=== PATIENT | female | born 1955 | race Caucasian/White ===

== ENCOUNTER 2024-06-28 13:15 | Outpatient (REF) | payer MEDICARE, SELFPAY ==
[2024-06-28 13:49] LABS: Basophils Absolute Auto 0.1 10^3/uL (0.0-0.1); Eosinophils Absolute Auto 0.3 10^3/uL (0.0-0.7); Eosinophils Percent Auto 4.6 % (0.9-7.0); Hematocrit 30.8 % (36.0-48.0); Hemoglobin 9.5 g/dL (12.0-16.0); Immature Granulocytes Abs Auto 0.02 10^3/uL (0.00-0.03); Immature Granulocytes Pct Auto 0.3 % (0.0-0.5); Lymphocytes Absolute Auto 1.2 10^3/uL (1.2-3.8); Mean Corpuscular HGB Conc 30.8 g/dL (29.9-35.2); Mean Corpuscular Hemoglobin 31.5 pg (26.7-34.0); Monocytes Absolute Auto 0.6 10^3/uL (0.3-0.8); Monocytes Percent Auto 8.9 % (1.7-12.0); Neutrophils Absolute Auto 4.1 10^3/uL (1.4-6.5); Neutrophils Percent Auto 66.2 % (43.0-75.0); Platelet Count 249 10^3/uL (150-450); Red Blood Count 3.02 10^6/uL (4.20-5.40); Red Cell Distribution Width 14.4 % (11.0-15.0); White Blood Count 6.2 10^3/uL (4.0-11.0)
[2024-06-28 13:57] LABS: INR 1.17; Prothrombin Time 12.2 sec (9.0-11.6)
[2024-06-28 14:00] LABS: Alanine Aminotransferase 18 U/L (14-59); Albumin Globulin Ratio 0.8; Albumin Level 2.6 g/dL (3.4-5.0); Alkaline Phosphatase 96 U/L (46-116); Anion Gap 14.7; Aspartate Amino Transferase 16 U/L (15-37); BUN Creatinine Ratio 18.2; Bilirubin Total 0.4 mg/dL (0.2-1.0); Calcium 8.7 mg/dL (8.5-10.1); Carbon Dioxide 22.3 mmol/L (21.0-32.0); Chloride 107 mmol/L (98-107); Chol HDL Ratio 1.8; Cholesterol 125 mg/dL (<=200); Estimated GFR (African America 39 (>=60); Estimated GFR (Non-African Ame 32 (>=60); Globulin 3.2 g/dL; Glucose 69 mg/dL (74-106); HDL Cholesterol 68 mg/dL (40-60); Sodium 140 mmol/L (136-145); Total Protein 5.8 g/dL (6.4-8.2); Triglycerides 73 mg/dL (<=150); VLDL CHOLESTEROL 14.6 mg/dL
== END 2024-06-28 13:16 | disposition home or self-care (01) ==
LOC: LAB 13:15
PROVIDERS: Visit Provider Nurse Practitioner Adult Health
DX: N25.81 Secondary hyperparathyroidism of renal origin (principal); I10 Essential (primary) hypertension; Z79.01 Long term (current) use of anticoagulants
CPT/HCPCS: 36415; 80053; 80061; 85025; 85610

== ENCOUNTER 2024-07-29 17:02 | Outpatient (REF) | payer MEDICARE, SELFPAY ==
--- OUTSIDE RECORDS SUMMARY | 2024-07-29 17:07 | XMS_ITS | CCD ---
Author Organization [facility] Care Team Providers Care Lastex Operator Name Role Phone MANJINDER, KHALED Admitting Unavailable MANJINDER, KHALED Attending Unavailable MANJINDER, KHALED Referring Unavailable OSOWIK, CHARLOTTE A Primary Care Unavailable MANJINDER, KHALED Admitting Unavailable MANJINDER, KHALED Attending Unavailable MANJINDER, KHALED Referring Unavailable OSOWIK, CHARLOTTE A Primary Care Unavailable UNKNOWN, PROVIDER Admitting Unavailable UNKNOWN, PROVIDER Attending Unavailable OSOWIK, CHARLOTTE A Referring Unavailable OSOWIK, CHARLOTTE A Primary Care Unavailable OSOWIK, CHARLOTTE A Primary Care Unavailable OSOWIK, CHARLOTTE A Referring Unavailable DEMSTEFANIEL, KIANNA H Attending Unavailable DEMIGUEL, KIANNA H Admitting Unavailable PHYSICIAN, DEFAULT Admitting Unavailable PHYSICIAN, DEFAULT Attending Unavailable OSOWIK, CHARLOTTE A Primary Care Unavailable Osowik, Charlotte A Primary Care Provider JANY SANTIZO Admitting Unavailable JANY SANTIZO Attending Unavailable OSOWIK, CHARLOTTE A Primary Care Unavailable OSOWIK, CHARLOTTE A Primary Care Unavailable Nate Peralta Unavailable Marie Wesley DO Primary Care Provider Fidelina Guillen MD Primary Care Provider Loreta Mcmillan NP Unavailable Fidelina Guillen MD Primary Care Provider ANNA CLEARY Attending Unavailable СЕРГЕЙ DALE Referring Unavailable FIDELINA GUILLEN Primary Care Unavailable Javan Julien MD Primary Care Provider Loreta Mcmillan CNP Unavailable [phone] BIB ALVA Referring Unavailable MANJINDER, KHALED AHMAD Primary Care Unavailabl e ALVA, BIB Referring Unavailable MANJINDER, KHALED AHMAD Primary Care Unavailabl e ALVA, BIB Referring Unavailable MANJINDER, KHALED AHMAD Primary Care Unavailabl e ALVA, BIB Attending Unavailable MANJINDER, KHALED AHMAD Primary Care Unavailabl e DEYANIRA, LORETA A Referring Unavailable MARYJANE, MARIE G Attending Unavailable DEYANIRA, LORETA A Attending Unavailable TODD, JACQUIE Todd Attending Unavailable DEYANIRA, LORETA A Attending Unavailable DEYANIRA, LORETA A Referring Unavailable DEYANIRA, LORETA A Referring Unavailable DEYANIRA, LORETA A Attending Unavailable DEYANIRA, LORETA A Referring Unavailable MORSE, STEPHAN Rodrigez Attending Unavailable MORSE, STEPHAN Rodrigez Referring Unavailable TODD, JACQUIE Todd Attending Unavailable JR. LINARES GEORGE C Attending Unavaila ble DEYANIRA, LORETA Multani Attending Unavailable GREG FLORES Referring Unavailable GREG FLORES Attending Unavailable SERVICE, JOBST Referring Unavailable MARYJANE, MARIE G Primary Care Unavailable SERVICE, JOBST Referring Unavailable MARYJANE, MARIE G Primary Care Unavailable SERVICE, JOBST Referring Unavailable MARYJANE, MARIE G Primary Care Unavailable MARCI CROFT Referring Unavailable WONDERLY, FIDELINA B Primary Care Unavailable SERVICE, JOBST Referring Unavailable WONDERLY, FIDELINA B Primary Care Unavailable SERVICE, JOBST Referring Unavailable WONDERLY, FIDELINA B Primary Care Unavailable MARYJANE, MARIE G Referring Unavailable MARYJANE, MARIE G Primary Care Unavailable SERVICE, JOBST Referring Unavailable WONDERLY, FIDELINA B Primary Care Unavailable SERVICE, JOBST Referring Unavailable WONDERLY, FIDELINA B Primary Care Unavailable SERVICE, JOBST Referring Unavailable WONDERLY, FIDELINA B Primary Care Unavailable SERVICE, JOBST Referring Unavailable WONDERLY, FIDELINA B Primary Care Unavailable SERVICE, JOBST Referring Unavailable WONDERLY, FIDELINA B Primary Care Unavailable SERVICE, JOBST Referring Unavailable WONDERLY, FIDELINA B Primary Care Unavailable KIANNA LUKE Referring Unavailable WONDERLY, FIDELINA B Primary Care Unavailable SERVICE, JOBST Referring Unavailable MARYJANE, MARIE G Primary Care Unavailable SERVICE, JOBST Referring Unavailable WONDERLY, FIDELINA B Primary Care Unavailable SERVICE, JOBST Referring Unavailable WONDERLY, FIDELINA B Primary Care Unavailable SERVICE, JOBST Referring Unavailable WONDERLY, FIDELINA B Primary Care Unavailable SERVICE, JOBST Referring Unavailable WONDERLY, FIDELINA B Primary Care Unavailable SERVICE, JOBST Referring Unavailable WONDERLY, FIDELINA B Primary Care Unavailable SERVICE, JOBST Referring Unavailable WONDERLY, FIDELINA B Primary Care Unavailable SERVICE, JOBST Referring Unavailable WONDERLY, FIDELINA B Primary Care Unavailable SERVICE, JOBST Referring Unavailable WONDERLY, FIDELINA B Primary Care Unavailable WONDERLY, FIDELINA B Primary Care Unavailable HAMLIN, RADHA Attending Unavailable HAMLIN, RADHA Referring Unavailable WONDERLY, FIDELINA B Primary Care Unavailable SERVICE, JOBST Referring Unavailable WONDERLY, FIDELINA B Primary Care Unavailable SERVICE, JOBST Referring Unavailable WONDERLY, FIDELINA B Primary Care Unavailable SERVICE, JOBST Referring Unavailable WONDERLY, FIDELINA B Primary Care Unavailable SERVICE, JOBST Referring Unavailable MARIE WESLEY G Primary Care Unavailable SERVICE, JOBST Referring Unavailable MARIE WESLEY G Primary Care Unavailable SERVICE, JOBST Referring Unavailable WONDERLY, FIDELINA B Primary Care Unavailable SERVICE, JOBST Referring Unavailable WONDERLY, FIDELINA B Primary Care Unavailable SERVICE, JOBST Referring Unavailable WONDERLY, FIDELINA B Primary Care Unavailable WONDERLY, FIDELINA B Primary Care Unavailable JOHANA KOVACS Attending Unavailable RADHA HAMLIN Attending Unavailable HAMLIN, RADHA Referring Unavailable WONDERLY, FIDELINA B Primary Care Unavailable JOHANA KOVACS Attending Unavailable JOHANA KOVACS Referring Unavailable WONDERLY, FIDELINA B Primary Care Unavailable NURIA BRADEN Attending Unavailable CHARLOTTE BOATENG Referring Unavailable WONDERLY, FIDELINA B Primary Care Unavailable WONDERLY, FIDELINA B Primary Care Unavailable CORDELL MORALES Attending Unavailable CARDIOLOGY, [facility] PH[facility]IAN Consulting Unavailable MONICA, ALANNA Z Admitting Unavailable RAFAT SEPULVEDA Consulting Unavailable JOHANA KOVACS Referring Unavailable WONDERLY, FIDELINA B Primary Care Unavailable WONDERLY, FIDELINA B Primary Care Unavailable RAFAT SEPULVEDA Attending Unavailable RAFAT SEPULVEDA Referring Unavailable WONDERLY, FIDELINA B Primary Care Unavailable JOSE G BETANCUR Attending Unavailable MARYJANE MARIE G Referring Unavailable MARYJANE, MARIE G Primary Care Unavailable GADANGI, MICAH JAQUELINE Referring Unavaila ble WONDERLY, FIDELINA B Primary Care Unavailable DANIEL MONTALVO Referring Unava ilable WONDERLY, FIDELINA B Primary Care Unavailable MONICA, ALANNA Z Referring Unavailable WONDERLY, FIDELINA B Primary Care Unavailable RAFAT SEPULVEDA Attending Unavailable WONDERLY, FIDELINA B Referring Unavailable WONDERLY, FIDELINA B Primary Care Unavailable MADELEINE KELLY Referring Unavailable FIDELINA GUILLEN Primary Care Unavailable RAFAT SEPULVEDA Attending Unavailable FIDELINA GUILLEN Referring Unavailable FIDELINA GUILLEN Primary Care Unavailable Allergies Allergy Classification Reported Allergen(s) Allergy Type Date of Onset Reaction(s) Facility Cephalosporins (antibiotic) (1 source) Cephalexin Drug Allergy 06-02-20 18 Rash, Swelling, Shortness of Breath [facility] HMG-CoA Reductase Inhibitors (statins) (1 source) atorvastatin Drug Allergy 06-02-20 18 Other: See Comments [facility] NIFEdipine (1 source) NIFEdipine Drug Allergy 06-02-20 18 Other: See Comments [facility] Penicillins (antibiotic) (2 sources) Dicloxacillin Drug Allergy 06-02-20 18 Rash, Swelling, Shortness of Breath, Hives [facility] (3 sources) Cephalexin Drug Allergy 10-13-19 14 Unknown [facility] (3 sources) NIFEdipine Drug Allergy 01-04-20 15 Unknown [facility] (6 sources) Penicillins; Translations: [PENICILLINS] Drug allergy (disorder) 10-13-19 14 [facility] (20 sources) Cephalexin; Translations: [CEPHALEXIN] Drug Allergy 03-27-20 14 Shortness Of Breath, Swelling, Rash [place], [place] (2 sources) Penicillins Propensity to adverse reactions to drug 03-27-20 14 Shortness Of Breath, Swelling, Rash [place], [place] (17 sources) atorvastatin; Translations: [ATORVASTATIN] Drug Allergy 10-25-19 17 muscle cramps [facility] (2 sources) Dicloxacillin Drug Allergy Unknown [facility] Other (2 sources) Penicillin Drug Allergy Unknown [facility] Other (19 sources) Dicloxacillin; Translations: [DICLOXACILLIN SODIUM] Drug Allergy 07-28-20 16 Shortness Of Breath, Swelling, Rash [facility] (20 sources) NIFEdipine; Translations: [NIFEDIPINE] Drug Allergy 10-08-19 17 Hypotension, Other: See Comments [facility] (14 sources) Penicillin G; Translations: [PENICILLIN G POTASSIUM] Drug Allergy 09-27-20 22 Hives [facility] (15 sources) Penicillins Propensity to adverse reactions to drug 10-08-19 17 Hives, Swelling [facility] (7 sources) atorvastatin Drug Allergy 10-25-19 17 Other: See Comments [facility] (3 sources) Nifedipine Propensity to adverse reactions 10-08-19 17 [facility] (3 sources) Penicillins Drug Intolerance 03-27-20 14 Hives, Rash, Shortness of breath, Swelling [facility] (1 source) atorvastatin; Translations: [ATORVASTATIN CALCIUM] Drug Allergy 06-02-20 18 [facility] Rep[facility] Medications Current Medications Medication Drug Class(es) Dates Sig (Normalized) Sig (Original) acetaminophen 500 mg oral tablet (11 sources) Start: 06-10-2024 take 2 tablets by mouth every eight hours acetaminophen (TYLENOL EXTRA STRENGTH) 500 mg tablet Take 2 tablets (1,000 mg total) by mouth every 8 (eight) hours. 30 tablet 06/10/2024 Active Start: 09-27-2022 take 2 tablets by mo uth every six hours as needed for pain acetaminophen (TYLENOL EXTRA STRENGTH) 500 mg tablet Take 2 tablets (1,000 mg total) by mouth every 6 (six) hours as needed for pain. 30 tablet 0 09/27/2022 Active acetaminophen 325 mg / butalbital 50 mg / caffeine 40 mg oral tablet (5 sources) Barbiturate, Central Nervous System Stimulant, Methylxanthine take 1 tablet by mouth every four hours as needed acetaminophen 325 mg-caffeine 40 mg-butalbital 50 mg (FIORICET) per tablet Take 1 tablet by mouth every 4 hours as needed for Headache. 0 Active amLODIPine 10 mg oral tablet (20 sources) Dihydropyridine Calcium Channel Amarjit Start: 09-07-20 23 take 1 tablet by mouth once daily amLODIPine (NORVASC) 10 mg tablet Take 10 mg by mouth once daily. 0 09/07/2023 Active Start: 03-07-2014 amLODIPine (NO RVASC) 5 MG tablet 5 mg 0 03/07/2014 Active take 2 tablets by mo uth once daily at breakfast amLODIPine (NORVASC) 5 mg tablet Take 2 tablets (10 mg total) by mouth daily with breakfast. 0 Active Ascorbic Acid (1 source) Vitamin C Vitamin C Active ascorbic acid 226 mg / beta carotene 16943 unt / cuprous oxide 0.8 mg / dl-alpha tocopheryl acetate 200 unt / zinc oxide 34.8 mg oral capsule (2 sources) Vitamin C PreserVision ARE DS - as directed Orally Active aspirin 81 mg delayed release oral tablet (7 sources) Platelet Aggregation Inhibitor, Nonsteroidal Anti-inflammatory Drug take 1 tablet by mouth once daily aspirin, enteric coated (ASPIRIN, ENTERIC COATED) 81 mg EC tablet Take 81 mg by mouth once daily. 0 Active take 1 tablet by mouth once kathi y aspirin 81 MG tablet Take 81 mg by mouth daily. 0 Active calcium citrate 950 mg oral tablet (2 sources) Start: 06-10-2024 calcium citrat e (CALCITRATE) 200 mg (950 mg) tablet Take 2 tablets (400 mg total) by mouth in the morning and 2 tablets (400 mg total) at noon and 2 tablets (400 mg total) in the evening. Take with meals. 06/10/2024 Active cholecalciferol 0.05 mg oral tablet (4 sources) Vitamin D Start: 06-10-2024 take 1 tablet by mouth in the morning cholecalciferol, vitamin D3, 2,000 units tablet Take 1 tablet (2,000 Units total) by mouth in the morning. 06/10/2024 Active take 1 tablet by mouth twice eloisa ly Cholecalciferol (VITAMIN D3) 125 MCG (5000 UT) TABS Take 1 tablet by mouth 2 times daily 0 Active cinnamon bark 500 mg oral capsule (5 sources) take 1 capsule by mouth once daily Cinnamon Bark 500 mg cap Take 500 mg by mouth once daily. 0 Active docusate sodium 100 mg oral capsule (12 sources) take 1 capsule by mouth once daily as needed docusate sodium (COLACE) 100 mg capsule 1 capsule as needed Orally Once a day for 30 day(s) 0 Active docusate sodium 50 mg / sennosides, half-way 8.6 mg oral tablet (2 sources) Start: 06-10-20 24 take 2 tablets by mouth once daily sennosides-docusat e sodium (SENOKOT-S) 8.6-50 mg Take 2 tablets by mouth nightly. 06/10/2024 Active DULoxetine 60 mg delayed release oral capsule (20 sources) Serotonin and Norepinephrine Reuptake Inhibitor Start: 06-17-20 End: 06-16-20 24 take 1 capsule by mouth once daily DULoxetine (CYMBALTA) 60 mg capsule Take 60 mg by mouth once daily. 0 06/17/2023 Active ezetimibe 10 mg oral tablet (10 sources) Dietary Cholesterol Absorption Inhibitor Start: 09-30-19 24 End: 09-29-19 25 take 1 tablet by mouth once daily ezetimibe (ZETIA) 10 mg tablet Take 1 tablet by mouth once daily. 0 09/30/2023 Active famotidine 40 mg oral tablet (5 sources) Histamine-2 Receptor Antagonist take 1 tablet by mouth once daily famotidine (PEPCID) 40 mg tablet Take 40 mg by mouth once daily. 0 Active ferrous sulfate 325 mg oral tablet (18 sources) take 1 tablet by mouth once daily at breakfast ferrous sulfate 325 (65 FE) mg tablet Take 1 tablet (325 mg total) by mouth daily with breakfast. Active flecainide acetate 100 mg oral tablet (20 sources) Antiarrhythmic Start: 04-13-20 flecainide (Tambocor) 100 MG tablet every 12 (twelve) hours. 0 04/13/2023 Active Start: 06-23-2016 take 1 tablet by cristy every twelve hours flecainide (TAMBOCOR) 100 mg tablet Take 1 tablet (100 mg total) by mouth every 12 (twelve) hours. 06/23/2016 Active Start: 03-07-2014 flecainide (TA MBOCOR) 100 MG tablet 100 mg 2 times daily 0 03/07/2014 Active Flecainide Aceta te 150 MG as directed Orally every 12 hrs Active FLUoxetine 40 mg oral capsule (7 sources) Serotonin Reuptake Inhibitor Start: 03-07-2014 FLUoxetine (PROZAC) 40 MG capsule furosemide 20 mg oral tablet (19 sources) Loop Diuretic Start: 09-15-2023 take 1 tablet by mouth once daily furosemide (LASIX) 20 mg tablet Take 20 mg by mouth once daily. 0 09/15/2023 Active gabapentin 100 mg oral capsule (7 sources) Anti-epileptic Agent Start: 06-10-2024 take 1 capsule by mouth three times daily gabapentin (NEURONTIN) 100 mg capsule Indications: Fracture of distal femur (CMS-HCC) Take 1 capsule (100 mg total) by mouth 3 (three) times a day. 21 capsule 06/10/2024 Active take 1 capsule by mo [facility] three times daily gabapentin (NEURONTIN) 300 mg capsule Ta ke 300 mg by mouth three times daily. 0 Active hydrALAZINE hydrochloride 50 mg oral tablet (20 sources) Arteriolar Vasodilator Start: 12-12-2022 End: 07-21-2024 take 1 tablet by mouth three times daily hydrALAZINE (APRESOLINE) 50 mg tablet Take 1 tablet (50 mg total) by mouth 3 (three) times a day. 12/12/2022 Active iv contrast (will be provided with radiology test) (2 sources) Start: 03-23-2024 End: 03-24-2024 iv contrast (will be provided with radiology test) Indications: Demyelinating disease of central nervous system (HCC) MRI CSP Inject, intravenously, once for 1 dose. No IV access, insert saline lock prior to the beginning of sedation, infusion, injection of imaging exam. Discontinue saline lock post exam. If Pt. has a central line or IVAD, may access for administration according to line specific nursing protocol. Once exam is complete flush line and de-access according to line specific nursing protocol in the MR contrast administration guidelines link. 1 Each 0 03/23/2024 03/24/2024 Active Start: 03-23-2024 End: 03-24-2024 inject 1 dose intravenously once iv contrast (will be provided with radiology test) Indications: Demyelinating disease of central nervous system (HCC) MRI TSP Inject, intravenously, once for 1 dose. No IV access, insert saline lock prior to the beginning of sedation, infusion, injection of imaging exam. Discontinue saline lock post exam. If Pt. has a central line or IVAD, may access for administration according to line specific nursing protocol. Once exam is complete flush line and de-access according to line specific nursing protocol in the MR contrast administration guidelines link. 1 Each 0 03/23/2024 03/24/2024 Active losartan potassium 25 mg oral tablet (20 sources) Angiotensin 2 Receptor Amarjit Start: 06-17-2023 End: 06-16-2024 take 1 tablet by mouth once daily losartan (COZAAR) 25 mg tablet Take 25 mg by mouth once daily. 0 06/17/2023 Active Magnesium (5 sources) take 1 tablet by mouth every twenty-four hours as needed Magnesium 250 mg tab Take 250 mg by mouth at bedtime as needed (Headaches). 0 Active magnesium oxide 400 mg oral tablet (2 sources) take 1 tablet by mouth once daily magnesium oxide (MAG-OX) 400 MG tablet Take 400 mg by mouth daily 0 Active melatonin 10 mg oral tablet (16 sources) take 1 tablet by mouth once daily melatonin 10 mg tablet Take 10 mg by mouth nightly. Active Melatonin 10 MG capsule Take by mouth. 0 Active Melatonin 10 MG as directed Orally Active methocarbamol 500 mg oral tablet (2 sources) Muscle Relaxant Start: 06-10-2024 methocarbamoL (ROBAXIN) 500 mg tablet Take 1 tablet (500 mg total) by mouth in the morning and 1 tablet (500 mg total) at noon and 1 tablet (500 mg total) in the evening and 1 tablet (500 mg total) before bedtime. 28 tablet 06/10/2024 Active methylphenidate hydrochloride 10 mg oral tablet (2 sources) Central Nervous System Stimulant take 1 tablet by mouth once daily methylphenidate (RITALIN) 10 MG tablet Take 10 mg by mouth daily. 0 Active 24 hr metoprolol succinate 50 mg extended release oral tablet (10 sources) beta-Adrenergic Amarjit take 1 tablet by mouth once daily metoprolol succinate ER (TOPROL XL) 50 mg 24 hr tablet Take 50 mg by mouth once daily. 0 Active take 1 tablet by mouth once kathi y metoprolol succinate (TOPROL XL) 25 MG extended release tablet Take 25 mg by mouth daily 0 Active Multiple Vitamins-Minerals ( PRESERVISION AREDS 2 PO) (3 sources) Multiple Vitamin s-Minerals (PRESERVISION AREDS 2 PO) Take by mouth. 0 Active NONFORMULARY (2 sources) NONFORMULARY Royer e 1 capsule by mouth Preser [facility] 2 1 capsule at night 0 Active NONFORMULARY Royer e 1 capsule by mouth Pres[facility] Areds 2 1 capsule at night 0 Suspended omega-3/dha/epa/fish oil (OMEGA-3 FISH OIL ORAL) (5 sources) omega-3/dha/epa/ fish oil (OMEGA-3 FISH OIL ORAL) Take 500 mg by mouth three times daily. 0 Active 24 hr oxybutynin chloride 15 mg extended release oral tablet (20 sources) Cholinergic Muscarinic Antagonist Start : 06-13 take 1 tablet by mouth once daily in the morning oxybutynin XL (DITROPAN XL) 15 mg 24 hr tablet take one tablet by mouth every morning 90 tablet 06/13/2024 Active Start: 03-20-2023 take 1 tablet by cristy th every twenty-four hours in the morning oxybutynin XL (DITROPAN XL) 15 mg 24 hr tablet Take 1 tablet (15 mg total) by mouth in the morning. 90 tablet 11 03/20/2023 Active Start: 08-07-2022 take 1 tablet by mouth once da jeffrey oxybutynin ER (DITROPAN XL) 15 mg 24 hr Extended Rel Tab Take 15 mg by mouth once daily. 0 08/07/2022 Active pantoprazole 40 mg delayed release oral tablet (19 sources) Proton Pump Inhibitor Start: 12-03-2022 End: 12-18-2023 take 1 tablet by mouth in the morning pantoprazole (PROTONIX) 40 mg EC tablet Indications: History of sleeve gastrectomy , Postsurgical malabsorption , Malnutrition following gastrointestinal surgery Take 1 tablet (40 mg total) by mouth in the morning. 90 tablet 3 12/18/2023 Active Phenazopyridine HCl & UTI Test (URISTAT UTI RELIEF HANNA CO) (3 sources) Phenazopyridine HCl & UTI Test (URISTAT UTI RELIEF HANNA CO) by Combination route. 0 Active Lucgzq-AxLpp-Vhsyh-Ca -Reno 3 ( + Complete Multi) 18-0.8 & 290 MG therapy (3 sources) Lhduuu-YeXke-Uyz hf-Ca -Reno 3 ( + Complete Multi) 18-0.8 & 290 MG therapy Take by mouth 0 Active [id number]-fttmd acid 29 mg iron- 1 mg chew (5 sources) take 1 mg by mouth once daily [id number] acid 29 mg iron- 1 mg chew Take 1 mg by mouth once daily. 0 Active Vit-Fe Fumarate-FA ( VITAMINS PO) (2 sources) Vit-Fe Fumarate-FA ( VITAMINS PO) Take by mouth 0 Active Vit-Fe Fumarate-FA ( VITAMINS PO) Take by mouth 0 Suspended rosuvastatin calcium 5 mg oral tablet (20 sources) HMG-CoA Reductase Inhibitor Start: 12-15-2022 take 1 tablet by mouth in the evening rosuvastatin (CRESTOR) 5 mg tablet Take 1 tablet (5 mg total) by mouth in the evening. 12/15/2022 Active take 1 tablet by mouth once kathi y rosuvastatin (CRESTOR) 10 mg tablet Take 10 mg by mouth once daily. 0 Active simvastatin 40 mg oral tablet (2 sources) HMG-CoA Reductase Inhibitor take 1 tablet by mouth once daily simvastatin (ZOCOR) 40 MG tablet Take 40 mg by mouth nightly 0 Active 1000 ml sodium chloride 9 mg/ml injection (1 source) Start: 0 0.9 % sodium chloride infusion solifenacin succinate 10 mg oral tablet (5 sources) Cholinergic Muscarinic Antagonist take 5 mg by mouth once daily solifenacin 10 mg tablet Take 5 mg by mouth once daily. 0 Active topiramate 50 mg oral tablet (20 sources) Start: 4 End: 4 take 1 tablet by mouth twice daily topiramate (TOPAMAX) 50 mg tablet Indications: Headache disorder , Neck pain TAKE ONE TABLET BY MOUTH TWICE A DAY 180 tablet 06/11/2022 Active take 1 tablet by mouth once kathi y topiramate (TOPAMAX) 50 mg tablet Take 50 mg by mouth once daily. 0 Active vit A/vit C/vit E/zinc/coppe r (PRESERVISION AREDS ORAL) (10 sources) take 1 tablet by cristy th in the morning vit A/vit C/vit E/zinc/copper (PRESERVISION AREDS ORAL) Take 1 tablet by mouth in the morning. Active take 1 tablet by mouth in the mo rning vit A/vit C/vit E/zinc/copper (PRESERVISION AREDS ORAL) Take 1 tablet by mouth in the morning. 0 Active vit C,K-Rm-spjro-lutein-zeax an (PRESERVISION AREDS 2) [phone] bg-tsvs-vq-mg cap (5 sources) vit C,E-Zn-coppr -lutein-zeaxan (PRESERVISION AREDS 2) [phone] ha-alwu-co-mg cap Take 1 capsule by mouth twice daily. 0 Active vitamin b12 0.1 mg oral tabl et (20 sources) Vitamin B12 cyanocobalamin ( vitamin B-12) 100 MCG tablet Take 10 tablets (1,000 mcg total) by mouth in the morning. Active take 1 tablet by mouth once kathi y cyanocobalamin (VITAMIN B-12) 1,000 mcg tab Take 1,000 mcg by mouth once daily. 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 or as directed by Natalie BAXTER (Medication Therapy Management). 90 tablet 1 02/23/2024 Active take 1 tablet by mouth once warf yordan (COUMADIN) 7.5 mg tablet Take 7.5 mg by mouth every Thursday,Thursday,Thursday,Thursday. 0 Active take 1 tablet by cristy th every week warfarin (COUMADIN) 3 MG tablet Take 3 m g by mouth once a week Thursday only 0 Active Completed/Discontinued Medications Medication Drug Class(es) Dates Sig (Normalized) Sig (Original) Cinnamon Preparation (1 source) Non-Standardize d Food Allergenic Extract End: 0 CINNAMON PO Take by mouth. 0 08/07/2020 Discontinued (LIST CLEANUP) hydroCHLOROthiazide 12.5 mg oral capsule (1 source) Thiazide Diuretic Start: 4 End: 0 hydrochlorothiazide (MICROZIDE) 12.5 MG capsule lisinopril 40 mg oral tablet (1 source) Angiotensin Converting Enzyme Inhibitor Start: 4 End: 0 lisinopril (PRINIVIL;ZESTRIL) 40 MG tablet Multiple Vitamins-Minerals (WOMENS MULTI VITAMIN & MINERAL PO) (1 source) End: 0 Multiple Vitamins-Minerals (WOMENS MULTI VITAMIN & MINERAL PO) Take by mouth. 0 08/07/2020 Discontinued (LIST CLEANUP) NON FORMULARY (2 sources) End: 4 NON FORMULARY Lymph system support from [employer] 0 10/28/2023 Discontinued (Therapy completed) Reno-3 Fatty Acids (FISH OIL PO) (1 source) End: 0 Reno-3 Fatty Acids (FISH OIL PO) Take by mouth. 0 08/07/2020 Discontinued (LIST CLEANUP) omeprazole 20 mg delayed release oral capsule (1 source) Proton Pump Inhibitor Start: 4 End: 0 omeprazole (PRILOSEC) 20 MG capsule pregabalin 150 mg oral capsule (1 source) Start: 4 End: 0 LYRICA 150 MG capsule traMADol hydrochloride 50 mg oral tablet (1 source) Opioid Agonist Start: 4 End: 0 traMADol (ULTRAM) 50 MG tablet Problems Active Problems Problem Classification Problem Date Documented Date Episodic/Chronic Administrative/social admission (2 sources) Patient encounter status; Translations: [Persons encountering health services in other specified circumstances] 11-01-2023 Episodic Asthma (16 sources) Asthma; Translations: [Unspecified asthma, uncomplicated] Onset: 7 11-10-2016 Chronic Cardiac dysrhythmias (20 sources) Paroxysmal atrial fibrillation; Translations: [Unspecified atrial fibrillation] Onset: 4 Resolved: 3 08-09-2023 Chronic Cataract (20 sources) Nuclear sclerotic cataract; Translations: [Age-related nuclear cataract, bilateral] Onset: 6 Resolved: 3 07-28-2016 Chronic Chronic kidney disease (20 sources) Chronic kidney disease stage 3B ; Translations: [Stage 3b chronic kidney disease] Onset: 7 Resolved: 3 08-10-2023 Chronic Chronic kidney disease (1 source) Chronic kidney disease; Translations: [Chronic kidney disease, stage 3b] Onset: 3 Complications of surgical procedures or medical care (14 sources) Post-surgical malabsorption; Translations: [Postsurgical malabsorption, not elsewhere classified] Onset: 4 10-27-2023 Chronic Disorders of lipid metabolism (19 sources) Hyperlipidemia; Translations: [Hyperlipidemia, unspecified] Onset: 7 08-09-2023 Chronic E Codes: Fall (1 source) Unspecified fall, initial encounter; Translations: [Unspecified fall, initial encounter] Onset: 4 Episodic E Codes: Fall (2 sources) Fall Onset: 4 Essential hypertension (20 sources) Essential (primary) hypertension; Translations: [Benign essential hypertension] Onset: 4 08-09-2023 Chronic Fracture of lower limb (2 sources) Unspecified fracture of lower end of right femur, initial encounter for closed fracture; Translations: [Unspecified fracture of lower end of unspecified femur, initial encounter for closed fracture] Onset: 4 Episodic Fracture of lower limb (4 sources) Closed supracondylar fracture of femur; Translations: [Displaced supracondylar fracture without intracondylar extension of lower end of left femur, initial encounter for closed fracture] Onset: 4 06-03-2024 Episodic Genitourinary symptoms and ill-defined conditions (17 sources) Unspecified urinary incontinence; Translations: [Urge incontinence of urine] Onset: 8 01-27-2023 Chronic Genitourinary symptoms and ill-defined conditions (11 sources) Nocturia; Translations: [Urgent desire to urinate] Onset: 8 10-28-2023 Episodic Hypertension with complications and secondary hypertension (7 sources) Secondary hypertension; Translations: [Other secondary hypertension] Onset: 2 11-01-2023 Chronic Mood disorders (20 sources) Moderate major depression, single episode; Translations: [Major depressive disorder, single episode, moderate] Onset: 7 10-27-2016 Chronic Osteoarthritis (20 sources) Arthritis; Translations: [Unspecified osteoarthritis, unspecified site] Onset: 4 11-10-2016 Chronic Osteoporosis (17 sources) Senile osteoporosis; Translations: [Age-related osteoporosis without current pathological fracture] Onset: 7 11-10-2016 Chronic Other bone disease and musculoskeletal deformities (5 sources) Idiopathic kyphoscoliosis; Translations: [Other idiopathic scoliosis, site unspecified] Onset: 4 10-28-2023 Chronic Other congenital anomalies (5 sources) Congenital spondylolisthesis; Translations: [Congenital spondylolisthesis] Onset: 4 11-01-2023 Chronic Other connective tissue disease (5 sources) Artificial knee joint present; Translations: [Presence of artificial knee joint, bilateral] Onset: 2 11-01-2023 Chronic Other connective tissue disease (1 source) Unspecified disorder of synovium and tendon, right shoulder; Translations: [Unspecified disorder of synovium and tendon, right shoulder] Onset: 4 Episodic Other diseases of kidney and ureters (16 sources) Hyperparathyroidism due to renal insufficiency; Translations: [Secondary hyperparathyroidism of renal origin] Onset: 7 10-27-2016 Chronic Other diseases of veins and lymphatics (20 sources) Lymphedema; Translations: [Lymphedema, not elsewhere classified] Onset: 4 08-10-2023 Chronic Other diseases of veins and lymphatics (5 sources) Lymphedema, not elsewhere classified; Translations: [Other lymphedema] Onset: 3 10-28-2023 Chronic Other ear and sense organ disorders (2 sources) Decreased hearing ; Translations: [Unspecified hearing loss, unspecified ear] 11-01-2023 Chronic Other eye disorders (1 source) Bilateral vitreous floaters; Translations: [Other vitreous opacities, bilateral] 12-18-2023 Chronic Other eye disorders (1 source) Bilateral posterior vitreous detachment; Translations: [Vitreous degeneration, bilateral] 12-18-2023 Chronic Other eye disorders (1 source) Other vitreous opacities, bilateral; Translations: [Other vitreous opacities, bilateral] Onset: 4 Chronic Other eye disorders (1 source) Vitreous degeneration, bilateral; Translations: [Vitreous degeneration, bilateral] Onset: 4 Chronic Other eye disorders (1 source) Dry eyes; Translations: [Dry eye syndrome of bilateral lacrimal glands] 12-18-2023 Episodic Other eye disorders (1 source) Dry eye syndrome of bilateral lacrimal glands; Translations: [Dry eye syndrome of bilateral lacrimal glands] Onset: 4 Episodic Other gastrointestinal disorders (2 sources) Diarrhea; Translations: [Diarrhea, unspecified] 11-01-2023 Episodic Other hematologic conditions (1 source) History of anemia; Translations: [Personal history of diseases of the blood and blood-forming organs and certain disorders involving the immune mechanism] 10-27-2023 Episodic Other nervous system disorders (15 sources) Neuropathy; Translations: [Polyneuropathy, unspecified] Onset: 3 09-16-2019 Chronic Other nervous system disorders (3 sources) Polyneuropathy; Translations: [Polyneuropathy, unspecified] Onset: 2 06-17-2023 Chronic Other nervous system disorders (2 sources) Demyelinating disease of central nervous system; Translations: [Demyelinating disease of central nervous system, unspecified] 03-23-2024 Chronic Other nervous system disorders (1 source) Demyelinating disease of central nervous system, unspecified; Translations: [Demyelinating disease of central nervous system (HCC)] Onset: 4 Chronic Other nervous system disorders (1 source) Idiopathic progressive polyneuropathy; Translations: [Idiopathic progressive neuropathy] 05-12-2024 Chronic Other nervous system disorders (2 sources) Ataxia; Translations: [Ataxia, unspecified] 03-23-2024 Episodic Other nervous system disorders (1 source) Ataxia, unspecified; Translations: [Ataxia] Onset: 4 Episodic Other nutritional; endocrine; and metabolic disorders (14 sources) Obesity; Translations: [Obesity, unspecified] Onset: 4 08-10-2023 Chronic Other nutritional; endocrine; and metabolic disorders (1 source) H/O: raised blood lipids; Translations: [Personal history of other endocrine, nutritional and metabolic disease] 10-27-2023 Episodic Peripheral and visceral atherosclerosis (2 sources) Atherosclerosis of aorta; Translations: [Atherosclerosis of aorta] 11-01-2023 Chronic Residual codes; unclassified (14 sources) Sleep apnea; Translations: [Sleep apnea, unspecified] Onset: 3 09-16-2019 Chronic Spondylosis; intervertebral disc disorders; other back problems (12 sources) Low back pain; Translations: [Low back pain] 09-16-2019 Episodic Unclassified (2 sources) DX Onset: 8 Unclassified (1 source) PVD Onset: 4 Unclassified (1 source) EMS Onset: 4 Unclassified (1 source) Establish Care Onset: 4 Unclassified (1 source) Post-op Onset: 4 Unclassified (1 source) EMS//// 68 yo F Onset: 4 Unclassified (1 source) Eye Exam Onset: 4 Past or Other Problems Problem Classification Problem Date Documented Da te Episodic/Chronic Anxiety disorders (19 sources) Mixed anxiety and depressive disorder; Translations: [Other specified anxiety disorders] Onset: 7 Resolved: 3 08-10-2023 Chronic Blindness and vision defects (16 sources) Visual impairment; Translations: [Unspecified visual loss] Onset: 3 Resolved: 3 08-10-2023 Chronic Blindness and vision defects (20 sources) Bilateral hyperopia of eyes; Translations: [Hypermetropia, bilateral] Onset: 9 Resolved: 3 03-18-2019 Episodic Conditions associated with dizziness or vertigo (3 sources) Dizziness; Translations: [Dizziness and giddiness] Onset: 3 09-30-2023 Episodic Conduction disorders (17 sources) Atrioventricular block, first degree; Translations: [First degree atrioventricular block] Onset: 7 Resolved: 3 08-10-2023 Chronic Deficiency and other anemia (16 sources) Iron deficiency anemia; Translations: [Iron deficiency anemia, unspecified] Onset: 7 08-10-2023 Episodic Deficiency and other anemia (19 sources) Anemia; Translations: [Anemia, unspecified] Onset: 7 Resolved: 3 08-10-2023 Episodic Deficiency and other anemia (5 sources) Iron deficiency anemia secondary to inadequate dietary iron intake; Translations: [Other iron deficiency anemias] Onset: 7 10-28-2023 Episodic Disorders of teeth and jaw (14 sources) Tooth disorder; Translations: [Disorder of teeth and supporting structures, unspecified] Onset: 3 Resolved: 3 08-10-2023 Episodic Esophageal disorders (20 sources) Gastroesophageal reflux disease without esophagitis; Translations: [Gastro-esophageal reflux disease without esophagitis] Onset: 7 Resolved: 0 02-08-2019 Chronic Fluid and electrolyte disorders (14 sources) Hypokalemia; Translations: [Hypokalemia] Onset: 3 08-10-2023 Episodic Gastrointestinal hemorrhage (14 sources) Gastrointestinal hemorrhage; Translations: [Gastrointestinal hemorrhage, unspecified] Onset: 3 Resolved: 3 08-10-2023 Episodic Headache; including migraine (14 sources) Migraine; Translations: [Migraine, unspecified, not intractable, without status migrainosus] Onset: 3 Resolved: 3 08-10-2023 Chronic Headache; including migraine (8 sources) Headache disorder; Translations: [Other headache syndrome] Onset: 7 09-30-2023 Episodic Malaise and fatigue (19 sources) Fatigue; Translations: [Other fatigue] Onset: 8 Resolved: 3 08-10-2023 Episodic Mood disorders (11 sources) Mood disorders Onset: 3 Resolved: 4 08-09-2023 Nonspecific chest pain (14 sources) Chest pain; Translations: [Chest pain, unspecified] Onset: 3 Resolved: 4 08-09-2023 Episodic Other aftercare (19 sources) Long-term current use of anticoagulant; Translations: [terminal superintendent (current) use of anticoagulants] Onset: 7 10-02-2023 Episodic Other aftercare (1 source) intermediate (current) use of anticoagulants; Translations: [intermediate (current) use of anticoagulants] Onset: 8 Episodic Other and ill-defined heart disease (16 sources) Left ventricular hypertrophy; Translations: [Cardiomegaly] Onset: 7 Resolved: 3 08-10-2023 Chronic Other circulatory disease (2 sources) Postural orthostatic tachycardia syndrome ; Translations: [Postural orthostatic tachycardia syndrome (POTS)] Onset: 4 Episodic Other connective tissue disease (14 sources) Muscle weakness; Translations: [Muscle weakness (generalized)] Onset: 9 Resolved: 3 08-10-2023 Episodic Other connective tissue disease (14 sources) Recurrent falls ; Translations: [Repeated falls] Onset: 3 Resolved: 3 08-10-2023 Episodic Other connective tissue disease (5 sources) Falls; Translations: [Repeated falls] Onset: 3 10-28-2023 Episodic Other connective tissue disease (5 sources) Neurogenic claudication; Translations: [Other symptoms and signs involving the nervous system] Onset: 4 11-01-2023 Episodic Other connective tissue disease (3 sources) Tear of right rotator cuff; Translations: [Unspecified rotator cuff tear or rupture of right shoulder, not specified as traumatic] Onset: 2 09-30-2023 Episodic Other diseases of bladder and urethra (20 sources) Disorder of bladder; Translations: [Bladder disorder, unspecified] Onset: 7 Resolved: 3 08-10-2023 Chronic Other ear and sense organ disorders (16 sources) Tinnitus; Translations: [Tinnitus, unspecified ear] Onset: 3 Resolved: 3 08-10-2023 Episodic Other eye disorders (16 sources) Vitreous floaters of right eye; Translations: [Other vitreous opacities, right eye] Onset: 9 Resolved: 3 08-10-2023 Chronic Other eye disorders (16 sources) Posterior vitreous detachment of right eye; Translations: [Vitreous degeneration, right eye] Onset: 9 Resolved: 3 08-10-2023 Chronic Other eye disorders (14 sources) Vitreous syneresis; Translations: [Other vitreous opacities, left eye] Onset: 9 Resolved: 3 08-10-2023 Chronic Other eye disorders (20 sources) Tear film insufficiency; Translations: [Dry eye syndrome of unspecified lacrimal gland] Onset: 6 Resolved: 3 08-10-2023 Episodic Other gastrointestinal disorders (16 sources) History of bariatric surgical procedure; Translations: [Bariatric surgery status] Onset: 9 Resolved: 3 08-10-2023 Episodic Other hematologic conditions (3 sources) ESR raised; Translations: [Elevated erythrocyte sedimentation rate] Onset: 9 09-30-2023 Episodic Other hematologic conditions (1 source) Personal history of diseases of the blood and blood-forming organs and certain disorders involving the immune mechanism; Translations: [Personal history of diseases of the blood and blood-forming organs and certain disorders involving the immune mechanism] Onset: 4 Episodic Other injuries and conditions due to external causes (14 sources) Conjunctival foreign body; Translations: [Foreign body in conjunctival sac, left eye, initial encounter] Onset: 6 Resolved: 4 08-10-2023 Episodic Other lower respiratory disease (1 source) Other forms of dyspnea; Translations: [OTHER FORMS OF DYSPNEA] Onset: 8 Episodic Other lower respiratory disease (3 sources) Dyspnea; Translations: [Dyspnea, unspecified] Onset: 3 09-30-2023 Episodic Other nervous system disorders (11 sources) Disorder of muscle; Translations: [Myopathy, unspecified] Onset: 9 Resolved: 3 08-10-2023 Chronic Other nervous system disorders (16 sources) Magnetic resonance imaging of brain abnormal; Translations: [White matter disease, unspecified] Onset: 9 Resolved: 3 08-10-2023 Episodic Other nervous system disorders (10 sources) Abnormal gait; Translations: [Unspecified abnormalities of gait and mobility] Onset: 8 11-01-2023 Episodic Other nervous system disorders (3 sources) White matter disease; Translations: [White matter disease, unspecified] Onset: 3 06-17-2023 Episodic Other nervous system disorders (3 sources) Impairment of balance; Translations: [Other abnormalities of gait and mobility] Onset: 3 06-17-2023 Episodic Other non-traumatic joint disorders (11 sources) Rotator cuff arthropathy of right shoulder; Translations: [Other specific arthropathies, not elsewhere classified, right shoulder] Onset: 9 Resolved: 3 08-10-2023 Chronic Other non-traumatic joint disorders (16 sources) Pain in right shoulder; Translations: [Pain in joint, shoulder region] Onset: 9 Resolved: 3 08-10-2023 Episodic Other nutritional; endocrine; and metabolic disorders (20 sources) Body mass index 40+ - severely obese; Translations: [Morbid (severe) obesity due to excess calories] Onset: 7 Resolved: 8 01-29-2018 Chronic Other nutritional; endocrine; and metabolic disorders (11 sources) Severe obesity; Translations: [Morbid (severe) obesity due to excess calories] Onset: 8 Resolved: 0 08-10-2020 Chronic Other nutritional; endocrine; and metabolic disorders (1 source) Personal history of other endocrine, nutritional and metabolic disease; Translations: [Personal history of other endocrine, nutritional and metabolic disease] Onset: 4 Episodic Other screening for suspected conditions (not mental disorders or infectious disease) (19 sources) Prolonged QT interval; Translations: [Abnormal electrocardiogram [ECG] [EKG]] Onset: 9 Resolved: 3 08-10-2023 Episodic Residual codes; unclassified (3 sources) Other amnesia; Translations: [OTHER AMNESIA] Onset: 8 Episodic Residual codes; unclassified (16 sources) H/O: endocrine disorder; Translations: [Personal history of other specified conditions] Onset: 9 03-03-2019 Episodic Residual codes; unclassified (18 sources) History of sleeve gastrectomy; Translations: [Acquired absence of stomach [part of]] Onset: 1 08-30-2021 Episodic Residual codes; unclassified (14 sources) Edema; Translations: [Edema, unspecified] Onset: 3 Resolved: 3 08-10-2023 Episodic Residual codes; unclassified (3 sources) Insomnia; Translations: [Insomnia, unspecified] Onset: 2 09-30-2023 Episodic Residual codes; unclassified (2 sources) Acquired absence of stomach [part of]; Translations: [Acquired absence of stomach (part of)] Onset: 1 Episodic Retinal detachments; defects; vascular occlusion; and retinopathy (16 sources) Bilateral drusen of maculae; Translations: [Drusen (degenerative) of macula, bilateral] Onset: 6 Resolved: 3 08-10-2023 Chronic Spondylosis; intervertebral disc disorders; other back problems (20 sources) Cervical spondylosis; Translations: [Spondylosis without myelopathy or radiculopathy, cervical region] Onset: 4 Resolved: 3 08-10-2023 Chronic Superficial injury; contusion (3 sources) Contusion of left thigh; Translations: [Contusion of left thigh, initial encounter] Onset: 3 09-30-2023 Episodic Systemic lupus erythematosus and connective tissue disorders (16 sources) Temporal arteritis; Translations: [Other giant cell arteritis] Onset: 8 Resolved: 3 08-10-2023 Chronic Unclassified (11 sources) Onset: 7 09-13-2017 Urinary tract infections (13 sources) Urinary tract infection, site not specified; Translations: [Urinary tract infectious disease] Onset: 2 Resolved: 3 Episodic Viral infection (14 sources) Infectious mononucleosis; Translations: [Infectious mononucleosis, unspecified without complication] Onset: 3 Resolved: 4 08-10-2023 Episodic Results Test Name Value Interpretation Reference Range Facility XR FEMUR LT 2+ VIEWSon 07-21 XR FEMUR LT 2+ VIEWS XR FEMUR LT 2+ VIEWS Indication: Follow-up fracture status post ORIF. TECHNIQUE: Frontal and lateral views of left femur are prior exam dated 06/03/2024. FINDINGS: Hardware appears intact. Probable hematoma within soft tissues lateral to proximal femur shows interval decrease in size measuring 11 cm today. Exuberant callus formation about distal femoral fracture with unchanged alignment. IMPRESSION: 1. Satisfactory appearing healing comminuted minimally displaced distal femoral fracture. No evidence for hardware complication. Finalized by Pooja Garrido MD on 07/21/2024 8:31 AM Normal [facility] BASIC METABOLIC PANLon 06-10 Anion gap [Moles/Vol] 8 mmol/L Normal 5-15 [facility] Comment on above: Performed By: #### 4 8664-7, PINR, 14121-8, 1798-8, 3040-3, 5643-2 #### [facility] ([id number]) [address], [address] [place] [address] Calcium [Mass/Vol] 8.7 mg/dL Normal 8.5-10.5 [facility] Comment on above: Performed By: #### 4 8664-7, PINR, 46641-5, 1798-8, 3040-3, 5643-2 #### [facility] ([id number]) [address], [address] [place] [address] Chloride [Moles/Vol] 106 mmol/L Normal 98-109 [facility] Comment on above: Performed By: #### 4 8664-7, PINR, 01182-3, 1798-8, 3040-3, 5643-2 #### [facility] ([id number]) [address], [address] [place] [address] CO2 [Moles/Vol] 27 mmol/L Normal 22-32 [facility] Comment on above: Performed By: #### 4 8664-7, PINR, 07079-0, 1798-8, 3040-3, 5643-2 #### [facility] ([id number]) [address], [address] [place] [address] Creatinine [Mass/Vol] 1.58 mg/dL High 0.40-1.00 [facility] Comment on above: Result Comment: METH OD TRACEABLE TO IDMS STANDARD Performed By: #### 4 8664-7, PINR, 19210-6, 1798-8, 3040-3, 5643-2 #### [facility] ([id number]) [address], [address] [place] [address] GFR/1.73 sq M.predicted among non-blacks MDRD (S/P/Bld) [Vol rate/Area] 35 mL/min/{1.73_m2} Low >59 [facility] Comment on above: Result Comment: Reported eGFR is based on the CKD-EPI 2020 equation that does not use a race coefficient. Performed By: #### 4 8664-7, PINR, 13989-3, 1798-8, 3040-3, 5643-2 #### [facility] ([id number]) [address], [address] [place] [address] Glucose [Mass/Vol] 111 mg/dL High 65-99 [facility] Comment on above: Performed By: #### 4 8664-7, PINR, 40117-5, 1798-8, 3040-3, 5643-2 #### [facility] ([id number]) [address], [address] [place] [address] Potassium [Moles/Vol] 3.7 mmol/L Normal 3.5-5.0 [facility] Comment on above: Performed By: #### 4 8664-7, PINR, 17121-8, 1798-8, 3040-3, 5643-2 #### [facility] ([id number]) [address], [address] [place] [address] Sodium [Moles/Vol] 141 mmol/L Normal 134-146 [facility] Comment on above: Performed By: #### 4 8664-7, PINR, 26714-6, 1798-8, 3040-3, 5643-2 #### [facility] ([id number]) [address], [address] [place] [address] Urea nitrogen [Mass/Vol] 34 mg/dL High 5-27 [facility] Comment on above: Performed By: #### 4 8664-7, PINR, 42310-4, 1798-8, 3040-3, 5643-2 #### [facility] ([id number]) [address], [address] [place] [address] COMPLETE BLOOD COUNTon 06-10 Erythrocyte distribution width (RBC) [Ratio] 14.6 % Normal 11.5-15.0 [facility] Comment on above: Performed By: #### 4 8664-7, PINR, 82607-2, 1798-8, 3040-3, 5643-2 #### [facility] ([id number]) [address], [address] [place] [address] Hematocrit (Bld) [Volume fraction] 25.1 % Low 35-47 [facility] Comment on above: Performed By: #### 4 8664-7, PINR, 31489-7, 1798-8, 3040-3, 5643-2 #### [facility] ([id number]) [address], [address] [place] [address] Hemoglobin (Bld) [Mass/Vol] 8.2 g/dL Low 11.7-15.5 [facility] Comment on above: Performed By: #### 4 8664-7, PINR, 86605-3, 1798-8, 3040-3, 5643-2 #### [facility] ([id number]) [address], [facility] [address] [place] [address] MCH (RBC) [Entitic mass] 31.6 pg Normal 27-34 [facility] Comment on above: Performed By: #### 4 8664-7, PINR, 65094-7, 1798-8, 3040-3, 5643-2 #### [facility] ([id number]) [address], [address] [place] [address] MCHC (RBC) [Mass/Vol] 32.6 g/dL Normal 32-36 [facility] Comment on above: Performed By: #### 4 8664-7, PINR, 68557-5, 1798-8, 3040-3, 5643-2 #### [facility] ([id number]) [address], [address] [place] [address] MCV (RBC) [Entitic vol] 97 fL Normal 80-100 [facility] Comment on above: Performed By: #### 4 8664-7, PINR, 44092-1, 1798-8, 3040-3, 5643-2 #### [facility] ([id number]) [address], [address] [place] [address] Platelet mean volume (Bld) [Entitic vol] 7.1 fL Normal 7-12 [facility] Comment on above: Performed By: #### 4 8664-7, PINR, 76450-2, 1798-8, 3040-3, 5643-2 #### [facility] ([id number]) [address], [address] [place] [address] Platelets (Bld) [#/Vol] 227 10*3/uL Normal 150-450 [facility] Comment on above: Performed By: #### 4 8664-7, PINR, 99578-5, 1798-8, 3040-3, 5643-2 #### [facility] ([id number]) [address], [address] [place] [address] RBC COUNT 2.60 X10E12/L Low 3.80-5.20 [facility] Comment on above: Performed By: #### 4 8664-7, PINR, 21967-3, 1798-8, 3040-3, 5643-2 #### [facility] ([id number]) [address], [address] [place] [address] WBC (Bld) [#/Vol] 7.9 10*3/uL Normal 4.0-11.0 [facility] Comment on above: Performed By: #### 4 8664-7, PINR, 28704-5, 1798-8, 3040-3, 5643-2 #### [facility] ([id number]) [address], [address] [place] [address] PROTIME AND INRon 06-10-2024 INR Coag (PPP) [Relative time] 2.6 {INR} High 0.8-1.1 [facility] Comment on above: Performed By: #### 4 8664-7, PINR, 41369-0, 1798-8, 3040-3, 5643-2 #### [facility] ([id number]) [address], [address] [place] [address] PT Coag (PPP) [Time] 29.1 s High 9.8-13.2 [facility] Comment on above: Performed By: #### 4 8664-7, PINR, 27105-5, 1798-8, 3040-3, 5643-2 #### [facility] ([id number]) [address], [address] [place] [address] BASIC METABOLIC PANLon 06-09 Anion gap [Moles/Vol] 8 mmol/L Normal 5-15 [facility] Comment on above: Performed By: #### 4 8664-7, PINR, 72649-5, 1798-8, 3040-3, 5643-2 #### [facility] ([id number]) [address], [address] [place] [address] Calcium [Mass/Vol] 8.7 mg/dL Normal 8.5-10.5 [facility] Comment on above: Performed By: #### 4 8664-7, PINR, 15457-2, 1798-8, 3040-3, 5643-2 #### [facility] ([id number]) [address], [address] [place] [address] Chloride [Moles/Vol] 106 mmol/L Normal 98-109 [facility] Comment on above: Performed By: #### 4 8664-7, PINR, 12478-2, 1798-8, 3040-3, 5643-2 #### [facility] ([id number]) [address], [address] [place] [address] CO2 [Moles/Vol] 27 mmol/L Normal 22-32 [facility] Comment on above: Performed By: #### 4 8664-7, PINR, 27699-5, 1798-8, 3040-3, 5643-2 #### [facility] ([id number]) [address], [address] [place] [address] Creatinine [Mass/Vol] 1.40 mg/dL High 0.40-1.00 [facility] Comment on above: Result Comment: METH OD TRACEABLE TO IDMS STANDARD Performed By: #### 4 8664-7, PINR, 91889-1, 1798-8, 3040-3, 5643-2 #### [facility] ([id number]) [address], [address] [place] [address] GFR/1.73 sq M.predicted among non-blacks MDRD (S/P/Bld) [Vol rate/Area] 41 mL/min/{1.73_m2} Low >59 [facility] Comment on above: Result Comment: Reported eGFR is based on the CKD-EPI 2020 equation that does not use a race coefficient. Performed By: #### 4 8664-7, PINR, 74300-8, 1798-8, 3040-3, 5643-2 #### [facility] ([id number]) [address], [address] [place] [address] Glucose [Mass/Vol] 89 mg/dL Normal 65-99 [facility] Comment on above: Performed By: #### 4 8664-7, PINR, 16591-2, 1798-8, 3040-3, 5643-2 #### [facility] ([id number]) [address], [address] [place] [address] Potassium [Moles/Vol] 4.3 mmol/L Normal 3.5-5.0 [facility] Comment on above: Performed By: #### 4 8664-7, PINR, 86397-7, 1798-8, 3040-3, 5643-2 #### [facility] ([id number]) [address], [address] [place] [address] Sodium [Moles/Vol] 141 mmol/L Normal 134-146 [facility] Comment on above: Performed By: #### 4 8664-7, PINR, 24516-0, 1798-8, 3040-3, 5643-2 #### [facility] ([id number]) [address], [address] [place] [address] Urea nitrogen [Mass/Vol] 31 mg/dL High 5-27 [facility] Comment on above: Performed By: #### 4 8664-7, PINR, 79230-2, 1798-8, 3040-3, 5643-2 #### [facility] ([id number]) [address], [facility] [address] [place] [address] COMPLETE BLOOD COUNTon 06-09 Erythrocyte distribution width (RBC) [Ratio] 14.1 % Normal 11.5-15.0 [facility] Comment on above: Performed By: #### 4 8664-7, PINR, 82115-3, 1798-8, 3040-3, 5643-2 #### [facility] ([id number]) [address], [facility] [address] [place] [address] Hematocrit (Bld) [Volume fraction] 23.7 % Low 35-47 [facility] Comment on above: Performed By: #### 4 8664-7, PINR, 26758-0, 1798-8, 3040-3, 5643-2 #### [facility] ([id number]) [address], [facility] [address] [place] [address] Hemoglobin (Bld) [Mass/Vol] 7.7 g/dL Low 11.7-15.5 [facility] Comment on above: Performed By: #### 4 8664-7, PINR, 01724-0, 1798-8, 3040-3, 5643-2 #### [facility] ([id number]) [address] [address] [place] [address] MCH (RBC) [Entitic mass] 31.3 pg Normal 27-34 [facility] Comment on above: Performed By: #### 4 8664-7, PINR, 91115-3, 1798-8, 3040-3, 5643-2 #### [facility] ([id number]) [address], [facility] [address] [place] [address] MCHC (RBC) [Mass/Vol] 32.6 g/dL Normal 32-36 [facility] Comment on above: Performed By: #### 4 8664-7, PINR, 97796-7, 1798-8, 3040-3, 5643-2 #### [facility] ([id number]) [address], [facility] [address] [place] [address] MCV (RBC) [Entitic vol] 96 fL Normal 80-100 [facility] Comment on above: Performed By: #### 4 8664-7, PINR, 87697-2, 1798-8, 3040-3, 5643-2 #### [facility] ([id number]) [address], [address] [address] Platelet mean volume (Bld) [Entitic vol] 7.5 fL Normal 7-12 [facility] Comment on above: Performed By: #### 4 8664-7, PINR, 37816-1, 1798-8, 3040-3, 5643-2 #### [facility] ([id number]) [address] [address] Platelets (Bld) [#/Vol] 211 10*3/uL Normal 150-450 [facility] Comment on above: Performed By: #### 4 8664-7, PINR, 73042-6, 1798-8, 3040-3, 5643-2 #### [facility] ([id number]) [address] [address] [place] [address] RBC COUNT 2.46 X10E12/L Low 3.80-5.20 [facility] Comment on above: Performed By: #### 4 8664-7, PINR, 85307-3, 1798-8, 3040-3, 5643-2 #### [facility] ([id number]) [address], [address] [place] [address] WBC (Bld) [#/Vol] 7.9 10*3/uL Normal 4.0-11.0 [facility] Comment on above: Performed By: #### 4 8664-7, PINR, 90585-5, 1798-8, 3040-3, 5643-2 #### [facility] ([id number]) [address], [address] [place] [address] PROTIME AND INRon 06-09-2024 INR Coag (PPP) [Relative time] 2.5 {INR} High 0.8-1.1 [facility] Comment on above: Performed By: #### 4 8664-7, PINR, 33490-6, 1798-8, 3040-3, 5643-2 #### [facility] ([id number]) [address], [address] [place] [address] PT Coag (PPP) [Time] 28.5 s High 9.8-13.2 [facility] Comment on above: Performed By: #### 4 8664-7, PINR, 40584-0, 1798-8, 3040-3, 5643-2 #### [facility] ([id number]) [address], [address] [place] [address] BASIC METABOLIC PANLon 06-08 Anion gap [Moles/Vol] 8 mmol/L Normal 5-15 [facility] Comment on above: Performed By: #### 4 8664-7, PINR, 84542-0, 1798-8, 3040-3, 5643-2 #### [facility] ([id number]) [address], [address] [place] [address] Calcium [Mass/Vol] 8.3 mg/dL Low 8.5-10.5 [facility] Comment on above: Performed By: #### 4 8664-7, PINR, 32487-1, 1798-8, 3040-3, 5643-2 #### [facility] ([id number]) [address] [address] Chloride [Moles/Vol] 107 mmol/L Normal 98-109 [facility] Comment on above: Performed By: #### 4 8664-7, PINR, 24330-4, 1798-8, 3040-3, 5643-2 #### [facility] ([id number]) [address] [address] CO2 [Moles/Vol] 25 mmol/L Normal 22-32 [facility] Comment on above: Performed By: #### 4 8664-7, PINR, 50039-5, 1798-8, 3040-3, 5643-2 #### [facility] ([id number]) [address] [address] Creatinine [Mass/Vol] 1.35 mg/dL High 0.40-1.00 [facility] Comment on above: Result Comment: METH OD TRACEABLE TO IDMS STANDARD Performed By: #### 4 8664-7, PINR, 08606-9, 1798-8, 3040-3, 5643-2 #### [facility] ([id number]) [address] [address] GFR/1.73 sq M.predicted among non-blacks MDRD (S/P/Bld) [Vol rate/Area] 43 mL/min/{1.73_m2} Low >59 [facility] Comment on above: Result Comment: Reported eGFR is based on the CKD-EPI 2020 equation that does not use a race coefficient. Performed By: #### 4 8664-7, PINR, 03917-8, 1798-8, 3040-3, 5643-2 #### [facility] ([id number]) [address], [address] [place] [address] Glucose [Mass/Vol] 92 mg/dL Normal 65-99 [facility] Comment on above: Performed By: #### 4 8664-7, PINR, 72660-7, 1798-8, 3040-3, 5643-2 #### [facility] ([id number]) [address], [address] [place] [address] Potassium [Moles/Vol] 3.7 mmol/L Normal 3.5-5.0 [facility] Comment on above: Performed By: #### 4 8664-7, PINR, 85915-9, 1798-8, 3040-3, 5643-2 #### [facility] ([id number]) [address], [address] [place] [address] Sodium [Moles/Vol] 140 mmol/L Normal 134-146 [facility] Comment on above: Performed By: #### 4 8664-7, PINR, 67175-5, 1798-8, 3040-3, 5643-2 #### [facility] ([id number]) [address], [address] [place] [address] Urea nitrogen [Mass/Vol] 34 mg/dL High 5-27 [facility] Comment on above: Performed By: #### 4 8664-7, PINR, 90040-1, 1798-8, 3040-3, 5643-2 #### [facility] ([id number]) [address], [address] [place] [address] COMPLETE BLOOD COUNTon 06-08 Erythrocyte distribution width (RBC) [Ratio] 13.9 % Normal 11.5-15.0 [facility] Comment on above: Performed By: #### 4 8664-7, PINR, 90643-4, 1798-8, 3040-3, 5643-2 #### [facility] ([id number]) [address], [address] [place] [address] Hematocrit (Bld) [Volume fraction] 22.5 % Low 35-47 [facility] Comment on above: Performed By: #### 4 8664-7, PINR, 79454-5, 1798-8, 3040-3, 5643-2 #### [facility] ([id number]) [address], [facility] [address] [place] [address] Hemoglobin (Bld) [Mass/Vol] 7.3 g/dL Low 11.7-15.5 [facility] Comment on above: Performed By: #### 4 8664-7, PINR, 01994-3, 1798-8, 3040-3, 5643-2 #### [facility] ([id number]) [address] [address] MCH (RBC) [Entitic mass] 31.0 pg Normal 27-34 [facility] Comment on above: Performed By: #### 4 8664-7, PINR, 46333-6, 1797-8, 3040-3, 5643-2 #### [facility] ([id number]) [address], [address] [address] MCHC (RBC) [Mass/Vol] 32.5 g/dL Normal 32-36 [facility] Comment on above: Performed By: #### 4 8664-7, PINR, 86397-3, 1797-8, 3040-3, 5643-2 #### [facility] ([id number]) [address] [address] MCV (RBC) [Entitic vol] 95 fL Normal 80-100 [facility] Comment on above: Performed By: #### 4 8664-7, PINR, 11268-3, 1798-8, 3040-3, 5643-2 #### [facility] ([id number]) [address] [address] [place] [address] Platelet mean volume (Bld) [Entitic vol] 7.7 fL Normal 7-12 [facility] Comment on above: Performed By: #### 4 8664-7, PINR, 22062-3, 1798-8, 3040-3, 5643-2 #### [facility] ([id number]) [address], [address] [place] [address] Platelets (Bld) [#/Vol] 187 10*3/uL Normal 150-450 [facility] Comment on above: Performed By: #### 4 8664-7, PINR, 32412-7, 1798-8, 3040-3, 5643-2 #### [facility] ([id number]) [address], [address] [place] [address] RBC COUNT 2.36 X10E12/L Low 3.80-5.20 [facility] Comment on above: Performed By: #### 4 8664-7, PINR, 94159-5, 1798-8, 3040-3, 5643-2 #### [facility] ([id number]) [address], [address] [place] [address] WBC (Bld) [#/Vol] 7.2 10*3/uL Normal 4.0-11.0 [facility] Comment on above: Performed By: #### 4 8664-7, PINR, 91686-2, 1798-8, 3040-3, 5643-2 #### [facility] ([id number]) [address], [address] [place] [address] PROTIME AND INRon 06-08-2024 INR Coag (PPP) [Relative time] 2.2 {INR} High 0.8-1.1 [facility] Comment on above: Performed By: #### 4 8664-7, PINR, 84151-3, 1798-8, 3040-3, 5643-2 #### [facility] ([id number]) [address], [address] [place] [address] PT Coag (PPP) [Time] 24.4 s High 9.8-13.2 [facility] Comment on above: Performed By: #### 4 8664-7, PINR, 13157-0, 1798-8, 3040-3, 5643-2 #### [facility] ([id number]) [address], [address] [place] [address] BASIC METABOLIC PANLon 06-07 Anion gap [Moles/Vol] 5 mmol/L Normal 5-15 [facility] Comment on above: Performed By: #### 4 8664-7, PINR, 03472-4, 1798-8, 3040-3, 5643-2 #### [facility] ([id number]) [address], [address] [place] [address] Calcium [Mass/Vol] 8.7 mg/dL Normal 8.5-10.5 [facility] Comment on above: Performed By: #### 4 8664-7, PINR, 71141-1, 1798-8, 3040-3, 5643-2 #### [facility] ([id number]) [address], [address] [place] [address] Chloride [Moles/Vol] 108 mmol/L Normal 98-109 [facility] Comment on above: Performed By: #### 4 8664-7, PINR, 52004-0, 1798-8, 3040-3, 5643-2 #### [facility] ([id number]) [address], [address] [place] [address] CO2 [Moles/Vol] 27 mmol/L Normal 22-32 [facility] Comment on above: Performed By: #### 4 8664-7, PINR, 61805-0, 1798-8, 3040-3, 5643-2 #### [facility] ([id number]) [address], [address] [place] [address] Creatinine [Mass/Vol] 1.61 mg/dL High 0.40-1.00 [facility] Comment on above: Result Comment: METH OD TRACEABLE TO IDMS STANDARD Performed By: #### 4 8664-7, PINR, 69284-1, 1798-8, 3040-3, 5643-2 #### [facility] ([id number]) [address], [address] [place] [address] GFR/1.73 sq M.predicted among non-blacks MDRD (S/P/Bld) [Vol rate/Area] 34 mL/min/{1.73_m2} Low >59 [facility] Comment on above: Result Comment: Reported eGFR is based on the CKD-EPI 2020 equation that does not use a race coefficient. Performed By: #### 4 8664-7, PINR, 15603-6, 1798-8, 3040-3, 5643-2 #### [facility] ([id number]) [address], [address] [place] [address] Glucose [Mass/Vol] 101 mg/dL High 65-99 [facility] Comment on above: Performed By: #### 4 8664-7, PINR, 75692-0, 1798-8, 3040-3, 5643-2 #### [facility] ([id number]) [address], [address] [place] [address] Potassium [Moles/Vol] 3.8 mmol/L Normal 3.5-5.0 [facility] Comment on above: Performed By: #### 4 8664-7, PINR, 77736-2, 1798-8, 3040-3, 5643-2 #### [facility] ([id number]) [address], [address] [place] [address] Sodium [Moles/Vol] 140 mmol/L Normal 134-146 [facility] Comment on above: Performed By: #### 4 8664-7, PINR, 13724-8, 1798-8, 3040-3, 5643-2 #### [facility] ([id number]) [address], [address] [place] [address] Urea nitrogen [Mass/Vol] 37 mg/dL High 5-27 [facility] Comment on above: Performed By: #### 4 8664-7, PINR, 01468-5, 1798-8, 3040-3, 5643-2 #### [facility] ([id number]) [address], [address] [place] [address] COMPLETE BLOOD COUNTon 06-07 Erythrocyte distribution width (RBC) [Ratio] 13.8 % Normal 11.5-15.0 [facility] Comment on above: Performed By: #### 4 8664-7, PINR, 98962-5, 1798-8, 3040-3, 5643-2 #### [facility] ([id number]) [address], [address] [place] [address] Hematocrit (Bld) [Volume fraction] 23.8 % Low 35-47 [facility] Comment on above: Performed By: #### 4 8664-7, PINR, 32646-4, 1798-8, 3040-3, 5643-2 #### [facility] ([id number]) [address], [address] [place] [address] Hemoglobin (Bld) [Mass/Vol] 7.7 g/dL Low 11.7-15.5 [facility] Comment on above: Performed By: #### 4 8664-7, PINR, 39234-3, 1798-8, 3040-3, 5643-2 #### [facility] ([id number]) [address], [address] [place] [address] MCH (RBC) [Entitic mass] 31.0 pg Normal 27-34 [facility] Comment on above: Performed By: #### 4 8664-7, PINR, 87645-5, 1798-8, 3040-3, 5643-2 #### [facility] ([id number]) [address], [address] [place] [address] MCHC (RBC) [Mass/Vol] 32.3 g/dL Normal 32-36 [facility] Comment on above: Performed By: #### 4 8664-7, PINR, 55197-6, 1798-8, 3040-3, 5643-2 #### [facility] ([id number]) [address], [facility] [address] [place] [address] MCV (RBC) [Entitic vol] 96 fL Normal 80-100 [facility] Comment on above: Performed By: #### 4 8664-7, PINR, 97509-8, 1798-8, 3040-3, 5643-2 #### [facility] ([id number]) [address], [address] [place] [address] Platelet mean volume (Bld) [Entitic vol] 7.7 fL Normal 7-12 [facility] Comment on above: Performed By: #### 4 8664-7, PINR, 55913-4, 1798-8, 3040-3, 5643-2 #### [facility] ([id number]) [address], [address] [place] [address] Platelets (Bld) [#/Vol] 186 10*3/uL Normal 150-450 [facility] Comment on above: Performed By: #### 4 8664-7, PINR, 38382-8, 1798-8, 3040-3, 5643-2 #### [facility] ([id number]) [address], [address] [place] [address] RBC COUNT 2.48 X10E12/L Low 3.80-5.20 [facility] Comment on above: Performed By: #### 4 8664-7, PINR, 14503-8, 1798-8, 3040-3, 5643-2 #### [facility] ([id number]) [address], [address] [place] [address] WBC (Bld) [#/Vol] 7.4 10*3/uL Normal 4.0-11.0 [facility] Comment on above: Performed By: #### 4 8664-7, PINR, 05071-8, 1798-8, 3040-3, 5643-2 #### [facility] ([id number]) [address], [address] [place] [address] PROTIME AND INRon 06-07-2024 INR Coag (PPP) [Relative time] 1.8 {INR} High 0.8-1.1 [facility] Comment on above: Performed By: #### 4 8664-7, PINR, 02254-9, 1798-8, 3040-3, 5643-2 #### [facility] ([id number]) [address], [address] [place] [address] PT Coag (PPP) [Time] 21.0 s High 9.8-13.2 [facility] Comment on above: Performed By: #### 4 8664-7, PINR, 49037-5, 1798-8, 3040-3, 5643-2 #### [facility] ([id number]) [address], [address] [place] [address] BASIC METABOLIC PANLon 06-06 Anion gap [Moles/Vol] 7 mmol/L Normal 5-15 [facility] Comment on above: Performed By: #### 4 8664-7, PINR, 52735-2, 1798-8, 3040-3, 5643-2 #### [facility] ([id number]) [address], [address] [place] [address] Calcium [Mass/Vol] 8.5 mg/dL Normal 8.5-10.5 [facility] Comment on above: Performed By: #### 4 8664-7, PINR, 92352-0, 1798-8, 3040-3, 5643-2 #### [facility] ([id number]) [address], [address] [place] [address] Chloride [Moles/Vol] 110 mmol/L High 98-109 [facility] Comment on above: Performed By: #### 4 8664-7, PINR, 35187-2, 1798-8, 3040-3, 5643-2 #### [facility] ([id number]) [address], [address] [place] [address] CO2 [Moles/Vol] 24 mmol/L Normal 22-32 [facility] Comment on above: Performed By: #### 4 8664-7, PINR, 23554-9, 1798-8, 3040-3, 5643-2 #### [facility] ([id number]) [address], [address] [place] [address] Creatinine [Mass/Vol] 1.96 mg/dL High 0.40-1.00 [facility] Comment on above: Result Comment: METH OD TRACEABLE TO IDMS STANDARD Performed By: #### 4 8664-7, PINR, 09520-6, 1798-8, 3040-3, 5643-2 #### [facility] ([id number]) [address], [address] [place] [address] GFR/1.73 sq M.predicted among non-blacks MDRD (S/P/Bld) [Vol rate/Area] 27 mL/min/{1.73_m2} Low >59 [facility] Comment on above: Result Comment: Reported eGFR is based on the CKD-EPI 2020 equation that does not use a race coefficient. Performed By: #### 4 8664-7, PINR, 19388-6, 1798-8, 3040-3, 5643-2 #### [facility] ([id number]) [address], [address] [place] [address] Glucose [Mass/Vol] 111 mg/dL High 65-99 [facility] Comment on above: Performed By: #### 4 8664-7, PINR, 45339-5, 1798-8, 3040-3, 5643-2 #### [facility] ([id number]) [address], [address] [place] [address] Potassium [Moles/Vol] 3.9 mmol/L Normal 3.5-5.0 [facility] Comment on above: Performed By: #### 4 8664-7, PINR, 07304-1, 1798-8, 3040-3, 5643-2 #### [facility] ([id number]) [address], [address] [place] [address] Sodium [Moles/Vol] 141 mmol/L Normal 134-146 [facility] Comment on above: Performed By: #### 4 8664-7, PINR, 75724-9, 1798-8, 3040-3, 5643-2 #### [facility] ([id number]) [address], [address] [place] [address] Urea nitrogen [Mass/Vol] 40 mg/dL High 5-27 [facility] Comment on above: Performed By: #### 4 8664-7, PINR, 69901-9, 1798-8, 3040-3, 5643-2 #### [facility] ([id number]) [address], [address] [place] [address] COMPLETE BLOOD COUNTon 06-06 Erythrocyte distribution width (RBC) [Ratio] 13.7 % Normal 11.5-15.0 [facility] Comment on above: Performed By: #### 4 8664-7, PINR, 05858-9, 1798-8, 3040-3, 5643-2 #### [facility] ([id number]) [address], [facility] [address] [place] [address] Hematocrit (Bld) [Volume fraction] 21.7 % Low 35-47 [facility] Comment on above: Performed By: #### 4 8664-7, PINR, 96989-4, 1798-8, 3040-3, 5643-2 #### [facility] ([id number]) [address], [facility] [address] [place] [address] Hemoglobin (Bld) [Mass/Vol] 7.1 g/dL Low 11.7-15.5 [facility] Comment on above: Performed By: #### 4 8664-7, PINR, 08362-4, 1798-8, 3040-3, 5643-2 #### [facility] ([id number]) [address], [facility] [address] [place] [address] MCH (RBC) [Entitic mass] 31.3 pg Normal 27-34 [facility] Comment on above: Performed By: #### 4 8664-7, PINR, 47990-9, 1798-8, 3040-3, 5643-2 #### [facility] ([id number]) [address], [facility] [address] [place] [address] MCHC (RBC) [Mass/Vol] 32.6 g/dL Normal 32-36 [facility] Comment on above: Performed By: #### 4 8664-7, PINR, 16743-4, 1798-8, 3040-3, 5643-2 #### [facility] ([id number]) [address] [address] MCV (RBC) [Entitic vol] 96 fL Normal 80-100 [facility] Comment on above: Performed By: #### 4 8664-7, PINR, 43470-6, 1798-8, 3040-3, 5643-2 #### [facility] ([id number]) [address], [address] [place] [address] Platelet mean volume (Bld) [Entitic vol] 8.1 fL Normal 7-12 [facility] Comment on above: Performed By: #### 4 8664-7, PINR, 80844-4, 1798-8, 3040-3, 5643-2 #### [facility] ([id number]) [address], [address] [place] [address] Platelets (Bld) [#/Vol] 151 10*3/uL Normal 150-450 [facility] Comment on above: Performed By: #### 4 8664-7, PINR, 93056-3, 8-8, 3040-3, 5643-2 #### [facility] ([id number]) [address], [address] [place] [address] RBC COUNT 2.26 X10E12/L Low 3.80-5.20 [facility] Comment on above: Performed By: #### 4 8664-7, PINR, 43172-8, 1798-8, 3040-3, 5643-2 #### [facility] ([id number]) [address], [address] [place] [address] WBC (Bld) [#/Vol] 7.5 10*3/uL Normal 4.0-11.0 [facility] Comment on above: Performed By: #### 4 8664-7, PINR, 90198-5, 1798-8, 3040-3, 5643-2 #### [facility] ([id number]) [address], [address] [place] [address] PROTIME AND INRon 06-06-2024 INR Coag (PPP) [Relative time] 1.6 {INR} High 0.8-1.1 [facility] Comment on above: Performed By: #### 4 8664-7, PINR, 67776-7, 1798-8, 3040-3, 5643-2 #### [facility] ([id number]) [address], [address] [place] [address] PT Coag (PPP) [Time] 17.8 s High 9.8-13.2 [facility] Comment on above: Performed By: #### 4 8664-7, PINR, 15080-5, 1798-8, 3040-3, 5643-2 #### [facility] ([id number]) [address], [address] [place] [address] BASIC METABOLIC PANLon 06-05 Anion gap [Moles/Vol] 8 mmol/L Normal 5-15 [facility] Comment on above: Performed By: #### 4 8664-7, PINR, 98574-2, 1798-8, 3040-3, 5643-2 #### [facility] ([id number]) [address], [address] [place] [address] Calcium [Mass/Vol] 8.4 mg/dL Low 8.5-10.5 [facility] Comment on above: Performed By: #### 4 8664-7, PINR, 73817-2, 1798-8, 3040-3, 5643-2 #### [facility] ([id number]) [address], [address] [place] [address] Chloride [Moles/Vol] 109 mmol/L Normal 98-109 [facility] Comment on above: Performed By: #### 4 8664-7, PINR, 96894-1, 1798-8, 3040-3, 5643-2 #### [facility] ([id number]) [address], [address] [place] [address] CO2 [Moles/Vol] 23 mmol/L Normal 22-32 [facility] Comment on above: Performed By: #### 4 8664-7, PINR, 59798-6, 1798-8, 3040-3, 5643-2 #### [facility] ([id number]) [address], [facility] [address] [place] [address] Creatinine [Mass/Vol] 2.06 mg/dL High 0.40-1.00 [facility] Comment on above: Result Comment: METH OD TRACEABLE TO IDMS STANDARD Performed By: #### 4 8664-7, PINR, 02208-8, 8-8, 3040-3, 5643-2 #### [facility] ([id number]) [address], [facility] [address] [place] [address] GFR/1.73 sq M.predicted among non-blacks MDRD (S/P/Bld) [Vol rate/Area] 26 mL/min/{1.73_m2} Low >59 [facility] Comment on above: Result Comment: Reported eGFR is based on the CKD-EPI 2020 equation that does not use a race coefficient. Performed By: #### 4 8664-7, PINR, 17227-7, 8-8, 3040-3, 5643-2 #### [facility] ([id number]) [address], [facility] [address] [place] [address] Glucose [Mass/Vol] 112 mg/dL High 65-99 [facility] Comment on above: Performed By: #### 4 8664-7, PINR, 63929-2, 8-8, 3040-3, 5643-2 #### [facility] ([id number]) [address], [address] [place] [address] Potassium [Moles/Vol] 4.1 mmol/L Normal 3.5-5.0 [facility] Comment on above: Performed By: #### 4 8664-7, PINR, 40416-0, 1798-8, 3040-3, 5643-2 #### [facility] ([id number]) [address], [address] [place] [address] Sodium [Moles/Vol] 140 mmol/L Normal 134-146 [facility] Comment on above: Performed By: #### 4 8664-7, PINR, 75894-2, 1798-8, 3040-3, 5643-2 #### [facility] ([id number]) [address], [address] [place] [address] Urea nitrogen [Mass/Vol] 45 mg/dL High 5-27 [facility] Comment on above: Performed By: #### 4 8664-7, PINR, 49563-0, 1798-8, 3040-3, 5643-2 #### [facility] ([id number]) [address], [facility] [address] [place] [address] CBC AND AUTO DIFFon 06-05-20 24 ABSOLUTE BASOPHIL 0.0 X10E9/L Normal 0.0-0.2 [facility] Comment on above: Performed By: #### 4 8664-7, PINR, 05776-2, 1798-8, 3040-3, 5643-2 #### [facility] ([id number]) [address], [address] [place] [address] ABSOLUTE NEUTROPHIL 6.8 X10E9/L High 1.5-6.6 [facility] Comment on above: Performed By: #### 4 8664-7, PINR, 34598-3, 1798-8, 3040-3, 5643-2 #### [facility] ([id number]) [address], [address] [place] [address] Basophils/100 WBC (Bld) 0.3 % Normal [facility] Comment on above: Performed By: #### 4 8664-7, PINR, 37383-0, 1798-8, 3040-3, 5643-2 #### [facility] ([id number]) [address], [address] [place] [address] Eosinophils (Bld) [#/Vol] 0.1 10*3/uL Normal 0.0-0.4 [facility] Comment on above: Performed By: #### 4 8664-7, PINR, 53749-0, 1798-8, 3040-3, 5643-2 #### [facility] ([id number]) [address], [address] [place] [address] Eosinophils/100 WBC (Bld) 0.6 % Normal [facility] Comment on above: Performed By: #### 4 8664-7, PINR, 26865-3, 1798-8, 3040-3, 5643-2 #### [facility] ([id number]) [address], [facility] [address] [place] [address] Erythrocyte distribution width (RBC) [Ratio] 13.2 % Normal 11.5-15.0 [facility] Comment on above: Performed By: #### 4 8664-7, PINR, 69079-8, 1798-8, 3040-3, 5643-2 #### [facility] ([id number]) [address], [facility] [address] [place] [address] Hematocrit (Bld) [Volume fraction] 23.5 % Low 35-47 [facility] Comment on above: Performed By: #### 4 8664-7, PINR, 05263-7, 1798-8, 3040-3, 5643-2 #### [facility] ([id number]) [address], [address] [place] [address] Hemoglobin (Bld) [Mass/Vol] 7.6 g/dL Low 11.7-15.5 [facility] Comment on above: Performed By: #### 4 8664-7, PINR, 06411-7, 1798-8, 3040-3, 5643-2 #### [facility] ([id number]) [address], [facility] [address] [place] [address] Lymphocytes (Bld) [#/Vol] 0.8 10*3/uL Low 1.0-3.5 [facility] Comment on above: Performed By: #### 4 8664-7, PINR, 71454-5, 1798-8, 3040-3, 5643-2 #### [facility] ([id number]) [address], [address] [place] [address] Lymphocytes/100 WBC (Bld) 9.5 % Normal [facility] Comment on above: Performed By: #### 4 8664-7, PINR, 38079-5, 8-8, 3040-3, 5643-2 #### [facility] ([id number]) [address], [facility] [address] [place] [address] MCH (RBC) [Entitic mass] 30.9 pg Normal 27-34 [facility] Comment on above: Performed By: #### 4 8664-7, PINR, 23995-7, 1797-8, 3040-3, 5643-2 #### [facility] ([id number]) [address], [address] [place] [address] MCHC (RBC) [Mass/Vol] 32.4 g/dL Normal 32-36 [facility] Comment on above: Performed By: #### 4 8664-7, PINR, 57490-9, 8-8, 3040-3, 5643-2 #### [facility] ([id number]) [address], [address] [place] [address] MCV (RBC) [Entitic vol] 96 fL Normal 80-100 [facility] Comment on above: Performed By: #### 4 8664-7, PINR, 98025-3, 1798-8, 3040-3, 5643-2 #### [facility] ([id number]) [address], [address] [place] [address] Monocytes (Bld) [#/Vol] 1.0 10*3/uL High 0-0.9 [facility] Comment on above: Performed By: #### 4 8664-7, PINR, 03994-9, 1798-8, 3040-3, 5643-2 #### [facility] ([id number]) [address], [address] [place] [address] Monocytes/100 WBC (Bld) 11.6 % Normal [facility] Comment on above: Performed By: #### 4 8664-7, PINR, 79275-2, 1798-8, 3040-3, 5643-2 #### [facility] ([id number]) [address], [address] [place] [address] Neutrophils/100 WBC (Bld) 78.0 % Normal [facility] Comment on above: Performed By: #### 4 8664-7, PINR, 13720-8, 1798-8, 3040-3, 5643-2 #### [facility] ([id number]) [address], [address] [place] [address] Platelet mean volume (Bld) [Entitic vol] 7.7 fL Normal 7-12 [facility] Comment on above: Performed By: #### 4 8664-7, PINR, 83020-6, 1798-8, 3040-3, 5643-2 #### [facility] ([id number]) [address], [address] [place] [address] Platelets (Bld) [#/Vol] 135 10*3/uL Low 150-450 [facility] Comment on above: Performed By: #### 4 8664-7, PINR, 16947-5, 1798-8, 3040-3, 5643-2 #### [facility] ([id number]) [address], [address] [place] [address] RBC COUNT 2.45 X10E12/L Low 3.80-5.20 [facility] Comment on above: Performed By: #### 4 8664-7, PINR, 00117-7, 1798-8, 3040-3, 5643-2 #### [facility] ([id number]) [address], [address] [place] [address] WBC (Bld) [#/Vol] 8.8 10*3/uL Normal 4.0-11.0 [facility] Comment on above: Performed By: #### 4 8664-7, PINR, 08404-1, 1798-8, 3040-3, 5643-2 #### [facility] ([id number]) [address], [address] [place] [address] HGB AND HCTon 06-05-2024 Hematocrit (Bld) [Volume fraction] 23.3 % Low 35-47 [facility] Comment on above: Performed By: #### 4 8664-7, PINR, 47602-7, 1798-8, 3040-3, 5643-2 #### [facility] ([id number]) [address], [address] [place] [address] Hemoglobin (Bld) [Mass/Vol] 7.5 g/dL Low 11.7-15.5 [facility] Comment on above: Performed By: #### 4 8664-7, PINR, 34943-7, 1798-8, 3040-3, 5643-2 #### [facility] ([id number]) [address], [address] [place] [address] Hematocrit (Bld) [Volume fraction] 22.2 % Low 35-47 [facility] Comment on above: Performed By: #### 4 8664-7, PINR, 06148-5, 1798-8, 3040-3, 5643-2 #### [facility] ([id number]) [address], [address] [place] [address] Hemoglobin (Bld) [Mass/Vol] 7.3 g/dL Low 11.7-15.5 [facility] Comment on above: Performed By: #### 4 8664-7, PINR, 26392-5, 1798-8, 3040-3, 5643-2 #### [facility] ([id number]) [address], [address] [place] [address] Hematocrit (Bld) [Volume fraction] 21.8 % Low 35-47 [facility] Comment on above: Performed By: #### 4 8664-7, PINR, 31652-9, 1798-8, 3040-3, 5643-2 #### [facility] ([id number]) [address], [address] [place] [address] Hemoglobin (Bld) [Mass/Vol] 7.1 g/dL Low 11.7-15.5 [facility] Comment on above: Performed By: #### 4 8664-7, PINR, 37456-6, 1798-8, 3040-3, 5643-2 #### [facility] ([id number]) [address], [address] [place] [address] PROTIME AND INRon 06-05-2024 INR Coag (PPP) [Relative time] 1.4 {INR} High 0.8-1.1 [facility] Comment on above: Performed By: #### 4 8664-7, PINR, 72617-9, 1798-8, 3040-3, 5643-2 #### [facility] ([id number]) [address], [address] [place] [address] PT Coag (PPP) [Time] 16.6 s High 9.8-13.2 [facility] Comment on above: Performed By: #### 4 8664-7, PINR, 86297-4, 1798-8, 3040-3, 5643-2 #### [facility] ([id number]) [address], [address] [place] [address] BASIC METABOLIC PANLon 06-04 Anion gap [Moles/Vol] 8 mmol/L Normal 5-15 [facility] Comment on above: Performed By: #### 4 8664-7, PINR, 96950-2, 1798-8, 3040-3, 5643-2 #### [facility] ([id number]) [address], [address] [place] [address] Calcium [Mass/Vol] 8.1 mg/dL Low 8.5-10.5 [facility] Comment on above: Performed By: #### 4 8664-7, PINR, 63785-5, 1798-8, 3040-3, 5643-2 #### [facility] ([id number]) [address], [address] [place] [address] Chloride [Moles/Vol] 109 mmol/L Normal 98-109 [facility] Comment on above: Performed By: #### 4 8664-7, PINR, 30755-0, 1798-8, 3040-3, 5643-2 #### [facility] ([id number]) [address], [address] [place] [address] CO2 [Moles/Vol] 22 mmol/L Normal 22-32 [facility] Comment on above: Performed By: #### 4 8664-7, PINR, 75532-4, 1798-8, 3040-3, 5643-2 #### [facility] ([id number]) [address], [address] [place] [address] Creatinine [Mass/Vol] 2.04 mg/dL High 0.40-1.00 [facility] Comment on above: Result Comment: METH OD TRACEABLE TO IDMS STANDARD Performed By: #### 4 8664-7, PINR, 14417-7, 1798-8, 3040-3, 5643-2 #### [facility] ([id number]) [address], [facility] [address] [place] [address] GFR/1.73 sq M.predicted among non-blacks MDRD (S/P/Bld) [Vol rate/Area] 26 mL/min/{1.73_m2} Low >59 [facility] Comment on above: Result Comment: Reported eGFR is based on the CKD-EPI 2020 equation that does not use a race coefficient. Performed By: #### 4 8664-7, PINR, 69787-0, 1798-8, 3040-3, 5643-2 #### [facility] ([id number]) [address] [address] Glucose [Mass/Vol] 185 mg/dL High 65-99 [facility] Comment on above: Performed By: #### 4 8664-7, PINR, 72814-0, 1798-8, 3040-3, 5643-2 #### [facility] ([id number]) [address], [address] [address] Potassium [Moles/Vol] 4.2 mmol/L Normal 3.5-5.0 [facility] Comment on above: Performed By: #### 4 8664-7, PINR, 52963-4, 1798-8, 3040-3, 5643-2 #### [facility] ([id number]) [address] [address] Sodium [Moles/Vol] 139 mmol/L Normal 134-146 [facility] Comment on above: Performed By: #### 4 8664-7, PINR, 01607-2, 1798-8, 3040-3, 5643-2 #### [facility] ([id number]) [address] [address] Urea nitrogen [Mass/Vol] 41 mg/dL High 5-27 [facility] Comment on above: Performed By: #### 4 8664-7, PINR, 62330-7, 1798-8, 3040-3, 5643-2 #### [facility] ([id number]) [address], [address] [place] [address] CBC AND AUTO DIFFon 06-04-20 24 ABSOLUTE BASOPHIL 0.0 X10E9/L Normal 0.0-0.2 [facility] Comment on above: Performed By: #### 4 8664-7, PINR, 64301-9, 1798-8, 3040-3, 5643-2 #### [facility] ([id number]) [address], [address] [place] [address] ABSOLUTE NEUTROPHIL 9.2 X10E9/L High 1.5-6.6 [facility] Comment on above: Performed By: #### 4 8664-7, PINR, 99674-1, 1797-8, 3040-3, 5643-2 #### [facility] ([id number]) [address], [address] [place] [address] Basophils/100 WBC (Bld) 0.1 % Normal [facility] Comment on above: Performed By: #### 4 8664-7, PINR, 36533-8, 1797-8, 3040-3, 5643-2 #### [facility] ([id number]) [address], [address] [place] [address] Eosinophils (Bld) [#/Vol] 0.0 10*3/uL Normal 0.0-0.4 [facility] Comment on above: Performed By: #### 4 8664-7, PINR, 31023-0, 1798-8, 3040-3, 5643-2 #### [facility] ([id number]) [address], [address] [place] [address] Eosinophils/100 WBC (Bld) 0.0 % Normal [facility] Comment on above: Performed By: #### 4 8664-7, PINR, 64043-9, 179-8, 3040-3, 5643-2 #### [facility] ([id number]) [address], [address] [place] [address] Erythrocyte distribution width (RBC) [Ratio] 13.9 % Normal 11.5-15.0 [facility] Comment on above: Performed By: #### 4 8664-7, PINR, 18321-6, 1797-8, 3040-3, 5643-2 #### [facility] ([id number]) [address], [facility] [address] [place] [address] Hematocrit (Bld) [Volume fraction] 27.1 % Low 35-47 [facility] Comment on above: Performed By: #### 4 8664-7, PINR, 12962-8, 1797-8, 3040-3, 5643-2 #### [facility] ([id number]) [address], [address] [place] [address] Hemoglobin (Bld) [Mass/Vol] 9.0 g/dL Low 11.7-15.5 [facility] Comment on above: Performed By: #### 4 8664-7, PINR, 12308-3, 1797-8, 3040-3, 5643-2 #### [facility] ([id number]) [address], [address] [place] [address] Lymphocytes (Bld) [#/Vol] 0.2 10*3/uL Low 1.0-3.5 [facility] Comment on above: Performed By: #### 4 8664-7, PINR, 72110-5, 1797-8, 3040-3, 5643-2 #### [facility] ([id number]) [address], [address] [place] [address] Lymphocytes/100 WBC (Bld) 2.0 % Normal [facility] Comment on above: Performed By: #### 4 8664-7, PINR, 74577-4, 1798-8, 3040-3, 5643-2 #### [facility] ([id number]) [address], [address] [place] [address] MCH (RBC) [Entitic mass] 31.8 pg Normal 27-34 [facility] Comment on above: Performed By: #### 4 8664-7, PINR, 95170-5, 1798-8, 3040-3, 5643-2 #### [facility] ([id number]) [address], [facility] [address] [place] [address] MCHC (RBC) [Mass/Vol] 33.4 g/dL Normal 32-36 [facility] Comment on above: Performed By: #### 4 8664-7, PINR, 08344-7, 1798-8, 3040-3, 5643-2 #### [facility] ([id number]) [address], [address] [place] [address] MCV (RBC) [Entitic vol] 95 fL Normal 80-100 [facility] Comment on above: Performed By: #### 4 8664-7, PINR, 71014-1, 1798-8, 3040-3, 5643-2 #### [facility] ([id number]) [address] [address] [place] [address] Monocytes (Bld) [#/Vol] 0.4 10*3/uL Normal 0-0.9 [facility] Comment on above: Performed By: #### 4 8664-7, PINR, 34495-5, 1798-8, 3040-3, 5643-2 #### [facility] ([id number]) [address] [address] [place] [address] Monocytes/100 WBC (Bld) 4.4 % Normal [facility] Comment on above: Performed By: #### 4 8664-7, PINR, 20072-6, 1798-8, 3040-3, 5643-2 #### [facility] ([id number]) [address], [address] [place] [address] Neutrophils/100 WBC (Bld) 93.5 % Normal [facility] Comment on above: Performed By: #### 4 8664-7, PINR, 77007-6, 1798-8, 3040-3, 5643-2 #### [facility] ([id number]) [address], [address] [place] [address] Platelet mean volume (Bld) [Entitic vol] 7.6 fL Normal 7-12 [facility] Comment on above: Performed By: #### 4 8664-7, PINR, 92004-6, 1798-8, 3040-3, 5643-2 #### [facility] ([id number]) [address], [address] [place] [address] Platelets (Bld) [#/Vol] 145 10*3/uL Low 150-450 [facility] Comment on above: Performed By: #### 4 8664-7, PINR, 00704-6, 1798-8, 3040-3, 5643-2 #### [facility] ([id number]) [address], [address] [place] [address] RBC COUNT 2.85 X10E12/L Low 3.80-5.20 [facility] Comment on above: Performed By: #### 4 8664-7, PINR, 60732-2, 1798-8, 3040-3, 5643-2 #### [facility] ([id number]) [address], [address] [place] [address] WBC (Bld) [#/Vol] 9.9 10*3/uL Normal 4.0-11.0 [facility] Comment on above: Performed By: #### 4 8664-7, PINR, 65673-8, 1798-8, 3040-3, 5643-2 #### [facility] ([id number]) [address] [facility] [place] [address] PROTIME AND INRon 06-04-2024 INR Coag (PPP) [Relative time] 1.5 {INR} High 0.8-1.1 [facility] Comment on above: Performed By: #### 4 8664-7, PINR, 06771-8, 1798-8, 3040-3, 5643-2 #### [facility] ([id number]) [address] [facility] [facility] [place] [address] PT Coag (PPP) [Time] 17.2 s High 9.8-13.2 [facility] Comment on above: Performed By: #### 4 8664-7, PINR, 32747-8, 1798-8, 3040-3, 5643-2 #### [facility] ([id number]) [address] [facility] [place] [address] XR FEMUR LT 2+ VIEWSon 06-04 XR FEMUR LT 2+ VIEWS XR FEMUR LT 2+ VIEWS History: Fracture Exam/Technique: Frontal and lateral views of the left femur were obtained. Comparison: 06/02/2024 Findings: There is been interval internal fixation of the comminuted periprosthetic fracture of the distal femur seen on the prior study. The fracture fragments appear to be in stable anatomic position. The remainder the visualized osseous structures are intact. IMPRESSION: Internal fixation of the periprosthetic fracture seen on the previous examination dated 06/02/2024. Finalized by Jany Lopez MD on 06/04/2024 12:02 AM Normal [facility] AMYLASEon 06-03-2024 Amylase [Catalytic activity/Vol] 75 U/L Normal 28-100 [facility] Comment on above: Performed By: #### 4 8664-7, PINR, 99356-4, 1798-8, 3040-3, 5643-2 #### [facility] ([id number]) [address], [address] [place] [address] BASIC METABOLIC PANLon 06-03 Anion gap [Moles/Vol] 9 mmol/L Normal 5-15 [facility] Comment on above: Performed By: #### 4 8664-7, PINR, 31075-4, 1798-8, 3040-3, 5643-2 #### [facility] ([id number]) [address], [address] [place] [address] Calcium [Mass/Vol] 8.3 mg/dL Low 8.5-10.5 [facility] Comment on above: Performed By: #### 4 8664-7, PINR, 44305-6, 1798-8, 3040-3, 5643-2 #### [facility] ([id number]) [address], [address] [place] [address] Chloride [Moles/Vol] 114 mmol/L High 98-109 [facility] Comment on above: Performed By: #### 4 8664-7, PINR, 42579-9, 1798-8, 3040-3, 5643-2 #### [facility] ([id number]) [address], [address] [place] [address] CO2 [Moles/Vol] 21 mmol/L Low 22-32 [facility] Comment on above: Performed By: #### 4 8664-7, PINR, 07928-3, 1798-8, 3040-3, 5643-2 #### [facility] ([id number]) [address], [address] [place] [address] Creatinine [Mass/Vol] 1.68 mg/dL High 0.40-1.00 [facility] Comment on above: Result Comment: METH OD TRACEABLE TO IDMS STANDARD Performed By: #### 4 8664-7, PINR, 57448-7, 1798-8, 3040-3, 5643-2 #### [facility] ([id number]) [address], [address] [place] [address] GFR/1.73 sq M.predicted among non-blacks MDRD (S/P/Bld) [Vol rate/Area] 33 mL/min/{1.73_m2} Low >59 [facility] Comment on above: Result Comment: Reported eGFR is based on the CKD-EPI 2020 equation that does not use a race coefficient. Performed By: #### 4 8664-7, PINR, 95754-3, 1798-8, 3040-3, 5643-2 #### [facility] ([id number]) [address], [address] [place] [address] Glucose [Mass/Vol] 100 mg/dL High 65-99 [facility] Comment on above: Performed By: #### 4 8664-7, PINR, 54040-3, 1798-8, 3040-3, 5643-2 #### [facility] ([id number]) [address], [address] [place] [address] Potassium [Moles/Vol] 4.0 mmol/L Normal 3.5-5.0 [facility] Comment on above: Performed By: #### 4 8664-7, PINR, 30072-4, 1798-8, 3040-3, 5643-2 #### [facility] ([id number]) [address], [address] [place] [address] Sodium [Moles/Vol] 144 mmol/L Normal 134-146 [facility] Comment on above: Performed By: #### 4 8664-7, PINR, 48705-5, 1798-8, 3040-3, 5643-2 #### [facility] ([id number]) [address], [address] [place] [address] Urea nitrogen [Mass/Vol] 33 mg/dL High 5-27 [facility] Comment on above: Performed By: #### 4 8664-7, PINR, 57197-7, 1798-8, 3040-3, 5643-2 #### [facility] ([id number]) [address], [address] [place] [address] CBC AND AUTO DIFFon 06-03-20 24 ABSOLUTE BASOPHIL 0.1 X10E9/L Normal 0.0-0.2 [facility] Comment on above: Performed By: #### P INR, CBCA, BMP #### [facility] ([id number]) [address], [address] [address] ABSOLUTE NEUTROPHIL 7.4 X10E9/L High 1.5-6.6 [facility] Comment on above: Performed By: #### P INR, CBCA, BMP #### [facility] ([id number]) [address], [address] [place] [address] Basophils/100 WBC (Bld) 0.7 % Normal [facility] Comment on above: Performed By: #### P INR, CBCA, BMP #### [facility] ([id number]) [address] [address] Eosinophils (Bld) [#/Vol] 0.0 10*3/uL Normal 0.0-0.4 [facility] Comment on above: Performed By: #### P INR, CBCA, BMP #### [facility] ([id number]) [address], [address] [place] [address] Eosinophils/100 WBC (Bld) 0.3 % Normal [facility] Comment on above: Performed By: #### P INR, CBCA, BMP #### [facility] ([id number]) [address], [address] [place] [address] Erythrocyte distribution width (RBC) [Ratio] 13.7 % Normal 11.5-15.0 [facility] Comment on above: Performed By: #### P INR, CBCA, BMP #### [facility] ([id number]) [address], [address] [place] [address] Hematocrit (Bld) [Volume fraction] 32.0 % Low 35-47 [facility] Comment on above: Performed By: #### P INR, CBCA, BMP #### [facility] ([id number]) [address], [address] [place] [address] Hemoglobin (Bld) [Mass/Vol] 10.8 g/dL Low 11.7-15.5 [facility] Comment on above: Performed By: #### P INR, CBCA, BMP #### [facility] [facility] ([id number]) [address], [facility] [address] [place] [address] Lymphocytes (Bld) [#/Vol] 0.9 10*3/uL Low 1.0-3.5 [facility] Comment on above: Performed By: #### P INR, CBCA, BMP #### [facility] ([id number]) [address], [facility] [address] [place] [address] Lymphocytes/100 WBC (Bld) 9.4 % Normal [facility] Comment on above: Performed By: #### P INR, CBCA, BMP #### [facility] ([id number]) [address], [address] [place] [address] MCH (RBC) [Entitic mass] 31.7 pg Normal 27-34 [facility] Comment on above: Performed By: #### P INR, CBCA, BMP #### [facility] ([id number]) [address] [place] [address] MCHC (RBC) [Mass/Vol] 33.9 g/dL Normal 32-36 [facility] Comment on above: Performed By: #### P INR, CBCA, BMP #### [facility] ([id number]) [address], [address] [place] [address] MCV (RBC) [Entitic vol] 94 fL Normal 80-100 [facility] Comment on above: Performed By: #### P INR, CBCA, BMP #### [facility] ([id number]) [address] [facility] [address] [place] [address] Monocytes (Bld) [#/Vol] 1.0 10*3/uL High 0-0.9 [facility] Comment on above: Performed By: #### P INR, CBCA, BMP #### [facility] ([id number]) [address] [address] Monocytes/100 WBC (Bld) 10.4 % Normal [facility] Comment on above: Performed By: #### P INR, CBCA, BMP #### [facility] ([id number]) [address], [address] [address] Neutrophils/100 WBC (Bld) 79.2 % Normal [facility] Comment on above: Performed By: #### P INR, CBCA, BMP #### [facility] ([id number]) [address], [facility] [address] [place] [address] Platelet mean volume (Bld) [Entitic vol] 7.7 fL Normal 7-12 [facility] Comment on above: Performed By: #### P INR, CBCA, BMP #### [facility] ([id number]) [address], [address] [address] Platelets (Bld) [#/Vol] 192 10*3/uL Normal 150-450 [facility] Comment on above: Performed By: #### P INR, CBCA, BMP #### [facility] ([id number]) [address] [address] [place] [address] RBC COUNT 3.42 X10E12/L Low 3.80-5.20 [facility] Comment on above: Performed By: #### P INR, CBCA, BMP #### [facility] ([id number]) [address], [address] [place] [address] WBC (Bld) [#/Vol] 9.3 10*3/uL Normal 4.0-11.0 [facility] Comment on above: Performed By: #### P INR, CBCA, BMP #### [facility] ([id number]) [address], [address] [place] [address] CT TIBFIB LT WO CONTon 06-03 CT TIBFIB LT WO CONT CT TIBFIB LT WO CONT History: Lower leg trauma PROCEDURE: Automated exposure control was utilized. CT performed through the left tibia and fibula Findings/Impression: * No fracture or destructive lesion of the tibia or fibula. No abnormal fluid collections within the leg * Comminuted fracture distal femur partially imaged and detailed CT femur report. Finalized by Jose R Rodriguez MD on 06/03/2024 12:12 AM Normal [facility] DRUG SCREEN, URINEon 024 AMPHETAMINE/METHAMP Negative Normal NEG [facility] Comment on above: Result Comment: AMPH /METH screening cut off = 1000 ng/mL Performed By: #### D SOW #### [facility] ([id number]) [address], [address] [place] [address] BARBITURATES Negative Normal NEG [facility] Comment on above: Result Comment: Hannah iturates screening cut off value = 200 ng/mL Performed By: #### D SOW #### [facility] ([id number]) [address], [address] [place] [address] BENZODIAZEPINES Negative Normal NEG [facility] Comment on above: Result Comment: Wes odiazepines screening cut off value = 200 ng/mL Performed By: #### D SOW #### [facility] ([id number]) [address], [address] [place] [address] CANNABINOIDS Negative Normal [facility]G [facility] Comment on above: Result Comment: Tan abinoids/THC screening cut off value = 50 ng/mL Performed By: #### D SOW #### [facility] ([id number]) [address], [address] [place] [address] COCAINE METABOLITE Negative Normal NEG [facility] Comment on above: Result Comment: Coca ine screening cut off value = 300 ng/mL Performed By: #### D SOW #### [facility] ([id number]) [address], [address] [place] [address] ECSTASY Negative Normal NEG [facility] Comment on above: Result Comment: Ecst asy screening cut off value = 500 ng/mL This report is intended for use in clinical monitoring or management of patients. Performed By: #### D SOW #### [facility] ([id number]) [address], [address] [place] [address] METHADONE Negative Normal NEG [facility] Comment on above: Result Comment: Meth adone screening cut off value = 300 ng/mL. Performed By: #### D SOW #### [facility] ([id number]) [address], [address] [place] [address] OPIATES Positive Abnormal NEG [facility] Comment on above: Result Comment: Conf irmation available upon request. Opiates screening cut off value = 300 ng/mL NOTE: This test is used for the detection of codeine, hydrocodone (>1000 ng/mL), morphine and hydromorphone (>900 ng/mL) in urine. Performed By: #### D SOW #### [facility] ([id number]) [address], [address] [place] [address] OXYCODONE Negative Normal NEG [facility] Comment on above: Result Comment: Oxyc odone screening cut off value = 300 ng/mL NOTE: This test is used for the detection of oxycodone and oxymorphone in urine. Performed By: #### D SOW #### [facility] ([id number]) [address], [address] [place] [address] PHENCYCLIDINE Negative Normal NEG [facility] Comment on above: Result Comment: Phen cyclidine screening cut off value = 25 ng/mL Performed By: #### D SOW #### [facility] ([id number]) [address], [address] [place] [address] ETHANOLon 06-03-2024 Ethanol [Mass/Vol] mg/dL Normal 0.00-0.08 [facility] Comment on above: Result Comment: This report is intended for use in clinical monitoring or management of patients. Performed By: #### 4 8664-7, PINR, 29617-4, 1798-8, 3040-3, 5643-2 #### [facility] ([id number]) [address], [address] [place] [address] Fibrinogen Coagulation.deriv ed (PPP) [Mass/Vol]on 06-03-2024 FIBRINOGEN 370 mg/dL Normal 190-480 [facility] Comment on above: Performed By: #### 4 8664-7, PINR, 19395-6, 1798-8, 3040-3, 5643-2 #### [facility] ([id number]) [address], [address] [place] [address] LIPASEon 06-03-2024 Lipase [Catalytic activity/Vol] 16 U/L Normal 11-82 [facility] Comment on above: Performed By: #### 4 8664-7, PINR, 34557-7, 1798-8, 3040-3, 5643-2 #### [facility] ([id number]) [address], [address] [place] [address] PROTIME AND INRon 06-03-2024 INR Coag (PPP) [Relative time] 1.7 {INR} High 0.8-1.1 [facility] Comment on above: Performed By: #### 4 8664-7, PINR, 31556-6, 1798-8, 3040-3, 5643-2 #### [facility] ([id number]) [address], [address] [place] [address] PT Coag (PPP) [Time] 19.4 s High 9.8-13.2 [facility] Comment on above: Performed By: #### 4 8664-7, PINR, 40361-1, 1797-8, 3040-3, 5643-2 #### [facility] ([id number]) [address], [address] [place] [address] INR Coag (PPP) [Relative time] 2.3 {INR} High 0.8-1.1 [facility] Comment on above: Performed By: #### P INR, CBCA, BMP #### [facility] ([id number]) [address], [address] [place] [address] PT Coag (PPP) [Time] 25.9 s High 9.8-13.2 [facility] Comment on above: Performed By: #### P INR, CBCA, BMP #### [facility] ([id number]) [address], [address] [place] [address] INR Coag (PPP) [Relative time] 2.3 {INR} High 0.8-1.1 [facility] Comment on above: Performed By: #### 4 8664-7, PINR, 64093-7, 1797-8, 3040-3, 5643-2 #### [facility] ([id number]) [address], [address] [place] [address] PT Coag (PPP) [Time] 26.3 s High 9.8-13.2 [facility] Comment on above: Performed By: #### 4 8664-7, PINR, 80237-6, 8-8, 3040-3, 5643-2 #### [facility] ([id number]) [address] [place] [address] URINALYSISon 06-03-2024 Bilirubin Ql (U) Negative Normal NEG [facility] Comment on above: Performed By: #### U A #### [facility] ([id number]) [address] [place] [address] BLOOD/HGB Trace Abnormal NEG [facility] Comment on above: Performed By: #### U A #### [facility] ([id number]) [address] [place] [address] CA OXALATE CRYSTALS PRESENT Abnormal NONE [facility] Comment on above: Performed By: #### U A #### [facility] ([id number]) [address], [address] [place] [address] Color (U) BROWN Abnormal YELLOW [facility] Comment on above: Performed By: #### U A #### [facility] ([id number]) [address], [address] [place] [address] Glucose Ql (U) Negative Normal NEG [facility] Comment on above: Performed By: #### U A #### [facility] ([id number]) [address] [place] [address] Ketones Ql (U) Negative Normal NEG [facility] Comment on above: Performed By: #### U A #### [facility] ([id number]) [address] [place] [address] Leukocyte esterase Test strip Ql (U) Large Abnormal NEG [facility] Comment on above: Performed By: #### U A #### [facility] ([id number]) [address] [place] [address] Nitrite Ql (U) Positive Abnormal NEG [facility] Comment on above: Performed By: #### U A #### [facility] ([id number]) [address], [address] [place] [address] pH (U) 5.5 [pH] Normal 5.0-8.5 [facility] Comment on above: Performed By: #### U A #### [facility] ([id number]) [address] [place] [address] Protein Ql (U) 50 mg/dL Abnormal NEG [facility] Comment on above: Performed By: #### U A #### [facility] ([id number]) [address] [address] [place] [address] R.B.CELLS 10 /hpf High 0-5 [facility] Comment on above: Performed By: #### U A #### [facility] ([id number]) [address] [address] [place] [address] Specific gravity (U) [Rel density] 1.014 Normal 1.003-1.035 [facility] Comment on above: Performed By: #### U A #### [facility] ([id number]) [address] [address] [place] [address] TURBIDITY CLOUDY Abnormal CLEAR [facility] Comment on above: Performed By: #### U A #### [facility] ([id number]) [address] [address] [place] [address] Urobilinogen (U) [Mass/Vol] mg/dL Normal <1.1 [facility] Comment on above: Performed By: #### U A #### [facility] ([id number]) [address] [address] [place] [address] W.B.CELLS >720 High 0-5 [facility] Comment on above: Performed By: #### U A #### [facility] ([id number]) [address] [address] [place] [address] WBC CLUMPS MANY Abnormal NONE [facility] Comment on above: Performed By: #### U A #### [facility] ([id number]) [address] [facility] [place] [address] Vitamin D+Metabolites [Mass/ Vol]on 06-03-2024 VITAMIN D 25 HYD TOT 54.4 ng/mL Normal 30-100 [facility] Comment on above: Result Comment: Vitamin D status 25 [place] Vitamin D Deficiency <20 ng/mL Insufficiency 20-29 ng/mL Sufficiency 30-100 ng/mL Toxicity >100 ng/mL NOTE: A pediatric reference range has not been established by the acid strength inspector of this kit. The [place] [employer] recommends a Vitamin D level of = or >20ng/mL in infants and children. Performed By: #### 4 8664-7, PINR, 06530-3, 1798-8, 3040-3, 5643-2 #### [facility] ([id number]) [address], [address] [place] [address] XR FEMUR LT 2+ VIEWSon 06-03 XR FEMUR LT 2+ VIEWS XR FEMUR LT 2+ VIEWS XR FEMUR LT 2+ VIEWS HISTORY: Surgery. COMPARISON: CT 06/02/2024. IMPRESSION: Reference air kerma 7.8 mGy. Fluoroscopic guidance provided. Please see details within procedural/operative note. Finalized by Guevara Archer MD on 06/03/2024 7:03 PM Normal [facility] aPTT Coag (PPP) [Time]on aPTT Coag (Bld) [Time] 38 s High 26-37 [facility] Comment on above: Performed By: #### 4 8664-7, PINR, 94292-8, 1798-8, 3040-3, 5643-2 #### [facility] ([id number]) [address] [facility] [place] [address] CBC AND AUTO DIFFon 06-02-20 24 ABSOLUTE BASOPHIL 0.0 X10E9/L Normal 0.0-0.2 [facility] Comment on above: Performed By: #### M ALBU #### [facility] ([id number]) [address] [facility], [address] [place] [address] ABSOLUTE NEUTROPHIL 8.9 X10E9/L High 1.5-6.6 [facility] Comment on above: Performed By: #### M ALBU #### [facility] ([id number]) [address] [facility] [address] [place] [address] Basophils/100 WBC (Bld) 0.3 % Normal [facility] Comment on above: Performed By: #### M ALBU #### [facility] ([id number]) [address] [facility] [address] [place] [address] Eosinophils (Bld) [#/Vol] 0.1 10*3/uL Normal 0.0-0.4 [facility] Comment on above: Performed By: #### M ALBU #### [facility] ([id number]) [address] [facility], [facility] [address] [place] [address] Eosinophils/100 WBC (Bld) 0.9 % Normal [facility] Comment on above: Performed By: #### M ALBU #### [facility] ([id number]) [address] [facility] [address] [place] [address] Erythrocyte distribution width (RBC) [Ratio] 14.1 % Normal 11.5-15.0 [facility] Comment on above: Performed By: #### M ALBU #### [facility] ([id number]) [address] [facility] [address] [place] [address] Hematocrit (Bld) [Volume fraction] 37.8 % Normal 35-47 [facility] Comment on above: Performed By: #### M ALBU #### [facility] ([id number]) [address], [address] [place] [address] Hemoglobin (Bld) [Mass/Vol] 12.6 g/dL Normal 11.7-15.5 [facility] Comment on above: Performed By: #### M ALBU #### [facility] ([id number]) [address] [place] [address] Lymphocytes (Bld) [#/Vol] 0.8 10*3/uL Low 1.0-3.5 [facility] Comment on above: Performed By: #### M ALBU #### [facility] ([id number]) [address] [place] [address] Lymphocytes/100 WBC (Bld) 7.8 % Normal [facility] Comment on above: Performed By: #### M ALBU #### [facility] ([id number]) [address], [address] [place] [address] MCH (RBC) [Entitic mass] 31.3 pg Normal 27-34 [facility] Comment on above: Performed By: #### M ALBU #### [facility] ([id number]) [address] [place] [address] MCHC (RBC) [Mass/Vol] 33.3 g/dL Normal 32-36 [facility] Comment on above: Performed By: #### M ALBU #### [facility] ([id number]) [address], [address] [place] [address] MCV (RBC) [Entitic vol] 94 fL Normal 80-100 [facility] Comment on above: Performed By: #### M ALBU #### [facility] ([id number]) [address] [place] [address] Monocytes (Bld) [#/Vol] 0.4 10*3/uL Normal 0-0.9 [facility] Comment on above: Performed By: #### M ALBU #### [facility] ([id number]) [address], [address] [place] [address] Monocytes/100 WBC (Bld) 4.1 % Normal [facility] Comment on above: Performed By: #### M ALBU #### [facility] ([id number]) [address], [address] [place] [address] Neutrophils/100 WBC (Bld) 86.9 % Normal [facility] Comment on above: Performed By: #### M ALBU #### [facility] ([id number]) [address], [address] [place] [address] Platelet mean volume (Bld) [Entitic vol] 7.3 fL Normal 7-12 [facility] Comment on above: Performed By: #### M ALBU #### [facility] ([id number]) [address], [address] [place] [address] Platelets (Bld) [#/Vol] 250 10*3/uL Normal 150-450 [facility] Comment on above: Performed By: #### M ALBU #### [facility] ([id number]) [address], [address] [place] [address] RBC COUNT 4.03 X10E12/L Normal 3.80-5.20 [facility] Comment on above: Performed By: #### M ALBU #### [facility] ([id number]) [address], [address] [place] [address] WBC (Bld) [#/Vol] 10.3 10*3/uL Normal 4.0-11.0 [facility] Comment on above: Performed By: #### M ALBU #### [facility] ([id number]) [address], [address] [place] [address] COMPREHENSIVE METABOLIC PANE Byron 09-05-2024 Albumin [Mass/Vol] 4.2 g/dL Normal 3.2-5.3 [facility] Comment on above: Performed By: #### M ALBU #### [facility] ([id number]) [address], [address] [place] [address] ALP [Catalytic activity/Vol] 73 U/L Normal 39-130 [facility] Comment on above: Performed By: #### M ALBU #### [facility] ([id number]) [address], [address] [place] [address] ALT [Catalytic activity/Vol] 22 U/L Normal 0-31 [facility] Comment on above: Performed By: #### M ALBU #### [facility] ([id number]) [address], [address] [place] [address] Anion gap [Moles/Vol] 12 mmol/L Normal 5-15 [facility] Comment on above: Performed By: #### M ALBU #### [facility] ([id number]) [address] [place] [address] AST [Catalytic activity/Vol] 20 U/L Normal 0-41 [facility] Comment on above: Performed By: #### M ALBU #### [facility] ([id number]) [address] [place] [address] Bilirubin [Mass/Vol] 0.7 mg/dL Normal 0.3-1.2 [facility] Comment on above: Performed By: #### M ALBU #### [facility] ([id number]) [address], [address] [place] [address] Calcium [Mass/Vol] 8.7 mg/dL Normal 8.5-10.5 [facility] Comment on above: Performed By: #### M ALBU #### [facility] ([id number]) [address], [address] [place] [address] Chloride [Moles/Vol] 108 mmol/L Normal 98-109 [facility] Comment on above: Performed By: #### M ALBU #### [facility] ([id number]) [address] [place] [address] CO2 [Moles/Vol] 17 mmol/L Low 22-32 [facility] Comment on above: Performed By: #### M ALBU #### [facility] ([id number]) [address] [address] [place] [address] Creatinine [Mass/Vol] 1.86 mg/dL High 0.40-1.00 [facility] Comment on above: Result Comment: METH OD TRACEABLE TO IDMS STANDARD Performed By: #### M ALBU #### [facility] ([id number]) [address] [address] [place] [address] GFR/1.73 sq M.predicted among non-blacks MDRD (S/P/Bld) [Vol rate/Area] 29 mL/min/{1.73_m2} Low >59 [facility] Comment on above: Result Comment: Reported eGFR is based on the CKD-EPI 2020 equation that does not use a race coefficient. Performed By: #### M ALBU #### [facility] ([id number]) [address] [place] [address] Glucose [Mass/Vol] 133 mg/dL High 65-99 [facility] Comment on above: Performed By: #### M ALBU #### [facility] ([id number]) [address] [address] [place] [address] Potassium [Moles/Vol] 3.7 mmol/L Normal 3.5-5.0 [facility] Comment on above: Performed By: #### M ALBU #### [facility] ([id number]) [address] [place] [address] Protein [Mass/Vol] 7.0 g/dL Normal 6.0-8.0 [facility] Comment on above: Performed By: #### M ALBU #### [facility] ([id number]) [address] [place] [address] Sodium [Moles/Vol] 137 mmol/L Normal 134-146 [facility] Comment on above: Performed By: #### M ALBU #### [facility] ([id number]) [address] [place] [address] Urea nitrogen [Mass/Vol] 43 mg/dL High 5-27 [facility] Comment on above: Performed By: #### M ALBU #### [facility] ([id number]) [address] [place] [address] CT FEMUR LT WO CONTon 2023 CT FEMUR LT WO CONT CT FEMUR LT WO CONT CT FEMUR LT WO CONT HISTORY: Leg trauma, pain.. COMPARISON: 10/05/2022. TECHNIQUE: Contiguous axial CT was performed of the left femur from the supra-acetabular region through the knee joint., coronal and sagittal reformatted images were generated and reviewed. IMPRESSION: Comminuted distal femoral metadiaphyseal fractures with at least 1.8 cm impaction. Surrounding blood products in hemarthrosis, blood products extends into the posterior compartment of the leg, posterior displacing adjacent vasculature and sciatic nerve, as seen on series 3 image #[id number]]. No additional transcortical fracture of the visualized left hemipelvis, remaining femoral diaphysis are femoral neck. Arthroplasty partially obscures assessment. Tib-fib dictated separately. Chronic hematoma overlying the axilla left lateral thigh, this measures at least 10.0 x 9.2 x [address] scans at this facility use dose modulation, iterative reconstruction, and/or weight based dosing when appropriate Finalized by Oliver Loyola MD on 06/02/2024 10:47 PM Normal [facility] PROTIME AND INRon 06-02-2024 INR Coag (PPP) [Relative time] 2.0 {INR} High 0.8-1.1 [facility] Comment on above: Performed By: #### M ALBU #### [facility] ([id number]) [address] [place] [address] PT Coag (PPP) [Time] 23.1 s High 9.8-13.2 [facility] Comment on above: Result Comment: NEW REFERENCE RANGE Performed By: #### M ALBU #### [facility] ([id number]) [address] [place] [address] XR CHEST 1 VWon 06-02-2024 XR CHEST 1 VW XR CHEST 1 VW HISTORY: A 68-year-old female with the history of fall. Preoperative examination for the knee fracture. EXAM/TECHNIQUE: CHEST: Semierect AP view COMPARISON: Comparison is made with prior chest examination of 08/09/2023. FINDINGS: Both lungs and costophrenic angles are clear. There is no evidence of pulmonary infiltrate or acute pulmonary pathology. The cardiac silhouette is within normal limits. There are aortic calcifications. The trachea is in midline. The mediastinum is otherwise unremarkable. The hemidiaphragms are normal in position. The bony rib cage is intact. IMPRESSION: * No evidence of pulmonary infiltrate, acute pulmonary pathology or significant interval change. Finalized by Pedro Dickens MD on 06/02/2024 10:50 PM Normal [facility] XR HIP LT 2-3 VIEWS W OR WO PELVISon 06-02-2024 XR HIP LT 2-3 VIEWS W OR WO PELVIS XR HIP LT 2-3 VIEWS W OR WO PELVIS XR HIP LT 2-3 VIEWS W PELVIS HISTORY: fall. Pelvic pain COMPARISON: 04/17/2024 IMPRESSION: PELVIS: No displaced or pelvic fracture seen. Degenerative changes sacral iliac joints and lower lumbar spine. Vascular calcifications LEFT HIP: No acute fracture, dislocation or malalignment. If there is suspected occult osseous abnormality, recommend MR. Finalized by Oliver Loyola MD on 06/02/2024 5:28 PM Normal [facility] XR KNEE LT 3 VWSon 4 XR KNEE LT 3 VWS XR KNEE LT 3 VWS HISTORY: A 68-year-old female with the history of fall. Complaining of the left knee pain. TECHNIQUE: Left knee: 3 views COMPARISON: Comparison is made with the left knee radiographs of 04/17/2024. 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 Metallic prosthesis is in satisfactory position. There is a comminuted fracture of the distal shaft of the femur and periprostatic region. There is a minimal angular deformity and impaction of the fracture. Associated soft tissue swelling is seen. There is an osteopenia. IMPRESSION: * There is a total left knee replacement. * There is a distal shaft of the left femur and periprostatic comminuted fracture with mild deformity and minimal anterior angulation. * An osteopenia. Finalized by Pedro Dickens MD on 06/02/2024 5:33 PM Normal [facility] aPTT Coag (PPP) [Time]on aPTT Coag (Bld) [Time] 39 s High 26-37 [facility] Comment on above: Result Comment: NEW REFERENCE RANGE Performed By: #### M ALBU #### [facility] ([id number]) [address], [address] [place] [address] 36on 05-26-2024 36 Faxed clearance to Miriam Linares office at [phone]. Nurse notified [facility] manages coumadin Normal [facility] Orders Onlyon 05-25-2024 Orders Only [id number] Keila Garcia 1955 F Date Provider Department Center 05/25/2024 GREG PATEL [facility] CARD [facility] No family history on file Normal [facility] No Panel Informationon 05-04 Results can be seen in attached scanned documents. If you are a patient reviewing this test result, call the doctor who ordered the test with any questions. [facility] [place] [facility] MR SHOULDER LEFT WO IV CONTR Gurpreet 05-03-2024 MR SHOULDER LEFT WO IV CONTRAST EXAM: MR SHOULDER LEFT WO IV CONTRAST HISTORY: Shoulder pain since a fall. TECHNIQUE: Multiplanar multisequence MRI of the shoulder was performed Without contrast. COMPARISON: Shoulder radiographs April 20, 2024. FINDINGS: Mild degenerative changes of the acromioclavicular joint with tiny undersurface osteophyte formation. The acromion is hooked. Coracoclavicular ligament intact. Small amount of subacromial/subdeltoid bursal fluid. Full-thickness tear of distal posterior fibers of supraspinatus tendon and anterior and mid fibers of infraspinatus tendon. Tiny low-grade intrasubstance tear along the myotendinous junction of supraspinatus and infraspinatus. Subscapularis and teres minor tendons are intact. No atrophy or fatty infiltration of the rotator cuff musculature. Partial tearing of the intra-articular and extra-articular long head biceps tendon. Medial subluxation of the long head biceps tendon. Advanced glenohumeral osteoarthritis including full-thickness cartilage loss of the majority of the humeral head and glenoid, subcortical cyst formation of the glenoid, tiny medial humeral head marginal osteophyte formation, and remodeling of the glenoid. Diffuse labral degeneration without definitive tear. Small glenohumeral joint effusion . IMPRESSION: Full-thickness tear of distal posterior fibers of supraspinatus tendon and anterior and mid fibers of infraspinatus tendon. Advanced glenohumeral osteoarthritis. Partial tearing of the long head biceps tendon. ELECTRONICALLY SIGNED BY: Ludwin Hutson, DO Normal Not Available Comment on above: Order Comment: MRI L T shoulder w/o at [facility]. Orbits if needed. MR Brain WO and W contrast I Von 05-02-2024 IMPRESSION: Scattered intracranial white matter lesions which are nonspecific. Greater than three new T2 lesions and no new enhancing lesions. Presence of new lesions is nonspecific given 7 Tricia examination the current study would be expected to have higher sensitivity for subtle white matter changes. No significant parenchymal volume loss. Other Significant Intracranial Findings: The majority of white matter lesions are not amenable to central vein sign evaluation due to confluent lesions and/or more than one vessel associated with each lesion. Computer Aided Design Technician: JENNA Transcribe Date/Time: May 02 2024 2:36P Dictated by : MALIHA HEIN MD This examination was interpreted and the report reviewed and electronically signed by: СЕРГЕЙ KIM MD on May 02 2024 3:43PM [facility] DIVISION OF RADIOLOGY * * *Final Report* * * DATE OF EXAM: May 02 2024 2:12PM M 3084 - MRI 7T BRAIN WO/W IVCON / PROCEDURE REASON: Demyelinating disease of central nervous system (HCC) * * * * Physician Interpretation * * * * EXAMINATION: MRI 7T BRAIN WO/W IVCON HISTORY: History of multiple vascular risk factors who initially presented to the [facility] in May 2018 for further evaluation of white matter abnormality on her MRI of the brain. Concern for chronic microvascular ischemia versus demyelinating process. TECHNIQUE: Brain 7T MRI with demyelinating disease protocol with and without IV gadolinium. MQ: [id number]_2 Contrast: 18 mL Dotarem IV COMPARISON: MRI brain 05/12/2018 RESULT: MR BRAIN: Multiple sequences are degraded by motion. Parenchymal Findings: There are multiple foci of hyperintensity on FLAIR and T2 within the white matter. New T2 Lesions: Greater than three. Site(s) of New/Larger T2 Lesion(s): Comparison to 05/12/2018 is limited due to differing slice thicknesses, though direct comparison with 3-D reconstruction reveals multiple lesions that have enlarged, as below with reference to the axial FLAIR series 8. Many of the small, punctate lesions throughout the bilateral frontal and parietal white matter may be new. Image 47 left frontal centrum semiovale. Image 49 right frontal centrum semiovale. Image 52 left parietal centrum semiovale. Image 63 left inferior frontal gyrus. Image 64 right inferior parietal lobe. Image 111 left aspect of tyree. Interval Improvement: None. New Enhancing Lesions: None T2 Loomis of Disease: Moderate. Parenchymal Volume Loss: None. Other Significant Findings: None. Motion degradation of certain sequences precludes assessment for central vein sign in multiple orthogonal planes. Central veins sign may be present in lesion within left frontal centrum semiovale (axial T2* series 15 image 45). However, the majority of the white matter changes are either confluent and/or associated with more than one vein, and do not meet criteria for central vein sign analysis. *Note:? The definition of new T2 Lesions includes both new and enlarging plaques on T2-weighted FLAIR images (new lesions greater than or equal to 5mm3 or an increase in diameter of an existing lesion by greater than or equal to 2mm). DIVISION OF RADIOLOGY Provider, Melba Marie [facility] - 05/02/2024 * * *Final Report* * * DATE OF EXAM: May 02 2024 2:12PM M 3084 - MRI 7T BRAIN WO/W IVCON / PROCEDURE REASON: Demyelinating disease of central nervous system (HCC) * * * * Physician Interpretation * * * * EXAMINATION: MRI 7T BRAIN WO/W IVCON HISTORY: History of multiple vascular risk factors who initially presented to the [facility] in May 2018 for further evaluation of white matter abnormality on her MRI of the brain. Concern for chronic microvascular ischemia versus demyelinating process. TECHNIQUE: Brain 7T MRI with demyelinating disease protocol with and without IV gadolinium. MQ: [id number]_2 Contrast: 18 mL Dotarem IV COMPARISON: MRI brain 05/12/2018 RESULT: MR BRAIN: Multiple sequences are degraded by motion. Parenchymal Findings: There are multiple foci of hyperintensity on FLAIR and T2 within the white matter. New T2 Lesions: Greater than three. Site(s) of New/Larger T2 Lesion(s): Comparison to 05/12/2018 is limited due to differing slice thicknesses, though direct comparison with 3-D reconstruction reveals multiple lesions that have enlarged, as below with reference to the axial FLAIR series 8. Many of the small, punctate lesions throughout the bilateral frontal and parietal white matter may be new. Image 47 left frontal centrum semiovale. Image 49 right frontal centrum semiovale. Image 52 left parietal centrum semiovale. Image 63 left inferior frontal gyrus. Image 64 right inferior parietal lobe. Image 111 left aspect of tyree. Interval Improvement: None. New Enhancing Lesions: None T2 Loomis of Disease: Moderate. Parenchymal Volume Loss: None. Other Significant Findings: None. Motion degradation of certain sequences precludes assessment for central vein sign in multiple orthogonal planes. Central veins sign may be present in lesion within left frontal centrum semiovale (axial T2* series 15 image 45). However, the majority of the white matter changes are either confluent and/or associated with more than one vein, and do not meet criteria for central vein sign analysis. *Note:? The definition of new T2 Lesions includes both new and enlarging plaques on T2-weighted FLAIR images (new lesions greater than or equal to 5mm3 or an increase in diameter of an existing lesion by greater than or equal to 2mm). IMPRESSION IMPRESSION: Scattered intracranial white matter lesions which are nonspecific. Greater than three new T2 lesions and no new enhancing lesions. Presence of new lesions is nonspecific given 7 Tricia examination the current study would be expected to have higher sensitivity for subtle white matter changes. No significant parenchymal volume loss. Other Significant Intracranial Findings: The majority of white matter lesions are not amenable to central vein sign evaluation due to confluent lesions and/or more than one vessel associated with each lesion. Computer Aided Design Technician: JENNA Transcribe Date/Time: May 02 2024 2:36P Dictated by : MALIHA EHIN MD This examination was interpreted and the report reviewed and electronically signed by: СЕРГЕЙ KIM MD on May 02 2024 3:43PM EST [facility] Radiology Study observation (narrative) [facility] MR Brain WO and W contrast I VOrdered By: Ccf Provider on 05-02-2024 [facility] MRI 7T BRAIN WO/W IVCONon MRI 7T BRAIN WO/W IVCON * * *Final Report* * * DATE OF EXAM: May 02 2024 2:12PM [facility] 3084 - MRI 7T BRAIN WO/W IVCON / PROCEDURE REASON: Demyelinating disease of central nervous system (HCC) * * * * Physician Interpretation * * * * EXAMINATION: MRI 7T BRAIN WO/W IVCON HISTORY: History of multiple vascular risk factors who initially presented to the [facility] in May 2018 for further evaluation of white matter abnormality on her MRI of the brain. Concern for chronic microvascular ischemia versus demyelinating process. TECHNIQUE: Brain 7T MRI with demyelinating disease protocol with and without IV gadolinium. MQ: [id number]_2 Contrast: 18 mL Dotarem IV COMPARISON: MRI brain 05/12/2018 RESULT: MR BRAIN: Multiple sequences are degraded by motion. Parenchymal Findings: There are multiple foci of hyperintensity on FLAIR and T2 within the white matter. New T2 Lesions: Greater than three. Site(s) of New/Larger T2 Lesion(s): Comparison to 05/12/2018 is limited due to differing slice thicknesses, though direct comparison with 3-D reconstruction reveals multiple lesions that have enlarged, as below with reference to the axial FLAIR series 8. Many of the small, punctate lesions throughout the bilateral frontal and parietal white matter may be new. Image 47 left frontal centrum semiovale. Image 49 right frontal centrum semiovale. Image 52 left parietal centrum semiovale. Image 63 left inferior frontal gyrus. Image 64 right inferior parietal lobe. Image 111 left aspect of tyree. Interval Improvement: None. New Enhancing Lesions: None T2 Loomis of Disease: Moderate. Parenchymal Volume Loss: None. Other Significant Findings: None. Motion degradation of certain sequences precludes assessment for central vein sign in multiple orthogonal planes. Central veins sign may be present in lesion within left frontal centrum semiovale (axial T2* series 15 image 45). However, the majority of the white matter changes are either confluent and/or associated with more than one vein, and do not meet criteria for central vein sign analysis. *Note:? The definition of new T2 Lesions includes both new and enlarging plaques on T2-weighted FLAIR images (new lesions greater than or equal to 5mm3 or an increase in diameter of an existing lesion by greater than or equal to 2mm). IMPRESSION: Scattered intracranial white matter lesions which are nonspecific. Greater than three new T2 lesions and no new enhancing lesions. Presence of new lesions is nonspecific given 7 Tricia examination the current study would be expected to have higher sensitivity for subtle white matter changes. No significant parenchymal volume loss. Other Significant Intracranial Findings: The majority of white matter lesions are not amenable to central vein sign evaluation due to confluent lesions and/or more than one vessel associated with each lesion. Computer Aided Design Technician: PSCB Transcribe Date/Time: May 02 2024 2:36P Dictated by : MALIHA HEIN MD This examination was interpreted and the report reviewed and electronically signed by: СЕРГЕЙ KIM MD on May 02 2024 3:43PM EST [id number] Normal [facility] XR SHOULDER 2+ VIEWS LEFTon 04-20-2024 XR SHOULDER 2+ VIEWS LEFT EXAM: XR - LT SHOULDER COMP MIN 2V REASON FOR STUDY: Left shoulder pain COMPARISON: None FINDINGS: 3 views Alignment: Appropriate Joint spaces: The glenohumeral joint alignment is appropriate. Acromioclavicular joint alignment appears normal. There is a distal acromial hook or spur that could impinge upon the rotator cuff distally. Fractures: None Soft Tissues: No soft tissue swelling or apparent joint effusion. IMPRESSION: Distal acromial hook/spur possibly impinging the rotator cuff. No fracture or malalignment. Dictated on: 04/21/2024 1:20 PM This report has been electronically signed and approved by the interpreting Radiologist. Electronically Signed Сергей Pearson D.O. 2024-04-21 13:26:44 Normal Not Available XR HIP LT 2-3 VIEWS W OR WO PELVISon 04-17-2024 XR HIP LT 2-3 VIEWS W OR WO PELVIS XR HIP LT 2-3 VIEWS W OR WO PELVIS AP VIEW PELVIS AND 2 VIEWS LEFT HIP HISTORY: Fall, pain COMPARISON: 03/18/2022 FINDINGS: Degenerative changes with scoliosis in the lumbar spine. No fracture. No dislocation. IMPRESSION: No acute osseous abnormalities in the pelvis/left hip. Finalized by Isaías Sykes MD on 04/17/2024 4:40 PM Normal [facility] XR KNEE LT 3 VWSon XR KNEE LT 3 VWS XR KNEE LT 3 VWS XR KNEE LT 3 VWS HISTORY: Fall with knee pain. COMPARISON: None. IMPRESSION: 1. No acute fracture or dislocation. No large joint effusion. 2. Knee prosthesis. Finalized by Guevara Archer MD on 04/17/2024 4:30 PM Normal [facility] XR SHOULDER RT MIN 2 VWSon 0 04-17-2024 XR SHOULDER RT MIN 2 VWS XR SHOULDER RT MIN 2 VWS XR SHOULDER RIGHT MINIMUM 2 VIEWS HISTORY: Fall, pain COMPARISON: 09/05/2021 IMPRESSION: * No acute fracture or dislocation. * Narrowed acromiohumeral distance compatible with chronic rotator cuff pathology. Glenohumeral joint osteoarthritis as well. * Osteopenia. Finalized by Isaías Sykes MD on 04/17/2024 4:33 PM Normal [facility] CNOVon 03-23-2024 CNOV Office Visit (NEMSMN ) KEILA GARCIA ([id number]) 1955 F [place] Date Time Provider Department 03/23/24 2:45 PM BIB ALVA During your visit today, we recorded the following information about you: Pulse Blood pressure Weight Height 80/minute 105/71 87.5 kg 1.676 m Bib Alva MD 03/23/2024 3:56 PM Signed [facility] NEW PATIENT EVALUATION/CONSULTATIO N Referral source: Loreta Mcmillan, [facility] [address] [address] Also followed by: Patient Care Team: Javan Julien MD as PCP - General (Neurology) Loreta Mcmillan CNP as Referring (Family Medicine) PRINCIPAL NEUROLOGIC DIAGNOSIS: White matter abnormality MRI brain, Cervical spondylosis with myelopathy DISEASE SUMMARY Date of onset: 2015 (approx) Date of diagnosis of MS: work up pending Disease course at onset: Progressive without relapses Current disease course: Stable Previous disease therapies: NA Current disease therapy: NA Most recent MRI brain: 09/01/2019 Most recent MRI cervical spine: 04/15/2022 Most recent MRI thoracic spine: 04/15/2022 Most recent MRI lumbar spine: 04/15/2022 CSF: NA JCV serology result and date: NA HISTORY OF ILLNESS: An opinion on this 68-year-old woman was requested by the referring physician for a second opinion on abnormal brain MRI. The patient was unaccompanied. Previous records (physician notes, laboratory reports, and radiology reports) and imaging studies were reviewed and summarized. My recommendations will be communicated back to the patient's physician(s) by mail. Follow-up is expected to be with me at the [facility]. PRESENTING HISTORY: 06/02/[address] [place] [address] Capellan: Approximately 20 years ago in the context of migraine headaches she underwent a brain MRI and the doctor at that time told her that there was concern for demyelination on the brain MRI. The last couple of years she has been falling, no clear triggers. In some instances she doesn't get a warning she is going to fall and she just goes down. She does not feel palpitations or black out. She has always had problems with leg weakness and has had lymphedema in her legs. She has used a rollator for the last year because of instability. She was previously using a cane for the prior 10 years. During that time she estimated that she fell twice over 10 years, now is falling more frequently. Initially she saw an orthopedist, had some interventions done on back, participated in aquatherapy. Bladder control also became a progressive issue, and her urologist referred her to Dr. Julien. An MRI of the brain, particularly changes in the [id number] interval, reportedly raised suspicion for MS. One of her good friends has MS and symptoms of weakness in legs, bladder issues, dropping objects, word finding difficulties resonated with her. She has been taking tramadol daily as a preventative for migraines. She takes butalbitol as an abortive for migraine. Multiple medical comorbidities including morbid obesity, paroxysmal afib on warfarin, hypertention, chronic kidney disease. She is currently in a bariatric program to get a gastric sleeve surgery done in [place]. No LP was performed because she is on Coumadin. The above history was reviewed and verified as complete and accurate. INTERVAL HISTORY: Her symptoms have been largely stable since her last visit. Underwent bariatric surgery Halloween 2017. Lost 150 lbs. Current Symptoms: Recurrent falls. No preceding symptoms. Uses a walker. Urinary incontinence. Wears pads daily. Intermittent upper extremity weakness. Occasional difficulty reaching above her head. Some hip weakness. Difficulty getting up when she falls. Lymphedema. Squeezing pain in the feet out of proportion to the level of swelling. PAST HISTORY: Past Medical and Surgical History: Migraine headaches Obesity s/p gastric sleeve pAF on warfarin Hypertension CKD Tonsillectomy and uvuloplasty Cholecystectomy TKR bilateral has a current medication list which includes the following prescription(s): aspirin, enteric coated, acetaminophen 325 mg-caffeine 40 mg-butalbital 50 mg, cinnamon bark, famotidine, flecainide, fluoxetine, gabapentin, magnesium, metoprolol succinate er, omega-3/dha/epa/fish oil, fd877-[id number]-efoff acid, vit c,u-jj-yachf-lutein-ze axan, rosuvastatin, solifenacin, topiramate, warfarin, and warfarin. Social History Tobacco Use Smoking status: Never Smokeless tobacco: Never Family History: Limited due to adoption Mother of metastatic breast cancer PHYSICAL EXAM: BP 105/71 Pulse 80 Ht 167.6 cm (5' 6 ) Wt 87.5 kg (193 lb) BMI 31.15 kg/m? Hair, skin, nails, and joints were normal. Neck was supple without Lhermitte's phenomenon. There was no peripheral edema. The patient was alert and oriented to person, place, (more content not included)... Normal [facility] METABOLIC PANE Byron 02-15-2024 Albumin [Mass/Vol] 4.2 g/dL Normal 3.2-5.3 [facility] Comment on above: Performed By: #### C JACINDA, CMP #### [facility] ([id number]) [address], [address] [place] [address] ALP [Catalytic activity/Vol] 73 U/L Normal 39-130 [facility] Comment on above: Performed By: #### C JACINDA, CMP #### [facility] ([id number]) [address], [address] [place] [address] ALT [Catalytic activity/Vol] 22 U/L Normal 0-31 [facility] Comment on above: Performed By: #### C JACINDA, CMP #### [facility] ([id number]) [address], [address] [place] [address] Anion gap [Moles/Vol] 11 mmol/L Normal 5-15 [facility] Comment on above: Performed By: #### C BC, CMP #### [facility] ([id number]) [address], [address] [place] [address] AST [Catalytic activity/Vol] 22 U/L Normal 0-41 [facility] Comment on above: Performed By: #### C BC, CMP #### [facility] ([id number]) [address], [address] [place] [address] Bilirubin [Mass/Vol] 0.4 mg/dL Normal 0.3-1.2 [facility] Comment on above: Performed By: #### C BC, CMP #### [facility] ([id number]) [address], [address] [place] [address] Calcium [Mass/Vol] 8.9 mg/dL Normal 8.5-10.5 [facility] Comment on above: Performed By: #### C JACINDA, CMP #### [facility] ([id number]) [address], [address] [place] [address] Chloride [Moles/Vol] 108 mmol/L Normal 98-109 [facility] Comment on above: Performed By: #### C JACINDA, CMP #### [facility] ([id number]) [address] [place] [address] CO2 [Moles/Vol] 21 mmol/L Low 22-32 [facility] Comment on above: Performed By: #### C JACINDA, CMP #### [facility] ([id number]) [address], [address] [place] [address] Creatinine [Mass/Vol] 1.47 mg/dL High 0.40-1.00 [facility] Comment on above: Result Comment: METH OD TRACEABLE TO IDMS STANDARD Performed By: #### C JACINDA, CMP #### [facility] ([id number]) [address], [address] [place] [address] GFR/1.73 sq M.predicted among non-blacks MDRD (S/P/Bld) [Vol rate/Area] 38 mL/min/{1.73_m2} Low >59 [facility] Comment on above: Result Comment: Reported eGFR is based on the CKD-EPI 1 equation that does not use a race coefficient. Performed By: #### C BC, CMP #### [facility] ([id number]) [address], [address] [place] [address] Glucose [Mass/Vol] 102 mg/dL High 65-99 [facility] Comment on above: Performed By: #### C BC, CMP #### [facility] ([id number]) [address], [address] [place] [address] Potassium [Moles/Vol] 3.5 mmol/L Normal 3.5-5.0 [facility] Comment on above: Performed By: #### C BC, CMP #### [facility] ([id number]) [address], [address] [place] [address] Protein [Mass/Vol] 7.0 g/dL Normal 6.0-8.0 [facility] Comment on above: Performed By: #### C BC, CMP #### [facility] ([id number]) [address], [address] [place] [address] Sodium [Moles/Vol] 140 mmol/L Normal 134-146 [facility] Comment on above: Performed By: #### C BC, CMP #### [facility] ([id number]) [address], [address] [place] [address] Urea nitrogen [Mass/Vol] 41 mg/dL High 5-27 [facility] Comment on above: Performed By: #### C BC, CMP #### [facility] ([id number]) [address], [address] [place] [address] BI MAMMOGRAM DIAGNOSTIC SALOMÓN SYNTHESIS BILATERALon 02-09-2024 BI MAMMOGRAM DIAGNOSTIC TOMOSYNTHESIS BILATERAL This is a summary report. The complete report is available in the patient's medical record. If you cannot access the medical record, please contact the sending organization for a detailed fax or copy. EXAMINATION: BI MAMMOGRAM DIAGNOSTIC TOMOSYNTHESIS BILATERAL CLINICAL HISTORY:screening COMPARISON: November 08, 2019 and October 28, 2019. RESULT: Digital mammography and 3D tomosynthesis of bilateral breasts was performed. Density: Almost entirely fatty [1] Right breast: Stable.There is no suspicious mass, asymmetry, architectural distortion, or calcification. Left breast: New aggregate benign lucent centered cutaneous calcifications upper outer quadrant replacing the mass presumably resected subsequent to the prior November 08, 2019 examination. No suspicious mass, asymmetry or distortion. No significant axillary lymphadenopathy. IMPRESSION: BIRADS 2 - Benign Follow-up: Routine Screening Mamm Board Certified Radiologists. Accredited by the ACR and FDA. MAMMOGRAPHY IS VERY IMPORTANT TO YOUR HEALTH. THE [place] [employer] GUIDELINES RECOMMEND THAT WOMEN 40 YEARS OF AGE AND OLDER SHOULD HAVE A MAMMOGRAM EVERY YEAR. A REMINDER LETTER WILL BE SENT AT THE APPROPRIATE TIME. THIS FACILITY UTILIZES A REMINDER SYSTEM TO ENSURE ALL PATIENTS RECEIVE REMINDER NOTIFICATIONS AT THE APPROPRIATE TIME BASED ON THE RECOMMENDATIONS OF THIS EXAM. THIS INCLUDES REMINDERS FOR ROUTINE SCREENING MAMMOGRAMS, DIAGNOSTIC MAMMOGRAMS IN WHICH THE PATIENT IS ASKED TO RETURN FOR ADDITIONAL VIEWS, OR OTHER BREAST IMAGING INTERVENTIONS WHEN APPROPRIATE. THE PATIENT WILL BE PLACED IN THE APPROPRIATE REMINDER SYSTEM INCLUDING A REMINDER AT THE APPROPRIATE TIME FOR ANY PENDING ADDITIONAL VIEWS. TRANSCRIBED BY: ELECTRONICALLY SIGNED BY: Cy Powers MD Normal Not Available Comment on above: Order Comment: Barbi karimi BI US BREAST LIMITED LEFTon 02-09-2024 BI US BREAST LIMITED LEFT This is a summary report. The complete report is available in the patient's medical record. If you cannot access the medical record, please contact the sending organization for a detailed fax or copy. FINDINGS: Sonographic evaluation of the left breast was performed correlation made with the same day mammogram and prior mammograms of November 08, 2019 and October 28, 2019. Shadowing corresponds with the palpable lump which demonstrates benign features on current mammogram. IMPRESSION: BI-RADS 2- Benign . TRANSCRIBED BY: ELECTRONICALLY SIGNED BY: Cy Powers MD Normal Not Available POCT Protime / INRon 024 INR Coag (PPP) [Relative time] 1.3 {INR} Abnormal 0.8 - 1.2 [facility] Interpretation and review of laboratory results [facility]normal [facility] CALCIUMon 11-30-2023 Calcium [Mass/Vol] 9.1 mg/dL Normal 8.5-10.5 [facility] Comment on above: Performed By: #### 1 7861-6, CBCA, 2731-8, FEPR, 78345-6, LIVR, 2132-9, 2284-8, 40322-2, 2276-4 #### [facility] ([id number]) [address] [facility], [address] [place] [address] #### 2998-3, VITASP #### [facility] ([id number]) [address] [place] [address], [place] [address] CBC AND AUTO DIFFon 11-30-19 24 ABSOLUTE BASOPHIL 0.1 X10E9/L Normal 0.0-0.2 [facility] Comment on above: Performed By: #### 1 7861-6, CBCA, 2731-8, FEPR, 01507-5, LIVR, 2132-9, 2284-8, 06650-1, 2276-4 #### [facility] ([id number]) [address], [address] [place] [address] #### 2998-3, VITASP #### [facility] ([id number]) [address] [place] [address] ABSOLUTE NEUTROPHIL 5.7 X10E9/L Normal 1.5-6.6 [facility] Comment on above: Performed By: #### 1 7861-6, CBCA, 2731-8, FEPR, 83564-9, LIVR, 2132-9, 2284-8, 69194-6, 2276-4 #### [facility] ([id number]) [address] [facility], [address] [place] [address] #### 2998-3, VITASP #### [facility] ([id number]) [address] [place] [address] 79763 Basophils/100 WBC (Bld) 0.8 % Normal [facility] Comment on above: Performed By: #### 1 7861-6, CBCA, 2731-8, FEPR, 26104-5, LIVR, 2132-9, 2284-8, 99795-2, 2276-4 #### [facility] ([id number]) [address], [address] [place] [address] #### 2998-3, VITASP #### [facility] ([id number]) [address] [place] [address]117 Eosinophils (Bld) [#/Vol] 0.1 10*3/uL Normal 0.0-0.4 [facility] Comment on above: Performed By: #### 1 7861-6, CBCA, 2731-8, FEPR, 73527-0, LIVR, 2131-9, 2284-8, 29112-7, 2276-4 #### [facility] ([id number]) [address], [address] [place] [address] #### 2998-3, VITASP #### [facility] ([id number]) [address] [place] [address] 05753 Eosinophils/100 WBC (Bld) 1.8 % Normal [facility] Comment on above: Performed By: #### 1 7861-6, CBCA, 2731-8, FEPR, 64959-2, LIVR, 2131-9, 4-8, 09726-8, 2276-4 #### [facility] ([id number]) [address], [address] [place] [address] #### 2998-3, VITASP #### [facility] ([id number]) [address] [place] [address] Erythrocyte distribution width (RBC) [Ratio] 13.9 % Normal 11.5-15.0 [facility] Comment on above: Performed By: #### 1 7861-6, CBCA, 2731-8, FEPR, 13621-7, LIVR, 2131-9, 4-8, 61312-6, 2276-4 #### [facility] ([id number]) [address], [address] [place] [address] #### 2998-3, VITASP #### [facility] ([id number]) [address] [place] [address]38 Hematocrit (Bld) [Volume fraction] 38.2 % Normal 35-47 [facility] Comment on above: Performed By: #### 1 7861-6, CBCA, 2731-8, FEPR, 71236-1, LIVR, 2132-9, 2284-8, 23884-9, 2276-4 #### [facility] ([id number]) [address], [address] [place] [address] #### 2998-3, VITASP #### [facility] ([id number]) [address] [place] [address] 13656 Hemoglobin (Bld) [Mass/Vol] 12.8 g/dL Normal 11.7-15.5 [facility] Comment on above: Performed By: #### 1 7861-6, CBCA, 2731-8, FEPR, 39186-5, LIVR, 2131-9, 4-8, 51729-0, 2276-4 #### [facility] ([id number]) [address], [address] [place] [address] #### 2998-3, VITASP #### [facility] ([id number]) [address] [place] [address]139 Lymphocytes (Bld) [#/Vol] 1.2 10*3/uL Normal 1.0-3.5 [facility] Comment on above: Performed By: #### 1 7861-6, CBCA, 2731-8, FEPR, 41039-9, LIVR, 2131-9, 4-8, 51906-3, 2276-4 #### [facility] ([id number]) [address], [address] [place] [address] #### 2998-3, VITASP #### [facility] ([id number]) [address] [place] [address] 51572 Lymphocytes/100 WBC (Bld) 15.8 % Normal [facility] Comment on above: Performed By: #### 1 7861-6, CBCA, 2731-8, FEPR, 00668-1, LIVR, 2132-9, 2284-8, 25714-2, 2276-4 #### [facility] ([id number]) [address], [address] [place] [address] #### 2998-3, VITASP #### [facility] ([id number]) [address] [place] [address] 46216 MCH (RBC) [Entitic mass] 31.7 pg Normal 27-34 [facility] Comment on above: Performed By: #### 1 7861-6, CBCA, 2731-8, FEPR, 88360-2, LIVR, 2131-9, 2283-8, 86576-1, 2276-4 #### [facility] ([id number]) [address], [address] [place] [address] #### 2998-3, VITASP #### [facility] ([id number]) [address] [place] [address] 90077 MCHC (RBC) [Mass/Vol] 33.4 g/dL Normal 32-36 [facility] Comment on above: Performed By: #### 1 7861-6, CBCA, 2731-8, FEPR, 49292-7, LIVR, 2131-9, 4-8, 43485-1, 2276-4 #### [facility] ([id number]) [address], [address] [place] [address] #### 2998-3, VITASP #### [facility] ([id number]) [address] [place] [address] 82544 MCV (RBC) [Entitic vol] 95 fL Normal 80-100 [facility] Comment on above: Performed By: #### 1 7861-6, CBCA, 2731-8, FEPR, 85739-9, LIVR, 213-9, 2284-8, 35986-2, 2276-4 #### [facility] ([id number]) [address], [address] [place] [address] #### 2998-3, VITASP #### [facility] ([id number]) [address] [place] [address] 93700 Monocytes (Bld) [#/Vol] 0.3 10*3/uL Normal 0-0.9 [facility] Comment on above: Performed By: #### 1 7861-6, CBCA, 2731-8, FEPR, 00837-2, LIVR, 2132-9, 2284-8, 55517-7, 6-4 #### [facility] ([id number]) [address], [address] [place] [address] #### 2998-3, VITASP #### [facility] ([id number]) [address] [place] [address] 93923 Monocytes/100 WBC (Bld) 3.5 % Normal [facility] Comment on above: Performed By: #### 1 7861-6, CBCA, 2731-8, FEPR, 11643-4, LIVR, 2132-9, 2284-8, 63877-1, 2276-4 #### [facility] ([id number]) [address], [address] [place] [address] #### 2998-3, VITASP #### [facility] ([id number]) [address] [place] [address] 36563 Neutrophils/100 WBC (Bld) 78.1 % Normal [facility] Comment on above: Performed By: #### 1 7861-6, CBCA, 2731-8, FEPR, 64741-8, LIVR, 2132-9, 2284-8, 85964-1, 6-4 #### [facility] ([id number]) [address], [address] [place] [address] #### 2998-3, VITASP #### [facility] ([id number]) [address] [place] [address] 04081 Platelet mean volume (Bld) [Entitic vol] 7.6 fL Normal 7-12 [facility] Comment on above: Performed By: #### 1 7861-6, CBCA, 2731-8, FEPR, 87650-0, LIVR, 2132-9, 2284-8, 94142-7, 2276-4 #### [facility] ([id number]) [address], [address] [place] [address] #### 2998-3, VITASP #### [facility] ([id number]) [address] [place] [address] 17871 Platelets (Bld) [#/Vol] 251 10*3/uL Normal 150-450 [facility] Comment on above: Performed By: #### 1 7861-6, CBCA, 2731-8, FEPR, 50646-8, LIVR, 2-9, 2284-8, 79228-8, 2276-4 #### [facility] ([id number]) [address], [address] [place] [address] #### 2998-3, VITASP #### [facility] ([id number]) [address] [place] [address] 60951 RBC COUNT 4.03 X10E12/L Normal 3.80-5.20 [facility] Comment on above: Performed By: #### 1 7861-6, CBCA, 2731-8, FEPR, 08814-4, LIVR, 2132-9, 2284-8, 88682-6, 2276-4 #### [facility] ([id number]) [address], [address] [place] [address] #### 2998-3, VITASP #### [facility] ([id number]) [address] [facility], [place] [address] WBC (Bld) [#/Vol] 7.3 10*3/uL Normal 4.0-11.0 [facility] Comment on above: Performed By: #### 1 7861-6, CBCA, 2731-8, FEPR, 58898-5, LIVR, 2131-9, 2284-8, 59842-8, 2276-4 #### [facility] ([id number]) [address] [place] [address], [address] [place] [address] #### 2998-3, VITASP #### [facility] ([id number]) [address] [place] [address] 90737 Copper [Mass/Vol]on 11-30-19 24 COPPER 81 ug/dL Normal 80-155 [facility] Comment on above: Result Comment: NOTE This test was developed and its performance characteristics determined by [facility] [place] ([facility] It has not been cleared or approved by the FDA. -[facility] is regulated under CLIA as qualified to perform high-complexity testing. This test is used for clinical purposes. It should not be regarded as investigational or for research. Test Performed By: [facility] [address] [place] [address] Agricultural Technical Officer: Maxime Weston III, M.D. CLIA #[id number] Performed By: #### C BC, CMP #### [facility] ([id number]) [address] [place] [address], [address] [place] [address] FERRITINon 11-30-2023 Ferritin [Mass/Vol] 56 ng/mL Normal 11-307 [facility] Comment on above: Performed By: #### 1 7861-6, CBCA, 2731-8, FEPR, 45459-2, LIVR, 2132-9, 2284-8, 07315-4, 2276-4 #### [facility] ([id number]) [address], [address] [place] [address] #### 2998-3, VITASP #### [facility] ([id number]) [address] [place] [address] 07387 Folate [Mass/Vol]on 11-30-19 24 FOLIC ACID 12.1 ng/mL Normal >5.8 [facility] Comment on above: Result Comment: NEW REFERENCE RANGE Performed By: #### 1 7861-6, CBCA, 2731-8, FEPR, 79779-9, LIVR, 2132-9, 2284-8, 35723-8, 2276-4 #### [facility] ([id number]) [address], [address] [place] [address] #### 2998-3, VITASP #### [facility] ([id number]) [address] [place] [address] 33239 IRON PROFILEon 11-30-2023 Iron [Mass/Vol] 100 ug/dL Normal 50-170 [facility] Comment on above: Performed By: #### 1 7861-6, CBCA, 2731-8, FEPR, 54893-8, LIVR, 2132-9, 2284-8, 52727-6, 2276-4 #### [facility] ([id number]) [address], [address] [place] [address] #### 2998-3, VITASP #### [facility] ([id number]) [address] [place] [address] 51411 IRON BINDING 340 ug/dL Normal 250-425 [facility] Comment on above: Performed By: #### 1 7861-6, CBCA, 2731-8, FEPR, 32101-1, LIVR, 2132-9, 2284-8, 31130-5, 2276-4 #### [facility] ([id number]) [address], [address] [place] [address] #### 2998-3, VITASP #### [facility] ([id number]) [address] [place] [address] IRON SATURATION 29 % SATURATION Normal 15-50 [facility] Comment on above: Performed By: #### 1 7861-6, CBCA, 2731-8, FEPR, 51475-8, LIVR, 2132-9, 2284-8, 63039-4, 2276-4 #### [facility] ([id number]) [address], [address] [place] [address] #### 2998-3, VITASP #### [facility] ([id number]) [address] [place] [address] 36198 LIVER PANELon 11-30-2023 Albumin [Mass/Vol] 4.0 g/dL Normal 3.2-5.3 [facility] Comment on above: Performed By: #### C BC, CMP #### [facility] ([id number]) [address], [address] [place] [address] ALP [Catalytic activity/Vol] 73 U/L Normal 39-130 [facility] Comment on above: Performed By: #### Sara BC, CMP #### [facility] ([id number]) [address], [address] [place] [address] ALT [Catalytic activity/Vol] 15 U/L Normal 0-31 [facility] Comment on above: Performed By: #### C BC, CMP #### [facility] ([id number]) [address], [address] [place] [address] AST [Catalytic activity/Vol] 15 U/L Normal 0-41 [facility] Comment on above: Performed By: #### C BC, CMP #### [facility] ([id number]) [address], [address] [place] [address] Bilirubin [Mass/Vol] 0.6 mg/dL Normal 0.3-1.2 [facility] Comment on above: Performed By: #### C BC, CMP #### [facility] ([id number]) [address], [address] [place] [address] Bilirubin.direct [Mass/Vol] 0.2 mg/dL Normal 0.0-0.4 [facility] Comment on above: Performed By: #### C BC, CMP #### [facility] ([id number]) [address], [address] [place] [address] Protein [Mass/Vol] 6.7 g/dL Normal 6.0-8.0 [facility] Comment on above: Performed By: #### Sara MONACO, CMP #### [facility] ([id number]) [address], [address] [place] [address] Lipid 1996 panelon 4 Cholesterol [Mass/Vol] 142 mg/dL Low 150-200 [facility] Comment on above: Performed By: #### 1 7861-6, CBCA, 2731-8, FEPR, 69698-7, LIVR, 2132-9, 2284-8, 45389-7, 2276-4 #### [facility] ([id number]) [address], [address] [place] [address] #### 2998-3, VITASP #### [facility] ([id number]) [address] [place] [address] Cholesterol in HDL [Mass/Vol] 75 mg/dL Normal >39 [facility] Comment on above: Result Comment: HDL <40 mg/dL - High Risk HDL > or = 40mg/dL- Desirable HDL >60 mg/dL - Negative Risk Performed By: #### 1 7861-6, CBCA, 2731-8, FEPR, 66939-0, LIVR, 2132-9, 2284-8, 71144-2, 2276-4 #### [facility] ([id number]) [address] [place] [address], [address] [place] [address] #### 2998-3, VITASP #### [facility] ([id number]) [address] [place] [address] 66497 Cholesterol in LDL [Mass/Vol] 42 mg/dL Normal <130 [facility] Comment on above: Result Comment: LDL <100 mg/dL - Desirable LDL >160 mg/dL - High Risk Performed By: #### 1 7861-6, CBCA, 2731-8, FEPR, 28698-5, LIVR, 2132-9, 2284-8, 49481-8, 2276-4 #### [facility] ([id number]) [address] [place] [address], [address] [place] [address] #### 2998-3, VITASP #### [facility] ([id number]) [address] [place] [address]378 Cholesterol in VLDL [Mass/Vol] 25 mg/dL Normal 0-30 [facility] Comment on above: Performed By: #### 1 7861-6, CBCA, 2731-8, FEPR, 86318-0, LIVR, 2132-9, 2284-8, 65193-1, 2276-4 #### [facility] ([id number]) [address] [place] [address], [address] [place] [address] #### 2998-3, VITASP #### [facility] ([id number]) [address] [place] [address] 989[address] CHOLESTEROL:HDL 1.9 Normal 1.0-5.0 [facility] Comment on above: Performed By: #### 1 7861-6, CBCA, 2731-8, FEPR, 61318-2, LIVR, 2132-9, 2284-8, 25698-2, 2276-4 #### [facility] ([id number]) [address], [address] [place] [address] #### 2998-3, VITASP #### [facility] ([id number]) [address] [place] [address] 11230 Triglyceride [Mass/Vol] 127 mg/dL Normal 27-150 [facility] Comment on above: Performed By: #### 1 7861-6, CBCA, 2731-8, FEPR, 86464-3, LIVR, 2132-9, 2284-8, 00066-4, 2276-4 #### [facility] ([id number]) [address], [address] [place] [address] #### 2998-3, VITASP #### [facility] ([id number]) [address] [place] [address]247 Parathyrin.intact [Mass/Vol] on 11-30-2023 PTH INTACT 117 pg/mL High 12-88 [facility] Comment on above: Performed By: #### C BC, CMP #### [facility] ([id number]) [address], [address] [place] [address] Thiamine (Bld) [Mass/Vol]on 11-30-2023 THIAMIN VITAMIN B1 See Below Normal [facility] Comment on above: Result Comment: NOTE TEST RESULT FLAG UNIT REF.RANGE ---- Vitamin B1 (TDP), Whole Blood 118.3 nmol/L 84.3-213.3 This assay measures the concentration of thiamine diphosphate (TDP), the primary active form of vitamin B1. Approximately 90 percent of vitamin B1 present in whole blood is TDP. Thiamine and thiamine monophosphate, which comprise the remaining 10 percent, are not measured. This test was developed and its performance characteristics determined by [facility]'s [facility] [place] ([facility]). It has not been cleared or approved by the FDA. [facility] is regulated under CLIA as qualified to perform high-complexity testing. This test is used for clinical purposes. It should not be regarded as investigational or for research. Test Performed By: [place] [address] Agricultural Technical Officer: Maxime Weston III, M.D. CLIA #[id number] Performed By: #### C JACINDA, CMP #### [facility] ([id number]) [address], [address] [place] [address] VITAMIN A(RETINOL)on 024 RETINYL PALMITATE 0.03 mg/L Normal 0.00-0.10 [facility] Comment on above: Performed By: #### Sara MONACO, CMP #### [facility] ([id number]) [address], [address] [place] [address] VIT A,SER/PL INTERP NORMAL Normal [facility] Comment on above: Result Comment: NOTE This test was developed and its performance characteristics determined by [facility]. It has not been cleared or approved by the [place] Food and Drug Administration. This test was performed in a CLIA certified laboratory and is intended for clinical purposes. Performed By: [facility] [address] [place] [address] Agricultural Technical Officer: Jordin Henriquez MD, PhD CLIA Number: [id number] Performed By: #### C JACINDA, CMP #### [facility] ([id number]) [address], [address] [place] [address] VITAMIN A(RETINOL) 0.87 mg/L Normal 0.30-1.20 [facility] Comment on above: Performed By: #### C BC, CMP #### [facility] ([id number]) [address] [place] [address], [address] [place] [address] VITAMIN B12on 11-30-2023 Cobalamin (Vitamin B12) [Mass/Vol] pg/mL High 180-914 [facility] Comment on above: Performed By: #### 1 7861-6, CBCA, 2731-8, FEPR, 78501-8, LIVR, 2132-9, 2284-8, 79799-2, 2276-4 #### [facility] ([id number]) [address] [place] [address], [address] [place] [address] #### 2998-3, VITASP #### [facility] ([id number]) [address] [place] [address], [place] [address] Vitamin D+Metabolites [Mass/ Vol]on 11-30-2023 VITAMIN D 25 HYD TOT 48.9 ng/mL Normal 30-100 [facility] Comment on above: Result Comment: Vitamin D status 25 [place] Vitamin D Deficiency <20 ng/mL Insufficiency 20-29 ng/mL Sufficiency 30-100 ng/mL Toxicity >100 ng/mL NOTE: A pediatric reference range has not been established by the acid strength inspector of this kit. The [place] [employer] recommends a Vitamin D level of = or >20ng/mL in infants and children. Performed By: #### C BC, CMP #### [facility] ([id number]) [address] [place] [address], [address] [place] [address] Zinc [Mass/Vol]on 11-30-2023 ZINC 106 ug/dL Normal 60-120 [facility] Comment on above: Result Comment: NOTE This test was developed and its performance characteristics determined by [facility] [place] ([facility]). It has not been cleared or approved by the FDA. [facility] is regulated under CLIA as qualified to perform high-complexity testing. This test is used for clinical purposes. It should not be regarded as investigational or for research. Test Performed By: [place] [address] Agricultural Technical Officer: Maxime Weston III, M.D. CLIA #[id number] Performed By: #### C JACINDA, CMP #### [facility] ([id number]) [address] [place] [address], [address] [place] [address] Follow-Upon 11-17-2023 Follow-Up [id number] Keila Garcia 1955 F Date Provider Department Center 11/17/2023 GREG PATEL [facility] CARD [facility] No family history on file Level of Service:36517 [place] OFFICE/OUTPATIENT ESTABLISHED LOW [facility] 20 MIN Reason for Visit and Comments: Follow-up [870096] Normal [facility] POCT Protime / INRon 11-12- 024 INR Coag (PPP) [Relative time] 1.8 {INR} Abnormal 0.8 - 1.2 [facility] Interpretation and review of laboratory results [facility]normal [facility] POCT Protime / INRon 10-02- 024 INR Coag (PPP) [Relative time] 2.2 {INR} Abnormal 0.8 - 1.2 [facility] Interpretation and review of laboratory results Abnormal [facility] COMPLETE BLOOD COUNTon 09-25 Erythrocyte distribution width (RBC) [Ratio] 14.2 % Normal 11.5-15.0 [facility] Comment on above: Performed By: #### C JACINDA, CMP #### [facility] ([id number]) [address] [place] [address], [address] [place] [address] Hematocrit (Bld) [Volume fraction] 38.3 % Normal 35-47 [facility] Comment on above: Performed By: #### C BC, CMP #### [facility] ([id number]) [address], [address] [place] [address] Hemoglobin (Bld) [Mass/Vol] 12.5 g/dL Normal 11.7-15.5 [facility] Comment on above: Performed By: #### Sara MONACO, CMP #### [facility] ([id number]) [address], [address] [place] [address] MCH (RBC) [Entitic mass] 31.1 pg Normal 27-34 [facility] Comment on above: Performed By: #### Sara MONACO, CMP #### [facility] ([id number]) [address], [address] [place] [address] MCHC (RBC) [Mass/Vol] 32.7 g/dL Normal 32-36 [facility] [facility] Comment on above: Performed By: #### Sara MONACO, CMP #### [facility] ([id number]) [address], [address] [place] [address] MCV (RBC) [Entitic vol] 95 fL Normal 80-100 [facility] Comment on above: Performed By: #### Sara MONACO, CMP #### [facility] ([id number]) [address], [address] [place] [address] Platelet mean volume (Bld) [Entitic vol] 7.5 fL Normal 7-12 [facility] Comment on above: Performed By: #### Sara MONACO, CMP #### [facility] ([id number]) [address] [address] [place] [address] Platelets (Bld) [#/Vol] 287 10*3/uL Normal 150-450 [facility] Comment on above: Performed By: #### C BC, CMP #### [facility] ([id number]) [address], [address] [place] [address] RBC COUNT 4.03 X10E12/L Normal 3.80-5.20 [facility] Comment on above: Performed By: #### C JACINDA, CMP #### [facility] ([id number]) [address], [address] [place] [address] WBC (Bld) [#/Vol] 11.2 10*3/uL High 4.0-11.0 [facility] Comment on above: Performed By: #### C JACINDA, CMP #### [facility] ([id number]) [address], [address] [place] [address] COMPREHENSIVE METABOLIC PANE Byron 09-25-2023 Albumin [Mass/Vol] 4.2 g/dL Normal 3.2-5.3 [facility] Comment on above: Performed By: #### C JACINDA, CMP #### [facility] ([id number]) [address], [address] [place] [address] ALP [Catalytic activity/Vol] 67 U/L Normal 39-130 [facility] Comment on above: Performed By: #### C JACINDA, CMP #### [facility] ([id number]) [address] [place] [address] ALT [Catalytic activity/Vol] 9 U/L Normal 0-31 [facility] Comment on above: Performed By: #### Sara MONACO, CMP #### [facility] ([id number]) [address] [place] [address] Anion gap [Moles/Vol] 12 mmol/L Normal 5-15 [facility] Comment on above: Performed By: #### C JACINDA, CMP #### [facility] ([id number]) [address], [address] [place] [address] AST [Catalytic activity/Vol] 14 U/L Normal 0-41 [facility] Comment on above: Performed By: #### C BC, CMP #### [facility] ([id number]) [address] [place] [address] Bilirubin [Mass/Vol] 0.6 mg/dL Normal 0.3-1.2 [facility] Comment on above: Performed By: #### C JACINDA, CMP #### [facility] ([id number]) [address] [address] [place] [address] Calcium [Mass/Vol] 9.1 mg/dL Normal 8.5-10.5 [facility] Comment on above: Performed By: #### C JACINDA, CMP #### [facility] ([id number]) [address] [address] [place] [address] Chloride [Moles/Vol] 103 mmol/L Normal 98-109 [facility] Comment on above: Performed By: #### Sara MONACO, CMP #### [facility] ([id number]) [address] [address] [place] [address] CO2 [Moles/Vol] 23 mmol/L Normal 22-32 [facility] Comment on above: Performed By: #### Sara MONACO, CMP #### [facility] ([id number]) [address] [address] [place] [address] Creatinine [Mass/Vol] 1.67 mg/dL High 0.40-1.00 [facility] Comment on above: Result Comment: METH OD TRACEABLE TO IDMS STANDARD Performed By: #### C JACINDA, CMP #### [facility] ([id number]) [address] [address] [place] [address] GFR/1.73 sq M.predicted among non-blacks MDRD (S/P/Bld) [Vol rate/Area] 33 mL/min/{1.73_m2} Low >59 [facility] Comment on above: Result Comment: Reported eGFR is based on the CKD-EPI 2020 equation that does not use a race coefficient. Performed By: #### C JACINDA, CMP #### [facility] ([id number]) [address] [address] [place] [address] Glucose [Mass/Vol] 85 mg/dL Normal 65-99 [facility] Comment on above: Performed By: #### C BC, CMP #### [facility] ([id number]) [address] [place] [address] Potassium [Moles/Vol] 3.5 mmol/L Normal 3.5-5.0 [facility] Comment on above: Performed By: #### C BC, CMP #### [facility] ([id number]) [address] [place] [address] Protein [Mass/Vol] 6.8 g/dL Normal 6.0-8.0 [facility] Comment on above: Performed By: #### C BC, CMP #### [facility] ([id number]) [address] [place] [address] Sodium [Moles/Vol] 138 mmol/L Normal 134-146 [facility] Comment on above: Performed By: #### C BC, CMP #### [facility] ([id number]) [address] [place] [address] Urea nitrogen [Mass/Vol] 30 mg/dL High 5-27 [facility] Comment on above: Performed By: #### C BC, CMP #### [facility] ([id number]) [address] [place] [address] MICROALBUMIN - ALBUMIN:CREAT ININE URINE RATIOon 09-25-2023 ALB/CREAT RATIO 198.7 mg/g creat High 0.0-30.0 [facility] Comment on above: Performed By: #### M ALBU #### [facility] ([id number]) [address] [place] [address] Albumin DL <= 20 mg/L (U) [Mass/Vol] 10.4 mg/dL High 0.0-1.9 [facility] Comment on above: Performed By: #### M ALBU #### [facility] ([id number]) [address] [place] [address] URINE CREAT 52.33 mg/dL Normal [facility] Comment on above: Performed By: #### M ALBU #### [facility] ([id number]) [address] [place] [address] HPon 07-29-2023 HP -- Attestation signed by Dimas Londono MD at 07/31/2023 1:14 PM I personally saw and examined the patient on the same date of service as resident/fellow Meghna Baeza. I discussed the findings and therapeutic plan with the resident/fellow Meghna Baeza. I agree with the documentation, except for any edits/updates below. Teaching Physician's Revisions: as above Keila Garcia is a 67 y.o. female we follow in the cardiac clinic at the [facility] for paroxysmal atrial fibrillation, hypertension. She has history of CKD3, YUNG, She is here today for tilt table test. She was recently evaluated September 2022 at the [facility] for dizziness and fall. patient experiencing multiple falls, dizziness and vertigo falling onto a bed and hitting her head. She also fell on her left left hip was found to have a subtherapeutic INR and a hematoma of the left hip. She is on Coumadin. She was found to be anemic. Hemoglobin 7.6. Creatinine 1.65 INR 1.1 BNP is 103 CRP 2.319 she was also evaluated by neurology. The discharge diagnosis was dizziness and fall symptomatic likely due to anemia and blood loss. Vertigo. Parroxysmal atrial fibrillation on anticoagulation with Coumadin. Stage IIIb chronic kidney disease. Iron deficiency anemia. Chronic obstructive sleep apnea. Obesity with BMI of 32.86. And previous left thigh hematoma. She also has a history of gastric bypass. She received one RBC infusion in the hospital Review of Systems HENT: Negative for nosebleeds. Cardiovascular: Positive for irregular heartbeat. Negative for palpitations and syncope. Rare heart racing or irregular beats. Not significant. Musculoskeletal: Positive for falls. Falls without warning. No syncope or LOC. Has seen several neurologists. White matter lesions but no MS I stand and then fall. No dizziness. No prodrome. No loc. Once every 6months or so. August -September 2022 5 falls, NO episodes since. Gastrointestinal: Negative for hematemesis and hematochezia. Neurological: Negative for dizziness, light-headedness and loss of balance. Objective Vitals reviewed. Constitutional: Appearance: Healthy appearance. Not in distress. Neck: Vascular: No JVR. JVD normal. Pulmonary: Effort: Pulmonary effort is normal. Breath sounds: Normal breath sounds. No wheezing. No rhonchi. No rales. Chest: Chest wall: Not tender to palpatation. Cardiovascular: PMI at left midclavicular line. Normal rate. Regular rhythm. Normal S1. Normal S2. Murmurs: There is no murmur. No gallop. No click. No rub. Pulses: Intact distal pulses. Edema: Peripheral edema absent. Abdominal: General: Bowel sounds are normal. Palpations: Abdomen is soft. Tenderness: There is no abdominal tenderness. Musculoskeletal: Normal range of motion. General: No tenderness. Skin: General: Skin is warm and dry. Neurological: General: No focal deficit present. Mental Status: Alert and oriented to person, place and time. [facility] lexiscan stress 2020: Negative perfusion stress test for ischemia, Normal myocardial perfusion with soft tissue artifact, Normal global left ventricular function, No transient ischemia dilatation and No ischemic ECG changes were seen Echo complete W/O contrast [facility] 2022 Order: [id number] Narrative Left Ventricle: Systolic function is normal with an ejection fraction of 60-65%. No significant valvular stenosis or regurgitation. Left Ventricle Left ventricle appears normal in size. Wall thickness is normal. Systolic function is normal with an ejection fraction of 60-65%. No segmental wall motion abnormalities. Normal diastolic function is present. Right Ventricle Right ventricular size is borderline dilated. Systolic function is normal. Left Atrium Left atrium is normal in size. Right Atrium Right atrium is normal in size. IVC/SVC IVC appears normal. Mitral Valve Mitral valve structure is normal. There is trace regurgitation. There is no evidence of mitral valve stenosis. Tricuspid Valve Tricuspid valve appears to be normal. There is trace regurgitation. There is no evidence of tricuspid valve stenosis. Aortic Valve The aortic valve is trileaflet. There is trace regurgitation. There is no evidence of aortic valve stenosis. Pulmonic Valve Pulmonic valve structure is grossly normal. There is no regurgitation or stenosis. Ascending Aorta The aortic root is normal in size. Pericardium There is no pericardial effusion. Lab Review: 11/17/2022 Order: [id number] Ref Range & Units 2 d ago Cholesterol 150 - 200 mg/dL 303 High Triglycerides 27 - 150 mg/dL 264 High HDL Cholesterol >39 mg/dL 84 Comment: HDL <40 mg/dL - High Risk HDL > or = 40mg/dL- Desirable HDL >60 mg/dL - Negative (more content not included)... Normal [facility] Orders Onlyon 07-28-2023 Orders Only [id number] Keila Garcia 1955 F Date Provider Department Center 07/28/2023 [facility] No family history on file Normal [facility] Covid-19 Ambulatoryon 2019 SARS-CoV-2, KIM Not Detected Not Detected [facility] [place] Comment on above: (NOTE) This nucleic acid amplification test was developed and its performance characteristics determined by [email or web address]. Nucleic acid amplification tests include PCR and TMA. This test has not been FDA cleared or approved. This test has been authorized by FDA under an Emergency Use Authorization (EUA). This test is only authorized for the duration of time the declaration that circumstances exist justifying the authorization of the emergency use of in vitro diagnostic tests for detection of SARS-CoV-2 virus and/or diagnosis of COVID-19 infection under section 564(b)(1) of the Act, 21 U.S.C. 360bbb-3(b) (1), unless the authorization is terminated or revoked sooner. When diagnostic testing is negative, the possibility of a false negative result should be considered in the context of a patient's recent exposures and the presence of clinical signs and symptoms consistent with COVID-19. An individual without symptoms of COVID- 19 and who is not shedding SARS-CoV-2 virus would expect to have a negative (not detected) result in this assay. Performed At: [facility] [address] [facility][1] [place] [id number] Jeff Multani MD Ph:[phone] [id number] 08-05-2020 SARS-CoV-2 Not Detected Normal Not Detected [facility] Comment on above: Result Comment: (NOT E) This nucleic acid amplification test was developed and its performance characteristics determined by [email or web address]. Nucleic acid amplification tests include PCR and TMA. This test has not been FDA cleared or approved. This test has been authorized by FDA under an Emergency Use Authorization (EUA). This test is only authorized for the duration of time the declaration that circumstances exist justifying the authorization of the emergency use of in vitro diagnostic tests for detection of SARS-CoV-2 virus and/or diagnosis of COVID-19 infection under section 564(b)(1) of the Act, 21 U.S.C. 360bbb-3(b) (1), unless the authorization is terminated or revoked sooner. When diagnostic testing is negative, the possibility of a false negative result should be considered in the context of a patient's recent exposures and the presence of clinical signs and symptoms consistent with COVID-19. An individual without symptoms of COVID- 19 and who is not shedding SARS-CoV-2 virus would expect to have a negative (not detected) result in this assay. Performed At: [facility] [address] [facility][1] [place] [id number] Jeff Multani MD Ph:[phone] Performed By: #### A COV #### [facility] [address] [place] [id number] [employer] Journeyman: Nate Mckee MD Rehab Psych Evaluationon Rehab Psych Evaluation MR#: [id number] REHABILITATION SERVICES ( ) INPATIENT (x) OUTPATIENT Patient Name: Keila Garcia Date of : 1955 Referring Physician: Javan Julien M.D. 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 Keila Garcia, a 62-year-old, right-handed, White, woman, who was referred by neurologist, Dr. Javan Julien, to ascertain her present neurocognitive status in the context of white matter signal abnormalities. Mrs. Garcia expresses desire to understand what, if any, impacts said lesions have had on her cognitive functioning. She is referred with Other Amnesia. HISTORY OF PRESENTING PROBLEM: Mrs. Garcia presents to the current evaluation on time and unaccompanied. She was believed to be an accurate historian. A clinic note from Dr. Julien dated 05/13/2018 was also consulted. According to that record, Dr. Julien indicated that a recent MRI revealed interval worsening of the deep and periventricular white matter signal abnormalities, some of them is pre-peripendular and pericallosal in distribution favoring demyelinating plaques related to multiple sclerosis over chronic microvascular ischemic disease. Presently, Mrs. Garcia reports being recently evaluated at [facility] and was apparently informed that her pattern of lesions was inconsistent with multiple sclerosis. With regard to functioning, she notes difficulties with balance and ambulation, in addition to cognitive changes such as slowed processing speed and word-finding difficulties. CURRENT MEDICATIONS: Mrs. Garcia provided a list of her current medications and they are as follows: Aspirin, acetaminophen, duloxetine, fluoxetine, magnesium, metoprolol, topiramate, warfarin, and tizanidine. PAST MEDICAL HISTORY: Mrs. Garcia indicates history of atrial fibrillation, lymphedema, kidney disease, headaches, and difficulties with balance. According to Dr. Julien's clinic note, Mrs. Garcia's medical history is also significant for the following: Arthritis, asthma, bladder disease, hyperlipidemia, hypertension, and iron deficiency. Mrs. Garcia reports no history of loss of consciousness or seizure disorder. She also indicates her developmental history was unremarkable. PAST SURGICAL HISTORY: Mrs. Garcia reports the following surgeries: Tonsillectomy, hysterectomy cholecystectomy, bilateral knee replacement, repair of a septal deviation/nasal turbinate, and a gastric sleeve surgery. PSYCHIATRIC HISTORY: Mrs. Garcia reports a long-standing history of anxiety. She reports initially experiencing anxiety 25 years ago. She reports her family physician, Dr. Mary Boateng, prescribes her psychiatric medications. Mrs. Garcia also reports being informed by the clinician who performed her presurgical evaluation (gastric sleeve) that she would likely benefit from psychiatric treatment for anxiety. However, she indicates she has yet to follow up on this recommendation. Mrs. Garcia reports no history of suicidal or homicidal ideation. SUBSTANCE USE: Mrs. Garcia reports infrequent alcohol use and no history of heavy alcohol consumption. She reports no history of illicit substance use or history of tobacco use. FAMILY MEDICAL HISTORY: Mrs. Garcia reports she is adopted and knows little about her biological parents. However, she indicates her mother's cause of was breast cancer. She also reports arterial sclerosis runs on her mother's family. She reports she is unaware of her father's medical history. SOCIAL HISTORY: Mrs. Garcia reports she was born in [place], [place] and raised in [place], where she presently resides with her . Mrs. Garcia reports she has been to her for approximately two years (together for 40 years); she reports having no children. EDUCATIONAL HISTORY: Mrs. Garcia reports she graduated from high school and completed one year of college at the [employer], where she studied education. She reports no history of special education, learning disability, or grade retention. For the purposes of this evaluation, she was credited with 13 years of education. VOCATIONAL HISTORY: Mrs. Garcia reports she presently receives social security disability benefits secondary to physical disability and anxiety; she has been receiving benefits for five years. 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 CURRENT FUNCTIONING: Behavioral: Mrs. Garcia reports her sleep is better over the past two months and cites weight loss (approximately 40 pounds) as the reason for the improvement. She does however report racing thoughts that cause slowed sleep onset. With regard to interest, she reports enjoying learning about her ancestry. She reports she used to enjoy singing, cooking, and sewing, but indicates difficulties related to physical limitations. Emotional: When asked to describe her present mood, Mrs. Garcia indicates she is easily wrapped up in negative thoughts, but is trying to be more positive. She notes she frequently feels overwhelmed, but notes she is future focused . She also reports significant stress related to providing care for her , who has been recently diagnosed with Parkinson's disease and is also blind. Cognitive: Mrs. Garcia reports slowed speed of processing and word-finding difficulties over the past two years. She reports her difficulties have worsened progressively. Physical: Mrs. Garcia reports her last fall was in January. She adds she now uses a walker or a cane to help prevent falls. She reports daily back pain that she rated at a 3/10 with 10 being the worst pain. Mrs. Garcia reports no changes to hearing or vision. Activities of Daily Living: Mrs. Garcia reports no difficulties completing activities of daily living such as dressing, bathing, eating, or toileting. She reports no difficulties managing her finances or remembering to take medications. She notes she is able to complete household duties and chores, but cites exhaustion that slows her down significantly. She is presently driving and has not incurred any accidents or near accidents. FINDINGS: Behavior: Mrs. Garcia was of average height and above average weight. She was appropriately dressed and groomed for this evaluation. Ambulation was slow and she used a walker. She had difficulty getting up from a seated position. Sensory and motor coordination were generally unremarkable. Rapport was believed to be easily established. She was mildly anxious, but affect was full range. Speech was normal with regard to rate, rhythm, and prosody. She was mildly impulsive when responding during testing. No word finding difficulties were observed and auditory comprehension was intact. Overall, she was cooperative and motivated throughout the testing and embedded measures of performance validity used to evaluate testing engagement/effort suggested results are valid. Consequently, the results of this evaluation are believed to accurately reflect her current neurocognitive status. Vision: Near-point visual acuity was estimated at 20/25 with corrective lenses. Motor: Fine motor dexterity was in the average range when using her dominant right hand, and in the low average range when using her nondominant left hand. Intellectual Functioning: Mrs. Garcia was administered the WAIS-IV and obtained a Full Scale IQ in the high average range (JKCO=025). She was also administered a reading recognition task designed to estimate premorbid intellectual abilities; performance was in the average range and no attenuation of intellectual abilities is identified. The remainder of obtained index scores are as follows: Verbal Comprehension Index was in the superior range (RGC=208); Perceptual Reasoning Index was in the average range (PVK=814); Working Memory Index was in the average range (TLB=866); Processing Speed Index was in the high average range (QZN=645). Visual Perception: Abilities in this domain are intact. Performance on a task of visuoconstruction, in which she was to construct blocks to match a pictured item, was in the average range. Performance on a task of visual analysis and synthesis was also in the average range. Mrs. Garcia displayed a significant strength on a task of visual integration, in which she was to put together mental puzzles, and performance was in the very superior range. Together these scores combined to yield a Perceptual Reasoning Index in the average range (PKL=069). Speech and Language: Abilities in this domain are a substantial strength for Mrs. Garcia, despite her self-report of word finding difficulty in free conversation. Tasks of expressive language are intact. Performance on a task of verbal abstract reasoning, in which she was to indicate how two seemingly unrelated items were alike or similar, was in the high average range. Performance on a task measuring oral vocabulary was in the very superior range, while performance on a task measuring general fund of information was in the high average range. Together these scores combined to yield a Verbal Comprehension Index in the superior range (IPH=893). Mrs. Garcia was also administered tasks of speech fluency. Performance on a task of phonemic fluency was in the average range and performance on a task of categorical fluency was in the high average range. Attention: Abilities in this domain are intact. Performance on a task of immediate auditory attention, in which she was to recite digits forward, backward, and in sequential order, was in the high average range. Performance on a task of mental arithmetic and working memory was in the average range. Together these scores combined to yield a Working Memory Index in the average range (NQO=412). Memory: Abilities in this domain are intact and a significant strength for Mrs. Garcia. Performance on a list learning task was in the superior range for learning across trials. Immediate recall was in the average range and delayed recall was in the superior range; recognition was average. Performance on a task of story memory was in the superior range for immediate and delayed recall. Recognition was in the high average range. Performance on a task of visual memory was in the high average range for immediate recall and in the superior range for delayed recall. Recognition was high average. Story and visual memory scores were combined to yield an Immediate Memory Index in the superior range (CCD=715) and a Delayed Memory Index in the very superior range (AMP=493). No attenuation of memory abilities is identified. Speed of Information Processing: Abilities in this domain are intact and consistent with IQ functioning, despite her self-perception of slower speed of processing. Performance on a task of visual search and symbol matching was in the high average range. Performance on a more complex task involving symbol substitution was in the high average range. Together these scores combined to yield a Processing Speed Index in the high average range (NRD=511). Higher Cognitive Functioning: Abilities in this domain are intact and consistent with IQ functioning. Performance on a task of motor speed sequencing was in the high average range. Performance on a more complex motor sequencing task involving set-shifting and cognitive flexibility was in the superior range. Affective Functioning: Mrs. Garcia was administered the [place] Multiphasic Personality Ibdflcwim-9-PU (MMPI-2-RF). Evaluation of the validity scales raises concern about the possibility of over-reporting. Specifically, she was noted to endorse a larger than average number of physical symptoms than even individuals with severe, chronic medical conditions endorse. With caution noted, Mrs. Garcia endorsed noteworthy somatic and neurologic complaints. Overall, this performance is suggestive of a heightened experience of physiological changes in response to psychological distress (somatoform tendency). TEST DATA: WAIS-IV (scaled scores): SI=13, VC=16, IN=13, BD=10, MA=9, STOPBOARD ASSEMBLER=16, DS=12, AR=10, SS=14, CD=12 PWEX=540 Pegs: Dominant=72 seconds; non-dominant=86 seconds TMT: A=20 second; B=42 seconds Phonemic=42 Categorical=26 WMS-IV (scaled scores): LM I=15, LM II=15, VR I=12, VR II=16 RAVLT: Total=55, Immediate=10, Delayed=13, Recognition=14 MMPI-2-RF: AMBAR=80, THD=57, BXD=46, FSB=73 IMPRESSIONS: 1. Mrs. Garcia is a 62-year-old, right-handed woman who was referred for this evaluation to ascertain her present neurocognitive status in the context of recently identified white matter lesions ( demyelinating plaques related to multiple sclerosis over chronic microvascular ischemic disease ); she indicates a recent evaluation at [facility] ruled out MS. Mrs. Garcia expressed interest in understanding potential cognitive weaknesses associated with said lesions. She is referred with Other Amnesia. 2. Results of this evaluation are valid and no impairment is identified. Intellectual functioning in the high average range and the majority of intellectual scores are consistent. With regard to additional tasks of cognitive functioning, tasks of memory are a substantial strength for Mrs. Garcia. Specifically, delayed performance on each memory task was in the superior range. Tasks of speed of processing were also a noteworthy strength (high average) for Mrs. Garcia, which argues against a diagnosis of MS. Mrs. Garcia reports difficulties with word finding. However, we observed no such difficulty, and her language abilities are a substantial strength (superior range). Consequently, Mrs. Sousas subjective cognitive complaints are likely non-neurological in nature and include variables such as, poor sleep, pain, and affective distress. Finally, although specific white matter lesions have been identified on MRI, we have no evidence to suggest said lesions have impacted Mrs. Garcia's cognitive functioning. 3. With regard to Mrs. Garcia's behavior, she was polite and pleasant throughout. Effort was excellent. 4. With regard to Mrs. Garcia's emotional functioning, her self-report on a questionnaire asking about affective distress was difficult to interpret due to significant over emphasis of symptoms. She endorsed noteworthy cognitive and somatic symptoms and her response profile is consistent with somatoform tendency (a tendency to experience heightened physiological/cognitiv e symptoms in response to psychological stress). RECOMMENDATIONS: 1. Continue medications as prescribed. 2. We encourage Mrs. Garcia to pursue counseling serves to help learn healthy ways to cope with low mood and stress. It is important for clinicians working with Mrs. Garcia's to recognize that she may experience increases in physiological distress, as a result of increasing emotional turmoil. 3. We suggest Mrs. Garcia read the following books: Say Jeana to Insomnia by Vi; The Depression Cure by Bonilla; On the Tip of My Tongue by Marlena Edge ; and, Feeling Better: A 6-week Mind-Body Program to Ease your Chronic Symptoms by Oscar Hurst 4. With regard to word-finding difficulties, the following strategies are provided: a) Delay: Just give it a second or two. With a bit of extra time, the word may pop out on its own. Be patient with yourself, and ask your partner to give you time. b) Describe: Give the listener information about what the thing looks like or does. Any extra information can help them know what you're talking about. It may even help you to say the word c) Association: See if you can think of something related. Even if it's not quite right, it may prompt the word or convey the meaning. Do you have any ah my they're not knives, but like that? d) Synonyms: Think of a word that means the same or something similar. e) First Letter: Try to write or think of the first letter of the word. Scan the alphabet to see if each letter triggers anything for you. Do you have any (traces an S in the air) scissors? f) Gesture: Use your hands or body to act out the word, like playing a game of [email or web address][employer]Com. Even gesturing with your hands in a non-specific way or tapping the table may help activate the brain. Do you have any (makes cutting gesture with fingers)? g) Draw: Sketch out a quick picture of what you're trying to say. You don't have to be an artist to use drawing to communicate. Do you have any (draws scissors on a notepad)? h) Look it Up: Think if there's somewhere the word is written down or pictured. A communication notebook, the [employer] hever in your phone, or a ticket stub in your pocket may hold the word. i) Narrow it Down: Give the general topic or category. Is it a person, place, or thing? A family member or a friend? Stating the topic can help your listener predict what you might be trying to say by providing some context. j) Come Back Later: If you can't think of the word and your partner can't guess, it's okay to give up for now. Our brains work out problems while we do other things, so it's possible the word will simply pop out later. This is a last resort, so try other strategies first. 5. The results of this evaluation will be provided to Mrs. Garcia on 09/03/2018 at 11 a.m. ADDENDUM: So discussed. At this time, she is discharged from our care. Thank you for allowing us to participate in the care of this nice woman. If you have any questions, please call [phone]. DICTATED BY: Roel De León, PhD Neuropsychology Fellow REVIEWED BY: Electronically Signed by: Fidelina Mota, PhD, ABPP 09/07/2018 12:03 P Fidelina Mota PhD, ABPP Board Certified Clinical Neuropsychologist Date Dict: 08/11/2018/01:57 P/Roel De León, PhD Date Trans: 08/11/2018 02:43 P/mmo Addendum: 08/13/2018 08:14 Rangel/stalin [id number] cc: Fidelina Mota, PhD, ABPP [address] Rehab Medicine [facility] [address] Charlotte Boateng M.D. [address] [facility] [address] Javan Julien M.D. [facility] [address] [facility] [address] *Mrs. Keila Garcia [address] [place] [address] Normal [facility] US UROLOGY PELVIC ULTRASOUND on 01-27-2018 US UROLOGY PELVIC ULTRASOUND [facility] Department of Radiology [address] [place] [id number] ======== Patient Name: KEILA GARCIA : 1955 Sex: F Age: Race: Other Pt. Location: [facility] Patient Status: O Ordered Date: 01/25/2018 3:00:00 PM Completed Date: 01/27/2018 03:00 PM Requesting Provider: KIANNA LUKE Attending Provider: KIANNA LUKE Report Copy To: CHARLOTTE BOATENG Signs & Symptoms: incontinence/nycturia History: order in ris Comments: Exam: US UROLOGY PELVIC ULTRASOUND ======== US UROLOGY PELVIC ULTRASOUND 01/27/2018 3:00 PM EDT SIGNS AND SYMPTOMS: incontinence/nycturia TECHNOLOGIST COMMENTS: Incontinence QUESTION FOR THE RADIOLOGIST: PROTOCOL: COMPARISON: none FINDINGS: The bladder initially contained 46 mL's of urine with complete emptying post void. IMPRESSION: No postvoid bladder residual identified. Electronically signed by:Ludwin Daly. Transcribed by: [email or web address], User Resident: Electronically Signed by: LUDWIN DALY @ 01/27/2018 03:12 PM Normal [facility] Vital Signs Date Time Vital Sign Value Performing Clinician Facility 07-20-2024 13:48-0400 Body height 165.1 cm Rafat Sepulveda MD Work Phone: [facility] 07-20-2024 13:48-0400 Body mass index (BMI) [Ratio] 32.45 kg/m2 Rafat Sepulveda MD Work Phone: [facility] 07-20-2024 13:48-0400 Body temperature 97 [degF] Rafat Sepulveda MD Work Phone: [facility] 07-20-2024 13:48-0400 Body weight 88.45 kg Rafat Sepulveda MD Work Phone: [facility] 03-23-2024 14:13-0400 Body height 167.6 cm Bib Alva MD Work Phone: [facility] 03-23-2024 14:13-0400 Body mass index (BMI) [Ratio] 31.15 kg/m2 Bib Alva MD Work Phone: [facility] 03-23-2024 14:13-0400 Body weight 87.54 kg Bib Alva MD Work Phone: [facility] 03-23-2024 14:13-0400 Diastolic blood pressure 71 mm[Hg] Bib Alva MD Work Phone: [facility] 03-23-2024 14:13-0400 Heart rate 80 /min Bib Alva MD Work Phone: [facility] 03-23-2024 14:13-0400 Systolic blood pressure 105 mm[Hg] Bib Alva MD Work Phone: [facility] 12-18-2023 11:00-0400 Body height 167.6 cm Nuria Hoitenga PA-C Work Phone: [facility] 12-18-2023 11:00-0400 Body mass index (BMI) [Ratio] 30.26 kg/m2 Nuria Hoitenga PA-C Work Phone: [facility] 12-18-2023 11:00-0400 Body temperature 97 [degF] Nuria Hoitenga PA-C Work Phone: [facility] 12-18-2023 11:00-0400 Body weight 85 kg Nuria Goodwinitenga PA-C Work Phone: [facility] 12-18-2023 11:00-0400 Diastolic blood pressure 68 mm[Hg] Nuria Hoitenga PA-C Work Phone: [facility] 12-18-2023 11:00-0400 Heart rate 79 /min Nuria Hoitenga PA-C Work Phone: [facility] 12-18-2023 11:00-0400 Systolic blood pressure 105 mm[Hg] Nuria Hoitenga PA-C Work Phone: [facility] 10-28-2023 15:17-0500 Diastolic blood pressure 62 mm[Hg] Loreta Deyanira RESIDENTIAL TECH Work Phone: [facility] 10-28-2023 15:17-0500 Systolic blood pressure 118 mm[Hg] Loreta Deyanira RESIDENTIAL TECH Work Phone: [facility] 10-28-2023 14:41-0500 Body height 165.1 cm Loreta Deyanira RESIDENTIAL TECH Work Phone: [facility] 10-28-2023 14:41-0500 Body mass index (BMI) [Ratio] 31.52 kg/m2 Loreta Deyanira RESIDENTIAL TECH Work Phone: [facility] 10-28-2023 14:41-0500 Body weight 85.91 kg Loreta Deyanira RESIDENTIAL TECH Work Phone: [facility] 10-28-2023 14:41-0500 Heart rate 68 /min Loreta Deyanira RESIDENTIAL TECH Work Phone: [facility] 07-23-2023 15:30-0400 Body height 165.1 cm Nate Peralta Other [employer] Other 07-23-2023 15:30-0400 Body mass index (BMI) [Ratio] 30.28 kg/m2 Nate Peralta Other [employer] Other 07-23-2023 15:30-0400 Body temperature 97.7 [degF] Nate Peralta Other [employer] Other 07-23-2023 15:30-0400 Body weight 82.56 kg Nate Peralta Other [employer] Other 07-23-2023 15:30-0400 Diastolic blood pressure 63 mm[Hg] Nate Peralta Other [employer] Other 07-23-2023 15:30-0400 Systolic blood pressure 111 mm[Hg] Nate Peralta Other [employer] Other 05-27-2023 13:15-0400 Body height 165.1 cm Nate Peralta Other [employer] Other 05-27-2023 13:15-0400 Body mass index (BMI) [Ratio] 30.28 kg/m2 Nate Peralta Other [employer] Other 05-27-2023 13:15-0400 Body temperature 97.2 [degF] Nate Peralta Other [employer] Other 05-27-2023 13:15-0400 Body weight 82.56 kg Nate Peralta Other [employer] Other 05-27-2023 13:15-0400 Diastolic blood pressure 71 mm[Hg] Nate Peralta Other [employer] Other 05-27-2023 13:15-0400 Systolic blood pressure 125 mm[Hg] Nate Kathryn Other [employer] Other 08-07-2020 11:08-0500 BP Diastolic 81 mm[Hg] Jany Santizo [facility] , [place] 08-07-2020 11:08-0500 BP Systolic 139 mm[Hg] Jany Santizo [facility] , [place] 08-07-2020 11:08-0500 Pulse (Heart Rate) 78 /[facility] [place] 08-07-2020 11:08-0500 Pulse [facility] 100 % [facility] [place] 08-07-2020 11:08-0500 Respiratory Rate 20 /[facility] [place] 08-07-2020 08:37-0500 Body Temperature 97.81 [degF] Jany Santizo [place] [place] , [place] 08-07-2020 08:37-0500 Height 167.6 cm Jany Santizo [place], [place] Encounters Encounter Date Encounter Type Care Provider Facility Start: 07-20-2024 End: 07-20-2024 Postop follow up visit related to original px Rafat Sepulveda MD Work Phone: [facility] Comment on above: Closed displaced sup racondylar fracture of distal end of left femur without intracondylar extension with routine healing, subsequent encounter (Primary Dx) Start: 07-20-2024 End: 07-20-2024 ambulatory MADELEINE L [facility] Start: 07-06-2024 End: 07-06-2024 Telephone encounter Marie [facility] Start: 06-22-2024 End: 06-22-2024 ambulatory RAFAT SEPULVEDA [facility] Start: 06-13-2024 End: 06-13-2024 ambulatory ALANNA ANDERSON [facility] Start: 06-10-2024 End: 06-10-2024 Evaluation and management of inpatient FIDELINA GUILLEN [facility] Start: 06-06-2024 End: 06-10-2024 Evaluation and management of inpatient DANIEL MONTALVO [facility] Start: 06-06-2024 End: 06-06-2024 ambulatory JOHANA Marie [facility] Start: 06-03-2024 End: 06-10-2024 Evaluation and management of inpatient MICAH VICTOR [facility] Start: 06-03-2024 Encounter for preprocedural respiratory examination CORDELL MORALES [facility] Start: 06-03-2024 End: 06-10-2024 Evaluation and management of inpatient FIDELINA GUILLEN [facility] Start: 06-02-2024 End: 06-03-2024 Emergency department patient visit JOHANA [facility] Start: 06-02-2024 End: 06-03-2024 Emergency department patient visit RADHA HAMLIN [facility] Start: 05-25-2024 End: 05-29-2024 ambulatory [facility] Start: 05-20-2024 End: 05-29-2024 ambulatory [facility] Start: 05-18-2024 End: 05-18-2024 ambulatory LORETA MCMILLAN Not Available Start: 05-17-2024 End: 05-29-2024 [facility] Start: 05-13-2024 End: 05-13-2024 ambulatory KAYLEY BULLOCK Not Available Start: 05-12-2024 Orders Only Bib Pineda Work Phone: [facility] Comment on above: Idiopathic progressi ve polyneuropathy (Primary Dx) Start: 05-05-2024 End: 05-05-2024 ambulatory JACQUIE BROOKS Not Available Start: 05-04-2024 End: 05-04-2024 ambulatory BIB ALVA Facility:[facility] Start: 05-04-2024 End: 05-04-2024 Patient encounter procedure Emg 2 Neur [facility] Rej (Max Weight: 400) Work Phone: Neurology Comment on above: EMG Start: 05-03-2024 End: 05-03-2024 ambulatory STEPHAN MORSE Not Available Start: 05-02-2024 End: 05-02-2024 ambulatory [place]IB [place] Facility:[facility] Start: 05-02-2024 End: 05-02-2024 Subsequent hospital visit by physician Emily Wagner [facility] Tamia (7t) Work Phone: Radiology Comment on above: Demyelinating diseas e of central nervous system (HCC) [G37.9] Start: 04-28-2024 End: 04-28-2024 ambulatory STEPHAN MORSE Not Available Start: 04-21-2024 End: 04-21-2024 [facility] Start: 04-20-2024 End: 04-20-2024 ambulatory LORETA A DEYANIRA Not Available Start: 04-20-2024 End: 04-20-2024 ambulatory LORETA MCMILLAN Not Available Start: 04-19-2024 End: 04-19-2024 ambulatory [facility] Neurology Comment on above: No Show Start: 04-19-2024 End: 04-19-2024 Patient encounter procedure Emg 1 Neur [facility] Naldo (Max Weight:400) Work Phone: Neurology Start: 04-17-2024 End: 04-18-2024 Emergency department patient visit RADHA HAMLIN [facility] Start: 04-15-2024 End: 04-28-2024 [facility] Start: 04-06-2024 End: 04-06-2024 [facility] Start: 03-30-2024 End: 04-28-2024 ambulatory [facility] Start: 03-25-2024 End: 03-28-2024 [facility] Start: 03-23-2024 End: 03-23-2024 ambulatory [place]IB [place] Facility:[facility] Start: 03-23-2024 End: 03-23-2024 Patient encounter procedure Bib Alva MD Work Phone: [facility] Comment on above: Demyelinating diseas e of central nervous system (HCC) (Primary Dx); Cervical spondylosis with myelopathy; Ataxia Start: 03-22-2024 End: 03-28-2024 ambulatory [facility] Start: 02-23-2024 End: 02-23-2024 ambulatory [facility] Start: 02-19-2024 End: 02-27-2024 ambulatory [facility] Start: 02-15-2024 End: 02-15-2024 ambulatory KIANNA LUKE [facility] Start: 02-09-2024 End: 02-09-2024 ambulatory LORETA MCMILLAN Not Available Start: 02-03-2024 End: 02-03-2024 ambulatory [facility] Start: 02-03-2024 End: 02-27-2024 ambulatory [facility] Start: 02-02-2024 End: 02-27-2024 ambulatory [facility] Start: 01-27-2024 End: 02-27-2024 ambulatory [facility] Start: 01-25-2024 End: 01-25-2024 ambulatory LORETA MCMILLAN Not Available Start: 01-13-2024 End: 01-13-2024 ambulatory [facility] Start: 01-13-2024 End: 01-13-2024 ambulatory JACQUIE CROWLIN Not Available Start: 01-13-2024 End: 01-27-2024 ambulatory [facility] Start: 01-08-2024 End: 01-27-2024 ambulatory [facility] Start: 12-31-2023 End: 01-27-2024 ambulatory [facility] Start: 12-29-2023 End: 01-27-2024 ambulatory [facility] Start: 12-24-2023 End: 12-28-2023 ambulatory [facility] Start: 12-18-2023 End: 12-18-2023 ambulatory ANNA CLEARY [facility] Amb[facility] Start: 12-18-2023 End: 12-18-2023 Office outpatient visit 15 minutes Anna Cleary MD [facility] Comment on above: Vitreous floaters of both eyes (Primary Dx); Posterior vitreous detachment of both eyes; Dry eyes, bilateral; Nuclear sclerotic cataract of both eyes; Macular drusen, bilateral Start: 12-18-2023 End: 12-18-2023 Office outpatient visit 25 minutes Nuria Braden PA-C Work Phone: [facility] Comment on above: History of sleeve ga strectomy (Primary Dx); Postsurgical malabsorption; Malnutrition following gastrointestinal surgery Start: 12-18-2023 End: 12-18-2023 ambulatory NURIA HERMOSILLORangel [facility] Start: 12-10-2023 End: 12-10-2023 ambulatory [facility] Start: 12-10-2023 End: 12-10-2023 Follow-up encounter [facility] Shae Mtm [address] 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) Start: 11-11-2023 Telephone encounter Jacquie Sheldon Work Phone: [facility] Start: 11-04-2023 Telephone encounter Natalie Garnica MA [facility] Medication Therapy Management Start: 11-04-2023 End: 11-27-2023 ambulatory JOBST [facility] Start: 11-02-2023 End: 11-27-2023 ambulatory JOBST [facility] Start: 10-30-2023 End: 11-27-2023 ambulatory [facility] Start: 10-28-2023 End: 10-28-2023 Office outpatient visit 40 minutes Loreta Mcmillan NP Work Phone: [facility] Comment on above: First degree AV bloc k (Primary Dx); Chronic atrial fibrillation, unspecified (I48.20); Sacroiliitis, not elsewhere classified (M46.1); Major depressive disorder, single episode, moderate (F32.1); Other giant cell arteritis (M31.6); Atherosclerosis of aorta (I70.0); Other secondary hypertension ([facility]/HCC); Essential hypertension, benign ([facility]/HCC); LVH (left ventricular hypertrophy); Prolonged Q-T interval on ECG; Stage 3b chronic kidney disease (HCC) ([facility]/HCC); Hyperparathyroidism, secondary renal ([facility]/HCC); Iron deficiency anemia secondary to inadequate dietary iron intake; History of borderline diabetes mellitus; Dyslipidemia ([facility]/HCC); History of sleeve gastrectomy; Lymphedema; Recurrent major depression in partial remission (HCC) ([facility]/HCC); Urinary urgency; White matter abnormality on MRI of brain; Tinnitus, unspecified laterality; Repeated falls; Tear film insufficiency, unspecified laterality; Nuclear sclerotic cataract of both eyes; Posterior vitreous detachment of right eye; Age-related osteoporosis without current pathological fracture ([facility]/HCC); Primary lymphedema; Degeneration of cervical intervertebral disc; Neurogenic claudication; Bilateral shoulder pain, unspecified chronicity; Congenital spondylolisthesis; Disc disorder; Idiopathic scoliosis and kyphoscoliosis; Inflammation of sacroiliac joint ([facility]/HCC); Presence of artificial knee joint, bilateral; Microalbuminuria; Urge incontinence; Bladder disorder; Status post bariatric surgery; Atrial fibrillation, unspecified type ([facility]/HCC); Hypertensive heart and chronic kidney disease without heart failure, with stage 1 through stage 4 chronic kidney disease, or unspecified chronic kidney disease ([facility]/HCC); Gastroesophageal reflux disease, unspecified whether esophagitis present; Decreased hearing, unspecified laterality; Encounter to establish care; Diarrhea, unspecified type; Visual impairment; Vitreous floaters of right eye; 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; Gait disorder Start: 10-28-2023 End: 10-28-2023 ambulatory LORETA MCMILLAN Not Available Start: 10-27-2023 Orders Only Keila Botello Work Phone: [facility] Comment on above: History of sleeve ga strectomy (Primary Dx); Postsurgical malabsorption; Malnutrition following gastrointestinal surgery; History of hyperlipidemia; History of anemia Start: 10-21-2023 Telephone encounter Aviva Mon alfredo [facility] General Surgery-Bariatric Comment on above: Appointment (5 year follow up visit) Start: 10-19-2023 End: 10-19-2023 ambulatory [facility] Start: 10-02-2023 End: 10-02-2023 ambulatory [facility] Start: 10-02-2023 End: 10-02-2023 Follow-up encounter [facility] [address] 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: intermediate current us e of 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 (Primary Dx) Start: 09-30-2023 End: 10-29-2023 ambulatory MARIE Akanksha WESLEY Not Available Start: 09-25-2023 End: 09-25-2023 ambulatory MARIE WESLEY [facility] Start: 07-29-2023 End: 07-29-2023 ambulatory GREG FLORES [facility] Start: 07-23-2023 End: 07-23-2023 ambulatory Nate Peralta Other [employer] Other Start: 07-23-2023 Office outpatient vi sit 25 minutes Nate Peralta [facility] Start: 05-27-2023 End: 05-27-2023 ambulatory Nate Peralta Other [employer] Other Start: 05-27-2023 Office outpatient ne w 45 minutes Nate Peralta [facility] Start: 08-07-2020 End: 08-07-2020 Patient encounter procedure JANY SANTIZO [facility] Start: 08-07-2020 End: 08-07-2020 Subsequent hospital visit by physician Jany Santizo Work Phone: [facility] Start: 08-03-2020 End: 08-08-2020 Patient encounter procedure CHARLOTTE BOATENG [facility] Start: 08-03-2020 End: 08-07-2020 Subsequent hospital visit by physician Flip VELASQUEZ PRE-ADMIT TESTING Start: 01-03-2019 End: 01-04-2019 Patient encounter procedure DEFAULT PHYSICIAN Facility:[facility] Start: 08-28-2018 End: 09-28-2018 Patient encounter procedure VINICIUSD MANJINDER Facility:[facility] Start: 08-11-2018 End: 08-28-2018 Patient encounter procedure JAVAN MANJINDER Facility:[facility] Start: 01-27-2018 End: 01-28-2018 Patient encounter procedure CHARLOTTE BOATENG Facility:[facility] Start: 01-15-2018 End: 01-16-2018 Patient encounter procedure PROVIDER UNKNOWN Facility:[facility] Procedures Date Procedure Procedure Detail Performing Clinician Start: 06-03-2024 Adult depression screening assessment Marie Laughlin Start: 05-04-2024 Nerve conduction studies 5-6 studies Bib Alva MD Work Phone: Start: 05-02-2024 Mri brain brain stem w/o w/contrast material Bib Alva MD Work Phone: Start: 02-09-2024 Mammography Marie Harley er Start: 12-18-2023 Follow-up visit Follow-up NETTIE BRADEN Start: 12-10-2023 Prothrombin time [employer] Work Phone: Start: 11-30-2023 Lipid 1996 panel - Serum or Plasma Bib Alva MD Work Phone: Start: 11-12-2023 Prothrombin time [employer] Work Phone: Start: 10-19-2023 End: 10-19-2023 Ophth medical xm&eval comprhnsv estab pt 1/> Hyperopia with astigmatism and presbyopia, bilateral Jose G Linley OD Work Phone: Comment on above: Hyperopia with astig matism and presbyopia, bilateral (Primary Dx) Start: 10-02-2023 Prothrombin time [employer] Work Phone: Start: 08-09-2023 Adult depression screening assessment [facility] Start: 10-07-2022 Colonoscopy [facility] Start: 08-07-2020 DISCHARGE PATIENT JANY SANTIZO Start: 08-03-2020 COVID- AMBULATORY NISREEN BOATENG Start: 08-03-2020 COVID- AMBULATORY Filemon Connor Work Phone: Start: 08-03-2020 COVID- CHARLOTTE BOATENG Start: 11-08-2019 Mammography Loreta Mcmillan NP Work Phone: Start: 10-28-2019 Mammography [facility] Plan of Treatment Date Care Activity Detail Author Start: 10-07-2032 Screening for malignant neoplasm of colon [facility] Start: 11-29-2028 Lipid panel Lipid Screening [facility] Start: 02-14-2027 Diabetes Screening Diabetes Screening [facility] Start: 07-25-2025 Tobacco Screening Tobacco Screening [facility] Start: 07-20-2025 Adult BMI Screening Adult BMI Screening [facility] Start: 06-23-2025 Tobacco Screening Tobacco Screening [facility] Start: 06-22-2025 Adult BMI Screening Adult BMI Screening [facility] Start: 06-03-2025 Depression Screening Depression Screening [facility] Start: 03-23-2025 BP Controlled (<130/80) BP Controlled (<130/80) [facility] Start: 02-14-2025 Creatinine measurement Serum Creatinine [facility] Start: 02-08-2025 Screening for malignant neoplasm of breast [facility] Start: 12-17-2024 Adult BMI Screening Adult BMI Screening [facility] Start: 12-17-2024 Tobacco Screening Tobacco Screening [facility] Start: 11-29-2024 Complete blood count Hemoglobin/Hematocrit [facility] Start: 11-28-2024 End: 11-28-2025 Calcium [Mass/volume] in Serum or Plasma Calcium Lab Routine History of sleeve gastrectomy 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 Expected: 11/28/2024 (Approximate), Expires: 11/28/2025 [facility] Comment on above: Expected: 11/28/2024 (Approximate), Expi res: 11/28/2025 Start: 11-28-2024 End: 11-28-2025 CBC W Auto Differential panel - Blood CBC auto differential Lab Routine History of sleeve gastrectomy 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 Expected: 11/28/2024 (Approximate), Expires: 11/28/2025 [facility] Comment on above: Expected: 11/28/2024 (Approximate), Expi res: 11/28/2025 Start: 11-28-2024 End: 11-28-2025 Copper, serum Copper, serum Lab Routine History of sleeve gastrectomy 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 Expected: 11/28/2024 (Approximate), Expires: 11/28/2025 [facility] Comment on above: Expected: 11/28/2024 (Approximate), Expi res: 11/28/2025 Start: 11-28-2024 End: 11-28-2025 Cyanocobalamin vitamin b-12 Vitamin B12 Lab Routine History of sleeve gastrectomy 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 Expected: 11/28/2024 (Approximate), Expires: 11/28/2025 [facility] Comment on above: Expected: 11/28/2024 (Approximate), Expi res: 11/28/2025 Start: 11-28-2024 End: 11-28-2025 Ferritin [Mass/volume] in Serum or Plasma Ferritin Lab Routine History of sleeve gastrectomy 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 Expected: 11/28/2024 (Approximate), Expires: 11/28/2025 [facility] Comment on above: Expected: 11/28/2024 (Approximate), Expi res: 11/28/2025 Start: 11-28-2024 End: 11-28-2025 Folate Folate Lab Routine History of sleeve gastrectomy 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 Expected: 11/28/2024 (Approximate), Expires: 11/28/2025 [facility] Comment on above: Expected: 11/28/2024 (Approximate), Expi res: 11/28/2025 Start: 11-28-2024 End: 11-28-2025 Iron and TIBC Iron and TIBC Lab Routine History of sleeve gastrectomy 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 Expected: 11/28/2024 (Approximate), Expires: 11/28/2025 [facility] Comment on above: Expected: 11/28/2024 (Approximate), Expi res: 11/28/2025 Start: 11-28-2024 End: 11-28-2025 Lipid 1996 panel - Serum or Plasma Lipid profile Lab Routine History of sleeve gastrectomy 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 Expected: 11/28/2024 (Approximate), Expires: 11/28/2025 [facility] Work Phone: Comment on above: Expected: 11/28/2024 (Approximate), Expi res: 11/28/2025 Start: 11-28-2024 End: 11-28-2025 Liver panel Liver panel Lab Routine History of sleeve gastrectomy 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 Expected: 11/28/2024 (Approximate), Expires: 11/28/2025 [facility] Comment on above: Expected: 11/28/2024 (Approximate), Expi res: 11/28/2025 Start: 11-28-2024 End: 11-28-2025 Parathyroid Hormone, intact Parathyroid Hormone, intact Lab Routine History of sleeve gastrectomy 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 Expected: 11/28/2024 (Approximate), Expires: 11/28/2025 [facility] Comment on above: Expected: 11/28/2024 (Approximate), Expi res: 11/28/2025 Start: 11-28-2024 End: 11-28-2025 Thiamin Vitamin B1, whole blood Thiamin Vitamin B1, whole blood Lab Routine History of sleeve gastrectomy 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 Expected: 11/28/2024 (Approximate), Expires: 11/28/2025 [facility] Comment on above: Expected: 11/28/2024 (Approximate), Expi res: 11/28/2025 Start: 11-28-2024 End: 11-28-2025 Vitamin A (Retinol) Vitamin A (Retinol) Lab Routine History of sleeve gastrectomy 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 Expected: 11/28/2024 (Approximate), Expires: 11/28/2025 [facility] Comment on above: Expected: 11/28/2024 (Approximate), Expi res: 11/28/2025 Start: 11-28-2024 End: 11-28-2025 Vitamin D 25 hydroxy Vitamin D 25 hydroxy Lab Routine History of sleeve gastrectomy 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 Expected: 11/28/2024 (Approximate), Expires: 11/28/2025 [facility] Comment on above: Expected: 11/28/2024 (Approximate), Expi res: 11/28/2025 Start: 11-28-2024 End: 11-28-2025 Zinc Zinc Lab Routine History of sleeve gastrectomy 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 Expected: 11/28/2024 (Approximate), Expires: 11/28/2025 [facility] Comment on above: Expected: 11/28/2024 (Approximate), Expi res: 11/28/2025 Start: 10-19-2024 Tobacco Screening Tobacco Screening [facility] Start: 09-02-2024 End: 09-02-2024 Patient encounter procedure 09/02/2024 10:15 AM EST Office Visit [facility] [address] [phone] Rafat Sepulveda MD [address] [place] [address] [facility] Start: 08-23-2024 End: 08-23-2024 Patient encounter procedure 08/23/2024 12:30 PM EST Office Visit [facility] [address] [address] Bib Alva MD [address] [place] [address] Follow up [facility] Comment on above: Follow up Start: 08-18-2024 End: 08-18-2024 Patient encounter procedure 08/18/2024 2:50 PM EST Office Visit [facility] [address] [place] [phone] Anna Cleary MD [address] [place] [address] [facility] Start: 08-11-2024 Tobacco Screening Tobacco Screening [facility] Start: 08-10-2024 Adult BMI Screening Adult BMI Screening [facility] Start: 08-09-2024 Depression Screening Depression Screening [facility] Start: 07-20-2024 End: 07-20-2024 Patient encounter procedure 07/20/2024 2:00 PM EDT Office Visit [facility] [address] [place] [phone] Rafat Sepulveda MD [address] [place] [address] [facility] Start: 05-29-2024 COVID-19 Vaccine () COVID-19 Vaccine () [facility] Start: 05-29-2024 Influenza vaccination [facility] Start: 05-12-2024 Administration of varicella zoster vaccine Zoster (Shingles) Vaccine (2 of 2) [facility] Start: 05-12-2024 Shingrix Vaccine (2 of 2) Shingrix Vaccine (2 of 2) [facility] Start: 05-04-2024 End: 05-04-2024 Patient encounter procedure 05/04/2024 2:15 PM EDT Procedure Neurology [address] [place] [address] [facility] Comment on above: r E LE Start: 04-19-2024 End: 04-19-2024 ambulatory 04/19/2024 12:30 PM EDT Procedure [facility] [address] [facility] [place], [place] [id number] [facility] Comment on above: [facility] Start: 01-29-2024 End: 01-29-2024 Patient encounter procedure 01/29/2024 1:15 PM EDT Office Visit [facility] [address] [place] [phone] Jany Smith MD [address] [place] [address] [facility] Start: 01-25-2024 End: 01-25-2024 Patient encounter procedure 01/25/2024 1:00 PM EDT Office Visit [facility] [address] [place] [phone] Loreta Mcmillan NP [address] [place] [address] [facility] Start: 12-24-2023 End: 12-24-2023 Follow-up encounter 12/24/2023 9:30 AM EDT Follow Up Anticoagulation [facility] Medication Therapy Management [address] [place] [address] [facility] Medication Therapy Management Start: 12-18-2023 End: 12-18-2023 Patient encounter procedure 12/18/2023 2:10 PM EDT Office Visit [facility] [address] [facility] [address] [place] [address] Anna Cleary MD [address] [facility] [address] [place] [address] [facility] Start: 12-18-2023 End: 12-18-2023 Patient encounter procedure 12/18/2023 11:30 AM EDT Office Visit [facility] [address] [place] [phone] Nuria Braden PA-C [address] [address] [facility] Start: 12-10-2023 End: 12-10-2023 Follow-up encounter 12/10/2023 11:45 AM EDT Follow Up Anticoagulation [facility] Medication Therapy Management [address] [place] [address] [facility] Medication Therapy Management Start: 11-20-2023 End: 11-20-2023 Patient encounter procedure 11/20/2023 1:30 PM EST Office Visit [facility] [address] [place] [phone] Anna Cleary MD [address] [place] [phone] [facility] Start: 11-17-2023 End: 11-17-2023 Patient encounter procedure 11/17/2023 1:00 PM EST Office Visit [facility] General Surgery-Bariatric [address] [place] [phone] Marci Croft, [employer] [address] [place] [address] [facility] Start: 11-12-2023 End: 11-12-2023 Follow-up encounter 11/12/2023 11:45 AM EST Follow Up Anticoagulation [facility] Medication Therapy Management [address] [facility] [place] [address] [facility] Medication Therapy Management Start: 11-03-2023 End: 10-27-2024 Calcium [Mass/volume] in Serum or Plasma Calcium Lab Routine History of sleeve gastrectomy 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 History of hyperlipidemia History of anemia Expected: 11/03/2023, Expires: 10/27/2024 [facility] Work Phone: Comment on above: Expected: 11/03/2023, Expires: Start: 11-03-2023 End: 10-27-2024 CBC W Auto Differential panel - Blood CBC auto differential Lab Routine History of sleeve gastrectomy 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 History of hyperlipidemia History of anemia Expected: 11/03/2023, Expires: 10/27/2024 [facility] Comment on above: Expected: 11/03/2023, Expires: Start: 11-03-2023 End: 10-27-2024 Copper, serum Copper, serum Lab Routine History of sleeve gastrectomy 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 History of hyperlipidemia History of anemia Expected: 11/03/2023, Expires: 10/27/2024 [facility] Comment on above: Expected: 11/03/2023, Expires: Start: 11-03-2023 End: 10-27-2024 Cyanocobalamin vitamin b-12 Vitamin B12 Lab Routine History of sleeve gastrectomy 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 History of hyperlipidemia History of anemia Expected: 11/03/2023, Expires: 10/27/2024 [facility] Comment on above: Expected: 11/03/2023, Expires: Start: 11-03-2023 End: 10-27-2024 Ferritin [Mass/volume] in Serum or Plasma Ferritin Lab Routine History of sleeve gastrectomy 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 History of hyperlipidemia History of anemia Expected: 11/03/2023, Expires: 10/27/2024 [facility] Comment on above: Expected: 11/03/2023, Expires: Start: 11-03-2023 End: 10-27-2024 Folate Folate Lab Routine History of sleeve gastrectomy 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 History of hyperlipidemia History of anemia Expected: 11/03/2023, Expires: 10/27/2024 [facility] Comment on above: Expected: 11/03/2023, Expires: Start: 11-03-2023 End: 10-27-2024 Iron and TIBC Iron and TIBC Lab Routine History of sleeve gastrectomy 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 History of hyperlipidemia History of anemia Expected: 11/03/2023, Expires: 10/27/2024 [facility] Comment on above: Expected: 11/03/2023, Expires: Start: 11-03-2023 End: 10-27-2024 Lipid 1996 panel - Serum or Plasma Lipid profile Lab Routine History of sleeve gastrectomy 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 History of hyperlipidemia History of anemia Expected: 11/03/2023, Expires: 10/27/2024 [facility] Comment on above: Expected: 11/03/2023, Expires: Start: 11-03-2023 End: 10-27-2024 Liver panel Liver panel Lab Routine History of sleeve gastrectomy 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 History of hyperlipidemia History of anemia Expected: 11/03/2023, Expires: 10/27/2024 [facility] Comment on above: Expected: 11/03/2023, Expires: Start: 11-03-2023 End: 10-27-2024 Parathyroid Hormone, intact Parathyroid Hormone, intact Lab Routine History of sleeve gastrectomy 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 History of hyperlipidemia History of anemia Expected: 11/03/2023, Expires: 10/27/2024 [facility] Comment on above: Expected: 11/03/2023, Expires: Start: 11-03-2023 End: 10-27-2024 Thiamin Vitamin B1, whole blood Thiamin Vitamin B1, whole blood Lab Routine History of sleeve gastrectomy 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 History of hyperlipidemia History of anemia Expected: 11/03/2023, Expires: 10/27/2024 [facility] Comment on above: Expected: 11/03/2023, Expires: Start: 11-03-2023 End: 10-27-2024 Vitamin A (Retinol) Vitamin A (Retinol) Lab Routine History of sleeve gastrectomy 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 History of hyperlipidemia History of anemia Expected: 11/03/2023, Expires: 10/27/2024 [facility] Comment on above: Expected: 11/03/2023, Expires: Start: 11-03-2023 End: 10-27-2024 Vitamin D 25 hydroxy Vitamin D 25 hydroxy Lab Routine History of sleeve gastrectomy 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 History of hyperlipidemia History of anemia Expected: 11/03/2023, Expires: 10/27/2024 [facility] Comment on above: Expected: 11/03/2023, Expires: Start: 11-03-2023 End: 10-27-2024 Zinc Zinc Lab Routine History of sleeve gastrectomy 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 History of hyperlipidemia History of anemia Expected: 11/03/2023, Expires: 10/27/2024 [facility] Comment on above: Expected: 11/03/2023, Expires: 5 Start: 10-30-2023 End: 10-30-2023 Follow-up encounter 10/30/2023 1:15 PM EST Follow Up Anticoagulation [facility] Medication Therapy Management [address] [place] [address] [facility] Medication Therapy Management Start: 10-19-2023 End: 10-19-2023 Patient encounter procedure 10/19/2023 2:00 PM EST Office Visit [facility] [address] [place] [phone] Jose G Betancur, DELIO [address] [place] [address] [place] [address] [facility] Start: 10-06-2023 Screening for malignant neoplasm of colon [facility] Start: 09-28-2023 Advance Directive Discussion Advance Directive Discussion [facility] Start: 05-29-2023 COVID-19 Vaccine () COVID-19 Vaccine () [facility] Start: 05-29-2023 Covid-19 Vaccine () Covid-19 Vaccine () [facility] Start: 11-08-2020 Screening for malignant neoplasm of breast Mammogram [facility] Start: 10-28-2020 Screening for malignant neoplasm of breast Mammogram [facility] Start: 08-05-2020 Annual Wellness Visit (AWV) Annual Wellness Visit (AWV) [place], [place] Start: 05-29-2020 Influenza vaccination Flu vaccine (#1) [place] Start: 01-11-2020 Creatinine measurement Creatinine monitoring [place], [place] Start: 01-11-2020 Potassium monitoring Potassium monitoring [place] Start: 2019 Fall Risk Screening Fall Risk Screening [facility] Start: 2019 Pneumococcal 65+ years Vaccine (2 of 2 - PPSV23) Pneumococcal 65+ years Vaccine (2 of 2 - PPSV23) [place] Start: 2019 Screening for osteoporosis Bone Density Screening [facility] Start: 04-05-2019 Medicare Annual Wellness Visit Medicare Annual Wellness Visit [facility] Start: 2009 Screening for osteoporosis DEXA (modify frequency per FRAX score) [place], [place] Start: 2004 Administration of varicella zoster vaccine Zoster (Shingles) Vaccine (1 of 2) [facility] Start: 2004 Screening for malignant neoplasm of breast Breast cancer screen [place], [place] Start: 2004 Screening for malignant neoplasm of colon Colon cancer screen colonoscopy [place], [place] Start: 2004 Shingles Vaccine (1 of 2) Shingles Vaccine (1 of 2) [place] Start: 1999 Screening for malignant neoplasm of colon [facility] Start: 1994 Lipid panel Lipid screen [place] Start: 1975 Screening for malignant neoplasm of cervix Cervical cancer screen [place], [place] Start: 1973 DTaP,Tdap and Td Vaccines (1 - Tdap) DTaP,Tdap and Td Vaccines (1 - Tdap) [facility] Start: 1973 DTaP/Tdap/Td vaccine (1 - Tdap) DTaP/Tdap/Td vaccine (1 - Tdap) [place] Start: 1973 Urine microalbumin profile DTaP,Tdap,Td Vaccine (1 - Tdap) [facility] Start: 1972 Adult BMI Follow Up Plan Adult BMI Follow Up Plan [facility] Start: 1972 Annual PCP Team Chronic Disease Visit Annual PCP Team Chronic Disease Visit [facility] Start: 1972 Spirometry Spirometry [facility] Start: 1969 HIV screening HIV screen [place], [place] Start: 1954 Hepatitis C screening Hepatitis C screen [place], [place] Start: 1954 Screening for malignant neoplasm of colon [facility] End: 08-03-2020 COVID-19 COVID-19 Lab Routine One Time for 1 Occurrences starting 08/03/2020 until 08/03/2020 [place] Comment on above: One Time for 1 Occurrences starting 02/2020 until 08/03/2020 End: 03-23-2025 EMG(NEURO/NI) EMG(NEURO/NI) EMG Routine Ataxia 1 Occurrences starting 03/23/2024 until 03/23/2025 [facility] Comment on above: 1 Occurrences starting 03/23/2024 until 03/23/2025 End: 04-22-2025 MR Brain WO and W contrast IV MRI 7T BRAIN WO/W IVCON Radiology Routine Demyelinating disease of central nervous system (HCC) 1 Occurrences starting 03/23/2024 until 04/22/2025 [facility] Work Phone: Comment on above: 1 Occurrences starting 03/23/2024 until 04/22/2025 Immunizations Immunization Date Immunization Notes Care Provider Shasha hines 03-17-2024 RSV, bivalent, prote in subunit RSVpreF, diluent reconstituted, 0.5 mL, PF [facility] 03-17-2024 zoster vaccine recombinant [facility] 03-17-2024 zoster vaccine, unspecified formulation [facility] 07-01-2023 Influenza, High-dose Seasonal, Quadrivalent, Preservative Free Loreta Mcmillan NP Work Phone: [facility] 07-01-2023 influenza virus vacc ine, unspecified formulation Mri (7t) Work Phone: [facility] 07-14-2022 Influenza Vaccine, Quadrivalent, Adjuvanted [facility] Work Phone: 08-14-2021 Influenza, High-dose , Quadrivalent [facility] Work Phone: 08-14-2021 pneumococcal polysaccharide vaccine, 23 valent [facility] 12-28-2020 COVID-19, mRNA, LNP- S, PF, 100mcg/0.5mL Dose [facility] 11-30-2020 COVID-19, mRNA, LNP- S, PF, 100mcg/0.5mL Dose [facility] 1 [facility] 10-10-2020 SARS-COV-2 (COVID-19 ) Vaccine, Unspecified [facility] 1 [facility] 09-15-2019 Influenza, injectabl e, Madin [place] Canine Kidney, preservative free, quadrivalent [facility] 1 [facility] 09-28-2018 influenza virus vacc ine, unspecified formulation [facility] 1 [facility] 08-10-2017 influenza, high dose seasonal, preservative-free [facility] 1 [facility] 08-10-2017 pneumococcal conjuga te vaccine, 13 valent [facility] 1 [facility] 07-09-2015 influenza virus vacc ine, unspecified formulation [facility] 1 [facility] 07-09-2015 influenza, seasonal, injectable [facility] 1 [facility] Payers Date Payer Category Payer Managed Care HMO (unspecified) AETMISTY AETNA [id number] 2021-Present [address] [place] [address] O [id number] 2021 Medicare [id number]. [id number] 2021 Medicare HMO AETNA MEDICARE [id number]. [id number] 2021 Medicare [id number] 2.16.840.1.412718.19 2017 Private Health Insurance [id number] [id number] 1955 Unknown [id number] 2.16.840.1.511838.3.579.2. 647 1954 Unknown [id number] 2.16.840.1.814314.3.579.2. 647 1954 Unknown [id number] 2.16.840.1.067053.3.579.2. 647 1954 Unknown [id number] 2.16.840.1.581579.3.579.2. 647 1954 Unknown [id number] 2.16.840.1.010237.3.579.2. 647 1954 Unknown [id number] 2.16.840.1.659447.3.579.2. 175 1954 Unknown [id number] 2.16.840.1.810352.3.579.2. 177 1954 Unknown [id number] 2.16.840.1.982439.3.579.2. 1286 1954 Unknown [id number] 2.16.840.1.374860.3.579.2. 1259 1954 Unknown [id number] 2.16.840.1.051263.3.579.2. 1259 1954 Unknown [id number] 2.16.840.1.217299.3.579.2. 1259 1954 Unknown [id number] 2.16.840.1.835974.3.579.2. 1259 1954 Unknown [id number] 2.16.840.1.243428.3.579.2. 9 1954 Unknown [id number] 2.16.840.1.565231.3.579.2. 1258 1954 Unknown [id number] 2.16.840.1.887184.3.579.2. 1258 1954 Unknown [id number] 2.16.840.1.334574.3.579.2. 125 1954 Unknown [id number] 2.16.840.1.550559.3.579.2. 1258 1954 Unknown [id number] 2.16.840.1.654477.3.579.2. 1258 1954 Unknown [id number] 2.16.840.1.487830.3.579.2. 1258 1954 Unknown [id number] 2.16.840.1.636492.3.579.2. 1258 1954 Unknown [id number] 2.16.840.1.689311.3.579.2. 1258 1954 Unknown [id number] 2.16.840.1.416735.3.579.2. 1285 1954 Unknown [id number] 2.16.840.1.687721.3.579.2. 1285 1954 Unknown [id number] 2.16.840.1.432517.3.579.2. 1285 1954 Unknown [id number] 2.16.840.1.774332.3.579.2. 1285 1954 Unknown [id number] 2.16.840.1.421873.3.579.2. 1285 1954 Unknown [id number] 2.16.840.1.755641.3.579.2. 128 1954 Unknown [id number] 2.16.840.1.912797.3.579.2. 1286 1954 Unknown [id number] 2.16.840.1.086026.3.579.2. 1285 1954 Unknown [id number] 2.16.840.1.906658.3.579.2. 1285 1954 Unknown [id number] 2.16.840.1.487884.3.579.2. 1285 1954 Unknown [id number] 2.16.840.1.801541.3.579.2. 1285 1954 Unknown [id number] 2.16.840.1.878608.3.579.2. 1285 1954 Unknown [id number] 2.16.840.1.341233.3.579.2. 1285 1954 Unknown [id number] 2.840.1.238395.3.579.2. 1285 1954 Unknown [id number] 2.16.840.1.370292.3.579.2. 1285 1954 Unknown [id number] 2.16.840.1.008043.3.579.2. 1285 1954 Unknown [id number] 2.16.840.1.223527.3.579.2. 1285 1954 Unknown [id number] 2.16.840.1.863515.3.579.2. 1285 1954 Unknown [id number] 2.16.840.1.276094.3.579.2. 1285 1954 Unknown [id number] 2.16.840.1.402481.3.579.2. 1285 1954 Unknown [id number] 2.16.840.1.476933.3.579.2. 1285 1954 Unknown [id number] 2.16.840.1.848112.3.579.2. 1285 1954 Unknown [id number] 2.16.840.1.409507.3.579.2. 1285 1954 Unknown [id number] 2.16.840.1.051954.3.579.2. 1285 1954 Unknown [id number] 2.16.840.1.793731.3.579.2. 1285 1954 Unknown [id number] 2.16.840.1.675293.3.579.2. 1285 1954 Unknown [id number] 2.16.840.1.381402.3.579.2. 1285 1954 Unknown [id number] 2.16.840.1.859089.3.579.2. 1285 1954 Unknown [id number] 2.16.840.1.783763.3.579.2. 1285 1954 Unknown [id number] 2.16.840.1.483992.3.579.2. 1285 1954 Unknown [id number] 2.16.840.1.716248.3.579.2. 1285 1954 Unknown [id number] 2.16.840.1.724614.3.579.2. 1285 1954 Unknown [id number] 2.16.840.1.859200.3.579.2. 1285 1954 Unknown [id number] 2.16.840.1.071006.3.579.2. 1285 1954 Unknown [id number] 2.16.840.1.218558.3.579.2. 1285 1954 Unknown [id number] 2.16.840.1.676419.3.579.2. 1285 1954 Unknown [id number] 2.16.840.1.860886.3.579.2. 1285 1954 Unknown [id number] 2.16.840.1.356061.3.579.2. 1285 1954 Unknown [id number] 2.16.840.1.653475.3.579.2. 1285 1954 Unknown [id number] 2.16.840.1.900671.3.579.2. 1285 1954 Unknown [id number] 2.16.840.1.707187.3.579.2. 1285 1954 Unknown [id number] 2.16.840.1.292253.3.579.2. 1285 1954 Unknown [id number] 2.840.1.332900.3.579.2. 1285 1954 Unknown [id number] 2.840.1.691061.3.579.2. 1285 1954 Unknown [id number] 2.16.840.1.369874.3.579.2. 1285 1954 Unknown [id number] 2.16.840.1.787680.3.579.2. 1285 1954 Unknown [id number] 2.16.840.1.174376.3.579.2. 1285 1954 Unknown [id number] 2.16840.1.016497.3.579.2. 1285 1954 Unknown [id number] 2.16.840.1.677607.3.579.2. 1285 1954 Unknown [id number] 2.16.840.1.328760.3.579.2. 1285 1954 Unknown [id number] 2.16.840.1.682953.3.579.2. 1285 1954 Unknown [id number] 2.16.840.1.193456.3.579.2. 1285 1954 Unknown [id number] 2.16.840.1.730488.3.579.2. 1286 1954 Unknown [id number] 2.16.840.1.336644.3.579.2. 1286 Unknown Social History Date Type Detail Facility Start: 08-07-2020 End: 10-05-2022 Tobacco smoking status VTIS Never smoker [facility] Start: 08-07-2020 End: 10-05-2022 Tobacco use and exposure Never used [place] Start: 08-07-2020 End: 07-25-2024 Alcohol intake Current drinker of alcohol (finding) [place] Start: 03-27-2014 Alcohol Comment social [place], [place] Start: 1955 Sex Assigned At Not on file [place] Exposure to SARS-CoV -2 (event) Not sure [place] Start: 08-09-2023 End: 06-22-2024 Sex Assigned At [facility] Start: 08-09-2023 End: 08-11-2023 Alcohol intake [facility] Has the [employer] [place], or [employer] threatened to shut off services in your home in past 12Mo No [facility] Are you now , , , , never or living with a partner? [facility] How often to you hav e a drink containing alcohol? Monthly or less [facility] How many standard drinks containing alcohol do you have on a typical day? 1 or 2 [facility] How often do you hav e 6 or more drinks on 1 occasion? Never [facility] How hard is it for y ou to pay for the very basics like food, housing, medical care, and heating Not hard at all [facility] Do you feel stress - tense, restless, nervous, or anxious, or unable to sleep at night because your mind is troubled all the time - these days [OSQ] Not at all [facility] Start: 03-17-2019 Alcohol Comment occasionally [facility] Start: 10-28-2023 Tobacco smoking status NHIS Ex-smoker [facility] History of tobacco use Current smoker [facility] History of tobacco use Cigarette Smoker [facility] Start: 06-17-2023 Tobacco Comment Patient states she was a chain smoker for 4 months decades ago [facility] Start: 1955 Sex Assigned At Female [facility] Start: 06-22-2023 Gender identity Identifies as female gender (finding) [facility] Start: 06-22-2023 Sexual orientation Heterosexual (finding) [facility] How often to you hav e a drink containing alcohol? 2-4 times a month [facility] Start: 05-01-2015 Sex Female (finding) [facility] Medical Equipment Procedure Code Equipment Code Equipment Origin al Text Equipment Identifier Dates Plate Bn 301mm C rv 14 Hl Va Lcp Cmbn Cndrl Lt Ss 4.5mm Scr - [id number] Start: 06-03-2024 Screw Bn 38mm 5m m [facility] Va Lck Strdr Ss T25 Ns - [id number] Start: 06-03-2024 Screw Bn 42mm [address]m m [address] Lck Va Strdr Ss T25 Ns Crv Cndrl Plt - [id number] Start: 06-03-2024 Screw Bn 46mm [address]m [address] Lck Va Strdr Ss T25 Ns Crv Cndrl Plt - [id number] Start: 06-03-2024 Screw Bn 75mm [address]m m [address] Va Lck Strdr - [id number] Start: 06-03-2024 Screw Bn 80mm 5m m [address] Lck Va Strdr Ss T25 Ns Crv Cndrl Plt Sy - [id number] Start: 06-03-2024 Screw Bn 85mm [address]m m [address] Lck Va Strdr Ss T25 Ns - [id number] Start: 06-03-2024 Screw Bn 38mm 4. [address] Lg Hex Sckt Nitish Ss 3.5mm Ns Lg - [id number] Start: 06-03-2024 Goals Date Patient Goal Desired Activity /State Personal health goal Comment on above: Formatting of this n ote might be different from the original. Evaluation of progress towards goal: safe transition from hospital to home alone with friends/family support. Personal health goal Comment on above: Formatting of this n ote might be different from the original. Evaluation of progress towards goal: Current Discharge plan: SNF for short term rehab Clinical Notes 05-27-2023 to 07-20-2024 Rafat Sepulvead MD - 07/20/2024 2:00 PM EDTPatient InstructionsTelephone Encounter - Marie Laughlin - 07/06/2024 2:56 PM EDTTelephone Encounter - STALIN Valentine - 07/06/2024 2:56 PM EDT Note Date & Type Note Facility 07-20-2024 History of Present illness Narrative Images from the original note were not included. CC: Closed displaced supracondylar fracture of distal end of left femur without intracondylar extension with routine healing. Subjective: HPI DOS: 06/03/2024, 6 weeks out. Keila Garcia is a 68 y.o. female who is here today for a follow-up visit. Patient was last seen in-clinic on 06/22/2024; at this time, patient was instructed to maintain her NWB status on the LLE while advancing her efforts at mobilization. Patient was additionally instructed to begin supplementation with vitamin-D and calcium, and was provided a referral to the osteoporosis/fracture clinic. Patient reports that she is doing well overall, endorsing that her pain is well controlled. Patient reports that she is working with PT/OT five times weekly, and endorses that she feels as though she continues to improve. Patient reports that she just had her lymphedema machine delivered, and endorses that she is excited to start using it. Patient reports that she has not yet been contacted by the osteoporosis/fracture clinic. Patient is non weight-bearing on the LLE. She is on chronic Coumadin per her primary team. Denies fever/chills/numbness/tingling. Past Medical, Surgical, and Family Histories: Were reviewed during this visit. Social History Occupational History Not on file Tobacco Use Smoking status: Never Smokeless tobacco: Never Vaping Use Vaping status: Never Used Substance and Sexual Activity Alcohol use: Yes Alcohol/week: 1.0 standard drink of alcohol Types: 1 Glasses of wine per week Comment: occasionally Drug use: Never Sexual activity: Defer Comment: not reviewd at this visit Medications & Allergies: Were reviewed at during this visit. Objective: Physical Exam General: Well-developed well-nourished Mentation: Alert and oriented. Extremity Exam: Left Knee/Hip Inspection: Skin C/D/I. Incisions well healed/approximated, no evidence of wound failure. Appreciated chronic 2-3+ peripheral edema- patient wearing Farrow wraps. ROM: Internal rotation 10-15 degrees. External rotation 10-15 degrees. No pain with log roll. Neurovascular Motor: intact EHL, FHL, DF, PF Sensation: intact to light touch sural, saphenous, deep peroneal, superficial peroneal 2+ DP IMAGING: I personally viewed X-ray images of left femur, which demonstrate retained hardware without evidence of failure, continued interval healing of fractures. There is some evidence of increased consolidation and osseous formation though complete bridging is not yet visualized. Will review and confirm findings with the radiologist report when available. Diagnosis: Closed displaced supracondylar fracture of distal end of left femur without intracondylar extension with routine healing, subsequent encounter. Plan: Patient to maintain non-weightbearing status on the left lower extremity- patient permitted to perform range of motion at the left hip and knee, but exercises should not be performed against resistance. Patient to continue PT/OT at facility. Patient to continue Coumadin per primary team and continue to monitor INR. Patient to continue supplementation with calcium /vitamin-D, and follow up in osteoporosis and fracture prevention clinic as able. Patient to continue pain management with [id number] Tylenol as needed. Patient permitted to utilize home lymphedema pump per primary team. Patient to follow up in 6 weeks for repeat clinical / radiographic check; recommend patient remain at facility until weightbearing can be safely advanced. Windy Marte PA-C ATTENDING STATEMENT: I, Rafat Sepulveda MD, personally performed the face to face evaluation on this patient. I discussed with the patient and confirmed the accuracy and completeness of the aforementioned history prepared by the advance practice provider, and I personally performed the clinical examination of the patient. I discussed the treatment plan with the patient. She is progressing quite well. Incisions and wounds are all well healed. She has been maintaining nonweightbearing status and I think that this should continue given her fracture pattern. Radiographs personally viewed agree with the findings as above. Plan for follow-up as detailed in a proximally 6 weeks. Will repeat radiographs of her left femur at that time.. RAFAT SEPULVEDA MD [employer] documented in this encounter [employer] 07-20-2024 Instructions Windy Marte PA-C - 07/20/2024 2:00 PM EDT Patient Education Calcium and Vitamin D (YANETH see um & VYE ta marbella riddle) Brand Names: US Nathaniel-Citrate Plus Vitamin D [OTC]; Calcet Petites [OTC]; Calcitrate [OTC] [DSC]; Calcium 500/D [OTC] [DSC]; Calcium 600+D [OTC]; Calcium 600-D [OTC] [DSC]; Calcium Citrate + D3 Maximum [OTC]; Calcium High Potency/Vitamin D [OTC]; Calcium Plus Vitamin D [OTC]; Calcium+D3 [OTC]; Caltrate 600+D3 Soft [OTC]; Caltrate 600+D3 [OTC]; Caltrate Gummy Bites [OTC]; Todd Calcium +D [OTC] [DSC]; Liquid Calcium with D3 [OTC]; Liquid Calcium/Vitamin D [OTC]; Os-Nathaniel Calcium + D3 [OTC]; Os-Nathaniel Extra D3 [OTC]; Os-Nathaniel [OTC]; Oysco 500+D [OTC]; Oyster Calcium + D [OTC] [DSC]; Oyster Shell Calcium + D [OTC]; Oyster Shell Calcium + D3 [OTC]; Oyster Shell Calcium 250+D [OTC]; Oyster Shell Calcium 500 + D [OTC]; Oyster Shell Calcium 500+D [OTC]; Oyster Shell Calcium Plus D [OTC]; Oyster Shell Calcium/Vit D [OTC]; Pronutrients Calcium+D3 [OTC]; Dannielle-Calcium [OTC] [DSC] What is this drug used for? It is used to help growth and good health. It is used to prevent or treat soft, brittle bones (osteoporosis). It is used to treat or prevent low calcium levels. It may be given to you for other reasons. Talk with the doctor. What do I need to tell my doctor BEFORE I take this drug? If you are allergic to this drug; any part of this drug; or any other drugs, foods, or substances. Tell your doctor about the allergy and what signs you had. If you have any of these health problems: High calcium levels, high vitamin D levels, kidney stones, or low phosphate levels. This is not a list of all drugs or health problems that interact with this drug. Tell your doctor and pharmacist about all of your drugs (prescription or OTC, natural products, vitamins) and health problems. You must check to make sure that it is safe for you to take this drug with all of your drugs and health problems. Do not start, stop, or change the dose of any drug without checking with your doctor. What are some things I need to know or do while I take this drug? Tell all of your health care providers that you take this drug. This includes your doctors, nurses, pharmacists, and dentists. If you are allergic to tartrazine (FD&C Yellow No. 5), talk with your doctor. Some products have tartrazine. This drug may prevent other drugs taken by mouth from getting into the body. If you take other drugs by mouth, you may need to take them at some other time than this drug. Talk with your doctor. Follow the diet plan that your doctor told you about. If you have phenylketonuria (PKU), talk with your doctor. Some products have phenylalanine. Tell your doctor if you are , plan on getting , or are breast-feeding. You will need to talk about the benefits and risks to you and the baby. What are some side effects that I need to call my doctor about right away? WARNING/CAUTION: Even though it may be rare, some people may have very bad and sometimes deadly side effects when taking a drug. Tell your doctor or get medical help right away if you have any of the following signs or symptoms that may be related to a very bad side effect: Signs of an allergic reaction, like rash; hives; itching; red, swollen, blistered, or peeling skin with or without fever; wheezing; tightness in the chest or throat; trouble breathing, swallowing, or talking; unusual hoarseness; or swelling of the mouth, face, lips, tongue, or throat. Signs of high calcium levels like weakness, confusion, feeling tired, headache, upset stomach and throwing up, constipation, or bone pain. What are some other side effects of this drug? All drugs may cause side effects. However, many people have no side effects or only have minor side effects. Call your doctor or get medical help if any of these side effects or any other side effects bother you or do not go away: Upset stomach or throwing up. Constipation. These are not all of the side effects that may occur. If you have questions about side effects, call your doctor. Call your doctor for medical advice about side effects. You may report side effects to your national health agency. You may report side effects to the FDA at . You may also report side effects at https://www.fda.gov/medwatch. How is this drug best taken? Use this drug as ordered by your doctor. Read all information given to you. Follow all instructions closely. All products: Take this drug with food. Chewable tablets: Chew well before swallowing. Some brands may be swallowed whole or dissolved in your mouth. Talk to your pharmacist if you have questions. Powder: Mix with food or liquids before taking. Liquid: Measure liquid doses carefully. Use the measuring device that comes with this drug. If there is none, ask the pharmacist for a device to measure this drug. Some of these drugs need to be shaken before use. Be sure you know if this product needs to be shaken before using it. What do I do if I miss a dose? Take a missed dose as soon as you think about it. If it is close to the time for your next dose, skip the missed dose and go back to your normal time. Do not take 2 doses at the same time or extra doses. How do I store and/or throw out this drug? All products: Store at room temperature in a dry place. Do not store in a bathroom. Keep all drugs in a safe place. Keep all drugs out of the reach of children and pets. Throw away unused or drugs. Do not flush down a toilet or pour down a drain unless you are told to do so. Check with your pharmacist if you have questions about the best way to throw out drugs. There may be drug take-back programs in your area. Liquid: After opening, be sure you know how long the product is good for and how to store it. Ask the doctor or pharmacist if you are not sure. General drug facts If your symptoms or health problems do not get better or if they become worse, call your doctor. Do not share your drugs with others and do not take anyone else's drugs. Some drugs may have another patient information leaflet. If you have any questions about this drug, please talk with your doctor, nurse, pharmacist, or other health care provider. Some drugs may have another patient information leaflet. Check with your pharmacist. If you have any questions about this drug, please talk with your doctor, nurse, pharmacist, or other health care provider. If you think there has been an overdose, call your poison control center or get medical care right away. Be ready to tell or show what was taken, how much, and when it happened. Consumer Information Use and Disclaimer This generalized information is a limited summary of diagnosis, treatment, and/or medication information. It is not meant to be comprehensive and should be used as a tool to help the user understand and/or assess potential diagnostic and treatment options. It does NOT include all information about conditions, treatments, medications, side effects, or risks that may apply to a specific patient. It is not intended to be medical advice or a substitute for the medical advice, diagnosis, or treatment of a health care provider based on the health care provider's examination and assessment of a patient's specific and unique circumstances. Patients must speak with a health care provider for complete information about their health, medical questions, and treatment options, including any risks or benefits regarding use of medications. This information does not endorse any treatments or medications as safe, effective, or approved for treating a specific patient. [employer] and its affiliates disclaim any warranty or liability relating to this information or the use thereof. The use of this information is governed by the Terms of Use, available at https://www.woltersYoonouwer.com/en/know/ rvifwyhk-ultpadojybyqe-ggntd. Last Reviewed Date 2021-02-20 Copyright 2021 [employer] and its affiliates and/or licensors. All rights reserved. documented in this encounter [employer] 07-06-2024 Miscellaneous Notes Patient called in stated that Dr. Sepulveda repaired her femur she's supposed to be NWB on that leg for 4 months, she already has her toy out and she keeps swelling from her lymphedema. Patient stated that she has a lymphedema pump that goes from the bottom of her leg up to her thigh and wanted to know if she is allowed to use that on her surgical leg. Patient would like a call back at [phone] The patient may use her lymphedema pump on her surgical leg. She is cautioned that if she has increased discomfort because of the pressure from the pump she should discontinue use on that leg. Will see the patient back at her scheduled postoperative appointment. documented in this encounter [employer] 07-06-2024 Telephone encounter Note Patient called in stated that Dr. Sepulveda repaired her femur she's supposed to be NWB on that leg for 4 months, she already has her toy out and she keeps swelling from her lymphedema. Patient stated that she has a lymphedema pump that goes from the bottom of her leg up to her thigh and wanted to know if she is allowed to use that on her surgical leg. Patient would like a call back at [phone] [employer] 07-06-2024 Telephone encounter Note The patient may use her lymphedema pump on her surgical leg. She is cautioned that if she has increased discomfort because of the pressure from the pump she should discontinue use on that leg. Will see the patient back at her scheduled postoperative appointment. [employer] Work Phone: 05-04-2024 Note HNO ID: [id number] Author: AYAD WILKERSON MD Service: ? Author Type: Physician Type: Progress Notes Filed: 05/04/2024 15:04 Note Text: UNIVERSAL PROTOCOL / SAFETY CHECKLIST Procedure to be Performed: EMG Sign In: A Moment of CARE was completed. Personnel directly involved with the procedure wore the appropriate PPE (Personal Protective Equipment). Patient/Surrogate Stated/Verified: PATIENT VERIFIED(optional for EMERGENT procedures): Patient name, Date of , Relevant allergies, and The intended procedure Time Out Communication: Intended patient and procedure match the source documents. Consent documented and matches the intended procedure. Correct side/site marked and visible. Sign Out: SIGN OUT (optional for EMERGENT procedures): Post-procedure follow-up management communicated and Plan of Care Visit completed when applicable. Nu Baker roll on workermarleni Wilkerson MD [facility] 05-04-2024 History of Present illness Narrative UNIVERSAL PROTOCOL / SAFETY CHECKLIST Procedure to be Performed: EMG Sign In: A Moment of CARE was completed. Personnel directly involved with the procedure wore the appropriate PPE (Personal Protective Equipment). Patient/Surrogate Stated/Verified: PATIENT VERIFIED(optional for EMERGENT procedures): Patient name, Date of , Relevant allergies, and The intended procedure Time Out Communication: Intended patient and procedure match the source documents. Consent documented and matches the intended procedure. Correct side/site marked and visible. Sign Out: SIGN OUT (optional for EMERGENT procedures): Post-procedure follow-up management communicated and Plan of Care Visit completed when applicable. Nu Baker roll on workermarleni Wilkerson MD documented in this encounter [facility] 05-02-2024 History of Present illness Narrative Radiology Service Progress Note DATE OF SERVICE: May 02, 2024 TIME: 1:32 PM PATIENT IDENTITY VERIFICATION COMPLETED USING TWO (2) STANDARD IDENTIFIERS: Name and Date of confirmed by patient verbally. FALL SCREENING: Has the patient had 2 falls in the last year or 1 fall with injury or currently using an Ambulatory Assistive Device (Walker, Cane, Wheelchair, Crutches, etc.)? Yes, Patient High Risk for Falls What interventions were put in place to prevent falls during this visit? Instructed Patient to Call for Help if Needed, Offered Assistance with Transfers/Clothing, Instructed Patient to Remain Seated (Not on Exam Table) Until Exam, Increased Observations by Caregivers, and Escorted to/from Restroom PATIENT GENDER DATA: Female. status: : No status: NO. PATIENT RELEVANT IMPLANT DATA REVIEWED: Yes PATIENT PRESENTS WITH AN IMPLANTABLE OR ATTACHED COMMUNITY SUPPORT SPECIALIST: No ALLERGIES: Reviewed and unchanged CONTRAST ALLERGY: NO. EXAM: MRI - CONTRAST TYPE: GROUP II PERIPHERAL IV DATA: Ambulatory: A peripheral IV was started in the Right antecubital site with a Butterfly: 23 gauge. RADIOLOGY DEPARTMENT: MR; Exam(s) Completed: Head: Multiple Sclerosis Central Vein Sign SIGNATURE: GIDEON Howe) PATIENT NAME: Keila Garcia DATE: May 02, 2024 TIME: 1:32 PM documented in this encounter [facility] 05-02-2024 Note HNO ID: [id number] Author: NATE LONDONO RT(R) Service: Radiology Author Type: Technologist Type: Progress Notes Filed: 05/02/2024 13:33 Note Text: Radiology Service Progress Note DATE OF SERVICE: May 02, 2024 TIME: 1:32 PM PATIENT IDENTITY VERIFICATION COMPLETED USING TWO (2) STANDARD IDENTIFIERS: Name and Date of confirmed by patient verbally. FALL SCREENING: Has the patient had 2 falls in the last year or 1 fall with injury or currently using an Ambulatory Assistive Device (Walker, Cane, Wheelchair, Crutches, etc.)? Yes, Patient High Risk for Falls What interventions were put in place to prevent falls during this visit? Instructed Patient to Call for Help if Needed, Offered Assistance with Transfers/Clothing, Instructed Patient to Remain Seated (Not on Exam Table) Until Exam, Increased Observations by Caregivers, and Escorted to/from Restroom PATIENT GENDER DATA: Female. status: : No status: NO. PATIENT RELEVANT IMPLANT DATA REVIEWED: Yes PATIENT PRESENTS WITH AN IMPLANTABLE OR ATTACHED COMMUNITY SUPPORT SPECIALIST: No ALLERGIES: Reviewed and unchanged CONTRAST ALLERGY: NO. EXAM: MRI - CONTRAST TYPE: GROUP II PERIPHERAL IV DATA: Ambulatory: A peripheral IV was started in the Right antecubital site with a Butterfly: 23 gauge. RADIOLOGY DEPARTMENT: MR; Exam(s) Completed: Head: Multiple Sclerosis Central Vein Sign SIGNATURE: RT Carley(R) PATIENT NAME: Keila Garcia DATE: May 02, 2024 TIME: 1:32 PM [facility] 03-23-2024 Instructions Bib Alva MD - 03/23/2024 3:35 PM EDT Schedule an MRI of the brain at the [facility]. Schedule an EMG/NCS. [facility] Follow up with Dr. Alva in several months after the MRI and EMG/NCS are complete. documented in this encounter [facility] 03-23-2024 History of Present illness Narrative Images from the original note were not included. [facility] NEW PATIENT EVALUATION/CONSULTATION Referral source: Loreta Mcmillan, [place] [address] Also followed by: Patient Care Team: Javan Julien MD as PCP - General (Neurology) Loreta Mcmillan CNP as Referring (Family Medicine) PRINCIPAL NEUROLOGIC DIAGNOSIS: White matter abnormality MRI brain, Cervical spondylosis with myelopathy DISEASE SUMMARY Date of onset: 2015 (approx) Date of diagnosis of MS: work up pending Disease course at onset: Progressive without relapses Current disease course: Stable Previous disease therapies: NA Current disease therapy: NA Most recent MRI brain: 09/01/2019 Most recent MRI cervical spine: 04/15/2022 Most recent MRI thoracic spine: 04/15/2022 Most recent MRI lumbar spine: 04/15/2022 CSF: NA JCV serology result and date: NA HISTORY OF ILLNESS: An opinion on this 68-year-old woman was requested by the referring physician for a second opinion on abnormal brain MRI. The patient was unaccompanied. Previous records (physician notes, laboratory reports, and radiology reports) and imaging studies were reviewed and summarized. My recommendations will be communicated back to the patient's physician(s) by mail. Follow-up is expected to be with me at the [facility]. PRESENTING HISTORY: 06/02/[address] Capellan: Approximately 20 years ago in the context of migraine headaches she underwent a brain MRI and the doctor at that time told her that there was concern for demyelination on the brain MRI. The last couple of years she has been falling, no clear triggers. In some instances she doesn't get a warning she is going to fall and she just goes down. She does not feel palpitations or black out. She has always had problems with leg weakness and has had lymphedema in her legs. She has used a rollator for the last year because of instability. She was previously using a cane for the prior 10 years. During that time she estimated that she fell twice over 10 years, now is falling more frequently. Initially she saw an orthopedist, had some interventions done on back, participated in aquatherapy. Bladder control also became a progressive issue, and her urologist referred her to Dr. Julien. An MRI of the brain, particularly changes in the [id number] interval, reportedly raised suspicion for MS. One of her good friends has MS and symptoms of weakness in legs, bladder issues, dropping objects, word finding difficulties resonated with her. She has been taking tramadol daily as a preventative for migraines. She takes butalbitol as an abortive for migraine. Multiple medical comorbidities including morbid obesity, paroxysmal afib on warfarin, hypertention, chronic kidney disease. She is currently in a bariatric program to get a gastric sleeve surgery done in [place]. No LP was performed because she is on Coumadin. The above history was reviewed and verified as complete and accurate. INTERVAL HISTORY: Her symptoms have been largely stable since her last visit. Underwent bariatric surgery 2017. Lost 150 lbs. Current Symptoms: Recurrent falls. No preceding symptoms. Uses a walker. Urinary incontinence. Wears pads daily. Intermittent upper extremity weakness. Occasional difficulty reaching above her head. Some hip weakness. Difficulty getting up when she falls. Lymphedema. Squeezing pain in the feet out of proportion to the level of swelling. PAST HISTORY: Past Medical and Surgical History: Migraine headaches Obesity s/p gastric sleeve pAF on warfarin Hypertension CKD Tonsillectomy and uvuloplasty Cholecystectomy TKR bilateral has a current medication list which includes the following prescription(s): aspirin, enteric coated, acetaminophen 325 mg-caffeine 40 mg-butalbital 50 mg, cinnamon bark, famotidine, flecainide, fluoxetine, gabapentin, magnesium, metoprolol succinate er, omega-3/dha/epa/fish oil, [id number]-[id number] acid, vit c,j-xu-yvcwe-lutein-zeaxan, rosuvastatin, solifenacin, topiramate, warfarin, and warfarin. Social History Tobacco Use Smoking status: Never Smokeless tobacco: Never Family History: Limited due to adoption Mother of metastatic breast cancer PHYSICAL EXAM: BP 105/71 Pulse 80 Ht 167.6 cm (5' 6 ) Wt 87.5 kg (193 lb) BMI 31.15 kg/m Hair, skin, nails, and joints were normal. Neck was supple without Lhermitte's phenomenon. There was no peripheral edema. The patient was alert and oriented to person, place, and time with normal language, attention and concentration, recent and remote memory, praxis, and intellectual function. Affect was normal. The patient did not appear depressed. Ocular ductions were full without nystagmus or ataxia. Facial sensation was normal. Muscles of mastication and facial expression moved normally. Hearing was impaired finger rub in the left ear. Palatal movements were normal. Sternocleidomastoid and trapezius power were normal. Tongue movements were normal. There was no dysarthria. Motor Examination: Right Upper Extremity: Left Upper Extremity: Deltoid 4/5 Deltoid 4/5 Biceps 5/5 Biceps 5/5 Triceps 5/5 Triceps 5/5 Wrist extensors 5/5 Wrist extensors 5/5 Wrist flexors 5/5 Wrist flexors 5/5 Dorsal interossei 5/5 Dorsal interossei 5/5 Abductor pollicis 5/5 Abductor pollicis 5/5 Tone (Enzo scale) 0 Tone (Enzo scale) 0 Right Lower Extremity: Left Lower Extremity: Hip flexors 4/5 Hip flexors 4/5 Knee flexors 5/5 Knee flexors 5/5 Knee extensors 5/5 Knee extensors 5/5 Dorsiflexors 5/5 Dorsiflexors 5/5 Plantarflexors 5/5 Plantarflexors 5/5 Tone (Enzo scale) 0 Tone (Enzo scale) [address] on formal strength testing. Reflexes: brachioradialis +++ brachioradialis +++ biceps +++ biceps +++ triceps ++ triceps ++ patellar +++ patellar +++ Achilles ++ Achilles ++ Juarez's sign absent Juarez's sign absent clonus absent clonus absent plantar response down plantar response equivocal Coordination testing in the arms and legs was performed including wkvhn-mh-uiegv, rapid-alternating, and fine movements. Rapid movements were smooth with good divya and there was no dysmetria or ataxia. HKS limited by pyramidal weakness. Sensory examination: Light touch: Normal all four extremities. Standard gait was ataxic with bilateral hip flexion weakness. REVIEW OF RECORDS: 05/12/2018 MR Brain W/O IVCON ([facility]): Findings: There is no significant difference compared to prior exam. The ventricular system and cortical sulci are appropriate for patient's age group. There are multiple deep and periventricular white matter foci of increased FLAIR signal more concentrated at the occipital lobe and centrum semiovale bilaterally. They demonstrate interval increase in size and number compared to prior exam. They demonstrate perpendicular distribution and pericallosal distribution suggestive of demyelinating plaques and multiple sclerosis. There is no localized area of restricted diffusion to support acute or subacute ischemic insult. There is no gross intra-axial or extra-axial fluid accumulation Pituitary stalk is midline. Pituitary gland and cerebellopontine angle are unremarkable IMPRESSION: There is a interval worsening in the deep and periventricular white matter disease with distribution suggestive of demyelinating plaques and multiple sclerosis versus small vessel disease. 05/25/2018 MR C-spine W/O IVCON ([facility]): No white matter cord lesion is seen no contrast was given as ordered.. Impression: * Diffuse thickening of the PLL is noted. In addition there is spondylosis and degenerative disc disease. Central canal stenosis is appreciated at C5-6 and C4-5. No acute process. 05/25/2018 MR T-spine W/O IVCON ([facility]): Findings: The thoracic spinal cord has a normal signal appearance and caliber size. No cord expansion is appreciated. Position of the conus medullaris is normal. No contrast was given however I do not see any focal white matter signal alteration. Breathing motion artifact does affect the study.. Impression: 1. Subacute appearing fracture the superior endplate of T2. Please correlate with point tenderness. 2. Disc herniation of midline at T8-9. This does cause ventral cord flattening, mild stenosis. 3. Smaller focal disc protrusion midline is appreciated C5-6.. REVIEW OF IMAGING STUDIES: I personally reviewed the following images: 05/12/2018 MR Brain W/O IVCON: Non-specific white matter changes most suggestive of chronic microvascular ischemia. 05/25/2018 MR C-spine W/O IVCON: No cord signal abnormality. Multilevel degenerative changes. 05/25/2018 MR T-spine W/O IVCON: No definite cord signal abnormality. Multilevel degenerative changes. ASSESSMENT: Keila Garcia is a 68-year-old woman with a history of multiple vascular risk factors who initially presented to the [facility] in May 2018 for further evaluation of white matter abnormality on her MRI of the brain. Based on the appearance, it's more suggestive of chronic microvascular ischemia. She is due for repeat imaging to look for evidence of interval progression. I will get a 7T MR Brain to better evaluate for central vein sign. Regarding the cause of her difficulty walking, I suspect myelopathy due to degenerative disc disease is a major contributing factor. There may also be a component of superimposed peripheral neuropathy based on her recent symptoms. PLAN: Upload 2021 MRIs of the cervical and thoracic spine. 7T MR Brain W/WO IVCON EMG/NCS [facility] Office Visit on 03/23/24 MRI 7T BRAIN WO/W IVCON MRI CERVICAL SPINE WO/W IVCON *Canceled* MRI THORACIC SPINE WO/W IVCON *Canceled* CONSULT TO SP[facility] EMG(NEURO/NI) The chart was reviewed for possible participation in the following studies: NA I spent a total of 60 minutes on the date of the service which included preparing to see the patient, ocya-mx-rivh patient care, completing clinical documentation, obtaining and/or reviewing separately obtained history, performing a medically appropriate examination, counseling and educating the patient/family/caregiver, ordering medications, tests, or procedures, independently interpreting results (not separately reported), and communicating results to the patient/family/caregiver. Bib Alva MD [facility] for Multiple Sclerosis documented in this encounter [facility] 03-23-2024 Note HNO ID: [id number] Author: BIB ALVA MD Service: ? Author Type: Physician Type: Progress Notes Filed: 03/23/2024 15:56 Note Text: [facility] NEW PATIENT EVALUATION/CONSULTATION Referral source: Loreta Mcmillan, [facility] [id number] [place] [id number] Also followed by: Patient Care Team: Javan Julien MD as PCP - General (Neurology) Loreta Mcmillan CNP as Referring (Family Medicine) PRINCIPAL NEUROLOGIC DIAGNOSIS: White matter abnormality MRI brain, Cervical spondylosis with myelopathy DISEASE SUMMARY Date of onset: 2015 (approx) Date of diagnosis of MS: work up pending Disease course at onset: Progressive without relapses Current disease course: Stable Previous disease therapies: NA Current disease therapy: NA Most recent MRI brain: 09/01/2019 Most recent MRI cervical spine: 04/15/2022 Most recent MRI thoracic spine: 04/15/2022 Most recent MRI lumbar spine: 04/15/2022 CSF: NA JCV serology result and date: NA HISTORY OF ILLNESS: An opinion on this 68-year-old woman was requested by the referring physician for a second opinion on abnormal brain MRI. The patient was unaccompanied. Previous records (physician notes, laboratory reports, and radiology reports) and imaging studies were reviewed and summarized. My recommendations will be communicated back to the patient's physician(s) by mail. Follow-up is expected to be with me at the [facility]. PRESENTING HISTORY: 06/02/[address] [place] [address] Capellan: Approximately 20 years ago in the context of migraine headaches she underwent a brain MRI and the doctor at that time told her that there was concern for demyelination on the brain MRI. The last couple of years she has been falling, no clear triggers. In some instances she doesn't get a warning she is going to fall and she just goes down. She does not feel palpitations or black out. She has always had problems with leg weakness and has had lymphedema in her legs. She has used a rollator for the last year because of instability. She was previously using a cane for the prior 10 years. During that time she estimated that she fell twice over 10 years, now is falling more frequently. Initially she saw an orthopedist, had some interventions done on back, participated in aquatherapy. Bladder control also became a progressive issue, and her urologist referred her to Dr. Julien. An MRI of the brain, particularly changes in the 2749-2603 interval, reportedly raised suspicion for MS. One of her good friends has MS and symptoms of weakness in legs, bladder issues, dropping objects, word finding difficulties resonated with her. She has been taking tramadol daily as a preventative for migraines. She takes butalbitol as an abortive for migraine. Multiple medical comorbidities including morbid obesity, paroxysmal afib on warfarin, hypertention, chronic kidney disease. She is currently in a bariatric program to get a gastric sleeve surgery done in [place]. No LP was performed because she is on Coumadin. The above history was reviewed and verified as complete and accurate. INTERVAL HISTORY: Her symptoms have been largely stable since her last visit. Underwent bariatric surgery 2017. Lost 150 lbs. Current Symptoms: Recurrent falls. No preceding symptoms. Uses a walker. Urinary incontinence. Wears pads daily. Intermittent upper extremity weakness. Occasional difficulty reaching above her head. Some hip weakness. Difficulty getting up when she falls. Lymphedema. Squeezing pain in the feet out of proportion to the level of swelling. PAST HISTORY: Past Medical and Surgical History: Migraine headaches Obesity s/p gastric sleeve pAF on warfarin Hypertension CKD Tonsillectomy and uvuloplasty Cholecystectomy TKR bilateral has a current medication list which includes the following prescription(s): aspirin, enteric coated, acetaminophen 325 mg-caffeine 40 mg-butalbital 50 mg, cinnamon bark, famotidine, flecainide, fluoxetine, gabapentin, magnesium, metoprolol succinate er, omega-3/dha/epa/fish oil, [id number] acid, vit c,x-kn-shjqc-lutein-zeaxan, rosuvastatin, solifenacin, topiramate, warfarin, and warfarin. Social History Tobacco Use Smoking status: Never Smokeless tobacco: Never Family History: Limited due to adoption Mother of metastatic breast cancer PHYSICAL EXAM: BP 105/71 Pulse 80 Ht 167.6 cm (5' 6 ) Wt 87.5 kg (193 lb) BMI 31.15 kg/m? Hair, skin, nails, and joints were normal. Neck was supple without Lhermitte's phenomenon. There was no peripheral edema. The patient was alert and oriented to person, place, and time with normal language, attention and concentration, recent and remote memory, praxis, and intellectual function. Affect was normal. The patient did not appear depressed. Ocular ductions were full without nystagmus or ataxia. Facial sensation was normal. M (more content not included)... [facility] 12-18-2023 History of Present illness Narrative Keila Garcia had concerns including PVD. HPI 1 year follow-up Reports gradual decrease with distance/near vision since her last visit despite her recent update to spectacle correction -- left > right. States her visual floaters are intermittent/ less active or slower -- appear unchanged in size/number. States the right eye seems to be the eye with more symptomatic with floaters when compared to the left. States the eyes seem more itching -- occasionally will get a burst blood vessel with the different itch sensation /hard blinking per pt -- denies pain and states the itch that causes the redness is different from the dryness itch. She states she is using AT about every 3 days or so. Notes an episode of a flash a few months ago ~ May 2023 -- described as like a brief lightening flash with no pain. Denies shade and noticeable peripheral vision loss at this time. Last edited by JOSE ENRIQUE Sheehan on 12/18/2023 2:25 PM. ROS Positive for: Cardiovascular (hypertension), Eyes, Heme/Lymph (borderline anemia) Negative for: Constitutional, Gastrointestinal, Neurological, Skin, Genitourinary, Musculoskeletal, HENT, Endocrine, Respiratory, Psychiatric, Allergic/Imm Last edited by JOSE ENRIQUE Sheehan on 12/18/2023 2:13 PM. No current outpatient medications on file. (Ophthalmic Drugs) No current facility-administered medications for this visit. (Ophthalmic Drugs) Current Outpatient Medications (Other) Medication Sig acetaminophen (TYLENOL EXTRA STRENGTH) 500 mg tablet Take 2 tablets (1,000 mg total) by mouth every 6 (six) hours as needed for pain. amLODIPine (NORVASC) 5 mg tablet Take 2 tablets (10 mg total) by mouth daily with breakfast. cyanocobalamin (vitamin B-12) 100 MCG tablet Take 10 tablets (1,000 mcg total) by mouth in the morning. docusate sodium (COLACE) 100 mg capsule 1 capsule as needed Orally Once a day for 30 day(s) DULoxetine (CYMBALTA) 60 mg capsule Take 1 capsule (60 mg total) by mouth in the morning. ferrous sulfate 325 (65 FE) mg tablet Take 1 tablet (325 mg total) by mouth daily with breakfast. flecainide (TAMBOCOR) 100 mg tablet Take 1 tablet (100 mg total) by mouth every 12 (twelve) hours. furosemide (LASIX) 20 mg tablet Take 1 tablet (20 mg total) by mouth daily. hydrALAZINE (APRESOLINE) 50 mg tablet Take 1 tablet (50 mg total) by mouth 3 (three) times a day. losartan (COZAAR) 25 mg tablet Take 1 tablet (25 mg total) by mouth in the morning. melatonin 10 mg tablet Take 10 mg by mouth nightly. oxybutynin XL (DITROPAN XL) 15 mg 24 hr tablet Take 1 tablet (15 mg total) by mouth in the morning. pantoprazole (PROTONIX) 40 mg EC tablet Take 1 tablet (40 mg total) by mouth in the morning. rosuvastatin (CRESTOR) 5 mg tablet Take 1 tablet (5 mg total) by mouth in the evening. topiramate (TOPAMAX) 50 mg tablet TAKE ONE TABLET BY MOUTH TWICE A DAY vit A/vit C/vit E/zinc/copper (PRESERVISION AREDS ORAL) Take 1 tablet by mouth in the morning. warfarin (COUMADIN) 5 mg tablet Take 1 tablet (5 mg total) by mouth in the evening. as directed by Natalie BAXTER (Medication Therapy Management). (Patient taking differently: Take 1 tablet (5 mg total) by mouth in the evening. as directed by Natalie BAXTER (Medication Therapy Management). Take 5mg warfarin QD Thursday, Thursday, Thursday, and Thursday. Take 2.5mg warfarin QD Thursday, Thursday, and . .) No current facility-administered medications for this visit. (Other) Social History Socioeconomic History Marital status: Single Spouse name: Not on file Number of children: Not on file Years of education: Not on file Highest education level: Not on file Occupational History Not on file Tobacco Use Smoking status: Never Smokeless tobacco: Never Vaping Use Vaping Use: Never used Substance and Sexual Activity Alcohol use: Yes Alcohol/week: 1.0 standard drink of alcohol Types: 1 Glasses of wine per week Comment: occasionally Drug use: Never Sexual activity: Not on file Comment: not reviewd at this visit Other Topics Concern Not on file Social History Narrative Not on file Social Determinants of Health Financial Resource Strain: Low Risk (08/09/2023) Overall Financial Resource Strain (CARDIA) Difficulty of Paying Living Expenses: Not hard at all Food Insecurity: No Food Insecurity (12/18/2023) Hunger Screening Food Insecurity - Worry: Never True Food Insecurity - Inability: Never True Transportation Needs: No Transportation Needs (08/09/2023) PRAPARE - Transportation Lack of Transportation (Medical): No Lack of Transportation (Non-Medical): No Physical Activity: Inactive (08/09/2023) Exercise Vital Sign Days of Exercise per Week: 0 days Minutes of Exercise per Session: 0 min Stress: No Stress Concern Present (08/09/2023) [employer] [place] [employer] - Occupational Stress Questionnaire Feeling of Stress : Not at all Social Connections: Moderately Isolated (08/09/2023) Social Connection and Isolation Panel [NHANES] Frequency of Communication with Friends and Family: More than three times a week Frequency of Social Gatherings with Friends and Family: More than three times a week Attends Je[employer] Services: More than 4 times per year Active Member of Clubs or Organizations: No Attends Club or Organization Meetings: Never Marital Status: Interpersonal Safety: Not At Risk (08/09/2023) Humiliation, Afraid, Rape, and Kick questionnaire Fear of Current or Ex-Partner: No Emotionally Abused: No Physically Abused: No Sexually Abused: No Housing Instability: Low Risk (08/09/2023) Housing Instability Housing Instability: No Family History Adopted: Yes Problem Relation Age of Onset Cancer Mother Diabetes Mother Ms. Garcia has a past medical history of Anemia, Arthritis, Asthma, Atrial fibrillation, Atrial fibrillation (HCC) [I48.91], Bilateral shoulder pain, Bladder disorder, Cataract, Cervical disc disorder, CKD (chronic kidney disease), Dental disease, Depression, Depression with anxiety, Disc disorder, Dry eye syndrome, Edema, Falls frequently, Gastrointestinal hemorrhage, GERD (gastroesophageal reflux disease), Giant cell arteritis (CMS-HCC), Hyperlipidemia, Hypertension, Low back pain, Lumbar disc disorder, LVH (left ventricular hypertrophy), Lymphedema, Macular drusen, bilateral, Migraine, Mononucleosis, Neuropathy, Obesity, Osteoarthritis of cervical spine, Posterior vitreous detachment of right eye, Presbyopia, Prolonged Q-T interval on ECG (12/2018), Rotator cuff arthropathy of right shoulder, Sleep apnea, Status post bariatric surgery, Thoracic disc disorder, Tinnitus, Urinary incontinence, Urinary urgency, UTI (urinary tract infection), Visual impairment, Vitreous floaters of right eye, Vitreous syneresis of left eye, and White matter abnormality on MRI of brain. She has a past surgical history that includes Replacement total knee (Bilateral, 09/2014); Tonsillectomy; Gallbladder surgery (); Dilation and curettage of uterus (2015); Nasal septum surgery (); Hysteroscopy (2015); Gastrectomy (N/A, 07/28/2018); Artery Biopsy (Bilateral, 07/28/2018); Muscle biopsy (Right, 04/05/2019); Esophagogastroduodenoscopy (Left Lateral, 10/07/2022); and Colonoscopy (Left Lateral, 10/07/2022). Base Eye Exam Visual Acuity (Snellen - Linear) Right Left Dist cc 20/25 +2 20/30 -2 Correction: Glasses Tonometry (Tonopen, 2:23 PM) Right Left Pressure 11 11 Pupils Pupils Right PERRL Left PERRL Visual [place] (Counting fingers) Right Left Full Full Extraocular Movement Right Left Full Full Neuro/Psych Oriented x3: Yes Mood/Affect: Normal Dilation Both eyes: 1.0% Tropicamide, 2.5% Phenylephrine Hydrochloride @ 2:23 PM Slit Lamp and Fundus Exam External Exam Right Left External Normal Normal Slit Lamp Exam Right Left Lids/Lashes Normal Normal Conjunctiva/Sclera White and quiet White and quiet Cornea Decreased tear film Decreased tear film Anterior Chamber Deep and quiet Deep and quiet Iris Round and dilated Round and dilated Lens 2+ Nuclear sclerosis 2+ Nuclear sclerosis, 3+ Cortical cataract Anterior Vitreous Normal Normal Fundus Exam Right Left Posterior Vitreous PVD, Floaters PVD, Floaters Disc Normal Normal C/D Ratio 0.2 0.2 Macula Drusen, RPE changes Drusen, RPE changes Vessels Normal Normal Periphery No evidence tears, holes, or detachments No evidence tears, holes, or detachments Diagnosis 1. Vitreous floaters of both eyes 2. Posterior vitreous detachment of both eyes 3. Dry eyes, bilateral 4. Nuclear sclerotic cataract of both eyes 5. Macular drusen, bilateral ASSESSMENT/PLAN 1. Vitreous floaters of both eyes BOTH EYES- stable. -Vitreous opacity noted on examination -Discussed standard of care -Recommend continued observation if patient can function. -Patient instructed to return sooner if floaters increase in size or amount. PATIENT EDUCATION SHEET: Treatment Options for Floaters 2. Posterior vitreous detachment of both eyes BOTH EYES- stable. -Posterior vitreous detachment noted on exam -No holes or tears noted. -Patient instructed to return sooner if any visual changes are noted. -Continue observation 3. Dry eyes, bilateral BOTH EYES-Mild - Condition discussed in depth with the patient. - Information sheet given to the patient on Dry Eye Syndrome. - Contributing factors discussed such as age, looking at computer screen, cellphone or tablet for a long time, using contact lenses, history of eye surgery and certain medications. - Discussed use of artificial tears. Recommend using artificial tears 3x to 4x a day. Recommended brands include Systane, Refresh, Theratears, Soothe XP, and Genteal. Recommend patient use the one that works best for them. - If patient needs artificial tears more than 6x a day, recommend preservative free tears. Patient can also try artificial tear gel at night to help with nightime dryness. 4. Nuclear sclerotic cataract of both eyes BOTH EYES- stable OD, OS slightly worse. -Nuclear sclerotic cataract noted on examination. -Visual requirement for cataract surgery: (-) -Continue observation. 5. Macular drusen, bilateral BOTH EYES- stable. Continue observation. Patient Education: Questions were encouraged to stated satisfaction from the patient. Discussed with patient that failure to follow up as recommended (appointment time, onset of new ocular symptoms) can lead to permanent loss of vision and/or blindness. Patient understands and agrees. Return Visit: 8-10 mo + DFE Physician: Anna Cleary MD Scribe: JOSE ENRIQUE SHI Scribe Statement: Scribed for and in the presence of Anna Cleary MD by RHONDA GASTELUM, COA I, Anna Cleary MD personally performed the services described in the documentation, as scribed by Rhonda Gastelum in my presence, and it is both accurate and complete. documented in this encounter [facility] 12-18-2023 History of Present illness Narrative Summary: 5 years s/p sleeve gastrectomy, Dr. Gil Images from the original note were not included. [facility] GENERAL SURGERY-BARIATRIC [address] [place] [id number] Subjective Patient ID: Keila Garcia is a 68 y.o. female who is an established patient. HPI: Keila is here for her 5 year post-op visit after laparoscopic sleeve gastrectomy with Dr. Gil on 07/28/18. She is fairly compliant with the postoperative diet, eating several small meals daily. Portion sizes are about one cup, or a little more. No issues drinking 64 oz of water daily. She has recently started drinking diet soda, and is now up to cans per day. She eats protein with each meal. Last fall she moved from her home of 55 years, and now lives next door to her best friend. They frequently make meals together. She states she has had a lot of life stress in the past 6 months and has not been paying attention to what she is eating and gained about 12 lbs. She feels more settled now, and is trying to focus more on a healthy diet. She will reach out for a building services engineer visit if she feels she needs help with this. No abdominal pain. + heartburn, mild, occurs about every other day. She continues on Protonix daily and takes TUMS PRN. No nausea or emesis. No constipation. No diarrhea. No dysphagia. For exercise, she started [employer] aerobics at the [facility]. She drinks EtOH occasionally, once/month, at most weekly. She does not use nicotine/tobacco products. She is taking vitamins as prescribed, with the exception of calcium. The following portions of the patient's history were reviewed and updated as appropriate: allergies, current medications, past family history, past medical history, past social history, past surgical history, problem list, and medication reconciliation was completed including current medication and post discharge medication. Weight and Comorbid Conditions: 1. Morbid Obesity [place] body weight: 155 lb BMI 49.67 Personal Goal: 175 lbs Pre op: 307 lb BMI 49.67 1 year post op: 218 lb BMI 31.19 2 years post op: 212 lb BMI 34.33 3 years post op: 208 lb BMI 33.65 4+ years post op: 196 lb BMI 31.65 5.5 years post op: 187 lb BMI 30.26 2. Sleep Apnea: No longer wearing her CPAP since she lost her weight; however currently having some troubles fall asleep 3. 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 GERD: Continues to take Protonix; has mild breakthrough symptoms 5. Hyperlipidemia: Continues on rosuvastatin Past Medical History: Diagnosis Date Anemia iron deficiency Arthritis Asthma Atrial fibrillation Atrial fibrillation (HCC) [I48.91] Bilateral shoulder pain Bladder disorder Cataract Cervical disc disorder CKD (chronic kidney disease) renal insuff/follows with Dr Luke never on dialysis Dental disease chipped Depression Depression with anxiety Disc disorder cervical, thoracic, lumbosacral Dry eye syndrome Edema legs Falls frequently Gastrointestinal hemorrhage Added automatically from request for surgery [id number] GERD (gastroesophageal reflux disease) Giant cell arteritis ([facility]-HCC) Hyperlipidemia Hypertension Low back pain Lumbar disc disorder LVH (left ventricular hypertrophy) AND DIASTOLIC DYSFUNCTION Lymphedema Macular drusen, bilateral Migraine Mononucleosis Neuropathy Obesity h/o bariatric surgery 01/2018, lost >100# Osteoarthritis of cervical spine Posterior vitreous detachment of right eye Presbyopia Prolonged Q-T interval on ECG 12/2018 Rotator cuff arthropathy of right shoulder Added automatically from request for surgery [id number] Sleep apnea uses c pap/states doesn`t use every night Status post bariatric surgery Thoracic disc disorder Tinnitus Urinary incontinence Urinary urgency UTI (urinary tract infection) Visual impairment glasses Vitreous floaters of right eye Vitreous syneresis of left eye White matter abnormality on MRI of brain Vitamins: Multivitamin - PNV QD, ran out recently Calcium citrate - none Vitamin B12 - 1000mcg QD ROS: Review of Systems Constitutional: Negative for fatigue. HENT: Negative for trouble swallowing. Cardiovascular: Negative for leg swelling. Gastrointestinal: Negative for abdominal distention, abdominal pain, constipation, diarrhea, nausea and vomiting. Skin: Negative for rash and wound (Incisions well-healed). Objective Lab Review: Recent Results (from the past 672 hour(s)) Zinc Collection Time: 11/30/23 3:40 PM Result Value Ref Range Zinc 106 60 - 120 ug/dL Vitamin D 25 hydroxy Collection Time: 11/30/23 3:40 PM Result Value Ref Range Vit D, 25-Hydroxy 48.9 30 - 100 ng/mL Vitamin B12 Collection Time: 11/30/23 3:40 PM Result Value Ref Range Vitamin B-12 >1,500 (H) 180 - 914 pg/mL Vitamin A (Retinol) Collection Time: 11/30/23 3:40 PM Result Value Ref Range Vitamin A (Retinol) 0.87 0.30 - 1.20 mg/L Vit A (Retinyl Palmitate) 0.03 0.00 - 0.10 mg/L Vit A, Ser/Pl Interp NORMAL Thiamin Vitamin B1, whole blood Collection Time: 11/30/23 3:40 PM Result Value Ref Range Thiamine See Below Parathyroid Hormone, intact Collection Time: 11/30/23 3:40 PM Result Value Ref Range PTH 117 (H) 12 - 88 pg/mL Liver panel Collection Time: 11/30/23 3:40 PM Result Value Ref Range Alkaline phosphatase 73 39 - 130 U/L AST 15 0 - 41 U/L ALT 15 0 - 31 U/L Total Bilirubin 0.6 0.3 - 1.2 mg/dL Bilirubin, direct 0.2 0.0 - 0.4 mg/dL Albumin 4.0 3.2 - 5.3 g/dL Total Protein 6.7 6.0 - 8.0 g/dL Lipid profile Collection Time: 11/30/23 3:40 PM Result Value Ref Range Cholesterol 142 (L) 150 - 200 mg/dL Triglycerides 127 27 - 150 mg/dL HDL Cholesterol 75 >39 mg/dL VLDL 25 0 - 30 mg/dL LDL (calc) 42 <130 mg/dL Cholesterol:HDL Ratio 1.9 1.0 - 5.0 Iron and TIBC Collection Time: 11/30/23 3:40 PM Result Value Ref Range Iron 100 50 - 170 ug/dL Tibc-calc only do not order 340 250 - 425 ug/dL Iron Saturation 29 15 - 50 % SATURATION Folate Collection Time: 11/30/23 3:40 PM Result Value Ref Range Folate 12.1 >5.8 ng/mL Ferritin Collection Time: 11/30/23 3:40 PM Result Value Ref Range Ferritin 56 11 - 307 ng/mL Copper, serum Collection Time: 11/30/23 3:40 PM Result Value Ref Range Copper 81 80 - 155 ug/dL CBC auto differential Collection Time: 11/30/23 3:40 PM Result Value Ref Range White Blood Cells 7.3 4.0 - 11.0 X10E9/L RBC count 4.03 3.80 - 5.20 X10E12/L Hemoglobin 12.8 11.7 - 15.5 g/dL Hematocrit 38.2 35 - 47 % MCV 95 80 - 100 fL MCH 31.7 27 - 34 pg MCHC 33.4 32 - 36 g/dL RDW 13.9 11.5 - 15.0 % Platelets 251 150 - 450 X10E9/L MPV 7.6 7 - 12 fL % neutrophils 78.1 % % lymphocytes 15.8 % % monocytes 3.5 % % eosinophils 1.8 % % Basophils 0.8 % Neutrophils Absolute (A) 5.7 1.5 - 6.6 X10E9/L Lymphocytes Absolute 1.2 1.0 - 3.5 X10E9/L Monocytes Absolute 0.3 0 - 0.9 X10E9/L Eosinophils Absolute 0.1 0.0 - 0.4 X10E9/L Basophils Absolute 0.1 0.0 - 0.2 X10E9/L Calcium Collection Time: 11/30/23 3:40 PM Result Value Ref Range Calcium 9.1 8.5 - 10.5 mg/dL POCT Protime / INR Collection Time: 12/10/23 12:00 AM Result Value Ref Range INR 1.3 (A) 0.8 - 1.2 Thiamine Date Value Ref Range Status 11/30/2023 See Below Final Comment: NOTE TEST RESULT FLAG UNIT REF.RANGE Vitamin B1 (TDP), Whole Blood 118.3 nmol/L 84.3-213.3 This assay measures the concentration of thiamine diphosphate (TDP), the primary active form of vitamin B1. Approximately 90 percent of vitamin B1 present in whole blood is TDP. Thiamine and thiamine monophosphate, which comprise the remaining 10 percent, are not measured. This test was developed and its performance characteristics determined by [facility]'s Ludwin Santos [facility] [place] ([facility]). It has not been cleared or approved by the FDA. [facility] is regulated under CLIA as qualified to perform high-complexity testing. This test is used for clinical purposes. It should not be regarded as investigational or for research. Test Performed By: [facility] [address] [place] [address] Agricultural Technical Officer: Maxime Weston III, M.D. [facility] #[id number]^ Vitals and Bariatric Vitals: Vitals: 12/18/23 1100 BP: 105/68 BP Site: Left Arm BP Postition: Sitting BP CUFF SIZE: L (13-17 inches) Pulse: 79 Temp: 36.1 C (97 F) TempSrc: Temporal Weight: 85 kg (187 lb 6.4 oz) Height: 167.6 cm (5' 5.98 ) # Days Post Op: (5 years) Weight: 85 kg (187 lb 6.4 oz) BMI: 30.26 Decrease in BMI: 19.44 Weight Lost (kg): 54.6 Weight Lost (lbs): 120.37 % Decreased BMI: 39.11 % Decreased Excess Weight: 78.8 Physical Exam Vitals reviewed. Constitutional: General: She is not in acute distress. Appearance: Normal appearance. She is not ill-appearing, toxic-appearing or diaphoretic. HENT: Head: Normocephalic and atraumatic. Mouth/Throat: Mouth: Mucous membranes are moist. Pulmonary: Effort: Pulmonary effort is normal. Skin: Coloration: Skin is not jaundiced or pale. Neurological: Mental Status: She is alert and oriented to person, place, and time. Psychiatric: Mood and Affect: Mood normal. Behavior: Behavior normal. Behavior is cooperative. Thought Content: Thought content normal. Assesment and Plan: Keila was seen today for follow-up. Diagnoses and all orders for this visit: History of sleeve gastrectomy - Lipid profile; Future - Iron and TIBC; Future - Ferritin; Future - Calcium; Future - CBC auto differential; Future - Copper, serum; Future - Folate; Future - Liver panel; Future - Parathyroid Hormone, intact; Future - Thiamin Vitamin B1, whole blood; Future - Vitamin A (Retinol); Future - Vitamin B12; Future - Vitamin D 25 hydroxy; Future - Zinc; Future - pantoprazole (PROTONIX) 40 mg EC tablet; Take 1 tablet (40 mg total) by mouth in the morning. - Ambulatory referral to Nutrition Services; Future Postsurgical malabsorption - Lipid profile; Future - Iron and TIBC; Future - Ferritin; Future - Calcium; Future - CBC auto differential; Future - Copper, serum; Future - Folate; Future - Liver panel; Future - Parathyroid Hormone, intact; Future - Thiamin Vitamin B1, whole blood; Future - Vitamin A (Retinol); Future - Vitamin B12; Future - Vitamin D 25 hydroxy; Future - Zinc; Future - pantoprazole (PROTONIX) 40 mg EC tablet; Take 1 tablet (40 mg total) by mouth in the morning. - Ambulatory referral to Nutrition Services; Future Malnutrition following gastrointestinal surgery - Lipid profile; Future - Iron and TIBC; Future - Ferritin; Future - Calcium; Future - CBC auto differential; Future - Copper, serum; Future - Folate; Future - Liver panel; Future - Parathyroid Hormone, intact; Future - Thiamin Vitamin B1, whole blood; Future - Vitamin A (Retinol); Future - Vitamin B12; Future - Vitamin D 25 hydroxy; Future - Zinc; Future - pantoprazole (PROTONIX) 40 mg EC tablet; Take 1 tablet (40 mg total) by mouth in the morning. - Ambulatory referral to Nutrition Services; Future 5 years s/p VSG, down 120 lbs (78.8% EBWL) Continue high protein, high veggie diet Consume 4-5 small meals per day, eating something every 3-4 hours Continue water intake; goal is at least 64 oz of water per day Increase exercise; goal is 150 minutes cardio per week and 2 days strength training Labs reviewed Patient would like to make dietary changes on own and schedule building services engineer video visit in 2-3 months PRN. Continue PNV or MVT, calcium and vitamin B12 for life Follow up labs in 1 year, obtain 1 wk prior to scheduled appointment Follow up in 1 year for annual visit Total time spent was 35 minutes: Preparing to see the patient (e.g., review of tests) Obtaining and/or reviewing separately obtained history Performing a medically appropriate examination and/or evaluation Counseling and educating the patient/family/caregiver Ordering medications, tests, or procedures Referring and communicating with other health child care center administrator (not separately reported) Documenting clinical information in the electronic or other health record Independently interpreting results (not separately reported) and communicating results to the patient/family/caregiver Nuria Braden PA-C 12/18/23 1250 documented in this encounter [facility] Instructions Nuria Braden PA-C - 12/18/2023 11:30 AM EDT 5 years s/p VSG, down 120 lbs (78.8% EBWL) Continue high protein, high veggie diet Consume 4-5 small meals per day, eating something every 3-4 hours Continue water intake; goal is at least 64 oz of water per day Increase exercise; goal is 150 minutes cardio per week and 2 days strength training Schedule building services engineer video visit if you notice more weight regain Continue PNV or MVT, calcium and vitamin B12 for life Follow up labs in 1 year, obtain 1 wk prior to scheduled appointment Follow up in 1 year for annual visit documented in this encounter [facility] 12-10[facility]2023 History of Present illness Narrative 15 minute [id number] follow-up anticoagulation appointment. INR performed in office per protocol. INR 1.3 (goal range: 2.0-3.0). Patient reports: Taking warfarin dosing as documented. Missed or extra doses of warfarin: No Changes to medications: No Changes to lifestyle (diet / alcohol / smoking / activity): YES Sporadic eating right now-- not eating regular meals/regular times Patient will be starting protein shakes to help supplement nutrition Started going to aquatics exercise Recent emergency department visit / hospitalization / health changes / new contraindication to current anticoagulant: No Signs/symptoms of bruising/bleeding or clotting or any intolerable adverse events: No Upcoming procedures: No Anticoagulant prescription needed: No Seen referring provider in the last year Duration of therapy reviewed Assessment: INR is subtherapeutic. This may be due to increased exercise or shift in eating habits. We will boost to 5 mg x1, then increase weekly dose by 9% Plan: Patient instructed to increase to warfarin 5 mg 12/09, then increase weekly dose to 2.5 mg Sun/Turs and 5 mg AOD. Check INR in 2 week(s). Patient verbalizes understanding of anticoagulant dosing instructions and information discussed. Dosing regimen, counseling, and follow-up appointment were provided to the patient. Patient reminded to call with questions or any medication changes. Patient instructed to seek medical attention if any major bleeding/bleeding that persists or worsens. Georgina Lockett RPH 12/10/23 1205 documented in this encounter [employer] 11-17-2023 Note Keila is a pleasant 68 year old female previously evaluated for orthostatic intolerance (OI) consistent with postural orthostatic tachycardia syndrome (POTS) and paroxysmal atrial fibrillation and hypertension at our [facility] in the [facility] at the [facility]. July 2023. Chest pain. EMS to [facility]. 3-4 days hospitalization. Cardiac enzymes negative. Evaluation and chemical stress negative . Three days later on DC contracted Covid. Not hospitalized. Review of Systems Cardiovascular: Positive for dyspnea on exertion and leg swelling. Negative for chest pain, near-syncope, palpitations and syncope. Musculoskeletal: Negative for falls. Neurological: Positive for dizziness and light-headedness. Orthostatic dizziness and lightheaded with rapid positions Objective Vitals reviewed. Constitutional: Appearance: Healthy appearance. Not in distress. Neck: Vascular: No JVR. JVD normal. Pulmonary: Effort: Pulmonary effort is normal. Breath sounds: Normal breath sounds. No wheezing. No rhonchi. No rales. Chest: Chest wall: Not tender to palpatation. Cardiovascular: PMI at left midclavicular line. Normal rate. Regular rhythm. Normal S1. Normal S2. Murmurs: There is no murmur. No gallop. No click. No rub. Pulses: Intact distal pulses. Edema: Peripheral edema absent. Comments: Bilateral lymphedema. Compression stockings Abdominal: General: Bowel sounds are normal. Palpations: Abdomen is soft. Tenderness: There is no abdominal tenderness. Musculoskeletal: Normal range of motion. General: No tenderness. Skin: General: Skin is warm and dry. Neurological: General: No focal deficit present. Mental Status: Alert and oriented to person, place and time. Lab Review: [facility]UP[facility] 2022: Interpretation Summary A Tilt Table test was performed on 07/29/23 at [facility] METHOD: The test was explained to Keila Garcia, and the information sheet was signed. ECG monitoring was initiated and a blood pressure cuff was applied to the upper arm. An IV line was placed. AT BASELINE, Had a supine blood pressure of 127/75 MmHg, a heart rate of 72 and Normal Sinus rhythm. Symptoms at baseline: asymptomatic. THE PATIENT WAS TILTED to 70 degree head upright position for 20 minutes. She had a maximum blood pressure of 126/73 mmHg, a heart rate of 83 bpm and Sinus Tachycardia rhythm at minute 6. She had a minimum blood pressure of 86/65 mmHg, a heart rate of 104 bpm and Sinus Tachycardia rhythm at minute 18. Symptoms during initial Tilt: general weakness.THE TEST WAS COMPLETED and the patient was returned to supine position. She had a blood pressure of 132/78 mmHg, a heart rate of 71 bpm, and Normal Sinus rhythm at minute 1 Symptoms Post Test: warm and flush. FINAL IMPRESSION: Positive study for Postural Orthostatic Tachycardia Syndrome Echocardiogram 2022 Narrative Left Ventricle: There is severe focal basal increased wall thickness/hypertrophy no LVOT obstruction noted. Remaining wall segments are normal. Systolic function is normal with an ejection fraction of 65-70%. The quantitative EF by 2D Glaser biplane is 67%. The quantitative EF by 3D imaging is 68%. Right Ventricle: Systolic function is normal. Aortic Valve: There is no regurgitation or stenosis. Mitral Valve: There is trace regurgitation. There is no evidence of mitral valve stenosis. Tricuspid Valve: There is trace to mild regurgitation. The tricuspid valve regurgitation jet is directed toward septum. There is no evidence of tricuspid valve stenosis. The right ventricular systolic pressure normal. RVSP calculated at 22 mmHg. RVSP is based on RA pressure of 3 mmHg. Pericardium: There is no pericardial effusion. Aorta: The aortic root is normal in size. Stress test 07/2023: Outside facility SUMMARY 1. Benign study without evidence of stress induced myocardial ischemia or prior infarction 2. LVEF > 70% 3. Stress ECG demonstrates sinus rhythm, no evidence of stress induced myocardial ischemia by ECG criteria 4. Low risk study overall 5. CT attenuation correction not available 6. Details below 7. Correlate clinically Assessment/Plan The primary encounter diagnosis was Paroxysmal atrial fibrillation (CMS/HCC). Diagnoses of Essential hypertension, benign and POTS (postural orthostatic tachycardia syndrome) were also pertinent to this visit. Problem List Items Addressed This Visit Circulatory Atrial fibrillation (CMS/HCC) - Primary Essential hypertension, benign Relevant Medications furosemide (Lasix) 20 mg tablet losartan (Cozaar) 25 mg tablet Other Visit Diagnoses POTS (postural orthostatic tachycardia syndrome) Atrial fibrillation. No palpitations. On Coumadin. On flecainide and metoprolol HTN stable on losartan, lasix, amlodipine, hydralazine. POTS: stable. No syncope. Ra (more content not included)... [facility] 11-12-2023 History of Present illness Narrative 15 minute [id number] follow-up anticoagulation appointment. INR performed in office per protocol. INR 1.8 (goal range: 2.0-3.0). Patient reports: Taking warfarin dosing as documented. Missed or extra doses of warfarin: YES Missed 1 dose yesterday Changes to medications: No Changes to lifestyle (diet / alcohol / smoking / activity): No Recent emergency department visit / hospitalization / health changes / new contraindication to current anticoagulant: No Signs/symptoms of bruising/bleeding or clotting or any intolerable adverse events: No Upcoming procedures: No Anticoagulant prescription needed: No Seen referring provider in the last year Duration of therapy reviewed Assessment: INR is slightly subtherapeutic, possibly due to missed dose. We will boost x1, then resume previous dose. Plan: Patient instructed to increase to warfarin 5 mg 11/12 and 2.5 mg Thu/e/Th and 5 mg AOD. Check INR in 4 week(s). Patient verbalizes understanding of anticoagulant dosing instructions and information discussed. Dosing regimen, counseling, and follow-up appointment were provided to the patient. Patient reminded to call with questions or any medication changes. Patient instructed to seek medical attention if any major bleeding/bleeding that persists or worsens. Georgina Lockett RPH 11/12/23 [id number] documented in this encounter [employer] 11-11-2023 Telephone encounter Note Patient has a 40.00 copay with unlimited visits Ok to schedule with Jacquie Brooks [facility] 11-11-2023 Miscellaneous Notes Patient has a 40.00 copay with unlimited visits Ok to schedule with Jacquie Brooks documented in this encounter [facility] 11-04-2023 Miscellaneous Notes The patient was a no show today. Limousine Driver GEOFFREY requesting patient call back to schedule another appointment. documented in this encounter [facility] 11-04-2023 Telephone encounter Note The patient was a no show today. Limousine Driver GEOFFREY requesting patient call back to schedule another appointment. [facility] 10-28-2023 History of Present illness Narrative Images from the original note were not included. Subjective Patient ID: Keila Garcia is a 68 y.o. female who presents for New patient exam and Diarrhea (Pt's bowels are normally regular, but for the last week pt has had some diarrhea normally in the evening. Pt has had abdominal cramping and bowels move. Pt had this for a few days, symptoms were better at the end of the week, but worsened again this week. Pt is wondering if this could be from her new medictions. ). Diarrhea Pertinent negatives include no fever. HPI: As above. No fever but had felt chilled, states may have had a Flu bug . Last night had a lot of cramping, no stool then. Had backed off of fruits/vegies. Eating dry toast, cheese, bananas rice. Drinking a lot of water, diet gingerale. No recent travel, ATB, zoo or farm visit. Pt states she had colonoscopy approx 2 years ago, [place] [address]-thinks she had polyps. Sees [facility] for INR. Last INR approx 5-6 weeks, thinks it was 2.2 then, has appt this Thursday. Had covid Aug 16 and since then more tired. Moved here from [place] in early April, friend neighbor brobruno hip, helped her, so not unpacked yet. 2020, 1.5 years ago lost his seeing eye dog. Used to see someone in [place] for mental health meds and counseling, not seeing anyone here yet. Had been on generic Ritalin , not now. On Cymbalta. Hx of lymphedema for 40 years, saw a lymphedema specialist and clinic in the past. Wearing blair hose now. Has lympha press machine at home-it goes from feet to thigh-not using now. Pt states she started taking Lymph System supplement approx 2 months ago and feels it has helped swelling. Sees Cardiology-Had tilt table test and will be seeing Dr Chun office 11/17/23. Hx of At fib-states pain is usually between shoulder blades. In Jul had chest pain-felt nauseated and had diarrhea. Went to the ER, and checked out ok. Sees Nephrology, Neurology, Urology, Opthamology . Hx of bariatric OR 2018. Since 2015 falling for no reason, not dizzy. Neurology thought she could have MS- but not sure. Pt states she plans to go to the [facility] for water aerobic class Review of Systems Constitutional: Positive for fatigue. Negative for appetite change and fever. Good appetite trying to eat healthy, less this past week. KEENAN in diet. Always fatiged for years-worse this past month HENT: Ok, some hearing loss constant buzz in ears. Saw ENT in the past-many years ago. Respiratory: Positive for chest tightness and shortness of breath. SOB with mod exertion, but do not move much . Occ tightness if over does it Cardiovascular: Negative for chest pain. Gastrointestinal: Positive for diarrhea. Negative for blood in stool. See HPI, Occ GERD with PPI, Tring to watch diet/triggers Genitourinary: Negative for difficulty urinating and dysuria. Occ sudden onset-need to go quickly Musculoskeletal: Does not have a lot of pain in joints, but mid/low back gets tired domi if stands along time. No Tylenol taken. Injured shoulder several years ago- recommended shoulder replacement, insurance Co woulnd't do until PT done. Started PT, then covid happened-so never had it. Still hurts, rates pain some days 4/10 other days 12/10, hard to lift arm Neurological: Positive for light-headedness. Used to have horrible H/A's, now rare. Sometimes go away on their own or takes generic Tylenol. Occ lightheaded, If turns too fast/gets up too fast. Psychiatric/Behavioral: Sleep is terrible, has to take Melatonin 12mg at night. Which sometimes helps. Sometimes falls asleep at 2 AM or 5 AM then sleeps til 10-11 AM. No caffeine, Some electronic before. See HPI for mood Objective Physical Exam Vitals reviewed. Constitutional: General: She is not in acute distress. HENT: Ears: Comments: TM cloudy, no erythema Nose: Nose normal. No rhinorrhea. Mouth/Throat: Mouth: Mucous membranes are moist. Pharynx: Oropharynx is clear. Eyes: Extraocular Movements: Extraocular movements intact. Cardiovascular: Rate and Rhythm: Normal rate and regular rhythm. Comments: Large lower legs, lyphedema, teds on Pulmonary: Effort: Pulmonary effort is normal. Breath sounds: Normal breath sounds. Comments: No cough Abdominal: General: Bowel sounds are normal. Palpations: Abdomen is soft. Tenderness: There is no abdominal tenderness. Musculoskeletal: Comments: Using wheeled walker Skin: General: Skin is warm and dry. Findings: No rash. Neurological: Mental Status: She is alert and oriented to person, place, and time. Psychiatric: Comments: Calm and cooperative, well groomed, good eye contact 06/17/2023 1:56 PM 06/17/2023 2:38 PM 07/01/2023 1:31 PM 09/30/2023 11:05 AM 10/28/2023 2:41 PM Vitals BMI 31.62 kg/m2 31.45 kg/m2 31.52 kg/m2 BSA (m2) 1.99 m2 1.98 m2 1.98 m2 Systolic 142 160 124 102 90 Diastolic 84 90 80 60 52 Heart Rate 83 78 68 SpO2 97 % 96 % Temp 97.1 F Resp 16 18 Height (in) 5' 5 5' 5 5' 5 Weight (lb) 190 189 189.4 Visit Report Report Report Report Report Report GERD triggers OJ, lemon, lemonade, , lemonade, canberry, tomoato, mashed pot, maori fries, pot cook Mac and cheese, spagetti, sour cream, mild shake, ice cream, fground beed, chocolate, corm chips brownies, salad drsg, liquor-peach margaetia, wine, tea-decab Assessment/Plan Diagnoses and all orders for this visit: First degree AV block Comments: Hx of-sees Cardiology Chronic atrial fibrillation, unspecified (I48.20) Comments: Hx of Sacroiliitis, not elsewhere classified (M46.1) Comments: Hx of Major depressive disorder, single episode, moderate (F32.1) Comments: Hx of-On Cymbalta Other giant cell arteritis (M31.6) Comments: Per pt-Thought she had it, but inconclusive Atherosclerosis of aorta (I70.0) Comments: Hx of. On Zetia Other secondary hypertension (CMS/HCC) Comments: Hx of Essential hypertension, benign (CMS/HCC) Comments: Hx of LVH (left ventricular hypertrophy) Comments: Hx of Prolonged Q-T interval on ECG Comments: Hx of Stage 3b chronic kidney disease (HCC) (CMS/HCC) Comments: Last BUN 30, crea1.67 GFR 33 in Aug. Sees Nephrology Hyperparathyroidism, secondary renal (CMS/HCC) Comments: Hx of Iron deficiency anemia secondary to inadequate dietary iron intake Comments: Last H/H 12.5/38.3 History of borderline diabetes mellitus Comments: Last glucose 85 Dyslipidemia (CMS/HCC) Comments: Hx of History of sleeve gastrectomy Comments: Hx of, pt states her Bariatric surgeon will be doong lab 11/17/23 she will get copy to us Lymphedema Comments: Hx of, has machine at home she can use. Wearing blair hose Recurrent major depression in partial remission (HCC) (CMS/HCC) Comments: On Cymbalta. Pt is interested in seeing [facility] counselor-will refer. She will have us order med at this time Urinary urgency Comments: Sees Urology White matter abnormality on MRI of brain Comments: Hx of sees Neurology-used to see Michelle George, last couple of years ago Tinnitus, unspecified laterality Comments: Hx of, could see ENT ie Dr Botello-pt will let me know Repeated falls Comments: Sees Neurology Tear film insufficiency, unspecified laterality: Sees Eye routinely Nuclear sclerotic cataract of both eyes: Hx of Posterior vitreous detachment of right eye: Hx of Age-related osteoporosis without current pathological fracture (CMS/HCC): Hx of-per pt she had Dexa approx 2 years ago, thought it showed osteopenia-I will see if we can get result Primary lymphedema Comments: Wearing support hose, had pump at home, has to find it. Could see Clinic in [place]-she will let me know Degeneration of cervical intervertebral disc Comments: Hx of Neurogenic claudication Comments: Hx of Bilateral shoulder pain, unspecified chronicity Comments: Hx of Congenital spondylolisthesis Comments: Hx of Disc disorder Comments: Hx of Idiopathic scoliosis and kyphoscoliosis Comments: Has seen Neurosurgeon-[facility] and one at [facility], Could do surgery-pt prefers to hold off Inflammation of sacroiliac joint (CMS/HCC) Comments: Hx of Presence of artificial knee joint, bilateral Comments: Hx of Microalbuminuria Comments: Hx of Urge incontinence Comments: Sees Urology Bladder disorder Comments: Sees Urology Status post bariatric surgery Comments: Hx of Atrial fibrillation, unspecified type (CMS/HCC) Comments: Hx of Hypertensive heart and chronic kidney disease without heart failure, with stage 1 through stage 4 chronic kidney disease, or unspecified chronic kidney disease (CMS/HCC) Comments: Hx of Gastroesophageal reflux disease, unspecified whether esophagitis present Comments: Hx of-on PPI. GERD triggers discussed, enc pt to stop or at least decrease triggers Decreased hearing, unspecified laterality Comments: Pt would like referral to ENT/Zainab Hwang-she will let us know if wants referral Encounter to establish care Comments: Reviewed Hx/Diagnoses. Enc RSV, Covid and Shingles vaccines. Last Mammogram 06/20. Pt states she had Dexa in [place] approx 2 years ago-thinks she had osteopenia. Pt thinks she had colonoscopy in [place] couple of years ago, she will check her my chart and call us with name of the Dr who did it. She thinks she has polyps and is to repeat colonoscopy in 5 years. Diarrhea, unspecified type Comments: Could get stool specimens. Continue to decrease frutis/vegetables. Discussed foods that bind ie yogurt, cheese, bananas, rice, applesauce. Pt states she will let us know if not improving to get order. Do not take Immodium. Discussed PPI can cause diarrhea Visual impairment: Hx of Vitreous floater right eye: Hx of intermediate use of 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: Hx of Gait disorder Fatigue Over 50 in visit today, complex pt, reviewed Dx's, Immunizations, refer to counselor documented in this encounter [facility] 10-27-2023 History of Present illness Narrative Annual lab orders entered. Patient has annual appointment scheduled 11/17/23 with Marci. documented in this encounter [facility] 10-21-2023 Miscellaneous Notes Attempted to call patient to schedule follow-up appointment. Needed to leave a message on importance of follow-up care Second attempt made to encourage follow up care via [employer] documented in this encounter [facility] 10-21-2023 Telephone encounter Note Attempted to call patient to schedule follow-up appointment. Needed to leave a message on importance of follow-up care [facility] 10-21-2023 Telephone encounter Note Second attempt made to encourage follow up care via [employer] [facility] 10-19-2023 History of Present illness Narrative Keila Garcia had concerns including Eye Exam. HPI Eye Exam In both eyes. Comments EP VE Patient is scheduled to use vision insurance benefits for a routine eye exam with refraction procedure eval only. Patient states moderate overall vision OU w/out correction over the past 4-5 months due to broken. There are +2.50 OTC readers used only at this time. She has continuation of care as seen with Dr Cleary. Patient takes Preservision ocular vitamin QD. There are halo effects seen at nighttime from lights. Patient uses OTC AT drop PRN OU. Last edited by David Gaviria on 10/19/2023 1:58 PM. ROS Positive for: Cardiovascular (hypertension), Eyes, Heme/Lymph (borderline anemia) Negative for: Constitutional, Gastrointestinal, Neurological, Skin, Genitourinary, Musculoskeletal, HENT, Endocrine, Respiratory, Psychiatric, Allergic/Imm Last edited by David Gaviria on 10/19/2023 1:49 PM. No current outpatient medications on file. (Ophthalmic Drugs) No current facility-administered medications for this visit. (Ophthalmic Drugs) Current Outpatient Medications (Other) Medication Sig acetaminophen (TYLENOL EXTRA STRENGTH) 500 mg tablet Take 2 tablets (1,000 mg total) by mouth every 6 (six) hours as needed for pain. amLODIPine (NORVASC) 5 mg tablet Take 2 tablets (10 mg total) by mouth daily with breakfast. cyanocobalamin (vitamin B-12) 100 MCG tablet Take 10 tablets (1,000 mcg total) by mouth in the morning. docusate sodium (COLACE) 100 mg capsule 1 capsule as needed Orally Once a day for 30 day(s) DULoxetine (CYMBALTA) 60 mg capsule Take 1 capsule (60 mg total) by mouth in the morning. ferrous sulfate 325 (65 FE) mg tablet Take 1 tablet (325 mg total) by mouth daily with breakfast. flecainide (TAMBOCOR) 100 mg tablet Take 1 tablet (100 mg total) by mouth every 12 (twelve) hours. furosemide (LASIX) 20 mg tablet Take 1 tablet (20 mg total) by mouth daily. hydrALAZINE (APRESOLINE) 50 mg tablet Take 1 tablet (50 mg total) by mouth 3 (three) times a day. losartan (COZAAR) 25 mg tablet Take 1 tablet (25 mg total) by mouth in the morning. melatonin 10 mg tablet Take 10 mg by mouth nightly. oxybutynin XL (DITROPAN XL) 15 mg 24 hr tablet Take 1 tablet (15 mg total) by mouth in the morning. pantoprazole (PROTONIX) 40 mg EC tablet Take 1 tablet (40 mg total) by mouth in the morning. rosuvastatin (CRESTOR) 5 mg tablet Take 1 tablet (5 mg total) by mouth in the evening. topiramate (TOPAMAX) 50 mg tablet TAKE ONE TABLET BY MOUTH TWICE A DAY vit A/vit C/vit E/zinc/copper (PRESERVISION AREDS ORAL) Take 1 tablet by mouth in the morning. warfarin (COUMADIN) 5 mg tablet Take 1 tablet (5 mg total) by mouth in the evening. as directed by Natalie BAXTER (Medication Therapy Management). (Patient taking differently: Take 1 tablet (5 mg total) by mouth in the evening. as directed by Natalie BAXTER (Medication Therapy Management). Take 5mg warfarin QD Thursday, Thursday, Thursday, and Thursday. Take 2.5mg warfarin QD Thursday, Thursday, and . .) No current facility-administered medications for this visit. (Other) Family History Adopted: Yes Problem Relation Age of Onset Cancer Mother Diabetes Mother Social History Socioeconomic History Marital status: Single Spouse name: Not on file Number of children: Not on file Years of education: Not on file Highest education level: Not on file Occupational History Not on file Tobacco Use Smoking status: Never Smokeless tobacco: Never Vaping Use Vaping Use: Never used Substance and Sexual Activity Alcohol use: Yes Alcohol/week: 1.0 standard drink of alcohol Types: 1 Glasses of wine per week Comment: occasionally Drug use: Never Sexual activity: Not on file Comment: not reviewd at this visit Other Topics Concern Not on file Social History Narrative Not on file Social Determinants of Health Financial Resource Strain: Low Risk (08/09/2023) Overall Financial Resource Strain (CARDIA) Difficulty of Paying Living Expenses: Not hard at all Food Insecurity: No Food Insecurity (08/09/2023) Hunger Screening Food Insecurity - Worry: Never True Food Insecurity - Inability: Never True Transportation Needs: No Transportation Needs (08/09/2023) PRAPARE - Transportation Lack of Transportation (Medical): No Lack of Transportation (Non-Medical): No Physical Activity: Inactive (08/09/2023) Exercise Vital Sign Days of Exercise per Week: 0 days Minutes of Exercise per Session: 0 min Stress: No Stress Concern Present (08/09/2023) [employer] [place] [employer] - Occupational Stress Questionnaire Feeling of Stress : Not at all Social Connections: Moderately Isolated (08/09/2023) Social Connection and Isolation Panel [NHANES] Frequency of Communication with Friends and Family: More than three times a week Frequency of Social Gatherings with Friends and Family: More than three times a week Attends [employer] Services: More than 4 times per year Active Member of Clubs or Organizations: No Attends Club or Organization Meetings: Never Marital Status: Interpersonal Safety: Not At Risk (08/09/2023) Humiliation, Afraid, Rape, and Kick questionnaire Fear of Current or Ex-Partner: No Emotionally Abused: No Physically Abused: No Sexually Abused: No Ms. Garcia has a past medical history of Anemia, Arthritis, Asthma, Atrial fibrillation, Atrial fibrillation (HCC) [I48.91], Bilateral shoulder pain, Bladder disorder, Cataract, Cervical disc disorder, CKD (chronic kidney disease), Dental disease, Depression, Depression with anxiety, Disc disorder, Dry eye syndrome, Edema, Falls frequently, Gastrointestinal hemorrhage, GERD (gastroesophageal reflux disease), Giant cell arteritis (CMS-HCC), Hyperlipidemia, Hypertension, Low back pain, Lumbar disc disorder, LVH (left ventricular hypertrophy), Lymphedema, Macular drusen, bilateral, Migraine, Mononucleosis, Neuropathy, Obesity, Osteoarthritis of cervical spine, Posterior vitreous detachment of right eye, Presbyopia, Prolonged Q-T interval on ECG (12/2018), Rotator cuff arthropathy of right shoulder, Sleep apnea, Status post bariatric surgery, Thoracic disc disorder, Tinnitus, Urinary incontinence, Urinary urgency, UTI (urinary tract infection), Visual impairment, Vitreous floaters of right eye, Vitreous syneresis of left eye, and White matter abnormality on MRI of brain. She has a past surgical history that includes Replacement total knee (Bilateral, 09/2014); Tonsillectomy; Gallbladder surgery (); Dilation and curettage of uterus (2015); Nasal septum surgery (s); Hysteroscopy (2015); Gastrectomy (N/A, 07/28/2018); Artery Biopsy (Bilateral, 07/28/2018); Muscle biopsy (Right, 04/05/2019); Esophagogastroduodenoscopy (Left Lateral, 10/07/2022); and Colonoscopy (Left Lateral, 10/07/2022). Base Eye Exam Visual Acuity (Snellen - Linear) Right Left Dist sc 20/100 20/80 Dist ph sc 20/25 -1 Near cc J2 J5 Correction: Glasses +2.50 OTC readers only Tonometry (Applanation, 2:14 PM) Right Left Pressure 10 12 Pupils Pupils Right PERRL Left PERRL Visual [place] (Counting fingers) Right Left Full Full Extraocular Movement Right Left Full Full Neuro/Psych Oriented x3: Yes Mood/Affect: Normal Dilation DFE as scheduled with Dr Cleary in Oct 2023 Additional Tests Amsler Right Left Normal Distortions Thin black lines in appearance but straight grid, especially right of center (OS) Glare Testing (BAT) Off Low Medium Right 20/30 20/40 20/30 Left 20/40 20/30 20/30 Slit Lamp and Fundus Exam External Exam Right Left External Normal periorbital Ecchymosis Slit Lamp Exam Right Left Lids/Lashes Normal Normal Conjunctiva/Sclera White and quiet White and quiet Cornea Punctate epithelial erosions Punctate epithelial erosions Anterior Chamber Deep and quiet Deep and quiet Iris Round and reactive Round and reactive Lens 2+ Nuclear sclerosis 2+ Nuclear sclerosis, 3+ Cortical cataract Anterior Vitreous Normal Normal Fundus Exam Right Left Posterior Vitreous Posterior vitreous detachment, Central vitreous floaters Posterior vitreous detachment, Central vitreous floaters Disc Normal Normal C/D Ratio 0.2 0.2 Macula Drusen, RPE changes Drusen, RPE changes Vessels Normal Normal Refraction Wearing Rx Sphere Cylinder [place] Add Right +0.75 -0.50 060 +2.50 Left +0.75 -0.75 135 +2.50 Last Rx, only +2.50 OTC readers Manifest Refraction (Auto) Sphere Cylinder [place] Dist [place] Add Right +2.00 -0.75 062 Left +2.50 -1.50 100 Manifest Refraction #2 Sphere Cylinder [place] Dist VA Add Right +1.75 -0.75 075 20/25 +2.50 Left +2.25 -1.50 100 20/50 +2.50 Manifest Refraction Comments M2 Dr. Betancur performed today Final Rx Sphere Cylinder [place] Dist [place] Add Right +1.75 -0.75 075 20/25 +2.50 Left +2.25 -1.50 100 20/50 +2.50 Expiration Date: 10/19/2025 Comments: Polycarbonate Diagnosis 1. Hyperopia with astigmatism and presbyopia, bilateral 1. Hyperopia with astigmatism and presbyopia, bilateral Subjective refraction performed in exam room; new spectacle prescription written today. Patient educated on BCVA secondary to ocular conditions. Patient voiced understanding. Patient Education: Questions were encouraged to stated satisfaction from the patient. Discussed with patient that failure to follow up as recommended (appointment time, onset of new ocular symptoms) can lead to permanent loss of vision and/or blindness. Patient understands and agrees. Return Visit: As scheduled with Dr. Cleary Physician: JOSE G BETANCUR OD Cigar Head Pegger: ELISABET CARTER Scribed for and in the presence of JOSE G BETANCUR OD by ELISABET CARTER I, JOSE G BETANCUR OD personally performed the services described in the documentation, as scribed by ELISABET CARTER in my presence, and it is both accurate and complete. Patient accompanied by self. [facility] History of Present illness Narrative 15 minute [id number] follow-up anticoagulation appointment. INR performed in office per protocol. INR 2.2 (goal range: 2.0-3.0). Patient reports: Taking warfarin dosing as documented. Missed or extra doses of warfarin: Yes, 1 missed dose about week and 1/2, but then took the next AM Changes to medications: No Changes to lifestyle (diet / alcohol / smoking / activity): No Recent emergency department visit / hospitalization / health changes / new contraindication to current anticoagulant: No Signs/symptoms of bruising/bleeding or clotting or any intolerable adverse events: No Upcoming procedures: No Anticoagulant prescription needed: No Seen referring provider in the last year Duration of therapy reviewed Assessment: INR is remaining stable in therapeutic range on current warfarin regimen. Plan: Patient instructed to continue warfarin Maintenance plan:2.5 mg every Thu, Thu, Thu; 5 mg all other days Check INR in 4 week(s). Patient verbalizes understanding of anticoagulant dosing instructions and information discussed. Dosing regimen, counseling, and follow-up appointment were provided to the patient. Patient reminded to call with questions or any medication changes. Patient instructed to seek medical attention if any major bleeding/bleeding that persists or worsens. Eamon Phan RPH 10/02/23 0949 documented in this encounter [facility] 07-23-2023 Evaluation note Encounter Date Diagnosis Assessment Notes Jun, Recurrent UTI (ICD-10 - N39.0) Preventative modalities with Vit C and daily use of theraworx urinary wipes to continue. She will make appt for 6 monts but follow up with me sooner is concerns arise. [employer] Other 08-30-2023 Evaluation note* Encounter Date Diagnosis Assessment Notes Treatment Notes Treatment Clinical Notes Apr, Recurrent UTI (ICD-10 - N39.0) Patient and I discussed preventing urinary tract infections overall. I told her I do not generally like to prescribe antibiotics unless there is a true infection and would not want to just simply start by giving a prophylactic antibiotic due to my concerns of resistance developing. I did asked the patient if she had any dry or itching of the vaginal area for which she denied thinking that atrophic vaginitis can always cause a problem in females. Since this does not seem to be a problem clinically we opted to try preventative measures with Theraworkx U hanna to be used twice a day and for her to supplement vitamin C into her diet. Patient does have a history of a gastric procedure for weight loss she was not clear if she had a bypass versus a sleeve. Ultimately though her absorption for routine medicines antibiotics and vitamins may not be normal. Moving forward this may be an issue. For now attempting the conservative measures with the Theraworkx U pack and vitamin C we will see how this does for her clinically. 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 documented in this encounter [employer] [facility]* Diagnosis Hyperopia with astigmatism and presbyopia, bilateral- Primary documented in this encounter [employer] [facility]* Diagnosis History of sleeve gastrectomy- Primary 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 Other and unspecified postsurgical nonabsorption History of hyperlipidemia History of anemia Personal history of diseases of blood and blood-forming organs documented in this encounter [employer] [facility]* Diagnosis First degree AV block- Primary First degree atrioventricular block Chronic atrial fibrillation, unspecified (I48.20) Sacroiliitis, not elsewhere classified (M46.1) Sacroiliitis, not elsewhere classified Major depressive disorder, single episode, moderate (F32.1) Major depressive disorder, single episode, moderate Other giant cell arteritis (M31.6) Atherosclerosis of aorta (I70.0) Atherosclerosis of aorta Other secondary hypertension (CMS/HCC) Essential hypertension, benign (CMS/HCC) Essential hypertension, benign LVH (left ventricular hypertrophy) Cardiomegaly Prolonged Q-T interval on ECG Nonspecific abnormal electrocardiogram (ECG) (EKG) Stage 3b chronic kidney disease (HCC) (CMS/HCC) Hyperparathyroidism, secondary renal (CMS/HCC) Secondary hyperparathyroidism (of renal origin) Iron deficiency anemia secondary to inadequate dietary iron intake History of borderline diabetes mellitus Dyslipidemia (CMS/HCC) Other and unspecified hyperlipidemia History of sleeve gastrectomy Lymphedema Other noninfectious lymphedema Recurrent major depression in partial remission (HCC) ([facility]) Major depressive disorder, recurrent episode, in partial or unspecified remission Urinary urgency Urgency of urination White matter abnormality on MRI of brain Tinnitus, unspecified laterality Repeated falls Tear film insufficiency, unspecified laterality Nuclear sclerotic cataract of both eyes Senile nuclear sclerosis Posterior vitreous detachment of right eye Vitreous degeneration Age-related osteoporosis without current pathological fracture (CMS/HCC) Primary lymphedema Degeneration of cervical intervertebral disc Neurogenic claudication Spinal stenosis of lumbar region Bilateral shoulder pain, unspecified chronicity Congenital spondylolisthesis Disc disorder Other and unspecified disc disorder of unspecified region Idiopathic scoliosis and kyphoscoliosis Scoliosis (and kyphoscoliosis), idiopathic Inflammation of sacroiliac joint (CMS/HCC) Sacroiliitis, not elsewhere classified Presence of artificial knee joint, bilateral Microalbuminuria Proteinuria Urge incontinence Bladder disorder Unspecified disorder of bladder Status post bariatric surgery Bariatric surgery status Atrial fibrillation, unspecified type (CMS/HCC) Hypertensive heart and chronic kidney disease without heart failure, with stage 1 through stage 4 chronic kidney disease, or unspecified chronic kidney disease ([facility]/HCC) Gastroesophageal reflux disease, unspecified whether esophagitis present Decreased hearing, unspecified laterality Encounter to establish care Diarrhea, unspecified type Visual impairment Unspecified visual loss Vitreous floaters of right eye 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 Gait disorder Abnormality of gait documented in this encounter [facility]* Diagnosis intermediate current use of 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- Primary [facility]* Diagnosis History of sleeve gastrectomy- Primary 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 Other and unspecified postsurgical nonabsorption documented in this encounter [facility]* Diagnosis Vitreous floaters of both eyes- Primary Posterior vitreous detachment of both eyes Vitreous degeneration Dry eyes, bilateral Nuclear sclerotic cataract of both eyes Senile nuclear sclerosis Macular drusen, bilateral [facility] Diagnosis Demyelinating disease of central nervous system (HCC)- Primary Demyelinating disease of central nervous system, unspecified Cervical spondylosis with myelopathy Ataxia Lack of coordination [facility]* Diagnosis Demyelinating disease of central nervous system (HCC) Demyelinating disease of central nervous system, unspecified [facility]* Diagnosis Radiculopathy, lumbosacral region- Primary Thoracic or lumbosacral neuritis or radiculitis, unspecified 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 documented [facility] this encounter [facility]* Diagnosis Ataxia Lack of coordination Radiculopathy, lumbosacral region- Primary Thoracic or lumbosacral neuritis or radiculitis, unspecified 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 documented [facility] this encounter [facility]* Diagnosis Idiopathic progressive polyneuropathy- Primary [facility] this [facility]* Diagnosis Closed displaced supracondylar fracture of distal end of left femur without intracondylar extension with routine healing, subsequent encounter- Primary documented in this encounter [facility] SystemHistory general Narrative - Reported* Type Description Date Medical History chronic kidney disease Medical History HTN Medical History iron deficiency anemia Medical History hyperlipidemia Medical History depression Medical History lymphedema Medical History asthma Medical History FERD Medical History arthritis Medical History osteoporosis Medical History AFIB Medical History overactive bladder Medical History migraines Medical History polyneuropathy Medical History YUNG Surgical History D&C/hysteroscopy w/ myosure & e ndocerv curettings Surgical History bilateral knee replacements Surgical History tonsillectomy Surgical History cyst, polyp, and tumor removal from uterus Surgical History gall bladder removed Surgical History gastric sleeve surgery Surgical History bilater bhemporal artery biopsy - negative Surgical History muscle biopsy Surgical History lumpectomy left breast Hospitalization History right knee replacement 0 01/10 Hospitalization History uti 03/17 Hospitalization History fall 01/14 Hospitalization History JUDE 01/11 Hospitalization History total left knee replacem ent 04/11 [employer] Other InstructionsNot on filedocumented in this encounter [facility] SystemInstructionsNot on filedocumented in this encounter [facility] System[facility]ructionsNot on filedocumented in this encounter [facility] SystemInstructionsNot on filedocumented in this encounter [facility]* Attachments The following attachments cannot be sent through Care Everywhere. * How to Care for Your Eyes (Divehi) [facility] SystemInstructionsNot on file documented in this encounterProShel[facility] HospitalReason for referral (narrative)* Consultation (Routine) - Pending Review Specialty Diagnoses / Procedures Referred By Dilip rodrigez Referred To Contact Nutrition Diagnoses History of sleeve gastrectomy 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 Nuria Braden PA-C [address] [place] [id number] Referral ID Status Reason Start Date Expiration Date Visits Requested Visits Authorized [id number] Pending Review Specialty Services Required 12/18/2023 12/17/2024 1 1 [facility] ([facility])* Outpatient Procedure (Routine) - Pending Review Specialty Diagnoses / Procedures Referred By Dilip rodrigez Referred To Contact [facility] Diagnoses Ataxia Procedures EMG(NEURO/NI) NERVE CONDUCTION STUDIES 9-10 STUDIES Bib Alva MD [address] [address] [facility] [place] [facility] [place] [address] Referral ID Status Reason Start Date Expiration Date Visits Requested Visits Authorized [id number] Pending Review Auto-Generat ed Referral 03/23/2024 03/23/2025 1 1 * Consult, Test, Treat (Routine) - Authorized Specialty Diagnoses / Procedures Referred By Dilip t Referred To Contact [facility] [place] Diagnoses Cervical spondylosis with myelopathy Procedures CONSULT TO [facility] OFFICE/OUTPATIENT [facility] 60 MINUTES Bib Alva MD [address] [place] [address] Referral ID Status Reason Start Date Expiration Date Visits Requested Visits Authorized [id number] Authorized PCP Requested Referral 03/23/2024 03/23/2025 1 1 [facility] Summary Purpose Family History No Family History Records FoundNo Family History Records FoundNo Family History Records FoundNo Family History Records FoundNo Family History Records FoundNo Family History Records FoundNo Family History Records FoundNo Family History Records FoundNo Family History Records Found Advance Directives Documents on File Type Date Recorded Patient Billing Collections Specialist Expl anation ACP-Advance Directive ACP-Power of Extension Service Supervisor Documents on File Type Date Recorded Patient Billing Collections Specialist Expl anation ACP-Advance Directive ACP-Power of Extension Service Supervisor Latest Code Status on File Code Status Date Activated Date Inactivated Comments Full Code 08/09/2023 6:35 PM 08/12/2023 3:58 PM Code Status History Code Status Date Activated Date Inactivated Comments Full Code 10/06/2022 3:21 PM 10/09/2022 5:31 PM Full Code 03/18/2022 7:50 PM 03/24/2022 7:48 PM Full Code 12/27/2018 5:26 PM 01/07/2019 10:29 PM Full Code 07/29/2018 8:38 AM 07/31/2018 6:38 PM Latest Code Status on File Code Status Date Activated Date Inactivated Comments Full Code 08/09/2023 6:35 PM 08/12/2023 3:58 PM Code Status History Code Status Date Activated Date Inactivated Comments Full Code 10/06/2022 3:21 PM 10/09/2022 5:31 PM Full Code 03/18/2022 7:50 PM 03/24/2022 7:48 PM Full Code 12/27/2018 5:26 PM 01/07/2019 10:29 PM Full Code 07/29/2018 8:38 AM 07/31/2018 6:38 PM Date Activated Date Inactivated Comments 06/03/2024 1:38 AM 06/10/2024 1:55 PM Date Activated Date Inactivated Comments 08/09/2023 6:35 PM 08/12/2023 3:58 PM Date Activated Date Inactivated Comments 10/06/2022 3:21 PM 10/09/2022 5:31 PM Date Activated Date Inactivated Comments 03/18/2022 7:50 PM 03/24/2022 7:48 PM Date Activated Date Inactivated Comments 12/27/2018 5:26 PM 01/07/2019 10:29 PM Discharge Instructions * Instructions* Jany Santizo, DO - 08/07/2020 [facility] POST-ENDOSCOPY INSTRUCTIONS: 1. ACTIVITY No driving, operating machinery, or making important decisions for 24 hours. Resume normal activity after 24 hours. You may return to work after 24 hours. 2. DIET ____ (EGD/ERCP): Do not eat or drink for one hour after your exam. You may then try a sip of water, and if you are able to swallow as usual you may advance to a regular diet. __x__ (Colonscopy/Flex Sig): Resume your usual diet unless specified below. ____ Diet Modification: 3. MEDICATIONS (Do not consume alcohol, tranquilizers, or sleeping medications for 24 hours unless advised by your physician) __x___ Resume your usual medications 4. PHYSICIAN FOLLOW-UP ____ Please call the office for an appointment/further instructions. __x__ See your family physician. 5. ADDITIONAL INSTRUCTIONS 6. NORMAL CHANGES YOU MAY EXPERIENCE AFTER ENDOSCOPY: EGD/ERCP COLONOSCOPY Sore throat after EGD/ERCP Passing of gas for several hours after A bloated feeling and belching from Some mild abdominal cramping air in stomach If a biopsy/polypectomy was done, you If a biopsy was done, you may spit may see some spotting of blood up some blood tinged mucous You may feel fatigued for the next 24-48 hours due to the prep and sedation 7. CALL YOUR PHYSICIAN IF YOU EXPERIENCE ANY OF THE FOLLOWING: A. Passing blood rectally or vomiting blood (color may be red or black) B. Severe abdominal pain or tenderness (that is not relieved by passing air) C. Fever, chills, or excessive sweating D. Persistent nausea or vomiting E. Redness or swelling at the IV site If you have additional questions, PLEASE call your doctor @ or the [facility] GI Unit [phone] documented in this encounter History of Present Illness * Ada Whitman RN - 08/07/2020 11:33 AM EST Pt left in wheelchair awake and stable. * Ada Whitman RN - 08/07/2020 11:23 AM EST Discussed d/c instructions with pt and pt family member. Both verbalize understanding. * Ada Whitman RN - 08/07/2020 10:56 AM EST Pt awake in post procedure. * Windy Cook RN - 08/07/2020 10:37 AM EST Pt. Tolerated well, abd. Soft . documented in this encounter Reason for Referral Specialty Diagnoses / Procedures Referred By Dilip rodrigez Referred To Contact Neurology Diagnoses Idiopathic progressive polyneuropathy Procedures CONSULT TO NEUROLOGY OFFICE/OUTPATIENT [facility] 60 MINUTES Bib Alva MD [address] [place] [address] Referral ID Status Reason Start Date Expiration Date Visits Requested Visits Authorized [id number] Authorized PCP Requested Referral 05/12/2024 05/12/2025 1 1 Additional Source Comments INFORMATION SOURCE (unrecogn ized section and content) DATE CREATED AUTHOR 01/04/2019 [facility] DATE CREATED AUTHOR AUTHOR'S ORGANIZ ATION 08/07/2020 [facility] DATE CREATED AUTHOR AUTHOR'S ORGANIZ ATION 08/08/2020 [facility] DATE CREATED AUTHOR AUTHOR'S ORGANIZ ATION 12/20/2023 [facility] DATE CREATED AUTHOR AUTHOR'S ORGANIZ ATION 05/07/2024 [facility] DATE CREATED AUTHOR AUTHOR'S ORGANIZ ATION 05/23/2024 [facility] EPIC DATE CREATED AUTHOR AUTHOR'S ORGANIZ ATION 05/27/2024 [facility] DATE CREATED AUTHOR AUTHOR'S ORGANIZ ATION 06/04/2024 [facility] DATE CREATED AUTHOR AUTHOR'S ORGANIZ ATION 07/22/2024 [facility] Reason for Visit (unrecogniz ed section and content) Status Reason Specialty Diagnoses / Procedures Referre d By Contact Referred To Contact Diagnoses Encounter for screening colonoscopy SCREENING Procedures MO COLONOSCOPY FLX DX W/COLLJ SPEC WHEN PFRMD COLORECTAL CANCER SCREENING, NOT HIGH RISK Jany Santizo, [address] [facility], [address] [place] [address] [place] Reason Comments Eye Exam Reason Onset Date Comments Appointment 10/21/2023 5 year follow up visit Reason Comments New patient exam Diarrhea Pt's bowels are norm ally regular, but for the last week pt has had some diarrhea normally in the evening. Pt has had abdominal cramping and bowels move. Pt had this for a few days, symptoms were better at the end of the week, but worsened again this week. Pt is wondering if this could be from her new medictions. Reason Comments Follow-up 5 years sleeve follo w up Reason Comments PVD Reason Comments New Patient Evaluation Reason Onset Date Comments EMG 05/04/2024 Specialty Diagnoses / Procedures Referred By Dilip rodrigez Referred To Contact [facility] Diagnoses Ataxia Procedures EMG(NEURO/NI) NERVE CONDUCTION STUDIES 9-10 STUDIES Bib Alva MD [address] [place] [address] [address] [facility] [place] [facility] [place] [address] Referral ID Status Reason Start Date Expiration Date V isits Requested Visits Authorized [id number] Closed Auto-Generate d Referral 09/28/2023 09/27/2024 1 1 Specialty Diagnoses / Procedures Referred By Dilip rodrigez Referred To Contact Neurology / NEUROLOGY EMG Diagnoses NO SHOW DO NOT CANCEL r E LE Procedures EMG STANDARD Bib Alva MD [address] [place] [facility] [address] [place] [address] Ne[facility] [address] [address] Referral ID Status Reason Start Date Expiration Date Visits Re quested Visits Authorized [id number] Closed 04/19/2024 07/18/2024 1 1 Reason Comments Establish Care F/u 1 month with Murphy murillo Xr (needs OP appt)Dx: L distal femur fx. Follow-up Care Teams (unrecognized sec tion and content) Lastex Operator Relationship Specialty Start Date End Date Marie Wesley DO [address] [place] [address] PCP - General Family Medicine 08/09/23 Lastex Operator Relationship Specialty Start Date End Date Marie Wesley DO [address] [facility] [place] [address] PCP - General Family Medicine 08/09/23 Lastex Operator Relationship Specialty Start Date End Date Marie Wesley DO [address] [place] [address] PCP - General Family Medicine 08/09/23 Lastex Operator Relationship Specialty Start Date End Date Marie Wesley DO [address] [place] [address] PCP - General Family Medicine 08/09/23 Lastex Operator Relationship Specialty Start Date End Date Fidelina Guillen MD [address] [place] [address] PCP - General Family Medicine 10/28/23 Loreta Mcmillan NP [address] [place] [address] Nurse Practitioner Family Medicine 10/28/23 Lastex Operator Relationship Specialty Start Date End Date Fidelina Guillen MD [facility] [place] [address] PCP - General Family Medicine 10/28/23 Loreta Mcmillan NP [facility] [place] [address] Nurse Practitioner Family Medicine 10/28/23 Lastex Operator Relationship Specialty Start Date End Date Marie Wesley DO [facility] [place] [address] PCP - General Family Medicine 08/09/23 Lastex Operator Relationship Specialty Start Date End Date Fidelina Guillen MD [facility] [place] [address] PCP - General Family Medicine 11/30/23 Lastex Operator Relationship Specialty Start Date End Date Fidelina Guillen MD [facility] [place] [address] PCP - General Family Medicine 11/30/23 Lastex Operator Relationship Specialty Start Date End Date Fidelina Guillen MD [address] [place] [address] PCP - General Family Medicine 11/30/23 Lastex Operator Relationship Specialty Start Date End Date Javan Julien MD [facility] [facility] [place] [address] PCP - General Neurology 05/13/18 Loreta Mcmillan CNP [facility] [place] [address] Referring Family Medicine 02/05/24 Lastex Operator Relationship Specialty Start Date End Date Javan Julien MD [address] [place] [address] PCP - General Neurology 05/13/18 Loreta Mcmillan CNP [address] [place] [address] Referring Family Medicine 02/05/24 Lastex Operator Relationship Specialty Start Date End Date Javan Julien MD [address] [place] [address] PCP - General Neurology 05/13/18 Loreta Mcmillan CNP [address] [place] [address] Referring Family Medicine 02/05/24 Lastex Operator Relationship Specialty Start Date End Date Javan Julien MD [address] [place] [address] PCP - General Neurology 05/13/18 Loreta Mcmillan CNP [address] [place] [address] Referring Family Medicine 02/05/24 Lastex Operator Relationship Specialty Start Date End Date Javan Julien MD [address] [place] [address] PCP - General Neurology 05/13/18 Loreta Mcmillan CNP [address] [place] [address] Referring Family Medicine 02/05/24 Lastex Operator Relationship Specialty Start Date End Date Wonderly, Fidelina B, MD [address] [place] [address] PCP - General Family Medicine 11/30/23 Lastex Operator Relationship Specialty Start Date End Date Fidelina Guillen MD [address] [place] [address] PCP - General Family Medicine 11/30/23 Source Comments (unrecognize d section and content) In the event this informatio n is protected by the Federal Confidentiality of Alcohol and Drug Abuse Patient Records regulations: The Federal rules restrict any use of the information to criminally investigate or prosecute any alcohol or drug abuse patient.[facility] Hospital[facility] the event this information is protected by the Federal Confidentiality of Alcohol and Drug Abuse Patient Records regulations: The Federal rules restrict any use of the information to criminally investigate or prosecute any alcohol or drug abuse patient.[facility] Hospital[facility] the event this information is protected by the Federal Confidentiality of Alcohol and Drug Abuse Patient Records regulations: The Federal rules restrict any use of the information to criminally investigate or prosecute any alcohol or drug abuse patient.[facility] the event this information is protected by the Federal Confidentiality of Alcohol and Drug Abuse Patient Records regulations: The Federal rules restrict any use of the information to criminally investigate or prosecute any alcohol or drug abuse patient.[facility] the event this information is protected by the Federal Confidentiality of Alcohol and Drug Abuse Patient Records regulations: The Federal rules restrict any use of the information to criminally investigate or prosecute any alcohol or drug abuse patient.[facility] FOR RECORDS PERTAINING TO PATIENTS WHO ARE OR HAVE BEEN ENROLLED IN A CHEMICAL DEPENDENCY/SUBSTANCEABUSE PROGRAM, SOME INFORMATION MAY BE OMITTED. This clinical summary was aggregated from multiple sources. Caution should be exercised in using it in the provision of clinical care. This summary normalizes information from multiple sources, and as a consequence, information in this document may materially change the coding, format and clinical context of patient data. In addition, data may be omitted in some cases. CLINICAL DECISIONS SHOULD BE BASED ON THE PRIMARY CLINICAL RECORDS. [facility] [employer] [facility]. provides no warranty or guarantee of the accuracy or completeness of information in this document.
== END 2024-07-29 17:03 | disposition home or self-care (01) ==
LOC: LAB 17:02
PROVIDERS: PCP Family Medicine; Visit Provider Nurse Practitioner Adult Health
DX: I48.0 Paroxysmal atrial fibrillation (principal)
CPT/HCPCS: 36415; 85610

== ENCOUNTER 2024-08-01 17:58 | Outpatient (REF) | payer MEDICARE, SELFPAY ==
[2024-08-01 19:09] LABS: INR 1.18; Prothrombin Time 12.3 sec (9.0-11.6)
== END 2024-08-01 17:59 | disposition home or self-care (01) ==
LOC: LAB 17:58
PROVIDERS: PCP Family Medicine; Visit Provider Nurse Practitioner Adult Health
DX: Z79.01 Long term (current) use of anticoagulants (principal)
CPT/HCPCS: 36415; 85610

== ENCOUNTER 2024-08-10 17:37 | Outpatient (REF) | payer MEDICARE, SELFPAY ==
--- OUTSIDE RECORDS SUMMARY | 2024-08-10 17:48 | XMS_ITS | CCD ---
Author Organization [facility] Care Team Providers Care Founder President And Ceo Name Role Phone MANJINDER, KHALED Admitting Unavailable [...] Primary Care Provider Loreta Mcmillan CNP Unavailable BIB ALVA Referring Unavailable MANJINDER, KHALED AHMAD Primary Care Unavailabl e ALVA, BIB Referring Unavailable MANJINDER, KHALED AHMAD Primary Care Unavailabl e ALVA, BIB Referring Unavailable MANJINDER, KHALED AHMAD Primary Care Unavailabl e ALVA, BIB Attending Unavailable MANJINDER, KHALED AHMAD Primary Care Unavailabl e DEYANIRA, LROETA A Referring Unavailable MARYJANE, MARIE G Attending [...] Care Unavailable SERVICE, JOBST Referring Unavailable WONDERLY, FIDLEINA B Primary Care Unavailable SERVICE, JOBST Referring [...] 06-02-20 18 Rash, Swelling, Shortness of Breath [facility] HMG-CoA Reductase Inhibitors (statins) (1 source) atorvastatin Drug Allergy 06-02-20 18 Other: See Comments [facility] NIFEdipine (1 source) NIFEdipine Drug Allergy 06-02-20 18 Other: See Comments [facility] Penicillins (antibiotic) (2 sources) Dicloxacillin Drug Allergy 06-02-20 18 Rash, Swelling, Shortness of Breath, Hives [facility] (3 sources) Cephalexin Drug Allergy 10-13-19 14 Unknown [facility] Repository (3 sources) NIFEdipine Drug Allergy 01-04-20 15 Unknown [facility] (6 sources) Penicillins; Translations: [PENICILLINS] Drug allergy (disorder) 10-13-19 14 [facility] (20 sources) Cephalexin; Translations: [CEPHALEXIN] Drug Allergy 03-27-20 14 Shortness Of Breath, Swelling, Rash [place] (2 sources) Penicillins Propensity to adverse reactions to drug 03-27-20 14 Shortness Of Breath, Swelling, Rash [place], [place] (17 sources) atorvastatin; Translations: [ATORVASTATIN] Drug Allergy 10-25-19 17 muscle cramps [facility] (2 sources) Dicloxacillin Drug Allergy Unknown [employer] Other (2 sources) Penicillin Drug Allergy Unknown [employer] Other (19 sources) Dicloxacillin; Translations: [DICLOXACILLIN SODIUM] Drug Allergy 07-28-20 16 Shortness Of Breath, Swelling, Rash [facility] (20 sources) NIFEdipine; Translations: [NIFEDIPINE] Drug Allergy 10-08-19 17 Hypotension, Other: See Comments [facility] (14 sources) Penicillin G; Translations: [PENICILLIN G POTASSIUM] Drug Allergy 09-27-20 22 Hives [facility] (15 sources) Penicillins Propensity to adverse reactions to drug 10-08-19 17 Hives, Swelling [facility] (7 sources) atorvastatin Drug Allergy 10-25-19 17 Other: See Comments [facility] (3 sources) Nifedipine Propensity to adverse reactions 10-08-[address] [facility] (3 sources) Penicillins Drug Intolerance 03-27-20 14 Hives, Rash, Shortness of breath, Swelling [facility] (1 source) atorvastatin; Translations: [ATORVASTATIN CALCIUM] Drug Allergy 06-02-20 18 [facility] Repository Medications Current Medications Medication Drug Class(es) [...] ascorbic acid 226 mg / beta carotene 48155 unt / cuprous oxide 0.8 mg / [...] 06/10/2024 Active take 1 capsule by mo [facility] three times daily gabapentin (NEURONTIN) 300 mg [...] [place]) by Combination route. 0 Active Dgwzep-TgHfj-Yzqfw-Ca -Magnolia 3 ( + Complete Multi) 18-0.8 & 290 MG therapy (3 sources) Wvmlib-TjOye-Sld hf-Ca -Magnolia 3 ( + Complete Multi) 18-0.8 & 290 MG therapy Take by mouth 0 Active ps967-eosn-vxypd acid 29 mg iron- 1 mg chew (5 sources) take 1 mg by mouth once daily li603-uusf-wqsrx acid 29 mg iron- 1 mg chew [...] mouth in the morning. 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: [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] Onset: 7 10-02-2023 Episodic Other aftercare (1 source) 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; Translations: [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] Onset: 8 Episodic [...] Garrido MD on 07/21/2024 8:31 AM Normal [facility] BASIC METABOLIC PANLon 06-10 Anion gap [Moles/Vol] 8 mmol/L Normal 5-15 [facility] Comment on above: Performed By: #### 4 8664-7, PINR, 74328-5, 1798-8, 3040-3, 5643-2 #### [facility] ([id number]) [address], [address] [place] [address] Calcium [Mass/Vol] 8.7 mg/dL Normal 8.5-10.5 [facility] Comment on above: Performed By: #### 4 8664-7, PINR, 17225-0, 1798-8, 3040-3, 5643-2 #### [facility] ([id number]) [address], [address] [place] [address] Chloride [Moles/Vol] 106 mmol/L Normal 98-109 [facility] Comment on above: Performed By: #### 4 8664-7, PINR, 84861-7, 1798-8, 3040-3, 5643-2 #### [facility] ([id number]) [address], [address] [place] [address] CO2 [Moles/Vol] 27 mmol/L Normal 22-32 [facility] Comment on above: Performed By: #### 4 8664-7, PINR, 24754-7, 1798-8, 3040-3, 5643-2 #### [facility] ([id number]) [address], [address] [place] [address] Creatinine [Mass/Vol] 1.58 mg/dL High 0.40-1.00 [facility] Comment on above: Result Comment: METH OD TRACEABLE TO IDMS STANDARD Performed By: #### 4 8664-7, PINR, 22572-4, 1798-8, 3040-3, 5643-2 #### [facility] ([id number]) [address], [address] [place] [address] GFR/1.73 sq M.predicted among non-blacks MDRD (S/P/Bld) [Vol rate/Area] 35 mL/min/{1.73_m2} Low >59 [facility] Comment on above: Result Comment: Reported eGFR is based on the CKD-EPI 2020 equation that does not use a race coefficient. Performed By: #### 4 8664-7, PINR, 38359-2, 1798-8, 3040-3, 5643-2 #### [facility] ([id number]) [address], [address] [place] [address] Glucose [Mass/Vol] 111 mg/dL High 65-99 [facility] Comment on above: Performed By: #### 4 8664-7, PINR, 86368-3, 1798-8, 3040-3, 5643-2 #### [facility] ([id number]) [address], [address] [place] [address] Potassium [Moles/Vol] 3.7 mmol/L Normal 3.5-5.0 [facility] Comment on above: Performed By: #### 4 8664-7, PINR, 97850-0, 1798-8, 3040-3, 5643-2 #### [facility] ([id number]) [address], [address] [place] [address] Sodium [Moles/Vol] 141 mmol/L Normal 134-146 [facility] Comment on above: Performed By: #### 4 8664-7, PINR, 78821-7, 1798-8, 3040-3, 5643-2 #### [facility] ([id number]) [address], [address] [place] [address] Urea nitrogen [Mass/Vol] 34 mg/dL High 5-27 [facility] Comment on above: Performed By: #### 4 8664-7, PINR, 91466-7, 1798-8, 3040-3, 5643-2 #### [facility] ([id number]) [address], [address] [place] [address] COMPLETE BLOOD COUNTon 06-10 Erythrocyte distribution width (RBC) [Ratio] 14.6 % Normal 11.5-15.0 [facility] Comment on above: Performed By: #### 4 8664-7, PINR, 79271-1, 1798-8, 3040-3, 5643-2 #### [facility] ([id number]) [address], [address] [place] [address] Hematocrit (Bld) [Volume fraction] 25.1 % Low 35-47 [facility] Comment on above: Performed By: #### 4 8664-7, PINR, 14537-4, 1798-8, 3040-3, 5643-2 #### [facility] ([id number]) [address], [address] [place] [address] Hemoglobin (Bld) [Mass/Vol] 8.2 g/dL Low 11.7-15.5 [facility] Comment on above: Performed By: #### 4 8664-7, PINR, 57293-4, 1798-8, 3040-3, 5643-2 #### [facility] ([id number]) [address], [facility] [address] [place] [address] MCH (RBC) [Entitic mass] 31.6 pg Normal 27-34 [facility] Comment on above: Performed By: #### 4 8664-7, PINR, 95804-3, 1798-8, 3040-3, 5643-2 #### [facility] ([id number]) [address], [address] [place] [address] MCHC (RBC) [Mass/Vol] 32.6 g/dL Normal 32-36 [facility] Comment on above: Performed By: #### 4 8664-7, PINR, 00637-8, 1798-8, 3040-3, 5643-2 #### [facility] ([id number]) [address], [address] [place] [address] MCV (RBC) [Entitic vol] 97 fL Normal 80-100 [facility] Comment on above: Performed By: #### 4 8664-7, PINR, 78419-2, 1798-8, 3040-3, 5643-2 #### [facility] ([id number]) [address], [address] [place] [address] Platelet mean volume (Bld) [Entitic vol] 7.1 fL Normal 7-12 [facility] Comment on above: Performed By: #### 4 8664-7, PINR, 17750-7, 1798-8, 3040-3, 5643-2 #### [facility] ([id number]) [address], [address] [place] [address] Platelets (Bld) [#/Vol] 227 10*3/uL Normal 150-450 [facility] Comment on above: Performed By: #### 4 8664-7, PINR, 54762-1, 1798-8, 3040-3, 5643-2 #### [facility] ([id number]) [address], [address] [place] [address] RBC COUNT 2.60 X10E12/L Low 3.80-5.20 [facility] Comment on above: Performed By: #### 4 8664-7, PINR, 93235-6, 1798-8, 3040-3, 5643-2 #### [facility] ([id number]) [address], [address] [place] [address] WBC (Bld) [#/Vol] 7.9 10*3/uL Normal 4.0-11.0 [facility] Comment on above: Performed By: #### 4 8664-7, PINR, 43287-7, 1798-8, 3040-3, 5643-2 #### [facility] ([id number]) [address], [address] [place] [address] PROTIME AND INRon 06-10-2024 INR Coag (PPP) [Relative time] 2.6 {INR} High 0.8-1.1 [facility] Comment on above: Performed By: #### 4 8664-7, PINR, 20201-2, 1798-8, 3040-3, 5643-2 #### [facility] ([id number]) [address], [address] [place] [address] PT Coag (PPP) [Time] 29.1 s High 9.8-13.2 [facility] Comment on above: Performed By: #### 4 8664-7, PINR, 13883-3, 1798-8, 3040-3, 5643-2 #### [facility] ([id number]) [address], [address] [place] [address] BASIC METABOLIC PANLon 06-09 Anion gap [Moles/Vol] 8 mmol/L Normal 5-15 [facility] Comment on above: Performed By: #### 4 8664-7, PINR, 71498-6, 1798-8, 3040-3, 5643-2 #### [facility] ([id number]) [address], [address] [place] [address] Calcium [Mass/Vol] 8.7 mg/dL Normal 8.5-10.5 [facility] Comment on above: Performed By: #### 4 8664-7, PINR, 70412-6, 1798-8, 3040-3, 5643-2 #### [facility] ([id number]) [address], [address] [place] [address] Chloride [Moles/Vol] 106 mmol/L Normal 98-109 [facility] Comment on above: Performed By: #### 4 8664-7, PINR, 32828-6, 1798-8, 3040-3, 5643-2 #### [facility] ([id number]) [address], [address] [place] [address] CO2 [Moles/Vol] 27 mmol/L Normal 22-32 [facility] Comment on above: Performed By: #### 4 8664-7, PINR, 22353-3, 1798-8, 3040-3, 5643-2 #### [facility] ([id number]) [address], [address] [place] [address] Creatinine [Mass/Vol] 1.40 mg/dL High 0.40-1.00 [facility] Comment on above: Result Comment: METH OD TRACEABLE TO IDMS STANDARD Performed By: #### 4 8664-7, PINR, 90293-7, 1798-8, 3040-3, 5643-2 #### [facility] ([id number]) [address], [address] [place] [address] GFR/1.73 sq M.predicted among non-blacks MDRD (S/P/Bld) [Vol rate/Area] 41 mL/min/{1.73_m2} Low >59 [facility] Comment on above: Result Comment: Reported eGFR is based on the CKD-EPI 2020 equation that does not use a race coefficient. Performed By: #### 4 8664-7, PINR, 66442-4, 1798-8, 3040-3, 5643-2 #### [facility] ([id number]) [address], [address] [place] [address] Glucose [Mass/Vol] 89 mg/dL Normal 65-99 [facility] Comment on above: Performed By: #### 4 8664-7, PINR, 52160-4, 1798-8, 3040-3, 5643-2 #### [facility] ([id number]) [address], [address] [place] [address] Potassium [Moles/Vol] 4.3 mmol/L Normal 3.5-5.0 [facility] Comment on above: Performed By: #### 4 8664-7, PINR, 10928-0, 1798-8, 3040-3, 5643-2 #### [facility] ([id number]) [address], [address] [place] [address] Sodium [Moles/Vol] 141 mmol/L Normal 134-146 [facility] Comment on above: Performed By: #### 4 8664-7, PINR, 82392-6, 1798-8, 3040-3, 5643-2 #### [facility] ([id number]) [address], [address] [place] [address] Urea nitrogen [Mass/Vol] 31 mg/dL High 5-27 [facility] Comment on above: Performed By: #### 4 8664-7, PINR, 82123-5, 1798-8, 3040-3, 5643-2 #### [facility] ([id number]) [address], [facility] [address] [place] [address] COMPLETE BLOOD COUNTon 06-09 Erythrocyte distribution width (RBC) [Ratio] 14.1 % Normal 11.5-15.0 [facility] Comment on above: Performed By: #### 4 8664-7, PINR, 90019-3, 1798-8, 3040-3, 5643-2 #### [facility] ([id number]) [address], [facility] [address] [place] [address] Hematocrit (Bld) [Volume fraction] 23.7 % Low 35-47 [facility] Comment on above: Performed By: #### 4 8664-7, PINR, 18366-4, 1798-8, 3040-3, 5643-2 #### [facility] ([id number]) [address], [facility] [address] [place] [address] Hemoglobin (Bld) [Mass/Vol] 7.7 g/dL Low 11.7-15.5 [facility] Comment on above: Performed By: #### 4 8664-7, PINR, 04471-1, 1798-8, 3040-3, 5643-2 #### [facility] ([id number]) [address] [address] [place] [address] MCH (RBC) [Entitic mass] 31.3 pg Normal 27-34 [facility] Comment on above: Performed By: #### 4 8664-7, PINR, 57039-7, 1798-8, 3040-3, 5643-2 #### [facility] ([id number]) [address], [facility] [address] [place] [address] MCHC (RBC) [Mass/Vol] 32.6 g/dL Normal 32-36 [facility] Comment on above: Performed By: #### 4 8664-7, PINR, 87189-4, 1798-8, 3040-3, 5643-2 #### [facility] ([id number]) [address], [facility] [address] [place] [address] MCV (RBC) [Entitic vol] 96 fL Normal 80-100 [facility] Comment on above: Performed By: #### 4 8664-7, PINR, 99701-6, 1798-8, 3040-3, 5643-2 #### [facility] ([id number]) [address], [address] [address] Platelet mean volume (Bld) [Entitic vol] 7.5 fL Normal 7-12 [facility] Comment on above: Performed By: #### 4 8664-7, PINR, 68817-9, 1798-8, 3040-3, 5643-2 #### [facility] ([id number]) [address] [address] Platelets (Bld) [#/Vol] 211 10*3/uL Normal 150-450 [facility] Comment on above: Performed By: #### 4 8664-7, PINR, 49483-1, 1798-8, 3040-3, 5643-2 #### [facility] ([id number]) [address] [address] [place] [address] RBC COUNT 2.46 X10E12/L Low 3.80-5.20 [facility] Comment on above: Performed By: #### 4 8664-7, PINR, 15625-9, 1798-8, 3040-3, 5643-2 #### [facility] ([id number]) [address], [address] [place] [address] WBC (Bld) [#/Vol] 7.9 10*3/uL Normal 4.0-11.0 [facility] Comment on above: Performed By: #### 4 8664-7, PINR, 08165-6, 1798-8, 3040-3, 5643-2 #### [facility] ([id number]) [address], [address] [place] [address] PROTIME AND INRon 06-09-2024 INR Coag (PPP) [Relative time] 2.5 {INR} High 0.8-1.1 [facility] Comment on above: Performed By: #### 4 8664-7, PINR, 23693-3, 1798-8, 3040-3, 5643-2 #### [facility] ([id number]) [address], [address] [place] [address] PT Coag (PPP) [Time] 28.5 s High 9.8-13.2 [facility] Comment on above: Performed By: #### 4 8664-7, PINR, 28838-2, 1798-8, 3040-3, 5643-2 #### [facility] ([id number]) [address], [address] [place] [address] BASIC METABOLIC PANLon 06-08 Anion gap [Moles/Vol] 8 mmol/L Normal 5-15 [facility] Comment on above: Performed By: #### 4 8664-7, PINR, 07431-7, 1798-8, 3040-3, 5643-2 #### [facility] ([id number]) [address], [address] [place] [address] Calcium [Mass/Vol] 8.3 mg/dL Low 8.5-10.5 [facility] Comment on above: Performed By: #### 4 8664-7, PINR, 06245-4, 1798-8, 3040-3, 5643-2 #### [facility] ([id number]) [address] [address] Chloride [Moles/Vol] 107 mmol/L Normal 98-109 [facility] Comment on above: Performed By: #### 4 8664-7, PINR, 67918-9, 1798-8, 3040-3, 5643-2 #### [facility] ([id number]) [address] [address] CO2 [Moles/Vol] 25 mmol/L Normal 22-32 [facility] Comment on above: Performed By: #### 4 8664-7, PINR, 82292-3, 1798-8, 3040-3, 5643-2 #### [facility] ([id number]) [address] [address] Creatinine [Mass/Vol] 1.35 mg/dL High 0.40-1.00 [facility] Comment on above: Result Comment: METH OD TRACEABLE TO IDMS STANDARD Performed By: #### 4 8664-7, PINR, 44117-0, 1798-8, 3040-3, 5643-2 #### [facility] ([id number]) [address] [address] GFR/1.73 sq M.predicted among non-blacks MDRD (S/P/Bld) [Vol rate/Area] 43 mL/min/{1.73_m2} Low >59 [facility] Comment on above: Result Comment: Reported eGFR is based on the CKD-EPI 2020 equation that does not use a race coefficient. Performed By: #### 4 8664-7, PINR, 38967-9, 1798-8, 3040-3, 5643-2 #### [facility] ([id number]) [address], [address] [place] [address] Glucose [Mass/Vol] 92 mg/dL Normal 65-99 [facility] Comment on above: Performed By: #### 4 8664-7, PINR, 29210-1, 1798-8, 3040-3, 5643-2 #### [facility] ([id number]) [address], [address] [place] [address] Potassium [Moles/Vol] 3.7 mmol/L Normal 3.5-5.0 [facility] Comment on above: Performed By: #### 4 8664-7, PINR, 49534-2, 1798-8, 3040-3, 5643-2 #### [facility] ([id number]) [address], [address] [place] [address] Sodium [Moles/Vol] 140 mmol/L Normal 134-146 [facility] Comment on above: Performed By: #### 4 8664-7, PINR, 07090-2, 1798-8, 3040-3, 5643-2 #### [facility] ([id number]) [address], [address] [place] [address] Urea nitrogen [Mass/Vol] 34 mg/dL High 5-27 [facility] Comment on above: Performed By: #### 4 8664-7, PINR, 38132-1, 1798-8, 3040-3, 5643-2 #### [facility] ([id number]) [address], [address] [place] [address] COMPLETE BLOOD COUNTon 06-08 Erythrocyte distribution width (RBC) [Ratio] 13.9 % Normal 11.5-15.0 [facility] Comment on above: Performed By: #### 4 8664-7, PINR, 56279-9, 1798-8, 3040-3, 5643-2 #### [facility] ([id number]) [address], [address] [place] [address] Hematocrit (Bld) [Volume fraction] 22.5 % Low 35-47 [facility] Comment on above: Performed By: #### 4 8664-7, PINR, 80885-1, 1798-8, 3040-3, 5643-2 #### [facility] ([id number]) [address], [facility] [address] [place] [address] Hemoglobin (Bld) [Mass/Vol] 7.3 g/dL Low 11.7-15.5 [facility] Comment on above: Performed By: #### 4 8664-7, PINR, 53695-7, 1798-8, 3040-3, 5643-2 #### [facility] ([id number]) [address] [address] MCH (RBC) [Entitic mass] 31.0 pg Normal 27-34 [facility] Comment on above: Performed By: #### 4 8664-7, PINR, 65619-3, 1797-8, 3040-3, 5643-2 #### [facility] ([id number]) [address], [address] [address] MCHC (RBC) [Mass/Vol] 32.5 g/dL Normal 32-36 [facility] Comment on above: Performed By: #### 4 8664-7, PINR, 98414-0, 1797-8, 3040-3, 5643-2 #### [facility] ([id number]) [address] [address] MCV (RBC) [Entitic vol] 95 fL Normal 80-100 [facility] Comment on above: Performed By: #### 4 8664-7, PINR, 18234-5, 1798-8, 3040-3, 5643-2 #### [facility] ([id number]) [address] [address] [place] [address] Platelet mean volume (Bld) [Entitic vol] 7.7 fL Normal 7-12 [facility] Comment on above: Performed By: #### 4 8664-7, PINR, 04256-4, 1798-8, 3040-3, 5643-2 #### [facility] ([id number]) [address], [address] [place] [address] Platelets (Bld) [#/Vol] 187 10*3/uL Normal 150-450 [facility] Comment on above: Performed By: #### 4 8664-7, PINR, 84972-2, 1798-8, 3040-3, 5643-2 #### [facility] ([id number]) [address], [address] [place] [address] RBC COUNT 2.36 X10E12/L Low 3.80-5.20 [facility] Comment on above: Performed By: #### 4 8664-7, PINR, 10620-4, 1798-8, 3040-3, 5643-2 #### [facility] ([id number]) [address], [address] [place] [address] WBC (Bld) [#/Vol] 7.2 10*3/uL Normal 4.0-11.0 [facility] Comment on above: Performed By: #### 4 8664-7, PINR, 02638-0, 1798-8, 3040-3, 5643-2 #### [facility] ([id number]) [address], [address] [place] [address] PROTIME AND INRon 06-08-2024 INR Coag (PPP) [Relative time] 2.2 {INR} High 0.8-1.1 [facility] Comment on above: Performed By: #### 4 8664-7, PINR, 40333-0, 1798-8, 3040-3, 5643-2 #### [facility] ([id number]) [address], [address] [place] [address] PT Coag (PPP) [Time] 24.4 s High 9.8-13.2 [facility] Comment on above: Performed By: #### 4 8664-7, PINR, 36077-8, 1798-8, 3040-3, 5643-2 #### [facility] ([id number]) [address], [address] [place] [address] BASIC METABOLIC PANLon 06-07 Anion gap [Moles/Vol] 5 mmol/L Normal 5-15 [facility] Comment on above: Performed By: #### 4 8664-7, PINR, 75544-4, 1798-8, 3040-3, 5643-2 #### [facility] ([id number]) [address], [address] [place] [address] Calcium [Mass/Vol] 8.7 mg/dL Normal 8.5-10.5 [facility] Comment on above: Performed By: #### 4 8664-7, PINR, 21732-8, 1798-8, 3040-3, 5643-2 #### [facility] ([id number]) [address], [address] [place] [address] Chloride [Moles/Vol] 108 mmol/L Normal 98-109 [facility] Comment on above: Performed By: #### 4 8664-7, PINR, 07079-6, 1798-8, 3040-3, 5643-2 #### [facility] ([id number]) [address], [address] [place] [address] CO2 [Moles/Vol] 27 mmol/L Normal 22-32 [facility] Comment on above: Performed By: #### 4 8664-7, PINR, 14011-2, 1798-8, 3040-3, 5643-2 #### [facility] ([id number]) [address], [address] [place] [address] Creatinine [Mass/Vol] 1.61 mg/dL High 0.40-1.00 [facility] Comment on above: Result Comment: METH OD TRACEABLE TO IDMS STANDARD Performed By: #### 4 8664-7, PINR, 26973-4, 1798-8, 3040-3, 5643-2 #### [facility] ([id number]) [address], [address] [place] [address] GFR/1.73 sq M.predicted among non-blacks MDRD (S/P/Bld) [Vol rate/Area] 34 mL/min/{1.73_m2} Low >59 [facility] Comment on above: Result Comment: Reported eGFR is based on the CKD-EPI 2020 equation that does not use a race coefficient. Performed By: #### 4 8664-7, PINR, 94475-9, 1798-8, 3040-3, 5643-2 #### [facility] ([id number]) [address], [address] [place] [address] Glucose [Mass/Vol] 101 mg/dL High 65-99 [facility] Comment on above: Performed By: #### 4 8664-7, PINR, 61033-3, 1798-8, 3040-3, 5643-2 #### [facility] ([id number]) [address], [address] [place] [address] Potassium [Moles/Vol] 3.8 mmol/L Normal 3.5-5.0 [facility] Comment on above: Performed By: #### 4 8664-7, PINR, 04156-3, 1798-8, 3040-3, 5643-2 #### [facility] ([id number]) [address], [address] [place] [address] Sodium [Moles/Vol] 140 mmol/L Normal 134-146 [facility] Comment on above: Performed By: #### 4 8664-7, PINR, 34634-7, 1798-8, 3040-3, 5643-2 #### [facility] ([id number]) [address], [address] [place] [address] Urea nitrogen [Mass/Vol] 37 mg/dL High 5-27 [facility] Comment on above: Performed By: #### 4 8664-7, PINR, 10545-4, 1798-8, 3040-3, 5643-2 #### [facility] ([id number]) [address], [address] [place] [address] COMPLETE BLOOD COUNTon 06-07 Erythrocyte distribution width (RBC) [Ratio] 13.8 % Normal 11.5-15.0 [facility] Comment on above: Performed By: #### 4 8664-7, PINR, 49084-5, 1798-8, 3040-3, 5643-2 #### [facility] ([id number]) [address], [address] [place] [address] Hematocrit (Bld) [Volume fraction] 23.8 % Low 35-47 [facility] Comment on above: Performed By: #### 4 8664-7, PINR, 31478-0, 1798-8, 3040-3, 5643-2 #### [facility] ([id number]) [address], [address] [place] [address] Hemoglobin (Bld) [Mass/Vol] 7.7 g/dL Low 11.7-15.5 [facility] Comment on above: Performed By: #### 4 8664-7, PINR, 68954-4, 1798-8, 3040-3, 5643-2 #### [facility] ([id number]) [address], [address] [place] [address] MCH (RBC) [Entitic mass] 31.0 pg Normal 27-34 [facility] Comment on above: Performed By: #### 4 8664-7, PINR, 39494-3, 1798-8, 3040-3, 5643-2 #### [facility] ([id number]) [address], [address] [place] [address] MCHC (RBC) [Mass/Vol] 32.3 g/dL Normal 32-36 [facility] Comment on above: Performed By: #### 4 8664-7, PINR, 88703-1, 1798-8, 3040-3, 5643-2 #### [facility] ([id number]) [address], [facility] [address] [place] [address] MCV (RBC) [Entitic vol] 96 fL Normal 80-100 [facility] Comment on above: Performed By: #### 4 8664-7, PINR, 44578-5, 1798-8, 3040-3, 5643-2 #### [facility] ([id number]) [address], [address] [place] [address] Platelet mean volume (Bld) [Entitic vol] 7.7 fL Normal 7-12 [facility] Comment on above: Performed By: #### 4 8664-7, PINR, 71324-5, 1798-8, 3040-3, 5643-2 #### [facility] ([id number]) [address], [address] [place] [address] Platelets (Bld) [#/Vol] 186 10*3/uL Normal 150-450 [facility] Comment on above: Performed By: #### 4 8664-7, PINR, 71909-8, 1798-8, 3040-3, 5643-2 #### [facility] ([id number]) [address], [address] [place] [address] RBC COUNT 2.48 X10E12/L Low 3.80-5.20 [facility] Comment on above: Performed By: #### 4 8664-7, PINR, 98984-9, 1798-8, 3040-3, 5643-2 #### [facility] ([id number]) [address], [address] [place] [address] WBC (Bld) [#/Vol] 7.4 10*3/uL Normal 4.0-11.0 [facility] Comment on above: Performed By: #### 4 8664-7, PINR, 35181-6, 1798-8, 3040-3, 5643-2 #### [facility] ([id number]) [address], [address] [place] [address] PROTIME AND INRon 06-07-2024 INR Coag (PPP) [Relative time] 1.8 {INR} High 0.8-1.1 [facility] Comment on above: Performed By: #### 4 8664-7, PINR, 81780-3, 1798-8, 3040-3, 5643-2 #### [facility] ([id number]) [address], [address] [place] [address] PT Coag (PPP) [Time] 21.0 s High 9.8-13.2 [facility] Comment on above: Performed By: #### 4 8664-7, PINR, 86718-5, 1798-8, 3040-3, 5643-2 #### [facility] ([id number]) [address], [address] [place] [address] BASIC METABOLIC PANLon 06-06 Anion gap [Moles/Vol] 7 mmol/L Normal 5-15 [facility] Comment on above: Performed By: #### 4 8664-7, PINR, 10953-5, 1798-8, 3040-3, 5643-2 #### [facility] ([id number]) [address], [address] [place] [address] Calcium [Mass/Vol] 8.5 mg/dL Normal 8.5-10.5 [facility] Comment on above: Performed By: #### 4 8664-7, PINR, 54423-6, 1798-8, 3040-3, 5643-2 #### [facility] ([id number]) [address], [address] [place] [address] Chloride [Moles/Vol] 110 mmol/L High 98-109 [facility] Comment on above: Performed By: #### 4 8664-7, PINR, 36508-2, 1798-8, 3040-3, 5643-2 #### [facility] ([id number]) [address], [address] [place] [address] CO2 [Moles/Vol] 24 mmol/L Normal 22-32 [facility] Comment on above: Performed By: #### 4 8664-7, PINR, 39496-0, 1798-8, 3040-3, 5643-2 #### [facility] ([id number]) [address], [address] [place] [address] Creatinine [Mass/Vol] 1.96 mg/dL High 0.40-1.00 [facility] Comment on above: Result Comment: METH OD TRACEABLE TO IDMS STANDARD Performed By: #### 4 8664-7, PINR, 31260-7, 1798-8, 3040-3, 5643-2 #### [facility] ([id number]) [address], [address] [place] [address] GFR/1.73 sq M.predicted among non-blacks MDRD (S/P/Bld) [Vol rate/Area] 27 mL/min/{1.73_m2} Low >59 [facility] Comment on above: Result Comment: Reported eGFR is based on the CKD-EPI 2020 equation that does not use a race coefficient. Performed By: #### 4 8664-7, PINR, 81262-5, 1798-8, 3040-3, 5643-2 #### [facility] ([id number]) [address], [address] [place] [address] Glucose [Mass/Vol] 111 mg/dL High 65-99 [facility] Comment on above: Performed By: #### 4 8664-7, PINR, 30548-7, 1798-8, 3040-3, 5643-2 #### [facility] ([id number]) [address], [address] [place] [address] Potassium [Moles/Vol] 3.9 mmol/L Normal 3.5-5.0 [facility] Comment on above: Performed By: #### 4 8664-7, PINR, 30282-2, 1798-8, 3040-3, 5643-2 #### [facility] ([id number]) [address], [address] [place] [address] Sodium [Moles/Vol] 141 mmol/L Normal 134-146 [facility] Comment on above: Performed By: #### 4 8664-7, PINR, 28881-5, 1798-8, 3040-3, 5643-2 #### [facility] ([id number]) [address], [address] [place] [address] Urea nitrogen [Mass/Vol] 40 mg/dL High 5-27 [facility] Comment on above: Performed By: #### 4 8664-7, PINR, 35595-2, 1798-8, 3040-3, 5643-2 #### [facility] ([id number]) [address], [address] [place] [address] COMPLETE BLOOD COUNTon 06-06 Erythrocyte distribution width (RBC) [Ratio] 13.7 % Normal 11.5-15.0 [facility] Comment on above: Performed By: #### 4 8664-7, PINR, 10223-2, 1798-8, 3040-3, 5643-2 #### [facility] ([id number]) [address], [facility] [address] [place] [address] Hematocrit (Bld) [Volume fraction] 21.7 % Low 35-47 [facility] Comment on above: Performed By: #### 4 8664-7, PINR, 95100-7, 1798-8, 3040-3, 5643-2 #### [facility] ([id number]) [address], [facility] [address] [place] [address] Hemoglobin (Bld) [Mass/Vol] 7.1 g/dL Low 11.7-15.5 [facility] Comment on above: Performed By: #### 4 8664-7, PINR, 18294-7, 1798-8, 3040-3, 5643-2 #### [facility] ([id number]) [address], [facility] [address] [place] [address] MCH (RBC) [Entitic mass] 31.3 pg Normal 27-34 [facility] Comment on above: Performed By: #### 4 8664-7, PINR, 43273-6, 1798-8, 3040-3, 5643-2 #### [facility] ([id number]) [address], [facility] [address] [place] [address] MCHC (RBC) [Mass/Vol] 32.6 g/dL Normal 32-36 [facility] Comment on above: Performed By: #### 4 8664-7, PINR, 02346-1, 1798-8, 3040-3, 5643-2 #### [facility] ([id number]) [address] [address] MCV (RBC) [Entitic vol] 96 fL Normal 80-100 [facility] Comment on above: Performed By: #### 4 8664-7, PINR, 36011-0, 1798-8, 3040-3, 5643-2 #### [facility] ([id number]) [address], [address] [place] [address] Platelet mean volume (Bld) [Entitic vol] 8.1 fL Normal 7-12 [facility] Comment on above: Performed By: #### 4 8664-7, PINR, 38274-9, 1798-8, 3040-3, 5643-2 #### [facility] ([id number]) [address], [address] [place] [address] Platelets (Bld) [#/Vol] 151 10*3/uL Normal 150-450 [facility] Comment on above: Performed By: #### 4 8664-7, PINR, 05715-4, 8-8, 3040-3, 5643-2 #### [facility] ([id number]) [address], [address] [place] [address] RBC COUNT 2.26 X10E12/L Low 3.80-5.20 [facility] Comment on above: Performed By: #### 4 8664-7, PINR, 04813-8, 1798-8, 3040-3, 5643-2 #### [facility] ([id number]) [address], [address] [place] [address] WBC (Bld) [#/Vol] 7.5 10*3/uL Normal 4.0-11.0 [facility] Comment on above: Performed By: #### 4 8664-7, PINR, 51698-7, 1798-8, 3040-3, 5643-2 #### [facility] ([id number]) [address], [address] [place] [address] PROTIME AND INRon 06-06-2024 INR Coag (PPP) [Relative time] 1.6 {INR} High 0.8-1.1 [facility] Comment on above: Performed By: #### 4 8664-7, PINR, 30706-7, 1798-8, 3040-3, 5643-2 #### [facility] ([id number]) [address], [address] [place] [address] PT Coag (PPP) [Time] 17.8 s High 9.8-13.2 [facility] Comment on above: Performed By: #### 4 8664-7, PINR, 22422-5, 1798-8, 3040-3, 5643-2 #### [facility] ([id number]) [address], [address] [place] [address] BASIC METABOLIC PANLon 06-05 Anion gap [Moles/Vol] 8 mmol/L Normal 5-15 [facility] Comment on above: Performed By: #### 4 8664-7, PINR, 78141-2, 1798-8, 3040-3, 5643-2 #### [facility] ([id number]) [address], [address] [place] [address] Calcium [Mass/Vol] 8.4 mg/dL Low 8.5-10.5 [facility] Comment on above: Performed By: #### 4 8664-7, PINR, 41079-2, 1798-8, 3040-3, 5643-2 #### [facility] ([id number]) [address], [address] [place] [address] Chloride [Moles/Vol] 109 mmol/L Normal 98-109 [facility] Comment on above: Performed By: #### 4 8664-7, PINR, 03187-7, 1798-8, 3040-3, 5643-2 #### [facility] ([id number]) [address], [address] [place] [address] CO2 [Moles/Vol] 23 mmol/L Normal 22-32 [facility] Comment on above: Performed By: #### 4 8664-7, PINR, 13735-9, 1798-8, 3040-3, 5643-2 #### [facility] ([id number]) [address], [facility] [address] [place] [address] Creatinine [Mass/Vol] 2.06 mg/dL High 0.40-1.00 [facility] Comment on above: Result Comment: METH OD TRACEABLE TO IDMS STANDARD Performed By: #### 4 8664-7, PINR, 82711-0, 8-8, 3040-3, 5643-2 #### [facility] ([id number]) [address], [facility] [address] [place] [address] GFR/1.73 sq M.predicted among non-blacks MDRD (S/P/Bld) [Vol rate/Area] 26 mL/min/{1.73_m2} Low >59 [facility] Comment on above: Result Comment: Reported eGFR is based on the CKD-EPI 2020 equation that does not use a race coefficient. Performed By: #### 4 8664-7, PINR, 56334-7, 8-8, 3040-3, 5643-2 #### [facility] ([id number]) [address], [facility] [address] [place] [address] Glucose [Mass/Vol] 112 mg/dL High 65-99 [facility] Comment on above: Performed By: #### 4 8664-7, PINR, 22853-5, 8-8, 3040-3, 5643-2 #### [facility] ([id number]) [address], [address] [place] [address] Potassium [Moles/Vol] 4.1 mmol/L Normal 3.5-5.0 [facility] Comment on above: Performed By: #### 4 8664-7, PINR, 98970-7, 1798-8, 3040-3, 5643-2 #### [facility] ([id number]) [address], [address] [place] [address] Sodium [Moles/Vol] 140 mmol/L Normal 134-146 [facility] Comment on above: Performed By: #### 4 8664-7, PINR, 25841-4, 1798-8, 3040-3, 5643-2 #### [facility] ([id number]) [address], [address] [place] [address] Urea nitrogen [Mass/Vol] 45 mg/dL High 5-27 [facility] Comment on above: Performed By: #### 4 8664-7, PINR, 65658-7, 1798-8, 3040-3, 5643-2 #### [facility] ([id number]) [address], [facility] [address] [place] [address] CBC AND AUTO DIFFon 06-05-20 24 ABSOLUTE BASOPHIL 0.0 X10E9/L Normal 0.0-0.2 [facility] Comment on above: Performed By: #### 4 8664-7, PINR, 79864-8, 1798-8, 3040-3, 5643-2 #### [facility] ([id number]) [address], [address] [place] [address] ABSOLUTE NEUTROPHIL 6.8 X10E9/L High 1.5-6.6 [facility] Comment on above: Performed By: #### 4 8664-7, PINR, 90103-8, 1798-8, 3040-3, 5643-2 #### [facility] ([id number]) [address], [address] [place] [address] Basophils/100 WBC (Bld) 0.3 % Normal [facility] Comment on above: Performed By: #### 4 8664-7, PINR, 03572-7, 1798-8, 3040-3, 5643-2 #### [facility] ([id number]) [address], [address] [place] [address] Eosinophils (Bld) [#/Vol] 0.1 10*3/uL Normal 0.0-0.4 [facility] Comment on above: Performed By: #### 4 8664-7, PINR, 76795-9, 1798-8, 3040-3, 5643-2 #### [facility] ([id number]) [address], [address] [place] [address] Eosinophils/100 WBC (Bld) 0.6 % Normal [facility] Comment on above: Performed By: #### 4 8664-7, PINR, 07672-2, 1798-8, 3040-3, 5643-2 #### [facility] ([id number]) [address], [facility] [address] [place] [address] Erythrocyte distribution width (RBC) [Ratio] 13.2 % Normal 11.5-15.0 [facility] Comment on above: Performed By: #### 4 8664-7, PINR, 42638-8, 1798-8, 3040-3, 5643-2 #### [facility] ([id number]) [address], [facility] [address] [place] [address] Hematocrit (Bld) [Volume fraction] 23.5 % Low 35-47 [facility] Comment on above: Performed By: #### 4 8664-7, PINR, 91774-4, 1798-8, 3040-3, 5643-2 #### [facility] ([id number]) [address], [address] [place] [address] Hemoglobin (Bld) [Mass/Vol] 7.6 g/dL Low 11.7-15.5 [facility] Comment on above: Performed By: #### 4 8664-7, PINR, 40337-1, 1798-8, 3040-3, 5643-2 #### [facility] ([id number]) [address], [facility] [address] [place] [address] Lymphocytes (Bld) [#/Vol] 0.8 10*3/uL Low 1.0-3.5 [facility] Comment on above: Performed By: #### 4 8664-7, PINR, 38419-6, 1798-8, 3040-3, 5643-2 #### [facility] ([id number]) [address], [address] [place] [address] Lymphocytes/100 WBC (Bld) 9.5 % Normal [facility] Comment on above: Performed By: #### 4 8664-7, PINR, 39450-1, 8-8, 3040-3, 5643-2 #### [facility] ([id number]) [address], [facility] [address] [place] [address] MCH (RBC) [Entitic mass] 30.9 pg Normal 27-34 [facility] Comment on above: Performed By: #### 4 8664-7, PINR, 47400-6, 1797-8, 3040-3, 5643-2 #### [facility] ([id number]) [address], [address] [place] [address] MCHC (RBC) [Mass/Vol] 32.4 g/dL Normal 32-36 [facility] Comment on above: Performed By: #### 4 8664-7, PINR, 49552-7, 8-8, 3040-3, 5643-2 #### [facility] ([id number]) [address], [address] [place] [address] MCV (RBC) [Entitic vol] 96 fL Normal 80-100 [facility] Comment on above: Performed By: #### 4 8664-7, PINR, 77732-7, 1798-8, 3040-3, 5643-2 #### [facility] ([id number]) [address], [address] [place] [address] Monocytes (Bld) [#/Vol] 1.0 10*3/uL High 0-0.9 [facility] Comment on above: Performed By: #### 4 8664-7, PINR, 64691-7, 1798-8, 3040-3, 5643-2 #### [facility] ([id number]) [address], [address] [place] [address] Monocytes/100 WBC (Bld) 11.6 % Normal [facility] Comment on above: Performed By: #### 4 8664-7, PINR, 59648-8, 1798-8, 3040-3, 5643-2 #### [facility] ([id number]) [address], [address] [place] [address] Neutrophils/100 WBC (Bld) 78.0 % Normal [facility] Comment on above: Performed By: #### 4 8664-7, PINR, 59735-0, 1798-8, 3040-3, 5643-2 #### [facility] ([id number]) [address], [address] [place] [address] Platelet mean volume (Bld) [Entitic vol] 7.7 fL Normal 7-12 [facility] Comment on above: Performed By: #### 4 8664-7, PINR, 03465-1, 1798-8, 3040-3, 5643-2 #### [facility] ([id number]) [address], [address] [place] [address] Platelets (Bld) [#/Vol] 135 10*3/uL Low 150-450 [facility] Comment on above: Performed By: #### 4 8664-7, PINR, 91292-4, 1798-8, 3040-3, 5643-2 #### [facility] ([id number]) [address], [address] [place] [address] RBC COUNT 2.45 X10E12/L Low 3.80-5.20 [facility] Comment on above: Performed By: #### 4 8664-7, PINR, 51459-6, 1798-8, 3040-3, 5643-2 #### [facility] ([id number]) [address], [address] [place] [address] WBC (Bld) [#/Vol] 8.8 10*3/uL Normal 4.0-11.0 [facility] Comment on above: Performed By: #### 4 8664-7, PINR, 98007-5, 1798-8, 3040-3, 5643-2 #### [facility] ([id number]) [address], [address] [place] [address] HGB AND HCTon 06-05-2024 Hematocrit (Bld) [Volume fraction] 23.3 % Low 35-47 [facility] Comment on above: Performed By: #### 4 8664-7, PINR, 88565-1, 1798-8, 3040-3, 5643-2 #### [facility] ([id number]) [address], [address] [place] [address] Hemoglobin (Bld) [Mass/Vol] 7.5 g/dL Low 11.7-15.5 [facility] Comment on above: Performed By: #### 4 8664-7, PINR, 20006-0, 1798-8, 3040-3, 5643-2 #### [facility] ([id number]) [address], [address] [place] [address] Hematocrit (Bld) [Volume fraction] 22.2 % Low 35-47 [facility] Comment on above: Performed By: #### 4 8664-7, PINR, 56773-5, 1798-8, 3040-3, 5643-2 #### [facility] ([id number]) [address], [address] [place] [address] Hemoglobin (Bld) [Mass/Vol] 7.3 g/dL Low 11.7-15.5 [facility] Comment on above: Performed By: #### 4 8664-7, PINR, 92278-2, 1798-8, 3040-3, 5643-2 #### [facility] ([id number]) [address], [address] [place] [address] Hematocrit (Bld) [Volume fraction] 21.8 % Low 35-47 [facility] Comment on above: Performed By: #### 4 8664-7, PINR, 28895-5, 1798-8, 3040-3, 5643-2 #### [facility] ([id number]) [address], [address] [place] [address] Hemoglobin (Bld) [Mass/Vol] 7.1 g/dL Low 11.7-15.5 [facility] Comment on above: Performed By: #### 4 8664-7, PINR, 65462-3, 1798-8, 3040-3, 5643-2 #### [facility] ([id number]) [address], [address] [place] [address] PROTIME AND INRon 06-05-2024 INR Coag (PPP) [Relative time] 1.4 {INR} High 0.8-1.1 [facility] Comment on above: Performed By: #### 4 8664-7, PINR, 26363-0, 1798-8, 3040-3, 5643-2 #### [facility] ([id number]) [address], [address] [place] [address] PT Coag (PPP) [Time] 16.6 s High 9.8-13.2 [facility] Comment on above: Performed By: #### 4 8664-7, PINR, 01513-0, 1798-8, 3040-3, 5643-2 #### [facility] ([id number]) [address], [address] [facility] [place] [address] BASIC METABOLIC PANLon 06-04 Anion gap [Moles/Vol] 8 mmol/L Normal 5-15 [facility] Comment on above: Performed By: #### 4 8664-7, PINR, 99675-9, 1798-8, 3040-3, 5643-2 #### [facility] ([id number]) [address], [address] [place] [address] Calcium [Mass/Vol] 8.1 mg/dL Low 8.5-10.5 [facility] Comment on above: Performed By: #### 4 8664-7, PINR, 88631-4, 1798-8, 3040-3, 5643-2 #### [facility] ([id number]) [address], [address] [place] [address] Chloride [Moles/Vol] 109 mmol/L Normal 98-109 [facility] Comment on above: Performed By: #### 4 8664-7, PINR, 13823-3, 1798-8, 3040-3, 5643-2 #### [facility] ([id number]) [address], [address] [place] [address] CO2 [Moles/Vol] 22 mmol/L Normal 22-32 [facility] Comment on above: Performed By: #### 4 8664-7, PINR, 82464-4, 1798-8, 3040-3, 5643-2 #### [facility] ([id number]) [address], [address] [place] [address] Creatinine [Mass/Vol] 2.04 mg/dL High 0.40-1.00 [facility] Comment on above: Result Comment: METH OD TRACEABLE TO IDMS STANDARD Performed By: #### 4 8664-7, PINR, 90652-6, 1798-8, 3040-3, 5643-2 #### [facility] ([id number]) [address], [facility] [address] [place] [address] GFR/1.73 sq M.predicted among non-blacks MDRD (S/P/Bld) [Vol rate/Area] 26 mL/min/{1.73_m2} Low >59 [facility] Comment on above: Result Comment: Reported eGFR is based on the CKD-EPI 2020 equation that does not use a race coefficient. Performed By: #### 4 8664-7, PINR, 21527-3, 1798-8, 3040-3, 5643-2 #### [facility] ([id number]) [address] [address] Glucose [Mass/Vol] 185 mg/dL High 65-99 [facility] Comment on above: Performed By: #### 4 8664-7, PINR, 90431-3, 1798-8, 3040-3, 5643-2 #### [facility] ([id number]) [address], [address] [address] Potassium [Moles/Vol] 4.2 mmol/L Normal 3.5-5.0 [facility] Comment on above: Performed By: #### 4 8664-7, PINR, 06938-9, 1798-8, 3040-3, 5643-2 #### [facility] ([id number]) [address] [address] Sodium [Moles/Vol] 139 mmol/L Normal 134-146 [facility] Comment on above: Performed By: #### 4 8664-7, PINR, 82665-3, 1798-8, 3040-3, 5643-2 #### [facility] ([id number]) [address] [address] Urea nitrogen [Mass/Vol] 41 mg/dL High 5-27 [facility] Comment on above: Performed By: #### 4 8664-7, PINR, 56360-7, 1798-8, 3040-3, 5643-2 #### [facility] ([id number]) [address], [address] [place] [address] CBC AND AUTO DIFFon 06-04-20 24 ABSOLUTE BASOPHIL 0.0 X10E9/L Normal 0.0-0.2 [facility] Comment on above: Performed By: #### 4 8664-7, PINR, 82765-9, 1798-8, 3040-3, 5643-2 #### [facility] ([id number]) [address], [address] [place] [address] ABSOLUTE NEUTROPHIL 9.2 X10E9/L High 1.5-6.6 [facility] Comment on above: Performed By: #### 4 8664-7, PINR, 66014-4, 1797-8, 3040-3, 5643-2 #### [facility] ([id number]) [address], [address] [place] [address] Basophils/100 WBC (Bld) 0.1 % Normal [facility] Comment on above: Performed By: #### 4 8664-7, PINR, 37015-8, 1797-8, 3040-3, 5643-2 #### [facility] ([id number]) [address], [address] [place] [address] Eosinophils (Bld) [#/Vol] 0.0 10*3/uL Normal 0.0-0.4 [facility] Comment on above: Performed By: #### 4 8664-7, PINR, 93864-6, 1798-8, 3040-3, 5643-2 #### [facility] ([id number]) [address], [address] [place] [address] Eosinophils/100 WBC (Bld) 0.0 % Normal [facility] Comment on above: Performed By: #### 4 8664-7, PINR, 96202-8, 179-8, 3040-3, 5643-2 #### [facility] ([id number]) [address], [address] [place] [address] Erythrocyte distribution width (RBC) [Ratio] 13.9 % Normal 11.5-15.0 [facility] Comment on above: Performed By: #### 4 8664-7, PINR, 66597-5, 1797-8, 3040-3, 5643-2 #### [facility] ([id number]) [address], [facility] [address] [place] [address] Hematocrit (Bld) [Volume fraction] 27.1 % Low 35-47 [facility] Comment on above: Performed By: #### 4 8664-7, PINR, 65727-9, 1797-8, 3040-3, 5643-2 #### [facility] ([id number]) [address], [address] [place] [address] Hemoglobin (Bld) [Mass/Vol] 9.0 g/dL Low 11.7-15.5 [facility] Comment on above: Performed By: #### 4 8664-7, PINR, 53796-5, 1797-8, 3040-3, 5643-2 #### [facility] ([id number]) [address], [address] [place] [address] Lymphocytes (Bld) [#/Vol] 0.2 10*3/uL Low 1.0-3.5 [facility] Comment on above: Performed By: #### 4 8664-7, PINR, 44806-0, 1797-8, 3040-3, 5643-2 #### [facility] ([id number]) [address], [address] [place] [address] Lymphocytes/100 WBC (Bld) 2.0 % Normal [facility] Comment on above: Performed By: #### 4 8664-7, PINR, 14908-8, 1798-8, 3040-3, 5643-2 #### [facility] ([id number]) [address], [address] [place] [address] MCH (RBC) [Entitic mass] 31.8 pg Normal 27-34 [facility] Comment on above: Performed By: #### 4 8664-7, PINR, 82126-3, 1798-8, 3040-3, 5643-2 #### [facility] ([id number]) [address], [facility] [address] [place] [address] MCHC (RBC) [Mass/Vol] 33.4 g/dL Normal 32-36 [facility] Comment on above: Performed By: #### 4 8664-7, PINR, 55282-0, 1798-8, 3040-3, 5643-2 #### [facility] ([id number]) [address], [address] [place] [address] MCV (RBC) [Entitic vol] 95 fL Normal 80-100 [facility] Comment on above: Performed By: #### 4 8664-7, PINR, 37739-9, 1798-8, 3040-3, 5643-2 #### [facility] ([id number]) [address] [address] [place] [address] Monocytes (Bld) [#/Vol] 0.4 10*3/uL Normal 0-0.9 [facility] Comment on above: Performed By: #### 4 8664-7, PINR, 23370-2, 1798-8, 3040-3, 5643-2 #### [facility] ([id number]) [address] [address] [place] [address] Monocytes/100 WBC (Bld) 4.4 % Normal [facility] Comment on above: Performed By: #### 4 8664-7, PINR, 39537-0, 1798-8, 3040-3, 5643-2 #### [facility] ([id number]) [address], [address] [place] [address] Neutrophils/100 WBC (Bld) 93.5 % Normal [facility] Comment on above: Performed By: #### 4 8664-7, PINR, 87143-7, 1798-8, 3040-3, 5643-2 #### [facility] ([id number]) [address], [address] [place] [address] Platelet mean volume (Bld) [Entitic vol] 7.6 fL Normal 7-12 [facility] Comment on above: Performed By: #### 4 8664-7, PINR, 16647-3, 1798-8, 3040-3, 5643-2 #### [facility] ([id number]) [address], [address] [place] [address] Platelets (Bld) [#/Vol] 145 10*3/uL Low 150-450 [facility] Comment on above: Performed By: #### 4 8664-7, PINR, 96416-5, 1798-8, 3040-3, 5643-2 #### [facility] ([id number]) [address], [address] [place] [address] RBC COUNT 2.85 X10E12/L Low 3.80-5.20 [facility] Comment on above: Performed By: #### 4 8664-7, PINR, 05106-0, 1798-8, 3040-3, 5643-2 #### [facility] ([id number]) [address], [address] [place] [address] WBC (Bld) [#/Vol] 9.9 10*3/uL Normal 4.0-11.0 [facility] Comment on above: Performed By: #### 4 8664-7, PINR, 36248-1, 1798-8, 3040-3, 5643-2 #### [facility] ([id number]) [address] [facility] [place] [address] PROTIME AND INRon 06-04-2024 INR Coag (PPP) [Relative time] 1.5 {INR} High 0.8-1.1 [facility] Comment on above: Performed By: #### 4 8664-7, PINR, 28504-9, 1798-8, 3040-3, 5643-2 #### [facility] ([id number]) [address] [facility] [place] [address] PT Coag (PPP) [Time] 17.2 s High 9.8-13.2 [facility] Comment on above: Performed By: #### 4 8664-7, PINR, 71455-0, 1798-8, 3040-3, 5643-2 #### [facility] ([id number]) [address] [facility] [place] [address] XR FEMUR LT 2+ VIEWSon 06-04 XR [...] Lopez MD on 06/04/2024 12:02 AM Normal [facility] AMYLASEon 06-03-2024 Amylase [Catalytic activity/Vol] 75 U/L Normal 28-100 [facility] Comment on above: Performed By: #### 4 8664-7, PINR, 56791-1, 1798-8, 3040-3, 5643-2 #### [facility] ([id number]) [address], [address] [place] [address] BASIC METABOLIC PANLon 06-03 Anion gap [Moles/Vol] 9 mmol/L Normal 5-15 [facility] Comment on above: Performed By: #### 4 8664-7, PINR, 35537-5, 1798-8, 3040-3, 5643-2 #### [facility] ([id number]) [address], [address] [place] [address] Calcium [Mass/Vol] 8.3 mg/dL Low 8.5-10.5 [facility] Comment on above: Performed By: #### 4 8664-7, PINR, 85046-1, 1798-8, 3040-3, 5643-2 #### [facility] ([id number]) [address], [address] [place] [address] Chloride [Moles/Vol] 114 mmol/L High 98-109 [facility] Comment on above: Performed By: #### 4 8664-7, PINR, 11186-6, 1798-8, 3040-3, 5643-2 #### [facility] ([id number]) [address], [address] [place] [address] CO2 [Moles/Vol] 21 mmol/L Low 22-32 [facility] Comment on above: Performed By: #### 4 8664-7, PINR, 62252-3, 1798-8, 3040-3, 5643-2 #### [facility] ([id number]) [address], [address] [place] [address] Creatinine [Mass/Vol] 1.68 mg/dL High 0.40-1.00 [facility] Comment on above: Result Comment: METH OD TRACEABLE TO IDMS STANDARD Performed By: #### 4 8664-7, PINR, 04952-0, 1798-8, 3040-3, 5643-2 #### [facility] ([id number]) [address], [address] [place] [address] GFR/1.73 sq M.predicted among non-blacks MDRD (S/P/Bld) [Vol rate/Area] 33 mL/min/{1.73_m2} Low >59 [facility] Comment on above: Result Comment: Reported eGFR is based on the CKD-EPI 2020 equation that does not use a race coefficient. Performed By: #### 4 8664-7, PINR, 83022-9, 1798-8, 3040-3, 5643-2 #### [facility] ([id number]) [address], [address] [place] [address] Glucose [Mass/Vol] 100 mg/dL High 65-99 [facility] Comment on above: Performed By: #### 4 8664-7, PINR, 42220-9, 1798-8, 3040-3, 5643-2 #### [facility] ([id number]) [address], [address] [place] [address] Potassium [Moles/Vol] 4.0 mmol/L Normal 3.5-5.0 [facility] Comment on above: Performed By: #### 4 8664-7, PINR, 38008-7, 1798-8, 3040-3, 5643-2 #### [facility] ([id number]) [address], [address] [place] [address] Sodium [Moles/Vol] 144 mmol/L Normal 134-146 [facility] Comment on above: Performed By: #### 4 8664-7, PINR, 66843-0, 1798-8, 3040-3, 5643-2 #### [facility] ([id number]) [address], [address] [place] [address] Urea nitrogen [Mass/Vol] 33 mg/dL High 5-27 [facility] Comment on above: Performed By: #### 4 8664-7, PINR, 56774-5, 1798-8, 3040-3, 5643-2 #### [facility] ([id number]) [address], [address] [place] [address] CBC AND AUTO DIFFon 06-03-20 24 ABSOLUTE BASOPHIL 0.1 X10E9/L Normal 0.0-0.2 [facility] Comment on above: Performed By: #### P INR, CBCA, BMP #### [facility] ([id number]) [address], [address] [address] ABSOLUTE NEUTROPHIL 7.4 X10E9/L High 1.5-6.6 [facility] Comment on above: Performed By: #### P INR, CBCA, BMP #### [facility] ([id number]) [address], [address] [place] [address] Basophils/100 WBC (Bld) 0.7 % Normal [facility] Comment on above: Performed By: #### P INR, CBCA, BMP #### [facility] ([id number]) [address], [address] [address] Eosinophils (Bld) [#/Vol] 0.0 10*3/uL Normal 0.0-0.4 [facility] Comment on above: Performed By: #### P INR, CBCA, BMP #### [facility] ([id number]) [address], [address] [place] [address] Eosinophils/100 WBC (Bld) 0.3 % Normal [facility] Comment on above: Performed By: #### P INR, CBCA, BMP #### [facility] ([id number]) [address], [address] [place] [address] Erythrocyte distribution width (RBC) [Ratio] 13.7 % Normal 11.5-15.0 [facility] Comment on above: Performed By: #### P INR, CBCA, BMP #### [facility] ([id number]) [address], [address] [place] [address] Hematocrit (Bld) [Volume fraction] 32.0 % Low 35-47 [facility] Comment on above: Performed By: #### P INR, CBCA, BMP #### [facility] ([id number]) [address], [address] [place] [address] Hemoglobin (Bld) [Mass/Vol] 10.8 g/dL Low 11.7-15.5 [facility] Comment on above: Performed By: #### P INR, CBCA, BMP #### [facility] ([id number]) [address], [facility] [address] [place] [address] Lymphocytes (Bld) [#/Vol] 0.9 10*3/uL Low 1.0-3.5 [facility] Comment on above: Performed By: #### P INR, CBCA, BMP #### [facility] ([id number]) [address], [facility] [address] [place] [address] Lymphocytes/100 WBC (Bld) 9.4 % Normal [facility] Comment on above: Performed By: #### P INR, CBCA, BMP #### [facility] ([id number]) [address], [address] [place] [address] MCH (RBC) [Entitic mass] 31.7 pg Normal 27-34 [facility] Comment on above: Performed By: #### P INR, CBCA, BMP #### [facility] ([id number]) [address], [address] [place] [address] MCHC (RBC) [Mass/Vol] 33.9 g/dL Normal 32-36 [facility] Comment on above: Performed By: #### P INR, CBCA, BMP #### [facility] ([id number]) [address], [address] [place] [address] MCV (RBC) [Entitic vol] 94 fL Normal 80-100 [facility] Comment on above: Performed By: #### P INR, CBCA, BMP #### [facility] ([id number]) [address], [facility] [address] [place] [address] Monocytes (Bld) [#/Vol] 1.0 10*3/uL High 0-0.9 [facility] Comment on above: Performed By: #### P INR, CBCA, BMP #### [facility] ([id number]) [address] [address] Monocytes/100 WBC (Bld) 10.4 % Normal [facility] Comment on above: Performed By: #### P INR, CBCA, BMP #### [facility] ([id number]) [address], [address] [address] Neutrophils/100 WBC (Bld) 79.2 % Normal [facility] Comment on above: Performed By: #### P INR, CBCA, BMP #### [facility] ([id number]) [address], [facility] [address] [place] [address] Platelet mean volume (Bld) [Entitic vol] 7.7 fL Normal 7-12 [facility] Comment on above: Performed By: #### P INR, CBCA, BMP #### [facility] ([id number]) [address], [address] [address] Platelets (Bld) [#/Vol] 192 10*3/uL Normal 150-450 [facility] Comment on above: Performed By: #### P INR, CBCA, BMP #### [facility] ([id number]) [address] [address] [place] [address] RBC COUNT 3.42 X10E12/L Low 3.80-5.20 [facility] Comment on above: Performed By: #### P INR, CBCA, BMP #### [facility] ([id number]) [address], [address] [place] [address] WBC (Bld) [#/Vol] 9.3 10*3/uL Normal 4.0-11.0 [facility] Comment on above: Performed By: #### P INR, CBCA, BMP #### [facility] ([id number]) [address], [address] [place] [address] CT TIBFIB LT WO CONTon 06-03 CT [...] Rodriguez MD on 06/03/2024 12:12 AM Normal [facility] DRUG SCREEN, URINEon 024 AMPHETAMINE/METHAMP Negative Normal NEG [facility] Comment on above: Result Comment: AMPH /METH screening cut off = 1000 ng/mL Performed By: #### D SOW #### [facility] ([id number]) [address], [address] [place] [address] BARBITURATES Negative Normal NEG [facility] Comment on above: Result Comment: Hannah iturates screening cut off value = 200 ng/mL Performed By: #### D SOW #### [facility] ([id number]) [address], [address] [place] [address] BENZODIAZEPINES Negative Normal NEG [facility] Comment on above: Result Comment: Wes odiazepines screening cut off value = 200 ng/mL Performed By: #### D SOW #### [facility] ([id number]) [address], [address] [place] [address] CANNABINOIDS Negative Normal NEG [facility] Comment on above: Result Comment: Tan abinoids/THC screening cut off value = 50 ng/mL Performed By: #### D SOW #### [facility] ([id number]) [address], [address] [place] [address] COCAINE METABOLITE Negative Normal NEG [facility] Comment on above: Result Comment: Coca ine screening cut off value = 300 ng/mL Performed By: #### D SOW #### [facility] ([id number]) [address], [address] [place] [address] ECSTASY Negative Normal NEG [facility] Comment on above: Result Comment: Ecst asy screening cut off value = 500 ng/mL This report is intended for use in clinical monitoring or management of patients. Performed By: #### D SOW #### [facility] ([id number]) [address], [address] [place] [address] METHADONE Negative Normal NEG [facility] Comment on above: Result Comment: Meth adone screening cut off value = 300 ng/mL. Performed By: #### D SOW #### [facility] ([id number]) [address], [address] [place] [address] OPIATES Positive Abnormal NEG [facility] Comment on above: Result Comment: Conf irmation available upon request. Opiates screening cut off value = 300 ng/mL NOTE: This test is used for the detection of codeine, hydrocodone (>1000 ng/mL), morphine and hydromorphone (>900 ng/mL) in urine. Performed By: #### D SOW #### [facility] ([id number]) [address], [address] [place] [address] OXYCODONE Negative Normal NEG [facility] Comment on above: Result Comment: Oxyc odone screening cut off value = 300 ng/mL NOTE: This test is used for the detection of oxycodone and oxymorphone in urine. Performed By: #### D SOW #### [facility] ([id number]) [address], [address] [place] [address] PHENCYCLIDINE Negative Normal NEG [facility] Comment on above: Result Comment: Phen cyclidine screening cut off value = 25 ng/mL Performed By: #### D SOW #### [facility] ([id number]) [address], [address] [place] [address] ETHANOLon 06-03-2024 Ethanol [Mass/Vol] mg/dL Normal 0.00-0.08 [facility] Comment on above: Result Comment: This report is intended for use in clinical monitoring or management of patients. Performed By: #### 4 8664-7, PINR, 85432-9, 1798-8, 3040-3, 5643-2 #### [facility] ([id number]) [address], [address] [place] [address] Fibrinogen Coagulation.deriv ed (PPP) [Mass/Vol]on 06-03-2024 FIBRINOGEN 370 mg/dL Normal 190-480 [facility] Comment on above: Performed By: #### 4 8664-7, PINR, 05851-7, 1798-8, 3040-3, 5643-2 #### [facility] ([id number]) [address], [address] [place] [address] LIPASEon 06-03-2024 Lipase [Catalytic activity/Vol] 16 U/L Normal 11-82 [facility] Comment on above: Performed By: #### 4 8664-7, PINR, 03371-2, 1798-8, 3040-3, 5643-2 #### [facility] ([id number]) [address], [address] [place] [address] PROTIME AND INRon 06-03-2024 INR Coag (PPP) [Relative time] 1.7 {INR} High 0.8-1.1 [facility] Comment on above: Performed By: #### 4 8664-7, PINR, 61820-7, 1798-8, 3040-3, 5643-2 #### [facility] ([id number]) [address], [address] [place] [address] PT Coag (PPP) [Time] 19.4 s High 9.8-13.2 [facility] Comment on above: Performed By: #### 4 8664-7, PINR, 94660-8, 1797-8, 3040-3, 5643-2 #### [facility] ([id number]) [address], [address] [place] [address] INR Coag (PPP) [Relative time] 2.3 {INR} High 0.8-1.1 [facility] Comment on above: Performed By: #### P INR, CBCA, BMP #### [facility] ([id number]) [address], [address] [place] [address] PT Coag (PPP) [Time] 25.9 s High 9.8-13.2 [facility] Comment on above: Performed By: #### P INR, CBCA, BMP #### [facility] ([id number]) [address], [address] [place] [address] INR Coag (PPP) [Relative time] 2.3 {INR} High 0.8-1.1 [facility] Comment on above: Performed By: #### 4 8664-7, PINR, 05293-8, 1797-8, 3040-3, 5643-2 #### [facility] ([id number]) [address], [address] [place] [address] PT Coag (PPP) [Time] 26.3 s High 9.8-13.2 [facility] Comment on above: Performed By: #### 4 8664-7, PINR, 67868-2, 8-8, 3040-3, 5643-2 #### [facility] ([id number]) [address] [place] [address] URINALYSISon 06-03-2024 Bilirubin Ql (U) Negative Normal NEG [facility] Comment on above: Performed By: #### U A #### [facility] ([id number]) [address] [place] [address] BLOOD/HGB Trace Abnormal NEG [facility] Comment on above: Performed By: #### U A #### [facility] ([id number]) [address], [address] [place] [address] CA OXALATE CRYSTALS PRESENT Abnormal NONE [facility] Comment on above: Performed By: #### U A #### [facility] ([id number]) [address], [address] [place] [address] Color (U) BROWN Abnormal YELLOW [facility] Comment on above: Performed By: #### U A #### [facility] ([id number]) [address] [place] [address] Glucose Ql (U) Negative Normal NEG [facility] Comment on above: Performed By: #### U A #### [facility] ([id number]) [address] [place] [address] Ketones Ql (U) Negative Normal NEG [facility] Comment on above: Performed By: #### U A #### [facility] ([id number]) [address] [place] [address] Leukocyte esterase Test strip Ql (U) Large Abnormal NEG [facility] Comment on above: Performed By: #### U A #### [facility] ([id number]) [address], [address] [place] [address] Nitrite Ql (U) Positive Abnormal NEG [facility] Comment on above: Performed By: #### U A #### [facility] ([id number]) [address], [address] [place] [address] pH (U) 5.5 [pH] Normal 5.0-8.5 [facility] Comment on above: Performed By: #### U A #### [facility] ([id number]) [address], [address] [place] [address] Protein Ql (U) 50 mg/dL Abnormal NEG [facility] Comment on above: Performed By: #### U A #### [facility] ([id number]) [address] [address] [place] [address] R.B.CELLS 10 /hpf High 0-5 [facility] Comment on above: Performed By: #### U A #### [facility] ([id number]) [address] [address] [place] [address] Specific gravity (U) [Rel density] 1.014 Normal 1.003-1.035 [facility] Comment on above: Performed By: #### U A #### [facility] ([id number]) [address] [address] [place] [address] TURBIDITY CLOUDY Abnormal CLEAR [facility] Comment on above: Performed By: #### U A #### [facility] ([id number]) [address] [address] [place] [address] Urobilinogen (U) [Mass/Vol] mg/dL Normal <1.1 [facility] Comment on above: Performed By: #### U A #### [facility] ([id number]) [address] [address] [place] [address] W.B.CELLS >720 High 0-5 [facility] Comment on above: Performed By: #### U A #### [facility] ([id number]) [address] [address] [place] [address] WBC CLUMPS MANY Abnormal NONE [facility] Comment on above: Performed By: #### U A #### [facility] ([id number]) [address] [facility], [address] [place] [address] Vitamin D+Metabolites [Mass/ Vol]on 06-03-2024 VITAMIN D 25 HYD TOT 54.4 ng/mL Normal 30-100 [facility] Comment on above: Result Comment: Vitamin D status 25 [place] Vitamin D Deficiency <20 ng/mL Insufficiency 20-29 ng/mL Sufficiency 30-100 ng/mL Toxicity >100 ng/mL NOTE: A pediatric reference range has not been established by the motor teacher of this kit. The [place] [employer] recommends a Vitamin D level of = or >20ng/mL in infants and children. Performed By: #### 4 8664-7, PINR, 60609-3, 1798-8, 3040-3, 5643-2 #### [facility] ([id number]) [address], [address] [place] [address] XR FEMUR LT 2+ VIEWSon 06-03 XR FEMUR LT 2+ VIEWS XR FEMUR LT 2+ VIEWS XR FEMUR LT 2+ VIEWS HISTORY: Surgery. COMPARISON: CT 06/02/2024. IMPRESSION: Reference air kerma 7.8 mGy. Fluoroscopic guidance provided. Please see details within procedural/operative note. Finalized by Guevara Archer MD on 06/03/2024 7:03 PM Normal [facility] aPTT Coag (PPP) [Time]on aPTT Coag (Bld) [Time] 38 s High 26-37 [facility] Comment on above: Performed By: #### 4 8664-7, PINR, 65828-6, 1798-8, 3040-3, 5643-2 #### [facility] ([id number]) [address] [facility] [place] [address] CBC AND AUTO DIFFon 06-02-20 24 ABSOLUTE BASOPHIL 0.0 X10E9/L Normal 0.0-0.2 [facility] Comment on above: Performed By: #### M ALBU #### [facility] ([id number]) [address] [facility], [address] [place] [address] ABSOLUTE NEUTROPHIL 8.9 X10E9/L High 1.5-6.6 [facility] Comment on above: Performed By: #### M ALBU #### [facility] ([id number]) [address] [facility] [address] [place] [address] Basophils/100 WBC (Bld) 0.3 % Normal [facility] Comment on above: Performed By: #### M ALBU #### [facility] ([id number]) [address] [facility] [address] [place] [address] Eosinophils (Bld) [#/Vol] 0.1 10*3/uL Normal 0.0-0.4 [facility] Comment on above: Performed By: #### M ALBU #### [facility] ([id number]) [address] [facility], [facility] [address] [place] [address] Eosinophils/100 WBC (Bld) 0.9 % Normal [facility] Comment on above: Performed By: #### M ALBU #### [facility] ([id number]) [address] [facility] [address] [place] [address] Erythrocyte distribution width (RBC) [Ratio] 14.1 % Normal 11.5-15.0 [facility] Comment on above: Performed By: #### M ALBU #### [facility] ([id number]) [address] [facility] [address] [place] [address] Hematocrit (Bld) [Volume fraction] 37.8 % Normal 35-47 [facility] Comment on above: Performed By: #### M ALBU #### [facility] ([id number]) [address], [address] [place] [address] Hemoglobin (Bld) [Mass/Vol] 12.6 g/dL Normal 11.7-15.5 [facility] Comment on above: Performed By: #### M ALBU #### [facility] ([id number]) [address], [address] [place] [address] Lymphocytes (Bld) [#/Vol] 0.8 10*3/uL Low 1.0-3.5 [facility] Comment on above: Performed By: #### M ALBU #### [facility] ([id number]) [address] [place] [address] Lymphocytes/100 WBC (Bld) 7.8 % Normal [facility] Comment on above: Performed By: #### M ALBU #### [facility] ([id number]) [address], [address] [place] [address] MCH (RBC) [Entitic mass] 31.3 pg Normal 27-34 [facility] Comment on above: Performed By: #### M ALBU #### [facility] ([id number]) [address], [address] [place] [address] MCHC (RBC) [Mass/Vol] 33.3 g/dL Normal 32-36 [facility] Comment on above: Performed By: #### M ALBU #### [facility] ([id number]) [address], [address] [place] [address] MCV (RBC) [Entitic vol] 94 fL Normal 80-100 [facility] Comment on above: Performed By: #### M ALBU #### [facility] ([id number]) [address], [address] [place] [address] Monocytes (Bld) [#/Vol] 0.4 10*3/uL Normal 0-0.9 [facility] Comment on above: Performed By: #### M ALBU #### [facility] ([id number]) [address], [address] [place] [address] Monocytes/100 WBC (Bld) 4.1 % Normal [facility] Comment on above: Performed By: #### M ALBU #### [facility] ([id number]) [address], [address] [place] [address] Neutrophils/100 WBC (Bld) 86.9 % Normal [facility] Comment on above: Performed By: #### M ALBU #### [facility] ([id number]) [address], [address] [place] [address] Platelet mean volume (Bld) [Entitic vol] 7.3 fL Normal 7-12 [facility] Comment on above: Performed By: #### M ALBU #### [facility] ([id number]) [address], [address] [place] [address] Platelets (Bld) [#/Vol] 250 10*3/uL Normal 150-450 [facility] Comment on above: Performed By: #### M ALBU #### [facility] ([id number]) [address], [address] [place] [address] RBC COUNT 4.03 X10E12/L Normal 3.80-5.20 [facility] Comment on above: Performed By: #### M ALBU #### [facility] ([id number]) [address], [address] [place] [address] WBC (Bld) [#/Vol] 10.3 10*3/uL Normal 4.0-11.0 [facility] Comment on above: Performed By: #### M ALBU #### [facility] ([id number]) [address], [address] [place] [address] COMPREHENSIVE METABOLIC PANE Byron 09-05-2024 Albumin [Mass/Vol] 4.2 g/dL Normal 3.2-5.3 [facility] Comment on above: Performed By: #### M ALBU #### [facility] ([id number]) [address], [address] [place] [address] ALP [Catalytic activity/Vol] 73 U/L Normal 39-130 [facility] Comment on above: Performed By: #### M ALBU #### [facility] ([id number]) [address], [address] [place] [address] ALT [Catalytic activity/Vol] 22 U/L Normal 0-31 [facility] Comment on above: Performed By: #### M ALBU #### [facility] ([id number]) [address], [address] [place] [address] Anion gap [Moles/Vol] 12 mmol/L Normal 5-15 [facility] Comment on above: Performed By: #### M ALBU #### [facility] ([id number]) [address], [address] [place] [address] AST [Catalytic activity/Vol] 20 U/L Normal 0-41 [facility] Comment on above: Performed By: #### M ALBU #### [facility] ([id number]) [address], [address] [place] [address] Bilirubin [Mass/Vol] 0.7 mg/dL Normal 0.3-1.2 [facility] Comment on above: Performed By: #### M ALBU #### [facility] ([id number]) [address], [address] [place] [address] Calcium [Mass/Vol] 8.7 mg/dL Normal 8.5-10.5 [facility] Comment on above: Performed By: #### M ALBU #### [facility] ([id number]) [address], [address] [place] [address] Chloride [Moles/Vol] 108 mmol/L Normal 98-109 [facility] Comment on above: Performed By: #### M ALBU #### [facility] ([id number]) [address], [address] [place] [address] CO2 [Moles/Vol] 17 mmol/L Low 22-32 [facility] Comment on above: Performed By: #### M ALBU #### [facility] ([id number]) [address] [place] [address] Creatinine [Mass/Vol] 1.86 mg/dL High 0.40-1.00 [facility] Comment on above: Result Comment: METH OD TRACEABLE TO IDMS STANDARD Performed By: #### M ALBU #### [facility] ([id number]) [address] [place] [address] GFR/1.73 sq M.predicted among non-blacks MDRD (S/P/Bld) [Vol rate/Area] 29 mL/min/{1.73_m2} Low >59 [facility] Comment on above: Result Comment: Reported eGFR is based on the CKD-EPI 2020 equation that does not use a race coefficient. Performed By: #### M ALBU #### [facility] ([id number]) [address], [address] [place] [address] Glucose [Mass/Vol] 133 mg/dL High 65-99 [facility] Comment on above: Performed By: #### M ALBU #### [facility] ([id number]) [address] [address] [place] [address] Potassium [Moles/Vol] 3.7 mmol/L Normal 3.5-5.0 [facility] Comment on above: Performed By: #### M ALBU #### [facility] ([id number]) [address], [address] [place] [address] Protein [Mass/Vol] 7.0 g/dL Normal 6.0-8.0 [facility] Comment on above: Performed By: #### M ALBU #### [facility] ([id number]) [address], [address] [place] [address] Sodium [Moles/Vol] 137 mmol/L Normal 134-146 [facility] Comment on above: Performed By: #### M ALBU #### [facility] ([id number]) [address], [address] [place] [address] Urea nitrogen [Mass/Vol] 43 mg/dL High 5-27 [facility] Comment on above: Performed By: #### M ALBU #### [facility] ([id number]) [address], [address] [place] [address] CT FEMUR LT WO CONTon 2023 CT [...] Loyola MD on 06/02/2024 10:47 PM Normal [facility] PROTIME AND INRon 06-02-2024 INR Coag (PPP) [Relative time] 2.0 {INR} High 0.8-1.1 [facility] Comment on above: Performed By: #### M ALBU #### [facility] ([id number]) [address], [address] [place] [address] PT Coag (PPP) [Time] 23.1 s High 9.8-13.2 [facility] Comment on above: Result Comment: NEW REFERENCE RANGE Performed By: #### M ALBU #### [facility] ([id number]) [address] [place] [address] XR CHEST 1 VWon 06-02-2024 XR CHEST [...] Dickens MD on 06/02/2024 10:50 PM Normal [facility] XR HIP LT 2-3 VIEWS W [...] Loyola MD on 06/02/2024 5:28 PM Normal [facility] XR KNEE LT 3 VWSon 4 [...] Dickens MD on 06/02/2024 5:33 PM Normal [facility] aPTT Coag (PPP) [Time]on aPTT Coag (Bld) [Time] 39 s High 26-37 [facility] Comment on above: Result Comment: NEW REFERENCE RANGE Performed By: #### M ALBU #### [facility] ([id number]) [address], [address] [place] [address] 36on 05-26-2024 36 Faxed clearance to Miriam Linares office at [phone]. Nurse notified [facility] manages coumadin Normal [facility] Orders Onlyon 05-25-2024 Orders Only [id number] Keila Garcia 1955 F Date Provider Department Center 05/25/2024 GREG PATEL [facility] No family history on file Normal [facility] No Panel Informationon 05-04 Results can be seen in attached scanned documents. If you are a patient reviewing this test result, call the doctor who ordered the test with any questions. [facility] [place] [facility] MR SHOULDER LEFT WO IV [...] Comment: MRI L T shoulder w/o at [facility]. Orbits if needed. MR Brain WO and [...] than one vessel associated with each lesion. 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 New Enhancing Lesions: None T2 [place] of Disease: Moderate. Parenchymal Volume Loss: None. [...] 2mm). 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 New Enhancing Lesions: None T2 [place] of Disease: Moderate. Parenchymal Volume Loss: None. [...] than one vessel associated with each lesion. Sap Security Architect: JENNA Transcribe Date/Time: May 02 2024 2:36P Dictated by : MALIHA HEIN MD This examination was interpreted and the report reviewed and electronically signed by: СЕРГЕЙ KIM MD on May 02 2024 3:43PM EST [facility] Radiology Study observation (narrative) [facility] MR Brain WO and W contrast I VOrdered By: [facility] Provider on 05-02-2024 [facility] MRI 7T BRAIN WO/W IVCONon MRI 7T BRAIN WO/W IVCON * * *Final Report* * * DATE OF EXAM: May 02 2024 2:12PM [facility] 3084 - MRI 7T BRAIN WO/W IVCON / 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 New Enhancing Lesions: None T2 [place] of Disease: Moderate. Parenchymal Volume Loss: None. [...] than one vessel associated with each lesion. Sap Security Architect: PSCB Transcribe Date/Time: May 02 2024 2:36P Dictated by : MALIHA HEIN MD This examination was interpreted and the report reviewed and electronically signed by: СЕРГЕЙ KIM MD on May 02 2024 3:43PM EST [id number] Normal [facility] XR SHOULDER 2+ VIEWS LEFTon 04-20-2024 XR [...] Sykes MD on 04/17/2024 4:40 PM Normal [facility] XR KNEE LT 3 VWSon XR KNEE LT 3 VWS XR KNEE LT 3 VWS XR KNEE LT 3 VWS HISTORY: Fall with knee pain. COMPARISON: None. IMPRESSION: 1. No acute fracture or dislocation. No large joint effusion. 2. Knee prosthesis. Finalized by Guevara Archer MD on 04/17/2024 4:30 PM Normal [facility] XR SHOULDER RT MIN 2 VWSon [...] Sykes MD on 04/17/2024 4:33 PM Normal [facility] CNOVon 03-23-2024 CNOV Office Visit (NEMSMN ) KEILA GARCIA ([id number]) 1955 F [place] Date Time Provider Department 03/23/24 2:45 PM BIB ALVA During your visit today, we recorded the following information about you: Pulse Blood pressure Weight Height 80/minute 105/71 87.5 kg 1.676 m Bib Alva MD 03/23/2024 3:[address] [facility] NEW PATIENT EVALUATION/CONSULTATIO N Referral source: Loreta Mcmillan, [facility] [address] [address] Also followed by: Patient Care Team: Javan [...] expected to be with me at the [facility]. PRESENTING HISTORY: 06/02/[address] [place] [address] Capellan: Approximately 20 years [...] of the brain, particularly changes in the 7266-4561 interval, reportedly raised suspicion for MS. One [...] get a gastric sleeve surgery done in [place]. No LP was performed because she is [...] gabapentin, magnesium, metoprolol succinate er, omega-3/dha/epa/fish oil, al969-ncrg-yhfsx acid, vit c,g-vt-xpnlf-lutein-ze axan, rosuvastatin, solifenacin, topiramate, warfarin, and warfarin. [...] person, place, (more content not included)... Normal [facility] METABOLIC PANE Byron 02-15-2024 Albumin [Mass/Vol] 4.2 g/dL Normal 3.2-5.3 [facility] Comment on above: Performed By: #### C JACINDA, CMP #### [facility] ([id number]) [address] [place] [address] ALP [Catalytic activity/Vol] 73 U/L Normal 39-130 [facility] Comment on above: Performed By: #### C JACINDA, CMP #### [facility] ([id number]) [address], [address] [place] [address] ALT [Catalytic activity/Vol] 22 U/L Normal 0-31 [facility] Comment on above: Performed By: #### C JACINDA, CMP #### [facility] ([id number]) [address], [address] [place] [address] Anion gap [Moles/Vol] 11 mmol/L Normal 5-15 [facility] Comment on above: Performed By: #### C BC, CMP #### [facility] ([id number]) [address] [place] [address] AST [Catalytic activity/Vol] 22 U/L Normal 0-41 [facility] Comment on above: Performed By: #### C BC, CMP #### [facility] ([id number]) [address] [place] [address] Bilirubin [Mass/Vol] 0.4 mg/dL Normal 0.3-1.2 [facility] Comment on above: Performed By: #### C BC, CMP #### [facility] ([id number]) [address], [address] [place] [address] Calcium [Mass/Vol] 8.9 mg/dL Normal 8.5-10.5 [facility] Comment on above: Performed By: #### C JACINDA, CMP #### [facility] ([id number]) [address], [address] [place] [address] Chloride [Moles/Vol] 108 mmol/L Normal 98-109 [facility] Comment on above: Performed By: #### C JACINDA, CMP #### [facility] ([id number]) [address] [place] [address] CO2 [Moles/Vol] 21 mmol/L Low 22-32 [facility] Comment on above: Performed By: #### C JACINDA, CMP #### [facility] ([id number]) [address] [place] [address] Creatinine [Mass/Vol] 1.47 mg/dL High 0.40-1.00 [facility] Comment on above: Result Comment: METH OD TRACEABLE TO IDMS STANDARD Performed By: #### C JACINDA, CMP #### [facility] ([id number]) [address], [address] [place] [address] GFR/1.73 sq M.predicted among non-blacks MDRD (S/P/Bld) [Vol rate/Area] 38 mL/min/{1.73_m2} Low >59 [facility] Comment on above: Result Comment: Reported eGFR is based on the CKD-EPI 1 equation that does not use a race coefficient. Performed By: #### C BC, CMP #### [facility] ([id number]) [address], [address] [place] [address] Glucose [Mass/Vol] 102 mg/dL High 65-99 [facility] Comment on above: Performed By: #### C BC, CMP #### [facility] ([id number]) [address] [place] [address] Potassium [Moles/Vol] 3.5 mmol/L Normal 3.5-5.0 [facility] Comment on above: Performed By: #### C BC, CMP #### [facility] ([id number]) [address] [place] [address] Protein [Mass/Vol] 7.0 g/dL Normal 6.0-8.0 [facility] Comment on above: Performed By: #### C BC, CMP #### [facility] ([id number]) [address] [place] [address] Sodium [Moles/Vol] 140 mmol/L Normal 134-146 [facility] Comment on above: Performed By: #### C BC, CMP #### [facility] ([id number]) [address] [place] [address] Urea nitrogen [Mass/Vol] 41 mg/dL High 5-27 [facility] Comment on above: Performed By: #### C BC, CMP #### [facility] ([id number]) [address] [place] [address] BI MAMMOGRAM DIAGNOSTIC SALOMÓN SYNTHESIS BILATERALon 02-09-2024 [...] IS VERY IMPORTANT TO YOUR HEALTH. THE [employer] GUIDELINES RECOMMEND THAT WOMEN 40 [...] time] 1.3 {INR} Abnormal 0.8 - 1.2 [facility] Interpretation and review of laboratory results [facility] CALCIUMon 11-30-2023 Calcium [Mass/Vol] 9.1 mg/dL Normal 8.5-10.5 [facility] Comment on above: Performed By: #### 1 7861-6, CBCA, 2731-8, FEPR, 38264-5, LIVR, 2132-9, 2284-8, 95896-3, 2276-4 #### [facility] ([id number]) [address], [address] [place] [address] #### 2998-3, VITASP #### [facility] ([id number]) [address] [place] [address], [place] [address] CBC AND AUTO DIFFon 11-30-19 24 ABSOLUTE BASOPHIL 0.1 X10E9/L Normal 0.0-0.2 [facility] Comment on above: Performed By: #### 1 7861-6, CBCA, 2731-8, FEPR, 30636-4, LIVR, 2132-9, 2284-8, 86646-1, 2276-4 #### [facility] ([id number]) [address] [place] [address] #### 2998-3, VITASP #### [facility] ([id number]) [address] [place] [address] ABSOLUTE NEUTROPHIL 5.7 X10E9/L Normal 1.5-6.6 [facility] Comment on above: Performed By: #### 1 7861-6, CBCA, 2731-8, FEPR, 79128-6, LIVR, 2132-9, 2284-8, 21323-9, 2276-4 #### [facility] ([id number]) [address] [place] [address] #### 2998-3, VITASP #### [facility] ([id number]) [address] [place] [address] Basophils/100 WBC (Bld) 0.8 % Normal [facility] Comment on above: Performed By: #### 1 7861-6, CBCA, 2731-8, FEPR, 74772-2, LIVR, 2132-9, 2284-8, 12032-8, 2276-4 #### [facility] ([id number]) [address] [place] [address] #### 2998-3, VITASP #### [facility] ([id number]) [address] [place] [address] Eosinophils (Bld) [#/Vol] 0.1 10*3/uL Normal 0.0-0.4 [facility] Comment on above: Performed By: #### 1 7861-6, CBCA, 2731-8, FEPR, 54834-7, LIVR, 2131-9, 2284-8, 95051-3, 2276-4 #### [facility] ([id number]) [address] [place] [address] #### 2998-3, VITASP #### [facility] ([id number]) [address] [place] [address] Eosinophils/100 WBC (Bld) 1.8 % Normal [facility] Comment on above: Performed By: #### 1 7861-6, CBCA, 2731-8, FEPR, 44486-7, LIVR, 2131-9, 4-8, 30545-2, 2276-4 #### [facility] ([id number]) [address] [place] [address] #### 2998-3, VITASP #### [facility] ([id number]) [address] [place] [address] Erythrocyte distribution width (RBC) [Ratio] 13.9 % Normal 11.5-15.0 [facility] Comment on above: Performed By: #### 1 7861-6, CBCA, 2731-8, FEPR, 93448-8, LIVR, 2131-9, 4-8, 61010-0, 2276-4 #### [facility] ([id number]) [address] [place] [address] #### 2998-3, VITASP #### [facility] ([id number]) [address] [place] [address] Hematocrit (Bld) [Volume fraction] 38.2 % Normal 35-47 [facility] Comment on above: Performed By: #### 1 7861-6, CBCA, 2731-8, FEPR, 65528-4, LIVR, 2132-9, 2284-8, 23296-6, 2276-4 #### [facility] ([id number]) [address] [place] [address] #### 2998-3, VITASP #### [facility] ([id number]) [address] [place] [address] Hemoglobin (Bld) [Mass/Vol] 12.8 g/dL Normal 11.7-15.5 [facility] Comment on above: Performed By: #### 1 7861-6, CBCA, 2731-8, FEPR, 41093-3, LIVR, 2131-9, 4-8, 37547-0, 2276-4 #### [facility] ([id number]) [address] [place] [address] #### 2998-3, VITASP #### [facility] ([id number]) [address] [place] [address] Lymphocytes (Bld) [#/Vol] 1.2 10*3/uL Normal 1.0-3.5 [facility] Comment on above: Performed By: #### 1 7861-6, CBCA, 2731-8, FEPR, 52326-0, LIVR, 2131-9, 4-8, 13140-7, 2276-4 #### [facility] ([id number]) [address] [place] [address] #### 2998-3, VITASP #### [facility] ([id number]) [address] [place] [address] Lymphocytes/100 WBC (Bld) 15.8 % Normal [facility] Comment on above: Performed By: #### 1 7861-6, CBCA, 2731-8, FEPR, 07872-1, LIVR, 2132-9, 2284-8, 76369-8, 2276-4 #### [facility] ([id number]) [address] [place] [address] #### 2998-3, VITASP #### [facility] ([id number]) [address] [place] [address] MCH (RBC) [Entitic mass] 31.7 pg Normal 27-34 [facility] Comment on above: Performed By: #### 1 7861-6, CBCA, 2731-8, FEPR, 39110-5, LIVR, 2131-9, 2283-8, 91607-2, 2276-4 #### [facility] ([id number]) [address] [place] [address] #### 2998-3, VITASP #### [facility] ([id number]) [address] [place] [address] MCHC (RBC) [Mass/Vol] 33.4 g/dL Normal 32-36 [facility] Comment on above: Performed By: #### 1 7861-6, CBCA, 2731-8, FEPR, 80349-1, LIVR, 2131-9, 4-8, 83292-8, 2276-4 #### [facility] ([id number]) [address] [place] [address] #### 2998-3, VITASP #### [facility] ([id number]) [address] [place] [address] MCV (RBC) [Entitic vol] 95 fL Normal 80-100 [facility] Comment on above: Performed By: #### 1 7861-6, CBCA, 2731-8, FEPR, 61859-9, LIVR, 213-9, 2284-8, 41123-4, 2276-4 #### [facility] ([id number]) [address] [place] [address] #### 2998-3, VITASP #### [facility] ([id number]) [address] [place] [address] Monocytes (Bld) [#/Vol] 0.3 10*3/uL Normal 0-0.9 [facility] Comment on above: Performed By: #### 1 7861-6, CBCA, 2731-8, FEPR, 65538-3, LIVR, 2132-9, 2284-8, 29926-2, 6-4 #### [facility] ([id number]) [address] [place] [address] #### 2998-3, VITASP #### [facility] ([id number]) [address] [place] [address] Monocytes/100 WBC (Bld) 3.5 % Normal [facility] Comment on above: Performed By: #### 1 7861-6, CBCA, 2731-8, FEPR, 61898-8, LIVR, 2132-9, 2284-8, 54123-7, 2276-4 #### [facility] ([id number]) [address] [place] [address] #### 2998-3, VITASP #### [facility] ([id number]) [address] [place] [address] Neutrophils/100 WBC (Bld) 78.1 % Normal [facility] Comment on above: Performed By: #### 1 7861-6, CBCA, 2731-8, FEPR, 83486-4, LIVR, 2132-9, 2284-8, 06741-4, 6-4 #### [facility] ([id number]) [address] [place] [address] #### 2998-3, VITASP #### [facility] ([id number]) [address] [place] [address]294 Platelet mean volume (Bld) [Entitic vol] 7.6 fL Normal 7-12 [facility] Comment on above: Performed By: #### 1 7861-6, CBCA, 2731-8, FEPR, 16203-6, LIVR, 2132-9, 2284-8, 50587-7, 2276-4 #### [facility] ([id number]) [address], [address] [place] [address] #### 2998-3, VITASP #### [facility] ([id number]) [address] [place] [address] 12499 Platelets (Bld) [#/Vol] 251 10*3/uL Normal 150-450 [facility] Comment on above: Performed By: #### 1 7861-6, CBCA, 2731-8, FEPR, 92108-7, LIVR, 2-9, 2284-8, 22718-6, 2276-4 #### [facility] ([id number]) [address], [address] [place] [address] #### 2998-3, VITASP #### [facility] ([id number]) [address] [place] [address] 61027 RBC COUNT 4.03 X10E12/L Normal 3.80-5.20 [facility] Comment on above: Performed By: #### 1 7861-6, CBCA, 2731-8, FEPR, 67997-3, LIVR, 2132-9, 2284-8, 20900-4, 2276-4 #### [facility] ([id number]) [address], [address] [place] [address] #### 2998-3, VITASP #### [facility] ([id number]) [address] [facility] [facility], [place] [address] WBC (Bld) [#/Vol] 7.3 10*3/uL Normal 4.0-11.0 [facility] Comment on above: Performed By: #### 1 7861-6, CBCA, 2731-8, FEPR, 64416-0, LIVR, 2131-9, 2284-8, 24622-3, 2276-4 #### [facility] ([id number]) [address] [place] [address], [address] [place] [address] #### 2998-3, VITASP #### [facility] ([id number]) [address] [place] [address] Copper [Mass/Vol]on 11-30-19 24 COPPER 81 ug/dL Normal 80-155 [facility] Comment on above: Result Comment: NOTE This test was developed and its performance characteristics determined by [facility]'s [facility]ology [facility] [place] ([facility] It has not been cleared or approved by the FDA. -[facility] is regulated under CLIA as qualified to perform high-complexity testing. This test is used for clinical purposes. It should not be regarded as investigational or for research. Test Performed By: [facility] [address] [place] [address] Window Unit Air Conditioning Mechanic: Maxime Weston III, M.D. CLIA #[id number] Performed By: #### C BC, CMP #### [facility] ([id number]) [address] [place] [address], [address] [place] [address] FERRITINon 11-30-2023 Ferritin [Mass/Vol] 56 ng/mL Normal 11-307 [facility] Comment on above: Performed By: #### 1 7861-6, CBCA, 2731-8, FEPR, 00615-6, LIVR, 2132-9, 2284-8, 76647-1, 2276-4 #### [facility] ([id number]) [address], [address] [place] [address] #### 2998-3, VITASP #### [facility] ([id number]) [address] [place] [address] Folate [Mass/Vol]on 11-30-19 24 FOLIC ACID 12.1 ng/mL Normal >5.8 [facility] Comment on above: Result Comment: NEW REFERENCE RANGE Performed By: #### 1 7861-6, CBCA, 2731-8, FEPR, 02258-8, LIVR, 2132-9, 2284-8, 95028-6, 2276-4 #### [facility] ([id number]) [address], [address] [place] [address] #### 2998-3, VITASP #### [facility] ([id number]) [address] [place] [address] IRON PROFILEon 11-30-2023 Iron [Mass/Vol] 100 ug/dL Normal 50-170 [facility] Comment on above: Performed By: #### 1 7861-6, CBCA, 2731-8, FEPR, 27363-9, LIVR, 2132-9, 2284-8, 36153-2, 2276-4 #### [facility] ([id number]) [address], [address] [place] [address] #### 2998-3, VITASP #### [facility] ([id number]) [address] [place] [address] IRON BINDING 340 ug/dL Normal 250-425 [facility] Comment on above: Performed By: #### 1 7861-6, CBCA, 2731-8, FEPR, 71606-1, LIVR, 2132-9, 2284-8, 81521-3, 2276-4 #### [facility] ([id number]) [address], [address] [place] [address] #### 2998-3, VITASP #### [facility] ([id number]) [address] [place] [address] IRON SATURATION 29 % SATURATION Normal 15-50 [facility] Comment on above: Performed By: #### 1 7861-6, CBCA, 2731-8, FEPR, 69322-1, LIVR, 2132-9, 2284-8, 95465-8, 2276-4 #### [facility] ([id number]) [address], [address] [place] [address] #### 2998-3, VITASP #### [facility] ([id number]) [address] [place] [address] LIVER PANELon 11-30-2023 Albumin [Mass/Vol] 4.0 g/dL Normal 3.2-5.3 [facility] Comment on above: Performed By: #### C BC, CMP #### [facility] ([id number]) [address], [address] [place] [address] ALP [Catalytic activity/Vol] 73 U/L Normal 39-130 [facility] Comment on above: Performed By: #### Sara BC, CMP #### [facility] ([id number]) [address], [address] [place] [address] ALT [Catalytic activity/Vol] 15 U/L Normal 0-31 [facility] Comment on above: Performed By: #### C BC, CMP #### [facility] ([id number]) [address], [address] [place] [address] AST [Catalytic activity/Vol] 15 U/L Normal 0-41 [facility] Comment on above: Performed By: #### C BC, CMP #### [facility] ([id number]) [address], [address] [place] [address] Bilirubin [Mass/Vol] 0.6 mg/dL Normal 0.3-1.2 [facility] Comment on above: Performed By: #### C BC, CMP #### [facility] ([id number]) [address], [address] [place] [address] Bilirubin.direct [Mass/Vol] 0.2 mg/dL Normal 0.0-0.4 [facility] Comment on above: Performed By: #### C BC, CMP #### [facility] ([id number]) [address], [address] [place] [address] Protein [Mass/Vol] 6.7 g/dL Normal 6.0-8.0 [facility] Comment on above: Performed By: #### Sara MONACO, CMP #### [facility] ([id number]) [address], [address] [place] [address] Lipid 1996 panelon 4 Cholesterol [Mass/Vol] 142 mg/dL Low 150-200 [facility] Comment on above: Performed By: #### 1 7861-6, CBCA, 2731-8, FEPR, 68589-5, LIVR, 2132-9, 2284-8, 48171-2, 2276-4 #### [facility] ([id number]) [address], [address] [place] [address] #### 2998-3, VITASP #### [facility] ([id number]) [address] [place] [address] Cholesterol in HDL [Mass/Vol] 75 mg/dL Normal >39 [facility] Comment on above: Result Comment: HDL <40 mg/dL - High Risk HDL > or = 40mg/dL- Desirable HDL >60 mg/dL - Negative Risk Performed By: #### 1 7861-6, CBCA, 2731-8, FEPR, 60926-5, LIVR, 2132-9, 2284-8, 79422-8, 2276-4 #### [facility] ([id number]) [address] [place] [address], [address] [place] [address] #### 2998-3, VITASP #### [facility] ([id number]) [address] [place] [address] Cholesterol in LDL [Mass/Vol] 42 mg/dL Normal <130 [facility] Comment on above: Result Comment: LDL <100 mg/dL - Desirable LDL >160 mg/dL - High Risk Performed By: #### 1 7861-6, CBCA, 2731-8, FEPR, 79449-0, LIVR, 2132-9, 2284-8, 37623-0, 2276-4 #### [facility] ([id number]) [address] [place] [address], [address] [place] [address] #### 2998-3, VITASP #### [facility] ([id number]) [address] [place] [address] Cholesterol in VLDL [Mass/Vol] 25 mg/dL Normal 0-30 [facility] Comment on above: Performed By: #### 1 7861-6, CBCA, 2731-8, FEPR, 09063-5, LIVR, 2132-9, 2284-8, 09697-2, 2276-4 #### [facility] ([id number]) [address] [place] [address], [address] [place] [address] #### 2998-3, VITASP #### [facility] ([id number]) [address] [place] [address] CHOLESTEROL:HDL 1.9 Normal 1.0-5.0 [facility] Comment on above: Performed By: #### 1 7861-6, CBCA, 2731-8, FEPR, 95116-9, LIVR, 2132-9, 2284-8, 91725-3, 2276-4 #### [facility] ([id number]) [address], [address] [place] [address] #### 2998-3, VITASP #### [facility] ([id number]) [address] [place] [address] Triglyceride [Mass/Vol] 127 mg/dL Normal 27-150 [facility] Comment on above: Performed By: #### 1 7861-6, CBCA, 2731-8, FEPR, 20315-9, LIVR, 2132-9, 2284-8, 85441-2, 2276-4 #### [facility] ([id number]) [address], [address] [place] [address] #### 2998-3, VITASP #### [facility] ([id number]) [address] [place] [address] Parathyrin.intact [Mass/Vol] on 11-30-2023 PTH INTACT 117 pg/mL High 12-88 [facility] Comment on above: Performed By: #### C BC, CMP #### [facility] ([id number]) [address], [address] [place] [address] Thiamine (Bld) [Mass/Vol]on 11-30-2023 THIAMIN VITAMIN B1 See Below Normal [facility] Comment on above: Result Comment: NOTE [...] developed and its performance characteristics determined by [facility]'s [facility] Pathology and Laboratory Medicine [place] ([facility]). It has not been cleared or approved by the FDA. [facility] is regulated under CLIA as qualified to perform high-complexity testing. This test is used for clinical purposes. It should not be regarded as investigational or for research. Test Performed By: [place] [address] Window Unit Air Conditioning Mechanic: Maxime Weston III, M.D. CLIA #[id number] Performed By: #### C JACINDA, CMP #### [facility] ([id number]) [address], [address] [place] [address] VITAMIN A(RETINOL)on 024 RETINYL PALMITATE 0.03 mg/L Normal 0.00-0.10 [facility] Comment on above: Performed By: #### Sara MONACO, CMP #### [facility] ([id number]) [address], [address] [place] [address] VIT A,SER/PL INTERP NORMAL Normal [facility] Comment on above: Result Comment: NOTE This test was developed and its performance characteristics determined by [employer]. It has not been cleared or approved by the US Food and Drug Administration. This test was performed in a CLIA certified laboratory and is intended for clinical purposes. Performed By: [facility] [address] [place] [address] Window Unit Air Conditioning Mechanic: Jordin Henriquez MD, PhD CLIA Number: [id number] Performed By: #### C JACINDA, CMP #### [facility] ([id number]) [address], [address] [place] [address] VITAMIN A(RETINOL) 0.87 mg/L Normal 0.30-1.20 [facility] Comment on above: Performed By: #### C BC, CMP #### [facility] ([id number]) [address] [place] [address], [address] [place] [address] VITAMIN B12on 11-30-2023 Cobalamin (Vitamin B12) [Mass/Vol] pg/mL High 180-914 [facility] Comment on above: Performed By: #### 1 7861-6, CBCA, 2731-8, FEPR, 15826-9, LIVR, 2132-9, 2284-8, 86882-3, 2276-4 #### [facility] ([id number]) [address] [place] [address], [address] [place] [address] #### 2998-3, VITASP #### [facility] ([id number]) [address] [place] [address], [place] [address] Vitamin D+Metabolites [Mass/ Vol]on 11-30-2023 VITAMIN D 25 HYD TOT 48.9 ng/mL Normal 30-100 [facility] Comment on above: Result Comment: Vitamin D status 25 [place] Vitamin D Deficiency <20 ng/mL Insufficiency 20-29 ng/mL Sufficiency 30-100 ng/mL Toxicity >100 ng/mL NOTE: A pediatric reference range has not been established by the motor teacher of this kit. The [place] [employer] recommends a Vitamin D level of = or >20ng/mL in infants and children. Performed By: #### C BC, CMP #### [facility] ([id number]) [address] [place] [address], [address] [place] [address] Zinc [Mass/Vol]on 11-30-2023 ZINC 106 ug/dL Normal 60-120 [facility] Comment on above: Result Comment: NOTE This test was developed and its performance characteristics determined by [facility]'s [facility] Pathology and Laboratory Medicine [place] ([facility]). It has not been cleared or approved by the FDA. [facility] is regulated under CLIA as qualified to perform high-complexity testing. This test is used for clinical purposes. It should not be regarded as investigational or for research. Test Performed By: [place] [address] Window Unit Air Conditioning Mechanic: Maxime Weston III, M.D. CLIA #[id number] Performed By: #### C JACINDA, CMP #### [facility] ([id number]) [address] [place] [address], [address] [place] [address] Follow-Upon 11-17-2023 Follow-Up [id number] Keila Garcia 1955 F Date Provider Department Center 11/17/2023 GREG PATEL [facility] No family history on file Level of Service:68818 [place] OFFICE/OUTPATIENT ESTABLISHED [facility] 20 MIN Reason for Visit and Comments: Follow-up [607328] Normal [facility] POCT Protime / INRon 11-12- 024 INR Coag (PPP) [Relative time] 1.8 {INR} Abnormal 0.8 - 1.2 [facility] Interpretation and review of laboratory results Abnormal [facility] POCT Protime / INRon 10-02- 024 INR Coag (PPP) [Relative time] 2.2 {INR} Abnormal 0.8 - 1.2 [facility] Interpretation and review of laboratory results Abnormal [facility] COMPLETE BLOOD COUNTon 09-25 Erythrocyte distribution width (RBC) [Ratio] 14.2 % Normal 11.5-15.0 [facility] Comment on above: Performed By: #### C JACINDA, CMP #### [facility] ([id number]) [address] [place] [address], [address] [place] [address] Hematocrit (Bld) [Volume fraction] 38.3 % Normal 35-47 [facility] Comment on above: Performed By: #### C BC, CMP #### [facility] ([id number]) [address], [address] [place] [address] Hemoglobin (Bld) [Mass/Vol] 12.5 g/dL Normal 11.7-15.5 [facility] Comment on above: Performed By: #### Sara MONACO, CMP #### [facility] ([id number]) [address], [address] [place] [address] MCH (RBC) [Entitic mass] 31.1 pg Normal 27-34 [facility] Comment on above: Performed By: #### Sara MONACO, CMP #### [facility] ([id number]) [address], [address] [place] [address] MCHC (RBC) [Mass/Vol] 32.7 g/dL Normal 32-36 [facility] Comment on above: Performed By: #### Sara MONACO, CMP #### [facility] ([id number]) [address], [address] [place] [address] MCV (RBC) [Entitic vol] 95 fL Normal 80-100 [facility] Comment on above: Performed By: #### Sara MONACO, CMP #### [facility] ([id number]) [address], [address] [place] [address] Platelet mean volume (Bld) [Entitic vol] 7.5 fL Normal 7-12 [facility] Comment on above: Performed By: #### Sara MONACO, CMP #### [facility] ([id number]) [address] [address] [place] [address] Platelets (Bld) [#/Vol] 287 10*3/uL Normal 150-450 [facility] Comment on above: Performed By: #### C BC, CMP #### [facility] ([id number]) [address], [address] [place] [address] RBC COUNT 4.03 X10E12/L Normal 3.80-5.20 [facility] Comment on above: Performed By: #### C JACINDA, CMP #### [facility] ([id number]) [address], [address] [place] [address] WBC (Bld) [#/Vol] 11.2 10*3/uL High 4.0-11.0 [facility] Comment on above: Performed By: #### C JACINDA, CMP #### [facility] ([id number]) [address], [address] [place] [address] COMPREHENSIVE METABOLIC PANE [place] 09-25-2023 Albumin [Mass/Vol] 4.2 g/dL Normal 3.2-5.3 [facility] Comment on above: Performed By: #### C JACINDA, CMP #### [facility] ([id number]) [address], [address] [place] [address] ALP [Catalytic activity/Vol] 67 U/L Normal 39-130 [facility] Comment on above: Performed By: #### C JACINDA, CMP #### [facility] ([id number]) [address], [address] [place] [address] ALT [Catalytic activity/Vol] 9 U/L Normal 0-31 [facility] Comment on above: Performed By: #### Sara MONACO, CMP #### [facility] ([id number]) [address], [address] [place] [address] Anion gap [Moles/Vol] 12 mmol/L Normal 5-15 [facility] Comment on above: Performed By: #### C JACINDA, CMP #### [facility] ([id number]) [address], [address] [place] [address] AST [Catalytic activity/Vol] 14 U/L Normal 0-41 [facility] Comment on above: Performed By: #### C BC, CMP #### [facility] ([id number]) [address], [address] [place] [address] Bilirubin [Mass/Vol] 0.6 mg/dL Normal 0.3-1.2 [facility] Comment on above: Performed By: #### C JACINDA, CMP #### [facility] ([id number]) [address] [address] [place] [address] Calcium [Mass/Vol] 9.1 mg/dL Normal 8.5-10.5 [facility] Comment on above: Performed By: #### C JACINDA, CMP #### [facility] ([id number]) [address] [address] [place] [address] Chloride [Moles/Vol] 103 mmol/L Normal 98-109 [facility] Comment on above: Performed By: #### Sara MONACO, CMP #### [facility] ([id number]) [address] [address] [place] [address] CO2 [Moles/Vol] 23 mmol/L Normal 22-32 [facility] Comment on above: Performed By: #### Sara MONACO, CMP #### [facility] ([id number]) [address] [address] [place] [address] Creatinine [Mass/Vol] 1.67 mg/dL High 0.40-1.00 [facility] Comment on above: Result Comment: METH OD TRACEABLE TO IDMS STANDARD Performed By: #### C JACINDA, CMP #### [facility] ([id number]) [address] [address] [place] [address] GFR/1.73 sq M.predicted among non-blacks MDRD (S/P/Bld) [Vol rate/Area] 33 mL/min/{1.73_m2} Low >59 [facility] Comment on above: Result Comment: Reported eGFR is based on the CKD-EPI 2020 equation that does not use a race coefficient. Performed By: #### C JACINDA, CMP #### [facility] ([id number]) [address] [address] [place] [address] Glucose [Mass/Vol] 85 mg/dL Normal 65-99 [facility] Comment on above: Performed By: #### C BC, CMP #### [facility] ([id number]) [address], [address] [place] [address] Potassium [Moles/Vol] 3.5 mmol/L Normal 3.5-5.0 [facility] Comment on above: Performed By: #### C BC, CMP #### [facility] ([id number]) [address], [address] [place] [address] Protein [Mass/Vol] 6.8 g/dL Normal 6.0-8.0 [facility] Comment on above: Performed By: #### C BC, CMP #### [facility] ([id number]) [address], [address] [place] [address] Sodium [Moles/Vol] 138 mmol/L Normal 134-146 [facility] Comment on above: Performed By: #### C BC, CMP #### [facility] ([id number]) [address], [address] [place] [address] Urea nitrogen [Mass/Vol] 30 mg/dL High 5-27 [facility] Comment on above: Performed By: #### C BC, CMP #### [facility] ([id number]) [address], [address] [place] [address] MICROALBUMIN - ALBUMIN:CREAT ININE URINE RATIOon 09-25-2023 ALB/CREAT RATIO 198.7 mg/g creat High 0.0-30.0 [facility] Comment on above: Performed By: #### M ALBU #### [facility] ([id number]) [address], [address] [place] [address] Albumin DL <= 20 mg/L (U) [Mass/Vol] 10.4 mg/dL High 0.0-1.9 [facility] Comment on above: Performed By: #### M ALBU #### [facility] ([id number]) [address], [address] [place] [address] URINE CREAT 52.33 mg/dL Normal [facility] Comment on above: Performed By: #### M ALBU #### [facility] ([id number]) [address], [address] [place] [address] HPon 07-29-2023 HP -- Attestation signed by [...] follow in the cardiac clinic at the [facility] for paroxysmal atrial fibrillation, hypertension. She has history of CKD3, YUNG, She is here today for tilt table test. She was recently evaluated September 2022 at the [facility] for dizziness and fall. patient experiencing multiple [...] and oriented to person, place and time. [facility] lexiscan stress 2020: Negative perfusion stress test for ischemia, Normal myocardial perfusion with soft tissue artifact, Normal global left ventricular function, No transient ischemia dilatation and No ischemic ECG changes were seen Echo complete W/O contrast [facility] Promedic 2022 Order: [id number] Narrative Left Ventricle: Systolic function is normal [...] no pericardial effusion. Lab Review: 11/17/2022 Order: [id number] Ref Range & Units 2 d ago Cholesterol 150 - 200 mg/dL 303 High Triglycerides 27 - 150 mg/dL 264 High HDL Cholesterol >39 mg/dL 84 Comment: HDL <40 mg/dL - High Risk HDL > or = 40mg/dL- Desirable HDL >60 mg/dL - Negative (more content not included)... Normal [facility] Orders Onlyon 07-28-2023 Orders Only [id number] Keila Garcia 1955 F Date Provider Department Center 07/28/2023 EAMON HANSEN [facility] No family history on file Normal [facility] Covid-19 Ambulatoryon 2019 SARS-CoV-2, KIM Not Detected Not Detected [facility] [place] Comment on above: (NOTE) This nucleic acid amplification test was developed and its performance characteristics determined by [employer]. Nucleic acid amplification tests include PCR and [...] detected) result in this assay. Performed At: [facility] [address] [facility] [place] [id number] Jeff Multani MD Ph:[phone] [id number] 08-05-2020 SARS-CoV-2 Not Detected Normal Not Detected [facility] Comment on above: Result Comment: (NOT E) This nucleic acid amplification test was developed and its performance characteristics determined by [employer]. Nucleic acid amplification tests include PCR and [...] detected) result in this assay. 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 Garcia reports being recently evaluated at [facility] and was apparently informed that her [...] Mrs. Garcia reports she was born in [place], [place] and raised in [place], where she presently resides with her . Mrs. Garcia reports she has been to her for approximately two years (together for 40 years); she reports having no children. EDUCATIONAL HISTORY: Mrs. Garcia reports she graduated from high school and completed one year of college at the [employer], where she studied education. 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 CURRENT FUNCTIONING: Behavioral: Mrs. Garcia [...] Scale IQ in the high average range (ROHY=016). She was also administered a reading recognition task designed to estimate premorbid intellectual abilities; performance was in the average range and no attenuation of intellectual abilities is identified. The remainder of obtained index scores are as follows: Verbal Comprehension Index was in the superior range (LZL=721); Perceptual Reasoning Index was in the average range (FJP=514); Working Memory Index was in the average range (WWM=538); Processing Speed Index was in the high average range (JUA=001). Visual Perception: Abilities in this domain are [...] Perceptual Reasoning Index in the average range (AYQ=534). Speech and Language: Abilities in this domain [...] Verbal Comprehension Index in the superior range (HVH=450). Mrs. Garcia was also administered tasks of [...] Working Memory Index in the average range (ZIW=029). Memory: Abilities in this domain are intact [...] Immediate Memory Index in the superior range (DKG=018) and a Delayed Memory Index in the very superior range (WMK=029). No attenuation of memory abilities is identified. [...] Speed Index in the high average range (RMW=041). Higher Cognitive Functioning: Abilities in this domain are intact and consistent with IQ functioning. Performance on a task of motor speed sequencing was in the high average range. Performance on a more complex motor sequencing task involving set-shifting and cognitive flexibility was in the superior range. Affective Functioning: Mrs. Garcia was administered the [place] Multiphasic Personality Aimtfglwh-4-UQ (MMPI-2-RF). Evaluation of the validity scales raises [...] (scaled scores): SI=13, VC=16, IN=13, BD=10, MA=9, BRUSH MAKER=16, DS=12, AR=10, SS=14, CD=12 NCWS=165 Pegs: Dominant=72 seconds; non-dominant=86 seconds TMT: A=20 [...] ); she indicates a recent evaluation at [facility] ruled out MS. Mrs. Garcia expressed [...] the word, like playing a game of charCleversafe. Even gesturing with your hands in a [...] down or pictured. A communication notebook, the [employer] hever in your phone, or a ticket [...] If you have any questions, please call [phone]. DICTATED BY: Roel De León, PhD Neuropsychology Fellow REVIEWED BY: Electronically Signed by: Fidelina Mota, PhD, ABPP 09/07/2018 12:03 P Fidelina Mota PhD, ABPP Board Certified Clinical Neuropsychologist Date Dict: 08/11/2018/01:57 P/Roel De León, PhD Date Trans: 08/11/2018 02:43 P/mmo Addendum: 08/13/2018 08:14 Rangel/stalin [id number] cc: Fidelina Mota, PhD, ABPP [address] Rehab Medicine [facility] [address] Charlotte Boateng M.D. [address] [facility] [address] Javan Julien M.D. [facility] Neurology [address] [facility] [address] *Mrs. Keila Garcia [address] [facility] [place] [place] [address] Normal [facility] US UROLOGY PELVIC ULTRASOUND on 01-27-2018 US UROLOGY PELVIC ULTRASOUND [facility] Department of Radiology [address] [place] [id number] ======== Patient Name: KEILA GARCIA : 1955 Sex: F Age: Race: Other Pt. Location: [facility] Patient Status: O Ordered Date: 01/25/2018 [...] identified. Electronically signed by:Ludwin Daly. Transcribed by: [email or web address], User Resident: Electronically Signed by: LUDWIN DALY @ 01/27/2018 03:12 PM Normal [facility] Vital Signs Date Time Vital Sign Value Performing Clinician Facility 07-20-2024 13:48-0400 Body height 165.1 cm Rafat Sepulveda MD Work Phone: [facility] 07-20-2024 13:48-0400 Body mass index (BMI) [Ratio] 32.45 kg/m2 Rafat Sepulveda MD Work Phone: [facility] 07-20-2024 13:48-0400 Body temperature 97 [degF] Rafat Sepulveda MD Work Phone: [facility] 07-20-2024 13:48-0400 Body weight 88.45 kg Rafat Sepulveda MD Work Phone: [facility] 03-23-2024 14:13-0400 Body height 167.6 cm Bib Alva MD Work Phone: [facility] 03-23-2024 14:13-0400 Body mass index (BMI) [Ratio] 31.15 kg/m2 Bib Alva MD Work Phone: [facility] 03-23-2024 14:13-0400 Body weight 87.54 kg Bib Alva MD Work Phone: [facility] 03-23-2024 14:13-0400 Diastolic blood pressure 71 mm[Hg] Bib Alva MD Work Phone: [facility] 03-23-2024 14:13-0400 Heart rate 80 /min Bib Alva MD Work Phone: [facility] 03-23-2024 14:13-0400 Systolic blood pressure 105 mm[Hg] Bib Alva MD Work Phone: [facility] 12-18-2023 11:00-0400 Body height 167.6 cm Nuria Hoitenga PA-C Work Phone: [facility] 12-18-2023 11:00-0400 Body mass index (BMI) [Ratio] 30.26 kg/m2 Nuria Hoitenga PA-C Work Phone: [facility] 12-18-2023 11:00-0400 Body temperature 97 [degF] Nuria Hoitenga PA-C Work Phone: [facility] 12-18-2023 11:00-0400 Body weight 85 kg Nuria Goodwinitenga PA-C Work Phone: [facility] 12-18-2023 11:00-0400 Diastolic blood pressure 68 mm[Hg] Nuria Hoitenga PA-C Work Phone: [facility] 12-18-2023 11:00-0400 Heart rate 79 /min Nuria Hoitenga PA-C Work Phone: [facility] 12-18-2023 11:00-0400 Systolic blood pressure 105 mm[Hg] Nuria Hoitenga PA-C Work Phone: [facility] 10-28-2023 15:17-0500 Diastolic blood pressure 62 mm[Hg] Loreta Deyanira HATCHERY WORKER Work Phone: [facility] 10-28-2023 15:17-0500 Systolic blood pressure 118 mm[Hg] Loreta Deyanira HATCHERY WORKER Work Phone: [facility] 10-28-2023 14:41-0500 Body height 165.1 cm Loreta Deyanira HATCHERY WORKER Work Phone: [facility] 10-28-2023 14:41-0500 Body mass index (BMI) [Ratio] 31.52 kg/m2 Loreta Deyanira HATCHERY WORKER Work Phone: [facility] 10-28-2023 14:41-0500 Body weight 85.91 kg Loreta Deyanira HATCHERY WORKER Work Phone: [facility] 10-28-2023 14:41-0500 Heart rate 68 /min Loreta Deyanira HATCHERY WORKER Work Phone: [facility] 07-23-2023 15:30-0400 Body height 165.1 cm Nate Peralta Other [employer] Other 07-23-2023 15:30-0400 Body mass index (BMI) [Ratio] 30.28 kg/m2 Nate Peralta Other [employer] Other 07-23-2023 15:30-0400 Body temperature 97.7 [degF] Nate Peralta Other [employer] Other 07-23-2023 15:30-0400 Body weight 82.56 kg Nate Peralta Other [employer] Other 07-23-2023 15:30-0400 Diastolic blood pressure 63 mm[Hg] Nate Peralta Other [employer] Other 07-23-2023 15:30-0400 Systolic blood pressure 111 mm[Hg] Nate Peralta Other [employer] Other 05-27-2023 13:15-0400 Body height 165.1 cm Nate Peralta Other [employer] Other 05-27-2023 13:15-0400 Body mass index (BMI) [Ratio] 30.28 kg/m2 Nate Peralta Other [employer] Other 05-27-2023 13:15-0400 Body temperature 97.2 [degF] Nate Peralta Other [employer] Other 05-27-2023 13:15-0400 Body weight 82.56 kg Nate Peralta Other [employer] Other 05-27-2023 13:15-0400 Diastolic blood pressure 71 mm[Hg] Nate Peralta Other [employer] Other 05-27-2023 13:15-0400 Systolic blood pressure 125 mm[Hg] Nate Kathryn Other [employer] Other 08-07-2020 11:08-0500 BP Diastolic 81 mm[Hg] Jany Santizo [facility] , [place] 08-07-2020 11:08-0500 BP Systolic 139 mm[Hg] Jany Santizo [facility] , [place] 08-07-2020 11:08-0500 Pulse (Heart Rate) 78 /[facility] [place] 08-07-2020 11:08-0500 Pulse Oximetry 100 % [facility] [place] 08-07-2020 11:08-0500 Respiratory Rate 20 /min [facility] [place] 08-07-2020 08:37-0500 Body Temperature 97.81 [degF] Jany Santizo [facility] , [place] 08-07-2020 08:37-0500 Height 167.6 cm Jany Santizo [place], [place] Encounters Encounter Date Encounter Type Care Provider Facility Start: 07-20-2024 End: 07-20-2024 Postop follow up visit related to original px Rafat Sepulveda MD Work Phone: [facility] Comment on above: Closed displaced sup racondylar fracture of distal end of left femur without intracondylar extension with routine healing, subsequent encounter (Primary Dx) Start: 07-20-2024 End: 07-20-2024 ambulatory MADELEINE L [facility] Start: 07-06-2024 End: 07-06-2024 Telephone encounter Marie [facility] Start: 06-22-2024 End: 06-22-2024 ambulatory RAFAT SEPULVEDA [facility] Start: 06-13-2024 End: 06-13-2024 ambulatory ALANNA ANDERSON [facility] Start: 06-10-2024 End: 06-10-2024 Evaluation and management of inpatient FIDELINA GUILLEN [facility] Start: 06-06-2024 End: 06-10-2024 Evaluation and management of inpatient DANIEL MONTALVO [facility] Start: 06-06-2024 End: 06-06-2024 ambulatory JOHANA Marie [facility] Start: 06-03-2024 End: 06-10-2024 Evaluation and management of inpatient MICAH VICTOR [facility] Start: 06-03-2024 Encounter for preprocedural respiratory examination CORDELL MORALES [facility] Start: 06-03-2024 End: 06-10-2024 Evaluation and management of inpatient FIDELINA GUILLEN [facility] Start: 06-02-2024 End: 06-03-2024 Emergency department patient visit JOHANA [facility] Start: 06-02-2024 End: 06-03-2024 Emergency department patient visit RADHA HAMLIN [facility] Start: 05-25-2024 End: 05-29-2024 ambulatory [facility] Start: 05-20-2024 End: 05-29-2024 ambulatory [facility] Start: 05-18-2024 End: 05-18-2024 ambulatory LORETA MCMILLAN Not Available Start: 05-17-2024 End: 05-29-2024 [facility] Start: 05-13-2024 End: 05-13-2024 ambulatory KAYLEY BULLOCK Not Available Start: 05-12-2024 Orders Only Bib Pineda Work Phone: [facility] Comment on above: Idiopathic progressi ve polyneuropathy (Primary Dx) Start: 05-05-2024 End: 05-05-2024 ambulatory JACQUIE BROOKS Not Available Start: 05-04-2024 End: 05-04-2024 ambulatory BIB ALVA Facility:[facility] Start: 05-04-2024 End: 05-04-2024 Patient encounter procedure Emg 2 Neur [facility] Rej (Max Weight: 400) Work Phone: Neurology Comment on above: EMG Start: 05-03-2024 End: 05-03-2024 ambulatory STEPHAN MORSE Not Available Start: 05-02-2024 End: 05-02-2024 ambulatory BIB DORSEY Facility:[facility] Start: 05-02-2024 End: 05-02-2024 Subsequent hospital visit by physician Emily Wagner [facility] Tamia (7t) Work Phone: Radiology Comment on above: Demyelinating diseas e of central nervous system (HCC) [G37.9] Start: 04-28-2024 End: 04-28-2024 ambulatory STEPHAN MORSE Not Available Start: 04-21-2024 End: 04-21-2024 [facility] Start: 04-20-2024 End: 04-20-2024 ambulatory LORETA A DEYANIRA Not Available Start: 04-20-2024 End: 04-20-2024 ambulatory LORETA MCMILLAN Not Available Start: 04-19-2024 End: 04-19-2024 ambulatory [facility] Neurology Comment on above: No Show Start: 04-19-2024 End: 04-19-2024 Patient encounter procedure Emg 1 Neur [facility] Naldo (Max Weight:400) Work Phone: Neurology Start: 04-17-2024 End: 04-18-2024 Emergency department patient visit RADHA HAMLIN [facility] Start: 04-15-2024 End: 04-28-2024 [facility] Start: 04-06-2024 End: 04-06-2024 [facility] Start: 03-30-2024 End: 04-28-2024 ambulatory [facility] Start: 03-25-2024 End: 03-28-2024 [facility] Start: 03-23-2024 End: 03-23-2024 ambulatory BIB DORSEY Facility:[facility] Start: 03-23-2024 End: 03-23-2024 Patient encounter procedure Bib Alva MD Work Phone: [facility] Comment on above: Demyelinating diseas e of central nervous system (HCC) (Primary Dx); Cervical spondylosis with myelopathy; Ataxia Start: 03-22-2024 End: 03-28-2024 ambulatory [facility] Start: 02-23-2024 End: 02-23-2024 ambulatory [facility] Start: 02-19-2024 End: 02-27-2024 ambulatory [facility] Start: 02-15-2024 End: 02-15-2024 ambulatory KIANNA LUKE [facility] Start: 02-09-2024 End: 02-09-2024 ambulatory LORETA MCMILLAN Not Available Start: 02-03-2024 End: 02-03-2024 ambulatory [facility] Start: 02-03-2024 End: 02-27-2024 ambulatory [facility] Start: 02-02-2024 End: 02-27-2024 ambulatory [facility] Start: 01-27-2024 End: 02-27-2024 ambulatory [facility] Start: 01-25-2024 End: 01-25-2024 ambulatory LORETA MCMILLAN Not Available Start: 01-13-2024 End: 01-13-2024 ambulatory [facility] Start: 01-13-2024 End: 01-13-2024 ambulatory JACQUIE CROWLIN Not Available Start: 01-13-2024 End: 01-27-2024 ambulatory [facility] Start: 01-08-2024 End: 01-27-2024 ambulatory [facility] Start: 12-31-2023 End: 01-27-2024 ambulatory [facility] Start: 12-29-2023 End: 01-27-2024 ambulatory [facility] Start: 12-24-2023 End: 12-28-2023 ambulatory [facility] Start: 12-18-2023 End: 12-18-2023 ambulatory ANNA CLEARY [facility] Start: 12-18-2023 End: 12-18-2023 Office outpatient visit 15 minutes Anna Cleary MD Work Phone: [facility] Comment on above: Vitreous floaters of both eyes (Primary Dx); Posterior vitreous detachment of both eyes; Dry eyes, bilateral; Nuclear sclerotic cataract of both eyes; Macular drusen, bilateral Start: 12-18-2023 End: 12-18-2023 Office outpatient visit 25 minutes Nuria Braden PA-C Work Phone: [facility] Comment on above: History of sleeve ga strectomy (Primary Dx); Postsurgical malabsorption; Malnutrition following gastrointestinal surgery Start: 12-18-2023 End: 12-18-2023 ambulatory NURIA HERMOSILLORangel [facility] Start: 12-10-2023 End: 12-10-2023 ambulatory [facility] Start: 12-10-2023 End: 12-10-2023 Follow-up encounter [facility] Shae Mtm 1 [facility] Medication Therapy Management 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) Start: 11-30-2023 End: 11-30-2023 ambulatory MARCI CROFT [facility] Start: 11-17-2023 ambulatory GREG Arredondo [facility] Start: 11-12-2023 End: 11-12-2023 ambulatory [facility] Start: 11-12-2023 End: 11-12-2023 Follow-up encounter [facility] Natalie [address] [facility] Medication Therapy Management 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) Start: 11-11-2023 Telephone encounter Jacquie Sheldon Work Phone: [facility] Start: 11-04-2023 Telephone encounter Natalie Garnica MA [facility] Medication Therapy Management Start: 11-04-2023 End: 11-27-2023 ambulatory JOBST [facility] Start: 11-02-2023 End: 11-27-2023 ambulatory JOBST [facility] Start: 10-30-2023 End: 11-27-2023 ambulatory [facility] Start: 10-28-2023 End: 10-28-2023 Office outpatient visit 40 minutes Loreta Mcmillan NP Work Phone: [facility] Comment on above: First degree AV bloc k (Primary Dx); Chronic atrial fibrillation, unspecified (I48.20); Sacroiliitis, not elsewhere classified (M46.1); Major depressive disorder, single episode, moderate (F32.1); Other giant cell arteritis (M31.6); Atherosclerosis of aorta (I70.0); Other secondary hypertension ([facility]/HCC); Essential hypertension, benign ([facility]/HCC); LVH (left ventricular hypertrophy); Prolonged Q-T interval on ECG; Stage 3b chronic kidney disease (HCC) ([facility]/HCC); Hyperparathyroidism, secondary renal ([facility]/HCC); Iron deficiency anemia secondary to inadequate dietary iron intake; History of borderline diabetes mellitus; Dyslipidemia ([facility]/HCC); History of sleeve gastrectomy; Lymphedema; Recurrent major depression in partial remission (HCC) ([facility]/HCC); Urinary urgency; White matter abnormality on MRI of brain; Tinnitus, unspecified laterality; Repeated falls; Tear film insufficiency, unspecified laterality; Nuclear sclerotic cataract of both eyes; Posterior vitreous detachment of right eye; Age-related osteoporosis without current pathological fracture ([facility]/HCC); Primary lymphedema; Degeneration of cervical intervertebral disc; Neurogenic claudication; Bilateral shoulder pain, unspecified chronicity; Congenital spondylolisthesis; Disc disorder; Idiopathic scoliosis and kyphoscoliosis; Inflammation of sacroiliac joint ([facility]/HCC); Presence of artificial knee joint, bilateral; Microalbuminuria; Urge incontinence; Bladder disorder; Status post bariatric surgery; Atrial fibrillation, unspecified type ([facility]/HCC); Hypertensive heart and chronic kidney disease without heart failure, with stage 1 through stage 4 chronic kidney disease, or unspecified chronic kidney disease ([facility]/HCC); Gastroesophageal reflux disease, unspecified whether esophagitis present; Decreased hearing, unspecified laterality; Encounter to establish care; Diarrhea, unspecified type; Visual impairment; Vitreous floaters of right eye; correction current use of 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; Gait disorder Start: 10-28-2023 End: 10-28-2023 ambulatory LORETA MCMILLAN Not Available Start: 10-27-2023 Orders Only Keila Botello Work Phone: [facility] Comment on above: History of sleeve ga strectomy (Primary Dx); Postsurgical malabsorption; Malnutrition following gastrointestinal surgery; History of hyperlipidemia; History of anemia Start: 10-21-2023 Telephone encounter Aviva Mon alfredo [facility] Comment on above: Appointment (5 year follow up visit) Start: 10-19-2023 End: 10-19-2023 ambulatory [facility] Start: 10-02-2023 End: 10-02-2023 ambulatory [facility] Start: 10-02-2023 End: 10-02-2023 Follow-up encounter [facility] Mt 1 [facility] Medication Therapy Management Comment on above: correction current us e of 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 (Primary Dx) Start: 09-30-2023 End: 10-29-2023 ambulatory MARIE Akanksha WESLEY Not Available Start: 09-25-2023 End: 09-25-2023 ambulatory MARIE WESLEY [facility] Start: 07-29-2023 End: 07-29-2023 ambulatory GREG FLORES [facility] Start: 07-23-2023 End: 07-23-2023 ambulatory Nate Peralta Other [employer] Other Start: 07-23-2023 Office outpatient vi sit 25 minutes Nate Peralta [facility] Start: 05-27-2023 End: 05-27-2023 ambulatory Nate Peralta Other [employer] Other Start: 05-27-2023 Office outpatient ne w 45 minutes Nate Peralta [facility] Start: 08-07-2020 End: 08-07-2020 Patient encounter procedure JANY SANTIZO [facility] Start: 08-07-2020 End: 08-07-2020 Subsequent hospital visit by physician Jany Santizo Work Phone: [facility] Start: 08-03-2020 End: 08-08-2020 Patient encounter procedure CHARLOTTE BOATENG [facility] Start: 08-03-2020 End: 08-07-2020 Subsequent hospital visit by physician Flip VELASQUEZ PRE-ADMIT TESTING Start: 01-03-2019 End: 01-04-2019 Patient encounter procedure DEFAULT PHYSICIAN Facility:[facility] Start: 08-28-2018 End: 09-28-2018 Patient encounter procedure VINICIUSD MANJINDER Facility:[facility] Start: 08-11-2018 End: 08-28-2018 Patient encounter procedure JAVAN MANJINDER Facility:[facility] Start: 01-27-2018 End: 01-28-2018 Patient encounter procedure CHARLOTTE BOATENG Facility:[facility] Start: 01-15-2018 End: 01-16-2018 Patient encounter procedure PROVIDER UNKNOWN Facility:[facility] Procedures Date Procedure Procedure Detail Performing Clinician [...] 10-07-2032 Screening for malignant neoplasm of colon [facility] Start: 11-29-2028 Lipid panel Lipid Screening [facility] Start: 02-14-2027 Diabetes Screening Diabetes Screening [facility] Start: 07-25-2025 Tobacco Screening Tobacco Screening [facility] Start: 07-20-2025 Adult BMI Screening Adult BMI Screening [facility] Start: 06-23-2025 Tobacco Screening Tobacco Screening [facility] Start: 06-22-2025 Adult BMI Screening Adult BMI Screening [facility] Start: 06-03-2025 Depression Screening Depression Screening [facility] Start: 03-23-2025 BP Controlled (<130/80) BP Controlled (<130/80) [facility] Start: 02-14-2025 Creatinine measurement Serum Creatinine [facility] Start: 02-08-2025 Screening for malignant neoplasm of breast [facility] Start: 12-17-2024 Adult BMI Screening Adult BMI Screening [facility] Start: 12-17-2024 Tobacco Screening Tobacco Screening [facility] Start: 11-29-2024 Complete blood count Hemoglobin/Hematocrit [facility] Start: 11-28-2024 End: 11-28-2025 Calcium [Mass/volume] in Serum or Plasma Calcium Lab Routine History of sleeve gastrectomy 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 Expected: 11/28/2024 (Approximate), Expires: 11/28/2025 [facility] Comment on above: Expected: 11/28/2024 (Approximate), Expi res: 11/28/2025 Start: 11-28-2024 End: 11-28-2025 CBC W Auto Differential panel - Blood CBC auto differential Lab Routine History of sleeve gastrectomy 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 Expected: 11/28/2024 (Approximate), Expires: 11/28/2025 [facility] Comment on above: Expected: 11/28/2024 (Approximate), Expi res: 11/28/2025 Start: 11-28-2024 End: 11-28-2025 Copper, serum Copper, serum Lab Routine History of sleeve gastrectomy 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 Expected: 11/28/2024 (Approximate), Expires: 11/28/2025 [facility] Comment on above: Expected: 11/28/2024 (Approximate), Expi res: 11/28/2025 Start: 11-28-2024 End: 11-28-2025 Cyanocobalamin vitamin b-12 Vitamin B12 Lab Routine History of sleeve gastrectomy 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 Expected: 11/28/2024 (Approximate), Expires: 11/28/2025 [facility] Comment on above: Expected: 11/28/2024 (Approximate), Expi res: 11/28/2025 Start: 11-28-2024 End: 11-28-2025 Ferritin [Mass/volume] in Serum or Plasma Ferritin Lab Routine History of sleeve gastrectomy 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 Expected: 11/28/2024 (Approximate), Expires: 11/28/2025 [facility] Comment on above: Expected: 11/28/2024 (Approximate), Expi res: 11/28/2025 Start: 11-28-2024 End: 11-28-2025 Folate Folate Lab Routine History of sleeve gastrectomy 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 Expected: 11/28/2024 (Approximate), Expires: 11/28/2025 [facility] Comment on above: Expected: 11/28/2024 (Approximate), Expi res: 11/28/2025 Start: 11-28-2024 End: 11-28-2025 Iron and TIBC Iron and TIBC Lab Routine History of sleeve gastrectomy 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 Expected: 11/28/2024 (Approximate), Expires: 11/28/2025 [facility] Comment on above: Expected: 11/28/2024 (Approximate), Expi res: 11/28/2025 Start: 11-28-2024 End: 11-28-2025 Lipid 1996 panel - Serum or Plasma Lipid profile Lab Routine History of sleeve gastrectomy 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 Expected: 11/28/2024 (Approximate), Expires: 11/28/2025 [facility] Work Phone: Comment on above: Expected: 11/28/2024 (Approximate), Expi res: 11/28/2025 Start: 11-28-2024 End: 11-28-2025 Liver panel Liver panel Lab Routine History of sleeve gastrectomy 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 Expected: 11/28/2024 (Approximate), Expires: 11/28/2025 [facility] Comment on above: Expected: 11/28/2024 (Approximate), Expi res: 11/28/2025 Start: 11-28-2024 End: 11-28-2025 Parathyroid Hormone, intact Parathyroid Hormone, intact Lab Routine History of sleeve gastrectomy 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 Expected: 11/28/2024 (Approximate), Expires: 11/28/2025 [facility] Comment on above: Expected: 11/28/2024 (Approximate), Expi res: 11/28/2025 Start: 11-28-2024 End: 11-28-2025 Thiamin Vitamin B1, whole blood Thiamin Vitamin B1, whole blood Lab Routine History of sleeve gastrectomy 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 Expected: 11/28/2024 (Approximate), Expires: 11/28/2025 [facility] Comment on above: Expected: 11/28/2024 (Approximate), Expi res: 11/28/2025 Start: 11-28-2024 End: 11-28-2025 Vitamin A (Retinol) Vitamin A (Retinol) Lab Routine History of sleeve gastrectomy 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 Expected: 11/28/2024 (Approximate), Expires: 11/28/2025 [facility] Comment on above: Expected: 11/28/2024 (Approximate), Expi res: 11/28/2025 Start: 11-28-2024 End: 11-28-2025 Vitamin D 25 hydroxy Vitamin D 25 hydroxy Lab Routine History of sleeve gastrectomy 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 Expected: 11/28/2024 (Approximate), Expires: 11/28/2025 [facility] Comment on above: Expected: 11/28/2024 (Approximate), Expi res: 11/28/2025 Start: 11-28-2024 End: 11-28-2025 Zinc Zinc Lab Routine History of sleeve gastrectomy 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 Expected: 11/28/2024 (Approximate), Expires: 11/28/2025 [facility] Comment on above: Expected: 11/28/2024 (Approximate), Expi res: 11/28/2025 Start: 10-19-2024 Tobacco Screening Tobacco Screening [facility] Start: 09-02-2024 End: 09-02-2024 Patient encounter procedure 09/02/2024 10:15 AM EST Office Visit [facility] [address] [address] Rafat Sepulveda MD [address] [place] [address] [facility] Start: 08-23-2024 End: 08-23-2024 Patient encounter procedure 08/23/2024 12:30 PM EST Office Visit [facility] [address] [address] Bib Alva MD [address] [place] [address] Follow up [facility] Comment on above: Follow up Start: 08-18-2024 End: 08-18-2024 Patient encounter procedure 08/18/2024 2:50 PM EST Office Visit [facility] [address] [place] [phone] Anna Cleary MD [address] [place] [address] [facility] Start: 08-11-2024 Tobacco Screening Tobacco Screening [facility] Start: 08-10-2024 Adult BMI Screening Adult BMI Screening [facility] Start: 08-09-2024 Depression Screening Depression Screening [facility] Start: 07-20-2024 End: 07-20-2024 Patient encounter procedure 07/20/2024 2:00 PM EDT Office Visit [facility] [address] [place] [phone] Rafat Sepulveda MD [address] [place] [address] [facility] Start: 05-29-2024 COVID-19 Vaccine () COVID-19 Vaccine () [facility] Start: 05-29-2024 Influenza vaccination [facility] Start: 05-12-2024 Administration of varicella zoster vaccine Zoster (Shingles) Vaccine (2 of 2) [facility] Start: 05-12-2024 Shingrix Vaccine (2 of 2) Shingrix Vaccine (2 of 2) [facility] Start: 05-04-2024 End: 05-04-2024 Patient encounter procedure 05/04/2024 2:15 PM EDT Procedure Neurology [address] [place] [address] [facility] Comment on above: r E LE Start: 04-19-2024 End: 04-19-2024 ambulatory 04/19/2024 12:30 PM EDT Procedure [facility] [address] [place], [place] [id number] [facility] Comment on above: [facility] Start: 01-29-2024 End: 01-29-2024 Patient encounter procedure 01/29/2024 1:15 PM EDT Office Visit [facility] [address] [place] [phone] Jany Smith MD [address] [place] [address] [facility] Start: 01-25-2024 End: 01-25-2024 Patient encounter procedure 01/25/2024 1:00 PM EDT Office Visit [facility] [address] [place] [phone] Loreta Mcmillan NP [address] [place] [address] [facility] Start: 12-24-2023 End: 12-24-2023 Follow-up encounter 12/24/2023 9:30 AM EDT Follow Up Anticoagulation [facility] Therapy Management [address] [place] [address] [facility] Start: 12-18-2023 End: 12-18-2023 Patient encounter procedure 12/18/2023 2:10 PM EDT Office Visit [facility] [address] [facility] [address] [place] [address] Anna Cleary MD [address] [facility] [address] [place] [address] [facility] Start: 12-18-2023 End: 12-18-2023 Patient encounter procedure 12/18/2023 11:30 AM EDT Office Visit [facility] [address] [place] [phone] Nuria Braden PA-C [address] [address] [facility] Start: 12-10-2023 End: 12-10-2023 Follow-up encounter 12/10/2023 11:45 AM EDT Follow Up Anticoagulation [facility] Med[facility] Therapy Management [address] [place] [address] [facility] Start: 11-20-2023 End: 11-20-2023 Patient encounter procedure 11/20/2023 1:30 PM EST Office Visit [facility] [address] [place] [phone] Anna Cleary MD [address] [place] [phone] [facility] Start: 11-17-2023 End: 11-17-2023 Patient encounter procedure 11/17/2023 1:00 PM EST Office Visit [facility]-B[facility] [address] [place] [phone] Marci Croft, LEARNING AND DEVELOPMENT ASSOCIATE-PUBLIC HEALTH ANALYST [address] [place] [address] [facility] Start: 11-12-2023 End: 11-12-2023 Follow-up encounter 11/12/2023 11:45 AM EST Follow Up Anticoagulation [facility] Medication Therapy Management [address] [facility] [place] [address] [facility] Start: 11-03-2023 End: 10-27-2024 [...] History of anemia Expected: 11/03/2023, Expires: 10/27/2024 [facility] Comment on above: Expected: 11/03/2023, Expires: Start: 11-03-2023 End: 10-27-2024 Copper, serum Copper, serum Lab Routine History of sleeve gastrectomy 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 History of hyperlipidemia History of anemia Expected: 11/03/2023, Expires: 10/27/2024 [facility] Comment on above: Expected: 11/03/2023, Expires: Start: 11-03-2023 End: 10-27-2024 Cyanocobalamin vitamin b-12 Vitamin B12 Lab Routine History of sleeve gastrectomy 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 History of hyperlipidemia History of anemia Expected: 11/03/2023, Expires: 10/27/2024 [facility] Comment on above: Expected: 11/03/2023, Expires: Start: 11-03-2023 End: 10-27-2024 Ferritin [Mass/volume] in Serum or Plasma Ferritin Lab Routine History of sleeve gastrectomy 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 History of hyperlipidemia History of anemia Expected: 11/03/2023, Expires: 10/27/2024 [facility] Comment on above: Expected: 11/03/2023, Expires: Start: 11-03-2023 End: 10-27-2024 Folate Folate Lab Routine History of sleeve gastrectomy 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 History of hyperlipidemia History of anemia Expected: 11/03/2023, Expires: 10/27/2024 [facility] Comment on above: Expected: 11/03/2023, Expires: Start: 11-03-2023 End: 10-27-2024 Iron and TIBC Iron and TIBC Lab Routine History of sleeve gastrectomy 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 History of hyperlipidemia History of anemia Expected: 11/03/2023, Expires: 10/27/2024 [facility] Comment on above: Expected: 11/03/2023, Expires: Start: 11-03-2023 End: 10-27-2024 Lipid 1996 panel - Serum or Plasma Lipid profile Lab Routine History of sleeve gastrectomy 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 History of hyperlipidemia History of anemia Expected: 11/03/2023, Expires: 10/27/2024 [facility] Comment on above: Expected: 11/03/2023, Expires: Start: 11-03-2023 End: 10-27-2024 Liver panel Liver panel Lab Routine History of sleeve gastrectomy 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 History of hyperlipidemia History of anemia Expected: 11/03/2023, Expires: 10/27/2024 [facility] Comment on above: Expected: 11/03/2023, Expires: Start: 11-03-2023 End: 10-27-2024 Parathyroid Hormone, intact Parathyroid Hormone, intact Lab Routine History of sleeve gastrectomy 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 History of hyperlipidemia History of anemia Expected: 11/03/2023, Expires: 10/27/2024 [facility] Comment on above: Expected: 11/03/2023, Expires: Start: 11-03-2023 End: 10-27-2024 Thiamin Vitamin B1, whole blood Thiamin Vitamin B1, whole blood Lab Routine History of sleeve gastrectomy 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 History of hyperlipidemia History of anemia Expected: 11/03/2023, Expires: 10/27/2024 [facility] Comment on above: Expected: 11/03/2023, Expires: Start: 11-03-2023 End: 10-27-2024 Vitamin A (Retinol) Vitamin A (Retinol) Lab Routine History of sleeve gastrectomy 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 History of hyperlipidemia History of anemia Expected: 11/03/2023, Expires: 10/27/2024 [facility] Comment on above: Expected: 11/03/2023, Expires: Start: 11-03-2023 End: 10-27-2024 Vitamin D 25 hydroxy Vitamin D 25 hydroxy Lab Routine History of sleeve gastrectomy 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 History of hyperlipidemia History of anemia Expected: 11/03/2023, Expires: 10/27/2024 [facility] Comment on above: Expected: 11/03/2023, Expires: Start: 11-03-2023 End: 10-27-2024 Zinc Zinc Lab Routine History of sleeve gastrectomy 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 History of hyperlipidemia History of anemia Expected: 11/03/2023, Expires: 10/27/2024 [facility] Comment on above: Expected: 11/03/2023, Expires: 5 Start: 10-30-2023 End: 10-30-2023 Follow-up encounter 10/30/2023 1:15 PM EST Follow Up Anticoagulation [facility] Medication Therapy Management [address] [place] [address] [facility] Start: 10-19-2023 End: 10-19-2023 Patient encounter procedure 10/19/2023 2:00 PM EST Office Visit [facility] [address] [place] [phone] Jose G Betancur, DELIO [address] [place] [address] [address] [place] [address] [facility] Start: 10-06-2023 Screening for malignant neoplasm of colon [facility] Start: 09-28-2023 Advance Directive Discussion Advance Directive Discussion [facility] Start: 05-29-2023 COVID-19 Vaccine () COVID-19 Vaccine () [facility] Start: 05-29-2023 Covid-19 Vaccine () Covid-19 Vaccine () [facility] Start: 11-08-2020 Screening for malignant neoplasm of breast Mammogram [facility] Start: 10-28-2020 Screening for malignant neoplasm of breast Mammogram [facility] Start: 08-05-2020 Annual Wellness Visit (AWV) Annual Wellness Visit (AWV) [place] Start: 05-29-2020 Influenza vaccination Flu vaccine (#1) [place] Start: 01-11-2020 Creatinine measurement Creatinine monitoring [place], [place] Start: 01-11-2020 Potassium monitoring Potassium monitoring [place] Start: 2019 Fall Risk Screening Fall Risk Screening [facility] Start: 2019 Pneumococcal 65+ years Vaccine (2 of 2 - PPSV23) Pneumococcal 65+ years Vaccine (2 of 2 - PPSV23) [place] Start: 2019 Screening for osteoporosis Bone Density Screening [facility] Start: 04-05-2019 Medicare Annual Wellness Visit Medicare Annual Wellness Visit [facility] Start: 2009 Screening for osteoporosis DEXA (modify frequency per FRAX score) [place] Start: 2004 Administration of varicella zoster vaccine Zoster (Shingles) Vaccine (1 of 2) [facility] Start: 2004 Screening for malignant neoplasm of breast Breast cancer screen [place] Start: 2004 Screening for malignant neoplasm of colon Colon cancer screen colonoscopy [place] Start: 2004 Shingles Vaccine (1 of 2) Shingles Vaccine (1 of 2) [place] Start: 1999 Screening for malignant neoplasm of colon [facility] Start: 1994 Lipid panel Lipid screen [place] Start: 1975 Screening for malignant neoplasm of cervix Cervical cancer screen [place] Start: 1973 DTaP,Tdap and Td Vaccines (1 - Tdap) DTaP,Tdap and Td Vaccines (1 - Tdap) [facility] Start: 1973 DTaP/Tdap/Td vaccine (1 - Tdap) DTaP/Tdap/Td vaccine (1 - Tdap) [place] Start: 1973 Urine microalbumin profile DTaP,Tdap,Td Vaccine (1 - Tdap) [facility] Start: 1972 Adult BMI Follow Up Plan Adult BMI Follow Up Plan [facility] Start: 1972 Annual PCP Team Chronic Disease Visit Annual PCP Team Chronic Disease Visit [facility] Start: 1972 Spirometry Spirometry [facility] Start: 1969 HIV screening HIV screen [place], [place] Start: 1954 Hepatitis C screening Hepatitis C screen [place] Start: 1954 Screening for malignant neoplasm of colon [facility] End: 08-03-2020 COVID-19 COVID-19 Lab Routine One Time for 1 Occurrences starting 08/03/2020 until 08/03/2020 [place] Comment on above: One Time for 1 Occurrences starting 02/2020 until 08/03/2020 End: 03-23-2025 EMG(NEURO/NI) EMG(NEURO/NI) EMG Routine Ataxia 1 Occurrences starting 03/23/2024 until 03/23/2025 [facility] Comment on above: 1 Occurrences starting 03/23/2024 until 03/23/2025 End: 04-22-2025 MR Brain WO and W contrast IV MRI 7T BRAIN WO/W IVCON Radiology Routine Demyelinating disease of central nervous system (HCC) 1 Occurrences starting 03/23/2024 until 04/22/2025 [facility] Work Phone: Comment on above: 1 Occurrences starting 03/23/2024 until 04/22/2025 Immunizations Immunization Date Immunization Notes Care Provider Shasha hines 03-17-2024 RSV, bivalent, prote in subunit RSVpreF, diluent reconstituted, 0.5 mL, PF [facility] 03-17-[address] [facility] 03-17-2024 zoster vaccine, unspecified formulation [facility] 07-01-2023 Influenza, High-dose Seasonal, Quadrivalent, Preservative Free Loreta Mcmillan NP Work Phone: [facility] 07-01-2023 influenza virus vacc ine, unspecified formulation Mri (7t) Work Phone: [facility] 07-14-2022 Influenza Vaccine, Quadrivalent, Adjuvanted [facility] 1 [facility] Work Phone: 08-14-2021 Influenza, High-dose , Quadrivalent [facility] 1 [facility] Work Phone: 08-14-2021 pneumococcal polysaccharide vaccine, 23 valent [facility] 1 [facility] 12-28-2020 COVID-19, mRNA, LNP- S, PF, 100mcg/0.5mL Dose [facility] 1 [facility] 11-30-2020 COVID-19, mRNA, LNP- S, PF, 100mcg/0.5mL Dose [facility] 1 [facility] 10-10-2020 SARS-COV-2 (COVID-19 ) Vaccine, Unspecified [facility] 1 [facility] 09-15-2019 Influenza, injectabl e, [place]in [place] Canine Kidney, preservative free, quadrivalent [facility] 1 [facility] 09-28-2018 influenza virus vacc ine, unspecified formulation [facility] 1 [facility] 08-10-2017 influenza, high dose seasonal, preservative-free [facility] 1 [facility] 08-10-2017 pneumococcal conjuga te vaccine, 13 valent [facility] 1 [facility] 07-09-2015 influenza virus vacc ine, unspecified formulation [facility] 1 [facility] 07-09-2015 influenza, seasonal, injectable [facility] 1 [facility] Payers Date Payer Category Payer Managed Care HMO (unspecified) [employer] [id number] 2021-Present [address] [place] [address] O [id number] 2021 Medicare [id number]. [id number] 2021 Medicare HMO [employer] MEDICARE [id number]. [id number] 2021 Medicare [id number] 2.16.840.1.190474.19 2017 Private Health Insurance [id number] [id number] 1955 Unknown [id number] 2.16.840.1.431337.3.579.2. 647 1954 Unknown [id number] 2.16.840.1.818382.3.579.2. 647 1954 Unknown [id number] 2.16.840.1.535995.3.579.2. 647 1954 Unknown [id number] 2.16.840.1.526806.3.579.2. 647 1954 Unknown [id number] 2.16.840.1.019247.3.579.2. 647 1954 Unknown [id number] 2.16.840.1.742510.3.579.2. 175 1954 Unknown [id number] 2.16.840.1.433213.3.579.2. 177 1954 Unknown [id number] 2.16.840.1.617872.3.579.2. 1286 1954 Unknown [id number] 2.16.840.1.349280.3.579.2. 1259 1954 Unknown [id number] 2.16.840.1.342638.3.579.2. 1259 1954 Unknown [id number] 2.16.840.1.074922.3.579.2. 1259 1954 Unknown [id number] 2.16.840.1.234047.3.579.2. 1259 1954 Unknown [id number] 2.16.840.1.060194.3.579.2. 9 1954 Unknown [id number] 2.16.840.1.685099.3.579.2. 1258 1954 Unknown [id number] 2.16.840.1.136054.3.579.2. 1258 1954 Unknown [id number] 2.16.840.1.005770.3.579.2. 125 1954 Unknown [id number] 2.16.840.1.754213.3.579.2. 1258 1954 Unknown [id number] 2.16.840.1.054523.3.579.2. 1258 1954 Unknown [id number] 2.16.840.1.535075.3.579.2. 1258 1954 Unknown [id number] 2.16.840.1.823239.3.579.2. 1258 1954 Unknown [id number] 2.16.840.1.949501.3.579.2. 1258 1954 Unknown [id number] 2.16.840.1.943081.3.579.2. 1285 1954 Unknown [id number] 2.16.840.1.024663.3.579.2. 1285 1954 Unknown [id number] 2.16.840.1.137402.3.579.2. 1285 1954 Unknown [id number] 2.16.840.1.659527.3.579.2. 1285 1954 Unknown [id number] 2.16.840.1.457830.3.579.2. 1285 1954 Unknown [id number] 2.16.840.1.977394.3.579.2. 128 1954 Unknown [id number] 2.16.840.1.814432.3.579.2. 1286 1954 Unknown [id number] 2.16.840.1.913312.3.579.2. 1285 1954 Unknown [id number] 2.16.840.1.050738.3.579.2. 1285 1954 Unknown [id number] 2.16.840.1.140163.3.579.2. 1285 1954 Unknown [id number] 2.16.840.1.867290.3.579.2. 1285 1954 Unknown [id number] 2.16.840.1.000692.3.579.2. 1285 1954 Unknown [id number] 2.16.840.1.075290.3.579.2. 1285 1954 Unknown [id number] 2.840.1.697753.3.579.2. 1285 1954 Unknown [id number] 2.16.840.1.056039.3.579.2. 1285 1954 Unknown [id number] 2.16.840.1.785276.3.579.2. 1285 1954 Unknown [id number] 2.16.840.1.262225.3.579.2. 1285 1954 Unknown [id number] 2.16.840.1.859312.3.579.2. 1285 1954 Unknown [id number] 2.16.840.1.030512.3.579.2. 1285 1954 Unknown [id number] 2.16.840.1.323838.3.579.2. 1285 1954 Unknown [id number] 2.16.840.1.528092.3.579.2. 1285 1954 Unknown [id number] 2.16.840.1.154900.3.579.2. 1285 1954 Unknown [id number] 2.16.840.1.440915.3.579.2. 1285 1954 Unknown [id number] 2.16.840.1.488073.3.579.2. 1285 1954 Unknown [id number] 2.16.840.1.775511.3.579.2. 1285 1954 Unknown [id number] 2.16.840.1.319842.3.579.2. 1285 1954 Unknown [id number] 2.16.840.1.440658.3.579.2. 1285 1954 Unknown [id number] 2.16.840.1.621151.3.579.2. 1285 1954 Unknown [id number] 2.16.840.1.495620.3.579.2. 1285 1954 Unknown [id number] 2.16.840.1.907443.3.579.2. 1285 1954 Unknown [id number] 2.16.840.1.076814.3.579.2. 1285 1954 Unknown [id number] 2.16.840.1.383442.3.579.2. 1285 1954 Unknown [id number] 2.16.840.1.542519.3.579.2. 1285 1954 Unknown [id number] 2.16.840.1.936040.3.579.2. 1285 1954 Unknown [id number] 2.16.840.1.542183.3.579.2. 1285 1954 Unknown [id number] 2.16.840.1.488868.3.579.2. 1285 1954 Unknown [id number] 2.16.840.1.394292.3.579.2. 1285 1954 Unknown [id number] 2.16.840.1.863324.3.579.2. 1285 1954 Unknown [id number] 2.16.840.1.112663.3.579.2. 1285 1954 Unknown [id number] 2.16.840.1.811252.3.579.2. 1285 1954 Unknown [id number] 2.16.840.1.962094.3.579.2. 1285 1954 Unknown [id number] 2.16.840.1.780828.3.579.2. 1285 1954 Unknown [id number] 2.840.1.362187.3.579.2. 1285 1954 Unknown [id number] 2.840.1.751685.3.579.2. 1285 1954 Unknown [id number] 2.16.840.1.897934.3.579.2. 1285 1954 Unknown [id number] 2.16.840.1.360084.3.579.2. 1285 1954 Unknown [id number] 2.16.840.1.085016.3.579.2. 1285 1954 Unknown [id number] 2.16840.1.422536.3.579.2. 1285 1954 Unknown [id number] 2.16.840.1.791461.3.579.2. 1285 1954 Unknown [id number] 2.16.840.1.464674.3.579.2. 1285 1954 Unknown [id number] 2.16.840.1.596153.3.579.2. 1285 1954 Unknown [id number] 2.16.840.1.911309.3.579.2. 1285 1954 Unknown [id number] 2.16.840.1.372022.3.579.2. 1286 1954 Unknown [id number] 2.16.840.1.197555.3.579.2. 1286 Unknown Social History Date Type Detail Facility Start: 08-07-2020 End: 10-05-2022 Tobacco smoking status UTIS Never smoker [facility] Start: 08-07-2020 End: 10-05-2022 Tobacco use and exposure Never used [place] Start: 08-07-2020 End: 07-25-2024 Alcohol intake Current drinker of alcohol (finding) [place] Start: 03-27-2014 Alcohol Comment social [place] Start: 1955 Sex Assigned At Not on file [place] Exposure to SARS-CoV -2 (event) Not sure [place] Start: 08-09-2023 End: 06-22-2024 Sex Assigned At [facility] Start: 08-09-2023 End: 08-11-2023 Alcohol intake [facility] Has the [employer], or [employer] threatened to shut off services in your home in past 12Mo No [facility] Are you now , , , , never or living with a partner? [facility] How often to you hav e a drink containing alcohol? Monthly or less [facility] How many standard drinks containing alcohol do you have on a typical day? 1 or 2 [facility] How often do you hav e 6 or more drinks on 1 occasion? Never [facility] How hard is it for y ou to pay for the very basics like food, housing, medical care, and heating Not hard at all [facility] Do you feel stress - tense, restless, nervous, or anxious, or unable to sleep at night because your mind is troubled all the time - these days [OSQ] Not at all [facility] Start: 03-17-2019 Alcohol Comment occasionally [facility] Start: 10-28-2023 Tobacco smoking status NHIS Ex-smoker [facility] History of tobacco use Current smoker [facility] History of tobacco use Cigarette Smoker [facility] Start: 06-17-2023 Tobacco Comment Patient states she was a chain smoker for 4 months decades ago [facility] Start: 1955 Sex Assigned At Female [facility] Start: 06-22-2023 Gender identity Identifies as female gender (finding) [facility] Start: 06-22-2023 Sexual orientation Heterosexual (finding) [facility] How often to you hav e a drink containing alcohol? 2-4 times a month [facility] Start: 05-01-2015 Sex Female (finding) [facility] Medical Equipment Procedure Code Equipment Code Equipment Origin al Text Equipment Identifier Dates Plate Bn 301mm C rv 14 Hl Va Lcp Cmbn Cndrl Lt Ss 4.5mm Scr - [id number] Start: 06-03-2024 Screw Bn 38mm [address]m m [address] Va Lck Strdr Ss T25 Ns - [id number] Start: 06-03-2024 Screw Bn 42mm [address]m m [address] Lck Va Strdr Ss T25 Ns Crv Cndrl Plt - [id number] Start: 06-03-2024 Screw Bn 46mm [address]m [address] Lck Va Strdr Ss T25 Ns Crv Cndrl Plt - [id number] Start: 06-03-2024 Screw Bn 75mm [address]m m [address] Va Lck Strdr - [id number] Start: 06-03-2024 Screw Bn 80mm [address]m m [address] Lck Va Strdr Ss T25 Ns Crv Cndrl Plt Sy - [id number] Start: 06-03-2024 Screw Bn 85mm [address]m [address] Lck Va Strdr Ss T25 Ns - [id number] Start: 06-03-2024 Screw Bn 38mm 4. [address] Lg Hex Sckt Nitish Ss 3.5mm Ns Lg - [id number] Start: 06-03-2024 Goals Date Patient Goal [...] rehab Clinical Notes 05-27-2023 to 07-20-2024 Rafat Sepulveda MD - 07/20/2024 2:00 PM EDTPatient InstructionsTelephone [...] able. Patient to continue pain management with axfp-rbz-taqextf Tylenol as needed. Patient permitted to utilize [...] MD Post-Op [employer] documented in this encounter 20/20 [employer] 07-20-2024 Instructions Windy Marte PA-C - 07/20/2024 [...] Caltrate 600+D3 [OTC]; Caltrate Gummy Bites [OTC]; Sevier Calcium +D [OTC] [DSC]; Liquid Calcium with [...] or approved for treating a specific patient. [employer] and its affiliates disclaim any warranty or liability relating to this information or the use thereof. The use of this information is governed by the Terms of Use, available at https://www.woltersLoveThatFituwer.com/en/know/ pxxdqvlh-imufyqmaywnvm-vhqpj. Last Reviewed Date 2021-02-20 Copyright 2021 [employer] and its affiliates and/or licensors. All rights reserved. documented in this encounter 20/20 [employer] 07-06-2024 Miscellaneous Notes Patient called in stated [...] Patient would like a call back at [phone] The patient may use her lymphedema pump on her surgical leg. She is cautioned that if she has increased discomfort because of the pressure from the pump she should discontinue use on that leg. Will see the patient back at her scheduled postoperative appointment. documented in this encounter 20/20 [employer] 07-06-2024 Telephone encounter Note Patient called in [...] Patient would like a call back at [phone] 20/20 [employer] 07-06-2024 Telephone encounter Note The patient may use her lymphedema pump on her surgical leg. She is cautioned that if she has increased discomfort because of the pressure from the pump she should discontinue use on that leg. Will see the patient back at her scheduled postoperative appointment. 20/20 [employer] Work Phone: 05-04-2024 Note HNO ID: [id number] Author: AYAD WILKERSON MD Service: ? Author [...] Care Visit completed when applicable. Nu [employer] carbide powder processormarleni Wilkerson MD [facility] 05-04-2024 History of Present illness Narrative UNIVERSAL [...] Care Visit completed when applicable. [employer] carbide powder processormarleni Wilkerson MD documented in this encounter [facility] 05-02-2024 History of Present illness Narrative [...] PATIENT PRESENTS WITH AN IMPLANTABLE OR ATTACHED MACHINE TESTER: No ALLERGIES: Reviewed and unchanged CONTRAST ALLERGY: NO. EXAM: MRI - CONTRAST TYPE: GROUP II PERIPHERAL IV DATA: Ambulatory: A peripheral IV was started in the Right antecubital site with a Butterfly: 23 gauge. RADIOLOGY DEPARTMENT: MR; Exam(s) Completed: Head: Multiple Sclerosis Central Vein Sign SIGNATURE: GIDEON Howe) PATIENT NAME: Keila Garcia DATE: May 02, 2024 TIME: 1:32 PM documented in this encounter [facility] 05-02-2024 Note HNO ID: [id number] Author: NATE LONDONO RT(R) Service: Radiology Author [...] PATIENT PRESENTS WITH AN IMPLANTABLE OR ATTACHED MACHINE TESTER: No ALLERGIES: Reviewed and unchanged CONTRAST ALLERGY: NO. EXAM: MRI - CONTRAST TYPE: GROUP II PERIPHERAL IV DATA: Ambulatory: A peripheral IV was started in the Right antecubital site with a Butterfly: 23 gauge. RADIOLOGY DEPARTMENT: MR; Exam(s) Completed: Head: Multiple Sclerosis Central Vein Sign SIGNATURE: RT Carley(R) PATIENT NAME: Keila Garcia DATE: May 02, 2024 TIME: 1:32 PM [facility] 03-23-2024 Instructions Bib Alva MD - 03/23/2024 3:35 PM EDT Schedule an MRI of the brain at the [facility]. Schedule an EMG/NCS. [facility]. Follow up with Dr. Alva in several months after the MRI and EMG/NCS are complete. documented in this encounter [facility] 03-23-2024 History of Present illness Narrative Images from the original note were not included. [facility] NEW PATIENT EVALUATION/CONSULTATION Referral source: Loreta Mcmillan, [place] [id number] Also followed by: Patient Care Team: Javan [...] expected to be with me at the [facility]. PRESENTING HISTORY: 06/02/[address] [address] [...] of the brain, particularly changes in the 3434-6043 interval, reportedly raised suspicion for MS. One [...] get a gastric sleeve surgery done in [place]. No LP was performed because she is [...] gabapentin, magnesium, metoprolol succinate er, omega-3/dha/epa/fish oil, vo575-fqcu-dxknm acid, vit c,z-wo-jepmi-lutein-zeaxan, rosuvastatin, solifenacin, topiramate, warfarin, and warfarin. Social [...] the arms and legs was performed including wvnvv-qj-yzomu, rapid-alternating, and fine movements. Rapid movements were smooth with good divya and there was no dysmetria or ataxia. HKS limited by pyramidal weakness. Sensory examination: Light touch: Normal all four extremities. Standard gait was ataxic with bilateral hip flexion weakness. REVIEW OF RECORDS: 05/12/2018 MR Brain W/O IVCON (3D FUTURE VISION IIa): Findings: There is no significant difference compared [...] vessel disease. 05/25/2018 MR C-spine W/O IVCON ([facility]): No white matter cord lesion is seen [...] risk factors who initially presented to the [facility] in May 2018 for further evaluation of [...] SPINE WO/W IVCON *Canceled* CONSULT TO [facility] EMG(NEURO/NI) The chart was reviewed for possible participation in the following studies: NA I spent a total of 60 minutes on the date of the service which included preparing to see the patient, kjpb-bw-kslr patient care, completing clinical documentation, obtaining and/or reviewing separately obtained history, performing a medically appropriate examination, counseling and educating the patient/family/caregiver, ordering medications, tests, or procedures, independently interpreting results (not separately reported), and communicating results to the patient/family/caregiver. Bib Alva MD [facility] for Multiple Sclerosis documented in this encounter [facility] 03-23-2024 Note HNO ID: [id number] Author: BIB ALVA MD Service: ? Author Type: Physician Type: Progress Notes Filed: 03/23/2024 15:56 Note Text: [facility] NEW PATIENT EVALUATION/CONSULTATION Referral source: Loreta Mcmillan, [facility] [address] [place] [address] Also followed by: Patient Care Team: Javan [...] expected to be with me at the [facility]. PRESENTING HISTORY: 06/02/[address] [place] [address] Capellan: Approximately 20 years [...] of the brain, particularly changes in the 9073-8346 interval, reportedly raised suspicion for MS. One [...] get a gastric sleeve surgery done in [place]. No LP was performed because she is [...] gabapentin, magnesium, metoprolol succinate er, omega-3/dha/epa/fish oil, iy039-gaax-vmpcs acid, vit c,b-rv-hpsmv-lutein-zeaxan, rosuvastatin, solifenacin, topiramate, warfarin, and warfarin. Social [...] was normal. M (more content not included)... [facility] 12-18-2023 History of Present illness Narrative Keila [...] min Stress: No Stress Concern Present (08/09/2023) [employer] [place] [employer] - Occupational Stress Questionnaire Feeling of Stress : Not at all Social Connections: Moderately Isolated (08/09/2023) Social Connection and Isolation Panel [NHANES] Frequency of Communication with Friends and Family: More than three times a week Frequency of Social Gatherings with Friends and Family: More than three times a week Attends Yazidism Services: More than 4 times per year [...] accurate and complete. documented in this encounter [facility] 12-18-2023 History of Present illness Narrative Summary: 5 years s/p sleeve gastrectomy, Dr. Gil Images from the original note were not included. [facility] GENERAL SURGERY-[facility] [address] [place] [phone] Subjective Patient ID: Keila Garcia is a [...] diet. She will reach out for a sales assistant visit if she feels she needs help with this. No abdominal pain. + heartburn, mild, occurs about every other day. She continues on Protonix daily and takes TUMS PRN. No nausea or emesis. No constipation. No diarrhea. No dysphagia. For exercise, she started [employer] aerobics at the [facility]. She drinks EtOH occasionally, once/month, at [...] Weight and Comorbid Conditions: 1. Morbid Obesity [place] body weight: 155 lb BMI 49.67 Personal [...] asleep 3. 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 GERD: Continues to take Protonix; has [...] hemorrhage Added automatically from request for surgery [id number] GERD (gastroesophageal reflux disease) Giant cell arteritis ([facility]) Hyperlipidemia Hypertension Low back pain Lumbar disc disorder LVH (left ventricular hypertrophy) AND DIASTOLIC DYSFUNCTION Lymphedema Macular drusen, bilateral Migraine Mononucleosis Neuropathy Obesity h/o bariatric surgery 01/2018, lost >100# Osteoarthritis of cervical spine Posterior vitreous detachment of right eye Presbyopia Prolonged Q-T interval on ECG 12/2018 Rotator cuff arthropathy of right shoulder Added automatically from request for surgery [id number] Sleep apnea uses c pap/states doesn`t use [...] developed and its performance characteristics determined by [facility]'s Ludwin Santos [facility] Pathology and Laboratory Medicine [place] ([facility] It has not been cleared or approved by the FDA. [facility] is regulated under CLIA as qualified to perform high-complexity testing. This test is used for clinical purposes. It should not be regarded as investigational or for research. Test Performed By: [facility] [address] [place] [address] Window Unit Air Conditioning Mechanic: Maxime Weston III, M.D. [facility] #[id number]^ Vitals and Bariatric Vitals: Vitals: 12/18/23 1100 [...] make dietary changes on own and schedule sales assistant video visit in 2-3 months PRN. Continue [...] procedures Referring and communicating with other health lawn care specialist (not separately reported) Documenting clinical information in the electronic or other health record Independently interpreting results (not separately reported) and communicating results to the patient/family/caregiver Nuria Braden PA-C 12/18/23 1250 [facility] 12-18-2023 Instructions Nuria Braden PA-C - 12/18/2023 [...] week and 2 days strength training Schedule sales assistant video visit if you notice more weight regain Continue PNV or MVT, calcium and vitamin B12 for life Follow up labs in 1 year, obtain 1 wk prior to scheduled appointment Follow up in 1 year for annual visit documented [facility] this encounter [facility] 12-10-2023 History of Present illness Narrative 15 minute hgrr-ml-wrlv follow-up anticoagulation appointment. INR performed in office [...] RPH 12/10/23 1205 documented in this encounter 20/20 [employer] 11-17-2023 Note Keila is a pleasant 68 year old female previously evaluated for orthostatic intolerance (OI) consistent with postural orthostatic tachycardia syndrome (POTS) and paroxysmal atrial fibrillation and hypertension at our [facility] in the [facility] at the [facility]. July 2023. Chest pain. EMS to [facility]. 3-4 days hospitalization. Cardiac enzymes negative. Evaluation [...] person, place and time. Lab Review: [facility]UPINDER [facility] 2022: Interpretation Summary A Tilt Table test was performed on 07/29/23 at [facility] METHOD: The test was explained to [...] No syncope. Ra (more content not included)... [facility] 11-12-2023 History of Present illness Narrative 15 minute hmlq-ip-hqab follow-up anticoagulation appointment. INR performed in office [...] RPH 11/12/23 1158 documented in this encounter 20/20 [employer] 11-11-2023 Telephone encounter Note Patient has a 40.00 copay with unlimited visits Ok to schedule with Jacquie Brooks [facility] 11-11-2023 Miscellaneous Notes Patient has a 40.00 copay with unlimited visits Ok to schedule with Jacquie Brooks documented in this encounter [facility] 11-04-2023 Miscellaneous Notes The patient was a no show today. Boss Miner GEOFFREY requesting patient call back to schedule another appointment. documented in this encounter [facility] 11-04-2023 Telephone encounter Note The patient was a no show today. Boss Miner GEOFFREY requesting patient call back to schedule another appointment. [facility] 10-28-2023 History of Present illness Narrative Images [...] had colonoscopy approx 2 years ago, in [place] on [place]-thinks she had polyps. Sees [facility] for INR. Last INR approx 5-6 weeks, thinks it was 2.2 then, has appt this Thursday. Had covid Aug 16 and since then more tired. Moved here from [place] in early April, friend neighbor brobruno hip, helped her, so not unpacked yet. 2020, 1.5 years ago lost his seeing eye dog. Used to see someone in [place] for mental health meds and counseling, not [...] states she plans to go to the [facility] for water aerobic class Review of [...] lemonade, , lemonade, canberry, tomoato, mashed pot, eritrean fries, pot cook Mac and cheese, spagetti, [...] to find it. Could see Clinic in [place]-she will let me know Degeneration of cervical intervertebral disc Comments: Hx of Neurogenic claudication Comments: Hx of Bilateral shoulder pain, unspecified chronicity Comments: Hx of Congenital spondylolisthesis Comments: Hx of Disc disorder Comments: Hx of Idiopathic scoliosis and kyphoscoliosis Comments: Has [facility] and one at [facility], Could do surgery-pt prefers to hold off [...] 06/20. Pt states she had Dexa in [place] approx 2 years ago-thinks she had osteopenia. 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 10-27-2023 History of Present illness Narrative Annual lab orders entered. Patient has annual appointment scheduled 11/17/23 with Marci. documented in this encounter [facility] 10-21-2023 Miscellaneous Notes Attempted to call patient to schedule follow-up appointment. Needed to leave a message on importance of follow-up care Second attempt made to encourage follow up care via [employer] documented in this encounter [facility] 10-21-2023 Telephone encounter Note Attempted to call patient to schedule follow-up appointment. Needed to leave a message on importance of follow-up care [facility] 10-21-2023 Telephone encounter Note Second attempt made to encourage follow up care via [employer] [facility] 10-19-2023 History of Present illness Narrative Keila [...] min Stress: No Stress Concern Present (08/09/2023) [place] [employer] - Occupational Stress Questionnaire Feeling of Stress : Not at all Social Connections: Moderately Isolated (08/09/2023) Social Connection and Isolation Panel [NHANES] Frequency of Communication with Friends and Family: More than three times a week Frequency of Social Gatherings with Friends and Family: More than three times a week Attends Yazidism Services: More than 4 times per year [...] Normal Normal Refraction Wearing Rx Sphere Cylinder [place] Add Right +0.75 -0.50 060 +2.50 Left +0.75 -0.75 135 +2.50 Last Rx, only +2.50 OTC readers Manifest Refraction (Auto) Sphere Cylinder [place] Dist [place] Add Right +2.00 -0.75 062 Left +2.50 -1.50 100 Manifest Refraction #2 Sphere Cylinder [place] Dist [place] Add Right +1.75 -0.75 075 20/25 +2.50 Left +2.25 -1.50 100 20/50 +2.50 Manifest Refraction Comments M2 Dr. Betancur performed today Final Rx Sphere Cylinder [place] Dist [place] Add Right +1.75 -0.75 075 [...] Dr. Cleary Physician: JOSE G BETANCUR OD Orthodontic Laboratory Technician: ELISABET CARTER Scribed for and in the presence of JOSE G BETANCUR OD by ELISABET CARTER I, JOSE G BETANCUR OD personally performed the services described in the documentation, as scribed by ELISABET CARTER in my presence, and it is both accurate and complete. Patient accompanied by self. documented [facility] 10-02-2023 History of Present illness Narrative 15 minute vvyq-lk-xowv follow-up anticoagulation appointment. INR performed in office [...] RPH 10/02/23 0949 documented in this encounter [facility] 07-23-2023 Evaluation note Encounter Date Diagnosis Assessment Notes Jun, Recurrent UTI (ICD-10 - N39.0) Preventative modalities with Vit C and daily use of theraworx urinary wipes to continue. She will make appt for 6 monts but follow up with me sooner is concerns arise. 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 Other and unspecified postsurgical nonabsorption History of hyperlipidemia History of anemia Personal history of diseases of blood and blood-forming organs documented in this encounter [employer] [facility] note* Diagnosis First degree AV block- [...] Recurrent major depression in partial remission (HCC) ([facility]) Major depressive disorder, recurrent episode, in [...] kidney disease, or unspecified chronic kidney disease ([facility]) Gastroesophageal reflux disease, unspecified whether esophagitis present Decreased hearing, unspecified laterality Encounter to establish care Diarrhea, unspecified type Visual impairment Unspecified visual loss Vitreous floaters of right eye correction current use of 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 Gait disorder Abnormality of gait [facility] Diagnosis 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 use of 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- Primary [facility] Diagnosis History of sleeve gastrectomy- Primary 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 Other and unspecified postsurgical nonabsorption [facility] Diagnosis Vitreous floaters of both eyes- Primary Posterior vitreous detachment of both eyes Vitreous degeneration Dry eyes, bilateral Nuclear sclerotic cataract of both eyes Senile nuclear sclerosis Macular drusen, bilateral [facility] Diagnosis Demyelinating disease of central nervous system (HCC)- Primary Demyelinating disease of central nervous system, unspecified Cervical spondylosis with myelopathy Ataxia Lack of coordination [facility]* Diagnosis Demyelinating disease of central nervous system (HCC) Demyelinating disease of central nervous system, unspecified [facility] Diagnosis Radiculopathy, lumbosacral region- Primary Thoracic or lumbosacral neuritis or radiculitis, unspecified 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 documented [facility]* Diagnosis Ataxia Lack of coordination Radiculopathy, lumbosacral region- Primary Thoracic or lumbosacral neuritis or radiculitis, unspecified 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 documented [facility]* Diagnosis Idiopathic progressive polyneuropathy- Primary [facility]* Diagnosis Closed displaced supracondylar fracture of distal end of left femur without intracondylar extension with routine healing, subsequent encounter- Primary [facility] N[facility] - Reported* Type Description [...] History total left knee replacem ent 04/11 [employer] Other InstructionsNot on filedocumented in this encounter [facility] System[facility]ructionsNot on filedocumented in this encounter [facility]ructionsNot on filedocumented in this encounter [facility] SystemInstructionsNot on filedocumented in this encounter [facility]* Attachments The following attachments cannot be sent through Care Everywhere. * How to Care for Your Eyes (Latvian) documented in this [facility] System[facility]ructionsNot on file documented in this encounterProBluffton HospitalReason for referral (narrative)* Consultation (Routine) - Pending Review Specialty Diagnoses / Procedures Referred By Dilip rodrigez Referred To Contact Nutrition Diagnoses History of sleeve gastrectomy 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 Nuria Braden PA-C [address] [place] [id number] Referral ID Status Reason Start Date Expiration Date Visits Requested Visits Authorized [id number] Pending Review Specialty Services Required 12/18/2023 12/17/2024 1 1 [facility] Outpatient Procedure (Routine) - Pending Review Specialty Diagnoses / Procedures Referred By Dilip rodrigez Referred To Contact [facility] Diagnoses Ataxia Procedures [facility](NEURO/NI) NERVE CONDUCTION STUDIES 9-10 STUDIES Bib Alva MD [address] [address] Neurological [place] [facility] [place] [address] Referral ID Status Reason Start Date Expiration Date Visits Requested Visits Authorized [id number] Pending Review Auto-Generat ed Referral 03/23/2024 03/23/2025 1 1 * Consult, Test, Treat (Routine) - Authorized Specialty Diagnoses / Procedures Referred By Dilip t Referred To Contact [facility] [place] Diagnoses Cervical spondylosis with myelopathy Procedures [facility]/OUTPATIENT [facility] 60 MINUTES Bib Alva MD [address] [place] [address] Referral ID Status Reason Start Date Expiration Date Visits Requested Visits Authorized [id number] Authorized PCP Requested Referral 03/23/2024 03/23/2025 1 1 [facility] Summary Purpose Family History No Family History Records FoundNo Family History Records FoundNo Family History Records FoundNo Family History Records FoundNo Family History Records FoundNo Family History Records FoundNo Family History Records FoundNo Family History Records FoundNo Family History Records Found Advance Directives Documents on File Type Date Recorded Patient Coater Helper Expl anation ACP-Advance Directive ACP-Power of Osd Clerk Documents on File Type Date Recorded Patient Coater Helper Expl anation ACP-Advance Directive ACP-Power of Osd Clerk Latest Code Status on File Code Status [...] * Instructions* Jany Santizo, DO - 08/07/[address] [facility] POST-ENDOSCOPY INSTRUCTIONS: 1. ACTIVITY No driving, operating [...] PLEASE call your doctor @ or the [facility] GI Unit [phone] documented in this encounter History of Present [...] progressive polyneuropathy Procedures CONSULT TO NEUROLOGY OFFICE/OUTPATIENT [facility] 60 MINUTES Bib Alva MD [address] [place] [address] Referral ID Status Reason Start Date Expiration Date Visits Requested Visits Authorized [id number] Authorized PCP Requested Referral 05/12/2024 05/12/2025 1 1 Additional Source Comments INFORMATION SOURCE (unrecogn ized section and content) DATE CREATED AUTHOR 01/04/2019 [facility] DATE CREATED AUTHOR AUTHOR'S ORGANIZ ATION 08/07/2020 [facility] DATE CREATED AUTHOR AUTHOR'S ORGANIZ ATION 08/08/2020 [facility] DATE CREATED AUTHOR AUTHOR'S ORGANIZ ATION 12/20/2023 [facility] DATE CREATED AUTHOR AUTHOR'S ORGANIZ ATION 05/07/2024 [facility] DATE CREATED AUTHOR AUTHOR'S ORGANIZ ATION 05/23/2024 [facility] DATE CREATED AUTHOR AUTHOR'S ORGANIZ ATION 05/27/2024 [facility] DATE CREATED AUTHOR AUTHOR'S ORGANIZ ATION 06/04/2024 [facility] DATE CREATED AUTHOR AUTHOR'S ORGANIZ ATION 07/22/2024 [facility] Reason for Visit (unrecogniz ed section and content) Status Reason Specialty Diagnoses / Procedures Referre d By Contact Referred To Contact Diagnoses Encounter for screening colonoscopy SCREENING Procedures AK COLONOSCOPY FLX DX W/COLLJ SPEC WHEN PFRMD COLORECTAL CANCER SCREENING, NOT HIGH RISK Jany Santizo, [address] [facility], [address] [place] [address] [facility] Reason Comments Eye Exam Reason Onset Date [...] 05/04/2024 Specialty Diagnoses / Procedures Referred By Diilp rodrigez Referred To Contact [facility] Diagnoses Ataxia Procedures EMG(NEURO/NI) NERVE CONDUCTION STUDIES 9-10 STUDIES Bib Alva MD [address] [address] [facility] [place] [facility] [place] [address] Referral ID Status Reason Start Date Expiration Date V isits Requested Visits Authorized [id number] Closed Auto-Generate d Referral 09/28/2023 09/27/2024 1 1 Specialty Diagnoses / Procedures Referred By Dilip rodrigez Referred To Contact Neurology / NEUROLOGY EMG Diagnoses NO SHOW DO NOT CANCEL r E LE Procedures EMG STANDARD Bib Alva MD [address] [facility] [address] [place] [address] [facility] [address] [address] Referral ID Status Reason Start Date Expiration Date Visits Re quested Visits Authorized [id number] Closed 04/19/2024 07/18/2024 1 1 Reason Comments Establish Care F/u 1 month with Murphy murillo Xr (needs OP appt)Dx: L distal femur fx. Follow-up Care Teams (unrecognized sec tion and content) Founder President And Ceo Relationship Specialty Start Date End Date Marie Wesley DO [address] [place] [address] PCP - General Family Medicine 08/09/23 Founder President And Ceo Relationship Specialty Start Date End Date Marie Wesley DO [address] [facility] [place] [address] PCP - General Family Medicine 08/09/23 Founder President And Ceo Relationship Specialty Start Date End Date Marie Wesley DO [address] [place] [address] PCP - General Family Medicine 08/09/23 Founder President And Ceo Relationship Specialty Start Date End Date Marie Wesley DO [address] [facility] [place] [address] PCP - General Family Medicine 08/09/23 Founder President And Ceo Relationship Specialty Start Date End Date Fidelina Guillen MD [address] [place] [address] PCP - General Family Medicine 10/28/23 Loreta Mcmillan NP [address] [place] [address] Nurse Practitioner Family Medicine 10/28/23 Founder President And Ceo Relationship Specialty Start Date End Date Fidelina Guillen MD [facility] [place] [address] PCP - General Family Medicine 10/28/23 Loreta Mcmillan NP [facility] [place] [address] Nurse Practitioner Family Medicine 10/28/23 Founder President And Ceo Relationship Specialty Start Date End Date Marie Wesley DO [facility] [place] [address] PCP - General Family Medicine 08/09/23 Founder President And Ceo Relationship Specialty Start Date End Date Fidelina Guillen MD [facility] [place] [address] PCP - General Family Medicine 11/30/23 Founder President And Ceo Relationship Specialty Start Date End Date Fidelina Guillen MD [facility] [place] [address] PCP - General Family Medicine 11/30/23 Founder President And Ceo Relationship Specialty Start Date End Date Fidelina Guillen MD [address] [place] [address] PCP - General Family Medicine 11/30/23 Founder President And Ceo Relationship Specialty Start Date End Date Javan Julien MD [facility] [place] [address] PCP - General Neurology 05/13/18 Loreta Mcmillan CNP [facility] [place] [address] Referring Family Medicine 02/05/24 Founder President And Ceo Relationship Specialty Start Date End Date Javan Julien MD [address] [place] [address] PCP - General Neurology 05/13/18 Loreta Mcmillan CNP [address] [place] [address] Referring Family Medicine 02/05/24 Founder President And Ceo Relationship Specialty Start Date End Date Javan Julien MD [address] [place] [address] PCP - General Neurology 05/13/18 Loreta Mcmillan CNP [address] [place] [address] Referring Family Medicine 02/05/24 Founder President And Ceo Relationship Specialty Start Date End Date Javan Julien MD [address] [place] [address] PCP - General Neurology 05/13/18 Loreta Mcmillan CNP [address] [place] [address] Referring Family Medicine 02/05/24 Founder President And Ceo Relationship Specialty Start Date End Date Javan Julien MD [address] [facility] [place] [address] PCP - General Neurology 05/13/18 Loreta Mcmillan CNP [address] [place] [address] Referring Family Medicine 02/05/24 Founder President And Ceo Relationship Specialty Start Date End Date Wonderly, Fidelina B, MD [address] [place] [address] PCP - General Family Medicine 11/30/23 Founder President And Ceo Relationship Specialty Start Date End Date Fidelina Guillen MD [address] [place] [address] PCP - General Family Medicine 11/30/23 Source Comments (unrecognize d section and content) In the event this informatio n is protected by the Federal Confidentiality of Alcohol and Drug Abuse Patient Records regulations: The Federal rules restrict any use of the information to criminally investigate or prosecute any alcohol or drug abuse patient.[facility] the event this information is protected by the Federal Confidentiality of Alcohol and Drug Abuse Patient Records regulations: The Federal rules restrict any use of the information to criminally investigate or prosecute any alcohol or drug abuse patient.[facility] the event this information is protected by the Federal Confidentiality of Alcohol and Drug Abuse Patient Records regulations: The Federal rules restrict any use of the information to criminally investigate or prosecute any alcohol or drug abuse patient.[facility] the event this information is protected by the Federal Confidentiality of Alcohol and Drug Abuse Patient Records regulations: The Federal rules restrict any use of the information to criminally investigate or prosecute any alcohol or drug abuse patient.[facility] the event this information is protected by the Federal Confidentiality of Alcohol and Drug Abuse Patient Records regulations: The Federal rules restrict any use of the information to criminally investigate or prosecute any alcohol or drug abuse patient.[facility] FOR RECORDS PERTAINING TO PATIENTS WHO [...] BE BASED ON THE PRIMARY CLINICAL RECORDS. [facility] [employer] [facility]. provides no warranty or guarantee of the accuracy or completeness of information in this document.
[2024-08-10 18:29] LABS: INR 1.94; Prothrombin Time 19.3 sec (9.0-11.6)
== END 2024-08-10 17:38 | disposition home or self-care (01) ==
LOC: LAB 17:37
PROVIDERS: PCP Family Medicine; Visit Provider Nurse Practitioner Adult Health
DX: I48.0 Paroxysmal atrial fibrillation (principal); Z79.01 Long term (current) use of anticoagulants
CPT/HCPCS: 36415; 85610

== ENCOUNTER 2025-04-28 15:16 | Outpatient (REF) | payer MEDICARE, MEDICAID, SELFPAY ==
[2025-04-28 16:14] LABS: INR 8.00; Prothrombin Time 89.6 sec (9.0-11.6)
== END 2025-04-28 15:17 | disposition home or self-care (01) ==
LOC: LAB 15:16
PROVIDERS: PCP Student in an Organized Health Care Education/Training Program; Visit Provider Student in an Organized Health Care Education/Training Program
DX: I48.19 Other persistent atrial fibrillation (principal)
CPT/HCPCS: 36415; 85610

== ENCOUNTER 2025-05-13 15:36 | Outpatient (REF) | payer MEDICARE, MEDICAID, SELFPAY ==
--- OUTSIDE RECORDS SUMMARY | 2025-05-13 15:42 | XMS_ITS | CCD ---
Author Organization [facility] Care Team Providers Care Dietician Name Role Phone MANJINDER, KHALED Admitting Unavailable [...] Care Unavailable OSOWIK, CHARLOTTE A Referring Unavailable DEMIGUEL, DANIEL H Attending Unavailable DEMIGUEL, DANIEL H Admitting Unavailable PHYSICIAN, DEFAULT Admitting Unavailable PHYSICIAN, DEFAULT Attending Unavailable OSOWIK, CHARLOTTE A Primary Care Unavailable Osowik, Charlotte A Primary Care Provider JANY SANTIZO Admitting Unavailable JANY SANTIZO Attending Unavailable OSOWIK, CHARLOTTE A Primary Care Unavailable OSOWIK, CHARLOTTE A Primary Care Unavailable Nate Peralta Unavailable Bryant Guillen MD Primary Care Provider Maryjane Deutsch NP Unavailable Javan Julien MD Primary Care Provider Maryjane Deutsch CNP Unavailable Bryant Guillen MD Primary Care Provider Bryant Guillen MD Primary Care Provider Bryant Guillen MD Primary Care Provider Marie Mann DO Primary Care Provider MARCI SOUZA Referring Unavailable WONDERLY, BRYANT B Primary Care Unavailable SERVICE, JOBST Referring Unavailable WONDERLY, BRYANT B Primary Care Unavailable SERVICE, JOBST Referring Unavailable WONDERLY, BRYANT B Primary Care Unavailable SERVICE, JOBST Referring Unavailable WONDERLY, BRYANT B Primary Care Unavailable SERVICE, JOBST Referring Unavailable WONDERLY, BRYANT B Primary Care Unavailable SERVICE, JOBST Referring Unavailable WONDERLY, BRYANT B Primary Care Unavailable SERVICE, JOBST Referring Unavailable WONDERLY, BRYANT B Primary Care Unavailable SERVICE, JOBST Referring Unavailable WONDERLY, BRYANT B Primary Care Unavailable SERVICE, JOBST Referring Unavailable WONDERLY, BRYANT B Primary Care Unavailable DANIEL CAMACHO Referring Unavailable WONDERLY, BRYANT B Primary Care Unavailable SERVICE, JOBST Referring Unavailable WONDERLY, BRYANT B Primary Care Unavailable SERVICE, JOBST Referring Unavailable WONDERLY, BRYANT B Primary Care Unavailable SERVICE, JOBST Referring Unavailable WONDERLY, BRYANT B Primary Care Unavailable SERVICE, JOBST Referring Unavailable WONDERLY, BRYANT B Primary Care Unavailable SERVICE, JOBST Referring Unavailable WONDERLY, BRYANT B Primary Care Unavailable SERVICE, JOBST Referring Unavailable WONDERLY, BRYANT B Primary Care Unavailable SERVICE, JOBST Referring Unavailable WONDERLY, BRYANT B Primary Care Unavailable SERVICE, JOBST Referring Unavailable WONDERLY, BRYANT B Primary Care Unavailable WONDERLY, BRYANT B Primary Care Unavailable BOUBACAR, RADHA Attending Unavailable HAMLIN, RADHA Referring Unavailable WONDERLY, BRYANT B Primary Care Unavailable SERVICE, JOBST Referring Unavailable WONDERLY, BRYANT B Primary Care Unavailable SERVICE, JOBST Referring Unavailable WONDERLY, BRYANT B Primary Care Unavailable SERVICE, JOBST Referring Unavailable WONDERLY, BRYANT B Primary Care Unavailable SERVICE, JOBST Referring Unavailable WONDERLY, BRYANT B Primary Care Unavailable SERVICE, JOBST Referring Unavailable WONDERLY, BRYANT B Primary Care Unavailable SERVICE, JOBST Referring Unavailable WONDERLY, BRYANT B Primary Care Unavailable WONDERLY, BRYANT B Primary Care Unavailable JOHANA KOVACS Attending Unavailable BOUBACAR, RADHA Attending Unavailable HAMLIN, RADHA Referring Unavailable WONDERLY, BRYANT B Primary Care Unavailable JOHANA KOVACS P Attending Unavailable JOHANA KOVACS P Referring Unavailable WONDERLY, BRYANT B Primary Care Unavailable VANESSA, CASSANDRA Referring Unavailable WONDERLY, BRYANT B Primary Care Unavailable VANESSA, CASSANDRA Referring Unavailable WONDERLY, BRYANT B Primary Care Unavailable MARYJANE DEUTSCH Primary Care Unavailable Maryjane Marino Primary Care Provide r NAFISA NAVARRO Referring Unavailable LA NENA, MARYJANE A Primary Care Unavailable NAFISA NAVARRO Attending Unavailable LA NENA, MARYJANE A Referring Unavailable LA NENA, MARYJANE A Primary Care Unavailable JAYLEEN GAUTAM I Attending Unavailable LA NENA, MARYJANE A Referring Unavailable LA NENA, MARYJANE A Primary Care Unavailable Bryant Guillen MD Primary Care Provider La Nena HEAD CORRECTION OFFICER, Maryjane Multani Unavailable La Nena LEAD PROCESS ENGINEER-[employer], Maryjane A Primary Care Provide r Unavailable ELISE ORTA Attending Unavailable [place] Nena LEAD PROCESS ENGINEER-[employer], Maryjane A Primary Care Provide r DANIEL JUAREZ Referring Unavailable REBA BROWN Referring Unavailable LA NENA, MARYJANE A Attending Unavailable LA NENA, MARYJANE A Referring Unavailable STEPHAN MORSE Attending Unavailable STEPHAN MORSE Referring Unavailable JACQUIE BROOKS Attending Unavailable JR. LINARES GEORGE C Attending Unavaila ble LA NENA, MARYJANE Multani Attending Unavailable WONDERLY, BRYANT B Primary Care Unavailable CORDELL MORALES Attending Unavailable CARDIOLOGY, [facility] PH[facility] Consulting Unavailable MONICA, ALANNA Admitting Unavailable RAFAT SEPULVEDA Consulting Unavailable JOHANA KOVACS Referring Unavailable WONDERLY, BRYANT B Primary Care Unavailable WONDERLY, BRYANT B Primary Care Unavailable RAFAT SEPULVEDA Attending Unavailable RAFAT SEPULVEDA Referring Unavailable WONDERLY, BRYANT B Primary Care Unavailable GADANGI, MICAH JAQUELINE Referring Unavaila ble WONDERLY, BRYANT B Primary Care Unavailable DANIEL KEE Referring Unav ailable WONDERLY, BRYANT B Primary Care Unavailable MONICA, ALANNA Referring Unavailable WONDERLY, BRYANT B Primary Care Unavailable RAFAT SEPULVEDA Attending Unavailable WONDERLY, BRYANT B Referring Unavailable WONDERLY, BRYANT B Primary Care Unavailable MADELEINE KELLY Referring Unavailable WONDERLY, BRYANT B Primary Care Unavailable RAFAT SEPULVEDA Attending Unavailable WONDERLY, BRYANT B Referring Unavailable WONDERLY, BRYANT B Primary Care Unavailable RAFAT SEPULVEDA Referring Unavailable WONDERLY, BRYANT B Primary Care Unavailable RAFAT SEPULVEDA Attending Unavailable WONDERLY, BRYANT B Referring Unavailable WONDERLY, BRYANT B Primary Care Unavailable LA NENA, MARYJANE A Primary Care Unavailable LUCÍA MCNEILL Consulting Unavailable NIGHTS, PPH ADMITTING Admitting Unavailabl e VEGA RIVERA Attending Unavailable CARDIOLOGY, [facility] Consulting Unavailable FIRE CONTROL MECHANIC, VASILE K Referring Unavailable LA NENA, MARYJANE A Primary Care Unavailable FIRE CONTROL MECHANIC, VASILE K Referring Unavailable LA NENA, MARYJANE A Primary Care Unavailable LA NENA, MARYJANE A Primary Care Unavailable NAFISA CARRASQUILLO Referring Unavailable LA NENA, MARYJANE A Primary Care Unavailable REBA BROWN Attending Unavailable LA NENA, MARYJANE A Referring Unavailable L ANENA, MARYJANE A Primary Care Unavailable MELISSA NORTON Attending Unavailable LA NENA, MARYJANE A Primary Care Unavailable RENAN DELANEY Consulting Unavailabl e NIGHTS, PPH ADMITTING Admitting Unavailabl e CARDIOLOGY, [facility] Consulting Unavailable HEMATOLOGY, [facility] B[facility]IGN Consulting Kia vailable DOV ERICKSON Consulting Unavailable IGORG WAQAR Referring Unavailable LA NENA, MARYJANE A Primary Care Unavailable IGORGEVERTONEN Referring Unavailable LA NENA, MARYJANE A Primary Care Unavailable STANG WAQAR Referring Unavailable LA NENA, MARYJANE A Primary Care Unavailable IGLESIAS, CAREN D Referring Unavailable LA NENA, MARYJANE A Primary Care Unavailable IGLESIAS, CAREN D Referring Unavailable LA NENA, MARYJANE A Primary Care Unavailable IGLESIAS, CAREN D Referring Unavailable LA NENA, MARYJANE A Primary Care Unavailable RICHY MONTOYA Attending Unavailable RICHY MONTOYA Referring Unavailable RICHY MONTOYA Attending Unavailable RICHY MONTOYA Referring Unavailable LA NENA, MARYJANE A Primary Care Unavailable RENAN THRASHER Attending Unavailable LA NENA, MARYJANE A Primary Care Unavailable RENAN DELANEY Attending Unavailabl e RENAN DELANEY Referring Unavailabl e LA NENA, MARYJANE A Primary Care Unavailable REINALDO ESTES Referring Unavailable LA NENA, MARYJANE A Primary Care Unavailable RENAN DELANEY Referring Unavailabl e LA NENA, MARYJANE A Primary Care Unavailable RENAN DELANEY Attending Unavailabl e LA NENA, MARYJANE A Referring Unavailable LA NENA, MARYJANE A Primary Care Unavailable POSLAIKO, WINDY Referring Unavailable LA NENA, MARYJANE A Primary Care Unavailable RENAN DELANEY Referring Unavailabl e LA NENA, MARYJANE A Primary Care Unavailable RENAN DELANEY Attending Unavailabl e LA NENA, MARYJANE A Referring Unavailable LA NENA, MARYJANE A Primary Care Unavailable GEORGIARENAN JOAQUIN Attending Unavailabl e LA NENA, MARYJANE A Referring Unavailable LA NENA, MARYJANE A Primary Care Unavailable GEORGIARENAN JOAQUIN Attending Unavailabl e LA NENA, MARYJANE A Referring Unavailable LA NENA, MARYJANE A Primary Care Unavailable MARIVELELISE CARRILLO Referring Unavailable LA NENA, MARYJANE A Primary Care Unavailable MADELEINE KELLY Referring Unavailable LA NENA, MARYJANE A Primary Care Unavailable GEORGIARENAN JOAQUIN Attending Unavailabl e LA NENA, MARYJANE A Referring Unavailable LA NENA, MARYJANE A Primary Care Unavailable Unavailable Primary Care Provider Unavailabl carole Julien MD, Javan Restrepo Primary Care [facility] Unavailabl e NALINI CORNELL Referring Unavailable ALVA, CORNELL Referring Unavailable MANJINDER, YUDI [facility] Unavailabl CORNELL Miranda Attending Unavailable SELF Referring Unavailable MANJINDER, JAVAN [facility] Unavailabl e Allergies Allergy Classification Reported Allergen(s) Allergy Type Date of Onset Reaction(s) Facility Cephalosporins (antibiotic) (1 source) Cephalexin Drug Allergy 06-02-20 18 Rash, Swelling, Shortness of Breath [facility] HMG-CoA Reductase Inhibitors (statins) (1 source) atorvastatin Drug Allergy 06-02-20 18 Other: See Comments [facility] NIFEdipine (1 source) NIFEdipine Drug Allergy 06-02-20 18 Other: See Comments [facility] Penicillins (antibiotic) (2 sources) Dicloxacillin Drug Allergy 06-02-20 18 Rash, Swelling, Shortness of Breath, Hives [facility] (3 sources) Cephalexin Drug Allergy 10-13-19 14 Unknown [facility] Repository (3 sources) NIFEdipine Drug Allergy 01-04-20 15 Unknown [facility] Repository (11 sources) Penicillins; Translations: [PENICILLINS] Drug allergy (disorder) 10-13-19 14 Hives [facility] Repository (20 sources) Cephalexin; Translations: [CEPHALEXIN] Drug Allergy 03-27-20 14 Shortness Of Breath, Swelling, Rash [place], [place] (2 sources) Penicillins Propensity to adverse reactions to drug 03-27-20 14 Shortness Of Breath, Swelling, Rash [place], [place] (20 sources) atorvastatin; Translations: [ATORVASTATIN] Drug Allergy 10-25-19 17 muscle cramps [facility] (2 sources) Dicloxacillin Drug Allergy Unknown [facility] Other (2 sources) Penicillin Drug Allergy Unknown [facility] Other (19 sources) atorvastatin Drug Allergy 10-25-19 17 Other: See Comments [facility] (20 sources) Nifedipine; Translations: [NIFEDIPINE] Propensity to adverse reactions 10-08-19 17 [facility] (14 sources) Penicillins Drug Intolerance 03-27-20 14 Hives, Rash, Shortness of breath, Swelling [facility] (20 sources) Dicloxacillin; Translations: [DICLOXACILLIN SODIUM] Drug Allergy 07-28-20 16 Rash, Swelling, Shortness of Breath [facility] (20 sources) NIFEdipine Drug Allergy 10-08-19 17 Other: See Comments, Hypotension [facility] (20 sources) Penicillins Drug Allergy 10-08-19 17 Hives, Swelling [facility] (20 sources) Penicillin G; Translations: [PENICILLIN G POTASSIUM] Drug Allergy 09-27-20 22 Hives [facility] (20 sources) Penicillins Propensity to adverse reactions to drug 10-08-19 17 Hives, Swelling [facility] (1 source) atorvastatin; Translations: [ATORVASTATIN CALCIUM] Drug Allergy 06-02-20 18 [facility] Repository Medications Current Medications Medication Drug Class(es) Dates Sig (Normalized) Sig (Original) acetaminophen 500 mg oral tablet (20 sources) Start: 01-18-2025 take 2 tablets by mouth every eight hours acetaminophen (TYLENOL EXTRA STRENGTH) 500 mg tablet Take 2 tablets (1,000 mg total) by mouth every 8 (eight) hours. 01/18/2025 Active Start: 01-13-2025 End: 01-13-2025 take 1000 mg by mouth once 1,000 mg, oral, Once, On Fr i 01/13/25 at 1200, For 1 dose, Pre-op Start: 01-12-2025 End: 01-18-2025 take 1 tablet by mouth every eight hours 1,000 mg, oral, Every 8 hours, First dose on Gina 01/12/25 at 2310, Recommend minimized narcotics, while still providing adequate analgesia, to minimize risk of sedation and delirium. The oral route is preferred for patients tolerating oral intake without nausea and vomiting. Use IV pain medications if the oral route is ineffective for symptom control, or if patient unable to take medications orally. Start: 06-10-2024 End: 01-13-2025 take 2 tablets by mouth every eight hours acetaminophen (TYLENOL EXTRA STRENGTH) 500 mg tablet Take 2 tablets (1,000 mg total) by mouth every 8 (eight) hours. 30 tablet 06/10/2024 01/13/2025 Discontinued Start: 09-27-2022 take 2 tablets by mo ut every six hours as needed for pain acetaminophen (TYLENOL EXTRA STRENGTH) 500 mg tablet Take 2 tablets (1,000 mg total) by mouth every 6 (six) hours as needed for pain. 30 tablet 09/27/2022 Suspended acetaminophen 325 mg / butalbital 50 mg / caffeine 40 mg oral tablet (6 sources) Barbiturate, Central Nervous System Stimulant, Methylxanthine take 1 tablet by mouth every four hours as needed acetaminophen 325 mg-caffeine 40 mg-butalbital 50 mg (FIORICET) per tablet Take 1 tablet by mouth every 4 hours as needed for Headache. Active amLODIPine 10 mg oral tablet (20 sources) Dihydropyridine Calcium Channel Hayder Start: 09-07-20 End: 01-14-20 take 1 tablet by mouth once daily amLODIPine (NORVASC) 10 mg tablet Take 10 mg by mouth once daily. 09/07/2023 Active Start: 03-07-2014 amLODIPine (NO RVASC) 5 MG tablet 5 mg 0 03/07/2014 Active take 2 tablets by mo uth once daily at breakfast amLODIPine (NORVASC) 5 mg tablet Take 2 tablets (10 mg total) by mouth daily with breakfast. Active Ascorbic Acid (1 source) Vitamin C Vitamin C Active ascorbic acid 226 mg / beta carotene 78423 unt / cuprous oxide 0.8 mg / dl-alpha tocopheryl acetate 200 unt / zinc oxide 34.8 mg oral capsule (2 sources) Vitamin C PreserVision ARE DS - as directed Orally Active aspirin 81 mg delayed release oral tablet (9 sources) Platelet Aggregation Inhibitor, Nonsteroidal Anti-inflammatory Drug End: 2 take 1 tablet by mouth once daily aspirin, enteric coated (ASPIRIN, ENTERIC COATED) 81 mg EC tablet Take 81 mg by mouth once daily. Active take 1 tablet by mouth once kathi y aspirin 81 MG tablet Take 81 mg by mouth daily. 0 Active calcium carbonate 1250 mg / cholecalciferol 200 unt oral tablet (17 sources) Vitamin D Start: 01-18-2025 take 1 tablet by mouth once in the morning calcium carbonate-vitamin D3 (OSCAL 500 + D) 500 mg (1,250 mg) - 200 units per tablet Take 1 tablet by mouth in the morning and 1 tablet in the evening. Take with meals. 01/18/2025 Active Start: 01-13-2025 End: 01-18-2025 take 1 tablet by mouth twice daily qlpsoac-zzygqgbob-rljhips D3 500 mg-5 mc g (200 unit) per tablet Take 1 tablet by mouth two times a day. 01/18/2025 Active cinnamon bark 500 mg oral capsule (6 sources) take 1 capsule by mouth once daily Cinnamon Bark 500 mg cap Take 500 mg by mouth once daily. Active docusate sodium 100 mg oral capsule (20 sources) take 1 capsule by mouth once daily as needed Docusate Sodium (DSS) 100 MG capsule 1 capsule as needed Orally Once a day for 30 day(s) Active docusate sodium 50 mg / sennosides, retirement 8.6 mg oral tablet (20 sources) Start: 4 End: 5 take 2 tablets by mouth once daily sennosides-docusat e sodium (SENOKOT-S) 8.6-50 mg Take 2 tablets by mouth nightly. 01/18/2025 Active DULoxetine 60 mg delayed release oral capsule (20 sources) Serotonin and Norepinephrine Reuptake Inhibitor Start: 3 End: 5 take 1 capsule by mouth once daily in the morning DULoxetine (Cymbalta) [address] capsule Indications: Recurrent major depression in partial remission TAKE ONE CAPSULE BY MOUTH EVERY MORNING *DO NOT CRUSH OR CHEW* 90 capsule 3 08/22/2024 Active ezetimibe 10 mg oral tablet (20 sources) Dietary Cholesterol Absorption Inhibitor Start: 4 End: 5 take 1 tablet by mouth once daily ezetimibe (ZETIA) 10 mg tablet Take 1 tablet by mouth once daily. 09/30/2023 Active famotidine 40 mg oral tablet (6 sources) Histamine-2 Receptor Antagonist take 1 tablet by mouth once daily famotidine (PEPCID) 40 mg tablet Take 40 mg by mouth once daily. Active FLUoxetine 40 mg oral capsule (8 sources) Serotonin Reuptake Inhibitor Start: 4 FLUoxetine (PROZAC) 40 MG capsule furosemide 20 mg oral tablet (20 sources) Loop Diuretic Start: 3 take 1 tablet by mouth once daily furosemide (LASIX) 20 mg tablet Take 20 mg by mouth once daily. 09/15/2023 Active gabapentin 100 mg oral capsule (20 sources) Anti-epileptic Agent Start: 4 End: 5 take 1 capsule by mouth at bedtime gabapentin (NEURONTIN) 100 mg capsule Indications: Fracture of distal femur (CMS-HCC) Take 1 capsule (100 mg total) by mouth in the morning and at bedtime for 7 days. 14 capsule 11/22/2024 11/29/2024 Active take 1 capsule by mo [facility] three times daily gabapentin (NEURONTIN) 300 mg capsule Ta ke 300 mg by mouth three times daily. Active hydrALAZINE hydrochloride 50 mg oral tablet (20 sources) Arteriolar Vasodilator Start: 12-12-2022 End: 07-21-2024 take 1 tablet by mouth three times daily hydrALAZINE (APRESOLINE) 50 mg tablet Take 50 mg by mouth three times a day. 12/12/2022 Active iv contrast [...] link. 1 Each 0 03/23/2024 03/24/2024 Active Lactobacillus acidophilus (4 sources) Start: 03-08-2025 take 1 capsule by mouth in the morning Lactobacillus acidophilus (ACIDOPHILUS) capsule Take 1 capsule by mouth in the morning. 03/08/2025 Active losartan potassium 25 mg oral tablet (20 sources) Angiotensin 2 Receptor Hayder Start: 06-17-2023 End: 06-16-2024 take 1 tablet by mouth once daily in the morning losartan (Cozaar) 25 MG tablet Indications: Primary hypertension TAKE ONE TABLET BY MOUTH EVERY MORNING 90 tablet 3 08/22/2024 Active Magnesium (6 sources) take 1 tablet by mouth every twenty-four hours as needed Magnesium 250 mg tab Take 250 mg by mouth at bedtime as needed (Headaches). Active take 1 tablet by cristy th every twenty-four hours as needed Magnesium 250 mg tab Take 250 mg by mout h at bedtime as needed (Headaches). 0 Active magnesium oxide 400 mg oral tablet (2 sources) take 1 tablet by cristy th once daily magnesium oxide (MAG-OX) 400 MG tablet Take 400 mg by mouth daily 0 Active melatonin 10 mg oral capsule (20 sources) Melatonin 10 MG capsule Take by mouth. Active melatonin 1 mg t ablet,chewable Chew 3 mg and swallow nightly. Active take 1 tablet by mouth once kathi y melatonin 10 mg tablet Take 10 mg by mouth nightly. Active Melatonin 10 MG as directed Orally Active methylphenidate hydrochloride 10 mg oral tablet (2 sources) Central Nervous System Stimulant take 1 tablet by mouth once daily methylphenidate (RITALIN) 10 MG tablet Take 10 mg by mouth daily. 0 Active metoprolol tartrate 25 mg oral tablet (20 sources) beta-Adrenergic Hayder Start: 01-19-20 take 0.5 tablet by mouth every hour in the morning metoprolol tartrate (LOPRESSOR) 25 mg tablet Take 0.5 tablets (12.5 mg total) by mouth in the morning and 0.5 tablets (12.5 mg total) before bedtime. Hold for SBP less than 100 and HR less than 60. 01/18/2025 Active Start: 01-14-2025 End: 01-18-2025 12.5 mg, oral, 2 times daily , First dose on 01/14/25 at 1415, Hold SBP less than 110 or heart rate less than 60 Look-alike/sound-alike medication - verify indication for use. take 1 tablet by cristy th once daily metoprolol succinate ER (TOPROL XL) 50 m g 24 hr tablet Take 50 mg by mouth once daily. Active take 1 tablet by cristy th once daily metoprolol succinate (TOPROL XL) 25 MG extended release tablet Take 25 mg by mouth daily 0 Active Multiple Vitamins-Minerals ( PRESERVISION AREDS 2 PO) (14 sources) Multiple Vitamin s-Minerals (PRESERVISION AREDS 2 PO) Take by mouth. Active Multiple Vitamin s-Minerals (PRESERVISION AREDS 2 PO) Take by mouth. 0 Active naloxone (NARCAN) 4 mg/actua tion spray,non-aerosol nasal spray (15 sources) Start: 01-16-2025 naloxone (NARC AN) 4 mg/actuation spray,non-aerosol nasal spray Administer 1 spray (4 mg total) into alternating nostrils as needed for opioid reversal. 01/16/2025 Start: 01-16-2025 naloxone (NARC AN) 4 mg/actuation spray,non-aerosol nasal spray Administer 1 spray (4 mg total) into alternating nostrils as needed for opioid reversal. 01/16/2025 Active NONFORMULARY (2 sources) NONFORMULARY Royer e 1 capsule by mouth Preser Vision Areds 2 1 capsule at night 0 Active NONFORMULARY Royer e 1 capsule by mouth Preser Vision Areds 2 1 capsule at night 0 Suspended omega-3/dha/epa/fish oil (OM EGA-3 FISH OIL ORAL) (6 sources) omega-3/dha/epa/ fish oil (OMEGA-3 FISH OIL ORAL) Take 500 mg by mouth three times daily. Active omega-3/dha/epa/ fish oil (OMEGA-3 FISH OIL ORAL) Take 500 mg by mouth three times daily. 0 Active 24 hr oxybutynin chloride 15 mg extended release oral tablet (20 sources) Cholinergic Muscarinic Antagonist Start: 03-20-2023 End: 06-13-2024 take 1 tablet by mouth every twenty-four hours in the morning oxybutynin XL (DITROPAN XL) 15 mg 24 hr tablet Take 1 tablet (15 mg total) by mouth in the morning. 90 tablet 11 03/20/2023 Active Start: 08-07-2022 take 1 tablet by cristy once daily in the morning oxybutynin XL (DITROPAN XL) 15 mg 24 hr tablet take one tablet by mouth every morning 90 tablet 06/13/2024 Active oxyCODONE hydrochloride 5 mg oral tablet (20 sources) Opioid Agonist Start: 01-12-2025 End: 01-19-2025 take 1 tablet by mouth every four hours as needed for pain oxyCODONE (ROXICODONE) 5 mg immediate release tablet Indications: Closed fracture of proximal end of left tibia, unspecified fracture morphology, initial encounter Take 1 tablet (5 mg total) by mouth every 4 (four) hours as needed (mild to moderate pain - pain scale 1-6) for up to 3 days. Max Daily Amount: 30 mg 10 tablet 01/16/2025 01/19/2025 Active Start: 01-12-2025 End: 01-18-2025 take 1 tablet by mouth every four hours as needed for pain 10 mg, oral, Every 4 hours PRN, severe pain - pain scale 7-10, Starting on Gina 01/12/25 at 2306, For patients less than 75 years of age Recommend minimized narcotics, while still providing adequate analgesia, to minimize risk of sedation and delirium. The oral route is preferred for patients tolerating oral intake without nausea and vomiting. Use IV pain medications if the oral route is ineffective for symptom control, or if patient unable to take medications orally. Look-alike/sound-alike medication - verify indication for use. Immediate release. 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 Max Daily Amount: 30 mg 12 tablet 11/22/2024 11/29/2024 Active Start: 06-10-2024 End: 06-13-2024 take 1 tablet by mouth every four hours as needed for pain oxyCODONE (ROXICODONE) 5 mg immediate release tablet Indications: Fracture of distal femur (CMS-HCC) Take 1 tablet (5 mg total) by mouth every 4 (four) hours as needed for pain for up to 3 days. Max Daily Amount: 30 mg 18 tablet 06/10/2024 06/13/2024 Active Phenazopyridine HCl & UTI Te st (URISTAT UTI RELIEF KAREN CO) (14 sources) Phenazopyridine HCl & UTI Test (URISTAT UTI RELIEF KAREN CO) by Combination route. Active Phenazopyridine HCl & UTI Test (URISTAT UTI RELIEF KAREN CO) by Combination route. 0 Active polyethylene glycol 3350 25699 mg powder for oral solution (5 sources) Osmotic Laxative Start: 11-22-2024 End: 12-22-2024 polyethylene glycol (GLYCOLAX) 17 gram packet Take 17 g by mouth in the morning for 30 days. 30 packet 11/22/2024 12/22/2024 Active Uzicld-YhZda-Kochq-C a-Sterling 3 ( + Complete Multi) 18-0.8 & 290 MG therapy (3 sources) Ktrtzx-ExYan-Znx hf- Ca-Sterling 3 ( + Complete Multi) 18-0.8 & 290 MG therapy Take by mouth 0 Active [id number] acid 29 mg iron- 1 mg chew (6 sources) take 1 mg by mouth once daily [id number] acid 29 mg iron- 1 mg chew Take 1 mg by mouth once daily. Active take 1 mg by mouth once daily pr enatal [id number] acid 29 mg iron- 1 mg chew Take 1 mg by mouth once daily. 0 Active Vit-Fe Fumarate-FA ( VITAMINS PO) (2 sources) Vit-Fe Fumarate-FA ( VITAMINS PO) Take by mouth 0 Active Vit-Fe Fumarate-FA ( VITAMINS PO) Take by mouth 0 Suspended simvastatin 40 mg oral tablet (2 sources) HMG-CoA Reductase Inhibitor take 1 tablet by mouth once daily simvastatin (ZOCOR) 40 MG tablet Take 40 mg by mouth nightly 0 Active solifenacin succinate 10 mg oral tablet (6 sources) Cholinergic Muscarinic Antagonist take 5 mg by mouth once daily solifenacin 10 mg tablet Take 5 mg by mouth once daily. Active sulfamethoxazole 400 mg / trimethoprim 80 mg oral tablet (6 sources) Dihydrofolate Reductase Inhibitor Antibacterial, Sulfonamide Antimicrobial Start: 01-19-20 End: 01-24-20 take 1 tablet by mouth once sulfamethoxazole-t rimethoprim (BACTRIM,SEPTRA) 400-80 mg per tablet Take 1 tablet by mouth every 12 (twelve) hours for 5 days. 01/18/2025 01/23/2025 Active Start: 01-16-2025 End: 01-18-2025 take 1 tablet by mouth every twelve hours 1 tablet, oral, Every 12 hours scheduled, First dose on Thu01/16/25 at 2100, Indication: UTI topiramate 50 mg oral tablet (20 sources) Start: 03-07-2014 End: 01-13-2025 take 1 tablet by mouth in the morning topiramate (Topamax) 50 MG tablet Indications: Migraine without status migrainosus, not intractable, unspecified migraine type Take 50 mg by mouth in the morning and 50 mg before bedtime. 180 tablet 3 08/17/2023 Active take 1 tablet by mouth once kathi y topiramate (TOPAMAX) 50 mg tablet Take 50 mg by mouth once daily. Active traZODone hydrochloride 50 mg oral tablet (18 sources) Serotonin Reuptake Inhibitor Start: 12-24-2024 End: 01-18-2025 take 1 tablet by mouth once daily traZODone (DESYREL) 50 mg tablet Take 1 tablet (50 mg total) by mouth nightly. 12/24/2024 Active vibegron (GEMTESA) 75 mg tablet (7 sources) Start: 02-22-2025 take 1 tablet by mouth in the morning vibegron (GEMTESA) 75 mg tablet Take 75 mg by mouth in the morning. 30 tablet 11 02/22/2025 Active vit A/vit C/vit E/zinc/copper (PRESERVISION AREDS ORAL) (20 sources) take 1 tablet by mouth once daily vit A/vit C/vit E/zinc/copper (PRESERVISION AREDS ORAL) Take 1 tablet by mouth nightly. take 1 tablet by mouth once kathi y vit A/vit C/vit E/zinc/copper (PRESERVISION AREDS ORAL) Take 1 tablet by mouth nightly. Suspended take 1 tablet by mouth once kathi y vit A/vit C/vit E/zinc/copper (PRESERVISION AREDS ORAL) Take 1 tablet by mouth nightly. Active take 1 tablet by mouth in the mo rning vit A/vit C/vit E/zinc/copper (PRESERVISION AREDS ORAL) Take 1 tablet by mouth in the morning. Suspended take 1 tablet by mouth in the mo rning vit A/vit C/vit E/zinc/copper (PRESERVISION AREDS ORAL) Take 1 tablet by mouth in the morning. Active take 1 tablet by mouth in the mo rning vit A/vit C/vit E/zinc/copper (PRESERVISION AREDS ORAL) Take 1 tablet by mouth in the morning. 0 Active vit C,L-Pl-wqkvm-lutein-zeax an (PRESERVISION AREDS 2) 204-673-62-1 ec-jieo-sz-mg cap (6 sources) vit C,E-Zn-coppr -lutein-zeaxan (PRESERVISION AREDS 2) 100-057-11-1 bg-irxm-fb-mg cap Take 1 capsule by mouth twice daily. Active vit C,E-Zn-coppr -lutein-zeaxan (PRESERVISION AREDS 2) [phone] cn-vibu-wq-mg cap Take 1 capsule by mouth twice daily. 0 Active vitamin b12 1 mg oral tablet (20 sources) Vitamin B12 take 1 tablet by mouth once daily cyanocobalamin (VITAMIN B-12) 1,000 mcg tab Take 1,000 mcg by mouth once daily. Active End: 01-13-2025 take 1 tablet by mouth in the morning cyanocobalamin, vitamin B-12, (VITAMIN B-12) 1,000 mcg tablet extended release Take 1 tablet (1 mg total) by mouth in the morning. 01/13/2025 Discontinued cyanocobalamin ( vitamin B-12) 100 MCG tablet Take 10 tablets (1,000 mcg total) by mouth in the morning. Active Vitamin B12 1000 MCG (2 sources) take 1 tablet by cristy th once daily Vitamin B12 1000 MCG 1 tablet Orally Once a day Active Completed/Discontinued Medications Medication Drug Class(es) Dates Sig (Normalized) Sig (Original) bisacodyl 10 mg rectal suppository (11 sources) Stimulant Laxative Start: 11-22-2024 End: 01-13-2025 bisacodyL (DULCOLAX) 10 mg suppository Insert 1 suppository (10 mg total) into the rectum daily as needed for constipation. 12 suppository 11/22/2024 01/13/2025 Discontinued calcium chloride 0.0014 meq/ml / potassium chloride 0.004 meq/ml / sodium chloride 0.103 meq/ml / sodium lactate 0.028 meq/ml injectable solution (1 source) Start: 01-13-2025 End: 01-13-2025 take 2 mL intravenously every hour 50 mL/hr, intravenous, Continuous, Starting on Thu01/13/25 at 1200, Pre-op, If fluid restriction is not indicated, infuse at a rate up to 5 mL/kg/hr not to exceed the total replacement volume (2 ml/kg/hr) from the time NPO status was initiated. calcium citrate 950 mg oral tablet (20 sources) Start: 01-13-2025 End: 01-18-2025 take 400 mg by mouth three times daily at mealtime 400 mg, oral, 3 times daily with meals, First dose on Thu01/13/25 at 1215 Start: 06-10-2024 calcium citrat e (CALCITRATE) 200 mg (950 mg) tablet Take 2 tablets (400 mg total) by mouth in the morning and 2 tablets (400 mg total) at noon and 2 tablets (400 mg total) in the evening. Take with meals. 06/10/2024 Active cholecalciferol 0.05 mg oral tablet (20 sources) Vitamin D Start: 01-13-2025 End: 01-18-2025 take 2000 [IU] by mouth once daily 2,000 Units, oral, Daily, First dose on Thu01/13/25 at 1215 Start: 06-10-2024 take 1 tablet by cristy th in the morning cholecalciferol, vitamin D3, 2,000 units tablet Take 1 tablet (2,000 Units total) by mouth in the morning. 06/10/2024 Active take 1 tablet by cristy th twice daily Cholecalciferol (VITAMIN D3) 125 MCG (5000 UT) TABS Take 1 tablet by mouth 2 times daily 0 Active Cinnamon Preparation (1 source) Non-Standardized Food Allergenic Extract End: 08-07-2020 CINNAMON PO Take by mouth. 0 08/07/2020 Discontinued (LIST CLEANUP) ciprofloxacin 500 mg oral tablet (3 sources) Quinolone Antimicrobial Start: 03-08-2025 End: 03-28-2025 take 1 tablet by mouth in the morning, then take 1 tablet by mouth at bedtime ciprofloxacin HCl (CIPRO) 500 mg tablet Take 1 tablet (500 mg total) by mouth in the morning and 1 tablet (500 mg total) before bedtime. Do all this for 20 days. 03/08/2025 03/28/2025 50 ml clindamycin 18 mg/ml injection (1 source) Lincosamide Antibacterial Start: 01-13-2025 End: 01-16-2025 take 900 mg intravenously every eight hours 900 mg, intravenous, at 100 mL/hr, Administer over 30 Minutes, Every 8 hours, First dose on Thu01/13/25 at 2230, For 3 days, Indication: Surgical prophylaxis doxycycline hyclate 100 mg oral capsule (4 sources) Tetracycline-class Drug Start: 03-08-2025 End: 03-28-2025 take 1 capsule by mouth in the morning, then take 1 capsule by mouth at bedtime doxycycline (VIBRAMYCIN) 100 mg capsule Take 1 capsule (100 mg total) by mouth in the morning and 1 capsule (100 mg total) before bedtime. Do all this for 20 days. 03/08/2025 03/28/2025 Start: 11-22-2024 End: 11-26-2024 take 1 capsule by mouth in the morning, then take 1 capsule by mouth at bedtime doxycycline (VIBRAMYCIN) 100 mg capsule Take 1 capsule (100 mg total) by mouth in the morning and 1 capsule (100 mg total) before bedtime. Do all this for 4 days. 8 capsule 11/22/2024 11/26/2024 Active 1 ml epoetin flor-epbx 04137 unt/ml injection (3 sources) Erythropoiesis-stimulating Agent Start: 01-18-2025 End: 01-18-2025 inject 12 g by subcutaneous injection once 40,000 Units, subcutaneous, Once, On Thu01/18/25 at 1230, For 1 dose, Do not administer if the patient's hemoglobin is greater than 12 g/dl., Indications: anemia Start: 01-16-2025 End: 01-17-2025 inject 12 g by subcutaneous injection once daily 40,000 Units, subcutaneous, Daily, First dose on 01/16/25 at 1345, For 2 doses, Do not administer if the patient's hemoglobin is greater than 12 g/dl., Indications: anemia, anemia due to renal failure Start: 01-15-2025 End: 01-15-2025 inject 12 g by subcutaneous injection once 40,000 Units, subcutaneous, Once, On Thu01/15/25 at 1245, For 1 dose, Do not administer if the patient's hemoglobin is greater than 12 g/dl., Indications: anemia, anemia due to renal failure ferrous sulfate 325 mg oral tablet (20 sources) Start: 01-13-2025 End: 01-15-2025 take 325 mg by mouth once daily at breakfast 325 mg, oral, Daily with breakfast, First dose on Thu01/13/25 at 1215, Give ferrous sulfate 2 hours before or 4 hours after antacids. flecainide acetate 100 mg oral tablet (20 sources) Antiarrhythmic Start: 01-14-2025 End: 01-18-2025 take 1 tablet by mouth every twelve hours 100 mg, oral, Every 12 hours, First dose on 01/14/25 at 1415, Look-alike/sound- alike medication - verify indication for use. Start: 04-13-2023 flecainide (Ta mbocor) 100 MG tablet every 12 (twelve) hours. 04/13/2023 Active Start: 06-23-2016 take 1 tablet by cristy th every twelve hours flecainide (TAMBOCOR) 100 mg tablet Take 1 tablet (100 mg total) by mouth every 12 (twelve) hours. 06/23/2016 Active Start: 03-07-2014 flecainide (TA MBOCOR) 100 MG tablet 100 mg 2 times daily 0 03/07/2014 Active Flecainide Aceta te 150 MG as directed Orally every 12 hrs Active glucagon (rdna) 1 mg injection (1 source) Antihypoglycemic Agent Start: 01-12-2025 End: 01-18-2025 1 mg, intramuscular, As needed, low blood sugar, blood glucose less than 70 mg/dL and unconscious or NPO without IV access., Starting on Gina 01/12/25 at 2304, If conscious and not NPO, immediately follow with meal tray or high protein (7Grams) snack if tray not available. If NPO, initiate IV 5% Dextrose/Water at 100 mL/hr and contact prescriber for additional orders. If blood glucose is not greater than 70 mg/dL after initial treatment, repeat treatment. 50 ml glucose 500 mg/ml prefilled syringe (2 sources) Start: 01-12-2025 End: 01-18-2025 15 g, oral, As needed, low blood sugar, blood glucose less than 70 mg/dL, Starting on Gina 01/12/25 at 2304, If patient conscious and taking PO. If blood glucose is not greater than 70 mg/dL after initial treatment, repeat treatment. Start: 01-12-2025 End: 01-18-2025 25 mL, intravenous, As neede d, low blood sugar, blood glucose less than 70 mg/dL and unconscious or NPO with IV access, Starting on Gina 01/12/25 at 2304, Push over 1-3 minutes STAT. If conscious and not NPO, immediately follow with meal tray or high protein (7 grams) snack if tray not available. If NPO, initiate 5% dextrose in water at 100 mL/hr and contact prescriber for additional orders. If blood glucose is not greater than 70 mg/dL after initial treatment, repeat treatment. VESICANT (RED) Warning: HYPERTONIC solution. hydroCHLOROthiazide 12.5 mg oral capsule (1 source) Thiazide Diuretic Start: 03-07-2014 End: 08-07-2020 hydrochlorothiazide (MICROZIDE) 12.5 MG capsule iron sucrose (VENOFER) 100 mg in sodium chloride 0.9 % 50 mL IVPB (1 source) Start: 01-15-2025 End: 01-18-2025 100 mg, intravenous, at 220 mL/hr, Administer over 15 Minutes, Daily, First dose on Thu01/15/25 at 1030, For 5 doses, Monitor patient for hypersensitivity reactions for at least 30 minutes after the infusion. AVOID the use of H1 antihistamines, such as diphenhydramine, as this may worsen hypersensitivity reactions. Have resuscitation equipment and medications available. lisinopril 40 mg oral tablet (1 source) Angiotensin Converting Enzyme Inhibitor Start: 03-07-2014 End: 08-07-2020 lisinopril (PRINIVIL;ZESTRIL) 40 MG tablet methocarbamol 500 mg oral tablet (20 sources) Muscle Relaxant Start: 06-10-2024 End: 01-13-2025 methocarbamoL (ROBAXIN) 500 mg tablet Take 1 tablet (500 mg total) by mouth in the morning and 1 tablet (500 mg total) at noon and 1 tablet (500 mg total) in the evening and 1 tablet (500 mg total) before bedtime. 28 tablet 06/10/2024 01/13/2025 Discontinued 2 ml midazolam 1 mg/ml cartridge (1 source) Benzodiazepine Start: 01-13-2025 End: 01-13-2025 2 mg, intravenous, As needed, anxiety, Starting on Thu01/13/25 at 1156, For 2 doses, Pre-op, May repeat in 10 minutes, if needed, if original midazolam (VERSED) ineffective, Indication: Other, Indication: anxiety midodrine hydrochloride 10 mg oral tablet (1 source) alpha-Adrenergic Agonist Start: 01-13-2025 End: 01-13-2025 take 10 mg by mouth once 10 mg, oral, Once, On Thu01/13/25 at 2345, For 1 dose, Look-alike/sound-alike medication - verify indication for use. Start: 01-13-2025 End: 01-13-2025 take 10 mg by mouth once 10 mg, oral, Once, On Thu at 2345, For 1 dose, Look-alike/sound-alike medication - verify indication for use. 1 ml morphine sulfate 2 mg/ml injection (1 source) Opioid Agonist Start: 01-12-2025 End: 01-12-2025 2 mg, intravenous, Once, On Gina 01/12/25 at 2045, For 1 dose, Look-alike/sound-alike medication - verify indication for use. Multiple Vitamins-Mineral s (WOMENS MULTI VITAMIN & MINERAL PO) (1 source) End: 08-07-2020 Multiple Vitamins-Minerals (WOMENS MULTI VITAMIN & MINERAL PO) Take by mouth. 0 08/07/2020 Discontinued (LIST CLEANUP) NON FORMULARY (2 sources) End: 10-28-2023 NON FORMULARY Lymph system support from [employer] 0 10/28/2023 Discontinued (Therapy completed) Sterling-3 Fatty Acids (FISH OIL PO) (1 source) End: 08-07-2020 Sterling-3 Fatty Acids (FISH OIL PO) Take by mouth. 0 08/07/2020 Discontinued (LIST CLEANUP) omeprazole 20 mg delayed release oral capsule (1 source) Proton Pump Inhibitor Start: 03-07-2014 End: 08-07-2020 omeprazole (PRILOSEC) 20 MG capsule 2 ml ondansetron 2 mg/ml injection (1 source) Serotonin-3 Receptor Antagonist Start: 01-12-2025 End: 01-18-2025 take 4 mg intravenously every eight hours as needed for nausea 4 mg, intravenous, Every 8 hours PRN, nausea, Starting on Gina 01/12/25 at 2306, Intravenous administration preferred to be given over 2-5 minutes., Intravenous Specific Administration: IV Push pantoprazole 40 mg delayed release oral tablet (20 sources) Proton Pump Inhibitor Start: 12-03-2022 End: 01-13-2025 take 1 tablet by mouth in the morning pantoprazole (PROTONIX) 40 mg EC tablet Indications: History of sleeve gastrectomy , Postsurgical malabsorption , Malnutrition following gastrointestinal surgery Take 1 tablet (40 mg total) by mouth in the morning. 90 tablet 3 12/18/2023 01/13/2025 Discontinued phytonadione (Vitamin K) (AQUA-MEPHYTON) 5 mg in sodium chloride 0.9 % 50 mL IVPB (1 source) Start: 01-12-2025 End: 01-13-2025 5 mg, intravenous, at 101 mL/hr, Administer over 30 Minutes, Once, On Gina 01/12/25 at 2255, For 1 dose pregabalin 150 mg oral capsule (1 source) Start: 03-07-2014 End: 08-07-2020 LYRICA 150 MG capsule rosuvastatin calcium 10 mg oral tablet (20 sources) HMG-CoA Reductase Inhibitor Start: 01-15-2025 End: 01-18-2025 take 5 mg by mouth once daily 5 mg, oral, Daily, First dose on Thu01/15/25 at 1600, Look-alike/sound-alike medication - verify indication for use. Start: 12-15-2022 take 1 tablet by cristy th once daily rosuvastatin (CRESTOR) 5 mg tablet Take 5 mg by mouth once daily. 12/15/2022 Active take 1 tablet by cristy th once daily rosuvastatin (CRESTOR) 10 mg tablet Take 10 mg by mouth once daily. Active 1000 ml sodium chloride 9 mg/ml injection (4 sources) Start: 01-15-2025 End: 01-18-2025 take 20 mL intravenously every hour as needed 20 mL/hr, intravenous, Continuous PRN, per policy for blood product transfusion, Starting on Thu01/15/25 at 2030, Initiate prior to blood product transfusion. Continue before and after each blood product transfusion. Discontinue upon completion of blood product transfusion(s). Start: 01-13-2025 End: 01-14-2025 1,000 mL, intravenous, at 98 4 mL/hr, Administer over 61 Minutes, Once, On Thu01/13/25 at 2345, For 1 dose Start: 01-12-2025 End: 01-12-2025 1,000 mL, intravenous, at 98 4 mL/hr, Administer over 61 Minutes, Once, On Thu01/12/25 at 1910, For 1 dose Start: 08-07-2020 0.9 % sodium c hloride infusion traMADol hydrochloride 50 mg oral tablet (1 source) Opioid Agonist Start: 03-07-2014 End: 08-07-2020 traMADol (ULTRAM) 50 MG tablet warfarin sodium 2.5 mg oral tablet (20 sources) Vitamin K Antagonist Start: 01-18-2025 End: 01-18-2025 2.5 mg, oral, Daily, First dose on Thu01/18/25 at 1600, Food-Drug Interaction Education Required Look-alike/sound-felipa e medication - verify indication for use Avoid intake of foods with large amounts of vitamin K Enteral Feeding: If patient is on tube feedings, avoid formulas containing soy protein Transition to oral diet may require decrease in warfarin dose, Target INR: 2 - 3, Indication: Atrial fibrillation/embolism , Hold warfarin & notify prescriber if INR greater than: 3 Start: 02-23-2024 End: 01-16-2025 take 0.5-1 tablets by mouth in the evening warfarin (COUMADIN) 5 mg tablet 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 or as directed by Natalie BAXTER (Medication Therapy Management). 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 as directed by Natalie BAXTER (Medication Therapy Management). 90 tablet 1 06/26/2023 Active take 1 tablet by mouth once warf yordan (COUMADIN) 7.5 mg tablet Take 7.5 mg by mouth every Thursday,Thursday,Thursday,Thursday. Active take 1 tablet by cristy th every week warfarin (COUMADIN) 3 MG tablet Take 3 mg by mouth once a week Thursday only 0 Active Problems Active Problems Problem Classification Problem Date Documented Date Episodic/Chronic Administrative/social admission (2 sources) Patient encounter status; Translations: [Persons encountering health services in other specified circumstances] 11-01-2023 Episodic Anxiety disorders (20 sources) Mixed anxiety and depressive disorder; Translations: [Other specified anxiety disorders] Onset: 7 Resolved: 3 09-30-2023 Chronic Asthma (20 sources) Asthma; Translations: [Unspecified asthma, uncomplicated] Onset: 7 06-02-2018 Chronic Bacterial infection; unspecified site (6 sources) Other bacterial infections of unspecified site; Translations: [Actinomycosis, unspecified] Onset: 5 Episodic Blindness and vision defects (20 sources) Visual impairment; Translations: [Unspecified visual loss] Onset: 3 Resolved: 3 11-01-2023 Chronic Cardiac dysrhythmias (20 sources) Paroxysmal atrial fibrillation; Translations: [Unspecified atrial fibrillation] Onset: 4 Resolved: 3 11-01-2023 Chronic Cataract (20 sources) Nuclear sclerotic cataract; Translations: [Age-related nuclear cataract, bilateral] Onset: 6 Resolved: 3 10-28-2023 Chronic Chronic kidney disease (20 sources) Chronic kidney disease stage 3B ; Translations: [Stage 3b chronic kidney disease (HCC) (CMS/HCC)] Onset: 7 Resolved: 3 11-01-2023 Chronic Chronic kidney disease (4 sources) Chronic kidney disease; Translations: [Chronic kidney disease, stage 3b] Onset: 3 Coagulation and hemorrhagic disorders (1 source) Blood coagulation disorder; Translations: [Coagulation defect, unspecified] Onset: 5 03-28-2025 Chronic Complications of surgical procedures or medical care (20 sources) Post-surgical malabsorption; Translations: [Postsurgical malabsorption, not elsewhere classified] Onset: 4 12-17-2023 Chronic Complications of surgical procedures or medical care (5 sources) Infection following a procedure, other surgical site, initial encounter; Translations: [Periprosthetic fracture around other internal prosthetic joint, subsequent encounter] Onset: 5 Episodic Conduction disorders (20 sources) Atrioventricular block, first degree; Translations: [First degree atrioventricular block] Onset: 7 Resolved: 3 11-01-2023 Chronic Deficiency and other anemia (1 source) Iron deficiency anemia due to blood loss; Translations: [Iron deficiency anemia secondary to blood loss (chronic)] 01-31-2025 Chronic Disorders of lipid metabolism (20 sources) Dyslipidemia; Translations: [Hyperlipidemia, unspecified] Onset: 7 11-01-2023 Chronic E Codes: Fall (2 sources) Fall Onset: 4 Esophageal disorders (20 sources) Gastroesophageal reflux disease; Translations: [Gastro-esophageal reflux disease without esophagitis] Onset: 7 Resolved: 0 11-01-2023 Chronic Essential hypertension (20 sources) Essential (primary) hypertension; Translations: [Benign essential hypertension] Onset: 4 11-01-2023 Chronic Genitourinary symptoms and ill-defined conditions (20 sources) Unspecified urinary incontinence; Translations: [Urge incontinence of urine] Onset: 8 11-01-2023 Chronic Genitourinary symptoms and ill-defined conditions (20 sources) Nocturia; Translations: [Urgent desire to urinate] Onset: 8 10-28-2023 Episodic Headache; including migraine (20 sources) Migraine; Translations: [Migraine, unspecified, not intractable, without status migrainosus] Onset: 3 Resolved: 3 09-30-2023 Chronic Hypertension with complications and secondary hypertension (20 sources) Secondary hypertension; Translations: [Other secondary hypertension] Onset: 2 11-01-2023 Chronic Mood disorders (20 sources) Moderate major depression, single episode; Translations: [Major depressive disorder, single episode, moderate] Onset: 7 11-01-2023 Chronic Nutritional deficiencies (1 source) Vitamin D deficiency; Translations: [Vitamin D deficiency, unspecified] Onset: 5 03-28-2025 Chronic Open wounds of extremities (15 sources) Open wound of lower limb; Translations: [Unspecified open wound, left lower leg, initial encounter] Onset: 5 03-02-2025 Episodic Osteoarthritis (20 sources) Arthritis; Translations: [Unspecified osteoarthritis, unspecified site] Onset: 4 09-30-2023 Chronic Osteoporosis (20 sources) Senile osteoporosis; Translations: [Age-related osteoporosis without current pathological fracture] Onset: 7 10-28-2023 Chronic Other and ill-defined heart disease (20 sources) Left ventricular hypertrophy; Translations: [Cardiomegaly] Onset: 7 Resolved: 3 11-01-2023 Chronic Other bone disease and musculoskeletal deformities (16 sources) Idiopathic kyphoscoliosis; Translations: [Other idiopathic scoliosis, site unspecified] Onset: 4 10-28-2023 Chronic Other congenital anomalies (16 sources) Congenital spondylolisthesis; Translations: [Congenital spondylolisthesis] Onset: 4 11-01-2023 Chronic Other congenital anomalies (11 sources) Hereditary lymphedema; Translations: [Other lymphedema] Onset: 3 06-17-2023 Chronic Other connective tissue disease (18 sources) Artificial knee joint present; Translations: [Presence of artificial knee joint, bilateral] Onset: 2 11-01-2023 Chronic Other connective tissue disease (4 sources) History of revision of left total knee arthroplasty; Translations: [Presence of left artificial knee joint] Onset: 5 12-14-2024 Chronic Other connective tissue disease (2 sources) Presence of left artificial knee joint; Translations: [Presence of left artificial knee joint] Onset: 5 Chronic Other connective tissue disease (2 sources) History of total knee arthroplasty; Translations: [Presence of left artificial knee joint] Onset: 5 04-16-2025 Chronic Other connective tissue disease (1 source) Presence of unspecified artificial knee joint; Translations: [Presence of unspecified artificial knee joint] Onset: 5 Chronic Other connective tissue disease (12 sources) Pain of left calf; Translations: [Pain in left lower leg] Onset: 5 01-31-2025 Episodic Other connective tissue disease (1 source) Pain in left lower leg; Translations: [Pain in left lower leg] Onset: 5 Episodic Other diseases of bladder and urethra (20 sources) Disorder of bladder; Translations: [Bladder disorder, unspecified] Onset: 7 Resolved: 3 11-01-2023 Chronic Other diseases of bladder and urethra (1 source) Overactive bladder; Translations: [Overactive bladder] Onset: 5 03-28-2025 Chronic Other diseases of kidney and ureters (20 sources) Hyperparathyroidism due to renal insufficiency; Translations: [Secondary hyperparathyroidism of renal origin] Onset: 7 11-01-2023 Chronic Other diseases of veins and lymphatics (20 sources) Lymphedema; Translations: [Lymphedema, not elsewhere classified] Onset: 4 11-01-2023 Chronic Other diseases of veins and lymphatics (8 sources) Lymphedema, not elsewhere classified; Translations: [Other lymphedema] Onset: 3 10-28-2023 Chronic Other ear and sense organ disorders (2 sources) Decreased hearing ; Translations: [Unspecified hearing loss, unspecified ear] 11-01-2023 Chronic Other eye disorders (20 sources) Posterior vitreous detachment of right eye; Translations: [Vitreous degeneration, right eye] Onset: 9 Resolved: 3 10-28-2023 Chronic Other eye disorders (20 sources) Vitreous floaters of right eye; Translations: [Other vitreous opacities, right eye] Onset: 9 Resolved: 3 11-01-2023 Chronic Other eye disorders (20 sources) Vitreous syneresis; Translations: [Other vitreous opacities, left eye] Onset: 9 Resolved: 3 09-30-2023 Chronic Other eye disorders (1 source) Bilateral vitreous floaters; Translations: [Other vitreous opacities, bilateral] 12-18-2023 Chronic Other eye disorders (1 source) Bilateral posterior vitreous detachment; Translations: [Vitreous degeneration, bilateral] 12-18-2023 Chronic Other fractures (15 sources) Periprosthetic fracture; Translations: [Periprosthetic fracture around other internal prosthetic joint, initial encounter] Onset: 5 01-20-2025 Episodic Other gastrointestinal disorders (2 sources) Diarrhea; Translations: [Diarrhea, unspecified] 11-01-2023 Episodic Other nervous system disorders (14 sources) Polyneuropathy; Translations: [Polyneuropathy, unspecified] Onset: 2 06-17-2023 Chronic Other nervous system disorders (20 sources) Neuropathy; Translations: [Polyneuropathy, unspecified] Onset: 3 09-30-2023 Chronic Other nervous system disorders (2 sources) Demyelinating disease of central nervous system; Translations: [Demyelinating disease of central nervous system, unspecified] 03-23-2024 Chronic Other nervous system disorders (3 sources) Idiopathic progressive polyneuropathy; Translations: [Idiopathic progressive neuropathy] 05-12-2024 Chronic Other nervous system disorders (1 source) Difficulty walking; Translations: [Difficulty in walking, not elsewhere classified] Onset: 5 03-28-2025 Chronic Other nervous system disorders (1 source) Demyelinating disease of central nervous system, unspecified; Translations: [Demyelinating disease of central nervous system (HCC)] Onset: Chronic Other nervous system disorders (2 sources) Ataxia; Translations: [Ataxia, unspecified] 03-23-2024 Episodic Other non-traumatic joint disorders (2 sources) Derangement of left shoulder joint; Translations: [Other specific joint derangements of left shoulder, not elsewhere classified] 05-13-2024 Chronic Other non-traumatic joint disorders (1 source) Pain in left knee; Translations: [Pain in left knee] Onset: 5 Episodic Other non-traumatic joint disorders (1 source) Hip pain; Translations: [Pain in left hip] Onset: 5 03-28-2025 Episodic Other nutritional; endocrine; and metabolic disorders (20 sources) Obesity; Translations: [Obesity, unspecified] Onset: 4 06-17-2023 Chronic Other nutritional; endocrine; and metabolic disorders (20 sources) Body mass index 40+ - severely obese; Translations: [Morbid (severe) obesity due to excess calories] Onset: 7 Resolved: 8 06-02-2018 Chronic Other nutritional; endocrine; and metabolic disorders (1 source) Body mass index 30+ - obesity; Translations: [Obesity, unspecified] 04-16-2025 Chronic Other nutritional; endocrine; and metabolic disorders (1 source) Hypomagnesemia; Translations: [Hypomagnesemia] Onset: 5 03-28-2025 Chronic Other skin disorders (1 source) Callosity; Translations: [Corns and callosities] Onset: 5 03-28-2025 Episodic Pathological fracture (9 sources) Pathological fracture due to osteoporosis; Translations: [Age-related osteoporosis with current pathological fracture, left lower leg, subsequent encounter for fracture with routine healing] Onset: 5 02-04-2025 Episodic Peripheral and visceral atherosclerosis (2 sources) Atherosclerosis of aorta; Translations: [Atherosclerosis of aorta] 11-01-2023 Chronic Residual codes; unclassified (20 sources) Sleep apnea; Translations: [Sleep apnea, unspecified] Onset: 3 06-17-2023 Chronic Residual codes; unclassified (3 sources) Presence of functional implant, unspecified; Translations: [Presence of functional implant, unspecified] Onset: 5 Chronic Residual codes; unclassified (1 source) Obstructive sleep apnea syndrome; Translations: [Obstructive sleep apnea (adult) (pediatric)] Onset: 5 03-28-2025 Chronic Residual codes; unclassified (1 source) Personal history of other drug therapy; Translations: [Personal history of other drug therapy] Onset: 5 Episodic Retinal detachments; defects; vascular occlusion; and retinopathy (20 sources) Bilateral drusen of maculae; Translations: [Drusen (degenerative) of macula, bilateral] Onset: 6 Resolved: 3 09-30-2023 Chronic Spondylosis; intervertebral disc disorders; other back problems (20 sources) Inflammation of sacroiliac joint; Translations: [Sacroiliitis, not elsewhere classified] Onset: 4 Resolved: 3 11-01-2023 Chronic Spondylosis; intervertebral disc disorders; other back problems (20 sources) Lumbosacral radiculopathy; Translations: [Radiculopathy, lumbosacral region] 05-04-2024 Episodic Superficial injury; contusion (15 sources) Contusion of left thigh; Translations: [Contusion of left thigh, initial encounter] Onset: 3 09-30-2023 Episodic Systemic lupus erythematosus and connective tissue disorders (20 sources) Arteritis; Translations: [Other giant cell arteritis] Onset: 8 Resolved: 3 11-01-2023 Chronic Unclassified (2 sources) DX Onset: 8 Unclassified (1 source) EMS Onset: 4 Unclassified (2 sources) Post-op Onset: 4 Unclassified (1 source) New Patient Onset: 5 Unclassified (1 source) Establish Care Onset: 4 Unclassified (1 source) EMS//// 68 yo F Onset: 4 Unclassified (1 source) Established Patient Follow-Up Onset: 5 Urinary tract infections (20 sources) Urinary tract infection, site not specified; Translations: [Urinary tract infectious disease] Onset: 2 Resolved: 3 Episodic Past or Other Problems Problem Classification Problem Date Documented Da te Episodic/Chronic Acute and unspecified renal failure (2 sources) Acute renal failure syndrome; Translations: [Acute kidney failure, unspecified] Onset: 5 01-12-2025 Episodic Blindness and vision defects (20 sources) Bilateral hyperopia of eyes; Translations: [Hypermetropia, bilateral] Onset: 9 Resolved: 3 09-30-2023 Episodic Complication of device; implant or graft (20 sources) 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; Translations: [Broken internal left knee prosthesis, initial encounter] Onset: 5 11-16-2024 Episodic Conditions associated with dizziness or vertigo (14 sources) Dizziness; Translations: [Dizziness and giddiness] Onset: 3 09-30-2023 Episodic Deficiency and other anemia (18 sources) Iron deficiency anemia secondary to inadequate dietary iron intake; Translations: [Other iron deficiency anemias] Onset: 7 10-28-2023 Episodic Deficiency and other anemia (20 sources) Anemia; Translations: [Anemia, unspecified] Onset: 7 Resolved: 3 06-17-2023 Episodic Deficiency and other anemia (20 sources) Iron deficiency anemia; Translations: [Iron deficiency anemia, unspecified] Onset: 7 06-02-2018 Episodic Disorders of teeth and jaw (20 sources) Tooth disorder; Translations: [Disorder of teeth and supporting structures, unspecified] Onset: 3 Resolved: 3 09-30-2023 Episodic E Codes: Fall (1 source) Unspecified fall, initial encounter; Translations: [Unspecified fall, initial encounter] Onset: 4 Episodic Fluid and electrolyte disorders (20 sources) Hypokalemia; Translations: [Hypokalemia] Onset: 3 09-30-2023 Episodic Fracture of lower limb (20 sources) Closed supracondylar fracture of femur; Translations: [Displaced supracondylar fracture without intracondylar extension of lower end of left femur, subsequent encounter for closed fracture with routine healing] Onset: 4 07-20-2024 Episodic Fracture of lower limb (1 source) Unspecified fracture of lower end of right femur, initial encounter for closed fracture; Translations: [Unspecified fracture of lower end of right femur, initial encounter for closed fracture] Onset: 4 Episodic Gastrointestinal hemorrhage (20 sources) Gastrointestinal hemorrhage; Translations: [Gastrointestinal hemorrhage, unspecified] Onset: 3 Resolved: 3 06-17-2023 Episodic Headache; including migraine (20 sources) Headache disorder; Translations: [Other headache syndrome] Onset: 7 09-30-2023 Episodic Joint disorders and dislocations; trauma-related (20 sources) Unspecified dislocation of left knee, initial encounter; Translations: [Dislocation of knee, unspecified, closed] Onset: 5 11-16-2024 Episodic Malaise and fatigue (20 sources) Fatigue; Translations: [Other fatigue] Onset: 8 Resolved: 3 09-30-2023 Episodic Mood disorders (20 sources) Mood disorders Onset: 4 Resolved: 5 06-03-2024 Nonspecific chest pain (20 sources) Chest pain; Translations: [Chest pain, unspecified] Onset: 3 Resolved: 4 10-28-2023 Episodic Other aftercare (20 sources) Long-term current use of anticoagulant; Translations: [assisted (current) use of anticoagulants] Onset: 7 11-01-2023 Episodic Other aftercare (2 sources) assisted (current) use of anticoagulants; Translations: [assisted (current) use of anticoagulants] Onset: 8 Episodic Other connective tissue disease (16 sources) Falls; Translations: [Repeated falls] Onset: 3 10-28-2023 Episodic Other connective tissue disease (16 sources) Neurogenic claudication; Translations: [Other symptoms and signs involving the nervous system] Onset: 4 11-01-2023 Episodic Other connective tissue disease (20 sources) Recurrent falls ; Translations: [Repeated falls] Onset: 3 Resolved: 3 06-17-2023 Episodic Other connective tissue disease (20 sources) Muscle weakness; Translations: [Muscle weakness (generalized)] Onset: 9 Resolved: 3 09-30-2023 Episodic Other connective tissue disease (14 sources) Tear of right rotator cuff; Translations: [Unspecified rotator cuff tear or rupture of right shoulder, not specified as traumatic] Onset: 2 09-30-2023 Episodic Other connective tissue disease (1 source) Unspecified disorder of synovium and tendon, right shoulder; Translations: [Unspecified disorder of synovium and tendon, right shoulder] Onset: 4 Episodic Other connective tissue disease (1 source) Pain in lower limb Onset: 5 Episodic Other ear and sense organ disorders (20 sources) Tinnitus; Translations: [Tinnitus, unspecified ear] Onset: 3 Resolved: 3 10-28-2023 Episodic Other eye disorders (20 sources) Tear film insufficiency; Translations: [Dry eye syndrome of unspecified lacrimal gland] Onset: 6 Resolved: 3 10-28-2023 Episodic Other eye disorders (1 source) Dry eyes; Translations: [Dry eye syndrome of bilateral lacrimal glands] 12-18-2023 Episodic Other gastrointestinal disorders (20 sources) History of bariatric surgical procedure; Translations: [Bariatric surgery status] Onset: 9 Resolved: 3 11-01-2023 Episodic Other hematologic conditions (14 sources) ESR raised; Translations: [Elevated erythrocyte sedimentation rate] Onset: 9 09-30-2023 Episodic Other hematologic conditions (1 source) History of anemia; Translations: [Personal history of diseases of the blood and blood-forming organs and certain disorders involving the immune mechanism] 10-27-2023 Episodic Other hematologic conditions (1 source) Personal history of diseases of the blood and blood-forming organs and certain disorders involving the immune mechanism; Translations: [Personal history of diseases of the blood and blood-forming organs and certain disorders involving the immune mechanism] Onset: 4 Episodic Other injuries and conditions due to external causes (20 sources) Conjunctival foreign body; Translations: [Foreign body in conjunctival sac, left eye, initial encounter] Onset: 6 Resolved: 4 11-01-2023 Episodic Other lower respiratory disease (1 source) Other forms of dyspnea; Translations: [OTHER FORMS OF DYSPNEA] Onset: 8 Episodic Other lower respiratory disease (14 sources) Dyspnea; Translations: [Dyspnea, unspecified] Onset: 3 09-30-2023 Episodic Other nervous system disorders (20 sources) Disorder of muscle; Translations: [Myopathy, unspecified] Onset: 9 Resolved: 3 08-10-2023 Chronic Other nervous system disorders (20 sources) Magnetic resonance imaging of brain abnormal; Translations: [White matter disease, unspecified] Onset: 9 Resolved: 3 10-28-2023 Episodic Other nervous system disorders (20 sources) Abnormal gait; Translations: [Unspecified abnormalities of gait and mobility] Onset: 8 11-01-2023 Episodic Other nervous system disorders (16 sources) White matter disease; Translations: [White matter disease, unspecified] Onset: 3 06-17-2023 Episodic Other nervous system disorders (16 sources) Impairment of balance; Translations: [Other abnormalities of gait and mobility] Onset: 3 06-17-2023 Episodic Other non-traumatic joint disorders (20 sources) Rotator cuff arthropathy of right shoulder; Translations: [Other specific arthropathies, not elsewhere classified, right shoulder] Onset: 9 Resolved: 3 08-10-2023 Chronic Other non-traumatic joint disorders (20 sources) Pain in right shoulder; Translations: [Pain in joint, shoulder region] Onset: 9 Resolved: 3 11-01-2023 Episodic Other non-traumatic joint disorders (10 sources) Pain in left shoulder; Translations: [Pain in joint, shoulder region] Onset: 9 05-19-2024 Episodic Other non-traumatic joint disorders (2 sources) Knee pain Onset: 5 Episodic Other nutritional; endocrine; and metabolic disorders (20 sources) Severe obesity; Translations: [Morbid (severe) obesity due to excess calories] Onset: 8 Resolved: 0 08-10-2020 Chronic Other nutritional; endocrine; and metabolic disorders (1 source) H/O: raised blood lipids; Translations: [Personal history of other endocrine, nutritional and metabolic disease] 10-27-2023 Episodic Other nutritional; endocrine; and metabolic disorders (1 source) Personal history of other endocrine, nutritional and metabolic disease; Translations: [Personal history of other endocrine, nutritional and metabolic disease] Onset: 4 Episodic Other screening for suspected conditions (not mental disorders or infectious disease) (20 sources) Prolonged QT interval; Translations: [Abnormal electrocardiogram [ECG] [EKG]] Onset: 9 Resolved: 3 11-01-2023 Episodic Residual codes; unclassified (3 sources) Other amnesia; Translations: [OTHER AMNESIA] Onset: 8 Episodic Residual codes; unclassified (20 sources) H/O: endocrine disorder; Translations: [Personal history of other specified conditions] Onset: 9 11-01-2023 Episodic Residual codes; unclassified (20 sources) History of sleeve gastrectomy; Translations: [Acquired absence of stomach [part of]] Onset: 1 11-01-2023 Episodic Residual codes; unclassified (20 sources) Edema; Translations: [Edema, unspecified] Onset: 3 Resolved: 3 09-30-2023 Episodic Residual codes; unclassified (16 sources) Insomnia; Translations: [Insomnia, unspecified] Onset: 2 09-30-2023 Episodic Residual codes; unclassified (1 source) Acquired absence of stomach [part of]; Translations: [Acquired absence of stomach (part of)] Onset: 1 Episodic Unclassified (20 sources) Onset: 7 09-13-2017 Unclassified (3 sources) Closed fracture of proximal end of left tibia 01-18-2025 Unclassified (1 source) 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 01-20-2025 Viral infection (20 sources) Infectious mononucleosis; Translations: [Infectious mononucleosis, unspecified without complication] Onset: 3 Resolved: 4 11-01-2023 Episodic Results Test Name Value Interpretation Reference Range Facility CNOVon 04-26-2025 CNOV Office Visit (NEMN ) -- ALEJANDROKEILA Multani ([id number]) 1955 F [place] Date Time Provider Department 04/26/25 4:15 PM CORNELL ALVA During your visit today, we recorded the following information about you: Pulse Blood pressure Weight Height 65/minute 148/81 104.3 kg 1.651 m Cornell Alva MD 04/28/2025 9:57 AM [facility] FOLLOWUP/ESTABLISHED PATIENT VISIT PRINCIPAL NEUROLOGIC DIAGNOSIS: White matter abnormality MRI brain, Cervical/Thoracic/Lumbar spondylosis, Generalized polyneuropathy DISEASE SUMMARY Date of onset: 2015 (approx) Date of diagnosis of MS: NA Disease course at onset: Progressive without relapses Current disease course: Stable Previous disease therapies: NA Current disease therapy: NA Most recent MRI brain: 09/01/2019 Most recent MRI cervical spine: 04/15/2022 Most recent MRI thoracic spine: 04/15/2022 Most recent MRI lumbar spine: 04/15/2022 CSF: NA JCV serology result and date: MISTY Keila Allen is a 69-year-old female presenting for follow-up on MRI and EMG results, with ongoing issues related to neuropathy and spinal disc herniations. INTERVAL HISTORY: Recording using [employer] software for draft documentation of the visit was discussed with the patient/authorized senior human resources representative; all questions welcomed and answered. Patient/authorized senior human resources representative agreed to proceed Neuropathy: - EMG shows multiple pinched nerves in the lumbosacral region on the right side as well as a generalized polyneuropathy. - Experiencing balance and sensation issues. Spinal Disc Herniations: - MRI from 2021 shows multiple slipped discs along the entire length of the spine, including cervical and thoracic regions. - No signal change within the spinal cord to indicate injury. Physical Therapy: - Undergoing physical therapy for leg recovery. - Recently started weight-bearing exercises. - Using a stand-up walker for support. - Reports progress but has experienced setbacks due to falls and leg infections. Chronic Symptoms: Recurrent falls. No preceding symptoms. Uses a walker. Urinary incontinence. Wears pads daily. Intermittent upper extremity weakness. Occasional difficulty reaching above her head. Some hip weakness. Difficulty getting up when she falls. Lymphedema. Squeezing pain in the feet out of proportion to the level of swelling. Refer to patient-entered data. Usual treating team: No specialty comments available. The patient was last seen 03/23/2024, currently Not on DMT. Since the patient's last visit the patient reports overall feeling stable. Issues with current therapy: Not currently on disease modifying therapy. Neuro-QoL Functions (higher=better functioning) Flowsheet Row Office Visit from 03/23/2024 in [facility] Upper Extremity Domain T Score 37.5 Lower Extremity Domain T Score 34.54 Cognitive Function Domain T Score 41.16 Positive Affect Well Being T Score -- Ability To Participate In Social Roles T Score 38.47 Satisfaction With Social Roles T Score 35.2 Neuro-QoL Symptoms (higher=worse symptoms) Flowsheet Row Office Visit from 03/23/2024 in [facility] Sleep Domain T Score 71.41 Fatigue Domain T Score 66.56 Anxiety Domain T Score 58.33 Depression Domain T Score 53.76 Stigma Domain T Score 51.47 Emotional Behavior Dyscontrol T Score -- has no past medical history on file. has a current medication list which includes the following prescription(s): warfarin, oxybutynin er, cyanocobalamin, rosuvastatin, furosemide, losartan, amlodipine, hydralazine, ezetimibe, duloxetine dr, aspirin, enteric coated, acetaminophen 325 mg-caffeine 40 mg-butalbital 50 mg, cinnamon bark, famotidine, flecainide, fluoxetine, gabapentin, magnesium, metoprolol succinate er, omega-3/dha/epa/fish oil, 078-vylv-guouv acid, vit c,f-vr-mfstc-lutein-zeaxan , rosuvastatin, solifenacin, topiramate, warfarin, and warfarin. EXAM: BP 148/81 Pulse 65 Ht 165.1 cm (5' 5 ) Wt 104.3 kg (230 lb) BMI 38.27 kg/m? MSPT Results Flowsheet Row Office Visit from 03/23/2024 in [facility] Processing Speed Total Number Correct 42 Processing Speed Z score 0.5 Dominant hand Right hand MDT Left Hand Time 27.56 MDT Right Hand Time 27.75 Walking Speed Test (25 feet) 12.98 Memory Z Score -- Hair, skin, nails, and joints were normal. Prominent lymphedema in the bilateral lower extremities. Neck was supple without Lhermitte's phenomenon. The patient was alert and oriented to person, place, and time with normal language, attention and concentration, recent and remote memory, praxis, and intellectual function. Affect was normal. The patient did not appear depressed. RESULTS: 05/04/2024 EMG: generalized sensorimotor axonal polyneuropathy, chronic right L3-S1 radiculopathy 05/02/2024 7T MRI Brain WWO IVCON: IMPRESSION: Scattered intracranial white m (more content not included)... Normal [facility] XR TIBIA FIBULA LT MIN 2 VWS on 04-18-2025 XR TIBIA FIBULA LT MIN 2 VWS Normal [facility] 36on 04-12-2025 36 Vm was left with information Normal [facility] 36on 04-11-2025 36 Please inform the stalin hamilton that her CRP is within normal. Her white blood cell count is within normal, as well. Normal [facility] 36 Please fax my note t o the patient's [facility] facility. Normal [facility] C-REACTIVE PROTEINon 025 C REACTIVE PROTEIN 0.1 mg/dL Normal <=0.7 [facility] Comment on above: Performed By: #### C ####[facility] (TT)[address], [place] [address] VIR CBC WITH AUTO DIFFERENTIALon 04-11-2025 BASOPHILS ABSOLUTE COUNT (10*3/UL) BY AUTOMATED COUNT 0.1 10*3/uL Normal 0.0-0.2 [facility] Comment on above: Performed By: #### C BCA ####[facility] ([facility])[address], [place] [address] VIR BASOPHILS RELATIVE PERCENT BY AUTOMATED COUNT 1.0 % Normal [facility] Comment on above: Performed By: #### C BCA ####[facility] ([facility])[address], [place] [address] VIR CELLAVISION DIFFERENTIAL TYPE AUTOMATED DIFFERENTIAL Normal [facility] Comment on above: Performed By: #### C BCA ####[facility] ([facility])[address], [place] [address] VIR Eosinophils (Bld) [#/Vol] 0.2 10*3/uL Normal 0.0-0.4 [facility] Comment on above: Performed By: #### C BCA ####[facility] ([facility])[address], [place] [address] VIR EOSINOPHILS RELATIVE PERCENT BY AUTOMATED COUNT 3.4 % Normal [facility] Comment on above: Performed By: #### C BCA ####[facility] ([facility])[address], [place] [address] VIR Erythrocyte distribution width (RBC) [Ratio] 15.2 % High 11.5-15 [facility] Comment on above: Performed By: #### C BCA ####[facility] ([facility])[address], [place] [address] VIR Hematocrit (Bld) [Volume fraction] 36.9 % Normal 35-47 [facility] Comment on above: Performed By: #### C BCA ####[facility] ([facility])[address], [place] [address] VIR Hemoglobin (Bld) [Mass/Vol] 12.0 g/dL Normal 11.7-15.5 [facility] Comment on above: Performed By: #### C BCA ####[facility] ([facility])[address], [place] [address] VIR LYMPHOCYTES ABSOLUTE COUNT (10*3/UL) BY AUTOMATED COUNT 0.9 10*3/uL Low 1.0-3.5 [facility] Comment on above: Performed By: #### C BCA ####[facility] ([facility])[address], [place] [address] VIR LYMPHOCYTES RELATIVE PERCENT BY AUTOMATED COUNT 14.8 % Normal [facility] Comment on above: Performed By: #### C BCA ####[facility] ([facility])[address], [place] [address] VIR MCH (RBC) [Entitic mass] 30.2 pg Normal 27-34 [facility] Comment on above: Performed By: #### C BCA ####[facility] ([facility])[address], [place] [address] VIR MCHC (RBC) [Mass/Vol] 32.5 g/dL Normal 32-36 [facility] Comment on above: Performed By: #### C BCA ####[facility] ([facility])[address], [place] [address] VIR MCV (RBC) [Entitic vol] 93 fL Normal 80-100 [facility] Comment on above: Performed By: #### C BCA ####[facility] ([facility])[address], [place] [address] VIR MONOCYTES ABSOLUTE COUNT (10*3/UL) BY AUTOMATED COUNT 0.4 10*3/uL Normal 0.0-0.9 [facility] Comment on above: Performed By: #### C BCA ####[facility] ([facility])[address], [place] [address] VIR MONOCYTES RELATIVE PERCENT BY AUTOMATED COUNT 6.6 % Normal [facility] Comment on above: Performed By: #### C BCA ####[facility] ([facility])[address], [place] [address] VIR NEUTROPHILS ABSOLUTE COUNT BY AUTOMATED COUNT 4.5 10*3/uL Normal 1.5-6.6 [facility] Comment on above: Performed By: #### C BCA ####[facility] ([facility])[address], [place] [address] VIR NEUTROPHILS RELATIVE PERCENT BY AUTOMATED COUNT 74.2 % Normal [facility] Comment on above: Performed By: #### C BCA ####[facility] ([facility])[address], [place] [address] VIR Platelet mean volume (Bld) [Entitic vol] 7.1 fL Normal 7-12 [facility] Comment on above: Performed By: #### C BCA ####[facility] ([facility])[address], [place] [address] VIR Platelets (Bld) [#/Vol] 226 10*3/uL Normal 150-450 [facility] Comment on above: Performed By: #### C BCA ####[facility] ([facility])[address], [place] [address] VIR RBC COUNT 3.98 X10E12/L Normal 3.8-5.2 [facility] Comment on above: Performed By: #### C BCA ####[facility] ([facility])[address], [place] [address] VIR WBC (Bld) [#/Vol] 6.1 10*3/uL Normal 4-11 [facility] Comment on above: Performed By: #### C BCA ####[facility] ([facility])[address], [place] [address] VIR Consulton 04-11-2025 Consult [id number] Keila Allen 1955 F Date Provider Department [place] 04/11/2025 ELISE HUERTAS [facility] No family history on file Level of Service:03900 DC OFFICE/OUTPATIENT NEW MODERATE MDM 45 MINUTES Reason for Visit and Comments: New Patient [632] Normal [facility] Telephoneon 04-11-2025 Telephone [phone] Keila Allen 1955 F Date Provider Department [place] 04/11/2025 ELISE HUERTAS [facility] No family history on file Normal [facility] BI MAMMOGRAM SCREENING TOMOS YNTHESIS BILATERALon 04-10-2025 BI MAMMOGRAM SCREENING TOMOSYNTHESIS BILATERAL This is a summary report. The complete report is available in the patient's medical record. If you cannot access the medical record, please contact the sending organization for a detailed fax or copy. Examination: BI MAMMOGRAM SCREENING TOMOSYNTHESIS BILATERAL Clinical History: screening mammogram Technique: Screening digital mammography study of both breasts was performed with 2-D and 3-D tomosynthesis imaging. Study was compared to the diagnostic mammogram study of the breasts dated 02/09/2024 and ultrasound study of the left breast dated 02/09/2024. Findings: There is no evidence of interval dominant spiculated mass, grouped microcalcifications, or skin thickening which would be suggestive of malignancy. Coarse benign-appearing calcification is seen in the left breast superolaterally, similar to the prior study. Post biopsy clip is seen in this area similar to the prior exam. A few scattered benign-appearing calcifications are noted bilaterally. A few small axillary lymph nodes are suggested on the right which appear grossly unremarkable. IMPRESSION: Impression: No specific evidence of malignancy seen in either breast. BIRADS 2 - Benign Findings DENSITY: The breasts are almost entirely fatty. FOLLOW-UP: Routine Screening Mammogram ELECTRONICALLY SIGNED BY: Patricio Britton M.D. Normal Not Available DEXA BONE DENSITYon 04-10-20 25 DEXA BONE DENSITY Examination: DEXA FERNANDO NE DENSITY Clinical History: menopause, osteoporosis screening Technique: Bone density study was performed. T score values for the lumbar spine, right femoral neck and left femoral neck were obtained. Comparison: None Findings: Value for the lumbar spine from L1-L4 is -0.1. Value for the right femoral neck is -3.5. Value for the left femoral neck is -4.0. Findings are compatible with osteoporosis with high increased fracture risk. IMPRESSION: Impression: Findings compatible with osteoporosis with high increased fracture risk. ELECTRONICALLY SIGNED BY: Patricio Britton M.D. Normal Not Available 36on 03-27-2025 36 This patient is sche duled tomorrow. She is a new patient but is in a 20-minute slot. Normal [facility] Telephoneon 03-27-2025 Telephone [id number] Keila Allen 1955 F Date Provider Department [place] 03/27/2025 ELISE HUERTAS [facility] No family history on file Normal [facility] 36on 03-13-2025 36 Patient called in to schedule new patient appointment, transferred to [facility] for scheduling Normal [facility] 36on 03-10-2025 36 Left vm for pt to re turn to schedule appt Normal [facility] Telephoneon 03-10-2025 Telephone [phone] Keila Allen 1955 F Date Provider Department [place] 03/10/2025 JACK CANDELARIO [facility] No family history on file Normal [facility] XR FEMUR LT 2+ VIEWSon 03-06 XR FEMUR LT 2+ VIEWS Normal [facility] XR TIBIA FIBULA LT MIN 2 VWS on 03-06-2025 XR TIBIA FIBULA LT MIN 2 VWS Normal [facility] ANAEROBIC CULTUREon 03-02-20 25 ANAEROBIC CULTURE Susceptible [facility] Comment on above: Performed By: #### A NAC ####[facility] ([facility])[address] [address] VIR ASPIRATE CULTURE INCLUDES GR AM STAINon 03-02-2025 ASPIRATE CULTURE INCLUDES GRAM STAIN CULTURE RESULTS CORYNEBACTERIUM STRIATUM Rare Corynebacterium striatum GRAM STAIN 0 to 1 White Blood Cells/LPF 0 Squamous Epithelial Cells/LPF No organisms seen Normal [facility] Comment on above: Performed By: #### A SPCUL ####[facility] ([facility])[address] [facility] [address], [place] [address] VIR FUNGAL CULTURE INCLUDES ZULEYMA AL SMEARon 03-02-2025 FUNGAL CULTURE INCLUDES FUNGAL SMEAR CULTURE RESULTS NO FUNGUS ISOLATED AFTER 4 WEEKS FUNGAL SMEAR No fungal elements seen On Direct Smear Normal [facility] Comment on above: Performed By: #### F DARWIN ####[facility] ([facility])[address] [place] [address] VIR XR TIBIA FIBULA LT MIN 2 VWS on 02-01-2025 XR TIBIA FIBULA LT MIN 2 VWS Normal [facility] US.doppler Lower extremity v ein - bilateralon 01-31-2025 Right: Limited visualization of the posterior tibial and peroneal veins in the calf due to edema. Remaining visualized deep venous segments are compressible with spontaneous phasic spectral Doppler waveforms. Superficial veins are compressible. Left: Non-visualization of the posterior tibial and peroneal veins in the calf due to edema. Remaining visualized deep venous segments are compressible with spontaneous phasic spectral Doppler waveforms. Superficial veins are compressible. General: Incidental finding of left small hypoechoic lobulated mass without color flow in the distal medial/anteromedial calf near sutures. Conclusions: BILATERAL: NO EVIDENCE of deep or superficial vein thrombosis of the lower extremities with limited visualization of lower extremity vein segments as described above.Incidental finding of left small hypoechoic lobulated mass without color flow in the distal medial/anteromedial calf near sutures. Recommendations: Any questions prior to finalization, please call the reading physician during normal business hours at the phone number beside their name. PM CARDIOVASCULAR Terrell Perez MD - 01/31/2025 Right: Limited visualization of the posterior tibial and peroneal veins in the calf due to edema. Remaining visualized deep venous segments are compressible with spontaneous phasic spectral Doppler waveforms. Superficial veins are compressible. Left: Non-visualization of the posterior tibial and peroneal veins in the calf due to edema. Remaining visualized deep venous segments are compressible with spontaneous phasic spectral Doppler waveforms. Superficial veins are compressible. General: Incidental finding of left small hypoechoic lobulated mass without color flow in the distal medial/anteromedial calf near sutures. Conclusions: BILATERAL: NO EVIDENCE of deep or superficial vein thrombosis of the lower extremities with limited visualization of lower extremity vein segments as described above.Incidental finding of left small hypoechoic lobulated mass without color flow in the distal medial/anteromedial calf near sutures. Recommendations: Any questions prior to finalization, please call the reading physician during normal business hours at the phone number beside their name. [facility] Radiology Study observation (narrative) [facility] US.doppler Lower extremity v ein - bilateralOrdered By: Terrell Perez on 01-31-2025 [facility] Work Phone: BASIC METABOLIC PANLon 01-18 Anion gap [Moles/Vol] 8 mmol/L Normal 5-15 [facility] Comment on above: Performed By: #### C BCA, PINR, BMP, , 4679-7 ####[facility] ([id number])[address] [address] Calcium [Mass/Vol] 8.5 mg/dL Normal 8.5-10.5 [facility] Comment on above: Performed By: #### C BCA, PINR, BMP, , 4679-7 ####[facility] ([id number])[address] [address] Chloride [Moles/Vol] 111 mmol/L High 98-109 [facility] Comment on above: Performed By: #### C BCA, PINR, BMP, , 4679-7 ####[facility] ([id number])[address] [place] [address] CO2 [Moles/Vol] 25 mmol/L Normal 22-32 [facility] Comment on above: Performed By: #### C BCA, PINR, BMP, , 4679-7 ####[facility] ([id number])[address] [place] [address] Creatinine [Mass/Vol] 1.55 mg/dL High 0.40-1.00 [facility] Comment on above: METHOD TRACEABLE TO IDMS STANDARD Result Comment: METH OD TRACEABLE TO IDMS STANDARD Performed By: #### C BCA, PINR, BMP, , 7 ####[facility] ([id number])[address], [place] [address] Glucose [Mass/Vol] 85 mg/dL Normal 65-99 [facility] Comment on above: Performed By: #### C BCA, PINR, BMP, , 4678-7 ####[facility] ([id number])[address] [address] [address] Potassium [Moles/Vol] 4.9 mmol/L Normal 3.5-5.0 [facility] Comment on above: Performed By: #### C BCA, PINR, BMP, , 4678-7 ####[facility] ([id number])[address] [address] [address] Sodium [Moles/Vol] 144 mmol/L Normal 134-146 [facility] Comment on above: Performed By: #### C BCA, PINR, BMP, , 46-7 ####[facility] ([id number])[address] [address] [address] Urea nitrogen [Mass/Vol] 32 mg/dL High 5-27 [facility] Comment on above: Performed By: #### C BCA, PINR, BMP, , 46-7 ####[facility] ([id number])[address] [address] [address] GFR/1.73 sq M.predicted among non-blacks MDRD (S/P/Bld) [Vol rate/Area] 36 mL/min/{1.73_m2} Low >59 [facility] Comment on above: Result Comment: Repo rted eGFR is based on theCKD-EPI 2020 equation that doesnot use a race coefficient. Performed By: #### C BCA, PINR, BMP, , 7 ####[facility] ([id number])[address] [address] Basic Metabolic Panelon 12-28 eGFR (CKD-EPI)non-race dependent 36 Low - PINF [facility] Comment on above: Reported eGFR is based on the CKD-EPI 2020 equation that does not use a race coefficient. Interpretation and review of laboratory results Abnormal [facility] CBC AND AUTO DIFFon 01-19-20 25 Band form neutrophils/100 WBC (Bld) 1.9 % Normal [facility] Comment on above: Performed By: #### C BCA, PINR, BMP, , 7 ####[facility] ([id number])[address] [address] Eosinophils (Bld) [#/Vol] 0.2 10*3/uL Normal 0.0-0.4 [facility] Comment on above: Performed By: #### C BCA, PINR, BMP, , 4679-7 ####[facility] ([id number])[address] [address] Eosinophils/100 WBC (Bld) 1.9 % Normal [facility] Comment on above: Performed By: #### C BCA, PINR, BMP, , 7 ####[facility] ([id number])[address] [address] Erythrocyte distribution width (RBC) [Ratio] 15.7 % High 11.5-15.0 [facility] Comment on above: Performed By: #### C BCA, PINR, BMP, , 7 ####[facility] ([id number])[address] [address] Hematocrit (Bld) [Volume fraction] 24.3 % Low 35-47 [facility] Comment on above: Performed By: #### C BCA, PINR, BMP, , 467 ####[facility] ([id number])[address] [place] [address] Hemoglobin (Bld) [Mass/Vol] 8.1 g/dL Low 11.7-15.5 [facility] Comment on above: Performed By: #### C BCA, PINR, BMP, , 4679-03 ####[facility] ([id number])[address], [address] [place] [address] Lymphocytes (Bld) [#/Vol] 0.9 10*3/uL Low 1.0-3.5 [facility] Comment on above: Performed By: #### C BCA, PINR, BMP, , 4679-03 ####[facility] ([id number])[address] [address] [place] [address] Lymphocytes/100 WBC (Bld) 10.6 % Normal [facility] Comment on above: Performed By: #### C BCA, PINR, BMP, , 467 ####[facility] ([id number])[address] [address] [place] [address] MCH (RBC) [Entitic mass] 31.2 pg Normal 27-34 [facility] Comment on above: Performed By: #### C BCA, PINR, BMP, , 467 ####[facility] ([id number])[address] [address] [address] MCHC (RBC) [Mass/Vol] 33.6 g/dL Normal 32-36 [facility] Comment on above: Performed By: #### C BCA, PINR, BMP, , [address] ####[facility] ([id number])[address] [address] [place] [address] MCV (RBC) [Entitic vol] 93 fL Normal 80-100 [facility] Comment on above: Performed By: #### C BCA, PINR, BMP, , 7 ####[facility] ([id number])[address] [address] [place] [address] Monocytes (Bld) [#/Vol] 0.4 10*3/uL Normal 0-0.9 [facility] Comment on above: Performed By: #### C BCA, PINR, BMP, , 4678- ####[facility] ([id number])[address] [address] Monocytes/100 WBC (Bld) 4.8 % Normal [facility] Comment on above: Performed By: #### C BCA, PINR, BMP, , 4678-7 ####[facility] ([id number])[address] [address] [place] [address] Platelet mean volume (Bld) [Entitic vol] 7.8 fL Normal 7-12 [facility] Comment on above: Performed By: #### C BCA, PINR, BMP, , 467 ####[facility] ([id number])[address] [address] Platelets (Bld) [#/Vol] 173 10*3/uL Normal 150-450 [facility] Comment on above: Performed By: #### C BCA, PINR, BMP, , 46-7 ####[facility] ([id number])[address] [address] MYELOCYTE 1.0 % Normal [facility] Comment on above: Performed By: #### C BCA, PINR, BMP, , 46-7 ####[facility] ([id number])[address] [address] [place] [address] Neutrophils (Bld) [#/Vol] 7.0 10*3/uL High 1.5-6.6 [facility] Comment on above: Performed By: #### C BCA, PINR, BMP, , 4679-03 ####[facility] ([id number])[address], [address] [place] [address] NUCLEATED RBC 3.8 /100 WBC High 0.0-1.0 [facility] Comment on above: Performed By: #### C BCA, PINR, BMP, , 4679-03 ####[facility] ([id number])[address], [address] [place] [address] POLYCHROMASIA 1+ Abnormal NONE [facility] Comment on above: Performed By: #### C BCA, PINR, BMP, , 4679-03 ####[facility] ([id number])[address], [address] [place] [address] RBC COUNT 2.61 X10E12/L Low 3.80-5.20 [facility] Comment on above: Performed By: #### C BCA, PINR, BMP, , 4679-03 ####[facility] ([id number])[address], [address] [place] [address] SEG NEUTROPHIL 79.8 % Normal [facility] Comment on above: Performed By: #### C BCA, PINR, BMP, , 4679-03 ####[facility] ([id number])[address], [address] [place] [address] WBC (Bld) [#/Vol] 8.5 10*3/uL Normal 4.0-11.0 [facility] Comment on above: Performed By: #### C BCA, PINR, BMP, , 4679-03 ####[facility] ([id number])[address] [facility] [address] [place] [address] CBC auto differentialon 12-28 Interpretation and review of laboratory results Abnormal [facility] Myelocytes/100 WBC (Bld) 1 % [facility] Neutrophils (Bld) [#/Vol] 7 10*3/uL High [facility] Nucleated RBC/100 WBC (Bld) [Ratio] 3.8 % High [facility] Polychromasia LM Ql (Bld) 1+ Abnormal NONE^NONE [facility] RBC (Bld) [#/Vol] 2.61 10*6/uL Low [facility] Segmented neutrophils/100 WBC (Bld) 79.8 % [facility] WBC corrected for nucl RBC Auto (Bld) [#/Vol] 8.5 [facility] Copper, Son 01-18-2025 Copper [Mass/Vol] 110 [employer] [facility] Comment on above: NOTE ADDITIONAL INFORMATION This test was developed and its performance characteristics determined by [facility] in a manner consistent with CLIA requirements. This test has not been cleared or approved by the U.S. Food and Drug Administration. Test Performed by: [facility] - [facility] [address] [place] [address] Glass Silverer: George Vale Ph.D.; CLIA# [id number] Laboratory - Chemistry and C hemistry - challengeon 01-18-2025 Magnesium [Mass/Vol] 1.8 mg/dL Normal 1.8-2.6 [facility] Comment on above: Performed By: #### C BCA, PINR, BMP, 22599-9, 4679-7 ####[facility] ([id number])[address] [facility], [address] [place] [address] No Panel Informationon 01-18 [facility] PROTIME AND INRon 01-18-2025 INR Coag (PPP) [Relative time] 2.9 {INR} High 0.9-1.2 [facility] Comment on above: Performed By: #### C TALIA, PINR, BMP, , 4679-7 ####[facility] ([id number])[address], [address] [place] [address] PT Coag (PPP) [Time] 33.4 s High 9.8-13.2 [facility] Comment on above: Performed By: #### C TALIA, PINR, MAGALY, , 4679-7 ####[facility] ([id number])[address] [address] Protime & INRon 01-18-2025 Interpretation and review of laboratory results Abnormal [facility] Reticulocyteson 01-18-2025 Reticulocytes/100 RBC (Bld) 2.7 % High 0.4 - 2.2 % [facility] Reticulocytes/100 RBC (Bld)o n 01-18-2025 Interpretation and review of laboratory results Abnormal [facility] RETICULOCYTE COUNT 2.7 % High 0.4-2.2 [facility] Comment on above: Performed By: #### C TALIA, PINR, BMP, , 4679-7 ####[facility] ([id number])[address], [address] [place] [address] Zinc [Mass/Vol]on 01-18-2025 Interpretation and review of laboratory results Abnormal [facility] Zinc, Serumon 01-18-2025 Zinc [Mass/Vol] 49 Low [facility] Comment on above: NOTE ADDITIONAL INFORMATION This test was developed and its performance characteristics determined by [facility] in a manner consistent with CLIA requirements. This test has not been cleared or approved by the U.S. Food and Drug Administration. Test Performed by: [facility] - [address] [address] Glass Silverer: George Vale Ph.D.; CLIA# [id number] BASIC METABOLIC PANLon 01-17 Anion gap [Moles/Vol] 8 mmol/L Normal 5-15 [facility] Comment on above: Performed By: #### C BCA, BMP ####[facility] ([id number])[address] [address], [place] [address] Calcium [Mass/Vol] 8.9 mg/dL Normal 8.5-10.5 [facility] Comment on above: Performed By: #### C BCA, BMP ####[facility] ([id number])[address] [address] [address] Chloride [Moles/Vol] 108 mmol/L Normal 98-109 [facility] Comment on above: Performed By: #### C BCA, BMP ####[facility] ([id number])[address] [address], [place] [address] CO2 [Moles/Vol] 25 mmol/L Normal 22-32 [facility] Comment on above: Performed By: #### C BCA, BMP ####[facility] ([id number])[address] [address], [place] [address] Creatinine [Mass/Vol] 1.62 mg/dL High 0.40-1.00 [facility] Comment on above: Result Comment: METH OD TRACEABLE TO IDMS STANDARD Performed By: #### C BCA, BMP ####[facility] ([id number])[address] [address], [place] [address] GFR/1.73 sq M.predicted among non-blacks MDRD (S/P/Bld) [Vol rate/Area] 34 mL/min/{1.73_m2} Low >59 [facility] Comment on above: Result Comment: Repo rted eGFR is based on theCKD-EPI 2020 equation that doesnot use a race coefficient. Performed By: #### C BCA, BMP ####[facility] ([id number])[address] [address] [place] [address] Glucose [Mass/Vol] 146 mg/dL High 65-99 [facility] Comment on above: Performed By: #### C BCA, BMP ####[facility] ([id number])[address] [address] [place] [address] Potassium [Moles/Vol] 4.2 mmol/L Normal 3.5-5.0 [facility] Comment on above: Performed By: #### C BCA, BMP ####[facility] ([id number])[address], [address] [place] [address] Sodium [Moles/Vol] 141 mmol/L Normal 134-146 [facility] Comment on above: Performed By: #### C BCA, BMP ####[facility] ([id number])[address] [address] [place] [address] Urea nitrogen [Mass/Vol] 39 mg/dL High 5-27 [facility] Comment on above: Performed By: #### C BCA, BMP ####[facility] ([id number])[address] [address] Bacteria identified Cx Nom ( U)on 01-17-2025 Interpretation and review of laboratory results Abnormal [facility] Service comment (Unsp spec) [Interp] 50,000 to 100,000 ORGANISMS/mL KLEBSIELLA PNEUMONIAE Abnormal [facility] Basic Metabolic Panelon - Anion gap [Moles/Vol] 8 mmol/L 5 - 15 mmol/L [facility] Calcium [Mass/Vol] 8.9 mg/dL 8.5 - 10. 5 mg/dL [facility] Chloride [Moles/Vol] 108 mmol/L 98 - 109 mmol/L [facility] CO2 [Moles/Vol] 25 mmol/L 22 - 32 mmol/L [facility] Creatinine [Mass/Vol] 1.62 mg/dL High 0.40 - 1.00 mg/dL [facility] Comment on above: METHOD TRACEABLE TO IDKS STANDARD eGFR (CKD-EPI)non-race dependent 34 Low - PINF [facility] Comment on above: Reported eGFR is based on the CKD-EPI 2020 equation that does not use a race coefficient. Glucose [Mass/Vol] 146 mg/dL High 65 - 99 mg/dL [facility] Interpretation and review of laboratory results Abnormal [facility] Potassium [Moles/Vol] 4.2 mmol/L 3.5 - 5.0 mmol/L [facility] Sodium [Moles/Vol] 141 mmol/L 134 - 146 mmol/L [facility] Urea nitrogen [Mass/Vol] 39 mg/dL High 5 - 27 mg/dL [facility] CBC AND AUTO DIFFon 01-18-20 25 Band form neutrophils/100 WBC (Bld) 2.0 % Normal [facility] Comment on above: Performed By: #### C TALIA, BMP ####[facility] ([id number])[address] [address] Erythrocyte distribution width (RBC) [Ratio] 15.6 % High 11.5-15.0 [facility] Comment on above: Performed By: #### C TALIA, BMP ####[facility] ([id number])[address] [address] Hematocrit (Bld) [Volume fraction] 24.2 % Low 35-47 [facility] Comment on above: Performed By: #### C BCA, BMP ####[facility] ([id number])[address] [address] Hemoglobin (Bld) [Mass/Vol] 8.2 g/dL Low 11.7-15.5 [facility] Comment on above: Performed By: #### C BCA, BMP ####[facility] ([id number])[address] [address] Lymphocytes (Bld) [#/Vol] 0.6 10*3/uL Low 1.0-3.5 [facility] Comment on above: Performed By: #### C TALIA, BMP ####[facility] ([id number])[address], [address] [address] Lymphocytes/100 WBC (Bld) 8.0 % Normal [facility] Comment on above: Performed By: #### C TALIA, BMP ####[facility] ([id number])[address], [address] [address] MCH (RBC) [Entitic mass] 31.4 pg Normal 27-34 [facility] Comment on above: Performed By: #### C TALIA, BMP ####[facility] ([id number])[address], [address] [address] MCHC (RBC) [Mass/Vol] 33.8 g/dL Normal 32-36 [facility] Comment on above: Performed By: #### C TALIA, BMP ####[facility] ([id number])[address], [address] [place] [address] MCV (RBC) [Entitic vol] 93 fL Normal 80-100 [facility] Comment on above: Performed By: #### C TALIA, BMP ####[facility] ([id number])[address] [address] [place] [address] Metamyelocytes/100 WBC (Bld) 1.0 % Normal [facility] Comment on above: Performed By: #### C TALIA, BMP ####[facility] ([id number])[address] [address] [place] [address] Monocytes (Bld) [#/Vol] 0.3 10*3/uL Normal 0-0.9 [facility] Comment on above: Performed By: #### C TALIA, BMP ####[facility] ([id number])[address], [address] [address] Monocytes/100 WBC (Bld) 4.0 % Normal [facility] Comment on above: Performed By: #### C TALIA, BMP ####[facility] ([id number])[address], [address], [place] [address] MYELOCYTE 1.0 % Normal [facility] Comment on above: Performed By: #### C TALIA, BMP ####[facility] ([id number])[address], [address] [address] Neutrophils (Bld) [#/Vol] 7.0 10*3/uL High 1.5-6.6 [facility] Comment on above: Performed By: #### C TALIA, BMP ####[facility] ([id number])[address], [address] [address] Platelet mean volume (Bld) [Entitic vol] 7.8 fL Normal 7-12 [facility] Comment on above: Performed By: #### C TALIA, BMP ####[facility] ([id number])[address], [address] [place] [address] Platelets (Bld) [#/Vol] 164 10*3/uL Normal 150-450 [facility] Comment on above: Performed By: #### Sara MELGAR, BMP ####[facility] ([id number])[address], [address], [place] [address] POLYCHROMASIA 1+ Abnormal NONE [facility] Comment on above: Performed By: #### C TALIA, BMP ####[facility] ([id number])[address] [address] [place] [address] RBC COUNT 2.60 X10E12/L Low 3.80-5.20 [facility] Comment on above: Performed By: #### Sara MELGAR, BMP ####[facility] ([id number])[address], [address] [address] SEG NEUTROPHIL 84.0 % Normal [facility] Comment on above: Performed By: #### Sara MELGAR, MAGALY ####[facility] ([id number])[address], [address] [address] WBC (Bld) [#/Vol] 8.1 10*3/uL Normal 4.0-11.0 [facility] Comment on above: Performed By: #### Sara MELGAR, BMP ####[facility] ([id number])[address], [address] [address] CBC auto differentialon 12-28 Band form neutrophils/100 WBC (Bld) 2 % [facility] Erythrocyte distribution width (RBC) [Ratio] 15.6 % High 11.5 - 15.0 % [facility] Hematocrit (Bld) [Volume fraction] 24.2 % Low 35 - 47 % [facility] Hemoglobin (Bld) [Mass/Vol] 8.2 g/dL Low 11.7 - 15.5 g/dL [facility] Interpretation and review of laboratory results Abnormal [facility] Lymphocytes (Bld) [#/Vol] 0.6 10*3/uL Low [facility] Lymphocytes/100 WBC (Bld) 8 % [facility] MCH (RBC) [Entitic mass] 31.4 pg 27 - 34 pg [facility] MCHC (RBC) [Mass/Vol] 33.8 g/dL 32 - 36 g/dL [facility] MCV (RBC) [Entitic vol] 93 fL 80 - 100 fL [facility] Metamyelocytes/100 WBC (Bld) 1 % [facility] Monocytes (Bld) [#/Vol] 0.3 10*3/uL [facility] Monocytes/100 WBC (Bld) 4 % [facility] Myelocytes/100 WBC (Bld) 1 % [facility] Neutrophils (Bld) [#/Vol] 7 10*3/uL High [facility] Platelet mean volume (Bld) [Entitic vol] 7.8 fL 7 - 12 fL [facility] Platelets (Bld) [#/Vol] 164 10*3/uL [facility] Polychromasia LM Ql (Bld) 1+ Abnormal NONE^NONE [facility] RBC (Bld) [#/Vol] 2.6 10*6/uL Low [facility] Segmented neutrophils/100 WBC (Bld) 84 % [facility] WBC corrected for nucl RBC Auto (Bld) [#/Vol] 8.1 [facility] Crossmatch RBC:Number of Uni ts: 201-17-2025 BB Type Barcode 600 [facility] Blood component type [id number] [facility] Crossmatch Compatible [facility] Expiration Date [id number] [facility] Status of unit TRANSFUSED [facility] Unit ABO A [facility] Unit number [id number] [facility] RH Negative [facility] PROTIME AND INRon 01-17-2025 INR Coag (PPP) [Relative time] 4.0 {INR} High 0.9-1.2 [facility] Comment on above: Performed By: #### P INR ####[facility] ([id number])[address] [facility] [address] [place] [address] PT Coag (PPP) [Time] 45.0 s High 9.8-13.2 [facility] Comment on above: Performed By: #### P INR ####[facility] ([id number])[address], [address], [place] [address] Protime & INRon 01-17-2025 INR Coag (PPP) [Relative time] 4 {INR} High [facility] Interpretation and review of laboratory results Abnormal [facility] PT Coag (PPP) [Time] 45 s High [facility] BASIC METABOLIC PANLon 01-16 Anion gap [Moles/Vol] 6 mmol/L Normal 5-15 [facility] Comment on above: Performed By: #### C BCA, BMP, PINR ####[facility] ([id number])[address] [address] [place] [address] Calcium [Mass/Vol] 8.5 mg/dL Normal 8.5-10.5 [facility] Comment on above: Performed By: #### C BCA, BMP, PINR ####[facility] ([id number])[address] [address], [place] [address] Chloride [Moles/Vol] 110 mmol/L High 98-109 [facility] Comment on above: Performed By: #### C BCA, BMP, PINR ####[facility] ([id number])[address] [address] [place] [address] CO2 [Moles/Vol] 24 mmol/L Normal 22-32 [facility] Comment on above: Performed By: #### C BCA, BMP, PINR ####[facility] ([id number])[address] [place] [address] Creatinine [Mass/Vol] 1.70 mg/dL High 0.40-1.00 [facility] Comment on above: Result Comment: METH OD TRACEABLE TO IDMS STANDARD Performed By: #### C BCA, BMP, PINR ####[facility] ([id number])[address] [place] [address] GFR/1.73 sq M.predicted among non-blacks MDRD (S/P/Bld) [Vol rate/Area] 32 mL/min/{1.73_m2} Low >59 [facility] Comment on above: Result Comment: Repo rted eGFR is based on theCKD-EPI 2020 equation that doesnot use a race coefficient. Performed By: #### C BCA, BMP, PINR ####[facility] ([id number])[address] [address] [place] [address] Glucose [Mass/Vol] 81 mg/dL Normal 65-99 [facility] Comment on above: Performed By: #### C BCA, BMP, PINR ####[facility] ([id number])[address], [address] [place] [address] Potassium [Moles/Vol] 4.5 mmol/L Normal 3.5-5.0 [facility] Comment on above: Performed By: #### C BCA, BMP, PINR ####[facility] ([id number])[address], [address] [place] [address] Sodium [Moles/Vol] 140 mmol/L Normal 134-146 [facility] Comment on above: Performed By: #### C BCA, BMP, PINR ####[facility] ([id number])[address], [address] [place] [address] Urea nitrogen [Mass/Vol] 44 mg/dL High 5-27 [facility] Comment on above: Performed By: #### C BCA, BMP, PINR ####[facility] ([id number])[address] [address] Basic Metabolic Panelon 04-2 Anion gap [Moles/Vol] 6 mmol/L 5 - 15 mmol/L [facility] Calcium [Mass/Vol] 8.5 mg/dL 8.5 - 10. 5 mg/dL [facility] Chloride [Moles/Vol] 110 mmol/L High 98 - 109 mmol/L [facility] CO2 [Moles/Vol] 24 mmol/L 22 - 32 mmol/L [facility] Creatinine [Mass/Vol] 1.7 mg/dL High 0.40 - 1.00 mg/dL [facility] Comment on above: METHOD TRACEABLE TO IDKS STANDARD eGFR (CKD-EPI)non-race dependent 32 Low - PINF [facility] Comment on above: Reported eGFR is based on the CKD-EPI 2020 equation that does not use a race coefficient. Glucose [Mass/Vol] 81 mg/dL 65 - 99 mg/dL [facility] Interpretation and review of laboratory results Abnormal [facility] Potassium [Moles/Vol] 4.5 mmol/L 3.5 - 5.0 mmol/L [facility] Sodium [Moles/Vol] 140 mmol/L 134 - 146 mmol/L [facility] Urea nitrogen [Mass/Vol] 44 mg/dL High 5 - 27 mg/dL [facility] CBC AND AUTO DIFFon 01-17-20 25 Band form neutrophils/100 WBC (Bld) 1.0 % Normal [facility] Comment on above: Performed By: #### C MAGALY MELGAR, PINR ####[facility] ([id number])[address] [address] Eosinophils (Bld) [#/Vol] 0.1 10*3/uL Normal 0.0-0.4 [facility] Comment on above: Performed By: #### MAGALY Ruiz BCA, PINR ####[facility] ([id number])[address] [address] [place] [address] Eosinophils/100 WBC (Bld) 1.0 % Normal [facility] Comment on above: Performed By: #### MAGALY Ruiz BCA, PINR ####[facility] ([id number])[address] [address] Erythrocyte distribution width (RBC) [Ratio] 15.9 % High 11.5-15.0 [facility] Comment on above: Performed By: #### C TALIA BMP, PINR ####[facility] ([id number])[address] [address] [place] [address] Hematocrit (Bld) [Volume fraction] 22.6 % Low 35-47 [facility] Comment on above: Performed By: #### Sara MELGAR BMP, PINR ####[facility] ([id number])[address] [address] Hemoglobin (Bld) [Mass/Vol] 7.6 g/dL Low 11.7-15.5 [facility] Comment on above: Performed By: #### C TALIA BMP, PINR ####[facility] ([id number])[address], [address] [place] [address] Lymphocytes (Bld) [#/Vol] 1.0 10*3/uL Normal 1.0-3.5 [facility] Comment on above: Performed By: #### C TALIA, BMP, PINR ####[facility] ([id number])[address], [address] [address] Lymphocytes/100 WBC (Bld) 15.0 % Normal [facility] Comment on above: Performed By: #### C TALIA, BMP, PINR ####[facility] ([id number])[address], [address] [address] MCH (RBC) [Entitic mass] 31.2 pg Normal 27-34 [facility] Comment on above: Performed By: #### C TALIA, BMP, PINR ####[facility] ([id number])[address], [address] [place] [address] MCHC (RBC) [Mass/Vol] 33.8 g/dL Normal 32-36 [facility] Comment on above: Performed By: #### C TALIA, BMP, PINR ####[facility] ([id number])[address] [address], [place] [address] MCV (RBC) [Entitic vol] 92 fL Normal 80-100 [facility] Comment on above: Performed By: #### C BCA, BMP, PINR ####[facility] ([id number])[address], [address] [place] [address] Metamyelocytes/100 WBC (Bld) 1.0 % Normal [facility] Comment on above: Performed By: #### C TALIA, BMP, PINR ####[facility] ([id number])[address], [address], [place] [address] Monocytes (Bld) [#/Vol] 0.3 10*3/uL Normal 0-0.9 [facility] Comment on above: Performed By: #### C BCA, BMP, PINR ####[facility] ([id number])[address], [address], [place] [address] Monocytes/100 WBC (Bld) 4.0 % Normal [facility] Comment on above: Performed By: #### C TALIA, BMP, PINR ####[facility] ([id number])[address], [address] [place] [address] MYELOCYTE 2.0 % Normal [facility] Comment on above: Performed By: #### C TALIA, BMP, PINR ####[facility] ([id number])[address], [address] [place] [address] Neutrophils (Bld) [#/Vol] 5.3 10*3/uL Normal 1.5-6.6 [facility] Comment on above: Performed By: #### C TALIA, BMP, PINR ####[facility] ([id number])[address], [address], [place] [address] Platelet mean volume (Bld) [Entitic vol] 7.8 fL Normal 7-12 [facility] Comment on above: Performed By: #### C BCA, BMP, PINR ####[facility] ([id number])[address], [address], [place] [address] Platelets (Bld) [#/Vol] 132 10*3/uL Low 150-450 [facility] Comment on above: Performed By: #### C BCA, BMP, PINR ####[facility] ([id number])[address], [address], [place] [address] RBC COUNT 2.45 X10E12/L Low 3.80-5.20 [facility] Comment on above: Performed By: #### C MAGALY MELGAR, PINR ####[facility] ([id number])[address], [address] [address] RBC morphology finding Nom (Bld) NORMAL Normal [facility] Comment on above: Performed By: #### MAGALY Ruiz BCA, PINR ####[facility] ([id number])[address] [address] SEG NEUTROPHIL 76.0 % Normal [facility] Comment on above: Performed By: #### MAAGLY Ruiz BCA, PINR ####[facility] ([id number])[address] [address] WBC (Bld) [#/Vol] 6.9 10*3/uL Normal 4.0-11.0 [facility] Comment on above: Performed By: #### MAGALY Ruiz BCA, PINR ####[facility] ([id number])[address] [address] CBC auto differentialon 12-28 Band form neutrophils/100 WBC (Bld) 1 % [facility] Eosinophils (Bld) [#/Vol] 0.1 10*3/uL [facility] Eosinophils/100 WBC (Bld) 1 % [facility] Erythrocyte distribution width (RBC) [Ratio] 15.9 % High 11.5 - 15.0 % [facility] Hematocrit (Bld) [Volume fraction] 22.6 % Low 35 - 47 % [facility] Hemoglobin (Bld) [Mass/Vol] 7.6 g/dL Low 11.7 - 15.5 g/dL [facility] Interpretation and review of laboratory results Abnormal [facility] Lymphocytes (Bld) [#/Vol] 1 10*3/uL [facility] Lymphocytes/100 WBC (Bld) 15 % [facility] MCH (RBC) [Entitic mass] 31.2 pg 27 - 34 pg [facility] MCHC (RBC) [Mass/Vol] 33.8 g/dL 32 - 36 g/dL [facility] MCV (RBC) [Entitic vol] 92 fL 80 - 100 fL [facility] Metamyelocytes/100 WBC (Bld) 1 % [facility] Monocytes (Bld) [#/Vol] 0.3 10*3/uL [facility] Monocytes/100 WBC (Bld) 4 % [facility] Myelocytes/100 WBC (Bld) 2 % [facility] Neutrophils (Bld) [#/Vol] 5.3 10*3/uL [facility] Platelet mean volume (Bld) [Entitic vol] 7.8 fL 7 - 12 fL [facility] Platelets (Bld) [#/Vol] 132 10*3/uL Low [facility] Polymorphonuclear cells/100 WBC (Bld) NORMAL [facility] RBC (Bld) [#/Vol] 2.45 10*6/uL Low [facility] Segmented neutrophils/100 WBC (Bld) 76 % [facility] WBC corrected for nucl RBC Auto (Bld) [#/Vol] 6.9 [facility] Copper [Mass/Vol]on 01-17-20 25 Copper, S 110 mcg/dL Normal 77-206 [facility] Comment on above: Result Comment: NOTE ADDITIONAL INFORMATION This test was developed and its performance characteristicsdetermined by [facility] in a manner consistent with CLIArequirements. This test has not been cleared or approved bythe U.S. Food and Drug Administration.Test Performed by:[facility] - [address] [address]Kjl Director: George Vale Ph.D.; CLIA# [id number] Crossmatch RBC:Number of Uni ts: 1on 01-16-2025 BB Type Barcode 6200 [facility] Blood component type [id number] [facility] Crossmatch Compatible [facility] Expiration Date [id number] [facility] Status of unit TRANSFUSED [facility] Unit ABO A [facility] Unit number [id number] [facility] RH Positive [facility] HGBon 01-16-2025 Hematocrit (Bld) [Volume fraction] 21.4 % Low 35-47 [facility] Comment on above: Performed By: #### H H ####[facility] ([id number])[address] [place] [address] Hemoglobin (Bld) [Mass/Vol] 7.2 g/dL Low 11.7-15.5 [facility] Comment on above: Performed By: #### H H ####[facility] ([id number])[address] [place] [address] Hemoglobin and hematocrit, b loodon 01-16-2025 Hematocrit (Bld) [Volume fraction] 21.4 % Low 35 - 47 % [facility] Hemoglobin (Bld) [Mass/Vol] 7.2 g/dL Low 11.7 - 15.5 g/dL [facility] Interpretation and review of laboratory results Abnormal [facility] PROTIME AND INRon 01-16-2025 INR Coag (PPP) [Relative time] 3.6 {INR} High 0.9-1.2 [facility] Comment on above: Performed By: #### C MAGALY MELGAR, PINR ####[facility] ([id number])[address] [place] [address] PT Coag (PPP) [Time] 40.8 s High 9.8-13.2 [facility] Comment on above: Performed By: #### C MAGALY MELGAR, PINR ####[facility] ([id number])[address], [address], [place] [address] Protime & INRon 01-16-2025 INR Coag (PPP) [Relative time] 3.6 {INR} High [facility] Interpretation and review of laboratory results Abnormal [facility] PT Coag (PPP) [Time] 40.8 s High [facility] Zinc [Mass/Vol]on 01-16-2025 Zinc, S 49 mcg/dL Low 60-106 [facility] Comment on above: Result Comment: NOTE ADDITIONAL INFORMATION This test was developed and its performance characteristicsdetermined by [facility] in a manner consistent with CLIArequirements. This test has not been cleared or approved bythe U.S. Food and Drug Administration.Test Performed by:[facility] [place] [address]Vpi Director: George Vale Ph.D.; CLIA# [id number] BASIC METABOLIC PANLon 01-15 Anion gap [Moles/Vol] 8 mmol/L Normal 5-15 [facility] Comment on above: Performed By: #### B KRISTAL PINR ####[facility] ([id number])[address] [address] Calcium [Mass/Vol] 8.2 mg/dL Low 8.5-10.5 [facility] Comment on above: Performed By: #### Hong GIRALDO PINR ####[facility] ([id number])[address], [address] [place] [address] Chloride [Moles/Vol] 111 mmol/L High 98-109 [facility] Comment on above: Performed By: #### Hong GIRALDO PINR ####[facility] ([id number])[address], [address] [place] [address] CO2 [Moles/Vol] 21 mmol/L Low 22-32 [facility] Comment on above: Performed By: #### Hong GIRALDO, PINR ####[facility] ([id number])[address] [address], [place] [address] Creatinine [Mass/Vol] 2.13 mg/dL High 0.40-1.00 [facility] Comment on above: Result Comment: METH OD TRACEABLE TO IDMS STANDARD Performed By: #### B KRISTAL PINR ####[facility] ([id number])[address] [address] [place] [address] GFR/1.73 sq M.predicted among non-blacks MDRD (S/P/Bld) [Vol rate/Area] 24 mL/min/{1.73_m2} Low >59 [facility] Comment on above: Result Comment: Repo rted eGFR is based on theCKD-EPI 2020 equation that doesnot use a race coefficient. Performed By: #### Hong GIRALDO, PINR ####[facility] ([id number])[address] [address] [address] Glucose [Mass/Vol] 117 mg/dL High 65-99 [facility] Comment on above: Performed By: #### Hong GIRALDO PINR ####[facility] ([id number])[address] [address], [place] [address] Potassium [Moles/Vol] 4.6 mmol/L Normal 3.5-5.0 [facility] Comment on above: Performed By: #### Hong GIRALDO, PINR ####[facility] ([id number])[address] [address], [place] [address] Sodium [Moles/Vol] 140 mmol/L Normal 134-146 [facility] Comment on above: Performed By: #### Hong GIRALDO, PINR ####[facility] ([id number])0 [facility] [address], [place] [address] Urea nitrogen [Mass/Vol] 59 mg/dL High 5-27 [facility] Comment on above: Performed By: #### B MP, PINR ####[facility] ([id number])[address], [address] [place] [address] Basic Metabolic Panelon 12-28 Anion gap [Moles/Vol] 8 mmol/L 5 - 15 mmol/L [facility] Calcium [Mass/Vol] 8.2 mg/dL Low 8.5 - 10. 5 mg/dL [facility] Chloride [Moles/Vol] 111 mmol/L High 98 - 109 mmol/L [facility] CO2 [Moles/Vol] 21 mmol/L Low 22 - 32 mmol/L [facility] Creatinine [Mass/Vol] 2.13 mg/dL High 0.40 - 1.00 mg/dL [facility] Comment on above: METHOD TRACEABLE TO [facility] STANDARD eGFR (CKD-EPI)non-race dependent 24 Low - PINF [facility] Comment on above: Reported eGFR is based on the CKD-EPI 2020 equation that does not use a race coefficient. Glucose [Mass/Vol] 117 mg/dL High 65 - 99 mg/dL [facility] Interpretation and review of laboratory results Abnormal [facility] Potassium [Moles/Vol] 4.6 mmol/L 3.5 - 5.0 mmol/L [facility] Sodium [Moles/Vol] 140 mmol/L 134 - 146 mmol/L [facility] Urea nitrogen [Mass/Vol] 59 mg/dL High 5 - 27 mg/dL [facility] CBC AND AUTO DIFFon 01-16-20 ABSOLUTE BASOPHIL 0.0 X10E9/L Normal 0.0-0.2 [facility] Comment on above: Performed By: #### C BCA, 4679-7 ####[facility] ([id number])[address], [address] [place] [address] ABSOLUTE NEUTROPHIL 6.7 X10E9/L High 1.5-6.6 [facility] Comment on above: Performed By: #### C BCA, 4679-7 ####[facility] ([id number])[address], [address] [place] [address] Basophils/100 WBC (Bld) 0.4 % Normal [facility] Comment on above: Performed By: #### Sara MELGAR, 4679-7 ####[facility] ([id number])[address], [address], [place] [address] Eosinophils (Bld) [#/Vol] 0.0 10*3/uL Normal 0.0-0.4 [facility] Comment on above: Performed By: #### Sara MELGAR, 4679-7 ####[facility] ([id number])[address] [address] Eosinophils/100 WBC (Bld) 0.0 % Normal [facility] Comment on above: Performed By: #### Sara MELGAR, 4679-7 ####[facility] ([id number])0 [facility] [address] [address] Erythrocyte distribution width (RBC) [Ratio] 14.5 % Normal 11.5-15.0 [facility] Comment on above: Performed By: #### Sara MELGAR, 4679-7 ####[facility] ([id number])0 [address] [address], [place] [address] Hematocrit (Bld) [Volume fraction] 18.3 % Low 35-47 [facility] Comment on above: Performed By: #### Sara MELGAR, 4679-7 ####[facility] ([id number])0 [address] [address], [place] [address] Hemoglobin (Bld) [Mass/Vol] 6.1 g/dL Critically low 11.7-15.5 [facility] Comment on above: Performed By: #### Sara MELGAR, 4679-7 ####[facility] ([id number])0 [address] [address], [place] [address] Lymphocytes (Bld) [#/Vol] 0.5 10*3/uL Low 1.0-3.5 [facility] Comment on above: Performed By: #### Sara MELGAR, 4679-7 ####[facility] ([id number])[address], [address] [place] [address] Lymphocytes/100 WBC (Bld) 6.0 % Normal [facility] Comment on above: Performed By: #### Sara MELGAR, 4679-7 ####[facility] ([id number])[address], [address] [place] [address] MCH (RBC) [Entitic mass] 31.8 pg Normal 27-34 [facility] Comment on above: Performed By: #### Sara MELGAR, 4679-7 ####[facility] ([id number])[address], [address], [place] [address] MCHC (RBC) [Mass/Vol] 33.2 g/dL Normal 32-36 [facility] Comment on above: Performed By: #### Sara MELGAR, 4679-7 ####[facility] ([id number])[address], [address], [place] [address] MCV (RBC) [Entitic vol] 96 fL Normal 80-100 [facility] Comment on above: Performed By: #### Sara MELGAR, 4679-7 ####[facility] ([id number])[address], [address], [place] [address] Monocytes (Bld) [#/Vol] 0.6 10*3/uL Normal 0-0.9 [facility] Comment on above: Performed By: #### Sara MELGAR, 4679-7 ####[facility] ([id number])[address], [address] [place] [address] Monocytes/100 WBC (Bld) 7.6 % Normal [facility] Comment on above: Performed By: #### Sara MELGAR, 4679-7 ####[facility] ([id number])[address] [address] [place] [address] Neutrophils/100 WBC (Bld) 86.0 % Normal [facility] Comment on above: Performed By: #### Sara MELGAR, 4679-7 ####[facility] ([id number])[address] [address] Platelet mean volume (Bld) [Entitic vol] 8.2 fL Normal 7-12 [facility] Comment on above: Performed By: #### Sara MELGAR, 4679-7 ####[facility] ([id number])[address] [address] Platelets (Bld) [#/Vol] 138 10*3/uL Low 150-450 [facility] Comment on above: Performed By: #### Sara MELGAR, 4679-7 ####[facility] ([id number])[address] [address] RBC COUNT 1.91 X10E12/L Low 3.80-5.20 [facility] Comment on above: Performed By: #### Sara MLEGAR, 4679-7 ####[facility] ([id number])[address] [address] WBC (Bld) [#/Vol] 7.8 10*3/uL Normal 4.0-11.0 [facility] Comment on above: Performed By: #### Sara MELGAR, 4679-7 ####[facility] ([id number])[address] [address] CBC auto differentialon 12-28 Basophils (Bld) [#/Vol] 0 10*3/uL [facility] Basophils/100 WBC (Bld) 0.4 % [facility] Eosinophils (Bld) [#/Vol] 0 10*3/uL [facility] Eosinophils/100 WBC (Bld) 0 % [facility] Erythrocyte distribution width (RBC) [Ratio] 14.5 % 11.5 - 15.0 % [facility] Hematocrit (Bld) [Volume fraction] 18.3 % Low 35 - 47 % [facility] Hemoglobin (Bld) [Mass/Vol] 6.1 g/dL Critically low 11.7 - 15.5 g/dL [facility] Interpretation and review of laboratory results Abnormal [facility] Lymphocytes (Bld) [#/Vol] 0.5 10*3/uL Low [facility] Lymphocytes/100 WBC (Bld) 6 % [facility] MCH (RBC) [Entitic mass] 31.8 pg 27 - 34 pg [facility] MCHC (RBC) [Mass/Vol] 33.2 g/dL 32 - 36 g/dL [facility] MCV (RBC) [Entitic vol] 96 fL 80 - 100 fL [facility] Monocytes (Bld) [#/Vol] 0.6 10*3/uL [facility] Monocytes/100 WBC (Bld) 7.6 % [facility] Neutrophils (Bld) [#/Vol] 6.7 10*3/uL High [facility] Neutrophils/100 WBC (Bld) 86 % [facility] Platelet mean volume (Bld) [Entitic vol] 8.2 fL 7 - 12 fL [facility] Platelets (Bld) [#/Vol] 138 10*3/uL Low [facility] RBC (Bld) [#/Vol] 1.91 10*6/uL Low [facility] WBC corrected for nucl RBC Auto (Bld) [#/Vol] 7.8 [facility] HEMOGLOBINon 01-15-2025 Hemoglobin (Bld) [Mass/Vol] 6.6 g/dL Critically low 11.7-15.5 [facility] Comment on above: Performed By: #### 7 18-7 ####[facility] ([id number])[address] [facility], [address] [place] [address] HGBon 01-15-2025 Hematocrit (Bld) [Volume fraction] 17.8 % Low 35-47 [facility] Comment on above: Performed By: #### H H ####[facility] ([id number])[address], [address] [place] [address] Hemoglobin (Bld) [Mass/Vol] 6.0 g/dL Critically low 11.7-15.5 [facility] Comment on above: Performed By: #### H H ####[facility] ([id number])[address], [address] [place] [address] Hemoglobinon 01-15-2025 Hemoglobin (Bld) [Mass/Vol] 6.6 g/dL Critically low 11.7 - 15.5 g/dL [facility] Hemoglobin (Bld) [Mass/Vol]o n 01-15-2025 Interpretation and review of laboratory results Abnormal [facility] Hemoglobin and hematocrit, b loodon 01-15-2025 Hematocrit (Bld) [Volume fraction] 17.8 % Low 35 - 47 % [facility] Hemoglobin (Bld) [Mass/Vol] 6 g/dL Critically low 11.7 - 15.5 g/dL [facility] Interpretation and review of laboratory results Abnormal [facility] PROTIME AND INRon 01-15-2025 INR Coag (PPP) [Relative time] 1.6 {INR} High 0.9-1.2 [facility] Comment on above: Performed By: #### Hong GIRALDO, PINR ####[facility] ([id number])[address] [address] [place] [address] PT Coag (PPP) [Time] 18.6 s High 9.8-13.2 [facility] Comment on above: Performed By: #### B KRISTAL, PINR ####[facility] ([id number])[address], [address] [place] [address] Protime & INRon 01-15-2025 INR Coag (PPP) [Relative time] 1.6 {INR} High [facility] Interpretation and review of laboratory results Abnormal [facility] PT Coag (PPP) [Time] 18.6 s High [facility] Reticulocyteson 01-15-2025 Reticulocytes/100 RBC (Bld) 2.2 % 0.4 - 2.2 % [facility] Reticulocytes/100 RBC (Bld)o n 01-15-2025 [facility] RETICULOCYTE COUNT 2.2 % Normal 0.4-2.2 [facility] Comment on above: Performed By: #### C BCA, 4679-7 ####[facility] ([id number])[address] [place] [address] BASIC METABOLIC PANLon 01-14 Anion gap [Moles/Vol] 9 mmol/L Normal 5-15 [facility] Comment on above: Performed By: #### B MP, CBCA, 53198-2, FEPR, 2276-4, 2284-8, 2132-05 ####[facility] ([id number])[address], [address] [place] [address] Calcium [Mass/Vol] 7.8 mg/dL Low 8.5-10.5 [facility] Comment on above: Performed By: #### B MP, CBCA, 32636-6, FEPR, 2276-4, 2284-8, 2132-05 ####[facility] ([id number])[address], [address] [place] [address] Chloride [Moles/Vol] 112 mmol/L High 98-109 [facility] Comment on above: Performed By: #### B MP, CBCA, 70827-2, FEPR, 2276-4, 2284-8, 2131- ####[facility] ([id number])[address], [address] [place] [address] CO2 [Moles/Vol] 20 mmol/L Low 22-32 [facility] Comment on above: Performed By: #### B MP, CBCA, 60819-9, FEPR, 2276-4, 2284-8, 2132-05 ####[facility] ([id number])[address] [address] [address] Creatinine [Mass/Vol] 1.93 mg/dL High 0.40-1.00 [facility] Comment on above: Result Comment: METH OD TRACEABLE TO [facility] STANDARD Performed By: #### B MP, CBCA, 24267-9, FEPR, 2276-4, 2284-8, 2132-05 ####[facility] ([id number])[address] [address] GFR/1.73 sq M.predicted among non-blacks MDRD (S/P/Bld) [Vol rate/Area] 28 mL/min/{1.73_m2} Low >59 [facility] Comment on above: Result Comment: Repo rted eGFR is based on theCKD-EPI 2020 equation that doesnot use a race coefficient. Performed By: #### B MP, CBCA, 79229-2, FEPR, 2276-4, 2284-8, 2132-05 ####[facility] ([id number])[address] [address] [place] [address] Glucose [Mass/Vol] 152 mg/dL High 65-99 [facility] Comment on above: Performed By: #### B MP, CBCA, 06695-9, FEPR, 2276-4, 2284-8, 2132-05 ####[facility] ([id number])[address] [address] [address] Potassium [Moles/Vol] 4.7 mmol/L Normal 3.5-5.0 [facility] Comment on above: Performed By: #### B MP, CBCA, 17243-4, FEPR, 2276-4, 2284-8, 9 ####[facility] ([id number])[address] [facility] [address] [place] [address] Sodium [Moles/Vol] 141 mmol/L Normal 134-146 [facility] Comment on above: Performed By: #### B MP, CBCA, 50725-6, FEPR, 2276-4, 2284-8, 9 ####[facility] ([id number])[address], [address] [place] [address] Urea nitrogen [Mass/Vol] 53 mg/dL High 5-27 [facility] Comment on above: Performed By: #### B MP, CBCA, 19137-0, FEPR, 2276-4, 2284-8, 9 ####[facility] ([id number])[address], [address] [address] Basic Metabolic Panelon - Anion gap [Moles/Vol] 9 mmol/L 5 - 15 mmol/L [facility] Calcium [Mass/Vol] 7.8 mg/dL Low 8.5 - 10. 5 mg/dL [facility] Chloride [Moles/Vol] 112 mmol/L High 98 - 109 mmol/L [facility] CO2 [Moles/Vol] 20 mmol/L Low 22 - 32 mmol/L [facility] Creatinine [Mass/Vol] 1.93 mg/dL High 0.40 - 1.00 mg/dL [facility] Comment on above: METHOD TRACEABLE TO [facility] STANDARD eGFR (CKD-EPI)non-race dependent 28 Low - PINF [facility] Comment on above: Reported eGFR is based on the CKD-EPI 2020 equation that does not use a race coefficient. Glucose [Mass/Vol] 152 mg/dL High 65 - 99 mg/dL [facility] Interpretation and review of laboratory results Abnormal [facility] Potassium [Moles/Vol] 4.7 mmol/L 3.5 - 5.0 mmol/L [facility] Sodium [Moles/Vol] 141 mmol/L 134 - 146 mmol/L [facility] Urea nitrogen [Mass/Vol] 53 mg/dL High 5 - 27 mg/dL [facility] CBC AND AUTO DIFFon 01-15-20 25 ABSOLUTE BASOPHIL 0.0 X10E9/L Normal 0.0-0.2 [facility] Comment on above: Performed By: #### B MP, CBCA, 68154-1, FEPR, 2276-4, 4-8, 2132-05 ####[facility] ([id number])[address] [address] ABSOLUTE NEUTROPHIL 10.4 X10E9/L High 1.5-6.[address] [facility] Comment on above: Performed By: #### B MP, CBCA, 35663-3, FEPR, 2275-4, 2283-, 2132-05 ####[facility] ([id number])[address] [address] Basophils/100 WBC (Bld) 0.1 % Normal [facility] Comment on above: Performed By: #### B MP, CBCA, 00905-9, FEPR, 6-4, 2283-8, 2132-05 ####[facility] ([id number])[address] [address] [place] [address] Eosinophils (Bld) [#/Vol] 0.0 10*3/uL Normal 0.0-0.4 [facility] Comment on above: Performed By: #### B MP, CBCA, 71372-2, FEPR, 6-4, 2283-8, 2132-05 ####[facility] ([id number])[address], [address] [place] [address] Eosinophils/100 WBC (Bld) 0.0 % Normal [facility] Comment on above: Performed By: #### B MP, CBCA, 85420-1, FEPR, 2276-4, 4-8, 2132-05 ####[facility] ([id number])[address] [address] Erythrocyte distribution width (RBC) [Ratio] 14.9 % Normal 11.5-15.0 [facility] Comment on above: Performed By: #### B MP, CBCA, 87169-9, FEPR, 2276-4, 2283-8, 2132-05 ####[facility] ([id number])[address] [address] [address] Hematocrit (Bld) [Volume fraction] 23.8 % Low 35-47 [facility] Comment on above: Performed By: #### B MP, CBCA, 67606-1, FEPR, 2276-4, 2283-8, 2132-05 ####[facility] ([id number])[address] [address] [address] Hemoglobin (Bld) [Mass/Vol] 7.7 g/dL Low 11.7-15.5 [facility] Comment on above: Performed By: #### B MP, CBCA, 36436-4, FEPR, 2276-4, 2283-8, 2132-05 ####[facility] ([id number])[address] [address] [place] [address] Lymphocytes (Bld) [#/Vol] 0.4 10*3/uL Low 1.0-3.5 [facility] Comment on above: Performed By: #### B MP, CBCA, 70641-1, FEPR, 2276-4, 2283-8, 2132-05 ####[facility] ([id number])[address] [address] [address] Lymphocytes/100 WBC (Bld) 3.7 % Normal [facility] Comment on above: Performed By: #### B MP, CBCA, 18161-9, FEPR, 2276-4, 4-8, 2132-05 ####[facility] ([id number])[address] [address] [place] [address] MCH (RBC) [Entitic mass] 30.8 pg Normal 27-34 [facility] Comment on above: Performed By: #### B MP, CBCA, 21808-5, FEPR, 2276-4, 2283-, 2132-05 ####[facility] ([id number])[address], [address] [address] MCHC (RBC) [Mass/Vol] 32.5 g/dL Normal 32-36 [facility] Comment on above: Performed By: #### B MP, CBCA, 41290-2, FEPR, 2275-4, 2284-04, 2132-05 ####[facility] ([id number])[address] [address] MCV (RBC) [Entitic vol] 95 fL Normal 80-100 [facility] Comment on above: Performed By: #### B MP, CBCA, 12245-4, FEPR, 2275-4, 2284-04, 2132-05 ####[facility] ([id number])[address] [address] [address] Monocytes (Bld) [#/Vol] 0.5 10*3/uL Normal 0-0.9 [facility] Comment on above: Performed By: #### B MP, CBCA, 68513-4, FEPR, 2275-, 2284-04, 2132-05 ####[facility] ([id number])[address] [address] [place] [address] Monocytes/100 WBC (Bld) 4.1 % Normal [facility] Comment on above: Performed By: #### B MP, CBCA, 91040-5, FEPR, 2276-4, 2283-, 2132-05 ####[facility] ([id number])[address] [address] Neutrophils/100 WBC (Bld) 92.1 % Normal [facility] Comment on above: Performed By: #### B MP, CBCA, 40358-1, FEPR, 2276-4, 2284-8, 2132-05 ####[facility] ([id number])[address], [address] [place] [address] Platelet mean volume (Bld) [Entitic vol] 8.0 fL Normal 7-12 [facility] Comment on above: Performed By: #### B MP, CBCA, 41787-2, FEPR, 2276-4, 228-8, 2132-05 ####[facility] ([id number])[address] [address] [place] [address] Platelets (Bld) [#/Vol] 166 10*3/uL Normal 150-450 [facility] Comment on above: Performed By: #### B MP, CBCA, 10556-8, FEPR, 2276-4, 2283-8, 2132-05 ####[facility] ([id number])[address] [address] RBC COUNT 2.51 X10E12/L Low 3.80-5.20 [facility] Comment on above: Performed By: #### B MP, CBCA, 76238-0, FEPR, 2276-4, 228-8, 2132-05 ####[facility] ([id number])[address], [address] [place] [address] WBC (Bld) [#/Vol] 11.3 10*3/uL High 4.0-11.0 [facility] Comment on above: Performed By: #### B MP, CBCA, 63598-2, FEPR, 2276-4, 2284-8, 2132-05 ####[facility] ([id number])[address] [address] [place] [address] CBC auto differentialon 12-27 Basophils (Bld) [#/Vol] 0 10*3/uL [facility] Basophils/100 WBC (Bld) 0.1 % [facility] Eosinophils (Bld) [#/Vol] 0 10*3/uL [facility] Eosinophils/100 WBC (Bld) 0 % [facility] Erythrocyte distribution width (RBC) [Ratio] 14.9 % 11.5 - 15.0 % [facility] Hematocrit (Bld) [Volume fraction] 23.8 % Low 35 - 47 % [facility] Hemoglobin (Bld) [Mass/Vol] 7.7 g/dL Low 11.7 - 15.5 g/dL [facility] Interpretation and review of laboratory results Abnormal [facility] Lymphocytes (Bld) [#/Vol] 0.4 10*3/uL Low [facility] Lymphocytes/100 WBC (Bld) 3.7 % [facility] MCH (RBC) [Entitic mass] 30.8 pg 27 - 34 pg [facility] MCHC (RBC) [Mass/Vol] 32.5 g/dL 32 - 36 g/dL [facility] MCV (RBC) [Entitic vol] 95 fL 80 - 100 fL [facility] Monocytes (Bld) [#/Vol] 0.5 10*3/uL [facility] Monocytes/100 WBC (Bld) 4.1 % [facility] Neutrophils (Bld) [#/Vol] 10.4 10*3/uL High [facility] Neutrophils/100 WBC (Bld) 92.1 % [facility] Platelet mean volume (Bld) [Entitic vol] 8 fL 7 - 12 fL [facility] Platelets (Bld) [#/Vol] 166 10*3/uL [facility] RBC (Bld) [#/Vol] 2.51 10*6/uL Low [facility] WBC corrected for nucl RBC Auto (Bld) [#/Vol] 11.3 High [facility] Cobalamin (Vitamin B12) [Mas s/Vol]on 01-14-2025 Interpretation and review of laboratory results Abnormal [facility] FERRITINon 01-14-2025 Ferritin [Mass/Vol] 101 ng/mL Normal 11-307 [facility] Comment on above: Performed By: #### B MP, CBCA, 83288-5, FEPR, 2276-4, 2284-8, 2132-05 ####[facility] ([id number])[address] [facility] [address] [address] Ferritinon 01-14-2025 Ferritin [Mass/Vol] 101 ng/mL 11 - 307 ng/mL [facility] Ferritin [Mass/Vol]on 2024 [facility] Folateon 01-14-2025 Folate [Mass/Vol] 22.6 ng/mL 5.8 - PINF ng/mL [facility] Comment on above: NEW REFERENCE RANGE Folate [Mass/Vol]on 01-15-20 [facility] FOLIC ACID 22.6 ng/mL Normal >5.8 [facility] Comment on above: Result Comment: NEW REFERENCE RANGE Performed By: #### B MP, CBCA, 65069-0, FEPR, 2276-4, 2284-8, 2132-05 ####[facility] ([id number])[address] [facility], [address] [place] [address] IRON PROFILEon 01-14-2025 Iron [Mass/Vol] 10 ug/dL Low 50-170 [facility] Comment on above: Performed By: #### B MP, CBCA, 42985-1, FEPR, 2276-4, 2284-8, 2132-05 ####[facility] ([id number])[address] [facility], [address] [place] [address] IRON BINDING 235 ug/dL Low 250-425 [facility] Comment on above: Performed By: #### B MP, CBCA, 07309-0, FEPR, 2276-4, 2284-8, 2132-05 ####[facility] ([id number])[address] [facility], [address] [place] [address] [id number] IRON SATURATION 4 % SATURATION Low 15-50 [facility] Comment on above: Performed By: #### B MP, CBCA, 84367-4, FEPR, 2276-4, 2284-8, 2132-9 ####[facility] ([id number])[address] [facility], [address] [place] [id number] Iron and TIBCon 01-14-2025 Interpretation and review of laboratory results Abnormal [facility] Iron [Mass/Vol] 10 ug/dL Low 50 - 170 ug/dL [facility] Iron binding capacity [Mass/Vol] 235 ug/dL Low 250 - 425 ug/dL [facility] Iron saturation [Mass fraction] 4 Low [facility] PROTIME AND INRon 01-14-2025 INR Coag (PPP) [Relative time] 1.3 {INR} High 0.9-1.2 [facility] Comment on above: Performed By: #### P INR ####[facility] ([id number])[address] [facility], [address] [place] [id number] PT Coag (PPP) [Time] 14.8 s High 9.8-13.2 [facility] Comment on above: Performed By: #### P INR ####[facility] ([id number])0 [facility], [address] [place] [address] [phone] Protime & INRon 01-14-2025 INR Coag (PPP) [Relative time] 1.3 {INR} High [facility] Interpretation and review of laboratory results Abnormal [facility] PT Coag (PPP) [Time] 14.8 s High [facility] URINE CULTUREon 01-14-2025 Bacteria identified Cx Nom (U) Susceptible [facility] Comment on above: Performed By: #### 6 30-4 ####[facility] ([id number])2130 [facility], [address] [place] [address] VITAMIN B12on 01-14-2025 Cobalamin (Vitamin B12) [Mass/Vol] pg/mL High 180-914 [facility] Comment on above: Performed By: #### B MP, CBCA, 78841-1, FEPR, 2275-, 2284-04, 2132-05 ####[facility] ([id number])2130 [facility], [address] [place] [address] Vitamin B12on 01-14-2025 Cobalamin (Vitamin B12) [Mass/Vol] pg/mL High 180 - 914 pg/mL [facility] Vitamin D 25 hydroxyon 01-14 Vitamin D+Metabolites [Mass/Vol] 44.4 ng/mL 30 - 100 ng/mL [facility] Comment on above: Vitamin D status 25 [place] Vitamin D Deficiency <20 ng/mL Insufficiency 20-29 ng/mL Sufficiency 30-100 ng/mL Toxicity >100 ng/mL NOTE: A pediatric reference range has not been established by the ventilated rib fitter of this kit. The [employer] [employer] recommends a Vitamin D level of = or >20ng/mL in infants and children. Vitamin D+Metabolites [Mass/ Vol]on 01-14-2025 [facility] VITAMIN D 25 HYD TOT 44.4 ng/mL Normal 30-100 [facility] Comment on above: Result Comment: Dannielle min D status 25 [place] Vitamin D Deficiency <20 ng/mLInsufficiency 20-29 ng/mLSufficiency 30-100 ng/mLToxicity >100 ng/mLNOTE: A pediatric reference range has not beenestablished by the ventilated rib fitter of this kit.The [place] [employer] recommendsa Vitamin D level of = or >20ng/mL in infantsand children. Performed By: #### B MP, CBCA, 21667-4, FEPR, 6-4, 2283-8, 2132-05 ####[facility] ([id number])0 [facility], [address], [place] [address] [id number] 01-13-2025 [id number] Normal [facility] ABG RAPID K GLU HHon 025 VINICIUS'S TEST Normal [facility] Comment on above: Performed By: #### H RTN ####[facility] ([id number])2141 [place] [address] BASE,DEFICIT 5.7 MMOL/L High 0.0-2.0 [facility] Comment on above: Performed By: #### H RTN ####[facility] ([id number])2141 [place] [address] Body temperature 98.6 [degF] Normal 37.0 [facility] Comment on above: Performed By: #### H RTN ####[facility] ([id number])2141 [place] [address] Glucose [Mass/Vol] 118 mg/dL High 65-99 [facility] Comment on above: Performed By: #### H RTN ####[facility] ([id number])2141 [place] [address] HCO3 (Bld) [Moles/Vol] 20.3 mmol/L Low 22-26 [facility] Comment on above: Performed By: #### H RTN ####[facility] ([id number])2141 [place] [address] Hematocrit (Bld) [Volume fraction] 29 % Low 35-47 [facility] Comment on above: Performed By: #### H RTN ####[facility] ([id number])2141 [place] [address] Hemoglobin (Bld) [Mass/Vol] 9.4 g/dL Low 11.7-15.5 [facility] Comment on above: Performed By: #### H RTN ####[facility] ([id number])2141 [facility] [place] [address] INSP. O2 CONC. 100 % Normal [facility] Comment on above: Performed By: #### H RTN ####[facility] ([id number])2141 [facility] [place] [address] Oxygen (Bld) [Partial pressure] 68 mm[Hg] Low 80-100 [facility] Comment on above: Performed By: #### H RTN ####[facility] ([id number])2141 [place] [address] Oxygen saturation in Blood 94.6 % Normal >90 [facility] Comment on above: Performed By: #### H RTN ####[facility] ([id number])2141 [facility] [place] [address] PCO2 38.8 MMHG Normal 35-45 [facility] Comment on above: Performed By: #### H RTN ####[facility] ([id number])2141 [facility] [place] [address] pH (Bld) 7.327 [pH] Low 7.350-7.45 0 [facility] Comment on above: Performed By: #### H RTN ####[facility] ([id number])2141 [facility] [place] [address] Potassium [Moles/Vol] 4.1 mmol/L Normal 3.5-5.0 [facility] Comment on above: Performed By: #### H RTN ####[facility] ([id number])2141 [facility] [place] [address] SAMPLE SITE TERRA Normal [facility] Comment on above: Performed By: #### H RTN ####[facility] ([id number])2141 [facility] [place] [address] SAMPLE TYPE Arterial Normal [facility] Comment on above: Performed By: #### H RTN ####[facility] ([id number])2141 [place] [address] VINICIUS'S TEST Normal [facility] Comment on above: Performed By: #### H RTN ####[facility] ([id number])2141 [place] [address] BASE,DEFICIT 8.3 MMOL/L High 0.0-2.0 [facility] Comment on above: Performed By: #### H RTN ####[facility] ([id number])2141 [place] [address] Body temperature 98.6 [degF] Normal 37.0 [facility] Comment on above: Performed By: #### H RTN ####[facility] ([id number])2141 [place] [address] Glucose [Mass/Vol] 102 mg/dL High 65-99 [facility] Comment on above: Performed By: #### H RTN ####[facility] ([id number])2141 [place] [address] HCO3 (Bld) [Moles/Vol] 18.2 mmol/L Low 22-26 [facility] Comment on above: Performed By: #### H RTN ####[facility] ([id number])2141 [place] [address] Hematocrit (Bld) [Volume fraction] 33 % Low 35-47 [facility] Comment on above: Performed By: #### H RTN ####[facility] ([id number])2141 [place] [address] Hemoglobin (Bld) [Mass/Vol] 10.6 g/dL Low 11.7-15.5 [facility] Comment on above: Performed By: #### H RTN ####[facility] ([id number])2141 [facility] [address] INSP. O2 CONC. 100 % Normal [facility] Comment on above: Performed By: #### H RTN ####[facility] ([id number])2141 [place] [address] Oxygen (Bld) [Partial pressure] 109 mm[Hg] High 80-100 [facility] Comment on above: Performed By: #### H RTN ####[facility] ([id number])2141 [facility] [place] [address] Oxygen saturation in Blood 98.6 % Normal >90 [facility] Comment on above: Performed By: #### H RTN ####[facility] ([id number])2141 [facility] [place] [address] PCO2 37.7 MMHG Normal 35-45 [facility] Comment on above: Performed By: #### H RTN ####[facility] ([id number])2141 [facility] [place] [address] pH (Bld) 7.292 [pH] Low 7.350-7.45 0 [facility] Comment on above: Performed By: #### H RTN ####[facility] ([id number])2141 [facility] [place] [address] Potassium [Moles/Vol] 4.1 mmol/L Normal 3.5-5.0 [facility] Comment on above: Performed By: #### H RTN ####[facility] ([id number])2141 [facility] [place] [address] SAMPLE SITE TERRA [facility] Comment on above: Performed By: #### H RTN ####[facility] ([id number])2141 [place] [address] SAMPLE TYPE Arterial Normal [facility] Comment on above: Performed By: #### H RTN ####[facility] ([id number])2[address] [place] [address] BASIC METABOLIC PANLon 01-13 Anion gap [Moles/Vol] 10 mmol/L Normal 5-15 [facility] Comment on above: Performed By: #### P INR, CBC, BMP ####[facility] ([id number])2130 [facility] [address] [place] [address] Calcium [Mass/Vol] 8.5 mg/dL Normal 8.5-10.5 [facility] Comment on above: Performed By: #### P INR, CBC, BMP ####[facility] ([id number])[address] [address] Chloride [Moles/Vol] 112 mmol/L High 98-109 [facility] Comment on above: Performed By: #### P INR, CBC, BMP ####[facility] ([id number])2130 [facility] [address] [place] [address] CO2 [Moles/Vol] 19 mmol/L Low 22-32 [facility] Comment on above: Performed By: #### P INR, CBC, BMP ####[facility] ([id number])[address] [address] Creatinine [Mass/Vol] 2.24 mg/dL High 0.40-1.00 [facility] Comment on above: Result Comment: METH OD TRACEABLE TO IDMS STANDARD Performed By: #### P INR, CBC, BMP ####[facility] ([id number])[address] [address] GFR/1.73 sq M.predicted among non-blacks MDRD (S/P/Bld) [Vol rate/Area] 23 mL/min/{1.73_m2} Low >59 [facility] Comment on above: Result Comment: Repo rted eGFR is based on theCKD-EPI 2020 equation that doesnot use a race coefficient. Performed By: #### P INR, CBC, BMP ####[facility] ([id number])[address] [address] Glucose [Mass/Vol] 111 mg/dL High 65-99 [facility] Comment on above: Performed By: #### P INR, CBC, BMP ####[facility] ([id number])[address] [address] Potassium [Moles/Vol] 4.1 mmol/L Normal 3.5-5.0 [facility] Comment on above: Performed By: #### P INR, CBC, BMP ####[facility] ([id number])[address] [address] Sodium [Moles/Vol] 141 mmol/L Normal 134-146 [facility] Comment on above: Performed By: #### P INR, CBC, BMP ####[facility] ([id number])[address] [address] Urea nitrogen [Mass/Vol] 59 mg/dL High 5-27 [facility] Comment on above: Performed By: #### P INR, CBC, BMP ####[facility] ([id number])[address] [address] Basic Metabolic Panelon 12-27 Anion gap [Moles/Vol] 10 mmol/L 5 - 15 mmol/L [facility] Calcium [Mass/Vol] 8.5 mg/dL 8.5 - 10. 5 mg/dL [facility] Chloride [Moles/Vol] 112 mmol/L High 98 - 109 mmol/L [facility] CO2 [Moles/Vol] 19 mmol/L Low 22 - 32 mmol/L [facility] Creatinine [Mass/Vol] 2.24 mg/dL High 0.40 - 1.00 mg/dL [facility] Comment on above: METHOD TRACEABLE TO IDMS STANDARD eGFR (CKD-EPI)non-race dependent 23 Low - PINF [facility] Comment on above: Reported eGFR is based on the CKD-EPI 2020 equation that does not use a race coefficient. Glucose [Mass/Vol] 111 mg/dL High 65 - 99 mg/dL [facility] Interpretation and review of laboratory results Abnormal [facility] Potassium [Moles/Vol] 4.1 mmol/L 3.5 - 5.0 mmol/L [facility] Sodium [Moles/Vol] 141 mmol/L 134 - 146 mmol/L [facility] Urea nitrogen [Mass/Vol] 59 mg/dL High 5 - 27 mg/dL [facility] CBC without diffon Erythrocyte distribution width (RBC) [Ratio] 14.3 % 11.5 - 15.0 % [facility] Hematocrit (Bld) [Volume fraction] 33 % Low 35 - 47 % [facility] Hemoglobin (Bld) [Mass/Vol] 10.8 g/dL Low 11.7 - 15.5 g/dL [facility] Interpretation and review of laboratory results Abnormal [facility] MCH (RBC) [Entitic mass] 31 pg 27 - 34 pg [facility] MCHC (RBC) [Mass/Vol] 32.8 g/dL 32 - 36 g/dL [facility] MCV (RBC) [Entitic vol] 94 fL 80 - 100 fL [facility] Platelet mean volume (Bld) [Entitic vol] 7.6 fL 7 - 12 fL [facility] Platelets (Bld) [#/Vol] 189 10*3/uL [facility] RBC (Bld) [#/Vol] 3.5 10*6/uL Low [facility] WBC corrected for nucl RBC Auto (Bld) [#/Vol] 7 [facility] COMPLETE BLOOD COUNTon 01-13 Erythrocyte distribution width (RBC) [Ratio] 14.3 % Normal 11.5-15.0 [facility] Comment on above: Performed By: #### P INR, CBC, BMP ####[facility] ([id number])213 [facility] [address] [place] [address] Hematocrit (Bld) [Volume fraction] 33.0 % Low 35-47 [facility] Comment on above: Performed By: #### P INR, CBC, BMP ####[facility] ([id number])[address], [address] [place] [address] Hemoglobin (Bld) [Mass/Vol] 10.8 g/dL Low 11.7-15.5 [facility] Comment on above: Performed By: #### P INR, CBC, BMP ####[facility] ([id number])2[address] [facility] [address] [place] [address] MCH (RBC) [Entitic mass] 31.0 pg Normal 27-34 [facility] Comment on above: Performed By: #### P INR, CBC, BMP ####[facility] ([id number])2[address] [facility] [address], [place] [address] MCHC (RBC) [Mass/Vol] 32.8 g/dL Normal 32-36 [facility] Comment on above: Performed By: #### P INR, CBC, BMP ####[facility] ([id number])2129 [facility] [address] [place] [address] MCV (RBC) [Entitic vol] 94 fL Normal 80-100 [facility] Comment on above: Performed By: #### P INR, CBC, BMP ####[facility] ([id number])2129 [facility] [address] [place] [address], [place] [address] Platelet mean volume (Bld) [Entitic vol] 7.6 fL Normal 7-12 [facility] Comment on above: Performed By: #### P INR, CBC, BMP ####[facility] ([id number])2[address] [facility] [address] [place] [address] Platelets (Bld) [#/Vol] 189 10*3/uL Normal 150-450 [facility] Comment on above: Performed By: #### P INR, CBC, BMP ####[facility] ([id number])2130 [address], [address] [place] [address] RBC COUNT 3.50 X10E12/L Low 3.80-5.20 [facility] Comment on above: Performed By: #### P INR, CBC, BMP ####[facility] ([id number])[address], [address] [place] [address] WBC (Bld) [#/Vol] 7.0 10*3/uL Normal 4.0-11.0 [facility] Comment on above: Performed By: #### P INR, CBC, BMP ####[facility] ([id number])2[address], [address] [address] POCT ABG Rapid K GLU HHon Arterial patency Wrist artery --pre arterial puncture [facility] Base deficit (Bld) [Moles/Vol] 5.7 mmol/L High [facility] CO2 (Bld) [Partial pressure] 38.8 mm[Hg] [facility] Glucose [Mass/Vol] 118 mg/dL High 65 - 99 mg/dL [facility] HCO3 (Bld) [Moles/Vol] 20.3 mmol/L Low [facility] Hematocrit (Bld) [Volume fraction] 29 % Low 35 - 47 % [facility] Hemoglobin (Bld) [Mass/Vol] 9.4 g/dL Low 11.7 - 15.5 g/dL [facility] Interpretation and review of laboratory results Abnormal [facility] Oxygen (Bld) [Partial pressure] 68 mm[Hg] Low [facility] Oxygen/Inspired gas setting [Volume Fraction] Ventilator 100 % [facility] pH (Bld) 7.327 [pH] Low 7.350 - 7.450 [facility] Potassium [Moles/Vol] 4.1 mmol/L 3.5 - 5.0 mmol/L [facility] Specimen site Narrative [facility] Specimen type Nom (Spec) Arterial [facility] Arterial patency Wrist artery --pre arterial puncture [facility] Base deficit (Bld) [Moles/Vol] 8.3 mmol/L High [facility] CO2 (Bld) [Partial pressure] 37.7 mm[Hg] [facility] Glucose [Mass/Vol] 102 mg/dL High 65 - 99 mg/dL [facility] HCO3 (Bld) [Moles/Vol] 18.2 mmol/L Low [facility] Hematocrit (Bld) [Volume fraction] 33 % Low 35 - 47 % [facility] Hemoglobin (Bld) [Mass/Vol] 10.6 g/dL Low 11.7 - 15.5 g/dL [facility] Interpretation and review of laboratory results Abnormal [facility] Oxygen (Bld) [Partial pressure] 109 mm[Hg] High [facility] Oxygen/Inspired gas setting [Volume Fraction] Ventilator 100 % [facility] pH (Bld) 7.292 [pH] Low 7.350 - 7.450 [facility] Potassium [Moles/Vol] 4.1 mmol/L 3.5 - 5.0 mmol/L [facility] Specimen site Narrative [facility] Specimen type Nom (Spec) Arterial [facility] POCT ABG Rapid K GLU ICA HHo n 01-13-2025 Arterial patency Wrist artery --pre arterial puncture [facility] Base deficit (Bld) [Moles/Vol] 7.6 mmol/L High [facility] Calcium.ionized ISE [Moles/Vol] 4.7 mg/dL 4.5 - 5.3 mg/dL [facility] CO2 (Bld) [Partial pressure] 40.7 mm[Hg] [facility] Glucose [Mass/Vol] 93 mg/dL 65 - 99 mg/dL [facility] HCO3 (Bld) [Moles/Vol] 19.1 mmol/L Low [facility] Hematocrit (Bld) [Volume fraction] 32 % Low 35 - 47 % [facility] Hemoglobin (Bld) [Mass/Vol] 10.6 g/dL Low 11.7 - 15.5 g/dL [facility] Interpretation and review of laboratory results Abnormal [facility] Oxygen (Bld) [Partial pressure] 145 mm[Hg] High [facility] Oxygen/Inspired gas setting [Volume Fraction] Ventilator 100 % [facility] pH (Bld) 7.28 [pH] Low 7.350 - 7.450 [facility] Potassium [Moles/Vol] 6.6 mmol/L Critically high 3.5 - 5.0 mmol/L [facility] Specimen site Narrative [facility] Specimen type Nom (Spec) Arterial [facility] PROTIME AND INRon 01-13-2025 INR Coag (PPP) [Relative time] 1.8 {INR} High 0.9-1.2 [facility] Comment on above: Performed By: #### P INR, CBC, BMP ####[facility] ([id number])[address], [address] [place] [address] PT Coag (PPP) [Time] 20.7 s High 9.8-13.2 [facility] Comment on above: Performed By: #### P INR, CBC, BMP ####[facility] ([id number])[address], [address] [place] [address] Protime & INRon 01-13-2025 INR Coag (PPP) [Relative time] 1.8 {INR} High [facility] Interpretation and review of laboratory results Abnormal [facility] PT Coag (PPP) [Time] 20.7 s High [facility] RAPID CARDIACon 01-13-2025 VINICIUS'S TEST Normal [facility] Comment on above: Performed By: #### A FAB5 ####[facility] ([id number])2141 [place] [address] BASE,DEFICIT 7.6 MMOL/L High 0.0-2.0 [facility] Comment on above: Performed By: #### A FAB5 ####[facility] ([id number])2141 [place] [address] Body temperature 98.6 [degF] Normal 37.0 [facility] Comment on above: Performed By: #### A FAB5 ####[facility] ([id number])2141 [place] [address] Glucose [Mass/Vol] 93 mg/dL Normal 65-99 [facility] Comment on above: Performed By: #### A FAB5 ####[facility] ([id number])2141 [place] [address] HCO3 (Bld) [Moles/Vol] 19.1 mmol/L Low 22-26 [facility] Comment on above: Performed By: #### A FAB5 ####[facility] ([id number])2141 [place] [address] Hematocrit (Bld) [Volume fraction] 32 % Low 35-47 [facility] Comment on above: Performed By: #### A FAB5 ####[facility] ([id number])2141 [place] [address] Hemoglobin (Bld) [Mass/Vol] 10.6 g/dL Low 11.7-15.5 [facility] Comment on above: Performed By: #### A FAB5 ####[facility] ([id number])2141 [place] [address] INSP. O2 CONC. 100 % Normal [facility] Comment on above: Performed By: #### A FAB5 ####[facility] ([id number])2141 [place] [address] IONIZED CALCIUM 4.7 mg/dL Normal 4.5-5.3 [facility] Comment on above: Performed By: #### A FAB5 ####[facility] ([id number])2141 [place] [address] Oxygen (Bld) [Partial pressure] 145 mm[Hg] High 80-100 [facility] Comment on above: Performed By: #### A FAB5 ####[facility] ([id number])2141 [place] [address] Oxygen saturation in Blood 99.3 % Normal >90 [facility] Comment on above: Performed By: #### A FAB5 ####[facility] ([id number])2141 [place] [address] PCO2 40.7 MMHG Normal 35-45 [facility] Comment on above: Performed By: #### A FAB5 ####[facility] ([id number])2141 [place] [address] pH (Bld) 7.280 [pH] Low 7.350-7.45 0 [facility] Comment on above: Performed By: #### A FAB5 ####[facility] ([id number])2141 [place] [address] Potassium [Moles/Vol] 6.6 mmol/L Critically high 3.5-5.0 [facility] Comment on above: Performed By: #### A FAB5 ####[facility] ([id number])2141 [place] [address] SAMPLE SITE TERRA Normal [facility] Comment on above: Performed By: #### A FAB5 ####[facility] ([id number])2141 [place] [address] SAMPLE TYPE Arterial Normal [facility] Comment on above: Performed By: #### A FAB5 ####[facility] ([id number])2141 [place] [address] Type and screenon 01-13-2025 ABO A [facility] Rh Nom (Bld) Positive [facility] XR TIBIA FIBULA LT MIN 2 VWS on 01-13-2025 XR TIBIA FIBULA LT MIN 2 VWS Normal [facility] XR TIBIA FIBULA LT MIN 2 VWS Normal [facility] XR Tibia and Fibula - left 2 Viewson 01-13-2025 EXAM: XR TIBIA FIBUL A LT MIN 2 VWS CLINICAL INFORMATION: s/p ORIF. COMPARISON: 01/12/2025 FINDINGS: There are postsurgical changes compatible with interval tibial ORIF with an intramedullary harjit and medial plate and screws transfixing fractures of the proximal tibia. Changes of pre-existing knee arthroplasty and femoral ORIF are noted. Soft tissue gas is compatible with the patient's immediate postoperative status. IMPRESSION: Postsurgical changes status post interval tibial ORIF, as above. Immediate postoperative changes are noted. Finalized by Rafa Cifuentes MD on 01/13/2025 10:25 PM Rafa Agrawal MD - 01/13/2025 EXAM: XR TIBIA FIBULA LT MIN 2 VWS CLINICAL INFORMATION: s/p ORIF. COMPARISON: 01/12/2025 FINDINGS: There are postsurgical changes compatible with interval tibial ORIF with an intramedullary harjit and medial plate and screws transfixing fractures of the proximal tibia. Changes of pre-existing knee arthroplasty and femoral ORIF are noted. Soft tissue gas is compatible with the patient's immediate postoperative status. IMPRESSION: Postsurgical changes status post interval tibial ORIF, as above. Immediate postoperative changes are noted. Finalized by Rafa Cifuentes MD on 01/13/2025 10:25 PM [facility] EXAM: XR TIBIA FIBUL A LT MIN 2 VWS CLINICAL INFORMATION: orif left tibia. COMPARISON: 01/12/2025 FINDINGS: Intraoperative fluoroscopy was provided to the ordering clinical service. There are 28 spot images demonstrating tibial ORIF with a plate and screws. Again seen are changes of knee arthroplasty and femoral ORIF. Reference Air Kerma: 6.94 mGy IMPRESSION: Intraoperative fluoroscopy was provided to the ordering clinical service, as above. Finalized by Rafa Cifuentes MD on 01/13/2025 10:23 PM Rafa Agrawal MD - 01/13/2025 EXAM: XR TIBIA FIBULA LT MIN 2 VWS CLINICAL INFORMATION: orif left tibia. COMPARISON: 01/12/2025 FINDINGS: Intraoperative fluoroscopy was provided to the ordering clinical service. There are 28 spot images demonstrating tibial ORIF with a plate and screws. Again seen are changes of knee arthroplasty and femoral ORIF. Reference Air Kerma: 6.94 mGy IMPRESSION: Intraoperative fluoroscopy was provided to the ordering clinical service, as above. Finalized by Rafa Cifuentes MD on 01/13/2025 10:23 PM [facility] Radiology Study observation (narrative) [facility] Radiology Study observation (narrative) [facility] XR Tibia and Fibula - left 2 ViewsOrdered By: Rafa Cifuentes on 01-13-2025 [facility] Work Phone: APTTon 01-12-2025 aPTT Coag (PPP) [Time] 23 s Low [facility] BASIC METABOLIC PANLon 01-12 Anion gap [Moles/Vol] 11 mmol/L Normal 5-15 [facility] Comment on above: Performed By: #### B FIORELLA GIRALDOR, 89567-6 ####[facility] ([id number])[address], [address] [place] [address] Calcium [Mass/Vol] 8.7 mg/dL Normal 8.5-10.5 [facility] Comment on above: Performed By: #### B FIORELLA GIRALDOR, 11673-0 ####[facility] ([id number])[address], [address] [place] [id number] Chloride [Moles/Vol] 108 mmol/L Normal 98-109 [facility] Comment on above: Performed By: #### B KRISTAL PINR, [id number] ####[facility] ([id number])[address], [address] [place] [address] CO2 [Moles/Vol] 19 mmol/L Low 22-32 [facility] Comment on above: Performed By: #### B KRISTAL PINR, [id number] ####[facility] ([id number])[address], [address], [place] [address] Creatinine [Mass/Vol] 2.13 mg/dL High 0.40-1.00 [facility] Comment on above: Result Comment: METH OD TRACEABLE TO IDMS STANDARD Performed By: #### B NICOLE GIRALDO, [id number] ####[facility] ([id number])[address] [address], [place] [address] GFR/1.73 sq M.predicted among non-blacks MDRD (S/P/Bld) [Vol rate/Area] 24 mL/min/{1.73_m2} Low >59 [facility] Comment on above: Result Comment: Repo rted eGFR is based on theCKD-EPI 2020 equation that doesnot use a race coefficient. Performed By: #### B NICOLE GIRALDO, [id number] ####[facility] ([id number])[address] [address], [place] [address] Glucose [Mass/Vol] 103 mg/dL High 65-99 [facility] Comment on above: Performed By: #### B NICOLE GIRALDO, 38144-5 ####[facility] ([id number])[address] [address], [place] [address] Potassium [Moles/Vol] 3.8 mmol/L Normal 3.5-5.0 [facility] Comment on above: Performed By: #### B NICOLE GIRALDO, 46383-2 ####[facility] ([id number])[address] [address], [place] [address] Sodium [Moles/Vol] 138 mmol/L Normal 134-146 [facility] Comment on above: Performed By: #### B NICOLE GIRALDO, [id number] ####[facility] ([id number])[address] [address], [place] [address] Urea nitrogen [Mass/Vol] 57 mg/dL High 5-27 [facility] Comment on above: Performed By: #### B FIORELLA GIRALDOR, 02057-2 ####[facility] ([id number])[address] [facility], [address] [place], [place] [id number] Basic Metabolic Panelon 04- Anion gap [Moles/Vol] 11 mmol/L 5 - 15 mmol/L [facility] Calcium [Mass/Vol] 8.7 mg/dL 8.5 - 10. 5 mg/dL [facility] Chloride [Moles/Vol] 108 mmol/L 98 - 109 mmol/L [facility] CO2 [Moles/Vol] 19 mmol/L Low 22 - 32 mmol/L [facility] Creatinine [Mass/Vol] 2.13 mg/dL High 0.40 - 1.00 mg/dL [facility] Comment on above: METHOD TRACEABLE TO [facility] STANDARD eGFR (CKD-EPI)non-race dependent 24 Low - PINF [facility] Comment on above: Reported eGFR is based on the CKD-EPI 2020 equation that does not use a race coefficient. Glucose [Mass/Vol] 103 mg/dL High 65 - 99 mg/dL [facility] Interpretation and review of laboratory results Abnormal [facility] Potassium [Moles/Vol] 3.8 mmol/L 3.5 - 5.0 mmol/L [facility] Sodium [Moles/Vol] 138 mmol/L 134 - 146 mmol/L [facility] Urea nitrogen [Mass/Vol] 57 mg/dL High 5 - 27 mg/dL [facility] CT BRAIN WO CONTon CT BRAIN WO CONT Normal [facility] CT Head WO contraston 2024 CLINICAL INFORMATION : s/p fall with head injury COMPARISON: 10/05/2022. PROCEDURE: Routine CT Head obtained without contrast. All CT scans at this facility use dose modulation, iterative reconstruction, and/or weight based dosing when appropriate to reduce radiation dose to as low as reasonably achievable. FINDINGS: No acute intracranial hemorrhage. No mass effect or midline shift. No extra-axial fluid collections. The ventricles and sulci are prominent consistent with global atrophy. Low-attenuation areas identified in the periventricular white matter consistent with microvascular ischemia. No depressed calvarial fracture. IMPRESSION: * No acute intracranial findings by CT. Finalized by Roel Nino MD on 01/12/2025 6:32 PM [facility] Roel Nino MD - 01/12/2025 CLINICAL INFORMATION: s/p fall with head injury COMPARISON: 10/05/2022. PROCEDURE: Routine CT Head obtained without contrast. All CT scans at this facility use dose modulation, iterative reconstruction, and/or weight based dosing when appropriate to reduce radiation dose to as low as reasonably achievable. FINDINGS: No acute intracranial hemorrhage. No mass effect or midline shift. No extra-axial fluid collections. The ventricles and sulci are prominent consistent with global atrophy. Low-attenuation areas identified in the periventricular white matter consistent with microvascular ischemia. No depressed calvarial fracture. IMPRESSION: * No acute intracranial findings by CT. Finalized by Roel Nino MD on 01/12/2025 6:32 PM [facility] Radiology Study observation (narrative) [facility] CT Head WO contrastOrdered B y: Roel Nino on 01-12-2025 [facility] Work Phone: CT KNEE LT WO CONTon 025 CT KNEE LT WO CONT Normal [facility] CT Knee - left WO contraston 01-12-2025 CT KNEE LT WO CONT CLINICAL INFORMATION: Tibia fracture, eval component, pre op planning COMPARISON: None. PROCEDURE: Routine CT of the left knee was obtained without contrast. Sagittal and coronal reformats were obtained from the axial data. Automated exposure control was utilized. All CT scans at this facility use dose modulation, iterative reconstruction, and/or weight based dosing when appropriate to reduce radiation dose to as low as reasonably achievable. FINDINGS: Extensive edema and stranding present in the soft tissues. Lipohemarthrosis is suspected. Lateral soft tissue swelling is noted. Patella is intact. Surgical fixation of the femur. Nondisplaced transversely oriented fracture of the proximal tibia involving the distal tip of the tibial stem of the knee prosthesis. There is a nondisplaced fracture of the proximal fibula. There is slight angulation of the tibial fracture. IMPRESSION: * Left knee arthroplasty with proximal tibial periprosthetic fracture as well as fibular fracture. * Edema and stranding in the soft tissues, cannot exclude lipohemarthrosis. * Please see above for further details. Finalized by Roel Nino MD on 01/12/2025 9:40 PM [facility] Roel Nino MD - 01/12/2025 CT KNEE LT WO CONT CLINICAL INFORMATION: Tibia fracture, eval component, pre op planning COMPARISON: None. PROCEDURE: Routine CT of the left knee was obtained without contrast. Sagittal and coronal reformats were obtained from the axial data. Automated exposure control was utilized. All CT scans at this facility use dose modulation, iterative reconstruction, and/or weight based dosing when appropriate to reduce radiation dose to as low as reasonably achievable. FINDINGS: Extensive edema and stranding present in the soft tissues. Lipohemarthrosis is suspected. Lateral soft tissue swelling is noted. Patella is intact. Surgical fixation of the femur. Nondisplaced transversely oriented fracture of the proximal tibia involving the distal tip of the tibial stem of the knee prosthesis. There is a nondisplaced fracture of the proximal fibula. There is slight angulation of the tibial fracture. IMPRESSION: * Left knee arthroplasty with proximal tibial periprosthetic fracture as well as fibular fracture. * Edema and stranding in the soft tissues, cannot exclude lipohemarthrosis. * Please see above for further details. Finalized by Roel Nino MD on 01/12/2025 9:40 PM [facility] Radiology Study observation (narrative) [facility] ECG 12 leadOrdered By: Regine Todd on 01-12-2025 [facility] No Panel Informationon 01-12 Interpretation and review of laboratory results Abnormal [facility] PROTIME AND INRon 01-12-2025 INR Coag (PPP) [Relative time] 2.6 {INR} High 0.9-1.2 [facility] Comment on above: Performed By: #### B MP, PINR, [id number] ####[facility] ([id number])[address], [place] [address] PT Coag (PPP) [Time] 29.3 s High 9.8-13.2 [facility] Comment on above: Performed By: #### B KRISTAL, NICOLE, 99027-8 ####[facility] ([id number])[address], [address], [place] [address] Protime & INRon 01-12-2025 INR Coag (PPP) [Relative time] 2.6 {INR} High [facility] PT Coag (PPP) [Time] 29.3 s High [facility] XR CHEST 1 VWon 01-12-2025 XR CHEST 1 VW Normal [facility] XR CLAVICLE LTon 01-12-2025 XR CLAVICLE LT XR CLAVICLE LT XR CLAVICLE LT CLINICAL INFORMATION: Eval for fx COMPARISON: None. IMPRESSION: * No fracture. Moderate degenerative changes. Finalized by Roel Nino MD on 01/12/2025 8:53 PM Normal [facility] XR Chest Single viewon 01-12 CHEST 1 VIEW HISTORY: Preop COMPARISON: 06/02/2024 FINDINGS: No focal airspace disease, pulmonary edema, pleural effusions, or pneumothorax. Normal cardiomediastinal silhouette. IMPRESSION: No acute cardiopulmonary disease. Finalized by Isaías Sykes MD on 01/12/2025 10:08 PM SECTRAPAIsaías Ghotra MD - 01/12/2025 CHEST 1 VIEW HISTORY: Preop COMPARISON: 06/02/2024 FINDINGS: No focal airspace disease, pulmonary edema, pleural effusions, or pneumothorax. Normal cardiomediastinal silhouette. IMPRESSION: No acute cardiopulmonary disease. Finalized by Isaías Sykes MD on 01/12/2025 10:08 PM [facility] Radiology Study observation (narrative) [facility] XR Chest Single viewOrdered By: Isaías Sykes on 01-12-2025 [facility] Work Phone: XR Clavicle - left Viewson 0 01-12-2025 XR CLAVICLE LT CLINICAL INFORMATION: Eval for fx COMPARISON: None. IMPRESSION: * No fracture. Moderate degenerative changes. Finalized by Roel Nino MD on 01/12/2025 8:53 PM Roel Martin MD - 01/12/2025 XR CLAVICLE LT CLINICAL INFORMATION: Eval for fx COMPARISON: None. IMPRESSION: * No fracture. Moderate degenerative changes. Finalized by Roel Nino MD on 01/12/2025 8:53 PM [facility] Radiology Study observation (narrative) [facility] XR FEMUR LT 2+ VIEWSon 01-12 XR FEMUR LT 2+ VIEWS Normal [facility] XR Femur - left 2 Viewson XR FEMUR LT 2+ VIEWS CLINICAL INFORMATION: s/p fall. Leg pain. COMPARISON: 11/15/2024. IMPRESSION: * Soft tissue swelling overlying the proximal femur. Rounded density measuring 8.1 cm, hematoma or other process is not excluded. * Surgical fixation of the distal femur with anatomic alignment of fracture, knee arthroplasty present. No change in alignment. Finalized by Roel Nino MD on 01/12/2025 6:56 PM Roel Martin MD - 01/12/2025 XR FEMUR LT 2+ VIEWS CLINICAL INFORMATION: s/p fall. Leg pain. COMPARISON: 11/15/2024. IMPRESSION: * Soft tissue swelling overlying the proximal femur. Rounded density measuring 8.1 cm, hematoma or other process is not excluded. * Surgical fixation of the distal femur with anatomic alignment of fracture, knee arthroplasty present. No change in alignment. Finalized by Roel Nino MD on 01/12/2025 6:56 PM [facility] Radiology Study observation (narrative) [facility] XR HIP LT 2-3 VIEWS W OR WO PELVISon 01-12-2025 XR HIP LT 2-3 VIEWS W OR WO PELVIS Normal [facility] XR Pelvis and Hip - left 2 V iewson 01-12-2025 CLINICAL INFORMATION : s/p fall TECHNIQUE: XR HIP LT 2-3 VIEWS W OR WO PELVIS 3 views left hip were obtained. The exam is limited. Femoral neck appears intact. No intratrochanteric abnormality noted to within the limits of this exam. Pelvic ring unremarkable. Crosstable lateral view is nondiagnostic. IMPRESSION: No acute findings. Finalized by Sathya Carroll MD on 01/12/2025 6:52 PM Sathya Lindquist M D - 01/12/2025 CLINICAL INFORMATION: s/p fall TECHNIQUE: XR HIP LT 2-3 VIEWS W OR WO PELVIS 3 views left hip were obtained. The exam is limited. Femoral neck appears intact. No intratrochanteric abnormality noted to within the limits of this exam. Pelvic ring unremarkable. Crosstable lateral view is nondiagnostic. IMPRESSION: No acute findings. Finalized by Sathya Carroll MD on 01/12/2025 6:52 PM [facility] Radiology Study observation (narrative) [facility] XR Pelvis and Hip - left 2 V iewsOrdered By: Sathya Carroll on 01-12-2025 [facility] Work Phone: XR SHOULDER LT MIN 2 VWSon 0 01-12-2025 XR SHOULDER LT MIN 2 VWS Normal [facility] XR Shoulder - left 2 Viewson 01-12-2025 CLINICAL INFORMATION : Pain, rule out fracture TECHNIQUE: XR SHOULDER LT MIN 2 VWS 3 views left shoulder were obtained. AC joint degenerative changes noted. Humeral head is high riding. No fracture appreciated. No dislocation. IMPRESSION: AC joint degenerative changes and probable chronic rotator cuff tear. Finalized by Sathya Carroll MD on 01/12/2025 8:26 PM Sathya Lindquist M D - 01/12/2025 CLINICAL INFORMATION: Pain, rule out fracture TECHNIQUE: XR SHOULDER LT MIN 2 VWS 3 views left shoulder were obtained. AC joint degenerative changes noted. Humeral head is high riding. No fracture appreciated. No dislocation. IMPRESSION: AC joint degenerative changes and probable chronic rotator cuff tear. Finalized by Sathya Carroll MD on 01/12/2025 8:26 PM [facility] Radiology Study observation (narrative) [facility] XR TIBIA FIBULA LT MIN 2 VWS on 01-12-2025 XR TIBIA FIBULA LT MIN 2 VWS Normal [facility] XR Tibia and Fibula - left 2 Viewson 01-12-2025 XR TIBIA FIBULA LT M IN 2 VWS CLINICAL INFORMATION: s/p fall. Leg pain. COMPARISON: 05/17/2021. IMPRESSION: * Transverse fracture of the proximal tibia near the stem of the tibial component of the patient's knee prosthesis. Knee radiographs are recommended. * Cannot exclude proximal fibular fracture. * Surgical fixation of the distal femur with fracture in this region again noted. * Osteopenia and degenerative changes present. * Soft tissue swelling. Finalized by Roel Nino MD on 01/12/2025 6:57 PM [facility] Roel Nino MD - 01/12/2025 XR TIBIA FIBULA LT MIN 2 VWS CLINICAL INFORMATION: s/p fall. Leg pain. COMPARISON: 05/17/2021. IMPRESSION: * Transverse fracture of the proximal tibia near the stem of the tibial component of the patient's knee prosthesis. Knee radiographs are recommended. * Cannot exclude proximal fibular fracture. * Surgical fixation of the distal femur with fracture in this region again noted. * Osteopenia and degenerative changes present. * Soft tissue swelling. Finalized by Roel Nino MD on 01/12/2025 6:57 PM [facility] Radiology Study observation (narrative) [facility] aPTT Coag (PPP) [Time]on aPTT Coag (Bld) [Time] 23 s Low 26-37 [facility] Comment on above: Performed By: #### B MP, PINR, [id number] ####[facility] ([id number])[address], [address] [place] [address] Protime & INRon 01-10-2025 INR Coag (PPP) [Relative time] 2.5 {INR} Abnormal 0.9 - 1.1 [facility] Interpretation and review of laboratory results Abnormal [facility] Protime & INRon 01-06-2025 INR Coag (PPP) [Relative time] 2.3 {INR} Abnormal 0.9 - 1.1 [facility] Interpretation and review of laboratory results Abnormal [facility] Protime & INRon 12-30-2024 INR Coag (PPP) [Relative time] 1.1 {INR} 0.9 - 1.1 [facility] Protime & INRon 12-26-2024 INR Coag (PPP) [Relative time] 1.4 {INR} Abnormal 0.9 - 1.1 [facility] Interpretation and review of laboratory results Abnormal [facility] XR KNEE LT 3 VWSon XR KNEE LT 3 VWS XR KNEE LT 3 VWS Comparison November 17 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 Prosthesis similar appearance to prior study. Plate and screws transfixing supracondylar fracture similar prior study Finalized by Jose R Rodriguez MD on 12/14/2024 9:48 PM Normal [place] PROTIME AND INRon 11-22-2024 INR Coag (PPP) [Relative time] 1.4 {INR} High 0.9-1.2 [facility] Comment on above: Performed By: #### P INR ####[facility] ([id number])[address], [address] [place] [address] PT Coag (PPP) [Time] 15.6 s High 9.8-13.2 [facility] Comment on above: Performed By: #### P INR ####[facility] ([id number])[address], [address] [place] [address] BASIC METABOLIC PANLon 11-21 Anion gap [Moles/Vol] 7 mmol/L Normal 5-15 [facility] Comment on above: Performed By: #### C BCA, BMP, , PINR ####[facility] ([id number])[address], [address], [place] [address] Calcium [Mass/Vol] 8.4 mg/dL Low 8.5-10.5 [facility] Comment on above: Performed By: #### C BCA, BMP, , PINR ####[facility] ([id number])[address], [address], [place] [address] Chloride [Moles/Vol] 111 mmol/L High 98-109 [facility] Comment on above: Performed By: #### C BCA, BMP, , PINR ####[facility] ([id number])[address], [address] [place] [address] CO2 [Moles/Vol] 23 mmol/L Normal 22-32 [facility] Comment on above: Performed By: #### C BCA, BMP, , PINR ####[facility] ([id number])[address], [address] [address] Creatinine [Mass/Vol] 1.33 mg/dL High 0.40-1.00 [facility] Comment on above: Result Comment: METH OD TRACEABLE TO IDMS STANDARD Performed By: #### C BCA, BMP, , PINR ####[facility] ([id number])[address], [address], [place] [address] GFR/1.73 sq M.predicted among non-blacks MDRD (S/P/Bld) [Vol rate/Area] 43 mL/min/{1.73_m2} Low >59 [facility] Comment on above: Result Comment: Repo rted eGFR is based on theD-EPI 2020 equation that doesnot use a race coefficient. Performed By: #### C MAGALY MELGAR, , PINR ####[facility] ([id number])[address], [address], [place] [address] Glucose [Mass/Vol] 106 mg/dL High 65-99 [facility] Comment on above: Performed By: #### C MAGALY MELGAR, , PINR ####[facility] ([id number])[address] [address], [place] [address] Potassium [Moles/Vol] 4.1 mmol/L Normal 3.5-5.0 [facility] Comment on above: Performed By: #### C MAGALY MELGAR, , PINR ####[facility] ([id number])[address] [address] [place] [address] Sodium [Moles/Vol] 141 mmol/L Normal 134-146 [facility] Comment on above: Performed By: #### C MAGALY MELGAR, , PINR ####[facility] ([id number])[address] [address] [place] [address] Urea nitrogen [Mass/Vol] 29 mg/dL High 5-27 [facility] Comment on above: Performed By: #### C MAGALY MELGAR, , PINR ####[facility] ([id number])[address] [address], [place] [address] CBC AND AUTO DIFFon 02-24-20 25 ABSOLUTE BASOPHIL 0.0 X10E9/L Normal 0.0-0.2 [facility] Comment on above: Performed By: #### C MAGALY MELGAR, , PINR ####[facility] ([id number])[address] [address] [place] [address] ABSOLUTE NEUTROPHIL 5.0 X10E9/L Normal 1.5-6.6 [facility] Comment on above: Performed By: #### C TALIA, BMP, , PINR ####[facility] ([id number])[address] [place] [address] Basophils/100 WBC (Bld) 0.6 % Normal [facility] Comment on above: Performed By: #### C TALIA, BMP, , PINR ####[facility] ([id number])[address], [place] [address] Eosinophils (Bld) [#/Vol] 0.2 10*3/uL Normal 0.0-0.4 [facility] Comment on above: Performed By: #### C TALIA, BMP, , PINR ####[facility] ([id number])[address] [address] Eosinophils/100 WBC (Bld) 2.6 % Normal [facility] Comment on above: Performed By: #### C TALIA, BMP, , PINR ####[facility] ([id number])[address], [place] [address] Erythrocyte distribution width (RBC) [Ratio] 13.9 % Normal 11.5-15.0 [facility] Comment on above: Performed By: #### C TALIA, BMP, , PINR ####[facility] ([id number])[address] [place] [address] Hematocrit (Bld) [Volume fraction] 27.6 % Low 35-47 [facility] Comment on above: Performed By: #### C TALIA, BMP, , PINR ####[facility] ([id number])[address] [place] [address] Hemoglobin (Bld) [Mass/Vol] 9.2 g/dL Low 11.7-15.5 [facility] Comment on above: Performed By: #### C TALIA, BMP, , PINR ####[facility] ([id number])[address], [place] [address] Lymphocytes (Bld) [#/Vol] 1.3 10*3/uL Normal 1.0-3.5 [facility] Comment on above: Performed By: #### C TALIA, BMP, , PINR ####[facility] ([id number])[address] [address] Lymphocytes/100 WBC (Bld) 17.6 % Normal [facility] Comment on above: Performed By: #### C TALIA, BMP, , PINR ####[facility] ([id number])[address] [place] [address] MCH (RBC) [Entitic mass] 31.7 pg Normal 27-34 [facility] Comment on above: Performed By: #### C TALIA, BMP, , PINR ####[facility] ([id number])[address] [place] [address] MCHC (RBC) [Mass/Vol] 33.4 g/dL Normal 32-36 [facility] Comment on above: Performed By: #### C TALIA, BMP, , PINR ####[facility] ([id number])[address], [place] [address] MCV (RBC) [Entitic vol] 95 fL Normal 80-100 [facility] Comment on above: Performed By: #### C BCA, BMP, , PINR ####[facility] ([id number])[address] [place] [address] Monocytes (Bld) [#/Vol] 0.7 10*3/uL Normal 0-0.9 [facility] Comment on above: Performed By: #### C MAGALY MELGAR, , PINR ####[facility] ([id number])[address], [place] [address] Monocytes/100 WBC (Bld) 10.0 % Normal [facility] Comment on above: Performed By: #### C MAGALY MELGAR, , PINR ####[facility] ([id number])[address] [address] Neutrophils/100 WBC (Bld) 69.2 % Normal [facility] Comment on above: Performed By: #### C MAGALY MELGAR, , PINR ####[facility] ([id number])[address] [address] Platelet mean volume (Bld) [Entitic vol] 7.5 fL Normal 7-12 [facility] Comment on above: Performed By: #### MAGALY Ruiz BCA, , PINR ####[facility] ([id number])[address] [address] Platelets (Bld) [#/Vol] 184 10*3/uL Normal 150-450 [facility] Comment on above: Performed By: #### MAGALY Ruiz BCA, , PINR ####[facility] ([id number])[address] [place] [address] RBC COUNT 2.91 X10E12/L Low 3.80-5.20 [facility] Comment on above: Performed By: #### Sara MELGAR BMP, , PINR ####[facility] ([id number])[address] [place] [address] WBC (Bld) [#/Vol] 7.2 10*3/uL Normal 4.0-11.0 [facility] Comment on above: Performed By: #### C TALIA BMP, , PINR ####[facility] ([id number])[address] [address] MAGNESIUMon 11-21-2024 Magnesium [Mass/Vol] 1.8 mg/dL Normal 1.8-2.6 [facility] Comment on above: Performed By: #### C TALIA, BMP, , PINR ####[facility] ([id number])[address], [address] [place] [address] PROTIME AND INRon 11-21-2024 INR Coag (PPP) [Relative time] 1.5 {INR} High 0.8-1.1 [facility] Comment on above: Performed By: #### C TALIA BMP, , PINR ####[facility] ([id number])[address], [place] [address] PT Coag (PPP) [Time] 16.6 s High 9.8-13.2 [facility] Comment on above: Performed By: #### C TALIA BMP, , PINR ####[facility] ([id number])[address], [place] [address] BASIC METABOLIC PANLon 11-20 Anion gap [Moles/Vol] 7 mmol/L Normal 5-15 [facility] Comment on above: Performed By: #### C TALIA, BMP, , PINR ####[facility] ([id number])[address], [address] [place] [address] Calcium [Mass/Vol] 8.2 mg/dL Low 8.5-10.5 [facility] Comment on above: Performed By: #### C TALIA, BMP, , PINR ####[facility] ([id number])[address], [address], [place] [address] Chloride [Moles/Vol] 109 mmol/L Normal 98-109 [facility] Comment on above: Performed By: #### C MAGALY MELGAR, , PINR ####[facility] ([id number])[address], [address], [place] [address] CO2 [Moles/Vol] 23 mmol/L Normal 22-32 [facility] Comment on above: Performed By: #### C MAGALY MELGAR, , PINR ####[facility] ([id number])[address], [address], [place] [address] Creatinine [Mass/Vol] 1.35 mg/dL High 0.40-1.00 [facility] Comment on above: Result Comment: METH OD TRACEABLE TO IDMS STANDARD Performed By: #### C MAGALY MELGAR, , PINR ####[facility] ([id number])[address] [address], [place] [address] GFR/1.73 sq M.predicted among non-blacks MDRD (S/P/Bld) [Vol rate/Area] 42 mL/min/{1.73_m2} Low >59 [facility] Comment on above: Result Comment: Repo rted eGFR is based on theCKD-EPI 2020 equation that doesnot use a race coefficient. Performed By: #### C MAGALY MELGAR, , PINR ####[facility] ([id number])[address], [address], [place] [address] Glucose [Mass/Vol] 96 mg/dL Normal 65-99 [facility] Comment on above: Performed By: #### C MAGALY MELGAR, , PINR ####[facility] ([id number])[address], [address], [place] [address] Potassium [Moles/Vol] 3.9 mmol/L Normal 3.5-5.0 [facility] Comment on above: Performed By: #### C MAGALY MELGAR, , PINR ####[facility] ([id number])[address] [address] Sodium [Moles/Vol] 139 mmol/L Normal 134-146 [facility] Comment on above: Performed By: #### C MAGALY MELGAR, , PINR ####[facility] ([id number])[address] [address] Urea nitrogen [Mass/Vol] 33 mg/dL High 5-27 [facility] Comment on above: Performed By: #### C MAGALY MELGAR, , PINR ####[facility] ([id number])[address] [address] CBC AND AUTO DIFFon 11-20-19 25 ABSOLUTE BASOPHIL 0.0 X10E9/L Normal 0.0-0.2 [facility] Comment on above: Performed By: #### C MAGALY MELGAR, , PINR ####[facility] ([id number])[address] [address] ABSOLUTE NEUTROPHIL 4.6 X10E9/L Normal 1.5-6.6 [facility] Comment on above: Performed By: #### C MAGALY MELGAR, , PINR ####[facility] ([id number])[address] [address] [address] Basophils/100 WBC (Bld) 0.4 % Normal [facility] Comment on above: Performed By: #### C MAGALY MELGAR, , PINR ####[facility] ([id number])[address], [address] [address] Eosinophils (Bld) [#/Vol] 0.1 10*3/uL Normal 0.0-0.4 [facility] Comment on above: Performed By: #### C MAGALY MELGAR, , PINR ####[facility] ([id number])[address], [address] [place] [address] Eosinophils/100 WBC (Bld) 1.7 % Normal [facility] Comment on above: Performed By: #### C TALIA, MAGALY, , PINR ####[facility] ([id number])[address], [address] [place] [address] Erythrocyte distribution width (RBC) [Ratio] 14.2 % Normal 11.5-15.0 [facility] Comment on above: Performed By: #### C TALIA, MAGALY, , PINR ####[facility] ([id number])[address], [address] [place] [address] Hematocrit (Bld) [Volume fraction] 27.4 % Low 35-47 [facility] Comment on above: Performed By: #### C MAGALY MELGAR, , PINR ####[facility] ([id number])[address] [address] [place] [address] Hemoglobin (Bld) [Mass/Vol] 8.9 g/dL Low 11.7-15.5 [facility] Comment on above: Performed By: #### C MAGALY MELGAR, , PINR ####[facility] ([id number])[address] [address] [place] [address] Lymphocytes (Bld) [#/Vol] 0.9 10*3/uL Low 1.0-3.5 [facility] Comment on above: Performed By: #### C TALIA, BMP, , PINR ####[facility] ([id number])[address], [address] [place] [address] Lymphocytes/100 WBC (Bld) 14.0 % Normal [facility] Comment on above: Performed By: #### C TALIA BMP, , PINR ####[facility] ([id number])[address], [address], [place] [address] MCH (RBC) [Entitic mass] 31.4 pg Normal 27-34 [facility] Comment on above: Performed By: #### C TALIA, BMP, , PINR ####[facility] ([id number])[address], [address], [place] [address] MCHC (RBC) [Mass/Vol] 32.6 g/dL Normal 32-36 [facility] Comment on above: Performed By: #### C TALIA, BMP, , PINR ####[facility] ([id number])[address], [address] [address] MCV (RBC) [Entitic vol] 96 fL Normal 80-100 [facility] Comment on above: Performed By: #### C TALIA, BMP, , PINR ####[facility] ([id number])[address] [address] [place] [address] Monocytes (Bld) [#/Vol] 0.7 10*3/uL Normal 0-0.9 [facility] Comment on above: Performed By: #### Sara MELGAR BMP, , PINR ####[facility] ([id number])[address] [address], [place] [address] Monocytes/100 WBC (Bld) 10.7 % Normal [facility] Comment on above: Performed By: #### C TALIA, BMP, , PINR ####[facility] ([id number])[address] [address] [address] Neutrophils/100 WBC (Bld) 73.2 % Normal [facility] Comment on above: Performed By: #### C MAGALY MELGAR, , PINR ####[facility] ([id number])[address], [address] [address] Platelet mean volume (Bld) [Entitic vol] 7.8 fL Normal 7-12 [facility] Comment on above: Performed By: #### C TALIA, BMP, , PINR ####[facility] ([id number])[address], [address] [address] Platelets (Bld) [#/Vol] 145 10*3/uL Low 150-450 [facility] Comment on above: Performed By: #### C TALIA, BMP, , PINR ####[facility] ([id number])[address], [address], [place] [address] RBC COUNT 2.84 X10E12/L Low 3.80-5.20 [facility] Comment on above: Performed By: #### C TALIA, MAGALY, , PINR ####[facility] ([id number])[address] [address] [place] [address] WBC (Bld) [#/Vol] 6.3 10*3/uL Normal 4.0-11.0 [facility] Comment on above: Performed By: #### C TALIA, MAGALY, , PINR ####[facility] ([id number])[address], [address], [place] [address] MAGNESIUMon 11-20-2024 Magnesium [Mass/Vol] 1.8 mg/dL Normal 1.8-2.6 [facility] Comment on above: Performed By: #### C TALIA, BMP, , PINR ####[facility] ([id number])[address], [address], [place] [address] PROTIME AND INRon 11-20-2024 INR Coag (PPP) [Relative time] 1.6 {INR} High 0.8-1.1 [facility] Comment on above: Performed By: #### C TALIA BMP, , PINR ####[facility] ([id number])[address], [address], [place] [address] PT Coag (PPP) [Time] 18.1 s High 9.8-13.2 [facility] Comment on above: Performed By: #### C TALIA, BMP, , PINR ####[facility] ([id number])[address], [address] [place] [address] BASIC METABOLIC PANLon 11-19 Anion gap [Moles/Vol] 8 mmol/L Normal 5-15 [facility] Comment on above: Performed By: #### C TALIA BMP, , PINR ####[facility] ([id number])[address], [address], [place] [address] Calcium [Mass/Vol] 8.0 mg/dL Low 8.5-10.5 [facility] Comment on above: Performed By: #### C TALIA, BMP, , PINR ####[facility] ([id number])[address], [address] [place] [address] Chloride [Moles/Vol] 109 mmol/L Normal 98-109 [facility] Comment on above: Performed By: #### C TALIA, BMP, , PINR ####[facility] ([id number])[address], [address] [place] [address] CO2 [Moles/Vol] 19 mmol/L Low 22-32 [facility] Comment on above: Performed By: #### C BCA, BMP, , PINR ####[facility] ([id number])[address], [address], [place] [address] Creatinine [Mass/Vol] 1.74 mg/dL High 0.40-1.00 [facility] Comment on above: Result Comment: METH OD TRACEABLE TO IDMS STANDARD Performed By: #### C MAGALY MELGAR, , PINR ####[facility] ([id number])[address], [address] [place] [address] GFR/1.73 sq M.predicted among non-blacks MDRD (S/P/Bld) [Vol rate/Area] 31 mL/min/{1.73_m2} Low >59 [facility] Comment on above: Result Comment: Repo rted eGFR is based on theCKD-EPI 2020 equation that doesnot use a race coefficient. Performed By: #### C MAGALY MELGAR, , PINR ####[facility] ([id number])[address] [address], [place] [address] Glucose [Mass/Vol] 100 mg/dL High 65-99 [facility] Comment on above: Performed By: #### C MAGALY MELGAR, , PINR ####[facility] ([id number])[address] [address] [place] [address] Potassium [Moles/Vol] 4.1 mmol/L Normal 3.5-5.0 [facility] Comment on above: Performed By: #### C MAGALY MELGAR, , PINR ####[facility] ([id number])[address] [address] [place] [address] Sodium [Moles/Vol] 136 mmol/L Normal 134-146 [facility] Comment on above: Performed By: #### C MAGALY MELGAR, , PINR ####[facility] ([id number])[address], [address] [place] [address] Urea nitrogen [Mass/Vol] 39 mg/dL High 5-27 [facility] Comment on above: Performed By: #### C TALIA, [facility], , PINR ####[facility] ([id number])[address], [address] [address] CBC AND AUTO DIFFon 11-19-19 25 ABSOLUTE BASOPHIL 0.0 X10E9/L Normal 0.0-0.2 [facility] Comment on above: Performed By: #### C TALIA, BMP, , PINR ####[facility] ([id number])[address], [address] [address] ABSOLUTE NEUTROPHIL 3.7 X10E9/L Normal 1.5-6.6 [facility] Comment on above: Performed By: #### C TALIA, BMP, , PINR ####[facility] ([id number])[address], [address] [place] [address] Basophils/100 WBC (Bld) 0.3 % Normal [facility] Comment on above: Performed By: #### C TALIA, BMP, , PINR ####[facility] ([id number])[address], [address] [place] [address] Eosinophils (Bld) [#/Vol] 0.1 10*3/uL Normal 0.0-0.4 [facility] Comment on above: Performed By: #### Sara MELGAR BMP, , PINR ####[facility] ([id number])[address], [address] [place] [address] Eosinophils/100 WBC (Bld) 1.4 % Normal [facility] Comment on above: Performed By: #### C TALIA, BMP, , PINR ####[facility] ([id number])[address], [address] [address] Erythrocyte distribution width (RBC) [Ratio] 14.5 % Normal 11.5-15.0 [facility] Comment on above: Performed By: #### C TALIA [facility], , PINR ####[facility] ([id number])[address], [address] [place] [address] Hematocrit (Bld) [Volume fraction] 27.9 % Low 35-47 [facility] Comment on above: Performed By: #### Sara MELGAR [facility], , PINR ####[facility] ([id number])[address] [address] Hemoglobin (Bld) [Mass/Vol] 9.0 g/dL Low 11.7-15.5 [facility] Comment on above: Performed By: #### Sara MELGAR BMP, , PINR ####[facility] ([id number])[address] [address] Lymphocytes (Bld) [#/Vol] 0.9 10*3/uL Low 1.0-3.5 [facility] Comment on above: Performed By: #### Sara MELGAR [facility], , PINR ####[facility] ([id number])[address] [address] [address] Lymphocytes/100 WBC (Bld) 16.8 % Normal [facility] Comment on above: Performed By: #### C MAGALY MELGAR, , PINR ####[facility] ([id number])[address], [address], [place] [address] MCH (RBC) [Entitic mass] 31.1 pg Normal 27-34 [facility] Comment on above: Performed By: #### Sara MELGAR BMP, , PINR ####[facility] ([id number])[address] [address] MCHC (RBC) [Mass/Vol] 32.3 g/dL Normal 32-36 [facility] Comment on above: Performed By: #### C TALIA, BMP, , PINR ####[facility] ([id number])[address], [place] [address] MCV (RBC) [Entitic vol] 96 fL Normal 80-100 [facility] Comment on above: Performed By: #### Sara MELGAR, BMP, , PINR ####[facility] ([id number])[address], [address] [address] Monocytes (Bld) [#/Vol] 0.6 10*3/uL Normal 0-0.9 [facility] Comment on above: Performed By: #### Sara MELGAR, BMP, , PINR ####[facility] ([id number])[address], [address] [address] Monocytes/100 WBC (Bld) 11.4 % Normal [facility] Comment on above: Performed By: #### Sara MELGAR, BMP, , PINR ####[facility] ([id number])[address], [address] [place] [address], [place] [address] Neutrophils/100 WBC (Bld) 70.1 % Normal [facility] Comment on above: Performed By: #### Sara MELGAR, BMP, , PINR ####[facility] ([id number])[address], [address], [place] [address] Platelet mean volume (Bld) [Entitic vol] 7.5 fL Normal 7-12 [facility] Comment on above: Performed By: #### Sara MELGAR, BMP, , PINR ####[facility] ([id number])[address], [address] [place] [address] Platelets (Bld) [#/Vol] 144 10*3/uL Low 150-450 [facility] Comment on above: Performed By: #### C TALIA, [facility], , PINR ####[facility] ([id number])[address], [address] [address] RBC COUNT 2.90 X10E12/L Low 3.80-5.20 [facility] Comment on above: Performed By: #### C TALIA, [facility], , PINR ####[facility] ([id number])[address], [address] [place] [address] WBC (Bld) [#/Vol] 5.2 10*3/uL Normal 4.0-11.0 [facility] Comment on above: Performed By: #### C TALIA, [facility], , PINR ####[facility] ([id number])[address], [address] [place] [address] MAGNESIUMon 11-19-2024 Magnesium [Mass/Vol] 1.9 mg/dL Normal 1.8-2.6 [facility] Comment on above: Performed By: #### C TALIA [facility], , PINR ####[facility] ([id number])[address] [address] [place] [address] PROTIME AND INRon 11-19-2024 INR Coag (PPP) [Relative time] 1.6 {INR} High 0.8-1.1 [facility] Comment on above: Performed By: #### C TALIA, [facility], , PINR ####[facility] ([id number])[address], [place] [address] PT Coag (PPP) [Time] 18.6 s High 9.8-13.2 [facility] Comment on above: Performed By: #### C TALIA, BMP, , PINR ####[facility] ([id number])[address], [address], [place] [address] PROTIME AND INRon 11-18-2024 INR Coag (PPP) [Relative time] 1.7 {INR} High 0.8-1.1 [facility] Comment on above: Performed By: #### P INR ####[facility] ([id number])[address], [address] [place] [address] PT Coag (PPP) [Time] 18.9 s High 9.8-13.2 [facility] Comment on above: Performed By: #### P INR ####[facility] ([id number])[address] [place] [address] URINALYSISon 11-18-2024 Bilirubin Ql (U) Negative Normal NEG [facility] Comment on above: Performed By: #### U A ####[facility] ([id number])[address], [address] [place] [address], [place] [address] BLOOD/HGB Small Abnormal NEG [facility] Comment on above: Performed By: #### U A ####[facility] ([id number])[address] [address] [place] [address], [place] [address] Color (U) YELLOW Normal YELLOW [facility] Comment on above: Performed By: #### U A ####[facility] ([id number])[address], [address], [place] [address] Glucose Ql (U) Negative Normal NEG [facility] Comment on above: Performed By: #### U A ####[facility] ([id number])[address], [address] [place] [address] Ketones Ql (U) Negative Normal NEG [facility] Comment on above: Performed By: #### U A ####[facility] ([id number])[address], [address] [place] [address] Leukocyte esterase Test strip Ql (U) Large Abnormal NEG [facility] Comment on above: Performed By: #### U A ####[facility] ([id number])[address] [address] [place] [address] MUCOUS PRESENT Abnormal NONE [facility] Comment on above: Performed By: #### U A ####[facility] ([id number])[address] [address] [place] [address] Nitrite Ql (U) Negative Normal NEG [facility] Comment on above: Performed By: #### U A ####[facility] ([id number])[address] [address] [place] [address] pH (U) 6.5 [pH] Normal 5.0-8.5 [facility] Comment on above: Performed By: #### U A ####[facility] ([id number])[address] [address] [place] [address] Protein Ql (U) 300 mg/dL Abnormal NEG [facility] Comment on above: Performed By: #### U A ####[facility] ([id number])[address] [address] R.B.CELLS 247 /hpf High 0-5 [facility] Comment on above: Performed By: #### U A ####[facility] ([id number])[address] [address] [place] [address] Specific gravity (U) [Rel density] 1.013 Normal 1.003-1.03 5 [facility] Comment on above: Performed By: #### U A ####[facility] ([id number])[address] [address] TURBIDITY CLOUDY Abnormal CLEAR [facility] Comment on above: Performed By: #### U A ####[facility] ([id number])[address] [address] Urinalysis dipstick W Reflex Microscopic panel (U) URINE RECEIVED WITHOUT PRESERVATIVE-DELAYS IN TRANSPORT MAY AFFECT RESULTS.INTERPRET WITH CAUTION AND CLINICAL CORRELATION IS RECOMMENDED. Normal [facility] Comment on above: Performed By: #### U A ####[facility] ([id number])[address] [address] Urobilinogen (U) [Mass/Vol] mg/dL Normal <1.1 [facility] Comment on above: Performed By: #### U A ####[facility] ([id number])[address] [address] W.B.CELLS >720 High 0-5 [facility] Comment on above: Performed By: #### U A ####[facility] ([id number])[address] [address] WBC CLUMPS MANY Abnormal NONE [facility] Comment on above: Performed By: #### U A ####[facility] ([id number])[address] [address] URINE CULTUREon 11-18-2024 Bacteria identified Cx Nom (U) Susceptible [facility] Comment on above: Performed By: #### 6 30-4 ####[facility] ([id number])[address] [address] XR KNEE LT 1 OR 2 VWSon 10-30 XR KNEE LT 1 OR 2 VWS Normal [facility] CBC AND AUTO DIFFon 11-17-19 25 ABSOLUTE BASOPHIL 0.1 X10E9/L Normal 0.0-0.2 [facility] Comment on above: Performed By: #### C BCA, CMP ####[facility] ([id number])[address] [address] ABSOLUTE NEUTROPHIL 4.9 X10E9/L Normal 1.5-6.6 [facility] Comment on above: Performed By: #### C BCA, CMP ####[facility] ([id number])[address] [place] [address] Basophils/100 WBC (Bld) 1.0 % Normal [facility] Comment on above: Performed By: #### C BCA, CMP ####[facility] ([id number])[address] [place] [address] Eosinophils (Bld) [#/Vol] 0.1 10*3/uL Normal 0.0-0.4 [facility] Comment on above: Performed By: #### C BCA, CMP ####[facility] ([id number])[address], [place] [address] Eosinophils/100 WBC (Bld) 2.0 % Normal [facility] Comment on above: Performed By: #### C BCA, CMP ####[facility] ([id number])[address] [address] [place] [address] Erythrocyte distribution width (RBC) [Ratio] 14.9 % Normal 11.5-15.0 [facility] Comment on above: Performed By: #### C BCA, CMP ####[facility] ([id number])[address] [address] [place] [address] Hematocrit (Bld) [Volume fraction] 34.7 % Low 35-47 [facility] Comment on above: Performed By: #### C BCA, CMP ####[facility] ([id number])[address] [address] [place] [address] Hemoglobin (Bld) [Mass/Vol] 11.6 g/dL Low 11.7-15.5 [facility] Comment on above: Performed By: #### C BCA, CMP ####[facility] ([id number])[address] [address] [place] [address] Lymphocytes (Bld) [#/Vol] 1.2 10*3/uL Normal 1.0-3.5 [facility] Comment on above: Performed By: #### C BCA, CMP ####[facility] ([id number])[address] [place] [address] Lymphocytes/100 WBC (Bld) 17.4 % Normal [facility] Comment on above: Performed By: #### C BCA, CMP ####[facility] ([id number])[address] [address], [place] [address] MCH (RBC) [Entitic mass] 31.8 pg Normal 27-34 [facility] Comment on above: Performed By: #### C BCA, CMP ####[facility] ([id number])[address] [address], [place] [address] MCHC (RBC) [Mass/Vol] 33.3 g/dL Normal 32-36 [facility] Comment on above: Performed By: #### C TALIA, CMP ####[facility] ([id number])[address] [address] [place] [address] MCV (RBC) [Entitic vol] 95 fL Normal 80-100 [facility] Comment on above: Performed By: #### C BCA, CMP ####[facility] ([id number])[address] [address] [place] [address] Monocytes (Bld) [#/Vol] 0.6 10*3/uL Normal 0-0.9 [facility] Comment on above: Performed By: #### C BCA, CMP ####[facility] ([id number])[address] [address] [place] [address] Monocytes/100 WBC (Bld) 8.6 % Normal [facility] Comment on above: Performed By: #### C BCA, CMP ####[facility] ([id number])[address] [address] [address] Neutrophils/100 WBC (Bld) 71.0 % Normal [facility] Comment on above: Performed By: #### C BCA, CMP ####[facility] ([id number])[address], [place] [address] Platelet mean volume (Bld) [Entitic vol] 7.9 fL Normal 7-12 [facility] Comment on above: Performed By: #### C TALIA, CMP ####[facility] ([id number])[address] [address] [address] Platelets (Bld) [#/Vol] 177 10*3/uL Normal 150-450 [facility] Comment on above: Performed By: #### C TALIA, CMP ####[facility] ([id number])[address] [address], [place] [address] RBC COUNT 3.65 X10E12/L Low 3.80-5.20 [facility] Comment on above: Performed By: #### C TALIA, CMP ####[facility] ([id number])[address] [address] [place] [address] WBC (Bld) [#/Vol] 6.9 10*3/uL Normal 4.0-11.0 [facility] Comment on above: Performed By: #### C BCA, CMP ####[facility] ([id number])[address] [address] [address] COMPREHENSIVE METABOLIC PANE [place] 11-17-2024 Albumin [Mass/Vol] 3.5 g/dL Normal 3.2-5.3 [facility] Comment on above: Performed By: #### C BCA, CMP ####[facility] ([id number])[address], [address] [place] [address] ALP [Catalytic activity/Vol] 60 U/L Normal 39-130 [facility] Comment on above: Performed By: #### C BCA, CMP ####[facility] ([id number])[address], [address], [place] [address] ALT [Catalytic activity/Vol] 9 U/L Normal 0-31 [facility] Comment on above: Performed By: #### C BCA, CMP ####[facility] ([id number])[address], [address], [place] [address] Anion gap [Moles/Vol] 11 mmol/L Normal 5-15 [facility] Comment on above: Performed By: #### C BCA, CMP ####[facility] ([id number])[address], [address], [place] [address] AST [Catalytic activity/Vol] 14 U/L Normal 0-41 [facility] Comment on above: Performed By: #### C BCA, CMP ####[facility] ([id number])[address], [address], [place] [address] Bilirubin [Mass/Vol] 0.4 mg/dL Normal 0.3-1.2 [facility] Comment on above: Performed By: #### C BCA, CMP ####[facility] ([id number])[address], [address], [place] [address] Calcium [Mass/Vol] 8.7 mg/dL Normal 8.5-10.5 [facility] Comment on above: Performed By: #### C BCA, CMP ####[facility] ([id number])[address], [address], [place] [address] Chloride [Moles/Vol] 108 mmol/L Normal 98-109 [facility] Comment on above: Performed By: #### C BCA, CMP ####[facility] ([id number])[address], [place] [address] CO2 [Moles/Vol] 23 mmol/L Normal 22-32 [facility] Comment on above: Performed By: #### C BCA, CMP ####[facility] ([id number])[address] [address] [address] Creatinine [Mass/Vol] 1.75 mg/dL High 0.40-1.00 [facility] Comment on above: Result Comment: METH OD TRACEABLE TO IDMS STANDARD Performed By: #### C BCA, CMP ####[facility] ([id number])[address] [address] GFR/1.73 sq M.predicted among non-blacks MDRD (S/P/Bld) [Vol rate/Area] 31 mL/min/{1.73_m2} Low >59 [facility] Comment on above: Result Comment: Repo rted eGFR is based on theCKD-EPI 2020 equation that doesnot use a race coefficient. Performed By: #### C BCA, CMP ####[facility] ([id number])[address] [address] Glucose [Mass/Vol] 75 mg/dL Normal 65-99 [facility] Comment on above: Performed By: #### C BCA, CMP ####[facility] ([id number])[address] [address] Potassium [Moles/Vol] 3.8 mmol/L Normal 3.5-5.0 [facility] Comment on above: Performed By: #### C BCA, CMP ####[facility] ([id number])[address] [address] Protein [Mass/Vol] 6.0 g/dL Normal 6.0-8.0 [facility] Comment on above: Performed By: #### C BCA, CMP ####[facility] ([id number])[address], [address] [place] [address] Sodium [Moles/Vol] 142 mmol/L Normal 134-146 [facility] Comment on above: Performed By: #### C BCA, CMP ####[facility] ([id number])[address], [address] [place] [address] Urea nitrogen [Mass/Vol] 31 mg/dL High 5-27 [facility] Comment on above: Performed By: #### C BCA, CMP ####[facility] ([id number])[address], [address], [place] [address] PORTABLE PROTIMEon PORTABLE INR 1.6 High 0.8-1.2 [facility] Comment on above: Performed By: #### I PRO ####[facility] ([id number])[address] [facility] [address] PROTIME AND INRon 11-17-2024 INR Coag (PPP) [Relative time] 2.0 {INR} High 0.8-1.1 [facility] Comment on above: Performed By: #### P INR ####[facility] ([id number])[address], [address] [place] [address] PT Coag (PPP) [Time] 22.2 s High 9.8-13.2 [facility] Comment on above: Performed By: #### P INR ####[facility] ([id number])[address], [address] [place] [address] BASIC METABOLIC PANLon 11-16 Anion gap [Moles/Vol] 11 mmol/L Normal 5-15 [facility] Comment on above: Performed By: #### C BCA, PINR, 66145-2, BMP ####[facility] ([id number])[address] [place] [address] Calcium [Mass/Vol] 9.0 mg/dL Normal 8.5-10.5 [facility] Comment on above: Performed By: #### C TALIA PINR, 71274-4, BMP ####[facility] ([id number])[address], [address] [place] [address] Chloride [Moles/Vol] 105 mmol/L Normal 98-109 [facility] Comment on above: Performed By: #### C TALIA PINFlorentino, 95964-0, BMP ####[facility] ([id number])[address] [address] [address] CO2 [Moles/Vol] 24 mmol/L Normal 22-32 [facility] Comment on above: Performed By: #### C TALIA PINR, 88086-5, BMP ####[facility] ([id number])[address] [address] [place] [address] Creatinine [Mass/Vol] 1.79 mg/dL High 0.40-1.00 [facility] Comment on above: Result Comment: METH OD TRACEABLE TO IDMS STANDARD Performed By: #### C NICOLE MELGAR, 88249-0, BMP ####[facility] ([id number])[address] [address] GFR/1.73 sq M.predicted among non-blacks MDRD (S/P/Bld) [Vol rate/Area] 30 mL/min/{1.73_m2} Low >59 [facility] Comment on above: Result Comment: Repo rted eGFR is based on theCKD-EPI 2020 equation that doesnot use a race coefficient. Performed By: #### C TALIA PINR, 14236-6, BMP ####[facility] ([id number])[address] [address] [place] [address] Glucose [Mass/Vol] 87 mg/dL Normal 65-99 [facility] Comment on above: Performed By: #### C TALIA PINR, 12583-6, BMP ####[facility] ([id number])[address], [address], [place] [address] Potassium [Moles/Vol] 3.6 mmol/L Normal 3.5-5.0 [facility] Comment on above: Performed By: #### C TALIA, PINR, 40629-8, BMP ####[facility] ([id number])[address], [address] [address] Sodium [Moles/Vol] 140 mmol/L Normal 134-146 [facility] Comment on above: Performed By: #### C TALIA PINR, 58380-5, BMP ####[facility] ([id number])[address], [address] [address] Urea nitrogen [Mass/Vol] 29 mg/dL High 5-27 [facility] Comment on above: Performed By: #### C TALIA, PINR, 96717-6, BMP ####[facility] ([id number])[address], [address] [address] CBC AND AUTO DIFFon 11-16-19 25 ABSOLUTE BASOPHIL 0.1 X10E9/L Normal 0.0-0.2 [facility] Comment on above: Performed By: #### C TALIA, PINR, 61674-1, BMP ####[facility] ([id number])[address], [address] [address] ABSOLUTE NEUTROPHIL 6.4 X10E9/L Normal 1.5-6.6 [facility] Comment on above: Performed By: #### C TALIA, PINR, 80263-6, BMP ####[facility] ([id number])[address], [address] [address] Basophils/100 WBC (Bld) 1.2 % Normal [facility] Comment on above: Performed By: #### C TALIA, PINR, 21332-0, BMP ####[facility] ([id number])[address] [address], [place] [address] Eosinophils (Bld) [#/Vol] 0.1 10*3/uL Normal 0.0-0.4 [facility] Comment on above: Performed By: #### C TALIA, PINR, 50739-0, BMP ####[facility] ([id number])[address], [address], [place] [address] Eosinophils/100 WBC (Bld) 1.7 % Normal [facility] Comment on above: Performed By: #### C TALIA PINR, 46374-3, BMP ####[facility] ([id number])[address] [address] [address] Erythrocyte distribution width (RBC) [Ratio] 14.8 % Normal 11.5-15.0 [facility] Comment on above: Performed By: #### C TALIA, PINR, 98884-1, BMP ####[facility] ([id number])[address] [address], [place] [address] Hematocrit (Bld) [Volume fraction] 38.5 % Normal 35-47 [facility] Comment on above: Performed By: #### C TALIA, PINR, 61701-7, BMP ####[facility] ([id number])[address] [address], [place] [address] Hemoglobin (Bld) [Mass/Vol] 13.2 g/dL Normal 11.7-15.5 [facility] Comment on above: Performed By: #### C TALIA, PINR, 02139-0, BMP ####[facility] ([id number])[address] [address], [place] [address] Lymphocytes (Bld) [#/Vol] 1.0 10*3/uL Normal 1.0-3.5 [facility] Comment on above: Performed By: #### C TALIA, PINR, 86786-8, BMP ####[facility] ([id number])[address], [address], [place] [address] Lymphocytes/100 WBC (Bld) 11.8 % Normal [facility] Comment on above: Performed By: #### C BCA, PINR, 84771-7, BMP ####[facility] ([id number])[address] [place] [address] MCH (RBC) [Entitic mass] 32.4 pg Normal 27-34 [facility] Comment on above: Performed By: #### C TALIA, PINR, 93808-8, BMP ####[facility] ([id number])[address], [address], [place] [address] MCHC (RBC) [Mass/Vol] 34.2 g/dL Normal 32-36 [facility] Comment on above: Performed By: #### C BCA, PINR, 76194-1, BMP ####[facility] ([id number])[address], [place] [address] MCV (RBC) [Entitic vol] 95 fL Normal 80-100 [facility] Comment on above: Performed By: #### C BCA, PINR, 20160-0, BMP ####[facility] ([id number])[address], [address], [place] [address] Monocytes (Bld) [#/Vol] 0.5 10*3/uL Normal 0-0.9 [facility] Comment on above: Performed By: #### C BCA, PINR, 67498-5, BMP ####[facility] ([id number])[address], [address], [place] [address] Monocytes/100 WBC (Bld) 6.3 % Normal [facility] Comment on above: Performed By: #### C BCA, PINR, 34657-2, BMP ####[facility] ([id number])[address] [address] [place] [address] Neutrophils/100 WBC (Bld) 79.0 % Normal [facility] Comment on above: Performed By: #### Sara MELGAR, PINR, 76218-2, BMP ####[facility] ([id number])[address] [address] [place] [address] Platelet mean volume (Bld) [Entitic vol] 7.6 fL Normal 7-12 [facility] Comment on above: Performed By: #### C TALIA PINR, 21272-3, BMP ####[facility] ([id number])[address] [address] Platelets (Bld) [#/Vol] 219 10*3/uL Normal 150-450 [facility] Comment on above: Performed By: #### Sara MELGAR PINR, 70188-1, BMP ####[facility] ([id number])[address] [address] RBC COUNT 4.06 X10E12/L Normal 3.80-5.20 [facility] Comment on above: Performed By: #### Sara MELGAR, PINR, 86459-2, BMP ####[facility] ([id number])[address] [address] WBC (Bld) [#/Vol] 8.1 10*3/uL Normal 4.0-11.0 [facility] Comment on above: Performed By: #### Sara MELGAR, PINR, 26018-1, BMP ####[facility] ([id number])[address], [address] [place] [address] KNEE LT WO CONTon 025 CT KNEE LT WO CONT Normal [facility] PROTIME AND INRon 11-16-2024 INR Coag (PPP) [Relative time] 2.3 {INR} High 0.8-1.1 [facility] Comment on above: Performed By: #### C BCA, PINR, 17403-1, BMP ####[facility] ([id number])[address], [address] [place] [address] PT Coag (PPP) [Time] 25.8 s High 9.8-13.2 [facility] Comment on above: Performed By: #### C BCA, PINR, 03871-3, BMP ####[facility] ([id number])[address], [address] [place] [address] aPTT Coag (PPP) [Time]on aPTT Coag (Bld) [Time] 42 s High 26-37 [facility] Comment on above: Performed By: #### C BCA, PINR, 11457-9, BMP ####[facility] ([id number])[address], [address] [place] [address] XR FEMUR LT 2+ VIEWSon 11-15 XR FEMUR LT 2+ VIEWS XR FEMUR LT 2+ VIEWS XR FEMUR LT 2+ VIEWS Clinical history:fall acute leg pain Comparison: None. Findings: Degenerative changes of the left hip. There is postoperative changes of the distal femur. There is undergoing healing. No new or acute process. Osteopenia. If the patient is unable to bear weight or if there is concern for nondisplaced hip fracture, consider correlation with MRI. Impression: Postoperative and degenerative changes without definitive new or acute process. Finalized by Nate Hernandez MD on 11/15/2024 6:34 PM Normal [facility] Protime & INRon 11-14-2024 INR Coag (PPP) [Relative time] 1.9 {INR} Abnormal 0.9 - 1.1 [facility] Interpretation and review of laboratory results Abnormal [facility] Protime & INRon 11-10-2024 INR Coag (PPP) [Relative time] 1.3 {INR} Abnormal 0.9 - 1.1 [facility] Interpretation and review of laboratory results Abnormal [facility]ara [facility] Protime & INRon 11-07-2024 INR Coag (PPP) [Relative time] 1.2 {INR} Abnormal 0.9 - 1.1 [facility] Interpretation and review of laboratory results Abnormal [facility] PROTIME AND INRon 10-14-2024 INR Coag (PPP) [Relative time] 1.9 {INR} High 0.8-1.1 [facility] Comment on above: Performed By: #### C BCA, 9, 91331-8, FEPR, 2276-4, 2284- 8, 32662-2, LIVR, 2731-8, 08514-4 #### [facility] ([id number]) [address] [place] [address], [address] [place] [address] #### VITASP, 2998-3 #### [facility] ([id number]) [address] [place] [address] PT Coag (PPP) [Time] 21.8 s High 9.8-13.2 [facility] Comment on above: Result Comment: NEW REFERENCE RANGE Performed By: #### C BCA, 2132-05, 68557-6, FEPR, 2276-4, 2284-8, 11327-6, LIVR, 2731-8, 44952-7 #### [facility] ([id number]) [address] [place] [address], [address] [place] [address] #### VITASP, 2998-3 #### [facility] ([id number]) [address] [place] [address] PROTIME AND INRon 09-30-2024 INR Coag (PPP) [Relative time] 3.8 {INR} High 0.8-1.1 [facility] Comment on above: Performed By: #### C BCA, 9, 91164-4, FEPR, 2276-4, 2284- 8, 21378-0, LIVR, 2731-8, 12643-2 #### [facility] ([id number]) [address], [address] [place] [address] #### VITASP, 2998-3 #### [facility] ([id number]) [address] [place] [address] PT Coag (PPP) [Time] 42.7 s High 9.8-13.2 [facility] Comment on above: Result Comment: NEW REFERENCE RANGE Performed By: #### C BCA, 2132-9, 81736-6, FEPR, 2276-4, 2284-8, 24810-6, LIVR, 2731-8, 27225-9 #### [facility] ([id number]) [address], [address] [place] [address] #### VITASP, 2998-3 #### [facility] ([id number]) [address] [place] [address] XR FEMUR LT 2+ VIEWSon 09-02 XR FEMUR LT 2+ VIEWS Normal [facility] XR FEMUR LT 2+ VIEWSon 07-21 XR FEMUR LT 2+ VIEWS Normal [facility] BASIC METABOLIC PANLon 06-10 Anion gap [Moles/Vol] 8 mmol/L Normal 5-15 [facility] Comment on above: Performed By: #### C JACINDA, PINR, BMP ####[facility] ([id number])[address] [address] Calcium [Mass/Vol] 8.7 mg/dL Normal 8.5-10.5 [facility] Comment on above: Performed By: #### C BC, PINR, BMP ####[facility] ([id number])[address] [address] Chloride [Moles/Vol] 106 mmol/L Normal 98-109 [facility] Comment on above: Performed By: #### C NICOLE MONACO BMP ####[facility] ([id number])[address], [place] [address] CO2 [Moles/Vol] 27 mmol/L Normal 22-32 [facility] Comment on above: Performed By: #### C NICOLE MONACO BMP ####[facility] ([id number])[address], [place] [address] Creatinine [Mass/Vol] 1.58 mg/dL High 0.40-1.00 [facility] Comment on above: Result Comment: METH OD TRACEABLE TO IDMS STANDARD Performed By: #### C NICOLE MONACO BMP ####[facility] ([id number])[address] [address] [address] GFR/1.73 sq M.predicted among non-blacks MDRD (S/P/Bld) [Vol rate/Area] 35 mL/min/{1.73_m2} Low >59 [facility] Comment on above: Result Comment: Repo rted eGFR is based on theCKD-EPI 2020 equation that doesnot use a race coefficient. Performed By: #### C NICOLE MONACO BMP ####[facility] ([id number])[address] [address], [place] [address] Glucose [Mass/Vol] 111 mg/dL High 65-99 [facility] Comment on above: Performed By: #### C NICOLE MONACO BMP ####[facility] ([id number])[address] [address], [place] [address] Potassium [Moles/Vol] 3.7 mmol/L Normal 3.5-5.0 [facility] Comment on above: Performed By: #### C NICOLE MONACO BMP ####[facility] ([id number])[address] [address], [place] [address] Sodium [Moles/Vol] 141 mmol/L Normal 134-146 [facility] Comment on above: Performed By: #### C NICOLE MONACO BMP ####[facility] ([id number])[address], [place] [address] Urea nitrogen [Mass/Vol] 34 mg/dL High 5-27 [facility] Comment on above: Performed By: #### NICOLE LAST BMP ####[facility] ([id number])[address] [address] COMPLETE BLOOD COUNTon 06-10 Erythrocyte distribution width (RBC) [Ratio] 14.6 % Normal 11.5-15.0 [facility] Comment on above: Performed By: #### NICOLE LAST BMP ####[facility] ([id number])[address] [address] Hematocrit (Bld) [Volume fraction] 25.1 % Low 35-47 [facility] Comment on above: Performed By: #### NICOLE LAST BMP ####[facility] ([id number])[address] [address] [place] [address], [place] [address] Hemoglobin (Bld) [Mass/Vol] 8.2 g/dL Low 11.7-15.5 [facility] Comment on above: Performed By: #### NICOLE LAST BMP ####[facility] ([id number])[address], [place] [address] MCH (RBC) [Entitic mass] 31.6 pg Normal 27-34 [facility] Comment on above: Performed By: #### NICOLE LAST BMP ####[facility] ([id number])[address], [place] [address] MCHC (RBC) [Mass/Vol] 32.6 g/dL Normal 32-36 [facility] Comment on above: Performed By: #### C NICOLE MONACO, BMP ####[facility] ([id number])[address], [place] [address] MCV (RBC) [Entitic vol] 97 fL Normal 80-100 [facility] Comment on above: Performed By: #### Sara MONACO PINFolrentino, BMP ####[facility] ([id number])[address], [place] [address] Platelet mean volume (Bld) [Entitic vol] 7.1 fL Normal 7-12 [facility] Comment on above: Performed By: #### NICOLE LAST, BMP ####[facility] ([id number])[address], [place] [address] Platelets (Bld) [#/Vol] 227 10*3/uL Normal 150-450 [facility] Comment on above: Performed By: #### NICOLE LAST, BMP ####[facility] ([id number])[address], [place] [address] RBC COUNT 2.60 X10E12/L Low 3.80-5.20 [facility] Comment on above: Performed By: #### NICOLE LAST, BMP ####[facility] ([id number])[address] [address] [place] [address] WBC (Bld) [#/Vol] 7.9 10*3/uL Normal 4.0-11.0 [facility] Comment on above: Performed By: #### NICOLE LAST, BMP ####[facility] ([id number])[address] [place] [address] PROTIME AND INRon 06-10-2024 INR Coag (PPP) [Relative time] 2.6 {INR} High 0.8-1.1 [facility] Comment on above: Performed By: #### C BC, PINR, BMP ####[facility] ([id number])[address] [place] [address] PT Coag (PPP) [Time] 29.1 s High 9.8-13.2 [facility] Comment on above: Performed By: #### C JACINDA PINR, BMP ####[facility] ([id number])[address] [place] [address] BASIC METABOLIC PANLon 06-09 Anion gap [Moles/Vol] 8 mmol/L Normal 5-15 [facility] Comment on above: Performed By: #### C NICOLE MONACO, BMP ####[facility] ([id number])[address] [place] [address] Calcium [Mass/Vol] 8.7 mg/dL Normal 8.5-10.5 [facility] Comment on above: Performed By: #### C JACINDA PINR, BMP ####[facility] ([id number])[address] [place] [address] Chloride [Moles/Vol] 106 mmol/L Normal 98-109 [facility] Comment on above: Performed By: #### Sara MONACO PINR, BMP ####[facility] ([id number])[address] [place] [address] CO2 [Moles/Vol] 27 mmol/L Normal 22-32 [facility] Comment on above: Performed By: #### C JACINDA PINR, BMP ####[facility] ([id number])[address] [place] [address] Creatinine [Mass/Vol] 1.40 mg/dL High 0.40-1.00 [facility] Comment on above: Result Comment: METH OD TRACEABLE TO IDMS STANDARD Performed By: #### C JACINDA PINR, BMP ####[facility] ([id number])[address] [address] [address] GFR/1.73 sq M.predicted among non-blacks MDRD (S/P/Bld) [Vol rate/Area] 41 mL/min/{1.73_m2} Low >59 [facility] Comment on above: Result Comment: Repo rted eGFR is based on theCKD-EPI 2020 equation that doesnot use a race coefficient. Performed By: #### C NICOLE MONACO BMP ####[facility] ([id number])[address] [address] [address] Glucose [Mass/Vol] 89 mg/dL Normal 65-99 [facility] Comment on above: Performed By: #### NICOLE LAST BMP ####[facility] ([id number])[address] [address] [address] Potassium [Moles/Vol] 4.3 mmol/L Normal 3.5-5.0 [facility] Comment on above: Performed By: #### NICOLE LAST BMP ####[facility] ([id number])[address] [address] Sodium [Moles/Vol] 141 mmol/L Normal 134-146 [facility] Comment on above: Performed By: #### NICOLE LAST BMP ####[facility] ([id number])[address] [address] Urea nitrogen [Mass/Vol] 31 mg/dL High 5-27 [facility] Comment on above: Performed By: #### NICOLE LAST BMP ####[facility] ([id number])[address] [address] COMPLETE BLOOD COUNTon 06-09 Erythrocyte distribution width (RBC) [Ratio] 14.1 % Normal 11.5-15.0 [facility] Comment on above: Performed By: #### C NICOLE MONACO, BMP ####[facility] ([id number])[address] [place] [address] Hematocrit (Bld) [Volume fraction] 23.7 % Low 35-47 [facility] Comment on above: Performed By: #### C JACINDA PINR, BMP ####[facility] ([id number])[address] [place] [address] Hemoglobin (Bld) [Mass/Vol] 7.7 g/dL Low 11.7-15.5 [facility] Comment on above: Performed By: #### C NICOLE MONACO, BMP ####[facility] ([id number])[address], [place] [address] MCH (RBC) [Entitic mass] 31.3 pg Normal 27-34 [facility] Comment on above: Performed By: #### C NICOLE MONACO, BMP ####[facility] ([id number])[address] [place] [address] MCHC (RBC) [Mass/Vol] 32.6 g/dL Normal 32-36 [facility] Comment on above: Performed By: #### C JACINDA PINR, BMP ####[facility] ([id number])[address] [address], [place] [address] MCV (RBC) [Entitic vol] 96 fL Normal 80-100 [facility] Comment on above: Performed By: #### C JACINDA PINR, BMP ####[facility] ([id number])[address] [place] [address] Platelet mean volume (Bld) [Entitic vol] 7.5 fL Normal 7-12 [facility] Comment on above: Performed By: #### C JACINDA PINR, BMP ####[facility] [facility] ([id number])[address], [address] [place] [address] Platelets (Bld) [#/Vol] 211 10*3/uL Normal 150-450 [facility] Comment on above: Performed By: #### C NICOLE MONACO BMP ####[facility] ([id number])[address], [address], [place] [address] RBC COUNT 2.46 X10E12/L Low 3.80-5.20 [facility] Comment on above: Performed By: #### C NICOLE MONACO, BMP ####[facility] ([id number])[address], [address] [place] [address] WBC (Bld) [#/Vol] 7.9 10*3/uL Normal 4.0-11.0 [facility] Comment on above: Performed By: #### C NICOLE MONACO, BMP ####[facility] ([id number])[address] [address] [place] [address] PROTIME AND INRon 06-09-2024 INR Coag (PPP) [Relative time] 2.5 {INR} High 0.8-1.1 [facility] Comment on above: Performed By: #### Sara MONACO PINR, BMP ####[facility] ([id number])[address] [address] [place] [address], [place] [address] PT Coag (PPP) [Time] 28.5 s High 9.8-13.2 [facility] Comment on above: Performed By: #### C JACINDA PINR, BMP ####[facility] ([id number])[address] [address] [place] [address], [place] [address] BASIC METABOLIC PANLon 06-08 Anion gap [Moles/Vol] 8 mmol/L Normal 5-15 [facility] Comment on above: Performed By: #### MAGALY LAST, PINR ####[facility] ([id number])[address], [address], [place] [address] Calcium [Mass/Vol] 8.3 mg/dL Low 8.5-10.5 [facility] Comment on above: Performed By: #### C MAGALY MONACO, PINR ####[facility] ([id number])[address], [address], [place] [address] Chloride [Moles/Vol] 107 mmol/L Normal 98-109 [facility] Comment on above: Performed By: #### C MAGALY MONACO, PINR ####[facility] ([id number])[address], [address], [place] [address] CO2 [Moles/Vol] 25 mmol/L Normal 22-32 [facility] Comment on above: Performed By: #### C MAGALY MONACO, PINR ####[facility] ([id number])[address], [address], [place] [address] Creatinine [Mass/Vol] 1.35 mg/dL High 0.40-1.00 [facility] Comment on above: Result Comment: METH OD TRACEABLE TO IDMS STANDARD Performed By: #### C MAGALY MONACO, PINR ####[facility] ([id number])[address] [address], [place] [address] GFR/1.73 sq M.predicted among non-blacks MDRD (S/P/Bld) [Vol rate/Area] 43 mL/min/{1.73_m2} Low >59 [facility] Comment on above: Result Comment: Repo rted eGFR is based on theCKD-EPI 2020 equation that doesnot use a race coefficient. Performed By: #### C MAGALY MONACO, PINR ####[facility] ([id number])[address], [address], [place] [address] Glucose [Mass/Vol] 92 mg/dL Normal 65-99 [facility] Comment on above: Performed By: #### C BC, BMP, PINR ####[facility] ([id number])[address], [address] [place] [address] Potassium [Moles/Vol] 3.7 mmol/L Normal 3.5-5.0 [facility] Comment on above: Performed By: #### C BC, BMP, PINR ####[facility] ([id number])[address], [address], [place] [address] Sodium [Moles/Vol] 140 mmol/L Normal 134-146 [facility] Comment on above: Performed By: #### C JACINDA, BMP, PINR ####[facility] ([id number])[address] [address], [place] [address] Urea nitrogen [Mass/Vol] 34 mg/dL High 5-27 [facility] Comment on above: Performed By: #### C JACINDA, MAGALY, PINR ####[facility] ([id number])[address], [place] [address] COMPLETE BLOOD COUNTon 06-08 Erythrocyte distribution width (RBC) [Ratio] 13.9 % Normal 11.5-15.0 [facility] Comment on above: Performed By: #### C JACINDA, BMP, PINR ####[facility] ([id number])[address] [address] [place] [address] Hematocrit (Bld) [Volume fraction] 22.5 % Low 35-47 [facility] Comment on above: Performed By: #### C JACINDA, BMP, PINR ####[facility] ([id number])[address] [address] [place] [address], [place] [address] Hemoglobin (Bld) [Mass/Vol] 7.3 g/dL Low 11.7-15.5 [facility] Comment on above: Performed By: #### C BC, BMP, PINR ####[facility] ([id number])[address], [address] [place] [address] MCH (RBC) [Entitic mass] 31.0 pg Normal 27-34 [facility] Comment on above: Performed By: #### MAGALY LAST, PINR ####[facility] ([id number])[address], [address], [place] [address] MCHC (RBC) [Mass/Vol] 32.5 g/dL Normal 32-36 [facility] Comment on above: Performed By: #### C MAGALY MONACO, PINR ####[facility] ([id number])[address], [address] [place] [address] MCV (RBC) [Entitic vol] 95 fL Normal 80-100 [facility] Comment on above: Performed By: #### MAGALY LAST, PINR ####[facility] ([id number])[address], [address] [place] [address] Platelet mean volume (Bld) [Entitic vol] 7.7 fL Normal 7-12 [facility] Comment on above: Performed By: #### C MAGALY MONACO, PINR ####[facility] ([id number])[address] [address] [place] [address] Platelets (Bld) [#/Vol] 187 10*3/uL Normal 150-450 [facility] Comment on above: Performed By: #### MAGALY LAST, PINR ####[facility] ([id number])[address] [address] [place] [address] RBC COUNT 2.36 X10E12/L Low 3.80-5.20 [facility] Comment on above: Performed By: #### MAGALY LAST, PINR ####[facility] ([id number])[address] [address] [place] [address] WBC (Bld) [#/Vol] 7.2 10*3/uL Normal 4.0-11.0 [facility] Comment on above: Performed By: #### C BC, BMP, PINR ####[facility] ([id number])[address], [address] [place] [address] PROTIME AND INRon 06-08-2024 INR Coag (PPP) [Relative time] 2.2 {INR} High 0.8-1.1 [facility] Comment on above: Performed By: #### C BC, BMP, PINR ####[facility] ([id number])[address], [address] [place] [address] PT Coag (PPP) [Time] 24.4 s High 9.8-13.2 [facility] Comment on above: Performed By: #### C BC, BMP, PINR ####[facility] ([id number])[address], [address], [place] [address] BASIC METABOLIC PANLon 06-07 Anion gap [Moles/Vol] 5 mmol/L Normal 5-15 [facility] Comment on above: Performed By: #### P INR, CBC, BMP ####[facility] ([id number])[address], [address] [place] [address] Calcium [Mass/Vol] 8.7 mg/dL Normal 8.5-10.5 [facility] Comment on above: Performed By: #### P INR, CBC, BMP ####[facility] ([id number])[address], [address] [place] [address] Chloride [Moles/Vol] 108 mmol/L Normal 98-109 [facility] Comment on above: Performed By: #### P INR, CBC, BMP ####[facility] ([id number])[address], [address] [place] [address] CO2 [Moles/Vol] 27 mmol/L Normal 22-32 [facility] Comment on above: Performed By: #### P INR, CBC, BMP ####[facility] ([id number])[address] [address] [place] [address] Creatinine [Mass/Vol] 1.61 mg/dL High 0.40-1.00 [facility] Comment on above: Result Comment: METH OD TRACEABLE TO IDMS STANDARD Performed By: #### P INR, CBC, BMP ####[facility] ([id number])[address] [address] GFR/1.73 sq M.predicted among non-blacks MDRD (S/P/Bld) [Vol rate/Area] 34 mL/min/{1.73_m2} Low >59 [facility] Comment on above: Result Comment: Repo rted eGFR is based on theCKD-EPI 2020 equation that doesnot use a race coefficient. Performed By: #### P INR, CBC, BMP ####[facility] ([id number])[address] [address] [place] [address] Glucose [Mass/Vol] 101 mg/dL High 65-99 [facility] Comment on above: Performed By: #### P INR, CBC, BMP ####[facility] ([id number])[address] [address] [place] [address] Potassium [Moles/Vol] 3.8 mmol/L Normal 3.5-5.0 [facility] Comment on above: Performed By: #### P INR, CBC, BMP ####[facility] ([id number])[address] [address] [place] [address] Sodium [Moles/Vol] 140 mmol/L Normal 134-146 [facility] Comment on above: Performed By: #### P INR, CBC, BMP ####[facility] ([id number])[address] [address] [place] [address] Urea nitrogen [Mass/Vol] 37 mg/dL High 5-27 [facility] Comment on above: Performed By: #### P INR, CBC, BMP ####[facility] ([id number])[address] [address] [place] [address] COMPLETE BLOOD COUNTon 06-07 Erythrocyte distribution width (RBC) [Ratio] 13.8 % Normal 11.5-15.0 [facility] Comment on above: Performed By: #### P INR, CBC, BMP ####[facility] ([id number])[address] [address] [place] [address] Hematocrit (Bld) [Volume fraction] 23.8 % Low 35-47 [facility] Comment on above: Performed By: #### P INR, CBC, BMP ####[facility] ([id number])[address] [address] [place] [address] Hemoglobin (Bld) [Mass/Vol] 7.7 g/dL Low 11.7-15.5 [facility] Comment on above: Performed By: #### P INR, CBC, BMP ####[facility] ([id number])[address] [address] [place] [address] MCH (RBC) [Entitic mass] 31.0 pg Normal 27-34 [facility] Comment on above: Performed By: #### P INR, CBC, BMP ####[facility] ([id number])[address] [address] [place] [address] MCHC (RBC) [Mass/Vol] 32.3 g/dL Normal 32-36 [facility] Comment on above: Performed By: #### P INR, CBC, BMP ####[facility] ([id number])[address] [address] [place] [address] MCV (RBC) [Entitic vol] 96 fL Normal 80-100 [facility] Comment on above: Performed By: #### P INR, CBC, BMP ####[facility] ([id number])[address], [place] [address] Platelet mean volume (Bld) [Entitic vol] 7.7 fL Normal 7-12 [facility] Comment on above: Performed By: #### P INR, CBC, BMP ####[facility] ([id number])[address], [address], [place] [address] Platelets (Bld) [#/Vol] 186 10*3/uL Normal 150-450 [facility] Comment on above: Performed By: #### P INR, CBC, BMP ####[facility] ([id number])[address], [place] [address] RBC COUNT 2.48 X10E12/L Low 3.80-5.20 [facility] Comment on above: Performed By: #### P INR, CBC, BMP ####[facility] ([id number])[address] [address] [place] [address] WBC (Bld) [#/Vol] 7.4 10*3/uL Normal 4.0-11.0 [facility] Comment on above: Performed By: #### P INR, CBC, BMP ####[facility] ([id number])[address] [address] [place] [address] PROTIME AND INRon 06-07-2024 INR Coag (PPP) [Relative time] 1.8 {INR} High 0.8-1.1 [facility] Comment on above: Performed By: #### P INR, CBC, BMP ####[facility] ([id number])[address], [address] [place] [address], [place] [address] PT Coag (PPP) [Time] 21.0 s High 9.8-13.2 [facility] Comment on above: Performed By: #### P INR, CBC, BMP ####[facility] ([id number])[address], [address], [place] [address] BASIC METABOLIC PANLon 06-06 Anion gap [Moles/Vol] 7 mmol/L Normal 5-15 [facility] Comment on above: Performed By: #### P INR, CBC, BMP ####[facility] ([id number])[address], [address] [place] [address], [place] [address] Calcium [Mass/Vol] 8.5 mg/dL Normal 8.5-10.5 [facility] Comment on above: Performed By: #### P INR, CBC, BMP ####[facility] ([id number])[address], [address] [place] [address] Chloride [Moles/Vol] 110 mmol/L High 98-109 [facility] Comment on above: Performed By: #### P INR, CBC, BMP ####[facility] ([id number])[address] [address] [place] [address] CO2 [Moles/Vol] 24 mmol/L Normal 22-32 [facility] Comment on above: Performed By: #### P INR, CBC, BMP ####[facility] ([id number])[address] [address] [place] [address] Creatinine [Mass/Vol] 1.96 mg/dL High 0.40-1.00 [facility] Comment on above: Result Comment: METH OD TRACEABLE TO IDMS STANDARD Performed By: #### P INR, CBC, BMP ####[facility] ([id number])[address] [address] [place] [address] GFR/1.73 sq M.predicted among non-blacks MDRD (S/P/Bld) [Vol rate/Area] 27 mL/min/{1.73_m2} Low >59 [facility] Comment on above: Result Comment: Repo rted eGFR is based on theCKD-EPI 2020 equation that doesnot use a race coefficient. Performed By: #### P INR, CBC, BMP ####[facility] ([id number])[address] [address] [place] [address] Glucose [Mass/Vol] 111 mg/dL High 65-99 [facility] Comment on above: Performed By: #### P INR, CBC, BMP ####[facility] ([id number])[address] [address] [place] [address] Potassium [Moles/Vol] 3.9 mmol/L Normal 3.5-5.0 [facility] Comment on above: Performed By: #### P INR, CBC, BMP ####[facility] ([id number])[address] [address] [place] [address] Sodium [Moles/Vol] 141 mmol/L Normal 134-146 [facility] Comment on above: Performed By: #### P INR, CBC, BMP ####[facility] ([id number])[address] [address] [place] [address] Urea nitrogen [Mass/Vol] 40 mg/dL High 5-27 [facility] Comment on above: Performed By: #### P INR, CBC, BMP ####[facility] ([id number])[address] [address] COMPLETE BLOOD COUNTon 06-06 Erythrocyte distribution width (RBC) [Ratio] 13.7 % Normal 11.5-15.0 [facility] Comment on above: Performed By: #### P INR, CBC, BMP ####[facility] ([id number])[address] [address] Hematocrit (Bld) [Volume fraction] 21.7 % Low 35-47 [facility] Comment on above: Performed By: #### P INR, CBC, BMP ####[facility] ([id number])[address] [place] [address] Hemoglobin (Bld) [Mass/Vol] 7.1 g/dL Low 11.7-15.5 [facility] Comment on above: Performed By: #### P INR, CBC, BMP ####[facility] ([id number])[address], [place] [address] MCH (RBC) [Entitic mass] 31.3 pg Normal 27-34 [facility] Comment on above: Performed By: #### P INR, CBC, BMP ####[facility] ([id number])[address], [address] [place] [address] MCHC (RBC) [Mass/Vol] 32.6 g/dL Normal 32-36 [facility] Comment on above: Performed By: #### P INR, CBC, BMP ####[facility] ([id number])[address] [address] [place] [address] MCV (RBC) [Entitic vol] 96 fL Normal 80-100 [facility] Comment on above: Performed By: #### P INR, CBC, BMP ####[facility] ([id number])[address] [place] [address] Platelet mean volume (Bld) [Entitic vol] 8.1 fL Normal 7-12 [facility] Comment on above: Performed By: #### P INR, CBC, BMP ####[facility] ([id number])[address] [address] [place] [address] Platelets (Bld) [#/Vol] 151 10*3/uL Normal 150-450 [facility] Comment on above: Performed By: #### P INR, CBC, BMP ####[facility] ([id number])[address] [address] [place] [address], [place] [address] RBC COUNT 2.26 X10E12/L Low 3.80-5.20 [facility] Comment on above: Performed By: #### P INR, CBC, BMP ####[facility] ([id number])[address] [address] [place] [address] WBC (Bld) [#/Vol] 7.5 10*3/uL Normal 4.0-11.0 [facility] Comment on above: Performed By: #### P INR, CBC, BMP ####[facility] ([id number])[address] [address] PROTIME AND INRon 06-06-2024 INR Coag (PPP) [Relative time] 1.6 {INR} High 0.8-1.1 [facility] Comment on above: Performed By: #### P INR, CBC, BMP ####[facility] ([id number])[address] [address] PT Coag (PPP) [Time] 17.8 s High 9.8-13.2 [facility] Comment on above: Performed By: #### P INR, CBC, BMP ####[facility] ([id number])[address] [address] [place] [address] BASIC METABOLIC PANLon 06-05 Anion gap [Moles/Vol] 8 mmol/L Normal 5-15 [facility] Comment on above: Performed By: #### C BCA, PINR, BMP ####[facility] ([id number])[address] [address] [place] [address] Calcium [Mass/Vol] 8.4 mg/dL Low 8.5-10.5 [facility] Comment on above: Performed By: #### C BCA, PINR, BMP ####[facility] ([id number])[address] [address] Chloride [Moles/Vol] 109 mmol/L Normal 98-109 [facility] Comment on above: Performed By: #### C NICOLE MELGAR BMP ####[facility] ([id number])[address], [place] [address] CO2 [Moles/Vol] 23 mmol/L Normal 22-32 [facility] Comment on above: Performed By: #### C NICOLE MELGAR, BMP ####[facility] ([id number])[address], [place] [address] Creatinine [Mass/Vol] 2.06 mg/dL High 0.40-1.00 [facility] Comment on above: Result Comment: METH OD TRACEABLE TO IDMS STANDARD Performed By: #### C NICOLE MELGAR BMP ####[facility] ([id number])[address] [address] [place] [address] GFR/1.73 sq M.predicted among non-blacks MDRD (S/P/Bld) [Vol rate/Area] 26 mL/min/{1.73_m2} Low >59 [facility] Comment on above: Result Comment: Repo rted eGFR is based on theCKD-EPI 2020 equation that doesnot use a race coefficient. Performed By: #### C NICOLE MELGAR BMP ####[facility] ([id number])[address] [address] [address] Glucose [Mass/Vol] 112 mg/dL High 65-99 [facility] Comment on above: Performed By: #### C NICOLE MELGAR BMP ####[facility] ([id number])[address] [address], [place] [address] Potassium [Moles/Vol] 4.1 mmol/L Normal 3.5-5.0 [facility] Comment on above: Performed By: #### C TALIA PINR, BMP ####[facility] ([id number])[address] [address], [place] [address] Sodium [Moles/Vol] 140 mmol/L Normal 134-146 [facility] Comment on above: Performed By: #### C TALIA PINR, BMP ####[facility] ([id number])[address], [address] [place] [address] Urea nitrogen [Mass/Vol] 45 mg/dL High 5-27 [facility] Comment on above: Performed By: #### C TALIA PINR, BMP ####[facility] ([id number])[address], [address] [place] [address] CBC AND AUTO DIFFon 06-05-20 24 ABSOLUTE BASOPHIL 0.0 X10E9/L Normal 0.0-0.2 [facility] Comment on above: Performed By: #### C TALIA PINR, BMP ####[facility] ([id number])[address], [address] [place] [address] ABSOLUTE NEUTROPHIL 6.8 X10E9/L High 1.5-6.6 [facility] Comment on above: Performed By: #### C TALIA PINR, BMP ####[facility] ([id number])[address] [address] [place] [address] 26542 Basophils/100 WBC (Bld) 0.3 % Normal [facility] Comment on above: Performed By: #### C TALIA PINR, BMP ####[facility] ([id number])[address], [address] [place] [address] Eosinophils (Bld) [#/Vol] 0.1 10*3/uL Normal 0.0-0.4 [facility] Comment on above: Performed By: #### C TALIA PINR, BMP ####[facility] ([id number])[address] [address] [place] [address] Eosinophils/100 WBC (Bld) 0.6 % Normal [facility] Comment on above: Performed By: #### C TALIA PINR, BMP ####[facility] ([id number])[address] [address] [place] [address]54 Erythrocyte distribution width (RBC) [Ratio] 13.2 % Normal 11.5-15.0 [facility] Comment on above: Performed By: #### C TALIA, PINR, BMP ####[facility] ([id number])[address] [address] [place] [address] Hematocrit (Bld) [Volume fraction] 23.5 % Low 35-47 [facility] Comment on above: Performed By: #### C TALIA PINR, BMP ####[facility] ([id number])[address] [address] Hemoglobin (Bld) [Mass/Vol] 7.6 g/dL Low 11.7-15.5 [facility] Comment on above: Performed By: #### C TALIA PINR, BMP ####[facility] ([id number])[address] [address] Lymphocytes (Bld) [#/Vol] 0.8 10*3/uL Low 1.0-3.5 [facility] Comment on above: Performed By: #### C TALIA PINR, BMP ####[facility] ([id number])[address] [address] Lymphocytes/100 WBC (Bld) 9.5 % Normal [facility] Comment on above: Performed By: #### C TALIA, PINR, BMP ####[facility] ([id number])[address] [address] MCH (RBC) [Entitic mass] 30.9 pg Normal 27-34 [facility] Comment on above: Performed By: #### C TALIA, PINR, BMP ####[facility] ([id number])[address], [place] [address] MCHC (RBC) [Mass/Vol] 32.4 g/dL Normal 32-36 [facility] Comment on above: Performed By: #### NICOLE Ruiz BCA, BMP ####[facility] ([id number])[address], [place] [address] MCV (RBC) [Entitic vol] 96 fL Normal 80-100 [facility] Comment on above: Performed By: #### C FIORELLA MELGARR, BMP ####[facility] ([id number])[address], [place] [address] Monocytes (Bld) [#/Vol] 1.0 10*3/uL High 0-0.9 [facility] Comment on above: Performed By: #### NICOLE Ruiz BCA, BMP ####[facility] ([id number])[address], [place] [address] Monocytes/100 WBC (Bld) 11.6 % Normal [facility] Comment on above: Performed By: #### NICOLE Ruiz BCA, BMP ####[facility] ([id number])[address], [place] [address] Neutrophils/100 WBC (Bld) 78.0 % Normal [facility] Comment on above: Performed By: #### NICOLE Ruiz BCA, BMP ####[facility] ([id number])[address], [place] [address] Platelet mean volume (Bld) [Entitic vol] 7.7 fL Normal 7-12 [facility] Comment on above: Performed By: #### NICOLE Ruiz BCA, BMP ####[facility] ([id number])[address], [place] [address] Platelets (Bld) [#/Vol] 135 10*3/uL Low 150-450 [facility] Comment on above: Performed By: #### C NICOLE MELGAR, BMP ####[facility] ([id number])[address] [place] [address] RBC COUNT 2.45 X10E12/L Low 3.80-5.20 [facility] Comment on above: Performed By: #### C FIORELLA MELGARR, BMP ####[facility] ([id number])[address] [place] [address] WBC (Bld) [#/Vol] 8.8 10*3/uL Normal 4.0-11.0 [facility] Comment on above: Performed By: #### C NICOLE MELGAR, BMP ####[facility] ([id number])[address], [address] [place] [address] HGB AND HCTon 06-05-2024 Hematocrit (Bld) [Volume fraction] 23.3 % Low 35-47 [facility] Comment on above: Performed By: #### H H ####[facility] ([id number])[address], [address] [place] [address] Hemoglobin (Bld) [Mass/Vol] 7.5 g/dL Low 11.7-15.5 [facility] Comment on above: Performed By: #### H H ####[facility] ([id number])[address] [address] [place] [address] Hematocrit (Bld) [Volume fraction] 22.2 % Low 35-47 [facility] Comment on above: Performed By: #### H H ####[facility] ([id number])[address] [address] [place] [address] Hemoglobin (Bld) [Mass/Vol] 7.3 g/dL Low 11.7-15.5 [facility] Comment on above: Performed By: #### H H ####[facility] ([id number])[address], [address] [place] [address] Hematocrit (Bld) [Volume fraction] 21.8 % Low 35-47 [facility] Comment on above: Performed By: #### H H ####[facility] ([id number])[address], [address] [place] [address] Hemoglobin (Bld) [Mass/Vol] 7.1 g/dL Low 11.7-15.5 [facility] Comment on above: Performed By: #### H H ####[facility] ([id number])[address], [address] [place] [address] PROTIME AND INRon 06-05-2024 INR Coag (PPP) [Relative time] 1.4 {INR} High 0.8-1.1 [facility] Comment on above: Performed By: #### C NICOLE MELGAR, BMP ####[facility] ([id number])[address], [address] [place] [address] PT Coag (PPP) [Time] 16.6 s High 9.8-13.2 [facility] Comment on above: Performed By: #### C TALIA PINR, BMP ####[facility] ([id number])[address] [address] [address] BASIC METABOLIC PANLon 06-04 Anion gap [Moles/Vol] 8 mmol/L Normal 5-15 [facility] Comment on above: Performed By: #### C TALIA, BMP ####[facility] ([id number])[address], [address] [place] [address] Calcium [Mass/Vol] 8.1 mg/dL Low 8.5-10.5 [facility] Comment on above: Performed By: #### C BCA, BMP ####[facility] ([id number])[address], [address] [address] Chloride [Moles/Vol] 109 mmol/L Normal 98-109 [facility] Comment on above: Performed By: #### C BCA, BMP ####[facility] ([id number])[address] [address] CO2 [Moles/Vol] 22 mmol/L Normal 22-32 [facility] Comment on above: Performed By: #### C BCA, BMP ####[facility] ([id number])[address] [address] Creatinine [Mass/Vol] 2.04 mg/dL High 0.40-1.00 [facility] Comment on above: Result Comment: METH OD TRACEABLE TO IDMS STANDARD Performed By: #### C BCA, BMP ####[facility] ([id number])[address] [address] GFR/1.73 sq M.predicted among non-blacks MDRD (S/P/Bld) [Vol rate/Area] 26 mL/min/{1.73_m2} Low >59 [facility] Comment on above: Result Comment: Repo rted eGFR is based on theCKD-EPI 2020 equation that doesnot use a race coefficient. Performed By: #### C BCA, BMP ####[facility] ([id number])[address] [address] Glucose [Mass/Vol] 185 mg/dL High 65-99 [facility] Comment on above: Performed By: #### C BCA, BMP ####[facility] ([id number])[address] [address] Potassium [Moles/Vol] 4.2 mmol/L Normal 3.5-5.0 [facility] Comment on above: Performed By: #### C BCA, BMP ####[facility] ([id number])[address] [address] Sodium [Moles/Vol] 139 mmol/L Normal 134-146 [facility] Comment on above: Performed By: #### C TALIA, BMP ####[facility] ([id number])[address], [address] [address] Urea nitrogen [Mass/Vol] 41 mg/dL High 5-27 [facility] Comment on above: Performed By: #### C TALIA, BMP ####[facility] ([id number])[address], [address] [place] [address] CBC AND AUTO DIFFon 06-04-20 24 ABSOLUTE BASOPHIL 0.0 X10E9/L Normal 0.0-0.2 [facility] Comment on above: Performed By: #### C TALIA, BMP ####[facility] ([id number])[address], [address] [place] [address] ABSOLUTE NEUTROPHIL 9.2 X10E9/L High 1.5-6.6 [facility] Comment on above: Performed By: #### C TALIA, BMP ####[facility] ([id number])[address] [address] [place] [address] Basophils/100 WBC (Bld) 0.1 % Normal [facility] Comment on above: Performed By: #### C TALIA, BMP ####[facility] ([id number])[address] [address] [place] [address] Eosinophils (Bld) [#/Vol] 0.0 10*3/uL Normal 0.0-0.4 [facility] Comment on above: Performed By: #### C TALIA, BMP ####[facility] ([id number])[address] [address] [place] [address] Eosinophils/100 WBC (Bld) 0.0 % Normal [facility] Comment on above: Performed By: #### C TALIA, BMP ####[facility] ([id number])[address], [address] [place] [address] Erythrocyte distribution width (RBC) [Ratio] 13.9 % Normal 11.5-15.0 [facility] Comment on above: Performed By: #### C TALIA, BMP ####[facility] ([id number])[address], [address] [place] [address] Hematocrit (Bld) [Volume fraction] 27.1 % Low 35-47 [facility] Comment on above: Performed By: #### C TALIA, BMP ####[facility] ([id number])[address], [address], [place] [address] Hemoglobin (Bld) [Mass/Vol] 9.0 g/dL Low 11.7-15.5 [facility] Comment on above: Performed By: #### Sara MELGAR, BMP ####[facility] ([id number])[address], [address], [place] [address] Lymphocytes (Bld) [#/Vol] 0.2 10*3/uL Low 1.0-3.5 [facility] Comment on above: Performed By: #### C TALIA, BMP ####[facility] ([id number])[address], [address], [place] [address] Lymphocytes/100 WBC (Bld) 2.0 % Normal [facility] Comment on above: Performed By: #### C TALIA, BMP ####[facility] ([id number])[address], [address] [place] [address] MCH (RBC) [Entitic mass] 31.8 pg Normal 27-34 [facility] Comment on above: Performed By: #### Sara MELGAR, BMP ####[facility] ([id number])[address], [address] [place] [address] MCHC (RBC) [Mass/Vol] 33.4 g/dL Normal 32-36 [facility] Comment on above: Performed By: #### C BCA, BMP ####[facility] ([id number])[address], [address], [place] [address] MCV (RBC) [Entitic vol] 95 fL Normal 80-100 [facility] Comment on above: Performed By: #### C BCA, BMP ####[facility] ([id number])[address], [address], [place] [address] Monocytes (Bld) [#/Vol] 0.4 10*3/uL Normal 0-0.9 [facility] Comment on above: Performed By: #### C TALIA, BMP ####[facility] ([id number])[address], [address], [place] [address] Monocytes/100 WBC (Bld) 4.4 % Normal [facility] Comment on above: Performed By: #### C TALIA, BMP ####[facility] ([id number])[address], [address], [place] [address] Neutrophils/100 WBC (Bld) 93.5 % Normal [facility] Comment on above: Performed By: #### C BCA, BMP ####[facility] ([id number])[address], [address], [place] [address] Platelet mean volume (Bld) [Entitic vol] 7.6 fL Normal 7-12 [facility] Comment on above: Performed By: #### C BCA, BMP ####[facility] ([id number])[address], [address], [place] [address] Platelets (Bld) [#/Vol] 145 10*3/uL Low 150-450 [facility] Comment on above: Performed By: #### C BCA, BMP ####[facility] ([id number])[address], [address], [place] [address] RBC COUNT 2.85 X10E12/L Low 3.80-5.20 [facility] Comment on above: Performed By: #### C BCA, BMP ####[facility] ([id number])[address], [address] [place] [address] WBC (Bld) [#/Vol] 9.9 10*3/uL Normal 4.0-11.0 [facility] Comment on above: Performed By: #### C BCA, BMP ####[facility] ([id number])[address], [address] [place] [address] PROTIME AND INRon 06-04-2024 INR Coag (PPP) [Relative time] 1.5 {INR} High 0.8-1.1 [facility] Comment on above: Performed By: #### P INR ####[facility] ([id number])[address], [address] [place] [address] PT Coag (PPP) [Time] 17.2 s High 9.8-13.2 [facility] Comment on above: Performed By: #### P INR ####[facility] ([id number])[address], [address] [place] [address] XR FEMUR LT 2+ VIEWSon 06-04 XR FEMUR LT 2+ VIEWS Normal [facility] AMYLASEon 06-03-2024 Amylase [Catalytic activity/Vol] 75 U/L Normal 28-100 [facility] Comment on above: Performed By: #### 4 8664-7, PINR, 31258-4, 1798-8, 3040-3, 5643-2 ####[facility] ([id number])[address], [address] [place] [address] BASIC METABOLIC PANLon 06-03 Anion gap [Moles/Vol] 9 mmol/L Normal 5-15 [facility] Comment on above: Performed By: #### P INR, CBCA, BMP ####[facility] ([id number])[address], [address] [place] [address] Calcium [Mass/Vol] 8.3 mg/dL Low 8.5-10.5 [facility] Comment on above: Performed By: #### P INR, CBCA, BMP ####[facility] ([id number])[address], [address] [place] [address] Chloride [Moles/Vol] 114 mmol/L High 98-109 [facility] Comment on above: Performed By: #### P INR, CBCA, BMP ####[facility] ([id number])[address], [address] [place] [address] CO2 [Moles/Vol] 21 mmol/L Low 22-32 [facility] Comment on above: Performed By: #### P INR, CBCA, BMP ####[facility] ([id number])[address], [facility] [facility] [place] [address] Creatinine [Mass/Vol] 1.68 mg/dL High 0.40-1.00 [facility] Comment on above: Result Comment: METH OD TRACEABLE TO IDMS STANDARD Performed By: #### P INR, CBCA, BMP ####[facility] ([id number])[address] [address] [place] [address], [place] [address] GFR/1.73 sq M.predicted among non-blacks MDRD (S/P/Bld) [Vol rate/Area] 33 mL/min/{1.73_m2} Low >59 [facility] Comment on above: Result Comment: Repo rted eGFR is based on theCKD-EPI 2020 equation that doesnot use a race coefficient. Performed By: #### P INR, CBCA, BMP ####[facility] ([id number])[address] [address], [place] [address] Glucose [Mass/Vol] 100 mg/dL High 65-99 [facility] Comment on above: Performed By: #### P INR, CBCA, BMP ####[facility] ([id number])[address], [address], [place] [address] Potassium [Moles/Vol] 4.0 mmol/L Normal 3.5-5.0 [facility] Comment on above: Performed By: #### P INR, CBCA, BMP ####[facility] ([id number])[address], [address], [place] [address] Sodium [Moles/Vol] 144 mmol/L Normal 134-146 [facility] Comment on above: Performed By: #### P INR, CBCA, BMP ####[facility] ([id number])[address], [address], [place] [address] Urea nitrogen [Mass/Vol] 33 mg/dL High 5-27 [facility] Comment on above: Performed By: #### P INR, CBCA, BMP ####[facility] ([id number])[address], [address], [place] [address] CBC AND AUTO DIFFon 06-03-20 24 ABSOLUTE BASOPHIL 0.1 X10E9/L Normal 0.0-0.2 [facility] Comment on above: Performed By: #### P INR, CBCA, BMP ####[facility] ([id number])[address], [address] [place] [address] ABSOLUTE NEUTROPHIL 7.4 X10E9/L High 1.5-6.6 [facility] Comment on above: Performed By: #### P INR, CBCA, BMP ####[facility] ([id number])[address] [address] [place] [address], [place] [address] Basophils/100 WBC (Bld) 0.7 % Normal [facility] Comment on above: Performed By: #### P INR, CBCA, BMP ####[facility] ([id number])[address] [address] [place] [address] Eosinophils (Bld) [#/Vol] 0.0 10*3/uL Normal 0.0-0.4 [facility] Comment on above: Performed By: #### P INR, CBCA, BMP ####[facility] ([id number])[address] [address] Eosinophils/100 WBC (Bld) 0.3 % Normal [facility] Comment on above: Performed By: #### P INR, CBCA, BMP ####[facility] ([id number])[address] [address] Erythrocyte distribution width (RBC) [Ratio] 13.7 % Normal 11.5-15.0 [facility] Comment on above: Performed By: #### P INR, CBCA, BMP ####[facility] ([id number])[address] [address] [place] [address] Hematocrit (Bld) [Volume fraction] 32.0 % Low 35-47 [facility] Comment on above: Performed By: #### P INR, CBCA, BMP ####[facility] ([id number])[address] [address] Hemoglobin (Bld) [Mass/Vol] 10.8 g/dL Low 11.7-15.5 [facility] Comment on above: Performed By: #### P INR, CBCA, BMP ####[facility] ([id number])[address] [address] Lymphocytes (Bld) [#/Vol] 0.9 10*3/uL Low 1.0-3.5 [facility] Comment on above: Performed By: #### P INR, CBCA, BMP ####[facility] ([id number])[address] [address] Lymphocytes/100 WBC (Bld) 9.4 % Normal [facility] Comment on above: Performed By: #### P INR, CBCA, BMP ####[facility] ([id number])[address], [address], [place] [address] MCH (RBC) [Entitic mass] 31.7 pg Normal 27-34 [facility] Comment on above: Performed By: #### P INR, CBCA, BMP ####[facility] ([id number])[address], [address] [address] MCHC (RBC) [Mass/Vol] 33.9 g/dL Normal 32-36 [facility] Comment on above: Performed By: #### P INR, CBCA, BMP ####[facility] ([id number])[address], [address] [address] MCV (RBC) [Entitic vol] 94 fL Normal 80-100 [facility] Comment on above: Performed By: #### P INR, CBCA, BMP ####[facility] ([id number])[address], [address] [place] [address] Monocytes (Bld) [#/Vol] 1.0 10*3/uL High 0-0.9 [facility] Comment on above: Performed By: #### P INR, CBCA, BMP ####[facility] ([id number])[address], [address] [place] [address] Monocytes/100 WBC (Bld) 10.4 % Normal [facility] Comment on above: Performed By: #### P INR, CBCA, BMP ####[facility] ([id number])[address], [address] [place] [address] Neutrophils/100 WBC (Bld) 79.2 % Normal [facility] Comment on above: Performed By: #### P INR, CBCA, BMP ####[facility] ([id number])[address], [address] [place] [address] Platelet mean volume (Bld) [Entitic vol] 7.7 fL Normal 7-12 [facility] Comment on above: Performed By: #### P INR, CBCA, BMP ####[facility] ([id number])[address] [address] [place] [address] Platelets (Bld) [#/Vol] 192 10*3/uL Normal 150-450 [facility] Comment on above: Performed By: #### P INR, CBCA, BMP ####[facility] ([id number])[address] [address] [place] [address] RBC COUNT 3.42 X10E12/L Low 3.80-5.20 [facility] Comment on above: Performed By: #### P INR, CBCA, BMP ####[facility] ([id number])[address] [address] [place] [address] WBC (Bld) [#/Vol] 9.3 10*3/uL Normal 4.0-11.0 [facility] Comment on above: Performed By: #### P INR, CBCA, BMP ####[facility] ([id number])[address] [address] [address] TIBFIB LT WO CONTon 06-03 CT [...] Rodriguez MD on 06/03/2024 12:12 AM Normal [facility] DRUG SCREEN, URINEon 024 AMPHETAMINE/METHAMP Negative Normal NEG [facility] Comment on above: Result Comment: AMPH /METH screening cut off = 1000 ng/mL Performed By: #### D SOW ####[facility] ([id number])[address], [address] [place] [address] BARBITURATES Negative Normal NEG [facility] Comment on above: Result Comment: Hannah iturates screening cut off value = 200 ng/mL Performed By: #### D SOW ####[facility] ([id number])[address], [address] [place] [address] BENZODIAZEPINES Negative Normal NEG [facility] Comment on above: Result Comment: Wes odiazepines screening cut off value = 200 ng/mL Performed By: #### D SOW ####[facility] ([id number])[address], [address] [place] [address] CANNABINOIDS Negative Normal NEG [facility] Comment on above: Result Comment: Tan abinoids/THC screening cut off value = 50 ng/mL Performed By: #### D SOW ####[facility] ([id number])[address], [address] [place] [address] COCAINE METABOLITE Negative Normal NEG [facility] Comment on above: Result Comment: Coca ine screening cut off value = 300 ng/mL Performed By: #### D SOW ####[facility] ([id number])[address], [address] [place] [address] ECSTASY Negative Normal NEG [facility] Comment on above: Result Comment: Ecst asy screening cut off value = 500 ng/mLThis report is intended for use in clinicalmonitoring or management of patients. Performed By: #### D SOW ####[facility] ([id number])[address], [address] [place] [address] METHADONE Negative Normal NEG [facility] Comment on above: Result Comment: Meth adone screening cut off value = 300 ng/mL. Performed By: #### D SOW ####[facility] ([id number])[address], [address] [place] [address] OPIATES Positive Abnormal NEG [facility] Comment on above: Result Comment: Conf irmation available upon request.Opiates screening cut off value = 300 ng/mLNOTE:This test is used for the detection ofcodeine, hydrocodone (>1000 ng/mL), morphineand hydromorphone (>900 ng/mL) in urine. Performed By: #### D SOW ####[facility] ([id number])[address], [address] [place] [address] OXYCODONE Negative Normal NEG [facility] Comment on above: Result Comment: Oxyc odone screening cut off value = 300 ng/mLNOTE:This test is used for the detection ofoxycodone and oxymorphone in urine. Performed By: #### D SOW ####[facility] ([id number])[address], [address] [place] [address] PHENCYCLIDINE Negative Normal NEG [facility] Comment on above: Result Comment: Phen cyclidine screening cut off value = 25 ng/mL Performed By: #### D SOW ####[facility] ([id number])[address] [facility], [address] [place] [address] ETHANOLon 06-03-2024 Ethanol [Mass/Vol] mg/dL Normal 0.00-0.08 [facility] Comment on above: Result Comment: This report is intended for use in clinicalmonitoring or management of patients. Performed By: #### 4 8664-7, PINR, 00871-7, 1798-8, 3040-3, 5643-2 ####[facility] ([id number])[address], [address] [place] [address] Fibrinogen Coagulation.deriv ed (PPP) [Mass/Vol]on 06-03-2024 FIBRINOGEN 370 mg/dL Normal 190-480 [facility] Comment on above: Performed By: #### 4 8664-7, PINR, 66689-2, 1798-8, 3040-3, 5643-2 ####[facility] ([id number])[address], [address] [place] [address] LIPASEon 06-03-2024 Lipase [Catalytic activity/Vol] 16 U/L Normal 11-82 [facility] Comment on above: Performed By: #### 4 8664-7, PINR, 46449-6, 1798-8, 3040-3, 5643-2 ####[facility] ([id number])[address], [address] [place] [address] PROTIME AND INRon 06-03-2024 INR Coag (PPP) [Relative time] 1.7 {INR} High 0.8-1.1 [facility] Comment on above: Performed By: #### P INR ####[facility] ([id number])[address], [address], [place] [address] PT Coag (PPP) [Time] 19.4 s High 9.8-13.2 [facility] Comment on above: Performed By: #### P INR ####[facility] ([id number])[address], [address] [place] [address] INR Coag (PPP) [Relative time] 2.3 {INR} High 0.8-1.1 [facility] Comment on above: Performed By: #### P INR, CBCA, BMP ####[facility] ([id number])[address], [address] [place] [address] PT Coag (PPP) [Time] 25.9 s High 9.8-13.2 [facility] Comment on above: Performed By: #### P INR, CBCA, BMP ####[facility] ([id number])[address], [address] [place] [address] INR Coag (PPP) [Relative time] 2.3 {INR} High 0.8-1.1 [facility] Comment on above: Performed By: #### 4 8664-7, PINR, 01397-0, 1798-8, 3040-3, 5643-2 ####[facility] ([id number])[address], [address], [place] [address] PT Coag (PPP) [Time] 26.3 s High 9.8-13.2 [facility] Comment on above: Performed By: #### 4 8664-7, PINR, 79661-1, 1798-8, 3040-3, 5643-2 ####[facility] ([id number])[address], [address], [place] [address] URINALYSISon 06-03-2024 Bilirubin Ql (U) Negative Normal NEG [facility] Comment on above: Performed By: #### U A ####[facility] ([id number])[address], [address], [place] [address] BLOOD/HGB Trace Abnormal NEG [facility] Comment on above: Performed By: #### U A ####[facility] ([id number])[address], [place] [address] CA OXALATE CRYSTALS PRESENT Abnormal NONE [facility] Comment on above: Performed By: #### U A ####[facility] ([id number])[address], [place] [address] Color (U) BROWN Abnormal YELLOW [facility] Comment on above: Performed By: #### U A ####[facility] ([id number])[address], [place] [address] Glucose Ql (U) Negative Normal NEG [facility] Comment on above: Performed By: #### U A ####[facility] ([id number])[address], [place] [address] Ketones Ql (U) Negative Normal NEG [facility] Comment on above: Performed By: #### U A ####[facility] ([id number])[address], [place] [address] Leukocyte esterase Test strip Ql (U) Large Abnormal NEG [facility] Comment on above: Performed By: #### U A ####[facility] ([id number])[address] [address] [place] [address] Nitrite Ql (U) Positive Abnormal NEG [facility] Comment on above: Performed By: #### U A ####[facility] ([id number])[address] [address] [place] [address] pH (U) 5.5 [pH] Normal 5.0-8.5 [facility] Comment on above: Performed By: #### U A ####[facility] ([id number])[address] [address] [place] [address] Protein Ql (U) 50 mg/dL Abnormal NEG [facility] Comment on above: Performed By: #### U A ####[facility] ([id number])[address] [address] [place] [address], [place] [address] R.B.CELLS 10 /hpf High 0-5 [facility] Comment on above: Performed By: #### U A ####[facility] ([id number])[address] [address] [place] [address], [place] [address] Specific gravity (U) [Rel density] 1.014 Normal 1.003-1.03 5 [facility] Comment on above: Performed By: #### U A ####[facility] ([id number])[address] [address] [place] [address] TURBIDITY CLOUDY Abnormal CLEAR [facility] Comment on above: Performed By: #### U A ####[facility] ([id number])[address] [address] [place] [address] Urobilinogen (U) [Mass/Vol] mg/dL Normal <1.1 [facility] Comment on above: Performed By: #### U A ####[facility] ([id number])[address], [place] [address] W.B.CELLS >720 High 0-5 [facility] Comment on above: Performed By: #### U A ####[facility] ([id number])[address] [address] WBC CLUMPS MANY Abnormal NONE [facility] Comment on above: Performed By: #### U A ####[facility] ([id number])[address] [address] [address] Vitamin D+Metabolites [Mass/ Vol]on 06-03-2024 VITAMIN D 25 HYD TOT 54.4 ng/mL Normal 30-100 [facility] Comment on above: Result Comment: Dannielle min D status 25 [place] Vitamin D Deficiency <20 ng/mLInsufficiency 20-29 ng/mLSufficiency 30-100 ng/mLToxicity >100 ng/mLNOTE: A pediatric reference range has not beenestablished by the ventilated rib fitter of this kit.The [place] [employer] recommendsa Vitamin D level of = or >20ng/mL in infantsand children. Performed By: #### 3 5365-6 ####[facility] ([id number])[address] [address], [place] [address] XR FEMUR LT 2+ VIEWSon 06-03 XR FEMUR LT 2+ VIEWS Normal [facility] aPTT Coag (PPP) [Time]on aPTT Coag (Bld) [Time] 38 s High 26-37 [facility] Comment on above: Performed By: #### 4 8664-7, PINR, 98079-2, 1798-8, 3040-3, 5643-2 ####[facility] ([id number])[address], [address] [address] CBC AND AUTO DIFFon 06-02-20 24 ABSOLUTE BASOPHIL 0.0 X10E9/L Normal 0.0-0.2 [facility] Comment on above: Performed By: #### C BCA, 2131-9, 72241-4, FEPR, 2276-4, 2284- 8, 63859-8, LIVR, 2731-8, 51956-4 #### [facility] ([id number]) [address], [address] [place] [address] #### VITASP, 2998-3 #### [facility] ([id number]) [address] [place] [address] ABSOLUTE NEUTROPHIL 8.9 X10E9/L High 1.5-6.6 [facility] Comment on above: Performed By: #### C BCA, 2131-9, 46893-4, FEPR, 2276-4, 2284- 8, 70297-6, LIVR, 2731-8, 17365-7 #### [facility] ([id number]) [address], [address] [place] [address] #### VITASP, 2998-3 #### [facility] ([id number]) [address] [place] [address] Basophils/100 WBC (Bld) 0.3 % Normal [facility] Comment on above: Performed By: #### C BCA, 2131-9, 70334-4, FEPR, 2276-4, 2284- 8, 85650-4, LIVR, 2731-8, 25808-3 #### [facility] ([id number]) [address], [address] [place] [address] #### VITASP, 2998-3 #### [facility] ([id number]) [address] [place] [address] Eosinophils (Bld) [#/Vol] 0.1 10*3/uL Normal 0.0-0.4 [facility] Comment on above: Performed By: #### C BCA, 2131-, 80589-8, FEPR, 2276-4, 2284- 8, 05568-1, LIVR, 2731-8, 44113-8 #### [facility] ([id number]) [address], [address] [place] [address] #### VITASP, 2998-3 #### [facility] ([id number]) [address] [place] [address] Eosinophils/100 WBC (Bld) 0.9 % Normal [facility] Comment on above: Performed By: #### C BCA, 2132-05, 38469-2, FEPR, 2276-4, 2284- 8, 88963-3, LIVR, 2731-8, 13971-0 #### [facility] ([id number]) [address], [address] [place] [address] #### VITASP, 2998-3 #### [facility] ([id number]) [address] [place] [address] Erythrocyte distribution width (RBC) [Ratio] 14.1 % Normal 11.5-15.0 [facility] Comment on above: Performed By: #### C BCA, 2132-05, 72695-3, FEPR, 2276-4, 2284- 8, 74226-5, LIVR, 2731-8, 98080-7 #### [facility] ([id number]) [address], [address] [place] [address] #### VITASP, 2998-3 #### [facility] ([id number]) [address] [place] [address] Hematocrit (Bld) [Volume fraction] 37.8 % Normal 35-47 [facility] Comment on above: Performed By: #### C BCA, 2-9, 54151-6, FEPR, 2276-4, 2284- 8, 57643-8, LIVR, 2731-8, 93698-9 #### [facility] ([id number]) [address] [facility] [address] [place] [address] #### VITASP, 2998-3 #### [facility] ([id number]) [address] [place] [address] Hemoglobin (Bld) [Mass/Vol] 12.6 g/dL Normal 11.7-15.5 [facility] Comment on above: Performed By: #### C BCA, 2131-9, 90299-2, FEPR, 2276-4, 2284- 8, 98807-6, LIVR, 2731-8, 79579-2 #### [facility] ([id number]) [address] [facility], [address] [place] [address] #### VITASP, 2998-3 #### [facility] ([id number]) [address] [place] [address] Lymphocytes (Bld) [#/Vol] 0.8 10*3/uL Low 1.0-3.5 [facility] Comment on above: Performed By: #### C BCA, 2-9, 08204-8, FEPR, 2276-4, 2284- 8, 09873-5, LIVR, 2731-8, 22258-1 #### [facility] ([id number]) [address], [address] [place] [address] #### VITASP, 2998-3 #### [facility] ([id number]) [address] [place] [address] Lymphocytes/100 WBC (Bld) 7.8 % Normal [facility] Comment on above: Performed By: #### C BCA, 2132-9, 83133-7, FEPR, 2276-4, 2284- 8, 45418-9, LIVR, 2731-8, 74756-8 #### [facility] ([id number]) [address] [facility], [address] [place] [address] #### VITASP, 2998-3 #### [facility] ([id number]) [address] [place] [address] MCH (RBC) [Entitic mass] 31.3 pg Normal 27-34 [facility] Comment on above: Performed By: #### C BCA, 2-9, 52344-8, FEPR, 2276-4, 2284- 8, 04664-8, LIVR, 2731-8, 72216-6 #### [facility] ([id number]) [address] [facility], [address] [place] [address] #### VITASP, 2998-3 #### [facility] ([id number]) [address] [place] [address] MCHC (RBC) [Mass/Vol] 33.3 g/dL Normal 32-36 [facility] Comment on above: Performed By: #### C BCA, 2-9, 75814-2, FEPR, 2276-4, 2284- 8, 83123-0, LIVR, 2731-8, 27232-8 #### [facility] ([id number]) [address], [address] [place] [address] #### VITASP, 2998-3 #### [facility] ([id number]) [address] [place] [address] MCV (RBC) [Entitic vol] 94 fL Normal 80-100 [facility] Comment on above: Performed By: #### C BCA, 9, 12330-1, FEPR, 2276-4, 2284- 8, 57455-8, LIVR, 2731-8, 32854-1 #### [facility] ([id number]) [address] [facility], [address] [place] [address] #### VITASP, 2998-3 #### [facility] ([id number]) [address] [place] [address] Monocytes (Bld) [#/Vol] 0.4 10*3/uL Normal 0-0.9 [facility] Comment on above: Performed By: #### C BCA, 2132-05, 11948-7, FEPR, 2276-4, 2284- 8, 65063-7, LIVR, 2731-8, 51301-4 #### [facility] ([id number]) [address] [facility], [address] [place] [address] #### VITASP, 2998-3 #### [facility] ([id number]) [address] [place] [address] Monocytes/100 WBC (Bld) 4.1 % Normal [facility] Comment on above: Performed By: #### C BCA, 2132-05, 77208-9, FEPR, 2276-4, 2284- 8, 89346-4, LIVR, 2731-8, 91846-3 #### [facility] ([id number]) [address] [facility], [address] [place] [address] #### VITASP, 2998-3 #### [facility] ([id number]) [address] [place] [address] Neutrophils/100 WBC (Bld) 86.9 % Normal [facility] Comment on above: Performed By: #### C BCA, 2131-9, 39488-2, FEPR, 2276-4, 2284- 8, 42139-5, LIVR, 2731-8, 60956-7 #### [facility] ([id number]) [address], [address] [place] [address] #### VITASP, 2998-3 #### [facility] ([id number]) [address] [place] [address]18 Platelet mean volume (Bld) [Entitic vol] 7.3 fL Normal 7-12 [facility] Comment on above: Performed By: #### C BCA, 2131-, 63728-3, FEPR, 2276-4, 2284- 8, 94345-6, LIVR, 2731-8, 33250-0 #### [facility] ([id number]) [address], [address] [place] [address] #### VITASP, 2998-3 #### [facility] ([id number]) [address] [place] [address]709 Platelets (Bld) [#/Vol] 250 10*3/uL Normal 150-450 [facility] Comment on above: Performed By: #### C BCA, 2132-05, 64572-1, FEPR, 2276-4, 2284- 8, 86797-0, LIVR, 2731-8, 40074-5 #### [facility] ([id number]) [address], [address] [place] [address] #### VITASP, 2998-3 #### [facility] ([id number]) [address] [place] [address]331 RBC COUNT 4.03 X10E12/L Normal 3.80-5.20 [facility] Comment on above: Performed By: #### C BCA, 2131-9, 89644-0, FEPR, 2276-4, 2284- 8, 90906-0, LIVR, 2731-8, 73136-2 #### [facility] ([id number]) [address], [address] [place] [address] #### VITASP, 2998-3 #### [facility] ([id number]) [address] [place] [address] 21565 WBC (Bld) [#/Vol] 10.3 10*3/uL Normal 4.0-11.0 [facility] Comment on above: Performed By: #### C BCA, 2132-9, 90855-3, FEPR, 2276-4, 2284- 8, 33607-7, LIVR, 2731-8, 59115-8 #### [facility] ([id number]) [address], [address] [place] [address] #### VITASP, 2998-3 #### [facility] ([id number]) [address] [place] [address] COMPREHENSIVE METABOLIC PANE Byron 06-02-2024 Albumin [Mass/Vol] 4.2 g/dL Normal 3.2-5.3 [facility] Comment on above: Performed By: #### C BCA, 2-9, 08555-0, FEPR, 2276-4, 2284- 8, 40916-0, LIVR, 2731-8, 39419-5 #### [facility] ([id number]) [address], [address] [place] [address] #### VITASP, 2998-3 #### [facility] ([id number]) [address] [place] [address] 75473 ALP [Catalytic activity/Vol] 73 U/L Normal 39-130 [facility] Comment on above: Performed By: #### C BCA, 2132-9, 61006-8, FEPR, 2276-4, 2284- 8, 89489-7, LIVR, 2731-8, 23632-6 #### [facility] ([id number]) [address] [facility], [address] [place] [address] #### VITASP, 2998-3 #### [facility] ([id number]) [address] [place] [address] 49908 ALT [Catalytic activity/Vol] 22 U/L Normal 0-31 [facility] Comment on above: Performed By: #### C BCA, 2131-9, 86839-7, FEPR, 2276-4, 2284- 8, 46003-2, LIVR, 2731-8, 66349-0 #### [facility] ([id number]) [address] [facility], [address] [place] [address] #### VITASP, 2998-3 #### [facility] ([id number]) [address] [place] [address] 05626 Anion gap [Moles/Vol] 12 mmol/L Normal 5-15 [facility] Comment on above: Performed By: #### C BCA, 2131-9, 44267-6, FEPR, 2276-4, 2284- 8, 70202-0, LIVR, 2731-8, 67368-1 #### [facility] ([id number]) [address] [facility], [address] [place] [address] #### VITASP, 2998-3 #### [facility] ([id number]) [address] [place] [address] 78464 AST [Catalytic activity/Vol] 20 U/L Normal 0-41 [facility] Comment on above: Performed By: #### C BCA, 2131-9, 41761-1, FEPR, 2276-4, 2284- 8, 68216-2, LIVR, 2731-8, 14495-9 #### [facility] ([id number]) [address] [facility], [address] [place] [address] #### VITASP, 2998-3 #### [facility] ([id number]) [address] [place] [address] 62480 Bilirubin [Mass/Vol] 0.7 mg/dL Normal 0.3-1.2 [facility] Comment on above: Performed By: #### C BCA, 2132-9, 45066-4, FEPR, 2276-4, 2284- 8, 21832-3, LIVR, 2731-8, 08201-7 #### [facility] ([id number]) [address], [address] [place] [address] #### VITASP, 2998-3 #### [facility] ([id number]) [address] [place] [address] 13067 Calcium [Mass/Vol] 8.7 mg/dL Normal 8.5-10.5 [facility] Comment on above: Performed By: #### C BCA, 2-9, 19702-6, FEPR, 2276-4, 2284- 8, 77908-7, LIVR, 2731-8, 27920-6 #### [facility] ([id number]) [address], [address] [place] [address] #### VITASP, 2998-3 #### [facility] ([id number]) [address] [place] [address] 50303 Chloride [Moles/Vol] 108 mmol/L Normal 98-109 [facility] Comment on above: Performed By: #### C BCA, 2132-9, 92008-6, FEPR, 2276-4, 2284- 8, 59568-5, LIVR, 2731-8, 40921-9 #### [facility] ([id number]) [address], [address] [place] [address] #### VITASP, 2998-3 #### [facility] ([id number]) [address] [place] [address] CO2 [Moles/Vol] 17 mmol/L Low 22-32 [facility] Comment on above: Performed By: #### C BCA, 9, 16838-1, FEPR, 2276-4, 2284- 8, 45742-7, LIVR, 2731-8, 71751-2 #### [facility] ([id number]) [address] [place] [address], [address] [place] [address] #### VITASP, 2998-3 #### [facility] ([id number]) [address] [place] [address] 81345 Creatinine [Mass/Vol] 1.86 mg/dL High 0.40-1.00 [facility] Comment on above: Result Comment: METH OD TRACEABLE TO IDMS STANDARD Performed By: #### C BCA, 2132-05, 61836-6, FEPR, 2276-4, 2284-8, 15519-9, LIVR, 2731-8, 77331-8 #### [facility] ([id number]) [address] [place] [address], [address] [address] #### VITASP, 2998-3 #### [facility] ([id number]) [address] [place] [address]32 GFR/1.73 sq M.predicted among non-blacks MDRD (S/P/Bld) [Vol rate/Area] 29 mL/min/{1.73_m2} Low >59 [facility] Comment on above: Result Comment: Reported eGFR is based on the CKD-EPI 2020 equation that does not use a race coefficient. Performed By: #### C BCA, 9, 17474-1, FEPR, 2276-4, 2284-8, 44000-9, LIVR, 2731-8, 98723-3 #### [facility] ([id number]) [address], [address] [place] [address] #### VITASP, 2998-3 #### [facility] ([id number]) [address] [place] [address] 26834 Glucose [Mass/Vol] 133 mg/dL High 65-99 [facility] Comment on above: Performed By: #### C BCA, 2-9, 60631-0, FEPR, 2276-4, 2284- 8, 15111-3, LIVR, 2731-8, 98476-4 #### [facility] ([id number]) [address], [address] [place] [address] #### VITASP, 2998-3 #### [facility] ([id number]) [address] [place] [address] 71041 Potassium [Moles/Vol] 3.7 mmol/L Normal 3.5-5.0 [facility] Comment on above: Performed By: #### C BCA, 2131-9, 38668-3, FEPR, 2276-4, 2284- 8, 32150-3, LIVR, 2731-8, 75133-4 #### [facility] ([id number]) [address], [address] [place] [address] #### VITASP, 2998-3 #### [facility] ([id number]) [address] [place] [address] 87155 Protein [Mass/Vol] 7.0 g/dL Normal 6.0-8.0 [facility] Comment on above: Performed By: #### C BCA, 2-9, 44217-4, FEPR, 2276-4, 2284- 8, 64126-4, LIVR, 2731-8, 65987-4 #### [facility] ([id number]) [address], [address] [place] [address] #### VITASP, 2998-3 #### [facility] ([id number]) [address] [place] [address] Sodium [Moles/Vol] 137 mmol/L Normal 134-146 [facility] Comment on above: Performed By: #### C BCA, 2132-9, 80126-4, FEPR, 2276-4, 2284- 8, 19047-9, LIVR, 2731-8, 26712-0 #### [facility] ([id number]) [address] [place] [address], [address] [place] [address] #### VITASP, 2998-3 #### [facility] ([id number]) [address] [place] [address] Urea nitrogen [Mass/Vol] 43 mg/dL High 5-27 [facility] Comment on above: Performed By: #### C BCA, 2132-9, 38417-2, FEPR, 2276-4, 2284- 8, 19098-6, LIVR, 2731-8, 35669-3 #### [facility] ([id number]) [address] [place] [address], [address] [place] [address] #### VITASP, 2998-3 #### [facility] ([id number]) [address] [place] [address] CT FEMUR LT WO CONTon 2023 CT [...] Loyola MD on 06/02/2024 10:47 PM Normal [facility] PROTIME AND INRon 06-02-2024 INR Coag (PPP) [Relative time] 2.0 {INR} High 0.8-1.1 [facility] Comment on above: Performed By: #### C BCA, 2132-9, 11804-5, FEPR, 2276-4, 2284- 8, 31806-1, LIVR, 2731-8, 52019-3 #### [facility] ([id number]) [address], [address] [place] [address] #### VITASP, 2998-3 #### [facility] ([id number]) [address] [place] [address] 90006 PT Coag (PPP) [Time] 23.1 s High 9.8-13.2 [facility] Comment on above: Result Comment: NEW REFERENCE RANGE Performed By: #### C BCA, 2132-9, 27734-8, FEPR, 2276-4, 2284-8, 74878-6, LIVR, 2731-8, 38514-2 #### [facility] ([id number]) [address], [address] [place] [address] #### VITASP, 2998-3 #### [facility] ([id number]) [address] [place] [address] 76208 XR CHEST 1 VWon 06-02-2024 XR CHEST [...] Dickens MD on 06/02/2024 10:50 PM Normal [facility] XR HIP LT 2-3 VIEWS W OR [...] Loyola MD on 06/02/2024 5:28 PM Normal [facility] XR KNEE LT 3 VWSon XR KNEE [...] Dickens MD on 06/02/2024 5:33 PM Normal [facility] aPTT Coag (PPP) [Time]on aPTT Coag (Bld) [Time] 39 s High 26-37 [facility] Comment on above: Result Comment: NEW REFERENCE RANGE Performed By: #### C BCA, 2132-9, 78223-4, FEPR, 2276-4, 2284-8, 67277-6, LIVR, 2731-8, 31291-3 #### [facility] ([id number]) [address] [facility], [address] [place] [address] #### VITASP, 2998-3 #### [facility] ([id number]) [address] [facility], [place] [address] 36on 05-26-2024 36 Faxed clearance to Miriam Linares office at [phone]. Nurse notified [facility] manages coumadin Normal [facility] Orders Onlyon 05-25-2024 Orders Only [id number] Keila Allen 1955 F Date Provider Department Center 05/25/2024 GLORIA PATEL [facility] CARD [facility] No family history on file Normal [facility] No Panel Informationon 05-04 Results can be seen in attached scanned documents. If you are a patient reviewing this test result, call the doctor who ordered the test with any questions. [facility] MR SHOULDER LEFT WO IV CONTR Gurpreet [...] Comment: MRI L T shoulder w/o at [facility]. Orbits if needed. MR Brain WO and [...] than one vessel associated with each lesion. Tractor Mechanic: JENNA Transcribe Date/Time: May 02 2024 2:36P Dictated by : MALIHA HEIN MD This examination was interpreted and the report reviewed and electronically signed by: ZAIDA KIM MD on May 02 2024 3:43PM [facility] DIVISION OF RADIOLOGY * * *Final Report* [...] risk factors who initially presented to the [facility] in May 2018 for further evaluation [...] Improvement: None. New Enhancing Lesions: None T2 [place] of Disease: Moderate. Parenchymal Volume Loss: None. [...] equal to 2mm). DIVISION OF RADIOLOGY Provider, [facility] - 05/02/2024 * * *Final Report* [...] risk factors who initially presented to the [facility] in May 2018 for further evaluation [...] Improvement: None. New Enhancing Lesions: None T2 [place] of Disease: Moderate. Parenchymal Volume Loss: None. [...] than one vessel associated with each lesion. Tractor Mechanic: JENNA Transcribe Date/Time: May 02 2024 2:36P Dictated by : MALIHA HEIN MD This examination was interpreted and the report reviewed and electronically signed by: ZAIDA KIM MD on May 02 2024 3:43PM [facility] Radiology Study observation (narrative) [facility] MR Brain WO and W contrast I VOrdered By: [facility] Provider on 05-02-2024 [facility] MRI 7T BRAIN WO/W IVCONon MRI 7T [...] risk factors who initially presented to the [facility] in May 2018 for further evaluation [...] Improvement: None. New Enhancing Lesions: None T2 [place] of Disease: Moderate. Parenchymal Volume Loss: None. [...] than one vessel associated with each lesion. Tractor Mechanic: JENNA Transcribe Date/Time: May 02 2024 2:36P Dictated by : MALIHA HEIN MD This examination was interpreted and the report reviewed and electronically signed by: ZAIDA KIM MD on May 02 2024 3:43PM EST [id number] Normal [facility] POCT Protime / INRon 04-21-2 024 INR Coag (PPP) [Relative time] 2.1 {INR} Abnormal 0.8 - 1.2 [employer] Interpretation and review of laboratory results Abnormal [employer] [facility] XR SHOULDER 2+ VIEWS LEFTon 04-20-2024 [...] approved by the interpreting Radiologist. Electronically Signed Zaida Pearson D.O. 2024-04-21 13:26:44 Normal Not Available [...] in the pelvis/left hip. Finalized by Isaías Skyes MD on 04/17/2024 4:40 PM Normal [facility] XR KNEE LT 3 VWSon XR KNEE LT 3 VWS XR KNEE LT 3 VWS XR KNEE LT 3 VWS HISTORY: Fall with knee pain. COMPARISON: None. IMPRESSION: 1. No acute fracture or dislocation. No large joint effusion. 2. Knee prosthesis. Finalized by Guevara Archer MD on 04/17/2024 4:30 PM Normal [facility] XR SHOULDER RT MIN 2 VWSon 0 [...] Sykes MD on 04/17/2024 4:33 PM Normal [facility] POCT Protime / INRon 04-06-2 024 INR Coag (PPP) [Relative time] 1.4 {INR} Abnormal 0.8 - 1.2 [facility] Interpretation and review of laboratory results Abnormal [facility] POCT Protime / INRon 02-22- 024 INR Coag (PPP) [Relative time] 2.2 {INR} Abnormal 0.8 - 1.2 [facility] Interpretation and review of laboratory results Abnormal [facility] COMPREHENSIVE METABOLIC PANE [place] 02-15-2024 Albumin [Mass/Vol] 4.2 g/dL Normal 3.2-5.3 [facility] Comment on above: Performed By: #### C BCA, 2132-9, 60153-5, FEPR, 2276-4, 2284- 8, 03751-6, LIVR, 8401-8, 35365-8 #### [facility] ([id number]) [address], [address] [place] [address] #### VITASP, 2998-3 #### [facility] ([id number]) [address] [place] [address] ALP [Catalytic activity/Vol] 73 U/L Normal 39-130 [facility] Comment on above: Performed By: #### C BCA, 2131-9, 68233-7, FEPR, 2276-4, 2284- 8, 22121-9, LIVR, 2731-8, 11804-5 #### [facility] ([id number]) [address], [address] [place] [address] #### VITASP, 2998-3 #### [facility] ([id number]) [address] [place] [address]33 ALT [Catalytic activity/Vol] 22 U/L Normal 0-31 [facility] Comment on above: Performed By: #### C BCA, 2131-9, 18545-7, FEPR, 2276-4, 2284- 8, 72044-3, LIVR, 2731-8, 24001-7 #### [facility] ([id number]) [address], [address] [place] [address] #### VITASP, 2998-3 #### [facility] ([id number]) [address] [place] [address] Anion gap [Moles/Vol] 11 mmol/L Normal 5-15 [facility] Comment on above: Performed By: #### C BCA, 2131-9, 27350-9, FEPR, 2276-4, 2284- 8, 87712-6, LIVR, 2731-8, 57472-8 #### [facility] ([id number]) [address], [address] [place] [address] #### VITASP, 2998-3 #### [facility] ([id number]) [address] [place] [address] 90328 AST [Catalytic activity/Vol] 22 U/L Normal 0-41 [facility] Comment on above: Performed By: #### C BCA, 2132-9, 08078-9, FEPR, 2276-4, 2284- 8, 19490-2, LIVR, 2731-8, 59162-5 #### [facility] ([id number]) [address] [facility], [address] [place] [address] #### VITASP, 2998-3 #### [facility] ([id number]) [address] [place] [address]84 Bilirubin [Mass/Vol] 0.4 mg/dL Normal 0.3-1.2 [facility] Comment on above: Performed By: #### C BCA, 2131-9, 38082-4, FEPR, 2276-4, 2284- 8, 15259-6, LIVR, 2731-8, 81648-2 #### [facility] ([id number]) [address] [facility], [address] [place] [address] #### VITASP, 2998-3 #### [facility] ([id number]) [address] [place] [address] 19422 Calcium [Mass/Vol] 8.9 mg/dL Normal 8.5-10.5 [facility] Comment on above: Performed By: #### C BCA, 2-9, 28378-6, FEPR, 2276-4, 2284- 8, 51332-1, LIVR, 2731-8, 29938-3 #### [facility] ([id number]) [address] [facility], [address] [place] [address] #### VITASP, 2998-3 #### [facility] ([id number]) [address] [place] [address] 49048 Chloride [Moles/Vol] 108 mmol/L Normal 98-109 [facility] Comment on above: Performed By: #### C BCA, 2131-9, 50402-7, FEPR, 2276-4, 2284- 8, 04123-4, LIVR, 2731-8, 82609-6 #### [facility] ([id number]) [address] [facility], [address] [place] [address] #### VITASP, 2998-3 #### [facility] ([id number]) [address] [place] [address] 38990 CO2 [Moles/Vol] 21 mmol/L Low 22-32 [facility] Comment on above: Performed By: #### C BCA, 2132-05, 74519-1, FEPR, 2276-4, 2284- 8, 98802-9, LIVR, 2731-8, 26284-1 #### [facility] ([id number]) [address] [facility], [address] [place] [address] #### VITASP, 2998-3 #### [facility] ([id number]) [address] [place] [address] 82323 Creatinine [Mass/Vol] 1.47 mg/dL High 0.40-1.00 [facility] Comment on above: Result Comment: METH OD TRACEABLE TO IDMS STANDARD Performed By: #### C BCA, 9, 49493-3, FEPR, 2276-4, 2284-8, 45755-3, LIVR, 2731-8, 33048-9 #### [facility] ([id number]) [address], [address] [place] [address] #### VITASP, 2998-3 #### [facility] ([id number]) [address] [place] [address] 36889 GFR/1.73 sq M.predicted among non-blacks MDRD (S/P/Bld) [Vol rate/Area] 38 mL/min/{1.73_m2} Low >59 [facility] Comment on above: Result Comment: Reported eGFR is based on the CKD-EPI 2020 equation that does not use a race coefficient. Performed By: #### C BCA, 2131-9, 37300-9, FEPR, 2276-4, 2284-8, 83838-3, LIVR, 2731-8, 50333-7 #### [facility] ([id number]) [address], [address] [place] [address] #### VITASP, 2998-3 #### [facility] ([id number]) [address] [place] [address] 50252 Glucose [Mass/Vol] 102 mg/dL High 65-99 [facility] Comment on above: Performed By: #### C BCA, 2132-05, 50197-7, FEPR, 2276-4, 2284- 8, 06137-6, LIVR, 2731-8, 57711-2 #### [facility] ([id number]) [address], [address] [place] [address] #### VITASP, 2998-3 #### [facility] ([id number]) [address] [place] [address] 12951 Potassium [Moles/Vol] 3.5 mmol/L Normal 3.5-5.0 [facility] Comment on above: Performed By: #### C BCA, 2131-9, 94294-7, FEPR, 2276-4, 2284- 8, 06118-7, LIVR, 2731-8, 95421-3 #### [facility] ([id number]) [address], [address] [place] [address] #### VITASP, 2998-3 #### [facility] ([id number]) [address] [place] [address] Protein [Mass/Vol] 7.0 g/dL Normal 6.0-8.0 [facility] Comment on above: Performed By: #### C BCA, 2131-9, 13071-3, FEPR, 2276-4, 2284- 8, 75407-2, LIVR, 2731-8, 28278-4 #### [facility] ([id number]) [address], [address] [place] [address] #### VITASP, 2998-3 #### [facility] ([id number]) [address] [place] [address] 70482 Sodium [Moles/Vol] 140 mmol/L Normal 134-146 [facility] Comment on above: Performed By: #### C BCA, 2132-05, 00882-3, FEPR, 2276-4, 2284- 8, 11162-2, LIVR, 2731-8, 30462-8 #### [facility] ([id number]) [address], [address] [place] [address] #### VITASP, 2998-3 #### [facility] ([id number]) [address] [place] [address] 14786 Urea nitrogen [Mass/Vol] 41 mg/dL High 5-27 [facility] Comment on above: Performed By: #### C BCA, 2131-9, 58555-6, FEPR, 2276-4, 2284- 8, 43114-9, LIVR, 2731-8, 78130-5 #### [facility] ([id number]) [address], [address] [place] [address] #### VITASP, 2998-3 #### [facility] ([id number]) [address] [place] [address] 75657 POCT Protime / INRon 024 INR Coag (PPP) [Relative time] 1.9 {INR} Abnormal 0.8 - 1.2 [facility] Interpretation and review of laboratory results Abnormal [facility] POCT Protime / INRon 024 INR Coag (PPP) [Relative time] 4.1 {INR} Abnormal 0.8 - 1.2 [facility] Interpretation and review of laboratory results Abnormal [facility] POCT Protime / INRon 024 INR Coag (PPP) [Relative time] 1.3 {INR} Abnormal 0.8 - 1.2 [facility] Interpretation and review of laboratory results Abnormal [facility] CALCIUMon 11-30-2023 Calcium [Mass/Vol] 9.1 mg/dL Normal 8.5-10.5 [facility] Comment on above: Performed By: #### C BCA, 9, 23498-2, FEPR, 2276-4, 2284- 8, 93066-9, LIVR, 2731-8, 32362-7 #### [facility] ([id number]) [address] [place] [address], [address] [place] [address] #### VITASP, 2998-3 #### [facility] ([id number]) [address] [place] [address] 04804 CBC AND AUTO DIFFon 11-30-19 24 ABSOLUTE BASOPHIL 0.1 X10E9/L Normal 0.0-0.2 [facility] Comment on above: Performed By: #### C BCA, 9, 37173-3, FEPR, 2276-4, 2284- 8, 44531-8, LIVR, 2731-8, 77436-9 #### [facility] ([id number]) [address] [place] [address], [address] [place] [address] #### VITASP, 2998-3 #### [facility] ([id number]) [address] [place] [address] 88597 ABSOLUTE NEUTROPHIL 5.7 X10E9/L Normal 1.5-6.6 [facility] Comment on above: Performed By: #### C BCA, 2132-05, 19143-2, FEPR, 2276-4, 2284- 8, 23106-2, LIVR, 2731-8, 32758-1 #### [facility] ([id number]) [address], [address] [place] [address] #### VITASP, 2998-3 #### [facility] ([id number]) [address] [place] [address] 55964 Basophils/100 WBC (Bld) 0.8 % Normal [facility] Comment on above: Performed By: #### C BCA, 2132-05, , FEPR, 2276-4, 2284- 8, 19823-5, LIVR, 2731-8, 47005-7 #### [facility] ([id number]) [address], [address] [place] [address] #### VITASP, 2998-3 #### [facility] ([id number]) [address] [place] [address] 52683 Eosinophils (Bld) [#/Vol] 0.1 10*3/uL Normal 0.0-0.4 [facility] Comment on above: Performed By: #### C BCA, 2132-05, , FEPR, 2276-4, 2284- 8, 21207-9, LIVR, 2731-8, 73535-8 #### [facility] ([id number]) [address], [address] [place] [address] #### VITASP, 2998-3 #### [facility] ([id number]) [address] [place] [address] 05164 Eosinophils/100 WBC (Bld) 1.8 % Normal [facility] Comment on above: Performed By: #### C BCA, 2132-05, 98846-4, FEPR, 2276-4, 2284- 8, 61359-8, LIVR, 2731-8, 49229-4 #### [facility] ([id number]) [address] [place] [address], [address] [place] [address] #### VITASP, 2998-3 #### [facility] ([id number]) [address] [place] [address] 99084 Erythrocyte distribution width (RBC) [Ratio] 13.9 % Normal 11.5-15.0 [facility] Comment on above: Performed By: #### C BCA, 2131-9, 88644-4, FEPR, 2276-4, 2284- 8, 21414-8, LIVR, 2731-8, 45637-9 #### [facility] ([id number]) [address] [place] [address], [address] [place] [address] #### VITASP, 2998-3 #### [facility] ([id number]) [address] [place] [address] 57073 Hematocrit (Bld) [Volume fraction] 38.2 % Normal 35-47 [facility] Comment on above: Performed By: #### C BCA, 2132-05, 33266-5, FEPR, 2276-4, 2284- 8, 45655-6, LIVR, 2731-8, 43956-9 #### [facility] ([id number]) [address] [place] [address], [address] [place] [address] #### VITASP, 2998-3 #### [facility] ([id number]) [address] [place] [address] 50377 Hemoglobin (Bld) [Mass/Vol] 12.8 g/dL Normal 11.7-15.5 [facility] Comment on above: Performed By: #### C BCA, 2131-9, 25997-8, FEPR, 2276-4, 2284- 8, 63823-2, LIVR, 2731-8, 32459-6 #### [facility] ([id number]) [address], [address] [place] [address] #### VITASP, 2998-3 #### [facility] ([id number]) [address] [place] [address] 51418 Lymphocytes (Bld) [#/Vol] 1.2 10*3/uL Normal 1.0-3.5 [facility] Comment on above: Performed By: #### C BCA, 2131-9, 59468-0, FEPR, 2276-4, 2284- 8, 67837-1, LIVR, 2731-8, 77166-6 #### [facility] ([id number]) [address], [address] [place] [address] #### VITASP, 2998-3 #### [facility] ([id number]) [address] [place] [address] 09045 Lymphocytes/100 WBC (Bld) 15.8 % Normal [facility] Comment on above: Performed By: #### C BCA, 2131-9, 63492-5, FEPR, 2276-4, 2284- 8, 60590-8, LIVR, 2731-8, 43655-4 #### [facility] ([id number]) [address], [address] [place] [address] #### VITASP, 2998-3 #### [facility] ([id number]) [address] [place] [address] 93516 MCH (RBC) [Entitic mass] 31.7 pg Normal 27-34 [facility] Comment on above: Performed By: #### C BCA, 2131-9, 51319-2, FEPR, 2276-4, 2284- 8, 80523-2, LIVR, 2731-8, 92885-6 #### [facility] ([id number]) [address], [address] [place] [address] #### VITASP, 2998-3 #### [facility] ([id number]) [address] [place] [address] 50648 MCHC (RBC) [Mass/Vol] 33.4 g/dL Normal 32-36 [facility] Comment on above: Performed By: #### C BCA, 2131-9, 13913-3, FEPR, 2276-4, 2284- 8, 67431-4, LIVR, 2731-8, 23055-7 #### [facility] ([id number]) [address] [facility], [address] [place] [id number] #### VITASP, 2998-3 #### [facility] ([id number]) [address] [place] [address] 85595 MCV (RBC) [Entitic vol] 95 fL Normal 80-100 [facility] Comment on above: Performed By: #### C BCA, 2132-05, 79079-1, FEPR, 2276-4, 2284- 8, 19964-6, LIVR, 2731-8, 15083-4 #### [facility] ([id number]) [address], [address] [place] [address] #### VITASP, 2998-3 #### [facility] ([id number]) [address] [place] [address] 93844 Monocytes (Bld) [#/Vol] 0.3 10*3/uL Normal 0-0.9 [facility] Comment on above: Performed By: #### C BCA, 2131-, 08362-6, FEPR, 2276-4, 2284- 8, 33462-4, LIVR, 2731-8, 24683-0 #### [facility] ([id number]) [address], [address] [place] [address] #### VITASP, 2998-3 #### [facility] ([id number]) [address] [place] [address] 88200 Monocytes/100 WBC (Bld) 3.5 % Normal [facility] Comment on above: Performed By: #### C BCA, 2132-9, 29629-7, FEPR, 2276-4, 2284- 8, 97340-6, LIVR, 2731-8, 12871-6 #### [facility] ([id number]) [address], [address] [place] [address] #### VITASP, 2998-3 #### [facility] ([id number]) [address] [place] [address] 93471 Neutrophils/100 WBC (Bld) 78.1 % Normal [facility] Comment on above: Performed By: #### C BCA, 2131-9, 22550-8, FEPR, 2276-4, 2284- 8, 69330-5, LIVR, 2731-8, 81805-4 #### [facility] ([id number]) [address], [address] [place] [address] #### VITASP, 2998-3 #### [facility] ([id number]) [address] [place] [address] 59600 Platelet mean volume (Bld) [Entitic vol] 7.6 fL Normal 7-12 [facility] Comment on above: Performed By: #### C BCA, 2-9, 00300-0, FEPR, 2276-4, 2284- 8, 76587-5, LIVR, 2731-8, 99616-6 #### [facility] ([id number]) [address], [address] [place] [address] #### VITASP, 2998-3 #### [facility] ([id number]) [address] [place] [address] 99530 Platelets (Bld) [#/Vol] 251 10*3/uL Normal 150-450 [facility] Comment on above: Performed By: #### C BCA, 2131-9, 99896-4, FEPR, 2276-4, 2284- 8, 53759-9, LIVR, 2731-8, 68690-0 #### [facility] ([id number]) [address], [address] [place] [address] #### VITASP, 2998-3 #### [facility] ([id number]) [address] [place] [address] 25364 RBC COUNT 4.03 X10E12/L Normal 3.80-5.20 [facility] Comment on above: Performed By: #### C BCA, 2132-05, 34832-8, FEPR, 2276-4, 2284- 8, 72411-9, LIVR, 2731-8, 26314-9 #### [facility] ([id number]) [address] [facility], [address] [place] [address] #### VITASP, 2998-3 #### [facility] ([id number]) [address] [place] [address] 50887 WBC (Bld) [#/Vol] 7.3 10*3/uL Normal 4.0-11.0 [facility] Comment on above: Performed By: #### C BCA, 9, 89371-8, FEPR, 2276-4, 2284- 8, 87159-9, LIVR, 2731-8, 20649-2 #### [facility] ([id number]) [address], [address] [place] [address] #### VITASP, 2998-3 #### [facility] ([id number]) [address] [place] [address] 05750 Copper [Mass/Vol]on 11-30-19 24 COPPER 81 ug/dL Normal 80-155 [facility] Comment on above: Result Comment: NOTE This test was developed and its performance characteristics determined by [facility]'s [facility] ([facility]). It has not been cleared or approved by the FDA. [facility] is regulated under CLIA as qualified to perform high-complexity testing. This test is used for clinical purposes. It should not be regarded as investigational or for research. Test Performed By: [place] [address] Ict Analyst: Maxime Weston III, M.D. CLIA #[id number] Performed By: #### C BCA, 2132-9, 10493-0, FEPR, 2276-4, 2284-8, 31837-1, LIVR, 2731-8, 49333-7 #### [facility] ([id number]) [address] [place] [address], [address] [place] [address] #### VITASP, 2998-3 #### [facility] ([id number]) [address] [place] [address] 29228 FERRITINon 11-30-2023 Ferritin [Mass/Vol] 56 ng/mL Normal 11-307 [facility] Comment on above: Performed By: #### C BCA, 2131-9, 55064-0, FEPR, 2276-4, 2284- 8, 56230-5, LIVR, 2731-8, 94430-3 #### [facility] ([id number]) [address] [place] [address], [address] [place] [address] #### VITASP, 2998-3 #### [facility] ([id number]) [address] [place] [address] 97951 Folate [Mass/Vol]on 11-30-19 24 FOLIC ACID 12.1 ng/mL Normal >5.8 [facility] Comment on above: Result Comment: NEW REFERENCE RANGE Performed By: #### C BCA, 2-9, 68656-9, FEPR, 2276-4, 2284-8, 79465-2, LIVR, 2731-8, 22169-5 #### [facility] ([id number]) [address] [place] [address], [address] [place] [address] #### VITASP, 2998-3 #### [facility] ([id number]) [address] [place] [address] 74443 IRON PROFILEon 11-30-2023 Iron [Mass/Vol] 100 ug/dL Normal 50-170 [facility] Comment on above: Performed By: #### C BCA, 2132-05, 29437-3, FEPR, 2276-4, 2284- 8, 01079-4, LIVR, 2731-8, 70818-6 #### [facility] ([id number]) [address] [place] [address], [address] [place] [address] #### VITASP, 2998-3 #### [facility] ([id number]) [address] [place] [address] 37728 IRON BINDING 340 ug/dL Normal 250-425 [facility] Comment on above: Performed By: #### C BCA, 2132-05, 32374-1, FEPR, 2276-4, 2284- 8, 34183-2, LIVR, 2731-8, 91838-8 #### [facility] ([id number]) [address] [place] [address], [address] [place] [address] #### VITASP, 2998-3 #### [facility] ([id number]) [address] [place] [address] 64178 IRON SATURATION 29 % SATURATION Normal 15-50 [facility] Comment on above: Performed By: #### C BCA, 2132-05, 10456-0, FEPR, 2276-4, 2284- 8, 92724-2, LIVR, 2731-8, 67320-0 #### [facility] ([id number]) [address] [facility], [address] [place] [address] #### VITASP, 2998-3 #### [facility] ([id number]) [address] [place] [address] 82914 LIVER PANELon 11-30-2023 Albumin [Mass/Vol] 4.0 g/dL Normal 3.2-5.3 [facility] Comment on above: Performed By: #### C BCA, 2131-9, 93162-4, FEPR, 2276-4, 2284- 8, 68624-0, LIVR, 2731-8, 78881-4 #### [facility] ([id number]) [address] [facility], [address] [place] [address] #### VITASP, 2998-3 #### [facility] ([id number]) [address] [place] [address] 19615 ALP [Catalytic activity/Vol] 73 U/L Normal 39-130 [facility] Comment on above: Performed By: #### C BCA, 2131-9, 04291-6, FEPR, 2276-4, 2284- 8, 44360-2, LIVR, 2731-8, 11453-8 #### [facility] ([id number]) [address] [facility] [facility], [address] [place] [address] #### VITASP, 2998-3 #### [facility] ([id number]) [address] [place] [address] 87769 ALT [Catalytic activity/Vol] 15 U/L Normal 0-31 [facility] Comment on above: Performed By: #### C BCA, 2131-9, 28500-5, FEPR, 2276-4, 2284- 8, 08640-0, LIVR, 2731-8, 00155-9 #### [facility] ([id number]) [address] [facility], [address] [place] [address] #### VITASP, 2998-3 #### [facility] ([id number]) [address] [place] [address] 67251 AST [Catalytic activity/Vol] 15 U/L Normal 0-41 [facility] Comment on above: Performed By: #### C BCA, 2-9, 76546-4, FEPR, 2276-4, 2284- 8, 58586-7, LIVR, 2731-8, 65606-5 #### [facility] ([id number]) [address] [facility], [address] [place] [address] #### VITASP, 2998-3 #### [facility] ([id number]) [address] [place] [address] 40985 Bilirubin [Mass/Vol] 0.6 mg/dL Normal 0.3-1.2 [facility] Comment on above: Performed By: #### C BCA, 2131-9, 23714-5, FEPR, 2276-4, 2284- 8, 01218-3, LIVR, 2731-8, 85151-3 #### [facility] ([id number]) [address] [facility], [address] [place] [address] #### VITASP, 2998-3 #### [facility] ([id number]) [address] [place] [address] 69387 Bilirubin.direct [Mass/Vol] 0.2 mg/dL Normal 0.0-0.4 [facility] Comment on above: Performed By: #### C BCA, 2-9, 38349-2, FEPR, 2276-4, 2284- 8, 81258-6, LIVR, 2731-8, 62378-5 #### [facility] ([id number]) [address], [address] [place] [address] #### VITASP, 2998-3 #### [facility] ([id number]) [address] [place] [address] 57761 Protein [Mass/Vol] 6.7 g/dL Normal 6.0-8.0 [facility] Comment on above: Performed By: #### C BCA, 2131-9, 62373-2, FEPR, 2276-4, 2284- 8, 27177-7, LIVR, 2731-8, 48969-2 #### [facility] ([id number]) [address] [place] [address], [address] [place] [address] #### VITASP, 2998-3 #### [facility] ([id number]) [address] [place] [address] 11367 Lipid 1996 panelon 4 Cholesterol [Mass/Vol] 142 mg/dL Low 150-200 [facility] Comment on above: Performed By: #### C BCA, 9, 50898-8, FEPR, 2276-4, 2284- 8, 46041-2, LIVR, 2731-8, 26284-1 #### [facility] ([id number]) [address] [place] [address], [address] [place] [address] #### VITASP, 2998-3 #### [facility] ([id number]) [address] [place] [address] Cholesterol in HDL [Mass/Vol] 75 mg/dL Normal >39 [facility] Comment on above: Result Comment: HDL <40 mg/dL - High Risk HDL > or = 40mg/dL- Desirable HDL >60 mg/dL - Negative Risk Performed By: #### C BCA, 9, 54101-4, FEPR, 2276-4, 2284-8, 51874-4, LIVR, 2731-8, 99105-9 #### [facility] ([id number]) [address] [place] [address], [address] [place] [address] #### VITASP, 2998-3 #### [facility] ([id number]) [address] [place] [address] 98865 Cholesterol in LDL [Mass/Vol] 42 mg/dL Normal <130 [facility] Comment on above: Result Comment: LDL <100 mg/dL - Desirable LDL >160 mg/dL - High Risk Performed By: #### C BCA, 2132-05, 83542-7, FEPR, 2276-4, 2284-8, 26772-2, LIVR, 2731-8, 91713-6 #### [facility] ([id number]) [address] [place] [address], [address] [place] [address] #### VITASP, 2998-3 #### [facility] ([id number]) [address] [place] [address]10 Cholesterol in VLDL [Mass/Vol] 25 mg/dL Normal 0-30 [facility] Comment on above: Performed By: #### C BCA, 2132-05, 82185-1, FEPR, 2276-4, 2284- 8, 91131-0, LIVR, 2731-8, 23074-4 #### [facility] ([id number]) [address] [place] [address], [address] [place] [address] #### VITASP, 2998-3 #### [facility] ([id number]) [address] [place] [address] 43713 CHOLESTEROL:HDL 1.9 Normal 1.0-5.0 [facility] Comment on above: Performed By: #### C BCA, 2132-05, 51878-0, FEPR, 2276-4, 2284- 8, 03960-3, LIVR, 2731-8, 50367-9 #### [facility] ([id number]) [address], [address] [place] [address] #### VITASP, 2998-3 #### [facility] ([id number]) [address] [place] [address] 46583 Triglyceride [Mass/Vol] 127 mg/dL Normal 27-150 [facility] Comment on above: Performed By: #### C BCA, 2-9, 85756-6, FEPR, 2276-4, 2284- 8, 30968-1, LIVR, 2731-8, 19914-8 #### [facility] ([id number]) [address], [address] [place] [address] #### VITASP, 2998-3 #### [facility] ([id number]) [address] [place] [address]27 Parathyrin.intact [Mass/Vol] on 11-30-2023 PTH INTACT 117 pg/mL High 12-88 [facility] Comment on above: Performed By: #### C BCA, 2-9, 78602-0, FEPR, 2276-4, 2284- 8, 95724-3, LIVR, 2731-8, 42384-5 #### [facility] ([id number]) [address], [address] [place] [address] #### VITASP, 2998-3 #### [facility] ([id number]) [address] [place] [address] 20447 Thiamine (Bld) [Mass/Vol]on 11-30-2023 THIAMIN VITAMIN B1 See Below Normal [facility] Comment on above: Result Comment: NOTE [...] developed and its performance characteristics determined by [facility] ([facility]). It has not been cleared or approved by the FDA. [facility] is regulated under CLIA as qualified to perform high-complexity testing. This test is used for clinical purposes. It should not be regarded as investigational or for research. Test Performed By: [place] [address] Ict Analyst: Maxime Weston III, M.D. CLIA #[id number] Performed By: #### C BCA, 2132-05, 17414-5, FEPR, 2276-4, 2284-8, 31121-2, LIVR, 2731-8, 06615-5 #### [facility] ([id number]) [address], [address] [place] [address] #### VITASP, 2998-3 #### [facility] ([id number]) [address] [place] [address], [place] [address] VITAMIN A(RETINOL)on 024 RETINYL PALMITATE 0.03 mg/L Normal 0.00-0.10 [facility] Comment on above: Performed By: #### C BCA, 9, 76576-1, FEPR, 2276-4, 2284- 8, 29827-4, LIVR, 2731-8, 05319-5 #### [facility] ([id number]) [address] [facility] [facility] [facility], [address] [place] [address] #### VITASP, 2998-3 #### [facility] ([id number]) [address] [place] [address] VIT A,SER/PL INTERP NORMAL Normal [facility] Comment on above: Result Comment: NOTE This test was developed and its performance characteristics determined by [employer]. It has not been cleared or approved by the US Food and Drug Administration. This test was performed in a CLIA certified laboratory and is intended for clinical purposes. Performed By: [email or web address] [address] [place] [id number] Ict Analyst: Jordin Henriquez MD, PhD CLIA Number: [id number] Performed By: #### C BCA, 2131-9, 85825-2, FEPR, 2276-4, 2284-8, 22498-7, LIVR, 2731-8, 14688-3 #### [facility] ([id number]) [address] [facility] [facility] [facility], [address] [place] [address] #### VITASP, 2998-3 #### [facility] ([id number]) [address] [place] [address] VITAMIN A(RETINOL) 0.87 mg/L Normal 0.30-1.20 [facility] Comment on above: Performed By: #### C BCA, 9, 02450-4, FEPR, 2276-4, 2284- 8, 79561-6, LIVR, 2731-8, 53224-9 #### [facility] ([id number]) [address] [facility], [address] [place] [address] #### VITASP, 2998-3 #### [facility] ([id number]) [address] [place] [address] VITAMIN B12on 11-30-2023 Cobalamin (Vitamin B12) [Mass/Vol] pg/mL High 180-914 [facility] Comment on above: Performed By: #### C BCA, 2131-9, 14838-9, FEPR, 2276-4, 2284- 8, 47500-0, LIVR, 2731-8, 02186-0 #### [facility] ([id number]) [address] [place] [address], [address] [place] [address] #### VITASP, 2998-3 #### [facility] ([id number]) [address] [place] [address] Vitamin D+Metabolites [Mass/ Vol]on 11-30-2023 VITAMIN D 25 HYD TOT 48.9 ng/mL Normal 30-100 [facility] Comment on above: Result Comment: Vitamin D status 25 [place] Vitamin D Deficiency <20 ng/mL Insufficiency 20-29 ng/mL Sufficiency 30-100 ng/mL Toxicity >100 ng/mL NOTE: A pediatric reference range has not been established by the ventilated rib fitter of this kit. The [place] [employer] recommends a Vitamin D level of = or >20ng/mL in infants and children. Performed By: #### C BCA, 2132-9, 51990-8, FEPR, 2276-4, 2284-8, 72090-5, LIVR, 2731-8, 04446-9 #### [facility] ([id number]) [address] [place] [address], [address] [place] [address] #### VITASP, 2998-3 #### [facility] ([id number]) [address] [place] [address] Zinc [Mass/Vol]on 11-30-2023 ZINC 106 ug/dL Normal 60-120 [facility] Comment on above: Result Comment: NOTE This test was developed and its performance characteristics determined by [facility] ([facility]). It has not been cleared or approved by the FDA. [facility] is regulated under CLIA as qualified to perform high-complexity testing. This test is used for clinical purposes. It should not be regarded as investigational or for research. Test Performed By: [facility] [address] [place], [place] [address] Ict Analyst: Mak Barksdale III #[id number] Performed By: #### C BCA, 2132-9, 20111-3, FEPR, 2276-4, 2284-8, 00030-0, LIVR, 2731-8, 51483-8 #### [facility] ([id number]) [address] [facility], [address] [place] [address] #### VITASP, 2998-3 #### [facility] ([id number]) [address] [facility], [place] [address] POCT Protime / INRon 11-12-2 024 INR Coag (PPP) [Relative time] 1.8 {INR} Abnormal 0.8 - 1.2 [facility] Interpretation and review of laboratory results Abnormal [facility] POCT Protime / INRon 10-02- 024 INR Coag (PPP) [Relative time] 2.2 {INR} Abnormal 0.8 - 1.2 [facility] Interpretation and review of laboratory results Abnormal [facility] Covid-19 Ambulatoryon 2019 SARS-CoV-2, KIM Not Detected Not Detected [place], [place] Comment on above: (NOTE) This nucleic acid amplification test was developed and its performance characteristics determined by [employer]. Nucleic acid amplification tests include PCR and [...] detected) result in this assay. Performed At: [facility] [employer] [place], [place] [id number] Jeff Multani MD Ph:[phone] [id number] 08-05-2020 SARS-CoV-2 Not Detected Normal Not Detected [facility] Comment on above: Result Comment: (NOT E) This nucleic acid amplification test was developed and its performance characteristics determined by [employer]. Nucleic acid amplification tests include PCR and [...] detected) result in this assay. Performed At: [facility] [address] [place] [place], [place] [id number] Jeff Multani MD Ph:[phone] Performed By: #### A COV #### [facility] [address] [place] [address] Glass Silverer: Nate Mckee MD Rehab Psych Evaluationon Rehab Psych Evaluation MR#: [id number] REHABILITATION SERVICES ( ) INPATIENT (x) OUTPATIENT Patient Name: Keila Allen Date of : 1955 Referring Physician: Javan Julien M.D. 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 Keila Allen, a 62-year-old, right-handed, White, woman, who was referred by neurologist, Dr. Javan Julien, to ascertain her present neurocognitive status in the context of white matter signal abnormalities. Mrs. Allen expresses desire to understand what, if any, impacts said lesions have had on her cognitive functioning. She is referred with Other Amnesia. HISTORY OF PRESENTING PROBLEM: Mrs. Allen presents to the current evaluation on time [...] over chronic microvascular ischemic disease. Presently, Mrs. Allen reports being recently evaluated at [facility] and was apparently informed that her pattern of lesions was inconsistent with multiple sclerosis. With regard to functioning, she notes difficulties with balance and ambulation, in addition to cognitive changes such as slowed processing speed and word-finding difficulties. CURRENT MEDICATIONS: Mrs. Allen provided a list of her current medications and they are as follows: Aspirin, acetaminophen, duloxetine, fluoxetine, magnesium, metoprolol, topiramate, warfarin, and tizanidine. PAST MEDICAL HISTORY: Mrs. Allen indicates history of atrial fibrillation, lymphedema, kidney disease, headaches, and difficulties with balance. According to Dr. Julien's clinic note, Mrs. Allen's medical history is also significant for the following: Arthritis, asthma, bladder disease, hyperlipidemia, hypertension, and iron deficiency. Mrs. Allen reports no history of loss of consciousness or seizure disorder. She also indicates her developmental history was unremarkable. PAST SURGICAL HISTORY: Mrs. Allen reports the following surgeries: Tonsillectomy, hysterectomy cholecystectomy, bilateral knee replacement, repair of a septal deviation/nasal turbinate, and a gastric sleeve surgery. PSYCHIATRIC HISTORY: Mrs. Allen reports a long-standing history of anxiety. She reports initially experiencing anxiety 25 years ago. She reports her family physician, Dr. Mary Boateng, prescribes her psychiatric medications. Mrs. Allen also reports being informed by the clinician who performed her presurgical evaluation (gastric sleeve) that she would likely benefit from psychiatric treatment for anxiety. However, she indicates she has yet to follow up on this recommendation. Mrs. Allen reports no history of suicidal or homicidal ideation. SUBSTANCE USE: Mrs. Allen reports infrequent alcohol use and no history of heavy alcohol consumption. She reports no history of illicit substance use or history of tobacco use. FAMILY MEDICAL HISTORY: Mrs. Allen reports she is adopted and knows little about her biological parents. However, she indicates her mother's cause of was breast cancer. She also reports arterial sclerosis runs on her mother's family. She reports she is unaware of her father's medical history. SOCIAL HISTORY: Mrs. Allen reports she was born in [place], [place] and raised in [place], where she presently resides with her . Mrs. Allen reports she has been to her for approximately two years (together for 40 years); she reports having no children. EDUCATIONAL HISTORY: Mrs. Allen reports she graduated from high school and completed one year of college at the [employer], where she studied education. She reports no history of special education, learning disability, or grade retention. For the purposes of this evaluation, she was credited with 13 years of education. VOCATIONAL HISTORY: Mrs. Allen reports she presently receives social security disability benefits secondary to physical disability and anxiety; she has been receiving benefits for five years. 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 CURRENT FUNCTIONING: Behavioral: Mrs. Allen reports her sleep is better over the [...] asked to describe her present mood, Mrs. Allen indicates she is easily wrapped up in negative thoughts, but is trying to be more positive. She notes she frequently feels overwhelmed, but notes she is future focused . She also reports significant stress related to providing care for her , who has been recently diagnosed with Parkinson's disease and is also blind. Cognitive: Mrs. Allen reports slowed speed of processing and word-finding difficulties over the past two years. She reports her difficulties have worsened progressively. Physical: Mrs. Allen reports her last fall was in January. She adds she now uses a walker or a cane to help prevent falls. She reports daily back pain that she rated at a 3/10 with 10 being the worst pain. Mrs. Allen reports no changes to hearing or vision. Activities of Daily Living: Mrs. Allen reports no difficulties completing activities of daily living such as dressing, bathing, eating, or toileting. She reports no difficulties managing her finances or remembering to take medications. She notes she is able to complete household duties and chores, but cites exhaustion that slows her down significantly. She is presently driving and has not incurred any accidents or near accidents. FINDINGS: Behavior: Mrs. Allen was of average height and above average [...] her nondominant left hand. Intellectual Functioning: Mrs. Allen was administered the WAIS-IV and obtained a Full Scale IQ in the high average range (NOBZ=341). She was also administered a reading recognition task designed to estimate premorbid intellectual abilities; performance was in the average range and no attenuation of intellectual abilities is identified. The remainder of obtained index scores are as follows: Verbal Comprehension Index was in the superior range (TLP=664); Perceptual Reasoning Index was in the average range (SIE=768); Working Memory Index was in the average range (HBC=368); Processing Speed Index was in the high average range (CJR=194). Visual Perception: Abilities in this domain are intact. Performance on a task of visuoconstruction, in which she was to construct blocks to match a pictured item, was in the average range. Performance on a task of visual analysis and synthesis was also in the average range. Mrs. Allen displayed a significant strength on a task of visual integration, in which she was to put together mental puzzles, and performance was in the very superior range. Together these scores combined to yield a Perceptual Reasoning Index in the average range (XIF=879). Speech and Language: Abilities in this domain are a substantial strength for Mrs. Allen, despite her self-report of word finding difficulty [...] Verbal Comprehension Index in the superior range (EJO=568). Mrs. Allen was also administered tasks of speech fluency. [...] Working Memory Index in the average range (NHQ=644). Memory: Abilities in this domain are intact and a significant strength for Mrs. Allen. Performance on a list learning task was [...] Immediate Memory Index in the superior range (ZOL=141) and a Delayed Memory Index in the very superior range (EPY=962). No attenuation of memory abilities is identified. [...] Speed Index in the high average range (OMJ=408). Higher Cognitive Functioning: Abilities in this domain are intact and consistent with IQ functioning. Performance on a task of motor speed sequencing was in the high average range. Performance on a more complex motor sequencing task involving set-shifting and cognitive flexibility was in the superior range. Affective Functioning: Mrs. Allen was administered the [place] Multiphasic Personality Vsqvcmwdk-7-BR (MMPI-2-RF). Evaluation of the validity scales raises concern about the possibility of over-reporting. Specifically, she was noted to endorse a larger than average number of physical symptoms than even individuals with severe, chronic medical conditions endorse. With caution noted, Mrs. Allen endorsed noteworthy somatic and neurologic complaints. Overall, this performance is suggestive of a heightened experience of physiological changes in response to psychological distress (somatoform tendency). TEST DATA: WAIS-IV (scaled scores): SI=13, VC=16, IN=13, BD=10, MA=9, AFFILIATE MANAGER=16, DS=12, AR=10, SS=14, CD=12 XRKQ=133 Pegs: Dominant=72 seconds; non-dominant=86 seconds TMT: A=20 second; B=42 seconds Phonemic=42 Categorical=26 WMS-IV (scaled scores): LM I=15, LM II=15, VR I=12, VR II=16 RAVLT: Total=55, Immediate=10, Delayed=13, Recognition=14 MMPI-2-RF: AMBAR=80, THD=57, BXD=46, FSB=73 IMPRESSIONS: 1. Mrs. Allen is a 62-year-old, right-handed woman who was referred for this evaluation to ascertain her present neurocognitive status in the context of recently identified white matter lesions ( demyelinating plaques related to multiple sclerosis over chronic microvascular ischemic disease ); she indicates a recent evaluation at [facility] ruled out MS. Mrs. Allen expressed interest in understanding potential cognitive weaknesses associated with said lesions. She is referred with Other Amnesia. 2. Results of this evaluation are valid and no impairment is identified. Intellectual functioning in the high average range and the majority of intellectual scores are consistent. With regard to additional tasks of cognitive functioning, tasks of memory are a substantial strength for Mrs. Allen. Specifically, delayed performance on each memory task was in the superior range. Tasks of speed of processing were also a noteworthy strength (high average) for Mrs. Allen, which argues against a diagnosis of MS. Mrs. Allen reports difficulties with word finding. However, we [...] to suggest said lesions have impacted Mrs. Allen's cognitive functioning. 3. With regard to Mrs. Sousas behavior, she was polite and pleasant throughout. Effort was excellent. 4. With regard to Mrs. Sousas emotional functioning, her self-report on a questionnaire asking about affective distress was difficult to interpret due to significant over emphasis of symptoms. She endorsed noteworthy cognitive and somatic symptoms and her response profile is consistent with somatoform tendency (a tendency to experience heightened physiological/cognitive symptoms in response to psychological stress). RECOMMENDATIONS: 1. Continue medications as prescribed. 2. We encourage Mrs. Allen to pursue counseling serves to help learn healthy ways to cope with low mood and stress. It is important for clinicians working with Mrs. Allen'perez to recognize that she may experience increases in physiological distress, as a result of increasing emotional turmoil. 3. We suggest Mrs. Allen read the following books: Say Jeana to [...] the word, like playing a game of charades. Even gesturing with your hands in a [...] down or pictured. A communication notebook, the [employer] hever in your phone, or a ticket [...] this evaluation will be provided to Mrs. Allen on 09/03/2018 at 11 a.m. ADDENDUM: So discussed. At this time, she is discharged from our care. Thank you for allowing us to participate in the care of this nice woman. If you have any questions, please call [phone]. DICTATED BY: Roel De León, PhD Neuropsychology Fellow REVIEWED BY: Electronically Signed by: Bryant Mota, PhD, ABPP 09/07/2018 12:03 P ____ Bryant Mota, PhD, ABPP Board Certified Clinical Neuropsychologist Date Dict: 08/11/2018/01:57 P/Roel De León, PhD Date Trans: 08/11/2018 02:43 P/mmo Addendum: 08/13/2018 08:14 Rangel/stalin [id number] cc: Bryant Mota, PhD, ABPP [address] [facility]. Rehab Medicine [facility] [address] Charlotte Boateng M.D. [address] [facility] [address] [facility] [address] Javan Julien M.D. [facility] [address] [facility] [address] *Mrs. Keila Allen [address] [place] [address] Normal [facility] US UROLOGY PELVIC ULTRASOUND on 01-27-2018 US UROLOGY PELVIC ULTRASOUND [facility] Department of Radiology [address] [place] [id number] Patient Name: KEILA ALLEN : 1955 Sex: F Age: Race: Other Pt. Location: [facility] Patient Status: O Ordered Date: 01/25/2018 3:00:00 PM Completed Date: 01/27/2018 03:00 PM Requesting Provider: DANIEL CAMACHO Attending Provider: DANIEL CAMACHO Report Copy To: CHARLOTTE BOATENG Signs & Symptoms: incontinence/nycturia History: order in ris Comments: Exam: US UROLOGY PELVIC ULTRASOUND US UROLOGY PELVIC ULTRASOUND 01/27/2018 3:00 PM EDT SIGNS AND SYMPTOMS: incontinence/nycturia TECHNOLOGIST COMMENTS: Incontinence QUESTION FOR THE RADIOLOGIST: PROTOCOL: COMPARISON: none FINDINGS: The bladder initially contained 46 mL's of urine with complete emptying post void. IMPRESSION: No postvoid bladder residual identified. Electronically signed by:Ludwin Daly. Transcribed by: [email or web address], User Resident: Electronically Signed by: LUDWIN DALY @ 01/27/2018 03:12 PM Normal [facility] Vital Signs Date Time Vital Sign Value Performing Clinician Facility 04-26-2025 16: Body height 165.1 cm Cornell Alva MD Work Phone: [facility] 04-26-2025 16:040 Body mass index (BMI) [Ratio] 38.27 kg/m2 Cornell Alva MD Work Phone: [facility] 04-26-2025 [id number]:14040 Body weight 104.33 kg Cornell Alva MD Work Phone: [facility] 04-26-2025 16:14-0400 Diastolic blood pressure 81 mm[Hg] Cornell Alva MD Work Phone: [facility] 04-26-2025 16:14-0400 Heart rate 65 /min Cornell Alva MD Work Phone: [facility] 04-26-2025 16:14-0400 Systolic blood pressure 148 mm[Hg] Cornell Alva MD Work Phone: [facility] 04-11-2025 15:26-0400 Body height 165.1 cm Renan Delaney MD Work Phone: [facility] 04-11-2025 15:26-0400 Body mass index (BMI) [Ratio] 36.61 kg/m2 Renan Delaney MD Work Phone: [facility] 04-11-2025 15:26-0400 Body temperature 97.5 [degF] Renan Delaney MD Work Phone: [facility] 04-11-2025 15:26-0400 Body weight 99.79 kg Renan Delaney MD Work Phone: [facility] 03-21-2025 15:07-0400 Body height 165.1 cm Renan Delaney MD Work Phone: [facility] 03-21-2025 15:07-0400 Body mass index (BMI) [Ratio] 36.61 kg/m2 Renan Delaney MD Work Phone: [facility] 03-21-2025 15:07-0400 Body temperature 96.91 [degF] Renan Delaney MD Work Phone: [facility] 03-21-2025 15:07-0400 Body weight 99.79 kg Renan Delaney MD Work Phone: [facility] 03-14-2025 12:17-0400 Body height 165.1 cm Renan Delaney MD Work Phone: [facility] 03-14-2025 12:17-0400 Body mass index (BMI) [Ratio] 36.61 kg/m2 Renan Delaney MD Work Phone: [facility] 03-14-2025 12:17-0400 Body temperature 96.8 [degF] Renan Delaney MD Work Phone: [facility] 03-14-2025 12:17-0400 Body weight 99.8 kg Renan Delaney MD Work Phone: [facility] 03-02-2025 11:29-0400 Body height 165.1 cm Renan Delaney MD Work Phone: [facility] 03-02-2025 11:29-0400 Body mass index (BMI) [Ratio] 36.61 kg/m2 Renan Delaney MD Work Phone: [facility] 03-02-2025 11:29-0400 Body temperature 97.3 [degF] Renan Delaney MD Work Phone: [facility] 03-02-2025 11:29-0400 Body weight 99.79 kg Renan Delaney MD Work Phone: [facility] 02-22-2025 10:45-0400 Body height 165.1 cm Jayleen GANT Work Phone: [facility] 02-22-2025 10:45-0400 Body mass index (BMI) [Ratio] 36.61 kg/m2 Jayleen GANT Work Phone: [facility] 02-22-2025 10:45-0400 Body weight 99.79 kg Jayleen GANT Work Phone: [facility] 01-31-2025 08:31-0400 Body height 165.1 cm Renan Delaney MD Work Phone: [facility] 01-31-2025 08:31-0400 Body mass index (BMI) [Ratio] 36.61 kg/m2 Renan Delaney MD Work Phone: [facility] 01-31-2025 08:31-0400 Body temperature 96.91 [degF] Renan Delaney MD Work Phone: [facility] 01-31-2025 08:31-0400 Body weight 99.79 kg Renan Delaney MD Work Phone: [facility] 01-18-2025 12:28-0400 Body temperature 97.7 [degF] Melissa Norton MD Work Phone: [facility] 01-18-2025 12:28-0400 Diastolic blood pressure 66 mm[Hg] Melissa Norton MD Work Phone: [facility] 01-18-2025 12:28-0400 Heart rate 66 /min Melissa Norton MD Work Phone: [facility] 01-18-2025 12:28-0400 Respiratory rate 16 /min Melissa Norton MD Work Phone: [facility] 01-18-2025 12:28-0400 SaO2% (BldA) [Mass fraction] 93 % Melissa Norton MD Work Phone: [facility] 01-18-2025 12:28-0400 Systolic blood pressure 114 mm[Hg] Melissa Norton MD Work Phone: [facility] 01-13-2025 15:33-0400 Body temperature 98.6 [degF] Melissa Norton MD Work Phone: [facility] 01-13-2025 15:33-0400 SaO2% (BldA) [Mass fraction] 94.6 % Melissa Norton MD Work Phone: [facility] [facility] 01-13-2025 14:33-0400 Body temperature 98.6 [degF] Melissa Norton MD Work Phone: [facility] 01-13-2025 14:33-0400 SaO2% (BldA) [Mass fraction] 98.6 % Melissa Norton MD Work Phone: [facility] 01-13-2025 14:17-0400 Body temperature 98.6 [degF] Melissa Norton MD Work Phone: [facility] [facility] 01-13-2025 14:17-0400 SaO2% (BldA) [Mass fraction] 99.3 % Melissa Norton MD Work Phone: [facility] [facility] 01-13-2025 11:47-0400 Body height 165.1 cm Melissa Norton MD Work Phone: [facility] 01-13-2025 11:47-0400 Body mass index (BMI) [Ratio] 36.61 kg/m2 Melissa Norton MD Work Phone: [facility] [employer] [facility] 01-13-2025 11:47-0400 Body weight 99.79 kg Melissa Norton MD Work Phone: [facility] [employer] [facility] 12-14-2024 10:13-0400 Body height 165.1 cm Divina GANT Work Phone: [facility] [employer] [facility] 12-14-2024 10:13-0400 Body mass index (BMI) [Ratio] 34.96 kg/m2 Divina GANT Work Phone: [facility] 12-14-2024 10:13-0400 Body weight 95.3 kg Divina Mejia PA Work Phone: [facility] [facility] [employer] 11-29-2024 13:27-0500 Body height 167.6 cm Reba HORVATH Work Phone: [facility] 11-29-2024 13:27-0500 Body mass index (BMI) [Ratio] 33.93 kg/m2 Reba Brown APRN-DISTRICT SERVICE MANAGER Work Phone: [facility] [employer] [facility] 11-29-2024 13:27-0500 Body weight 95.3 kg Reba Brown APRN-DISTRICT SERVICE MANAGER Work Phone: [facility] [employer] [facility] 09-02-2024 10:40-0500 Body height 165.1 cm Rafat Sepulveda MD Work Phone: [facility] 09-02-2024 10:40-0500 Body mass index (BMI) [Ratio] 32.45 kg/m2 Rafat Sepulveda MD Work Phone: [facility] 09-02-2024 10:40-0500 Body temperature 97.81 [degF] Rafat Sepulveda MD Work Phone: [facility] 09-02-2024 10:40-0500 Body weight 88.45 kg Rafat Sepulveda MD Work Phone: [facility] 07-20-2024 13:48-0400 Body height 165.1 cm Rafat Sepulveda MD Work Phone: [facility] 07-20-2024 13:48-0400 Body mass index (BMI) [Ratio] 32.45 kg/m2 Rafat Sepulveda MD Work Phone: [facility] 07-20-2024 13:48-0400 Body temperature 97 [degF] Rafat Sepulveda MD Work Phone: [facility] 07-20-2024 13:48-0400 Body weight 88.45 kg Rafat Sepulveda MD Work Phone: [facility] 06-22-2024 12:44-0400 Body height 165.1 cm Rafat Sepulveda MD Work Phone: [facility] 06-22-2024 12:44-0400 Body mass index (BMI) [Ratio] 32.45 kg/m2 Rafat Sepulveda MD Work Phone: [facility] 06-22-2024 12:44-0400 Body temperature 96.91 [degF] Rafat Sepulveda MD Work Phone: [facility] 06-22-2024 12:44-0400 Body weight 88.45 kg Rafat Sepulveda MD Work Phone: [facility] 05-18-2024 13:46-0400 Diastolic blood pressure 52 mm[Hg] Maryjane Deutsch NP Work Phone: [facility] 05-18-2024 13:46-0400 Systolic blood pressure 102 mm[Hg] Maryjane Deutsch HEAD CORRECTION OFFICER Work Phone: [facility] 05-18-2024 13:10-0400 Body mass index (BMI) [Ratio] 35.25 kg/m2 Maryjane Deutsch HEAD CORRECTION OFFICER Work Phone: [facility] 05-18-2024 13:10-0400 Body weight 96.07 kg Maryjane Deutsch HEAD CORRECTION OFFICER Work Phone: [facility] 05-18-2024 13:10-0400 Heart rate 80 /min Maryjane Deutsch HEAD CORRECTION OFFICER Work Phone: [facility] 03-23-2024 14:13-0400 Body height 167.6 cm Cornell Alva MD Work Phone: [facility] 03-23-2024 14:13-0400 Body mass index (BMI) [Ratio] 31.15 kg/m2 Cornell Alva MD Work Phone: [facility] 03-23-2024 14:13-0400 Body weight 87.54 kg Cornell Alva MD Work Phone: [facility] 03-23-2024 14:13-0400 Diastolic blood pressure 71 mm[Hg] Cornell Alva MD Work Phone: [facility] 03-23-2024 14:13-0400 Heart rate 80 /min Cornell Alva MD Work Phone: [facility] 03-23-2024 14:13-0400 Systolic blood pressure 105 mm[Hg] Cornell Alva MD Work Phone: [facility] 12-18-2023 11:00-0400 Body height 167.6 cm Nuria Rojas PA-C Work Phone: [facility] [employer] 12-18-2023 11:00-0400 Body mass index (BMI) [Ratio] 30.26 kg/m2 Nuria Gomeza PA-C Work Phone: [facility] 12-18-2023 11:00-0400 Body temperature 97 [degF] Nuria Goodwinitenga PA-C Work Phone: [facility] 12-18-2023 11:00-0400 Body weight 85 kg Nuria Hoitenga PA-C Work Phone: [facility] 12-18-2023 11:00-0400 Diastolic blood pressure 68 mm[Hg] Nuria Hoitenga PA-C Work Phone: [facility] 12-18-2023 11:00-0400 Heart rate 79 /min Nuria Hoitenga PA-C Work Phone: [facility] 12-18-2023 11:00-0400 Systolic blood pressure 105 mm[Hg] Nuria Hoitenga PA-C Work Phone: [facility] 10-28-2023 15:17-0500 Diastolic blood pressure 62 mm[Hg] Maryjane La Nena HEAD CORRECTION OFFICER Work Phone: [facility] 10-28-2023 15:17-0500 Systolic blood pressure 118 mm[Hg] Maryjane La Nena HEAD CORRECTION OFFICER Work Phone: [facility] 10-28-2023 14:41-0500 Body height 165.1 cm Maryjane La Nena HEAD CORRECTION OFFICER Work Phone: [facility] 10-28-2023 14:41-0500 Body mass index (BMI) [Ratio] 31.52 kg/m2 Maryjane La Nena HEAD CORRECTION OFFICER Work Phone: [facility] 10-28-2023 14:41-0500 Body weight 85.91 kg Maryjane La Nena HEAD CORRECTION OFFICER Work Phone: [facility] 10-28-2023 14:41-0500 Heart rate 68 /min Maryjane La Nena HEAD CORRECTION OFFICER Work Phone: [facility] 07-23-2023 15:30-0400 Body height 165.1 cm Nate Peralta Other [facility] Other 07-23-2023 15:30-0400 Body mass index (BMI) [Ratio] 30.28 kg/m2 Nate Kathryn Other [facility] Other 07-23-2023 15:30-0400 Body temperature 97.7 [degF] Nate Kathryn Other [facility] Other 07-23-2023 15:30-0400 Body weight 82.56 kg Nate Peralta Other [facility] Other 07-23-2023 15:30-0400 Diastolic blood pressure 63 mm[Hg] Nate Kathryn Other [facility] Other 07-23-2023 15:30-0400 Systolic blood pressure 111 mm[Hg] Nate Kathryn Other [facility] Other 05-27-2023 13:15-0400 Body height 165.1 cm Nate Peralta Other [facility] Other 05-27-2023 13:15-0400 Body mass index (BMI) [Ratio] 30.28 kg/m2 Nate Peralta Other [facility] Other 05-27-2023 13:15-0400 Body temperature 97.2 [degF] Nate Kathryn Other [facility] Other 05-27-2023 13:15-0400 Body weight 82.56 kg Nate Kathryn Other [facility] Other 05-27-2023 13:15-0400 Diastolic blood pressure 71 mm[Hg] Nate Peralta Other [facility] Other 05-27-2023 13:15-0400 Systolic blood pressure 125 mm[Hg] Nate Peralta Other [facility] Other 08-07-2020 11:08-0500 BP Diastolic 81 mm[Hg] Jany [place]oz- [place] , [place] 08-07-2020 11:08-0500 BP Systolic 139 mm[Hg] Jany Atari- [place] , [place] 08-07-2020 11:08-0500 Pulse (Heart Rate) 78 /min Jany GuKonoz- [place] 08-07-2020 11:08-0500 Pulse [facility]etry 100 % [facility] [place] 08-07-2020 11:08-0500 Respiratory Rate 20 /min [place] 08-07-2020 08:37-0500 Body Temperature 97.81 [degF] [place] 08-07-2020 08:37-0500 Height 167.6 cm [place] Encounters Encounter Date Encounter Type Care Provider Facility Start: 04-27-2025 End: 04-27-2025 Telephone encounter Bryant Guillen MD Other Phone: [facility] Start: 04-26-2025 End: 04-26-2025 Patient encounter procedure Cornell Alva MD Work Phone: [facility] Comment on above: Idiopathic progressi ve polyneuropathy (Primary Dx); Degenerative disc disease, cervical; Degeneration of intervertebral disc of lumbar region with discogenic back pain and lower extremity pain; Degenerative disc disease, thoracic Start: 04-26-2025 End: 04-26-2025 ambulatory CORNELL ALVA Facility:[facility] Start: 04-11-2025 End: 04-11-20[facility] Start: 04-11-2025 End: 04-11-2025 Postop follow up visit related to original px Renan Delaney MD [facility] Phone[facility] Comment on above: Status post total kn ee replacement using cement, left (Primary Dx); Periprosthetic fracture of proximal end of tibia, subsequent encounter; Obesity (BMI 35.0-39.9 without comorbidity) Start: 04-11-2025 End: 04-11-2025 ambulatory ELISE [facility] Start: 04-11-2025 End: 04-11-2025 ambulatory [facility] Start: 04-10-2025 End: 04-10-2025 ambulatory REBA K KEVIN Not Available Start: 03-21-2025 End: 03-21-2025 ambulatory RENAN Ye OHIOEMANI [facility] Start: 03-21-2025 End: 03-21-2025 Postop follow up visit related to original px Renan Delaney MD Work Phone: [facility] Comment on above: Leg wound, left, sub sequent encounter (Primary Dx); Periprosthetic fracture of proximal end of tibia, subsequent encounter; Status post revision of total replacement of left knee Start: 03-17-2025 End: 03-17-2025 Telephone encounter Bryant Guillen MD Other Phone: [facility] Start: 03-14-2025 End: 03-14-2025 ambulatory RENAN DELANEY [facility] Start: 03-14-2025 End: 03-14-2025 Postop follow up visit related to original px Renan Delaney MD Work Phone: [facility] Comment on above: Closed displaced sup racondylar fracture of distal end of left femur without intracondylar extension with routine healing, subsequent encounter (Primary Dx); Other closed fracture of proximal end of left tibia with routine healing, subsequent encounter; Open leg wound, left, initial encounter Start: 03-07-2025 End: 03-09-2025 Telephone encounter Renan Delaney MD Work Phone: [facility] Start: 03-02-2025 End: 03-02-2025 Postop follow up visit related to original px Renan Delaney MD Work Phone: [facility]/Trauma [facility] Adult Reconstruction Comment on above: Open leg wound, left , initial encounter (Primary Dx); Closed displaced supracondylar fracture of distal end of left femur without intracondylar extension with routine healing, subsequent encounter; Other closed fracture of proximal end of left tibia with routine healing, subsequent encounter Start: 03-02-2025 End: 03-02-2025 ambulatory RENAN DELANEY [facility] Start: 02-22-2025 End: 02-22-2025 Office outpatient visit 25 minutes Jany Smith MD Work Phone: [facility] Gen[facility]Ur[facility] Sur[facility] Comment on above: Urge incontinence (P rimary Dx); Urinary tract infection without hematuria, site unspecified Start: 02-22-2025 End: 02-22-2025 ambulatory JAYLEEN [facility] Start: 01-31-2025 End: 01-31-2025 Postop follow up visit related to original px Renan Delaney MD Work Phone: [facility]/Trauma [facility] Adult Reconstruction Comment on above: Closed fracture of p roximal end of left tibia with routine healing, unspecified fracture morphology, subsequent encounter (Primary Dx); Periprosthetic fracture of proximal end of tibia, subsequent encounter; Pain of left calf; Anemia, unspecified type; Age-related osteoporosis with current pathological fracture of left lower leg with routine healing; Age-related osteoporosis without current pathological fracture Start: 01-31-2025 End: 01-31-2025 Orders Only Irlanda HORVATH Work [facility]: [facility] Comment on above: Iron deficiency anem ia secondary to blood loss (chronic) (Primary Dx) Start: 01-20-2025 End: 01-20-2025 Orders Only Diandra Low PA-C Work Phone: [facility]/Trauma [facility] Adult Reconstruction Comment on above: Periprosthetic fract ure of proximal end of tibia, initial encounter (Primary Dx); 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 Start: 01-19-2025 End: 01-19-2025 Follow-up encounter Marci Montiel [facility] Work Phone: [facility] Pharmacy Medication Management Comment on above: 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 (Primary Dx) Start: 01-18-2025 End: 01-18-2025 ambulatory RENAN THRASHER [facility] Start: 01-18-2025 End: 01-18-2025 Telephone encounter [facility] Start: 01-15-2025 End: 01-15-2025 Telephone encounter Vickie good Comment on above: Consult (Blood manag ement) Critical Lab Value Start: 01-13-2025 End: 01-18-2025 Evaluation and management of inpatient REINALDO ESTES [facility] Start: 01-13-2025 End: 01-18-2025 [facility] Start: 01-12-2025 End: 01-18-2025 ambulatory RICHY Ephraim LINDSAY [facility] Start: 01-12-2025 End: 01-18-2025 ambulatory [facility] Start: 01-12-2025 End: 01-18-2025 Emergency department patient visit [facility] Start: 01-12-2025 End: 01-18-2025 Emergency department patient visit WAQARANDREY NICHOLSGisel [facility] Start: 01-12-2025 Encounter for preprocedural cardiovascular examination MELISSA NORTON [facility] Start: 01-12-2025 End: 01-18-2025 Evaluation and management of inpatient Richard R Naomi PEREZ Work Phone: [facility] GEN 7 Acute Comment on above: Closed fracture of p roximal end of left tibia, unspecified fracture morphology, initial encounter (Primary Dx); JUDE (acute kidney injury) Start: 01-12-2025 End: 01-12-2025 Telephone encounter Eugenia good Comment on above: Post op clearance Start: 01-12-2025 End: 01-18-2025 ambulatory RICHY MONTOYA [facility] Start: 01-12-2025 End: 01-18-2025 Emergency department patient visit WAQAR ROBERTSON [facility] Start: 01-10-2025 End: 01-10-2025 Follow-up encounter [facility] Medication [facility] Work Phone: [facility] Medication [facility] Comment on above: assisted current us e of 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 (Primary Dx) Start: 01-06-2025 End: 01-06-2025 Follow-up encounter [facility] Medication Management Work Phone: [facility] Medication Management Comment on above: 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 (Primary Dx) Start: 12-30-2024 End: 12-30-2024 Follow-up encounter [facility] Medication Management Work Phone: [facility] Medication Management Comment on above: 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 (Primary Dx) Start: 12-26-2024 End: 12-26-2024 Follow-up encounter [facility] Medication Management Work Phone: [facility] Medication Management Comment on above: 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 (Primary Dx) Start: 12-14-2024 End: 12-14-2024 Postop follow up visit related to original px Divina GANT Work Phone: [facility] Comment on above: Status post revision of total replacement of left knee (Primary Dx); 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 ([facility]) Start: 12-14-2024 End: 12-14-2024 ambulatory NAFISA NAVARRO [place] Start: 12-06-2024 End: 12-06-2024 Telephone encounter Marie Laughlin [facility] Orth[facility]/Trauma [facility] Adult Reconstruction Start: 11-30-2024 End: 11-30-2024 Telephone encounter Shree Ji CMA [facility] Start: 11-29-2024 End: 11-29-2024 Office outpatient visit 25 minutes Reba Brown APRN-DISTRICT SERVICE MANAGER Work Phone: [facility] Comment on above: Age-related osteopor osis without current pathological fracture (Primary Dx) Start: 11-29-2024 End: 11-29-2024 ambulatory REBA Mcclure BROWN [facility] Start: 11-23-2024 End: 11-23-2024 Follow-up encounter Marci Montiel [facility] Work Phone: [facility] Medication Management Comment on above: 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 (Primary Dx) Start: 11-22-2024 End: 11-22-2024 Evaluation and management of inpatient [facility] Start: 11-17-2024 End: 11-22-2024 Evaluation and management of inpatient [facility] Start: 11-16-2024 End: 11-22-2024 Emergency department patient visit VASILE LOPEZ [facility] Start: 11-16-2024 Encounter for other preprocedural examination [facility] Start: 11-16-2024 End: 11-22-2024 Evaluation and management of inpatient [facility] Start: 11-16-2024 End: 11-16-2024 Orders Only Jerzy Dietrich RN Work Phone: [facility] Comment on above: Mechanical failure o f prosthetic left knee joint ([facility]-H[facility]) (Primary Dx) Start: 11-15-2024 End: 11-22-2024 Emergency department patient visit [facility] Start: 11-15-2024 End: 11-15-2024 Telephone encounter Marie Miner [facility] Start: 11-14-2024 End: 11-14-2024 Follow-up encounter [facility] Medication Management Work Phone: [facility] Medication Management Comment on above: assisted current us e of 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 (Primary Dx) Start: 11-10-2024 End: 11-10-2024 Follow-up encounter [facility] Medication Management Work Phone: [facility] Medication Management Comment on above: 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 (Primary Dx) Start: 11-09-2024 End: 11-09-2024 Telephone encounter [facility] Comment on above: Physical Therapy Start: 11-08-2024 End: 11-08-2024 Follow-up encounter [facility] Medication Management Work Phone: [facility] Medication Management Comment on above: 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 (Primary Dx) Start: 11-07-2024 End: 11-07-2024 Telephone encounter Rafat Sepulveda MD Work Phone: [facility] Start: 11-03-2024 End: 11-03-2024 Telephone encounter Reema Mel[facility]dez [facility] Start: 10-14-2024 End: 10-14-2024 ambulatory [facility] Start: 10-03-2024 End: 10-03-2024 Telephone encounter Aviva Noriega CMA [facility]-B[facility] Comment on above: Appointment (6 year follow up visit) Start: 09-30-2024 End: 09-30-2024 ambulatory [facility] Start: 09-02-2024 End: 09-02-2024 ambulatory RAFAT SEPULVEDA [facility] Start: 09-02-2024 End: 09-02-2024 Office outpatient visit 15 minutes Rafat Sepulveda MD Work Phone: [facility] Comment on above: Closed displaced sup racondylar fracture of distal end of left femur without intracondylar extension with routine healing, subsequent encounter Start: 08-31-2024 End: 08-31-2024 Orders Only Nedra Sanchez RN [facility] Comment on above: Closed displaced sup racondylar fracture of distal end of left femur without intracondylar extension with routine healing, subsequent encounter Start: 08-21-2024 End: 08-22-2024 Refill Marie Mann DO Work Phone: [facility] Comment on above: 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) (CMS/HCC); Primary hypertension (CMS/HCC) Start: 07-20-2024 End: 07-20-2024 Postop follow up visit related to original px Rafat Sepulveda MD Work Phone: [facility] Orthopedics/Trauma and Adult Reconstruction Comment on above: Closed displaced sup racondylar fracture of distal end of left femur without intracondylar extension with routine healing, subsequent encounter (Primary Dx) Start: 07-20-2024 End: 07-20-2024 ambulatory MADELEINE Murphy [facility] Start: 07-06-2024 End: 07-06-2024 Telephone encounter Marie Laughlin [facility] Orthopedics/Trauma and Adult Reconstruction Start: 06-22-2024 End: 06-22-2024 Postop follow up visit related to original px Rafat Sepulveda MD Work Phone: [facility] Orthopedics/Trauma and Adult Reconstruction Comment on above: Closed displaced sup racondylar fracture of distal end of left femur without intracondylar extension with routine healing, subsequent encounter (Primary Dx); Age-related osteoporosis without current pathological fracture Start: 06-22-2024 End: 06-22-2024 ambulatory [place] Ephraim SEPULVEDA [facility] Start: 06-13-2024 End: 06-13-2024 Follow-up encounter Gabriela Tomlinson [facility] Work Phone: [facility] Med[facility] Therapy Management Comment on above: 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 (Primary Dx) Start: 06-13-2024 End: 06-13-2024 ambulatory ALANNAJOSE ANDERSON [facility] Start: 06-11-2024 End: 06-13-2024 Refill Jany Smith MD Work Phone: [facility] Start: 06-10-2024 End: 06-10-2024 Evaluation and management of inpatient BRYANT GUILLEN [facility] Start: 06-07-2024 End: 06-07-2024 Telephone encounter [facility] Work Phone: [facility] Start: 06-06-2024 End: 06-06-2024 Telephone encounter Bryant Guillen Work Phone: [facility] Start: 06-06-2024 End: 06-10-2024 Evaluation and management of inpatient DANIEL BURCH [facility] Start: 06-06-2024 End: 06-06-2024 ambulatory [facility] Start: 06-03-2024 End: 06-10-2024 Evaluation and management of inpatient MICAH [facility] Start: 06-03-2024 [facility] Start: 06-03-2024 End: 06-10-2024 Evaluation and management of inpatient BRYANT Pitts [facility] Start: 06-02-2024 End: 06-03-2024 Emergency department patient visit [facility] Start: 06-02-2024 End: 06-03-2024 Emergency department patient visit RADHA HAMLIN [facility] Start: 06-02-2024 End: 06-02-2024 Telephone encounter Georges Estes [facility] Work Phone: [facility] Start: 05-25-2024 End: 05-25-2024 Telephone encounter [employer] [facility] Work Phone: [facility] Start: 05-25-2024 End: 05-29-2024 ambulatory [facility] Start: 05-20-2024 End: 05-29-2024 ambulatory [facility] Start: 05-19-2024 Preoperative state Maryjane motley NP Work Phone: [facility] Start: 05-19-2024 End: 06-01-2024 Telephone encounter Roel GANT Work Phone: [facility] FB ORTHOPAEDICS Start: 05-18-2024 End: 05-18-2024 Bamboo flowsheet Maryjane Deutsch HEAD CORRECTION OFFICER Work Phone: [facility] Start: 05-18-2024 End: 05-18-2024 Bamboo flowsheet Maryjane Deutsch HEAD CORRECTION OFFICER Work Phone: [facility] Start: 05-18-2024 End: 05-18-2024 Office outpatient visit 40 minutes Maryjane Deutsch NP Work Phone: [facility] Comment on above: Essential hypertensi on, benign (CMS/HCC) (Primary Dx); Hypertensive heart and chronic kidney disease without heart failure, with stage 1 through stage 4 chronic kidney disease, or unspecified chronic kidney disease (CMS/HCC); Stage 3b chronic kidney disease (HCC) (CMS/HCC); Dyslipidemia (CMS/HCC); Hyperparathyroidism, secondary renal (CMS/HCC); Age-related osteoporosis without current pathological fracture (CMS/HCC); Atrial fibrillation, unspecified type (CMS/HCC); Major depressive disorder, single episode, moderate (HCC) (CMS/HCC); Iron deficiency anemia secondary to inadequate dietary iron intake; Gait disorder; Gastrointestinal hemorrhage, unspecified gastrointestinal hemorrhage type; Prolonged Q-T interval on ECG; Preoperative clearance; Left shoulder pain, unspecified chronicity; Depression with anxiety; Headache syndrome; Insomnia, unspecified type; White matter disease; LVH (left ventricular hypertrophy); First degree AV block; Status post bariatric surgery; Presence of artificial knee joint, bilateral; History of borderline diabetes mellitus; Dental disease; Edema, unspecified type; Impairment of balance Start: 05-18-2024 End: 05-18-2024 Preoperative state Maryjane Deutsch NP Work Phone: [facility] Start: 05-18-2024 End: 05-18-2024 ambulatory MARYJANE DEUTSCH Not Available Start: 05-17-2024 End: 05-29-2024 ambulatory [facility] Start: 05-13-2024 End: 05-13-2024 Office outpatient visit 25 minutes Jr. Ruben Linares DO Work Phone: [facility] Comment on above: Internal derangement of left shoulder (Primary Dx) Start: 05-13-2024 End: 05-13-2024 ambulatory RUBEN BULLOCK Not Available Start: 05-12-2024 Orders Only Cornell Pineda Work Phone: [facility] Comment on above: Idiopathic progressi ve polyneuropathy (Primary Dx) Start: 05-05-2024 End: 05-05-2024 ambulatory JACQUIE BROOKS Not Available Start: 05-04-2024 End: 05-04-2024 ambulatory CORNELL ALVA Facility:[facility] Start: 05-04-2024 End: 05-04-2024 Patient encounter procedure Emg 2 Neur [facility] Rej (Max Weight: 400) Work Phone: Neurology Comment on above: EMG Start: 05-03-2024 End: 05-03-2024 ambulatory STEPHAN MORSE Not Available Start: 05-02-2024 End: 05-02-2024 ambulatory JAVAN JULIEN Facility:[facility] Start: 05-02-2024 End: 05-02-2024 Subsequent hospital visit by physician Emily Wagner [facility] (7t) Work Phone: Radiology Comment on above: Demyelinating diseas e of central nervous system (HCC) [G37.9] Start: 04-28-2024 End: 04-28-2024 ambulatory STEPHAN MORSE Not Available Start: 04-21-2024 End: 04-21-2024 Follow-up encounter [facility] Mtm 1 [facility] Med[facility] Therapy Management Comment on above: Atrial fibrillation, unspecified type (CMS-HCC) (Primary Dx) Start: 04-21-2024 End: 04-21-2024 ambulatory [facility] Start: 04-20-2024 End: 04-20-2024 ambulatory MARYJANE DEUTSCH Not Available Start: 04-20-2024 End: 04-20-2024 ambulatory MARYJANEBARRIE DEUTSCH Not Available Start: 04-19-2024 End: 04-19-2024 ambulatory Emg Weight:400) Work Phone: Neurology Comment on above: No Show Start: 04-19-2024 End: 04-19-2024 Patient encounter procedure Emg 1 Neur [facility] Naldo (Max Weight:400) Work Phone: Neurology Start: 04-17-2024 End: 04-18-2024 Emergency department patient visit RADHA HAMLIN [facility] Start: 04-15-2024 End: 04-19-2024 Telephone encounter [facility] Work Phone: [facility] Medication Therapy Management Start: 04-15-2024 End: 04-28-2024 ambulatory [facility] Start: 04-06-2024 End: 04-06-2024 ambulatory JOBST [facility] Start: 04-06-2024 End: 04-06-2024 Follow-up encounter [facility] Natalie Mtm 2 [facility] Medication Therapy Management Comment on above: 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 (Primary Dx) Start: 03-30-2024 End: 04-28-2024 ambulatory [facility] Start: 03-25-2024 End: 03-28-2024 ambulatory [facility] Start: 03-23-2024 End: 03-23-2024 Patient encounter procedure Cornell Alva MD Work Phone: [facility] Comment on above: Demyelinating diseas e of central nervous system (HCC) (Primary Dx); Cervical spondylosis with myelopathy; Ataxia Start: 03-22-2024 End: 03-28-2024 ambulatory JOBST [facility] Start: 02-23-2024 End: 02-23-2024 ambulatory [facility] Start: 02-23-2024 End: 02-23-2024 Follow-up encounter [facility] 1 [facility] Med[facility] Comment on above: assisted current us e of 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 (Primary Dx); Atrial fibrillation, unspecified type ([facility]-HCC) Start: 02-19-2024 End: 02-27-2024 ambulatory [facility] Start: 02-15-2024 End: 02-15-2024 ambulatory DANIEL CAMACHO [facility] Start: 02-03-2024 End: 02-03-2024 ambulatory [facility] Start: 02-03-2024 End: 02-03-2024 Follow-up encounter [facility] Mtm 1 [facility] Medication Therapy Management Comment on above: assisted current us e of 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 (Primary Dx) Start: 02-03-2024 End: 02-27-2024 ambulatory [facility] Start: 02-02-2024 End: 02-27-2024 ambulatory JOBST [facility] Start: 01-27-2024 End: 01-27-2024 Telephone encounter Natalie Garnica MA [facility] Medication Therapy [facility] Start: 01-27-2024 End: 02-27-2024 ambulatory JOBST [facility] Start: 01-13-2024 End: 01-13-2024 Orders Only Eamon Phan [facility] Work Phone: [facility] Medication Therapy Management Comment on above: assisted current us e of 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; Atrial fibrillation, unspecified type ([facility]-HCC) assisted current us e of 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 (Primary Dx) Start: 01-13-2024 End: 01-27-2024 ambulatory [facility] Start: 01-08-2024 End: 01-27-2024 ambulatory [facility] Start: 01-05-2024 End: 01-05-2024 Documentation procedure Lissa Montes [facility] Work Phone: [facility] Therapy [facility] Start: 12-31-2023 End: 01-27-2024 ambulatory JOBST [facility] Start: 12-29-2023 End: 01-27-2024 [facility] Start: 12-24-2023 End: 12-28-2023 [facility] Start: 12-18-2023 End: 12-18-2023 Office outpatient visit 15 minutes Ivan Cleary MD Work Phone: [facility] Comment on above: Vitreous floaters of both eyes (Primary Dx); Posterior vitreous detachment of both eyes; Dry eyes, bilateral; Nuclear sclerotic cataract of both eyes; Macular drusen, bilateral Start: 12-18-2023 End: 12-18-2023 Office outpatient visit 25 minutes Nuria Rojas PA-C Work Phone: [facility]-B[facility] Comment on above: History of sleeve ga strectomy (Primary Dx); Postsurgical malabsorption; Malnutrition following gastrointestinal surgery Start: 12-10-2023 End: 12-10-2023 [facility] Start: 12-10-2023 End: 12-10-2023 Follow-up encounter [facility] Mtm 1 [facility] Medication Therapy Management Comment on above: assisted current us e of 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 (Primary Dx) Start: 11-30-2023 End: 11-30-2023 ambulatory MARCI SOUZA [facility] Start: 11-12-2023 End: 11-12-2023 Follow-up encounter 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 (Primary Dx) Start: 11-11-2023 Telephone encounter Jacquei Sheldon Work Phone: [facility] Start: 11-04-2023 Telephone encounter Natalie Garnica MA [facility] Medication Therapy Management Start: 10-28-2023 End: 10-28-2023 Office outpatient visit 40 minutes Maryjane Deutsch NP Work Phone: [facility] Comment on above: First degree AV bloc k (Primary Dx); Chronic atrial fibrillation, unspecified (I48.20); Sacroiliitis, not elsewhere classified (M46.1); Major depressive disorder, single episode, moderate (F32.1); Other giant cell arteritis (M31.6); Atherosclerosis of aorta (I70.0); Other secondary hypertension (CMS/HCC); Essential hypertension, benign ([facility]/HCC); LVH (left ventricular hypertrophy); Prolonged Q-T interval on ECG; Stage 3b chronic kidney disease (HCC) (CMS/HCC); Hyperparathyroidism, secondary renal (CMS/HCC); Iron deficiency anemia secondary to inadequate dietary iron intake; History of borderline diabetes mellitus; Dyslipidemia (CMS/HCC); History of sleeve gastrectomy; Lymphedema; Recurrent major depression in partial remission (HCC) ([facility]); Urinary urgency; White matter abnormality on MRI of brain; Tinnitus, unspecified laterality; Repeated falls; Tear film insufficiency, unspecified laterality; Nuclear sclerotic cataract of both eyes; Posterior vitreous detachment of right eye; Age-related osteoporosis without current pathological fracture ([facility]); Primary lymphedema; Degeneration of cervical intervertebral disc; Neurogenic claudication; Bilateral shoulder pain, unspecified chronicity; Congenital spondylolisthesis; Disc disorder; Idiopathic scoliosis and kyphoscoliosis; Inflammation of sacroiliac joint ([facility]/HCC); Presence of artificial knee joint, bilateral; Microalbuminuria; Urge incontinence; Bladder disorder; Status post bariatric surgery; Atrial fibrillation, unspecified type ([facility]); Hypertensive heart and chronic kidney disease without heart failure, with stage 1 through stage 4 chronic kidney disease, or unspecified chronic kidney disease ([facility]/HCC); Gastroesophageal reflux disease, unspecified whether esophagitis present; Decreased hearing, unspecified laterality; Encounter to establish care; Diarrhea, unspecified type; Visual impairment; Vitreous floaters of right eye; 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; Gait disorder Start: 10-27-2023 Orders Only Keila Botello Work Phone: [facility] Comment on above: History of sleeve ga strectomy (Primary Dx); Postsurgical malabsorption; Malnutrition following gastrointestinal surgery; History of hyperlipidemia; History of anemia Start: 10-21-2023 Telephone encounter Aviva Noriega [facility] Comment on above: Appointment (5 year follow up visit) Start: 10-02-2023 End: 10-02-2023 Follow-up encounter [facility] 1 [facility] Medication Therapy Management Comment on above: 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 (Primary Dx) Start: 07-23-2023 End: 07-23-2023 ambulatory Nate Peralta Other [facility] Other Start: 07-23-2023 Office outpatient vi sit 25 minutes Nate Peralta [facility] Start: 05-27-2023 End: 05-27-2023 ambulatory Nate Peralta Other [facility] Other Start: 05-27-2023 Office outpatient ne w 45 minutes Nate Peralta [facility] Start: 08-07-2020 End: 08-07-2020 Patient encounter procedure JANY SANTIZO [facility] Start: 08-07-2020 End: 08-07-2020 Subsequent hospital visit by physician Jany Santizo Work Phone: [facility] Start: 08-03-2020 End: 08-08-2020 Patient encounter procedure CHARLOTTE BOATENG [facility] Start: 08-03-2020 End: 08-07-2020 Subsequent hospital visit by physician Flip Cisneros Rm 4 [facility] PRE-ADMIT TESTING Start: 01-03-2019 End: 01-04-2019 Patient encounter procedure DEFAULT PHYSICIAN Facility:[facility] Start: 08-28-2018 End: 09-28-2018 Patient encounter procedure VINICIUSD MANJINDER Facility:[facility] Start: 08-11-2018 End: 08-28-2018 Patient encounter procedure KHALED MANJINDER Facility:[facility] Start: 01-27-2018 End: 01-28-2018 Patient encounter procedure CHARLOTTE BOATENG Facility:[facility] Start: 01-15-2018 End: 01-16-2018 Patient encounter procedure PROVIDER UNKNOWN Facility:[facility] Procedures Date Procedure Procedure Detail Performing Clinician Start: 04-10-2025 Mammography Renan estrada MD Work Phone: Start: 03-02-2025 Culture bacterial an y source anaerobic iso&id Madeleine Kelly PA-C Work Phone: Start: 02-22-2025 Follow-up visit Follow-up ALEX GAUTAM Start: 01-18-2025 Basic metabolic pane l calcium total Melissa Norton MD Work Phone: Start: 01-17-2025 Basic metabolic pane l calcium total Melissa Notron MD Work Phone: Start: 01-17-2025 Prothrombin time Raman Li MD Work Phone: Start: 01-17-2025 Compatibility each u nit electronic Caren Iglesias MD Work Phone: Start: 01-16-2025 BIPAP/CPAP/AUTOPAP Richy Montoya DO Work Phone: Start: 01-16-2025 Assay of zinc Irlanda Vilc heswapnil LEAD PROCESS ENGINEER-DISTRICT SERVICE MANAGER Work Phone: Start: 01-16-2025 Basic metabolic pane l calcium total Alysha Li MD Work Phone: Start: 01-16-2025 Blood count hematocrit Javier Baeza PA-C Work Phone: Start: 01-15-2025 BIPAP/CPAP/AUTOPAP Richy Montoya DO Work Phone: Start: 01-15-2025 Blood count hemoglobin Socorro Ramirez MD Work Phone: Start: 01-15-2025 End: 01-15-2025 TRANSFUSE RED BLOOD CELLS Socorro Ramirez MD Work Phone: Start: 01-15-2025 Blood count hematocrit Socorro Ramirez MD Work Phone: Start: 01-15-2025 Blood count reticulo cyte automated Alysha Li MD Work Phone: Start: 01-15-2025 Basic metabolic pane l calcium total Alysha Li MD Work Phone: Start: 01-14-2025 Culture bacterial quanttative colony count urine Renan Delaney MD Work Phone: Start: 01-14-2025 Prothrombin time Raman Li MD Work Phone: Start: 01-14-2025 Basic metabolic pane l calcium total Alysha Li MD Work Phone: Start: 01-13-2025 Radiologic examinati on tibia & fibula 2 views Reinaldo Estes MD Work Phone: Start: 01-13-2025 Fluoroscopy up to 1 hour physician/qhp time Renan Delaney MD Work Phone: Start: 01-13-2025 End: 01-13-2025 Blood gases any combination ph pco2 po2 co2 hco3 Richard R Naomi DO Work Phone: Start: 01-13-2025 Calcium ionized Richard R Naomi DO Work Phone: Start: 01-13-2025 End: 01-13-2025 Optx tibial shft fx w/plate/screws w/wo cerclage Renan Delaney MD Work Phone: Start: 01-13-2025 RESPIRATORY CARE CONSULT Richy Montoya DO Work Phone: Start: 01-13-2025 Basic metabolic pane l calcium total Richy Montoya DO Work Phone: Start: 01-13-2025 Adult depression screening assessment Vickie Cam Start: 01-13-2025 Antibody screen Melissa vega MD Work Phone: Start: 01-12-2025 BIPAP/CPAP/AUTOPAP Richy Montoya DO Work Phone: Start: 01-12-2025 Blood typing serolog ic abo Caren Iglesias MD Work Phone: Start: 01-12-2025 Radiologic exam ches t single view Richy Montoya DO Work Phone: Start: 01-12-2025 Ecg routine ecg w/le ast 12 lds trcg only w/o i&r Richy Montoya DO Work Phone: Start: 01-12-2025 Ct lower extremity w /o contrast material Caren Iglesias MD Work Phone: Start: 01-12-2025 End: 01-12-2025 Radex clavicle complete Caren Pineda Work Phone: Start: 01-12-2025 End: 01-12-2025 3d rendering w/interp & postprocess supervision Waqar Robertson LEAD PROCESS ENGINEER-DISTRICT SERVICE MANAGER Work Phone: Start: 01-12-2025 Basic metabolic pane l calcium total Waqar Nicholsgisel LEAD PROCESS ENGINEER-DISTRICT SERVICE MANAGER Work Phone: Start: 01-10-2025 Prothrombin time [facility] Work Phone: Start: 01-06-2025 Prothrombin time Not In System Ref Prov Start: 12-30-2024 Prothrombin time [facility] Work Phone: Start: 12-26-2024 Prothrombin time [facility] Work Phone: Start: 11-17-2024 Adult depression screening assessment Marci Montiel [facility] Work Phone: Start: 11-14-2024 Prothrombin time [facility] Work Phone: Start: 11-10-2024 Prothrombin time Not In System Ref Prov Start: 11-07-2024 Prothrombin time [facility] Work Phone: Start: 07-20-2024 Follow-up visit Follow-up RAFAT SEPULVEDA Start: 06-03-2024 Adult depression screening assessment [employer] Work Phone: Start: 05-04-2024 Nerve conduction nadja dies 5-6 studies Cornell Alva MD Work Phone: Start: 05-02-2024 Mri brain brain stem w/o w/contrast material Cornell Alva MD Work Phone: Start: 04-21-2024 Prothrombin time [employer] Work Phone: Start: 04-06-2024 Prothrombin time [facility] Work Phone: Start: 02-23-2024 Prothrombin time [employer] Work Phone: Start: 02-09-2024 Mammography [facility] 1 Start: 02-03-2024 Prothrombin time [facility] Work Phone: Start: 01-13-2024 Prothrombin time [facility] Work Phone: Start: 12-10-2023 Prothrombin time [facility] Work Phone: Start: 11-30-2023 Lipid 1996 panel - S marta or Plasma Cornell Alva MD Work Phone: Start: 11-12-2023 Prothrombin time [facility] Work Phone: Start: 10-19-2023 End: 10-19-2023 Ophth medical xm&eval comprhnsv estab pt 1/> Hyperopia with astigmatism and presbyopia, bilateral Guido Pipe OD Work Phone: Comment on above: Hyperopia with astig matism and presbyopia, bilateral (Primary Dx) Start: 10-02-2023 Prothrombin time [facility] Work Phone: Start: 08-09-2023 Adult depression screening assessment [facility] 1 Start: 10-07-2022 Colonoscopy [facility] 1 Start: 08-07-2020 DISCHARGE PATIENT JANY SANTIZO Start: 08-03-2020 COVID-19 AMBULATORY ROS LEATHARIE OSOWIK Start: 08-03-2020 COVID-19 AMBULATORY Filemon s E Nikolas Work Phone: Start: 08-03-2020 COVID-19 CHARLOTTE OSOWIK Start: 11-08-2019 Mammography Maryjane Deutsch NP Work Phone: Start: 10-28-2019 Mammography [facility] 1 Plan of Treatment Date Care Activity Detail Author Start: 10-07-2032 Screening for malignant neoplasm of colon [facility] Start: 11-29-2028 Lipid panel Lipid Screening [facility] Start: 01-19-2028 Diabetes Screening Diabetes Screening [facility] Start: 02-14-2027 Diabetes Screening Diabetes Screening [facility] Start: 04-11-2026 Adult BMI Screening Adult BMI Screening [facility] Start: 04-10-2026 Screening for malignant neoplasm of breast [facility] Start: 04-02-2026 Tobacco Screening Tobacco Screening [facility] Start: 03-21-2026 Adult BMI Screening Adult BMI Screening [facility] Start: 03-21-2026 Tobacco Screening Tobacco Screening [facility] Start: 03-14-2026 Adult BMI Screening Adult BMI Screening [facility] Start: 03-14-2026 Tobacco Screening Tobacco Screening [facility] Start: 03-04-2026 Tobacco Screening Tobacco Screening [facility] Start: 03-02-2026 Adult BMI Screening Adult BMI Screening [facility] Start: 03-02-2026 Tobacco Screening Tobacco Screening [facility] Start: 02-22-2026 Adult BMI Screening Adult BMI Screening [facility] Start: 02-22-2026 Tobacco Screening Tobacco Screening [facility] Start: 01-31-2026 Adult BMI Screening Adult BMI Screening [facility] Start: 01-31-2026 Tobacco Screening Tobacco Screening [facility] Start: 01-18-2026 Creatinine measurement Serum Creatinine [facility] Start: 01-14-2026 Tobacco Screening Tobacco Screening [facility] Start: 01-13-2026 Adult BMI Screening Adult BMI Screening [facility] Start: 01-13-2026 Depression Screening Depression Screening [facility] Start: 01-12-2026 Tobacco Screening Tobacco Screening [facility] Start: 12-14-2025 Adult BMI Screening Adult BMI Screening [facility] Start: 12-14-2025 Tobacco Screening Tobacco Screening [facility] Start: 11-29-2025 Adult BMI Screening Adult BMI Screening [facility] Start: 11-29-2025 Tobacco Screening Tobacco Screening [facility] Start: 11-17-2025 Adult BMI Screening Adult BMI Screening [facility] Start: 11-17-2025 Depression Screening Depression Screening [facility] Start: 11-17-2025 Tobacco Screening Tobacco Screening [facility] Start: 11-16-2025 Tobacco Screening Tobacco Screening [facility] Start: 11-15-2025 Adult BMI Screening Adult BMI Screening [facility] Start: 11-15-2025 Tobacco Screening Tobacco Screening [facility] Start: 09-02-2025 Adult BMI Screening Adult BMI Screening [facility] Start: 09-02-2025 Tobacco Screening Tobacco Screening [facility] Start: 07-25-2025 Tobacco Screening Tobacco Screening [facility] Start: 07-20-2025 Adult BMI Screening Adult BMI Screening [facility] Start: 06-23-2025 Tobacco Screening Tobacco Screening [facility] Start: 06-22-2025 Adult BMI Screening Adult BMI Screening [facility] Start: 06-22-2025 Tobacco Screening Tobacco Screening [facility] Start: 06-20-2025 End: 06-20-2025 Patient encounter procedure 06/20/2025 12:30 PM EDT Office Visit [facility] [address] [place] [address] [address] [place] [address] Renan Delaney MD [address] [place] [address], [address] [place] [address] [facility] Start: 06-03-2025 Adult BMI Screening Adult BMI Screening [facility] Start: 06-03-2025 Depression Screening Depression Screening [facility] Start: 06-03-2025 Tobacco Screening Tobacco Screening [facility] Start: 06-02-2025 Adult BMI Screening Adult BMI Screening [facility] Start: 06-02-2025 Tobacco Screening Tobacco Screening [facility] Start: 05-29-2025 Influenza vaccination [facility] Start: 05-22-2025 End: 05-22-2025 Patient encounter procedure 05/22/2025 3:30 PM EDT Office Visit [facility] [address] [place] [address] [facility] [place] [address] Nate Ann MD [address] [place] [address] [facility] Start: 05-15-2025 End: 05-15-2025 Patient encounter procedure 05/15/2025 2:30 PM EDT Office Visit Neurology [address] [place] [id number] Nicole Mustafa MD [address] [place] [address] CONSULT TO NEUROLOGY Neurology Comment on above: CONSULT TO NEUROLOGY Start: 04-26-2025 End: 07-26-2025 Hemoglobin A1c in Blood HEMOGLOBIN A1C Lab Routine Idiopathic progressive polyneuropathy Expected: 04/26/2025, Expires: 07/26/2025 [facility] Work Phone: Comment on above: Expected: 04/26/2025, Expires: Start: 04-26-2025 End: 07-26-2025 IMMUNOFIXATION SCREEN, SERUM IMMUNOFIXATION SCREEN, SERUM Lab Routine Idiopathic progressive polyneuropathy Expected: 04/26/2025, Expires: 07/26/2025 [facility] Comment on above: Expected: 04/26/2025, Expires: Start: 04-26-2025 End: 07-26-2025 PROTEIN ELECTROPHORESIS SERUM W/INTERP PROTEIN ELECTROPHORESIS SERUM W/INTERP Lab Routine Idiopathic progressive polyneuropathy Expected: 04/26/2025, Expires: 07/26/2025 [facility] Comment on above: Expected: 04/26/2025, Expires: Start: 04-17-2025 Adult BMI Screening Adult BMI Screening [facility] Start: 04-17-2025 Tobacco Screening Tobacco Screening [facility] Start: 04-11-2025 End: 04-11-2025 Patient encounter procedure 04/11/2025 2:45 PM EDT Office Visit [facility] [address] [facility] [address] [place] [address] Renan Delaney MD [address] [facility], [address] [place] [address] [facility] Start: 04-11-2025 End: 04-11-2026 XR Tibia and Fibula - left 2 Views X-ray tibia fibula left minimum 2 views Imaging Routine Periprosthetic fracture of proximal end of tibia, subsequent encounter Expected: 04/11/2025, Expires: 04/11/2026 [facility] Work Phone: Comment on above: Expected: 04/11/2025, Expires: Start: 04-03-2025 End: 04-03-2025 Patient encounter procedure 04/03/2025 3:30 PM EDT Office Visit [facility] [address] [facility] [place] [phone] Pump, Radha, HEAD CORRECTION OFFICER [address] [facility], [place] [phone] [facility] Start: 03-23-2025 BP Controlled (<130/80) BP Controlled (<130/80) [facility] Start: 03-21-2025 End: 03-21-2025 Patient encounter procedure 03/21/2025 3:00 PM EDT Office Visit [facility] [address] [place] [address] Renan Delaney MD [facility] [place] [address] [facility] Start: 03-21-2025 End: 03-21-2026 XR Tibia and Fibula - left 2 Views X-ray tibia fibula left minimum 2 views Imaging Routine Status post revision of total replacement of left knee Expected: 03/21/2025, Expires: 03/21/2026 [facility] Work Phone: Comment on above: Expected: 03/21/2025, Expires: Start: 03-14-2025 End: 03-14-2025 Patient encounter procedure 03/14/2025 11:30 AM EDT Office Visit [facility] [address] [place] [phone] Renan Delaney MD [facility] [place] [address] [facility] Start: 03-07-2025 End: 03-07-2025 Patient encounter procedure 03/07/2025 8:30 AM EDT Office Visit [facility] [address] [place] [phone] Renan Delaney MD [address], [address] [place] [address] [facility] Start: 02-28-2025 End: 02-28-2025 Patient encounter procedure 02/28/2025 3:15 PM EDT Office Visit [facility] [address] [place] [phone] Renan Delaney MD [address] [place] [address], [address] [place] [address] [facility] Start: 02-22-2025 End: 02-22-2025 Patient encounter procedure 02/22/2025 11:15 AM EDT Office Visit [facility] [address] [place] [address] [place] [address] Jany Smith MD [address] [place] [address] Jayleen Gautam PA [address] [place] [address] [facility] Start: 02-14-2025 Creatinine measurement Serum Creatinine [facility] Start: 02-08-2025 Screening for malignant neoplasm of breast [facility] Start: 01-31-2025 End: 01-31-2026 XR Tibia and Fibula - left 2 Views X-ray tibia fibula left minimum 2 views Imaging Routine Periprosthetic fracture of proximal end of tibia, subsequent encounter Expected: 01/31/2025, Expires: 01/31/2026 [facility] Work Phone: Comment on above: Expected: 01/31/2025, Expires: Start: 01-26-2025 End: 01-26-2025 Patient encounter procedure [facility] Start: 01-25-2025 End: 01-25-2025 Patient encounter procedure [facility] Start: 12-17-2024 Adult BMI Screening Adult BMI Screening [facility] Start: 12-17-2024 Tobacco Screening Tobacco Screening [facility] Start: 12-14-2024 End: 12-14-2025 XR Knee - left 3 Views X-ray knee left 3 views Imaging Routine 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 ([facility]) Expected: 12/14/2024, Expires: 12/14/2025 [facility] Work Phone: Comment on above: Expected: 12/14/2024, Expires: Start: 12-14-2024 End: 12-14-2024 Patient encounter procedure 12/14/2024 10:15 AM EDT Office Visit [facility] [address] [facility] [address] [place] [phone] Nafisa Navarro MD [address] [place] [address] [facility] Start: 12-12-2024 End: 12-12-2024 Patient encounter procedure [facility] Start: 12-08-2024 End: 12-08-2024 Patient encounter procedure 12/08/2024 10:30 AM EDT Office Visit [facility] [address] [place] [address] Jany Smith MD [address] [place] [address] [facility] Start: 12-05-2024 End: 12-05-2024 Patient encounter procedure [facility] Start: 11-30-2024 End: 11-30-2024 Patient encounter procedure 11/30/2024 12:30 PM EST Office Visit [facility] [address] [place] [phone] Rafat Sepulveda MD [address] [place], [place] [phone] [facility] Start: 11-29-2024 Complete blood count Hemoglobin/Hematocrit [facility] Start: 11-29-2024 End: 11-28-2025 DXA Skeletal system Views for bone density Dexa scan central skeletal Imaging Routine Age-related osteoporosis without current pathological fracture Expected: 11/29/2024 (Approximate), Expires: 11/28/2025 [facility] Work Phone: Comment on above: Expected: 11/29/2024 (Approximate), Expi res: 11/28/2025 Start: 11-29-2024 End: 11-29-2024 Patient encounter procedure 11/29/2024 1:00 PM EST Office Visit [facility] [address] [place] [phone] Reba Brown, LEAD PROCESS ENGINEER-DISTRICT SERVICE MANAGER [address] [address] [facility] Start: 11-28-2024 End: 11-28-2025 Calcium [Mass/volume] in Serum or Plasma Calcium Lab Routine History of sleeve gastrectomy 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 Expected: 11/28/2024 (Approximate), Expires: 11/28/2025 [facility] [employer] Comment on above: Expected: 11/28/2024 (Approximate), Expi res: 11/28/2025 Start: 11-28-2024 End: 11-28-2025 CBC W Auto Differential panel - Blood CBC auto differential Lab Routine History of sleeve gastrectomy 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 Expected: 11/28/2024 (Approximate), Expires: 11/28/2025 [facility] Comment on above: Expected: 11/28/2024 (Approximate), Expi res: 11/28/2025 Start: 11-28-2024 End: 11-28-2025 Copper, serum Copper, serum Lab Routine History of sleeve gastrectomy 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 Expected: 11/28/2024 (Approximate), Expires: 11/28/2025 [facility] Comment on above: Expected: 11/28/2024 (Approximate), Expi res: 11/28/2025 Start: 11-28-2024 End: 11-28-2025 Cyanocobalamin vitamin b-12 Vitamin B12 Lab Routine History of sleeve gastrectomy 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 Expected: 11/28/2024 (Approximate), Expires: 11/28/2025 [facility] Comment on above: Expected: 11/28/2024 (Approximate), Expi res: 11/28/2025 Start: 11-28-2024 End: 11-28-2025 Ferritin [Mass/volume] in Serum or Plasma Ferritin Lab Routine History of sleeve gastrectomy 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 Expected: 11/28/2024 (Approximate), Expires: 11/28/2025 [facility] Comment on above: Expected: 11/28/2024 (Approximate), Expi res: 11/28/2025 Start: 11-28-2024 End: 11-28-2025 Folate Folate Lab Routine History of sleeve gastrectomy 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 Expected: 11/28/2024 (Approximate), Expires: 11/28/2025 [facility] Comment on above: Expected: 11/28/2024 (Approximate), Expi res: 11/28/2025 Start: 11-28-2024 End: 11-28-2025 Iron and TIBC Iron and TIBC Lab Routine History of sleeve gastrectomy 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 Expected: 11/28/2024 (Approximate), Expires: 11/28/2025 [facility] Comment on above: Expected: 11/28/2024 (Approximate), Expi res: 11/28/2025 Start: 11-28-2024 End: 11-28-2025 Lipid 1996 panel - Serum or Plasma Lipid profile Lab Routine History of sleeve gastrectomy 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 Expected: 11/28/2024 (Approximate), Expires: 11/28/2025 [employer] Work Phone: Comment on above: Expected: 11/28/2024 (Approximate), Expi res: 11/28/2025 Start: 11-28-2024 End: 11-28-2025 Liver panel Liver panel Lab Routine History of sleeve gastrectomy 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 Expected: 11/28/2024 (Approximate), Expires: 11/28/2025 [facility] [employer] Comment on above: Expected: 11/28/2024 (Approximate), Expi res: 11/28/2025 Start: 11-28-2024 End: 11-28-2025 Parathyroid Hormone, intact Parathyroid Hormone, intact Lab Routine History of sleeve gastrectomy 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 Expected: 11/28/2024 (Approximate), Expires: 11/28/2025 [facility] [employer] [facility] Comment on above: Expected: 11/28/2024 (Approximate), Expi res: 11/28/2025 Start: 11-28-2024 End: 11-28-2025 Thiamin Vitamin B1, whole blood Thiamin Vitamin B1, whole blood Lab Routine History of sleeve gastrectomy 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 Expected: 11/28/2024 (Approximate), Expires: 11/28/2025 [facility] Comment on above: Expected: 11/28/2024 (Approximate), Expi res: 11/28/2025 Start: 11-28-2024 End: 11-28-2025 Vitamin A (Retinol) Vitamin A (Retinol) Lab Routine History of sleeve gastrectomy 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 Expected: 11/28/2024 (Approximate), Expires: 11/28/2025 [facility] Comment on above: Expected: 11/28/2024 (Approximate), Expi res: 11/28/2025 Start: 11-28-2024 End: 11-28-2025 Vitamin D 25 hydroxy Vitamin D 25 hydroxy Lab Routine History of sleeve gastrectomy 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 Expected: 11/28/2024 (Approximate), Expires: 11/28/2025 [facility] Comment on above: Expected: 11/28/2024 (Approximate), Expi res: 11/28/2025 Start: 11-28-2024 End: 11-28-2025 Zinc Zinc Lab Routine History of sleeve gastrectomy 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 Expected: 11/28/2024 (Approximate), Expires: 11/28/2025 [facility] Comment on above: Expected: 11/28/2024 (Approximate), Expi res: 11/28/2025 Start: 11-23-2024 End: 11-23-2024 Patient encounter procedure 11/23/2024 1:10 PM EST Office Visit [facility] Clay David [address] [facility] [address] [place] [address] Ivan Cleary MD [address] [facility] [address] [place] [address] Daphney David Start: 11-17-2024 End: 11-17-2024 Admission to same day surgery center 11/17/2024 4:15 PM EST - 11/17/2024 5:30 PM EST Surgery [facility] [address] [place] [phone] Nafisa Navarro MD [address] [place] [address] REVISION POLY EXCHANGE KNEE [85832 (CPT )] [facility] Comment on above: REVISION POLY EXCHANGE KNEE [83669 (CPT )] Start: 11-17-2024 End: 11-17-2024 Revj total knee arthrp w/wo algrft 1 component REVISION POLY EXCHANGE KNEE 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 ([facility]) Expected: 11/16/2024, Expires: 11/16/2025 [employer] Work Phone: Comment on above: Expected: 11/16/2024, Expires: Start: 10-19-2024 Tobacco Screening Tobacco Screening [facility] [employer] [facility] Start: 09-28-2024 Advance Directive Discussion Advance Directive Discussion [facility] Start: 09-28-2024 Medicare Advantage Annual Wellness Visit Medicare Advantage Annual Wellness Visit [facility] Start: 09-02-2024 End: 09-02-2025 XR Femur - left 2 Views X-ray femur left 2+ views Imaging Routine Closed displaced supracondylar fracture of distal end of left femur without intracondylar extension with routine healing, subsequent encounter Expected: 09/02/2024, Expires: 09/02/2025 [employer] Work Phone: Comment on above: Expected: 09/02/2024, Expires: Start: 09-02-2024 End: 09-02-2024 [facility] Start: 08-31-2024 End: 08-31-2025 XR Femur - left 2 Views X-ray femur left 2+ views Imaging Routine Closed displaced supracondylar fracture of distal end of left femur without intracondylar extension with routine healing, subsequent encounter Expected: 08/31/2024, Expires: 08/31/2025 [employer] Work Phone: Comment on above: Expected: 08/31/2024, Expires: Start: 08-23-2024 End: 08-23-2024 Patient encounter procedure 08/23/2024 12:30 PM EST Office Visit [facility] [address] [address] Cornell Alva MD [address] [place] [address] Follow up [facility] Comment on above: Follow up Start: 08-18-2024 End: 08-18-2024 Patient encounter procedure 08/18/2024 2:50 PM EST Office Visit [facility] [address] [facility] [address] [place] [phone] Ivan Cleary MD [address] [facility] [address] [place] [phone] [facility] Start: 08-11-2024 Tobacco Screening Tobacco Screening [facility] Start: 08-10-2024 Adult BMI Screening Adult BMI Screening [facility] Start: 08-09-2024 Depression Screening Depression Screening [facility] Start: 07-20-2024 End: 07-20-2024 Patient encounter procedure 07/20/2024 2:00 PM EDT Office Visit [facility] [address] [facility] [place] [address] Rafat Sepulveda MD [address] [place] [address] [facility] Start: 06-22-2024 End: 06-22-2025 XR Femur - left 2 Views X-ray femur left 2+ views Imaging Routine Closed displaced supracondylar fracture of distal end of left femur without intracondylar extension with routine healing, subsequent encounter Expected: 06/22/2024, Expires: 06/22/2025 [facility] Work Phone: Comment on above: Expected: 06/22/2024, Expires: Start: 06-22-2024 End: 06-22-2024 Patient encounter procedure 06/22/2024 12:30 PM EDT Office Visit [facility] [address] [place] [address] Rafat Sepulveda MD [address] [place] [address] [facility] Start: 06-20-2024 End: 06-20-2024 Patient encounter procedure 06/20/2024 2:45 PM EDT Office Visit [facility] [address] [place] [address] Jany Smith MD [address] [facility] [address] [facility] Start: 06-02-2024 End: 06-02-2024 Social Work 06/02/2024 1:00 PM EDT Social Work [facility] [address] [place] [address] Jacquie Brooks, TISHA-S [address] [place] [address] [facility] Start: 05-29-2024 COVID-19 Vaccine ( season) COVID-19 Vaccine ( season) [facility] Start: 05-29-2024 COVID-19 Vaccine ( season) COVID-19 Vaccine ( season) [facility] Start: 05-29-2024 COVID-19 Vaccine ( season) COVID-19 Vaccine ( season) [facility] Start: 05-29-2024 Influenza vaccination [facility] Start: 05-18-2024 End: 05-18-2024 Patient encounter procedure [facility] Comment on above: Arrived Start: 05-17-2024 End: 05-17-2024 Follow-up encounter 05/17/2024 1:45 PM EDT Follow Up Anticoagulation [facility] Medication Therapy Management [address] [place] [address] [facility] Start: 05-12-2024 Administration of varicella zoster vaccine Zoster (Shingles) Vaccine (2 of 2) [facility] Start: 05-12-2024 Shingrix Vaccine (2 of 2) Shingrix Vaccine (2 of 2) [facility] Start: 05-04-2024 End: 05-04-2024 Patient encounter procedure 05/04/2024 2:15 PM EDT Procedure Neurology [address] [place] [address] florentino [facility] Comment on above: florentino ERIC Start: 04-27-2024 End: 04-27-2024 Patient encounter procedure 04/27/2024 11:45 AM EDT Office Visit [facility] [address] [facility] [address] [phone] Jany Smith MD [address] [place] [address] [facility] Start: 04-21-2024 End: 04-21-2024 Follow-up encounter 04/21/2024 1:45 PM EDT Follow Up Anticoagulation [facility] Medication Therapy Management [address] [place] [address] [facility] Start: 04-19-2024 End: 04-19-2024 ambulatory 04/19/2024 12:30 PM EDT Procedure Neurology [address] [place], [place] [id number] [facility] Comment on above: [facility] Start: 04-15-2024 End: 04-15-2024 Follow-up encounter 04/15/2024 1:15 PM EDT Follow Up Anticoagulation [facility] Medication Therapy Management [address] [place] [address] [facility] Start: 03-22-2024 End: 03-22-2024 Follow-up encounter 03/22/2024 11:00 AM EDT Follow Up Anticoagulation [facility] Medication Therapy Management [address] [place] [address] [facility] Start: 03-09-2024 End: 03-09-2024 Patient encounter procedure 03/09/2024 11:15 AM EDT Office Visit [facility] [address] [place] [address] Jany Smith MD [address] [place] [address] [facility] Start: 02-19-2024 End: 02-19-2024 Follow-up encounter 02/19/2024 2:00 PM EDT Follow Up Anticoagulation [facility] Medication Therapy Management [address] [place] [address] [facility] Start: 02-15-2024 End: 02-15-2024 Patient encounter procedure 02/15/2024 2:45 PM EDT Office Visit [facility] [address] [place] [address] Jany Smith MD [address] [place] [address] [facility] Start: 02-02-2024 End: 02-02-2024 Follow-up encounter 02/02/2024 9:00 AM EDT Follow Up Anticoagulation [facility] Medication Therapy Management [address] [place] [address] [facility] Start: 01-29-2024 End: 01-29-2024 Patient encounter procedure 01/29/2024 1:15 PM EDT Office Visit [facility] [address] [place] [address] Jany Smith MD [address] [place] [address] [facility] Start: 01-27-2024 End: 01-27-2024 Follow-up encounter 01/27/2024 2:00 PM EDT Follow Up Anticoagulation [facility] Medication Therapy Management [address] [place] [address] [facility] Start: 01-25-2024 End: 01-25-2024 Patient encounter procedure 01/25/2024 1:00 PM EDT Office Visit [facility] [address] [facility] [place] [phone] Maryjane Deutsch NP [address] [place] [address] [facility] Start: 01-08-2024 End: 01-08-2024 Follow-up encounter 01/08/2024 1:15 PM EDT Follow Up Anticoagulation [facility] Medication Therapy Management [address] [facility] [place] [address] [facility] Start: 12-24-2023 End: 12-24-2023 Follow-up encounter 12/24/2023 9:30 AM EDT Follow Up Anticoagulation [facility] Medication Therapy Management [address] [place] [address] [facility] Start: 12-18-2023 End: 12-18-2023 Patient encounter procedure 12/18/2023 2:10 PM EDT Office Visit [facility] [address] [place] [address] Ivan Cleary MD [address] [place] [address] [facility] Start: 12-18-2023 End: 12-18-2023 Patient encounter procedure 12/18/2023 11:30 AM EDT Office Visit [facility]-B[facility]ric [address] [place] [address] Nuria Rojas PA-C [address] [place] [address] [facility] Start: 12-10-2023 End: 12-10-2023 Follow-up encounter 12/10/2023 11:45 AM EDT Follow Up Anticoagulation [facility] Medication Therapy Management [address] [place] [address] [facility] Start: 11-20-2023 End: 11-20-2023 Patient encounter procedure 11/20/2023 1:30 PM EST Office Visit [facility] [address] [place] [address] Ivan Cleary MD [address] [place] [address] [facility] Start: 11-17-2023 End: 11-17-2023 Patient encounter procedure 11/17/2023 1:00 PM EST Office Visit [facility] General [facility]-B[facility]ric [address] [place] [address] Marci Souza, LEAD PROCESS ENGINEER-DISTRICT SERVICE MANAGER [address] [place] [address] [facility] General Surgery-Bariatric Start: 11-12-2023 End: 11-12-2023 Follow-up encounter 11/12/2023 11:45 AM EST Follow Up Anticoagulation [facility] Medication Therapy Management [address] [place] [address] [facility] Start: 11-03-2023 End: 10-27-2024 Calcium [Mass/volume] in Serum or Plasma Calcium Lab Routine History of sleeve gastrectomy 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 History of hyperlipidemia History of anemia Expected: 11/03/2023, Expires: 10/27/2024 [facility] Work Phone: Comment on above: Expected: 11/03/2023, Expires: Start: 11-03-2023 End: 10-27-2024 CBC W Auto Differential panel - Blood CBC auto differential Lab Routine History of sleeve gastrectomy 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 History of hyperlipidemia History of anemia Expected: 11/03/2023, Expires: 10/27/2024 [facility] [employer] Comment on above: Expected: 11/03/2023, Expires: Start: 11-03-2023 End: 10-27-2024 Copper, serum Copper, serum Lab Routine History of sleeve gastrectomy 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 History of hyperlipidemia History of anemia Expected: 11/03/2023, Expires: 10/27/2024 [facility] [employer] Comment on above: Expected: 11/03/2023, Expires: Start: 11-03-2023 End: 10-27-2024 Cyanocobalamin vitamin b-12 Vitamin B12 Lab Routine History of sleeve gastrectomy 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 History of hyperlipidemia History of anemia Expected: 11/03/2023, Expires: 10/27/2024 [facility] [employer] [facility] Comment on above: Expected: 11/03/2023, Expires: Start: 11-03-2023 End: 10-27-2024 Ferritin [Mass/volume] in Serum or Plasma Ferritin Lab Routine History of sleeve gastrectomy 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 History of hyperlipidemia History of anemia Expected: 11/03/2023, Expires: 10/27/2024 [facility] Comment on above: Expected: 11/03/2023, Expires: Start: 11-03-2023 End: 10-27-2024 Folate Folate Lab Routine History of sleeve gastrectomy 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 History of hyperlipidemia History of anemia Expected: 11/03/2023, Expires: 10/27/2024 [facility] Comment on above: Expected: 11/03/2023, Expires: Start: 11-03-2023 End: 10-27-2024 Iron and TIBC Iron and TIBC Lab Routine History of sleeve gastrectomy 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 History of hyperlipidemia History of anemia Expected: 11/03/2023, Expires: 10/27/2024 [facility] Comment on above: Expected: 11/03/2023, Expires: Start: 11-03-2023 End: 10-27-2024 Lipid 1996 panel - Serum or Plasma Lipid profile Lab Routine History of sleeve gastrectomy 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 History of hyperlipidemia History of anemia Expected: 11/03/2023, Expires: 10/27/2024 [facility] Comment on above: Expected: 11/03/2023, Expires: Start: 11-03-2023 End: 10-27-2024 Liver panel Liver panel Lab Routine History of sleeve gastrectomy 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 History of hyperlipidemia History of anemia Expected: 11/03/2023, Expires: 10/27/2024 [facility] Comment on above: Expected: 11/03/2023, Expires: Start: 11-03-2023 End: 10-27-2024 Parathyroid Hormone, intact Parathyroid Hormone, intact Lab Routine History of sleeve gastrectomy 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 History of hyperlipidemia History of anemia Expected: 11/03/2023, Expires: 10/27/2024 [facility] Comment on above: Expected: 11/03/2023, Expires: Start: 11-03-2023 End: 10-27-2024 Thiamin Vitamin B1, whole blood Thiamin Vitamin B1, whole blood Lab Routine History of sleeve gastrectomy 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 History of hyperlipidemia History of anemia Expected: 11/03/2023, Expires: 10/27/2024 [facility] Comment on above: Expected: 11/03/2023, Expires: Start: 11-03-2023 End: 10-27-2024 Vitamin A (Retinol) Vitamin A (Retinol) Lab Routine History of sleeve gastrectomy 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 History of hyperlipidemia History of anemia Expected: 11/03/2023, Expires: 10/27/2024 [facility] Comment on above: Expected: 11/03/2023, Expires: Start: 11-03-2023 End: 10-27-2024 Vitamin D 25 hydroxy Vitamin D 25 hydroxy Lab Routine History of sleeve gastrectomy 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 History of hyperlipidemia History of anemia Expected: 11/03/2023, Expires: 10/27/2024 [facility] Comment on above: Expected: 11/03/2023, Expires: Start: 11-03-2023 End: 10-27-2024 Zinc Zinc Lab Routine History of sleeve gastrectomy 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 History of hyperlipidemia History of anemia Expected: 11/03/2023, Expires: 10/27/2024 [facility] Comment on above: Expected: 11/03/2023, Expires: Start: 10-30-2023 End: 10-30-2023 Follow-up encounter 10/30/2023 1:15 PM EST Follow Up Anticoagulation [facility] [address] [place] [address] [facility] Start: 10-19-2023 End: 10-19-2023 Patient encounter procedure 10/19/2023 2:00 PM EST Office Visit [facility] [address] [place] [address] [place] [address] Chaz BetancuronDELIO [address] [facility] [address] [place] [address] [facility] Start: 10-06-2023 Screening for malignant neoplasm of colon [facility] Start: 09-28-2023 Advance Directive Discussion Advance Directive Discussion [facility] Start: 05-29-2023 COVID-19 Vaccine () COVID-19 Vaccine () [facility] Start: 05-29-2023 Covid-19 Vaccine () Covid-19 Vaccine () [facility] Start: 11-08-2020 Screening for malignant neoplasm of breast [facility] Start: 10-28-2020 Screening for malignant neoplasm of breast Mammogram [facility] Start: 08-05-2020 Annual Wellness Visit (AWV) Annual Wellness Visit (AWV) [place] Start: 05-29-2020 Influenza vaccination Flu vaccine (#1) [place] Start: 01-11-2020 Creatinine measurement Creatinine monitoring [place] Start: 01-11-2020 Potassium monitoring Potassium monitoring [place] Start: 2019 Fall Risk Screening Fall Risk Screening [facility] Start: 2019 Pneumococcal 65+ years Vaccine (2 of 2 - PPSV23) Pneumococcal 65+ years Vaccine (2 of 2 - PPSV23) [place] Start: 2019 Screening for osteoporosis Bone Density Screening [facility] Start: 04-05-2019 Medicare Annual Wellness (AWV) Medicare Annual Wellness (AWV) [facility] Start: 04-05-2019 Medicare Annual Wellness Visit Medicare Annual Wellness Visit [facility] Start: 2009 Screening for osteoporosis DEXA (modify frequency per FRAX score) [place] Start: 2004 Administration of varicella zoster vaccine Zoster (Shingles) Vaccine (1 of 2) [facility] Start: 2004 Screening for malignant neoplasm of breast Breast cancer screen [place] Start: 2004 Screening for malignant neoplasm of colon Colon cancer screen colonoscopy [place] Start: 2004 Shingles Vaccine (1 of 2) Shingles Vaccine (1 of 2) [place] Start: 1999 Screening for malignant neoplasm of colon [facility] Start: 1994 Lipid panel Lipid screen [place] Start: 1975 Screening for malignant neoplasm of cervix Cervical cancer screen [place] Start: 1973 DTaP,Tdap and Td Vaccines (1 - Tdap) DTaP,Tdap and Td Vaccines (1 - Tdap) [facility] Start: 1973 DTaP/Tdap/Td vaccine (1 - Tdap) DTaP/Tdap/Td vaccine (1 - Tdap) [place] Start: 1973 Urine microalbumin profile DTaP,Tdap,Td Vaccine (1 - Tdap) [facility] Start: 1972 Adult BMI Follow Up Plan Adult BMI Follow Up Plan [facility] Start: 1972 Annual PCP Team Chronic Disease Visit Annual PCP Team Chronic Disease Visit [facility] Start: 1972 Spirometry Spirometry [facility] Start: 1969 HIV screening HIV screen [place], [place] Start: 1954 Hepatitis C screening Hepatitis C screen [place] Start: 1954 Screening for malignant neoplasm of colon [facility] Bacteria identified in Aspirate by Aerobe culture Aspirate culture includes gram stain Microbiology STAT Open leg wound, left, initial encounter 03/02/2025 12:30 PM EDT [facility] Bacteria identified in Unspecified specimen by Anaerobe culture Anaerobic culture Microbiology STAT Open leg wound, left, initial encounter 03/02/2025 12:30 PM EDT [facility] Work Phone: End: 01-12-2025 CBC W Auto Differential panel - Blood CBC auto differential Lab STAT STAT for 1 Occurrences starting 01/12/2025 until 01/12/2025 [employer] Work Phone: Comment on above: STAT for 1 Occurrences starting 01/13/20 until 01/12/2025 End: 01-31-2026 CBC W Auto Differential panel - Blood CBC auto differential Lab Routine Iron deficiency anemia secondary to blood loss (chronic) 2 weeks for 6 Occurrences starting 01/31/2025 until 01/31/2026 [employer] Work Phone: Comment on above: 2 weeks for 6 Occurrences starting 01/31 until 01/31/2026 End: 08-03-2020 COVID-19 COVID-19 Lab Routine One Time for 1 Occurrences starting 08/03/2020 until 08/03/2020 [place] Comment on above: One Time for 1 Occurrences starting 02/2020 until 08/03/2020 End: 03-23-2025 EMG(NEURO/NI) EMG(NEURO/NI) EMG Routine Ataxia 1 Occurrences starting 03/23/2024 until 03/23/2025 [facility] Comment on above: 1 Occurrences starting 03/23/2024 until 03/23/2025 End: 01-31-2026 Ferritin [Mass/volume] in Serum or Plasma Ferritin Lab Routine Iron deficiency anemia secondary to blood loss (chronic) 2 weeks for 6 Occurrences starting 01/31/2025 until 01/31/2026 [employer] Comment on above: 2 weeks for 6 Occurrences starting 01/31 until 01/31/2026 Fungus identified in Unspecified specimen by Culture Fungal culture includes fungal smear Microbiology STAT Open leg wound, left, initial encounter 03/02/2025 12:30 PM EDT [employer] End: 01-31-2026 Iron and TIBC Iron and TIBC Lab Routine Iron deficiency anemia secondary to blood loss (chronic) 2 weeks for 6 Occurrences starting 01/31/2025 until 01/31/2026 [facility] Comment on above: 2 weeks for 6 Occurrences starting 01/31 until 01/31/2026 End: 04-22-2025 MR Brain WO and W contrast IV MRI 7T BRAIN WO/W IVCON Radiology Routine Demyelinating disease of central nervous system (HCC) 1 Occurrences starting 03/23/2024 until 04/22/2025 [facility] Work Phone: Comment on above: 1 Occurrences starting 03/23/2024 until 04/22/2025 End: 01-31-2026 Reticulocytes Reticulocytes Lab Routine Iron deficiency anemia secondary to blood loss (chronic) 2 weeks for 6 Occurrences starting 01/31/2025 until 01/31/2026 [facility] Comment on above: 2 weeks for 6 Occurrences starting 01/31 until 01/31/2026 End: 01-12-2025 Type and screen(includes indirect sherron) Type and screen(includes indirect sherron) Blood Bank Routine Once for 1 Occurrences starting 01/12/2025 until 01/12/2025 [facility] Work Phone: Comment on above: Once for 1 Occurrences starting 01/13/20 until 01/12/2025 Immunizations Immunization Date Immunization Notes Care Provider Fa [facility] 03-17-2024 ABRYSVO - Respirator y syncytial virus (RSV), vaccine, bivalent, protein subunit RSV prefusion F, diluent reconstituted, 0.5 mL, PF Jr. Stepanic DO Work Phone: [facility] 03-17-2024 zoster vaccine recombinant Jr. Stepanic DO Work Phone: [facility] 03-17-2024 zoster vaccine, unspecified formulation Pmh 2 [facility] 07-01-2023 Influenza, High-dose Seasonal, Quadrivalent, Preservative Free Maryjane Deutsch NP Work Phone: [facility] 07-01-2023 influenza virus vacc ine, unspecified formulation Pmh 2 [facility] 07-14-2022 Influenza Vaccine, Quadrivalent, Adjuvanted Pmh 1 [facility] 12-28-2021 Moderna SARS-CoV-2 Booster Vaccination Bryant Guillen MD Other Phone: [facility] 11-30-2021 Moderna SARS-CoV-2 Vaccination Bryant Guillen MD Other Phone: [facility] 08-14-2021 Influenza, High-dose , Quadrivalent Pmh 1 [facility] 08-14-2021 pneumococcal polysaccharide vaccine, 23 valent Pmh 1 [facility] 12-28-2020 COVID-19, mRNA, LNP- S, PF, 100mcg/0.5mL Dose Pmh 1 [facility] 11-30-2020 COVID-19, mRNA, LNP- S, PF, 100mcg/0.5mL Dose Pmh 1 [facility] 10-10-2020 SARS-COV-2 (COVID-19 ) Vaccine, Unspecified Pmh 1 [facility] 09-15-2019 Influenza, injectabl e, Madin [place] Canine Kidney, preservative free, quadrivalent Pmh 1 [facility] 09-28-2018 influenza virus vacc ine, unspecified formulation Pmh 1 [facility] 08-10-2017 influenza, high dose seasonal, preservative-free Pmh 1 [facility] 08-10-2017 pneumococcal conjuga te vaccine, 13 valent Pmh 1 [facility] 07-09-2015 influenza virus vacc ine, unspecified formulation Pmh 1 [facility] 07-09-2015 influenza, seasonal, injectable Pmh 1 [facility] Payers Date Payer Category Payer Medicaid NOT SUBMITTED 09-28-2021 Managed Care HMO (unspecified) [employer]ET[employer] AETNA [id number] 09/28/2021-Present [address] [place] [address] HMO [id number] 09-28-2021 Medicaid [employer] MEDICARE A DVANTAGE [id number] 09-28-2021 Medicare [id number] 09-28-2021 Medicare (Managed Care) [employer] [place] [id number] 09-28-2021 Medicare HMO [employer] MEDICARE [id number] 09-28-2021 Medicare [id number] 2.16.840.1.877485.19 09-28-2017 Private Health Insurance [id number] [id number] 1955 Unknown [id number] 2.16840.1.094185.3.579.2. 647 1954 Unknown [id number] 2.16840.1.515414.3.579.2. 647 1954 Unknown [id number] 2.16840.1.901913.3.579.2. 647 1954 Unknown [id number] 2.16840.1.811019.3.579.2. 647 1954 Unknown [id number] 2.16.840.1.452471.3.579.2. 647 1954 Unknown [id number] 2.16.840.1.867972.3.579.2. 175 1954 Unknown [id number] 2.16.840.1.630700.3.579.2. 177 1954 Unknown [id number] 2.16.840.1.616686.3.579.2. 1286 1954 Unknown [id number] 2.16.840.1.283431.3.579.2. 1286 1954 Unknown [id number] 2.16.840.1.966573.3.579.2. 1286 1954 Unknown [id number] 2.16.840.1.469910.3.579.2. 1286 1954 Unknown [id number] 2.16.840.1.926450.3.579.2. 1286 1954 Unknown [id number] 2.16.840.1.875933.3.579.2. 1286 1954 Unknown [id number] 2.16.840.1.758555.3.579.2. 1286 1954 Unknown [id number] 2.16.840.1.835649.3.579.2. 1286 1954 Unknown [id number] 2.16.840.1.477431.3.579.2. 1286 1954 Unknown [id number] 2.16.840.1.775167.3.579.2. 1286 1954 Unknown [id number] 2.16.840.1.876038.3.579.2. 1286 1954 Unknown [id number] 2.16.840.1.152382.3.579.2. 1286 19-1954 Unknown [id number] 2.16.840.1.549657.3.579.2. 1285 1954 Unknown [id number] 2.16.840.1.458299.3.579.2. 1285 1954 Unknown [id number] 2.16.840.1.667742.3.579.2. 1285 1954 Unknown [id number] 2.16.840.1.351013.3.579.2. 1285 1954 Unknown [id number] 2.16.840.1.309282.3.579.2. 1285 1954 Unknown [id number] 2.16.840.1.183677.3.579.2. 1285 1954 Unknown [id number] 2.16.840.1.431647.3.579.2. 1285 1954 Unknown [id number] 2.16.840.1.638513.3.579.2. 1285 1954 Unknown [id number] 2.16.840.1.014120.3.579.2. 1285 1954 Unknown [id number] 2.16.840.1.728937.3.579.2. 1285 1954 Unknown [id number] 2.16.840.1.878950.3.579.2. 1285 1954 Unknown [id number] 2.16.840.1.086868.3.579.2. 1285 1954 Unknown [id number] 2.16.840.1.346498.3.579.2. 1285 1954 Unknown [id number] 2.16.840.1.712662.3.579.2. 1285 1954 Unknown [id number] 2.16.840.1.446484.3.579.2. 1285 1954 Unknown [id number] 2.16.840.1.196185.3.579.2. 128 1954 Unknown [id number] 2.16.840.1.072865.3.579.2. 128 1954 Unknown [id number] 2.16.840.1.844783.3.579.2. 128 1954 Unknown [id number] 2.16.840.1.225834.3.579.2. 128 1954 Unknown [id number] 2.16.840.1.978923.3.579.2. 128 1954 Unknown [id number] 2.16.840.1.893404.3.579.2. 1285 1954 Unknown [id number] 2.16.840.1.573890.3.579.2. 1285 1954 Unknown [id number] 2.16.840.1.994423.3.579.2. 1285 1954 Unknown [id number] 2.16.840.1.725124.3.579.2. 1285 1954 Unknown [id number] 2.16.840.1.789450.3.579.2. 1285 1954 Unknown [id number] 2.16.840.1.234006.3.579.2. 128 1954 Unknown [id number] 2.16.840.1.478110.3.579.2. 128 1954 Unknown [id number] 2.16.840.1.962278.3.579.2. 128 1954 Unknown [id number] 2.16.840.1.799324.3.579.2. 9 1954 Unknown [id number] 2.16.840.1.941224.3.579.2. 1259 1954 Unknown [id number] 2.16.840.1.654523.3.579.2. 1259 1954 Unknown [id number] 2.16.840.1.380033.3.579.2. 1259 1954 Unknown [id number] 2.16.840.1.736956.3.579.2. 1259 1954 Unknown [id number] 2.16.840.1.205951.3.579.2. 1258 1954 Unknown [id number] 2.16.840.1.818394.3.579.2. 1259 1954 Unknown [id number] 2.16.840.1.106417.3.579.2. 1258 1954 Unknown [id number] 2.16.840.1.730960.3.579.2. 1258 1954 Unknown [id number] 2.16.840.1.654589.3.579.2. 1285 1954 Unknown [id number] 2.16.840.1.182819.3.579.2. 1285 1954 Unknown [id number] 2.16.840.1.048546.3.579.2. 1285 1954 Unknown [id number] 2.16.840.1.340069.3.579.2. 1285 1954 Unknown [id number] 2.16.840.1.761050.3.579.2. 128 1954 Unknown [id number] 2.16.840.1.990138.3.579.2. 1285 1954 Unknown [id number] 2.16.840.1.008186.3.579.2. 128 1954 Unknown [id number] 2.16.840.1.525915.3.579.2. 1285 1954 Unknown [id number] 2.16.840.1.493728.3.579.2. 1286 1954 Unknown [id number] 2.16.840.1.678923.3.579.2. 128 1954 Unknown [id number] 2.16.840.1.198327.3.579.2. 128 1954 Unknown [id number] 2.16.840.1.317775.3.579.2. 128 1954 Unknown [id number] 2.16.840.1.778110.3.579.2. 128 1954 Unknown [id number] 2.16.840.1.818635.3.579.2. 1285 1954 Unknown [id number] 2.16.840.1.875429.3.579.2. 128 1954 Unknown [id number] 2.16.840.1.571863.3.579.2. 1285 1954 Unknown [id number] 2.16.840.1.668857.3.579.2. 1285 1954 Unknown [id number] 2.16.840.1.463067.3.579.2. 1285 1954 Unknown [id number] 2.16.840.1.114414.3.579.2. 1285 1954 Unknown [id number] 2.16.840.1.164029.3.579.2. 128 1954 Unknown [id number] 2.16.840.1.869755.3.579.2. 128 1954 Unknown [id number] 2.16.840.1.224772.3.579.2. 1285 1954 Unknown [id number] 2.16.840.1.059544.3.579.2. 1285 1954 Unknown [id number] 2.16.840.1.662101.3.579.2. 128 1954 Unknown [id number] 2.16.840.1.826703.3.579.2. 1285 1954 Unknown [id number] 2.16.840.1.186900.3.579.2. 1285 1954 Unknown [id number] 2.16.840.1.984229.3.579.2. 1285 1954 Unknown [id number] 2.16.840.1.422097.3.579.2. 1285 1954 Unknown [id number] 2.16.840.1.011581.3.579.2. 1285 1954 Unknown [id number] 2.16.840.1.668855.3.579.2. 1285 1954 Unknown [id number] 2.840.1.156337.3.579.2. 1285 1954 Unknown [id number] 2.840.1.712776.3.579.2. 1285 1954 Unknown [id number] 2.840.1.698759.3.579.2. 1285 1954 Unknown [id number] 2.16840.1.900859.3.579.2. 1285 1954 Unknown [id number] 2.16840.1.746091.3.579.2. 1285 1954 Unknown [id number] 2.16840.1.603271.3.579.2. 1285 1954 Unknown [id number] 2.16840.1.773218.3.579.2. 1285 1954 Unknown [id number] 2.16840.1.327223.3.579.2. 1285 1954 Unknown [id number] 2.16840.1.408054.3.579.2. 1285 1954 Unknown [id number] 2.16.840.1.565542.3.579.2. 1286 1954 Unknown [id number] 2.16.840.1.608597.3.579.2. 1286 1954 Unknown [id number] 2.16.840.1.885591.3.579.2. 1286 1954 Unknown [id number] 2.16.840.1.397983.3.579.2. 1286 1954 Unknown [id number] 2.16.840.1.045060.3.579.2. 1286 1954 Unknown [id number] 2.16.840.1.878693.3.579.2. 1286 1954 Unknown [id number] 2.16.840.1.538647.3.579.2. 1286 1954 Unknown [id number] 2.16.840.1.239051.3.579.2. 1286 Unknown Social History Date Type Detail Facility Start: 08-07-2020 End: 03-23-2024 Tobacco smoking status LAIS Never smoker [facility] Start: 08-07-2020 End: 03-23-2024 Tobacco use and exposure Never used [place] Start: 08-07-2020 End: 04-16-2025 Alcohol intake Current drinker of alcohol (finding) [place] Start: 03-27-2014 Alcohol Comment social [place] Start: 1955 Sex Assigned At Not on file [place] Exposure to SARS-CoV -2 (event) Not sure [place] Start: 10-28-2023 End: 01-17-2025 Sex Assigned At [facility] Start: 10-28-2023 Tobacco smoking status NHIS Ex-smoker [facility] History of tobacco use Current smoker [facility] History of tobacco use Cigarette Smoker [facility] Start: 10-28-2023 End: 04-22-2025 History of Social function [facility] How often to you hav e a drink containing alcohol? Monthly or less [facility] How many standard drinks containing alcohol do you have on a typical day? 1 or 2 [facility] How often do you hav e 6 or more drinks on 1 occasion? Never [facility] Start: 06-17-2023 Tobacco Comment Patient states she was a chain smoker for 4 months decades ago [facility] Start: 1955 Sex Assigned At Female [facility] Start: 06-22-2023 Gender identity Identifies as female gender (finding) [facility] Start: 06-22-2023 Sexual orientation Heterosexual (finding) [facility] National Score (1-10 0), lower number is lower risk Not on file [facility] Has the [employer] s, oil, or water company threatened to shut off services in your home in past 12Mo No [facility] Are you now , , , , never or living with a partner? [facility] How often to you hav e a drink containing alcohol? 2-4 times a month [facility] Do you feel stress - tense, restless, nervous, or anxious, or unable to sleep at night because your mind is troubled all the time - these days [OSQ] Not at all [facility] Start: 03-17-2019 Alcohol Comment occasionally [facility] [employer] [facility] Start: 05-01-2015 Sex Female (finding) [facility] Has the [employer] s, oil, or water company threatened to shut off services in your home in past 12Mo Yes [facility] How hard is it for y ou to pay for the very basics like food, housing, medical care, and heating Somewhat hard [facility] Medical Equipment Procedure Code Equipment Code Equipment Origin al Text Equipment Identifier Dates Plate Bn 301mm C rv 14 Hl Va Lcp Cmbn Cndrl Lt Ss 4.5mm Scr - [id number] Start: 06-03-2024 Screw Bn 38mm 5m m [address] Va Lck Strdr Ss T25 Ns - [id number] Start: 06-03-2024 Screw Bn 42mm [address]m m [address] Lck Va Strdr Ss T25 Ns Crv Cndrl Plt - [id number] Start: 06-03-2024 Screw Bn 46mm [address]m [address] Lck Va Strdr Ss T25 Ns Crv Cndrl Plt - [id number] Start: 06-03-2024 Screw Bn 75mm [address]m m [address] Va Lck Strdr - [id number] Start: 06-03-2024 Screw Bn 80mm 5m m [address] Lck Va Strdr Ss T25 Ns Crv Cndrl Plt Sy - [id number] Start: 06-03-2024 Screw Bn 85mm [address] Lck Va Strdr Ss T25 Ns - [id number] Start: 06-03-2024 Screw Bn 38mm 4. [address] Lg Hex Sckt Nitish Ss 3.5mm Ns Lg - [id number] Start: 06-03-2024 Bearing Tib 71/17wuf90od Kn Post Stab + Dir Cmpr Mld Vngrd - [id number] Start: 11-17-2024 Stem Tib Ascnt M xm Kn Intlk Ti Prm Lck Bar Strl - [id number] Start: 11-17-2024 Simplex P Bone Cement [id number] Start: 01-13-2025 Nail Im 440mm 4m m Elc Ti Ns Pur - [id number] Start: 01-13-2025 Plate Bn 236mm 9 Hl Lcp Fem Lt Dist Ti Ns - [id number] Start: 01-13-2025 Screw Bn 50mm 4. [address] Lg Hex Sckt Nitish Ti Ns Lg Frag - [id number] Start: 01-13-2025 Screw Bn 30mm 4. 5mm 6[address] Cnn Lg Hex Nitish Ti Ft Ns Lg - [id number] Start: 01-13-2025 Screw Bn 26mm 5m m 4.4mm Slf Drl Lck Thrd Cncl Hd Hex Ti 3.5m - [id number] Start: 01-13-2025 Screw Bn 40mm 5m m 4.4mm Slf Drl Lck Thrd Cncl Hd Hex Ti 3.5m - [id number] Start: 01-13-2025 Screw Bn 65mm 5m m 4.4mm Slf Drl Lck Thrd Cncl Hd Hex Ti 3.5m - [id number] Start: 01-13-2025 Goals Date Patient Goal Desired Activity /State [...] Discharge plan: SNF for short term rehab Personal health goal Comment on above: Formatting of this n ote might be different from the original. Evaluation of progress towards goal: pt will likely need [place] Personal health goal Comment on above: Formatting of this n ote might be different from the original. Evaluation of progress towards goal: Progress towards discharge Functional Status Date Assessment Result Facility 01-13-2025 Humiliation, Afraid, Rape, and Kick questionnaire [HARK] [facility] Mental Status Date Assessment Result Facility [facility] [employer] Clinical Notes 05-27-2023 to 04-27-2025 Telephone Encounter - Santo Harvey - 04/27/2025 11:40 AM EDTTelephone Encounter - Santo Harvey - 04/27/2025 11:40 AM EDTPatient Cornell Pérez MD - 04/26/2025 4:15 PM EDTDischarge Instructions Note Date & Type Note Facility 04-27-2025 Telephone encounter Note Juan Griffin called at 9:30 this morning to cancel [facility] appt . They left a Voice mail , but it got so busy up here I'm just getting back to those messages - Nia muir [facility] 04-27-2025 Miscellaneous Notes Juan Griffin called at 9:30 this morning to cancel [facility] appt . They left a Voice mail , but it got so busy up here I'm just getting back to those messages - Nia muir documented in this encounter [facility] 04-26-2025 Instructions Cornell Alva MD - 04/26/2025 4:57 PM EDT Schedule a consult with Neuromuscular Medicine. Schedule a consult with Spine Medicine. Get some initial screening labs for neuropathy when convenient at any [facility] lab. documented in this encounter [facility] 04-26-2025 History of Present illness Narrative Images from the original note were not included. [facility] FOLLOWUP/ESTABLISHED PATIENT VISIT PRINCIPAL NEUROLOGIC DIAGNOSIS: White matter abnormality MRI brain, Cervical/Thoracic/Lumbar spondylosis, Generalized polyneuropathy DISEASE SUMMARY Date of onset: 2015 (approx) Date of diagnosis of MS: NA Disease course at onset: Progressive without relapses Current disease course: Stable Previous disease therapies: NA Current disease therapy: NA Most recent MRI brain: 09/01/2019 Most recent MRI cervical spine: 04/15/2022 Most recent MRI thoracic spine: 04/15/2022 Most recent MRI lumbar spine: 04/15/2022 CSF: NA JCV serology result and date: NA Keila Allen is a 69-year-old female presenting for follow-up on MRI and EMG results, with ongoing issues related to neuropathy and spinal disc herniations. INTERVAL HISTORY: Recording using [employer] software for draft documentation of the visit was discussed with the patient/authorized senior human resources representative; all questions welcomed and answered. Patient/authorized senior human resources representative agreed to proceed Neuropathy: - EMG shows multiple pinched nerves in the lumbosacral region on the right side as well as a generalized polyneuropathy. - Experiencing balance and sensation issues. Spinal Disc Herniations: - MRI from 2021 shows multiple slipped discs along the entire length of the spine, including cervical and thoracic regions. - No signal change within the spinal cord to indicate injury. Physical Therapy: - Undergoing physical therapy for leg recovery. - Recently started weight-bearing exercises. - Using a stand-up walker for support. - Reports progress but has experienced setbacks due to falls and leg infections. Chronic Symptoms: Recurrent falls. No preceding symptoms. Uses a walker. Urinary incontinence. Wears pads daily. Intermittent upper extremity weakness. Occasional difficulty reaching above her head. Some hip weakness. Difficulty getting up when she falls. Lymphedema. Squeezing pain in the feet out of proportion to the level of swelling. Refer to patient-entered data. Usual treating team: No specialty comments available. The patient was last seen 03/23/2024, currently Not on DMT. Since the patient's last visit the patient reports overall feeling stable. Issues with current therapy: Not currently on disease modifying therapy. Neuro-QoL Functions (higher=better functioning) Flowsheet [facility] Office Visit from 03/23/2024 in [facility] Upper Extremity Domain T Score 37.5 Lower Extremity Domain T Score 34.54 Cognitive Function Domain T Score 41.16 Positive Affect Well Being T Score -- Ability To Participate In Social Roles T Score 38.47 Satisfaction With Social Roles T Score 35.2 Neuro-QoL Symptoms (higher=worse symptoms) Flowsheet [facility] Office Visit from 03/23/2024 in [facility] Sleep Domain T Score 71.41 Fatigue Domain T Score 66.56 Anxiety Domain T Score 58.33 Depression Domain T Score 53.76 Stigma Domain T Score 51.47 Emotional Behavior Dyscontrol T Score -- has no past medical history on file. has a current medication list which includes the following prescription(s): warfarin, oxybutynin er, cyanocobalamin, rosuvastatin, furosemide, losartan, amlodipine, hydralazine, ezetimibe, duloxetine dr, aspirin, enteric coated, acetaminophen 325 mg-caffeine 40 mg-butalbital 50 mg, cinnamon bark, famotidine, flecainide, fluoxetine, gabapentin, magnesium, metoprolol succinate er, omega-3/dha/epa/fish oil, [id number] acid, vit c,u-xg-vxiew-lutein-zeaxan, rosuvastatin, solifenacin, topiramate, warfarin, and warfarin. EXAM: BP 148/81 Pulse 65 Ht 165.1 cm (5' 5 ) Wt 104.3 kg (230 lb) BMI 38.27 kg/m MSPT Results Flowsheet Row Office Visit from 03/23/2024 in [facility] Processing Speed Total Number Correct 42 Processing Speed Z score 0.5 Dominant hand Right hand MDT Left Hand Time 27.56 MDT Right Hand Time 27.75 Walking Speed Test (25 feet) 12.98 Memory Z Score -- Hair, skin, nails, and joints were normal. Prominent lymphedema in the bilateral lower extremities. Neck was supple without Lhermitte's phenomenon. The patient was alert and oriented to person, place, and time with normal language, attention and concentration, recent and remote memory, praxis, and intellectual function. Affect was normal. The patient did not appear depressed. RESULTS: 05/04/2024 EMG: generalized sensorimotor axonal polyneuropathy, chronic right L3-S1 radiculopathy 05/02/2024 7T MRI Brain WWO IVCON: IMPRESSION: Scattered intracranial white matter lesions which [...] than one vessel associated with each lesion. 04/15/2022 MRI C/T-spine: Multilevel degenerative changes without corresponding cord signal change. B12 > 1,500 Folate 22.6 ASSESSMENT/PLAN: Keila Allen is a 69-year-old woman with a history of multiple vascular risk factors who initially presented to the [facility] in May 2018 for further evaluation of white matter abnormality on her MRI of the brain. Based on the appearance, it's more suggestive of chronic microvascular ischemia. 7T MR Brain was non-diagnostic, but MRI imaging has been stable now for 7 years. Her difficulty walking is likely multifactorial with contributions from large fiber neuropathy and degenerative disc disease. 1. 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 - Ordered screening labs to evaluate for treatable causes of neuropathy, including diabetes and serum protein electrophoresis. - Refer to neuromuscular medicine for further evaluation and management. 2. Degenerative disc disease, cervical (M50.30) 3. Degenerative disc disease, thoracic (M51.34) 4. Degeneration of intervertebral disc of lumbar region with discogenic back pain and lower extremity pain (M51.362) - MRI from 2021 shows multiple slipped discs throughout the cervical, thoracic, and lumbar spine without cord signal change. - EMG shows multiple pinched nerves in the lumbosacral region, likely contributing to right-sided weakness and sensory symptoms. - Unlikely to require surgical intervention based on current imaging; refer to spine clinic for further evaluation and symptom management. - Continue physical therapy; emphasized its importance for recovery and management of degenerative changes. The chart was reviewed for possible participation in the following studies: NA Follow-up: As needed for new or worsening symptoms I spent a total of 30 minutes on the date of the service which included preparing to see the patient, [id number] patient care, completing clinical documentation, obtaining and/or reviewing separately obtained history, counseling and educating the patient/family/caregiver, ordering medications, tests, or procedures, independently interpreting results (not separately reported), and communicating results to the patient/family/caregiver. Cornell Alva MD [facility] documented in this encounter [facility] 04-26-2025 Note HNO ID: [id number] Author: CORNELL ALVA MD Service: ? Author Type: Physician Type: Progress Notes Filed: 04/28/2025 09:57 Note Text: [facility] FOLLOWUP/ESTABLISHED PATIENT VISIT PRINCIPAL NEUROLOGIC DIAGNOSIS: White matter abnormality MRI brain, Cervical/Thoracic/Lumbar spondylosis, Generalized polyneuropathy DISEASE SUMMARY Date of onset: 2015 (approx) Date of diagnosis of MS: NA Disease course at onset: Progressive without relapses Current disease course: Stable Previous disease therapies: NA Current disease therapy: NA Most recent MRI brain: 09/01/2019 Most recent MRI cervical spine: 04/15/2022 Most recent MRI thoracic spine: 04/15/2022 Most recent MRI lumbar spine: 04/15/2022 CSF: NA JCV serology result and date: NA Keila Allen is a 69-year-old female presenting for follow-up on MRI and EMG results, with ongoing issues related to neuropathy and spinal disc herniations. INTERVAL HISTORY: Recording using [employer] software for draft documentation of the visit was discussed with the patient/authorized senior human resources representative; all questions welcomed and answered. Patient/authorized senior human resources representative agreed to proceed Neuropathy: - EMG shows multiple pinched nerves in the lumbosacral region on the right side as well as a generalized polyneuropathy. - Experiencing balance and sensation issues. Spinal Disc Herniations: - MRI from 2021 shows multiple slipped discs along the entire length of the spine, including cervical and thoracic regions. - No signal change within the spinal cord to indicate injury. Physical Therapy: - Undergoing physical therapy for leg recovery. - Recently started weight-bearing exercises. - Using a stand-up walker for support. - Reports progress but has experienced setbacks due to falls and leg infections. Chronic Symptoms: Recurrent falls. No preceding symptoms. Uses a walker. Urinary incontinence. Wears pads daily. Intermittent upper extremity weakness. Occasional difficulty reaching above her head. Some hip weakness. Difficulty getting up when she falls. Lymphedema. Squeezing pain in the feet out of proportion to the level of swelling. Refer to patient-entered data. Usual treating team: No specialty comments available. The patient was last seen 03/23/2024, currently Not on DMT. Since the patient's last visit the patient reports overall feeling stable. Issues with current therapy: Not currently on disease modifying therapy. Neuro-QoL Functions (higher=better functioning) Flowsheet Row Office Visit from 03/23/2024 in [facility] Upper Extremity Domain T Score 37.5 Lower Extremity Domain T Score 34.54 Cognitive Function Domain T Score 41.16 Positive Affect Well Being T Score -- Ability To Participate In Social Roles T Score 38.47 Satisfaction With Social Roles T Score 35.2 Neuro-QoL Symptoms (higher=worse symptoms) Flowsheet Row Office Visit from 03/23/2024 in [facility] Sleep Domain T Score 71.41 Fatigue Domain T Score 66.56 Anxiety Domain T Score 58.33 Depression Domain T Score 53.76 Stigma Domain T Score 51.47 Emotional Behavior Dyscontrol T Score -- has no past medical history on file. has a current medication list which includes the following prescription(s): warfarin, oxybutynin er, cyanocobalamin, rosuvastatin, furosemide, losartan, amlodipine, hydralazine, ezetimibe, duloxetine dr, aspirin, enteric coated, acetaminophen 325 mg-caffeine 40 mg-butalbital 50 mg, cinnamon bark, famotidine, flecainide, fluoxetine, gabapentin, magnesium, metoprolol succinate er, omega-3/dha/epa/fish oil, [id number] acid, vit c,u-ol-argyu-lutein-zeaxan, rosuvastatin, solifenacin, topiramate, warfarin, and warfarin. EXAM: BP 148/81 Pulse 65 Ht 165.1 cm (5' 5 ) Wt 104.3 kg (230 lb) BMI 38.27 kg/m? MSPT Results Flowsheet Row Office Visit from 03/23/2024 in [facility] Processing Speed Total Number Correct 42 Processing Speed Z score 0.5 Dominant hand Right hand MDT Left Hand Time 27.56 MDT Right Hand Time 27.75 Walking Speed Test (25 feet) 12.98 Memory Z Score -- Hair, skin, nails, and joints were normal. Prominent lymphedema in the bilateral lower extremities. Neck was supple without Lhermitte's phenomenon. The patient was alert and oriented to person, place, and time with normal language, attention and concentration, recent and remote memory, praxis, and intellectual function. Affect was normal. The patient did not appear depressed. RESULTS: 05/04/2024 EMG: generalized sensorimotor axonal polyneuropathy, chronic right L3-S1 radiculopathy 05/02/2024 7T MRI Brain WWO IVCON: IMPRESSION: Scattered intracranial white matter lesions which are nonspecific. Greater than three new T2 lesions and no new enhancing lesions. Presence of new lesions is nonspecific given 7 Tricia examination the current study would be expected to have higher sensitivity for subtle white matter changes. No (more content not included)... [facility] 04-11-2025 Note Security Supervisor faxed epi s note from visit on 04/11/2025 to [facility] kuldip at [phone]. [facility] 04-11-2025 History of Present illness Narrative CC: S/P left medial leg wounds, left periprosthetic tibial fracture Subjective: HPI DOS: 01/13/25 - operative stabilization left periprosthetic proximal tibia fracture (3 months out) Keila Allen is a 69 y.o. female who is here today for a follow-up visit. We have been following her left medial leg wounds closely and at her last appointment, Mirragen was applied. Previous cultures were significant for E coli, actinotignum schaalii, and corynebacterium striatum. Patient is currently not on antibiotics however will be starting oral antibiotics per infectious disease. Patient is weight-bearing as tolerated and states she is able take some steps but is weak. Past Medical, Surgical, and Family Histories: were reviewed during this visit. Social History Occupational History Not on file Tobacco Use Smoking status: Never Smokeless tobacco: Never Vaping Use Vaping status: Never Used Substance and Sexual Activity Alcohol use: Yes Alcohol/week: 1.0 standard drink of alcohol Types: 1 Glasses of wine per week Comment: occasionally Drug use: Never Sexual activity: Defer Comment: not reviewd at this visit Medications & allergies: were reviewed at during this visit. Objective: Physical Exam General: Well-developed well-nourished Mentation: Alert and oriented. Extremity Exam: Left Knee Inspection: incisions overall healing with small dry eschars over the three medial tibia incisions, no erythema, no drainage Knee ROM 0-120 degrees Neurovascular Motor: intact EHL, FHL, DF, PF Sensation intact globally IMAGING: X-ray left tibia personally reviewed and identify maintained alignment tibia fracture with stable implants Diagnosis: Periprosthetic fracture of proximal end of tibia, subsequent encounter Leg wound, left, subsequent encounter Plan: WBAT left lower extremity Antibiotics per infectious disease - plan to resume oral antibiotics with doxycycline Simple dry dressing as needed for drainage Compression wrap for swelling control Consider prophylactic fixation of the femur once she recovers further from her most recent surgery Hbg improved to 12.0 Follow up in 2 months with xrays left tibia Diandra Low PA-C MDM: post-operative global ORTHOPAEDIC SURGERY ATTENDING NOTE I, Renan Delaney MD, personally performed the face to face evaluation on this patient. I discussed with the patient and confirmed the accuracy and completeness of the aforementioned history prepared by the advance practice provider, and I personally performed the clinical examination of the patient. I discussed the treatment plan with the patient. THE PATIENT'S LEFT LEG WOUNDS ARE NOW HEALED. SHE IS STILL VERY WEAK. SHE WAS NOT ABLE TO STAND FOR A LONG STANDING BONE ALINGEMENT FILM. I AGAIN DISCUSSED PROPHYLACTIC NAILING OF HER LEFT FEMUR ABOVE HER EXISTING FEMORAL PLATE. SHE IS NOT READY TO PROCEED WITH THIS AT THIS TIME, ALTHOUGH SHE WOULD BE INTERESTED AT A FUTURE TIME. I WILL SEE HE PATIENT BACK IN THE OFFICE IN TWO MONTHS WITH A LONG STANDING BONE ALINGEMENT FILM IF THE PATIENT IS ABLE TO STAND. IN THE INTERIM THE PATIENT SHOULD WORK ON WEIGHT REDUCTION, STRENGTHENING, HER HEMOGLOBIN SHOULD BE IN A NORMAL RANGE PRIOR TO ANY ELECTIVE SURGERY. FOLLOW-UP IN 2 MONTHS OUTLINED ABOVE. EARLIER IF THERE ARE ANY PROBLEMS. RENAN DELANEY MD documented in this encounter [facility] 04-11-2025 Note Division of Infectio us Diseases - Outpatient Clinic Note Patient name: Keila Allen Patient Today's Date and Time: 04/11/2025, 12:11 PM Primary Care Physician: Bryant Guillen MD Reason for consultation / Chief complaint: Left lower extremity infection History of Present Illness: This is a 69-year-old female patient who is presenting as a new patient to our service for evaluation of infection of her left lower extremity. She had been hospitalized in December 2024 after suffering from a fall. She had developed left knee pain, and she was found to have a left proximal tibial periprosthetic fracture and fibular fracture. She underwent an open reduction with internal fixation of the tibia. She had been [facility] to a [facility] facility. She had been following up with orthopedic surgery in the outpatient setting, and when she presented to the office on March 02, 2025, she was found to have purulent drainage from her proximal and medial wounds. X-rays were obtained that showed an overall stable alignment of the periprosthetic fracture. She underwent aspiration from the left proximal medial wound, and cultures obtained showed E. coli, corynebacterium, and actinomyces. She was prescribed treatment with oral doxycycline and ciprofloxacin. She is following up with our service today to evaluate for any change of symptoms. She is present today with her sister. She reports she completed the antibiotics approximately 2 weeks ago on March 27, 2025. She is currently residing at a [facility] facility. She denied having any fevers, chills, chest pain, shortness of breath, abdominal pain, nausea, vomiting, or diarrhea. She suffers from lymphedema in the left lower extremity. She reports intermittent pain in the incisions. She also reports pain in the medial aspect of the left knee. She also reports previously suffering from a fracture of the left femur and had surgery in May to correct this. She then had her knee operated on in mid-October. She reports she did have bilateral knee replacements originally in 2014. She also underwent a cholecystectomy approximately 30 years ago. She underwent a tonsillectomy 20 to 30 years ago. She reports she has suffered from longstanding bilateral lower extremity lymphedema. She also has a history of frequent falls and has seen multiple different neurologist to diagnose this, but there has not yet been a diagnosis found. She does not have any diabetic history, but she does suffer from chronic kidney disease stage IIIb and atrial fibrillation. She continues on warfarin for treatment of this. She reports she has had atrial fibrillation for 30 to 40 years. Past Medical History: Medical History[1] Past Surgical History: Surgical History[2] Medications: Social History: Social History Socioeconomic History Marital status: Single Spouse name: Not on file Number of children: Not on file Years of education: Not on file Highest education level: Not on file Occupational History Not on file Tobacco Use Smoking status: Never Passive exposure: Never Smokeless tobacco: Never Substance and Sexual Activity Alcohol use: Yes Drug use: Not Currently Sexual activity: Not on file Other Topics Concern Not on file Social History Narrative Not on file Social Drivers of Health Financial Resource Strain: Medium Risk (01/13/2025) Received from [employer] Overall Financial Resource Strain (CARDIA) Difficulty of Paying Living Expenses: Somewhat hard Food Insecurity: No Food Insecurity (03/21/2025) Received from [employer] Hunger Screening Within the past 12 months we worried whether our food would run out before we got money to buy more.: Never True Within the past 12 months the food we bought just didn't last and we didn't have money to get more.: Never True Transportation Needs: No Transportation Needs (01/13/2025) Received from [employer] PRAPARE - Transportation Lack of Transportation (Medical): No Lack of Transportation (Non-Medical): No Physical Activity: Inactive (08/09/2023) Received from [employer] Exercise Vital Sign Days of Exercise per Week: 0 days Minutes of Exercise per Session: 0 min Stress: No Stress Concern Present (08/09/2023) Received from [employer] [place] [employer] - Occupational Stress Questionnaire Feeling of Stress : Not at all Social Connections: Moderately Isolated (08/09/2023) Received from [employer] Social Connection and Isolation Panel [NHANES] Frequency of Communication with Friends and Family: More than three times a week Frequency of Social Gatherings with Friends and Family: More than three times a week Attends Yazidism Services: More than 4 times per year Active Member of Clubs or Organizations: No Attends Club or Organization Meetings: Never Marital Statu (more content not included)... [facility] 03-21-2025 History of Present illness Narrative Images from the original note were not included. CC: S/P left medial leg wounds, left periprosthetic tibial fracture Subjective: HPI DOS: 01/13/25 - operative stabilization left periprosthetic proximal tibia fracture - 9.5 week(s) out Keila Allen is a 69 y.o. female who is here today for a follow-up visit. We have been following her left medial leg wounds closely and at her last appointment, Mirragen was applied. Previous cultures were significant for E coli, actinotignum schaalii, and corynebacterium striatum. She does have outpatient follow up with the Infectious Disease team at [facility] next week. Patient is partial weightbearing LLE 60lbs. She is on chronic Coumadin. She does note some edema in her legs based on recent hot weather and humidity. Past Medical, Surgical, and Family Histories: were reviewed during this visit. Social History Occupational History Not on file Tobacco Use Smoking status: Never Smokeless tobacco: Never Vaping Use Vaping status: Never Used Substance and Sexual Activity Alcohol use: Yes Alcohol/week: 1.0 standard drink of alcohol Types: 1 Glasses of wine per week Comment: occasionally Drug use: Never Sexual activity: Defer Comment: not reviewd at this visit Medications & allergies: were reviewed at during this visit. Objective: Physical Exam General: Well-developed well-nourished Mentation: Alert and oriented. Extremity Exam: Left Knee Inspection: Mirragen that was previously applied was gently removed from the wound bases today ROM: Extension lacks 5 degrees of active extension Flexion 100 degrees Neurovascular Motor: intact EHL, FHL, DF, PF IMAGING: no new images taken at today's visit. Diagnosis: Periprosthetic fracture of proximal end of tibia, subsequent encounter Leg wound, left, subsequent encounter - left Plan: - Weight bearing: advance to weight bearing as tolerated - Range of motion: range of motion as tolerated - Wound care: Daily non adherent dressing may be performed daily as needed to left medial leg wounds. - Antibiotics: Currently on ciprofloxacin as well as doxycycline. Again she has a follow-up appointment with [facility] Infectious Disease - Physical Therapy: Continue therapy at [facility] - DME supplies: did discuss potential for benefit with use of an upright rolling walker - Follow up 2-3 weeks with XRs to include AP, lateral and internal and external oblique views of the tibia MADELEINE KELLY PA-C Based on the following criteria: POST OP GLOBAL ORTHOPAEDIC SURGERY ATTENDING NOTE I, Renan Delaney MD, personally performed the face to face evaluation on this patient. I discussed with the patient and confirmed the accuracy and completeness of the aforementioned history prepared by the [facility] practice provider, and I personally performed the clinical examination of the patient. I discussed the treatment plan with the patient. HER LEFT MEDIAL ANKLE WOUNDS ARE IMPROVING. I WILL SEE HER BACK OUTLINED ABOVE. ADDITION BONE ALIGNMENT FILM IF THE PATIENT IS ABLE TO DO THIS. A CRITICAL POWER TECHNICIAN I AM INTERESTED IN PROPHYLACTIC NAILING OF HER LEFT FEMUR ABOVE HER PLATE, I BELIEVE SHE IS AT HIGH RISK FOR PERIPROSTHETIC FRACTURE. WE HAVE DISCUSSED THIS AT LENGTH IN THE PAST. THE PATIENT ALSO HAS SIGNIFICANT ANEMIA OF CHRONIC DISEASE, AND THIS WILL NEED TO BE CORRECTED PRIOR TO ANY ELECTIVE SURGERY. HER CURRENT HEMOGLOBIN IN DECEMBER WAS 8.1. SHE WILL NEED REFERRAL TO BLOOD MANAGEMENT. RENAN DELANEY MD documented in this encounter [facility] 03-17-2025 Telephone encounter Note Keila left a voicemail asking ot schedule Mammogram - no order in chart . Dexa scan order being faxed over [facility] 03-17-2025 Miscellaneous Notes Keila left a voicemail asking ot schedule Mammogram - no order in chart . Dexa scan order being faxed over documented in this encounter [facility] 03-14-2025 History of Present illness Narrative Images from the original note were not included. CC: S/P left periprosthetic proximal tibia fracture Subjective: HPI DOS: 01/13/2025 8.5 week(s) out Keila Allen is a 69 y.o. female who is here today for a follow-up visit. At her last office appointment, her eschars were probed with silver nitrate and demonstrated purulence from the proximal and middle wounds. Cultures were obtained and resulted positive for E coli, actinotignum schaalii, and corynebacterium striatum. Infectious Disease was consulted for assistance with antibiotic coverage given possible antibiotic interaction with her flecainide. Ultimately, the patient was started on ciprofloxacin and she is also on doxcycline. She is not currently on an IV antibiotic regimen. She has an upcoming appointment with Elise Orta on 04/03/25. She presents to the office today to discuss her culture results and for a clinical check. She has been partial weight-bearing 60 lb or less on the left lower extremity. She has been performing daily wet-to-dry dressing changes with half strength Dakin's to her lower extremity wounds. She is chronically on Warfarin for her Atrial fibrillation. Past Medical, Surgical, and Family Histories: were reviewed during this visit. Social History Occupational History Not on file Tobacco Use Smoking status: Never Smokeless tobacco: Never Vaping Use Vaping status: Never Used Substance and Sexual Activity Alcohol use: Yes Alcohol/week: 1.0 standard drink of alcohol Types: 1 Glasses of wine per week Comment: occasionally Drug use: Never Sexual activity: Defer Comment: not reviewd at this visit Medications & allergies: were reviewed at during this visit. Objective: Physical Exam General: Well-developed well-nourished Mentation: Alert and oriented. Extremity Exam: left LE: Inspection: The 3 left lower extremity wounds are benign-appearing with pink healthy tissues and minor serosanguineous drainage. -Proximal wound : 1.5cm x 1cm x 1cm -Middle wound: 1.5cm x 1cm x 1cm -Lower wound: 1.5cm x 2cm x 1cm Her surrounding erythema has improved and there is no evidence of purulent drainage. See images below. ROM knee: Flex: 110 Ext: lacks 20 degree of extension Compartments edematous yet compressible IMAGING: None performed today Diagnosis: Closed displaced supracondylar fracture of distal end of left femur without intracondylar extension with routine healing, subsequent encounter Other closed fracture of proximal end of left tibia with routine healing, subsequent encounter Open leg wound, left, initial encounter Plan: - Continue partial weight-bearing 60 lb or less to left lower extremity, okay to mobilize with assistive devices as able. - Range of motion: range of motion as tolerated - Wound care: Daily superficial dry dressing change, leaving the adaptic in place. Do not get wounds wet. - Anticoagulation: Chronically on Coumadin. - Antibiotics: continue doxycycline and ciprofloxacin per ID recommendations. - Physical Therapy: Continue therapy at [facility]. - Follow up in the orthopedic office in 1 week for a wound check. JACQUES ALEXANDERC [facility] ORTHOPAEDIC SURGERY ATTENDING NOTE I, Renan Delaney MD, personally performed the face to face evaluation on this patient. I discussed with the patient and confirmed the accuracy and completeness of the aforementioned history prepared by the [facility] practice provider, and I personally performed the clinical examination of the patient. I discussed the treatment plan with the patient. THE PATIENT'S LEFT ANTEROMEDIAL KNEE WOUNDS LOOK VERY GOOD. THERE IS NO ODOR. THERE IS NO DRAINAGE ON THE PROXIMAL 2 WOUNDS AND SLIGHT DRAINAGE FROM THE DISTAL WOUND. THERE IS NO TRACKING. THEY ARE PINK AND GRANULATING. ALL THE WOUNDS WERE TREATED WITH MIRRAGEN. I WILL SEE HER BACK FOR WOUND CHECK IN 1 WEEK'S TIME. THE CRITICAL POWER TECHNICIAN GOAL AFTER WE GET HER MEDIAL TIBIAL WOUNDS TO HEAL IS TO DETERMINE A TIME TABLE FOR FULL WEIGHT-BEARING. SHE ALSO NEEDS TO HAVE HER HEMOGLOBIN CONNECTED TO A NORMAL RANGE. ONCE THOSE ARE DONE I WOULD STRONGLY RECOMMEND PROPHYLACTIC FIXATION OF HER PROXIMAL FEMUR, WITH HER PREVIOUS GASTRIC BYPASS, MULTIPLE PREVIOUS FRAGILITY FRACTURES, SHE IS AT HIGH RISK FOR A FELICITAS IMPLANT FRACTURE IN THE FUTURE. RENAN DELANEY MD documented in this encounter [employer] 03-07-2025 Miscellaneous Notes ----- Message from ALEXANDRU Marquez sent at 03/07/2025 3:51 PM EDT ----- Regarding: RE: new patient referral No problem! The doxycycline should offer good coverage for now, as this will cover the acintotignum and corynebacterium, and then for Cipro (as long as no contraindications to fluoroquinolone use), you can proceed with 500 mg BID. The Cipro would offer good bioavailability, but we can also look at IV antibiotics depending on severity. ----- Message ----- From: Madeleine Kelly PA-C Sent: 03/07/2025 3:49 PM EDT To: ALEXANDRU Miller Subject: RE: new patient referral Thanks! That would be great! We will send over referral information this afternoon. As far as antibiotics in the mean time, she's been on doxycycline since last week - I see that the anaerobic cultures are sensitive to ciprofloxacin. Is there a dosing regiment that you would recommend in the meantime? Also with the Corynebacterium striatum with a Gram stain, does that normally cover that as well? ----- Message ----- From: ALEXANDRU Miller Sent: 03/07/2025 3:31 PM EDT To: Madeleine Kelly PA-C; Angela Garnica Subject: RE: new patient referral Arthur, The soonest we can probably do is March 23, so we can try to get that scheduled then if that works.Thank you! ----- Message ----- From: Madeleine Kelly PA-C Sent: 03/07/2025 2:30 PM EDT To: ALEXANDRU Miller; Kiet Ruvalcaba Subject: new patient referral Hi wonderful ID friends! Just wondering if there is any providers that you know of who would be able to see a new patient referral from Dr. Delaney sooner rather than later. In brief, she underwent operative stabilization of a periprosthetic tibial fracture about 8 weeks ago and at her office appointment last week, she had some medial leg eschars that were noted to have purulent drainage and these were debrided by Dr. Delaney in the office. Aspirate cultures were sent (see attached results) and she was started on doxycycline at that time but based on results I'm not sure that's enough. She is currently at [facility]. I appreciate any help you can offer : ) ----- Message ----- From: Lab, Background User Sent: 03/02/2025 9:59 PM EDT To: Madeleine Kelly PA-C Patient informed of positive cultures from recent wound aspirate. I did contact [facility] for earliest timing of new patient appointment which is anticipated on March 23. Patient is agreeable to the referral and mobile phone number listed is her best contact information. She was currently at [facility]. She was overall doing well and states the dressing changes are going well. No fever or chills or other fatigue. We will continue her on doxycycline and start her on ciprofloxacin 500 mg p.o. b.i.d. which she has taken in the past and tolerated well. Will also start her on Bacid for probiotic benefit with multiple antibiotics. Interaction noted with cardiac medication flecainide and ciprofloxacin - will obtain baseline EKG at facility. Will also attempt to discuss medication changes with house medical provider, Dr. Tavera/libia HEAD CORRECTION OFFICER documented in this encounter [facility] 03-07-2025 Telephone encounter Note ----- Message from ALEXANDRU Maqruez sent at 03/07/2025 3:51 PM EDT ----- Regarding: RE: new patient referral No problem! The doxycycline should offer good coverage for now, as this will cover the acintotignum and corynebacterium, and then for Cipro (as long as no contraindications to fluoroquinolone use), you can proceed with 500 mg BID. The Cipro would offer good bioavailability, but we can also look at IV antibiotics depending on severity. ----- Message ----- From: Madeleine Kelly PA-C Sent: 03/07/2025 3:49 PM EDT To: ALEXANDRU Miller Subject: RE: new patient referral Thanks! That would be great! We will send over referral information this afternoon. As far as antibiotics in the mean time, she's been on doxycycline since last week - I see that the anaerobic cultures are sensitive to ciprofloxacin. Is there a dosing regiment that you would recommend in the meantime? Also with the Corynebacterium striatum with a Gram stain, does that normally cover that as well? ----- Message ----- From: ALEXANDRU Miller Sent: 03/07/2025 3:31 PM EDT To: Madeleine Kelly PA-C; Angela Garnica Subject: RE: new patient referral [facility], The soonest we can probably do is March 23, so we can try to get that scheduled then if that works.Thank you! ----- Message ----- From: Madeleine Kelly PA-C Sent: 03/07/2025 2:30 PM EDT To: ALEXANDRU Miller; Kiet Ruvalcaba Subject: new patient referral Hi wonderful ID friends! Just wondering if there is any providers that you know of who would be able to see a new patient referral from Dr. Delaney sooner rather than later. In brief, she underwent operative stabilization of a periprosthetic tibial fracture about 8 weeks ago and at her office appointment last week, she had some medial leg eschars that were noted to have purulent drainage and these were debrided by Dr. Delaney in the office. Aspirate cultures were sent (see attached results) and she was started on doxycycline at that time but based on results I'm not sure that's enough. She is currently at [facility]. I appreciate any help you can offer : ) ----- Message ----- From: Lab, Background User Sent: 03/02/2025 9:59 PM EDT To: Madeleine Kelly PA-C [facility] 03-07-2025 Telephone encounter Note Patient informed of positive cultures from recent wound aspirate. I did contact [facility] for earliest timing of new patient appointment which is anticipated on March 23. Patient is agreeable to the referral and mobile phone number listed is her best contact information. She was currently at [facility]. She was overall doing well and states the dressing changes are going well. No fever or chills or other fatigue. We will continue her on doxycycline and start her on ciprofloxacin 500 mg p.o. b.i.d. which she has taken in the past and tolerated well. Will also start her on Bacid for probiotic benefit with multiple antibiotics. [facility] 03-07-2025 Telephone encounter Note Interaction noted with cardiac medication flecainide and ciprofloxacin - will obtain baseline EKG at facility. Will also attempt to discuss medication changes with [facility] medical provider, Dr. Tavera/libia HEAD CORRECTION OFFICER [facility] 03-07-2025 Miscellaneous Notes I CALLED [facility] AND SPOKE WITH JESSICA DAVILA. THE FACILITY DID NOT GET TRANSPORTATION FOR KEILA'S APPT TODAY. AN APPT WAS MADE FOR 03/14/25 AT 1115A FOR KEILA. JESSICA WILL NOTIFY THE TRANSPORTATION PERSON AT THE FACILITY TO ARRANGE FOR THE CYLINDER HANDLER. documented in this encounter [facility] 03-07-2025 Telephone encounter Note I CALLED [facility] AND SPOKE WITH JESSICA DAVILA. THE FACILITY DID NOT GET TRANSPORTATION FOR KEILA'S APPT TODAY. AN APPT WAS MADE FOR 03/14/25 AT 1115A FOR KEILA. JESSICA WILL NOTIFY THE TRANSPORTATION PERSON AT THE FACILITY TO ARRANGE FOR THE CYLINDER HANDLER. [facility] 03-02-2025 History of Present illness Narrative Images from the original note were not included. CC: S/P left periprosthetic proximal tibia fracture Subjective: HPI DOS: 01/13/2025 7 week(s) out Keila Allen is a 69 y.o. female who is here today for a follow-up visit. At her last appointment, she was continue with partial weight-bearing left lower extremity up to 60 lb with assistance from therapy. Doppler ultrasound performed at that time was also negative for DVT. She returns for clinical and radiographic check. She continues on Coumadin for anticoagulation. She notes some drainage from the medial leg wounds, proximal and middle and also some odor. She was not currently on antibiotics. She has been attempting to put some weight on her left leg and is working on range of motion. She notes some squeezing type pain to the left leg which is worsening in the past week. She does note that she has been able to get full extension with use of a NuStep. Denies fever/chills/numbness/tingling Past Medical, Surgical, and Family Histories: were reviewed during this visit. Social History Occupational History Not on file Tobacco Use Smoking status: Never Smokeless tobacco: Never Vaping Use Vaping status: Never Used Substance and Sexual Activity Alcohol use: Yes Alcohol/week: 1.0 standard drink of alcohol Types: 1 Glasses of wine per week Comment: occasionally Drug use: Never Sexual activity: Defer Comment: not reviewd at this visit Medications & allergies: were reviewed at during this visit. Objective: Physical Exam General: Well-developed well-nourished Mentation: Alert and oriented. Extremity Exam: Left Knee Inspection: Incisions as seen below Eschars were removed and wounds were probed, purulence able to be expressed from proximal and middle wounds, silver nitrate stick was also used to gently probed the wound as well as applied to the wound base, hydrogen peroxide was also used to gently rinse the wounds these were packed with saline moistened gauze covered with ABDs and Webril secured with Bakari bandage ROM: Extension 110 degrees Flexion lacks 30-40 actively, passively 20 Neurovascular Motor: intact EHL, FHL, DF, PF IMAGING: I personally viewed X-ray images of left tibia and left femur, which demonstrate: Overall stable alignment of the periprosthetic fracture and orthopedic implants. Will review and confirm findings with the radiologist report when available. Diagnosis: Open leg wound, left, initial encounter Closed displaced supracondylar fracture of distal end of left femur without intracondylar extension with routine healing, subsequent encounter Other closed fracture of proximal end of left tibia with routine healing, subsequent encounter Plan: - Weight bearing: Continue partial weight-bearing 60 lb or less to left lower extremity, okay to mobilize with assistive devices as able - Range of motion: range of motion as tolerated - Wound care: Wounds are to be packed on a daily basis with moist to dry dressing moistened with half-strength Dakin's solution, covered with ABD and secured with Bakari bandage Dressings can be removed and patient may shower and get the wounds wet and then dressings may be replaced Would also like patient to have chlorhexidine showers to left leg - Anticoagulation: Chronically on Coumadin Aspirate sent to lab from left proximal medial wound. We will await cultures. - Antibiotics: doxycycline 100mg BID x 7 days, we will have facility check INR every other day due to chronic use of Coumadin and possibility of change in INR - Physical Therapy: Continue therapy at [facility] - Follow up 1 weeks for wound check MADELEINE KELLY PA-C Based on the following criteria: POST OP GLOBAL ORTHOPAEDIC SURGERY ATTENDING NOTE THE PATIENT HAS SEVERAL AREAS OVER THE MEDIAL INCISIONS THAT HAVE SOME ODOR. THESE WERE DEBRIDED. CULTURES WERE TAKEN OF FLUID ON 1 OF THESE, THE MORE PROXIMAL OPEN WOUND. THE WOUNDS WERE PROBED AND NO DEEP COMMUNICATION TO THE KNEE MEDIAL IMPLANT COULD BE APPRECIATED. NEVERTHELESS THIS IS A CAUSE FOR CONCERN. THE WOUNDS WERE PACKED OPEN. WRITTEN INSTRUCTIONS FOR SENT BACK TO HER NURSING FACILITY TO PACKED THE WOUNDS OPEN DAILY WITH DAKIN'S. THE PATIENT WILL BE GIVEN ORAL ANTIBIOTIC, AND SHE WILL HAVE A WOUND CHECK IN MY [facility]YSIC[facility]IN[facility] IN 1 WEEK'S TIME. FROM AN ACTIVITY LEVEL SHE SHOULD CONTINUE PARTIAL WEIGHT-BEARING BEFORE. I HAD HER WALK FOR ME IN THE OFFICE AND SHE STILL VERY WEAK, REQUIRING ASSISTANCE TO STAND. SHE COULD ONLY TAKE A FEW STEPS BEFORE SHE GOT TIRED. THE PATIENT SHOULD ALSO FOLLOW UP WITH ME February OR February SO I CAN PERSONALLY EVALUATE HER WOUNDS AT THAT POINT. RENAN DELANEY MD documented in this encounter [facility] 02-22-2025 Evaluation + Plan note Associated Problem(s): Urge incontinence Myrbetriq has a potential interaction with flecainide. She will try taking Gemtesa alone. If symptoms persist, she can restart oxybutynin and take a combination of the 2 medications. We will have her meet with 1 of the doctors in 2 months or so. She will call sooner if any problems. She would like to transfer her care to 1 of the [facility] physicians. [facility] 02-22-2025 Miscellaneous Notes Associated Problem(s): Urge incontinence Myrbetriq has a potential interaction with flecainide. She will try taking Gemtesa alone. If symptoms persist, she can restart oxybutynin and take a combination of the 2 medications. We will have her meet with 1 of the doctors in 2 months or so. She will call sooner if any problems. She would like to transfer her care to 1 of the [facility] physicians. documented in this encounter [facility] 02-22-2025 History of Present illness Narrative Images from the original note were not included. [id number] [place] [address] [address] [facility] [id number] Patient: Keila Aleln Date of : 1955 Encounter Date: 02/22/2025 History of Present Illness: The patient is a 69 y.o. female, an established patient, and is here for Hospital follow-up. She has a history of enuresis and urge incontinence. She was last seen by Dr. Smith 01/27/2023. She was recently admitted to the hospital for knee pain after a fall. Urine culture 01/14/2025 was positive for 50-100,000 Klebsiella. She was treated with Bactrim which was renally dosed. She states that she does not get frequent UTIs. She denies any residual symptoms following antibiotics. She states that she is mainly here to discuss her issues with incontinence. Sometimes she has urge incontinence and other times it occurs without sensation. She is currently in a wheelchair following her recent orthopedic procedures and is voiding into a brief. She is currently [facility]. She is taking oxybutynin XL 15mg. She is going through 5-6 pads a day. She sees Dr. Camacho (Nephrology). Her last Cr was 1.55. She feels she empties her bladder. She reports that she had a catheter in while she was in the hospital and was checked to make sure she emptied well after it was removed. Urinalysis today: No results for input(s): EXTPOCURCO , EXTPOCURCH , EXTPOCAPP , EXTPOCURBS , EXTPOCURBIL , EXTPOCUKET , EXTPOCUSPG , EXTPOCUHGB , EXTPOCUPRO , EXTPOCUURO , EXTPOCULEU , EXTPOCUNIT , EXTPOCUWBC , EXTPOCUBLD , EXTPOCURBC , EXTPOCUCRY , EXTPOCUBAC , EXTPOCUTREP , EXTPOCUPH in the last 72 hours. Last BUN and creatinine: Lab Results Component Value Date BUN 32 (H) 01/18/2025 Lab Results Component Value Date CREATININE 1.55 (H) 01/18/2025 Past Medical, Family, and Social History Update: The following portions of the patient's history were reviewed and updated as appropriate: allergies, current medications, past family history, past medical history, past social history, past surgical history and problem list. Past Medical History: Diagnosis Date Anemia iron deficiency Arthritis Asthma Atrial fibrillation Atrial fibrillation (HCC) [I48.91] 07/17/2017 Bilateral shoulder pain 05/04/2019 Bladder disorder 11/10/2016 Breast injury Deep bruise 2018 Cataract Cervical disc disorder CKD (chronic kidney disease) renal insuff/follows with Dr Camacho never on dialysis Dental disease chipped Depression Depression with anxiety 10/27/2016 Disc disorder cervical, thoracic, lumbosacral Dislocation of left knee, initial encounter 11/16/2024 Dry eye syndrome 07/28/2016 Edema legs Falls frequently Gastrointestinal hemorrhage 10/05/2022 Added automatically from request for surgery [id number] GERD (gastroesophageal reflux disease) Giant cell arteritis ([facility]) 07/20/2018 Hyperlipidemia Hypertension Low back pain Lumbar disc disorder LVH (left ventricular hypertrophy) AND DIASTOLIC DYSFUNCTION Lymphedema Macular drusen, bilateral 07/28/2016 Migraine Mononucleosis Neuropathy Obesity h/o bariatric surgery 01/2018, lost >100# Osteoarthritis of cervical spine 02/24/2019 Posterior vitreous detachment of right eye 03/03/2019 Presbyopia 03/18/2019 Prolonged Q-T interval on ECG 12/2018 Rotator cuff arthropathy of right shoulder 09/16/2019 Added automatically from request for surgery [id number] Sleep apnea uses c pap/states doesn`t use every night Status post bariatric surgery 02/24/2019 Thoracic disc disorder Tinnitus Urinary incontinence Urinary urgency UTI (urinary tract infection) 03/18/2022 Visual impairment glasses Vitreous floaters of right eye 03/03/2019 Vitreous syneresis of left eye 03/03/2019 White matter abnormality on MRI of brain 02/24/2019 Past Surgical History: Procedure Laterality Date BIOPSY ARTERY TEMPORAL Bilateral 07/28/2018 Performed by Jany Mesa MD at [facility] BIOPSY MUSCLE LOWER EXTREMITY Right 04/05/2019 Performed by Zaida Blue MD at [facility] COLONOSCOPY Left Lateral 10/07/2022 Performed by Gissell Ye MD at [facility] DILATION AND CURETTAGE OF UTERUS 2016 EGD Left Lateral 10/07/2022 Performed by Gissell Ye MD at [facility] FEMUR FRACTURE SURGERY Left 05/2024 broke femur in 2 places and required a harjit placement FEMUR SURGERY Left 10/2024 Femur dislocation GALLBLADDER SURGERY 1979`s HYSTEROSCOPY 2016 LAPAROSCOPIC SLEEVE GASTRECTOMY/ CLOSURE DIAPHRAGMATIC CRUA N/A 07/28/2018 Performed by Zaida Gil MD at [facility] NASAL SEPTUM SURGERY 1989`s OPEN REDUCTION INTERNAL FIXATION FEMUR Left 06/03/2024 Performed by Rafat Sepulveda MD at [facility] OPEN REDUCTION INTERNAL FIXATION TIBIA WITH STRESS EXAMINATION Left 01/13/2025 Performed by Renan Delaney MD at [facility] REPLACEMENT TOTAL KNEE Bilateral 09/2014 REVISION TOTAL JOINT KNEE POLY EXCHANGE Left 11/17/2024 Performed by Nafisa Navarro MD at [facility] TIBIA FRACTURE SURGERY Left 12/2024 Tibia fracture requiring harjit placement TONSILLECTOMY x 2 as a child and second time in her 40`s Family History Adopted: Yes Problem Relation Age of Onset Cancer Mother Diabetes Mother Breast cancer Mother Metastisis various systems Current Outpatient Medications Medication Sig Dispense Refill acetaminophen (TYLENOL EXTRA STRENGTH) 500 mg tablet Take 2 tablets (1,000 mg total) by mouth every 8 (eight) hours. calcium carbonate-vitamin D3 (OSCAL 500 + D) 500 mg (1,250 mg) - 200 units per tablet Take 1 tablet by mouth in the morning and 1 tablet in the evening. Take with meals. calcium citrate (CALCITRATE) 200 mg (950 mg) tablet Take 2 tablets (400 mg total) by mouth in the morning and 2 tablets (400 mg total) at noon and 2 tablets (400 mg total) in the evening. Take with meals. cholecalciferol, vitamin D3, 2,000 units tablet Take 1 tablet (2,000 Units total) by mouth in the morning. DULoxetine (CYMBALTA) 60 mg capsule Take 1 capsule (60 mg total) by mouth in the morning. ezetimibe (ZETIA) 10 mg tablet Take 1 tablet (10 mg total) by mouth in the morning. ferrous sulfate 325 (65 FE) mg tablet Take 1 tablet (325 mg total) by mouth daily with breakfast. flecainide (TAMBOCOR) 100 mg tablet Take 1 tablet (100 mg total) by mouth every 12 (twelve) hours. gabapentin (NEURONTIN) 100 mg capsule Take 1 capsule (100 mg total) by mouth 3 (three) times a day. melatonin 1 mg tablet,chewable Chew 3 mg and swallow nightly. metoprolol tartrate (LOPRESSOR) 25 mg tablet Take 0.5 tablets (12.5 mg total) by mouth in the morning and 0.5 tablets (12.5 mg total) before bedtime. Hold for SBP less than 100 and HR less than 60. naloxone (NARCAN) 4 mg/actuation spray,non-aerosol nasal spray Administer 1 spray (4 mg total) into alternating nostrils as needed for opioid reversal. oxybutynin XL (DITROPAN XL) 15 mg 24 hr tablet take one tablet by mouth every morning 90 tablet 0 oxyCODONE (ROXICODONE) 5 mg immediate release tablet Take 1 tablet (5 mg total) by mouth every 4 (four) hours as needed for pain. pantoprazole (PROTONIX) 40 mg EC tablet Take 1 tablet (40 mg total) by mouth in the morning. rosuvastatin (CRESTOR) 5 mg tablet Take 1 tablet (5 mg total) by mouth in the evening. sennosides-docusate sodium (SENOKOT-S) 8.6-50 mg Take 2 tablets by mouth nightly. traZODone (DESYREL) 50 mg tablet Take 1 tablet (50 mg total) by mouth nightly. vit A/vit C/vit E/zinc/copper (PRESERVISION AREDS ORAL) Take 1 tablet by mouth nightly. warfarin (COUMADIN) 5 mg tablet Take 0.5-1 tablets (2.5-5 mg total) by mouth in the evening. or as directed by Natalie BAXTER (Medication Therapy Management). (Patient taking differently: Take 0.5-1 tablets (2.5-5 mg total) by mouth in the evening. or as directed by Natalie BAXTER (Medication Therapy Management) 2.5 mg Thursday, Thursday, ; Take 5mg Thursday, Thursday, Thursday, , Thursday, and Thursday. .) 90 tablet 1 vibegron (GEMTESA) 75 mg tablet Take 75 mg by mouth in the morning. 30 tablet 11 No current facility-administered medications for this visit. (All medications reviewed and updated by provider since last office visit or hospitalization) Allergies: Cephalexin, Dicloxacillin sodium, Lipitor [atorvastatin], Nifedipine, Penicillin g potassium, and Penicillins Tobacco History: Social History Tobacco Use Smoking Status Never Smokeless Tobacco Never (If patient a smoker, smoking cessation counseling offered) Social History: Social History Substance and Sexual Activity Alcohol Use Yes Alcohol/week: 1.0 standard drink of alcohol Types: 1 Glasses of wine per week Comment: occasionally Review of Systems: General: Negative for chills and fever. Cardiovascular: Negative for chest pain and shortness of breath. Gastrointestinal: Negative for constipation, diarrhea, nausea, and vomitting. Physical Exam: Ht 165.1 cm (5' 5 ) Wt 99.8 kg (220 lb) BMI 36.61 kg/m Constitutional: She appears well-developed. No distress. Pulmonary/Chest: Effort normal. No respiratory distress. Neurological: She is alert and oriented for age. Gait: wheelchair Nursing note and vitals reviewed. Assessment and Plan: Keila was seen today for follow-up. Diagnoses and all orders for this visit: Urge incontinence Urinary tract infection without hematuria, site unspecified Other orders - vibegron (GEMTESA) 75 mg tablet; Take 75 mg by mouth in the morning. Problem List Genitourinary Urge incontinence - Primary Overview 02/22/25 Persistent incontinence. Interested in a trial of Gemtesa 01/27/2023: Having dry mouth but overall her symptoms are well controlled and she does not feel side effects are bad enough to warrant changing or adjusting. Will plan to see back in 1 year. 08/07/22: Switch to oxybutynin due to insurance reasons. Overall doing well still having some leakage during the day but is much improved. Discussed methods for decreasing nocturnal enuresis including elevating legs and restarting CPAP. Increase to 15 mg, will monitor for worsening dry mouth. Follow-up in 3 months Start trospium. Discussed bladder irritants. F/u 6 weeks Current Assessment & Plan Jack has a potential interaction with flecainide. She will try taking Gemtesa alone. If symptoms persist, she can restart oxybutynin and take a combination of the 2 medications. We will have her meet with 1 of the doctors in 2 months or so. She will call sooner if any problems. She would like to transfer her care to 1 of the [place] physicians. STALIN ALLRED This note was created with the assistance of a speech recognition program. While intending to generate a timely document that accurately reflects the content of the visit, no guarantee can be provided that every grammatical or spelling mistake has been or will be identified or corrected. Thank you for your understanding. STALIN Allred 02/22/25 1254 [facility] Miscellaneous Notes Called pt to let them the next steps of their care. PT has no surgery date yet, orders faxed to [facility] in [place] at F [phone]. documented in this encounter [facility] 01-31-2025 Telephone encounter Note Called pt to let them the next steps of their care. PT has no surgery date yet, orders faxed to [facility] in [place] at F [phone]. [facility] 01-31-2025 History of Present illness Narrative Patient will need labs in 2 weeks cbc, iron studies, retic, ferritin- awaiting surgery date- will likely needed retacrit ALEXANDRU Damon 01/31/25 0943 documented in this encounter [facility] 01-31-2025 History of Present illness Narrative Images from the original note were not included. CC: S/P ORIF left proximal tibial periprosthetic fracture. Subjective: HPI DOS: 01/13/2025, 2.5 weeks out. Keila Allen is a 69 y.o. female who is here today for a follow-up visit. Patient underwent procedure as documented above on 01/13/2025; procedure was overall well tolerated, and without significant complication. Post-operatively, patient was monitored in the postanesthesia care unit prior to transfer to the floor for continued medical management and monitoring. Patient was ultimately [facility] on [facility]25. Patient returns to clinic this morning for repeat clinical/radiographic check. Patient reports that she is currently residing at [facility]. Patient reports that she is overall doing well, endorsing that she feels as though she is receiving all of her chronic medications as scheduled. The patient reports that she has maintained restrictions to the best of her ability. Patient reports that she has increasing pain in the left lower extremity, endorsing soreness about the left calf. Patient is partial weightbearing on the left lower extremity, up to 60-lb with use of a walker. Patient continues warfarin for chronic DVT prophylaxis as prescribed by their primary care provider secondary to personal history of paroxysmal atrial fibrillation. Denies fever/chills/numbness/tingling. Past Medical, Surgical, and Family [...] not reviewd at this visit Medications & allergies: Were reviewed at during this visit. Objective: Physical Exam General: Well-developed well-nourished Mentation: Alert and oriented. Extremity Exam: Left Knee Inspection: Skin C/D/I. Appreciated evidence of mild suture erythema, significant bilateral lower extremity edema appearing consistent with baseline. No evidence of ecchymoses. See photos below. Palpation: Nontender to palpation about the left knee, appreciated significant tenderness to palpation about the left calf. ROM: Flexion 95 degrees. Extension 5 degrees. Neurovascular Motor: intact EHL, FHL, DF, PF. Sensation: intact to light touch sural, saphenous, deep peroneal, superficial peroneal. 2+ DP. IMAGING: I personally viewed X-ray images of left knee, which demonstrate: retained orthopedic hardware without evidence of failure. Will review and confirm findings with the radiologist report when available. Diagnosis: Periprosthetic fracture of proximal end of tibia, subsequent encounter Pain of left calf Anemia, unspecified type Plan: Postoperative sutures removed at time of encounter; at this time, patient is permitted to shower- would recommend against soaking/submerging and scrubbing incision. Continue partial weight-bearing on the left lower extremity, up to 60 lb as tolerated with use of a walker. Continue PT/OT per facility providers. Continue supplementation with calcium/vitamin-D as able/tolerated. Continue multimodal pain management with [id number] Tylenol and oxycodone; would recommend addition of oral gabapentin, 100-mg TID as needed in an effort to better manage pain/discomfort and limit use of narcotic pain medication. Continue chronic warfarin per primary care/cardiology team secondary to personal history of paroxysmal atrial fibrillation. Ambulatory referral provided to [facility] for continued monitoring of chronic anemia. Return to clinic in 1 month for repeat clinical/radiographic check. Noted that patient's Wells score for DVT is +2, considered moderate risk. Urgent orders placed for bilateral lower extremity venous duplex ultrasounds- see interpretation below. Windy Marte PA-C MDM: [facility] ATTENDING NOTE THE PATIENT HAS SOME MILD GENU VALGUM BILATERALLY. THE INCISIONS ABOUT HER LEFT FEMUR ARE ESSENTIALLY HEALED. SHE DOES HAVE CHRONIC SWELLING AN ULTRASOUND WAS TAKEN ON THE DAY OF THE OFFICE ENCOUNTER WHICH WAS NEGATIVE. FROM MY STANDPOINT I WOULD CONTINUE PARTIAL WEIGHT-BEARING ONLY ON THE AFFECTED LEFT LEG FOR NOW. I WOULD LIKE SEE HER BACK FOR ANOTHER CLINICAL AND RADIOGRAPHIC CHECK IN ABOUT 1 MONTH'S TIME. I HAVE DISCUSSED WITH HER THAT WITH HER SEVERE BONE QUALITY, POST GASTRIC BYPASS, POST MULTIPLE PROCEDURES ON THE LEFT LOWER EXTREMITY, SHE IS AT INCREASED RISK FOR FELICITAS IMPLANT FRACTURE ABOVE THE PROXIMAL EXTENT OF HER FEMORAL PLATE. DESPITE HER LARGE SIZE, I FEEL THAT A PROPHYLACTIC FIXATION OF HER PROXIMAL FEMUR WITH A TROCHANTERIC NAIL WOULD BE INDICATED. THIS WOULD INVOLVE REMOVING SOME OF THE SCREWS ABOVE HER FEMORAL PLATE AND INSERTING AN OVER LIKE IT OVERLAPPING LONG TROCHANTERIC NAIL. THIS COULD BE AUGMENTED WITH CEMENT IN THE PROXIMAL FEMUR, AND SHE WOULD IDEALLY HAVE SOME TYPE OF STATIC LOCKING OF THE NAIL. THE PATIENT IS AGREEABLE TO PROCEED. I HAVE TOLD OVER THAT SHE NEEDS TO COMPLETELY RECOVER FROM THIS LATEST OPERATION IN HER HEMOGLOBIN SHOULD BE IN A NORMAL RANGE. HER LAST HEMOGLOBIN ON 05/20/2025 WAS 8.1. FOLLOW-UP IN 1 MONTH WITH REPEAT X-RAYS OF HER LEFT KNEE AND FEMUR. RENAN DELANEY MD documented in this encounter [employer] 01-19-2025 History of Present illness Narrative Patient admitted to [facility] 01/12/25-01/18/25 after presenting to ED following fall at home. Patient sustained a closed L proximal tibial fracture and fibular fracture. Patient underwent orthopedic open reduction fixation surgery on 01/13/25. Patient was monitored by hematology inpatient for anemia. Patient was also found to have +klebsiella UTI and required abx therapy. At discharge, new medication ordered include Bactrim SS 1 tab BID x 5 days, oxycodone 5 mg Q4H PRN pain, APAP 1000 mg Q8H, Senokot-S 2 tabs HS, Lopressor 12.5 mg BID, and Oscal 500 + vitamin D BID. INR therapeutic upon admission at 2.6. INR was reversed with vitamin K 5 mg IV x 1 on 01/13/25 for planned procedure. Warfarin therapy was resumed post-operatively on 01/14/25. INR did increase quickly after resumption, possibly d/t DDI with Bactrim. INR 2.9 prior to discharge yesterday. Patient discharged to [facility], [facility], on 01/18/25. Fax sent to facility requesting PPMM receive notification upon patient discharge home. Anticoagulation episode temporarily resolved. No future INR appts currently scheduled. Marci Montiel RP 01/19/25 1045 documented in this encounter [facility] 01-18-2025 Progress note Formatting of t his note might be different from the original. DISCHARGE PLANNING NOTE CRF sent to [facility] ([facility]) (P# ; F# ) [facility] 01-18-2025 Miscellaneous Notes DISCHARGE PLANNING NOTE CRF sent to [facility] ([facility]) (P# ; F# ) DISCHARGE PLANNING NOTE Case discussed in daily transition rounds and chart reviewed by CN. Discharge Plan remains: SNF: [facility]. Transport scheduled for 3 PM. HENS complete, discharge packet complete with BLPerez cert emailed to PTN. CN will continue to follow and is available should any further needs arise. - Melita Govea RN 01/18/25 12:37 PM Retic level checked- still very low- will order another dose of rey prior to dc - if still here tomorrow- she will need another dose of rey ALEXANDRU Damon 01/18/25 1224 DISCHARGE PLANNING NOTE BLS transport to [facility] on 01/18/25 at 1500 hours via PTN. Confirmed in [employer]. Occupational Therapy Treatment Discharge Recommendations OT Recommendations : Residential Facility 6 Clicks: Daily Activity Putting on and taking off regular lower body clothing?: Total Bathing (including washing, rinsing, drying)?: A lot Toileting, which includes using toilet, bedpan or urinal?: Total Putting on and taking off regular upper body clothing?: A little Taking care of personal grooming such as brushing teeth?: A little Eating meals?: None Scoring Daily Activity Raw Score: 14 CMS G Code Modifier: CK OT Treatment/Interventions: ADL retraining, Functional transfer training, UE strengthening/ROM, Endurance training, Cognitive reorientation, Patient/family training, Equipment eval/education, Balance, Bed mobility, Compensatory technique education, Functional activities OT Frequency: 5-6days/week OT Duration: LOS Assessment Patient Assessment Therapy Problem List: Decreased ADL status, Decreased balance, Decreased endurance, Decreased high-level ADLs, Decreased mobility, Decreased safe judgement during ADL, Decreased LE strength, Decreased cognition, Decreased self-care trans, Decreased UE ROM, Decreased UE strength Patient Response to Treatment: Slow progress, decreased activity tolerance Mood/Affect: Appropriate for circumstances Rehab Prognosis: Good, With continued OT status post acute discharge Visit RN Communication: Yes Medical Record Reviewed: Yes OT Type of Visit: Treatment Precautions Activity: ok to tx per RN Equipment: gait belt, lena RW, TY stedy, external cath (removed, RN aware), repositioning sling Weight Bearing Status: PWB L LE (40-60#) 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: Yes Other: High fall risk, anxiety/fear of falling, h/o falls Pain Assessment Pain Assessment: 0-10 Pain Score: 7 Pain Location: Leg Pain Orientation: Left Pain Intervention(s): Repositioned, Cold pack Response to Interventions: Pain unchanged, Quiet ADL / IADL Hand Dominance: Right Where Assessed: Edge of bed, Supine, bed Grooming Assistance: Standby assist Grooming Deficit: Wash/dry hands, Wash/dry face, Brushing hair Toilet/Commode Assistance: Total assist Toilet/Commode Deficit: Perineal hygiene UE Dressing Assistance: Standby assist LE Dressing Assistance: Total assist LE Dressing Deficit: Don/doff brief Other: pt required felicitas care upon writers arrival. total assist required for felicitas hygiene and for LBD to don new brief while supine. pt completed grooming tasks and UBD while sitting at EOB. SBA provided to complete. no LOB noted. Home Management - IADL Other: pt required felicitas care upon writers arrival. total assist required for felicitas hygiene and for LBD to don new brief while supine. pt completed grooming tasks and UBD while sitting at EOB. SBA provided to complete. no LOB noted. Cognition Orientation Level: Oriented X4 Other: pt is hyperverbose and demos increased anxiety with mobility tasks. Bed Mobility Rolling: Min assist Supine to Sit: Min assist Other: pt rolled R and L while supine for felicitas hygiene. min A required to complete. use of rail provided. pt completed supine to sit with HOB flat. min A required to assist with L LE during transition. pt left in the chair at end of session with call light within reach and with RN aware. ice applied. Transfers Sit to Stand: Mod assist (x2) Stand to Sit: Mod assist (x2) Bed to Chair: Total assist (ty stedy) Other: pt completed sit to stand from EOB at ty stedy. mod A x2 required to complete with bed elevated. cues provided for proper tech and safe hand placement. fair compliance demo with PWB in L LE during transfer. use of ty stedy utilized to transfer pt from bed to chair. repo sling in place for nursing staff. pt completed x2 sit to stands from recliner at RW. pt continued to require mod A x2 to complete transfers. scale placed below L LE to ensure pt is maintaining PWB restrictions. pt demo good compliance with transition and upon standing. pt very fearful upon standing at RW. Gait Other: not appropriate at this time. Balance Sitting Balance: Static: Fair (+) Sitting Balance: Dynamic: Fair Standing Balance: Static: Poor (+) Standing Balance: Dynamic: Poor Other: unsupported sitting completed while EOB for ADLs. pt able to tolerate 12 mins with SBA provided. pt stood at RW x2 to help increase standing tolerance/balance for ADLs and functional mobility. pt able to tolerate 15-20 second interventions with B UE support required from device. no major LOB noted throughout session. Activity Tolerance Endurance: Tolerates >30 minutes activity with rest breaks Other: fair overall tolerance. pt is limited by weakness, fatigue, pain, and anxiety. increased time/effort required to complete all therapy interventions. rest breaks provided as needed. 01/18/25 0930 UE ROM UE ROM exercises performed? Yes Scapular retraction x Shoulder horizontal abduction/adduction x Elbow flexion/extension x Other B UE AROM Repetitions x15 Plan Occupational Therapy Care Plan Occupational Therapy Care Plan (Active) Template: OT - Occupational Therapy Problem: Activity Tolerance Dates: Start: 01/14/25 Disciplines: OT Goal: Tolerate > 30 minutes of activity WITHOUT rest breaks Dates: Start: 01/14/25 Expected End: 02/04/25 Description: Goal Description: Disciplines: OT Outcomes Date/Time User Outcome 01/18/25 1009 ANGE Gale Progressing 01/16/25 1004 ANGE Gale Progressing Goal Note filed on 01/18/25 1009 by ANGE Gale Evaluation of progress towards goal: Problem: Bathing LB Dates: Start: 01/14/25 Disciplines: OT Goal: Patient will perform bathing LB with Minimum Assist Dates: Start: 01/14/25 Expected End: 02/04/25 Description: With use of compensatory strategies and/or AE as needed. Disciplines: OT Problem: Bathing UB Dates: Start: 01/14/25 Disciplines: OT Goal: Patient will perform bathing UB with Set-Up Dates: Start: 01/14/25 Expected End: 02/04/25 Description: Goal Description: Disciplines: OT Problem: Bed Mobility Dates: Start: 01/14/25 Disciplines: OT Goal: Patient will perform bed mobility with Stand By Assist Dates: Start: 01/14/25 Expected End: 02/04/25 Description: Goal Description: Disciplines: OT Outcomes Date/Time User Outcome 01/18/25 1009 ANGE Gale Progressing 01/16/25 1004 ANGE Gale Progressing Goal Note filed on 01/18/25 1009 by ANGE Gale Evaluation of progress towards goal: Problem: Dressing LB Dates: Start: 01/14/25 Disciplines: OT Goal: Patient will perform dressing LB with Minimum Assist Dates: Start: 01/14/25 Expected End: 02/04/25 Description: With use of compensatory strategies and/or AE as needed. Disciplines: OT Outcomes Date/Time User Outcome 01/16/25 1004 ANGE Gale Not Progressing Goal Note filed on 01/16/25 1004 by ANGE Gale Evaluation of progress towards goal: Problem: Dressing UB Dates: Start: 01/14/25 Disciplines: OT Goal: Patient will perform dressing UB with Set-Up Dates: Start: 01/14/25 Expected End: 02/04/25 Description: Goal Description: Disciplines: OT Outcomes Date/Time User Outcome 01/18/25 1009 ANGE Gale Progressing Goal Note filed on 01/18/25 1009 by ANGE Gale Evaluation of progress towards goal: Problem: Functional Mobility Dates: Start: 01/14/25 Disciplines: OT Goal: Patient will perform functional mobility with Minimum Assist Dates: Start: 01/14/25 Expected End: 02/04/25 Description: Goal Description: Disciplines: OT Problem: Grooming Dates: Start: 01/14/25 Disciplines: OT Goal: Patient will perform grooming with Modified [place] Dates: Start: 01/14/25 Expected End: 02/04/25 Description: Goal Description: Disciplines: OT Outcomes Date/Time User Outcome 01/18/25 1009 ANGE Gale Progressing 01/16/25 1004 ANGE Gale Progressing Goal Note filed on 01/18/25 1009 by ANGE Gale Evaluation of progress towards goal: Problem: Sitting Balance Dates: Start: 01/14/25 Disciplines: OT Goal: Improve balance to good Dates: Start: 01/14/25 Expected End: 02/04/25 Description: Static Dynamic Disciplines: OT Outcomes Date/Time User Outcome 01/18/25 1009 CARLOTA Gale/Murphy Progressing 01/16/25 1004 ANGE Gale Progressing Goal Note filed on 01/18/25 1009 by ANGE Gale Evaluation of progress towards goal: Problem: Standing Balance Dates: Start: 01/14/25 Disciplines: OT Goal: Improve balance to fair Dates: Start: 01/14/25 Expected End: 02/04/25 Description: Static Dynamic Disciplines: OT Outcomes Date/Time User Outcome 01/18/25 1009 CARLOTA Gale/Murphy Progressing 01/16/25 1004 ANGE Gale Not Progressing Goal Note filed on 01/18/25 1009 by CARLOTA Gale/Murphy Evaluation of progress towards goal: Problem: Strength Dates: Start: 01/14/25 Disciplines: OT Goal: Improve strength Dates: Start: 01/14/25 Expected End: 02/04/25 Description: Pt will be Mod I with BUE HEP to maximize overall strength and activity tolerance for ADL/IADL. Disciplines: OT Outcomes Date/Time User Outcome 01/18/25 1009 CARLOTA Gale/Murphy Progressing Goal Note filed on 01/18/25 1009 by ANGE Gale Evaluation of progress towards goal: Problem: Toilet Transfers Dates: Start: 01/14/25 Disciplines: OT Goal: Patient will perform toilet transfers with Minimum Assist Dates: Start: 01/14/25 Expected End: 02/04/25 Description: Goal Description: Disciplines: OT Problem: Toileting Dates: Start: 01/14/25 Disciplines: OT Goal: Patient will perform toileting with Minimum Assist Dates: Start: 01/14/25 Expected End: 02/04/25 Description: Goal Description: Disciplines: OT Outcomes Date/Time User Outcome 01/16/25 1004 ANGE Gale Not Progressing Goal Note filed on 01/16/25 1004 by ANGE Gale Evaluation of progress towards goal: Problem: Transfers Dates: Start: 01/14/25 Disciplines: OT Goal: Patient will perform transfers with Minimum Assist Dates: Start: 01/14/25 Expected End: 02/04/25 Description: Goal Description: Disciplines: OT Outcomes Date/Time User Outcome 01/18/25 1009 ANGE Gale Progressing 01/16/25 1004 ANGE Gale Not Progressing Goal Note filed on 01/18/25 1009 by ANGE Gale Evaluation of progress towards goal: Occupational Therapy Care Plan (Resolved) There are no resolved problems. Principal Problem: Closed fracture of proximal end of left tibia, unspecified fracture morphology, initial encounter Cosigned by ARABELLA Murdock at 01/18/2025 10:33 AM EDT Associated attestation - Ty Bolden OTR/L - 01/18/2025 10:33 AM EDT I have reviewed and agree with this note and education documentation for this visit. DISCHARGE PLANNING NOTE Prior [facility] (P# ; F# ) Approval #[id number] Valid for Dates: 01.18.2025-01.24.2025 Problem: Potential for Compromised Skin Integrity Goal: Skin integrity is maintained or improved Description: Patient's goal is: INTERVENTIONS 1. Perform initial skin assessment on admission and as needed 2. Turn patient every 2 hours and PRN 3. Relieve pressure to bony prominences 4. Avoid shearing 5. Keep skin clean and dry 6. Alternate a full bath with partial baths for elderly 7. Apply lotion/moisturizer on skin 8. Monitor patient's hygiene practices 9. Float heels 10. Collaborate with interdisciplinary team and initiate plans and interventions as needed Outcome: Progressing Note: Evaluation of progress towards goal: Pt remains free from new or worsening wounds Goal: Patient's nutritional intake is adequate Description: Patient's goal is: INTERVENTIONS 1. Assess and monitor food intake and supplements, patient food preferences, nausea, vomiting, labs, oral cavity (gums, teeth, tongue, mucosa), proper denture fit, and cultural beliefs 2. Monitor for signs of hypoglycemia and hyperglycemia 3. Collaborate with interdisciplinary team and initiate plan and interventions as ordered 4. Monitor patient's weight 5. Assist patient with meals/food selection 6. Assist patient with eating 7. Allow adequate time for meals 8. Provide pleasant environment during mealtime 9. Increase social contact during mealtimes 10. Plan activities to conserve energy 11. Encourage/perform oral hygiene as appropriate 12. Encourage patient to take dietary supplement as ordered 13. Collaborate with clinical gluer and wedger 14. Include patient/ patient's senior human resources representative in decisions related to nutrition Outcome: Progressing Note: Evaluation of progress towards goal: Pt orders three meals a day Problem: Urinary Incontinence Goal: Perineal skin integrity is maintained or improved Description: INTERVENTIONS 1. Assess genitourinary system, perineal skin, labs (urinalysis), and history of incontinence to include past management, aggravating, and alleviating factors 2. Keep skin clean and dry 3. Apply skin protectant 4. Develop skin care regimen 5. Provide privacy when changing patients incontinence device to maintain their dignity 6. Consider placing an indwelling catheter 7. Collaborate with interdisciplinary team and initiate plans and interventions as needed Outcome: Progressing Note: Evaluation of progress towards goal: Patient perineal skin integrity maintained Problem: Inadequate Airway Clearance Goal: Patient will maintain patent airway Description: INTERVENTIONS 1. Assess and monitor breath sounds, cough and sputum (if present) 2. Monitor respiratory rate and oxygen saturation 3. Collaborate with respiratory therapy to administer medication, oxygen, and suitable airway clearance techniques as ordered 4. Position patient for maximum ventilatory efficiency; elevate head of bed at least 30 degrees if appropriate 5. Provide adequate fluid intake to liquify secretions if appropriate 6. Suction secretions as indicated to maintain patent airway 7. Instruct patient to turn, cough, and deep breathe; encourage incentive spirometer if indicated Outcome: Progressing Note: Evaluation of progress towards goal: patient has patent airway Problem: Inadequate Breathing Pattern Goal: Patient will achieve/maintain normal respiratory rate/effort Description: Patient's goal is: INTERVENTIONS 1. Assess and monitor respiratory rate, effort, breathing pattern, and oxygenation 2. Monitor patient for restlessness, anxiety, air hunger 3. Assess physical activity tolerance 4. Assess tobacco history; ask, advise, and refer as appropriate 5. Collaborate with interdisciplinary team and initiate plans/interventions as needed Outcome: Progressing Note: Evaluation of progress towards goal: patient respiratory rate within normal limits Goal: Patient will maintain effective ventilation Description: Patient's goal is: INTERVENTIONS 1. Assess and monitor vital signs, respiratory status (to include respiratory rate, depth, effort, and breath sounds), oxygen saturation, oral mucosa, tongue, pain, and labs (ABGs). 2. Collaborate with interdisciplinary team and initiate plans and interventions as needed 3. Oxygen therapy as indicated 4. Position patient for maximum ventilatory efficiency 5. Instruct patient to turn, cough, and deep breathe; encourage incentive spirometer if indicated 6. Plan activities to conserve energy 7. Encourage ambulation/activity per patient's tolerance 8. Collaborate with patient/RT to administer medications/treatments 9. Monitor lab/diagnostic results Outcome: Progressing Note: Evaluation of progress towards goal: pt oxygen saturation within defined limits Problem: Anxiety Goal: Anxiety is at manageable level Description: Patient's goal is: INTERVENTIONS 1. Assess and monitor patient's anxiety level 2. Monitor for signs and symptoms of anxiety both physical and emotional (heart palpitations, chest pain, shortness of breath, headaches, nausea, feeling jumpy, restlessness, irritable, apprehensive) 3. Reorient/orient patient to unit/surroundings 4. Explain treatment plan 5. Explain tests/procedures prior to initiation 6. Encourage participation in care 7. Encourage verbalization of concerns/fears 8. Assess coping mechanisms 9. Assist in developing anxiety-reducing skills 10. Administer complimentary therapies 11. Manage patient's environment 12. Limit or eliminate stimulants such as caffeine and nicotine 13. Collaborate with ancillary departments 14. Include patient/patient senior human resources representative in decisions related to anxiety Outcome: Progressing Note: Evaluation of progress towards goal: patient is calm Problem: Activity Intolerance/Impaired Mobility Goal: Mobility/activity is maintained at optimum level for patient Description: Patient's goal is: INTERVENTIONS 1. Assess and monitor patient barriers to mobility and need for assistive/adaptive devices 2. Assess patient's emotional response to limitations 3. Collaborate with interdisciplinary teams and initiate plans and interventions as ordered 4. Encourage independent activity per tolerance 5. Maintain proper body alignment 6. Perform active/passive ROM as tolerated/ordered 7. Coordinate activities to conserve energy 8. Reposition patient 9. Ensure adequate rest/sleep time Outcome: Progressing Note: Evaluation of progress towards goal: ROM encouraged Problem: Inadequate Coping Goal: Demonstrates and verbalizes ability to cope effectively Description: Patient's goal is: INTERVENTIONS 1. Patient is able to verbalize feelings related to emotional state 2. Encourage verbalization of feelings, perceptions, fears, stressors, loss of loved ones 3. Encourage verbalization of problems out of their control 4. Encourage participation in care and self management 5. Inform patient of all treatment/care prior to providing care 6. Collaborate with pastoral/spiritual care, social human services assistants, mental health counselor as needed. 7. Instruct patient on diversional activities such as physical activity, distraction, and deep breathing exercises to assist with coping 8. Involve patient's senior human resources representative in care Outcome: Progressing Note: Evaluation of progress towards goal: patient able to express needs Problem: Pain Goal: Patient goal is pain score less than 4, able to rest, and participant in treatment plan as appropriate Description: INTERVENTIONS: 1. Encourage patient or legal senior human resources representative to report early pain and ask for pain medicine when needed 2. Assess pain using appropriate pain scale and include the scale used when documenting 3. Administer analgesics based on type and severity of pain and evaluate response within appropriate time frame 4. Implement non-pharmacological measures as appropriate and evaluate response 5. Consider cultural and social influences on pain and pain management 6. Notify LIP if interventions ineffective or patient reports new pain 7. Monitor vital signs including pulse ox 8. Reassess pain per policy 9. Teach patient or legal senior human resources representative interventions for comforting Outcome: Progressing Note: Evaluation of progress towards goal: Pain controlled with current medication Problem: Safety Goal: Patient will be injury free during hospitalization Description: INTERVENTIONS: 1. Assess patient's risk for falls and implement fall prevention plan of care per policy 2. Provide and maintain a safe environment 3. Proper use of double Identifiers 4. Medication administration using the 5 rights 5. Hand hygiene 6. Specimens are labeled at the bedside 7. Instruct patient/ patient senior human resources representative about use of safety devices 8. Include patient/ patient senior human resources representative in decisions related to safety Outcome: Progressing Note: Evaluation of progress towards goal: Patient remains free from any falls or injuries Problem: Infection Goal: Absence of infection during hospitalization Description: INTERVENTIONS 1. Assess and monitor for signs and symptoms of infection. 2. Monitor lab/diagnostic results. 3. Monitor all insertion sites i.e., indwelling lines, tubes and drains. 4. Monitor endotracheal (as able) and nasal secretions for changes in amount and color. 5. Administer medications as ordered. 6. Instruct and encourage patient and family to use good hand hygiene technique. 7. Identify and instruct patient/patient senior human resources representative in use of appropriate isolation precautions for identified infection/symptoms. 8. Provide and discuss with patient/patient senior human resources representative on educational MDRO sheet. 9. Encourage and monitor nutritional status daily and consult gluer and wedger if indicated. 10. Implement neutropenic guidelines as needed. Outcome: Progressing Note: Evaluation of progress towards goal: Patient remains free from any signs and symptoms of infection at this time Problem: Knowledge Deficit Goal: Patient/patient senior human resources representative demonstrates understanding of disease process, treatment plan, medications, and discharge instructions Description: INTERVENTIONS 1. Complete learning assessment and assess knowledge base 2. Provide teaching at level of understanding 3. Provide teaching via preferred learning method(s) Outcome: Progressing Note: Evaluation of progress towards goal: Patient will voice any questions or concerns during this admission Problem: Discharge Planning Goal: Discharge to post-acute care, other facility, or home with appropriate resources Description: Patient's goal is: INTERVENTIONS 1. Conduct assessment to determine patient/family and health care team treatment goals, and need for post-acute services based on payer coverage, community resources, and patient preferences, and barriers to discharge 2. Coordinate with Social work, Care Navigation, and Utilization Review to arrange appropriate level of services according to patient's needs based on patient preference and payer coverage in collaboration with the physician and health care team 3. Address psychosocial, clinical, and financial barriers to discharge as identified in assessment in conjunction with the patient/family and health care team 4. Consult appropriate ancillary services (i.e.. PT/OT/ST, etc) as needed 5. Communicate with and update the patient/family, physician, and health care team regarding progress on the discharge plan 6. Identify discharge learning needs (meds, wound care, etc). 7. Arrange for needed discharge 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 as appropriate Outcome: Progressing Note: Evaluation of progress towards goal: Patient will voice any questions or concerns about discharge during the hospital admission Problem: Moderate - High Risk Fall Score Description: Bach Fall Score of =/> 25 or indicated by [facility] Assessment Goal: Patient should be free from fall Description: Interventions: 1. Aldie to environment 2. Hourly rounds addressing the 4 P's (Pain, Positioning, Possessions, Potty) 3. Clear area of hazards (spills, clutter, electrical cords, unnecessary equipment) 4. Place equipment (bed & TV controls, call light, phone, urinal) within reach 5. Encourage patient to wear glasses and hearing aides as appropriate 6. Maintain bed in lowest position 7. Lock wheels on bed/wheelchair 8. Provide adequate lighting, including night light 9. Assess need for additional bedding, food/fluids, pain med's prior to sleep/routinely 10. Provide gripper slippers or personal non-skid footwear 11. Teach patient and patient senior human resources representative to maintain environment for safety and engage in all aspects of fall prevention program 12. Remind patient to call for help before getting out of bed 13. Initiate bed/chair/exit alarms supportive devices as appropriate, (chair wedge, no-skid floor mat, raised edge mattress, hip protectors) 14. Locate patient bed assignment for optimal visualization 15. Evaluate and identify Safe Patient Handling Equipment needs 16. Provide supervision when out of bed or chair 17. Utilize gait belt as needed to assist with ambulation 18. Place adaptive equipment (cane, walker) within reach 19. Request patient senior human resources representative bring adaptive equipment/mobility aids from home or obtain and provide as needed 20. Consult pharmacy regarding effects of med's affecting mobility, cognition, and alternatives 21. Obtain physician order for PT if risk factors associated with mobility are present 22. Obtain physician order for OT as appropriate 23. Utilize diversional activities 24. Educate patient and patient senior human resources representative how to maintain a safe environment during visitation times (notify nurse prior to leaving bedside) 25. Consider appropriateness of medical or non-biomedical engineering professor 26. Set up voiding schedule as appropriate (every 2 hours) Outcome: Progressing Note: Evaluation of progress towards goal: Patient remains free from any falls or injuries Problem: Pain Goal: Patient goal is pain score less than 4, able to rest, and participant in treatment plan as appropriate Description: INTERVENTIONS: 1. Encourage patient or legal senior human resources representative to report early pain and ask for pain medicine when needed 2. Assess pain using appropriate pain scale and include the scale used when documenting 3. Administer analgesics based on type and severity of pain and evaluate response within appropriate time frame 4. Implement non-pharmacological measures as appropriate and evaluate response 5. Consider cultural and social influences on pain and pain management 6. Notify LIP if interventions ineffective or patient reports new pain 7. Monitor vital signs including pulse ox 8. Reassess pain per policy 9. Teach patient or legal senior human resources representative interventions for comforting Note: Evaluation of progress towards goal: Patient will verbalize tolerable pain level after pain interventions. Will continue to monitor and treat pain throughout shift. Problem: Safety Goal: Patient will be injury free during hospitalization Description: INTERVENTIONS: 1. Assess patient's risk for falls and implement fall prevention plan of care per policy 2. Provide and maintain a safe environment 3. Proper use of double Identifiers 4. Medication administration using the 5 rights 5. Hand hygiene 6. Specimens are labeled at the bedside 7. Instruct patient/ patient senior human resources representative about use of safety devices 8. Include patient/ patient senior human resources representative in decisions related to safety Note: Evaluation of progress towards goal: Patient safety has been maintained, will continue with safety interventions until DC. Problem: Infection Goal: Absence of infection during hospitalization Description: INTERVENTIONS 1. Assess and monitor for signs and symptoms of infection. 2. Monitor lab/diagnostic results. 3. Monitor all insertion sites i.e., indwelling lines, tubes and drains. 4. Monitor endotracheal (as able) and nasal secretions for changes in amount and color. 5. Administer medications as ordered. 6. Instruct and encourage patient and family to use good hand hygiene technique. 7. Identify and instruct patient/patient senior human resources representative in use of appropriate isolation precautions for identified infection/symptoms. 8. Provide and discuss with patient/patient senior human resources representative on educational MDRO sheet. 9. Encourage and monitor nutritional status daily and consult gluer and wedger if indicated. 10. Implement neutropenic guidelines as needed. Note: Evaluation of progress towards goal: Patient will show no new signs of infection, will continue with stable vitals, nurse to continue to assess and monitor until DC. Problem: Knowledge Deficit Goal: Patient/patient senior human resources representative demonstrates understanding of disease process, treatment plan, medications, and discharge instructions Description: INTERVENTIONS 1. Complete learning assessment and assess knowledge base 2. Provide teaching at level of understanding 3. Provide teaching via preferred learning method(s) Note: Evaluation of progress towards goal: Nurse to continue education with patient and family as needed via their preferred learning method until DC. DISCHARGE PLANNING NOTE Case discussed in daily transition rounds and chart reviewed by CN. Barriers to discharge include IV iron, hemoglobin monitoring. Discharge Plan remains: SNF: [facility]. CN will continue to follow and is available should any further needs arise. - Melita Govea RN 01/17/25 11:57 AM Problem: Potential for Compromised Skin Integrity Goal: Skin integrity is maintained or improved Description: Patient's goal is: INTERVENTIONS 1. Perform initial skin assessment on admission and as needed 2. Turn patient every 2 hours and PRN 3. Relieve pressure to bony prominences 4. Avoid shearing 5. Keep skin clean and dry 6. Alternate a full bath with partial baths for elderly 7. Apply lotion/moisturizer on skin 8. Monitor patient's hygiene practices 9. Float heels 10. Collaborate with interdisciplinary team and initiate plans and interventions as needed Outcome: Progressing Note: Evaluation of progress towards goal: Pt remains free from new or worsening wounds Goal: Patient's nutritional intake is adequate Description: Patient's goal is: INTERVENTIONS 1. Assess and monitor food intake and supplements, patient food preferences, nausea, vomiting, labs, oral cavity (gums, teeth, tongue, mucosa), proper denture fit, and cultural beliefs 2. Monitor for signs of hypoglycemia and hyperglycemia 3. Collaborate with interdisciplinary team and initiate plan and interventions as ordered 4. Monitor patient's weight 5. Assist patient with meals/food selection 6. Assist patient with eating 7. Allow adequate time for meals 8. Provide pleasant environment during mealtime 9. Increase social contact during mealtimes 10. Plan activities to conserve energy 11. Encourage/perform oral hygiene as appropriate 12. Encourage patient to take dietary supplement as ordered 13. Collaborate with clinical gluer and wedger 14. Include patient/ patient's senior human resources representative in decisions related to nutrition Outcome: Progressing Note: Evaluation of progress towards goal: Pt orders three meals a day Problem: Urinary Incontinence Goal: Perineal skin integrity is maintained or improved Description: INTERVENTIONS 1. Assess genitourinary system, perineal skin, labs (urinalysis), and history of incontinence to include past management, aggravating, and alleviating factors 2. Keep skin clean and dry 3. Apply skin protectant 4. Develop skin care regimen 5. Provide privacy when changing patients incontinence device to maintain their dignity 6. Consider placing an indwelling catheter 7. Collaborate with interdisciplinary team and initiate plans and interventions as needed Outcome: Progressing Note: Evaluation of progress towards goal: Patient perineal skin integrity maintained Problem: Inadequate Airway Clearance Goal: Patient will maintain patent airway Description: INTERVENTIONS 1. Assess and monitor breath sounds, cough and sputum (if present) 2. Monitor respiratory rate and oxygen saturation 3. Collaborate with respiratory therapy to administer medication, oxygen, and suitable airway clearance techniques as ordered 4. Position patient for maximum ventilatory efficiency; elevate head of bed at least 30 degrees if appropriate 5. Provide adequate fluid intake to liquify secretions if appropriate 6. Suction secretions as indicated to maintain patent airway 7. Instruct patient to turn, cough, and deep breathe; encourage incentive spirometer if indicated Outcome: Progressing Note: Evaluation of progress towards goal: patient has patent airway Problem: Inadequate Breathing Pattern Goal: Patient will achieve/maintain normal respiratory rate/effort Description: Patient's goal is: INTERVENTIONS 1. Assess and monitor respiratory rate, effort, breathing pattern, and oxygenation 2. Monitor patient for restlessness, anxiety, air hunger 3. Assess physical activity tolerance 4. Assess tobacco history; ask, advise, and refer as appropriate 5. Collaborate with interdisciplinary team and initiate plans/interventions as needed Outcome: Progressing Note: Evaluation of progress towards goal: patients breathing pattern within defined limits Goal: Patient will maintain effective ventilation Description: Patient's goal is: INTERVENTIONS 1. Assess and monitor vital signs, respiratory status (to include respiratory rate, depth, effort, and breath sounds), oxygen saturation, oral mucosa, tongue, pain, and labs (ABGs). 2. Collaborate with interdisciplinary team and initiate plans and interventions as needed 3. Oxygen therapy as indicated 4. Position patient for maximum ventilatory efficiency 5. Instruct patient to turn, cough, and deep breathe; encourage incentive spirometer if indicated 6. Plan activities to conserve energy 7. Encourage ambulation/activity per patient's tolerance 8. Collaborate with patient/RT to administer medications/treatments 9. Monitor lab/diagnostic results Outcome: Progressing Note: Evaluation of progress towards goal: Problem: Anxiety Goal: Anxiety is at manageable level Description: Patient's goal is: INTERVENTIONS 1. Assess and monitor patient's anxiety level 2. Monitor for signs and symptoms of anxiety both physical and emotional (heart palpitations, chest pain, shortness of breath, headaches, nausea, feeling jumpy, restlessness, irritable, apprehensive) 3. Reorient/orient patient to unit/surroundings 4. Explain treatment plan 5. Explain tests/procedures prior to initiation 6. Encourage participation in care 7. Encourage verbalization of concerns/fears 8. Assess coping mechanisms 9. Assist in developing anxiety-reducing skills 10. Administer complimentary therapies 11. Manage patient's environment 12. Limit or eliminate stimulants such as caffeine and nicotine 13. Collaborate with ancillary departments 14. Include patient/patient senior human resources representative in decisions related to anxiety Outcome: Progressing Note: Evaluation of progress towards goal: patient is calm Problem: Activity Intolerance/Impaired Mobility Goal: Mobility/activity is maintained at optimum level for patient Description: Patient's goal is: INTERVENTIONS 1. Assess and monitor patient barriers to mobility and need for assistive/adaptive devices 2. Assess patient's emotional response to limitations 3. Collaborate with interdisciplinary teams and initiate plans and interventions as ordered 4. Encourage independent activity per tolerance 5. Maintain proper body alignment 6. Perform active/passive ROM as tolerated/ordered 7. Coordinate activities to conserve energy 8. Reposition patient 9. Ensure adequate rest/sleep time Outcome: Progressing Note: Evaluation of progress towards goal: ROM encouraged Problem: Inadequate Coping Goal: Demonstrates and verbalizes ability to cope effectively Description: Patient's goal is: INTERVENTIONS 1. Patient is able to verbalize feelings related to emotional state 2. Encourage verbalization of feelings, perceptions, fears, stressors, loss of loved ones 3. Encourage verbalization of problems out of their control 4. Encourage participation in care and self management 5. Inform patient of all treatment/care prior to providing care 6. Collaborate with pastoral/spiritual care, social human services assistants, mental health counselor as needed. 7. Instruct patient on diversional activities such as physical activity, distraction, and deep breathing exercises to assist with coping 8. Involve patient's senior human resources representative in care Outcome: Progressing Note: Evaluation of progress towards goal: patient able to express needs Problem: Pain Goal: Patient goal is pain score less than 4, able to rest, and participant in treatment plan as appropriate Description: INTERVENTIONS: 1. Encourage patient or legal senior human resources representative to report early pain and ask for pain medicine when needed 2. Assess pain using appropriate pain scale and include the scale used when documenting 3. Administer analgesics based on type and severity of pain and evaluate response within appropriate time frame 4. Implement non-pharmacological measures as appropriate and evaluate response 5. Consider cultural and social influences on pain and pain management 6. Notify LIP if interventions ineffective or patient reports new pain 7. Monitor vital signs including pulse ox 8. Reassess pain per policy 9. Teach patient or legal senior human resources representative interventions for comforting Outcome: Progressing Note: Evaluation of progress towards goal: Patient denies pain at this time will continue to monitor Problem: Safety Goal: Patient will be injury free during hospitalization Description: INTERVENTIONS: 1. Assess patient's risk for falls and implement fall prevention plan of care per policy 2. Provide and maintain a safe environment 3. Proper use of double Identifiers 4. Medication administration using the 5 rights 5. Hand hygiene 6. Specimens are labeled at the bedside 7. Instruct patient/ patient senior human resources representative about use of safety devices 8. Include patient/ patient senior human resources representative in decisions related to safety Outcome: Progressing Note: Evaluation of progress towards goal: Patient remains free from any falls or injuries Problem: Infection Goal: Absence of infection during hospitalization Description: INTERVENTIONS 1. Assess and monitor for signs and symptoms of infection. 2. Monitor lab/diagnostic results. 3. Monitor all insertion sites i.e., indwelling lines, tubes and drains. 4. Monitor endotracheal (as able) and nasal secretions for changes in amount and color. 5. Administer medications as ordered. 6. Instruct and encourage patient and family to use good hand hygiene technique. 7. Identify and instruct patient/patient senior human resources representative in use of appropriate isolation precautions for identified infection/symptoms. 8. Provide and discuss with patient/patient senior human resources representative on educational MDRO sheet. 9. Encourage and monitor nutritional status daily and consult gluer and wedger if indicated. 10. Implement neutropenic guidelines as needed. Outcome: Progressing Note: Evaluation of progress towards goal: Patient remains free from any signs and symptoms of infection at this time Problem: Knowledge Deficit Goal: Patient/patient senior human resources representative demonstrates understanding of disease process, treatment plan, medications, and discharge instructions Description: INTERVENTIONS 1. Complete learning assessment and assess knowledge base 2. Provide teaching at level of understanding 3. Provide teaching via preferred learning method(s) Outcome: Progressing Note: Evaluation of progress towards goal: Patient will voice any questions or concerns during this admission Problem: Discharge Planning Goal: Discharge to post-acute care, other facility, or home with appropriate resources Description: Patient's goal is: INTERVENTIONS 1. Conduct assessment to determine patient/family and health care team treatment goals, and need for post-acute services based on payer coverage, community resources, and patient preferences, and barriers to discharge 2. Coordinate with Social work, Care Navigation, and Utilization Review to arrange appropriate level of services according to patient's needs based on patient preference and payer coverage in collaboration with the physician and health care team 3. Address psychosocial, clinical, and financial barriers to discharge as identified in assessment in conjunction with the patient/family and health care team 4. Consult appropriate ancillary services (i.e.. PT/OT/ST, etc) as needed 5. Communicate with and update the patient/family, physician, and health care team regarding progress on the discharge plan 6. Identify discharge learning needs (meds, wound care, etc). 7. Arrange for needed discharge 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 as appropriate Outcome: Progressing Note: Evaluation of progress towards goal: Patient will voice any questions or concerns about discharge during the hospital admission Problem: Moderate - High Risk Fall Score Description: Bach Fall Score of =/> 25 or indicated by [facility] Assessment Goal: Patient should be free from fall Description: Interventions: 1. Aldie to environment 2. Hourly rounds addressing the 4 P's (Pain, Positioning, Possessions, Potty) 3. Clear area of hazards (spills, clutter, electrical cords, unnecessary equipment) 4. Place equipment (bed & TV controls, call light, phone, urinal) within reach 5. Encourage patient to wear glasses and hearing aides as appropriate 6. Maintain bed in lowest position 7. Lock wheels on bed/wheelchair 8. Provide adequate lighting, including night light 9. Assess need for additional bedding, food/fluids, pain med's prior to sleep/routinely 10. Provide gripper slippers or personal non-skid footwear 11. Teach patient and patient senior human resources representative to maintain environment for safety and engage in all aspects of fall prevention program 12. Remind patient to call for help before getting out of bed 13. Initiate bed/chair/exit alarms supportive devices as appropriate, (chair wedge, no-skid floor mat, raised edge mattress, hip protectors) 14. Locate patient bed assignment for optimal visualization 15. Evaluate and identify Safe Patient Handling Equipment needs 16. Provide supervision when out of bed or chair 17. Utilize gait belt as needed to assist with ambulation 18. Place adaptive equipment (cane, walker) within reach 19. Request patient senior human resources representative bring adaptive equipment/mobility aids from home or obtain and provide as needed 20. Consult pharmacy regarding effects of med's affecting mobility, cognition, and alternatives 21. Obtain physician order for PT if risk factors associated with mobility are present 22. Obtain physician order for OT as appropriate 23. Utilize diversional activities 24. Educate patient and patient senior human resources representative how to maintain a safe environment during visitation times (notify nurse prior to leaving bedside) 25. Consider appropriateness of medical or non-biomedical engineering professor 26. Set up voiding schedule as appropriate (every 2 hours) Outcome: Progressing Note: Evaluation of progress towards goal: Patient remains free from any falls or injuries DISCHARGE PLANNING NOTE Case discussed in daily transition rounds and chart reviewed by CN. Barriers to discharge include hemoglobin monitoring, INR levels. Discharge Plan remains: SNF: [facility]. Facility came to discuss admission with patient. CN will continue to follow and is available should any further needs arise. - Melita Govea RN 01/16/25 3:50 PM Problem: Safety Goal: Patient will be injury free during hospitalization Description: INTERVENTIONS: 1. Assess patient's risk for falls and implement fall prevention plan of care per policy 2. Provide and maintain a safe environment 3. Proper use of double Identifiers 4. Medication administration using the 5 rights 5. Hand hygiene 6. Specimens are labeled at the bedside 7. Instruct patient/ patient senior human resources representative about use of safety devices 8. Include patient/ patient senior human resources representative in decisions related to safety Outcome: Progressing Note: Evaluation of progress towards goal: Patient remains safe and free of falls and injury since start of shift. Hourly rounding continued and call light within reach. Bed rails up x3 and orientation reviewed. Will continue to maintain safety during duration of stay.. Problem: Potential for Compromised Skin Integrity Goal: Skin integrity is maintained or improved Description: Patient's goal is: INTERVENTIONS 1. Perform initial skin assessment on admission and as needed 2. Turn patient every 2 hours and PRN 3. Relieve pressure to bony prominences 4. Avoid shearing 5. Keep skin clean and dry 6. Alternate a full bath with partial baths for elderly 7. Apply lotion/moisturizer on skin 8. Monitor patient's hygiene practices 9. Float heels 10. Collaborate with interdisciplinary team and initiate plans and interventions as needed Outcome: Progressing Goal: Patient's nutritional intake is adequate Description: Patient's goal is: INTERVENTIONS 1. Assess and monitor food intake and supplements, patient food preferences, nausea, vomiting, labs, oral cavity (gums, teeth, tongue, mucosa), proper denture fit, and cultural beliefs 2. Monitor for signs of hypoglycemia and hyperglycemia 3. Collaborate with interdisciplinary team and initiate plan and interventions as ordered 4. Monitor patient's weight 5. Assist patient with meals/food selection 6. Assist patient with eating 7. Allow adequate time for meals 8. Provide pleasant environment during mealtime 9. Increase social contact during mealtimes 10. Plan activities to conserve energy 11. Encourage/perform oral hygiene as appropriate 12. Encourage patient to take dietary supplement as ordered 13. Collaborate with clinical gluer and wedger 14. Include patient/ patient's senior human resources representative in decisions related to nutrition Outcome: Progressing Note: Evaluation of progress towards goal: patient eating well and consuming 80-100% of meals. Problem: Safety Goal: Patient will be injury free during hospitalization Description: INTERVENTIONS: 1. Assess patient's risk for falls and implement fall prevention plan of care per policy 2. Provide and maintain a safe environment 3. Proper use of double Identifiers 4. Medication administration using the 5 rights 5. Hand hygiene 6. Specimens are labeled at the bedside 7. Instruct patient/ patient senior human resources representative about use of safety devices 8. Include patient/ patient senior human resources representative in decisions related to safety Outcome: Progressing Note: Evaluation of progress towards goal: Patient remains safe and free of falls and injury since start of shift. Hourly rounding continued and call light within reach. Bed rails up x3 and orientation reviewed. Will continue to maintain safety during duration of stay.. Occupational Therapy Treatment Discharge Recommendations OT Recommendations : Residential Facility 6 Clicks: Daily Activity Putting on and taking off regular lower body clothing?: Total Bathing (including washing, rinsing, drying)?: A lot Toileting, which includes using toilet, bedpan or urinal?: Total Putting on and taking off regular upper body clothing?: A little Taking care of personal grooming such as brushing teeth?: A little Eating meals?: None Scoring Daily Activity Raw Score: 14 CMS G Code Modifier: CK OT Treatment/Interventions: ADL retraining, Functional transfer training, UE strengthening/ROM, Endurance training, Cognitive reorientation, Patient/family training, Equipment eval/education, Balance, Bed mobility, Compensatory technique education, Functional activities OT Frequency: 5-6days/week OT Duration: LOS Assessment Patient Assessment Therapy Problem List: Decreased ADL status, Decreased balance, Decreased endurance, Decreased high-level ADLs, Decreased mobility, Decreased safe judgement during ADL, Decreased LE strength, Decreased cognition, Decreased self-care trans, Decreased UE ROM, Decreased UE strength Patient Response to Treatment: Slow progress, decreased activity tolerance Mood/Affect: Appropriate for circumstances Rehab Prognosis: Good, With continued OT status post acute discharge Visit RN Communication: Yes Medical Record Reviewed: Yes OT Type of Visit: Treatment Precautions Activity: Early mobility: pass. okay to see per RN Equipment: gait belt, TY stedy, external cath, repositioning sling Weight Bearing Status: PWB L LE (40-60#) 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: Yes Oxygen Used: pt initially on 3L, removed O2 during session. SPO2 95% on RA at end of session. Other: High fall risk, anxiety/fear of falling, h/o falls Pain Assessment Pain Assessment: 0-10 Pain Score: 9 Observed Behavior: Calm Pain Location: Leg Pain Orientation: Left, Lower Pain Intervention(s): Repositioned, Ambulation/increased activity, Cold applied, Elevated Response to Interventions: Quiet Pain 2 Observed Behavior: Calm ADL / IADL Hand Dominance: Right Where Assessed: Supine, bed, Chair Grooming Assistance: Standby assist Grooming Deficit: Wash/dry hands, Brushing hair, Wash/dry face, Oral hygiene Toilet/Commode Assistance: Total assist Toilet/Commode Deficit: Perineal hygiene LE Dressing Assistance: Total assist LE Dressing Deficit: Don/doff brief Footwear Assistance: Total assist Footwear Deficit: R sock, L sock Other: pt required total assist to don B socks while supine. pt required brief change, task completed while supine. total assist required for felicitas hygiene and for LBD to don new brief. pt completed grooming tasks while sitting at EOB. SBA provided for safety. no LOB noted during self care tasks. Home Management - IADL Other: pt required total assist to don B socks while supine. pt required brief change, task completed while supine. total assist required for felicitas hygiene and for LBD to don new brief. pt completed grooming tasks while sitting at EOB. SBA provided for safety. no LOB noted during self care tasks. Cognition Orientation Level: Oriented X4 Other: pt able to recall WB restrictions. pt tends to be hyperverbose. Bed Mobility Rolling: Contact guard assist, Right, Left Supine to Sit: Min assist, Right Other: pt rolled R and L while supine for felicitas hygiene. use of rail required, CGA provided for safety. pt completed supine to sit with HOB slightly elevated. use of rail required. min A provided to assist with L LE during transition. pt left in the chair at end of session with call light within reach and with RN aware. Transfers Sit to Stand: Max assist (x2) Stand to Sit: Max assist (x2) Bed to Chair: Total assist (ty stedy) Other: sit to stand completed from EOB at ty stedy. max A x2 required to complete with bed elevated. pt demos fair compliance with PWB in L LE during transfer. use of ty stedy utilized to transfer pt from bed to chair. repo sling in place for nursing staff. Gait Other: not appropriate at this time. Balance Sitting Balance: Static: Fair (+) Sitting Balance: Dynamic: Fair Standing Balance: Static: Poor Other: unsupported sitting completed while at EOB for ADLs. pt able to tolerate 15 mins with SBA provided. no UE support required while sitting. pt only able to tolerate standing long enough for paddle placement in ty stedy. max A x2 required for balance. Activity Tolerance Endurance: Tolerates >30 minutes activity with rest breaks Other: fair overall tolerance. pt is limited by weakness, fatigue, pain, and decreased activity tolerance. Plan Occupational Therapy Care Plan Occupational Therapy Care Plan (Active) Template: OT - Occupational Therapy Problem: Activity Tolerance Dates: Start: 01/14/25 Disciplines: OT Goal: Tolerate > 30 minutes of activity WITHOUT rest breaks Dates: Start: 01/14/25 Expected End: 02/04/25 Description: Goal Description: Disciplines: OT Outcomes Date/Time User Outcome 01/16/25 1004 ANGE Gale Progressing Goal Note filed on 01/16/25 1004 by ANGE Gale Evaluation of progress towards goal: Problem: Bathing LB Dates: Start: 01/14/25 Disciplines: OT Goal: Patient will perform bathing LB with Minimum Assist Dates: Start: 01/14/25 Expected End: 02/04/25 Description: With use of compensatory strategies and/or AE as needed. Disciplines: OT Problem: Bathing UB Dates: Start: 01/14/25 Disciplines: OT Goal: Patient will perform bathing UB with Set-Up Dates: Start: 01/14/25 Expected End: 02/04/25 Description: Goal Description: Disciplines: OT Problem: Bed Mobility Dates: Start: 01/14/25 Disciplines: OT Goal: Patient will perform bed mobility with Stand By Assist Dates: Start: 01/14/25 Expected End: 02/04/25 Description: Goal Description: Disciplines: OT Outcomes Date/Time User Outcome 01/16/25 1004 ANGE Gale Progressing Goal Note filed on 01/16/25 1004 by ANGE Gale Evaluation of progress towards goal: Problem: Dressing LB Dates: Start: 01/14/25 Disciplines: OT Goal: Patient will perform dressing LB with Minimum Assist Dates: Start: 01/14/25 Expected End: 02/04/25 Description: With use of compensatory strategies and/or AE as needed. Disciplines: OT Outcomes Date/Time User Outcome 01/16/25 1004 ANGE Gale Not Progressing Goal Note filed on 01/16/25 1004 by ANGE Gale Evaluation of progress towards goal: Problem: Dressing UB Dates: Start: 01/14/25 Disciplines: OT Goal: Patient will perform dressing UB with Set-Up Dates: Start: 01/14/25 Expected End: 02/04/25 Description: Goal Description: Disciplines: OT Problem: Functional Mobility Dates: Start: 01/14/25 Disciplines: OT Goal: Patient will perform functional mobility with Minimum Assist Dates: Start: 01/14/25 Expected End: 02/04/25 Description: Goal Description: Disciplines: OT Problem: Grooming Dates: Start: 01/14/25 Disciplines: OT Goal: Patient will perform grooming with Modified [place] Dates: Start: 01/14/25 Expected End: 02/04/25 Description: Goal Description: Disciplines: OT Outcomes Date/Time User Outcome 01/16/25 1004 ANGE Gale Progressing Goal Note filed on 01/16/25 1004 by ANGE Gale Evaluation of progress towards goal: Problem: Sitting Balance Dates: Start: 01/14/25 Disciplines: OT Goal: Improve balance to good Dates: Start: 01/14/25 Expected End: 02/04/25 Description: Static Dynamic Disciplines: OT Outcomes Date/Time User Outcome 01/16/25 1004 ANGE Gale Progressing Goal Note filed on 01/16/25 1004 by ANGE Gale Evaluation of progress towards goal: Problem: Standing Balance Dates: Start: 01/14/25 Disciplines: OT Goal: Improve balance to fair Dates: Start: 01/14/25 Expected End: 02/04/25 Description: Static Dynamic Disciplines: OT Outcomes Date/Time User Outcome 01/16/25 1004 ANGE Gale Not Progressing Goal Note filed on 01/16/25 1004 by ANGE Gale Evaluation of progress towards goal: Problem: Strength Dates: Start: 01/14/25 Disciplines: OT Goal: Improve strength Dates: Start: 01/14/25 Expected End: 02/04/25 Description: Pt will be Mod I with BUE HEP to maximize overall strength and activity tolerance for ADL/IADL. Disciplines: OT Problem: Toilet Transfers Dates: Start: 01/14/25 Disciplines: OT Goal: Patient will perform toilet transfers with Minimum Assist Dates: Start: 01/14/25 Expected End: 02/04/25 Description: Goal Description: Disciplines: OT Problem: Toileting Dates: Start: 01/14/25 Disciplines: OT Goal: Patient will perform toileting with Minimum Assist Dates: Start: 01/14/25 Expected End: 02/04/25 Description: Goal Description: Disciplines: OT Outcomes Date/Time User Outcome 01/16/25 1004 ANGE Gale Not Progressing Goal Note filed on 01/16/25 1004 by ANGE Gale Evaluation of progress towards goal: Problem: Transfers Dates: Start: 01/14/25 Disciplines: OT Goal: Patient will perform transfers with Minimum Assist Dates: Start: 01/14/25 Expected End: 02/04/25 Description: Goal Description: Disciplines: OT Outcomes Date/Time User Outcome 01/16/25 1004 ANGE Gale Not Progressing Goal Note filed on 01/16/25 1004 by ANGE Gale Evaluation of progress towards goal: Occupational Therapy Care Plan (Resolved) There are no resolved problems. Principal Problem: Closed fracture of proximal end of left tibia, unspecified fracture morphology, initial encounter Cosigned by ARABELLA Estrella at 01/16/2025 2:17 PM EDT Associated attestation - Makenna Yanes OTR/L - 01/16/2025 2:17 PM EDT I have reviewed and agree with this note and education documentation for this visit. Physical Therapy Treatment Discharge Recommendations PT Recommendations: Residential Facility 6 Clicks: Basic Mobility Turning from your back to your side while in a flat bed without using bed rails?: A little Moving from lying on your back to sitting on side of flat bed without using bed rails?: A little Moving to and from bed to a chair (including w/c)?: Total Standing up from a chair using your arms (e.g. w/c or bedside chair)?: A lot To walk in hospital room?: Total Climbing 3-5 steps with a railing?: Total Scoring 6 Clicks: Basic Mobility Raw Score: 11 CMS G Code Modifier: CL PT Treatment/Interventions: Functional transfer training, LE strengthening/ROM, Endurance training, Patient/family training, Balance, Bed mobility, Gait training, Functional activities PT Frequency: 5-6days/week PT Duration: length of stay Patient Response to Treatment: Slow progress, decreased activity tolerance Assessment Patient Assessment Therapy Problem List: Decreased balance, Decreased endurance, Decreased mobility, Decreased LE ROM, Decreased LE strength Patient Response to Treatment: Slow progress, decreased activity tolerance Mood/Affect: Appropriate for circumstances Rehab Prognosis: Good, With continued PT status post acute discharge Visit RN Communication: Yes Medical Record Reviewed: Yes PT Type of Visit: Treatment Precautions Activity: early mobility pass, okay to see per RN Equipment: gait belt, ty stedy, external female urinary catheter, repositioning sling Weight Bearing Status: PWB Lt LE 40-60 lbs 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: Yes Oxygen Used: initially on 3 liters, but okay to remove per RN, pt on room air with spo2 95% Other: high fall risk, h/o falls Pain Assessment Pain Assessment: 0-10 (RN aware) Pain Score: 6 Observed Behavior: Calm Pain Location: Leg Pain Orientation: Left, Lower Pain Intervention(s): Repositioned, Ambulation/increased activity, Cold pack Response to Interventions: Quiet, No grimacing Bed Mobility Rolling: Contact guard assist Supine to Sit: Min assist Other: pt in bed upon entrance, completes rolling towards both sides for felicitas hygiene. HOB slightly elevated with use of bed rail. inc time/effort for transition to EOB with min assist for Lt LE. pt left in chair with call light in reach. RN aware Transfers Sit to Stand: Max assist (x2) Stand to Sit: Max assist (x2) Bed to Chair: Total assist Other: pt completed STS from EOB with max assist x2 to achieve full stand. pt with forward flexed posture, demos fair ability to maintain PWB status. use of ty stedy for safe transfer from bed to chair this date. recommend maxi eddi for nursing staff. Balance Sitting Balance: Static: Fair (+) Sitting Balance: Dynamic: Fair Standing Balance: Static: Poor Other: pt sat at EOB '15 min for ADLs with SBA. pt demos poor standing balance this date. Activity Tolerance Endurance: Tolerates >30 minutes activity with rest breaks Other: limited by fatigue, weakness and pain. Plan Physical Therapy Care Plan Physical Therapy Care Plan (Active) Template: PT - Physical Therapy Problem: Activity Tolerance Dates: Start: 01/14/25 Disciplines: PT Goal: Tolerate > 30 minutes of activity WITH rest breaks Dates: Start: 01/14/25 Expected End: 02/03/25 Description: Goal Description: Patient to perform functional range / strength exercises to improve functional strength, balance and activity tolerance for improved independence and safety with mobility. Disciplines: PT Outcomes Date/Time User Outcome 01/16/25 Fredi Ochoa PTA Progressing Problem: Bed Mobility Dates: Start: 01/14/25 Disciplines: PT Goal: Patient will perform bed mobility with Minimum Assist Dates: Start: 01/14/25 Expected End: 02/03/25 Description: Goal Description: Patient to perform mobility with good safety awareness. Disciplines: PT Outcomes Date/Time User Outcome 01/16/25 Fredi Ochoa PTA Progressing Problem: Gait Dates: Start: 01/14/25 Disciplines: PT Goal: Patient will perform gait with Minimum Assist Dates: Start: 01/14/25 Expected End: 02/03/25 Description: With___RW_,__10__feet Goal Description: Pt to perform activity while maintaining partial weight bearing status. Disciplines: PT Problem: Sitting Balance Dates: Start: 01/14/25 Disciplines: PT Goal: Improve balance to good Dates: Start: 01/14/25 Expected End: 02/03/25 Description: Static Dynamic Disciplines: PT Outcomes Date/Time User Outcome 01/16/25 Fredi Ochoa STRAP BUCKLER MACHINE Progressing Problem: Standing Balance Dates: Start: 01/14/25 Disciplines: PT Goal: Improve balance to fair Dates: Start: 01/14/25 Expected End: 02/03/25 Description: Static Dynamic Disciplines: PT Outcomes Date/Time User Outcome 01/16/25 Fredi Ochoa STRAP BUCKL[employer] MACHINE Progressing Problem: Strength Dates: Start: 01/14/25 Disciplines: PT Goal: Improve strength Dates: Start: 01/14/25 Expected End: 02/03/25 Description: Of extremity/ location: bilat LE to WFL To facilitate: Disciplines: PT Outcomes Date/Time User Outcome 01/16/25 Fredi Ochoa STRAP BUCKLER MACHINE Progressing Problem: Transfers Dates: Start: 01/14/25 Disciplines: PT Goal: Patient will perform transfers with Minimum Assist Dates: Start: 01/14/25 Expected End: 02/03/25 Description: Goal Description: Patient to perform mobility with good safety awareness and able to maintain PWB status Disciplines: PT Outcomes Date/Time User Outcome 01/16/25 1024 Janice Ochoa PTA Progressing Physical Therapy Care Plan (Resolved) There are no resolved problems. Principal Problem: Closed fracture of proximal end of left tibia, unspecified fracture morphology, initial encounter Cosigned by Justin Mast PT at 01/16/2025 2:14 PM EDT Associated attestation - Justin Mast, PT - 01/16/2025 2:14 PM EDT I have reviewed and agree with this note and education documentation for this visit. Problem: Potential for Compromised Skin Integrity Goal: Skin integrity is maintained or improved Description: Patient's goal is: INTERVENTIONS 1. Perform initial skin assessment on admission and as needed 2. Turn patient every 2 hours and PRN 3. Relieve pressure to bony prominences 4. Avoid shearing 5. Keep skin clean and dry 6. Alternate a full bath with partial baths for elderly 7. Apply lotion/moisturizer on skin 8. Monitor patient's hygiene practices 9. Float heels 10. Collaborate with interdisciplinary team and initiate plans and interventions as needed Outcome: Progressing Note: Evaluation of progress towards goal: Skin assessment complete. No new areas of concern. Felicitas-care as needed. Assistance needed with positioning. Problem: Urinary Incontinence Goal: Perineal skin integrity is maintained or improved Description: INTERVENTIONS 1. Assess genitourinary system, perineal skin, labs (urinalysis), and history of incontinence to include past management, aggravating, and alleviating factors 2. Keep skin clean and dry 3. Apply skin protectant 4. Develop skin care regimen 5. Provide privacy when changing patients incontinence device to maintain their dignity 6. Consider placing an indwelling catheter 7. Collaborate with interdisciplinary team and initiate plans and interventions as needed Outcome: Progressing Note: Evaluation of progress towards goal: Bradford removed per protocol. External female catheter in place. Problem: Activity Intolerance/Impaired Mobility Goal: Mobility/activity is maintained at optimum level for patient Description: Patient's goal is: INTERVENTIONS 1. Assess and monitor patient barriers to mobility and need for assistive/adaptive devices 2. Assess patient's emotional response to limitations 3. Collaborate with interdisciplinary teams and initiate plans and interventions as ordered 4. Encourage independent activity per tolerance 5. Maintain proper body alignment 6. Perform active/passive ROM as tolerated/ordered 7. Coordinate activities to conserve energy 8. Reposition patient 9. Ensure adequate rest/sleep time Outcome: Progressing Note: Evaluation of progress towards goal: Patient up to chair with meals. PT/OT consulted. Self care encouraged. Problem: Pain Goal: Patient goal is pain score less than 4, able to rest, and participant in treatment plan as appropriate Description: INTERVENTIONS: 1. Encourage patient or legal senior human resources representative to report early pain and ask for pain medicine when needed 2. Assess pain using appropriate pain scale and include the scale used when documenting 3. Administer analgesics based on type and severity of pain and evaluate response within appropriate time frame 4. Implement non-pharmacological measures as appropriate and evaluate response 5. Consider cultural and social influences on pain and pain management 6. Notify LIP if interventions ineffective or patient reports new pain 7. Monitor vital signs including pulse ox 8. Reassess pain per policy 9. Teach patient or legal senior human resources representative interventions for comforting Outcome: Progressing Note: Evaluation of progress towards goal: Patient goal is pain score less than 4, able to rest, and participant in treatment plan as appropriate. Problem: Safety Goal: Patient will be injury free during hospitalization Description: INTERVENTIONS: 1. Assess patient's risk for falls and implement fall prevention plan of care per policy 2. Provide and maintain a safe environment 3. Proper use of double Identifiers 4. Medication administration using the 5 rights 5. Hand hygiene 6. Specimens are labeled at the bedside 7. Instruct patient/ patient senior human resources representative about use of safety devices 8. Include patient/ patient senior human resources representative in decisions related to safety Outcome: Progressing Note: Evaluation of progress towards goal: Patient is forgetful but alert. Patient has history of falls. Hourly rounding ongoing. Patient able to use call-light and make needs known to staff. No falls or injuries reported this shift. Problem: Infection Goal: Absence of infection during hospitalization Description: INTERVENTIONS 1. Assess and monitor for signs and symptoms of infection. 2. Monitor lab/diagnostic results. 3. Monitor all insertion sites i.e., indwelling lines, tubes and drains. 4. Monitor endotracheal (as able) and nasal secretions for changes in amount and color. 5. Administer medications as ordered. 6. Instruct and encourage patient and family to use good hand hygiene technique. 7. Identify and instruct patient/patient senior human resources representative in use of appropriate isolation precautions for identified infection/symptoms. 8. Provide and discuss with patient/patient senior human resources representative on educational MDRO sheet. 9. Encourage and monitor nutritional status daily and consult gluer and wedger if indicated. 10. Implement neutropenic guidelines as needed. Outcome: Progressing Note: Evaluation of progress towards goal: Afebrile. No obvious signs of infection noted this shift. Handwashing encouraged. Problem: Knowledge Deficit Goal: Patient/patient senior human resources representative demonstrates understanding of disease process, treatment plan, medications, and discharge instructions Description: INTERVENTIONS 1. Complete learning assessment and assess knowledge base 2. Provide teaching at level of understanding 3. Provide teaching via preferred learning method(s) Outcome: Progressing Note: Evaluation of progress towards goal: Patient demonstrates understanding of disease process, treatment plan, medications, and discharge instructions DISCHARGE PLANNING NOTE Referrals sent to [facility] (P# ; SNF F# ; [place] F# [phone]), [facility]/ [place], [place] (P# ; F# ) and to [facility] (P# ; F# ) Images from the original note were not included. DISCHARGE PLANNING NOTE Security Supervisor met with patient, introduced self, and explained role. Patient educated on safe discharge plan. Pt admitted 01/12/2025 with Preop cardiovascular exam [Z01.810] JUDE (acute kidney injury) [N17.9] Closed fracture of proximal end of left tibia, unspecified fracture morphology, initial encounter [S82.102A] per chart review. Consults: Cardiology, Oncology, and Orthopaedics Discharge Barriers per Daily Transition Rounds and chart review: 3L NC, Hem 6.1, IV iron, IV antibiotics Past Medical History: Diagnosis Date Anemia iron deficiency Arthritis Asthma Atrial fibrillation Atrial fibrillation (HCC) [I48.91] 07/17/2017 Bilateral shoulder pain 05/04/2019 Bladder disorder 11/10/2016 Cataract Cervical disc disorder CKD (chronic kidney disease) renal insuff/follows with Dr Camacho never on dialysis Dental disease chipped Depression Depression with anxiety 10/27/2016 Disc disorder cervical, thoracic, lumbosacral Dislocation of left knee, initial encounter 11/16/2024 Dry eye syndrome 07/28/2016 Edema legs Falls frequently Gastrointestinal hemorrhage 10/05/2022 Added automatically from request for surgery [id number] GERD (gastroesophageal reflux disease) Giant cell arteritis ([facility]) 07/20/2018 Hyperlipidemia Hypertension Low back pain Lumbar disc disorder LVH (left ventricular hypertrophy) AND DIASTOLIC DYSFUNCTION Lymphedema Macular drusen, bilateral 07/28/2016 Migraine Mononucleosis Neuropathy Obesity h/o bariatric surgery 01/2018, lost >100# Osteoarthritis of cervical spine 02/24/2019 Posterior vitreous detachment of right eye 03/03/2019 Presbyopia 03/18/2019 Prolonged Q-T interval on ECG 12/2018 Rotator cuff arthropathy of right shoulder 09/16/2019 Added automatically from request for surgery [id number] Sleep apnea uses c pap/states doesn`t use every night Status post bariatric surgery 02/24/2019 Thoracic disc disorder Tinnitus Urinary incontinence Urinary urgency UTI (urinary tract infection) 03/18/2022 Visual impairment glasses Vitreous floaters of right eye 03/03/2019 Vitreous syneresis of left eye 03/03/2019 White matter abnormality on MRI of brain 02/24/2019 Prior to admission patient was living alone and self care. Medical equipment patient used prior to admission includes: Cane, Raised/Elevated Toilet Seat, Shower Chair, Walker - Rollator, and Wheelchair. Patient denies need for 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/ food/ prescription medication assistance resources. PCP: ALEXANDRU ALLEN [facility] and pharmacy confirmed with patient. CN offered to assist with follow up appointment arrangements; patient declines. ALEXANDRU ALLEN added to Follow Up Providers for Summary of Care communication. Per patient self-report: Drug use: Denies Smoking: Denies ETOH Use: Denies Current discharge plan is: Residential Facility Services Requested: Services Requested Patient expects to be discharged to:: SNF Does the patient wish to have family/friend/caregiver involved in their discharge planning?: No, the patient does not wish to have family/friend/caregiver involved in their discharge planning Discharge Disposition: SNF Does the patient need discharge 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 arranged?: Yes Patient choice offered: Yes List Provided: Yes [facility] List Provided: Residential Facility Goals: Goals <enter goal here> (pt-stated) Evaluation of progress towards goal: pt will likely need to go to SNF [place]hab [place] <enter goal here> (pt-stated) Evaluation of progress towards goal: Progress towards discharge Patient has been back and forth from hospital to SNF over the last year. Patient states she was home for a couple of weeks with Gogo Moran prior to her fall this hospitalization. DC plan at this time is [facility] facility for short term rehab. RC tasked with sending referrals to 1. [facility] 2. [place] and 3. [facility]. Awaiting response. Patient will need 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 arranged when discharged. Patient denies any other needs at this time. Will continue to medically monitor. Will continue to follow as plan of care develops. CN discussed benefits and importance of medication compliance and follow ups. Please feel free to reach out for any discharge planning questions. - Makenna Luu RN 01/15/25 2:54 PM Consult received. Iv iron has been started. Retic is under productive for her degree of anemia, gfr<45- likely contributing to her anemia as well. Recommend starting rey- will order. Full consult note to come ALEXANDRU Damon 01/15/25 1230 Problem: Potential for Compromised Skin Integrity Goal: Skin integrity is maintained or improved Description: Patient's goal is: INTERVENTIONS 1. Perform initial skin assessment on admission and as needed 2. Turn patient every 2 hours and PRN 3. Relieve pressure to bony prominences 4. Avoid shearing 5. Keep skin clean and dry 6. Alternate a full bath with partial baths for elderly 7. Apply lotion/moisturizer on skin 8. Monitor patient's hygiene practices 9. Float heels 10. Collaborate with interdisciplinary team and initiate plans and interventions as needed Outcome: Progressing Note: Evaluation of progress towards goal: No new skin breakdown at this time continue to monitor for signs of new breakdown Problem: Urinary Incontinence Goal: Perineal skin integrity is maintained or improved Description: INTERVENTIONS 1. Assess genitourinary system, perineal skin, labs (urinalysis), and history of incontinence to include past management, aggravating, and alleviating factors 2. Keep skin clean and dry 3. Apply skin protectant 4. Develop skin care regimen 5. Provide privacy when changing patients incontinence device to maintain their dignity 6. Consider placing an indwelling catheter 7. Collaborate with interdisciplinary team and initiate plans and interventions as needed Outcome: Progressing Note: Evaluation of progress towards goal: Bradford catheter in place. Skin integrity remains in stable condition. No new skin breakdown at this time continue to monitor for signs of new breakdown Physical Therapy Evaluation Discharge Recommendations PT Recommendations: Residential Facility SNF/ECF Comments: Pt would benefit from skilled therapy services to address deficits in functional strength, decreased activity tolerance and decreased independence with mobility s/p fall with L tib/fib fracture and surgical fixation. Pt unable to care for self in home environment. 6 Clicks: Basic Mobility Turning from your back to your side while in a flat bed without using bed rails?: A little Moving from lying on your back to sitting on side of flat bed without using bed rails?: A little Moving to and from bed to a chair (including w/c)?: Total Standing up from a chair using your arms (e.g. w/c or bedside chair)?: A lot To walk in hospital room?: Total Climbing 3-5 steps with a railing?: Total Scoring 6 Clicks: Basic Mobility Raw Score: 11 [facility] G Code Modifier: CL Therapy Plan Need for skilled Physical Therapy to address deficits in functional mobility due to a status decline resulting from admission s/p fall onto L side while ambulating with walker Xray L hip (-) acute Xray L tib/fib showed transverse fracutre proximal tibia CT L knee showed tibia / fibula fracture Ortho consult - pt is at high risk for femur fracture, needs prophylactic fixation in the future 01/13 pt underwent ORIF L tibial shaft fracture PT Treatment/Interventions: ADL retraining, Functional transfer training, LE strengthening/ROM, Endurance training, Patient/family training, Equipment eval/education, Balance, Bed mobility, Gait training, Functional activities, Neuromuscular reeducation PT Frequency: 5-6days/week PT Duration: length of stay Patient Response to Treatment: Tolerated evaluation without adverse reaction Past Medical History: Diagnosis Date Anemia iron deficiency Arthritis Asthma Atrial fibrillation Atrial fibrillation (HCC) [I48.91] 07/17/2017 Bilateral shoulder pain 05/04/2019 Bladder disorder 11/10/2016 Cataract Cervical disc disorder CKD (chronic kidney disease) renal insuff/follows with Dr Camacho never on dialysis Dental disease chipped Depression Depression with anxiety 10/27/2016 Disc disorder cervical, thoracic, lumbosacral Dislocation of left knee, initial encounter 11/16/2024 Dry eye syndrome 07/28/2016 Edema legs Falls frequently Gastrointestinal hemorrhage 10/05/2022 Added automatically from request for surgery [id number] GERD (gastroesophageal reflux disease) Giant cell arteritis ([facility]) 07/20/2018 Hyperlipidemia Hypertension Low back pain Lumbar disc disorder LVH (left ventricular hypertrophy) AND DIASTOLIC DYSFUNCTION Lymphedema Macular drusen, bilateral 07/28/2016 Migraine Mononucleosis Neuropathy Obesity h/o bariatric surgery 01/2018, lost >100# Osteoarthritis of cervical spine 02/24/2019 Posterior vitreous detachment of right eye 03/03/2019 Presbyopia 03/18/2019 Prolonged Q-T interval on ECG 12/2018 Rotator cuff arthropathy of right shoulder 09/16/2019 Added automatically from request for surgery [id number] Sleep apnea uses c pap/states doesn`t use every night Status post bariatric surgery 02/24/2019 Thoracic disc disorder Tinnitus Urinary incontinence Urinary urgency UTI (urinary tract infection) 03/18/2022 Visual impairment glasses Vitreous floaters of right eye 03/03/2019 Vitreous syneresis of left eye 03/03/2019 White matter abnormality on MRI of brain 02/24/2019 Past Surgical History: Procedure Laterality Date BIOPSY ARTERY TEMPORAL Bilateral 07/28/2018 Performed by Jany Mesa MD at [facility] BIOPSY MUSCLE LOWER EXTREMITY Right 04/05/2019 Performed by Zaida Blue MD at [facility] COLONOSCOPY Left Lateral 10/07/2022 Performed by Gissell Ye MD at [facility] DILATION AND CURETTAGE OF UTERUS 2016 EGD Left Lateral 10/07/2022 Performed by Gissell Ye MD at [facility] HYSTEROSCOPY 2016 LAPAROSCOPIC SLEEVE GASTRECTOMY/ CLOSURE DIAPHRAGMATIC CRUA N/A 07/28/2018 Performed by Zaida Gil MD at [facility] NASAL SEPTUM SURGERY OPEN REDUCTION INTERNAL FIXATION FEMUR Left 06/03/2024 Performed by Rafat Sepulveda MD at [facility] OPEN REDUCTION INTERNAL FIXATION TIBIA WITH STRESS EXAMINATION Left 01/13/2025 Performed by Renan Delaney MD at [facility] REPLACEMENT TOTAL KNEE Bilateral 09/2014 REVISION TOTAL JOINT KNEE POLY EXCHANGE Left 11/17/2024 Performed by Nafisa Navarro MD at [facility] TONSILLECTOMY x 2 as a child and second time in her 40`s Assessment Patient Assessment Therapy Problem List: Decreased ADL status, Decreased balance, Decreased endurance, Decreased high-level ADLs, Decreased mobility, Decreased safe judgement during ADL, Decreased LE strength Patient Response to Treatment: Tolerated evaluation without adverse reaction Mood/Affect: Anxious Rehab Prognosis: Good, With continued PT status post acute discharge Visit RN Communication: Yes Medical Record Reviewed: Yes PT Type of Visit: Evaluation Precautions Activity: early mobility / pass - okay per RN Equipment: RW, gait belt, TY stedy, bradford, IV, repositioning sling placed in chair Weight Bearing Status: PWB L LE (40-60# 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: Yes Other: high fall risk, fearful of falling Pain Assessment Pain Assessment: 0-10 FACES Pain Rating Scale: 9 Observed Behavior: Resting Pain Location: Leg Pain Orientation: Left, Lower Pain Intervention(s): Cold applied, Repositioned, Ambulation/increased activity, Emotional support Response to Interventions: Quiet, No longer crying (RN aware) Pain 2 Observed Behavior: Resting FACES Pain Rating Scale: 9 Home Living Type of Home: Mobile home Home Layout: One level Stairs to Enter: ramp Hand Rails: Bilateral Stairs in Home: 1 step into bathroom Hand Rails in Home: None Bathroom Shower/Tub: Walk-in shower Bathroom Toilet: Standard Bathroom Equipment: Shower chair, Hand-held shower, Grab bars around toilet, Toilet raiser Home Equipment: Rolling walker, 4 Wheeled walker, Wheelchair-manual Other : pt reports use of 4WW and wheelchair for mobility around home. Prior Function Lives With: Alone Receives Help From: Other (Comment), Home health (pt reports neighbor watching her cat while she is in hospital, denies local support. Pt receiving nursing, PT and OT since discharge home in November 2024 from rehab.) Level of Mobility: Independent with ADLs and functional transfers or gait Homemaking Assistance: Independent ( I'm alone so I have to. ) Other: Pt hospitalized May 2024 s/p fall and at rehab through Sep 2024. Returned to hospital late September and discharged home November 2024 from rehab. ADL / IADL Hand Dominance: Right Hearing / Speech / Vision Hearing: Within Functional Limits Speech: Within Functional Limits Current Vision: Wears glasses only for reading Cognition Overall Cognitive Status: Exceptions to Within Functional Limits Orientation Level: Oriented X4 Safety Judgment: Decreased awareness of need for assistance, Decreased awareness of need for safety Insight of Deficits: Decreased awareness of deficits Problem Solving: Reduced Interfering Components: Attention - sustained, Other (comment) (anxiety) Bed Mobility Supine to Sit: Min assist, Right Sit to Supine: (remained up in chair with call light in reach) Other: HOB elevated, use of bedrail. Increased time /effort required for mobility Transfers Sit to Stand: Max assist (2-person assist) Stand to Sit: Mod assist (2-person assist) Other: Pt stood from elevated EOB to walker with max assist x 2. Pt fearful of putting too much weight through L LE and sat abruptly when attempting to advance L LE. With TY stedy pt able to stand with 2-person assist and transfer to chair. Bed elevated, pt required increased time and effort due to anxiety with mobility. Gait Other: not appropriate to attempt at this time Balance Sitting Balance: Static: Fair Sitting Balance: Dynamic: Fair ((-)) Standing Balance: Static: Poor Standing Balance: Dynamic: Poor Other: standing balance with bilat UE support RUE Assessment: (see OT eval) LUE Assessment: (see OT eval) RLE Assessment: (functional weakness, 4/5 throughout) LLE Assessment: Exceptions to WFL (functional weakness, <3/5 throughout) Activity Tolerance Endurance: Tolerates >30 minutes activity with rest breaks Other: frequent rest breaks Plan Physical Therapy Care Plan Physical Therapy Care Plan (Active) Template: PT - Physical Therapy Problem: Activity Tolerance Dates: Start: 01/14/25 Disciplines: PT Goal: Tolerate > 30 minutes of activity WITH rest breaks Dates: Start: 01/14/25 Expected End: 02/03/25 Description: Goal Description: Patient to perform functional range / strength exercises to improve functional strength, balance and activity tolerance for improved independence and safety with mobility. Disciplines: PT Problem: Bed Mobility Dates: Start: 01/14/25 Disciplines: PT Goal: Patient will perform bed mobility with Minimum Assist Dates: Start: 01/14/25 Expected End: 02/03/25 Description: Goal Description: Patient to perform mobility with good safety awareness. Disciplines: PT Problem: Gait Dates: Start: 01/14/25 Disciplines: PT Goal: Patient will perform gait with Minimum Assist Dates: Start: 01/14/25 Expected End: 02/03/25 Description: With___RW_,__10__feet Goal Description: Pt to perform activity while maintaining partial weight bearing status. Disciplines: PT Problem: Sitting Balance Dates: Start: 01/14/25 Disciplines: PT Goal: Improve balance to good Dates: Start: 01/14/25 Expected End: 02/03/25 Description: Static Dynamic Disciplines: PT Problem: Standing Balance Dates: Start: 01/14/25 Disciplines: PT Goal: Improve balance to fair Dates: Start: 01/14/25 Expected End: 02/03/25 Description: Static Dynamic Disciplines: PT Problem: Strength Dates: Start: 01/14/25 Disciplines: PT Goal: Improve strength Dates: Start: 01/14/25 Expected End: 02/03/25 Description: Of extremity/ location: bilat LE to WFL To facilitate: Disciplines: PT Problem: Transfers Dates: Start: 01/14/25 Disciplines: PT Goal: Patient will perform transfers with Minimum Assist Dates: Start: 01/14/25 Expected End: 02/03/25 Description: Goal Description: Patient to perform mobility with good safety awareness and able to maintain PWB status Disciplines: PT Physical Therapy Care Plan (Resolved) There are no resolved problems. Principal Problem: Closed fracture of proximal end of left tibia, unspecified fracture morphology, initial encounter Occupational Therapy Evaluation Discharge Recommendations OT Recommendations : Residential Facility SNF/ECF Comments: Due to decline in functional status, recommend SNF to address safety, ADL and mobility deficits to maximize independence and decrease caregiver burden. Pt is a high fall risk and unable to safely care for self at this time. 6 Clicks: Daily Activity Putting on and taking off regular lower body clothing?: A lot Bathing (including washing, rinsing, drying)?: A lot Toileting, which includes using toilet, bedpan or urinal?: Total ([place]) Putting on and taking off regular upper body clothing?: A lot Taking care of personal grooming such as brushing teeth?: A little Eating meals?: None Scoring Daily Activity Raw Score: 14 CMS G Code Modifier: CK Therapy Plan Need for skilled Occupational Therapy to address deficits in ADL independence and functional mobility due to a status decline resulting from closed fracture of proximal end of left tibia. Pt is a 69 y/o female s/p fall onto L side while ambulating with walker. Xray L hip (-) acute Xray L tib/fib showed transverse fracutre proximal tibia. CT L knee showed tibia / fibula fracture. Ortho consult: pt is at high risk for femur fracture; needs prophylactic fixation in the future. 01/13 pt underwent ORIF L tibial shaft fracture. PWB LLE. 01/14 Hgb 7.7 PMH significant for L TKA; pt with periprosthetic fracture 05/2024 and underwent ORIF. Pt with posterior dislocation of L tibial component 10/2024, resulting in revision L TKA. Pt has been in rehab s/p each procedure. Past Medical History: Diagnosis Date Anemia iron deficiency Arthritis Asthma Atrial fibrillation Atrial fibrillation (HCC) [I48.91] 07/17/2017 Bilateral shoulder pain 05/04/2019 Bladder disorder 11/10/2016 Cataract Cervical disc disorder CKD (chronic kidney disease) renal insuff/follows with Dr Camacho never on dialysis Dental disease chipped Depression Depression with anxiety 10/27/2016 Disc disorder cervical, thoracic, lumbosacral Dislocation of left knee, initial encounter 11/16/2024 Dry eye syndrome 07/28/2016 Edema legs Falls frequently Gastrointestinal hemorrhage 10/05/2022 Added automatically from request for surgery [id number] GERD (gastroesophageal reflux disease) Giant cell arteritis ([facility]) 07/20/2018 Hyperlipidemia Hypertension Low back pain Lumbar disc disorder LVH (left ventricular hypertrophy) AND DIASTOLIC DYSFUNCTION Lymphedema Macular drusen, bilateral 07/28/2016 Migraine Mononucleosis Neuropathy Obesity h/o bariatric surgery 01/2018, lost >100# Osteoarthritis of cervical spine 02/24/2019 Posterior vitreous detachment of right eye 03/03/2019 Presbyopia 03/18/2019 Prolonged Q-T interval on ECG 12/2018 Rotator cuff arthropathy of right shoulder 09/16/2019 Added automatically from request for surgery [id number] Sleep apnea uses c pap/states doesn`t use every night Status post bariatric surgery 02/24/2019 Thoracic disc disorder Tinnitus Urinary incontinence Urinary urgency UTI (urinary tract infection) 03/18/2022 Visual impairment glasses Vitreous floaters of right eye 03/03/2019 Vitreous syneresis of left eye 03/03/2019 White matter abnormality on MRI of brain 02/24/2019 Past Surgical History: Procedure Laterality Date BIOPSY ARTERY TEMPORAL Bilateral 07/28/2018 Performed by Jany Mesa MD at [facility] BIOPSY MUSCLE LOWER EXTREMITY Right 04/05/2019 Performed by Zaida Blue MD at [facility] COLONOSCOPY Left Lateral 10/07/2022 Performed by Gissell Ye MD at [facility] DILATION AND CURETTAGE OF UTERUS 2015 EGD Left Lateral 10/07/2022 Performed by Gissell Ye MD at [facility] GALLBLADDER SURGERY 1979`s HYSTEROSCOPY 2016 LAPAROSCOPIC SLEEVE GASTRECTOMY/ CLOSURE DIAPHRAGMATIC CRUA N/A 07/28/2018 Performed by Zaida Gil MD at [facility] NASAL SEPTUM SURGERY 1989`s OPEN REDUCTION INTERNAL FIXATION FEMUR Left 06/03/2024 Performed by Rafat Sepulveda MD at [facility] OPEN REDUCTION INTERNAL FIXATION TIBIA WITH STRESS EXAMINATION Left 01/13/2025 Performed by Renan Delaney MD at [facility] REPLACEMENT TOTAL KNEE Bilateral 09/2014 REVISION TOTAL JOINT KNEE POLY EXCHANGE Left 11/17/2024 Performed by Nafisa Navarro MD at [facility] TONSILLECTOMY x 2 as a child and second time in her 40`s OT Treatment/Interventions: ADL retraining, Functional transfer training, UE strengthening/ROM, Endurance training, Cognitive reorientation, Patient/family training, Equipment eval/education, Balance, Bed mobility, Compensatory technique education, Functional activities OT Frequency: 5-6days/week OT Duration: LOS Assessment Patient Assessment Therapy Problem List: Decreased ADL status, Decreased balance, Decreased endurance, Decreased high-level ADLs, Decreased mobility, Decreased safe judgement during ADL, Decreased LE strength, Decreased cognition, Decreased self-care trans, Decreased UE ROM, Decreased UE strength Patient Response to Treatment: Tolerated evaluation without adverse reaction Mood/Affect: Anxious Rehab Prognosis: Good, With continued OT status post acute discharge Visit RN Communication: Yes Medical Record Reviewed: Yes OT Type of Visit: Evaluation Precautions Activity: Early mobility: pass Equipment: RW, gait belt, TY stedy, bradford, IV, repositioning sling placed in chair Weight Bearing Status: PWB L LE (40-60#) 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: Yes Oxygen Used: Room air Other: High fall risk, anxiety/fear of falling, h/o falls Pain Assessment Pain Assessment: 0-10 FACES Pain Rating Scale: 7 Pain Location: Leg Pain Orientation: Left, Lower Pain Intervention(s): Repositioned, Ambulation/increased activity, Emotional support Response to Interventions: Quiet (RN notified.) FACES Pain Rating Scale: 7 Home Living Type of Home: Mobile home Home Layout: One level Stairs to Enter: Ramp Hand Rails: Bilateral Stairs in Home: 1 step from bedroom to bathroom Hand Rails in Home: None Bathroom Shower/Tub: Walk-in shower Bathroom Toilet: Standard Bathroom Equipment: Shower chair, Hand-held shower, Grab bars around toilet, Toilet raiser Bathroom Accessibility: Accessible (Not accessible via RW; uses countertop support.) Home Equipment: Rolling walker, 4 Wheeled walker, Wheelchair-manual, Other (Comment) (Adjustable bed) Other : Pt reports using both 4WW and wheelchair for mobility within home. Prior Function Lives With: Alone Receives Help From: Neighbor, Home health (Pt reports neighbor is watching her cat. Pt was receiving RN/OT/PT since discharge from rehab.) Level of Mobility: Independent with ADLs and functional transfers or gait (Grossly Mod I to independent; use of AD for mobility.) Homemaking Assistance: Needs assistance Other: Pt states she's primarily independent with IADL since living alone. Pt has not been driving as of recent. Pt usually has meals delivered; pt heats up meals/makes sandwiches. Other: Pt was hospitalized 05/2024 s/p fall; pt at rehab through 09/2024. Pt returned to hospital 10/2024 and discharged home 11/2024. ADL / IADL Hand Dominance: Right Where Assessed: Edge of bed, Chair Eating Assistance: Independent Grooming Assistance: Standby assist (Seated in chair.) Bathing/Showering Assistance: Mod assist Toilet/Commode Assistance: Total assist ([place]) UE Dressing Assistance: Mod assist LE Dressing Assistance: Max assist Footwear Assistance: Total assist Footwear Deficit: R sock, L sock Other: Assist required to david bilateral socks; bradford catheter in place. Pt participated in grooming/oral care while seated in chair with SBA; increased time required with all tasks. Significant assist required with LB ADL tasks at this time due to weakness, fatigue and decreased balance. Home Management - IADL Other: Assist required to david bilateral socks; bradford catheter in place. Pt participated in grooming/oral care while seated in chair with SBA; increased time required with all tasks. Significant assist required with LB ADL tasks at this time due to weakness, fatigue and decreased balance. Hearing / Speech / Vision Hearing: Within Functional Limits Speech: Within Functional Limits Current Vision: Wears glasses only for reading Cognition Overall Cognitive Status: Exceptions to Within Functional Limits Arousal/Alertness: Appropriate responses to stimuli Attention Span: Attends with cues to redirect Memory: Decreased recall of recent events Orientation Level: Oriented X4 Following Commands: Follows one step commands without difficulty Safety Judgment: Decreased awareness of need for assistance, Decreased awareness of need for safety Awareness of Errors: Decreased awareness of errors Insight of Deficits: Decreased awareness of deficits Problem Solving: Reduced Interfering Components: Attention - sustained, Other (comment) (Anxiety) Other: Pt admits to being very talkative; cues required for redirection. Pt noted with significant fear of falling; anxiety with mobility and maintaining PWB precautions. Bed Mobility Supine to Sit: Min assist, Right Sit to Supine: (NT; pt left up in chair with needs met, call light within reach and repositioning sling in place.) Other: HOB elevated; use of bedrail. Increased time/effort required. Transfers Sit to Stand: Max assist (x2) Stand to Sit: Mod assist (x2) Other: Height of bed elevated; pt stood from EOB with Max A x2 using RW. Cues for hand placement, PWB precautions and technique. Pt fearful of putting too much weight on LLE and abruptly sat back onto bed when attempting to take a step. Utilized Ty Stedy for transfer to chair with Max A x2 for safety and technique; bed remained elevated. Increased time/effort and reassurance required. Gait Other: NT; not appropriate at this time. Balance Balance Evaluation: Exceptions to Functional Limits Sitting Balance: Static: Fair Sitting Balance: Dynamic: Fair (-) Standing Balance: Static: Poor Standing Balance: Dynamic: Poor Other: BUE support on RW/Ty Stedy during standing. LUE Assessment: (Limited shoulder AROM; pt reports RTC injury. Generalized weakness throughout.) RLE Assessment: (Limited shoulder AROM; generalized weakness throughout.) Activity Tolerance Endurance: Tolerates >30 minutes activity with rest breaks Other: Activity limited by pain, anxiety, fatigue and weakness; frequent rest breaks and reassurance required. Plan Occupational Therapy Care Plan Occupational Therapy Care Plan (Active) Template: OT - Occupational Therapy Problem: Activity Tolerance Dates: Start: 01/14/25 Disciplines: OT Goal: Tolerate > 30 minutes of activity WITHOUT rest breaks Dates: Start: 01/14/25 Expected End: 02/04/25 Description: Goal Description: Disciplines: OT Problem: Bathing LB Dates: Start: 01/14/25 Disciplines: OT Goal: Patient will perform bathing LB with Minimum Assist Dates: Start: 01/14/25 Expected End: 02/04/25 Description: With use of compensatory strategies and/or AE as needed. Disciplines: OT Problem: Bathing UB Dates: Start: 01/14/25 Disciplines: OT Goal: Patient will perform bathing UB with Set-Up Dates: Start: 01/14/25 Expected End: 02/04/25 Description: Goal Description: Disciplines: OT Problem: Bed Mobility Dates: Start: 01/14/25 Disciplines: OT Goal: Patient will perform bed mobility with Stand By Assist Dates: Start: 01/14/25 Expected End: 02/04/25 Description: Goal Description: Disciplines: OT Problem: Dressing LB Dates: Start: 01/14/25 Disciplines: OT Goal: Patient will perform dressing LB with Minimum Assist Dates: Start: 01/14/25 Expected End: 02/04/25 Description: With use of compensatory strategies and/or AE as needed. Disciplines: OT Problem: Dressing UB Dates: Start: 01/14/25 Disciplines: OT Goal: Patient will perform dressing UB with Set-Up Dates: Start: 01/14/25 Expected End: 02/04/25 Description: Goal Description: Disciplines: OT Problem: Functional Mobility Dates: Start: 01/14/25 Disciplines: OT Goal: Patient will perform functional mobility with Minimum Assist Dates: Start: 01/14/25 Expected End: 02/04/25 Description: Goal Description: Disciplines: OT Problem: Grooming Dates: Start: 01/14/25 Disciplines: OT Goal: Patient will perform grooming with Modified [place] Dates: Start: 01/14/25 Expected End: 02/04/25 Description: Goal Description: Disciplines: OT Problem: Sitting Balance Dates: Start: 01/14/25 Disciplines: OT Goal: Improve balance to good Dates: Start: 01/14/25 Expected End: 02/04/25 Description: Static Dynamic Disciplines: OT Problem: Standing Balance Dates: Start: 01/14/25 Disciplines: OT Goal: Improve balance to fair Dates: Start: 01/14/25 Expected End: 02/04/25 Description: Static Dynamic Disciplines: OT Problem: Strength Dates: Start: 01/14/25 Disciplines: OT Goal: Improve strength Dates: Start: 01/14/25 Expected End: 02/04/25 Description: Pt will be Mod I with BUE HEP to maximize overall strength and activity tolerance for ADL/IADL. Disciplines: OT Problem: Toilet Transfers Dates: Start: 01/14/25 Disciplines: OT Goal: Patient will perform toilet transfers with Minimum Assist Dates: Start: 01/14/25 Expected End: 02/04/25 Description: Goal Description: Disciplines: OT Problem: Toileting Dates: Start: 01/14/25 Disciplines: OT Goal: Patient will perform toileting with Minimum Assist Dates: Start: 01/14/25 Expected End: 02/04/25 Description: Goal Description: Disciplines: OT Problem: Transfers Dates: Start: 01/14/25 Disciplines: OT Goal: Patient will perform transfers with Minimum Assist Dates: Start: 01/14/25 Expected End: 02/04/25 Description: Goal Description: Disciplines: OT Occupational Therapy Care Plan (Resolved) There are no resolved problems. Principal Problem: Closed fracture of proximal end of left tibia, unspecified fracture morphology, initial encounter Reviewed with we will resume home flecainide dosing and add low-dose beta hayder ALEXANDRU Murrieta 01/14/25 1413 Problem: Potential for Compromised Skin Integrity Goal: Skin integrity is maintained or improved Description: Patient's goal is: INTERVENTIONS 1. Perform initial skin assessment on admission and as needed 2. Turn patient every 2 hours and PRN 3. Relieve pressure to bony prominences 4. Avoid shearing 5. Keep skin clean and dry 6. Alternate a full bath with partial baths for elderly 7. Apply lotion/moisturizer on skin 8. Monitor patient's hygiene practices 9. Float heels 10. Collaborate with interdisciplinary team and initiate plans and interventions as needed Outcome: Progressing Note: Evaluation of progress towards goal: No new skin breakdown at this time continue to monitor for signs of new breakdown Goal: Patient's nutritional intake is adequate Description: Patient's goal is: INTERVENTIONS 1. Assess and monitor food intake and supplements, patient food preferences, nausea, vomiting, labs, oral cavity (gums, teeth, tongue, mucosa), proper denture fit, and cultural beliefs 2. Monitor for signs of hypoglycemia and hyperglycemia 3. Collaborate with interdisciplinary team and initiate plan and interventions as ordered 4. Monitor patient's weight 5. Assist patient with meals/food selection 6. Assist patient with eating 7. Allow adequate time for meals 8. Provide pleasant environment during mealtime 9. Increase social contact during mealtimes 10. Plan activities to conserve energy 11. Encourage/perform oral hygiene as appropriate 12. Encourage patient to take dietary supplement as ordered 13. Collaborate with clinical gluer and wedger 14. Include patient/ patient's senior human resources representative in decisions related to nutrition Outcome: Progressing Note: Evaluation of progress towards goal: Adequate nutritional intake per shift. Problem: Urinary Incontinence Goal: Perineal skin integrity is maintained or improved Description: INTERVENTIONS 1. Assess genitourinary system, perineal skin, labs (urinalysis), and history of incontinence to include past management, aggravating, and alleviating factors 2. Keep skin clean and dry 3. Apply skin protectant 4. Develop skin care regimen 5. Provide privacy when changing patients incontinence device to maintain their dignity 6. Consider placing an indwelling catheter 7. Collaborate with interdisciplinary team and initiate plans and interventions as needed Outcome: Progressing Note: Evaluation of progress towards goal: No new skin breakdown at this time continue to monitor for signs of new breakdown. [place] catheter in place. Skin integrity remains in stable condition. Problem: Inadequate Airway Clearance Goal: Patient will maintain patent airway Description: INTERVENTIONS 1. Assess and monitor breath sounds, cough and sputum (if present) 2. Monitor respiratory rate and oxygen saturation 3. Collaborate with respiratory therapy to administer medication, oxygen, and suitable airway clearance techniques as ordered 4. Position patient for maximum ventilatory efficiency; elevate head of bed at least 30 degrees if appropriate 5. Provide adequate fluid intake to liquify secretions if appropriate 6. Suction secretions as indicated to maintain patent airway 7. Instruct patient to turn, cough, and deep breathe; encourage incentive spirometer if indicated Outcome: Progressing Note: Evaluation of progress towards goal: Respiratory status remains in stable condition. Remains w/o ss of distress or shortness of breath. Problem: Inadequate Breathing Pattern Goal: Patient will achieve/maintain normal respiratory rate/effort Description: Patient's goal is: INTERVENTIONS 1. Assess and monitor respiratory rate, effort, breathing pattern, and oxygenation 2. Monitor patient for restlessness, anxiety, air hunger 3. Assess physical activity tolerance 4. Assess tobacco history; ask, advise, and refer as appropriate 5. Collaborate with interdisciplinary team and initiate plans/interventions as needed Outcome: Progressing Note: Evaluation of progress towards goal: Respiratory status remains in stable condition. Remains w/o ss of distress or shortness of breath. Goal: Patient will maintain effective ventilation Description: Patient's goal is: INTERVENTIONS 1. Assess and monitor vital signs, respiratory status (to include respiratory rate, depth, effort, and breath sounds), oxygen saturation, oral mucosa, tongue, pain, and labs (ABGs). 2. Collaborate with interdisciplinary team and initiate plans and interventions as needed 3. Oxygen therapy as indicated 4. Position patient for maximum ventilatory efficiency 5. Instruct patient to turn, cough, and deep breathe; encourage incentive spirometer if indicated 6. Plan activities to conserve energy 7. Encourage ambulation/activity per patient's tolerance 8. Collaborate with patient/RT to administer medications/treatments 9. Monitor lab/diagnostic results Outcome: Progressing Note: Evaluation of progress towards goal: Respiratory status remains in stable condition. Remains w/o ss of distress or shortness of breath. Problem: Anxiety Goal: Anxiety is at manageable level Description: Patient's goal is: INTERVENTIONS 1. Assess and monitor patient's anxiety level 2. Monitor for signs and symptoms of anxiety both physical and emotional (heart palpitations, chest pain, shortness of breath, headaches, nausea, feeling jumpy, restlessness, irritable, apprehensive) 3. Reorient/orient patient to unit/surroundings 4. Explain treatment plan 5. Explain tests/procedures prior to initiation 6. Encourage participation in care 7. Encourage verbalization of concerns/fears 8. Assess coping mechanisms 9. Assist in developing anxiety-reducing skills 10. Administer complimentary therapies 11. Manage patient's environment 12. Limit or eliminate stimulants such as caffeine and nicotine 13. Collaborate with ancillary departments 14. Include patient/patient senior human resources representative in decisions related to anxiety Outcome: Progressing Note: Evaluation of progress towards goal: Pt encouraged to express needs and concerns; verbalizes comfort at this time w/o ss of anxiety heart palpitations, chest pain, shortness of breath, headaches, nausea, feeling jumpy, restlessness, irritable, apprehensive. Problem: Activity Intolerance/Impaired Mobility Goal: Mobility/activity is maintained at optimum level for patient Description: Patient's goal is: INTERVENTIONS 1. Assess and monitor patient barriers to mobility and need for assistive/adaptive devices 2. Assess patient's emotional response to limitations 3. Collaborate with interdisciplinary teams and initiate plans and interventions as ordered 4. Encourage independent activity per tolerance 5. Maintain proper body alignment 6. Perform active/passive ROM as tolerated/ordered 7. Coordinate activities to conserve energy 8. Reposition patient 9. Ensure adequate rest/sleep time Outcome: Progressing Note: Evaluation of progress towards goal: PT/OT on board. Mobility status improving; will continue to monitor according to pt care plan and safe patient handling and transferring procedures. Problem: Inadequate Coping Goal: Demonstrates and verbalizes ability to cope effectively Description: Patient's goal is: INTERVENTIONS 1. Patient is able to verbalize feelings related to emotional state 2. Encourage verbalization of feelings, perceptions, fears, stressors, loss of loved ones 3. Encourage verbalization of problems out of their control 4. Encourage participation in care and self management 5. Inform patient of all treatment/care prior to providing care 6. Collaborate with pastoral/spiritual care, social human services assistants, mental health counselor as needed. 7. Instruct patient on diversional activities such as physical activity, distraction, and deep breathing exercises to assist with coping 8. Involve patient's senior human resources representative in care Outcome: Progressing Note: Evaluation of progress towards goal: Pt encouraged to express needs and concerns; verbalizes comfort at this time. Problem: Pain Goal: Patient goal is pain score less than 4, able to rest, and participant in treatment plan as appropriate Description: INTERVENTIONS: 1. Encourage patient or legal senior human resources representative to report early pain and ask for pain medicine when needed 2. Assess pain using appropriate pain scale and include the scale used when documenting 3. Administer analgesics based on type and severity of pain and evaluate response within appropriate time frame 4. Implement non-pharmacological measures as appropriate and evaluate response 5. Consider cultural and social influences on pain and pain management 6. Notify LIP if interventions ineffective or patient reports new pain 7. Monitor vital signs including pulse ox 8. Reassess pain per policy 9. Teach patient or legal senior human resources representative interventions for comforting Outcome: Progressing Note: Evaluation of progress towards goal: Verbalizes adequate comfort level. Please see MAR for pain management orders. Problem: Safety Goal: Patient will be injury free during hospitalization Description: INTERVENTIONS: 1. Assess patient's risk for falls and implement fall prevention plan of care per policy 2. Provide and maintain a safe environment 3. Proper use of double Identifiers 4. Medication administration using the 5 rights 5. Hand hygiene 6. Specimens are labeled at the bedside 7. Instruct patient/ patient senior human resources representative about use of safety devices 8. Include patient/ patient senior human resources representative in decisions related to safety Outcome: Progressing Note: Evaluation of progress towards goal: Proper identifiers used with patient care and medication administration. Remains free of injury during shift. Problem: Infection Goal: Absence of infection during hospitalization Description: INTERVENTIONS 1. Assess and monitor for signs and symptoms of infection. 2. Monitor lab/diagnostic results. 3. Monitor all insertion sites i.e., indwelling lines, tubes and drains. 4. Monitor endotracheal (as able) and nasal secretions for changes in amount and color. 5. Administer medications as ordered. 6. Instruct and encourage patient and family to use good hand hygiene technique. 7. Identify and instruct patient/patient senior human resources representative in use of appropriate isolation precautions for identified infection/symptoms. 8. Provide and discuss with patient/patient senior human resources representative on educational MDRO sheet. 9. Encourage and monitor nutritional status daily and consult gluer and wedger if indicated. 10. Implement neutropenic guidelines as needed. Outcome: Progressing Note: Evaluation of progress towards goal: Skin integrity remains in stable condition; remains w/o ss of infection, fever, pain, or increased discomfort. Problem: Knowledge Deficit Goal: Patient/patient senior human resources representative demonstrates understanding of disease process, treatment plan, medications, and discharge instructions Description: INTERVENTIONS 1. Complete learning assessment and assess knowledge base 2. Provide teaching at level of understanding 3. Provide teaching via preferred learning method(s) Outcome: Progressing Note: Evaluation of progress towards goal: Verbalizes understanding of current treatment plan as educated. Will continue to educate for understanding. Problem: Discharge Planning Goal: Discharge to post-acute care, other facility, or home with appropriate resources Description: Patient's goal is: INTERVENTIONS 1. Conduct assessment to determine patient/family and health care team treatment goals, and need for post-acute services based on payer coverage, community resources, and patient preferences, and barriers to discharge 2. Coordinate with Social work, Care Navigation, and Utilization Review to arrange appropriate level of services according to patient's needs based on patient preference and payer coverage in collaboration with the physician and health care team 3. Address psychosocial, clinical, and financial barriers to discharge as identified in assessment in conjunction with the patient/family and health care team 4. Consult appropriate ancillary services (i.e.. PT/OT/ST, etc) as needed 5. Communicate with and update the patient/family, physician, and health care team regarding progress on the discharge plan 6. Identify discharge learning needs (meds, wound care, etc). 7. Arrange for needed discharge 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 as appropriate Outcome: Progressing Note: Evaluation of progress towards goal: Discharge planning in process; will continue to monitor for discharge needs. Problem: Moderate - High Risk Fall Score Description: Bach Fall Score of =/> 25 or indicated by [facility] Assessment Goal: Patient should be free from fall Description: Interventions: 1. Aldie to environment 2. Hourly rounds addressing the 4 P's (Pain, Positioning, Possessions, Potty) 3. Clear area of hazards (spills, clutter, electrical cords, unnecessary equipment) 4. Place equipment (bed & TV controls, call light, phone, urinal) within reach 5. Encourage patient to wear glasses and hearing aides as appropriate 6. Maintain bed in lowest position 7. Lock wheels on bed/wheelchair 8. Provide adequate lighting, including night light 9. Assess need for additional bedding, food/fluids, pain med's prior to sleep/routinely 10. Provide gripper slippers or personal non-skid footwear 11. Teach patient and patient senior human resources representative to maintain environment for safety and engage in all aspects of fall prevention program 12. Remind patient to call for help before getting out of bed 13. Initiate bed/chair/exit alarms supportive devices as appropriate, (chair wedge, no-skid floor mat, raised edge mattress, hip protectors) 14. Locate patient bed assignment for optimal visualization 15. Evaluate and identify Safe Patient Handling Equipment needs 16. Provide supervision when out of bed or chair 17. Utilize gait belt as needed to assist with ambulation 18. Place adaptive equipment (cane, walker) within reach 19. Request patient senior human resources representative bring adaptive equipment/mobility aids from home or obtain and provide as needed 20. Consult pharmacy regarding effects of med's affecting mobility, cognition, and alternatives 21. Obtain physician order for PT if risk factors associated with mobility are present 22. Obtain physician order for OT as appropriate 23. Utilize diversional activities 24. Educate patient and patient senior human resources representative how to maintain a safe environment during visitation times (notify nurse prior to leaving bedside) 25. Consider appropriateness of medical or non-biomedical engineering professor 26. Set up voiding schedule as appropriate (every 2 hours) Outcome: Progressing Note: Evaluation of progress towards goal: Call light within reach. Remains free of fall or injury. Environment free of clutter. DATE OF OPERATION: 01/13/2025 PREOPERATIVE DIAGNOSES: 1. Periprosthetic fracture around left total knee arthroplasty (M97.12XA). 2. Osteoporosis with associated left proximal tibia fracture (M80.0628). POSTOPERATIVE DIAGNOSES: 1. Periprosthetic fracture around left total knee arthroplasty (M97.12XA). 2. Osteoporosis with associated left proximal tibia fracture (M80.0628). OPERATION PERFORMED: 1. Open reduction, internal fixation of left proximal tibial shaft fracture around total knee arthroplasty (67180.22), unusual in that: a. The patient's bone quality was severely compromised due to severe osteoporosis. b. Intramedullary insertion of Simplex cement into the canal of the tibia was performed as well as attempts to place intramedullary cement around the intramedullary prosthetic stem. c. Fixation of the entire intramedullary canal with a 4 mm diameter Synthes elastic nail employed, in order to have some reinforcement of the entire bone. d. A medially placed, LCP, BECKA distal femoral titanium alloy plate was placed medially, employing cortical screw fixation through cement, as well as locking BECKA screws. 2. Stress examination left knee under anesthesia and fluoroscopy (19373.59). SURGEON: Renan Delaney MD. TIRE REBUILDER: Everton Estes MD, PGY2, Orthopedic Surgery Resident from the [facility]. ANESTHESIA: General. ESTIMATED BLOOD LOSS: 700 mL. INTRAOPERATIVE FLUIDS: 225 mL of autologous red blood cells from the Cell [employer], 3500 mL crystalloid, 250 mL of 5% albumin. URINARY OUTPUT: 400 mL, concentrated, of urine. INDICATIONS FOR SURGERY: Keila Allen is a 69-year-old, osteoporotic woman from [place], [place] who has had previous fragility fractures. In the past 1 of my partners, Dr. Rafat Sepulveda, fixed a fragility osteoporotic fracture of her distal femur around a total knee arthroplasty. She more recently had a polyethylene exchange of her left total knee by 1 of my other partners, Dr. Nafisa Navarro. The patient presented to the hospital with a simple fall, sustaining metaphyseal fracture of her tibia just below the base plate of her pre-existing total knee arthroplasty. I sat down with the patient last night when I saw her in the emergency room and reviewed all of her possible treatment options. Her leg and thigh are massive in size. It will be difficult to get any type of brace on this fracture. The patient would also like to try to get up and be more mobile and possibly walk earlier on this left leg. With her history of chronic renal failure, stage IV, previous gastric bypass, and multiple fragility fractures, her bone density and bone quality were not good and this would have impact on surgical fixation. My plan for this patient was to perform intramedullary reinforcement of her canal with bone cement. I will also place a large diameter elastic nail in the entire tibial canal. Her proximal tibia can be buttressed with a medially based Becka plate. The patient seemed to understand what will be involved with the surgical procedure. She agreed to proceed. Of note, she is at very high risk of sustaining another periprosthetic fracture around her distally-based distal femoral plate. I have told her I would like to prophylactically fix her proximal femur at some point in the future, but this could be reserved for a different day. She seemed to understand my rationale for this. The affected left thigh was marked. Witnessed informed consent was obtained. DESCRIPTION OF PROCEDURE: This obese woman, 5 feet 5 inches tall, 220 pounds, BMI almost 37, was taken to the operating theater where she was given a general anesthetic with endotracheal tube intubation. A Bradford urinary catheter was in place. Her urine was thick and cloudy. She had an arterial line placed by the anesthesiology service. Her right leg was placed on a radiolucent bone foam. The mobile C-arm fluoroscopy unit was available during the case. Spot and dynamic fluoroscopic images were taken as needed. The left leg was then examined. There was a previous healed midline scar from her recent polyethylene exchange of her total knee arthroplasty. Otherwise, the soft tissue conditions looked good. No tourniquet was used. With the patient's leg resting on a radiolucent bone foam, the entire left lower extremity from the foot to the upper thigh was scrubbed with chlorhexidine, dried, painted with DuraPrep and then draped off in the usual sterile fashion. Because this patient has severe kidney disease, I elected to give her preoperative prophylaxis with clindamycin. The patient received 900 mg of intravenous clindamycin for antibiotic prophylaxis. After an appropriate timeout, the mobile C-arm fluoroscopy unit was brought in. Varus and valgus stress examination of the left knee under fluoroscopy and anesthesia showed varus collapse of the knee. With this in mind, I elected to place my buttress plate medially. A long lateral incision was made under C-arm fluoroscopic guidance. Dissection was carried out through the skin and subcutaneous tissues. The fascia of the anterior compartment was gently elevated. The fracture site was then appreciated. A power lo was then used to make an approximately 3 x 2 cm long hole in the tibia at the fracture site. Two packs of Simplex low- viscosity bone cement were then inserted into the intramedullary canal. The cement was placed distally in the canal and as much cement as possible was attempted to be placed in the metaphyseal area as well. A cannulated awl was used to make an entry hole just adjacent to the total knee arthroplasty on C-arm fluoroscopic guidance. As the low-viscosity cement was allowed to set, a 4 mm diameter Synthes flexible elastic nail was placed into the hole proximally, past the fracture site, and it came down the canal of the tibia all the way down to the ankle. A valgus stress was placed on the knee as this was done to avoid varus collapse. A power lo was used to gently notch and then cut the elastic nail flush with the skin. Once the canal had set, an approximately 5 to 6 cm medial incision was made under C-arm fluoroscopic guidance. Dissection was carried out through the skin and subcutaneous tissues. The periosteum just distal to the pes anserine insertion was opened. A 9 hole, titanium alloy, left, BECKA plate was chosen. The plate was placed subperiosteally down the femur. Once it was in good position, selected 4.5 mm cortical screws were placed. Reasonable purchase through cement was obtained with these screws. The bone quality overall was poor, however. C-arm fluoroscopic imaging confirmed good position of the medial buttress plate. Selected locking Becka plates were placed both proximally and distally. The final construct was very stable. It came out to full extension. It was stable to varus and valgus stress. Final C- arm fluoroscopic images were taken and saved on the hospital PACS system. The wounds were all irrigated with saline solution. A hemostatic gelatin powder was placed into the wounds to help with postoperative hemostasis. The deep tissues were closed with Vicryl suture. The long lateral incision was closed with a running, #1, barbed, Stratafix suture. The skin over the anterolateral incision, as well as the medial incisions were closed with nylon sutures. It should be noted that after the original medial incision was made, 2 smaller incisions were made distally to palpate the plate and make sure it was on the bone. Small cortical and locking screws were able to be placed through these incisions. Sterile dressings were then applied. Cotton Webril padding was applied from the foot to the upper thigh. A circumferential double Bakari bandage was placed. Ms. Allen tolerated this procedure well. She was awakened in the operating room and taken to the postanesthesia recovery area in stable condition. I will allow the patient about 40 pounds of weightbearing only on the left leg. She will need a walker. She will need discharge disposition and follow up with me in my office in 2 weeks for a clinical and radiographic check. With her history of a previous gastric bypass, chronic renal failure, previous fragility fractures, I feel she is at high risk for a fracture above her distally based femoral implant. Once she recovers from the surgery, and improves her hemoglobin to a more normal range, I will recommend prophylactic fixation of her left femur above her femoral plate before she has a fracture there as well. The patient will be started on Lovenox for DVT prophylaxis and transitioned back to her normal dose of Coumadin. She will need discharge planning and again, she will need to follow up with me in the office in about 2 weeks. When the patient does come to my office, I will need an AP, cross- table lateral, and internal oblique view taken of her left tibia. RENAN DELANEY MD GMG/MODL J#: [id number] Physical Therapy PT Type of Visit: Medical deferral Reason For Medical Deferral: Medical procedure ongoing (Per RN pt is going to sx. today.) Procedure Procedures Maira Farnsworth 01/12/252023 ALEXANDRU Altamirano 01/17/258 documented in this encounter [facility] [employer] 01-18-2025 Miscellaneous Notes Patient called in and stated she is currently admitted to the hospital had surgery 01/13 by patient stated she is confused on what the plan is with her discharge stated she has talked to the nurse and hospitalist and they stated no one from Dr. Delaney' team is set to see her before discharge today patient stated she believes there was one more test/lab Dr. Delaney wanted her to have as well as some confusion on a [facility] facility patient would like a callback at [phone] to discuss Discussed with the pt that we cannot go forward with additional surgery at this time as her hgb is too low. She is going to dc to a SNF and follow up as an outpt. We will work on surgical timing as her hgb improves. The pt voices understanding. documented in this encounter [employer] 01-18-2025 Telephone encounter Note Patient called in and stated she is currently admitted to the hospital had surgery 01/13 by patient stated she is confused on what the plan is with her discharge stated she has talked to the nurse and hospitalist and they stated no one from Dr. Delaney' team is set to see her before discharge today patient stated she believes there was one more test/lab Dr. Delaney wanted her to have as well as some confusion on a [facility] facility patient would like a callback at [phone] to discuss [employer] 01-18-2025 Telephone encounter Note Discussed with the pt that we cannot go forward with additional surgery at this time as her hgb is too low. She is going to dc to a SNF and follow up as an outpt. We will work on surgical timing as her hgb improves. The pt voices understanding. [facility] Work Phone: 01-18-2025 Progress note Formatting of t his note might be different from the original. DISCHARGE PLANNING NOTE Case discussed in daily transition rounds and chart reviewed by CN. Discharge Plan remains: SNF: [facility]. Transport scheduled for 3 PM. HENS complete, discharge packet complete with BLS cert emailed to PTN. CN will continue to follow and is available should any further needs arise. - Melita Govea RN 01/18/25 12:37 PM [facility] 01-18-2025 Progress note Formatting of t his note might be different from the original. Retic level checked- still very low- will order another dose of rey prior to dc - if still here tomorrow- she will need another dose of rey ALEXANDRU Damon 01/18/25 1224 [facility] 01-18-2025 Hospital course Narrative Images from the original note were not included. [facility]- Hospital Medicine Discharge Summary DISCHARGE NOTE Demographics: Patient Name: Keila Allen : 1955 DATE OF ADMISSION: 01/12/2025 DATE OF DISCHARGE: 01/18/2025 DISCHARGE DIAGNOSES: Principal Problem: Closed fracture of proximal end of left tibia, unspecified fracture morphology, initial encounter CONSULTANTS: Consulting Providers Provider Service Specialty Renan Delaney MD Orthopedics Orthopedic Surgery [facility] Benign Hematology -- Hematology Promedic Physician Cardiology -- Cardiology PCP: Patient Care Team: Maryjane Deutsch APRN-KAREN as PCP - General (Nurse Practitioner) Daniel Camacho MD as Referring Physician (Nephrology) Dimas Toledo MD as Consulting Physician (Cardiology) Ivan Cleary MD as Consulting Physician (Ophthalmology) Zaida Gil MD as Referring Physician (General Surgery) Evangelist De Oliveira MD as Referring Physician (Neurosurgery) Quirino Rice MD as Consulting Physician (Urology) Javan Julien MD as Referring Physician (Neurology) Patrice Hernandez MD as Surgeon (Otolaryngology) Zaida Blue MD as Consulting Physician (General Surgery) Jose Velasco MD as Referring Physician (Rheumatology) HOSPITAL COURSE SUMMARY: Per HPI: This is a 69-year-old woman who has a history of frequent fall presenting to the ER for evaluation of left knee pain after a fall. 1. Mechanical fall with resultant left proximal tibial periprosthetic fracture and fibular fracture with history of osteoporosis status post multiple fractures. The patient is status post open reduction internal fixation of tibia. Continue calcium and vitamin-D supplementation. Partial weight-bearing on the left lower extremity 2. Paroxysmal atrial fibrillation on long-term anticoagulation with warfarin. Flecainide resumed as per Cardiology. 3. Acute on chronic kidney disease stage IIIB Renal function is improving almost at baseline 4. History of gastric sleeve 5 obstructive sleep apnea 6. Chronic bilateral lower extremity lymphedema 7. Acute perioperative blood loss anemia status post blood transfusion on January 15, 2025 8. Klebsiella UTI patient on Bactrim which is renally dosed patient does have an allergy to penicillin and cephalosporin. Has received 2 doses this far would need to monitor renal function quite closely given her underlying CKD Barrier to discharge is awaiting [facility] facility insurance authorization Exam: BP 118/88 Pulse 72 Temp 36.4 C (97.5 F) (Oral) Resp 14 Ht 165.1 cm (5' 5 ) Wt 99.8 kg (220 lb) SpO2 98% BMI 36.61 kg/m Intake/Output Summary (Last 24 hours) at 01/18/2025 1144 Last data filed at 01/18/2025 0905 Gross per 24 hour Intake -- Output 1700 ml Net -1700 ml BP 118/88 Pulse 72 Temp 36.4 C (97.5 F) (Oral) Resp 14 Ht 165.1 cm (5' 5 ) Wt 99.8 kg (220 lb) SpO2 98% BMI 36.61 kg/m General: Not in acute distress. Cooperative Neurological: alert and oriented times three. Grossly non focal Head, eyes and throat: Atraumatic, Conjunctive clear. Oral mucosa is clear and no exudate Neck: supple. Trachea midline CVS: regular rate and rhythm. No rub or murmur. Lungs: Clear to auscultation bilaterally. No crackles or wheezes. Abdomen: Positive bowel sounds. Soft and nontender. No organomegaly Extremities: No edema. No cyanosis Skin: no visible rashes. No visible lesions. Grossly intact. Labs: Recent Results (from the past 48 hours) Zinc, Serum Collection Time: 01/16/25 2:27 PM Result Value Ref Range Zinc, S 49 (L) 60 - 106 mcg/dL Copper, S Collection Time: 01/16/25 2:27 PM Result Value Ref Range Copper, S 110 77 - 206 mcg/dL Crossmatch RBC:Number of Units: 2 Collection Time: 01/17/25 1:56 AM Result Value Ref Range Blood component type [id number] Unit number [id number] Unit ABO A Unit RH NEG Crossmatch Compatible Status of unit TRANSFUSED Expiration Date [id number] BB Type Barcode 0600 Protime & INR Collection Time: 01/17/25 6:02 AM Result Value Ref Range Protime 45.0 (H) 9.8 - 13.2 sec Inr 4.0 (H) 0.9 - 1.2 Basic Metabolic Panel Collection Time: 01/17/25 1:15 PM Result Value Ref Range Sodium 141 134 - 146 mmol/L Potassium, Bld 4.2 3.5 - 5.0 mmol/L Chloride 108 98 - 109 mmol/L CO2 25 22 - 32 mmol/L Anion gap 8 5 - 15 mmol/L BUN 39 (H) 5 - 27 mg/dL Creatinine 1.62 (H) 0.40 - 1.00 mg/dL Glucose 146 (H) 65 - 99 mg/dL Calcium 8.9 8.5 - 10.5 mg/dL eGFR (CKD-EPI)non-race dependent 34 (L) >59 ml/min/1.73sq.m CBC auto differential Collection Time: 01/17/25 1:15 PM Result Value Ref Range White Blood Cells 8.1 4.0 - 11.0 X10E9/L RBC count 2.60 (L) 3.80 - 5.20 X10E12/L Hemoglobin 8.2 (L) 11.7 - 15.5 g/dL Hematocrit 24.2 (L) 35 - 47 % MCV 93 80 - 100 fL MCH 31.4 27 - 34 pg MCHC 33.8 32 - 36 g/dL RDW 15.6 (H) 11.5 - 15.0 % Platelets 164 150 - 450 X10E9/L MPV 7.8 7 - 12 fL Myelocyte 1.0 % Metamyelocyte 1.0 % Band 2.0 % Seg neutrophil 84.0 % Lymphocyte 8.0 % Monocytes 4.0 % Neutrophils Absolute (M) 7.0 (H) 1.5 - 6.6 X10E9/L Lymphocytes Absolute 0.6 (L) 1.0 - 3.5 X10E9/L Monocytes Absolute 0.3 0 - 0.9 X10E9/L Polychromasia 1+ (A) NONE^NONE Protime & INR Collection Time: 01/18/25 6:00 AM Result Value Ref Range Protime 33.4 (H) 9.8 - 13.2 sec Inr 2.9 (H) 0.9 - 1.2 Basic Metabolic Panel Collection Time: 01/18/25 6:00 AM Result Value Ref Range Sodium 144 134 - 146 mmol/L Potassium, Bld 4.9 3.5 - 5.0 mmol/L Chloride 111 (H) 98 - 109 mmol/L CO2 25 22 - 32 mmol/L Anion gap 8 5 - 15 mmol/L BUN 32 (H) 5 - 27 mg/dL Creatinine 1.55 (H) 0.40 - 1.00 mg/dL Glucose 85 65 - 99 mg/dL Calcium 8.5 8.5 - 10.5 mg/dL eGFR (CKD-EPI)non-race dependent 36 (L) >59 ml/min/1.73sq.m CBC auto differential Collection Time: 01/18/25 6:00 AM Result Value Ref Range White Blood Cells 8.5 4.0 - 11.0 X10E9/L RBC count 2.61 (L) 3.80 - 5.20 X10E12/L Hemoglobin 8.1 (L) 11.7 - 15.5 g/dL Hematocrit 24.3 (L) 35 - 47 % MCV 93 80 - 100 fL MCH 31.2 27 - 34 pg MCHC 33.6 32 - 36 g/dL RDW 15.7 (H) 11.5 - 15.0 % Platelets 173 150 - 450 X10E9/L MPV 7.8 7 - 12 fL Myelocyte 1.0 % Band 1.9 % Seg neutrophil 79.8 % Lymphocyte 10.6 % Monocytes 4.8 % Eosinophil 1.9 % Nucleated RBC 3.8 (H) 0.0 - 1.0 /100 WBC Neutrophils Absolute (M) 7.0 (H) 1.5 - 6.6 X10E9/L Lymphocytes Absolute 0.9 (L) 1.0 - 3.5 X10E9/L Monocytes Absolute 0.4 0 - 0.9 X10E9/L Eosinophils Absolute 0.2 0.0 - 0.4 X10E9/L Polychromasia 1+ (A) NONE^NONE Magnesium Collection Time: 01/18/25 6:00 AM Result Value Ref Range Magnesium 1.8 1.8 - 2.6 mg/dL Your medication list START taking these medications Instructions Last Dose Given Next Dose Due acetaminophen 500 mg tablet Commonly known as: TYLENOL EXTRA STRENGTH Take 2 tablets (1,000 mg total) by mouth every 8 (eight) hours. calcium carbonate-vitamin D3 500 mg (1,250 mg) - 200 units per tablet Commonly known as: OSCAL 500 + D Take 1 tablet by mouth in the morning and 1 tablet in the evening. Take with meals. metoprolol tartrate 25 mg tablet Commonly known as: LOPRESSOR Take 0.5 tablets (12.5 mg total) by mouth in the morning and 0.5 tablets (12.5 mg total) before bedtime. Hold for SBP less than 100 and HR less than 60. naloxone 4 mg/actuation spray,non-aerosol nasal spray Commonly known as: NARCAN Administer 1 spray (4 mg total) into alternating nostrils as needed for opioid reversal. oxyCODONE 5 mg immediate release tablet Commonly known as: ROXICODONE Take 1 tablet (5 mg total) by mouth every 4 (four) hours as needed (mild to moderate pain - pain scale 1-6) for up to 3 days. Max Daily Amount: 30 mg sennosides-docusate sodium 8.6-50 mg Commonly known as: SENOKOT-S Take 2 tablets by mouth nightly. sulfamethoxazole-trimethoprim 400-80 mg per tablet Commonly known as: BACTRIM,SEPTRA Take 1 tablet by mouth every 12 (twelve) hours for 5 days. CONTINUE taking these medications Instructions Last Dose Given Next Dose Due calcium citrate 200 mg (950 mg) tablet Commonly known as: CALCITRATE Take 2 tablets (400 mg total) by mouth in the morning and 2 tablets (400 mg total) at noon and 2 tablets (400 mg total) in the evening. Take with meals. cholecalciferol (vitamin D3) 2,000 units tablet Take 1 tablet (2,000 Units total) by mouth in the morning. DULoxetine 60 mg capsule Commonly known as: CYMBALTA ezetimibe 10 mg tablet Commonly known as: ZETIA ferrous sulfate 325 (65 FE) MG tablet flecainide 100 mg tablet Commonly known as: TAMBOCOR oxybutynin XL 15 mg 24 hr tablet Commonly known as: DITROPAN XL take one tablet by mouth every morning PRESERVISION AREDS ORAL rosuvastatin 5 mg tablet Commonly known as: CRESTOR traZODone 50 mg tablet Commonly known as: DESYREL warfarin 5 mg tablet Commonly known as: COUMADIN Take 0.5-1 tablets (2.5-5 mg total) by mouth in the evening. or as directed by Natalie BAXTER (Medication Therapy Management). Where to Get Your Medications You can get these medications from any pharmacy Bring a paper prescription for each of these medications oxyCODONE 5 mg immediate release tablet Information about where to get these medications is not yet available Ask your nurse or doctor about these medications acetaminophen 500 mg tablet calcium carbonate-vitamin D3 500 mg (1,250 mg) - 200 units per tablet metoprolol tartrate 25 mg tablet naloxone 4 mg/actuation spray,non-aerosol nasal spray sennosides-docusate sodium 8.6-50 mg sulfamethoxazole-trimethoprim 400-80 mg per tablet DISCHARGE INSTRUCTION: Disposition: Discharge to [facility] Condition:Stable Activity: per AVS Diet: Adult diet Regular Texture Follow up: Maryjane Deutsch, MILAD-DISTRICT SERVICE MANAGER [address] [facility] [address] Schedule an appointment as soon as possible for a visit in 1 week(s) Renan Delaney MD [address] [facility], [address] [facility] [phone] Follow up on 01/26/2025 Camille White MD [address] [facility] [address] Schedule an appointment as soon as possible for a visit in 1 month(s) Irlanda Miller, LEAD PROCESS ENGINEER-DISTRICT SERVICE MANAGER [address] [phone] Schedule an appointment as soon as possible for a visit in 2 week(s) can also be a telemedicine appointment for anemia (low hgb) For most accurate medication list, please review the discharge medication summary. 35 minutes were spent on discharging this patient. Electronically signed by: Melissa Norton MD Disclaimer Note: To increase efficiency, your physician may have prepared this document using voice recognition technology. In that case, if a word or phrase is confusing, or does not make sense, this is likely due to a recognition error within the program which was not discovered during the physician s review. If you believe an error has occurred, please notify your physician s office at your earliest convenience, so we can correct any mistakes. documented in this encounter [facility] 01-18-2025 Progress note Formatting of t his note might be different from the original. DISCHARGE PLANNING NOTE BLS transport to [facility] on 01/18/25 at 1500 hours via PTN. Confirmed in [facility]. [facility] 01-18-2025 Progress note Formatting of t his note is different from the original. Occupational Therapy Treatment Discharge Recommendations OT Recommendations : Residential Facility 6 Clicks: Daily Activity Putting on and taking off regular lower body clothing?: Total Bathing (including washing, rinsing, drying)?: A lot Toileting, which includes using toilet, bedpan or urinal?: Total Putting on and taking off regular upper body clothing?: A little Taking care of personal grooming such as brushing teeth?: A little Eating meals?: None Scoring Daily Activity Raw Score: 14 CMS G Code Modifier: CK OT Treatment/Interventions: ADL retraining, Functional transfer training, UE strengthening/ROM, Endurance training, Cognitive reorientation, Patient/family training, Equipment eval/education, Balance, Bed mobility, Compensatory technique education, Functional activities OT Frequency: 5-6days/week OT Duration: LOS Assessment Patient Assessment Therapy Problem List: Decreased ADL status, Decreased balance, Decreased endurance, Decreased high-level ADLs, Decreased mobility, Decreased safe judgement during ADL, Decreased LE strength, Decreased cognition, Decreased self-care trans, Decreased UE ROM, Decreased UE strength Patient Response to Treatment: Slow progress, decreased activity tolerance Mood/Affect: Appropriate for circumstances Rehab Prognosis: Good, With continued OT status post acute discharge Visit RN Communication: Yes Medical Record Reviewed: Yes OT Type of Visit: Treatment Precautions Activity: ok to tx per RN Equipment: gait belt, lena RW, TY stedy, external cath (removed, RN aware), repositioning sling Weight Bearing Status: PWB L LE (40-60#) 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: Yes Other: High fall risk, anxiety/fear of falling, h/o falls Pain Assessment Pain Assessment: 0-10 Pain Score: 7 Pain Location: Leg Pain Orientation: Left Pain Intervention(s): Repositioned, Cold pack Response to Interventions: Pain unchanged, Quiet ADL / IADL Hand Dominance: Right Where Assessed: Edge of bed, Supine, bed Grooming Assistance: Standby assist Grooming Deficit: Wash/dry hands, Wash/dry face, Brushing hair Toilet/Commode Assistance: Total assist Toilet/Commode Deficit: Perineal hygiene UE Dressing Assistance: Standby assist LE Dressing Assistance: Total assist LE Dressing Deficit: Don/doff brief Other: pt required felicitas care upon writers arrival. total assist required for felicitas hygiene and for LBD to don new brief while supine. pt completed grooming tasks and UBD while sitting at EOB. SBA provided to complete. no LOB noted. Home Management - IADL Other: pt required felicitas care upon writers arrival. total assist required for felicitas hygiene and for LBD to don new brief while supine. pt completed grooming tasks and UBD while sitting at EOB. SBA provided to complete. no LOB noted. Cognition Orientation Level: Oriented X4 Other: pt is hyperverbose and demos increased anxiety with mobility tasks. Bed Mobility Rolling: Min assist Supine to Sit: Min assist Other: pt rolled R and L while supine for felicitas hygiene. min A required to complete. use of rail provided. pt completed supine to sit with HOB flat. min A required to assist with L LE during transition. pt left in the chair at end of session with call light within reach and with RN aware. ice applied. Transfers Sit to Stand: Mod assist (x2) Stand to Sit: Mod assist (x2) Bed to Chair: Total assist (ty stedy) Other: pt completed sit to stand from EOB at ty stedy. mod A x2 required to complete with bed elevated. cues provided for proper tech and safe hand placement. fair compliance demo with PWB in L LE during transfer. use of ty stedy utilized to transfer pt from bed to chair. repo sling in place for nursing staff. pt completed x2 sit to stands from recliner at . pt continued to require mod A x2 to complete transfers. scale placed below L LE to ensure pt is maintaining PWB restrictions. pt demo good compliance with transition and upon standing. pt very fearful upon standing at . Gait Other: not appropriate at this time. Balance Sitting Balance: Static: Fair (+) Sitting Balance: Dynamic: Fair Standing Balance: Static: Poor (+) Standing Balance: Dynamic: Poor Other: unsupported sitting completed while EOB for ADLs. pt able to tolerate 12 mins with SBA provided. pt stood at RW x2 to help increase standing tolerance/balance for ADLs and functional mobility. pt able to tolerate 15-20 second interventions with B UE support required from device. no major LOB noted throughout session. Activity Tolerance Endurance: Tolerates >30 minutes activity with rest breaks Other: fair overall tolerance. pt is limited by weakness, fatigue, pain, and anxiety. increased time/effort required to complete all therapy interventions. rest breaks provided as needed. 01/18/25 0930 UE ROM UE ROM exercises performed? Yes Scapular retraction x Shoulder horizontal abduction/adduction x Elbow flexion/extension x Other B UE AROM Repetitions x15 Plan Occupational Therapy Care Plan Occupational Therapy Care Plan (Active) Template: OT - Occupational Therapy Problem: Activity Tolerance Dates: Start: 01/14/25 Disciplines: OT Goal: Tolerate > 30 minutes of activity WITHOUT rest breaks Dates: Start: 01/14/25 Expected End: 02/04/25 Description: Goal Description: Disciplines: OT Outcomes Date/Time User Outcome 01/18/25 1009 ANGE Gale Progressing 01/16/25 1004 ANGE Gale Progressing Goal Note filed on 01/18/25 1009 by ANGE Gale Evaluation of progress towards goal: Problem: Bathing LB Dates: Start: 01/14/25 Disciplines: OT Goal: Patient will perform bathing LB with Minimum Assist Dates: Start: 01/14/25 Expected End: 02/04/25 Description: With use of compensatory strategies and/or AE as needed. Disciplines: OT Problem: Bathing UB Dates: Start: 01/14/25 Disciplines: OT Goal: Patient will perform bathing UB with Set-Up Dates: Start: 01/14/25 Expected End: 02/04/25 Description: Goal Description: Disciplines: OT Problem: Bed Mobility Dates: Start: 01/14/25 Disciplines: OT Goal: Patient will perform bed mobility with Stand By Assist Dates: Start: 01/14/25 Expected End: 02/04/25 Description: Goal Description: Disciplines: OT Outcomes Date/Time User Outcome 01/18/25 1009 ANGE Gale Progressing 01/16/25 1004 ANGE Gale Progressing Goal Note filed on 01/18/25 1009 by ANGE Gale Evaluation of progress towards goal: Problem: Dressing LB Dates: Start: 01/14/25 Disciplines: OT Goal: Patient will perform dressing LB with Minimum Assist Dates: Start: 01/14/25 Expected End: 02/04/25 Description: With use of compensatory strategies and/or AE as needed. Disciplines: OT Outcomes Date/Time User Outcome 01/16/25 1004 ANGE Gale Not Progressing Goal Note filed on 01/16/25 1004 by ANGE Gale Evaluation of progress towards goal: Problem: Dressing UB Dates: Start: 01/14/25 Disciplines: OT Goal: Patient will perform dressing UB with Set-Up Dates: Start: 01/14/25 Expected End: 02/04/25 Description: Goal Description: Disciplines: OT Outcomes Date/Time User Outcome 01/18/25 1009 ANGE Gale Progressing Goal Note filed on 01/18/25 1009 by ANGE Gale Evaluation of progress towards goal: Problem: Functional Mobility Dates: Start: 01/14/25 Disciplines: OT Goal: Patient will perform functional mobility with Minimum Assist Dates: Start: 01/14/25 Expected End: 02/04/25 Description: Goal Description: Disciplines: OT Problem: Grooming Dates: Start: 01/14/25 Disciplines: OT Goal: Patient will perform grooming with Modified [place] Dates: Start: 01/14/25 Expected End: 02/04/25 Description: Goal Description: Disciplines: OT Outcomes Date/Time User Outcome 01/18/25 1009 CARLOTA Gale/Murphy Progressing 01/16/25 1004 CARLOTA Gale/Murphy Progressing Goal Note filed on 01/18/25 1009 by ANGE Gale Evaluation of progress towards goal: Problem: Sitting Balance Dates: Start: 01/14/25 Disciplines: OT Goal: Improve balance to good Dates: Start: 01/14/25 Expected End: 02/04/25 Description: Static Dynamic Disciplines: OT Outcomes Date/Time User Outcome 01/18/25 1009 ANGE Gale Progressing 01/16/25 1004 ANGE Gale Progressing Goal Note filed on 01/18/25 1009 by ANGE Gale Evaluation of progress towards goal: Problem: Standing Balance Dates: Start: 01/14/25 Disciplines: OT Goal: Improve balance to fair Dates: Start: 01/14/25 Expected End: 02/04/25 Description: Static Dynamic Disciplines: OT Outcomes Date/Time User Outcome 01/18/25 1009 CARLOTA Gale/Murphy Progressing 01/16/25 1004 CARLOTA Gale/Murphy Not Progressing Goal Note filed on 01/18/25 1009 by ANGE Gale Evaluation of progress towards goal: Problem: Strength Dates: Start: 01/14/25 Disciplines: OT Goal: Improve strength Dates: Start: 01/14/25 Expected End: 02/04/25 Description: Pt will be Mod I with BUE HEP to maximize overall strength and activity tolerance for ADL/IADL. Disciplines: OT Outcomes Date/Time User Outcome 01/18/25 1009 ANGE Gale Progressing Goal Note filed on 01/18/25 1009 by ANGE Gale Evaluation of progress towards goal: Problem: Toilet Transfers Dates: Start: 01/14/25 Disciplines: OT Goal: Patient will perform toilet transfers with Minimum Assist Dates: Start: 01/14/25 Expected End: 02/04/25 Description: Goal Description: Disciplines: OT Problem: Toileting Dates: Start: 01/14/25 Disciplines: OT Goal: Patient will perform toileting with Minimum Assist Dates: Start: 01/14/25 Expected End: 02/04/25 Description: Goal Description: Disciplines: OT Outcomes Date/Time User Outcome 01/16/25 1004 ANGE Gale Not Progressing Goal Note filed on 01/16/25 1004 by ANGE Gale Evaluation of progress towards goal: Problem: Transfers Dates: Start: 01/14/25 Disciplines: OT Goal: Patient will perform transfers with Minimum Assist Dates: Start: 01/14/25 Expected End: 02/04/25 Description: Goal Description: Disciplines: OT Outcomes Date/Time User Outcome 01/18/25 1009 ANGE Gale Progressing 01/16/25 1004 ANGE Gale Not Progressing Goal Note filed on 01/18/25 1009 by ANGE Gale Evaluation of progress towards goal: Occupational Therapy Care Plan (Resolved) There are no resolved problems. Principal Problem: Closed fracture of proximal end of left tibia, unspecified fracture morphology, initial encounter Cosigned by ARABELLA Murdock at 01/18/2025 10:33 AM EDT Associated attestation - Ty Bolden OTR/L - 01/18/2025 10:33 AM EDT I have reviewed and agree with this note and education documentation for this visit. [facility] 01-18-2025 Progress note Formatting of t his note might be different from the original. DISCHARGE PLANNING NOTE Prior Auth approved for admission to : [facility] ([facility]) (P# ; F# ) Approval #[id number] Valid for Dates: 01.18.2025-01.24.2025 [employer] 01-18-2025 History of Present illness Narrative Pharmacokinetic Consult - Follow Up Warfarin Dosing Keila Allen is a 69 y.o. female for whom pharmacy has been consulted for warfarin dosing and monitoring. Subjective Anticoag Therapy Indication: Cardiac dysrhythmia Target INR: 2 - 3 Current inpatient warfarin regimen: see below Current Hematologic Labs Results from last 7 days Lab Units 01/18/25 0600 01/17/25 0602 01/16/25 0731 01/15/25 0752 01/14/25 1033 01/13/25 0650 01/12/25 1804 INR 2.9* 4.0* 3.6* 1.6* 1.3* 1.8* 2.6* Warfarin Administrations (last 168 hours) Date/Time Action Medication Dose 01/15/25 1657 Given warfarin (COUMADIN) tablet 5 mg 5 mg 01/14/25 1711 Given warfarin (COUMADIN) tablet 5 mg 5 mg Assessment INR currently: therapeutic Drug-drug interactions: Duloxetine, Sulfamethoxazole-trimethoprim Drug-disease state interactions: Age >65, CKD, s/p femur fx, Hct <30% Other pertinent information: Vitamin K 5mg IV on 01/13/2025, Bactrim therapy for UTI will adjust warfarin dose to account for predicted INR increase Plan RX Anticoag Warfarin IP dose plan: begin warfarin 2.5 mg today Pharmacist will continue to follow patient's clinical progress daily. Terrell Thorne Ext [phone] Reviewed and agreed with above plan, Coby Hernandez Pharm.D.,[facility] Internal Medicine Progress Note: 01/17/2025 Patient Name: Keila Allen : 1955 Assessment and Plan: This is a 69-year-old woman who has a history of frequent fall presenting to the ER for evaluation of left knee pain after a fall. 1. Mechanical fall with resultant left proximal tibial periprosthetic fracture and fibular fracture with history of osteoporosis status post multiple fractures. The patient is status post open reduction internal fixation of tibia. Continue calcium and vitamin-D supplementation. Partial weight-bearing on the left lower extremity for 260 lb with a you so walker. 2. Paroxysmal atrial fibrillation on long-term anticoagulation with warfarin. Flecainide resumed as per Cardiology. 3. Acute on chronic kidney disease stage IIIB Renal function is improving 4. History of gastric sleeve 5 obstructive sleep apnea 6. Chronic bilateral lower extremity lymphedema 7. Acute perioperative blood loss anemia status post blood transfusion on January 15, 2025 8. Klebsiella UTI patient on Bactrim which is renally dosed patient does have an allergy to penicillin and cephalosporin. Has received 2 doses this far would need to monitor renal function quite closely given her underlying CKD with a preserved ejection fraction Barrier to discharge is awaiting [facility] facility insurance authorization Chief Complaint: Chief Complaint Patient presents with Fall Leg Pain The patient is seen and examined for the above-stated in the assessment and plan. Review of Systems: No fever or chills. No chest pain or shortness of breath. No nausea or vomiting. No bowel or bladder complains. Denies any type of generalized pain Exam: BP 118/65 Pulse 71 Temp 36.8 C (98.2 F) (Oral) Resp 18 Ht 165.1 cm (5' 5 ) Wt 99.8 kg (220 lb) SpO2 97% BMI 36.61 kg/m Intake/Output Summary (Last 24 hours) at 01/17/2025 1601 Last data filed at 01/17/2025 0951 Gross per 24 hour Intake 109.74 ml Output 1000 ml Net -890.26 ml BP 118/65 Pulse 71 Temp 36.8 C (98.2 F) (Oral) Resp 18 Ht 165.1 cm (5' 5 ) Wt 99.8 kg (220 lb) SpO2 97% BMI 36.61 kg/m General: Not in acute distress. Cooperative Neurological: alert and oriented times three. Grossly non focal Head, eyes and throat: Atraumatic, Conjunctive clear. Oral mucosa is clear and no exudate Neck: supple. Trachea midline CVS: regular rate and rhythm. No rub or murmur. Lungs: Clear to auscultation bilaterally. No crackles or wheezes. Abdomen: Positive bowel sounds. Soft and nontender. No organomegaly Extremities: edema. No cyanosis Skin: no visible rashes. No visible lesions. Grossly intact. Current Facility-Administered Medications Medication Dose Route Frequency Provider Last Rate Last Admin acetaminophen (TYLENOL EXTRA STRENGTH) tablet 1,000 mg 1,000 mg oral Q8H Richy Montoya DO 1,000 mg at 01/17/25 0635 calcium carbonate-vitamin D3 (OSCAL 500 + D) 500 mg (1,250 mg) - 200 units per tablet 1 tablet 1 tablet oral BID with meals Caren Iglesias MD 1 tablet at 01/17/25 0813 calcium citrate (CALCITRATE) tablet 400 mg 400 mg oral TID with meals Alysha Li MD 400 mg at 01/17/25 1203 cholecalciferol (vitamin D3) tablet 2,000 Units 2,000 Units oral Daily Alysha Li MD 2,000 Units at 01/17/25 0814 dextrose (GLUTOSE) 40 % gel 15 g 15 g oral PRN Richy Montoya DO dextrose 50 % in water (D50W) 50% solution 25 mL 25 mL intravenous PRN Richy Montoya DO DULoxetine (CYMBALTA) DR capsule 60 mg 60 mg oral Daily Alysha Li MD 60 mg at 01/17/25 0814 epoetin flor-epbx (RETACRIT) injection 40,000 Units 40,000 Units subcutaneous Daily Irlanda Miller APRN-DISTRICT SERVICE MANAGER 40,000 Units at 01/16/25 1652 ezetimibe (ZETIA) tablet 10 mg 10 mg oral Daily Alysha Li MD 10 mg at 01/17/25 0814 flecainide (TAMBOCOR) tablet 100 mg 100 mg oral Q12H Lisa Diaz APRN-KAREN 100 mg at 01/17/25 0635 glucagon HCL injection 1 mg 1 mg intramuscular PRN Richy Montoya DO iron sucrose (VENOFER) 100 mg in sodium chloride 0.9 % 50 mL IVPB 100 mg intravenous Daily Socorro Ramirez MD Stopped at 01/17/25 0845 metoprolol tartrate (LOPRESSOR) tablet 12.5 mg 12.5 mg oral BID Lisa Diaz APRN-DISTRICT SERVICE MANAGER 12.5 mg at 01/17/25 0813 ondansetron (PF) (ZOFRAN) injection 4 mg 4 mg intravenous Q8H PRN Richy Ye Lindsay, DO oxyCODONE (ROXICODONE) immediate release tablet 10 mg 10 mg oral Q4H PRN Richy Ye Lindsay, DO 10 mg at 01/15/25 1652 oxyCODONE (ROXICODONE) immediate release tablet 5 mg 5 mg oral Q4H PRN Richy Ye Lindsay, DO 5 mg at 01/16/25 1236 rosuvastatin (CRESTOR) tablet 5 mg 5 mg oral Daily Socorro Ramirez MD 5 mg at 01/16/25 1437 sennosides-docusate sodium (SENOKOT-S) 8.6-50 mg 2 tablet 2 tablet oral Nightly Richy Ye Abalos, DO 2 tablet at 01/16/25 2231 sodium chloride 0.9 % infusion 20 mL/hr intravenous Continuous PRN Javier Baeza PA-C sulfamethoxazole-trimethoprim (BACTRIM,SEPTRA) 400-80 mg per tablet 1 tablet 1 tablet oral Q12H HOLDEN Alysha Li MD 1 tablet at 01/17/25 0814 traZODone (DESYREL) tablet 50 mg 50 mg oral Nightly Alysha Li MD 50 mg at 01/16/25 2233 Labs: Recent Results (from the past 48 hours) Hemoglobin Collection Time: 01/15/25 6:44 PM Result Value Ref Range Hemoglobin 6.6 (LL) 11.7 - 15.5 g/dL Hemoglobin and hematocrit, blood Collection Time: 01/16/25 1:21 AM Result Value Ref Range Hemoglobin 7.2 (L) 11.7 - 15.5 g/dL Hematocrit 21.4 (L) 35 - 47 % CBC auto differential Collection Time: 01/16/25 7:31 AM Result Value Ref Range White Blood Cells 6.9 4.0 - 11.0 X10E9/L RBC count 2.45 (L) 3.80 - 5.20 X10E12/L Hemoglobin 7.6 (L) 11.7 - 15.5 g/dL Hematocrit 22.6 (L) 35 - 47 % MCV 92 80 - 100 fL MCH 31.2 27 - 34 pg MCHC 33.8 32 - 36 g/dL RDW 15.9 (H) 11.5 - 15.0 % Platelets 132 (L) 150 - 450 X10E9/L MPV 7.8 7 - 12 fL Myelocyte 2.0 % Metamyelocyte 1.0 % Band 1.0 % Seg neutrophil 76.0 % Lymphocyte 15.0 % Monocytes 4.0 % Eosinophil 1.0 % Neutrophils Absolute (M) 5.3 1.5 - 6.6 X10E9/L Lymphocytes Absolute 1.0 1.0 - 3.5 X10E9/L Monocytes Absolute 0.3 0 - 0.9 X10E9/L Eosinophils Absolute 0.1 0.0 - 0.4 X10E9/L RBC Morphology NORMAL Basic Metabolic Panel Collection Time: 01/16/25 7:31 AM Result Value Ref Range Sodium 140 134 - 146 mmol/L Potassium, Bld 4.5 3.5 - 5.0 mmol/L Chloride 110 (H) 98 - 109 mmol/L CO2 24 22 - 32 mmol/L Anion gap 6 5 - 15 mmol/L BUN 44 (H) 5 - 27 mg/dL Creatinine 1.70 (H) 0.40 - 1.00 mg/dL Glucose 81 65 - 99 mg/dL Calcium 8.5 8.5 - 10.5 mg/dL eGFR (CKD-EPI)non-race dependent 32 (L) >59 ml/min/1.73sq.m Protime & INR Collection Time: 01/16/25 7:31 AM Result Value Ref Range Protime 40.8 (H) 9.8 - 13.2 sec Inr 3.6 (H) 0.9 - 1.2 Crossmatch RBC:Number of Units: 2 Collection Time: 01/17/25 1:56 AM Result Value Ref Range Blood component type [id number] Unit number [id number] Unit ABO A Unit RH NEG Crossmatch Compatible Status of unit TRANSFUSED Expiration Date [id number] BB Type Barcode 0600 Protime & INR Collection Time: 01/17/25 6:02 AM Result Value Ref Range Protime 45.0 (H) 9.8 - 13.2 sec Inr 4.0 (H) 0.9 - 1.2 Basic Metabolic Panel Collection Time: 01/17/25 1:15 PM Result Value Ref Range Sodium 141 134 - 146 mmol/L Potassium, Bld 4.2 3.5 - 5.0 mmol/L Chloride 108 98 - 109 mmol/L CO2 25 22 - 32 mmol/L Anion gap 8 5 - 15 mmol/L BUN 39 (H) 5 - 27 mg/dL Creatinine 1.62 (H) 0.40 - 1.00 mg/dL Glucose 146 (H) 65 - 99 mg/dL Calcium 8.9 8.5 - 10.5 mg/dL eGFR (CKD-EPI)non-race dependent 34 (L) >59 ml/min/1.73sq.m CBC auto differential Collection Time: 01/17/25 1:15 PM Result Value Ref Range White Blood Cells 8.1 4.0 - 11.0 X10E9/L RBC count 2.60 (L) 3.80 - 5.20 X10E12/L Hemoglobin 8.2 (L) 11.7 - 15.5 g/dL Hematocrit 24.2 (L) 35 - 47 % MCV 93 80 - 100 fL MCH 31.4 27 - 34 pg MCHC 33.8 32 - 36 g/dL RDW 15.6 (H) 11.5 - 15.0 % Platelets 164 150 - 450 X10E9/L MPV 7.8 7 - 12 fL Myelocyte 1.0 % Metamyelocyte 1.0 % Band 2.0 % Seg neutrophil 84.0 % Lymphocyte 8.0 % Monocytes 4.0 % Neutrophils Absolute (M) 7.0 (H) 1.5 - 6.6 X10E9/L Lymphocytes Absolute 0.6 (L) 1.0 - 3.5 X10E9/L Monocytes Absolute 0.3 0 - 0.9 X10E9/L Polychromasia 1+ (A) NONE^NONE Principal Problem: Closed fracture of proximal end of left tibia, unspecified fracture morphology, initial encounter Imaging Imaging has been reviewed in detail and can be seen in full via EMR. Electronically signed by: Melissa Norton MD Disclaimer Note: To increase efficiency, your physician may have prepared this document using voice recognition technology. In that case, if a word or phrase is confusing, or does not make sense, this is likely due to a recognition error within the program which was not discovered during the physician s review. If you believe an error has occurred, please notify your physician s office at your earliest convenience, so we can correct any mistakes. Pharmacokinetic Consult - Follow Up Warfarin Dosing Keila Allen is a 69 y.o. female for whom pharmacy has been consulted for warfarin dosing and monitoring. Subjective Indication for treatment: Anticoag Therapy Indication: Cardiac dysrhythmia Goal INR: Target INR: 2 - 3 Current inpatient warfarin regimen: see below Current Hematologic Labs Results from last 7 days Lab Units 01/17/25 0602 01/16/25 0731 01/15/25 0752 01/14/25 1033 01/13/25 0650 01/12/25 1804 INR 4.0* 3.6* 1.6* 1.3* 1.8* 2.6* Warfarin Administrations (last 168 hours) Date/Time Action Medication Dose 01/15/25 1657 Given warfarin (COUMADIN) tablet 5 mg 5 mg 01/14/25 1711 Given warfarin (COUMADIN) tablet 5 mg 5 mg Assessment INR currently: supratherapeutic Drug-drug interactions: Bactrim (started on 01/16/25), Crestor, Cymbalta, trazodone Drug-disease state interactions: age, obesity, JUDE on CKD, Other pertinent information: warfarin was held on 01/16/25 due to supratherapeutic INR of 3.6. Bactrim was started on 01/16/25. INR is even higher today at 4 Plan RX Anticoag Warfarin IP dose plan: Hold warfarin and reassess tomorrow. Pharmacist will continue to follow patient's clinical progress daily. Frank Lepe, PharmD, [facility] Ext [phone] Pharmacokinetic Consult - Follow Up Warfarin Dosing Keila Allen is a 69 y.o. female for whom pharmacy has been consulted for warfarin dosing and monitoring. Subjective Indication for treatment: Anticoag Therapy Indication: Cardiac dysrhythmia Goal INR: Target INR: 2 - 3 Current inpatient warfarin regimen: see below Current Hematologic Labs Results from last 7 days Lab Units 01/17/25 0602 01/16/25 0731 01/15/25 0752 01/14/25 1033 01/13/25 0650 01/12/25 1804 INR 4.0* 3.6* 1.6* 1.3* 1.8* 2.6* Warfarin Administrations (last 168 hours) Date/Time Action Medication Dose 01/15/25 1657 Given warfarin (COUMADIN) tablet 5 mg 5 mg 01/14/25 1711 Given warfarin (COUMADIN) tablet 5 mg 5 mg Assessment INR currently: supratherapeutic Drug-drug interactions: Duloxetine, sulfamethoxazole-trimethoprim Drug-disease state interactions: CKD, s/p femur fx Other pertinent information: Vitamin K 5mg IV on 01/13/2025 Plan RX Anticoag Warfarin IP dose plan: Hold warfarin and reassess tomorrow. Pharmacist will continue to follow patient's clinical progress daily. Terrell Thorne Ext [phone] Reviewed and agree with plan. Coby Hernandez Pharm.D.,Formerly [facility] Ext: [phone] 01/16/2025 Patient Name: Keila Allen : 1955 Code status: Problem List: Principal Problem: Closed fracture of proximal end of left tibia, unspecified fracture morphology, initial encounter Chief Complaint: No new complaints Assessment and Plan: Left proximal tibial periprosthetic fracture and fibular fracture, history of osteoporosis status post multiple fractures: Status post open reduction internal fixation of tibia. Status post cardiology evaluation for preop risk stratification. Continue calcium and vitamin-D supplementation. Partial weight-bearing on the left lower extremity 40-60 lb with the use of walker. Felicitas operative antibiotics per ortho. AFib: Resumed Coumadin, pharmacy consult. the patient cleared by ortho. Cardiology following, flecainide was resumed. JUDE on CKD IIIb: Monitor urine output and renal function. Continue LR hydration for now. If no improvement we will consult Nephrology. YUNG. History of gastric sleeve. Chronic bilateral lower extremity lymphedema. Acute perioperative blood loss anemia: Status post blood transfusion 01/15/2025, continue to monitor hemoglobin. Klebsiella UTI: Awaiting susceptibility, start Bactrim renally dosed. The patient has allergy to penicillin and cephalosporin. DVT prophylaxis with scd. Code Status: full code. SUBJECTIVE: The patient reports feeling good today. Voices no complaints. Denies chest pain, dyspnea, fever or chills. OBJECTIVE: Exam: BP 112/59 Pulse 72 Temp 36.5 C (97.7 F) (Oral) Resp 14 Ht 165.1 cm (5' 5 ) Wt 99.8 kg (220 lb) SpO2 92% BMI 36.61 kg/m Intake/Output Summary (Last 24 hours) at 01/16/2025 1441 Last data filed at 01/16/2025 0400 Gross per 24 hour Intake 1017.48 ml Output 1900 ml Net -882.52 ml Wt Readings from Last 3 Encounters: 01/13/25 99.8 kg (220 lb) 12/14/24 95.3 kg (210 lb 1.6 oz) 11/29/24 95.3 kg (210 lb 1.6 oz) Physical Exam: Physical Exam VS: reviewed Gen: Appears staged age, In no acute distress Heart: RRR. No gallop. Lungs: non labored respiration, without wheezing. Abdomen: Soft, nontender, nondistended. Skin: Warm, dry, not jaundiced Psych: Appropriate judgement, affect, mood Medications: Scheduled Medications: acetaminophen, 1,000 mg, oral, Q8H calcium carbonate-vitamin D3, 1 tablet, oral, BID with meals calcium citrate, 400 mg, oral, TID with meals cholecalciferol (vitamin D3), 2,000 Units, oral, Daily clindamycin (CLEOCIN) IV, 900 mg, intravenous, Q8H DULoxetine, 60 mg, oral, Daily epoetin flor-epbx, 40,000 Units, subcutaneous, Daily ezetimibe, 10 mg, oral, Daily flecainide, 100 mg, oral, Q12H iron sucrose, 100 mg, intravenous, Daily metoprolol tartrate, 12.5 mg, oral, BID rosuvastatin, 5 mg, oral, Daily sennosides-docusate sodium, 2 tablet, oral, Nightly traZODone, 50 mg, oral, Nightly Infusions: sodium chloride 0.9 %, 20 mL/hr PRN medications dextrose, 15 g, PRN dextrose 50 % in water (D50W), 25 mL, PRN glucagon (human recombinant), 1 mg, PRN ondansetron, 4 mg, Q8H PRN oxyCODONE, 10 mg, Q4H PRN oxyCODONE, 5 mg, Q4H PRN sodium chloride 0.9 %, 20 mL/hr, Continuous PRN Recent Results (from the past 48 hours) Urine culture Collection Time: 01/14/25 8:05 PM Specimen: Urine Result Value Ref Range Culture (A) 50,000 to 100,000 ORGANISMS/mL KLEBSIELLA PNEUMONIAE Basic Metabolic Panel Collection Time: 01/15/25 7:52 AM Result Value Ref Range Sodium 140 134 - 146 mmol/L Potassium, Bld 4.6 3.5 - 5.0 mmol/L Chloride 111 (H) 98 - 109 mmol/L CO2 21 (L) 22 - 32 mmol/L Anion gap 8 5 - 15 mmol/L BUN 59 (H) 5 - 27 mg/dL Creatinine 2.13 (H) 0.40 - 1.00 mg/dL Glucose 117 (H) 65 - 99 mg/dL Calcium 8.2 (L) 8.5 - 10.5 mg/dL eGFR (CKD-EPI)non-race dependent 24 (L) >59 ml/min/1.73sq.m Protime & INR Collection Time: 01/15/25 7:52 AM Result Value Ref Range Protime 18.6 (H) 9.8 - 13.2 sec Inr 1.6 (H) 0.9 - 1.2 CBC auto differential Collection Time: 01/15/25 9:33 AM Result Value Ref Range White Blood Cells 7.8 4.0 - 11.0 X10E9/L RBC count 1.91 (L) 3.80 - 5.20 X10E12/L Hemoglobin 6.1 (LL) 11.7 - 15.5 g/dL Hematocrit 18.3 (L) 35 - 47 % MCV 96 80 - 100 fL MCH 31.8 27 - 34 pg MCHC 33.2 32 - 36 g/dL RDW 14.5 11.5 - 15.0 % Platelets 138 (L) 150 - 450 X10E9/L MPV 8.2 7 - 12 fL % neutrophils 86.0 % % lymphocytes 6.0 % % monocytes 7.6 % % eosinophils 0.0 % % Basophils 0.4 % Neutrophils Absolute (A) 6.7 (H) 1.5 - 6.6 X10E9/L Lymphocytes Absolute 0.5 (L) 1.0 - 3.5 X10E9/L Monocytes Absolute 0.6 0 - 0.9 X10E9/L Eosinophils Absolute 0.0 0.0 - 0.4 X10E9/L Basophils Absolute 0.0 0.0 - 0.2 X10E9/L Reticulocytes Collection Time: 01/15/25 9:33 AM Result Value Ref Range Reticulocyte 2.2 0.4 - 2.2 % Hemoglobin and hematocrit, blood Collection Time: 01/15/25 12:22 PM Result Value Ref Range Hemoglobin 6.0 (LL) 11.7 - 15.5 g/dL Hematocrit 17.8 (L) 35 - 47 % Hemoglobin Collection Time: 01/15/25 6:44 PM Result Value Ref Range Hemoglobin 6.6 (LL) 11.7 - 15.5 g/dL Hemoglobin and hematocrit, blood Collection Time: 01/16/25 1:21 AM Result Value Ref Range Hemoglobin 7.2 (L) 11.7 - 15.5 g/dL Hematocrit 21.4 (L) 35 - 47 % CBC auto differential Collection Time: 01/16/25 7:31 AM Result Value Ref Range White Blood Cells 6.9 4.0 - 11.0 X10E9/L RBC count 2.45 (L) 3.80 - 5.20 X10E12/L Hemoglobin 7.6 (L) 11.7 - 15.5 g/dL Hematocrit 22.6 (L) 35 - 47 % MCV 92 80 - 100 fL MCH 31.2 27 - 34 pg MCHC 33.8 32 - 36 g/dL RDW 15.9 (H) 11.5 - 15.0 % Platelets 132 (L) 150 - 450 X10E9/L MPV 7.8 7 - 12 fL Myelocyte 2.0 % Metamyelocyte 1.0 % Band 1.0 % Seg neutrophil 76.0 % Lymphocyte 15.0 % Monocytes 4.0 % Eosinophil 1.0 % Neutrophils Absolute (M) 5.3 1.5 - 6.6 X10E9/L Lymphocytes Absolute 1.0 1.0 - 3.5 X10E9/L Monocytes Absolute 0.3 0 - 0.9 X10E9/L Eosinophils Absolute 0.1 0.0 - 0.4 X10E9/L RBC Morphology NORMAL Basic Metabolic Panel Collection Time: 01/16/25 7:31 AM Result Value Ref Range Sodium 140 134 - 146 mmol/L Potassium, Bld 4.5 3.5 - 5.0 mmol/L Chloride 110 (H) 98 - 109 mmol/L CO2 24 22 - 32 mmol/L Anion gap 6 5 - 15 mmol/L BUN 44 (H) 5 - 27 mg/dL Creatinine 1.70 (H) 0.40 - 1.00 mg/dL Glucose 81 65 - 99 mg/dL Calcium 8.5 8.5 - 10.5 mg/dL eGFR (CKD-EPI)non-race dependent 32 (L) >59 ml/min/1.73sq.m Protime & INR Collection Time: 01/16/25 7:31 AM Result Value Ref Range Protime 40.8 (H) 9.8 - 13.2 sec Inr 3.6 (H) 0.9 - 1.2 Lab Review Results from last 7 days Lab Units 01/16/25 0731 01/15/25 0752 01/14/25 0609 POTASSIUM mmol/L 4.5 4.6 4.7 CHLORIDE mmol/L 110* 111* 112* CO2 mmol/L 24 21* 20* BUN mg/dL 44* 59* 53* CREATININE mg/dL 1.70* 2.13* 1.93* CALCIUM mg/dL 8.5 8.2* 7.8* Results from last 7 days Lab Units 01/16/25 0731 01/16/25 0121 01/15/25 1844 01/15/25 1222 01/15/25 0933 01/14/25 0609 WBC X10E9/L 6.9 -- -- -- 7.8 11.3* HEMOGLOBIN g/dL 7.6* 7.2* 6.6* 6.0* 6.1* 7.7* HEMATOCRIT % 22.6* 21.4* -- 17.8* 18.3* 23.8* PLATELETS X10E9/L 132* -- -- -- 138* 166 Imaging: X-ray tibia fibula left minimum 2 views Result Date: 01/13/2025 EXAM: XR TIBIA FIBULA LT MIN 2 VWS CLINICAL INFORMATION: s/p ORIF. COMPARISON: 01/12/2025 FINDINGS: There are postsurgical changes compatible with interval tibial ORIF with an intramedullary harjit and medial plate and screws transfixing fractures of the proximal tibia. Changes of pre-existing knee arthroplasty and femoral ORIF are noted. Soft tissue gas is compatible with the patient's immediate postoperative status. IMPRESSION: Postsurgical changes status post interval tibial ORIF, as above. Immediate postoperative changes are noted. Finalized by Rafa Cifuentes MD on 01/13/2025 10:25 PM X-ray tibia fibula left minimum 2 views Result Date: 01/13/2025 EXAM: XR TIBIA FIBULA LT MIN 2 VWS CLINICAL INFORMATION: orif left tibia. COMPARISON: 01/12/2025 FINDINGS: Intraoperative fluoroscopy was provided to the ordering clinical service. There are 28 spot images demonstrating tibial ORIF with a plate and screws. Again seen are changes of knee arthroplasty and femoral ORIF. Reference Air Kerma: 6.94 mGy IMPRESSION: Intraoperative fluoroscopy was provided to the ordering clinical service, as above. Finalized by Rafa Cifuentes MD on 01/13/2025 10:23 PM This note was created with the assistance of a speech-recognition program. Although the intention is to generate a document that actually reflects the content of the visit, no guarantees can be provided that every mistake has been identified and corrected by editing. Pharmacokinetic Consult - Follow Up Warfarin Dosing Keila Allen is a 69 y.o. female for whom pharmacy has been consulted for warfarin dosing and monitoring. Subjective Indication for treatment: Anticoag Therapy Indication: Cardiac dysrhythmia Goal INR: Target INR: 2 - 3 Current inpatient warfarin regimen: see below Current Hematologic Labs Results from last 7 days Lab Units 01/16/25 0731 01/15/25 0752 01/14/25 1033 01/13/25 0650 01/12/25 1804 01/10/25 0000 INR 3.6* 1.6* 1.3* 1.8* 2.6* 2.5* Warfarin Administrations (last 168 hours) Date/Time Action Medication Dose 01/15/25 1657 Given warfarin (COUMADIN) tablet 5 mg 5 mg 01/14/25 1711 Given warfarin (COUMADIN) tablet 5 mg 5 mg Assessment INR currently: supratherapeutic Drug-drug interactions: clindamycin, duloxetine Drug-disease state interactions: CKD, s/p femur fx Other pertinent information: vitamin K 5 mg IV on 01/13/25 Plan RX Anticoag Warfarin IP dose plan: Hold warfarin and reassess tomorrow. Pharmacist will continue to follow patient's clinical progress daily. Coby Hernandez PharmD Ext [phone] Images from the original note were not included. [facility] [address] [place] [address] PROGRESS NOTE 01/16/2025 11:34 AM Subjective: Ms. Allen has no chest pain Current Meds: Current Facility-Administered Medications: acetaminophen (TYLENOL EXTRA STRENGTH) tablet 1,000 mg, 1,000 mg, oral, Q8H, Richy Montoya DO, 1,000 mg at 01/16/25 0813 calcium carbonate-vitamin D3 (OSCAL 500 + D) 500 mg (1,250 mg) - 200 units per tablet 1 tablet, 1 tablet, oral, BID with meals, Caren Iglesias MD, 1 tablet at 01/16/25 0817 calcium citrate (CALCITRATE) tablet 400 mg, 400 mg, oral, TID with meals, Alysha Li MD, 400 mg at 01/16/25 08 cholecalciferol (vitamin D3) tablet 2,000 Units, 2,000 Units, oral, Daily, Alysha Li MD, 2,000 Units at 01/16/25 0813 clindamycin (CLEOCIN) IVPB 900 mg/50 mL in dextrose 5% (18 mg/mL premix), 900 mg, intravenous, Q8H, Reinaldo Estes MD, Stopped at 01/16/25 0620 dextrose (GLUTOSE) 40 % gel 15 g, 15 g, oral, PRN, Richy Montoya DO dextrose 50 % in water (D50W) 50% solution 25 mL, 25 mL, intravenous, PRN, Richy Montoya DO DULoxetine (CYMBALTA) DR capsule 60 mg, 60 mg, oral, Daily, Alysha Li MD, 60 mg at 01/16/25 08 ezetimibe (ZETIA) tablet 10 mg, 10 mg, oral, Daily, Alysha Li MD, 10 mg at 01/16/25 08 flecainide (TAMBOCOR) tablet 100 mg, 100 mg, oral, Q12H, Lisa Diaz APRN-DISTRICT SERVICE MANAGER, 100 mg at 01/16/25 0500 glucagon HCL injection 1 mg, 1 mg, intramuscular, PRN, Richy Montoya DO iron sucrose (VENOFER) 100 mg in sodium chloride 0.9 % 50 mL IVPB, 100 mg, intravenous, Daily, Socorro Ramirez MD, Stopped at 01/16/25 1035 metoprolol tartrate (LOPRESSOR) tablet 12.5 mg, 12.5 mg, oral, BID, Lisa Diaz APRN-KAREN, 12.5 mg at 01/16/25 0813 ondansetron (PF) (ZOFRAN) injection 4 mg, 4 mg, intravenous, Q8H PRN, Richy Montoya DO oxyCODONE (ROXICODONE) immediate release tablet 10 mg, 10 mg, oral, Q4H PRN, Richy Montoya DO, 10 mg at 01/15/25 1652 oxyCODONE (ROXICODONE) immediate release tablet 5 mg, 5 mg, oral, Q4H PRN, Richy Montoya DO, 5 mg at 01/16/25 0812 rosuvastatin (CRESTOR) tablet 5 mg, 5 mg, oral, Daily, Socorro Ramirez MD, 5 mg at 01/15/25 1653 sennosides-docusate sodium (SENOKOT-S) 8.6-50 mg 2 tablet, 2 tablet, oral, Nightly, Richy Montoya DO, 2 tablet at 01/14/25 2241 sodium chloride 0.9 % infusion, 20 mL/hr, intravenous, Continuous PRN, Socorro Ramirez MD sodium chloride 0.9 % infusion, 20 mL/hr, intravenous, Continuous PRN, Javier Baeza PA-C traZODone (DESYREL) tablet 50 mg, 50 mg, oral, Nightly, Alysha Li MD, 50 mg at 01/15/25 221 warfarin (COUMADIN) tablet 5 mg, 5 mg, oral, Daily, Alysha Li MD, 5 mg at 01/15/25 1657 Continuous Infusions: sodium chloride 0.9 %, 20 mL/hr sodium chloride 0.9 %, 20 mL/hr VITAL SIGNS BP 136/78 Pulse 75 Temp 36.3 C (97.3 F) (Axillary) Resp 12 Ht 165.1 cm (5' 5 ) Wt 99.8 kg (220 lb) SpO2 (!) 88% BMI 36.61 kg/m 3 L/min Admit Weight: 99.8 kg (220 lb) Last 3 weights: Wt Readings from Last 3 Encounters: 01/13/25 99.8 kg (220 lb) 12/14/24 95.3 kg (210 lb 1.6 oz) 11/29/24 95.3 kg (210 lb 1.6 oz) BMI: Body mass index is 36.61 kg/m . INPUT/OUTPUT: Intake/Output Summary (Last 24 hours) at 01/16/2025 1134 Last data filed at 01/16/2025 0400 Gross per 24 hour Intake 1017.48 ml Output 1900 ml Net -882.52 ml Current Meds: Current Facility-Administered Medications: acetaminophen (TYLENOL EXTRA STRENGTH) tablet 1,000 mg, 1,000 mg, oral, Q8H, Richy Montoya DO, 1,000 mg at 01/16/25 0813 calcium carbonate-vitamin D3 (OSCAL 500 + D) 500 mg (1,250 mg) - 200 units per tablet 1 tablet, 1 tablet, oral, BID with meals, Caren Iglesias MD, 1 tablet at 01/16/25 08 calcium citrate (CALCITRATE) tablet 400 mg, 400 mg, oral, TID with meals, Alysha Li MD, 400 mg at 01/16/25 08 cholecalciferol (vitamin D3) tablet 2,000 Units, 2,000 Units, oral, Daily, Alysha Li MD, 2,000 Units at 01/16/25 08 clindamycin (CLEOCIN) IVPB 900 mg/50 mL in dextrose 5% (18 mg/mL premix), 900 mg, intravenous, Q8H, Reinaldo Estes MD, Stopped at 01/16/25 0620 dextrose (GLUTOSE) 40 % gel 15 g, 15 g, oral, PRN, Richy Montoya DO dextrose 50 % in water (D50W) 50% solution 25 mL, 25 mL, intravenous, PRN, Richy Montoya DO DULoxetine (CYMBALTA) DR capsule 60 mg, 60 mg, oral, Daily, Alysha Li MD, 60 mg at 01/16/25 08 ezetimibe (ZETIA) tablet 10 mg, 10 mg, oral, Daily, Alysha Li MD, 10 mg at 01/16/25 08 flecainide (TAMBOCOR) tablet 100 mg, 100 mg, oral, Q12H, ALEXANDRU Murrieta, 100 mg at 01/16/25 0500 glucagon HCL injection 1 mg, 1 mg, intramuscular, PRN, Ricyh Montoya DO iron sucrose (VENOFER) 100 mg in sodium chloride 0.9 % 50 mL IVPB, 100 mg, intravenous, Daily, Socorro Ramirez MD, Stopped at 01/16/25 1035 metoprolol tartrate (LOPRESSOR) tablet 12.5 mg, 12.5 mg, oral, BID, ALEXANDRU Murrieta, 12.5 mg at 01/16/25 0813 ondansetron (PF) (ZOFRAN) injection 4 mg, 4 mg, intravenous, Q8H PRN, Richy M Lindsay, DO oxyCODONE (ROXICODONE) immediate release tablet 10 mg, 10 mg, oral, Q4H PRN, Richy Ye LindsayDO, 10 mg at 01/15/25 1652 oxyCODONE (ROXICODONE) immediate release tablet 5 mg, 5 mg, oral, Q4H PRN, Richy Ye DO Lindsay, 5 mg at 01/16/25 0812 rosuvastatin (CRESTOR) tablet 5 mg, 5 mg, oral, Daily, Socorro Ramirez MD, 5 mg at 01/15/25 1653 sennosides-docusate sodium (SENOKOT-S) 8.6-50 mg 2 tablet, 2 tablet, oral, Nightly, Richy Montoya DO, 2 tablet at 01/14/25 2241 sodium chloride 0.9 % infusion, 20 mL/hr, intravenous, Continuous PRN, Socorro Ramirez MD sodium chloride 0.9 % infusion, 20 mL/hr, intravenous, Continuous PRN, Javier Baeza PA-C traZODone (DESYREL) tablet 50 mg, 50 mg, oral, Nightly, Alysha Li MD, 50 mg at 01/15/25 2219 warfarin (COUMADIN) tablet 5 mg, 5 mg, oral, Daily, Alysha Li MD, 5 mg at 01/15/25 1657 Continuous Infusions: sodium chloride 0.9 %, 20 mL/hr sodium chloride 0.9 %, 20 mL/hr EXAM: General appearance: In no acute distress. Lungs: Clear to Auscultation bilaterally Heart: regular rate and rhythm S1 S2 Abdomen: Soft nontender Extremities: No edema Psych: Appropriate mood and affect. Awake, alert and oriented x 3. Other: CV HISTORY: ECHO: Echo complete W/O contrast Result Date: 08/10/2023 Left Ventricle: There is severe focal basal [...] The aortic root is normal in size. STRESS: Nuc stress Lexiscan Result Date: 08/11/2023 SUMMARY 1. Benign study without evidence of stress induced myocardial ischemia or prior infarction 2. LVEF > 70% 3. Stress ECG demonstrates sinus rhythm, no evidence of stress induced myocardial ischemia by ECG criteria 4. Low risk study overall 5. CT attenuation correction not available 6. Details below 7. Correlate clinically EXAM TYPE: Stress myocardial perfusion exam with Lexiscan stress and Cardiolite SPECT MPI DATE: 08/11/2023 INDICATION: Chest pain EXAM NARRATIVE: Patient was injected at rest with 10.4 mCi of Technetium 99m Sestamibi, followed by resting SPECT myocardial perfusion imaging. The patient was then stressed with an IV dose of Lexiscan 0.4 mg per protocol. After that time, patient was reinjected with 30.4 mCi of Technetium 99m Sestamibi, and repeat SPECT myocardial perfusion imaging with ECG gating was performed. CT attenuation correction was not available. Review of process reconstructed tomographic imaging performed in the vertical long axis, horizontal long axis, and short axis was performed. TOMOGRAPHIC FINDINGS: No evidence of reversible myocardial perfusion defect noted to suggest myocardial ischemia. There is evidence of fixed myocardial perfusion defect noted -- moderate in size, moderate in intensity -- involving the basal to mid inferior wall, inferoseptum, and inferolateral wall, suggestive of attenuation artifact in the setting of normal wall motion in this territory on gated images. No visual evidence of transient ischemic dilatation to suggest balanced ischemia. Calculated TID ratio 1.04 within normal limits. Summed difference score 0 within normal limits. GATED IMAGING: Normal left ventricular size and wall thickening with a calculated normal left ventricular ejection fraction > 70% with no evidence of regional wall motion abnormalities or dyssynchrony on gated imaging. HOLTER: No results found. CARDIAC CATH: No results found. CAROTID: No results found. EKG: CXR: @CXR24@ LABS CBC: Lab Results Component Value Date WBC 6.9 01/16/2025 HGB 7.6 (L) 01/16/2025 HCT 22.6 (L) 01/16/2025 MCV 92 01/16/2025 RDW 15.9 (H) 01/16/2025 PLT 132 (L) 01/16/2025 BMP: Lab Results Component Value Date K 4.5 01/16/2025 CL 110 (H) 01/16/2025 CO2 24 01/16/2025 BUN 44 (H) 01/16/2025 CREATININE 1.70 (H) 01/16/2025 EGFR 32 (L) 01/16/2025 GLU 81 01/16/2025 GLU 126 (H) 10/05/2022 MG/PHOS: Lab Results Component Value Date MG 1.8 11/21/2024 PT/INR: Lab Results Component Value Date INR 3.6 (H) 01/16/2025 INR 1.6 (H) 11/17/2024 PTT: No results found for: APTT BNP: Lab Results Component Value Date BNP 104 (H) 08/09/2023 Last 3 Troponin: No components found for: TROPONIN I;3 Lipid Panel: @BRIEFLAB(CHOL,TRIG,HDL,LDLCALCU,CHOLH DL Pulse Ox: )SpO2 Av.1 % Min: 88 % Max: 100 % Supplemental O2: O2 Flow Rate (L/min): 3 L/min Principal Problem: Closed fracture of proximal end of left tibia, unspecified fracture morphology, initial encounter ASSESSMENT / PLAN MPRESSIONS/PLAN @DX@ 1. Chronic HFpEF 2. Paroxysmal AFib -back on flecainide -warfarin restarted. Currently in sinus rhythm 3. Left femur fracture -SP surgical intervention 4. Acute anemia -hemoglobin remains low at 7.6 At this point we will sign off she will follow up with [facility] Images from the original note were not included. Orthopedic Progress Note CC: S/P ORIF left proximal tibia. Subjective Patient resting comfortably in chair at time of encounter, no new complaints. Objective BP 136/78 Pulse 75 Temp 36.3 C (97.3 F) (Axillary) Resp 12 Ht 165.1 cm (5' 5 ) Wt 99.8 kg (220 lb) SpO2 97% BMI 36.61 kg/m O2 Device: Nasal cannula General: alert, appears stated age, and cooperative Neurovascular: Sensation is grossly intact to sural, saphenous, deep peroneal, and superficial peroneal left lower extremity. Motor function intact with flexor hallicus longus, extensor hallicus longus, anterior tibialis and gastrocsoleus present left extremity. 1+ DP pulse present left lower extremity. Brisk capillary refill present to digits. Extremity Exam: Postoperative dressings taken down at time of encounter, incisions well approximated with post-operative sutures, clean/dry/intact and without surrounding erythema or drainage. New dressings applied. DVT/Comparment Exam: No evidence of DVT seen on physical exam. thigh and lower leg compartments soft and compressible. No evidence of compartment syndrome. LABS Lab Results Component Value Date WBC 6.9 01/16/2025 HGB 7.6 (L) 01/16/2025 HCT 22.6 (L) 01/16/2025 MCV 92 01/16/2025 PLT 132 (L) 01/16/2025 Lab Results Component Value Date CRP 0.2 06/23/2019 Lab Results Component Value Date SEDRATE 34 (H) 06/23/2019 Lab Results Component Value Date GLU 81 01/16/2025 CALCIUM 8.5 01/16/2025 K 4.5 01/16/2025 CO2 24 01/16/2025 BUN 44 (H) 01/16/2025 CREATININE 1.70 (H) 01/16/2025 Microbiology Results Procedure Component Value Units Date/Time Urine culture [[id number]] (Abnormal) Collected: 01/14/252004 Specimen: Urine Updated: 01/16/2538 Culture 50,000 to 100,000 ORGANISMS/mL KLEBSIELLA PNEUMONIAE Assessment/Plan Post-Operative Day: 3 Days Post-Op Status post- Procedure(s): OPEN REDUCTION INTERNAL FIXATION TIBIA WITH STRESS EXAMINATION (Left) - Wound Class: Clean Contaminated - Incision Closure: Deep and Superficial Layers PLAN As documented above, postoperative dressings changed at bedside today. Orders placed for once daily/as needed simple dry dressing changes to left lower extremity with nursing staff- appreciate their diligence. Continue intravenous clindamycin as previously ordered for a total of 72 hours, scheduled to be completed later this evening. Continue partial weight-bearing on the left lower extremity, up to 60 lb as able/tolerated for use of a walker. Continue bone health with calcium and vitamin-D supplementation as able/tolerated. PT/OT- mobilization, gait training. DVT Prophylaxis- Per primary service, warfarin for chronic DVT prophylaxis secondary to personal history of paroxysmal atrial fibrillation. Pain well controlled, continue current regimen. Remainder of care per medical and other specialty teams, appreciated their assistance in caring for this patient. Dispo Planning- Per primary service, several referrals have been sent to local [facility] facilities. Barriers to discharge include: completion of perioperative intravenous antibiotic therapy, ABLA. Dictated by Windy Marte PA-C. LOS: 3 days Windy Marte PA-C 01/16/25 1048 Cosigned by Renan Delaney MD at 01/17/2025 7:57 AM EDT Images from the original note were not included. [facility] PROGRESS NOTE 01/15/2025 Patient Name: Keila Allen : 1955 Code status: Problem List: Principal Problem: Closed fracture of proximal end of left tibia, unspecified fracture morphology, initial encounter Consulting Providers Provider Service Specialty Dov Erickson MD -- Medical Oncology Renan Delaney MD Orthopedics Orthopedic Surgery [facility] -- Hematology [facility] -- Cardiology Chief Complaint Patient presents with Fall Leg Pain Assessment and Plan: Left proximal tibial periprosthetic fracture and fibular fracture-s/p open reduction internal fixation of tibia. Continue calcium and vitamin-D supplementation. Weight-bearing per Orthopedic recommendations. Acute hemoglobin drop-hemoglobin 6.1 today. No tachycardia or hypotension. No evidence of any active bleeding. Blood management is already on board. Ordered erythropoietin. Will start IV Venofer. Patient consented for blood transfusion. Will order 1 unit of PRBC transfusion. Paroxysmal AFib rate controlled. On Coumadin for anticoagulation JUDE on CKD stage IIIB. Monitor urine output and renal function History of gastric sleeve Chronic bilateral lower extremity lymphedema Discharge Planning: Monitor hemoglobin. Follow up orthopedics planned DVT prophylaxis- EPC cuff SUBJECTIVE: Patient is currently asymptomatic, sitting comfortably on bed. Denied any dizziness or lightheadedness. Pain in her legs is tolerable. Looking forward To working with therapy later today Review of Systems - General ROS: negative for - chills or fever Respiratory ROS: no cough, shortness of breath, or wheezing Cardiovascular ROS: no chest pain or dyspnea on exertion Gastrointestinal ROS: no abdominal pain, change in bowel habits, or black or bloody stools OBJECTIVE: Exam: BP 115/59 Pulse 80 Temp 36.8 C (98.3 F) (Oral) Resp 18 Ht 165.1 cm (5' 5 ) Wt 99.8 kg (220 lb) SpO2 100% BMI 36.61 kg/m Intake/Output Summary (Last 24 hours) at 01/15/2025 1624 Last data filed at 01/15/2025 0454 Gross per 24 hour Intake -- Output 350 ml Net -350 ml Wt Readings from Last 3 Encounters: 01/13/25 99.8 kg (220 lb) 12/14/24 95.3 kg (210 lb 1.6 oz) 11/29/24 95.3 kg (210 lb 1.6 oz) Physical Exam Constitutional: General: She is not in acute distress. Appearance: Normal appearance. She is well-developed. She is not diaphoretic. HENT: Head: Normocephalic and atraumatic. Mouth/Throat: Pharynx: No oropharyngeal exudate. Eyes: Conjunctiva/sclera: Conjunctivae normal. Pupils: Pupils are equal, round, and reactive to light. Neck: Thyroid: No thyromegaly. Cardiovascular: Rate and Rhythm: Normal rate and regular rhythm. Heart sounds: No murmur heard. Pulmonary: Effort: Pulmonary effort is normal. No respiratory distress. Breath sounds: Normal breath sounds. Abdominal: General: Bowel sounds are normal. There is no distension. Palpations: Abdomen is soft. Musculoskeletal: General: No tenderness. Cervical back: Normal range of motion and neck supple. Skin: General: Skin is warm and dry. Neurological: Mental Status: She is alert and oriented to person, place, and time. Mental status is at baseline. Psychiatric: Mood and Affect: Mood normal. Behavior: Behavior normal. Medications: Scheduled Medications: acetaminophen, 1,000 mg, oral, Q8H calcium carbonate-vitamin D3, 1 tablet, oral, BID with meals calcium citrate, 400 mg, oral, TID with meals cholecalciferol (vitamin D3), 2,000 Units, oral, Daily clindamycin (CLEOCIN) IV, 900 mg, intravenous, Q8H DULoxetine, 60 mg, oral, Daily epoetin flor-epbx, 40,000 Units, subcutaneous, Once ezetimibe, 10 mg, oral, Daily flecainide, 100 mg, oral, Q12H iron sucrose, 100 mg, intravenous, Daily metoprolol tartrate, 12.5 mg, oral, BID rosuvastatin, 5 mg, oral, Daily sennosides-docusate sodium, 2 tablet, oral, Nightly traZODone, 50 mg, oral, Nightly warfarin, 5 mg, oral, Daily Infusions: sodium chloride 0.9 %, 20 mL/hr PRN medications dextrose, 15 g, PRN dextrose 50 % in water (D50W), 25 mL, PRN glucagon (human recombinant), 1 mg, PRN ondansetron, 4 mg, Q8H PRN oxyCODONE, 10 mg, Q4H PRN oxyCODONE, 5 mg, Q4H PRN sodium chloride 0.9 %, 20 mL/hr, Continuous PRN Recent Results (from the past 48 hours) CBC auto differential Collection Time: 01/14/25 6:09 AM Result Value Ref Range White Blood Cells 11.3 (H) 4.0 - 11.0 X10E9/L RBC count 2.51 (L) 3.80 - 5.20 X10E12/L Hemoglobin 7.7 (L) 11.7 - 15.5 g/dL Hematocrit 23.8 (L) 35 - 47 % MCV 95 80 - 100 fL MCH 30.8 27 - 34 pg MCHC 32.5 32 - 36 g/dL RDW 14.9 11.5 - 15.0 % Platelets 166 150 - 450 X10E9/L MPV 8.0 7 - 12 fL % neutrophils 92.1 % % lymphocytes 3.7 % % monocytes 4.1 % % eosinophils 0.0 % % Basophils 0.1 % Neutrophils Absolute (A) 10.4 (H) 1.5 - 6.6 X10E9/L Lymphocytes Absolute 0.4 (L) 1.0 - 3.5 X10E9/L Monocytes Absolute 0.5 0 - 0.9 X10E9/L Eosinophils Absolute 0.0 0.0 - 0.4 X10E9/L Basophils Absolute 0.0 0.0 - 0.2 X10E9/L Basic Metabolic Panel Collection Time: 01/14/25 6:09 AM Result Value Ref Range Sodium 141 134 - 146 mmol/L Potassium, Bld 4.7 3.5 - 5.0 mmol/L Chloride 112 (H) 98 - 109 mmol/L CO2 20 (L) 22 - 32 mmol/L Anion gap 9 5 - 15 mmol/L BUN 53 (H) 5 - 27 mg/dL Creatinine 1.93 (H) 0.40 - 1.00 mg/dL Glucose 152 (H) 65 - 99 mg/dL Calcium 7.8 (L) 8.5 - 10.5 mg/dL eGFR (CKD-EPI)non-race dependent 28 (L) >59 ml/min/1.73sq.m Vitamin D 25 hydroxy Collection Time: 01/14/25 6:09 AM Result Value Ref Range Vit D, 25-Hydroxy 44.4 30 - 100 ng/mL Vitamin B12 Collection Time: 01/14/25 6:09 AM Result Value Ref Range Vitamin B-12 >1,500 (H) 180 - 914 pg/mL Iron and TIBC Collection Time: 01/14/25 6:09 AM Result Value Ref Range Iron 10 (L) 50 - 170 ug/dL Tibc-calc only do not order 235 (L) 250 - 425 ug/dL Iron Saturation 4 (L) 15 - 50 % SATURATION Ferritin Collection Time: 01/14/25 6:09 AM Result Value Ref Range Ferritin 101 11 - 307 ng/mL Folate Collection Time: 01/14/25 6:09 AM Result Value Ref Range Folate 22.6 >5.8 ng/mL Protime & INR Collection Time: 01/14/25 10:33 AM Result Value Ref Range Protime 14.8 (H) 9.8 - 13.2 sec Inr 1.3 (H) 0.9 - 1.2 Basic Metabolic Panel Collection Time: 01/15/25 7:52 AM Result Value Ref Range Sodium 140 134 - 146 mmol/L Potassium, Bld 4.6 3.5 - 5.0 mmol/L Chloride 111 (H) 98 - 109 mmol/L CO2 21 (L) 22 - 32 mmol/L Anion gap 8 5 - 15 mmol/L BUN 59 (H) 5 - 27 mg/dL Creatinine 2.13 (H) 0.40 - 1.00 mg/dL Glucose 117 (H) 65 - 99 mg/dL Calcium 8.2 (L) 8.5 - 10.5 mg/dL eGFR (CKD-EPI)non-race dependent 24 (L) >59 ml/min/1.73sq.m Protime & INR Collection Time: 01/15/25 7:52 AM Result Value Ref Range Protime 18.6 (H) 9.8 - 13.2 sec Inr 1.6 (H) 0.9 - 1.2 CBC auto differential Collection Time: 01/15/25 9:33 AM Result Value Ref Range White Blood Cells 7.8 4.0 - 11.0 X10E9/L RBC count 1.91 (L) 3.80 - 5.20 X10E12/L Hemoglobin 6.1 (LL) 11.7 - 15.5 g/dL Hematocrit 18.3 (L) 35 - 47 % MCV 96 80 - 100 fL MCH 31.8 27 - 34 pg MCHC 33.2 32 - 36 g/dL RDW 14.5 11.5 - 15.0 % Platelets 138 (L) 150 - 450 X10E9/L MPV 8.2 7 - 12 fL % neutrophils 86.0 % % lymphocytes 6.0 % % monocytes 7.6 % % eosinophils 0.0 % % Basophils 0.4 % Neutrophils Absolute (A) 6.7 (H) 1.5 - 6.6 X10E9/L Lymphocytes Absolute 0.5 (L) 1.0 - 3.5 X10E9/L Monocytes Absolute 0.6 0 - 0.9 X10E9/L Eosinophils Absolute 0.0 0.0 - 0.4 X10E9/L Basophils Absolute 0.0 0.0 - 0.2 X10E9/L Reticulocytes Collection Time: 01/15/25 9:33 AM Result Value Ref Range Reticulocyte 2.2 0.4 - 2.2 % Hemoglobin and hematocrit, blood Collection Time: 01/15/25 12:22 PM Result Value Ref Range Hemoglobin 6.0 (LL) 11.7 - 15.5 g/dL Hematocrit 17.8 (L) 35 - 47 % Lab Review Results from last 7 days Lab Units 01/15/25 1222 01/15/25 0933 01/14/25 0609 01/13/25 0650 WBC X10E9/L -- 7.8 11.3* 7.0 HEMOGLOBIN g/dL 6.0* 6.1* 7.7* 10.8* HEMATOCRIT % 17.8* 18.3* 23.8* 33.0* PLATELETS X10E9/L -- 138* 166 189 MCV fL -- 96 95 94 Results from last 7 days Lab Units 01/15/25 0752 01/14/25 0609 01/13/25 0650 01/12/25 1804 SODIUM mmol/L 140 141 141 138 POTASSIUM mmol/L 4.6 4.7 4.1 3.8 CHLORIDE mmol/L 111* 112* 112* 108 CO2 mmol/L 21* 20* 19* 19* BUN mg/dL 59* 53* 59* 57* CREATININE mg/dL 2.13* 1.93* 2.24* 2.13* CALCIUM mg/dL 8.2* 7.8* 8.5 8.7 ANION GAP mmol/L 8 9 10 11 Results from last 7 days Lab Units 01/15/25 0752 01/14/25 0609 01/13/25 0650 01/12/25 1804 GLUCOSE mg/dL 117* 152* 111* 103* Results from last 7 days Lab Units 01/15/25 0752 01/14/25 0609 01/13/25 0650 01/12/25 1804 CALCIUM mg/dL 8.2* 7.8* 8.5 8.7 Results from last 7 days Lab Units 01/14/25 0609 IRON ug/dL 10* TIBC-CALC ONLY DO NOT ORDER ug/dL 235* FERRITIN ng/mL 101 Results from last 7 days Lab Units 01/15/25 0752 01/14/25 1033 01/13/25 0650 PROTIME sec 18.6* 14.8* 20.7* INR 1.6* 1.3* 1.8* Microbiology Results Procedure Component Value Units Date/Time Urine culture [[id number]] Resulted: 01/14/252026 Specimen: Urine Updated: 01/14/252048 X-ray tibia fibula left minimum 2 views Result Date: 01/13/2025 EXAM: XR TIBIA FIBULA LT MIN 2 VWS CLINICAL INFORMATION: s/p ORIF. COMPARISON: 01/12/2025 FINDINGS: There are postsurgical changes compatible with interval tibial ORIF with an intramedullary harjit and medial plate and screws transfixing fractures of the proximal tibia. Changes of pre-existing knee arthroplasty and femoral ORIF are noted. Soft tissue gas is compatible with the patient's immediate postoperative status. IMPRESSION: Postsurgical changes status post interval tibial ORIF, as above. Immediate postoperative changes are noted. Finalized by Rafa Cifuentes MD on 01/13/2025 10:25 PM X-ray tibia fibula left minimum 2 views Result Date: 01/13/2025 EXAM: XR TIBIA FIBULA LT MIN 2 VWS CLINICAL INFORMATION: orif left tibia. COMPARISON: 01/12/2025 FINDINGS: Intraoperative fluoroscopy was provided to the ordering clinical service. There are 28 spot images demonstrating tibial ORIF with a plate and screws. Again seen are changes of knee arthroplasty and femoral ORIF. Reference Air Kerma: 6.94 mGy IMPRESSION: Intraoperative fluoroscopy was provided to the ordering clinical service, as above. Finalized by Rafa Cifuentes MD on 01/13/2025 10:23 PM X-ray chest 1 view Result Date: 01/12/2025 CHEST 1 VIEW HISTORY: Preop COMPARISON: 06/02/2024 FINDINGS: No focal airspace disease, pulmonary edema, pleural effusions, or pneumothorax. Normal cardiomediastinal silhouette. IMPRESSION: No acute cardiopulmonary disease. Finalized by Isaías Sykes MD on 01/12/2025 10:[address] knee left without contrast Result Date: 01/12/2025 CT KNEE LT WO CONT CLINICAL INFORMATION: Tibia fracture, eval component, pre op planning COMPARISON: None. PROCEDURE: Routine CT of the left knee was obtained without contrast. Sagittal and coronal reformats were obtained from the axial data. Automated exposure control was utilized. All CT scans at this facility use dose modulation, iterative reconstruction, and/or weight based dosing when appropriate to reduce radiation dose to as low as reasonably achievable. FINDINGS: Extensive edema and stranding present in the soft tissues. Lipohemarthrosis is suspected. Lateral soft tissue swelling is noted. Patella is intact. Surgical fixation of the femur. Nondisplaced transversely oriented fracture of the proximal tibia involving the distal tip of the tibial stem of the knee prosthesis. There is a nondisplaced fracture of the proximal fibula. There is slight angulation of the tibial fracture. IMPRESSION: * Left knee arthroplasty with proximal tibial periprosthetic fracture as well as fibular fracture. * Edema and stranding in the soft tissues, cannot exclude lipohemarthrosis. * Please see above for further details. Finalized by Roel Nino MD on 01/12/2025 9:40 PM X-ray clavicle left Result Date: 01/12/2025 XR CLAVICLE LT CLINICAL INFORMATION: Eval for fx COMPARISON: None. IMPRESSION: * No fracture. Moderate degenerative changes. Finalized by Roel Nino MD on 01/12/2025 8:53 PM X-ray shoulder left minimum 2 views Result Date: 01/12/2025 CLINICAL INFORMATION: Pain, rule out fracture TECHNIQUE: XR SHOULDER LT MIN 2 VWS 3 views left shoulder were obtained. AC joint degenerative changes noted. Humeral head is high riding. No fracture appreciated. No dislocation. IMPRESSION: AC joint degenerative changes and probable chronic rotator cuff tear. Finalized by Sathya Carroll MD on 01/12/2025 8:26 PM X-ray tibia fibula left minimum 2 views Result Date: 01/12/2025 XR TIBIA FIBULA LT MIN 2 VWS CLINICAL INFORMATION: s/p fall. Leg pain. COMPARISON: 05/17/2021. IMPRESSION: * Transverse fracture of the proximal tibia near the stem of the tibial component of the patient's knee prosthesis. Knee radiographs are recommended. * Cannot exclude proximal fibular fracture. * Surgical fixation of the distal femur with fracture in this region again noted. * Osteopenia and degenerative changes present. * Soft tissue swelling. Finalized by Roel Nino MD on 01/12/2025 6:57 PM X-ray femur left 2+ views Result Date: 01/12/2025 XR FEMUR LT 2+ VIEWS CLINICAL INFORMATION: s/p fall. Leg pain. COMPARISON: 11/15/2024. IMPRESSION: * Soft tissue swelling overlying the proximal femur. Rounded density measuring 8.1 cm, hematoma or other process is not excluded. * Surgical fixation of the distal femur with anatomic alignment of fracture, knee arthroplasty present. No change in alignment. Finalized by Roel Nino MD on 01/12/2025 6:56 PM X-ray hip left 2-3 views with or without pelvis Result Date: 01/12/2025 CLINICAL INFORMATION: s/p fall TECHNIQUE: XR HIP LT 2-3 VIEWS W OR WO PELVIS 3 views left hip were obtained. The exam is limited. Femoral neck appears intact. No intratrochanteric abnormality noted to within the limits of this exam. Pelvic ring unremarkable. Crosstable lateral view is nondiagnostic. IMPRESSION: No acute findings. Finalized by Sathya Carroll MD on 01/12/2025 6:[address] brain without contrast Result Date: 01/12/2025 CLINICAL INFORMATION: s/p fall with head injury COMPARISON: 10/05/2022. PROCEDURE: Routine CT Head obtained without contrast. All CT scans at this facility use dose modulation, iterative reconstruction, and/or weight based dosing when appropriate to reduce radiation dose to as low as reasonably achievable. FINDINGS: No acute intracranial hemorrhage. No mass effect or midline shift. No extra-axial fluid collections. The ventricles and sulci are prominent consistent with global atrophy. Low-attenuation areas identified in the periventricular white matter consistent with microvascular ischemia. No depressed calvarial fracture. IMPRESSION: * No acute intracranial findings by CT. Finalized by Roel Nino MD on 01/12/2025 6:32 PM This note was created with the assistance of a speech-recognition program. Although the intention is to generate a document that actually reflects the content of the visit, no guarantees can be provided that every mistake has been identified and corrected by editing. Electronically signed by: SOCORRO RAMIREZ MD, COLETTE, FACP 01/15/2025 4:24 PM Preferred contact method: #1. Epic chat #2. [facility] team pager Available from 7 am to 7 pm Pharmacokinetic Consult - Follow Up Warfarin Dosing Keila Allen is a 69 y.o. female for whom pharmacy has been consulted for warfarin dosing and monitoring. Subjective Indication for treatment: afib Goal INR: Target INR: 2 - 3 Current inpatient warfarin regimen: 5 mg Current Hematologic Labs Results from last 7 days Lab Units 01/15/25 0752 01/14/25 1033 01/13/25 0650 01/12/25 1804 01/10/25 0000 INR 1.6* 1.3* 1.8* 2.6* 2.5* Warfarin Administrations (last 168 hours) Date/Time Action Medication Dose 01/14/25 1711 Given warfarin (COUMADIN) tablet 5 mg 5 mg Assessment INR currently: subtherapeutic Drug-drug interactions: n/a Drug-disease state interactions: s/p femur Fx Other pertinent information: Vit K 5 mg IV on 01/13 Plan RX Anticoag Warfarin IP dose plan: Continue current warfarin regimen of 5 mg daily. Pharmacist will continue to follow patient's clinical progress daily. Evangelist Rick, ChristianoD Images from the original note were not included. [facility] [address] [place] [address] PROGRESS NOTE Keila Allen appears in no acute distress. SUBJECTIVE Allergies: Allergies Allergen Reactions Cephalexin Shortness Of Breath, Swelling and Rash Tolerates ceftriaxone Dicloxacillin Sodium Shortness Of Breath, Swelling and Rash Tolerates ceftriaxone Lipitor [Atorvastatin] muscle cramps Nifedipine Hypotension Other reaction(s): Allergy: EDEMA; Penicillin G Potassium Hives Penicillins Hives Tolerates ceftriaxone CURRENT MEDICATIONS acetaminophen, 1,000 mg, oral, Q8H calcium carbonate-vitamin D3, 1 tablet, oral, BID with meals calcium citrate, 400 mg, oral, TID with meals cholecalciferol (vitamin D3), 2,000 Units, oral, Daily clindamycin (CLEOCIN) IV, 900 mg, intravenous, Q8H DULoxetine, 60 mg, oral, Daily ezetimibe, 10 mg, oral, Daily ferrous sulfate, 325 mg, oral, Daily with breakfast flecainide, 100 mg, oral, Q12H metoprolol tartrate, 12.5 mg, oral, BID sennosides-docusate sodium, 2 tablet, oral, Nightly traZODone, 50 mg, oral, Nightly warfarin, 2.5 mg, oral, Once per day on Thursday warfarin, 5 mg, oral, Once per day on Thursday CONTINUOUS INFUSIONS OBJECTIVE CBC: Results from last 7 days Lab Units 01/14/25 0609 01/13/25 0650 WBC X10E9/L 11.3* 7.0 HEMOGLOBIN g/dL 7.7* 10.8* HEMATOCRIT % 23.8* 33.0* MCV fL 95 94 PLATELETS X10E9/L 166 189 BMP: Results from last 7 days Lab Units 01/14/25 0609 01/13/25 0650 01/12/25 1804 SODIUM mmol/L 141 141 138 POTASSIUM mmol/L 4.7 4.1 3.8 CHLORIDE mmol/L 112* 112* 108 CO2 mmol/L 20* 19* 19* BUN mg/dL 53* 59* 57* CREATININE mg/dL 1.93* 2.24* 2.13* CALCIUM mg/dL 7.8* 8.5 8.7 PT/INR: Results from last 7 days Lab Units 01/14/25 1033 01/13/25 0650 01/12/25 1804 PROTIME sec 14.8* 20.7* 29.3* INR 1.3* 1.8* 2.6* APTT: MAG: D Dimer: Troponin I ProBNP Lipid Panel: Lab Results Component Value Date CHOL 142 (L) 11/30/2023 TRIG 127 11/30/2023 HDL 75 11/30/2023 Liver Panel: No results found for: ALB HgA1C: Lab Results Component Value Date HGBA1C 4.9 10/06/2022 ABG: CV TESTING HISTORY: ECHO: Echo complete W/O contrast Result Date: 08/10/2023 Left Ventricle: There is severe focal basal [...] The aortic root is normal in size. STRESS: Nuc stress Lexiscan Result Date: 08/11/2023 SUMMARY 1. Benign study without evidence of stress induced myocardial ischemia or prior infarction 2. LVEF > 70% 3. Stress ECG demonstrates sinus rhythm, no evidence of stress induced myocardial ischemia by ECG criteria 4. Low risk study overall 5. CT attenuation correction not available 6. Details below 7. Correlate clinically EXAM TYPE: Stress myocardial perfusion exam with Lexiscan stress and Cardiolite SPECT MPI DATE: 08/11/2023 INDICATION: Chest pain EXAM NARRATIVE: Patient was injected at rest with 10.4 mCi of Technetium 99m Sestamibi, followed by resting SPECT myocardial perfusion imaging. The patient was then stressed with an IV dose of Lexiscan 0.4 mg per protocol. After that time, patient was reinjected with 30.4 mCi of Technetium 99m Sestamibi, and repeat SPECT myocardial perfusion imaging with ECG gating was performed. CT attenuation correction was not available. Review of process reconstructed tomographic imaging performed in the vertical long axis, horizontal long axis, and short axis was performed. TOMOGRAPHIC FINDINGS: No evidence of reversible myocardial perfusion defect noted to suggest myocardial ischemia. There is evidence of fixed myocardial perfusion defect noted -- moderate in size, moderate in intensity -- involving the basal to mid inferior wall, inferoseptum, and inferolateral wall, suggestive of attenuation artifact in the setting of normal wall motion in this territory on gated images. No visual evidence of transient ischemic dilatation to suggest balanced ischemia. Calculated TID ratio 1.04 within normal limits. Summed difference score 0 within normal limits. GATED IMAGING: Normal left ventricular size and wall thickening with a calculated normal left ventricular ejection fraction > 70% with no evidence of regional wall motion abnormalities or dyssynchrony on gated imaging. CXR: X-ray chest 1 view Result Date: 01/12/2025 CHEST 1 VIEW HISTORY: Preop COMPARISON: 06/02/2024 FINDINGS: No focal airspace disease, pulmonary edema, pleural effusions, or pneumothorax. Normal cardiomediastinal silhouette. IMPRESSION: No acute cardiopulmonary disease. Finalized by Isaías Sykes MD on 01/12/2025 10:08 PM TELEMETRY: Sinus w/1 degree AVB PHYSICAL EXAM Admission Weight: Weight: 99.8 kg (220 lb) I/O last 3 completed shifts: In: 3775 [I.V.:3500; Blood:225; IV Piggyback:50] Out: 1200 [Urine:500; Blood:700] Weight change: Wt Readings from Last 3 Encounters: 01/13/25 99.8 kg (220 lb) 12/14/24 95.3 kg (210 lb 1.6 oz) 11/29/24 95.3 kg (210 lb 1.6 oz) Vitals: Vitals: 01/14/25 1138 01/14/25 1531 01/14/25 2015 01/14/25 2311 BP: 115/61 103/62 122/58 108/50 Pulse: 82 78 Resp: 17 11 Temp: 36.6 C (97.9 F) 36.7 C (98.1 F) 36.4 C (97.6 F) 36.4 C (97.6 F) TempSrc: Axillary Oral Oral Oral SpO2: 99% 100% Weight: Height: Admit Weight Weight: 99.8 kg (220 lb) Last 3 Weights Last 3 Weight Readings 01/13/25 1039 01/13/25 1147 Weight: 99.8 kg (220 lb) 99.8 kg (220 lb) Body mass index is 36.61 kg/m . INTAKE/OUTPUT I/O last 3 completed shifts: In: 3775 [I.V.:3500; Blood:225; IV Piggyback:50] Out: 1200 [Urine:500; Blood:700] No intake or output data in the 24 hours ending 01/15/25 0029 General appearance: In no acute distress Skin: Warm and dry to touch Neck: No JVD, trachea midline Lungs: Resps even, non labored Heart:: RRR with normal S1 and S2 Extremities: No edema ASSESSMENT PAF Chronic HFpEF L femur fx, s/p surgical intervention Acute anemia PLAN Monitor AM CBC Warfarin dosing per pharmacy Currently not bridging If Hgb stabilizes, would likely bridge with UFH vs LMWH to therapeutic INR Remains in sinus rhythm Home flecainide was resumed ALEXANDRU Santos This note was completed using a voice cartographic aide system. Every effort was made to ensure accuracy. However, inadvertent computerized cartographic aide errors may be present. ALEXANDRU Sanchez 01/15/25 0036 Cosigned by Camille White MD at 01/15/2025 1:39 AM EDT 01/14/2025 Patient Name: Keila Allen : 1955 Code status: Problem List: Principal Problem: Closed fracture of proximal end of left tibia, unspecified fracture morphology, initial encounter Chief Complaint: No new complaints Assessment and Plan: Left proximal tibial periprosthetic fracture and fibular fracture, history of osteoporosis status post multiple fractures: Status post open reduction internal fixation of tibia. Status post cardiology evaluation for preop risk stratification. Continue calcium and vitamin-D supplementation. Partial weight-bearing on the left lower extremity 40-60 lb with the use of walker. Felicitas operative antibiotics per ortho. AFib: Resume Coumadin, pharmacy consult. the patient cleared by ortho. Cardiology following. JUDE on CKD IIIb: Monitor urine output and renal function. Continue LR hydration for now. If no improvement we will consult Nephrology. YUNG. History of gastric sleeve. Chronic bilateral lower extremity lymphedema. DVT prophylaxis with scd. Code Status: full code. SUBJECTIVE: The patient reports feeling okay today postoperatively. Voices no complaints. OBJECTIVE: Exam: BP 115/61 Pulse 85 Temp 36.6 C (97.9 F) (Axillary) Resp 19 Ht 165.1 cm (5' 5 ) Wt 99.8 kg (220 lb) SpO2 97% BMI 36.61 kg/m Intake/Output Summary (Last 24 hours) at 01/14/2025 1238 Last data filed at 01/13/2025 1900 Gross per 24 hour Intake 3775 ml Output 1200 ml Net 2575 ml Wt Readings from Last 3 Encounters: 01/13/25 99.8 kg (220 lb) 12/14/24 95.3 kg (210 lb 1.6 oz) 11/29/24 95.3 kg (210 lb 1.6 oz) Physical Exam: Physical Exam VS: reviewed Gen: Appears staged age, In no acute distress Heart: RRR. No gallop. B/l LE edema Lungs: non labored respiration, without wheezing. Abdomen: Soft, nontender, nondistended. Skin: Warm, dry, not jaundiced Psych: Appropriate judgement, affect, mood Medications: Scheduled Medications: acetaminophen, 1,000 mg, oral, Q8H calcium carbonate-vitamin D3, 1 tablet, oral, BID with meals calcium citrate, 400 mg, oral, TID with meals cholecalciferol (vitamin D3), 2,000 Units, oral, Daily clindamycin (CLEOCIN) IV, 900 mg, intravenous, Q8H DULoxetine, 60 mg, oral, Daily ezetimibe, 10 mg, oral, Daily ferrous sulfate, 325 mg, oral, Daily with breakfast sennosides-docusate sodium, 2 tablet, oral, Nightly traZODone, 50 mg, oral, Nightly [START ON 01/15/2025] warfarin, 2.5 mg, oral, Once per day on Thursday warfarin, 5 mg, oral, Once per day on Thursday Infusions: PRN medications dextrose, 15 g, PRN dextrose 50 % in water (D50W), 25 mL, PRN glucagon (human recombinant), 1 mg, PRN ondansetron, 4 mg, Q8H PRN oxyCODONE, 10 mg, Q4H PRN oxyCODONE, 5 mg, Q4H PRN Recent Results (from the past 48 hours) Basic Metabolic Panel Collection Time: 01/12/25 6:04 PM Result Value Ref Range Sodium 138 134 - 146 mmol/L Potassium, Bld 3.8 3.5 - 5.0 mmol/L Chloride 108 98 - 109 mmol/L CO2 19 (L) 22 - 32 mmol/L Anion gap 11 5 - 15 mmol/L BUN 57 (H) 5 - 27 mg/dL Creatinine 2.13 (H) 0.40 - 1.00 mg/dL Glucose 103 (H) 65 - 99 mg/dL Calcium 8.7 8.5 - 10.5 mg/dL eGFR (CKD-EPI)non-race dependent 24 (L) >59 ml/min/1.73sq.m Protime & INR Collection Time: 01/12/25 6:04 PM Result Value Ref Range Protime 29.3 (H) 9.8 - 13.2 sec Inr 2.6 (H) 0.9 - 1.2 APTT Collection Time: 01/12/25 6:04 PM Result Value Ref Range aPTT 23 (L) 26 - 37 sec Type and screen Collection Time: 01/12/25 11:00 PM Result Value Ref Range ABO A RH Positive Antibody Screen Negative Protime & INR Collection Time: 01/13/25 6:50 AM Result Value Ref Range Protime 20.7 (H) 9.8 - 13.2 sec Inr 1.8 (H) 0.9 - 1.2 Basic Metabolic Panel Collection Time: 01/13/25 6:50 AM Result Value Ref Range Sodium 141 134 - 146 mmol/L Potassium, Bld 4.1 3.5 - 5.0 mmol/L Chloride 112 (H) 98 - 109 mmol/L CO2 19 (L) 22 - 32 mmol/L Anion gap 10 5 - 15 mmol/L BUN 59 (H) 5 - 27 mg/dL Creatinine 2.24 (H) 0.40 - 1.00 mg/dL Glucose 111 (H) 65 - 99 mg/dL Calcium 8.5 8.5 - 10.5 mg/dL eGFR (CKD-EPI)non-race dependent 23 (L) >59 ml/min/1.73sq.m CBC without diff Collection Time: 01/13/25 6:50 AM Result Value Ref Range White Blood Cells 7.0 4.0 - 11.0 X10E9/L RBC count 3.50 (L) 3.80 - 5.20 X10E12/L Hemoglobin 10.8 (L) 11.7 - 15.5 g/dL Hematocrit 33.0 (L) 35 - 47 % MCV 94 80 - 100 fL MCH 31.0 27 - 34 pg MCHC 32.8 32 - 36 g/dL RDW 14.3 11.5 - 15.0 % Platelets 189 150 - 450 X10E9/L MPV 7.6 7 - 12 fL POCT ABG Rapid K GLU ICA Collection Time: 01/13/25 2:15 PM Result Value Ref Range Potassium 6.6 (HH) 3.5 - 5.0 mmol/L Portable glucose 93 65 - 99 mg/dL Hemoglobin 10.6 (L) 11.7 - 15.5 g/dL Portable hematoct 32 (L) 35 - 47 % Ionized Calcium 4.7 4.5 - 5.3 mg/dL Sample Type Arterial Body Temp 37.0 37.0 C pH 7.280 (L) 7.350 - 7.450 PCO2 40.7 35 - 45 MMHG PO2 145 (H) 80 - 100 MMHG Base,Deficit 7.6 (H) 0.0 - 2.0 MMOL/L Portable HCO3 19.1 (L) 22 - 26 MMOL/L % O2 Sat 99.3 >90 % Vinicius'S Test NA Sample Site [place] Insp. O2 Conc. 100 % POCT ABG Rapid K GLU Collection Time: 01/13/25 2:31 PM Result Value Ref Range Portable potassium 4.1 3.5 - 5.0 mmol/L Glucose 102 (H) 65 - 99 mg/dL Portable HGB 10.6 (L) 11.7 - 15.5 g/dL Portable hematocrit 33 (L) 35 - 47 % Sample Type Arterial Body Temp 37.0 37.0 C pH 7.292 (L) 7.350 - 7.450 PCO2 37.7 35 - 45 MMHG PO2 109 (H) 80 - 100 MMHG Base,Deficit 8.3 (H) 0.0 - 2.0 MMOL/L Portable HCO3 18.2 (L) 22 - 26 MMOL/L % O2 Sat 98.6 >90 % Vinicius's Test NA Sample Site [place] Insp. O2 Conc. 100 % POCT ABG Rapid K GLU Collection Time: 01/13/25 3:31 PM Result Value Ref Range Portable potassium 4.1 3.5 - 5.0 mmol/L Glucose 118 (H) 65 - 99 mg/dL Portable HGB 9.4 (L) 11.7 - 15.5 g/dL Portable hematocrit 29 (L) 35 - 47 % Sample Type Arterial Body Temp 37.0 37.0 C pH 7.327 (L) 7.350 - 7.450 PCO2 38.8 35 - 45 MMHG PO2 68 (L) 80 - 100 MMHG Base,Deficit 5.7 (H) 0.0 - 2.0 MMOL/L Portable HCO3 20.3 (L) 22 - 26 MMOL/L % O2 Sat 94.6 >90 % Vinicius's Test NA Sample Site [facility] Insp. O2 Conc. 100 % CBC auto differential Collection Time: 01/14/25 6:09 AM Result Value Ref Range White Blood Cells 11.3 (H) 4.0 - 11.0 X10E9/L RBC count 2.51 (L) 3.80 - 5.20 X10E12/L Hemoglobin 7.7 (L) 11.7 - 15.5 g/dL Hematocrit 23.8 (L) 35 - 47 % MCV 95 80 - 100 fL MCH 30.8 27 - 34 pg MCHC 32.5 32 - 36 g/dL RDW 14.9 11.5 - 15.0 % Platelets 166 150 - 450 X10E9/L MPV 8.0 7 - 12 fL % neutrophils 92.1 % % lymphocytes 3.7 % % monocytes 4.1 % % eosinophils 0.0 % % Basophils 0.1 % Neutrophils Absolute (A) 10.4 (H) 1.5 - 6.6 X10E9/L Lymphocytes Absolute 0.4 (L) 1.0 - 3.5 X10E9/L Monocytes Absolute 0.5 0 - 0.9 X10E9/L Eosinophils Absolute 0.0 0.0 - 0.4 X10E9/L Basophils Absolute 0.0 0.0 - 0.2 X10E9/L Basic Metabolic Panel Collection Time: 01/14/25 6:09 AM Result Value Ref Range Sodium 141 134 - 146 mmol/L Potassium, Bld 4.7 3.5 - 5.0 mmol/L Chloride 112 (H) 98 - 109 mmol/L CO2 20 (L) 22 - 32 mmol/L Anion gap 9 5 - 15 mmol/L BUN 53 (H) 5 - 27 mg/dL Creatinine 1.93 (H) 0.40 - 1.00 mg/dL Glucose 152 (H) 65 - 99 mg/dL Calcium 7.8 (L) 8.5 - 10.5 mg/dL eGFR (CKD-EPI)non-race dependent 28 (L) >59 ml/min/1.73sq.m Vitamin D 25 hydroxy Collection Time: 01/14/25 6:09 AM Result Value Ref Range Vit D, 25-Hydroxy 44.4 30 - 100 ng/mL Protime & INR Collection Time: 01/14/25 10:33 AM Result Value Ref Range Protime 14.8 (H) 9.8 - 13.2 sec Inr 1.3 (H) 0.9 - 1.2 Lab Review Results from last 7 days Lab Units 01/14/25 0609 01/13/25 0650 01/12/25 1804 POTASSIUM mmol/L 4.7 4.1 3.8 CHLORIDE mmol/L 112* 112* 108 CO2 mmol/L 20* 19* 19* BUN mg/dL 53* 59* 57* CREATININE mg/dL 1.93* 2.24* 2.13* CALCIUM mg/dL 7.8* 8.5 8.7 Results from last 7 days Lab Units 01/14/25 0609 01/13/25 0650 WBC X10E9/L 11.3* 7.0 HEMOGLOBIN g/dL 7.7* 10.8* HEMATOCRIT % 23.8* 33.0* PLATELETS X10E9/L 166 189 Imaging: X-ray tibia fibula left minimum 2 views Result Date: 01/13/2025 EXAM: XR TIBIA FIBULA LT MIN 2 VWS CLINICAL INFORMATION: s/p ORIF. COMPARISON: 01/12/2025 FINDINGS: There are postsurgical changes compatible with interval tibial ORIF with an intramedullary harjit and medial plate and screws transfixing fractures of the proximal tibia. Changes of pre-existing knee arthroplasty and femoral ORIF are noted. Soft tissue gas is compatible with the patient's immediate postoperative status. IMPRESSION: Postsurgical changes status post interval tibial ORIF, as above. Immediate postoperative changes are noted. Finalized by Rafa Cifuentes MD on 01/13/2025 10:25 PM X-ray tibia fibula left minimum 2 views Result Date: 01/13/2025 EXAM: XR TIBIA FIBULA LT MIN 2 VWS CLINICAL INFORMATION: orif left tibia. COMPARISON: 01/12/2025 FINDINGS: Intraoperative fluoroscopy was provided to the ordering clinical service. There are 28 spot images demonstrating tibial ORIF with a plate and screws. Again seen are changes of knee arthroplasty and femoral ORIF. Reference Air Kerma: 6.94 mGy IMPRESSION: Intraoperative fluoroscopy was provided to the ordering clinical service, as above. Finalized by Rafa Cifuentes MD on 01/13/2025 10:23 PM X-ray chest 1 view Result Date: 01/12/2025 CHEST 1 VIEW HISTORY: Preop COMPARISON: 06/02/2024 FINDINGS: No focal airspace disease, pulmonary edema, pleural effusions, or pneumothorax. Normal cardiomediastinal silhouette. IMPRESSION: No acute cardiopulmonary disease. Finalized by Isaías Sykes MD on 01/12/2025 10:[address] knee left without contrast Result Date: 01/12/2025 CT KNEE LT WO CONT CLINICAL INFORMATION: Tibia fracture, eval component, pre op planning COMPARISON: None. PROCEDURE: Routine CT of the left knee was obtained without contrast. Sagittal and coronal reformats were obtained from the axial data. Automated exposure control was utilized. All CT scans at this facility use dose modulation, iterative reconstruction, and/or weight based dosing when appropriate to reduce radiation dose to as low as reasonably achievable. FINDINGS: Extensive edema and stranding present in the soft tissues. Lipohemarthrosis is suspected. Lateral soft tissue swelling is noted. Patella is intact. Surgical fixation of the femur. Nondisplaced transversely oriented fracture of the proximal tibia involving the distal tip of the tibial stem of the knee prosthesis. There is a nondisplaced fracture of the proximal fibula. There is slight angulation of the tibial fracture. IMPRESSION: * Left knee arthroplasty with proximal tibial periprosthetic fracture as well as fibular fracture. * Edema and stranding in the soft tissues, cannot exclude lipohemarthrosis. * Please see above for further details. Finalized by Roel Nino MD on 01/12/2025 9:40 PM X-ray clavicle left Result Date: 01/12/2025 XR CLAVICLE LT CLINICAL INFORMATION: Eval for fx COMPARISON: None. IMPRESSION: * No fracture. Moderate degenerative changes. Finalized by Roel Nino MD on 01/12/2025 8:53 PM X-ray shoulder left minimum 2 views Result Date: 01/12/2025 CLINICAL INFORMATION: Pain, rule out fracture TECHNIQUE: XR SHOULDER LT MIN 2 VWS 3 views left shoulder were obtained. AC joint degenerative changes noted. Humeral head is high riding. No fracture appreciated. No dislocation. IMPRESSION: AC joint degenerative changes and probable chronic rotator cuff tear. Finalized by Sathya Carroll MD on 01/12/2025 8:26 PM X-ray tibia fibula left minimum 2 views Result Date: 01/12/2025 XR TIBIA FIBULA LT MIN 2 VWS CLINICAL INFORMATION: s/p fall. Leg pain. COMPARISON: 05/17/2021. IMPRESSION: * Transverse fracture of the proximal tibia near the stem of the tibial component of the patient's knee prosthesis. Knee radiographs are recommended. * Cannot exclude proximal fibular fracture. * Surgical fixation of the distal femur with fracture in this region again noted. * Osteopenia and degenerative changes present. * Soft tissue swelling. Finalized by Roel Nino MD on 01/12/2025 6:57 PM X-ray femur left 2+ views Result Date: 01/12/2025 XR FEMUR LT 2+ VIEWS CLINICAL INFORMATION: s/p fall. Leg pain. COMPARISON: 11/15/2024. IMPRESSION: * Soft tissue swelling overlying the proximal femur. Rounded density measuring 8.1 cm, hematoma or other process is not excluded. * Surgical fixation of the distal femur with anatomic alignment of fracture, knee arthroplasty present. No change in alignment. Finalized by Roel Nino MD on 01/12/2025 6:56 PM X-ray hip left 2-3 views with or without pelvis Result Date: 01/12/2025 CLINICAL INFORMATION: s/p fall TECHNIQUE: XR HIP LT 2-3 VIEWS W OR WO PELVIS 3 views left hip were obtained. The exam is limited. Femoral neck appears intact. No intratrochanteric abnormality noted to within the limits of this exam. Pelvic ring unremarkable. Crosstable lateral view is nondiagnostic. IMPRESSION: No acute findings. Finalized by Sathya Carroll MD on 01/12/2025 6:[address] brain without contrast Result Date: 01/12/2025 CLINICAL INFORMATION: s/p fall with head injury COMPARISON: 10/05/2022. PROCEDURE: Routine CT Head obtained without contrast. All CT scans at this facility use dose modulation, iterative reconstruction, and/or weight based dosing when appropriate to reduce radiation dose to as low as reasonably achievable. FINDINGS: No acute intracranial hemorrhage. No mass effect or midline shift. No extra-axial fluid collections. The ventricles and sulci are prominent consistent with global atrophy. Low-attenuation areas identified in the periventricular white matter consistent with microvascular ischemia. No depressed calvarial fracture. IMPRESSION: * No acute intracranial findings by CT. Finalized by Roel Nino MD on 01/12/2025 6:32 PM This note was created with the assistance of a speech-recognition program. Although the intention is to generate a document that actually reflects the content of the visit, no guarantees can be provided that every mistake has been identified and corrected by editing. Pharmacokinetic Consult - Anticoagulation Dosing Keila Allen is a 69 y.o. female for whom pharmacy has been consulted for warfarin dosing and monitoring. Indication for treatment: afib Current Hematologic Labs Lab Results Component Value Date Inr 1.3 (H) 01/14/2025 Inr 1.8 (H) 01/13/2025 Inr 2.6 (H) 01/12/2025 Lab Results Component Value Date ALT 9 11/17/2024 ALT 15 11/30/2023 Warfarin Administrations (last 168 hours) None Subjective Anticoag Therapy Indication: Cardiac dysrhythmia Target INR: 2 - 3 Warfarin Prior to Admission?: Yes Assessment Bleeding Risks: Age > 65 y;Hct <30%;Scr >1.5 mg/dL Home Regimen: 2.5 mg every Thu, Thu, Thu; 5 mg all other days Drug-drug Interactions: Cymbalta (home medication), received vitamin K on 01/13 Plan Holding Warfarin Dose?: Not holding Bridging Agent in Conjunction With Warfarin? : No Follow-Up Labs: Daily INR per protocol Patient Education (with patient/family): On [employer]AP [employer] MACHINE - not needed Will resume warfarin home regimen. Will continue to follow patient's clinical progress daily. Tana Garcia RPH Orthopaedic Surgery Progress Note Surgery: ORIF left proximal tibia Main Orthopedic Condition(s): Left tibial shaft fracture around total knee arthroplasty SUBJECTIVE: NAEON. Patient doing very well this morning she is very pleasant and talking to her family on the phone upon initial evaluation. She is very cheerful this a.m.. OBJECTIVE BP 118/58 Pulse 85 Temp 36.7 C (98 F) (Oral) Resp 19 Ht 165.1 cm (5' 5 ) Wt 99.8 kg (220 lb) SpO2 97% BMI 36.61 kg/m O2 Device: None (Room air) General: Aox3, NAD Focused MSK exam: Dressing clean, dry, intact, SILT s/s/sp/dp/pt, + motor fxn EHL, FHL, DF, PF. Comparments & calves soft and compressible with no increased pain on passive stretch; Palpable pulses with BCR x 5 Labs Recent Results (from the past 24 hours) POCT ABG Rapid K GLU ICA HH Collection Time: 01/13/25 2:15 PM Result Value Ref Range Potassium 6.6 (HH) 3.5 - 5.0 mmol/L Portable glucose 93 65 - 99 mg/dL Hemoglobin 10.6 (L) 11.7 - 15.5 g/dL Portable hematoct 32 (L) 35 - 47 % Ionized Calcium 4.7 4.5 - 5.3 mg/dL Sample Type Arterial Body Temp 37.0 37.0 C pH 7.280 (L) 7.350 - 7.450 PCO2 40.7 35 - 45 MMHG PO2 145 (H) 80 - 100 MMHG Base,Deficit 7.6 (H) 0.0 - 2.0 MMOL/L Portable HCO3 19.1 (L) 22 - 26 MMOL/L % O2 Sat 99.3 >90 % Vinicius'S Test NA Sample Site [facility] Insp. O2 Conc. 100 % POCT ABG Rapid K GLU HH Collection Time: 01/13/25 2:31 PM Result Value Ref Range Portable potassium 4.1 3.5 - 5.0 mmol/L Glucose 102 (H) 65 - 99 mg/dL Portable HGB 10.6 (L) 11.7 - 15.5 g/dL Portable hematocrit 33 (L) 35 - 47 % Sample Type Arterial Body Temp 37.0 37.0 C pH 7.292 (L) 7.350 - 7.450 PCO2 37.7 35 - 45 MMHG PO2 109 (H) 80 - 100 MMHG Base,Deficit 8.3 (H) 0.0 - 2.0 MMOL/L Portable HCO3 18.2 (L) 22 - 26 MMOL/L % O2 Sat 98.6 >90 % Vinicius's Test NA Sample Site TERRA Insp. O2 Conc. 100 % POCT ABG Rapid K GLU HH Collection Time: 01/13/25 3:31 PM Result Value Ref Range Portable potassium 4.1 3.5 - 5.0 mmol/L Glucose 118 (H) 65 - 99 mg/dL Portable HGB 9.4 (L) 11.7 - 15.5 g/dL Portable hematocrit 29 (L) 35 - 47 % Sample Type Arterial Body Temp 37.0 37.0 C pH 7.327 (L) 7.350 - 7.450 PCO2 38.8 35 - 45 MMHG PO2 68 (L) 80 - 100 MMHG Base,Deficit 5.7 (H) 0.0 - 2.0 MMOL/L Portable HCO3 20.3 (L) 22 - 26 MMOL/L % O2 Sat 94.6 >90 % Vinicius's Test NA Sample Site [facility] Insp. O2 Conc. 100 % CBC auto differential Collection Time: 01/14/25 6:09 AM Result Value Ref Range White Blood Cells 11.3 (H) 4.0 - 11.0 X10E9/L RBC count 2.51 (L) 3.80 - 5.20 X10E12/L Hemoglobin 7.7 (L) 11.7 - 15.5 g/dL Hematocrit 23.8 (L) 35 - 47 % MCV 95 80 - 100 fL MCH 30.8 27 - 34 pg MCHC 32.5 32 - 36 g/dL RDW 14.9 11.5 - 15.0 % Platelets 166 150 - 450 X10E9/L MPV 8.0 7 - 12 fL % neutrophils 92.1 % % lymphocytes 3.7 % % monocytes 4.1 % % eosinophils 0.0 % % Basophils 0.1 % Neutrophils Absolute (A) 10.4 (H) 1.5 - 6.6 X10E9/L Lymphocytes Absolute 0.4 (L) 1.0 - 3.5 X10E9/L Monocytes Absolute 0.5 0 - 0.9 X10E9/L Eosinophils Absolute 0.0 0.0 - 0.4 X10E9/L Basophils Absolute 0.0 0.0 - 0.2 X10E9/L Basic Metabolic Panel Collection Time: 01/14/25 6:09 AM Result Value Ref Range Sodium 141 134 - 146 mmol/L Potassium, Bld 4.7 3.5 - 5.0 mmol/L Chloride 112 (H) 98 - 109 mmol/L CO2 20 (L) 22 - 32 mmol/L Anion gap 9 5 - 15 mmol/L BUN 53 (H) 5 - 27 mg/dL Creatinine 1.93 (H) 0.40 - 1.00 mg/dL Glucose 152 (H) 65 - 99 mg/dL Calcium 7.8 (L) 8.5 - 10.5 mg/dL eGFR (CKD-EPI)non-race dependent 28 (L) >59 ml/min/1.73sq.m Vitamin D 25 hydroxy Collection Time: 01/14/25 6:09 AM Result Value Ref Range Vit D, 25-Hydroxy 44.4 30 - 100 ng/mL Imaging X-ray tibia fibula left minimum 2 views Result Date: 01/13/2025 EXAM: XR TIBIA FIBULA LT MIN 2 VWS CLINICAL INFORMATION: s/p ORIF. COMPARISON: 01/12/2025 FINDINGS: There are postsurgical changes compatible with interval tibial ORIF with an intramedullary harjit and medial plate and screws transfixing fractures of the proximal tibia. Changes of pre-existing knee arthroplasty and femoral ORIF are noted. Soft tissue gas is compatible with the patient's immediate postoperative status. IMPRESSION: Postsurgical changes status post interval tibial ORIF, as above. Immediate postoperative changes are noted. Finalized by Rafa Cifuentes MD on 01/13/2025 10:25 PM X-ray tibia fibula left minimum 2 views Result Date: 01/13/2025 EXAM: XR TIBIA FIBULA LT MIN 2 VWS CLINICAL INFORMATION: orif left tibia. COMPARISON: 01/12/2025 FINDINGS: Intraoperative fluoroscopy was provided to the ordering clinical service. There are 28 spot images demonstrating tibial ORIF with a plate and screws. Again seen are changes of knee arthroplasty and femoral ORIF. Reference Air Kerma: 6.94 mGy IMPRESSION: Intraoperative fluoroscopy was provided to the ordering clinical service, as above. Finalized by Rafa Cifuentes MD on 01/13/2025 10:23 PM ASSESSMENT: Keila Allen is a 69 y.o. female 1 Day Post-Op OPEN REDUCTION INTERNAL FIXATION TIBIA WITH STRESS EXAMINATION, Left - Leg Lower PLAN - no plans for further operative intervention this hospitalization - partial weight-bearing to left lower extremity (40-60 lb with the use of a walker) - ABX: Clindamycin for 72 hours postoperatively. -dressings: To be changed postop day 2 by surgical team -DVT prophylaxis: On warfarin at home. Okay to resume Lovenox with transition back to Coumadin as needed. We will defer to primary for this. -PT/OT - We will continue to follow up. Remainder of care per primary team Everton Estes Orthopedic Surgery Resident, PGY-2 01/14/2025 Cosigned by Beau Rodriguez MD at 01/14/2025 9:19 AM EDT Associated attestation - Beau Rodriguez MD - 01/14/2025 9:19 AM EDT I, BEAU RODRIGUEZ MD, agree with above and have reviewed/discussed the aforementioned clinical evaluation. I have discussed with the above care provider the above findings and agree with the plan and the above documentation is appropriate. BEAU RODRIGUEZ MD Images from the original note were not included. [facility] [address] [place] [address] PROGRESS NOTE Keila Allen resting comfortably. SUBJECTIVE Allergies: Allergies Allergen Reactions Cephalexin Shortness Of Breath, Swelling and Rash Tolerates ceftriaxone Dicloxacillin Sodium Shortness Of Breath, Swelling and Rash Tolerates ceftriaxone Lipitor [Atorvastatin] muscle cramps Nifedipine Hypotension Other reaction(s): Allergy: EDEMA; Penicillin G Potassium Hives Penicillins Hives Tolerates ceftriaxone CURRENT MEDICATIONS acetaminophen, 1,000 mg, oral, Q8H calcium carbonate-vitamin D3, 1 tablet, oral, BID with meals calcium citrate, 400 mg, oral, TID with meals cholecalciferol (vitamin D3), 2,000 Units, oral, Daily clindamycin (CLEOCIN) IV, 900 mg, intravenous, Q8H DULoxetine, 60 mg, oral, Daily ezetimibe, 10 mg, oral, Daily ferrous sulfate, 325 mg, oral, Daily with breakfast sennosides-docusate sodium, 2 tablet, oral, Nightly sodium chloride, 1,000 mL, intravenous, Once traZODone, 50 mg, oral, Nightly CONTINUOUS INFUSIONS Review of Systems: Cardiovascular: No chest pain, dyspnea on exertion, palpitations or loss of consciousness. No cough, hemoptysis, pleuritic pain, or phlebitis. Respiratory: No cough or wheezing, no sputum production, no hematemesis. Neurological: No headache, diplopia, change in muscle strength, numbness or tingling. No change in gait, balance, coordination, mood, affect, memory, mentation, behavior. Hematologic/Lymphatic: No abnormal bruising or bleeding, blood clots or swollen lymph nodes. OBJECTIVE CBC: Results from last 7 days Lab Units 01/13/25 0650 WBC X10E9/L 7.0 HEMOGLOBIN g/dL 10.8* HEMATOCRIT % 33.0* MCV fL 94 PLATELETS X10E9/L 189 BMP: Results from last 7 days Lab Units 01/13/25 0650 01/12/25 1804 SODIUM mmol/L 141 138 POTASSIUM mmol/L 4.1 3.8 CHLORIDE mmol/L 112* 108 CO2 mmol/L 19* 19* BUN mg/dL 59* 57* CREATININE mg/dL 2.24* 2.13* CALCIUM mg/dL 8.5 8.7 PT/INR: Results from last 7 days Lab Units 01/13/25 0650 01/12/25 1804 01/10/25 0000 PROTIME sec 20.7* 29.3* -- INR 1.8* 2.6* 2.5* APTT: MAG: D Dimer: Troponin I ProBNP Lipid Panel: Lab Results Component Value Date CHOL 142 (L) 11/30/2023 TRIG 127 11/30/2023 HDL 75 11/30/2023 Liver Panel: No results found for: ALB HgA1C: Lab Results Component Value Date HGBA1C 4.9 10/06/2022 ABG: CV TESTING HISTORY: ECHO: Echo complete W/O contrast Result Date: 08/10/2023 Left Ventricle: There is severe focal basal [...] The aortic root is normal in size. STRESS: Nuc stress Lexiscan Result Date: 08/11/2023 SUMMARY 1. Benign study without evidence of stress induced myocardial ischemia or prior infarction 2. LVEF > 70% 3. Stress ECG demonstrates sinus rhythm, no evidence of stress induced myocardial ischemia by ECG criteria 4. Low risk study overall 5. CT attenuation correction not available 6. Details below 7. Correlate clinically EXAM TYPE: Stress myocardial perfusion exam with Lexiscan stress and Cardiolite SPECT MPI DATE: 08/11/2023 INDICATION: Chest pain EXAM NARRATIVE: Patient was injected at rest with 10.4 mCi of Technetium 99m Sestamibi, followed by resting SPECT myocardial perfusion imaging. The patient was then stressed with an IV dose of Lexiscan 0.4 mg per protocol. After that time, patient was reinjected with 30.4 mCi of Technetium 99m Sestamibi, and repeat SPECT myocardial perfusion imaging with ECG gating was performed. CT attenuation correction was not available. Review of process reconstructed tomographic imaging performed in the vertical long axis, horizontal long axis, and short axis was performed. TOMOGRAPHIC FINDINGS: No evidence of reversible myocardial perfusion defect noted to suggest myocardial ischemia. There is evidence of fixed myocardial perfusion defect noted -- moderate in size, moderate in intensity -- involving the basal to mid inferior wall, inferoseptum, and inferolateral wall, suggestive of attenuation artifact in the setting of normal wall motion in this territory on gated images. No visual evidence of transient ischemic dilatation to suggest balanced ischemia. Calculated TID ratio 1.04 within normal limits. Summed difference score 0 within normal limits. GATED IMAGING: Normal left ventricular size and wall thickening with a calculated normal left ventricular ejection fraction > 70% with no evidence of regional wall motion abnormalities or dyssynchrony on gated imaging. CXR: X-ray chest 1 view Result Date: 01/12/2025 CHEST 1 VIEW HISTORY: Preop COMPARISON: 06/02/2024 FINDINGS: No focal airspace disease, pulmonary edema, pleural effusions, or pneumothorax. Normal cardiomediastinal silhouette. IMPRESSION: No acute cardiopulmonary disease. Finalized by Isaías Sykes MD on 01/12/2025 10:08 PM PHYSICAL EXAM Admission Weight: Weight: 99.8 kg (220 lb) I/O last 3 completed shifts: In: 4825.4 [I.V.:3500; Blood:225; IV Piggyback:1100.4] Out: 1100 [Urine:400; Blood:700] Weight change: Wt Readings from Last 3 Encounters: 01/13/25 99.8 kg (220 lb) 12/14/24 95.3 kg (210 lb 1.6 oz) 11/29/24 95.3 kg (210 lb 1.6 oz) Vitals: Vitals: 01/13/25 1948 01/13/25 1954 01/13/25 2308 01/13/25 2330 BP: 99/54 102/60 93/57 (!) 56/43 Pulse: 90 86 85 Resp: 09 12 19 Temp: 36.6 C (97.9 F) 36.6 C (97.9 F) 36.7 C (98.1 F) TempSrc: Oral Oral Oral SpO2: 92% 96% 97% Weight: Height: Admit Weight Weight: 99.8 kg (220 lb) Last 3 Weights Last 3 Weight Readings 01/13/25 1039 01/13/25 1147 Weight: 99.8 kg (220 lb) 99.8 kg (220 lb) Body mass index is 36.61 kg/m . INTAKE/OUTPUT I/O last 3 completed shifts: In: 4825.4 [I.V.:3500; Blood:225; IV Piggyback:1100.4] Out: 1100 [Urine:400; Blood:700] Intake/Output Summary (Last 24 hours) at 01/14/202532 Last data filed at 01/13/2025 1900 Gross per 24 hour Intake 3825 ml Output 1200 ml Net 2625 ml General appearance: In no acute distress Skin: Warm and dry to touch Head: Normocephalic, without obvious abnormality, atraumatic Lungs: Clear to ausculation bilaterally, no use of accessory muscles Heart:: RRR with normal S1 and S2, no murmurs and no gallops. ASSESSMENT Chronic HFpEF Paroxysmal Atrial Fibrillation Left Femur Fx - POD 1 PLAN Resume warfarin when able. RICHARD RAMOS PA-C This note was completed using a voice cartographic aide system. Every effort was made to ensure accuracy. However, inadvertent computerized cartographic aide errors may be present. Richard Ramos PA-C 01/14/2534 Cosigned by Camille White MD at 01/14/2025 3:19 AM EDT Images from the original note were not included. Brief orthopedic surgery preoperative note We reviewed the proposed procedure of reduction and fixation of her left proximal periprosthetic tibia fracture around her left total knee arthroplasty. I plan to use a harjit, plates and screws, and cement. The patient seemed to understand will be involved and agreed to proceed. Informed consent was obtained. The affected left leg was marked. Media Information Document Information Photos/Images Informed consent for periprosthetic proximal tibia fracture surgery 01/13/2025 12:39 Attached To: Hospital Encounter on 01/12/25 Source Information Renan Delaney MD t [facility] Document History Renan Delaney MD 01/13/2025 Patient Name: Keila Allen : 1955 Code status: Problem List: Principal Problem: Closed fracture of proximal end of left tibia, unspecified fracture morphology, initial encounter Chief Complaint: No new complaints Assessment and Plan: Left proximal tibial periprosthetic fracture and fibular fracture, history of osteoporosis status post multiple fractures: Status post orthopedic surgery evaluation, noted plan for surgical intervention later today. Status post cardiology evaluation for preop risk stratification low to moderate risk. Vitamin K was given for INR reversal, further management per ortho. Continue calcium and vitamin-D supplementation. Check vitamin D level. AFib: Resume anticoagulation once cleared by ortho. JUDE on CKD IIIb: Monitor urine output and renal function. Continue LR hydration for now. If no improvement we will consult Nephrology. YUNG. History of gastric sleeve. Chronic bilateral lower extremity lymphedema. DVT prophylaxis with scd. Code Status: full code. SUBJECTIVE: The patient reports feeling comfortable with the surgery plan plan. OBJECTIVE: Exam: BP 105/56 Pulse 87 Temp 36.7 C (98.1 F) (Skin) Resp 21 Ht 165.1 cm (5' 5 ) Wt 99.8 kg (220 lb) SpO2 96% BMI 36.61 kg/m Intake/Output Summary (Last 24 hours) at 01/13/2025 1204 Last data filed at 01/13/2025 0542 Gross per 24 hour Intake 1050.4 ml Output -- Net 1050.4 ml Wt Readings from Last 3 Encounters: 01/13/25 99.8 kg (220 lb) 12/14/24 95.3 kg (210 lb 1.6 oz) 11/29/24 95.3 kg (210 lb 1.6 oz) Physical Exam: Physical Exam VS: reviewed Gen: Appears staged age, In no acute distress Heart: RRR. No gallop. B/l LE edema Lungs: non labored respiration, without wheezing. Abdomen: Soft, nontender, nondistended. Skin: Warm, dry, not jaundiced Psych: Appropriate judgement, affect, mood Medications: Scheduled Medications: [Transfer Hold] acetaminophen, 1,000 mg, oral, Q8H acetaminophen, 1,000 mg, oral, Once [Transfer Hold] calcium carbonate-vitamin D3, 1 tablet, oral, BID with meals [Transfer Hold] sennosides-docusate sodium, 2 tablet, oral, Nightly Infusions: [Transfer Hold] dextrose 5 % in water, 100 mL/hr lactated ringer's, 50 mL/hr [Transfer Hold] sodium chloride 0.9 %, 20 mL/hr PRN medications [Transfer Hold] dextrose, 15 g, PRN [Transfer Hold] dextrose 5 % in water, 100 mL/hr, Continuous PRN [Transfer Hold] dextrose 50 % in water (D50W), 25 mL, PRN [Transfer Hold] glucagon (human recombinant), 1 mg, PRN lidocaine PF, 0.1 mL, PRN midazolam, 2 mg, PRN [Transfer Hold] ondansetron, 4 mg, Q8H PRN [Transfer Hold] oxyCODONE, 10 mg, Q4H PRN [Transfer Hold] oxyCODONE, 5 mg, Q4H PRN [Transfer Hold] sodium chloride 0.9 %, 20 mL/hr, Continuous PRN Recent Results (from the past 48 hours) Basic Metabolic Panel Collection Time: 01/12/25 6:04 PM Result Value Ref Range Sodium 138 134 - 146 mmol/L Potassium, Bld 3.8 3.5 - 5.0 mmol/L Chloride 108 98 - 109 mmol/L CO2 19 (L) 22 - 32 mmol/L Anion gap 11 5 - 15 mmol/L BUN 57 (H) 5 - 27 mg/dL Creatinine 2.13 (H) 0.40 - 1.00 mg/dL Glucose 103 (H) 65 - 99 mg/dL Calcium 8.7 8.5 - 10.5 mg/dL eGFR (CKD-EPI)non-race dependent 24 (L) >59 ml/min/1.73sq.m Protime & INR Collection Time: 01/12/25 6:04 PM Result Value Ref Range Protime 29.3 (H) 9.8 - 13.2 sec Inr 2.6 (H) 0.9 - 1.2 APTT Collection Time: 01/12/25 6:04 PM Result Value Ref Range aPTT 23 (L) 26 - 37 sec Type and screen Collection Time: 01/12/25 11:00 PM Result Value Ref Range ABO A RH Positive Antibody Screen Negative Protime & INR Collection Time: 01/13/25 6:50 AM Result Value Ref Range Protime 20.7 (H) 9.8 - 13.2 sec Inr 1.8 (H) 0.9 - 1.2 Basic Metabolic Panel Collection Time: 01/13/25 6:50 AM Result Value Ref Range Sodium 141 134 - 146 mmol/L Potassium, Bld 4.1 3.5 - 5.0 mmol/L Chloride 112 (H) 98 - 109 mmol/L CO2 19 (L) 22 - 32 mmol/L Anion gap 10 5 - 15 mmol/L BUN 59 (H) 5 - 27 mg/dL Creatinine 2.24 (H) 0.40 - 1.00 mg/dL Glucose 111 (H) 65 - 99 mg/dL Calcium 8.5 8.5 - 10.5 mg/dL eGFR (CKD-EPI)non-race dependent 23 (L) >59 ml/min/1.73sq.m CBC without diff Collection Time: 01/13/25 6:50 AM Result Value Ref Range White Blood Cells 7.0 4.0 - 11.0 X10E9/L RBC count 3.50 (L) 3.80 - 5.20 X10E12/L Hemoglobin 10.8 (L) 11.7 - 15.5 g/dL Hematocrit 33.0 (L) 35 - 47 % MCV 94 80 - 100 fL MCH 31.0 27 - 34 pg MCHC 32.8 32 - 36 g/dL RDW 14.3 11.5 - 15.0 % Platelets 189 150 - 450 X10E9/L MPV 7.6 7 - 12 fL Lab Review Results from last 7 days Lab Units 01/13/25 0650 01/12/25 1804 POTASSIUM mmol/L 4.1 3.8 CHLORIDE mmol/L 112* 108 CO2 mmol/L 19* 19* BUN mg/dL 59* 57* CREATININE mg/dL 2.24* 2.13* CALCIUM mg/dL 8.5 8.7 Results from last 7 days Lab Units 01/13/25 0650 WBC X10E9/L 7.0 HEMOGLOBIN g/dL 10.8* HEMATOCRIT % 33.0* PLATELETS X10E9/L 189 Imaging: X-ray chest 1 view Result Date: 01/12/2025 CHEST 1 VIEW HISTORY: Preop COMPARISON: 06/02/2024 FINDINGS: No focal airspace disease, pulmonary edema, pleural effusions, or pneumothorax. Normal cardiomediastinal silhouette. IMPRESSION: No acute cardiopulmonary disease. Finalized by Isaías Sykes MD on 01/12/2025 10:[address] knee left without contrast Result Date: 01/12/2025 CT KNEE LT WO CONT CLINICAL INFORMATION: Tibia fracture, eval component, pre op planning COMPARISON: None. PROCEDURE: Routine CT of the left knee was obtained without contrast. Sagittal and coronal reformats were obtained from the axial data. Automated exposure control was utilized. All CT scans at this facility use dose modulation, iterative reconstruction, and/or weight based dosing when appropriate to reduce radiation dose to as low as reasonably achievable. FINDINGS: Extensive edema and stranding present in the soft tissues. Lipohemarthrosis is suspected. Lateral soft tissue swelling is noted. Patella is intact. Surgical fixation of the femur. Nondisplaced transversely oriented fracture of the proximal tibia involving the distal tip of the tibial stem of the knee prosthesis. There is a nondisplaced fracture of the proximal fibula. There is slight angulation of the tibial fracture. IMPRESSION: * Left knee arthroplasty with proximal tibial periprosthetic fracture as well as fibular fracture. * Edema and stranding in the soft tissues, cannot exclude lipohemarthrosis. * Please see above for further details. Finalized by Roel Nino MD on 01/12/2025 9:40 PM X-ray clavicle left Result Date: 01/12/2025 XR CLAVICLE LT CLINICAL INFORMATION: Eval for fx COMPARISON: None. IMPRESSION: * No fracture. Moderate degenerative changes. Finalized by Roel Nino MD on 01/12/2025 8:53 PM X-ray shoulder left minimum 2 views Result Date: 01/12/2025 CLINICAL INFORMATION: Pain, rule out fracture TECHNIQUE: XR SHOULDER LT MIN 2 VWS 3 views left shoulder were obtained. AC joint degenerative changes noted. Humeral head is high riding. No fracture appreciated. No dislocation. IMPRESSION: AC joint degenerative changes and probable chronic rotator cuff tear. Finalized by Sathya Carroll MD on 01/12/2025 8:26 PM X-ray tibia fibula left minimum 2 views Result Date: 01/12/2025 XR TIBIA FIBULA LT MIN 2 VWS CLINICAL INFORMATION: s/p fall. Leg pain. COMPARISON: 05/17/2021. IMPRESSION: * Transverse fracture of the proximal tibia near the stem of the tibial component of the patient's knee prosthesis. Knee radiographs are recommended. * Cannot exclude proximal fibular fracture. * Surgical fixation of the distal femur with fracture in this region again noted. * Osteopenia and degenerative changes present. * Soft tissue swelling. Finalized by Roel Nino MD on 01/12/2025 6:57 PM X-ray femur left 2+ views Result Date: 01/12/2025 XR FEMUR LT 2+ VIEWS CLINICAL INFORMATION: s/p fall. Leg pain. COMPARISON: 11/15/2024. IMPRESSION: * Soft tissue swelling overlying the proximal femur. Rounded density measuring 8.1 cm, hematoma or other process is not excluded. * Surgical fixation of the distal femur with anatomic alignment of fracture, knee arthroplasty present. No change in alignment. Finalized by Roel Nino MD on 01/12/2025 6:56 PM X-ray hip left 2-3 views with or without pelvis Result Date: 01/12/2025 CLINICAL INFORMATION: s/p fall TECHNIQUE: XR HIP LT 2-3 VIEWS W OR WO PELVIS 3 views left hip were obtained. The exam is limited. Femoral neck appears intact. No intratrochanteric abnormality noted to within the limits of this exam. Pelvic ring unremarkable. Crosstable lateral view is nondiagnostic. IMPRESSION: No acute findings. Finalized by Sathya Carroll MD on 01/12/2025 6:[address] brain without contrast Result Date: 01/12/2025 CLINICAL INFORMATION: s/p fall with head injury COMPARISON: 10/05/2022. PROCEDURE: Routine CT Head obtained without contrast. All CT scans at this facility use dose modulation, iterative reconstruction, and/or weight based dosing when appropriate to reduce radiation dose to as low as reasonably achievable. FINDINGS: No acute intracranial hemorrhage. No mass effect or midline shift. No extra-axial fluid collections. The ventricles and sulci are prominent consistent with global atrophy. Low-attenuation areas identified in the periventricular white matter consistent with microvascular ischemia. No depressed calvarial fracture. IMPRESSION: * No acute intracranial findings by CT. Finalized by Roel Nino MD on 01/12/2025 6:32 PM This note was created with the assistance of a speech-recognition program. Although the intention is to generate a document that actually reflects the content of the visit, no guarantees can be provided that every mistake has been identified and corrected by editing. documented in this encounter [facility] 01-18-2025 Plan of care note Problem: Potential for Compromised Skin Integrity Goal: Skin integrity is maintained or improved Description: Patient's goal is: INTERVENTIONS 1. Perform initial skin assessment on admission and as needed 2. Turn patient every 2 hours and PRN 3. Relieve pressure to bony prominences 4. Avoid shearing 5. Keep skin clean and dry 6. Alternate a full bath with partial baths for elderly 7. Apply lotion/moisturizer on skin 8. Monitor patient's hygiene practices 9. Float heels 10. Collaborate with interdisciplinary team and initiate plans and interventions as needed Outcome: Progressing Note: Evaluation of progress towards goal: Pt remains free from new or worsening wounds Goal: Patient's nutritional intake is adequate Description: Patient's goal is: INTERVENTIONS 1. Assess and monitor food intake and supplements, patient food preferences, nausea, vomiting, labs, oral cavity (gums, teeth, tongue, mucosa), proper denture fit, and cultural beliefs 2. Monitor for signs of hypoglycemia and hyperglycemia 3. Collaborate with interdisciplinary team and initiate plan and interventions as ordered 4. Monitor patient's weight 5. Assist patient with meals/food selection 6. Assist patient with eating 7. Allow adequate time for meals 8. Provide pleasant environment during mealtime 9. Increase social contact during mealtimes 10. Plan activities to conserve energy 11. Encourage/perform oral hygiene as appropriate 12. Encourage patient to take dietary supplement as ordered 13. Collaborate with clinical gluer and wedger 14. Include patient/ patient's senior human resources representative in decisions related to nutrition Outcome: Progressing Note: Evaluation of progress towards goal: Pt orders three meals a day Problem: Urinary Incontinence Goal: Perineal skin integrity is maintained or improved Description: INTERVENTIONS 1. Assess genitourinary system, perineal skin, labs (urinalysis), and history of incontinence to include past management, aggravating, and alleviating factors 2. Keep skin clean and dry 3. Apply skin protectant 4. Develop skin care regimen 5. Provide privacy when changing patients incontinence device to maintain their dignity 6. Consider placing an indwelling catheter 7. Collaborate with interdisciplinary team and initiate plans and interventions as needed Outcome: Progressing Note: Evaluation of progress towards goal: Patient perineal skin integrity maintained Problem: Inadequate Airway Clearance Goal: Patient will maintain patent airway Description: INTERVENTIONS 1. Assess and monitor breath sounds, cough and sputum (if present) 2. Monitor respiratory rate and oxygen saturation 3. Collaborate with respiratory therapy to administer medication, oxygen, and suitable airway clearance techniques as ordered 4. Position patient for maximum ventilatory efficiency; elevate head of bed at least 30 degrees if appropriate 5. Provide adequate fluid intake to liquify secretions if appropriate 6. Suction secretions as indicated to maintain patent airway 7. Instruct patient to turn, cough, and deep breathe; encourage incentive spirometer if indicated Outcome: Progressing Note: Evaluation of progress towards goal: patient has patent airway Problem: Inadequate Breathing Pattern Goal: Patient will achieve/maintain normal respiratory rate/effort Description: Patient's goal is: INTERVENTIONS 1. Assess and monitor respiratory rate, effort, breathing pattern, and oxygenation 2. Monitor patient for restlessness, anxiety, air hunger 3. Assess physical activity tolerance 4. Assess tobacco history; ask, advise, and refer as appropriate 5. Collaborate with interdisciplinary team and initiate plans/interventions as needed Outcome: Progressing Note: Evaluation of progress towards goal: patient respiratory rate within normal limits Goal: Patient will maintain effective ventilation Description: Patient's goal is: INTERVENTIONS 1. Assess and monitor vital signs, respiratory status (to include respiratory rate, depth, effort, and breath sounds), oxygen saturation, oral mucosa, tongue, pain, and labs (ABGs). 2. Collaborate with interdisciplinary team and initiate plans and interventions as needed 3. Oxygen therapy as indicated 4. Position patient for maximum ventilatory efficiency 5. Instruct patient to turn, cough, and deep breathe; encourage incentive spirometer if indicated 6. Plan activities to conserve energy 7. Encourage ambulation/activity per patient's tolerance 8. Collaborate with patient/RT to administer medications/treatments 9. Monitor lab/diagnostic results Outcome: Progressing Note: Evaluation of progress towards goal: pt oxygen saturation within defined limits Problem: Anxiety Goal: Anxiety is at manageable level Description: Patient's goal is: INTERVENTIONS 1. Assess and monitor patient's anxiety level 2. Monitor for signs and symptoms of anxiety both physical and emotional (heart palpitations, chest pain, shortness of breath, headaches, nausea, feeling jumpy, restlessness, irritable, apprehensive) 3. Reorient/orient patient to unit/surroundings 4. Explain treatment plan 5. Explain tests/procedures prior to initiation 6. Encourage participation in care 7. Encourage verbalization of concerns/fears 8. Assess coping mechanisms 9. Assist in developing anxiety-reducing skills 10. Administer complimentary therapies 11. Manage patient's environment 12. Limit or eliminate stimulants such as caffeine and nicotine 13. Collaborate with ancillary departments 14. Include patient/patient senior human resources representative in decisions related to anxiety Outcome: Progressing Note: Evaluation of progress towards goal: patient is calm Problem: Activity Intolerance/Impaired Mobility Goal: Mobility/activity is maintained at optimum level for patient Description: Patient's goal is: INTERVENTIONS 1. Assess and monitor patient barriers to mobility and need for assistive/adaptive devices 2. Assess patient's emotional response to limitations 3. Collaborate with interdisciplinary teams and initiate plans and interventions as ordered 4. Encourage independent activity per tolerance 5. Maintain proper body alignment 6. Perform active/passive ROM as tolerated/ordered 7. Coordinate activities to conserve energy 8. Reposition patient 9. Ensure adequate rest/sleep time Outcome: Progressing Note: Evaluation of progress towards goal: ROM encouraged Problem: Inadequate Coping Goal: Demonstrates and verbalizes ability to cope effectively Description: Patient's goal is: INTERVENTIONS 1. Patient is able to verbalize feelings related to emotional state 2. Encourage verbalization of feelings, perceptions, fears, stressors, loss of loved ones 3. Encourage verbalization of problems out of their control 4. Encourage participation in care and self management 5. Inform patient of all treatment/care prior to providing care 6. Collaborate with pastoral/spiritual care, social human services assistants, mental health counselor as needed. 7. Instruct patient on diversional activities such as physical activity, distraction, and deep breathing exercises to assist with coping 8. Involve patient's senior human resources representative in care Outcome: Progressing Note: Evaluation of progress towards goal: patient able to express needs Problem: Pain Goal: Patient goal is pain score less than 4, able to rest, and participant in treatment plan as appropriate Description: INTERVENTIONS: 1. Encourage patient or legal senior human resources representative to report early pain and ask for pain medicine when needed 2. Assess pain using appropriate pain scale and include the scale used when documenting 3. Administer analgesics based on type and severity of pain and evaluate response within appropriate time frame 4. Implement non-pharmacological measures as appropriate and evaluate response 5. Consider cultural and social influences on pain and pain management 6. Notify LIP if interventions ineffective or patient reports new pain 7. Monitor vital signs including pulse ox 8. Reassess pain per policy 9. Teach patient or legal senior human resources representative interventions for comforting Outcome: Progressing Note: Evaluation of progress towards goal: Pain controlled with current medication Problem: Safety Goal: Patient will be injury free during hospitalization Description: INTERVENTIONS: 1. Assess patient's risk for falls and implement fall prevention plan of care per policy 2. Provide and maintain a safe environment 3. Proper use of double Identifiers 4. Medication administration using the 5 rights 5. Hand hygiene 6. Specimens are labeled at the bedside 7. Instruct patient/ patient senior human resources representative about use of safety devices 8. Include patient/ patient senior human resources representative in decisions related to safety Outcome: Progressing Note: Evaluation of progress towards goal: Patient remains free from any falls or injuries Problem: Infection Goal: Absence of infection during hospitalization Description: INTERVENTIONS 1. Assess and monitor for signs and symptoms of infection. 2. Monitor lab/diagnostic results. 3. Monitor all insertion sites i.e., indwelling lines, tubes and drains. 4. Monitor endotracheal (as able) and nasal secretions for changes in amount and color. 5. Administer medications as ordered. 6. Instruct and encourage patient and family to use good hand hygiene technique. 7. Identify and instruct patient/patient senior human resources representative in use of appropriate isolation precautions for identified infection/symptoms. 8. Provide and discuss with patient/patient senior human resources representative on educational MDRO sheet. 9. Encourage and monitor nutritional status daily and consult gluer and wedger if indicated. 10. Implement neutropenic guidelines as needed. Outcome: Progressing Note: Evaluation of progress towards goal: Patient remains free from any signs and symptoms of infection at this time Problem: Knowledge Deficit Goal: Patient/patient senior human resources representative demonstrates understanding of disease process, treatment plan, medications, and discharge instructions Description: INTERVENTIONS 1. Complete learning assessment and assess knowledge base 2. Provide teaching at level of understanding 3. Provide teaching via preferred learning method(s) Outcome: Progressing Note: Evaluation of progress towards goal: Patient will voice any questions or concerns during this admission Problem: Discharge Planning Goal: Discharge to post-acute care, other facility, or home with appropriate resources Description: Patient's goal is: INTERVENTIONS 1. Conduct assessment to determine patient/family and health care team treatment goals, and need for post-acute services based on payer coverage, community resources, and patient preferences, and barriers to discharge 2. Coordinate with Social work, Care Navigation, and Utilization Review to arrange appropriate level of services according to patient's needs based on patient preference and payer coverage in collaboration with the physician and health care team 3. Address psychosocial, clinical, and financial barriers to discharge as identified in assessment in conjunction with the patient/family and health care team 4. Consult appropriate ancillary services (i.e.. PT/OT/ST, etc) as needed 5. Communicate with and update the patient/family, physician, and health care team regarding progress on the discharge plan 6. Identify discharge learning needs (meds, wound care, etc). 7. Arrange for needed discharge 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 as appropriate Outcome: Progressing Note: Evaluation of progress towards goal: Patient will voice any questions or concerns about discharge during the hospital admission Problem: Moderate - High Risk Fall Score Description: Bach Fall Score of =/> 25 or indicated by [facility] Assessment Goal: Patient should be free from fall Description: Interventions: 1. Aldie to environment 2. Hourly rounds addressing the 4 P's (Pain, Positioning, Possessions, Potty) 3. Clear area of hazards (spills, clutter, electrical cords, unnecessary equipment) 4. Place equipment (bed & TV controls, call light, phone, urinal) within reach 5. Encourage patient to wear glasses and hearing aides as appropriate 6. Maintain bed in lowest position 7. Lock wheels on bed/wheelchair 8. Provide adequate lighting, including night light 9. Assess need for additional bedding, food/fluids, pain med's prior to sleep/routinely 10. Provide gripper slippers or personal non-skid footwear 11. Teach patient and patient senior human resources representative to maintain environment for safety and engage in all aspects of fall prevention program 12. Remind patient to call for help before getting out of bed 13. Initiate bed/chair/exit alarms supportive devices as appropriate, (chair wedge, no-skid floor mat, raised edge mattress, hip protectors) 14. Locate patient bed assignment for optimal visualization 15. Evaluate and identify Safe Patient Handling Equipment needs 16. Provide supervision when out of bed or chair 17. Utilize gait belt as needed to assist with ambulation 18. Place adaptive equipment (cane, walker) within reach 19. Request patient senior human resources representative bring adaptive equipment/mobility aids from home or obtain and provide as needed 20. Consult pharmacy regarding effects of med's affecting mobility, cognition, and alternatives 21. Obtain physician order for PT if risk factors associated with mobility are present 22. Obtain physician order for OT as appropriate 23. Utilize diversional activities 24. Educate patient and patient senior human resources representative how to maintain a safe environment during visitation times (notify nurse prior to leaving bedside) 25. Consider appropriateness of medical or non-biomedical engineering professor 26. Set up voiding schedule as appropriate (every 2 hours) Outcome: Progressing Note: Evaluation of progress towards goal: Patient remains free from any falls or injuries [facility] Plan of care note Problem: Pain Goal: Patient goal is pain score less than 4, able to rest, and participant in treatment plan as appropriate Description: INTERVENTIONS: 1. Encourage patient or legal senior human resources representative to report early pain and ask for pain medicine when needed 2. Assess pain using appropriate pain scale and include the scale used when documenting 3. Administer analgesics based on type and severity of pain and evaluate response within appropriate time frame 4. Implement non-pharmacological measures as appropriate and evaluate response 5. Consider cultural and social influences on pain and pain management 6. Notify LIP if interventions ineffective or patient reports new pain 7. Monitor vital signs including pulse ox 8. Reassess pain per policy 9. Teach patient or legal senior human resources representative interventions for comforting Note: Evaluation of progress towards goal: Patient will verbalize tolerable pain level after pain interventions. Will continue to monitor and treat pain throughout shift. Problem: Safety Goal: Patient will be injury free during hospitalization Description: INTERVENTIONS: 1. Assess patient's risk for falls and implement fall prevention plan of care per policy 2. Provide and maintain a safe environment 3. Proper use of double Identifiers 4. Medication administration using the 5 rights 5. Hand hygiene 6. Specimens are labeled at the bedside 7. Instruct patient/ patient senior human resources representative about use of safety devices 8. Include patient/ patient senior human resources representative in decisions related to safety Note: Evaluation of progress towards goal: Patient safety has been maintained, will continue with safety interventions until DC. Problem: Infection Goal: Absence of infection during hospitalization Description: INTERVENTIONS 1. Assess and monitor for signs and symptoms of infection. 2. Monitor lab/diagnostic results. 3. Monitor all insertion sites i.e., indwelling lines, tubes and drains. 4. Monitor endotracheal (as able) and nasal secretions for changes in amount and color. 5. Administer medications as ordered. 6. Instruct and encourage patient and family to use good hand hygiene technique. 7. Identify and instruct patient/patient senior human resources representative in use of appropriate isolation precautions for identified infection/symptoms. 8. Provide and discuss with patient/patient senior human resources representative on educational MDRO sheet. 9. Encourage and monitor nutritional status daily and consult gluer and wedger if indicated. 10. Implement neutropenic guidelines as needed. Note: Evaluation of progress towards goal: Patient will show no new signs of infection, will continue with stable vitals, nurse to continue to assess and monitor until DC. Problem: Knowledge Deficit Goal: Patient/patient senior human resources representative demonstrates understanding of disease process, treatment plan, medications, and discharge instructions Description: INTERVENTIONS 1. Complete learning assessment and assess knowledge base 2. Provide teaching at level of understanding 3. Provide teaching via preferred learning method(s) Note: Evaluation of progress towards goal: Nurse to continue education with patient and family as needed via their preferred learning method until DC. [facility] 01-17-2025 Progress note Formatting of t his note might be different from the original. DISCHARGE PLANNING NOTE Case discussed in daily transition rounds and chart reviewed by CN. Barriers to discharge include IV iron, hemoglobin monitoring. Discharge Plan remains: SNF: [facility]. CN will continue to follow and is available should any further needs arise. - Melita Govea RN 01/17/25 11:57 AM [facility] 01-17-2025 Plan of care note Problem: Potential for Compromised Skin Integrity Goal: Skin integrity is maintained or improved Description: Patient's goal is: INTERVENTIONS 1. Perform initial skin assessment on admission and as needed 2. Turn patient every 2 hours and PRN 3. Relieve pressure to bony prominences 4. Avoid shearing 5. Keep skin clean and dry 6. Alternate a full bath with partial baths for elderly 7. Apply lotion/moisturizer on skin 8. Monitor patient's hygiene practices 9. Float heels 10. Collaborate with interdisciplinary team and initiate plans and interventions as needed Outcome: Progressing Note: Evaluation of progress towards goal: Pt remains free from new or worsening wounds Goal: Patient's nutritional intake is adequate Description: Patient's goal is: INTERVENTIONS 1. Assess and monitor food intake and supplements, patient food preferences, nausea, vomiting, labs, oral cavity (gums, teeth, tongue, mucosa), proper denture fit, and cultural beliefs 2. Monitor for signs of hypoglycemia and hyperglycemia 3. Collaborate with interdisciplinary team and initiate plan and interventions as ordered 4. Monitor patient's weight 5. Assist patient with meals/food selection 6. Assist patient with eating 7. Allow adequate time for meals 8. Provide pleasant environment during mealtime 9. Increase social contact during mealtimes 10. Plan activities to conserve energy 11. Encourage/perform oral hygiene as appropriate 12. Encourage patient to take dietary supplement as ordered 13. Collaborate with clinical gluer and wedger 14. Include patient/ patient's senior human resources representative in decisions related to nutrition Outcome: Progressing Note: Evaluation of progress towards goal: Pt orders three meals a day Problem: Urinary Incontinence Goal: Perineal skin integrity is maintained or improved Description: INTERVENTIONS 1. Assess genitourinary system, perineal skin, labs (urinalysis), and history of incontinence to include past management, aggravating, and alleviating factors 2. Keep skin clean and dry 3. Apply skin protectant 4. Develop skin care regimen 5. Provide privacy when changing patients incontinence device to maintain their dignity 6. Consider placing an indwelling catheter 7. Collaborate with interdisciplinary team and initiate plans and interventions as needed Outcome: Progressing Note: Evaluation of progress towards goal: Patient perineal skin integrity maintained Problem: Inadequate Airway Clearance Goal: Patient will maintain patent airway Description: INTERVENTIONS 1. Assess and monitor breath sounds, cough and sputum (if present) 2. Monitor respiratory rate and oxygen saturation 3. Collaborate with respiratory therapy to administer medication, oxygen, and suitable airway clearance techniques as ordered 4. Position patient for maximum ventilatory efficiency; elevate head of bed at least 30 degrees if appropriate 5. Provide adequate fluid intake to liquify secretions if appropriate 6. Suction secretions as indicated to maintain patent airway 7. Instruct patient to turn, cough, and deep breathe; encourage incentive spirometer if indicated Outcome: Progressing Note: Evaluation of progress towards goal: patient has patent airway Problem: Inadequate Breathing Pattern Goal: Patient will achieve/maintain normal respiratory rate/effort Description: Patient's goal is: INTERVENTIONS 1. Assess and monitor respiratory rate, effort, breathing pattern, and oxygenation 2. Monitor patient for restlessness, anxiety, air hunger 3. Assess physical activity tolerance 4. Assess tobacco history; ask, advise, and refer as appropriate 5. Collaborate with interdisciplinary team and initiate plans/interventions as needed Outcome: Progressing Note: Evaluation of progress towards goal: patients breathing pattern within defined limits Goal: Patient will maintain effective ventilation Description: Patient's goal is: INTERVENTIONS 1. Assess and monitor vital signs, respiratory status (to include respiratory rate, depth, effort, and breath sounds), oxygen saturation, oral mucosa, tongue, pain, and labs (ABGs). 2. Collaborate with interdisciplinary team and initiate plans and interventions as needed 3. Oxygen therapy as indicated 4. Position patient for maximum ventilatory efficiency 5. Instruct patient to turn, cough, and deep breathe; encourage incentive spirometer if indicated 6. Plan activities to conserve energy 7. Encourage ambulation/activity per patient's tolerance 8. Collaborate with patient/RT to administer medications/treatments 9. Monitor lab/diagnostic results Outcome: Progressing Note: Evaluation of progress towards goal: Problem: Anxiety Goal: Anxiety is at manageable level Description: Patient's goal is: INTERVENTIONS 1. Assess and monitor patient's anxiety level 2. Monitor for signs and symptoms of anxiety both physical and emotional (heart palpitations, chest pain, shortness of breath, headaches, nausea, feeling jumpy, restlessness, irritable, apprehensive) 3. Reorient/orient patient to unit/surroundings 4. Explain treatment plan 5. Explain tests/procedures prior to initiation 6. Encourage participation in care 7. Encourage verbalization of concerns/fears 8. Assess coping mechanisms 9. Assist in developing anxiety-reducing skills 10. Administer complimentary therapies 11. Manage patient's environment 12. Limit or eliminate stimulants such as caffeine and nicotine 13. Collaborate with ancillary departments 14. Include patient/patient senior human resources representative in decisions related to anxiety Outcome: Progressing Note: Evaluation of progress towards goal: patient is calm Problem: Activity Intolerance/Impaired Mobility Goal: Mobility/activity is maintained at optimum level for patient Description: Patient's goal is: INTERVENTIONS 1. Assess and monitor patient barriers to mobility and need for assistive/adaptive devices 2. Assess patient's emotional response to limitations 3. Collaborate with interdisciplinary teams and initiate plans and interventions as ordered 4. Encourage independent activity per tolerance 5. Maintain proper body alignment 6. Perform active/passive ROM as tolerated/ordered 7. Coordinate activities to conserve energy 8. Reposition patient 9. Ensure adequate rest/sleep time Outcome: Progressing Note: Evaluation of progress towards goal: ROM encouraged Problem: Inadequate Coping Goal: Demonstrates and verbalizes ability to cope effectively Description: Patient's goal is: INTERVENTIONS 1. Patient is able to verbalize feelings related to emotional state 2. Encourage verbalization of feelings, perceptions, fears, stressors, loss of loved ones 3. Encourage verbalization of problems out of their control 4. Encourage participation in care and self management 5. Inform patient of all treatment/care prior to providing care 6. Collaborate with pastoral/spiritual care, social human services assistants, mental health counselor as needed. 7. Instruct patient on diversional activities such as physical activity, distraction, and deep breathing exercises to assist with coping 8. Involve patient's senior human resources representative in care Outcome: Progressing Note: Evaluation of progress towards goal: patient able to express needs Problem: Pain Goal: Patient goal is pain score less than 4, able to rest, and participant in treatment plan as appropriate Description: INTERVENTIONS: 1. Encourage patient or legal senior human resources representative to report early pain and ask for pain medicine when needed 2. Assess pain using appropriate pain scale and include the scale used when documenting 3. Administer analgesics based on type and severity of pain and evaluate response within appropriate time frame 4. Implement non-pharmacological measures as appropriate and evaluate response 5. Consider cultural and social influences on pain and pain management 6. Notify LIP if interventions ineffective or patient reports new pain 7. Monitor vital signs including pulse ox 8. Reassess pain per policy 9. Teach patient or legal senior human resources representative interventions for comforting Outcome: Progressing Note: Evaluation of progress towards goal: Patient denies pain at this time will continue to monitor Problem: Safety Goal: Patient will be injury free during hospitalization Description: INTERVENTIONS: 1. Assess patient's risk for falls and implement fall prevention plan of care per policy 2. Provide and maintain a safe environment 3. Proper use of double Identifiers 4. Medication administration using the 5 rights 5. Hand hygiene 6. Specimens are labeled at the bedside 7. Instruct patient/ patient senior human resources representative about use of safety devices 8. Include patient/ patient senior human resources representative in decisions related to safety Outcome: Progressing Note: Evaluation of progress towards goal: Patient remains free from any falls or injuries Problem: Infection Goal: Absence of infection during hospitalization Description: INTERVENTIONS 1. Assess and monitor for signs and symptoms of infection. 2. Monitor lab/diagnostic results. 3. Monitor all insertion sites i.e., indwelling lines, tubes and drains. 4. Monitor endotracheal (as able) and nasal secretions for changes in amount and color. 5. Administer medications as ordered. 6. Instruct and encourage patient and family to use good hand hygiene technique. 7. Identify and instruct patient/patient senior human resources representative in use of appropriate isolation precautions for identified infection/symptoms. 8. Provide and discuss with patient/patient senior human resources representative on educational MDRO sheet. 9. Encourage and monitor nutritional status daily and consult gluer and wedger if indicated. 10. Implement neutropenic guidelines as needed. Outcome: Progressing Note: Evaluation of progress towards goal: Patient remains free from any signs and symptoms of infection at this time Problem: Knowledge Deficit Goal: Patient/patient senior human resources representative demonstrates understanding of disease process, treatment plan, medications, and discharge instructions Description: INTERVENTIONS 1. Complete learning assessment and assess knowledge base 2. Provide teaching at level of understanding 3. Provide teaching via preferred learning method(s) Outcome: Progressing Note: Evaluation of progress towards goal: Patient will voice any questions or concerns during this admission Problem: Discharge Planning Goal: Discharge to post-acute care, other facility, or home with appropriate resources Description: Patient's goal is: INTERVENTIONS 1. Conduct assessment to determine patient/family and health care team treatment goals, and need for post-acute services based on payer coverage, community resources, and patient preferences, and barriers to discharge 2. Coordinate with Social work, Care Navigation, and Utilization Review to arrange appropriate level of services according to patient's needs based on patient preference and payer coverage in collaboration with the physician and health care team 3. Address psychosocial, clinical, and financial barriers to discharge as identified in assessment in conjunction with the patient/family and health care team 4. Consult appropriate ancillary services (i.e.. PT/OT/ST, etc) as needed 5. Communicate with and update the patient/family, physician, and health care team regarding progress on the discharge plan 6. Identify discharge learning needs (meds, wound care, etc). 7. Arrange for needed discharge 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 as appropriate Outcome: Progressing Note: Evaluation of progress towards goal: Patient will voice any questions or concerns about discharge during the hospital admission Problem: Moderate - High Risk Fall Score Description: Bach Fall Score of =/> 25 or indicated by [facility] Assessment Goal: Patient should be free from fall Description: Interventions: 1. Aldie to environment 2. Hourly rounds addressing the 4 P's (Pain, Positioning, Possessions, Potty) 3. Clear area of hazards (spills, clutter, electrical cords, unnecessary equipment) 4. Place equipment (bed & TV controls, call light, phone, urinal) within reach 5. Encourage patient to wear glasses and hearing aides as appropriate 6. Maintain bed in lowest position 7. Lock wheels on bed/wheelchair 8. Provide adequate lighting, including night light 9. Assess need for additional bedding, food/fluids, pain med's prior to sleep/routinely 10. Provide gripper slippers or personal non-skid footwear 11. Teach patient and patient senior human resources representative to maintain environment for safety and engage in all aspects of fall prevention program 12. Remind patient to call for help before getting out of bed 13. Initiate bed/chair/exit alarms supportive devices as appropriate, (chair wedge, no-skid floor mat, raised edge mattress, hip protectors) 14. Locate patient bed assignment for optimal visualization 15. Evaluate and identify Safe Patient Handling Equipment needs 16. Provide supervision when out of bed or chair 17. Utilize gait belt as needed to assist with ambulation 18. Place adaptive equipment (cane, walker) within reach 19. Request patient senior human resources representative bring adaptive equipment/mobility aids from home or obtain and provide as needed 20. Consult pharmacy regarding effects of med's affecting mobility, cognition, and alternatives 21. Obtain physician order for PT if risk factors associated with mobility are present 22. Obtain physician order for OT as appropriate 23. Utilize diversional activities 24. Educate patient and patient senior human resources representative how to maintain a safe environment during visitation times (notify nurse prior to leaving bedside) 25. Consider appropriateness of medical or non-biomedical engineering professor 26. Set up voiding schedule as appropriate (every 2 hours) Outcome: Progressing Note: Evaluation of progress towards goal: Patient remains free from any falls or injuries [facility] [employer] 01-16-2025 Progress note Formatting of t his note might be different from the original. DISCHARGE PLANNING NOTE Case discussed in daily transition rounds and chart reviewed by CN. Barriers to discharge include hemoglobin monitoring, INR levels. Discharge Plan remains: SNF: [facility]. Facility came to discuss admission with patient. CN will continue to follow and is available should any further needs arise. - Melita Govea RN 01/16/25 3:50 PM [employer] 01-16-2025 Consult note Associated Order (s): CONSULT BENIGN HEMATOLOGY AND BLOOD MANAGEMENT Benign Hematology/ Patient Blood Management Consultation: Dr. Dov GANT Patient ID: Keila Allen, 69 y.o. female Requested by: No ref. provider found PCP: MARYJANE DEUTSCH APRN-KAREN : [id number] REASON FOR CONSULTATION: Anemia and hgb optimization CHIEF COMPLAINT: Chief Complaint Patient presents with Fall Leg Pain HISTORY OF PRESENT ILLNESS: Keila Allen is a 69 y.o. female with history of atrial fibrillation on Coumadin, asthma, CKD, depression, frequent falls, GI hemorrhage, hypertension, sleep apnea, status post bariatric surgery who presented to the hospital with fall/fracture. Benign Hematology/ Blood Management is now consulted due to hemoglobin optimization/anemia. Patient is alert oriented able to answer all my questions at this time. Patient is sitting up in chair. Denies any lightheadedness or dizziness. Denies any shortness of breath. Denies any nausea or vomiting. Denies any issues with nose bleeds. Positive for increased bruising. States she has not had any increased bleeding from her wound PAST HEMATOLOGY / VASCULAR HISTORY: REVIEW OF SYSTEMS: Complete 10-point ROS is negative except as mentioned in HPI. PAST MEDICAL HISTORY: Past Medical History: Diagnosis Date Anemia iron deficiency Arthritis Asthma Atrial fibrillation Atrial fibrillation (HCC) [I48.91] 07/17/2017 Bilateral shoulder pain 05/04/2019 Bladder disorder 11/10/2016 Cataract Cervical disc disorder CKD (chronic kidney disease) renal insuff/follows with Dr Camacho never on dialysis Dental disease chipped Depression Depression with anxiety 10/27/2016 Disc disorder cervical, thoracic, lumbosacral Dislocation of left knee, initial encounter 11/16/2024 Dry eye syndrome 07/28/2016 Edema legs Falls frequently Gastrointestinal hemorrhage 10/05/2022 Added automatically from request for surgery [id number] GERD (gastroesophageal reflux disease) Giant cell arteritis ([facility]) 07/20/2018 Hyperlipidemia Hypertension Low back pain Lumbar disc disorder LVH (left ventricular hypertrophy) AND DIASTOLIC DYSFUNCTION Lymphedema Macular drusen, bilateral 07/28/2016 Migraine Mononucleosis Neuropathy Obesity h/o bariatric surgery 01/2018, lost >100# Osteoarthritis of cervical spine 02/24/2019 Posterior vitreous detachment of right eye 03/03/2019 Presbyopia 03/18/2019 Prolonged Q-T interval on ECG 12/2018 Rotator cuff arthropathy of right shoulder 09/16/2019 Added automatically from request for surgery [id number] Sleep apnea uses c pap/states doesn`t use every night Status post bariatric surgery 02/24/2019 Thoracic disc disorder Tinnitus Urinary incontinence Urinary urgency UTI (urinary tract infection) 03/18/2022 Visual impairment glasses Vitreous floaters of right eye 03/03/2019 Vitreous syneresis of left eye 03/03/2019 White matter abnormality on MRI of brain 02/24/2019 PAST SURGICAL HISTORY: Past Surgical History: Procedure Laterality Date BIOPSY ARTERY TEMPORAL Bilateral 07/28/2018 Performed by Jany Mesa MD at [facility] BIOPSY MUSCLE LOWER EXTREMITY Right 04/05/2019 Performed by Zaida Blue MD at [facility] COLONOSCOPY Left Lateral 10/07/2022 Performed by Gissell Ye MD at [facility] DILATION AND CURETTAGE OF UTERUS 2015 EGD Left Lateral 10/07/2022 Performed by Gissell Ye MD at [facility] GALLBLADDER SURGERY s HYSTEROSCOPY 2016 LAPAROSCOPIC SLEEVE GASTRECTOMY/ CLOSURE DIAPHRAGMATIC CRUA N/A 07/28/2018 Performed by Zaida Gil MD at [facility] NASAL SEPTUM SURGERY 1989`s OPEN REDUCTION INTERNAL FIXATION FEMUR Left 06/03/2024 Performed by Rafat Sepulveda MD at [facility] OPEN REDUCTION INTERNAL FIXATION TIBIA WITH STRESS EXAMINATION Left 01/13/2025 Performed by Renan Delaney MD at [facility] REPLACEMENT TOTAL KNEE Bilateral 09/2014 REVISION TOTAL JOINT KNEE POLY EXCHANGE Left 11/17/2024 Performed by Nafisa Navarro MD at [facility] TONSILLECTOMY x 2 as a child and second time in her 40`s PAST FAMILY HISTORY: Family History Adopted: Yes Problem Relation Age of Onset Cancer Mother Diabetes Mother SOCIAL HISTORY: Lives in home. Social History Socioeconomic History Marital status: Single [...] Defer Comment: not reviewd at this visit Other Topics Concern Not on file Social History Narrative Not on file Social Drivers of Health Financial Resource Strain: Medium Risk (01/13/2025) Overall Financial Resource Strain (CARDIA) Difficulty of Paying Living Expenses: Somewhat hard Food Insecurity: No Food Insecurity (01/15/2025) Hunger Screening Food Insecurity - Worry: Never True Food Insecurity - Inability: Never True Recent Concern: Food Insecurity - Food Insecurity Present (01/13/2025) Hunger Screening Food Insecurity - Worry: Sometimes True Food Insecurity - Inability: Sometimes True Transportation Needs: No Transportation Needs (01/13/2025) PRAPARE - Transportation Lack of Transportation (Medical): No Lack of Transportation (Non-Medical): No Physical Activity: Inactive (08/09/2023) Exercise Vital Sign Days of Exercise per Week: 0 days Minutes of Exercise per Session: 0 min Stress: No Stress Concern Present (08/09/2023) [employer] - Occupational Stress Questionnaire [...] Marital Status: Interpersonal Safety: Not At Risk (01/13/2025) Humiliation, Afraid, Rape, and Kick questionnaire Fear of Current or Ex-Partner: No Emotionally Abused: No Physically Abused: No Sexually Abused: No Housing Instability: Low Risk (01/13/2025) Housing Instability Housing Instability: No MEDICATIONS: No current facility-administered medications on file prior to encounter. Current Outpatient Medications on File Prior to Encounter Medication Sig Dispense Refill calcium citrate (CALCITRATE) 200 mg (950 mg) tablet Take 2 tablets (400 mg total) by mouth in the morning and 2 tablets (400 mg total) at noon and 2 tablets (400 mg total) in the evening. Take with meals. cholecalciferol, vitamin D3, 2,000 units tablet Take 1 tablet (2,000 Units total) by mouth in the morning. DULoxetine (CYMBALTA) 60 mg capsule Take 1 capsule (60 mg total) by mouth in the morning. ezetimibe (ZETIA) 10 mg tablet Take 1 tablet (10 mg total) by mouth in the morning. ferrous sulfate 325 (65 FE) mg tablet Take 1 tablet (325 mg total) by mouth daily with breakfast. flecainide (TAMBOCOR) 100 mg tablet Take 1 tablet (100 mg total) by mouth every 12 (twelve) hours. oxybutynin XL (DITROPAN XL) 15 mg 24 hr tablet take one tablet by mouth every morning 90 tablet 0 rosuvastatin (CRESTOR) 5 mg tablet Take 1 tablet (5 mg total) by mouth in the evening. traZODone (DESYREL) 50 mg tablet Take 1 tablet (50 mg total) by mouth nightly. vit A/vit C/vit E/zinc/copper (PRESERVISION AREDS ORAL) Take 1 tablet by mouth nightly. warfarin (COUMADIN) 5 mg tablet Take 0.5-1 tablets (2.5-5 mg total) by mouth in the evening. or as directed by Natalie BAXTER (Medication Therapy Management). (Patient taking differently: Take 0.5-1 tablets (2.5-5 mg total) by mouth in the evening. or as directed by Natalie BAXTER (Medication Therapy Management) 2.5 mg Thursday, Thursday, ; Take 5mg Thursday, Thursday, Thursday, and Thursday. .) 90 tablet 1 [DISCONTINUED] aspirin 81 mg Take 81 mg by mouth daily. To stop 5 to 7 days preop ALLERGIES: Allergies Allergen Reactions Cephalexin Shortness Of Breath, Swelling and Rash Tolerates ceftriaxone Dicloxacillin Sodium Shortness Of Breath, Swelling and Rash Tolerates ceftriaxone Lipitor [Atorvastatin] muscle cramps Nifedipine Hypotension Other reaction(s): Allergy: EDEMA; Penicillin G Potassium Hives Penicillins Hives Tolerates ceftriaxone PHYSICAL EXAMINATION: Vital signs: BP 112/59 Pulse 72 Temp 36.5 C (97.7 F) (Oral) Resp 14 Ht 165.1 cm (5' 5 ) Wt 99.8 kg (220 lb) SpO2 92% BMI 36.61 kg/m General appearance: awake, alert, oriented, no acute distress HEENT: supple, area on left side of nose CV: RRR, no murmurs PULM: CTAB, no wheezing ABD: soft, NT/ND NEURO: Negative for focal deficit, weakness or loss of sensation. EXT: No deformities or skin discoloration. No clubbing, cyanosis, or edema. Left leg bakari wrap- clean and dry LABORATORY DATA: Lab Results Component Value Date WBC 6.9 01/16/2025 WBC 7.8 01/15/2025 WBC 11.3 (H) 01/14/2025 HGB 7.6 (L) 01/16/2025 HGB 7.2 (L) 01/16/2025 HGB 6.6 (LL) 01/15/2025 HCT 22.6 (L) 01/16/2025 HCT 21.4 (L) 01/16/2025 HCT 17.8 (L) 01/15/2025 MCV 92 01/16/2025 MCV 96 01/15/2025 MCV 95 01/14/2025 PLT 132 (L) 01/16/2025 PLT 138 (L) 01/15/2025 PLT 166 01/14/2025 Lab Results Component Value Date GLU 81 01/16/2025 CALCIUM 8.5 01/16/2025 SODIUM 140 01/16/2025 K 4.5 01/16/2025 CO2 24 01/16/2025 BUN 44 (H) 01/16/2025 CREATININE 1.70 (H) 01/16/2025 GFR 41 (L) 03/24/2022 GFR 49 (L) 03/24/2022 Lab Results Component Value Date ALT 9 11/17/2024 AST 14 11/17/2024 ALKPHOS 60 11/17/2024 Lab Results Component Value Date INR 3.6 (H) 01/16/2025 INR 1.6 (H) 01/15/2025 INR 1.3 (H) 01/14/2025 PROTIME 40.8 (H) 01/16/2025 PROTIME 18.6 (H) 01/15/2025 PROTIME 14.8 (H) 01/14/2025 Lab Results Component Value Date FERRITIN 101 01/14/2025 FERRITIN 56 11/30/2023 FERRITIN 60 11/17/2022 IRON 10 (L) 01/14/2025 IRON 100 11/30/2023 IRON 70 11/17/2022 TIBC 235 (L) 01/14/2025 TIBC 340 11/30/2023 TIBC 377 11/17/2022 IRONSAT 4 (L) 01/14/2025 IRONSAT 29 11/30/2023 IRONSAT 19 11/17/2022 [id number] >1,500 (H) 01/14/2025 [id number] >1,500 (H) 11/30/2023 [id number] >1,500 (H) 11/17/2022 FOLATE 22.6 01/14/2025 FOLATE 12.1 11/30/2023 FOLATE 16.1 11/17/2022 RETICULOCYTE 2.2 01/15/2025 Lab Results Component Value Date TSH 1.26 10/06/2022 T4 0.88 10/06/2022 Lab Results Component Value Date LDH 167 12/28/2018 FIBRINOGEN 370 06/03/2024 ASSESSMENT/RECOMMENDATIONS: Acute blood loss/anemia of chronic disease 10/06/2022- 1 unit of blood 06/02/2024-hemoglobin 12.6 06/03/2024-hemoglobin 7.8 06/05/2024- venofer 100 mg 11/16/2024-hemoglobin 13.2 11/17/2024-hemoglobin 11.6- 2 units of FFP 01/13/2025-hemoglobin 10.8- vit k given ORIF left proximal tibia 01/14/2025-coumadin given 01/15/2025-hemoglobin 6.0- started retacrit, coumadin given 2 units of PRBC Currently, patient noted to have some degree of iron deficiency giving her iron sat is less than 20. Her reticulocyte count currently 2.2, this is under productive for her degree of anemia. Likely related to her CKD and acute inflammation/issues. Discussed REY therapy with the patient to help avoid blood transfusions. Plan - Retacrit 40 k daily x3- if still admitted recheck retic 01/18 Agree with aundrea iv- pt has history of bariatric surgery Check zinc, and copper Take multivitamin daily Monitor for s/s of bleeding Will continue to follow along outpt- she may need another surgery and wants to optimize her blood prior -plan for lab recheck in 4 weeks Encourage anemia tolerance when patient is hemodynamically stable and moderate symptoms of anemia -transfusion decision should be based on patient's assessment and not be based on laboratory parameters alone Blood products increase risk of infection, sepsis, hospital length of stay, impaired wound healing, TRIM, TRLI, Ischemic events, bleeding, thrombosis- and more Treatment aimed at control of underlying chronic condition Energy conservation with frequent rest periods Blood conservation is an essential part of blood management so we recommend limiting phlebotomy (especially the use of daily labs) to a as needed for medical decision making only. Can use Secure [employer] messaging anytime during business hours Thursday-Thursday 8 am to 5 pm. Irlanda Miller NP Benign Hematology/ Patient Blood Management/Bloodless Medicine Office [phone] ALEXANDRU Damon 01/16/25 [address] [employer] Work Phone: 01-16-2025 Consult note Associated Order (s): CONSULT BENIGN HEMATOLOGY AND BLOOD MANAGEMENT Benign Hematology/ Patient Blood Management Consultation: Dr. Dov GANT Patient ID: Keila Allen, 69 y.o. female Requested by: No ref. provider found PCP: ALEXANDRU ALLEN : 1955 REASON FOR CONSULTATION: Anemia and hgb optimization CHIEF COMPLAINT: Chief Complaint Patient presents with Fall Leg Pain HISTORY OF PRESENT ILLNESS: Keila Allen is a 69 y.o. female with history of atrial fibrillation on Coumadin, asthma, CKD, depression, frequent falls, GI hemorrhage, hypertension, sleep apnea, status post bariatric surgery who presented to the hospital with fall/fracture. Benign Hematology/ Blood Management is now consulted due to hemoglobin optimization/anemia. Patient is alert oriented able to answer all my questions at this time. Patient is sitting up in chair. Denies any lightheadedness or dizziness. Denies any shortness of breath. Denies any nausea or vomiting. Denies any issues with nose bleeds. Positive for increased bruising. States she has not had any increased bleeding from her wound PAST HEMATOLOGY / VASCULAR HISTORY: REVIEW OF SYSTEMS: Complete 10-point ROS is negative except as mentioned in HPI. PAST MEDICAL HISTORY: Past Medical History: Diagnosis Date Anemia iron deficiency Arthritis Asthma Atrial fibrillation Atrial fibrillation (HCC) [I48.91] 07/17/2017 Bilateral shoulder pain 05/04/2019 Bladder disorder 11/10/2016 Cataract Cervical disc disorder CKD (chronic kidney disease) renal insuff/follows with Dr Camacho never on dialysis Dental disease chipped Depression Depression with anxiety 10/27/2016 Disc disorder cervical, thoracic, lumbosacral Dislocation of left knee, initial encounter 11/16/2024 Dry eye syndrome 07/28/2016 Edema legs Falls frequently Gastrointestinal hemorrhage 10/05/2022 Added automatically from request for surgery [id number] GERD (gastroesophageal reflux disease) Giant cell arteritis ([facility]) 07/20/2018 Hyperlipidemia Hypertension Low back pain Lumbar disc disorder LVH (left ventricular hypertrophy) AND DIASTOLIC DYSFUNCTION Lymphedema Macular drusen, bilateral 07/28/2016 Migraine Mononucleosis Neuropathy Obesity h/o bariatric surgery 01/2018, lost >100# Osteoarthritis of cervical spine 02/24/2019 Posterior vitreous detachment of right eye 03/03/2019 Presbyopia 03/18/2019 Prolonged Q-T interval on ECG 12/2018 Rotator cuff arthropathy of right shoulder 09/16/2019 Added automatically from request for surgery [id number] Sleep apnea uses c pap/states doesn`t use every night Status post bariatric surgery 02/24/2019 Thoracic disc disorder Tinnitus Urinary incontinence Urinary urgency UTI (urinary tract infection) 03/18/2022 Visual impairment glasses Vitreous floaters of right eye 03/03/2019 Vitreous syneresis of left eye 03/03/2019 White matter abnormality on MRI of brain 02/24/2019 PAST SURGICAL HISTORY: Past Surgical History: Procedure Laterality Date BIOPSY ARTERY TEMPORAL Bilateral 07/28/2018 Performed by Jany Mesa MD at [facility] BIOPSY MUSCLE LOWER EXTREMITY Right 04/05/2019 Performed by Zaida Blue MD at [facility] COLONOSCOPY Left Lateral 10/07/2022 Performed by Gissell Ye MD at [facility] DILATION AND CURETTAGE OF UTERUS 2016 EGD Left Lateral 10/07/2022 Performed by Gissell Ye MD at [facility] GALLBLADDER SURGERY HYSTEROSCOPY 2016 LAPAROSCOPIC SLEEVE GASTRECTOMY/ CLOSURE DIAPHRAGMATIC CRUA N/A 07/28/2018 Performed by Zaida Gil MD at [facility] NASAL SEPTUM SURGERY OPEN REDUCTION INTERNAL FIXATION FEMUR Left 06/03/2024 Performed by Rafat Sepulveda MD at [facility] OPEN REDUCTION INTERNAL FIXATION TIBIA WITH STRESS EXAMINATION Left 01/13/2025 Performed by Renan Delaney MD at [facility] REPLACEMENT TOTAL KNEE Bilateral 09/2014 REVISION TOTAL JOINT KNEE POLY EXCHANGE Left 11/17/2024 Performed by Nafisa Navarro MD at [facility] TONSILLECTOMY x 2 as a child and second time in her 40`s PAST FAMILY HISTORY: Family History Adopted: Yes Problem Relation Age of Onset Cancer Mother Diabetes Mother SOCIAL HISTORY: Lives in home. Social History Socioeconomic History Marital status: Single [...] Defer Comment: not reviewd at this visit Other Topics Concern Not on file Social History Narrative Not on file Social Drivers of Health Financial Resource Strain: Medium Risk (01/13/2025) Overall Financial Resource Strain (CARDIA) Difficulty of Paying Living Expenses: Somewhat hard Food Insecurity: No Food Insecurity (01/15/2025) Hunger Screening Food Insecurity - Worry: Never True Food Insecurity - Inability: Never True Recent Concern: Food Insecurity - Food Insecurity Present (01/13/2025) Hunger Screening Food Insecurity - Worry: Sometimes True Food Insecurity - Inability: Sometimes True Transportation Needs: No Transportation Needs (01/13/2025) PRAPARE - Transportation Lack of Transportation (Medical): No Lack of Transportation (Non-Medical): No Physical Activity: Inactive (08/09/2023) Exercise Vital Sign Days of Exercise per Week: 0 days Minutes of Exercise per Session: 0 min Stress: No Stress Concern Present (08/09/2023) [employer] - Occupational Stress Questionnaire [...] Marital Status: Interpersonal Safety: Not At Risk (01/13/2025) Humiliation, Afraid, Rape, and Kick questionnaire Fear of Current or Ex-Partner: No Emotionally Abused: No Physically Abused: No Sexually Abused: No Housing Instability: Low Risk (01/13/2025) Housing Instability Housing Instability: No MEDICATIONS: No current facility-administered medications on file prior to encounter. Current Outpatient Medications on File Prior to Encounter Medication Sig Dispense Refill calcium citrate (CALCITRATE) 200 mg (950 mg) tablet Take 2 tablets (400 mg total) by mouth in the morning and 2 tablets (400 mg total) at noon and 2 tablets (400 mg total) in the evening. Take with meals. cholecalciferol, vitamin D3, 2,000 units tablet Take 1 tablet (2,000 Units total) by mouth in the morning. DULoxetine (CYMBALTA) 60 mg capsule Take 1 capsule (60 mg total) by mouth in the morning. ezetimibe (ZETIA) 10 mg tablet Take 1 tablet (10 mg total) by mouth in the morning. ferrous sulfate 325 (65 FE) mg tablet Take 1 tablet (325 mg total) by mouth daily with breakfast. flecainide (TAMBOCOR) 100 mg tablet Take 1 tablet (100 mg total) by mouth every 12 (twelve) hours. oxybutynin XL (DITROPAN XL) 15 mg 24 hr tablet take one tablet by mouth every morning 90 tablet 0 rosuvastatin (CRESTOR) 5 mg tablet Take 1 tablet (5 mg total) by mouth in the evening. traZODone (DESYREL) 50 mg tablet Take 1 tablet (50 mg total) by mouth nightly. vit A/vit C/vit E/zinc/copper (PRESERVISION AREDS ORAL) Take 1 tablet by mouth nightly. warfarin (COUMADIN) 5 mg tablet Take 0.5-1 tablets (2.5-5 mg total) by mouth in the evening. or as directed by Natalie BAXTER (Medication Therapy Management). (Patient taking differently: Take 0.5-1 tablets (2.5-5 mg total) by mouth in the evening. or as directed by Natalie BAXTER (Medication Therapy Management) 2.5 mg Thursday, Thursday, ; Take 5mg Thursday, Thursday, Thursday, and Thursday. .) 90 tablet 1 [DISCONTINUED] aspirin 81 mg Take 81 mg by mouth daily. To stop 5 to 7 days preop ALLERGIES: Allergies Allergen Reactions Cephalexin Shortness Of Breath, Swelling and Rash Tolerates ceftriaxone Dicloxacillin Sodium Shortness Of Breath, Swelling and Rash Tolerates ceftriaxone Lipitor [Atorvastatin] muscle cramps Nifedipine Hypotension Other reaction(s): Allergy: EDEMA; Penicillin G Potassium Hives Penicillins Hives Tolerates ceftriaxone PHYSICAL EXAMINATION: Vital signs: BP 112/59 Pulse 72 Temp 36.5 C (97.7 F) (Oral) Resp 14 Ht 165.1 cm (5' 5 ) Wt 99.8 kg (220 lb) SpO2 92% BMI 36.61 kg/m General appearance: awake, alert, oriented, no acute distress HEENT: supple, area on left side of nose CV: RRR, no murmurs PULM: CTAB, no wheezing ABD: soft, NT/ND NEURO: Negative for focal deficit, weakness or loss of sensation. EXT: No deformities or skin discoloration. No clubbing, cyanosis, or edema. Left leg bakari wrap- clean and dry LABORATORY DATA: Lab Results Component Value Date WBC 6.9 01/16/2025 WBC 7.8 01/15/2025 WBC 11.3 (H) 01/14/2025 HGB 7.6 (L) 01/16/2025 HGB 7.2 (L) 01/16/2025 HGB 6.6 (LL) 01/15/2025 HCT 22.6 (L) 01/16/2025 HCT 21.4 (L) 01/16/2025 HCT 17.8 (L) 01/15/2025 MCV 92 01/16/2025 MCV 96 01/15/2025 MCV 95 01/14/2025 PLT 132 (L) 01/16/2025 PLT 138 (L) 01/15/2025 PLT 166 01/14/2025 Lab Results Component Value Date GLU 81 01/16/2025 CALCIUM 8.5 01/16/2025 SODIUM 140 01/16/2025 K 4.5 01/16/2025 CO2 24 01/16/2025 BUN 44 (H) 01/16/2025 CREATININE 1.70 (H) 01/16/2025 GFR 41 (L) 03/24/2022 GFR 49 (L) 03/24/2022 Lab Results Component Value Date ALT 9 11/17/2024 AST 14 11/17/2024 ALKPHOS 60 11/17/2024 Lab Results Component Value Date INR 3.6 (H) 01/16/2025 INR 1.6 (H) 01/15/2025 INR 1.3 (H) 01/14/2025 PROTIME 40.8 (H) 01/16/2025 PROTIME 18.6 (H) 01/15/2025 PROTIME 14.8 (H) 01/14/2025 Lab Results Component Value Date FERRITIN 101 01/14/2025 FERRITIN 56 11/30/2023 FERRITIN 60 11/17/2022 IRON 10 (L) 01/14/2025 IRON 100 11/30/2023 IRON 70 11/17/2022 TIBC 235 (L) 01/14/2025 TIBC 340 11/30/2023 TIBC 377 11/17/2022 IRONSAT 4 (L) 01/14/2025 IRONSAT 29 11/30/2023 IRONSAT 19 11/17/2022 [id number] >1,500 (H) 01/14/2025 [id number] >1,500 (H) 11/30/2023 [id number] >1,500 (H) 11/17/2022 FOLATE 22.6 01/14/2025 FOLATE 12.1 11/30/2023 FOLATE 16.1 11/17/2022 RETICULOCYTE 2.2 01/15/2025 Lab Results Component Value Date TSH 1.26 10/06/2022 T4 0.88 10/06/2022 Lab Results Component Value Date LDH 167 12/28/2018 FIBRINOGEN 370 06/03/2024 ASSESSMENT/RECOMMENDATIONS: Acute blood loss/anemia of chronic disease 10/06/2022- 1 unit of blood 06/02/2024-hemoglobin 12.6 06/03/2024-hemoglobin 7.8 06/05/2024- venofer 100 mg 11/16/2024-hemoglobin 13.2 11/17/2024-hemoglobin 11.6- 2 units of FFP 01/13/2025-hemoglobin 10.8- vit k given ORIF left proximal tibia 01/14/2025-coumadin given 01/15/2025-hemoglobin 6.0- started retacrit, coumadin given 2 units of PRBC Currently, patient noted to have some degree of iron deficiency giving her iron sat is less than 20. Her reticulocyte count currently 2.2, this is under productive for her degree of anemia. Likely related to her CKD and acute inflammation/issues. Discussed REY therapy with the patient to help avoid blood transfusions. Plan - Retacrit 40 k daily x3- if still admitted recheck retic 01/18 Agree with venofer iv- pt has history of bariatric surgery Check zinc, and copper Take multivitamin daily Monitor for s/s of bleeding Will continue to follow along outpt- she may need another surgery and wants to optimize her blood prior -plan for lab recheck in 4 weeks Encourage anemia tolerance when patient is hemodynamically stable and moderate symptoms of anemia -transfusion decision should be based on patient's assessment and not be based on laboratory parameters alone Blood products increase risk of infection, sepsis, hospital length of stay, impaired wound healing, TRIM, TRLI, Ischemic events, bleeding, thrombosis- and more Treatment aimed at control of underlying chronic condition Energy conservation with frequent rest periods Blood conservation is an essential part of blood management so we recommend limiting phlebotomy (especially the use of daily labs) to a as needed for medical decision making only. Can use [employer] messaging anytime during business hours Thursday-Thursday 8 am to 5 pm. Irlanda Miller NP Benign Hematology/ Patient Blood Management/Bloodless Medicine Office [phone] Irlanda Miller APRN-DISTRICT SERVICE MANAGER 01/16/25 1340 Images from the original note were not included. [facility] [address] [place] [address] HISTORY & PHYSICAL / CONSULT NOTE Keila Allen PCP: ALEXANDRU ALLEN Date of Admission: 01/12/2025 Date of Consultation: 01/13/2025 1:28 AM Consult for preoperative cardiovascular risk assessment SUBJECTIVE History of Present Illness: Keila Allen is a 69 y.o. female with history of chronic diastolic heart failure, paroxysmal atrial fibrillation, hypertension, hyperlipidemia, CKD, YUNG, mild carotid disease. Patient presented to the ED today after a fall. Stated that he was walking down a ramp with her friend and suddenly found herself on the ground, unexplained loss of balance. Denied any dizziness, syncope or presyncope. Denied chest pain or shortness of breath. Denied orthopnea. Reports having chronic lymphedema which is stable. On arrival to the hospital vitals within normal limits. EKG showed patient is sinus/ectopic rhythm, IVCD, PVC. Noted to have IVCD in previous EKG. Blood work showed INR 2.6. Creatinine 2.1. Chest x-ray negative. Imaging study showing evidence of fracture in the distal left femur around surgical fixation site. At the time patient was seen was lying in bed in no acute distress. No active chest pain shortness of breath. Previous Medical History: Past Medical History: Diagnosis Date Anemia iron deficiency Arthritis Asthma Atrial fibrillation Atrial fibrillation (HCC) [I48.91] Bilateral shoulder pain Bladder disorder Cataract Cervical disc disorder CKD (chronic kidney disease) renal insuff/follows with Dr Camacho never on dialysis Dental disease chipped Depression Depression with anxiety Disc disorder cervical, thoracic, lumbosacral Dislocation of left knee, initial encounter 11/16/2024 Dry eye syndrome Edema legs Falls frequently Gastrointestinal hemorrhage Added automatically from request for surgery [id number] GERD (gastroesophageal reflux disease) Giant cell arteritis ([facility]) Hyperlipidemia Hypertension Low back pain Lumbar disc disorder LVH (left ventricular hypertrophy) AND DIASTOLIC DYSFUNCTION Lymphedema Macular drusen, bilateral Migraine Mononucleosis Neuropathy Obesity h/o bariatric surgery 01/2018, lost >100# Osteoarthritis of cervical spine Posterior vitreous detachment of right eye Presbyopia Prolonged Q-T interval on ECG 12/2018 Rotator cuff arthropathy of right shoulder Added automatically from request for surgery [id number] Sleep apnea uses c pap/states doesn`t use every night Status post bariatric surgery Thoracic disc disorder Tinnitus Urinary incontinence Urinary urgency UTI (urinary tract infection) Visual impairment glasses Vitreous floaters of right eye Vitreous syneresis of left eye White matter abnormality on MRI of brain Previous Surgical History: Past Surgical History: Procedure Laterality Date BIOPSY ARTERY TEMPORAL Bilateral 07/28/2018 Performed by Jany Mesa MD at [facility] BIOPSY MUSCLE LOWER EXTREMITY Right 04/05/2019 Performed by Zaida Blue MD at [facility] COLONOSCOPY Left Lateral 10/07/2022 Performed by Gissell Ye MD at [facility] DILATION AND CURETTAGE OF UTERUS 2016 EGD Left Lateral 10/07/2022 Performed by Gissell Ye MD at [facility] GALLBLADDER SURGERY 1979`s HYSTEROSCOPY 2015 LAPAROSCOPIC SLEEVE GASTRECTOMY/ CLOSURE DIAPHRAGMATIC CRUA N/A 07/28/2018 Performed by Zaida Gil MD at [facility] NASAL SEPTUM SURGERY 1989` OPEN REDUCTION INTERNAL FIXATION FEMUR Left 06/03/2024 Performed by Rafat Sepulveda MD at [facility] REPLACEMENT TOTAL KNEE Bilateral 09/2014 REVISION TOTAL JOINT KNEE POLY EXCHANGE Left 11/17/2024 Performed by Nafisa Navarro MD at [facility] TONSILLECTOMY x 2 as a child and second time in her 40`s Allergies: Allergies Allergen Reactions Cephalexin Shortness Of Breath, Swelling and Rash Tolerates ceftriaxone Dicloxacillin Sodium Shortness Of Breath, Swelling and Rash Tolerates ceftriaxone Lipitor [Atorvastatin] muscle cramps Nifedipine Hypotension Other reaction(s): Allergy: EDEMA; Penicillin G Potassium Hives Penicillins Hives Tolerates ceftriaxone Hospital Meds: Current Facility-Administered Medications Medication Dose Route Frequency Provider Last Rate Last Admin acetaminophen (TYLENOL EXTRA STRENGTH) tablet 1,000 mg 1,000 mg oral Q8H Richy Montoya DO calcium carbonate-vitamin D3 (OSCAL 500 + D) 500 mg (1,250 mg) - 200 units per tablet 1 tablet 1 tablet oral BID with meals Caren Iglesias MD dextrose (GLUTOSE) 40 % gel 15 g 15 g oral PRN Irchy M Lindsay, DO dextrose 5 % (D5W) infusion 100 mL/hr intravenous Continuous PRN , DO dextrose 50 % in water (D50W) 50% solution 25 mL 25 mL intravenous PRN , DO glucagon HCL injection 1 mg 1 mg intramuscular PRN , DO ondansetron (PF) (ZOFRAN) injection 4 mg 4 mg intravenous Q8H PRN , DO oxyCODONE (ROXICODONE) immediate release tablet 10 mg 10 mg oral Q4H PRN , DO oxyCODONE (ROXICODONE) immediate release tablet 5 mg 5 mg oral Q4H PRN , DO phytonadione (Vitamin K) (AQUA-MEPHYTON) 5 mg in sodium chloride 0.9 % 50 mL IVPB 5 mg intravenous Once , DO sennosides-docusate sodium (SENOKOT-S) 8.6-50 mg 2 tablet 2 tablet oral Nightly , DO sodium chloride 0.9 % infusion 20 mL/hr intravenous Continuous PRN Caren Iglesias MD Current Outpatient Medications Medication Sig Dispense Refill acetaminophen (TYLENOL EXTRA STRENGTH) 500 mg tablet Take 2 tablets (1,000 mg total) by mouth every 8 (eight) hours. 30 tablet 0 amLODIPine (NORVASC) 10 mg tablet Take 1 tablet (10 mg total) by mouth daily with breakfast. bisacodyL (DULCOLAX) 10 mg suppository Insert 1 suppository (10 mg total) into the rectum daily as needed for constipation. 12 suppository 0 calcium citrate (CALCITRATE) 200 mg (950 mg) tablet Take 2 tablets (400 mg total) by mouth in the morning and 2 tablets (400 mg total) at noon and 2 tablets (400 mg total) in the evening. Take with meals. cholecalciferol, vitamin D3, 2,000 units tablet Take 1 tablet (2,000 Units total) by mouth in the morning. cyanocobalamin, vitamin B-12, (VITAMIN B-12) 1,000 mcg tablet extended release Take 1 tablet (1 mg total) by mouth in the morning. DULoxetine (CYMBALTA) 60 mg capsule Take 1 capsule (60 mg total) by mouth in the morning. ezetimibe (ZETIA) 10 mg tablet Take 1 tablet (10 mg total) by mouth in the morning. ferrous sulfate 325 (65 FE) mg tablet Take 1 tablet (325 mg total) by mouth daily with breakfast. flecainide (TAMBOCOR) 100 mg tablet Take 1 tablet (100 mg total) by mouth every 12 (twelve) hours. methocarbamoL (ROBAXIN) 500 mg tablet Take 1 tablet (500 mg total) by mouth in the morning and 1 tablet (500 mg total) at noon and 1 tablet (500 mg total) in the evening and 1 tablet (500 mg total) before bedtime. 28 tablet 0 oxybutynin XL (DITROPAN XL) 15 mg 24 hr tablet take one tablet by mouth every morning 90 tablet 0 pantoprazole (PROTONIX) 40 mg EC tablet Take 1 tablet (40 mg total) by mouth in the morning. 90 tablet 3 rosuvastatin (CRESTOR) 5 mg tablet Take 1 tablet (5 mg total) by mouth in the evening. sennosides-docusate sodium (SENOKOT-S) 8.6-50 mg Take 2 tablets by mouth nightly. topiramate (TOPAMAX) 50 mg tablet TAKE ONE TABLET BY MOUTH TWICE A DAY 180 tablet 0 vit A/vit C/vit E/zinc/copper (PRESERVISION AREDS ORAL) Take 1 tablet by mouth nightly. warfarin (COUMADIN) 5 mg tablet Take 0.5-1 tablets (2.5-5 mg total) by mouth in the evening. or as directed by Natalie BAXTER (Medication Therapy Management). 90 tablet 1 Home Meds: Prior to Admission medications Medication Sig Start Date End Date Taking? Authorizing Provider acetaminophen (TYLENOL EXTRA STRENGTH) 500 mg tablet Take 2 tablets (1,000 mg total) by mouth every 8 (eight) hours. 06/10/24 Nurys Odell MD amLODIPine (NORVASC) 10 mg tablet Take 1 tablet (10 mg total) by mouth daily with breakfast. Not In System Ref Prov bisacodyL (DULCOLAX) 10 mg suppository Insert 1 suppository (10 mg total) into the rectum daily as needed for constipation. 11/22/24 Vega Rivera MD calcium citrate (CALCITRATE) 200 mg (950 mg) tablet Take 2 tablets (400 mg total) by mouth in the morning and 2 tablets (400 mg total) at noon and 2 tablets (400 mg total) in the evening. Take with meals. 06/10/24 Nurys Odell MD cholecalciferol, vitamin D3, 2,000 units tablet Take 1 tablet (2,000 Units total) by mouth in the morning. 06/10/24 Nurys Odell MD cyanocobalamin, vitamin B-12, (VITAMIN B-12) 1,000 mcg tablet extended release Take 1 tablet (1 mg total) by mouth in the morning. Not In System Ref Prov DULoxetine (CYMBALTA) 60 mg capsule Take 1 capsule (60 mg total) by mouth in the morning. Not In System Ref Prov ezetimibe (ZETIA) 10 mg tablet Take 1 tablet (10 mg total) by mouth in the morning. Not In System Ref Prov ferrous sulfate 325 (65 FE) mg tablet Take 1 tablet (325 mg total) by mouth daily with breakfast. Not In System Ref Prov flecainide (TAMBOCOR) 100 mg tablet Take 1 tablet (100 mg total) by mouth every 12 (twelve) hours. 06/23/16 Not In System Ref Prov methocarbamoL (ROBAXIN) 500 mg tablet Take 1 tablet (500 mg total) by mouth in the morning and 1 tablet (500 mg total) at noon and 1 tablet (500 mg total) in the evening and 1 tablet (500 mg total) before bedtime. 06/10/24 Nurys Odell MD oxybutynin XL (DITROPAN XL) 15 mg 24 hr tablet take one tablet by mouth every morning 06/13/24 Avelina Dial APRN-KAREN pantoprazole (PROTONIX) 40 mg EC tablet Take 1 tablet (40 mg total) by mouth in the morning. 12/18/23 Nuria Rojas PA-C rosuvastatin (CRESTOR) 5 mg tablet Take 1 tablet (5 mg total) by mouth in the evening. 12/15/22 Not In System Ref Prov sennosides-docusate sodium (SENOKOT-S) 8.6-50 mg Take 2 tablets by mouth nightly. 06/10/24 Nurys Odell MD topiramate (TOPAMAX) 50 mg tablet TAKE ONE TABLET BY MOUTH TWICE A DAY 06/11/22 Javan Julien MD vit A/vit C/vit E/zinc/copper (PRESERVISION AREDS ORAL) Take 1 tablet by mouth nightly. Not In System Ref Prov warfarin (COUMADIN) 5 mg tablet Take 0.5-1 tablets (2.5-5 mg total) by mouth in the evening. [facility] ([facility] 02/23/24 Georgina Lockett [facility] aspirin 81 mg Take 81 mg by mouth daily. To stop 5 to 7 days preop 03/19/22 Not In System Ref Prov Social History: TOBACCO: reports that she has never smoked. She has never used smokeless tobacco. ETOH: reports current alcohol use of about 1.0 standard drink of alcohol per week. DRUGS: reports no history of drug use. OCCUPATION: Family History: Family History Adopted: Yes Problem Relation Age of Onset Cancer Mother Diabetes Mother Review of Systems: Constitutional: there has been no unanticipated weight loss, no change in energy level, sleep pattern, or activity level. Eyes: No visual changes or diplopia, no scleral icterus. ENT: No Headaches, hearing loss or vertigo. No sore throat Cardiovascular: See HPI Respiratory: No cough or wheezing, no sputum production, no hematemesis. Gastrointestinal: No abdominal pain, no constipation, no diarrhea, no hematochezia, no melena. Genitourinary: No dysuria, trouble voiding, or hematuria Musculoskeletal: No gait disturbance, weakness or joint complaints Integumentary: No rash or pruritis Neurological: No headache, focal muscle weakness, focal numbness or tingling. Hematologic/Lymphatic: No abnormal bruising or bleeding, blood clots. Allergic/Immunologic: No nasal congestion or hives OBJECTIVE LAST LABS: CBC: BMP: Results from last 7 days Lab Units 01/12/25 1804 SODIUM mmol/L 138 POTASSIUM mmol/L 3.8 CHLORIDE mmol/L 108 CO2 mmol/L 19* BUN mg/dL 57* CREATININE mg/dL 2.13* CALCIUM mg/dL 8.7 PT/INR: Results from last 7 days Lab Units 01/12/25 1804 01/10/25 0000 PROTIME sec 29.3* -- INR 2.6* 2.5* APTT: MAG: D Dimer: Troponin I ProBNP Lipid Panel: Lab Results Component Value Date CHOL 142 (L) 11/30/2023 TRIG 127 11/30/2023 HDL 75 11/30/2023 Liver Panel: No results found for: ALB HgA1C: Lab Results Component Value Date HGBA1C 4.9 10/06/2022 ABG: RADIOLOGY: X-ray chest 1 view Result Date: 01/12/2025 CHEST 1 VIEW HISTORY: Preop COMPARISON: 06/02/2024 FINDINGS: No focal airspace disease, pulmonary edema, pleural effusions, or pneumothorax. Normal cardiomediastinal silhouette. IMPRESSION: No acute cardiopulmonary disease. Finalized by Isaías Sykes MD on 01/12/2025 10:[address] knee left without contrast Result Date: 01/12/2025 CT KNEE LT WO CONT CLINICAL INFORMATION: Tibia fracture, eval component, pre op planning COMPARISON: None. PROCEDURE: Routine CT of the left knee was obtained without contrast. Sagittal and coronal reformats were obtained from the axial data. Automated exposure control was utilized. All CT scans at this facility use dose modulation, iterative reconstruction, and/or weight based dosing when appropriate to reduce radiation dose to as low as reasonably achievable. FINDINGS: Extensive edema and stranding present in the soft tissues. Lipohemarthrosis is suspected. Lateral soft tissue swelling is noted. Patella is intact. Surgical fixation of the femur. Nondisplaced transversely oriented fracture of the proximal tibia involving the distal tip of the tibial stem of the knee prosthesis. There is a nondisplaced fracture of the proximal fibula. There is slight angulation of the tibial fracture. IMPRESSION: * Left knee arthroplasty with proximal tibial periprosthetic fracture as well as fibular fracture. * Edema and stranding in the soft tissues, cannot exclude lipohemarthrosis. * Please see above for further details. Finalized by Roel Nino MD on 01/12/2025 9:40 PM X-ray clavicle left Result Date: 01/12/2025 XR CLAVICLE LT CLINICAL INFORMATION: Eval for fx COMPARISON: None. IMPRESSION: * No fracture. Moderate degenerative changes. Finalized by Roel Nino MD on 01/12/2025 8:53 PM X-ray shoulder left minimum 2 views Result Date: 01/12/2025 CLINICAL INFORMATION: Pain, rule out fracture TECHNIQUE: XR SHOULDER LT MIN 2 VWS 3 views left shoulder were obtained. AC joint degenerative changes noted. Humeral head is high riding. No fracture appreciated. No dislocation. IMPRESSION: AC joint degenerative changes and probable chronic rotator cuff tear. Finalized by Sathya Carroll MD on 01/12/2025 8:26 PM X-ray tibia fibula left minimum 2 views Result Date: 01/12/2025 XR TIBIA FIBULA LT MIN 2 VWS CLINICAL INFORMATION: s/p fall. Leg pain. COMPARISON: 05/17/2021. IMPRESSION: * Transverse fracture of the proximal tibia near the stem of the tibial component of the patient's knee prosthesis. Knee radiographs are recommended. * Cannot exclude proximal fibular fracture. * Surgical fixation of the distal femur with fracture in this region again noted. * Osteopenia and degenerative changes present. * Soft tissue swelling. Finalized by Roel Nino MD on 01/12/2025 6:57 PM X-ray femur left 2+ views Result Date: 01/12/2025 XR FEMUR LT 2+ VIEWS CLINICAL INFORMATION: s/p fall. Leg pain. COMPARISON: 11/15/2024. IMPRESSION: * Soft tissue swelling overlying the proximal femur. Rounded density measuring 8.1 cm, hematoma or other process is not excluded. * Surgical fixation of the distal femur with anatomic alignment of fracture, knee arthroplasty present. No change in alignment. Finalized by Roel Nino MD on 01/12/2025 6:56 PM X-ray hip left 2-3 views with or without pelvis Result Date: 01/12/2025 CLINICAL INFORMATION: s/p fall TECHNIQUE: XR HIP LT 2-3 VIEWS W OR WO PELVIS 3 views left hip were obtained. The exam is limited. Femoral neck appears intact. No intratrochanteric abnormality noted to within the limits of this exam. Pelvic ring unremarkable. Crosstable lateral view is nondiagnostic. IMPRESSION: No acute findings. Finalized by Sathya Carroll MD on 01/12/2025 6:[address] brain without contrast Result Date: 01/12/2025 CLINICAL INFORMATION: s/p fall with head injury COMPARISON: 10/05/2022. PROCEDURE: Routine CT Head obtained without contrast. All CT scans at this facility use dose modulation, iterative reconstruction, and/or weight based dosing when appropriate to reduce radiation dose to as low as reasonably achievable. FINDINGS: No acute intracranial hemorrhage. No mass effect or midline shift. No extra-axial fluid collections. The ventricles and sulci are prominent consistent with global atrophy. Low-attenuation areas identified in the periventricular white matter consistent with microvascular ischemia. No depressed calvarial fracture. IMPRESSION: * No acute intracranial findings by CT. Finalized by Roel Nino MD on 01/12/2025 6:32 PM PHYSICAL EXAM Admission Weight: No intake/output data recorded. Weight change: Wt Readings from Last 3 Encounters: 12/14/24 95.3 kg (210 lb 1.6 oz) 11/29/24 95.3 kg (210 lb 1.6 oz) 11/17/24 95.3 kg (210 lb 1.6 oz) Vitals: Vitals: 01/12/25 2130 01/12/25 2200 01/12/25 2245 01/13/25 0015 BP: 124/75 Pulse: 94 99 80 Resp: 12 15 Temp: TempSrc: SpO2: 94% 94% 92% Admit Weight Last 3 Weights There were no vitals filed for this visit. There is no height or weight on file to calculate BMI. INTAKE/OUTPUT No intake/output data recorded. Intake/Output Summary (Last 24 hours) at 01/13/2025 0128 Last data filed at 01/12/2025 2216 Gross per 24 hour Intake 1000.4 ml Output -- Net 1000.4 ml EKG: No results found. ECHO (Last) Echo complete W/O contrast Result Date: 08/10/2023 Left Ventricle: There is severe focal basal [...] The aortic root is normal in size. General appearance: Alert oriented and cooperative, in no acute distress Skin: Warm and dry to touch Head: Normocephalic, without obvious abnormality, atraumatic Eyes: Conjunctivae unremarkable, EOMs intact, sclera non icteric Neck: No JVD, no carotid bruit, neck supple, trachea midline Lungs: Clear to ausculation bilaterally, no use of accessory muscles. Heart:: RRR with normal S1 and S2 , no murmurs and no gallops. Abdomen: Soft, non-tender, bowel sounds normal Extremities: Chronic lymphedema, non pitting Neurologic: Oriented to time, person and place, affect appropriate, no focal/major motor or sensory defects noted Psychiatric: Appropriate mood, memory and judgment ASSESSMENT Preoperative cardiovascular risk assessment Chronic HFpEF - normal EF TTE 07/2023 Paroxysmal atrial fibrillation on home warfarin Low risk nuclear stress test 07/2023 left femur fracture PLAN -patient stable at the time she was seen. Lying comfortably flat, no signs of fluid overload. -low to moderate risk for perioperative cardiovascular complications. Risk non prohibitive. Can hold warfarin until cleared by surgical team. - can hold home amlodipine for now, given controled BP. -will follow-up. CAMILLE WHITE MD This note was completed using a voice cartographic aide system. Every effort was made to ensure accuracy. However, inadvertent computerized cartographic aide errors may be present. Orthopaedic surgery consultation note This obese osteoporotic woman with previous fragility fractures (periprosthetic fracture around left total knee arthroplasty) now presents with a new fragility fracture around her total knee. She has recently had a polyethylene exchange by my partner Dr. Nafisa Navarro on 11/17/2024. This patient lives alone at home. She is from the [place] [facility]. She was using a walker when she fell and landed on her left leg. She had extreme pain and was brought to our emergency room. The patient has a rather extensive past medical history but most pertinent from an orthopedic standpoint are factors that are contributing to poor bone quality including previous gastric bypass as well as chronic kidney disease. Past Medical History: Diagnosis Date Anemia iron deficiency Arthritis Asthma Atrial fibrillation Atrial fibrillation (HCC) [I48.91] Bilateral shoulder pain Bladder disorder Cataract Cervical disc disorder CKD (chronic kidney disease) renal insuff/follows with Dr Camacho never on dialysis Dental disease chipped Depression Depression with anxiety Disc disorder cervical, thoracic, lumbosacral Dislocation of left knee, initial encounter 11/16/2024 Dry eye syndrome Edema legs Falls frequently Gastrointestinal hemorrhage Added automatically from request for surgery [id number] GERD (gastroesophageal reflux disease) Giant cell arteritis (CMS-HCC) Hyperlipidemia Hypertension Low back pain Lumbar disc disorder LVH (left ventricular hypertrophy) AND DIASTOLIC DYSFUNCTION Lymphedema Macular drusen, bilateral Migraine Mononucleosis Neuropathy Obesity h/o bariatric surgery 01/2018, lost >100# Osteoarthritis of cervical spine Posterior vitreous detachment of right eye Presbyopia Prolonged Q-T interval on ECG 12/2018 Rotator cuff arthropathy of right shoulder Added automatically from request for surgery [id number] Sleep apnea uses c pap/states doesn`t use every night Status post bariatric surgery Thoracic disc disorder Tinnitus Urinary incontinence Urinary urgency UTI (urinary tract infection) Visual impairment glasses Vitreous floaters of right eye Vitreous syneresis of left eye White matter abnormality on MRI of brain Past Surgical History: Procedure Laterality Date BIOPSY ARTERY TEMPORAL Bilateral 07/28/2018 Performed by Jany Mesa MD at [facility] BIOPSY MUSCLE LOWER EXTREMITY Right 04/05/2019 Performed by Zaida Blue MD at [facility] COLONOSCOPY Left Lateral 10/07/2022 Performed by Gissell Ye MD at [facility] DILATION AND CURETTAGE OF UTERUS 2016 EGD Left Lateral 10/07/2022 Performed by Gissell Ye MD at [facility] GALLBLADDER SURGERY 1979`s HYSTEROSCOPY 2016 LAPAROSCOPIC SLEEVE GASTRECTOMY/ CLOSURE DIAPHRAGMATIC CRUA N/A 07/28/2018 Performed by Zaida Gil MD at [facility] NASAL SEPTUM SURGERY 1989`s OPEN REDUCTION INTERNAL FIXATION FEMUR Left 06/03/2024 Performed by Rafat Sepulveda MD at [facility] REPLACEMENT TOTAL KNEE Bilateral 09/2014 REVISION TOTAL JOINT KNEE POLY EXCHANGE Left 11/17/2024 Performed by Nafisa Navarro MD at [facility] TONSILLECTOMY x 2 as a child and second time in her 40`s Pertinent laboratory studies: CBC is pending today. Previous hemoglobin has been in the range of 9. She has an INR today that is 2.6. Her glomerular filtration rate is 24. Physical examination: The patient is a pleasant obese woman who is lying on a stretcher in the emergency room. She is awake alert and oriented. She is answering all questions well. Her vital signs. Are stable BP (!) 64/48 Pulse 94 Temp 36.4 C (97.6 F) (Oral) Resp 16 SpO2 94% Head neck exam is unremarkable. Chest is clinically clear. Abdomen is obese and soft. Focused examination of her left leg shows healed previous anterior incision from her polyethylene exchange. She is moving her left foot and ankle well. Soft tissues about her left leg are intact but her left leg is very large. She is moving her left foot and ankle well. Pertinent radiographic studies: The patient has a left total knee arthroplasty in place. She has a fracture clearly visible on CT that is adjacent to her total knee stem. She was a ipsilateral left locking plate in place. The plate in his in the proximal 3rd of the shaft. Her bone structure is visibly osteopenic in her femur and her tibia. Impression: 1. Left proximal tibial periprosthetic fracture 2. Osteoporosis with fragility fracture 3. Chronic anemia 4. Metabolic bone disease from gastric bypass and chronic renal failure 5. Coumadin induced coagulopathy Recommendations: I do think this patient would do better with reduction and fixation of her fracture. I would likely use a locking plate with cement fixation that would allow for early weight-bearing. I also I had a long discussion with her about her bone quality and the fact that she is at high risk for a felicitas implant fracture in her femur. At some future time I would likely recommend a prophylactic fixation of her left femur, but I think it is too much to do all at 1 setting. At this point her INR and into more normal range, and have appropriate medical clearance for possible surgery tomorrow. If she can not be cleared for tomorrow I will put her on my schedule for Thursday. I had a long conversation with this patient. She was agreeable to surgery. Renan Delaney MD documented in this encounter [facility] 01-16-2025 Hospital Discharge instructions Melissa Norton MD - 01/16/2025 1:15 PM EDT ORTHOPAEDIC DISCHARGE INSTRUCTIONS Diagnosis: Left periprosthetic tibia fracture Procedure: Operative stabilization left periprosthetic tibia fracture Follow-Up Appointment: Dr. Delaney on Future Appointments Date Time Provider Department Center 01/25/2025 1:00 PM [facility] [place] [facility] 01/26/[place]25 10:30 AM Renan Delaney MD [facility] [address] [place] [address] RN: Marlena Delaney RN: Nedra Sepulveda RN: Jessica Rodriguez RN: Jerzy Navarro RN: Beau Alcala Call 911 immediately if you experience: Chest pain, difficulty breathing, or shortness of breath. Call the office for concerns related to: calf pain, leg swelling, fever/chills, redness or drainage around the incision sites, prolong numbness/tingling, or increased pain-that is not relieved with medications, ice and elevation. Weight-bearing instructions: Left Lower Extremity partial weightbearing 40-60 pounds on the left lower extremity Incision care: Keep clean and dry. Replace with clean and dry dressing if applicable. Do not soak submerge or get wounds wet. Do not apply creams or ointments to incision unless instructed to do so. Perform dressing changes after washing your hands and practicing good personal hygiene. Suture and staple care: Do not remove. They will be removed at your postop appointment. Exercises and range of motion: Wiggle (flex and extend) fingers/toes of affected extremity frequently with gentle range of motion. For upper extremity injuries, passively and actively make full fists with the fingers of the operative side. Use your other hand to assist with achieving full flexion & extension. Placed ice bag on affected extremity: 20 minutes on every 2-4 hours. You may not 'feel the cold' because of your dressing, but it is still beneficial to reduce the swelling Elevate the affected extremity above the heart to reduce swelling. For ankle & foot injuries concentrate on elevating your 'toes above your nose' Medications: Refer to discharge medication reconciliation form for complete discharge medication list. If you have a fracture/broken bone: Avoid NSAIDs/anti-inflammatory medications (example ibuprofen, Advil, Aleve, Motrin) - they may delay bone healing. Vitamins/supplements It is recommended to take Calcium and Vitamin D for bone health. Please refer to the medication reconciliation form for exact doses. Pain medications Please refer to the medication reconciliation form for exact doses. Prevention of blood clots Many orthopedic conditions can predispose you to blood clots. Medications for prevention of blood clots may be appropriate. If prescribed, they will be detailed on the Discharge Medication Reconciliation. If you are prescribed aspirin 81mg twice daily, this is for blood clot prevention, not pain control. Please take this as prescribed. The following attachments cannot be sent through Care Everywhere.Blood transfusion ([place])documented in this encounter [facility] 01-16-2025 Plan of care note Problem: Safety Goal: Patient will be injury free during hospitalization Description: INTERVENTIONS: 1. Assess patient's risk for falls and implement fall prevention plan of care per policy 2. Provide and maintain a safe environment 3. Proper use of double Identifiers 4. Medication administration using the 5 rights 5. Hand hygiene 6. Specimens are labeled at the bedside 7. Instruct patient/ patient senior human resources representative about use of safety devices 8. Include patient/ patient senior human resources representative in decisions related to safety Outcome: Progressing Note: Evaluation of progress towards goal: Patient remains safe and free of falls and injury since start of shift. Hourly rounding continued and call light within reach. Bed rails up x3 and orientation reviewed. Will continue to maintain safety during duration of stay.. Problem: Potential for Compromised Skin Integrity Goal: Skin integrity is maintained or improved Description: Patient's goal is: INTERVENTIONS 1. Perform initial skin assessment on admission and as needed 2. Turn patient every 2 hours and PRN 3. Relieve pressure to bony prominences 4. Avoid shearing 5. Keep skin clean and dry 6. Alternate a full bath with partial baths for elderly 7. Apply lotion/moisturizer on skin 8. Monitor patient's hygiene practices 9. Float heels 10. Collaborate with interdisciplinary team and initiate plans and interventions as needed Outcome: Progressing Goal: Patient's nutritional intake is adequate Description: Patient's goal is: INTERVENTIONS 1. Assess and monitor food intake and supplements, patient food preferences, nausea, vomiting, labs, oral cavity (gums, teeth, tongue, mucosa), proper denture fit, and cultural beliefs 2. Monitor for signs of hypoglycemia and hyperglycemia 3. Collaborate with interdisciplinary team and initiate plan and interventions as ordered 4. Monitor patient's weight 5. Assist patient with meals/food selection 6. Assist patient with eating 7. Allow adequate time for meals 8. Provide pleasant environment during mealtime 9. Increase social contact during mealtimes 10. Plan activities to conserve energy 11. Encourage/perform oral hygiene as appropriate 12. Encourage patient to take dietary supplement as ordered 13. Collaborate with clinical gluer and wedger 14. Include patient/ patient's senior human resources representative in decisions related to nutrition Outcome: Progressing Note: Evaluation of progress towards goal: patient eating well and consuming 80-100% of meals. Problem: Safety Goal: Patient will be injury free during hospitalization Description: INTERVENTIONS: 1. Assess patient's risk for falls and implement fall prevention plan of care per policy 2. Provide and maintain a safe environment 3. Proper use of double Identifiers 4. Medication administration using the 5 rights 5. Hand hygiene 6. Specimens are labeled at the bedside 7. Instruct patient/ patient senior human resources representative about use of safety devices 8. Include patient/ patient senior human resources representative in decisions related to safety Outcome: Progressing Note: Evaluation of progress towards goal: Patient remains safe and free of falls and injury since start of shift. Hourly rounding continued and call light within reach. Bed rails up x3 and orientation reviewed. Will continue to maintain safety during duration of stay.. [facility] [employer] 01-16-2025 Progress note Formatting of t his note is different from the original. Occupational Therapy Treatment Discharge Recommendations OT Recommendations : Residential Facility 6 Clicks: Daily Activity Putting on and taking off regular lower body clothing?: Total Bathing (including washing, rinsing, drying)?: A lot Toileting, which includes using toilet, bedpan or urinal?: Total Putting on and taking off regular upper body clothing?: A little Taking care of personal grooming such as brushing teeth?: A little Eating meals?: None Scoring Daily Activity Raw Score: 14 CMS G Code Modifier: CK OT Treatment/Interventions: ADL retraining, Functional transfer training, UE strengthening/ROM, Endurance training, Cognitive reorientation, Patient/family training, Equipment eval/education, Balance, Bed mobility, Compensatory technique education, Functional activities OT Frequency: 5-6days/week OT Duration: LOS Assessment Patient Assessment Therapy Problem List: Decreased ADL status, Decreased balance, Decreased endurance, Decreased high-level ADLs, Decreased mobility, Decreased safe judgement during ADL, Decreased LE strength, Decreased cognition, Decreased self-care trans, Decreased UE ROM, Decreased UE strength Patient Response to Treatment: Slow progress, decreased activity tolerance Mood/Affect: Appropriate for circumstances Rehab Prognosis: Good, With continued OT status post acute discharge Visit RN Communication: Yes Medical Record Reviewed: Yes OT Type of Visit: Treatment Precautions Activity: Early mobility: pass. okay to see per RN Equipment: gait belt, TY stedy, external cath, repositioning sling Weight Bearing Status: PWB L LE (40-60#) 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: Yes Oxygen Used: pt initially on 3L, removed O2 during session. SPO2 95% on RA at end of session. Other: High fall risk, anxiety/fear of falling, h/o falls Pain Assessment Pain Assessment: 0-10 Pain Score: 9 Observed Behavior: Calm Pain Location: Leg Pain Orientation: Left, Lower Pain Intervention(s): Repositioned, Ambulation/increased activity, Cold applied, Elevated Response to Interventions: Quiet Pain 2 Observed Behavior: Calm ADL / IADL Hand Dominance: Right Where Assessed: Supine, bed, Chair Grooming Assistance: Standby assist Grooming Deficit: Wash/dry hands, Brushing hair, Wash/dry face, Oral hygiene Toilet/Commode Assistance: Total assist Toilet/Commode Deficit: Perineal hygiene LE Dressing Assistance: Total assist LE Dressing Deficit: Don/doff brief Footwear Assistance: Total assist Footwear Deficit: R sock, L sock Other: pt required total assist to don B socks while supine. pt required brief change, task completed while supine. total assist required for felicitas hygiene and for LBD to don new brief. pt completed grooming tasks while sitting at EOB. SBA provided for safety. no LOB noted during self care tasks. Home Management - IADL Other: pt required total assist to don B socks while supine. pt required brief change, task completed while supine. total assist required for felicitas hygiene and for LBD to don new brief. pt completed grooming tasks while sitting at EOB. SBA provided for safety. no LOB noted during self care tasks. Cognition Orientation Level: Oriented X4 Other: pt able to recall WB restrictions. pt tends to be hyperverbose. Bed Mobility Rolling: Contact guard assist, Right, Left Supine to Sit: Min assist, Right Other: pt rolled R and L while supine for felicitas hygiene. use of rail required, CGA provided for safety. pt completed supine to sit with HOB slightly elevated. use of rail required. min A provided to assist with L LE during transition. pt left in the chair at end of session with call light within reach and with RN aware. Transfers Sit to Stand: Max assist (x2) Stand to Sit: Max assist (x2) Bed to Chair: Total assist (ty stedy) Other: sit to stand completed from EOB at ty stedy. max A x2 required to complete with bed elevated. pt demos fair compliance with PWB in L LE during transfer. use of ty stedy utilized to transfer pt from bed to chair. repo sling in place for nursing staff. Gait Other: not appropriate at this time. Balance Sitting Balance: Static: Fair (+) Sitting Balance: Dynamic: Fair Standing Balance: Static: Poor Other: unsupported sitting completed while at EOB for ADLs. pt able to tolerate 15 mins with SBA provided. no UE support required while sitting. pt only able to tolerate standing long enough for paddle placement in [facility]. max A x2 required for balance. Activity Tolerance Endurance: Tolerates >30 minutes activity with rest breaks Other: fair overall tolerance. pt is limited by weakness, fatigue, pain, and decreased activity tolerance. Plan Occupational Therapy Care Plan Occupational Therapy Care Plan (Active) Template: OT - Occupational Therapy Problem: Activity Tolerance Dates: Start: 01/14/25 Disciplines: OT Goal: Tolerate > 30 minutes of activity WITHOUT rest breaks Dates: Start: 01/14/25 Expected End: 02/04/25 Description: Goal Description: Disciplines: OT Outcomes Date/Time User Outcome 01/16/25 1004 ANGE Gale Progressing Goal Note filed on 01/16/25 1004 by ANGE Gale Evaluation of progress towards goal: Problem: Bathing LB Dates: Start: 01/14/25 Disciplines: OT Goal: Patient will perform bathing LB with Minimum Assist Dates: Start: 01/14/25 Expected End: 02/04/25 Description: With use of compensatory strategies and/or AE as needed. Disciplines: OT Problem: Bathing UB Dates: Start: 01/14/25 Disciplines: OT Goal: Patient will perform bathing UB with Set-Up Dates: Start: 01/14/25 Expected End: 02/04/25 Description: Goal Description: Disciplines: OT Problem: Bed Mobility Dates: Start: 01/14/25 Disciplines: OT Goal: Patient will perform bed mobility with Stand By Assist Dates: Start: 01/14/25 Expected End: 02/04/25 Description: Goal Description: Disciplines: OT Outcomes Date/Time User Outcome 01/16/25 1004 ANGE Gale Progressing Goal Note filed on 01/16/25 1004 by CARLOTA Gale/Murphy Evaluation of progress towards goal: Problem: Dressing LB Dates: Start: 01/14/25 Disciplines: OT Goal: Patient will perform dressing LB with Minimum Assist Dates: Start: 01/14/25 Expected End: 02/04/25 Description: With use of compensatory strategies and/or AE as needed. Disciplines: OT Outcomes Date/Time User Outcome 01/16/25 1004 ANGE Gale Not Progressing Goal Note filed on 01/16/25 1004 by ANGE Gale Evaluation of progress towards goal: Problem: Dressing UB Dates: Start: 01/14/25 Disciplines: OT Goal: Patient will perform dressing UB with Set-Up Dates: Start: 01/14/25 Expected End: 02/04/25 Description: Goal Description: Disciplines: OT Problem: Functional Mobility Dates: Start: 01/14/25 Disciplines: OT Goal: Patient will perform functional mobility with Minimum Assist Dates: Start: 01/14/25 Expected End: 02/04/25 Description: Goal Description: Disciplines: OT Problem: Grooming Dates: Start: 01/14/25 Disciplines: OT Goal: Patient will perform grooming with Modified [place] Dates: Start: 01/14/25 Expected End: 02/04/25 Description: Goal Description: Disciplines: OT Outcomes Date/Time User Outcome 01/16/25 1004 ANGE Gale Progressing Goal Note filed on 01/16/25 1004 by ANGE Gale Evaluation of progress towards goal: Problem: Sitting Balance Dates: Start: 01/14/25 Disciplines: OT Goal: Improve balance to good Dates: Start: 01/14/25 Expected End: 02/04/25 Description: Static Dynamic Disciplines: OT Outcomes Date/Time User Outcome 01/16/25 1004 ANGE Gale Progressing Goal Note filed on 01/16/25 1004 by ANGE Gale Evaluation of progress towards goal: Problem: Standing Balance Dates: Start: 01/14/25 Disciplines: OT Goal: Improve balance to fair Dates: Start: 01/14/25 Expected End: 02/04/25 Description: Static Dynamic Disciplines: OT Outcomes Date/Time User Outcome 01/16/25 1004 ANGE Gale Not Progressing Goal Note filed on 01/16/25 1004 by ANGE Gale Evaluation of progress towards goal: Problem: Strength Dates: Start: 01/14/25 Disciplines: OT Goal: Improve strength Dates: Start: 01/14/25 Expected End: 02/04/25 Description: Pt will be Mod I with BUE HEP to maximize overall strength and activity tolerance for ADL/IADL. Disciplines: OT Problem: Toilet Transfers Dates: Start: 01/14/25 Disciplines: OT Goal: Patient will perform toilet transfers with Minimum Assist Dates: Start: 01/14/25 Expected End: 02/04/25 Description: Goal Description: Disciplines: OT Problem: Toileting Dates: Start: 01/14/25 Disciplines: OT Goal: Patient will perform toileting with Minimum Assist Dates: Start: 01/14/25 Expected End: 02/04/25 Description: Goal Description: Disciplines: OT Outcomes Date/Time User Outcome 01/16/25 1004 ANGE Gale Not Progressing Goal Note filed on 01/16/25 1004 by ANGE Gale Evaluation of progress towards goal: Problem: Transfers Dates: Start: 01/14/25 Disciplines: OT Goal: Patient will perform transfers with Minimum Assist Dates: Start: 01/14/25 Expected End: 02/04/25 Description: Goal Description: Disciplines: OT Outcomes Date/Time User Outcome 01/16/25 1004 ANGE Gale Not Progressing Goal Note filed on 01/16/25 1004 by ANGE Gale Evaluation of progress towards goal: Occupational Therapy Care Plan (Resolved) There are no resolved problems. Principal Problem: Closed fracture of proximal end of left tibia, unspecified fracture morphology, initial encounter Cosigned by ARABELLA Estrella at 01/16/2025 2:17 PM EDT Associated attestation - Makenna Yanes OTR/L - 01/16/2025 2:17 PM EDT I have reviewed and agree with this note and education documentation for this visit. [facility] [employer] [facility] 01-16-2025 Progress note Formatting of t his note is different from the original. Physical Therapy Treatment Discharge Recommendations PT Recommendations: Residential Facility 6 Clicks: Basic Mobility Turning from your back to your side while in a flat bed without using bed rails?: A little Moving from lying on your back to sitting on side of flat bed without using bed rails?: A little Moving to and from bed to a chair (including w/c)?: Total Standing up from a chair using your arms (e.g. w/c or bedside chair)?: A lot To walk in hospital room?: Total Climbing 3-5 steps with a railing?: Total Scoring 6 Clicks: Basic Mobility Raw Score: 11 CMS G Code Modifier: CL PT Treatment/Interventions: Functional transfer training, LE strengthening/ROM, Endurance training, Patient/family training, Balance, Bed mobility, Gait training, Functional activities PT Frequency: 5-6days/week PT Duration: length of stay Patient Response to Treatment: Slow progress, decreased activity tolerance Assessment Patient Assessment Therapy Problem List: Decreased balance, Decreased endurance, Decreased mobility, Decreased LE ROM, Decreased LE strength Patient Response to Treatment: Slow progress, decreased activity tolerance Mood/Affect: Appropriate for circumstances Rehab Prognosis: Good, With continued PT status post acute discharge Visit RN Communication: Yes Medical Record Reviewed: Yes PT Type of Visit: Treatment Precautions Activity: early mobility pass, okay to see per RN Equipment: gait belt, ty stedy, external female urinary catheter, repositioning sling Weight Bearing Status: PWB Lt LE 40-60 lbs 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: Yes Oxygen Used: initially on 3 liters, but okay to remove per RN, pt on room air with spo2 95% Other: high fall risk, h/o falls Pain Assessment Pain Assessment: 0-10 (RN aware) Pain Score: 6 Observed Behavior: Calm Pain Location: Leg Pain Orientation: Left, Lower Pain Intervention(s): Repositioned, Ambulation/increased activity, Cold pack Response to Interventions: Quiet, No grimacing Bed Mobility Rolling: Contact guard assist Supine to Sit: Min assist Other: pt in bed upon entrance, completes rolling towards both sides for felicitas hygiene. HOB slightly elevated with use of bed rail. inc time/effort for transition to EOB with min assist for Lt LE. pt left in chair with call light in reach. RN aware Transfers Sit to Stand: Max assist (x2) Stand to Sit: Max assist (x2) Bed to Chair: Total assist Other: pt completed STS from EOB with max assist x2 to achieve full stand. pt with forward flexed posture, demos fair ability to maintain PWB status. use of ty stedy for safe transfer from bed to chair this date. recommend maxi eddi for nursing staff. Balance Sitting Balance: Static: Fair (+) Sitting Balance: Dynamic: Fair Standing Balance: Static: Poor Other: pt sat at EOB '15 min for ADLs with SBA. pt demos poor standing balance this date. Activity Tolerance Endurance: Tolerates >30 minutes activity with rest breaks Other: limited by fatigue, weakness and pain. Plan Physical Therapy Care Plan Physical Therapy Care Plan (Active) Template: PT - Physical Therapy Problem: Activity Tolerance Dates: Start: 01/14/25 Disciplines: PT Goal: Tolerate > 30 minutes of activity WITH rest breaks Dates: Start: 01/14/25 Expected End: 02/03/25 Description: Goal Description: Patient to perform functional range / strength exercises to improve functional strength, balance and activity tolerance for improved independence and safety with mobility. Disciplines: PT Outcomes Date/Time User Outcome 01/16/25 Fredi Ochoa, STRAP BUCKLER MACHINE Progressing Problem: Bed Mobility Dates: Start: 01/14/25 Disciplines: PT Goal: Patient will perform bed mobility with Minimum Assist Dates: Start: 01/14/25 Expected End: 02/03/25 Description: Goal Description: Patient to perform mobility with good safety awareness. Disciplines: PT Outcomes Date/Time User Outcome 01/16/25 Fredi Ochoa, STRAP BUCKLER MACHINE Progressing Problem: Gait Dates: Start: 01/14/25 Disciplines: PT Goal: Patient will perform gait with Minimum Assist Dates: Start: 01/14/25 Expected End: 02/03/25 Description: With___RW_,__10__feet Goal Description: Pt to perform activity while maintaining partial weight bearing status. Disciplines: PT Problem: Sitting Balance Dates: Start: 01/14/25 Disciplines: PT Goal: Improve balance to good Dates: Start: 01/14/25 Expected End: 02/03/25 Description: Static Dynamic Disciplines: PT Outcomes Date/Time User Outcome 01/16/25 Fredi Ochoa, STRAP BUCKLER MACHINE Progressing Problem: Standing Balance Dates: Start: 01/14/25 Disciplines: PT Goal: Improve balance to fair Dates: Start: 01/14/25 Expected End: 02/03/25 Description: Static Dynamic Disciplines: PT Outcomes Date/Time User Outcome 01/16/25 Fredi Janice Ochoa PTA Progressing Problem: Strength Dates: Start: 01/14/25 Disciplines: PT Goal: Improve strength Dates: Start: 01/14/25 Expected End: 02/03/25 Description: Of extremity/ location: bilat LE to WFL To facilitate: Disciplines: PT Outcomes Date/Time User Outcome 01/16/25 Fredi Ochoa PTA Progressing Problem: Transfers Dates: Start: 01/14/25 Disciplines: PT Goal: Patient will perform transfers with Minimum Assist Dates: Start: 01/14/25 Expected End: 02/03/25 Description: Goal Description: Patient to perform mobility with good safety awareness and able to maintain PWB status Disciplines: PT Outcomes Date/Time User Outcome 01/16/25 Fredi Ochoa PTA Progressing Physical Therapy Care Plan (Resolved) There are no resolved problems. Principal Problem: Closed fracture of proximal end of left tibia, unspecified fracture morphology, initial encounter Cosigned by Justin Mast PT at 01/16/2025 2:14 PM EDT Associated attestation - Justin Mast PT - 01/16/2025 2:14 PM EDT I have reviewed and agree with this note and education documentation for this visit. [facility] 01-16-2025 Plan of care note Problem: Potential for Compromised Skin Integrity Goal: Skin integrity is maintained or improved Description: Patient's goal is: INTERVENTIONS 1. Perform initial skin assessment on admission and as needed 2. Turn patient every 2 hours and PRN 3. Relieve pressure to bony prominences 4. Avoid shearing 5. Keep skin clean and dry 6. Alternate a full bath with partial baths for elderly 7. Apply lotion/moisturizer on skin 8. Monitor patient's hygiene practices 9. Float heels 10. Collaborate with interdisciplinary team and initiate plans and interventions as needed Outcome: Progressing Note: Evaluation of progress towards goal: Skin assessment complete. No new areas of concern. Felicitas-care as needed. Assistance needed with positioning. Problem: Urinary Incontinence Goal: Perineal skin integrity is maintained or improved Description: INTERVENTIONS 1. Assess genitourinary system, perineal skin, labs (urinalysis), and history of incontinence to include past management, aggravating, and alleviating factors 2. Keep skin clean and dry 3. Apply skin protectant 4. Develop skin care regimen 5. Provide privacy when changing patients incontinence device to maintain their dignity 6. Consider placing an indwelling catheter 7. Collaborate with interdisciplinary team and initiate plans and interventions as needed Outcome: Progressing Note: Evaluation of progress towards goal: Bradford removed per protocol. External female catheter in place. Problem: Activity Intolerance/Impaired Mobility Goal: Mobility/activity is maintained at optimum level for patient Description: Patient's goal is: INTERVENTIONS 1. Assess and monitor patient barriers to mobility and need for assistive/adaptive devices 2. Assess patient's emotional response to limitations 3. Collaborate with interdisciplinary teams and initiate plans and interventions as ordered 4. Encourage independent activity per tolerance 5. Maintain proper body alignment 6. Perform active/passive ROM as tolerated/ordered 7. Coordinate activities to conserve energy 8. Reposition patient 9. Ensure adequate rest/sleep time Outcome: Progressing Note: Evaluation of progress towards goal: Patient up to chair with meals. PT/OT consulted. Self care encouraged. Problem: Pain Goal: Patient goal is pain score less than 4, able to rest, and participant in treatment plan as appropriate Description: INTERVENTIONS: 1. Encourage patient or legal senior human resources representative to report early pain and ask for pain medicine when needed 2. Assess pain using appropriate pain scale and include the scale used when documenting 3. Administer analgesics based on type and severity of pain and evaluate response within appropriate time frame 4. Implement non-pharmacological measures as appropriate and evaluate response 5. Consider cultural and social influences on pain and pain management 6. Notify LIP if interventions ineffective or patient reports new pain 7. Monitor vital signs including pulse ox 8. Reassess pain per policy 9. Teach patient or legal senior human resources representative interventions for comforting Outcome: Progressing Note: Evaluation of progress towards goal: Patient goal is pain score less than 4, able to rest, and participant in treatment plan as appropriate. Problem: Safety Goal: Patient will be injury free during hospitalization Description: INTERVENTIONS: 1. Assess patient's risk for falls and implement fall prevention plan of care per policy 2. Provide and maintain a safe environment 3. Proper use of double Identifiers 4. Medication administration using the 5 rights 5. Hand hygiene 6. Specimens are labeled at the bedside 7. Instruct patient/ patient senior human resources representative about use of safety devices 8. Include patient/ patient senior human resources representative in decisions related to safety Outcome: Progressing Note: Evaluation of progress towards goal: Patient is forgetful but alert. Patient has history of falls. Hourly rounding ongoing. Patient able to use call-light and make needs known to staff. No falls or injuries reported this shift. Problem: Infection Goal: Absence of infection during hospitalization Description: INTERVENTIONS 1. Assess and monitor for signs and symptoms of infection. 2. Monitor lab/diagnostic results. 3. Monitor all insertion sites i.e., indwelling lines, tubes and drains. 4. Monitor endotracheal (as able) and nasal secretions for changes in amount and color. 5. Administer medications as ordered. 6. Instruct and encourage patient and family to use good hand hygiene technique. 7. Identify and instruct patient/patient senior human resources representative in use of appropriate isolation precautions for identified infection/symptoms. 8. Provide and discuss with patient/patient senior human resources representative on educational MDRO sheet. 9. Encourage and monitor nutritional status daily and consult gluer and wedger if indicated. 10. Implement neutropenic guidelines as needed. Outcome: Progressing Note: Evaluation of progress towards goal: Afebrile. No obvious signs of infection noted this shift. Handwashing encouraged. Problem: Knowledge Deficit Goal: Patient/patient senior human resources representative demonstrates understanding of disease process, treatment plan, medications, and discharge instructions Description: INTERVENTIONS 1. Complete learning assessment and assess knowledge base 2. Provide teaching at level of understanding 3. Provide teaching via preferred learning method(s) Outcome: Progressing Note: Evaluation of progress towards goal: Patient demonstrates understanding of disease process, treatment plan, medications, and discharge instructions [facility] [employer] 01-15-2025 Progress note Formatting of t his note might be different from the original. DISCHARGE PLANNING NOTE Referrals sent to [facility] (P# ; SNF F# ; [place] F# [phone]), [facility]/ [place], [place] (P# ; F# ) and to [facility] (P# ; F# ) [employer] 01-15-2025 Progress note Formatting of t his note is different from the original. Images from the original note were not included. DISCHARGE PLANNING NOTE Security Supervisor met with patient, introduced self, and explained role. Patient educated on safe discharge plan. Pt admitted 01/12/2025 with Preop cardiovascular exam [Z01.810] JUDE (acute kidney injury) [N17.9] Closed fracture of proximal end of left tibia, unspecified fracture morphology, initial encounter [S82.102A] per chart review. Consults: Cardiology, Oncology, and Orthopaedics Discharge Barriers per Daily Transition Rounds and chart review: 3L NC, Hem 6.1, IV iron, IV antibiotics Past Medical History: Diagnosis Date Anemia iron deficiency Arthritis Asthma Atrial fibrillation Atrial fibrillation ([facility]) [I48.91] 07/17/2017 Bilateral shoulder pain 05/04/2019 Bladder disorder 11/10/2016 Cataract Cervical disc disorder CKD (chronic kidney disease) renal insuff/follows with Dr Camacho never on dialysis Dental disease chipped Depression Depression with anxiety 10/27/2016 Disc disorder cervical, thoracic, lumbosacral Dislocation of left knee, initial encounter 11/16/2024 Dry eye syndrome 07/28/2016 Edema legs Falls frequently Gastrointestinal hemorrhage 10/05/2022 Added automatically from request for surgery [id number] GERD (gastroesophageal reflux disease) Giant cell arteritis ([facility]) 07/20/2018 Hyperlipidemia Hypertension Low back pain Lumbar disc disorder LVH (left ventricular hypertrophy) AND DIASTOLIC DYSFUNCTION Lymphedema Macular drusen, bilateral 07/28/2016 Migraine Mononucleosis Neuropathy Obesity h/o bariatric surgery 01/2018, lost >100# Osteoarthritis of cervical spine 02/24/2019 Posterior vitreous detachment of right eye 03/03/2019 Presbyopia 03/18/2019 Prolonged Q-T interval on ECG 12/2018 Rotator cuff arthropathy of right shoulder 09/16/2019 Added automatically from request for surgery [id number] Sleep apnea uses c pap/states doesn`t use every night Status post bariatric surgery 02/24/2019 Thoracic disc disorder Tinnitus Urinary incontinence Urinary urgency UTI (urinary tract infection) 03/18/2022 Visual impairment glasses Vitreous floaters of right eye 03/03/2019 Vitreous syneresis of left eye 03/03/2019 White matter abnormality on MRI of brain 02/24/2019 Prior to admission patient was living alone and self care. Medical equipment patient used prior to admission includes: Cane, Raised/Elevated Toilet Seat, Shower Chair, Walker - Rollator, and Wheelchair. Patient denies need for 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/ food/ prescription medication assistance resources. PCP: ALEXANDRU ALLEN [facility]acy:[facility] and pharmacy confirmed with patient. CN offered to assist with follow up appointment arrangements; patient declines. ALEXANDRU ALLEN added to Follow Up Providers for Summary of Care communication. Per patient self-report: Drug use: Denies Smoking: Denies ETOH Use: Denies Current discharge plan is: Residential Facility Services Requested: Services Requested Patient expects to be discharged to:: SNF Does the patient wish to have family/friend/caregiver involved in their discharge planning?: No, the patient does not wish to have family/friend/caregiver involved in their discharge planning Discharge Disposition: SNF Does the patient need discharge 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 arranged?: Yes Patient choice offered: Yes List Provided: Yes [facility] List Provided: Residential Facility Goals: Goals (pt-stated) Evaluation of progress towards goal: pt will likely need to go to SNF for rehab at [place] (pt-stated) Evaluation of progress towards goal: Progress towards discharge Patient has been back and forth from hospital to SNF over the last year. Patient states she was home for a couple of weeks with [facility] prior to her fall this hospitalization. [place] plan at this time is [facility] facility for [facility] term rehab. RC tasked with sending referrals to 1. [facility] 2. [place] and 3. [facility]. Awaiting response. Patient will need 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 arranged when discharged. Patient denies any other needs at this time. Will continue to medically monitor. Will continue to follow as plan of care develops. CN discussed benefits and importance of medication compliance and follow ups. Please feel free to reach out for any discharge planning questions. - Makenna Luu RN 01/15/25 2:54 PM [facility] 01-15-2025 Progress note Formatting of t his note might be different from the original. Consult received. Iv iron has been started. Retic is under productive for her degree of anemia, gfr<45- likely contributing to her anemia as well. Recommend starting rey- will order. Full consult note to come ALEXANDRU Damon 01/15/25 1230 [facility] 01-15-2025 Plan of care note Problem: Potential for Compromised Skin Integrity Goal: Skin integrity is maintained or improved Description: Patient's goal is: INTERVENTIONS 1. Perform initial skin assessment on admission and as needed 2. Turn patient every 2 hours and PRN 3. Relieve pressure to bony prominences 4. Avoid shearing 5. Keep skin clean and dry 6. Alternate a full bath with partial baths for elderly 7. Apply lotion/moisturizer on skin 8. Monitor patient's hygiene practices 9. Float heels 10. Collaborate with interdisciplinary team and initiate plans and interventions as needed Outcome: Progressing Note: Evaluation of progress towards goal: No new skin breakdown at this time continue to monitor for signs of new breakdown Problem: Urinary Incontinence Goal: Perineal skin integrity is maintained or improved Description: INTERVENTIONS 1. Assess genitourinary system, perineal skin, labs (urinalysis), and history of incontinence to include past management, aggravating, and alleviating factors 2. Keep skin clean and dry 3. Apply skin protectant 4. Develop skin care regimen 5. Provide privacy when changing patients incontinence device to maintain their dignity 6. Consider placing an indwelling catheter 7. Collaborate with interdisciplinary team and initiate plans and interventions as needed Outcome: Progressing Note: Evaluation of progress towards goal: Bradford catheter in place. Skin integrity remains in stable condition. No new skin breakdown at this time continue to monitor for signs of new breakdown [facility] 01-15-2025 Miscellaneous Notes Contract: 122 [facility] Rm [id number] Critical Value Contract: 122 Called Irlanda Miller and connected call documented in this encounter [facility] 01-15-2025 Telephone encounter Note Contract: 122 [facility] Rm [id number] Critical Value [facility] 01-15-2025 Telephone encounter Note Contract: 122 Called Irlanda Miller and connected call [facility] 01-15-2025 Miscellaneous Notes Contract: 122 New consult for blood management Called Irlanda Miller and connected to the facility documented in this encounter [facility] 01-15-2025 Telephone encounter Note Contract: 122 New consult for blood management Called Irlanda Miller and connected to the facility [facility] 01-14-2025 Progress note Formatting of t his note is different from the original. Physical Therapy Evaluation Discharge Recommendations PT Recommendations: Residential Facility SNF/ECF Comments: Pt would benefit from skilled therapy services to address deficits in functional strength, decreased activity tolerance and decreased independence with mobility s/p fall with L tib/fib fracture and surgical fixation. Pt unable to care for self in home environment. 6 Clicks: Basic Mobility Turning from your back to your side while in a flat bed without using bed rails?: A little Moving from lying on your back to sitting on side of flat bed without using bed rails?: A little Moving to and from bed to a chair (including w/c)?: Total Standing up from a chair using your arms (e.g. w/c or bedside chair)?: A lot To walk in hospital room?: Total Climbing 3-5 steps with a railing?: Total Scoring 6 Clicks: Basic Mobility Raw Score: 11 [facility] G Code Modifier: CL Therapy Plan Need for skilled Physical Therapy to address deficits in functional mobility due to a status decline resulting from admission s/p fall onto L side while ambulating with walker Xray L hip (-) acute Xray L tib/fib showed transverse fracutre proximal tibia CT L knee showed tibia / fibula fracture Ortho consult - pt is at high risk for femur fracture, needs prophylactic fixation in the future 01/13 pt underwent ORIF L tibial shaft fracture PT Treatment/Interventions: ADL retraining, Functional transfer training, LE strengthening/ROM, Endurance training, Patient/family training, Equipment eval/education, Balance, Bed mobility, Gait training, Functional activities, Neuromuscular reeducation PT Frequency: 5-6days/week PT Duration: length of stay Patient Response to Treatment: Tolerated evaluation without adverse reaction Past Medical History: Diagnosis Date Anemia iron deficiency Arthritis Asthma Atrial fibrillation Atrial fibrillation (HCC) [I48.91] 07/17/2017 Bilateral shoulder pain 05/04/2019 Bladder disorder 11/10/2016 Cataract Cervical disc disorder CKD (chronic kidney disease) renal insuff/follows with Dr Camacho never on dialysis Dental disease chipped Depression Depression with anxiety 10/27/2016 Disc disorder cervical, thoracic, lumbosacral Dislocation of left knee, initial encounter 11/16/2024 Dry eye syndrome 07/28/2016 Edema legs Falls frequently Gastrointestinal hemorrhage 10/05/2022 Added automatically from request for surgery [id number] GERD (gastroesophageal reflux disease) Giant cell arteritis ([facility]) 07/20/2018 Hyperlipidemia Hypertension Low back pain Lumbar disc disorder LVH (left ventricular hypertrophy) AND DIASTOLIC DYSFUNCTION Lymphedema Macular drusen, bilateral 07/28/2016 Migraine Mononucleosis Neuropathy Obesity h/o bariatric surgery 01/2018, lost >100# Osteoarthritis of cervical spine 02/24/2019 Posterior vitreous detachment of right eye 03/03/2019 Presbyopia 03/18/2019 Prolonged Q-T interval on ECG 12/2018 Rotator cuff arthropathy of right shoulder 09/16/2019 Added automatically from request for surgery [id number] Sleep apnea uses c pap/states doesn`t use every night Status post bariatric surgery 02/24/2019 Thoracic disc disorder Tinnitus Urinary incontinence Urinary urgency UTI (urinary tract infection) 03/18/2022 Visual impairment glasses Vitreous floaters of right eye 03/03/2019 Vitreous syneresis of left eye 03/03/2019 White matter abnormality on MRI of brain 02/24/2019 Past Surgical History: Procedure Laterality Date BIOPSY ARTERY TEMPORAL Bilateral 07/28/2018 Performed by Jany Mesa MD at [facility] BIOPSY MUSCLE LOWER EXTREMITY Right 04/05/2019 Performed by Zaida Blue MD at [facility] COLONOSCOPY Left Lateral 10/07/2022 Performed by Gissell Ye MD at [facility] DILATION AND CURETTAGE OF UTERUS 2015 EGD Left Lateral 10/07/2022 Performed by Gissell Ye MD at [facility] GALLBLADDER SURGERY 1979` HYSTEROSCOPY 2015 LAPAROSCOPIC SLEEVE GASTRECTOMY/ CLOSURE DIAPHRAGMATIC CRUA N/A 07/28/2018 Performed by Zaida Gil MD at [facility] NASAL SEPTUM SURGERY 1989` OPEN REDUCTION INTERNAL FIXATION FEMUR Left 06/03/2024 Performed by Rafat Sepulveda MD at [facility] OPEN REDUCTION INTERNAL FIXATION TIBIA WITH STRESS EXAMINATION Left 01/13/2025 Performed by Renan Delaney MD at [facility] REPLACEMENT TOTAL KNEE Bilateral 09/2014 REVISION TOTAL JOINT KNEE POLY EXCHANGE Left 11/17/2024 Performed by Nafisa Navarro MD at [facility] TONSILLECTOMY x 2 as a child and second time in her 40`s Assessment Patient Assessment Therapy Problem List: Decreased ADL status, Decreased balance, Decreased endurance, Decreased high-level ADLs, Decreased mobility, Decreased safe judgement during ADL, Decreased LE strength Patient Response to Treatment: Tolerated evaluation without adverse reaction Mood/Affect: Anxious Rehab Prognosis: Good, With continued PT status post acute discharge Visit RN Communication: Yes Medical Record Reviewed: Yes PT Type of Visit: Evaluation Precautions Activity: early mobility / pass - okay per RN Equipment: RW, gait belt, TY stedy, bradford, IV, repositioning sling placed in chair Weight Bearing Status: PWB L LE (40-60# 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: Yes Other: high fall risk, fearful of falling Pain Assessment Pain Assessment: 0-10 FACES Pain Rating Scale: 9 Observed Behavior: Resting Pain Location: Leg Pain Orientation: Left, Lower Pain Intervention(s): Cold applied, Repositioned, Ambulation/increased activity, Emotional support Response to Interventions: Quiet, No longer crying (RN aware) Pain 2 Observed Behavior: Resting FACES Pain Rating Scale: 9 Home Living Type of Home: Mobile home Home Layout: One level Stairs to Enter: ramp Hand Rails: Bilateral Stairs in Home: 1 step into bathroom Hand Rails in Home: None Bathroom Shower/Tub: Walk-in shower Bathroom Toilet: Standard Bathroom Equipment: Shower chair, Hand-held shower, Grab bars around toilet, Toilet raiser Home Equipment: Rolling walker, 4 Wheeled walker, Wheelchair-manual Other : pt reports use of 4WW and wheelchair for mobility around home. Prior Function Lives With: Alone Receives Help From: Other (Comment), Home health (pt reports neighbor watching her cat while she is in hospital, denies local support. Pt receiving nursing, PT and OT since discharge home in November 2024 from rehab.) Level of Mobility: Independent with ADLs and functional transfers or gait Homemaking Assistance: Independent ( I'm alone so I have to. ) Other: Pt hospitalized May 2024 s/p fall and at rehab through Sep 2024. Returned to hospital late September and discharged home November 2024 from rehab. ADL / IADL Hand Dominance: Right Hearing / Speech / Vision Hearing: Within Functional Limits Speech: Within Functional Limits Current Vision: Wears glasses only for reading Cognition Overall Cognitive Status: Exceptions to Within Functional Limits Orientation Level: Oriented X4 Safety Judgment: Decreased awareness of need for assistance, Decreased awareness of need for safety Insight of Deficits: Decreased awareness of deficits Problem Solving: Reduced Interfering Components: Attention - sustained, Other (comment) (anxiety) Bed Mobility Supine to Sit: Min assist, Right Sit to Supine: (remained up in chair with call light in reach) Other: HOB elevated, use of bedrail. Increased time /effort required for mobility Transfers Sit to Stand: Max assist (2-person assist) Stand to Sit: Mod assist (2-person assist) Other: Pt stood from elevated EOB to walker with max assist x 2. Pt fearful of putting too much weight through L LE and sat abruptly when attempting to advance L LE. With TY madison pt able to stand with 2-person assist and transfer to chair. Bed elevated, pt required increased time and effort due to anxiety with mobility. Gait Other: not appropriate to attempt at this time Balance Sitting Balance: Static: Fair Sitting Balance: Dynamic: Fair ((-)) Standing Balance: Static: Poor Standing Balance: Dynamic: Poor Other: standing balance with bilat UE support RUE Assessment: (see OT eval) LUE Assessment: (see OT eval) RLE Assessment: (functional weakness, 4/5 throughout) LLE Assessment: Exceptions to WFL (functional weakness, <3/5 throughout) Activity Tolerance Endurance: Tolerates >30 minutes activity with rest breaks Other: frequent rest breaks Plan Physical Therapy Care Plan Physical Therapy Care Plan (Active) Template: PT - Physical Therapy Problem: Activity Tolerance Dates: Start: 01/14/25 Disciplines: PT Goal: Tolerate > 30 minutes of activity WITH rest breaks Dates: Start: 01/14/25 Expected End: 02/03/25 Description: Goal Description: Patient to perform functional range / strength exercises to improve functional strength, balance and activity tolerance for improved independence and safety with mobility. Disciplines: PT Problem: Bed Mobility Dates: Start: 01/14/25 Disciplines: PT Goal: Patient will perform bed mobility with Minimum Assist Dates: Start: 01/14/25 Expected End: 02/03/25 Description: Goal Description: Patient to perform mobility with good safety awareness. Disciplines: PT Problem: Gait Dates: Start: 01/14/25 Disciplines: PT Goal: Patient will perform gait with Minimum Assist Dates: Start: 01/14/25 Expected End: 02/03/25 Description: With___RW_,__10__feet Goal Description: Pt to perform activity while maintaining partial weight bearing status. Disciplines: PT Problem: Sitting Balance Dates: Start: 01/14/25 Disciplines: PT Goal: Improve balance to good Dates: Start: 01/14/25 Expected End: 02/03/25 Description: Static Dynamic Disciplines: PT Problem: Standing Balance Dates: Start: 01/14/25 Disciplines: PT Goal: Improve balance to fair Dates: Start: 01/14/25 Expected End: 02/03/25 Description: Static Dynamic Disciplines: PT Problem: Strength Dates: Start: 01/14/25 Disciplines: PT Goal: Improve strength Dates: Start: 01/14/25 Expected End: 02/03/25 Description: Of extremity/ location: bilat LE to WFL To facilitate: Disciplines: PT Problem: Transfers Dates: Start: 01/14/25 Disciplines: PT Goal: Patient will perform transfers with Minimum Assist Dates: Start: 01/14/25 Expected End: 02/03/25 Description: Goal Description: Patient to perform mobility with good safety awareness and able to maintain PWB status Disciplines: PT Physical Therapy Care Plan (Resolved) There are no resolved problems. Principal Problem: Closed fracture of proximal end of left tibia, unspecified fracture morphology, initial encounter [employer] 01-14-2025 Progress note Formatting of t his note is different from the original. Occupational Therapy Evaluation Discharge Recommendations OT Recommendations : Residential Facility SNF/ECF Comments: Due to decline in functional status, recommend SNF to address safety, ADL and mobility deficits to maximize independence and decrease caregiver burden. Pt is a high fall risk and unable to safely care for self at this time. 6 Clicks: Daily Activity Putting on and taking off regular lower body clothing?: A lot Bathing (including washing, rinsing, drying)?: A lot Toileting, which includes using toilet, bedpan or urinal?: Total (Bradford) Putting on and taking off regular upper body clothing?: A lot Taking care of personal grooming such as brushing teeth?: A little Eating meals?: None Scoring Daily Activity Raw Score: 14 [facility] G Code Modifier: CK Therapy Plan Need for skilled Occupational Therapy to address deficits in ADL independence and functional mobility due to a status decline resulting from closed fracture of proximal end of left tibia. Pt is a 69 y/o female s/p fall onto L side while ambulating with walker. Xray L hip (-) acute Xray L tib/fib showed transverse fracutre proximal tibia. CT L knee showed tibia / fibula fracture. Ortho consult: pt is at high risk for femur fracture; needs prophylactic fixation in the future. 01/13 pt underwent ORIF L tibial shaft fracture. PWB LLE. 01/14 Hgb 7.7 PMH significant for L TKA; pt with periprosthetic fracture 05/2024 and underwent ORIF. Pt with posterior dislocation of L tibial component 10/2024, resulting in revision L TKA. Pt has been in rehab s/p each procedure. Past Medical History: Diagnosis Date Anemia iron deficiency Arthritis Asthma Atrial fibrillation Atrial fibrillation (HCC) [I48.91] 07/17/2017 Bilateral shoulder pain 05/04/2019 Bladder disorder 11/10/2016 Cataract Cervical disc disorder CKD (chronic kidney disease) renal insuff/follows with Dr Camacho never on dialysis Dental disease chipped Depression Depression with anxiety 10/27/2016 Disc disorder cervical, thoracic, lumbosacral Dislocation of left knee, initial encounter 11/16/2024 Dry eye syndrome 07/28/2016 Edema legs Falls frequently Gastrointestinal hemorrhage 10/05/2022 Added automatically from request for surgery [id number] GERD (gastroesophageal reflux disease) Giant cell arteritis ([facility]) 07/20/2018 Hyperlipidemia Hypertension Low back pain Lumbar disc disorder LVH (left ventricular hypertrophy) AND DIASTOLIC DYSFUNCTION Lymphedema Macular drusen, bilateral 07/28/2016 Migraine Mononucleosis Neuropathy Obesity h/o bariatric surgery 01/2018, lost >100# Osteoarthritis of cervical spine 02/24/2019 Posterior vitreous detachment of right eye 03/03/2019 Presbyopia 03/18/2019 Prolonged Q-T interval on ECG 12/2018 Rotator cuff arthropathy of right shoulder 09/16/2019 Added automatically from request for surgery [id number] Sleep apnea uses c pap/states doesn`t use every night Status post bariatric surgery 02/24/2019 Thoracic disc disorder Tinnitus Urinary incontinence Urinary urgency UTI (urinary tract infection) 03/18/2022 Visual impairment glasses Vitreous floaters of right eye 03/03/2019 Vitreous syneresis of left eye 03/03/2019 White matter abnormality on MRI of brain 02/24/2019 Past Surgical History: Procedure Laterality Date BIOPSY ARTERY TEMPORAL Bilateral 07/28/2018 Performed by Jany Mesa MD at [facility] BIOPSY MUSCLE LOWER EXTREMITY Right 04/05/2019 Performed by Zaida Blue MD at [facility] COLONOSCOPY Left Lateral 10/07/2022 Performed by Gissell Ye MD at [facility] DILATION AND CURETTAGE OF UTERUS 2016 EGD Left Lateral 10/07/2022 Performed by Gissell Ye MD at [facility] GALLBLADDER SURGERY s HYSTEROSCOPY 2016 LAPAROSCOPIC SLEEVE GASTRECTOMY/ CLOSURE DIAPHRAGMATIC CRUA N/A 07/28/2018 Performed by Zaida Gil MD at [facility] NASAL SEPTUM SURGERY 1989`s OPEN REDUCTION INTERNAL FIXATION FEMUR Left 06/03/2024 Performed by Rafat Sepulveda MD at [facility] OPEN REDUCTION INTERNAL FIXATION TIBIA WITH STRESS EXAMINATION Left 01/13/2025 Performed by Renan Delaney MD at [facility] REPLACEMENT TOTAL KNEE Bilateral 09/2014 REVISION TOTAL JOINT KNEE POLY EXCHANGE Left 11/17/2024 Performed by Nafisa Navarro MD at [facility] TONSILLECTOMY x 2 as a child and second time in her 40`s OT Treatment/Interventions: ADL retraining, Functional transfer training, UE strengthening/ROM, Endurance training, Cognitive reorientation, Patient/family training, Equipment eval/education, Balance, Bed mobility, Compensatory technique education, Functional activities OT Frequency: 5-6days/week OT Duration: LOS Assessment Patient Assessment Therapy Problem List: Decreased ADL status, Decreased balance, Decreased endurance, Decreased high-level ADLs, Decreased mobility, Decreased safe judgement during ADL, Decreased LE strength, Decreased cognition, Decreased self-care trans, Decreased UE ROM, Decreased UE strength Patient Response to Treatment: Tolerated evaluation without adverse reaction Mood/Affect: Anxious Rehab Prognosis: Good, With continued OT status post acute discharge Visit RN Communication: Yes Medical Record Reviewed: Yes OT Type of Visit: Evaluation Precautions Activity: Early mobility: pass Equipment: RW, gait belt, TY stedy, bradford, IV, repositioning sling placed in chair Weight Bearing Status: PWB L LE (40-60#) 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: Yes Oxygen Used: Room air Other: High fall risk, anxiety/fear of falling, h/o falls Pain Assessment Pain Assessment: 0-10 FACES Pain Rating Scale: 7 Pain Location: Leg Pain Orientation: Left, Lower Pain Intervention(s): Repositioned, Ambulation/increased activity, Emotional support Response to Interventions: Quiet (RN notified.) FACES Pain Rating Scale: 7 Home Living Type of Home: Mobile home Home Layout: One level Stairs to Enter: Ramp Hand Rails: Bilateral Stairs in Home: 1 step from bedroom to bathroom Hand Rails in Home: None Bathroom Shower/Tub: Walk-in shower Bathroom Toilet: Standard Bathroom Equipment: Shower chair, Hand-held shower, Grab bars around toilet, Toilet raiser Bathroom Accessibility: Accessible (Not accessible via RW; uses countertop support.) Home Equipment: Rolling walker, 4 Wheeled walker, Wheelchair-manual, Other (Comment) (Adjustable bed) Other : Pt reports using both 4WW and wheelchair for mobility within home. Prior Function Lives With: Alone Receives Help From: Neighbor, Home health (Pt reports neighbor is watching her cat. Pt was receiving HH RN/OT/PT since discharge from rehab.) Level of Mobility: Independent with ADLs and functional transfers or gait (Grossly Mod I to independent; use of AD for mobility.) Homemaking Assistance: Needs assistance Other: Pt states she's primarily independent with IADL since living alone. Pt has not been driving as of recent. Pt usually has meals delivered; pt heats up meals/makes sandwiches. Other: Pt was hospitalized 05/2024 s/p fall; pt at rehab through 09/2024. Pt returned to hospital 10/2024 and discharged home 11/2024. ADL / IADL Hand Dominance: Right Where Assessed: Edge of bed, Chair Eating Assistance: Independent Grooming Assistance: Standby assist (Seated in chair.) Bathing/Showering Assistance: Mod assist Toilet/Commode Assistance: Total assist (Bradford) UE Dressing Assistance: Mod assist LE Dressing Assistance: Max assist Footwear Assistance: Total assist Footwear Deficit: R sock, L sock Other: Assist required to david bilateral socks; bradford catheter in place. Pt participated in grooming/oral care while seated in chair with SBA; increased time required with all tasks. Significant assist required with LB ADL tasks at this time due to weakness, fatigue and decreased balance. Home Management - IADL Other: Assist required to david bilateral socks; bradford catheter in place. Pt participated in grooming/oral care while seated in chair with SBA; increased time required with all tasks. Significant assist required with LB ADL tasks at this time due to weakness, fatigue and decreased balance. Hearing / Speech / Vision Hearing: Within Functional Limits Speech: Within Functional Limits Current Vision: Wears glasses only for reading Cognition Overall Cognitive Status: Exceptions to Within Functional Limits Arousal/Alertness: Appropriate responses to stimuli Attention Span: Attends with cues to redirect Memory: Decreased recall of recent events Orientation Level: Oriented X4 Following Commands: Follows one step commands without difficulty Safety Judgment: Decreased awareness of need for assistance, Decreased awareness of need for safety Awareness of Errors: Decreased awareness of errors Insight of Deficits: Decreased awareness of deficits Problem Solving: Reduced Interfering Components: Attention - sustained, Other (comment) (Anxiety) Other: Pt admits to being very talkative; cues required for redirection. Pt noted with significant fear of falling; anxiety with mobility and maintaining PWB precautions. Bed Mobility Supine to Sit: Min assist, Right Sit to Supine: (NT; pt left up in chair with needs met, call light within reach and repositioning sling in place.) Other: HOB elevated; use of bedrail. Increased time/effort required. Transfers Sit to Stand: Max assist (x2) Stand to Sit: Mod assist (x2) Other: Height of bed elevated; pt stood from EOB with Max A x2 using RW. Cues for hand placement, PWB precautions and technique. Pt fearful of putting too much weight on LLE and abruptly sat back onto bed when attempting to take a step. Utilized Ty Stedy for transfer to chair with Max A x2 for safety and technique; bed remained elevated. Increased time/effort and reassurance required. Gait Other: NT; not appropriate at this time. Balance Balance Evaluation: Exceptions to Functional Limits Sitting Balance: Static: Fair Sitting Balance: Dynamic: Fair (-) Standing Balance: Static: Poor Standing Balance: Dynamic: Poor Other: BUE support on RW/Ty Stedy during standing. LUE Assessment: (Limited shoulder AROM; pt reports RTC injury. Generalized weakness throughout.) RLE Assessment: (Limited shoulder AROM; generalized weakness throughout.) Activity Tolerance Endurance: Tolerates >30 minutes activity with rest breaks Other: Activity limited by pain, anxiety, fatigue and weakness; frequent rest breaks and reassurance required. Plan Occupational Therapy Care Plan Occupational Therapy Care Plan (Active) Template: OT - Occupational Therapy Problem: Activity Tolerance Dates: Start: 01/14/25 Disciplines: OT Goal: Tolerate > 30 minutes of activity WITHOUT rest breaks Dates: Start: 01/14/25 Expected End: 02/04/25 Description: Goal Description: Disciplines: OT Problem: Bathing LB Dates: Start: 01/14/25 Disciplines: OT Goal: Patient will perform bathing LB with Minimum Assist Dates: Start: 01/14/25 Expected End: 02/04/25 Description: With use of compensatory strategies and/or AE as needed. Disciplines: OT Problem: Bathing UB Dates: Start: 01/14/25 Disciplines: OT Goal: Patient will perform bathing UB with Set-Up Dates: Start: 01/14/25 Expected End: 02/04/25 Description: Goal Description: Disciplines: OT Problem: Bed Mobility Dates: Start: 01/14/25 Disciplines: OT Goal: Patient will perform bed mobility with Stand By Assist Dates: Start: 01/14/25 Expected End: 02/04/25 Description: Goal Description: Disciplines: OT Problem: Dressing LB Dates: Start: 01/14/25 Disciplines: OT Goal: Patient will perform dressing LB with Minimum Assist Dates: Start: 01/14/25 Expected End: 02/04/25 Description: With use of compensatory strategies and/or AE as needed. Disciplines: OT Problem: Dressing UB Dates: Start: 01/14/25 Disciplines: OT Goal: Patient will perform dressing UB with Set-Up Dates: Start: 01/14/25 Expected End: 02/04/25 Description: Goal Description: Disciplines: OT Problem: Functional Mobility Dates: Start: 01/14/25 Disciplines: OT Goal: Patient will perform functional mobility with Minimum Assist Dates: Start: 01/14/25 Expected End: 02/04/25 Description: Goal Description: Disciplines: OT Problem: Grooming Dates: Start: 01/14/25 Disciplines: OT Goal: Patient will perform grooming with Modified [place] Dates: Start: 01/14/25 Expected End: 02/04/25 Description: Goal Description: Disciplines: OT Problem: Sitting Balance Dates: Start: 01/14/25 Disciplines: OT Goal: Improve balance to good Dates: Start: 01/14/25 Expected End: 02/04/25 Description: Static Dynamic Disciplines: OT Problem: Standing Balance Dates: Start: 01/14/25 Disciplines: OT Goal: Improve balance to fair Dates: Start: 01/14/25 Expected End: 02/04/25 Description: Static Dynamic Disciplines: OT Problem: Strength Dates: Start: 01/14/25 Disciplines: OT Goal: Improve strength Dates: Start: 01/14/25 Expected End: 02/04/25 Description: Pt will be Mod I with BUE HEP to maximize overall strength and activity tolerance for ADL/IADL. Disciplines: OT Problem: Toilet Transfers Dates: Start: 01/14/25 Disciplines: OT Goal: Patient will perform toilet transfers with Minimum Assist Dates: Start: 01/14/25 Expected End: 02/04/25 Description: Goal Description: Disciplines: OT Problem: Toileting Dates: Start: 01/14/25 Disciplines: OT Goal: Patient will perform toileting with Minimum Assist Dates: Start: 01/14/25 Expected End: 02/04/25 Description: Goal Description: Disciplines: OT Problem: Transfers Dates: Start: 01/14/25 Disciplines: OT Goal: Patient will perform transfers with Minimum Assist Dates: Start: 01/14/25 Expected End: 02/04/25 Description: Goal Description: Disciplines: OT Occupational Therapy Care Plan (Resolved) There are no resolved problems. Principal Problem: Closed fracture of proximal end of left tibia, unspecified fracture morphology[facility] Progress note Formatting of t his note might be different from the original. Reviewed with we will resume home flecainide dosing and add low-dose beta hayder ALEXANDRU [place] 01/14/25 1413 [facility] Work Phone: 01-14-2025 Plan of care note Problem: Potential for Compromised Skin Integrity Goal: Skin integrity is maintained or improved Description: Patient's goal is: INTERVENTIONS 1. Perform initial skin assessment on admission and as needed 2. Turn patient every 2 hours and PRN 3. Relieve pressure to bony prominences 4. Avoid shearing 5. Keep skin clean and dry 6. Alternate a full bath with partial baths for elderly 7. Apply lotion/moisturizer on skin 8. Monitor patient's hygiene practices 9. Float heels 10. Collaborate with interdisciplinary team and initiate plans and interventions as needed Outcome: Progressing Note: Evaluation of progress towards goal: No new skin breakdown at this time continue to monitor for signs of new breakdown Goal: Patient's nutritional intake is adequate Description: Patient's goal is: INTERVENTIONS 1. Assess and monitor food intake and supplements, patient food preferences, nausea, vomiting, labs, oral cavity (gums, teeth, tongue, mucosa), proper denture fit, and cultural beliefs 2. Monitor for signs of hypoglycemia and hyperglycemia 3. Collaborate with interdisciplinary team and initiate plan and interventions as ordered 4. Monitor patient's weight 5. Assist patient with meals/food selection 6. Assist patient with eating 7. Allow adequate time for meals 8. Provide pleasant environment during mealtime 9. Increase social contact during mealtimes 10. Plan activities to conserve energy 11. Encourage/perform oral hygiene as appropriate 12. Encourage patient to take dietary supplement as ordered 13. Collaborate with clinical gluer and wedger 14. Include patient/ patient's senior human resources representative in decisions related to nutrition Outcome: Progressing Note: Evaluation of progress towards goal: Adequate nutritional intake per shift. Problem: Urinary Incontinence Goal: Perineal skin integrity is maintained or improved Description: INTERVENTIONS 1. Assess genitourinary system, perineal skin, labs (urinalysis), and history of incontinence to include past management, aggravating, and alleviating factors 2. Keep skin clean and dry 3. Apply skin protectant 4. Develop skin care regimen 5. Provide privacy when changing patients incontinence device to maintain their dignity 6. Consider placing an indwelling catheter 7. Collaborate with interdisciplinary team and initiate plans and interventions as needed Outcome: Progressing Note: Evaluation of progress towards goal: No new skin breakdown at this time continue to monitor for signs of new breakdown. Bradford catheter in place. Skin integrity remains in stable condition. Problem: Inadequate Airway Clearance Goal: Patient will maintain patent airway Description: INTERVENTIONS 1. Assess and monitor breath sounds, cough and sputum (if present) 2. Monitor respiratory rate and oxygen saturation 3. Collaborate with respiratory therapy to administer medication, oxygen, and suitable airway clearance techniques as ordered 4. Position patient for maximum ventilatory efficiency; elevate head of bed at least 30 degrees if appropriate 5. Provide adequate fluid intake to liquify secretions if appropriate 6. Suction secretions as indicated to maintain patent airway 7. Instruct patient to turn, cough, and deep breathe; encourage incentive spirometer if indicated Outcome: Progressing Note: Evaluation of progress towards goal: Respiratory status remains in stable condition. Remains w/o ss of distress or shortness of breath. Problem: Inadequate Breathing Pattern Goal: Patient will achieve/maintain normal respiratory rate/effort Description: Patient's goal is: INTERVENTIONS 1. Assess and monitor respiratory rate, effort, breathing pattern, and oxygenation 2. Monitor patient for restlessness, anxiety, air hunger 3. Assess physical activity tolerance 4. Assess tobacco history; ask, advise, and refer as appropriate 5. Collaborate with interdisciplinary team and initiate plans/interventions as needed Outcome: Progressing Note: Evaluation of progress towards goal: Respiratory status remains in stable condition. Remains w/o ss of distress or shortness of breath. Goal: Patient will maintain effective ventilation Description: Patient's goal is: INTERVENTIONS 1. Assess and monitor vital signs, respiratory status (to include respiratory rate, depth, effort, and breath sounds), oxygen saturation, oral mucosa, tongue, pain, and labs (ABGs). 2. Collaborate with interdisciplinary team and initiate plans and interventions as needed 3. Oxygen therapy as indicated 4. Position patient for maximum ventilatory efficiency 5. Instruct patient to turn, cough, and deep breathe; encourage incentive spirometer if indicated 6. Plan activities to conserve energy 7. Encourage ambulation/activity per patient's tolerance 8. Collaborate with patient/RT to administer medications/treatments 9. Monitor lab/diagnostic results Outcome: Progressing Note: Evaluation of progress towards goal: Respiratory status remains in stable condition. Remains w/o ss of distress or shortness of breath. Problem: Anxiety Goal: Anxiety is at manageable level Description: Patient's goal is: INTERVENTIONS 1. Assess and monitor patient's anxiety level 2. Monitor for signs and symptoms of anxiety both physical and emotional (heart palpitations, chest pain, shortness of breath, headaches, nausea, feeling jumpy, restlessness, irritable, apprehensive) 3. Reorient/orient patient to unit/surroundings 4. Explain treatment plan 5. Explain tests/procedures prior to initiation 6. Encourage participation in care 7. Encourage verbalization of concerns/fears 8. Assess coping mechanisms 9. Assist in developing anxiety-reducing skills 10. Administer complimentary therapies 11. Manage patient's environment 12. Limit or eliminate stimulants such as caffeine and nicotine 13. Collaborate with ancillary departments 14. Include patient/patient senior human resources representative in decisions related to anxiety Outcome: Progressing Note: Evaluation of progress towards goal: Pt encouraged to express needs and concerns; verbalizes comfort at this time w/o ss of anxiety heart palpitations, chest pain, shortness of breath, headaches, nausea, feeling jumpy, restlessness, irritable, apprehensive. Problem: Activity Intolerance/Impaired Mobility Goal: Mobility/activity is maintained at optimum level for patient Description: Patient's goal is: INTERVENTIONS 1. Assess and monitor patient barriers to mobility and need for assistive/adaptive devices 2. Assess patient's emotional response to limitations 3. Collaborate with interdisciplinary teams and initiate plans and interventions as ordered 4. Encourage independent activity per tolerance 5. Maintain proper body alignment 6. Perform active/passive ROM as tolerated/ordered 7. Coordinate activities to conserve energy 8. Reposition patient 9. Ensure adequate rest/sleep time Outcome: Progressing Note: Evaluation of progress towards goal: PT/OT on board. Mobility status improving; will continue to monitor according to pt care plan and safe patient handling and transferring procedures. Problem: Inadequate Coping Goal: Demonstrates and verbalizes ability to cope effectively Description: Patient's goal is: INTERVENTIONS 1. Patient is able to verbalize feelings related to emotional state 2. Encourage verbalization of feelings, perceptions, fears, stressors, loss of loved ones 3. Encourage verbalization of problems out of their control 4. Encourage participation in care and self management 5. Inform patient of all treatment/care prior to providing care 6. Collaborate with pastoral/spiritual care, social human services assistants, mental health counselor as needed. 7. Instruct patient on diversional activities such as physical activity, distraction, and deep breathing exercises to assist with coping 8. Involve patient's senior human resources representative in care Outcome: Progressing Note: Evaluation of progress towards goal: Pt encouraged to express needs and concerns; verbalizes comfort at this time. Problem: Pain Goal: Patient goal is pain score less than 4, able to rest, and participant in treatment plan as appropriate Description: INTERVENTIONS: 1. Encourage patient or legal senior human resources representative to report early pain and ask for pain medicine when needed 2. Assess pain using appropriate pain scale and include the scale used when documenting 3. Administer analgesics based on type and severity of pain and evaluate response within appropriate time frame 4. Implement non-pharmacological measures as appropriate and evaluate response 5. Consider cultural and social influences on pain and pain management 6. Notify LIP if interventions ineffective or patient reports new pain 7. Monitor vital signs including pulse ox 8. Reassess pain per policy 9. Teach patient or legal senior human resources representative interventions for comforting Outcome: Progressing Note: Evaluation of progress towards goal: Verbalizes adequate comfort level. Please see MAR for pain management orders. Problem: Safety Goal: Patient will be injury free during hospitalization Description: INTERVENTIONS: 1. Assess patient's risk for falls and implement fall prevention plan of care per policy 2. Provide and maintain a safe environment 3. Proper use of double Identifiers 4. Medication administration using the 5 rights 5. Hand hygiene 6. Specimens are labeled at the bedside 7. Instruct patient/ patient senior human resources representative about use of safety devices 8. Include patient/ patient senior human resources representative in decisions related to safety Outcome: Progressing Note: Evaluation of progress towards goal: Proper identifiers used with patient care and medication administration. Remains free of injury during shift. Problem: Infection Goal: Absence of infection during hospitalization Description: INTERVENTIONS 1. Assess and monitor for signs and symptoms of infection. 2. Monitor lab/diagnostic results. 3. Monitor all insertion sites i.e., indwelling lines, tubes and drains. 4. Monitor endotracheal (as able) and nasal secretions for changes in amount and color. 5. Administer medications as ordered. 6. Instruct and encourage patient and family to use good hand hygiene technique. 7. Identify and instruct patient/patient senior human resources representative in use of appropriate isolation precautions for identified infection/symptoms. 8. Provide and discuss with patient/patient senior human resources representative on educational MDRO sheet. 9. Encourage and monitor nutritional status daily and consult gluer and wedger if indicated. 10. Implement neutropenic guidelines as needed. Outcome: Progressing Note: Evaluation of progress towards goal: Skin integrity remains in stable condition; remains w/o ss of infection, fever, pain, or increased discomfort. Problem: Knowledge Deficit Goal: Patient/patient senior human resources representative demonstrates understanding of disease process, treatment plan, medications, and discharge instructions Description: INTERVENTIONS 1. Complete learning assessment and assess knowledge base 2. Provide teaching at level of understanding 3. Provide teaching via preferred learning method(s) Outcome: Progressing Note: Evaluation of progress towards goal: Verbalizes understanding of current treatment plan as educated. Will continue to educate for understanding. Problem: Discharge Planning Goal: Discharge to post-acute care, other facility, or home with appropriate resources Description: Patient's goal is: INTERVENTIONS 1. Conduct assessment to determine patient/family and health care team treatment goals, and need for post-acute services based on payer coverage, community resources, and patient preferences, and barriers to discharge 2. Coordinate with Social work, Care Navigation, and Utilization Review to arrange appropriate level of services according to patient's needs based on patient preference and payer coverage in collaboration with the physician and health care team 3. Address psychosocial, clinical, and financial barriers to discharge as identified in assessment in conjunction with the patient/family and health care team 4. Consult appropriate ancillary services (i.e.. PT/OT/ST, etc) as needed 5. Communicate with and update the patient/family, physician, and health care team regarding progress on the discharge plan 6. Identify discharge learning needs (meds, wound care, etc). 7. Arrange for needed discharge 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 as appropriate Outcome: Progressing Note: Evaluation of progress towards goal: Discharge planning in process; will continue to monitor for discharge needs. Problem: Moderate - High Risk Fall Score Description: Bach Fall Score of =/> 25 or indicated by [facility] Assessment Goal: Patient should be free from fall Description: Interventions: 1. Aldie to environment 2. Hourly rounds addressing the 4 P's (Pain, Positioning, Possessions, Potty) 3. Clear area of hazards (spills, clutter, electrical cords, unnecessary equipment) 4. Place equipment (bed & TV controls, call light, phone, urinal) within reach 5. Encourage patient to wear glasses and hearing aides as appropriate 6. Maintain bed in lowest position 7. Lock wheels on bed/wheelchair 8. Provide adequate lighting, including night light 9. Assess need for additional bedding, food/fluids, pain med's prior to sleep/routinely 10. Provide gripper slippers or personal non-skid footwear 11. Teach patient and patient senior human resources representative to maintain environment for safety and engage in all aspects of fall prevention program 12. Remind patient to call for help before getting out of bed 13. Initiate bed/chair/exit alarms supportive devices as appropriate, (chair wedge, no-skid floor mat, raised edge mattress, hip protectors) 14. Locate patient bed assignment for optimal visualization 15. Evaluate and identify Safe Patient Handling Equipment needs 16. Provide supervision when out of bed or chair 17. Utilize gait belt as needed to assist with ambulation 18. Place adaptive equipment (cane, walker) within reach 19. Request patient senior human resources representative bring adaptive equipment/mobility aids from home or obtain and provide as needed 20. Consult pharmacy regarding effects of med's affecting mobility, cognition, and alternatives 21. Obtain physician order for PT if risk factors associated with mobility are present 22. Obtain physician order for OT as appropriate 23. Utilize diversional activities 24. Educate patient and patient senior human resources representative how to maintain a safe environment during visitation times (notify nurse prior to leaving bedside) 25. Consider appropriateness of medical or non-biomedical engineering professor 26. Set up voiding schedule as appropriate (every 2 hours) Outcome: Progressing Note: Evaluation of progress towards goal: Call light within reach. Remains free of fall or injury. Environment free of clutter. [facility] 01-14-2025 Nurse Note Patient requested that nurse do not remove her catheter. [facility] 01-14-2025 Nurse Note Patient requested that nurse do not remove her catheter. documented in this encounter [facility] 01-13-2025 Procedure note DATE OF OPERATION: 01/13/2025 PREOPERATIVE DIAGNOSES: 1. Periprosthetic fracture around left total knee arthroplasty (M97.12XA). 2. Osteoporosis with associated left proximal tibia fracture (M80.0628). POSTOPERATIVE DIAGNOSES: 1. Periprosthetic fracture around left total knee arthroplasty (M97.12XA). 2. Osteoporosis with associated left proximal tibia fracture (M80.0628). OPERATION PERFORMED: 1. Open reduction, internal fixation of left proximal tibial shaft fracture around total knee arthroplasty (09154.22), unusual in that: a. The patient's bone quality was severely compromised due to severe osteoporosis. b. Intramedullary insertion of Simplex cement into the canal of the tibia was performed as well as attempts to place intramedullary cement around the intramedullary prosthetic stem. c. Fixation of the entire intramedullary canal with a 4 mm diameter Synthes elastic nail employed, in order to have some reinforcement of the entire bone. d. A medially placed, LCP, BECKA distal femoral titanium alloy plate was placed medially, employing cortical screw fixation through cement, as well as locking BECKA screws. 2. Stress examination left knee under anesthesia and fluoroscopy (48635.59). SURGEON: Renan Delaney MD. TIRE REBUILDER: Everton Estes MD, PGY2, Orthopedic Surgery Resident from the [facility]. ANESTHESIA: General. ESTIMATED BLOOD LOSS: 700 mL. INTRAOPERATIVE FLUIDS: 225 mL of autologous red blood cells from the Cell Saver, 3500 mL crystalloid, 250 mL of 5% albumin. URINARY OUTPUT: 400 mL, concentrated, of urine. INDICATIONS FOR SURGERY: Keila Allen is a 69-year-old, osteoporotic woman from [place], [place] who has had previous fragility fractures. In the past 1 of my partners, Dr. Rafat Sepulveda, fixed a fragility osteoporotic fracture of her distal femur around a total knee arthroplasty. She more recently had a polyethylene exchange of her left total knee by 1 of my other partners, Dr. Nafisa Navarro. The patient presented to the hospital with a simple fall, sustaining metaphyseal fracture of her tibia just below the base plate of her pre-existing total knee arthroplasty. I sat down with the patient last night when I saw her in the emergency room and reviewed all of her possible treatment options. Her leg and thigh are massive in size. It will be difficult to get any type of brace on this fracture. The patient would also like to try to get up and be more mobile and possibly walk earlier on this left leg. With her history of chronic renal failure, stage IV, previous gastric bypass, and multiple fragility fractures, her bone density and bone quality were not good and this would have impact on surgical fixation. My plan for this patient was to perform intramedullary reinforcement of her canal with bone cement. I will also place a large diameter elastic nail in the entire tibial canal. Her proximal tibia can be buttressed with a medially based Becka plate. The patient seemed to understand what will be involved with the surgical procedure. She agreed to proceed. Of note, she is at very high risk of sustaining another periprosthetic fracture around her distally-based distal femoral plate. I have told her I would like to prophylactically fix her proximal femur at some point in the future, but this could be reserved for a different day. She seemed to understand my rationale for this. The affected left thigh was marked. Witnessed informed consent was obtained. DESCRIPTION OF PROCEDURE: This obese woman, 5 feet 5 inches tall, 220 pounds, BMI almost 37, was taken to the operating theater where she was given a general anesthetic with endotracheal tube intubation. A Bradford urinary catheter was in place. Her urine was thick and cloudy. She had an arterial line placed by the anesthesiology service. Her right leg was placed on a radiolucent bone foam. The mobile C-arm fluoroscopy unit was available during the case. Spot and dynamic fluoroscopic images were taken as needed. The left leg was then examined. There was a previous healed midline scar from her recent polyethylene exchange of her total knee arthroplasty. Otherwise, the soft tissue conditions looked good. No tourniquet was used. With the patient's leg resting on a radiolucent bone foam, the entire left lower extremity from the foot to the upper thigh was scrubbed with chlorhexidine, dried, painted with DuraPrep and then draped off in the usual sterile fashion. Because this patient has severe kidney disease, I elected to give her preoperative prophylaxis with clindamycin. The patient received 900 mg of intravenous clindamycin for antibiotic prophylaxis. After an appropriate timeout, the mobile C-arm fluoroscopy unit was brought in. Varus and valgus stress examination of the left knee under fluoroscopy and anesthesia showed varus collapse of the knee. With this in mind, I elected to place my buttress plate medially. A long lateral incision was made under C-arm fluoroscopic guidance. Dissection was carried out through the skin and subcutaneous tissues. The fascia of the anterior compartment was gently elevated. The fracture site was then appreciated. A power lo was then used to make an approximately 3 x 2 cm long hole in the tibia at the fracture site. Two packs of Simplex low- viscosity bone cement were then inserted into the intramedullary canal. The cement was placed distally in the canal and as much cement as possible was attempted to be placed in the metaphyseal area as well. A cannulated awl was used to make an entry hole just adjacent to the total knee arthroplasty on C-arm fluoroscopic guidance. As the low-viscosity cement was allowed to set, a 4 mm diameter Synthes flexible elastic nail was placed into the hole proximally, past the fracture site, and it came down the canal of the tibia all the way down to the ankle. A valgus stress was placed on the knee as this was done to avoid varus collapse. A power lo was used to gently notch and then cut the elastic nail flush with the skin. Once the canal had set, an approximately 5 to 6 cm medial incision was made under C-arm fluoroscopic guidance. Dissection was carried out through the skin and subcutaneous tissues. The periosteum just distal to the pes anserine insertion was opened. A 9 hole, titanium alloy, left, BECKA plate was chosen. The plate was placed subperiosteally down the femur. Once it was in good position, selected 4.5 mm cortical screws were placed. Reasonable purchase through cement was obtained with these screws. The bone quality overall was poor, however. C-arm fluoroscopic imaging confirmed good position of the medial buttress plate. Selected locking Becka plates were placed both proximally and distally. The final construct was very stable. It came out to full extension. It was stable to varus and valgus stress. Final C- arm fluoroscopic images were taken and saved on the hospital PACS system. The wounds were all irrigated with saline solution. A hemostatic gelatin powder was placed into the wounds to help with postoperative hemostasis. The deep tissues were closed with Vicryl suture. The long lateral incision was closed with a running, #1, barbed, Stratafix suture. The skin over the anterolateral incision, as well as the medial incisions were closed with nylon sutures. It should be noted that after the original medial incision was made, 2 smaller incisions were made distally to palpate the plate and make sure it was on the bone. Small cortical and locking screws were able to be placed through these incisions. Sterile dressings were then applied. Cotton Webril padding was applied from the foot to the upper thigh. A circumferential double Bakari bandage was placed. Ms. Allen tolerated this procedure well. She was awakened in the operating room and taken to the postanesthesia recovery area in stable condition. I will allow the patient about 40 pounds of weightbearing only on the left leg. She will need a walker. She will need discharge disposition and follow up with me in my office in 2 weeks for a clinical and radiographic check. With her history of a previous gastric bypass, chronic renal failure, previous fragility fractures, I feel she is at high risk for a fracture above her distally based femoral implant. Once she recovers from the surgery, and improves her hemoglobin to a more normal range, I will recommend prophylactic fixation of her left femur above her femoral plate before she has a fracture there as well. The patient will be started on Lovenox for DVT prophylaxis and transitioned back to her normal dose of Coumadin. She will need discharge planning and again, she will need to follow up with me in the office in about 2 weeks. When the patient does come to my office, I will need an AP, cross- table lateral, and internal oblique view taken of her left tibia. RENAN DELANEY MD GMG/MODL J#: [id number] [facility] 01-13-2025 Progress note Formatting of t his note is different from the original. Physical Therapy PT Type of Visit: Medical deferral Reason For Medical Deferral: Medical procedure ongoing (Per RN pt is going to sx. today.) [facility] 01-13-2025 Emergency department Note Bed: 39 Expected date: Expected time: Means of arrival: Comments: 17 [facility] 01-13-2025 Emergency department Note Bed: 39 Expected date: Expected time: Means of arrival: Comments: 17 Pt states that she was going down a ramp and fell and landed on her left hip and is having left leg pain. Pt states she hit her head but denies LOC. 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 Bed: 17 Expected date: Expected time: Means of arrival: [facility] Comments: 76F Fall; landed on LT side, did not hit head On thinners Swelling on LT knee cap Surgery at [facility] few months ago 75mcg 91/51 Iv est; NS bolus running [id number] 18 96%ra documented in this encounter [employer] 01-13-2025 Consult note Formatting of th is note is different from the original. Images from the original note were not included. [facility] [address] [place] [address] HISTORY & PHYSICAL / CONSULT NOTE Keila Henriquez Sruthilowell PCP: MARYJANE DEUTSCH APRN-DISTRICT SERVICE MANAGER Date of Admission: 01/12/2025 Date of Consultation: 01/13/2025 1:28 AM Consult for preoperative cardiovascular risk assessment SUBJECTIVE History of Present Illness: Keila Allen is a 69 y.o. female with history of chronic diastolic heart failure, paroxysmal atrial fibrillation, hypertension, hyperlipidemia, CKD, YUNG, mild carotid disease. Patient presented to the ED today after a fall. Stated that he was walking down a ramp with her friend and suddenly found herself on the ground, unexplained loss of balance. Denied any dizziness, syncope or presyncope. Denied chest pain or shortness of breath. Denied orthopnea. Reports having chronic lymphedema which is stable. On arrival to the hospital vitals within normal limits. EKG showed patient is sinus/ectopic rhythm, IVCD, PVC. Noted to have IVCD in previous EKG. Blood work showed INR 2.6. Creatinine 2.1. Chest x-ray negative. Imaging study showing evidence of fracture in the distal left femur around surgical fixation site. At the time patient was seen was lying in bed in no acute distress. No active chest pain shortness of breath. Previous Medical History: Past Medical History: Diagnosis Date Anemia iron deficiency Arthritis Asthma Atrial fibrillation Atrial fibrillation (HCC) [I48.91] Bilateral shoulder pain Bladder disorder Cataract Cervical disc disorder CKD (chronic kidney disease) renal insuff/follows with Dr Camacho never on dialysis Dental disease chipped Depression Depression with anxiety Disc disorder cervical, thoracic, lumbosacral Dislocation of left knee, initial encounter 11/16/2024 Dry eye syndrome Edema legs Falls frequently Gastrointestinal hemorrhage Added automatically from request for surgery [id number] GERD (gastroesophageal reflux disease) Giant cell arteritis (CMS-HCC) Hyperlipidemia Hypertension Low back pain Lumbar disc disorder LVH (left ventricular hypertrophy) AND DIASTOLIC DYSFUNCTION Lymphedema Macular drusen, bilateral Migraine Mononucleosis Neuropathy Obesity h/o bariatric surgery 01/2018, lost >100# Osteoarthritis of cervical spine Posterior vitreous detachment of right eye Presbyopia Prolonged Q-T interval on ECG 12/2018 Rotator cuff arthropathy of right shoulder Added automatically from request for surgery [id number] Sleep apnea uses c pap/states doesn`t use every night Status post bariatric surgery Thoracic disc disorder Tinnitus Urinary incontinence Urinary urgency UTI (urinary tract infection) Visual impairment glasses Vitreous floaters of right eye Vitreous syneresis of left eye White matter abnormality on MRI of brain Previous Surgical History: Past Surgical History: Procedure Laterality Date BIOPSY ARTERY TEMPORAL Bilateral 07/28/2018 Performed by Jnay Mesa MD at [facility] BIOPSY MUSCLE LOWER EXTREMITY Right 04/05/2019 Performed by Zaida Blue MD at [facility] COLONOSCOPY Left Lateral 10/07/2022 Performed by Gissell Ye MD at [facility] DILATION AND CURETTAGE OF UTERUS 2016 EGD Left Lateral 10/07/2022 Performed by Gissell Ye MD at [facility] GALLBLADDER SURGERY 1979` HYSTEROSCOPY 2015 LAPAROSCOPIC SLEEVE GASTRECTOMY/ CLOSURE DIAPHRAGMATIC CRUA N/A 07/28/2018 Performed by Zaida Gil MD at [facility] NASAL SEPTUM SURGERY 1989` OPEN REDUCTION INTERNAL FIXATION FEMUR Left 06/03/2024 Performed by Rafat Sepulveda MD at [facility] REPLACEMENT TOTAL KNEE Bilateral 09/2014 REVISION TOTAL JOINT KNEE POLY EXCHANGE Left 11/17/2024 Performed by Nafisa Navarro MD at [facility] TONSILLECTOMY x 2 as a child and second time in her 40`s Allergies: Allergies Allergen Reactions Cephalexin Shortness Of Breath, Swelling and Rash Tolerates ceftriaxone Dicloxacillin Sodium Shortness Of Breath, Swelling and Rash Tolerates ceftriaxone Lipitor [Atorvastatin] muscle cramps Nifedipine Hypotension Other reaction(s): Allergy: EDEMA; Penicillin G Potassium Hives Penicillins Hives Tolerates ceftriaxone Hospital Meds: Current Facility-Administered Medications Medication Dose Route Frequency Provider Last Rate Last Admin acetaminophen (TYLENOL EXTRA STRENGTH) tablet 1,000 mg 1,000 mg oral Q8H Richy Montoya DO calcium carbonate-vitamin D3 (OSCAL 500 + D) 500 mg (1,250 mg) - 200 units per tablet 1 tablet 1 tablet oral BID with meals Caren Iglesias MD dextrose (GLUTOSE) 40 % gel 15 g 15 g oral PRN s, DO dextrose 5 % (D5W) infusion 100 mL/hr intravenous Continuous PRN s, DO dextrose 50 % in water (D50W) 50% solution 25 mL 25 mL intravenous PRN s, DO glucagon HCL injection 1 mg 1 mg intramuscular PRN los, DO ondansetron (PF) (ZOFRAN) injection 4 mg 4 mg intravenous Q8H PRN Richy Lindsay, DO oxyCODONE (ROXICODONE) immediate release tablet 10 mg 10 mg oral Q4H PRN Richy Lindsay, DO oxyCODONE (ROXICODONE) immediate release tablet 5 mg 5 mg oral Q4H PRN Richy Lindsay, DO phytonadione (Vitamin K) (AQUA-MEPHYTON) 5 mg in sodium chloride 0.9 % 50 mL IVPB 5 mg intravenous Once , DO sennosides-docusate sodium (SENOKOT-S) 8.6-50 mg 2 tablet 2 tablet oral Nightly , DO sodium chloride 0.9 % infusion 20 mL/hr intravenous Continuous PRN Caren Iglesias MD Current Outpatient Medications Medication Sig Dispense Refill acetaminophen (TYLENOL EXTRA STRENGTH) 500 mg tablet Take 2 tablets (1,000 mg total) by mouth every 8 (eight) hours. 30 tablet 0 amLODIPine (NORVASC) 10 mg tablet Take 1 tablet (10 mg total) by mouth daily with breakfast. bisacodyL (DULCOLAX) 10 mg suppository Insert 1 suppository (10 mg total) into the rectum daily as needed for constipation. 12 suppository 0 calcium citrate (CALCITRATE) 200 mg (950 mg) tablet Take 2 tablets (400 mg total) by mouth in the morning and 2 tablets (400 mg total) at noon and 2 tablets (400 mg total) in the evening. Take with meals. cholecalciferol, vitamin D3, 2,000 units tablet Take 1 tablet (2,000 Units total) by mouth in the morning. cyanocobalamin, vitamin B-12, (VITAMIN B-12) 1,000 mcg tablet extended release Take 1 tablet (1 mg total) by mouth in the morning. DULoxetine (CYMBALTA) 60 mg capsule Take 1 capsule (60 mg total) by mouth in the morning. ezetimibe (ZETIA) 10 mg tablet Take 1 tablet (10 mg total) by mouth in the morning. ferrous sulfate 325 (65 FE) mg tablet Take 1 tablet (325 mg total) by mouth daily with breakfast. flecainide (TAMBOCOR) 100 mg tablet Take 1 tablet (100 mg total) by mouth every 12 (twelve) hours. methocarbamoL (ROBAXIN) 500 mg tablet Take 1 tablet (500 mg total) by mouth in the morning and 1 tablet (500 mg total) at noon and 1 tablet (500 mg total) in the evening and 1 tablet (500 mg total) before bedtime. 28 tablet 0 oxybutynin XL (DITROPAN XL) 15 mg 24 hr tablet take one tablet by mouth every morning 90 tablet 0 pantoprazole (PROTONIX) 40 mg EC tablet Take 1 tablet (40 mg total) by mouth in the morning. 90 tablet 3 rosuvastatin (CRESTOR) 5 mg tablet Take 1 tablet (5 mg total) by mouth in the evening. sennosides-docusate sodium (SENOKOT-S) 8.6-50 mg Take 2 tablets by mouth nightly. topiramate (TOPAMAX) 50 mg tablet TAKE ONE TABLET BY MOUTH TWICE A DAY 180 tablet 0 vit A/vit C/vit E/zinc/copper (PRESERVISION AREDS ORAL) Take 1 tablet by mouth nightly. warfarin (COUMADIN) 5 mg tablet Take 0.5-1 tablets (2.5-5 mg total) by mouth in the evening. or as directed by Natalie BAXTER (Medication Therapy Management). 90 tablet 1 Home Meds: Prior to Admission medications Medication Sig Start Date End Date Taking? Authorizing Provider acetaminophen (TYLENOL EXTRA STRENGTH) 500 mg tablet Take 2 tablets (1,000 mg total) by mouth every 8 (eight) hours. 06/10/24 Nurys Odell MD amLODIPine (NORVASC) 10 mg tablet Take 1 tablet (10 mg total) by mouth daily with breakfast. Not In System Ref Prov bisacodyL (DULCOLAX) 10 mg suppository Insert 1 suppository (10 mg total) into the rectum daily as needed for constipation. 11/22/24 Vega Rivera MD calcium citrate (CALCITRATE) 200 mg (950 mg) tablet Take 2 tablets (400 mg total) by mouth in the morning and 2 tablets (400 mg total) at noon and 2 tablets (400 mg total) in the evening. Take with meals. 06/10/24 Nurys Odell MD cholecalciferol, vitamin D3, 2,000 units tablet Take 1 tablet (2,000 Units total) by mouth in the morning. 06/10/24 Nurys Odell MD cyanocobalamin, vitamin B-12, (VITAMIN B-12) 1,000 mcg tablet extended release Take 1 tablet (1 mg total) by mouth in the morning. Not In System Ref Prov DULoxetine (CYMBALTA) 60 mg capsule Take 1 capsule (60 mg total) by mouth in the morning. Not In System Ref Prov ezetimibe (ZETIA) 10 mg tablet Take 1 tablet (10 mg total) by mouth in the morning. Not In System Ref Prov ferrous sulfate 325 (65 FE) mg tablet Take 1 tablet (325 mg total) by mouth daily with breakfast. Not In System Ref Prov flecainide (TAMBOCOR) 100 mg tablet Take 1 tablet (100 mg total) by mouth every 12 (twelve) hours. 06/23/16 Not In System Ref Prov methocarbamoL (ROBAXIN) 500 mg tablet Take 1 tablet (500 mg total) by mouth in the morning and 1 tablet (500 mg total) at noon and 1 tablet (500 mg total) in the evening and 1 tablet (500 mg total) before bedtime. 06/10/24 Nurys Odell MD oxybutynin XL (DITROPAN XL) 15 mg 24 hr tablet take one tablet by mouth every morning 06/13/24 Avelina Dial APRN-KAREN pantoprazole (PROTONIX) 40 mg EC tablet Take 1 tablet (40 mg total) by mouth in the morning. 12/18/23 Nuria Rojas PA-C rosuvastatin (CRESTOR) 5 mg tablet Take 1 tablet (5 mg total) by mouth in the evening. 12/15/22 Not In System Ref Prov sennosides-docusate sodium (SENOKOT-S) 8.6-50 mg Take 2 tablets by mouth nightly. 06/10/24 Nurys Odell MD topiramate (TOPAMAX) 50 mg tablet TAKE ONE TABLET BY MOUTH TWICE A DAY 06/11/22 Javan Julien MD vit A/vit C/vit E/zinc/copper (PRESERVISION AREDS ORAL) Take 1 tablet by mouth nightly. Not In System Ref Prov warfarin (COUMADIN) 5 mg tablet Take 0.5-1 tablets (2.5-5 mg total) by mouth in the evening. or as directed by Natalie BAXTER (Medication Therapy Management). 02/23/24 Georgina Lockett [facility] aspirin 81 mg Take 81 mg by mouth daily. To stop 5 to 7 days preop 03/19/22 Not In System Ref Prov Social History: TOBACCO: reports that she has never smoked. She has never used smokeless tobacco. ETOH: reports current alcohol use of about 1.0 standard drink of alcohol per week. DRUGS: reports no history of drug use. OCCUPATION: Family History: Family History Adopted: Yes Problem Relation Age of Onset Cancer Mother Diabetes Mother Review of Systems: Constitutional: there has been no unanticipated weight loss, no change in energy level, sleep pattern, or activity level. Eyes: No visual changes or diplopia, no scleral icterus. ENT: No Headaches, hearing loss or vertigo. No sore throat Cardiovascular: See HPI Respiratory: No cough or wheezing, no sputum production, no hematemesis. Gastrointestinal: No abdominal pain, no constipation, no diarrhea, no hematochezia, no melena. Genitourinary: No dysuria, trouble voiding, or hematuria Musculoskeletal: No gait disturbance, weakness or joint complaints Integumentary: No rash or pruritis Neurological: No headache, focal muscle weakness, focal numbness or tingling. Hematologic/Lymphatic: No abnormal bruising or bleeding, blood clots. Allergic/Immunologic: No nasal congestion or hives OBJECTIVE LAST LABS: CBC: BMP: Results from last 7 days Lab Units 01/12/25 1804 SODIUM mmol/L 138 POTASSIUM mmol/L 3.8 CHLORIDE mmol/L 108 CO2 mmol/L 19* BUN mg/dL 57* CREATININE mg/dL 2.13* CALCIUM mg/dL 8.7 PT/INR: Results from last 7 days Lab Units 01/12/25 1804 01/10/25 0000 PROTIME sec 29.3* -- INR 2.6* 2.5* APTT: MAG: D Dimer: Troponin I ProBNP Lipid Panel: Lab Results Component Value Date CHOL 142 (L) 11/30/2023 TRIG 127 11/30/2023 HDL 75 11/30/2023 Liver Panel: No results found for: ALB HgA1C: Lab Results Component Value Date HGBA1C 4.9 10/06/2022 ABG: RADIOLOGY: X-ray chest 1 view Result Date: 01/12/2025 CHEST 1 VIEW HISTORY: Preop COMPARISON: 06/02/2024 FINDINGS: No focal airspace disease, pulmonary edema, pleural effusions, or pneumothorax. Normal cardiomediastinal silhouette. IMPRESSION: No acute cardiopulmonary disease. Finalized by Isaías Sykes MD on 01/12/2025 10:[address] knee left without contrast Result Date: 01/12/2025 CT KNEE LT WO CONT CLINICAL INFORMATION: Tibia fracture, eval component, pre op planning COMPARISON: None. PROCEDURE: Routine CT of the left knee was obtained without contrast. Sagittal and coronal reformats were obtained from the axial data. Automated exposure control was utilized. All CT scans at this facility use dose modulation, iterative reconstruction, and/or weight based dosing when appropriate to reduce radiation dose to as low as reasonably achievable. FINDINGS: Extensive edema and stranding present in the soft tissues. Lipohemarthrosis is suspected. Lateral soft tissue swelling is noted. Patella is intact. Surgical fixation of the femur. Nondisplaced transversely oriented fracture of the proximal tibia involving the distal tip of the tibial stem of the knee prosthesis. There is a nondisplaced fracture of the proximal fibula. There is slight angulation of the tibial fracture. IMPRESSION: * Left knee arthroplasty with proximal tibial periprosthetic fracture as well as fibular fracture. * Edema and stranding in the soft tissues, cannot exclude lipohemarthrosis. * Please see above for further details. Finalized by Roel Nino MD on 01/12/2025 9:40 PM X-ray clavicle left Result Date: 01/12/2025 XR CLAVICLE LT CLINICAL INFORMATION: Eval for fx COMPARISON: None. IMPRESSION: * No fracture. Moderate degenerative changes. Finalized by Roel Nino MD on 01/12/2025 8:53 PM X-ray shoulder left minimum 2 views Result Date: 01/12/2025 CLINICAL INFORMATION: Pain, rule out fracture TECHNIQUE: XR SHOULDER LT MIN 2 VWS 3 views left shoulder were obtained. AC joint degenerative changes noted. Humeral head is high riding. No fracture appreciated. No dislocation. IMPRESSION: AC joint degenerative changes and probable chronic rotator cuff tear. Finalized by Sathya Carroll MD on 01/12/2025 8:26 PM X-ray tibia fibula left minimum 2 views Result Date: 01/12/2025 XR TIBIA FIBULA LT MIN 2 VWS CLINICAL INFORMATION: s/p fall. Leg pain. COMPARISON: 05/17/2021. IMPRESSION: * Transverse fracture of the proximal tibia near the stem of the tibial component of the patient's knee prosthesis. Knee radiographs are recommended. * Cannot exclude proximal fibular fracture. * Surgical fixation of the distal femur with fracture in this region again noted. * Osteopenia and degenerative changes present. * Soft tissue swelling. Finalized by Roel Nino MD on 01/12/2025 6:57 PM X-ray femur left 2+ views Result Date: 01/12/2025 XR FEMUR LT 2+ VIEWS CLINICAL INFORMATION: s/p fall. Leg pain. COMPARISON: 11/15/2024. IMPRESSION: * Soft tissue swelling overlying the proximal femur. Rounded density measuring 8.1 cm, hematoma or other process is not excluded. * Surgical fixation of the distal femur with anatomic alignment of fracture, knee arthroplasty present. No change in alignment. Finalized by Roel Nino MD on 01/12/2025 6:56 PM X-ray hip left 2-3 views with or without pelvis Result Date: 01/12/2025 CLINICAL INFORMATION: s/p fall TECHNIQUE: XR HIP LT 2-3 VIEWS W OR WO PELVIS 3 views left hip were obtained. The exam is limited. Femoral neck appears intact. No intratrochanteric abnormality noted to within the limits of this exam. Pelvic ring unremarkable. Crosstable lateral view is nondiagnostic. IMPRESSION: No acute findings. Finalized by Sathya Carroll MD on 01/12/2025 6:[address] brain without contrast Result Date: 01/12/2025 CLINICAL INFORMATION: s/p fall with head injury COMPARISON: 10/05/2022. PROCEDURE: Routine CT Head obtained without contrast. All CT scans at this facility use dose modulation, iterative reconstruction, and/or weight based dosing when appropriate to reduce radiation dose to as low as reasonably achievable. FINDINGS: No acute intracranial hemorrhage. No mass effect or midline shift. No extra-axial fluid collections. The ventricles and sulci are prominent consistent with global atrophy. Low-attenuation areas identified in the periventricular white matter consistent with microvascular ischemia. No depressed calvarial fracture. IMPRESSION: * No acute intracranial findings by CT. Finalized by Roel Nino MD on 01/12/2025 6:32 PM PHYSICAL EXAM Admission Weight: No intake/output data recorded. Weight change: Wt Readings from Last 3 Encounters: 12/14/24 95.3 kg (210 lb 1.6 oz) 11/29/24 95.3 kg (210 lb 1.6 oz) 11/17/24 95.3 kg (210 lb 1.6 oz) Vitals: Vitals: 01/12/25 2130 01/12/25 2200 01/12/25 2245 01/13/25 0015 BP: 124/75 Pulse: 94 99 80 Resp: 12 15 Temp: TempSrc: SpO2: 94% 94% 92% Admit Weight Last 3 Weights There were no vitals filed for this visit. There is no height or weight on file to calculate BMI. INTAKE/OUTPUT No intake/output data recorded. Intake/Output Summary (Last 24 hours) at 01/13/2025 0128 Last data filed at 01/12/2025 2216 Gross per 24 hour Intake 1000.4 ml Output -- Net 1000.4 ml EKG: No results found. ECHO (Last) Echo complete W/O contrast Result Date: 08/10/2023 Left Ventricle: There is severe focal basal [...] The aortic root is normal in size. General appearance: Alert oriented and cooperative, in no acute distress Skin: Warm and dry to touch Head: Normocephalic, without obvious abnormality, atraumatic Eyes: Conjunctivae unremarkable, EOMs intact, sclera non icteric Neck: No JVD, no carotid bruit, neck supple, trachea midline Lungs: Clear to ausculation bilaterally, no use of accessory muscles. Heart:: RRR with normal S1 and S2 , no murmurs and no gallops. Abdomen: Soft, non-tender, bowel sounds normal Extremities: Chronic lymphedema, non pitting Neurologic: Oriented to time, person and place, affect appropriate, no focal/major motor or sensory defects noted Psychiatric: Appropriate mood, memory and judgment ASSESSMENT Preoperative cardiovascular risk assessment Chronic HFpEF - normal EF TTE 07/2023 Paroxysmal atrial fibrillation on home warfarin Low risk nuclear stress test 07/2023 left femur fracture PLAN -patient stable at the time she was seen. Lying comfortably flat, no signs of fluid overload. -low to moderate risk for perioperative cardiovascular complications. Risk non prohibitive. Can hold warfarin until cleared by surgical team. - can hold home amlodipine for now, given controled BP. -will follow-up. CAMILLE WHITE MD This note was completed using a voice cartographic aide system. Every effort was made to ensure accuracy. However, inadvertent computerized cartographic aide errors may be present. [employer] Work Phone: 01-12-2025 Consult note Formatting of th is note is different from the original. Orthopaedic surgery consultation note This obese osteoporotic woman with previous fragility fractures (periprosthetic fracture around left total knee arthroplasty) now presents with a new fragility fracture around her total knee. She has recently had a polyethylene exchange by my partner Dr. Nafisa Navarro on 11/17/2024. This patient lives alone at home. She is from the [place] [facility]. She was using a walker when she fell and landed on her left leg. She had extreme pain and was brought to our emergency room. The patient has a rather extensive past medical history but most pertinent from an orthopedic standpoint are factors that are contributing to poor bone quality including previous gastric bypass as well as chronic kidney disease. Past Medical History: Diagnosis Date Anemia iron deficiency Arthritis Asthma Atrial fibrillation Atrial fibrillation (HCC) [I48.91] Bilateral shoulder pain Bladder disorder Cataract Cervical disc disorder CKD (chronic kidney disease) renal insuff/follows with Dr Camacho never on dialysis Dental disease chipped Depression Depression with anxiety Disc disorder cervical, thoracic, lumbosacral Dislocation of left knee, initial encounter 11/16/2024 Dry eye syndrome Edema legs Falls frequently Gastrointestinal hemorrhage Added automatically from request for surgery [id number] GERD (gastroesophageal reflux disease) Giant cell arteritis (CMS-HCC) Hyperlipidemia Hypertension Low back pain Lumbar disc disorder LVH (left ventricular hypertrophy) AND DIASTOLIC DYSFUNCTION Lymphedema Macular drusen, bilateral Migraine Mononucleosis Neuropathy Obesity h/o bariatric surgery 01/2018, lost >100# Osteoarthritis of cervical spine Posterior vitreous detachment of right eye Presbyopia Prolonged Q-T interval on ECG 12/2018 Rotator cuff arthropathy of right shoulder Added automatically from request for surgery [id number] Sleep apnea uses c pap/states doesn`t use every night Status post bariatric surgery Thoracic disc disorder Tinnitus Urinary incontinence Urinary urgency UTI (urinary tract infection) Visual impairment glasses Vitreous floaters of right eye Vitreous syneresis of left eye White matter abnormality on MRI of brain Past Surgical History: Procedure Laterality Date BIOPSY ARTERY TEMPORAL Bilateral 07/28/2018 Performed by Jany Mesa MD at [facility] BIOPSY MUSCLE LOWER EXTREMITY Right 04/05/2019 Performed by Zaida Blue MD at [facility] COLONOSCOPY Left Lateral 10/07/2022 Performed by Gissell Ye MD at [facility] DILATION AND CURETTAGE OF UTERUS 2016 EGD Left Lateral 10/07/2022 Performed by Gissell Ye MD at [facility] GALLBLADDER SURGERY s HYSTEROSCOPY 2016 LAPAROSCOPIC SLEEVE GASTRECTOMY/ CLOSURE DIAPHRAGMATIC CRUA N/A 07/28/2018 Performed by Zaida Gil MD at [facility] NASAL SEPTUM SURGERY 1989`s OPEN REDUCTION INTERNAL FIXATION FEMUR Left 06/03/2024 Performed by Rafat Sepulveda MD at [facility] REPLACEMENT TOTAL KNEE Bilateral 09/2014 REVISION TOTAL JOINT KNEE POLY EXCHANGE Left 11/17/2024 Performed by Nafisa Navarro MD at [facility] TONSILLECTOMY x 2 as a child and second time in her 40`s Pertinent laboratory studies: CBC is pending today. Previous hemoglobin has been in the range of 9. She has an INR today that is 2.6. Her glomerular filtration rate is 24. Physical examination: The patient is a pleasant obese woman who is lying on a stretcher in the emergency room. She is awake alert and oriented. She is answering all questions well. Her vital signs. Are stable BP (!) 64/48 Pulse 94 Temp 36.4 C (97.6 F) (Oral) Resp 16 SpO2 94% Head neck exam is unremarkable. Chest is clinically clear. Abdomen is obese and soft. Focused examination of her left leg shows healed previous anterior incision from her polyethylene exchange. She is moving her left foot and ankle well. Soft tissues about her left leg are intact but her left leg is very large. She is moving her left foot and ankle well. Pertinent radiographic studies: The patient has a left total knee arthroplasty in place. She has a fracture clearly visible on CT that is adjacent to her total knee stem. She was a ipsilateral left locking plate in place. The plate in his in the proximal 3rd of the shaft. Her bone structure is visibly osteopenic in her femur and her tibia. Impression: 1. Left proximal tibial periprosthetic fracture 2. Osteoporosis with fragility fracture 3. Chronic anemia 4. Metabolic bone disease from gastric bypass and chronic renal failure 5. Coumadin induced coagulopathy Recommendations: I do think this patient would do better with reduction and fixation of her fracture. I would likely use a locking plate with cement fixation that would allow for early weight-bearing. I also I had a long discussion with her about her bone quality and the fact that she is at high risk for a felicitas implant fracture in her femur. At some future time I would likely recommend a prophylactic fixation of her left femur, but I think it is too much to do all at 1 setting. At this point her INR and into more normal range, and have appropriate medical clearance for possible surgery tomorrow. If she can not be cleared for tomorrow I will put her on my schedule for Thursday. I had a long conversation with this patient. She was agreeable to surgery. Renan Delaney MD [facility] 01-12-2025 Miscellaneous Notes Contract: NILE Iglesias @ [facility] is calling for pre op surgical clearance. Security Supervisor sent a secure chat to STALIN Ramos advising him to reach out to the facility documented in this encounter [facility] 01-12-2025 Telephone encounter Note Contract: NILE Iglesias @ [facility] is calling for pre op surgical clearance. [facility] 01-12-2025 Telephone encounter Note Security Supervisor sent a secure chat to STALIN Ramos advising him to reach out to the facility [facility] 01-12-2025 History and physical note Images from the original note were not included. [facility] History & Physical Examination H&P Department of Internal Medicine 01/12/2025 Patient Name: Keila Allen : 1955 Chief Complaint Patient presents with Fall Leg Pain HPI Keila Allen is a 69 y.o. female with medical history significant for atrial fibrillation, HTN, CKD, asthma, frequent falls, who presented to the ER for evaluation of left knee pain after a fall. Patient states that she fell while walking outside with her walker. States she slipped and fell on her ramp. Patient had immediate pain in her left knee area and was unable to stand. Patient has had 2 left leg fractures and surgeries in the last year. Work up in the ER revealed proximal tibial periprosthetic fracture as well as fibular fracture. Patient was in her routine state of health prior to fall. She denies any chest pain at rest or with exertion. Past Medical History: Diagnosis Date Anemia iron deficiency Arthritis Asthma Atrial fibrillation Atrial fibrillation (HCC) [I48.91] Bilateral shoulder pain Bladder disorder Cataract Cervical disc disorder CKD (chronic kidney disease) renal insuff/follows with Dr Camacho never on dialysis Dental disease chipped Depression Depression with anxiety Disc disorder cervical, thoracic, lumbosacral Dislocation of left knee, initial encounter 11/16/2024 Dry eye syndrome Edema legs Falls frequently Gastrointestinal hemorrhage Added automatically from request for surgery [id number] GERD (gastroesophageal reflux disease) Giant cell arteritis ([facility]-HCC) Hyperlipidemia Hypertension Low back pain Lumbar disc disorder LVH (left ventricular hypertrophy) AND DIASTOLIC DYSFUNCTION Lymphedema Macular drusen, bilateral Migraine Mononucleosis Neuropathy Obesity h/o bariatric surgery 01/2018, lost >100# Osteoarthritis of cervical spine Posterior vitreous detachment of right eye Presbyopia Prolonged Q-T interval on ECG 12/2018 Rotator cuff arthropathy of right shoulder Added automatically from request for surgery [id number] Sleep apnea uses c pap/states doesn`t use every night Status post bariatric surgery Thoracic disc disorder Tinnitus Urinary incontinence Urinary urgency UTI (urinary tract infection) Visual impairment glasses Vitreous floaters of right eye Vitreous syneresis of left eye White matter abnormality on MRI of brain Past Surgical History: Procedure Laterality Date BIOPSY ARTERY TEMPORAL Bilateral 07/28/2018 Performed by Jany Mesa MD at [facility] BIOPSY MUSCLE LOWER EXTREMITY Right 04/05/2019 Performed by Zaida Blue MD at [facility] COLONOSCOPY Left Lateral 10/07/2022 Performed by Gissell Ye MD at [facility] DILATION AND CURETTAGE OF UTERUS 2016 EGD Left Lateral 10/07/2022 Performed by Gissell Ye MD at [facility] GALLBLADDER SURGERY 1979`s HYSTEROSCOPY 2016 LAPAROSCOPIC SLEEVE GASTRECTOMY/ CLOSURE DIAPHRAGMATIC CRUA N/A 07/28/2018 Performed by Zaida Gil MD at [facility] NASAL SEPTUM SURGERY 1989`s OPEN REDUCTION INTERNAL FIXATION FEMUR Left 06/03/2024 Performed by Rafat Sepulveda MD at [facility] REPLACEMENT TOTAL KNEE Bilateral 09/2014 REVISION TOTAL JOINT KNEE POLY EXCHANGE Left 11/17/2024 Performed by Nafisa Navarro MD at [facility] TONSILLECTOMY x 2 as a child and second time in her 40`s Allergy: Cephalexin, Dicloxacillin sodium, Lipitor [atorvastatin], Nifedipine, Penicillin g potassium, and Penicillins Prior to Admission medications Medication Sig Start Date End Date Taking? Authorizing Provider acetaminophen (TYLENOL EXTRA STRENGTH) 500 mg tablet Take 2 tablets (1,000 mg total) by mouth every 8 (eight) hours. 06/10/24 Nurys Odell MD amLODIPine (NORVASC) 10 mg tablet Take 1 tablet (10 mg total) by mouth daily with breakfast. Not In System Ref Prov bisacodyL (DULCOLAX) 10 mg suppository Insert 1 suppository (10 mg total) into the rectum daily as needed for constipation. 11/22/24 Vega Rivera MD calcium citrate (CALCITRATE) 200 mg (950 mg) tablet Take 2 tablets (400 mg total) by mouth in the morning and 2 tablets (400 mg total) at noon and 2 tablets (400 mg total) in the evening. Take with meals. 06/10/24 Nurys Odell MD cholecalciferol, vitamin D3, 2,000 units tablet Take 1 tablet (2,000 Units total) by mouth in the morning. 06/10/24 Nurys Odell MD cyanocobalamin, vitamin B-12, (VITAMIN B-12) 1,000 mcg tablet extended release Take 1 tablet (1 mg total) by mouth in the morning. Not In System Ref Prov DULoxetine (CYMBALTA) 60 mg capsule Take 1 capsule (60 mg total) by mouth in the morning. Not In System Ref Prov ezetimibe (ZETIA) 10 mg tablet Take 1 tablet (10 mg total) by mouth in the morning. Not In System Ref Prov ferrous sulfate 325 (65 FE) mg tablet Take 1 tablet (325 mg total) by mouth daily with breakfast. Not In System Ref Prov flecainide (TAMBOCOR) 100 mg tablet Take 1 tablet (100 mg total) by mouth every 12 (twelve) hours. 06/23/16 Not In System Ref Prov methocarbamoL (ROBAXIN) 500 mg tablet Take 1 tablet (500 mg total) by mouth in the morning and 1 tablet (500 mg total) at noon and 1 tablet (500 mg total) in the evening and 1 tablet (500 mg total) before bedtime. 06/10/24 Nurys Odell MD oxybutynin XL (DITROPAN XL) 15 mg 24 hr tablet take one tablet by mouth every morning 06/13/24 Avelina Dial APRN-KAREN pantoprazole (PROTONIX) 40 mg EC tablet Take 1 tablet (40 mg total) by mouth in the morning. 12/18/23 Nuria Rojas PA-C rosuvastatin (CRESTOR) 5 mg tablet Take 1 tablet (5 mg total) by mouth in the evening. 12/15/22 Not In System Ref Prov sennosides-docusate sodium (SENOKOT-S) 8.6-50 mg Take 2 tablets by mouth nightly. 06/10/24 Nurys Odell MD topiramate (TOPAMAX) 50 mg tablet TAKE ONE TABLET BY MOUTH TWICE A DAY 06/11/22 Javan Julien MD vit A/vit C/vit E/zinc/copper (PRESERVISION AREDS ORAL) Take 1 tablet by mouth nightly. Not In System Ref Prov warfarin (COUMADIN) 5 mg tablet Take 0.5-1 tablets (2.5-5 mg total) by mouth in the evening. or [facility] ([facility] Management). 02/23/24 Georgina Lockett, [facility] aspirin 81 mg Take 81 mg by mouth daily. To stop 5 to 7 days preop 03/19/22 Not In System Ref Prov reports that she has never smoked. She has never used smokeless tobacco. She reports current alcohol use of about 1.0 standard drink of alcohol per week. She reports that she does not use drugs. Family History Adopted: Yes Problem Relation Age of Onset Cancer Mother Diabetes Mother Review of Systems Constitutional: Negative for fever, chills, diaphoresis and fatigue. HENT: Negative for rhinorrhea and vision change. Eyes: Negative for double vision and visual disturbance. Respiratory: Negative for cough, shortness of breath and wheezing. Cardiovascular: Negative for chest pain, palpitations and leg swelling. Gastrointestinal: Negative for nausea, vomiting, abdominal pain. Genitourinary: Negative for dysuria, urgency, frequency, hematuria, flank pain, decreased urine volume and difficulty urinating. Musculoskeletal: Positive for myalgias, joint swelling and arthralgias of the left knee. Skin: Negative for pallor, rash and wound. Neurological: Negative for dizziness, syncope, weakness, light-headedness, numbness and headaches. Psychiatric/Behavioral: Negative for behavioral problems and agitation. Exam BP 113/61 Pulse 80 Temp 36.4 C (97.6 F) (Oral) Resp 18 SpO2 96% Constitutional: Oriented to person, place and time. Appears well-developed and well-nourished. No distress. HENT: Normocephalic and atraumatic. Nose normal. Eyes: Conjunctivae and EOM are normal. Pupils are equal, round, and reactive to light. No scleral icterus. Neck: Neck supple. No stridor and no tracheal deviation present. Cardiovascular: Normal rate, regular rhythm, normal heart sounds and intact distal pulses. No murmur heard. No JVD. Pulmonary/Chest: Effort normal and breath sounds normal. No respiratory distress. No wheezes. No rales. No tenderness. Abdominal: Soft. Bowel sounds are normal. No distension and no mass. There is no tenderness. Musculoskeletal: Left knee in immobilizer. Distal pulses intact. Lymph: Chronic bilateral LE lymphedema noted. Neurological: Alert and oriented to person, place, and time. No cranial nerve deficit. Normal muscle tone. Coordination normal. Strength 5/5 in all extremities. Skin: Skin is warm and dry. No rash noted. Non diaphoretic. No erythema. No pallor. Psychiatric: Normal mood and affect. Behavior is normal. Judgment and thought content normal. No intake or output data in the 24 hours ending 01/12/252042 Labs Recent Results (from the past 48 hours) Basic Metabolic Panel Collection Time: 01/12/25 6:04 PM Result Value Ref Range Sodium 138 134 - 146 mmol/L Potassium, Bld 3.8 3.5 - 5.0 mmol/L Chloride 108 98 - 109 mmol/L CO2 19 (L) 22 - 32 mmol/L Anion gap 11 5 - 15 mmol/L BUN 57 (H) 5 - 27 mg/dL Creatinine 2.13 (H) 0.40 - 1.00 mg/dL Glucose 103 (H) 65 - 99 mg/dL Calcium 8.7 8.5 - 10.5 mg/dL eGFR (CKD-EPI)non-race dependent 24 (L) >59 ml/min/1.73sq.m Protime & INR Collection Time: 01/12/25 6:04 PM Result Value Ref Range Protime 29.3 (H) 9.8 - 13.2 sec Inr 2.6 (H) 0.9 - 1.2 APTT Collection Time: 01/12/25 6:04 PM Result Value Ref Range aPTT 23 (L) 26 - 37 sec Imaging X-ray shoulder left minimum 2 views Result Date: 01/12/2025 CLINICAL INFORMATION: Pain, rule out fracture TECHNIQUE: XR SHOULDER LT MIN 2 VWS 3 views left shoulder were obtained. AC joint degenerative changes noted. Humeral head is high riding. No fracture appreciated. No dislocation. IMPRESSION: AC joint degenerative changes and probable chronic rotator cuff tear. Finalized by Sathya Carroll MD on 01/12/2025 8:26 PM X-ray tibia fibula left minimum 2 views Result Date: 01/12/2025 XR TIBIA FIBULA LT MIN 2 VWS CLINICAL INFORMATION: s/p fall. Leg pain. COMPARISON: 05/17/2021. IMPRESSION: * Transverse fracture of the proximal tibia near the stem of the tibial component of the patient's knee prosthesis. Knee radiographs are recommended. * Cannot exclude proximal fibular fracture. * Surgical fixation of the distal femur with fracture in this region again noted. * Osteopenia and degenerative changes present. * Soft tissue swelling. Finalized by Roel Nino MD on 01/12/2025 6:57 PM X-ray femur left 2+ views Result Date: 01/12/2025 XR FEMUR LT 2+ VIEWS CLINICAL INFORMATION: s/p fall. Leg pain. COMPARISON: 11/15/2024. IMPRESSION: * Soft tissue swelling overlying the proximal femur. Rounded density measuring 8.1 cm, hematoma or other process is not excluded. * Surgical fixation of the distal femur with anatomic alignment of fracture, knee arthroplasty present. No change in alignment. Finalized by Roel Nino MD on 01/12/2025 6:56 PM X-ray hip left 2-3 views with or without pelvis Result Date: 01/12/2025 CLINICAL INFORMATION: s/p fall TECHNIQUE: XR HIP LT 2-3 VIEWS W OR WO PELVIS 3 views left hip were obtained. The exam is limited. Femoral neck appears intact. No intratrochanteric abnormality noted to within the limits of this exam. Pelvic ring unremarkable. Crosstable lateral view is nondiagnostic. IMPRESSION: No acute findings. Finalized by Sathya Carroll MD on 01/12/2025 6:[address] brain without contrast Result Date: 01/12/2025 CLINICAL INFORMATION: s/p fall with head injury COMPARISON: 10/05/2022. PROCEDURE: Routine CT Head obtained without contrast. All CT scans at this facility use dose modulation, iterative reconstruction, and/or weight based dosing when appropriate to reduce radiation dose to as low as reasonably achievable. FINDINGS: No acute intracranial hemorrhage. No mass effect or midline shift. No extra-axial fluid collections. The ventricles and sulci are prominent consistent with global atrophy. Low-attenuation areas identified in the periventricular white matter consistent with microvascular ischemia. No depressed calvarial fracture. IMPRESSION: * No acute intracranial findings by CT. Finalized by Roel Nino MD on 01/12/2025 6:32 PM Principal Problem: Closed fracture of proximal end of left tibia, unspecified fracture morphology, initial encounter Assessment and Plan 1. Left proximal tibial periprosthetic fracture and fibular fracture s/p fall NPO after midnight Discussed with surgical team - requested Cardiology consultation for cardiac clearance Vitamin K to reverse INR 2. Atrial fibrillation on warfarin INR 2.6, recheck in AM 3. Osteoporosis S/p multiple fragility fractures 4. JUDE on CKD Gentle IV hydration overnight Monitor for retention, bladder scan prn 5. YUNG 6. History of sleeve gastrectomy 7. Chronic LE lymphedema 8. HLD 9. Obesity DVT prophylaxis with with SCD's Full code Electronically signed by: Richy Montoya DO This note was created with the assistance of a speech-recognition program. Although the intention is to generate a document that actually reflects the content of the visit, no guarantees can be provided that every mistake has been identified and corrected by editing. [employer] Work Phone: 01-12-2025 History and physical note Images from the original note were not included. [facility] Hospitalists History & Physical Examination H&P Department of Internal Medicine 01/12/2025 Patient Name: Keila Allen : 1955 Chief Complaint Patient presents with Fall Leg Pain HPI Keila Allen is a 69 y.o. female with medical history significant for atrial fibrillation, HTN, CKD, asthma, frequent falls, who presented to the ER for evaluation of left knee pain after a fall. Patient states that she fell while walking outside with her walker. States she slipped and fell on her ramp. Patient had immediate pain in her left knee area and was unable to stand. Patient has had 2 left leg fractures and surgeries in the last year. Work up in the ER revealed proximal tibial periprosthetic fracture as well as fibular fracture. Patient was in her routine state of health prior to fall. She denies any chest pain at rest or with exertion. Past Medical History: Diagnosis Date Anemia iron deficiency Arthritis Asthma Atrial fibrillation Atrial fibrillation (HCC) [I48.91] Bilateral shoulder pain Bladder disorder Cataract Cervical disc disorder CKD (chronic kidney disease) renal insuff/follows with Dr Camacho never on dialysis Dental disease chipped Depression Depression with anxiety Disc disorder cervical, thoracic, lumbosacral Dislocation of left knee, initial encounter 11/16/2024 Dry eye syndrome Edema legs Falls frequently Gastrointestinal hemorrhage Added automatically from request for surgery [id number] GERD (gastroesophageal reflux disease) Giant cell arteritis (CMS-HCC) Hyperlipidemia Hypertension Low back pain Lumbar disc disorder LVH (left ventricular hypertrophy) AND DIASTOLIC DYSFUNCTION Lymphedema Macular drusen, bilateral Migraine Mononucleosis Neuropathy Obesity h/o bariatric surgery 01/2018, lost >100# Osteoarthritis of cervical spine Posterior vitreous detachment of right eye Presbyopia Prolonged Q-T interval on ECG 12/2018 Rotator cuff arthropathy of right shoulder Added automatically from request for surgery [id number] Sleep apnea uses c pap/states doesn`t use every night Status post bariatric surgery Thoracic disc disorder Tinnitus Urinary incontinence Urinary urgency UTI (urinary tract infection) Visual impairment glasses Vitreous floaters of right eye Vitreous syneresis of left eye White matter abnormality on MRI of brain Past Surgical History: Procedure Laterality Date BIOPSY ARTERY TEMPORAL Bilateral 07/28/2018 Performed by Jany Mesa MD at [facility] BIOPSY MUSCLE LOWER EXTREMITY Right 04/05/2019 Performed by Zaida Blue MD at [facility] COLONOSCOPY Left Lateral 10/07/2022 Performed by Gissell Ye MD at [facility] DILATION AND CURETTAGE OF UTERUS 2015 EGD Left Lateral 10/07/2022 Performed by Gissell Ye MD at [facility] GALLBLADDER SURGERY HYSTEROSCOPY 2015 LAPAROSCOPIC SLEEVE GASTRECTOMY/ CLOSURE DIAPHRAGMATIC CRUA N/A 07/28/2018 Performed by Zaida Gil MD at [facility] NASAL SEPTUM SURGERY 1989` OPEN REDUCTION INTERNAL FIXATION FEMUR Left 06/03/2024 Performed by Rafat Sepulveda MD at [facility] REPLACEMENT TOTAL KNEE Bilateral 09/2014 REVISION TOTAL JOINT KNEE POLY EXCHANGE Left 11/17/2024 Performed by Nafisa Navarro MD at [facility] TONSILLECTOMY x 2 as a child and second time in her 40`s Allergy: Cephalexin, Dicloxacillin sodium, Lipitor [atorvastatin], Nifedipine, Penicillin g potassium, and Penicillins Prior to Admission medications Medication Sig Start Date End Date Taking? Authorizing Provider acetaminophen (TYLENOL EXTRA STRENGTH) 500 mg tablet Take 2 tablets (1,000 mg total) by mouth every 8 (eight) hours. 06/10/24 Nurys Odell MD amLODIPine (NORVASC) 10 mg tablet Take 1 tablet (10 mg total) by mouth daily with breakfast. Not In System Ref Prov bisacodyL (DULCOLAX) 10 mg suppository Insert 1 suppository (10 mg total) into the rectum daily as needed for constipation. 11/22/24 Vega Rivera MD calcium citrate (CALCITRATE) 200 mg (950 mg) tablet Take 2 tablets (400 mg total) by mouth in the morning and 2 tablets (400 mg total) at noon and 2 tablets (400 mg total) in the evening. Take with meals. 06/10/24 Nurys Odell MD cholecalciferol, vitamin D3, 2,000 units tablet Take 1 tablet (2,000 Units total) by mouth in the morning. 06/10/24 Nurys Odell MD cyanocobalamin, vitamin B-12, (VITAMIN B-12) 1,000 mcg tablet extended release Take 1 tablet (1 mg total) by mouth in the morning. Not In System Ref Prov DULoxetine (CYMBALTA) 60 mg capsule Take 1 capsule (60 mg total) by mouth in the morning. Not In System Ref Prov ezetimibe (ZETIA) 10 mg tablet Take 1 tablet (10 mg total) by mouth in the morning. Not In System Ref Prov ferrous sulfate 325 (65 FE) mg tablet Take 1 tablet (325 mg total) by mouth daily with breakfast. Not In System Ref Prov flecainide (TAMBOCOR) 100 mg tablet Take 1 tablet (100 mg total) by mouth every 12 (twelve) hours. 06/23/16 Not In System Ref Prov methocarbamoL (ROBAXIN) 500 mg tablet Take 1 tablet (500 mg total) by mouth in the morning and 1 tablet (500 mg total) at noon and 1 tablet (500 mg total) in the evening and 1 tablet (500 mg total) before bedtime. 06/10/24 Nurys Odell MD oxybutynin XL (DITROPAN XL) 15 mg 24 hr tablet take one tablet by mouth every morning 06/13/24 Avelina Dial APRN-DISTRICT SERVICE MANAGER pantoprazole (PROTONIX) 40 mg EC tablet Take 1 tablet (40 mg total) by mouth in the morning. 12/18/23 Nuria Rojas PA-C rosuvastatin (CRESTOR) 5 mg tablet Take 1 tablet (5 mg total) by mouth in the evening. 12/15/22 Not In System Ref Prov sennosides-docusate sodium (SENOKOT-S) 8.6-50 mg Take 2 tablets by mouth nightly. 06/10/24 Nurys Odell MD topiramate (TOPAMAX) 50 mg tablet TAKE ONE TABLET BY MOUTH TWICE A DAY 06/11/22 Javan Julien MD vit A/vit C/vit E/zinc/copper (PRESERVISION AREDS ORAL) Take 1 tablet by mouth nightly. Not In System Ref Prov warfarin (COUMADIN) 5 mg tablet Take 0.5-1 tablets (2.5-5 mg total) by mouth in the evening. or as directed by Natalie MT (Medication Therapy Management). 02/23/24 Georgina Lockett [facility] aspirin 81 mg Take 81 mg by mouth daily. To stop 5 to 7 days preop 03/19/22 Not In System Ref Prov reports that she has never smoked. She has never used smokeless tobacco. She reports current alcohol use of about 1.0 standard drink of alcohol per week. She reports that she does not use drugs. Family History Adopted: Yes Problem Relation Age of Onset Cancer Mother Diabetes Mother Review of Systems Constitutional: Negative for fever, chills, diaphoresis and fatigue. HENT: Negative for rhinorrhea and vision change. Eyes: Negative for double vision and visual disturbance. Respiratory: Negative for cough, shortness of breath and wheezing. Cardiovascular: Negative for chest pain, palpitations and leg swelling. Gastrointestinal: Negative for nausea, vomiting, abdominal pain. Genitourinary: Negative for dysuria, urgency, frequency, hematuria, flank pain, decreased urine volume and difficulty urinating. Musculoskeletal: Positive for myalgias, joint swelling and arthralgias of the left knee. Skin: Negative for pallor, rash and wound. Neurological: Negative for dizziness, syncope, weakness, light-headedness, numbness and headaches. Psychiatric/Behavioral: Negative for behavioral problems and agitation. Exam BP 113/61 Pulse 80 Temp 36.4 C (97.6 F) (Oral) Resp 18 SpO2 96% Constitutional: Oriented to person, place and time. Appears well-developed and well-nourished. No distress. HENT: Normocephalic and atraumatic. Nose normal. Eyes: Conjunctivae and EOM are normal. Pupils are equal, round, and reactive to light. No scleral icterus. Neck: Neck supple. No stridor and no tracheal deviation present. Cardiovascular: Normal rate, regular rhythm, normal heart sounds and intact distal pulses. No murmur heard. No JVD. Pulmonary/Chest: Effort normal and breath sounds normal. No respiratory distress. No wheezes. No rales. No tenderness. Abdominal: Soft. Bowel sounds are normal. No distension and no mass. There is no tenderness. Musculoskeletal: Left knee in immobilizer. Distal pulses intact. Lymph: Chronic bilateral LE lymphedema noted. Neurological: Alert and oriented to person, place, and time. No cranial nerve deficit. Normal muscle tone. Coordination normal. Strength 5/5 in all extremities. Skin: Skin is warm and dry. No rash noted. Non diaphoretic. No erythema. No pallor. Psychiatric: Normal mood and affect. Behavior is normal. Judgment and thought content normal. No intake or output data in the 24 hours ending 01/12/252042 Labs Recent Results (from the past 48 hours) Basic Metabolic Panel Collection Time: 01/12/25 6:04 PM Result Value Ref Range Sodium 138 134 - 146 mmol/L Potassium, Bld 3.8 3.5 - 5.0 mmol/L Chloride 108 98 - 109 mmol/L CO2 19 (L) 22 - 32 mmol/L Anion gap 11 5 - 15 mmol/L BUN 57 (H) 5 - 27 mg/dL Creatinine 2.13 (H) 0.40 - 1.00 mg/dL Glucose 103 (H) 65 - 99 mg/dL Calcium 8.7 8.5 - 10.5 mg/dL eGFR (CKD-EPI)non-race dependent 24 (L) >59 ml/min/1.73sq.m Protime & INR Collection Time: 01/12/25 6:04 PM Result Value Ref Range Protime 29.3 (H) 9.8 - 13.2 sec Inr 2.6 (H) 0.9 - 1.2 APTT Collection Time: 01/12/25 6:04 PM Result Value Ref Range aPTT 23 (L) 26 - 37 sec Imaging X-ray shoulder left minimum 2 views Result Date: 01/12/2025 CLINICAL INFORMATION: Pain, rule out fracture TECHNIQUE: XR SHOULDER LT MIN 2 VWS 3 views left shoulder were obtained. AC joint degenerative changes noted. Humeral head is high riding. No fracture appreciated. No dislocation. IMPRESSION: AC joint degenerative changes and probable chronic rotator cuff tear. Finalized by Sathya Carroll MD on 01/12/2025 8:26 PM X-ray tibia fibula left minimum 2 views Result Date: 01/12/2025 XR TIBIA FIBULA LT MIN 2 VWS CLINICAL INFORMATION: s/p fall. Leg pain. COMPARISON: 05/17/2021. IMPRESSION: * Transverse fracture of the proximal tibia near the stem of the tibial component of the patient's knee prosthesis. Knee radiographs are recommended. * Cannot exclude proximal fibular fracture. * Surgical fixation of the distal femur with fracture in this region again noted. * Osteopenia and degenerative changes present. * Soft tissue swelling. Finalized by Roel Nino MD on 01/12/2025 6:57 PM X-ray femur left 2+ views Result Date: 01/12/2025 XR FEMUR LT 2+ VIEWS CLINICAL INFORMATION: s/p fall. Leg pain. COMPARISON: 11/15/2024. IMPRESSION: * Soft tissue swelling overlying the proximal femur. Rounded density measuring 8.1 cm, hematoma or other process is not excluded. * Surgical fixation of the distal femur with anatomic alignment of fracture, knee arthroplasty present. No change in alignment. Finalized by Roel Nino MD on 01/12/2025 6:56 PM X-ray hip left 2-3 views with or without pelvis Result Date: 01/12/2025 CLINICAL INFORMATION: s/p fall TECHNIQUE: XR HIP LT 2-3 VIEWS W OR WO PELVIS 3 views left hip were obtained. The exam is limited. Femoral neck appears intact. No intratrochanteric abnormality noted to within the limits of this exam. Pelvic ring unremarkable. Crosstable lateral view is nondiagnostic. IMPRESSION: No acute findings. Finalized by Sathya Carroll MD on 01/12/2025 6:[address] brain without contrast Result Date: 01/12/2025 CLINICAL INFORMATION: s/p fall with head injury COMPARISON: 10/05/2022. PROCEDURE: Routine CT Head obtained without contrast. All CT scans at this facility use dose modulation, iterative reconstruction, and/or weight based dosing when appropriate to reduce radiation dose to as low as reasonably achievable. FINDINGS: No acute intracranial hemorrhage. No mass effect or midline shift. No extra-axial fluid collections. The ventricles and sulci are prominent consistent with global atrophy. Low-attenuation areas identified in the periventricular white matter consistent with microvascular ischemia. No depressed calvarial fracture. IMPRESSION: * No acute intracranial findings by CT. Finalized by Roel Nino MD on 01/12/2025 6:32 PM Principal Problem: Closed fracture of proximal end of left tibia, unspecified fracture morphology, initial encounter Assessment and Plan 1. Left proximal tibial periprosthetic fracture and fibular fracture s/p fall NPO after midnight Discussed with surgical team - requested Cardiology consultation for cardiac clearance Vitamin K to reverse INR 2. Atrial fibrillation on warfarin INR 2.6, recheck in AM 3. Osteoporosis S/p multiple fragility fractures 4. JUDE on CKD Gentle IV hydration overnight Monitor for retention, bladder scan prn 5. YUNG 6. History of sleeve gastrectomy 7. Chronic LE lymphedema 8. HLD 9. Obesity DVT prophylaxis with with SCD's Full code Electronically signed by: Richy Montoya DO This note was created with the assistance of a speech-recognition program. Although the intention is to generate a document that actually reflects the content of the visit, no guarantees can be provided that every mistake has been identified and corrected by editing. documented in this encounter [facility] 01-12-2025 Procedure note Procedure Procedures Maira Farnsworth 01/12/252023 ALEXANDRU Altamirano 01/17/25107 [facility] 01-12-2025 Emergency department Triage note Pt states that she was going down a ramp and fell and landed on her left hip and is having left leg pain. Pt states she hit her head but denies LOC. 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 [facility] 01-12-2025 Emergency department Note Bed: 17 Expected date: Expected time: Means of arrival: [facility] Comments: 76F Fall; landed on LT side, did not hit head On thinners Swelling on LT knee cap Surgery at [facility] few months ago 75mcg 91/51 Iv est; NS bolus running 92mezh9 18 96%ra [facility] 01-10-2025 History of Present illness Narrative Minoo from [facility] P:[phone] INR today 2.5 Minoo reports no med/diet/health changes, no missed or extra doses, no bleeding or bruising, no upcoming procedures. Dose reported 5 mg ///Sa and 2.5 mg //Sow F/U 01/17 OK to call patient with dosing Fax orders to [phone] No other information left on vm. Result received from [facility]. INR 2.5 (goal range: 2.0-3.0). Spoke to patient and/or caregiver who reports patient findings: Taking warfarin dosing as documented. Missed or extra doses of warfarin: No Changes to medications: No Changes to lifestyle (diet / alcohol / smoking / activity): No Patient continues to drink 1 Boost shake daily. Recent emergency department visit / hospitalization / health changes / new contraindication to current anticoagulant: No Signs/symptoms of bruising/bleeding or clotting: No Upcoming procedures: No Anticoagulant prescription needed: No - She plans to take inventory of the many different strengths of warfarin she has at home. She will call if she needs any refills. Seen referring provider in the last year Duration of therapy reviewed Assessment: INR is remaining stable in therapeutic range on current warfarin regimen. Plan: Patient instructed to continue warfarin 2.5 mg every Sun, Tues, Thurs; 5 mg AOD. Check INR in 1 week(s). Order faxed to [facility]. Patient and/or caregiver verbalizes understanding of anticoagulant dosing instructions and information discussed. Dosing regimen, counseling, and follow-up INR redraw date were provided. Patient reminded to call with questions or any medication changes. Patient instructed to seek medical attention if any major bleeding/bleeding that persists or worsens. Lissa Montes RPH 01/10/25 1115 documented in this encounter [facility] 01-06-2025 History of Present illness Narrative Minoo Bowens called ([phone]). INR today is 2.3. Minoo reports no med/diet/health changes, no missed or extra doses, no bleeding or bruising, no upcoming procedures. Current warfarin dose is 2.5mg on Sun, Tues, and Thurs; 5mg AOD. Next home visit is scheduled for 01/10. Ok to call patient w/dosing. Please fax orders to [phone]. Please also send an order that it was ok to draw INR today. Result received from [facility]. INR 2.3 (goal range: 2.0-3.0). Spoke to patient who reports patient findings: Taking warfarin dosing as documented. Missed or extra doses of warfarin: No Changes to medications: No Changes to lifestyle (diet / alcohol / smoking / activity): patient reports that she has been having Boost daily for breakfast which was started about 1 week. She plans to continue with 1 shake/day Recent emergency department visit / hospitalization / health changes / new contraindication to current anticoagulant: No Signs/symptoms of bruising/bleeding or clotting: No Upcoming procedures: No Anticoagulant prescription needed: No Seen referring provider in the last year Duration of therapy reviewed Assessment: INR is therapeutic at 2.3 today. Patient states that she has been drinking Boost for about 1 week now since discharge. Will plan to continue with current dosing for now as INR is therapeutic. Plan: Patient instructed to continue warfarin 2.5 mg Thursday, Thursday, ; 5 mg all other days. Check INR in 4 day(s). Order faxed Patient and/or caregiver verbalizes understanding of anticoagulant dosing instructions and information discussed. Dosing regimen, counseling, and follow-up INR redraw date were provided. Patient reminded to call with questions or any medication changes. Patient instructed to seek medical attention if any major bleeding/bleeding that persists or worsens. [phone] Luanne Parks PharmD 01/06/25 1533 documented in this encounter [employer] 12-30-2024 History of Present illness Narrative Shannon from [facility] called ([phone]). INR today is 1.1. Shannon reports no med/diet/health changes, no bleeding or bruising, no upcoming procedures. Shannon reports that the patient missed her warfarin last night for sure, possibly other days but she is not sure. Current warfarin dose is 2.5mg Thu, , and ; 5mg AOD. Next home visit will be scheduled once insurance authorizes. Ok to call patient w/dosing. Please fax orders to [phone]. Result received from [facility]. INR 1.1 (goal range: 2.0-3.0). Left voicemail for patient at [phone] with the following instructions including INR result: Assessment: INR subtherapeutic due to missed dose and possibly more than one Plan: Patient instructed to continue warfarin 2.5 mg Thursday, Thursday, , 5 mg all other days. Redraw INR next week. Did not want to adjust dose for now since she has recently returned home and need to assess if prior maintenance dose is effective. Patient instructed to return call to discuss INR result, anticoagulant dosing instructions, and follow-up INR redraw date as well as confirm current warfarin regimen and assess any recent changes in medications, lifestyle (diet / alcohol / smoking / activity), or health. Patient also instructed to report any upcoming procedures or signs/symptoms of bleeding or clotting. Georges Estes RPH 12/30/24 1022 documented in this encounter [facility] 12-26-2024 History of Present illness Narrative Radha from [facility] called Resuming care today: INR today 1.4 Radha reports no med/diet/health changes, no missed or extra doses, no bleeding or bruising, no upcoming procedures. Current dose 3.5 mg daily per patient F/U 12/29 or 12/30 per PPMM discretion and next week 01/02 OK to call patient with dosing Fax orders to [phone] Result received from [facility]. INR 1.4 (goal range: 2.0-3.0). Spoke to patient and/or caregiver who reports patient findings: Taking warfarin dosing as documented. Missed or extra doses of warfarin: No Changes to medications: No Changes to lifestyle (diet / alcohol / smoking / activity): Yes, appetite remains slightly reduced. Recent emergency department visit / hospitalization / health changes / new contraindication to current anticoagulant: Yes, patient was discharged home on 12/23/24 on warfarin 3.5 mg daily. Of note, dosing from [facility] unable to be verified. Signs/symptoms of bruising/bleeding or clotting: No Upcoming procedures: No Anticoagulant prescription needed: No Seen referring provider in the last year Duration of therapy reviewed Assessment: INR is subtherapeutic following discharge from the SNF. However, dosing during admission is uncertain. Will plan to return to the patient's previous outpatient regimen and recheck an INR in 3-4 days to reassess. Plan: Patient instructed to increase to warfarin 2.5 mg every Thu, Thu, Thu; 5 mg all other days. Check INR in 3-4 day(s). Order faxed to [facility]. Patient and/or caregiver verbalizes understanding of anticoagulant dosing instructions and information discussed. Dosing regimen, counseling, and follow-up INR redraw date were provided. Patient reminded to call with questions or any medication changes. Patient instructed to seek medical attention if any major bleeding/bleeding that persists or worsens. Gabriela Tomlinson RPH 12/26/24 1202 documented in this encounter [facility] 12-06-2024 Miscellaneous Notes Left message for patient to reschedule appointment time for appointment on 12/14/2024. Patient's current appointment is at 10:15 am it needs to be moved to 1:15 pm. If patient unable to do this please contact GIOVANNI Bertrand for further instructions. documented in this encounter [facility] 12-06-2024 Telephone encounter Note Left message for patient to reschedule appointment time for appointment on 12/14/2024. Patient's current appointment is at 10:15 am it needs to be moved to 1:15 pm. If patient unable to do this please contact GIOVANNI Bertrand for further instructions. [facility] 11-30-2024 Miscellaneous Notes Patient [place] wanting a closer Provider she is asking if she can switch to a provider who goes to one of our outlining offices.. Please advise Patient is currently not driving at this time so she can't make it to [place] for her visit on 12/08 so she is wanting to know if she can do a telehealth visit instead Pt called back and said she doesn't need the telehealth visit on 12/08/2024. documented in this encounter [facility] 11-30-2024 Telephone encounter Note Patient has moved to [place] and his wanting a closer Provider she is asking if she can switch to a provider who goes to one of our outlining offices.. Please advise Patient is currently not driving at this time so she can't make it to [place] for her visit on 12/08 so she is wanting to know if she can do a telehealth visit instead [facility] 11-30-2024 Telephone encounter Note Pt called back and said she doesn't need the telehealth visit on 12/08/2024. [facility] 11-29-2024 History of Present illness Narrative Images from the original note were not included. Keila Allen [id number] 69 y.o. Visit date: 11/29/24 Physician: Maryjane HORVATH Reason for visit: Patient is here for a bone health evaluation for secondary fracture prevention, osteoporosis education and management, and identification of risk for future fractures History Keila Allen is a 69 y.o. female with a history of osteoporosis. She was appropriately identified by Dr. Sepulveda due to concerns for compromised bone quality and risk for future fractures. This visit is medically necessary to identify risk as well as initiate and investigate treatment to improve bone quality and strength for reduction of secondary fractures. Fractures since age 49: Femur fracture DEXA scan within last two years: no The patient has not been on any osteoporosis medications in the past. The following bone health history was obtained at today's visit: Height loss since age 19: yes - 1 inches Menopause history: - age at menopause: early 40's - patient had menopause naturally Use of hormone replacement therapy: no Smoking/alchol history: Social History Tobacco Use Smoking status: Never Smokeless tobacco: Never Substance Use Topics Alcohol use: Yes Alcohol/week: 1.0 standard drink of alcohol Types: 1 Glasses of wine per week Comment: occasionally Date of last dental exam? 10 years ago Do you have any upcoming dental work needed? yes Number of falls in the last year: 7 History of heart attack or stroke within the past 12 months: no History of any other heart or vascular problems: yes afib Daily activity level: not active (walks less than 5,000 steps per day Caffeine servings per day: no caffeinated beverages Nutritional supplements:2,000 units vitamin D3, calcium 400 mg daily Past Medical, Surgical, and Family Histories: were reviewed during this visit. The patient does not have a personal history of cancer. The patient does not have a family history of osteoporosis. The following medical problems were identified and discussed as potential contributing risk factors for future fractures: gastric bypass, GERD, CKD, depression, HTN Medications & allergies: were reviewed at during this visit. The following medications were reviewed and identified as negatively affecting the patient's bone health: warfarin, furosemide, pantoprazole Review of Systems: Negative for Fever/Chills, Numbness/Tingling, Skin changes. Objective: Physical Exam: General: Well-nourished, Well-developed and Age appropriate LOC: awake and alert Orientation: oriented to person, place, time, and recent events Psych: Ple[place] and [place] Station: seated in wheelchair Lungs: Clinically clear with no audible wheezing Musculoskeletal: In wheel chair, hips flexed at 90 degrees, no kyphotic spine DEXA SCAN IMAGING: None on file OTHER DATA REVIEWED: 11/21/2024 0718 11/21/2024 0805 Basic Metabolic Panel [[id number]] (Abnormal) PLASMA Component Value Units Sodium 141 mmol/L Potassium, Bld 4.1 mmol/L Chloride 111 High mmol/L CO2 23 mmol/L Anion gap 7 mmol/L BUN 29 High mg/dL Creatinine 1.33 High mg/dL Glucose 106 High mg/dL Calcium 8.4 Low mg/dL eGFR (CKD-EPI)non-race dependent 43 Low ml/min/1.73sq.m 11/21/2024 0718 11/21/2024 0748 CBC auto differential [[id number]] (Abnormal) Blood Component Value Units White Blood Cells 7.2 X10E9/L RBC count 2.91 Low X10E12/L Hemoglobin 9.2 Low g/dL Hematocrit 27.6 Low % MCV 95 fL MCH 31.7 pg MCHC 33.4 g/dL RDW 13.9 % Platelets 184 X10E9/L MPV 7.5 fL % neutrophils 69.2 % % lymphocytes 17.6 % % monocytes 10.0 % % eosinophils 2.6 % % Basophils 0.6 % Neutrophils Absolute (A) 5.0 X10E9/L Lymphocytes Absolute 1.3 X10E9/L Monocytes Absolute 0.7 X10E9/L Eosinophils Absolute 0.2 X10E9/L Basophils Absolute 0.0 X10E9/L 06/03/2024204606/03/2024 2148 Vitamin D 25 hydroxy [[id number]] PLASMA Component Value Units Vit D, 25-Hydroxy 54.4 ng/mL DATA REVIEWED: Outside records reviewed: no Radiology reports reviewed: yes New radiographs ordered today: yes Independent interpretation of previous radiograph performed: no Labs reviewed: yes DIAGNOSIS: Age-related osteoporosis without current pathological fracture PLAN: I spent 30 min of [id number] time with the patient discussing the disease management of osteoporosis for reduction of future fractures. I have explained that bone strength is equal to bone quality and density. It was also explained that a DEXA scan is important to compliment her care. Over half of the encounter time was spent counseling the patient on the disease of osteoporosis, evidence based best practice treatment options available and recommendations for improved bone quality. I also discussed the importance of nutritional supplements of calcium 600-1200 mg per day in divided doses and vitamin-D 8770-8183 units daily for improved bone quality. Fall prevention was also addressed in addition to personal safety guidelines for reduction of future fractures. I used the 2014 evidence based guidelines from the National osteoporosis foundation for the basis of this patient's treatment plan. Pt is at very high risk of future fracture. Has history of left femur fracture after a fall onto the left knee from standing height into the grass in May of 2024. States that she had been ambulating with a walker since 2015 due to extensive history of falls. Has had neurological work up with negative findings and just states that she is clumsy. She is currently staying in the [facility] as she recently had a procedure with Dr. Navarro. She is currently using a walker to ambulate and uses a wheelchair to travel long distances. Is currently receiving rehab in the residential. We did discuss her history of gastric sleeve surgery which has likely contributed to some malabsorption and osteoporosis. She also has a history of CKD and hyperparathyroidism. I did order her a DEXA scan. We will plan on ordering anabolic therapy. She will not be eligible for tymlos or forteo due to history of hyperparathyroidism. Discussed Evenity and prolia in detail. She needs dental extractions that she plans to have dental work done and will call our office. Understands we shouldn't start treatment until 3 months after dental work is complete. She plans to increase her calcium supplement as she was recently hypocalcemic. Will plan to see her back after DEXA is complete to review results and discuss treatment plan/options further. Summary:hx of fragility fracture, ordered DEXA, will see for DEXA review, needs Evenity vs. prolia Reba Brown APRN-KAREN Based on the following criteria: Ortho MDM Diagnosis Complexity -: [4] MODERATE: 1+ chronic illness - uncontrolled, failing tx Ortho Data Level: [4] Ortho Data MODERATE Level Category 2: Independent Test Interpretation Ortho Tx/Test Risk Level (highest): [4] Ortho Moderate Risk Options: Prescription Drugs LEVEL OF MDM -: [4] MODERATE level ALEXANDRU Madsen 11/29/24 1400 documented in this encounter [facility] 11-23-2024 History of Present illness Narrative Patient presented to [facility] ED on 11/15/24 following fall at home with subsequent L knee pain, swelling. X-rays of femur and knee resulted negative and patient discharged home. Patient presented again to ED at [facility] on 11/16/24 after increased pain and being unable to ambulate independently at home. Patient was found to have a posterior dislocation of tibial component of her previous TKA and underwent revision of L TKA on 11/17/24. Patient experienced post-op urinary retention requiring catheter, other unremarkable post-op course. Patient was ordered doxycycline 100 mg BID x 7 days post-op for high-risk prophylaxis, 4 days remaining at discharge. Patient also ordered pain regimen with gabapentin 100 mg BID and oxycodone 5 mg Q4H PRN as well as bowel regimen with Glycolax and bisacodyl at discharge. INR therapeutic upon admission to [facility] on 11/16/24. FFP given for reversal, no vit K administered. Warfarin on hold x 2 days then resumed post-op on 11/18/24. INR at 1.4 prior to discharge yesterday. Patient discharged to SNF, [facility], on 11/22/24. Fax sent to facility requesting PPMM receive notification when patient is discharged home. Anticoagulation episode temporarily resolved. Marci Montiel RPH 11/23/24 1036 documented in this encounter [facility] 11-17-2024 History of Present illness Narrative CC: S/P revision left total knee SUBJECTIVE: HPI DOS: 11/17/2024 4 week(s) out Keila Allen is a 69 y.o. female who is here today for a follow-up visit. Pt currently residing at her [facility] in [place]. Pt's pain is controlled with roxicodone and tylenol. Pt states she has been making progress in therapy but is not confident with full weight bearing. She admits to medial knee pain to the touch which feels like bruising. Weight bearing: Left lower extremity: weight bearing as tolerated Pt is participating in therapy at their current SNF. She is on coumadin home dose for DVT prophylaxis. Denies fever/chills/numbness/tingling Past Medical, Surgical, and Family Histories: were reviewed during this visit. Social History Occupational History Not on file Tobacco Use Smoking status: Never Smokeless tobacco: Never Vaping Use Vaping status: Never Used Substance and Sexual Activity Alcohol use: Yes Alcohol/week: 1.0 standard drink of alcohol Types: 1 Glasses of wine per week Comment: occasionally Drug use: Never Sexual activity: Defer Comment: not reviewd at this visit Medications & allergies: were reviewed at during this visit. OBJECTIVE: Physical Exam General: Well-developed well-nourished Mentation: Alert and oriented. Extremity Exam: left LE: Inspection: Incision healing well with toy in place without surrounding erythema or drainage. Toy removed today. ROM knee: Ext: active 5-10; passive almost 0 Flex: 120 Sensation remains grossly intact, + motor no foot drop present Comparments & calves soft and compressible Digits perfused IMAGING: I personally viewed X-ray images of left knee, which demonstrate: stable alignment revision total knee. Will review and confirm findings with the radiologist report when available. ASSESSMENT: Status post revision of total replacement of left knee PLAN: - Therapy: Continue therapy at [facility] - Discussed aggressive range of motion of knee - DVT prophylaxis: coumadin home dose - Dressing: Daily dry dressing until all drainage stops then ok to leave open to air - Ok to shower but do not submerge incisions until completely healed - Notify office for increasing erythema or drainage from incision - Multi modal approach to pain control: Continue current regimen with , Roxicodone 5mg PO q 6 hours prn pain, Tylenol 1000mg PO q 8 hours prn pain - Dental Protocol: - Recommend no routine cleaning for 3 months following procedure - Recommend antibiotics 1 hour prior to dental cleaning x 1 year after surgery - Recommend antibiotics 1 hour prior to dental procedure for lifetime - Follow up: 6-8 weeks with repeat XRs STALIN PETTY [facility] STALIN Petty 12/14/24 1102 documented in this encounter [facility] 11-16-2024 Miscellaneous Notes PATIENT CALLED AND STATED THAT SHE DID HAVE THE X-RAY OF HER LEFT KNEE, STATED SHE IS STILL IN EXTREME PAIN AND IS UNABLE TO BW ON HER LEFT SURGICAL LEG, EX-RAY SHOWED NO FX, PATIENT WOULD LIKE A CALL BACK TO ADVISE ON WHAT SHE SHOULD DO NEXT. Spoke with patient - recommend she be evaluated at [facility] ED for her subluxed/dislocated TKA. Needs CT scan and further evaluation for revision surgery. Patient voiced understanding CATIA VIZCARRA PA-C [facility] Telephone encounter Note PATIENT CALLED AND STATED THAT SHE DID HAVE THE X-RAY OF HER LEFT KNEE, STATED SHE IS STILL IN EXTREME PAIN AND IS UNABLE TO BW ON HER LEFT SURGICAL LEG, EX-RAY SHOWED NO FX, PATIENT WOULD LIKE A CALL BACK TO ADVISE ON WHAT SHE SHOULD DO NEXT. [employer] 11-16-2024 Telephone encounter Note Spoke with patient - recommend she be evaluated at [facility] ED for her subluxed/dislocated TKA. Needs CT scan and further evaluation for revision surgery. Patient voiced understanding CATIA VIZCARRA PA-C [employer] Work Phone: 11-15-2024 Note XR KNEE LT 3 VWS Procedure: Left knee radiographs performed Number of views:3 History:Fall knee pain Comparison:06/02/2024 Impression: 1. I see no definite acute fracture or dislocation. Extensive surgical hardware is stable. Old distal femur fracture is healed. Finalized by Sander Ang MD on 11/15/2024 6:35 PM [facility] 11-15-2024 Miscellaneous Notes Patient called in stated that she has an artificial LT knee, Thursday it popped out of place and went back just fine, yesterday it popped out of place again but it hasn't gone back in placed. She stated that its painful and she is unable to straighten her leg. Kendy PT was at patient's house she stated that patient's incision looks great, she doesn't have any redness also very minimal swelling. She stated that patient's knee looks like it moved up and its bunched together not laying correctly there is also a dip under her knee. Kendy PT stated that she doesn't feel comfortable doing PT with patient today that they will see her again on . She stated that if they need to be doing something different for PT those instructions can be given to the patient when there is a call back. Patient would like a call back at [phone]. PT states her knee felt like it subluxed a few days ago but she straightened her knee out and it popped back into place Today she states it popped out again and she can't reduce it- she has never had any episode of dislocation prevoiusly Instructed pt to head to ED for evaluation- will need reduced if truly dislocated and need further evaluation as to cause Pt to remain NWB on affected leg and plans to head to ED now documented in this encounter [facility] 11-15-2024 Telephone encounter Note Patient called in stated that she has an artificial LT knee, Thursday it popped out of place and went back just fine, yesterday it popped out of place again but it hasn't gone back in placed. She stated that its painful and she is unable to straighten her leg. Kendy, PT was at patient's house she stated that patient's incision looks great, she doesn't have any redness also very minimal swelling. She stated that patient's knee looks like it moved up and its bunched together not laying correctly there is also a dip under her knee. Kendy, PT stated that she doesn't feel comfortable doing PT with patient today that they will see her again on . She stated that if they need to be doing something different for PT those instructions can be given to the patient when there is a call back. Patient would like a call back at [phone]. [employer] 11-15-2024 Telephone encounter Note PT states her knee felt like it subluxed a few days ago but she straightened her knee out and it popped back into place Today she states it popped out again and she can't reduce it- she has never had any episode of dislocation prevoiusly Instructed pt to head to ED for evaluation- will need reduced if truly dislocated and need further evaluation as to cause Pt to remain NWB on affected leg and plans to head to ED now [employer] Work Phone: 11-14-2024 History of Present illness Narrative Vickie from [facility] ([phone]). INR today is 1.9. No other information given. Result received from [facility]. INR 1.9 (goal range: 2.0-3.0). Spoke to patient and/or caregiver who reports patient findings: Taking warfarin dosing as documented. Missed or extra doses of warfarin: No Changes to medications: No Changes to lifestyle (diet / alcohol / smoking / activity): Yes, patient notes that appetite is about the same and that her activity level is still very reduced. Patient also notes that she is drinking Ensure or Premier Protein drinks about every other day. Counseled the patient on the importance of consistency with this due to the vitamin K content. Patient v/u and agreed to stick to every other day. Recent emergency department visit / hospitalization / health changes / new contraindication to current anticoagulant: No Signs/symptoms of bruising/bleeding or clotting: No Upcoming procedures: No Anticoagulant prescription needed: No Seen referring provider in the last year Duration of therapy reviewed Assessment: INR remains slightly subtherapeutic, but has trended up nicely since last week. Patient has received 25 mg of warfarin in the last week. Will plan to continue similar dosing and recheck an INR in 3-4 days. Of note, still reestablishing dosing since discharge from the SNF. Plan: Patient instructed to take warfarin 2.5 mg every Sun, Tue, Gina; 5 mg all other days. Check INR in 3-4 day(s). Order faxed to [facility]. Patient and/or caregiver verbalizes understanding of anticoagulant dosing instructions and information discussed. Dosing regimen, counseling, and follow-up INR redraw date were provided. Patient reminded to call with questions or any medication changes. Patient instructed to seek medical attention if any major bleeding/bleeding that persists or worsens. Gabriela Tomlinson RPH 11/14/24 1002 documented in this encounter [facility] [employer] 11-10-2024 History of Present illness Narrative Shannon from [facility] P:[phone] INR today 1.3 Current dose 5 mg Tu and 2.5 mg W OK to call patient with dosing Fax orders to [phone] No other information left on vm. Result received from [facility]. INR 1.3 (goal range: 2.0-3.0). Spoke to patient who reports patient findings: Taking warfarin dosing as documented. Missed or extra doses of warfarin: No Changes to medications: No Changes to lifestyle (diet / alcohol / smoking / activity): appetite remains reduced from baseline. The pt is eating two meals a day (cereal with milk for breakfast and a turkey and cheese sandwich later in the day) Activity level remains reduced Recent emergency department visit / hospitalization / health changes / new contraindication to current anticoagulant: No Signs/symptoms of bruising/bleeding or clotting: No Upcoming procedures: No Anticoagulant prescription needed: No Seen referring provider in the last year Duration of therapy reviewed Assessment: INR didn't increase as much as expected with a booster dose on Thursday. Will alternate 5mg and 2.5mg and monitor closely due to a decrease in appetite and daily activity. Plan: Patient instructed to increase to warfarin 5mg and Thu; 2.5mg Thu and Thu (5mg on Thursday if results not received until Thursday). Check INR in 4 day(s). Orders faxed. Patient and/or caregiver verbalizes understanding of anticoagulant dosing instructions and information discussed. Dosing regimen, counseling, and follow-up INR redraw date were provided. Patient reminded to call with questions or any medication changes. Patient instructed to seek medical attention if any major bleeding/bleeding that persists or worsens. Melissa Gurrola RPH 11/10/24 1325 documented in this encounter [facility] 11-09-2024 Miscellaneous Notes Aleah from [facility] called and stated that she completed her evaluation and will be continuing physical therapy. Phone number: [phone] Encounter noted, thanks! documented in this encounter [facility] 11-09-2024 Telephone encounter Note Aleah from [facility] called and stated that she completed her evaluation and will be continuing physical therapy. Phone number: [phone] [facility] 11-09-2024 Telephone encounter Note Encounter noted, thanks! [employer] 11-08-2024 History of Present illness Narrative June from [facility] (P: [phone]) LVM yesterday at 5:01 p.m stating patient's INR is 1.2. June reports that the patient has been home from [facility] for a couple of weeks and will have have fci, PT and OT. Patient is unsure of what dose of Warfarin she should be taking. Please call patient with dosing and fax orders to [facility]. Security Supervisor called [facility] and requested previous INR results and dosing. June from [facility] ([phone]) stating that patient's next home visit is scheduled for Nov 10. Security Supervisor's co-worker states she took a message from [facility] requesting a call back. The person who called from [phone] did not identify herself. Security Supervisor [facility] for her to call back. Still awaiting records from [facility]. Result received from [facility]. INR 1.2 on 11/07/24 (goal range: 2.0-3.0). Spoke to patient and/or caregiver who reports patient findings: Taking warfarin dosing as documented. Missed or extra doses of warfarin: No Sent home from [facility] with a variety of doses - 2 mg, 2.5 mg, 3 mg and 4 mg. She thinks she has been taking 2.5 mg daily of warfarin, but is unsure. Changes to medications: No Changes to lifestyle (diet / alcohol / smoking / activity): Yes, Appetite is a little low. She is not eating 3 meals per day. She is eating a lot of fruit. She has PT coming today. She is not moving around much as she had a horrible break in her femur. She was non weight-bearing . She walking a little with her walker and has a wheelchair that she moves around with her legs. Recent emergency department visit / hospitalization / health changes / new contraindication to current anticoagulant: Yes, patient has been home from [facility] for about a week and half ago ~10/27. Signs/symptoms of bruising/bleeding or clotting: No Upcoming procedures: No Anticoagulant prescription needed: No Seen referring provider in the last year Duration of therapy reviewed Assessment: INR is subtherapeutic on 17.5 mg/week since patient has been home from [facility]. Will increase to target 20 mg/week (14% increase) for next INR check. Plan: Patient instructed to increase to warfarin 5 mg today, then continue 2.5 mg daily. Check INR in 2 day(s). Order faxed to [facility]. Note routed to referring provider. Patient and/or caregiver verbalizes understanding of anticoagulant dosing instructions and information discussed. Dosing regimen, counseling, and follow-up INR redraw date were provided. Patient reminded to call with questions or any medication changes. Patient instructed to seek medical attention if any major bleeding/bleeding that persists or worsens. Lissa Montes RPH 11/08/24 1112 documented in this encounter [facility] 11-07-2024 Telephone encounter Note Pt does not know what dosage of coumadin she should take and [facility] wants to know if they should document the inr. There is no order to do so [facility] 11-07-2024 Miscellaneous Notes Pt does not know what dosage of coumadin she should take and [facility] wants to know if they should document the inr. There is no order to do so documented in this encounter [facility] 11-07-2024 Miscellaneous Notes June from [facility] called to let us know that patient's plan of care was started today. She will be getting SN, PT, OT and a LEASE OPERATOR. Patient will be following up with her PCP her shortly but RN reported that INR was 1.2 today and patient is taking coumadin. June is asking if we want PT/INR's drawn regularly? Call back number is [phone]. LMOM. Appreciated update on services patient is now receiving. Lab work in regards to her Coumadin would be up to her PCP or whoever is managing her Coumadin. Encouraged a callback if she wished to discuss further. documented in this encounter [facility] 11-07-2024 Telephone encounter Note June from [facility] called to let us know that patient's plan of care was started today. She will be getting SN, PT, OT and a LEASE OPERATOR. Patient will be following up with her PCP her shortly but RN reported that INR was 1.2 today and patient is taking coumadin. June is asking if we want PT/INR's drawn regularly? Call back number is [phone]. [facility] 11-07-2024 Telephone encounter Note LMOM. Appreciated update on services patient is now receiving. Lab work in regards to her Coumadin would be up to her PCP or whoever is managing her Coumadin. Encouraged a callback if she wished to discuss further. [facility] 11-03-2024 Miscellaneous Notes Patient called in and would like a order placed for home care and PT OT has been discharged from her inpatient facility Order placed documented in this encounter [facility] 11-03-2024 Telephone encounter Note Patient called in and would like a order placed for home care and PT OT has been discharged from her inpatient facility [facility] 11-03-2024 Telephone encounter Note Order placed [facility] 10-03-2024 Miscellaneous Notes Attempted to call patient to schedule follow-up appointment. Needed to leave a message on importance of follow-up care Patient in rehab facility for broke femur, will call to schedule when feeling better Second attempt made to encourage follow up care via mychart documented in this encounter [facility] 10-03-2024 Telephone encounter Note Attempted to call patient to schedule follow-up appointment. Needed to leave a message on importance of follow-up care Patient in rehab facility for broke femur, will call to schedule when feeling better [facility] 10-03-2024 Telephone encounter Note Second attempt made to encourage follow up care via mychart [facility] 09-02-2024 History of Present illness Narrative Images from the original note were not included. INTERVAL Hx: Keila Allen is a 69 y.o. female presents 09/02/2024 for follow-up of her Closed displaced supracondylar fracture of distal end of left femur without intracondylar extension with routine healing, subsequent encounter. She is 12 week(s) operative stabilization left distal femur fracture performed on 06/03/24. At her last follow up visit she was continued nonweightbearing to left lower extremity, however permitted to continue working on left lower extremity range of motion. She presents to the office today for clinical and radiographic check. She is now residing at [facility] on the assisted living side. She has continued to maintain weight-bearing restrictions, however reports she has touchdown of the left lower extremity on a few occasions for balance. She continues to work with physical therapy at the facility. She reports that pain continues to improve and reports she was utilizing Tylenol as needed. Denies numbness/tingling. PMHx, PSHx, FamHx: were reviewed during this visit. Social History Occupational History Not on file Tobacco Use Smoking status: Never Smokeless tobacco: Never Vaping Use Vaping status: Never Used Substance and Sexual Activity Alcohol use: Yes Alcohol/week: 1.0 standard drink of alcohol Types: 1 Glasses of wine per week Comment: occasionally Drug use: Never Sexual activity: Defer Comment: not reviewd at this visit MEDS & ALLERGIES: were reviewed at during this visit. ROS: Negative for Fever/Chills, Numbness/Tingling, Skin changes. PHYSICAL EXAM: Vitals: Temp 36.6 C (97.8 F) Ht 165.1 cm (5' 5 ) Wt 88.5 kg (195 lb) BMI 32.45 kg/m General: Well-nourished, Well-developed and Age appropriate LOC: awake and alert Orientation: oriented to person, place, time, and recent events Psych: Pleasant and Co[place] Station: Seated in wheelchair Musculoskeletal: LEFT LOWER EXTREMITY: Inspection: Incision well healed, no erythema, no drainage. ROM: knee flexion / extension: 110 / lacking 5 passively, however able to achieve 0 actively deg Motor: intact extensor hallucis longus, tibialis anterior, gastrocsoleus complex function Sensory: intact to light touch: Deep Peroneal, Superficial Peroneal, Saphenous, Sural nerves CV/Vasc: Foot warm and well perfused Bilateral lower extremity with lymphedema and compressive wraps in place IMAGING: I personally viewed X-ray images of left femur, which demonstrate: Maintained alignment of periprosthetic distal femur fracture with stable appearance of orthopedic implants without evidence of hardware loosening or failure. There is progressive callus formation noted most well visualized medially as well as posteriorly over fracture sites. Will review and confirm findings with the radiologist report when available. DIAGNOSIS: Closed displaced supracondylar fracture of distal end of left femur without intracondylar extension with routine healing, subsequent encounter PLAN: Patient may WBAT LLE with assistive devices as needed Physical therapy for additional gait training, mobilization, LLE ROM and strengthening Pain control - Patient utilizing tylenol as needed. Will confirm medication with pharmacy Continue chronic Coumadin as previously ordered per Cardiology Continue calcium and vitamin-D supplementation Ice/elevation In regards to bone health, she has previously been provided a referral to the osteoporosis and fracture prevention clinic. She was agreeable to continue with this. Follow-up 3 month(s) with new radiographs of left femur. YAW GARCIA PA-C ATTENDING STATEMENT: I, Rafat Sepulveda MD, personally performed the face to face evaluation on this patient. I discussed with the patient and confirmed the accuracy and completeness of the aforementioned history prepared by the advance practice provider, and I personally performed the clinical examination of the patient. I discussed the treatment plan with the patient. Radiographs overall demonstrate excellent alignment. There is some increase in density around her comminuted fracture both visible on the AP view throughout the areas of fragments but also some increase in callus visible on the lateral view. Appears to have some maturation and progression compared with prior images from June. Overall at this point will advance to weight-bearing as tolerated. Instructions provided for physical therapy. She states that she does anticipate being moved back from the assisted living to the [facility] rehab side of the facility so that she may get therapy 5 times per week. Think overall this is quite reasonable plan as the increase in function will be beneficial. Reviewed with her once again the osteoporotic nature of her fracture and will place referral and communicate for scheduling purposes of a new patient osteoporosis visit. . RAFAT SEPULVEDA MD MEDICAL DECISION-MAKING Based on the following criteria: Ortho MDM Diagnosis Complexity -: [4] MODERATE: 1 acute, complicated injury Ortho Data Level: [3] Ortho Data Limited Category 1 (need 2): Review of results and Order unique tests Ortho Tx/Test Risk Level (highest): [3] Ortho Low Risk Options: PT/OT LEVEL OF MDM -: [3] LOW level documented in this encounter [facility] 08-22-2024 Telephone encounter Note Rx's sent [facility] 08-22-2024 Miscellaneous Notes Rx's sent documented in this encounter [facility] 07-20-2024 History of Present illness Narrative Images from the original note were not included. CC: Closed displaced supracondylar fracture of distal end of left femur without intracondylar extension with routine healing. Subjective: HPI DOS: 06/03/2024, 6 weeks out. Keila Allen is a 68 y.o. female who is [...] able. Patient to continue pain management with [id number] Tylenol as needed. Patient permitted to utilize home lymphedema pump per primary team. Patient to follow up in 6 weeks for repeat clinical / radiographic check; recommend patient remain at facility until weightbearing can be safely advanced. Windy Marte PA-C ATTENDING STATEMENT: IRafat MD, personally performed the face to face [...] MD Post-Op [employer] documented in this encounter [employer] 07-20-2024 Instructions Windy Marte PA-C - 07/20/2024 2:00 PM EDT Patient Education Calcium and Vitamin D (YANETH see jovani & VAUSTIN ta marbella riddle) Brand Names: US Nathaniel-Citrate Plus Vitamin D [OTC]; Calcet Petites [OTC]; Calcitrate [OTC] [DSC]; Calcium 500/D [OTC] [DSC]; Calcium 600+D [OTC]; Calcium 600-D [OTC] [DSC]; Calcium Citrate + D3 Maximum [OTC]; Calcium High Potency/Vitamin D [OTC]; Calcium Plus Vitamin D [OTC]; Calcium+D3 [OTC]; Caltrate 600+D3 Soft [OTC]; Caltrate 600+D3 [OTC]; Caltrate Gummy Bites [OTC]; Otoe Calcium +D [OTC] [DSC]; Liquid Calcium with [...] or approved for treating a specific patient. [employer]. and its affiliates disclaim any warranty or liability relating to this information or the use thereof. The use of this information is governed by the Terms of Use, available at https://www.[employer].com/en/know/ osashmiv-xmdzkgfojzwgf-azhtm. Last Reviewed Date 2021-02-20 Copyright 2021 [employer]. and its affiliates and/or licensors. All rights reserved. documented in this encounter [facility] 07-06-2024 Miscellaneous Notes Patient called in stated [...] Patient would like a call back at [phone] The patient may use her lymphedema pump on her surgical leg. She is cautioned that if she has increased discomfort because of the pressure from the pump she should discontinue use on that leg. Will see the patient back at her scheduled postoperative appointment. documented in this encounter [facility] 07-06-2024 Telephone encounter Note Patient called in [...] Patient would like a call back at [phone] [facility] 07-06-2024 Telephone encounter Note The patient may use her lymphedema pump on her surgical leg. She is cautioned that if she has increased discomfort because of the pressure from the pump she should discontinue use on that leg. Will see the patient back at her scheduled postoperative appointment. [employer] Work Phone: 06-22-2024 History of Present illness Narrative Images from the original note were not included. INTERVAL Hx: Keila Allen is a 68 y.o. female presents 06/22/2024 for follow-up of her Age-related osteoporosis without current pathological fracture Closed displaced supracondylar fracture of distal end of left femur without intracondylar extension with routine healing, subsequent encounter. She is 3 week(s) status post operative stabilization left distal femur fracture performed on 06/03/24. She returns today for her 1st postoperative visit. She states that her pain is overall improving. She continues on Coumadin for chronic anticoagulation. She continues to work on some left lower extremity range of motion. She does note an episode of generalized swelling throughout her body yesterday however this has seemed to improve. She has been initially worked up by the facility provider. PMHx, PSHx, FamHx: were reviewed during this visit. Social History Occupational History Not on file Tobacco Use Smoking status: Never Smokeless tobacco: Never Vaping Use Vaping status: Never Used Substance and Sexual Activity Alcohol use: Yes Alcohol/week: 1.0 standard drink of alcohol Types: 1 Glasses of wine per week Comment: occasionally Drug use: Never Sexual activity: Defer Comment: not reviewd at this visit MEDS & ALLERGIES: were reviewed at during this visit. ROS: Negative for Fever/Chills, Numbness/Tingling, Skin changes. PHYSICAL EXAM: Vitals: Temp 36.1 C (96.9 F) Ht 165.1 cm (5' 5 ) Wt 88.5 kg (195 lb) BMI 32.45 kg/m General: Well-nourished, Well-developed, Age appropriate, and Morbidly Obese LOC: awake, alert, and oriented Orientation: oriented to person, place, time, and recent events Psych: Pleasant and Cooperative Station: Seated in wheelchair Musculoskeletal: LEFT LOWER EXTREMITY: Inspection: Toy removed from left lower extremity, there is an area about the distal 3rd of the lateral thigh with some oozing which appears benign however pressure dressing was placed. Remainder of the incisions appear overall benign with some resolving ecchymosis ROM: knee flexion / extension: 80 / 10-20 actively deg CV/Vasc: warm, pink, well-perfused foot & toes, bilateral lower extremity lymphedema IMAGING: no new images taken at today's visit DIAGNOSIS: Age-related osteoporosis without current pathological fracture Closed displaced supracondylar fracture of distal end of left femur without intracondylar extension with routine healing, subsequent encounter PLAN: Continue nonweightbearing left lower extremity with emphasis on range of motion and efforts at mobilization while maintaining nonweightbearing restrictions. Pressure dressing placed. Okay to remove in 2 days and replace dry dressing daily as needed. Coumadin for chronic anticoagulation. Advised patient to keep an eye on her INR as this can also contribute to some bleeding as well as ecchymosis. Vitamin-D calcium supplementation. She has not previously been on medications for osteoporosis therefore we do feel it would be beneficial for her to be evaluated in our osteoporosis fracture prevention Clinic. Referral was placed today. Follow-up 1 month(s) with new radiographs of Left femur. MADELEINE KELLY PA-C ATTENDING STATEMENT: I, Rafat Sepulveda MD, personally performed the face to face evaluation on this patient. I discussed with the patient and confirmed the accuracy and completeness of the aforementioned history prepared by the [facility] provider, and I personally performed the clinical examination of the patient. I discussed the treatment plan with the patient. Discussed with her continued mobilization and rehab efforts with an emphasis on range of motion. She should remain nonweightbearing at this time for duration total of 12 weeks postoperatively. Evaluated her limb today in the office. [place] were removed. She has 1 percutaneous incision in the mid to distal portion of her thigh that is oozing some dark to serous colored blood. This is an area ecchymotic skin. Was easily controlled with a pressure dressing. This would be applied today in the office and will continue to monitor the wound. It otherwise appears to be benign with no evidence of infection. Her body habitus does limit assessment for hematoma accumulation but I do not appreciate any significant fluctuance or areas of tenderness to palpation. Will continue to follow-up with her. Instructed her to contact the office if character around this area should change. If she continues to drain may benefit from wound VAC application over the incision. Will follow-up in 1 month with repeat x-rays. . RAFAT SEPULVEDA MD MEDICAL DECISION-MAKING POST OP GLOBAL documented in this encounter [facility] 06-13-2024 History of Present illness Narrative Patient was recently admitted to [facility] 06/03/24 - 06/20/24 (transferred from [facility]) for a left femur fracture secondary to a fall. Patient underwent surgery on 06/03/24. Warfarin was held and reversed with vitamin K (1 mg IV x 1 on 06/03/24). Warfarin was then resumed on 06/05/24. Dosing calendar updated. Per discharge planning notes, patient was discharged to [facility]. Called and spoke with [facility] and [facility] (P: [phone]). Confirmed the patient's recent admission there and that the in-house provider is currently managing. Additionally, requested [facility] be notified upon discharge. Episode temporarily resolved. Gabriela Tomlinson [facility] 06/13/24 1035 documented in this encounter [facility] 06-07-2024 Miscellaneous Notes Patient is on 30-day OD Report. Security Supervisor notes in chart that patient is admitted at [facility]. Added to admit list. Noted. Appears patient may be going to SNF on discharge. Georgina Lockett PharmD, BCPS June 07, 2024 11:11 AM documented in this encounter [facility] 06-07-2024 Telephone encounter Note Patient is on 30-day OD Report. Security Supervisor notes in chart that patient is admitted at [facility]. Added to admit list. [facility] 06-07-2024 Telephone encounter Note Noted. Appears patient may be going to SNF on discharge. Georgina Lockett PharmD, [facility] June 07, 2024 11:11 AM [facility] 06-06-2024 Telephone encounter Note Keila called - wont be making an appt for a littlw while . She fracture her Femur , and wanted to let you know she will when she is better . Ty [facility] 06-06-2024 Miscellaneous Notes Keila called - wont be making an appt for a littlw while . She fracture her Femur , and wanted to let you know she will when she is better . Ty documented in this encounter [facility] 06-02-2024 Miscellaneous Notes Fax received from Dr. Linares office. Patient in the process of scheduling left shoulder arthroscopy. They are requesting patient hold warfarin three days prior. They also want patient to take enoxaparin 100 mg daily for the three days off warfarin. She will then restart warfarin one day after the procedure along with enoxaparin 100 mg daily. INR requested day before and three days after procedure. Patient on warfarin for history of atrial fibrillation. She has never bridged in the past and has CHADS-VASC score less than 4. Fax sent back stating patient does not need bridged but if proceduralist requests this plan then they will have to send in enoxaparin script. documented in this encounter [facility] 06-02-2024 Telephone encounter Note Fax received from Dr. Linares office. Patient in the process of scheduling left shoulder arthroscopy. They are requesting patient hold warfarin three days prior. They also want patient to take enoxaparin 100 mg daily for the three days off warfarin. She will then restart warfarin one day after the procedure along with enoxaparin 100 mg daily. INR requested day before and three days after procedure. Patient on warfarin for history of atrial fibrillation. She has never bridged in the past and has CHADS-VASC score less than 4. Fax sent back stating patient does not need bridged but if proceduralist requests this plan then they will have to send in enoxaparin script. [facility] Work Phone: 06-01-2024 Miscellaneous Notes No appt. documented in this encounter [facility] 06-01-2024 Telephone encounter Note No appt. [facility] 05-25-2024 Miscellaneous Notes Patient called to cancel her appt for 05/25 due to a migraine. Patient stated that she will call back to r/s. Noted. Georgina Lockett PharmD, [facility] May 25, 2024 9:53 AM documented in this encounter [facility] [employer] [facility] 05-25-2024 Telephone encounter Note Patient called to cancel her appt for 05/25 due to a migraine. Patient stated that she will call back to r/s. [facility] 05-25-2024 Telephone encounter Note Noted. Georgina Lockett, PharmD, [facility] May 25, 2024 9:53 AM [facility] 05-18-2024 History of Present illness Narrative Images from the original note were not included. Subjective Patient ID: Keila Allen is a 68 y.o. female who presents for Follow-up. HPI: Pt saw Dr Linares for left shoulder, pain with movement resting 5/10, when uses it moves it 10/10. Pt had X-ray and then MRI. He will be doing artroscopic procedure. Taking Tylenol 2-50mg at HS mainly, rare during the day. Using some heat- sl relief. Has to see Cardiology for clearance. Pt states she also has issues with right shoulder-saw Dr Fine for that, did PT, but never had surgery r/t covid. Saw Neurology in February thinks next appt is in Jul. Sees Jacquie at [facility] for counseling. Left face lesion under nose for last year or so. Itches some times. Pt called Derm and has appt Dr Sanders jun 14. Sees Eye Drs Extrusion Press Adjuster and Epic Interface Analyst (Dr Cleary and Dr Willis in [place]), last few months ago and has appt in Sep she thinks. Needs to see a dentist-has couple of broken teeth-one for along time, has not been teeth -enc appt Review of Systems Constitutional: Positive for fatigue. Negative for appetite change, chills and fever. Cold a lot, fatigue-moderate Respiratory: Positive for shortness of breath. Negative for cough. Some SOB with exertion, not in pool with exercises Cardiovascular: Negative for chest pain. Gastrointestinal: Negative for abdominal pain and blood in stool. No change in bowels, Occ Heartburn if eats fast. Knows triggers (had sheet), and PPI, occ TUMS and relieves it Genitourinary: Negative for difficulty urinating and dysuria. Hx of incontinence issue. Wears adult diapers all the time. Not getting up a lot at night to void-sees Urology Musculoskeletal: See HPI Skin: Negative for rash. See HPI Neurological: Negative for dizziness and headaches. Psychiatric/Behavioral: Sleeping better at night with Unisom Objective Physical Exam Vitals reviewed. Constitutional: General: She is not in acute distress. Eyes: Extraocular Movements: Extraocular movements intact. Neck: Vascular: No carotid bruit. Cardiovascular: Rate and Rhythm: Normal rate and regular rhythm. Pulmonary: Effort: Pulmonary effort is normal. Breath sounds: Normal breath sounds. Abdominal: General: Bowel sounds are normal. Palpations: Abdomen is soft. Tenderness: There is no abdominal tenderness. Musculoskeletal: Comments: Using wheeled walker. Pt points to anterior/top of left shoulder and lateral areas as areas of pain. Pain goes into left clavicle. Pt has pain with moving arm across and out hard to lift it up and behind back . Left radial pulse strong, pt can fel my touch occ N/T shoulder to fingers occ, but not at this time. Lymphadenopathy: Cervical: No cervical adenopathy. Skin: General: Skin is warm and dry. Findings: No rash. Comments: Per pt hematoma is fading Neurological: Mental Status: She is alert and oriented to person, place, and time. Psychiatric: Comments: Calm and cooperative, well groomed. 10/28/2023 2:41 PM 10/28/2023 3:17 PM 01/25/2024 1:34 PM 01/25/2024 1:44 PM 04/20/2024 1:36 PM 05/18/2024 1:10 PM 05/18/2024 1:46 PM Vitals BMI 31.52 kg/m2 34.58 kg/m2 35.25 kg/m2 BSA (m2) 1.98 m2 2.08 m2 2.1 m2 Systolic 90 118 148 122 102 98 102 Diastolic 52 62 78 64 58 58 52 Heart Rate 68 88 80 80 Height (in) 5' 5 Weight (lb) 189.4 207.8 211.8 Visit Report Report Report Report Report Report Report Report Assessment/Plan Diagnoses and all orders for this visit: Essential hypertension, benign (CMS/HCC): Very well controlled. Pt will monitor BP at home, may want to decrease BP meds. She has appt with Cardiology and will take log book with her to discuss with them Hypertensive heart and chronic kidney disease without heart failure, with stage 1 through stage 4 chronic kidney disease, or unspecified chronic kidney disease ([facility]/HCC): Last BUN 41, Crea 1.47, GFR 38 on 02/15/24. Pt sees Nephrology and she thinks they will be doing lab soon Stage 3b chronic kidney disease (HCC) ([facility]): See Above Dyslipidemia ([facility]): Last lipids November 2023: Chol 142, Trig 127, HDL 75, LDL 42, ratio 1.9. On statin and Zetia Hyperparathyroidism, secondary renal ([facility]): Last PTH 117 in November-pt sees Nephrology Age-related osteoporosis without current pathological fracture ([facility]): On last Dexa. Vit D 48.9 (prior was 105.3-pt states she is not taking any Vit D or Calcium at this time. She does take a MVI. Pt will plan to discuss with Nephrology ie how much Vitamin D and Calcium they want her to take Atrial fibrillation, unspecified type ([facility]): On Warfarin. Last INR per pt 2.9, has appt this Thursday at [facility] for next INR. Sees Cardiology. Major depressive disorder, single episode, moderate (HCC) ([facility]) Iron deficiency anemia secondary to inadequate dietary iron intake: Last Hgb 12.8/Hematocrit 38.2, platelets 251 in November Gait disorder: Uses Wheeled walker Gastrointestinal hemorrhage, unspecified gastrointestinal hemorrhage type: On PPI. Enc pt to avoid triggers Prolonged Q-T interval on ECG: Sees cardiology Preoperative clearance: Discussed pt will need Clearance from Cardiology and prefer Nephrology. She will then follow Dr Linares's Pre-op orders. Post op care discussed. Risk of surgery including bleeding, infection, blood clots, pneumonia, . Enc CDB post op, leg movements, blair dietrich, Discussed SE's of pain meds ie nausea, dizziness, constipation. Can take stool softner, Miralax. Pt states she may want to go to ECF post -op, I enc her to let Ortho know this, so arrangements can be made if needed Left shoulder pain, unspecified chronicity: Seeing Ortho, they plan to do surgery when pt has clearance Depression with anxiety: On Cymbalta, seeing Nafisa Headache syndrome: Sees Neurology Insomnia, unspecified type: Sleeping better with Unisom White matter disease: Per MRI-seeing Neurology LVH (left ventricular hypertrophy) First degree AV block: Sees Cardiology Status post bariatric surgery Presence of artificial knee joint, bilateral History of borderline diabetes mellitus: Last glucose 102 Dental disease: Pt has not seen a dentist in awhile, enc dental appt soon. I gave her a phone number for Dr Tej Encarnacion Edema, unspecified type: Lymph edema, pt has machine at home, she is not using it at this time Impairment of balance: Using wheeled walker 45 in visit today, reviewing Dx's. Discussed pre-post op care. Will wait for Cardiology and Nephrology Clearance. documented in this encounter [facility] 05-13-2024 History of Present illness Narrative Images from the original note were not included. HISTORY OF PRESENT ILLNESS: EST PT Keila Allen is an 68 y.o. @ female. (EST PT ; LAST APPT W/ STEPHAN) S/P (L) SHOULDER INJURY / FALL 04/17/24 (3WKS 5DAYS) - FELL AGAIN 04/24/24 ; HERE FOR MRI RESULTS 05/03/24 IN [facility] XRAYS, 04/20/24 @ [facility] MRI 05/03/24 IN [facility] NO MDP / PREDNISONE NO CORTISONE INJ NO PHYSICAL THERAPY NO PAIN MGMT NOTES CONSTANT DISCOMFORT ; WORSE WITH MOVEMENT / ACTIVITY. PAIN IS DIFFUSE - SOME RADIATION DOWN TO HER ELBOW, SOME N/T TOWARDS HER HAND. NOTES LIMITED ROM ; SOME WEAKNESS. CONTINUES TO TAKE TYLENOL ES - SOME RELIEF ; ALSO USES TOPICAL RUB. NO HEP. TAKES COUMADIN - H/O A FIB ALLERGIES: Allergies Allergen Reactions Cephalexin Rash, Shortness of breath and Swelling Other Reaction(s): SOB, rash, swelling Tolerates ceftriaxone Penicillins Hives, Rash, Shortness of breath and Swelling Other Reaction(s): SOB, rash, swelling Tolerates ceftriaxone Atorvastatin Other Reaction(s): muscle cramps Other reaction(s): muscle cramps Nifedipine Other Reaction(s): Hypotension Other reaction(s): Hypotension Other reaction(s): Allergy: EDEMA; Other reaction(s): Allergy: EDEMA; HOME MEDICATIONS: Current Outpatient Medications Medication Instructions amLODIPine (Norvasc) 10 MG tablet cyanocobalamin (Vitamin B-12) 1000 MCG tablet Every 24 hours Docusate Sodium (DSS) 100 MG capsule 1 capsule as needed Orally Once a day for 30 day(s) DULoxetine (CYMBALTA) 60 mg, Oral, Daily, Do not crush or chew. ezetimibe (ZETIA) 10 mg, Oral, Daily ferrous sulfate 325 (65 Fe) MG tablet Every 24 hours flecainide (Tambocor) 100 MG tablet Every 12 hours furosemide (Lasix) 20 MG tablet hydrALAZINE (APRESOLINE) 50 mg, Oral, 3 times daily losartan (COZAAR) 25 mg, Oral, Daily Melatonin 10 MG capsule Oral Multiple Vitamins-Minerals (PRESERVISION AREDS 2 PO) Oral oxybutynin XL (DITROPAN-XL) 15 mg, Oral, Daily, Do not crush, chew, or split. pantoprazole (PROTONIX) 40 mg, Oral, Daily before breakfast, Do not crush, chew, or split. Phenazopyridine HCl & UTI Test ([employer] UTI RELIEF KAREN [place]) Combination rosuvastatin (CRESTOR) 5 mg, Oral, Daily topiramate (TOPAMAX) 50 mg, Oral, 2 times daily warfarin (Coumadin) 5 MG tablet Oral, Take as directed per After Visit Summary. PHYSICAL EXAM: Shoulder Musculoskeletal Exam Inspection Left Left shoulder inspection is normal. Ecchymosis: none Peripheral edema: none Atrophy: none Masses: none Palpation Left Crepitus: no crepitus Increased warmth: none Tenderness: present Anterior shoulder: moderate AC joint: mild Bicipital groove: moderate Lateral arm: mild Range of Motion Right Right shoulder active abduction: + pain passing 90 degrees. Left Left shoulder range of motion is normal. Active ROM: abnormal and pain. Passive ROM: abnormal and pain. Strength Left External rotation: 5/5. Internal rotation: 5/5. Abduction: 5/5. Biceps: 5/5. Triceps: 5/5. Neurovascular Left Radial pulse: normal and 2+ Capillary refill: <3 sec Axillary nerve sensory distribution: normal Scapula Left Left shoulder scapula is normal. Position: normal Winging: none Special Tests Left Rotator Cuff Signs Neer's test: positive Hooks test: positive Painful arc test: positive Biceps/pratibha Signs Speed's test: negative Vitals: There is no height or weight on file to calculate BMI. Tobacco Use: Medium Risk (05/13/2024) Patient History Smoking Tobacco Use: Former Smokeless Tobacco Use: Never Passive Exposure: Not on file Alcohol Use: Not At Risk (10/28/2023) AUDIT-C Frequency of Alcohol Consumption: Monthly or less Average Number of Drinks: 1 or 2 Frequency of Binge Drinking: Never IMAGING: Procedures No orders of the defined types were placed in this encounter. ASSESSMENT: ICD-10-CM 1. Internal derangement of left shoulder M24.812 PLAN: We have answered all the patients questions and explained the patients condition, decision making and plan including the risks and benefits associated with said plan in layman''s terms in a language the patient could understand easily. If patient''s symptoms significantly worsen and they cannot get a hold of us or their family physician, we have recommended that the patient proceed to the nearest emergency department (room). Dr. Linares obtained history and examined the patient, I am acting as scribe for Dr. Linares/rut, PLAN: We have reviewed prior (L) shoulder xrays and discussed (L) shoulder MRI results with patient at bedside : supraspinatus tear and biceps tendon subluxation. After examination of her left shoulder today we have discussed both surgical and nonsurgical intervention, with the risks and benefits of both. Patient is requesting a (L) shoulder scope as the pain is affecting her ADL's - limited ROM secondary to pain. Patient admits she has a hx of falls ; states she will looking into getting an electric wheelchair. She is understanding if a repair is made she could be in a sling for at least 6 weeks and not lifting anything heavier than a coffee cup for at least 12 weeks. Surgery - Diagnostic and operative (L) shoulder scope w/RCR and bicep tenodesis. We have discussed both surgical and nonsurgical treatment options with the patient at length and the risks and benefits associated with both. The patient is requesting surgical intervention because they have not responded to outpatient treatment options including but not limited to rest ice, and home exercise program. Pain and decreased range of motion are affecting the patient''s ability to sleep and activities of daily living and we have recommended surgical intervention. Ruben Linares D.O. documented in this encounter [facility] 05-04-2024 Note HNO ID: [id number] Author: SHANIKA WILKERSON MD Service: ? Author Type: Physician [...] Care Visit completed when applicable. [facility] associatemarleni Wilkerson MD [facility] 05-04-2024 History of Present illness Narrative UNIVERSAL [...] Care Visit completed when applicable. [facility] lab associatemarleni Wilkerson MD documented in this encounter [facility] 05-02-2024 History of Present illness Narrative Radiology [...] PATIENT PRESENTS WITH AN IMPLANTABLE OR ATTACHED PROTOTYPER: No ALLERGIES: Reviewed and unchanged CONTRAST ALLERGY: NO. EXAM: MRI - CONTRAST TYPE: GROUP II PERIPHERAL IV DATA: Ambulatory: A peripheral IV was started in the Right antecubital site with a Butterfly: 23 gauge. RADIOLOGY DEPARTMENT: MR; Exam(s) Completed: Head: Multiple Sclerosis Central Vein Sign SIGNATURE: GIDEON Howe) PATIENT NAME: Keila Allen DATE: May 02, 2024 TIME: 1:32 PM documented in this encounter [facility] 05-02-2024 Note HNO ID: [id number] Author: NATE TOLEDO RT(R) Service: Radiology Author Type: Technologist Type: [...] PATIENT PRESENTS WITH AN IMPLANTABLE OR ATTACHED PROTOTYPER: No ALLERGIES: Reviewed and unchanged CONTRAST ALLERGY: NO. EXAM: MRI - CONTRAST TYPE: GROUP II PERIPHERAL IV DATA: Ambulatory: A peripheral IV was started in the Right antecubital site with a Butterfly: 23 gauge. RADIOLOGY DEPARTMENT: MR; Exam(s) Completed: Head: Multiple Sclerosis Central Vein Sign SIGNATURE: RT Carley(R) PATIENT NAME: Keila Allen DATE: May 02, 2024 TIME: 1:32 PM [facility] 04-21-2024 History of Present illness Narrative 15 minute mgqc-ng-luof follow-up anticoagulation appointment. INR performed in office per protocol. INR 2.1 (goal range: 2.0-3.0). Patient reports: Taking warfarin dosing as documented. Missed or extra doses of warfarin: No Changes to medications: YES Previously taking 3-4 APAP/day d/t increased pain secondary to fall 1 dose of Toradol in the Er Changes to lifestyle (diet / alcohol / smoking / activity): No Recent emergency department visit / hospitalization / health changes / new contraindication to current anticoagulant: YES ER visit for fall Signs/symptoms of bruising/bleeding or clotting or any intolerable adverse events: YES Bruising reported secondary to fall Upcoming procedures: No Anticoagulant prescription needed: No Seen referring provider in the last year Duration of therapy reviewed Assessment: INR is remaining stable in therapeutic range on current warfarin regimen. Plan: Patient instructed to continue warfarin 2.5 mg Sun/Thurs and 5 mg AOD. Check INR in 3 week(s). Patient verbalizes understanding of anticoagulant dosing instructions and information discussed. Dosing regimen, counseling, and follow-up appointment were provided to the patient. Patient reminded to call with questions or any medication changes. Patient instructed to seek medical attention if any major bleeding/bleeding that persists or worsens. Georgina Lockett RPH 04/21/24 1346 documented in this encounter [employer] 04-15-2024 Miscellaneous Notes Patient LVM stating that she is not feeling well and needs to cancel her 04/15/24 appt and r/s. Patient r/s to 04/21/24- first available. Patient will call back if she gets worse and is started on new medications. Noted. Will follow up at next OV. Georgina Lockett PharmD, [facility] April 19, 2024 10:08 AM documented in this encounter [facility] 04-15-2024 Telephone encounter Note Patient LVM stating that she is not feeling well and needs to cancel her 04/15/24 appt and r/s. Patient r/s to 04/21/24- first available. Patient will call back if she gets worse and is started on new medications. [facility] 04-15-2024 Telephone encounter Note Noted. Will follow up at next OV. Georgina Lockett PharmD, [facility] April 19, 2024 10:08 AM [facility] 04-06-2024 History of Present illness Narrative 15 minute udju-yz-idtr follow-up anticoagulation appointment. INR performed in office per protocol. INR 1.4 (goal range: 2.0-3.0). Patient reports: Taking warfarin dosing as documented. Missed or extra doses of warfarin: No Changes to medications: YES New sleep aid started; patient will call with what she is taking (OTC in addition to melatonin) Changes to lifestyle (diet / alcohol / smoking / activity): No Recent emergency department visit / hospitalization / health changes / new contraindication to current anticoagulant: No Signs/symptoms of bruising/bleeding or clotting or any intolerable adverse events: No Upcoming procedures: No Anticoagulant prescription needed: No Seen referring provider in the last year Duration of therapy reviewed Assessment: INR is low for unidentifiable reason. We will boost x1 and safety check in 1 week. Plan: Patient instructed to increase to warfarin 10 mg 04/06, then resume 2.5 mg Sun/Thurs and 5 mg AOD. Check INR in 1 week(s). Patient verbalizes understanding of anticoagulant dosing instructions and information discussed. Dosing regimen, counseling, and follow-up appointment were provided to the patient. Patient reminded to call with questions or any medication changes. Patient instructed to seek medical attention if any major bleeding/bleeding that persists or worsens. Georgina Lockett [facility] 04/07/24 0959 Patient called to inform the sleep aid is Diphenhydramine HCL 50 mg 1 tablet at HS. Has been taking it for about a month now. P:[phone] Returned call to patient. No DDI. Continue current plan. Christiano BirminghamD, [facility] April 07, 2024 9:57 AM Georgina Lockett [facility] 04/07/24 0959 documented in this encounter [facility] [employer] [facility] 03-23-2024 Instructions Cornell Alva MD - 03/23/2024 3:35 PM EDT Schedule an MRI of the brain at the [facility]. Schedule an EMG/NCS. [facility]. Follow up with Dr. Alva in several months after the MRI and EMG/NCS are complete. documented in this encounter [facility] 03-23-2024 History of Present illness Narrative Images from the original note were not included. [facility] NEW PATIENT EVALUATION/CONSULTATION Referral source: Maryjane Deutsch, [place] [id number] [place] [id number] Also followed by: Patient Care Team: Javan Julien MD as PCP - General (Neurology) Maryjane Deutsch CNP as Referring (Family Medicine) PRINCIPAL NEUROLOGIC DIAGNOSIS: White matter abnormality MRI brain, Cervical spondylosis with myelopathy DISEASE SUMMARY Date of onset: 2016 (approx) Date of diagnosis of MS: work [...] expected to be with me at the [facility]. PRESENTING HISTORY: 06/02/[address] [place] [address] Capellan: Approximately 20 years [...] of the brain, particularly changes in the [id number] interval, reportedly raised suspicion for MS. One [...] get a gastric sleeve surgery done in [place]. No LP was performed because she is on Coumadin. The above history was reviewed and verified as complete and accurate. INTERVAL HISTORY: Her symptoms have been largely stable since her last visit. Underwent bariatric surgery [place] 2017. Lost 150 lbs. Current Symptoms: Recurrent [...] gabapentin, magnesium, metoprolol succinate er, omega-3/dha/epa/fish oil, pk356-vywx-najsl acid, vit c,w-ft-efmwg-lutein-zeaxan, rosuvastatin, solifenacin, topiramate, warfarin, and warfarin. Social [...] the arms and legs was performed including knioq-ok-lercd, rapid-alternating, and fine movements. Rapid movements were smooth with good divya and there was no dysmetria or ataxia. HKS limited by pyramidal weakness. Sensory examination: Light touch: Normal all four extremities. Standard gait was ataxic with bilateral hip flexion weakness. REVIEW OF RECORDS: 05/12/2018 MR Brain W/O IVCON ([facility]): Findings: There is no significant difference compared [...] vessel disease. 05/25/2018 MR C-spine W/O IVCON ([facility]): No white matter cord lesion is seen [...] signal abnormality. Multilevel degenerative changes. ASSESSMENT: Keila Allen is a 68-year-old woman with a history of multiple vascular risk factors who initially presented to the [facility] in May 2018 for further evaluation [...] [facility] Office Visit on 06/26/24 MRI 7T BRAIN WO/W IVCON MRI CERVICAL SPINE WO/W IVCON *Canceled* MRI THORACIC SPINE WO/W IVCON *Canceled* [facility](NEURO/NI) The chart was reviewed for possible participation in the following studies: NA I spent a total of 60 minutes on the date of the service which included preparing to see the patient, etrl-uc-avsv patient care, completing clinical documentation, obtaining and/or reviewing separately obtained history, performing a medically appropriate examination, counseling and educating the patient/family/caregiver, ordering medications, tests, or procedures, independently interpreting results (not separately reported), and communicating results to the patient/family/caregiver. Cornell Alva MD [facility] Multiple Sclerosis documented in this encounter [facility] 02-23-2024 History of Present illness Narrative 15 minute iwdj-rn-jegi follow-up anticoagulation appointment. INR performed in office [...] No Upcoming procedures: No Anticoagulant prescription needed: YES- Katya Maki Seen referring provider in the last year-yes Duration of therapy reviewed-yes Assessment: INR is remaining stable in therapeutic range on current warfarin regimen. Plan: Patient instructed to continue warfarin 2.5 mg Sun/Thurs and 5 mg AOD. Check INR in 4 week(s). Patient verbalizes understanding of anticoagulant dosing instructions and information discussed. Dosing regimen, counseling, and follow-up appointment were provided to the patient. Patient reminded to call with questions or any medication changes. Patient instructed to seek medical attention if any major bleeding/bleeding that persists or worsens. Georgina Lockett RPH 02/23/24 1145 documented in this encounter [employer] 02-03-2024 History of Present illness Narrative 15 minute gsqw-wy-euxi follow-up anticoagulation appointment. INR performed in office per protocol. INR 1.9 (goal range: 2.0-3.0). Patient reports: Taking warfarin dosing as documented. Missed or extra doses of warfarin: No Changes to medications: No Changes to lifestyle (diet / alcohol / smoking / activity): YES Eating varied currently Recent emergency department visit / hospitalization / health changes / new contraindication to current anticoagulant: No Signs/symptoms of bruising/bleeding or clotting or any intolerable adverse events: YES Increased bruises reported; small Upcoming procedures: No Anticoagulant prescription needed: No Seen referring provider in the last year Duration of therapy reviewed Assessment: INR is subtherapeutic. We will continue current dosing and safety check in 2 weeks. Patient follows with [facility] cardiology. PCP declined referral, therefore we will send new referral to patient's biofuels technology development manager (This is more appropriate provider given Dx. of Afib) Plan: Patient instructed to continue warfarin 2.5 mg Sun/Thurs and 5 mg AOD. Check INR in 2 week(s). Patient verbalizes understanding of anticoagulant dosing instructions and information discussed. Dosing regimen, counseling, and follow-up appointment were provided to the patient. Patient reminded to call with questions or any medication changes. Patient instructed to seek medical attention if any major bleeding/bleeding that persists or worsens. Georgina Lockett RPH 02/03/24 1523 New referral requested from [facility] cardiology; Gloria Puente-CNP. Christiano BirminghamD, BCPS February 03, 2024 3:23 PM Georgina Lockett [facility] 02/03/24 1523 documented in this encounter [facility] 01-27-2024 Miscellaneous Notes Patient LVM requesting to cx her appointment as she is sick. Security Supervisor LVM for her to call back. documented in this encounter [facility] 01-27-2024 Telephone encounter Note Patient LVM requesting to cx her appointment as she is sick. Security Supervisor LVM for her to call back. [facility] 01-13-2024 History of Present illness Narrative pt has new PCP Dr Georgina Deutsch. Today I will send a 30 d/s only refill under previous PCP Dr Mann, while we wait for referral to come back from new PCP Dr. Georgina Deutsch. Eamon Phan RPH 01/13/24 1426 documented in this encounter [facility] 01-13-2024 History of Present illness Narrative 15 minute kdge-nl-vzdj follow-up anticoagulation appointment. INR performed in office per protocol. INR 4.1 (goal range: 2.0-3.0). Patient reports: Taking warfarin dosing as documented. Missed or extra doses of warfarin: Yes, Extra - pt been taking 2.5mg Only 1 day/week, not 2 days/week as she was instructed at last appt Changes to medications: No Changes to lifestyle (diet / alcohol / smoking / activity): YES Patient is having protein shakes to help supplement nutrition but not as consistent as she intended to from last appt Has Continued going to aquatics exercise but not as consistent as she intended to from last appt Recent emergency department visit / hospitalization / health changes / new contraindication to current anticoagulant: No Signs/symptoms of bruising/bleeding or clotting or any intolerable adverse events: No Upcoming procedures: No Anticoagulant prescription needed: No Seen referring provider in the last year Duration of therapy reviewed Assessment: INR is supra-therapeutic this time. Due to pt has been taking more weekly dose than she was instructed at last appt - was supposed to take 2.5mg on Thu AND , BUT pt been taking 2.5mg ONLY on Sundays - been taking 5mg on Th. Also pt's exercise and protein shake has not been as often as she felt it would be. So today we are decreasing dose for today, and then keeping the INTENDED dose from last appt - which would be a decrease in weekly dose in reality Plan: Patient instructed to decrease warfarin dose today to 2.5mg, and to decrease weekly dose to 2.5 mg Sun/Thurs and 5 mg AOD. Check INR in 2 week(s). *Also, pt has new PCP Dr Georgina Deutsch. Today I will send a 30 d/s only refill under previous PCP Dr Mann, while we wait for referral to come back from new PCP Dr. Georgina Deutsch. I sent [facility] print support specialist a message, asking that they send the referral request Patient verbalizes understanding of anticoagulant dosing instructions and information discussed. Dosing regimen, counseling, and follow-up appointment were provided to the patient. Patient reminded to call with questions or any medication changes. Patient instructed to seek medical attention if any major bleeding/bleeding that persists or worsens. Eamon Phan RP 01/13/24 1422 A warfarin referral and consult agreement were faxed to ALEXANDRU Alexis for her to complete and sign. documented in this encounter [facility] 01-05-2024 History of Present illness Narrative Fax received from [facility] in [place] (P: [phone], F: [phone]) requesting a refill on patient's warfarin. Patient is overdue for INR check, but is scheduled on 01/08/24. It appears that she may have established with a new PCP since moving to [place]. Will plan to discuss with patient at upcoming appt and refill can be sent at that time. We may need an updated referral. It appears she established care with Maryjane Deutsch NP on 10/28/23. Lissa Montes RPH 01/05/24 1630 documented in this encounter [employer] 12-18-2023 History of Present illness Narrative Keila Allen had concerns including PVD. HPI 1 year [...] min Stress: No Stress Concern Present (08/09/2023) [employer] - Occupational Stress Questionnaire [...] of Onset Cancer Mother Diabetes Mother Ms. Allen has a past medical history of Anemia, [...] Pupils Pupils Right PERRL Left PERRL Visual [place] (Counting fingers) Right Left Full Full Extraocular [...] Return Visit: 8-10 mo + DFE Physician: Ivan Cleary MD Scribe: JOSE ENRIQUE SHI Scribe Statement: Scribed for and in the presence of Ivan Cleary MD by DIVINA GASTELUM, COA I, Ivan Cleary MD personally performed the services described in the documentation, as scribed by Divina Gastelum in my presence, and it is both accurate and complete. documented in this encounter [facility] 12-18-2023 History of Present illness Narrative Summary: 5 years s/p sleeve gastrectomy, Dr. Gil Images from the original note were not included. [facility] [address] [place] [id number] Subjective Patient ID: Keila Allen is a 68 y.o. female who is [...] diet. She will reach out for a gluer and wedger visit if she feels she needs help with this. No abdominal pain. + heartburn, mild, occurs about every other day. She continues on Protonix daily and takes TUMS PRN. No nausea or emesis. No constipation. No diarrhea. No dysphagia. For exercise, she started [employer] aerobics at the [facility]. She drinks EtOH occasionally, once/month, at [...] Weight and Comorbid Conditions: 1. Morbid Obesity [place] body weight: 155 lb BMI 49.67 Personal [...] asleep 3. Hypertension: Continues on Amlodipine per garbage pick up man 4. GERD: Continues to take Protonix; has mild breakthrough symptoms 5. Hyperlipidemia: Continues on rosuvastatin Past Medical History: Diagnosis Date Anemia iron deficiency Arthritis Asthma Atrial fibrillation Atrial fibrillation (HCC) [I48.91] Bilateral shoulder pain Bladder disorder Cataract Cervical disc disorder CKD (chronic kidney disease) renal insuff/follows with Dr Camacho never on dialysis Dental disease chipped Depression Depression with anxiety Disc disorder cervical, thoracic, lumbosacral Dry eye syndrome Edema legs Falls frequently Gastrointestinal hemorrhage Added automatically from request for surgery [id number] GERD (gastroesophageal reflux disease) Giant cell arteritis ([facility]-H[facility]) Hyperlipidemia Hypertension Low back pain Lumbar disc disorder LVH (left ventricular hypertrophy) AND DIASTOLIC DYSFUNCTION Lymphedema Macular drusen, bilateral Migraine Mononucleosis Neuropathy Obesity h/o bariatric surgery 01/2018, lost >100# Osteoarthritis of cervical spine Posterior vitreous detachment of right eye Presbyopia Prolonged Q-T interval on ECG 12/2018 Rotator cuff arthropathy of right shoulder Added automatically from request for surgery [id number] Sleep apnea uses c pap/states doesn`t use [...] developed and its performance characteristics determined by [facility] ([facility]). It has not been cleared or approved by the FDA. [facility] is regulated under CLIA as qualified to perform high-complexity testing. This test is used for clinical purposes. It should not be regarded as investigational or for research. Test Performed By: [facility] [address] [place] [address] Ict Analyst: Maxime Weston III, M.D. CLIA #[id number]^ Vitals and Bariatric Vitals: Vitals: 12/18/23 1100 [...] make dietary changes on own and schedule gluer and wedger video visit in 2-3 months PRN. Continue [...] procedures Referring and communicating with other health urgent care nurse practitioner (not separately reported) Documenting clinical information in the electronic or other health record Independently interpreting results (not separately reported) and communicating results to the patient/family/caregiver Nuria Rojas PA-C 12/18/23 1250 [facility] Instructions Nuria Rojas PA-C - 12/18/2023 11:30 AM EDT 5 years s/p VSG, down 120 lbs (78.8% EBWL) Continue high protein, high veggie diet Consume 4-5 small meals per day, eating something every 3-4 hours Continue water intake; goal is at least 64 oz of water per day Increase exercise; goal is 150 minutes cardio per week and 2 days strength training Schedule gluer and wedger video visit if you notice more weight regain Continue PNV or MVT, calcium and vitamin B12 for life Follow up labs in 1 year, obtain 1 wk prior to scheduled appointment Follow up in 1 year for annual visit [facility] History of Present illness Narrative 15 minute vzro-yg-jgot follow-up anticoagulation appointment. INR performed in office [...] to help supplement nutrition Started going to [employer] exercise Recent emergency department visit / hospitalization [...] bleeding/bleeding that persists or worsens. Georgina Lockett [facility] 12/10/23 1205 documented in this encounter [facility] 11-12-2023 History of Present illness Narrative 15 minute hmxh-yj-hxhg follow-up anticoagulation appointment. INR performed in office [...] bleeding/bleeding that persists or worsens. Georgina Lockett [facility] 11/12/23 1158 documented in this encounter [facility] 11-11-2023 Telephone encounter Note Patient has a 40.00 copay with unlimited visits Ok to schedule with Jacquie Brooks [facility] 11-11-2023 Miscellaneous Notes Patient has a 40.00 copay with unlimited visits Ok to schedule with Jacquie Brooks documented in this encounter [facility] 11-04-2023 Miscellaneous Notes The patient was a no show today. Security Supervisor GEOFFREY requesting patient call back to schedule another appointment. documented in this encounter [facility] 11-04-2023 Telephone encounter Note The patient was a no show today. Security Supervisor GEOFFREY requesting patient call back to schedule another appointment. [facility] 10-28-2023 History of Present illness Narrative Images from the original note were not included. Subjective Patient ID: Keila Allen is a 68 y.o. female who presents [...] had colonoscopy approx 2 years ago, in [place] on [address]-thinks she had polyps. Sees [facility] for INR. Last INR approx 5-6 weeks, thinks it was 2.2 then, has appt this Thursday. Had covid Aug 16 and since then more tired. Moved here from [place] in early April, friend neighbor broke hip, helped her, so not unpacked yet. 2020, 1.5 years ago lost his seeing eye dog. Used to see someone in [place] for mental health meds and counseling, not [...] . Hx of bariatric OR 2018. Since 2016 falling for no reason, not dizzy. Neurology thought she could have MS- but not sure. Pt states she plans to go to the [facility] for water aerobic class Review of [...] lemonade, , lemonade, canberry, tomoato, mashed pot, tamazight fries, pot cook Mac and cheese, spagetti, [...] machine at home she can use. Wearing balir hose Recurrent major depression in partial remission (HCC) (CMS/HCC) Comments: On Cymbalta. Pt is interested in seeing [facility] counselor-will refer. She will have us order med at this time Urinary urgency Comments: Sees Urology White matter abnormality on MRI of brain Comments: Hx of sees Neurology-used to see Michelle Cunningham, last couple of years ago Tinnitus, unspecified [...] to find it. Could see Clinic in [place]-she will let me know Degeneration of cervical intervertebral disc Comments: Hx of Neurogenic claudication Comments: Hx of Bilateral shoulder pain, unspecified chronicity Comments: Hx of Congenital spondylolisthesis Comments: Hx of Disc disorder Comments: Hx of Idiopathic scoliosis and kyphoscoliosis Comments: Has seen Neurosurgeon[facility] and one at [facility], Could do surgery-pt prefers to hold [...] 06/20. Pt states she had Dexa in [place] approx 2 years ago-thinks she had osteopenia. Pt thinks she had colonoscopy in [place] couple of years ago, she will check [...] of Vitreous floater right eye: Hx of assisted use of 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: Hx of Gait disorder Fatigue Over 50 in visit today, complex pt, reviewed Dx's, Immunizations, refer to counselor documented in this encounter [facility] 10-27-2023 History of Present illness Narrative Annual lab orders entered. Patient has annual appointment scheduled 11/17/23 with Marci. documented in this encounter [facility] 10-21-2023 Miscellaneous Notes Attempted to call patient to schedule follow-up appointment. Needed to leave a message on importance of follow-up care Second attempt made to encourage follow up care via [employer] documented in this encounter [facility] 10-21-2023 Telephone encounter Note Attempted to call patient to schedule follow-up appointment. Needed to leave a message on importance of follow-up care [facility] 10-21-2023 Telephone encounter Note Second attempt made to encourage follow up care via [employer] [facility] 10-19-2023 History of Present illness Narrative Keila Allen had concerns including Eye Exam. HPI Eye [...] min Stress: No Stress Concern Present (08/09/2023) [place] [facility] [employer] - Occupational Stress Questionnaire [...] Physically Abused: No Sexually Abused: No Ms. Allen has a past medical history of Anemia, [...] Normal Normal Refraction Wearing Rx Sphere Cylinder [place] Add Right +0.75 -0.50 060 +2.50 Left +0.75 -0.75 135 +2.50 Last Rx, only +2.50 OTC readers Manifest Refraction (Auto) Sphere Cylinder [place] Dist [place] Add Right +2.00 -0.75 062 Left +2.50 -1.50 100 Manifest Refraction #2 Sphere Cylinder [place] Dist [place] Add Right +1.75 -0.75 075 20/25 +2.50 Left +2.25 -1.50 100 20/50 +2.50 Manifest Refraction Comments M2 Dr. Betancur performed today Final Rx Sphere Cylinder [place] Dist [place] Add Right +1.75 -0.75 075 [...] Visit: As scheduled with Dr. Cleary Physician: GUIDO BETANCUR OD Ui Developer With [employer]: ELISABET CARTER Scribed for and in the presence of GUIDO BETANCUR OD by ELISABET CARTER I, GUIDO BETANCUR OD personally performed the services described in the documentation, as scribed by ELISABET CARTER in my presence, and it is both accurate and complete. Patient accompanied by self. [facility] History of Present illness Narrative 15 minute [id number] follow-up anticoagulation appointment. INR performed in office [...] [facility] 10/02/23 0949 documented in this encounter [facility] 07-23-2023 Evaluation note Encounter Date Diagnosis Assessment Notes Jun, Recurrent UTI (ICD-10 - N39.0) Preventative modalities with Vit C and daily use of theraworx urinary wipes to continue. She will make appt for 6 monts but follow up with me sooner is concerns arise. [facility] 08-30-2023 Evaluation note* Encounter Date Diagnosis [...] to try preventative measures with Theraworkx U karen to be used twice a day and [...] will follow-up with me in 6 weeks [facility] Other Evaluation note* Diagnosis First degree AV block- Primary [...] Recurrent major depression in partial remission (HCC) ([facility]) Major depressive disorder, recurrent episode, in partial or unspecified remission Urinary urgency Urgency of urination White matter abnormality on MRI of brain Tinnitus, unspecified laterality Repeated falls Tear film insufficiency, unspecified laterality Nuclear sclerotic cataract of both eyes Senile nuclear sclerosis Posterior vitreous detachment of right eye Vitreous degeneration Age-related osteoporosis without current pathological fracture ([facility]) Primary lymphedema Degeneration of cervical intervertebral disc Neurogenic claudication Spinal stenosis of lumbar region Bilateral shoulder pain, unspecified chronicity Congenital spondylolisthesis Disc disorder Other and unspecified disc disorder of unspecified region Idiopathic scoliosis and kyphoscoliosis Scoliosis (and kyphoscoliosis), idiopathic Inflammation of sacroiliac joint ([facility]) Sacroiliitis, not elsewhere classified Presence of artificial knee joint, bilateral Microalbuminuria Proteinuria Urge incontinence Bladder disorder Unspecified disorder of bladder Status post bariatric surgery Bariatric surgery status Atrial fibrillation, unspecified type (CMS/[facility]) Hypertensive heart and chronic kidney disease without heart failure, with stage 1 through stage 4 chronic kidney disease, or unspecified chronic kidney disease ([facility]) Gastroesophageal reflux disease, unspecified whether esophagitis present Decreased hearing, unspecified laterality Encounter to establish care Diarrhea, unspecified type Visual impairment Unspecified visual loss Vitreous floaters of right eye 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 Gait disorder Abnormality of gait [facility] Demyelinating disease of central nervous system (HCC)- Primary Demyelinating disease of central nervous system, unspecified Cervical spondylosis with myelopathy Ataxia Lack of coordination [facility] Demyelinating disease of central nervous system (HCC) Demyelinating disease of central nervous system, unspecified [facility] Diagnosis Radiculopathy, lumbosacral region- Primary Thoracic or lumbosacral neuritis or radiculitis, unspecified 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 [facility] Diagnosis Ataxia Lack of coordination Radiculopathy, lumbosacral region- Primary Thoracic or lumbosacral neuritis or radiculitis, unspecified 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 [facility] Diagnosis Idiopathic progressive polyneuropathy- Primary [facility] Diagnosis Closed displaced supracondylar fracture of distal end of left femur without intracondylar extension with routine healing, subsequent encounter- Primary [facility]* Diagnosis Recurrent major depression in partial remission (HCC) (CMS/HCC) Major depressive disorder, recurrent episode, in partial or unspecified remission Primary hypertension (CMS/HCC) Unspecified essential hypertension documented [facility]* Diagnosis Internal derangement of left shoulder- Primary documented in this encounter [facility]* Diagnosis Essential hypertension, benign (CMS/HCC)- Primary Essential hypertension, benign Hypertensive heart and chronic kidney disease without heart failure, with stage 1 through stage 4 chronic kidney disease, or unspecified chronic kidney disease (CMS/HCC) Stage 3b chronic kidney disease (HCC) (CMS/HCC) Dyslipidemia (CMS/HCC) Other and unspecified hyperlipidemia Hyperparathyroidism, secondary renal (CMS/HCC) Secondary hyperparathyroidism (of renal origin) Age-related osteoporosis without current pathological fracture (CMS/HCC) Atrial fibrillation, unspecified type (CMS/HCC) Major depressive disorder, single episode, moderate (HCC) (CMS/HCC) Major depressive disorder, single episode, moderate Iron deficiency anemia secondary to inadequate dietary iron intake Gait disorder Abnormality of gait Gastrointestinal hemorrhage, unspecified gastrointestinal hemorrhage type Prolonged Q-T interval on ECG Nonspecific abnormal electrocardiogram (ECG) (EKG) Preoperative clearance Unspecified pre-operative examination Left shoulder pain, unspecified chronicity Depression with anxiety Dysthymic disorder Headache syndrome Insomnia, unspecified type White matter disease LVH (left ventricular hypertrophy) Cardiomegaly First degree AV block First degree atrioventricular block Status post bariatric surgery Bariatric surgery status Presence of artificial knee joint, bilateral History of borderline diabetes mellitus Dental disease Unspecified disorder of the teeth and supporting structures Edema, unspecified type Impairment of balance documented in this encounter [facility]* Diagnosis Closed displaced supracondylar fracture of distal end of left femur without intracondylar extension with routine healing, subsequent encounter- Primary [facility]* 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 Atrial fibrillation, unspecified type ([facility]HCC) [facility] Diagnosis assisted current use of 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- Primary [facility]* 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- Primary [facility]* 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- Primary [facility]* 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- Primary [facility]* Diagnosis Hyperopia with astigmatism and presbyopia, bilateral- Primary [facility]* Diagnosis History of sleeve gastrectomy- Primary 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 Other and unspecified postsurgical nonabsorption History of hyperlipidemia History of anemia Personal history of diseases of blood and blood-forming organs [facility]* Diagnosis assisted current use of 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- Primary Atrial fibrillation, unspecified type (CMS-HCC) [facility]* Diagnosis assisted current use of 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- Primary [facility]* 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- Primary [facility]* Diagnosis Atrial fibrillation, unspecified type (CMS-HCC)- Primary [facility]* Diagnosis History of sleeve gastrectomy- Primary 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 Other and unspecified postsurgical nonabsorption [facility]* Diagnosis Vitreous floaters of both eyes- Primary Posterior vitreous detachment of both eyes Vitreous degeneration Dry eyes, bilateral Nuclear sclerotic cataract of both eyes Senile nuclear sclerosis Macular drusen, bilateral [facility]* Diagnosis Closed displaced supracondylar fracture of distal end of left femur without intracondylar extension with routine healing, subsequent encounter- Primary Age-related osteoporosis without current pathological fracture [facility]* Diagnosis Closed displaced supracondylar fracture of distal end of left femur without intracondylar extension with routine healing, subsequent encounter [facility]* Diagnosis Closed displaced supracondylar fracture of distal end of left femur without intracondylar extension with routine healing, subsequent encounter [facility]* Diagnosis 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)- Primary 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) [facility]* Diagnosis assisted current use of 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- Primary [facility]* Diagnosis Age-related osteoporosis without current pathological fracture- Primary [facility]* Diagnosis Status post revision of total replacement of left knee- Primary 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 [facility]* 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- Primary [facility]* Diagnosis Closed fracture of proximal end of left tibia, unspecified fracture morphology, initial encounter- Primary Closed fracture of proximal end of left tibia, unspecified fracture morphology, initial encounter JUDE (acute kidney injury) documented [facility] encounter [facility]* Diagnosis assisted current use of 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- Primary [facility]* Diagnosis Periprosthetic fracture of proximal end of tibia, initial encounter- Primary 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 documented [facility]* Diagnosis Iron deficiency anemia secondary to blood loss (chronic)- Primary documented [facility]* Diagnosis Closed fracture of proximal end of left tibia with routine healing, unspecified fracture morphology, subsequent encounter- Primary Periprosthetic fracture of proximal end of tibia, subsequent encounter Pain of left calf Anemia, unspecified type Age-related osteoporosis with current pathological fracture of left lower leg with routine healing Age-related osteoporosis without current pathological fracture Pain of left calf documented [facility] encounter [facility]* Diagnosis Urge incontinence- Primary Urinary tract infection without hematuria, site unspecified documented [facility] encounter [facility]* Diagnosis Urge incontinence- Primary Urinary tract infection without hematuria, site unspecified Open leg wound, left, initial encounter- Primary Closed displaced supracondylar fracture of distal end of left femur without intracondylar extension with routine healing, subsequent encounter Other closed fracture of proximal end of left tibia with routine healing, subsequent encounter [facility]* Diagnosis Urge incontinence- Primary Urinary tract infection without hematuria, site unspecified Open leg wound, left, initial encounter- Primary documented [facility]* Diagnosis Urge incontinence- Primary Urinary tract infection without hematuria, site unspecified Closed displaced supracondylar fracture of distal end of left femur without intracondylar extension with routine healing, subsequent encounter- Primary Other closed fracture of proximal end of left tibia with routine healing, subsequent encounter Open leg wound, left, initial encounter documented [facility]* Diagnosis Urge incontinence- Primary Urinary tract infection without hematuria, site unspecified Leg wound, left, subsequent encounter- Primary Periprosthetic fracture of proximal end of tibia, subsequent encounter Status post revision of total replacement of left knee documented [facility]* Diagnosis Urge incontinence- Primary Urinary tract infection without hematuria, site unspecified Status post total knee replacement using cement, left- Primary Periprosthetic fracture of proximal end of tibia, subsequent encounter Obesity (BMI 35.0-39.9 without comorbidity) documented [facility] encounter [facility]* Diagnosis Idiopathic progressive polyneuropathy- Primary Degenerative disc disease, cervical Degeneration of cervical intervertebral disc Degeneration of intervertebral disc of lumbar region with discogenic back pain and lower extremity pain Degenerative disc disease, thoracic Degeneration of thoracic or thoracolumbar intervertebral disc documented in this encounter [facility] general Narrative - Reported* Type Description Date [...] History total left knee replacem ent 04/11 [facility] Other InstructionsNot on filedocumented in this encounter [facility] [...] on filedocumented in this encounter [facility]* Attachments The following attachments cannot be sent through Care Everywhere. * How to Care for Your Eyes ([place]ese) documented in [facility] System[facility]ructionsNot on file documented in this encounterPro[facility] SystemInstructionsNot on file documented in this encounterPro[facility] System[facility]ructions* Attachments The following attachments cannot be sent through Care Everywhere. * Osteoporosis and osteopenia (low bone mass) ([place]ese) * Romosozumab? ADULT ([place]ese) * Denosumab? ADULT ([place]ese) documented in this encounterPro[facility] SystemInstructionsNot on file documented in this encounterProMedica [facility] SystemInstructionsNot on file documented in this encounterPro[facility]ica [facility] SystemInstructions* Patient Instructions* STALIN Petty - 12/14/2024 1:15 PM EDT To whom it may concern, Office protocol- Dr Delaney, Dr Sepulveda, Dr Rodriguez, Dr Navarro, Dr Alcala Antibiotic protocol following total hip arthroplasty, hemiarthroplasty or total knee arthroplasty: Recommend no routine cleaning for 3 months following procedure Recommend antibiotics 1 hour prior to dental cleaning x 1 year after surgery. Recommend antibiotics 1 hour prior to dental procedure for lifetime A. Amoxicillin 500mg - take 4 tablets PO 1 hour prior to procedure/cleaning If patient has a penicillin or amoxicillin allergy use B. Clindamycin 300mg capsule- take 2 PO 1 hour prior to procedure/cleaning documented in this encounterProMedisd [facility] SystemInstructionsNot on file documented in this encounterProU[facility] SystemInstructionsNot on file documented in this encounterProMedisd Health SystemInstructionsNot on file documented in this encounterProTr[facility] SystemInstructionsNot on file documented in this encounterProMedisd Health SystemInstructionsNot on file documented in this encounterProTrumbull [facility] SystemReason for referral (narrative)* Outpatient Procedure (Routine) - Pending Review Specialty Diagnoses / Procedures Referred By Dilip t Referred To Contact [facility] Diagnoses Ataxia Procedures EMG(NEURO/NI) NERVE CONDUCTION STUDIES 9-10 STUDIES Cornell Alva MD [address] [address] [facility] [address] [place] [address] Referral ID Status Reason Start Date Expiration Date Visits Requested Visits Authorized [id number] Pending Review Auto-Generat ed Referral 03/23/2024 03/23/2025 1 1 * Consult, Test, Treat (Routine) - Authorized Specialty Diagnoses / Procedures Referred By Dilip t Referred To Contact [facility] Diagnoses Cervical spondylosis with myelopathy Procedures [facility] OFFICE/OUTPATIENT [facility] 60 MINUTES Cornell Alva MD [address] [address] Referral ID Status Reason Start Date Expiration Date Visits Requested Visits Authorized [id number] Authorized PCP Requested Referral 03/23/2024 03/23/2025 1 1 [facility] for referral (narrative)* Consultation (Routine) - Pending Review Specialty Diagnoses / Procedures Referred By Dilip t Referred To Contact Nutrition Diagnoses History of sleeve gastrectomy 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 Nuria Rojas PA-C [id number] [facility] [address] [place] [address] Referral ID Status Reason Start Date Expiration Date Visits Requested Visits Authorized [id number] Pending Review Specialty Services Required 12/18/2023 12/17/2024 1 1 [facility] Consultation (Routine) - Pending Review Specialty Diagnoses / Procedures Referred By Dilip rodrigez Referred To Contact Orthopedic Surgery Diagnoses Age-related osteoporosis without current pathological fracture Madeleine Kelly PA-C [id number] [facility], [address] [place] [address] t Ortho [facility] [address] [facility] [address] [place] [address] Referral ID Status Reason Start Date Expiration Date V isits Requested Visits Authorized [id number] Pending Review 06/22/2024 06/22/2025 1 1 [facility] Summary Purpose Family History No Family History Records FoundNo Family History Records FoundNo Family History Records FoundNo Family History Records FoundNo Family History Records FoundNo Family History Records FoundNo Family History Records FoundNo Family History Records FoundNo Family History Records FoundNo Family History Records Found Advance Directives No Advanced Directives Records Found Date Activated Date Inactivated Comments 01/12/2025 11:09 PM 01/18/2025 5:42 PM Date Activated Date Inactivated Comments 11/16/2024 9:42 PM 11/22/2024 6:44 PM Date Activated Date Inactivated Comments 06/03/2024 1:38 AM 06/10/2024 1:55 PM Date Activated Date Inactivated Comments 08/09/2023 6:35 PM 08/12/2023 3:58 PM Date Activated Date Inactivated Comments 10/06/2022 3:21 PM 10/09/2022 5:31 PM Date Activated Date Inactivated Comments 06/03/2024 1:38 AM Date Activated Date Inactivated Comments 08/09/2023 6:35 PM 08/12/2023 3:58 PM Date Activated Date Inactivated Comments 10/06/2022 3:21 PM 10/09/2022 5:31 PM Date Activated Date Inactivated Comments 03/18/2022 7:50 PM 03/24/2022 7:48 PM Date Activated Date Inactivated Comments 12/27/2018 5:26 PM 01/07/2019 10:29 PM Documents on File Type Date Recorded Patient Driver Recruiter Expl anation ACP-Advance Directive ACP-Power of Title Searcher Documents on File Type Date Recorded Patient Driver Recruiter Expl anation ACP-Advance Directive ACP-Power of Title Searcher Date Activated Date Inactivated Comments 06/03/2024 1:38 AM 06/10/2024 1:55 PM Date Activated Date Inactivated Comments 06/03/2024 1:38 AM 06/10/2024 1:55 PM Date Activated Date Inactivated Comments 08/09/2023 6:35 PM 08/12/2023 3:58 PM Date Activated Date Inactivated Comments 10/06/2022 3:21 PM 10/09/2022 5:31 PM Date Activated Date Inactivated Comments 03/18/2022 7:50 PM 03/24/2022 7:48 PM Date Activated Date Inactivated Comments 12/27/2018 5:26 PM 01/07/2019 10:29 PM Date Activated Date Inactivated Comments 08/09/2023 6:35 PM 08/12/2023 3:58 PM Date Activated Date Inactivated Comments 10/06/2022 3:21 PM 10/09/2022 5:31 PM Date Activated Date Inactivated Comments 03/18/2022 7:50 PM 03/24/2022 7:48 PM Date Activated Date Inactivated Comments 12/27/2018 5:26 PM 01/07/2019 10:29 PM Date Activated Date Inactivated Comments 07/29/2018 8:38 AM 07/31/2018 6:38 PM Latest [...] 6:38 PM Date Activated Date Inactivated Comments 11/16/2024 9:42 PM 11/22/2024 6:44 PM Date Activated Date Inactivated Comments 06/03/2024 1:38 AM 06/10/2024 1:55 PM Date Activated Date Inactivated Comments 08/09/2023 6:35 PM 08/12/2023 3:58 PM Date Activated Date Inactivated Comments 10/06/2022 3:21 PM 10/09/2022 5:31 PM Date Activated Date Inactivated Comments 03/18/2022 7:50 PM 03/24/2022 7:48 PM Date Activated Date Inactivated Comments 01/12/2025 11:09 PM Date Activated Date Inactivated Comments 01/12/2025 11:09 PM 01/18/2025 5:42 PM Date Activated Date Inactivated Comments 11/16/2024 9:42 PM 11/22/2024 6:44 PM Date Activated Date Inactivated Comments 06/03/2024 1:38 AM 06/10/2024 1:55 PM Date Activated Date Inactivated Comments 08/09/2023 6:35 PM 08/12/2023 3:58 PM Date Activated Date Inactivated Comments 10/06/2022 3:21 PM 10/09/2022 5:31 PM Documents on File Type Date Recorded Patient Driver Recruiter Expl anation Durable Power of Title Searcher 01/26/2025 9:49 AM Living Will 01/26/2025 9:47 AM Documents on File Type Date Recorded Patient Driver Recruiter Expl anation Durable Power of Title Searcher 01/26/2025 9:49 AM Living Will 01/26/2025 9:47 AM Discharge Instructions * Instructions* Jany Santizo, - 08/07/2020 [facility] POST-ENDOSCOPY INSTRUCTIONS: 1. ACTIVITY No [...] PLEASE call your doctor @ or the [facility] [phone] documented in this encounter History of Present [...] Referral Specialty Diagnoses / Procedures Referred By Contcassandra t Referred To Contact Neurology Diagnoses Idiopathic progressive polyneuropathy Procedures CONSULT TO NEUROLOGY OFFICE/OUTPATIENT [facility] 60 MINUTES Cornell Alva MD [address] [address] Referral ID Status Reason Start Date Expiration Date Visits Requested Visits Authorized [id number] Authorized PCP Requested Referral 05/12/2024 05/12/2025 1 1 Additional Source Comments INFORMATION SOURCE (unrecogn ized section and content) DATE CREATED AUTHOR 01/04/2019 [facility] DATE CREATED AUTHOR AUTHOR'S ORGANIZ ATION 08/07/2020 [facility] DATE CREATED AUTHOR AUTHOR'S ORGANIZ ATION 08/08/2020 [facility] DATE CREATED AUTHOR AUTHOR'S ORGANIZ ATION 11/17/2024 [facility] DATE CREATED AUTHOR AUTHOR'S ORGANIZ ATION 12/16/2024 [place] DATE CREATED AUTHOR AUTHOR'S ORGANIZ ATION 02/25/2025 [facility] DATE CREATED AUTHOR AUTHOR'S ORGANIZ ATION 04/15/2025 [facility] DATE CREATED AUTHOR AUTHOR'S ORGANIZ ATION 04/17/2025 [facility] DATE CREATED AUTHOR AUTHOR'S ORGANIZ ATION 04/19/2025 [facility] DATE CREATED AUTHOR AUTHOR'S ORGANIZ ATION 04/29/2025 [facility] Reason for Visit (unrecogniz ed section and content) Status Reason Specialty Diagnoses / Procedures Referre d By Contact Referred To Contact Diagnoses Encounter for screening colonoscopy SCREENING Procedures DC COLONOSCOPY FLX DX W/COLLJ SPEC WHEN PFRMD COLORECTAL CANCER SCREENING, NOT HIGH RISK Jany Santizo, [address] [facility], [address] [place] [address] [facility] Reason Comments New patient exam Diarrhea Pt's [...] be from her new medictions. Reason Comments New Patient Evaluation Reason Onset Date Comments EMG 05/04/2024 Specialty Diagnoses / Procedures Referred By Dilip rodrigez Referred To Contact [facility] Diagnoses Ataxia Procedures EMG(NEURO/NI) NERVE CONDUCTION STUDIES 9-10 STUDIES Cornell Alva MD [address] [address] [facility] [place] [address] [place] [address] Referral ID Status Reason Start Date Expiration Date V isits Requested Visits Authorized [id number] Closed Auto-Generate d Referral 09/28/2023 09/27/2024 1 1 Specialty Diagnoses / Procedures Referred By Dilip rodrigez Referred To Contact Neurology / NEUROLOGY EMG Diagnoses NO SHOW DO NOT CANCEL r E LE Procedures EMG STANDARD Cornell Alva MD [address] [address] [facility] [address] [address] Referral ID Status Reason Start Date Expiration Date Visits Re quested Visits Authorized [id number] Closed 04/19/2024 07/18/2024 1 1 Reason Comments Establish Care F/u 1 month with L f emur Xr (needs OP appt)Dx: L distal femur fx. Follow-up Reason Comments Med Refill Reason Comments Pain Reason Comments Follow-up Reason Onset Date Comments Appointment 10/03/2024 6 year follow up visit Reason Onset Date Comments Physical Therapy 11/09/2024 Reason Comments Eye Exam Reason Onset Date Comments Appointment 10/21/2023 5 year follow up visit Reason Comments Follow-up 5 years sleeve follo w up Reason Comments PVD Reason Comments Post-op s/p L IMN femur / no xr / toy out. Post-op Reason Comments Establish Care 6 week f/u L Femu Follow-up Reason Comments New Patient New Patient-had dexa (s) last one 2-3 yrs ago/ Osteoporosis questionnaireassigned in [facility] Reason Comments Post-op Reason Onset Date Comments Post op clearance 01/12/2025 Reason Onset Date Comments Consult 01/15/2025 Blood management Reason Onset Date Comments Critical Lab Value 01/15/2025 Reason Comments Fall Leg Pain Specialty Diagnoses / Procedures Referred By Contac t Referred To Contact Diagnoses Closed fracture of proximal end of left tibia, unspecified fracture morphology, initial encounter Preop cardiovascular exam [facility] - Emergency Department [address] [place] [address] Phone: tel: fax: Referral ID Status Reason Start Date Expiration Date Visits Re quested Visits Authorized [id number] 1 1 Reason Comments Post-op s/p ORIF L tibia, XR D; at [facility] Post-op Reason Comments Establish Care Left tibia periprost hetic TKA fx Follow-up Reason Comments Establish Care Wound check LLE, no xrays; at [facility] Follow-up Reason Comments Establish Care X L periprosthetic p michi tibia fx, AP/LAT/INT OBLIQUE L TIBIA, LONG STANDING X IFPOSSIBLE Follow-up Reason Comments Established Patient Follow-Up Care Teams (unrecognized sec tion and content) Dietician Relationship Specialty Start Date End Date Bryant Guillen MD [address] [place] [address] PCP - General Family Medicine 10/28/23 Maryjane Deutsch NP [address] [place] [address] Nurse Practitioner Family Medicine 10/28/23 Dietician Relationship Specialty Start Date End Date Bryant Guillen MD [address] [place] [address] PCP - General Family Medicine 10/28/23 Maryjane Deutsch NP [address] [place] [address] Nurse Practitioner Family Medicine 10/28/23 Dietician Relationship Specialty Start Date End Date Javan Julien MD [facility] [place] [address] PCP - General Neurology 05/13/18 Maryjane Deutsch CNP [address] [place] [address] Referring Family Medicine 02/05/24 Dietician Relationship Specialty Start Date End Date Javan uJlien MD [facility] [place] [address] PCP - General Neurology 05/13/18 Maryjane Deutsch CNP [address] [place] [address] Referring Family Medicine 02/05/24 Dietician Relationship Specialty Start Date End Date Javan Julien MD [address] [facility] [place] [address] PCP - General Neurology 05/13/18 Maryjane Deutsch CNP [address] [place] [address] Referring Family Medicine 02/05/24 Dietician Relationship Specialty Start Date End Date Javan Julien MD [address] [facility] [place] [address] PCP - General Neurology 05/13/18 Maryjane Deutsch CNP [address] [place] [address] Referring Family Medicine 02/05/24 Dietician Relationship Specialty Start Date End Date Javan Julien MD [address] [facility] [place] [address] PCP - General Neurology 05/13/18 Maryjane Deutsch CNP [address] [place] [address] Referring Family Medicine 02/05/24 Dietician Relationship Specialty Start Date End Date Bryant Guillen MD [facility] [place] [address] PCP - General Family Medicine 11/30/23 Dietician Relationship Specialty Start Date End Date Bryant Guillen MD [facility] [place] [address] PCP - General Family Medicine 10/28/23 Maryjane Deutsch NP [facility] [place] [address] Nurse Practitioner Family Medicine 10/28/23 Dietician Relationship Specialty Start Date End Date Bryant Guillen MD [facility] [place] [address] PCP - General Family Medicine 10/28/23 Maryjane Deutsch NP [address] [place] [address] Nurse Practitioner Family Medicine 10/28/23 Dietician Relationship Specialty Start Date End Date Bryant Guillen MD [address] [place] [address] PCP - General Family Medicine 10/28/23 Maryjane Deutsch NP [address] [place] [address] Nurse Practitioner Family Medicine 10/28/23 Dietician Relationship Specialty Start Date End Date Bryant Guillen MD [address] [place] [address] PCP - General Family Medicine 10/28/23 Maryjane Deutsch NP [address] [place] [address] Nurse Practitioner Family Medicine 10/28/23 Dietician Relationship Specialty Start Date End Date Bryant Guillen MD [address] [place] [address] PCP - General Family Medicine 10/28/23 Maryjane Deutsch NP [address] [place] [address] Nurse Practitioner Family Medicine 10/28/23 Dietician Relationship Specialty Start Date End Date Bryant Guillen MD [address] [place] [address] PCP - General Family Medicine 11/30/23 Dietician Relationship Specialty Start Date End Date WonderBryant maguire MD [address] [place] [address] PCP - General Family Medicine 11/30/23 Dietician Relationship Specialty Start Date End Date WonderlyBryant MD [address] [place] [address] PCP - General Family Medicine 11/30/23 Dietician Relationship Specialty Start Date End Date WonderlyBryant MD [address] [place] [address] PCP - General Family Medicine 11/30/23 Dietician Relationship Specialty Start Date End Date Marie Mann DO [address] [facility] [place] [address] PCP - General Family Medicine 08/09/23 Dietician Relationship Specialty Start Date End Date WonderlyBryant MD [address] [place] [address] PCP - General Family Medicine 11/30/23 Dietician Relationship Specialty Start Date End Date WonderBryant maguire MD [address] [place] [address] PCP - General Family Medicine 11/30/23 Dietician Relationship Specialty Start Date End Date WonderBryant maguire MD [address] [place] [address] PCP - General Family Medicine 10/28/23 Maryjane Deutsch NP [address] [place] [address] Nurse Practitioner Family Medicine 10/28/23 Dietician Relationship Specialty Start Date End Date Bryant Guillen MD [address] [place] [address] PCP - General Family Medicine 11/30/23 Dietician Relationship Specialty Start Date End Date Marie Mann DO [address] [place] [address] PCP - General Family Medicine 08/09/23 Dietician Relationship Specialty Start Date End Date Marie Mann DO [address] [place] [address] PCP - General Family Medicine 08/09/23 Dietician Relationship Specialty Start Date End Date Marie Mann DO [address] [facility] [place] [address] PCP - General Family Medicine 08/09/23 Dietician Relationship Specialty Start Date End Date Marie Mann DO [address] [facility] [place] [address] PCP - General Family Medicine 08/09/23 Dietician Relationship Specialty Start Date End Date Bryant Guillen MD [address] [place] [address] PCP - General Family Medicine 11/30/23 Dietician Relationship Specialty Start Date End Date Bryant Guillen MD [address] [place] [address] PCP - General Family Medicine 11/30/23 Dietician Relationship Specialty Start Date End Date Bryant Guillen MD [address] [place] [address] PCP - General Family Medicine 11/30/23 Dietician Relationship Specialty Start Date End Date Bryant Guillen MD [address] [facility] [place] [address] PCP - General Family Medicine 11/30/23 Dietician Relationship Specialty Start Date End Date Bryant Guillen MD [address] [place] [address] PCP - General Family Medicine 11/30/23 Dietician Relationship Specialty Start Date End Date Bryant Guillen MD [address] [facility] [place] [address] PCP - General Family Medicine 11/30/23 Dietician Relationship Specialty Start Date End Date Bryant Guillen MD [address] [place] [address] PCP - General Family Medicine 11/30/23 Dietician Relationship Specialty Start Date End Date Bryant Guillen MD [address] [facility] [place] [address] PCP - General Family Medicine 11/30/23 Dietician Relationship Specialty Start Date End Date Bryant Guillen MD [address] [place] [address] PCP - General Family Medicine 11/30/23 Dietician Relationship Specialty Start Date End Date Maryjane Deutsch APRN-DISTRICT SERVICE MANAGER [address] [facility] [place] [address] PCP - General Nurse Practitioner 11/15/24 Dietician Relationship Specialty Start Date End Date Maryjane Deutsch APRN-DISTRICT SERVICE MANAGER [address] [place] [address] PCP - General Nurse Practitioner 11/15/24 Dietician Relationship Specialty Start Date End Date La NenaMaryjane APRN-DISTRICT SERVICE MANAGER [address] [place] [address] PCP - General Nurse Practitioner 11/15/24 Dietician Relationship Specialty Start Date End Date La NenaMaryjane freitas LEAD PROCESS ENGINEER-DISTRICT SERVICE MANAGER [address] [place] [address] PCP - General Nurse Practitioner 11/15/24 Dietician Relationship Specialty Start Date End Date Maryjane Deutsch APRN-DISTRICT SERVICE MANAGER [address] [place] [address] PCP - General Nurse Practitioner 11/15/24 Dietician Relationship Specialty Start Date End Date La NenaMaryjane freitas APRN-DISTRICT SERVICE MANAGER [address] [place] [address] PCP - General Nurse Practitioner 11/15/24 Dietician Relationship Specialty Start Date End Date La NenaMaryjane freitas APRN-DISTRICT SERVICE MANAGER [address] [place] [address] PCP - General Nurse Practitioner 11/15/24 Dietician Relationship Specialty Start Date End Date Maryjane Deutsch APRN-DISTRICT SERVICE MANAGER [address] [place] [address] PCP - General Nurse Practitioner 11/15/24 Dietician Relationship Specialty Start Date End Date Maryjane Deutsch APRN-DISTRICT SERVICE MANAGER [address] [place] [address] PCP - General Nurse Practitioner 11/15/24 Dietician Relationship Specialty Start Date End Date La NenaDestiny freitasbeshahid Multani LEAD PROCESS ENGINEER-DISTRICT SERVICE MANAGER [address] [place] [address] PCP - General Nurse Practitioner 11/15/24 Dietician Relationship Specialty Start Date End Date La NenaMaryjane freitas LEAD PROCESS ENGINEER-DISTRICT SERVICE MANAGER [address] [place] [address] PCP - General Nurse Practitioner 11/15/24 Dietician Relationship Specialty Start Date End Date Maryjane Deutsch LEAD PROCESS ENGINEER-DISTRICT SERVICE MANAGER [address] [place] [address] PCP - General Nurse Practitioner 11/15/24 Dietician Relationship Specialty Start Date End Date La NenaMaryjane freitas LEAD PROCESS ENGINEER-DISTRICT SERVICE MANAGER [address] [place] [address] PCP - General Nurse Practitioner 11/15/24 Dietician Relationship Specialty Start Date End Date La NenaMaryjane freitas LEAD PROCESS ENGINEER-DISTRICT SERVICE MANAGER [address] [place] [address] PCP - General Nurse Practitioner 11/15/24 Dietician Relationship Specialty Start Date End Date La NenaMaryjane freitas LEAD PROCESS ENGINEER-DISTRICT SERVICE MANAGER [address] [place] [address] PCP - General Nurse Practitioner 11/15/24 Dietician Relationship Specialty Start Date End Date La NenaMaryjane freitas LEAD PROCESS ENGINEER-DISTRICT SERVICE MANAGER [address] [place] [address] PCP - General Nurse Practitioner 11/15/24 Dietician Relationship Specialty Start Date End Date Maryjane Deutsch APRN-KAREN [address] [place], [place] [address] PCP - General Nurse Practitioner 11/15/24 Dietician Relationship Specialty Start Date End Date Bryant Guillen MD PCP - General Family Medicine 10/28/23 Maryjane Deutsch NP Nurse Practitioner Family Medicine 10/28/23 Dietician Relationship Specialty Start Date End Date Maryjane Deutsch APRN-KAREN PCP - General Nurse Practitioner 11/15/24 Dietician Relationship Specialty Start Date End Date Maryjane Deutsch APRN-KAREN PCP - General Nurse Practitioner 11/15/24 Dietician Relationship Specialty Start Date End Date Javan Julien MD PCP - General Neurology 05/13/18 Maryjane Deutsch CNP [address] [place] [id number] Referring Family Medicine 02/05/24 Source Comments (unrecognize d section and content) In the event this informatio n is protected by the Federal Confidentiality of Alcohol and Drug Abuse Patient Records regulations: The Federal rules restrict any use of the information to criminally investigate or prosecute any alcohol or drug abuse patient.[facility] Center[facility] the event this information is protected by the Federal Confidentiality of Alcohol and Drug Abuse Patient Records regulations: The Federal rules restrict any use of the information to criminally investigate or prosecute any alcohol or drug abuse patient.[facility] Center[facility] the event this information is protected by the Federal Confidentiality of Alcohol and Drug Abuse Patient Records regulations: The Federal rules restrict any use of the information to criminally investigate or prosecute any alcohol or drug abuse patient.[facility] Center[facility] the event this information is protected by the Federal Confidentiality of Alcohol and Drug Abuse Patient Records regulations: The Federal rules restrict any use of the information to criminally investigate or prosecute any alcohol or drug abuse patient.[facility] Center[facility] the event this information is protected by the Federal Confidentiality of Alcohol and Drug Abuse Patient Records regulations: The Federal rules restrict any use of the information to criminally investigate or prosecute any alcohol or drug abuse patient.[facility] Center[facility] the event this information is protected by the Federal Confidentiality of Alcohol and Drug Abuse Patient Records regulations: The Federal rules restrict any use of the information to criminally investigate or prosecute any alcohol or drug abuse patient.[facility] Scheduled Active and Recently Administ ered Medications (unrecognized section and content) Medication Order 01/16/2025 01/17/2025 01/18/2025 acetaminophen (TYLENOL EXTRA STRENGTH) tablet 1,000 mg 1,000 mg, oral, Every 8 hours, First dose on Gina 01/12/25 at 2310, Recommend minimized narcotics, while still providing adequate analgesia, to minimize risk of sedation and delirium. The oral route is preferred for patients tolerating oral intake without nausea and vomiting. Use IV pain medications if the oral route is ineffective for symptom control, or if patient unable to take medications orally. 0813 (Given - Provider: Jacquie Alonzo RN)1437 (Given - Provider: Jacquie Alonzo RN)2231 (Given - Provider: Tanja Weiss RN) 0635 (Given - Provider: Tanja Weiss RN)1645 (Given - Provider: Sera Singh RN)2310 (Not Given - Provider: Tanja Weiss RN - Reason: Patient/family refused) 0548 (Given - Provider: Alex Teran RN)1510 (Not Given - Provider: Lorena Palomo RN - Reason: Patient/family refused) calcium carbonate-vitamin D3 (OSCAL 500 + D) 500 mg (1,250 mg) - 200 units per tablet 1 tablet 1 tablet, oral, 2 times daily with meals, First dose on Thu01/13/25 at 0800, Look-alike/sound-alike medication - verify indication for use. Vit D3 200 IU = 5 mcg. 0817 (Given - Provider: Jacquie Alonzo RN)1652 (Given - Provider: Jacquie Alonzo RN) 0813 (Given - Provider: Richar Posadas)1644 (Given - Provider: Sera Singh RN) 1013 (Given - Provider: Lorena Palomo, GIOVANNI) calcium citrate (CALCITRATE) tablet 400 mg 400 mg, oral, 3 times daily with meals, First dose on Thu01/13/25 at 1215 0813 (Given - Provider: Jacquie Alonzo RN)1200 (Canceled Entry - Provider: Jacquie Alonzo RN)1236 (Given - Provider: Jacquie Alonzo RN)1651 (Given - Provider: Jacquie Alonzo RN)1700 (Canceled Entry - Provider: Jacquie Alonzo RN) 0814 (Given - Provider: Richar Posadas)1203 (Given - Provider: Richar Posadas)1644 (Given - Provider: Sera Singh RN) 1013 (Given - Provider: Lorena Palomo, GIOVANNI)1326 (Given - Provider: Lorena Palomo, GIOVANNI) cholecalciferol (vitamin D3) tablet 2,000 Units 2,000 Units, oral, Daily, First dose on Thu01/13/25 at 1215 0813 (Given - Provider: Jacquie Alonzo RN) 0814 (Given - Provider: Richar Posadas) 1013 (Given - Provider: Lorena Palomo, GIOVANNI) clindamycin (CLEOCIN) IVPB 900 mg/50 mL in dextrose 5% (18 mg/mL premix) (COMPLETED) 900 mg, intravenous, at 100 mL/hr, Administer over 30 Minutes, Every 8 hours, First dose on Thu01/13/25 at 2230, For 3 days, Indication: Surgical prophylaxis 0003 (Stop Bag - Provider: Arnulfo Valenzuela RN)0550 (New Bag - Provider: Arnulfo Valenzuela RN)0620 (Stop Bag - Provider: Arnulfo Valenzuela RN)1442 (New Bag - Provider: Jacquie Alonzo RN)1512 (Stop Bag - Provider: Jacquie Alonzo RN) DULoxetine (CYMBALTA) DR capsule 60 mg 60 mg, oral, Daily, First dose on Thu01/13/25 at 1215, Look-alike/sound-alike medication - verify indication for use. Swallow whole-do not crush or chew. Although the ventilated rib fitter does not recommend opening the capsule to facilitate administration, the contents of capsule may be sprinkled on applesauce or in apple juice and swallowed (without chewing) immediately; do not sprinkle contents on chocolate pudding. 0813 (Given - Provider: Jacquie Alonzo RN) 0814 (Given - Provider: Richar Posadas) 1013 (Given - Provider: Lorena Palomo, GIOVANNI) epoetin flor-epbx (RETACRIT) injection 40,000 Units (COMPLETED) 40,000 Units, subcutaneous, Daily, First dose on Thu01/16/25 at 1345, For 2 doses, Do not administer if the patient's hemoglobin is greater than 12 g/dl., Indications: anemia, anemia due to renal failure 1652 (Given - Provider: Jacquie Alonzo RN) 1645 (Given - Provider: Sera Singh RN) epoetin flor-epbx (RETACRIT) injection 40,000 Units (COMPLETED) 40,000 Units, subcutaneous, Once, On Thu01/18/25 at 1230, For 1 dose, Do not administer if the patient's hemoglobin is greater than 12 g/dl., Indications: anemia 1450 (Given - Provider: Lorena Palomo, GIOVANNI) ezetimibe (ZETIA) tablet 10 mg 10 mg, oral, Daily, First dose on Thu01/13/25 at 1215, Look-alike/sound-alike medication - verify indication for use. 0813 (Given - Provider: Jacquie Alonzo RN) 0814 (Given - Provider: Richar Posadas) 1016 (Given - Provider: Lorena Palomo, GIOVANNI) flecainide (TAMBOCOR) tablet 100 mg 100 mg, oral, Every 12 hours, First dose on Thu01/14/25 at 1415, Look-alike/sound-alike medication - verify indication for use. 0500 (Given - Provider: Arnulfo Valenzuela RN)1651 (Given - Provider: Jacquie Alonzo RN) 0635 (Given - Provider: Tanja Weiss RN)1644 (Given - Provider: Sera Singh RN) 1013 (Given - Provider: Lorena Palomo, GIOVANNI) iron sucrose (VENOFER) 100 mg in sodium chloride 0.9 % 50 mL IVPB 100 mg, intravenous, at 220 mL/hr, Administer over 15 Minutes, Daily, First dose on 01/15/25 at 1030, For 5 doses, Monitor patient for hypersensitivity reactions for at least 30 minutes after the infusion. AVOID the use of H1 antihistamines, such as diphenhydramine, as this may worsen hypersensitivity reactions. Have resuscitation equipment and medications available. 1020 (New Bag - Provider: Jacquie Alonzo RN)1035 (Stop Bag - Provider: Jacquie Alonzo RN) 0830 (New Bag - Provider: Richar Posadas)0845 (Stop Bag - Provider: Jessica Duarte RN) 0900 (Not Given - Provider: Lorena Palomo RN - Reason: Loss of IV access) metoprolol tartrate (LOPRESSOR) tablet 12.5 mg 12.5 mg, oral, 2 times daily, First dose on 01/14/25 at 1415, Hold SBP less than 110 or heart rate less than 60 Look-alike/sound-alike medication - verify indication for use. 0813 (Given - Provider: Jacquie Alonzo RN)2100 (Not Given - Provider: Tanja Weiss RN - Reason: Order parameters not met) 0813 (Given - Provider: Richar Posadas)2214 (Given - Provider: Tanja Weiss RN) 1014 (Given - Provider: Lorena Palomo, GIOVANNI) rosuvastatin (CRESTOR) tablet 5 mg 5 mg, oral, Daily, First dose on 01/15/25 at 1600, Look-alike/sound-alike medication - verify indication for use. 1437 (Given - Provider: Jacquie Alonzo RN)1600 (Return to Cabinet - Provider: Jacquie Alonzo RN) 1645 (Given - Provider: Sera Singh RN) 1600 (Not Given - Provider: Lorena Palomo RN - Reason: Patient not available) sennosides-docusate sodium (SENOKOT-S) 8.6-50 mg 2 tablet 2 tablet, oral, Nightly, First dose on Gina 17/25 at 2310 2231 (Given - Provider: Tanja Weiss RN) 220 (Given - Provider: Tanja Weiss RN) sulfamethoxazole-trimethop rim (BACTRIM,SEPTRA) 400-80 mg per tablet 1 tablet 1 tablet, oral, Every 12 hours scheduled, First dose on Thu01/16/25 at 2100, Indication: UTI 2233 (Given - Provider: Tanja Weiss RN) 0814 (Given - Provider: Richar Posadas)2214 (Given - Provider: Tanja Weiss, GIOVANNI) 1014 (Given - Provider: Lorena Palomo, GIOVANNI) traZODone (DESYREL) tablet 50 mg 50 mg, oral, Nightly, First dose on Thu01/13/25 at 2200, Look-alike/sound-alike medication - verify indication for use. 2233 (Given - Provider: Tanja Weiss RN) 2213 (Given - Provider: Tanja Weiss RN) warfarin (COUMADIN) tablet 2.5 mg 2.5 mg, oral, Daily, First dose on Thu01/18/25 at 1600, Food-Drug Interaction Education Required Look-alike/sound-alike medication - verify indication for use Avoid intake of foods with large amounts of vitamin K Enteral Feeding: If patient is on tube feedings, avoid formulas containing soy protein Transition to oral diet may require decrease in warfarin dose, Target INR: 2 - 3, Indication: Atrial fibrillation/embolism, Hold warfarin & notify prescriber if INR greater than: 3 1600 (Not Given - Provider: Lorena Palomo RN - Reason: Patient not available) PRN Medication Order 01/16/2025 01/17/2025 01/18/2025 dextrose (GLUTOSE) 40 % gel 15 g 15 g, oral, As needed, low blood sugar, blood glucose less than 70 mg/dL, Starting on Thu01/12/25 at 2304, If patient conscious and taking PO. If blood glucose is not greater than 70 mg/dL after initial treatment, repeat treatment. dextrose 50 % in water (D50W) 50% solution 25 mL 25 mL, intravenous, As needed, low blood sugar, blood glucose less than 70 mg/dL and unconscious or NPO with IV access, Starting on Gina 01/12/25 at 2304, Push over 1-3 minutes STAT. If conscious and not NPO, immediately follow with meal tray or high protein (7 grams) snack if tray not available. If NPO, initiate 5% dextrose in water at 100 mL/hr and contact prescriber for additional orders. If blood glucose is not greater than 70 mg/dL after initial treatment, repeat treatment. VESICANT (RED) Warning: HYPERTONIC solution. glucagon HCL injection 1 mg 1 mg, intramuscular, As needed, low blood sugar, blood glucose less than 70 mg/dL and unconscious or NPO without IV access., Starting on Gina 01/12/25 at 2304, If conscious and not NPO, immediately follow with meal tray or high protein (7Grams) snack if tray not available. If NPO, initiate IV 5% Dextrose/Water at 100 mL/hr and contact prescriber for additional orders. If blood glucose is not greater than 70 mg/dL after initial treatment, repeat treatment. ondansetron (PF) (ZOFRAN) injection 4 mg 4 mg, intravenous, Every 8 hours PRN, nausea, Starting on Gina 01/12/25 at 2306, Intravenous administration preferred to be given over 2-5 minutes., Intravenous Specific Administration: IV Push oxyCODONE (ROXICODONE) immediate release tablet 10 mg 10 mg, oral, Every 4 hours PRN, severe pain - pain scale 7-10, Starting on Gina 01/12/25 at 2306, For patients less than 75 years of age Recommend minimized narcotics, while still providing adequate analgesia, to minimize risk of sedation and delirium. The oral route is preferred for patients tolerating oral intake without nausea and vomiting. Use IV pain medications if the oral route is ineffective for symptom control, or if patient unable to take medications orally. Look-alike/sound-alike medication - verify indication for use. Immediate release. 2208 (Given - Provider: Tanja Weiss RN) 144 (Given - Provider: Lorena Palomo RN) oxyCODONE (ROXICODONE) immediate release tablet 5 mg 5 mg, oral, Every 4 hours PRN, mild to moderate pain - pain scale 1-6, Starting on Gina 01/12/25 at 2306, For patients less than 75 years of age Recommend minimized narcotics, while still providing adequate analgesia, to minimize risk of sedation and delirium. The oral route is preferred for patients tolerating oral intake without nausea and vomiting. Use IV pain medications if the oral route is ineffective for symptom control, or if patient unable to take medications orally. Look-alike/sound-alike medication - verify indication for use. Immediate release. 0812 (Given - Provider: Jacquie Alonzo RN)1236 (Given - Provider: Jacquie Alonzo RN) 1013 (Given - Provider: Lorena Palomo RN) sodium chloride 0.9 % infusion 20 mL/hr, intravenous, Continuous PRN, per policy for blood product transfusion, Starting on 01/15/25 at 2030, Initiate prior to blood product transfusion. Continue before and after each blood product transfusion. Discontinue upon completion of blood product transfusion(s). FOR RECORDS PERTAINING TO PATIENTS WHO ARE [...] BE BASED ON THE PRIMARY CLINICAL RECORDS. [employer] provides no warranty or guarantee of the accuracy or completeness of information in this document.
[2025-05-13 15:57] LABS: INR 2.67; Prothrombin Time 25.7 sec (9.0-11.6)
== END 2025-05-13 15:37 | disposition home or self-care (01) ==
LOC: LAB 15:36
PROVIDERS: PCP Student in an Organized Health Care Education/Training Program; Visit Provider Student in an Organized Health Care Education/Training Program
DX: Z79.01 Long term (current) use of anticoagulants (principal)
CPT/HCPCS: 36415; 85610